=== PATIENT | female | born 1940 | race Caucasian/White ===

== ENCOUNTER → 2016-05-06 | Outpatient (CLI) | payer OTHER ==
[~2016-05-06] MED LIST: ASPCH81; ASPI81TA28 PO; ATOR-22 PO; ATOR10TA88 PO; CALC1TAB9 PO; CITA20TA9 PO; CITA40TA12 PO; CLOP1TAB54 PO; CYAN3INJ INJ; CYNI1000 INJ; FERR1TAB13 PO; FRRS300 PO; IMD/2 PO; IMDSR30 PO; INSDGI; INSDGIPEN SC; LEVO50TA PO; LEVO50TA6 PO; LOPE1TAB25 PO; LPT/20 PO; NITR0.4S UT; PEDICHW44 PO; PEDICHW50 PO; PRT40 PO; SENN-65 PO; TPRSR25 PO; TRMCR180 TD; VNTHFA/IN INH; [UNRECOGNIZED DRUG - MIXTURE] PO; [UNRECOGNIZED DRUG - OTHER] PO
--- NOTE | 2016-05-06 15:59 | MAMMOGRAPHY REPORT ---
BILATERAL DIGITAL SCREENING MAMMOGRAM WITH CAD: 05/06/2016 CLINICAL HISTORY: Routine screening. Patient has no complaints. TECHNIQUE: Bilateral CC and MLO views were obtained. Current study was also evaluated with a Comput er Aided Detection (CAD) system. COMPARISON: Comparison is made to exams dated: 01/05/2013 mammogram, 01/01/2011 mammogram, 01/05/20 12 mammogram, 12/26/2009 mammogram - [facility], 12/25/2008, and 12/23/2007. BREAST COMPOSITION: The tissue of both breasts is heterogeneously dense, which may obscure small ma sses. FINDINGS: There are diffuse moderate vascular calcifications, rodlike secretory calcifications and b enign coarse calcifications in the breasts. A 4 mm nodular asymmetry in the slightly medial posteri or right breast on the CC view is unchanged in size dating back to at least 12/21/2006, therefore li monica benign. No new suspicious mass, architectural distortion or cluster of microcalcifications is seen. IMPRESSION: ACR BI-RADS CATEGORY 1: NEGATIVE There is no mammographic evidence of malignancy. A 1 year screening mammogram is recommended. The p atient will receive written notification of the results. Approximately 10% of breast cancers are not detected with mammography. A negative mammographic repor t should not delay biopsy if a clinically suggestive mass is present. Suyapa Mcduffie M.D. ay/:05/06/2016 13:47:21 Bag Maker: Aye BENTON)(Hay), [facility] letter sent: Normal 1/2 BI-RADS Code: ACR BI-RADS Category 1: Negative
== END | disposition home or self-care (01) ==
LOC: C.MAMM 09:00
PROVIDERS: ATTEND Family Medicine
DX: Z12.31 Encounter for screening mammogram for malignant neoplasm of breast (principal)

== ENCOUNTER 2016-05-11 11:57 | Emergency (ER) | payer OTHER ==
[~2016-05-11] VITALS: Ht 162.6 cm; Wt 80.0 kg
[~2016-05-11 11:57] MED LIST changes: -ASPI81TA28 PO; -ATOR-22 PO; -ATOR10TA88 PO; -CALC1TAB9 PO; -CITA20TA9 PO; -CYNI1000 INJ; -FERR1TAB13 PO; -IMD/2 PO; -IMDSR30 PO; -INSDGIPEN SC; -LEVO50TA6 PO; -PEDICHW44 PO; -PRT40 PO; -TPRSR25 PO; -TRMCR180 TD; -[UNRECOGNIZED DRUG - OTHER] PO
[2016-05-11 12:05] VITALS: TEMP 36.5; Ht 162.6 cm; Wt 80.0 kg
[2016-05-11 12:38] LABS: BASO ABS # 0.03 K/uL (0-0.2); COMPLETE YES; HEMATOCRIT 35.1 % (37-47); IG% 0.3 %; LYMPH % 26.9 %; MEAN CELL VOLUME 91.4 fL (80-100); MEAN CORPUSCULAR HEMOGLOBIN 30.2 pg (25-34); MEAN PLATELET VOLUME 10.5 fL (7.4-10.4); MONO % 10.1 %; NEUT % 58.7 %; PLATELET COUNT 167 K/uL (130-400); RED BLOOD COUNT 3.84 M/uL (4.2-5.4); WHITE BLOOD COUNT 2.97 K/uL (4.8-10.8)
[2016-05-11] MEDS ORDERED: SODIUM CHLORIDE 0.9% 1000ML 1,000 ML IV STA (12:48)
[2016-05-11] MEDS ORDERED: SODIUM CHLORIDE 0.9% 1000ML 250 ML IV STA (12:48)
[2016-05-11 12:52] LABS: BUN/CREATININE RATIO 16.5 (10-20); CALCIUM 8.6 mg/dl (8.5-10.1); CREATININE 0.98 mg/dl (0.60-1.20); POTASSIUM 4.1 mmol/L (3.5-5.1)
[2016-05-11 13:02] LABS: ALB/GLOB RATIO 1.1 (0.9-2); CKMB/CK RATIO 0.4 (0-3.0); THYROID STIMULATING HORMONE 3.19 uIu/ml (0.300-4.500)
--- NOTE | 2016-05-11 13:17 | DIAGNOSTIC IMAGING REPORT ---
HEAD CT NONCONTRAST CT DOSE: 537.48 mGy.cm HISTORY: WEAKNESS TECHNIQUE: Multiaxial CT images of the head were performed without the use of intravenous contrast. Automated exposure control was utilized for this study. Comparison: Head CT 04/24/2015. Findings: The paranasal sinuses and mastoid air cells are clear. The calvarium and skull base are intact. There is no mass, hematoma, midline shift, acute infarct. White matter hypodensity is nonspecific but suggestive of microvascular ischemic change. The ventricles and sulci demonstrate mild age-related involutional changes. Impression: No significant change compared to the prior study. No acute intracranial abnormality. Electronically signed by: Carmine Adan M.D. 05/11/2016 1:16 PM Dictated Date/Time: 05/11/2016 1:14 PM
[2016-05-11] MEDS ORDERED: INSDGIPEN SC (13:26)
[2016-05-11] MEDS ORDERED: ASPI81TA28 PO (13:26)
[2016-05-11] MEDS ORDERED: CYNI1000 INJ (13:27)
--- NOTE | 2016-05-11 13:31 | DIAGNOSTIC IMAGING REPORT ---
CHEST ONE VIEW PORTABLE HISTORY: weakness COMPARISON: Chest 07/01/2015. FINDINGS: The lungs are clear. Cardiac silhouette is normal in size. No pleural effusions. No pneumothorax. IMPRESSION: No acute process. Electronically signed by: Carmine Adan M.D. 05/11/2016 1:29 PM Dictated Date/Time: 05/11/2016 1:28 PM
[2016-05-11 14:39] LABS: URINE APPEARANCE CLEAR (CLEAR); URINE BILIRUBIN NEG (NEG); URINE COLOR YELLOW; URINE EPITHELIAL CELL AUTO 20-30 /lpf (0-5); URINE NITRITE NEG (NEG); URINE PH 6.5 (4.5-7.5); URINE SPECIFIC GRAVITY 1.011 (1.000-1.030); UROBILINOGEN NEG (NEG); ZZUR CULT IF INDIC CLEAN CATCH NO
[2016-05-11 14:41] LABS: MANUAL MICROSCOPIC REQUIRED? NO; REVIEW REQ? NO
[2016-05-11 16:02] VITALS: BP 162/78; PULSE 66; O2SAT 99
--- NOTE | 2016-05-11 21:25 | EMERGENCY ROOM VISIT NOTE ---
History Report prepared by Gerry: Brunilda Hancock Under the Supervision of: Dr. Zuhair Ybarra M.D. First contact with patient: 12:39 Chief Complaint: STROKE SYMPTOMS Stated Complaint: POSSIBLE MINI STROKE A WEEK AGO, NOT FEELING WELL Nursing Triage Summary: "I think I had a mini stroke last week, I had them in the past. I have poor vision every day. I feel weak all over and lack of appetite." When asked what changed that she came today, pt pointed to her son. "I have just been blah this week and lightheaded. Denies being exposed to anyone diagnosed with the flu History of Present Illness The patient is a 75 year old female who presents to the Emergency Room with complaints of persistent lightheadedness starting 1 week [employer]. The patient states that over the last week she has felt generally weak with weakness in her hands which she states are hard to move. The patient states that she thinks she may have had another mini-stroke which she has had in the past. The patient states that she has heart problems and has coronary stents. The patient denies any chest pain and states she has never had any chest pain with her mini- strokes in the past. The patient states that she also has diabetes. The patient denies any vomiting, headache, recent falls, urinary symptoms, abdominal pain, or any recent changes in her medication. The patient states that she does have history of anemia and takes an iron supplement daily. 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 Review of Systems See HPI for pertinent positives & negatives. A total of 10 systems reviewed and were otherwise negative. Past Medical & Surgical Medical Problems: (1) Aortic root dilatation (2) Asthma (3) CAD (coronary artery disease) (4) Depression (5) DM type 2 (diabetes mellitus, type 2) (6) Dyslipidemia (7) Hypothyroidism (8) HOMERO (iron deficiency anemia) (9) Macular degeneration (10) MDS (myelodysplastic syndrome) (11) Mild aortic stenosis Surgical Problems: (1) History of angioplasty (2) History of arthroscopy of knee (3) History of arthroscopy of shoulder (4) History of cholecystectomy (5) History of gastric bypass (6) History of incisional hernia repair (7) History of partial hysterectomy (8) History of tonsillectomy (9) Repair arm tendon Old medical records were reviewed. Nurse's notes were reviewed and I agree with. Family History Diabetes mellitus FH: heart disease FHx: cancer FHx: gallbladder disease Hypertension Social History Smoking Status: Never Smoker Alcohol Use: none Drug Use: none Marital Status: Housing Status: lives with family Occupation Status: retired Current/Historical Medications Scheduled Aspirin (Aspirin Ec), 81 MG PO DAILY Atorvastatin (Atorvastatin Calcium), 20 MG PO DAILY Citalopram Hydrobromide (Celexa), 20 MG PO DAILY Clopidogrel Bisulfate (Plavix), 75 MG PO DAILY Cyanocobalamin (Cyanocobalamin), 1 ML INJ MONTHLY Ferrous Sulfate (Ferrous Sulfate), 1 TAB PO DAILY Insulin Glargine (Lantus Solostar), 16 UNITS SC DAILY Levothyroxine Sodium (Synthroid), 50 MCG PO DAILYBB Nitroglycerin (Nitrostat), 0.4 MG UT PRN Pediatric Multiple Vitamin W/ (Flintstones Chewable), 2 TAB PO QAM Senna/Docusate Sod (Senokot S), 2 TAB PO QAM Scheduled PRN Albuterol Hfa (Ventolin Hfa), 2 PUFFS INH Q4 PRN for SOB/Wheezing Loperamide Hcl (Loperamide Hcl), 1 TAB PO DAILY PRN for Diarrhea Allergies Coded Allergies: Adhesives (Verified Allergy, Unknown, ADHESIVE TAPE, 12/15/11) Physical Exam Vital Signs Date Time Temp Pulse Resp B/P Pulse Ox O2 Delivery O2 Flow Rate FiO2 05/11/16 16:02 66 18 162/78 99 05/11/16 14:08 78 18 157/88 97 Room Air 05/11/16 13:15 73 05/11/16 13:10 67 20 154/76 99 Room Air 05/11/16 12:05 36.5 66 16 124/72 98 Room Air Physical Exam General: Well developed well nourished non ill appearing older female in no acute distress, breathing comfortably on room air. Normal speech HEENT: Normal cephalic atraumatic. Pupils are equal round and reactive to light. Extraocular movements are intact. Oropharynx is pink with moist mucous membranes. No swelling of the mouth lips or tongue. Neck: Supple with a midline trachea. No meningeal signs or stiffness, no JVD or bruits. No Stridor. Chest: Clear to auscultation bilaterally. No wheezes or rhonchi. No increased work of breathing. Heart: regular rate and rhythm. Abdomen: Soft nontender, nondistended without rebound guarding or rigidity. Extremities: No cyanosis clubbing or edema. No calf tenderness or assymetry Spine/Back. Non tender to palpation. No CVA tenderness Skin: Good turgor without rashes. Neurologic exam: Cranial nerves two through 12 are intact. Motor and sensation are intact and symmetrical throughout. Medical Decision & Procedures ER Provider Diagnostic Interpretation: CT results as stated below per my review and radiologist interpretation: HEAD CT NONCONTRAST CT DOSE: 537.48 mGy.cm HISTORY: WEAKNESS TECHNIQUE: Multiaxial CT images of the head were performed without the use of intravenous contrast. Automated exposure control was utilized for this study. Comparison: Head CT 04/24/2015. Findings: The paranasal sinuses and mastoid air cells are clear. The calvarium and skull base are intact. There is no mass, hematoma, midline shift, acute infarct. White matter hypodensity is nonspecific but suggestive of microvascular ischemic change. The ventricles and sulci demonstrate mild age-related involutional changes. Impression: No significant change compared to the prior study. No acute intracranial abnormality. Electronically signed by: Carmine Adan M.D. 05/11/2016 1:16 PM Dictated Date/Time: 05/11/2016 1:14 PM X-ray results as stated below per interpretation by me and the radiologist: CHEST ONE VIEW PORTABLE HISTORY: weakness COMPARISON: Chest 07/01/2015. FINDINGS: The lungs are clear. Cardiac silhouette is normal in size. No pleural effusions. No pneumothorax. IMPRESSION: No acute process. Electronically signed by: Carmine Adan M.D. 05/11/2016 1:29 PM Dictated Date/Time: 05/11/2016 1:28 PM Laboratory Results 05/11/16 12:25 Red Blood Count 3.84, Mean Corpuscular Volume 91.4, Mean Corpuscular Hemoglobin 30.2, Mean Corpuscular Hemoglobin Concent 33.0, Mean Platelet Volume 10.5, Neutrophils (%) (Auto) 58.7, Lymphocytes (%) (Auto) 26.9, Monocytes (%) (Auto) 10.1, Eosinophils (%) (Auto) 3.0, Basophils (%) (Auto) 1.0, Neutrophils # (Auto ) 1.74, Lymphocytes # (Auto) 0.80, Monocytes # (Auto) 0.30, Eosinophils # (Auto ) 0.09, Basophils # (Auto) 0.03 05/11/16 12:25 Test 05/11/16 12:21 05/11/16 12:25 05/11/16 12:32 05/11/16 14:10 Bedside Glucose 207 mg/dl (70-90) White Blood Count 2.97 K/uL (4.8-10.8) Red Blood Count 3.84 M/uL (4.2-5.4) Hemoglobin 11.6 g/dL (12.0-16.0) Hematocrit 35.1 % (37-47) Mean Corpuscular Volume 91.4 fL (80-100) Mean Corpuscular Hemoglobin 30.2 pg (25-34) Mean Corpuscular Hemoglobin Concent 33.0 g/dl (32-36) Platelet Count 167 K/uL (130-400) Mean Platelet Volume 10.5 fL (7.4-10.4) Neutrophils (%) (Auto) 58.7 % Lymphocytes (%) (Auto) 26.9 % Monocytes (%) (Auto) 10.1 % Eosinophils (%) (Auto) 3.0 % Basophils (%) (Auto) 1.0 % Neutrophils # (Auto) 1.74 K/uL (1.4-6.5) Lymphocytes # (Auto) 0.80 K/uL (1.2-3.4) Monocytes # (Auto) 0.30 K/uL (0.11-0.59) Eosinophils # (Auto) 0.09 K/uL (0-0.5) Basophils # (Auto) 0.03 K/uL (0-0.2) RDW Standard Deviation 43.9 fL (36.4-46.3) RDW Coefficient of Variation 13.2 % (11.5-14.5) Immature Granulocyte % (Auto) 0.3 % Immature Granulocyte # (Auto) 0.01 K/uL (0.00-0.02) Anion Gap 6.0 mmol/L (3-11) Est Creatinine Clear Calc Drug Dose 49.2 ml/min Estimated GFR () 64.5 Estimated GFR (Non- 55.6 BUN/Creatinine Ratio 16.5 (10-20) Calcium Level 8.6 mg/dl (8.5-10.1) Total Bilirubin 0.3 mg/dl (0.2-1) Aspartate Amino Transf (AST/SGOT) 16 U/L (15-37) Alanine Aminotransferase (ALT/SGPT) 16 U/L (12-78) Alkaline Phosphatase 76 U/L (45-117) Total Creatine Kinase 314 U/L (26-192) Creatine Kinase MB 1.3 ng/ml (0.5-3.6) Creatine Kinase MB Ratio 0.4 (0-3.0) Troponin I < 0.015 ng/ml (0-0.045) Total Protein 6.6 gm/dl (6.4-8.2) Albumin 3.5 gm/dl (3.4-5.0) Globulin 3.1 gm/dl (2.5-4.0) Albumin/Globulin Ratio 1.1 (0.9-2) Thyroid Stimulating Hormone (TSH) 3.190 uIu/ml (0.300-4.500) Influenza Type A Antigen Neg for Influ A (NEG) Influenza Type B Antigen Neg for Influ B (NEG) Urine Color YELLOW Urine Appearance CLEAR (CLEAR) Urine pH 6.5 (4.5-7.5) Urine Specific [place] 1.011 (1.000-1.030) Urine Protein NEG (NEG) Urine Glucose (UA) NEG (NEG) Urine Ketones NEG (NEG) Urine Occult Blood NEG (NEG) Urine Nitrite NEG (NEG) Urine Bilirubin NEG (NEG) Urine Urobilinogen NEG (NEG) Urine Leukocyte Esterase SMALL (NEG) Urine WBC (Auto) 5-10 /hpf (0-5) Urine RBC (Auto) 0-4 /hpf (0-4) Urine Hyaline Casts (Auto) 0 /lpf (0-5) Urine Epithelial Cells (Auto) 20-30 /lpf (0-5) Urine Bacteria (Auto) NEG (NEG) Laboratory studies as stated above per my review. Medications Administered Medications (Trade) Dose Ordered Sig/Arlin Route Start Time Stop Time Status Last Admin Dose Admin Sodium Chloride 250 ml @ 999 mls/hr Q16M STAT IV 05/11/16 12:48 05/11/16 13:03 DC 05/11/16 12:55 999 MLS/HR Sodium Chloride (Nss 1000ml) 1,000 ml @ 100 mls/hr Q10H STAT IV 05/11/16 12:48 05/11/16 16:52 DC 05/11/16 13:21 100 MLS/HR ECG Indication: weakness Rate (beats per minute): 62 Rhythm: sinus with SA Findings: 1st degree AV block, other (Non speicfiic intraventricular delay) Comparison ECG Date: July 02, 2015 Change: no significant change ED Course 1241: Past medical records reviewed. The patient was evaluated in room B3B, and a complete history and physical examination were performed. 1248: Ordered Sodium Chloride 1,000 ml @ 100 mls/hr IV, Sodium Chloride 250 ml @ 999 mls/hr IV 1324: I reevaluated the patient and she was resting comfortably. 1510: Upon reevaluation, the patient is resting comfortably. I discussed the results and treatment plan with Her. She verbalized agreement of the treatment plan. The patient was discharged home. Medical Decision Differentials include, but are not limited to; CVA, acute coronary syndrome, arrhythmia, diabetic emergency, influenza, UTI, electrolyte or metabolic abnormality. This patient comes in as described above. She was placed in room B3. She is here for treatment and evaluation of generalized not feeling well for about a week. She has no focal symptoms. She has a normal neurologic exam. She is well-appearing and has stable vital signs. She's had no chest pain or shortness breath. She's had no bowel or bladder problems. She has nothing to suggest infection or sepsis. IV access established was gently hydrated . She had extensive workup done including imaging blood work and urine. She has nothing to suggest acute cardiac event. Her EKG is unchanged . Her symptoms are atypical for cardiac disease and she has no elevation of her troponin. She' s no acute electrolyte or metabolic abnormalities. She's not significantly anemic. She's had nothing to suggest a UTI. She has nothing to suggest CVA. Influenza was negative. It could be a viral illness. I talked about the patient and her son at length and she strongly desires to go home. I think this is reasonable with close follow-up with her doctor. She should rest and drink plenty of fluids. Return if: Fever, numbness or weakness that is different or focal, chest pain, shortness of breath, fever chills, any new problems concerns. She was happy with the plan and discharged to home. Impression Primary Impression: Weakness Scribe Attestation The scribe's documentation has been prepared under my direction and personally reviewed by me in its entirety. I confirm that the note above accurately reflects all work, treatment, procedures, and medical decision making performed by me. Departure Information Dispostion Home / Self-Care Referrals Luis Pichardo M.D. (PCP) Forms HOME CARE DOCUMENTATION FORM, IMPORTANT VISIT INFORMATION Patient Instructions My [facility] Additional Instructions Rest Drink plenty of fluids REturn if: worsening of symptoms, increasing pain, shortness of breath, any new problems or concerns Follow-up with your doctor tommorrow for recheck
[2016-11-22] MEDS ORDERED: PRT40 PO (13:46)
[2016-11-22] MEDS ORDERED: TPRSR25 PO (13:46)
[2016-11-22] MEDS ORDERED: IMDSR30 PO (13:46)
[2016-11-22] MEDS ORDERED: TRMCR180 TD (15:13)
== END 2016-05-11 16:14 | disposition home or self-care (01) ==
LOC: C.EDB 11:59
DX: R53.1 Weakness (principal); J45.909 Unspecified asthma, uncomplicated; I25.10 Atherosclerotic heart disease of native coronary artery without angina pectoris; E11.9 Type 2 diabetes mellitus without complications; E78.5 Hyperlipidemia, unspecified; E03.9 Hypothyroidism, unspecified; D50.9 Iron deficiency anemia, unspecified; H35.30 Unspecified macular degeneration; D46.9 Myelodysplastic syndrome, unspecified; I35.0 Nonrheumatic aortic (valve) stenosis; Z83.3 Family history of diabetes mellitus; Z80.9 Family history of malignant neoplasm, unspecified; Z83.79 Family history of other diseases of the digestive system; Z82.49 Family history of ischemic heart disease and other diseases of the circulatory system; Z79.82 Long term (current) use of aspirin; Z79.02 Long term (current) use of antithrombotics/antiplatelets; Z79.4 Long term (current) use of insulin; Z79.899 Other long term (current) drug therapy

== ENCOUNTER → 2016-06-03 | Outpatient (CLI) | payer OTHER ==
[~2016-06-03] MED LIST changes: -ASPCH81; +ASPI81TA28 PO; +ATOR-22 PO; +ATOR10TA88 PO; +CALC1TAB9 PO; +CITA20TA9 PO; -CYAN3INJ INJ; +CYNI1000 INJ; +FERR1TAB13 PO; +IMD/2 PO; +IMDSR30 PO; -INSDGI; +INSDGIPEN SC; +LEVO50TA6 PO; +PEDICHW44 PO; +PRT40 PO; +TPRSR25 PO; +TRMCR180 TD; -[UNRECOGNIZED DRUG - MIXTURE] PO; +[UNRECOGNIZED DRUG - OTHER] PO
[2016-06-03 12:39] LABS: ALKALINE PHOSPHATASE 81 U/L (45-117); ALT/SGPT 17 U/L (12-78); AST/SGOT 18 U/L (15-37); BLOOD UREA NITROGEN 21 mg/dl (7-18); CARBON DIOXIDE 28 mmol/L (21-32); CHLORIDE 109 mmol/L (98-107); CREATININE 0.95 mg/dl (0.60-1.20); GLUCOSE 81 mg/dl (70-99); HDL CHOLESTEROL 66 mg/dl; SODIUM 142 mmol/L (136-145)
[2016-06-03 12:40] LABS: ALB/GLOB RATIO 1.1 (0.9-2); CHOLESTEROL 123 mg/dl (0-200); CHOLESTEROL/HDL RATIO 1.9; LDL CHOLESTEROL CALCULATED 43 mg/dl; TRIGLYCERIDES 70 mg/dl (0-150); VERY LOW DENSITY LIPOPROT CALC 14 mg/dl
[2016-06-03 12:55] LABS: ESTIMATED AVERAGE GLUCOSE 171 mg/dl; HA1C FLAG Normal (Normal)
== END | disposition home or self-care (01) ==
LOC: C.LABPVFM 08:55
PROVIDERS: ATTEND Family Medicine
DX: E11.9 Type 2 diabetes mellitus without complications (principal)

== ENCOUNTER → 2016-10-18 | Outpatient (CLI) | payer OTHER ==
[2016-10-18 13:14] LABS: HEMATOCRIT 35.1 % (37-47); MEAN CELL VOLUME 91.9 fL (80-100); MEAN CORPUSCULAR HEMOGLOBIN 28.8 pg (25-34); MEAN CORPUSCULAR HGB CONC 31.3 g/dl (32-36); MEAN PLATELET VOLUME 10.4 fL (7.4-10.4); PLATELET COUNT 189 K/uL (130-400); RED BLOOD COUNT 3.82 M/uL (4.2-5.4); WHITE BLOOD COUNT 3.85 K/uL (4.8-10.8)
[2016-10-18 13:22] LABS: ESTIMATED AVERAGE GLUCOSE 154 mg/dl; HA1C FLAG Normal (Normal)
[2016-10-18 13:28] LABS: ALT/SGPT 17 U/L (12-78); BLOOD UREA NITROGEN 18 mg/dl (7-18); BUN/CREATININE RATIO 17.9 (10-20); CARBON DIOXIDE 30 mmol/L (21-32); CHLORIDE 103 mmol/L (98-107); CHOLESTEROL 136 mg/dl (0-200); GLUCOSE 82 mg/dl (70-99); POTASSIUM 3.8 mmol/L (3.5-5.1); SODIUM 138 mmol/L (136-145); TRIGLYCERIDES 67 mg/dl (0-150); VERY LOW DENSITY LIPOPROT CALC 13 mg/dl
[2016-10-18 13:32] LABS: ALB/GLOB RATIO 1.1 (0.9-2); ALKALINE PHOSPHATASE 88 U/L (45-117); AST/SGOT 22 U/L (15-37); CHOLESTEROL/HDL RATIO 2.2; FERRITIN 90.5 ng/ml (8.0-388.0); HDL CHOLESTEROL 62 mg/dl; LDL CHOLESTEROL CALCULATED 61 mg/dl; TOTAL IRON BINDING CAPACITY 272 mcg/dl (250-450)
== END | disposition home or self-care (01) ==
LOC: C.LABPVFM 08:03
PROVIDERS: ATTEND Family Medicine
DX: E11.9 Type 2 diabetes mellitus without complications (principal); D50.9 Iron deficiency anemia, unspecified; Z13.6 Encounter for screening for cardiovascular disorders

== ENCOUNTER 2016-11-19 09:18 | Inpatient (IN) | payer OTHER ==
[~2016-11-19] VITALS: Ht 160 cm; Wt 81.9 kg
[~2016-11-19 09:18] MED LIST changes: -ATOR-22 PO; -ATOR10TA88 PO; -CALC1TAB9 PO; -CITA20TA9 PO; -FERR1TAB13 PO; -IMD/2 PO; -IMDSR30 PO; -LEVO50TA6 PO; -PEDICHW44 PO; -PRT40 PO; -TPRSR25 PO; -TRMCR180 TD; -[UNRECOGNIZED DRUG - OTHER] PO
[2016-11-19] MEDS ORDERED: ASPIRIN 81 MG CHEW PO STA (09:58)
[2016-11-19] MEDS: NITROGLYCERIN 0.4 MG SL PER TAB CHARGE SL PRN ×2 (10:09→10:21)
--- NOTE | 2016-11-19 10:13 | DIAGNOSTIC IMAGING REPORT ---
CHEST ONE VIEW PORTABLE CLINICAL HISTORY: Chest Pain dyspnea COMPARISON STUDY: 05/11/2016 FINDINGS: The bones soft tissues and hemidiaphragms are normal. The cardiomediastinal silhouette is normal. The lungs are clear. The pulmonary vasculature is normal. IMPRESSION: Negative chest. The above report was generated using voice recognition software. It may contain grammatical, syntax or spelling errors. Electronically signed by: Gamaliel Garay M.D. 11/19/2016 10:12 AM Dictated Date/Time: 11/19/2016 10:11 AM
[2016-11-19 10:23] LABS: BASO % 0.6 %; BASO ABS # 0.02 K/uL (0-0.2); COMPLETE YES; EOS % 1.9 %; HEMATOCRIT 33.6 % (37-47); IG% 0.3 %; LYMPH ABS # 0.78 K/uL (1.2-3.4); MEAN CELL VOLUME 91.8 fL (80-100); MEAN CORPUSCULAR HEMOGLOBIN 29.2 pg (25-34); MEAN CORPUSCULAR HGB CONC 31.8 g/dl (32-36); MEAN PLATELET VOLUME 9.9 fL (7.4-10.4); MONO % 9.3 %; NEUT % 62.9 %; PLATELET COUNT 156 K/uL (130-400); RED BLOOD COUNT 3.66 M/uL (4.2-5.4); WHITE BLOOD COUNT 3.12 K/uL (4.8-10.8)
[2016-11-19] MEDS ORDERED: [UNRECOGNIZED DRUG - OTHER] PO (10:51)
[2016-11-19 10:53] LABS: BLOOD UREA NITROGEN 20 mg/dl (7-18); CALCIUM 9.1 mg/dl (8.5-10.1); CARBON DIOXIDE 29 mmol/L (21-32); CHLORIDE 109 mmol/L (98-107); CREATININE 0.87 mg/dl (0.60-1.20); GLUCOSE 155 mg/dl (70-99); SODIUM 142 mmol/L (136-145)
[2016-11-19] MEDS ORDERED: FERR1TAB13 PO (10:56)
[2016-11-19] MEDS ORDERED: CITA20TA9 PO (10:56)
[2016-11-19] MEDS ORDERED: ATOR-22 PO (10:56)
[2016-11-19] MEDS ORDERED: LEVO50TA6 PO (10:56)
[2016-11-19 10:58] LABS: CKMB/CK RATIO 0.4 (0-3.0)
[2016-11-19] MEDS ORDERED: OPTIRAY 320 IV PRN (11:15)
[2016-11-19 11:37] VITALS: BP 120/63; PULSE 61; TEMP 36.8; O2SAT 100; Ht 160 cm; Wt 81.9 kg
--- NOTE | 2016-11-19 11:54 | DIAGNOSTIC IMAGING REPORT ---
CHEST CTA for PULMONARY ARTERIES CT DOSE: 279.79 mGy.cm HISTORY: Mid chest pain. Short of breath. TECHNIQUE: Multiaxial CT images of the chest were performed following the intravenous administration of contrast to evaluate the pulmonary arteries. Maximal intensity projection images were also obtained. A dose lowering technique was utilized adhering to the principles of ALARA. COMPARISON STUDY: Chest 11/19/2016. Chest CTA 04/09/2012. FINDINGS: The ascending thoracic aorta measures up to 4.2 cm in diameter, unchanged. Study is an adequate to evaluate for a dissection due to the lack of contrast within the aorta. Focal mild stenosis within the proximal right subclavian artery due to the calcified plaque. This remains unchanged. No filling defects within the pulmonary arteries to suggest pulmonary embolus. The heart is mildly enlarged. Mitral annulus calcifications. Postoperative changes at the esophagogastric junction there is persistent moderate dilatation of the esophagus which is fluid-filled. This has slightly progressed. Visualized liver and spleen are unremarkable. No mediastinal or hilar lymphadenopathy. No pneumothorax. The central airways are patent. The lungs are essentially clear. IMPRESSION: 1. No evidence for pulmonary embolus. 2. No focal lung consolidations. 3. Postsurgical changes at the esophagogastric junction with a fluid-filled and distended esophagus. This has slightly progressed. 4. 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 Electronically signed by: Carmine Adan M.D. 11/19/2016 11:53 AM Dictated Date/Time: 11/19/2016 11:27 AM
[2016-11-19] MEDS ORDERED: NITROGLYCERIN 0.4 MG SL PER TAB CHARGE SL PRN (12:15)
[2016-11-19] MEDS ORDERED: ACETAMINOPHEN 325 MG TAB PO PRN (12:15)
[2016-11-19] MEDS ORDERED: ONDANSETRON INJ 2 MG/ML 2 ML VIAL IV PRN (12:15)
[2016-11-19] MEDS ORDERED: FENTANYL CITRATE INJ 50 MCG/1 ML 2 ML VIAL IV STA (12:18)
[2016-11-19] MEDS ORDERED: GLUCAGON FOR INJ 1 MG VIAL SQ PRN (13:00)
[2016-11-19] MEDS ORDERED: GI COCKTAIL PO ONE (13:00)
[2016-11-19] MEDS ORDERED: DEXTROSE 50% 50 ML SYR IV PRN (13:00)
[2016-11-19] MEDS ORDERED: GLUCOSE 10 TABS/TUBE PO PRN (13:00)
[2016-11-19] MEDS ORDERED: GLUCOSE 40% GEL 15 GM TUBE PO PRN (13:00)
[2016-11-19] MEDS ORDERED: CITA40TA12 PO (13:05)
[2016-11-19] MEDS ORDERED: ATOR10TA88 PO (13:05)
[2016-11-19] MEDS ORDERED: IMD/2 PO (13:05)
[2016-11-19] MEDS ORDERED: CALC1TAB9 PO (13:05)
[2016-11-19] MEDS ORDERED: PEDICHW44 PO (13:05)
[2016-11-19] MEDS ORDERED: IV FLUIDS COMPLETED PRN (14:00)
--- NOTE | 2016-11-19 14:00 | Gastrointestinal Consultation ---
Gastrointestinal Consultation Date of Consultation: Nov 19, 2016 Attending Physician: Bob Hackett Consulting Physician: Kendell Simms Reason for Consultation: Dilated fluid filled esophagus History of Present Illness Patient is a 75 year old female w PMHx of CAD s/p RCA stent placement in 1995, atherectomy and RCA stent in 2011, AZALIA to mid LAD in 2011, chronic diastolic dysfunction, mild , mild mitral stenosis, HTN, hyperlipidemia, DM II, hypothyroidism, iron deficiency anemia, mac degeneration, MDS, who was referred by her [employer] Roofer Helper (Dr. Luis Pichardo) for evaluation of chest pain, and SOB. She had been having mid pressure like chest pain for 3-4 days, associated w DAVILA , and dyspnea at rest as well. Denies radiation of the pain. Denies any associated diaphoresis, palpitation, light headedness, dizziness. States was waiting to see Dr. Pichardo today, when EKG done in office was noted to be grossly unremarkable she was referred to ED for further eval. VS stable. Her labs showed anemia w Hgb 10.6 which is close to her baseline. CMP showed elevated total CK, negative troponin, normal CK-MB. D dimer elevated. CXR negative. Chest/Thorax CTA: 1. No evidence for pulmonary embolus. 2. No focal lung consolidations. 3. Postsurgical changes at the esophagogastric junction with a fluid-filled and distended esophagus. This has slightly progressed. 4. 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 Pt has hx of gastric bypass over 11 yrs ago, denies any hx of complications from the surgery nor any hx of PUD, GI bleeding. Pt denies any s/s of dysphagia , odynophagia, n/v, reflux symptoms, abd pain, changes in her BM habits. Last meal this AM - solids. Last BM also this AM. Past Medical/Surgical History Medical Problems: (1) Closed head injury Status: Acute Past Medical History: See above Past Surgical History: See HPI; also hx of arthroscopy of knee, shoulder, cholecystectomy, incisional hernia repair, partial hysterectomy, tonsillectomy, arm tendon repair. Family History Diabetes mellitus FH: heart disease FHx: cancer FHx: gallbladder disease Hypertension Social History Smoking Status: Never Smoker Alcohol Use: none Drug Use: none Marital Status: Housing Status: lives with family Occupation Status: retired Allergies Coded Allergies: Adhesives (Verified Allergy, Unknown, ADHESIVE TAPE, 11/19/16) Current Medications Home Meds and Scripts Medications Dose Route/Sig Max Daily Dose Days Date Category Dose Instructions Imodium (Loperamide HCl) 2 Mg Cap 2 Mg PO UD PRN 11/19/16 Reported Flintstones Plus Iron (Pediatric Multiple Vitamins W/) 1 Chw Chw 1 Tab PO DAILY 11/19/16 Reported Citracal + D3 Maximum (Calcium Citrate-Vitamin D) 1 Tab Tab 2 Tab PO BID 11/19/16 Reported Celexa (Citalopram Hydrobromide) 40 Mg Tab 1 Tab PO DAILY 30 11/19/16 Reported Lipitor (Atorvastatin Calcium) 10 Mg Tab 1 Tab PO DAILY 30 11/19/16 Reported Kp Ferrous Sulfate (Ferrous Sulfate) 325 Mg Tab 1 Tab PO QAM 11/19/16 Reported Levothyroxine Sodium 50 Mcg Tab 1 Tab PO DAILYBB 90 11/19/16 Reported Cyanocobalamin 1,000 Mcg/Ml Inj 1 Ml INJ MONTHLY 05/11/16 Reported PT TAKES 1ST DAY OF THE MONTH Lantus Solostar (Insulin Glargine) 100 Unit/Ml Inj 16 Units SC QAM 05/11/16 Reported Aspirin Ec (Aspirin) 81 Mg Tab 81 Mg PO QAM 05/11/16 Reported Plavix (Clopidogrel Bisulfate) 75 Mg Tab 75 Mg PO DAILY 04/09/12 Reported Nitrostat (Nitroglycerin) 0.4 Mg Sub 0.4 Mg UT PRN 07/31/11 Reported 1 tab q 5 min prn cp.can have up to 3 doses within 15 min. Senokot S (Senna/Docusate Sodium) 1 Tab Tab 2 Tab PO BID 08/26/08 Reported Review of Systems Constitutional: No fever, No chills ENT: No trouble swallowing, No pain on swallowing Respiratory: + dyspnea on exertion, + dyspnea at rest, No cough Cardiac: + chest pain Abdomen: No pain, No nausea, No vomiting, No diarrhea, No constipation, No GI bleeding, No dysphagia, No odynophagia Physical Exam Date Time Temp Pulse Resp B/P (MAP) Pulse Ox O2 Delivery O2 Flow Rate FiO2 11/19/16 13:39 55 146/79 100 Room Air 11/19/16 12:17 60 11/19/16 11:39 58 20 143/87 100 Nasal Cannula 2.0 11/19/16 11:37 36.8 61 20 120/63 100 Nasal Cannula 2.0 11/19/16 10:32 64 20 138/63 97 Nasal Cannula 2.0 11/19/16 10:23 62 20 120/63 95 11/19/16 10:19 96 Room Air 11/19/16 10:09 60 20 156/69 99 Room Air 11/19/16 09:36 66 11/19/16 09:23 36.8 65 18 129/68 99 Room Air General Appearance: WD/WN, no apparent distress Eyes: normal inspection, PERRL, EOMI Neck: supple, no JVD, trachea midline Respiratory/Chest: normal breath sounds, no respiratory distress, no accessory muscle use, + pertinent finding (TTP mid sternum area ) Cardiovascular: regular rate, rhythm, no gallop, no murmur Abdomen: normal bowel sounds, non tender, soft Extremities: normal inspection, no pedal edema, no calf tenderness Neurologic/Psych: alert, normal mood/affect, oriented x 3 Skin: normal color, no jaundice, no rash Laboratory Results Last 24 Hours Test 11/19/16 10:08 White Blood Count 3.12 K/uL Red Blood Count 3.66 M/uL Hemoglobin 10.7 g/dL Hematocrit 33.6 % Mean Corpuscular Volume 91.8 fL Mean Corpuscular Hemoglobin 29.2 pg Mean Corpuscular Hemoglobin Concent 31.8 g/dl Platelet Count 156 K/uL Mean Platelet Volume 9.9 fL Neutrophils (%) (Auto) 62.9 % Lymphocytes (%) (Auto) 25.0 % Monocytes (%) (Auto) 9.3 % Eosinophils (%) (Auto) 1.9 % Basophils (%) (Auto) 0.6 % Neutrophils # (Auto) 1.96 K/uL Lymphocytes # (Auto) 0.78 K/uL Monocytes # (Auto) 0.29 K/uL Eosinophils # (Auto) 0.06 K/uL Basophils # (Auto) 0.02 K/uL RDW Standard Deviation 45.4 fL RDW Coefficient of Variation 13.6 % Immature Granulocyte % (Auto) 0.3 % Immature Granulocyte # (Auto) 0.01 K/uL D-Dimer 1160 ug/L FEU Sodium Level 142 mmol/L Potassium Level 4.0 mmol/L Chloride Level 109 mmol/L Carbon Dioxide Level 29 mmol/L Anion Gap 4.0 mmol/L Blood Urea Nitrogen 20 mg/dl Creatinine 0.87 mg/dl Est Creatinine Clear Calc Drug Dose 55.6 ml/min Estimated GFR () 74.5 Estimated GFR (Non- 64.3 BUN/Creatinine Ratio 23.0 Random Glucose 155 mg/dl Calcium Level 9.1 mg/dl Total Creatine Kinase 313 U/L Creatine Kinase MB 1.1 ng/ml Creatine Kinase MB Ratio 0.4 Troponin I < 0.015 ng/ml Impression Patient is a 75 year old female here w chest pain associated w DAVILA, and dyspnea at rest. EKG, troponin, CK MB normal though total CK and D dimer elevated. CXR negative, chest/thorax CT showed distended, fluid filled esophagus however she is w/o s/s of dysphagia, odynophagia, reflux, n/v, abd pain. Plan - If she has any N/V would recommend NGT placement - Start Protonix 40mg BID - Defer workup of CP, Dyspnea workup to primary team. Less likely etiology of symptom related to the fluid filled esophagus. - Would consider barium swallow vs outpt esophageal manometry eval in the future to r/o dysmotility issues. Addendum: Reviewed Chest/Thorax CTA w Dr. Simms and Dr. Murdock (Radiologist). Will plan to keep pt NPO after midnight, depending on her symptoms tomorrow will plan either barium swallow or EGD evaluation. I have seen, examined and agree with the plan as outlined by TANGELA Naidu as above. -exam reveals soft abd -No signs of dysphagia or esophageal dysfunction, her chest pain shortness of breath at rest would not be explained from esophageal disorder
[2016-11-19 14:39] VITALS: BP 162/94; PULSE 62; TEMP 36.5; O2SAT 97
[2016-11-19 16:00] VITALS: O2SAT 97
[2016-11-19] MEDS ORDERED: ALUMINUM/MAGNESIUM SUSP 18 ML, LIDOCAINE HCL 2% VISCOUS SOLN 6 ML, BARCODE IDENTIFIER 1 EA PO ONE ×2 (16:00)
[2016-11-19 16:34] LABS: PROTHROMBIN TIME (PATIENT) 10.8 SECONDS (9.0-12.0)
--- NOTE | 2016-11-19 16:42 | EMERGENCY ROOM VISIT NOTE ---
History Report prepared by Gerry: Sowmya Young Under the Supervision of: Dr. Bob Hackett D.O. First contact with patient: 09:30 Chief Complaint: SHORTNESS OF BREATH Stated Complaint: SOB, CHEST PAINS History of Present Illness The patient is a 75 year old female who presents to the Emergency Room with complaints of constant chest pains and shortness of breath for the past 4 days. She describes her pain as a "pressure" in her chest and rates her pain as a 6/ 10 in severity. Her pain is constant, but worsened with exertion. It does not improve with rest. She went to her maintenance coordinator's office this morning with her symptoms and was sent to the ED for further evaluation. She did not take nitro. She does take a daily aspirin. Pt denies headache, change in vision, fevers, nausea, vomiting, diarrhea, pain with urination, and melena. She denies any new cough. The patient has a history of PTCA and STEMI of the RCA, repeat intervention in 2011. Cardiac stent placed in December 2011, mid-left LAD. Chronic diastolic dysfunction, preserved LV, and mild . The patient states that her current symptoms do not feel similar to her previous MIs. Source of History: patient Onset: 4 days ago Position: chest Symptom Intensity: 6/10 Quality: pressure Timing: constant Modifying Factors (Worsening): exertion Associated Symptoms: No fevers, No headache, No cough, No nausea, No vomiting, No melena, No diarrhea, No urinary symptoms Review of Systems See HPI for pertinent positives & negatives. A total of 10 systems reviewed and were otherwise negative. Past Medical & Surgical Medical Problems: (1) Aortic root dilatation (2) Asthma (3) CAD (coronary artery disease) (4) Chest pain (5) Depression (6) DM type 2 (diabetes mellitus, type 2) (7) Dyslipidemia (8) Hypothyroidism (9) HOMERO (iron deficiency anemia) (10) Macular degeneration (11) MDS (myelodysplastic syndrome) (12) Mild aortic stenosis Surgical Problems: (1) History of angioplasty (2) History of arthroscopy of knee (3) History of arthroscopy of shoulder (4) History of cholecystectomy (5) History of gastric bypass (6) History of incisional hernia repair (7) History of partial hysterectomy (8) History of tonsillectomy (9) Repair arm tendon Family History Diabetes mellitus FH: heart disease FHx: cancer FHx: gallbladder disease Hypertension Social History Smoking Status: Never Smoker Alcohol Use: none Drug Use: none Marital Status: Housing Status: lives with family Occupation Status: retired Current/Historical Medications Scheduled Aspirin (Aspirin Ec), 81 MG PO QAM Atorvastatin (Lipitor), 1 TAB PO DAILY Calcium Citrate-Vitamin D (Citracal + D3 Maximum), 2 TAB PO BID Citalopram Hydrobromide (Celexa), 1 TAB PO DAILY Clopidogrel Bisulfate (Plavix), 75 MG PO DAILY Cyanocobalamin (Cyanocobalamin), 1 ML INJ MONTHLY Ferrous Sulfate (Kp Ferrous Sulfate), 1 TAB PO QAM Insulin Glargine (Lantus Solostar), 16 UNITS SC QAM Levothyroxine Sodium (Levothyroxine Sodium), 1 TAB PO DAILYBB Nitroglycerin (Nitrostat), 0.4 MG UT PRN Pediatric Multiple Vitamins W/ (Flintstones Plus Iron), 1 TAB PO DAILY Senna/Docusate Sod (Senokot S), 2 TAB PO BID Scheduled PRN Loperamide Hcl (Imodium), 2 MG PO UD PRN for Diarrhea Allergies Coded Allergies: Adhesives (Verified Allergy, Unknown, ADHESIVE TAPE, 11/19/16) Physical Exam Vital Signs Date Time Temp Pulse Resp B/P (MAP) Pulse Ox O2 Delivery O2 Flow Rate FiO2 11/19/16 11:39 58 20 143/87 100 Nasal Cannula 2.0 11/19/16 11:37 36.8 61 20 120/63 100 Nasal Cannula 2.0 11/19/16 10:32 64 20 138/63 97 Nasal Cannula 2.0 11/19/16 10:23 62 20 120/63 95 11/19/16 10:19 96 Room Air 11/19/16 10:09 60 20 156/69 99 Room Air 11/19/16 09:36 66 11/19/16 09:23 36.8 65 18 129/68 99 Room Air Physical Exam GENERAL: alert, sitting up in bed, disheveled, well appearing, well nourished, no distress, non-toxic EYE EXAM: normal conjunctiva OROPHARYNX: no exudate, no erythema, lips, buccal mucosa, and tongue normal and mucous membranes are moist NECK: supple, no nuchal rigidity, no adenopathy, non-tender LUNGS: Clear to auscultation. Normal chest wall mechanics HEART: positive systolic ejection murmur, S1 normal and S2 normal ABDOMEN: abdomen soft, non-tender, normo-active bowel sounds, no masses, no rebound or guarding. BACK: Back is symmetrical on inspection and there is no deformity, no midline tenderness, no CVA tenderness. SKIN: no rashes and no bruising UPPER EXTREMITIES: upper extremities are grossly normal. LOWER EXTREMITIES: Faint pitting edema bilaterally. NEURO EXAM: Normal sensorium, cranial nerves II-XII grossly intact, normal speech, no gross weakness of arms, no gross weakness of legs. Medical Decision & Procedures ER Provider Diagnostic Interpretation: Radiology results as stated below per my review and the radiologist's interpretation: CHEST ONE VIEW PORTABLE CLINICAL HISTORY: Chest Pain dyspnea COMPARISON STUDY: 05/11/2016 FINDINGS: The bones soft tissues and hemidiaphragms are normal. The cardiomediastinal silhouette is normal. The lungs are clear. The pulmonary vasculature is normal. IMPRESSION: Negative chest. The above report was generated using voice recognition software. It may contain grammatical, syntax or spelling errors. Electronically signed by: Gamaliel Garay M.D. 11/19/2016 10:12 AM Dictated Date/Time: 11/19/2016 10:11 AM CHEST CTA for PULMONARY ARTERIES CT DOSE: 279.79 mGy.cm HISTORY: Mid chest pain. Short of breath. TECHNIQUE: Multiaxial CT images of the chest were performed following the intravenous administration of contrast to evaluate the pulmonary arteries. Maximal intensity projection images were also obtained. A dose lowering technique was utilized adhering to the principles of ALARA. COMPARISON STUDY: Chest 11/19/2016. Chest CTA 04/09/2012. FINDINGS: The ascending thoracic aorta measures up to 4.2 cm in diameter, unchanged. Study is an adequate to evaluate for a dissection due to the lack of contrast within the aorta. Focal mild stenosis within the proximal right subclavian artery due to the calcified plaque. This remains unchanged. No filling defects within the pulmonary arteries to suggest pulmonary embolus. The heart is mildly enlarged. Mitral annulus calcifications. Postoperative changes at the esophagogastric junction there is persistent moderate dilatation of the esophagus which is fluid-filled. This has slightly progressed. Visualized liver and spleen are unremarkable. No mediastinal or hilar lymphadenopathy. No pneumothorax. The central airways are patent. The lungs are essentially clear. IMPRESSION: 1. No evidence for pulmonary embolus. 2. No focal lung consolidations. 3. Postsurgical changes at the esophagogastric junction with a fluid-filled and distended esophagus. This has slightly progressed. 4. 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 Electronically signed by: Carmine Adan M.D. 11/19/2016 11:53 AM Dictated Date/Time: 11/19/2016 11:27 AM Laboratory Results 11/19/16 10:08 Red Blood Count 3.66, Mean Corpuscular Volume 91.8, Mean Corpuscular Hemoglobin 29.2, Mean Corpuscular Hemoglobin Concent 31.8, Mean Platelet Volume 9.9, Neutrophils (%) (Auto) 62.9, Lymphocytes (%) (Auto) 25.0, Monocytes (%) (Auto) 9.3, Eosinophils (%) (Auto) 1.9, Basophils (%) (Auto) 0.6, Neutrophils # (Auto) 1.96, Lymphocytes # (Auto) 0.78, Monocytes # (Auto) 0.29, Eosinophils # (Auto) 0.06, Basophils # (Auto) 0.02 11/19/16 10:08 Test 11/19/16 10:08 White Blood Count 3.12 K/uL (4.8-10.8) Red Blood Count 3.66 M/uL (4.2-5.4) Hemoglobin 10.7 g/dL (12.0-16.0) Hematocrit 33.6 % (37-47) Mean Corpuscular Volume 91.8 fL (80-100) Mean Corpuscular Hemoglobin 29.2 pg (25-34) Mean Corpuscular Hemoglobin Concent 31.8 g/dl (32-36) Platelet Count 156 K/uL (130-400) Mean Platelet Volume 9.9 fL (7.4-10.4) Neutrophils (%) (Auto) 62.9 % Lymphocytes (%) (Auto) 25.0 % Monocytes (%) (Auto) 9.3 % Eosinophils (%) (Auto) 1.9 % Basophils (%) (Auto) 0.6 % Neutrophils # (Auto) 1.96 K/uL (1.4-6.5) Lymphocytes # (Auto) 0.78 K/uL (1.2-3.4) Monocytes # (Auto) 0.29 K/uL (0.11-0.59) Eosinophils # (Auto) 0.06 K/uL (0-0.5) Basophils # (Auto) 0.02 K/uL (0-0.2) RDW Standard Deviation 45.4 fL (36.4-46.3) RDW Coefficient of Variation 13.6 % (11.5-14.5) Immature Granulocyte % (Auto) 0.3 % Immature Granulocyte # (Auto) 0.01 K/uL (0.00-0.02) D-Dimer 1160 ug/L FEU (0-500) Anion Gap 4.0 mmol/L (3-11) Est Creatinine Clear Calc Drug Dose 55.6 ml/min Estimated GFR () 74.5 Estimated GFR (Non- 64.3 BUN/Creatinine Ratio 23.0 (10-20) Calcium Level 9.1 mg/dl (8.5-10.1) Laboratory results per my review. Medications Administered Medications (Trade) Dose Ordered Sig/Arlin Route Start Time Stop Time Status Last Admin Dose Admin Aspirin (Aspirin Chew) 324 mg NOW STAT PO 11/19/16 09:58 11/19/16 09:59 DC 11/19/16 10:08 324 MG Nitroglycerin (Nitrostat Tab) 0.4 mg Q5M PRN SL 11/19/16 10:00 12/19/16 09:59 11/19/16 10:21 0.4 MG ECG Indication: chest pain Rate (beats per minute): 61 Rhythm: normal sinus Findings: left axis deviation, other (interventricular conduction delay; improved inferior ST wave changes) ED Course ED COURSE: Vital signs were reviewed and showed hypertensive. The patients medical record was reviewed The above diagnostic studies were performed and reviewed. ED treatments and interventions as stated above. 0940: The patient was evaluated in room B8. A complete history and physical examination was performed. 0958: Aspirin 324 mg PO 1000: Nitroglycerin 0.4 mg SL - PRN 1056: The patient is doing well. I updated her on the results. 1200: I spoke with Petty Barrera PA-C. We discussed the patient's case. The patient will be evaluated by the [facility] for further management. 1218: Upon reevaluation, the patient is resting comfortably. I discussed my findings with the patient and she understands and agrees with the treatment plan. Based on the patients age, coexisting illnesses, exam and lab findings the decision to treat as an inpatient was made. The patient remained stable while under my care. The patient will be evaluated for further management. Medical Decision Differential diagnoses includes but is not limited to pneumonia, bronchitis, COPD/Asthma exacerbation, pneumothorax, pulmonary embolism, congestive heart failure, acute coronary syndrome. Patient is a 75-year-old female presents the ER referred in by cardiology for shortness of breath associated with the chest pressure for the past 4 days. It is worsened with exertion. Her pain has been present for the past 4 days but troponin was negative. EKG was fairly unchanged. She was already given aspirin. Nitroglycerin did worsen her pain. She was not significantly anemic. Troponin was negative. D-dimer was elevated and consequently CT PE was performed which was negative. She does have a slightly fluid-filled esophagus on CT. I question if this is the true cause of her symptoms. Patient was attempted at bedside and admitted to internal medicine for further workup likely by cardiology and GI. Medication Reconcilliation Current Medication List: was personally reviewed by me Blood Pressure Screening Patient's blood pressure: Elevated blood pressure Blood pressure disposition: Elevated BP felt to be situational Consults Time Called: 1156 Consulting Physician: Petty Barrera PA-C Returned Call: 1200 I spoke with Petty Barrera PA-C. We discussed the patient's case. The patient will be evaluated by the [facility] for further management. Impression Primary Impression: Precordial chest pain Additional Impressions: Dyspnea on exertion fluid-filled esophagus Scribe Attestation The scribe's documentation has been prepared under my direction and personally reviewed by me in its entirety. I confirm that the note above accurately reflects all work, treatment, procedures, and medical decision making performed by me. Departure Information Dispostion Being Evaluated By Hospitalist Referrals Liza Dobbs DO (PCP) Patient Instructions My [facility] Problem Qualifiers
[2016-11-19 16:49] LABS: CKMB/CK RATIO 0.3 (0-3.0)
[2016-11-19] MEDS: INSULIN ASPART 100 UNITS/ML 3 ML PEN SC SCH ×2 (17:36→20:47)
--- NOTE | 2016-11-19 18:13 | History and Physical ---
History & Physical Date & Time of Service: Nov 19, 2016 at 13:07 Chief Complaint: Sob, Chest Pains Primary Care Physician: Liza Dobbs DO History of Present Illness Source: patient, hospital records This is a 75 y/o female with PMH of CAD s/p RCA stent in 1995, atherectomy and stenting of RCA in July 2011, and AZALIA to mid LAD Dec 2011, chronic diastolic dysfunction, mild , mild mitral stenosis, HTN, HL, DM 2 insulin dependent, and other problems listed below who was sent to the ED from delivery driver Dr. Pichardo's office for chest pain. Patient reports chest pain x 3-4 days. Describes "hurt" in substernal area which is non-radiating. States pain progressively worsened and has been constant for most of today. Not exacerbated by exertion or eating. She reports worsening of pain when nitro was given in ER. Currently rates pain 5/10. Denies similar pain in the past. She reports associated DAVILA with ambulating a few steps which is new for past 3-4 days. No change in chronic RLE edema. Denies diaphoresis, fever, chills, dizziness, cough, dyspnea at rest, orthopnea, reflux, difficulty swallowing, appetite loss, N/V, change in bowel or bladder movements, calf pain, weight gain, rash, anxiety. No heavy lifting. She saw Dr. Pichardo today for routine follow up and was sent to ER for further evaluation. Past Medical/Surgical History Medical Problems: (1) Aortic root dilatation Status: Chronic (2) Asthma Status: Chronic (3) CAD (coronary artery disease) Permanent Comment: 1995 - PTCA and stenting of RCA 07/2011 - atherectomy and stenting RCA 12/2011- AZALIA to the mid LAD Status: Chronic (4) Depression Status: Chronic (5) DM type 2 (diabetes mellitus, type 2) Status: Chronic (6) Dyslipidemia Status: Chronic (7) Hypothyroidism Status: Chronic (8) HOMERO (iron deficiency anemia) Status: Chronic (9) Macular degeneration Status: Chronic (10) MDS (myelodysplastic syndrome) Status: Chronic (11) Mild aortic stenosis Status: Chronic Surgical Problems: (1) History of angioplasty Status: Chronic (2) History of arthroscopy of knee Status: Chronic (3) History of arthroscopy of shoulder Status: Chronic (4) History of cholecystectomy Status: Chronic (5) History of gastric bypass Status: Chronic (6) History of incisional hernia repair Status: Chronic (7) History of partial hysterectomy Status: Chronic (8) History of tonsillectomy Status: Chronic (9) Repair arm tendon Status: Chronic Family History Diabetes mellitus FH: heart disease FHx: cancer FHx: gallbladder disease Hypertension Social History Smoking Status: Never Smoker Alcohol Use: none Drug Use: none Marital Status: Housing status: lives with family Occupational Status: retired Immunizations History of Influenza Vaccine: Yes Influenza Vaccine Date: July 31, 2011 History of Tetanus Vaccine?: No Tetanus Immunization Date: Nov 05, 2010 History of Pneumococcal: Unknown Pneumococcal Date: July 31, 2011 History of Hepatitis B Vaccine: No Multi-Drug Resistant Organisms History of MDRO: No Allergies Coded Allergies: Adhesives (Verified Allergy, Unknown, ADHESIVE TAPE, 11/19/16) Home Medications Scheduled Aspirin (Aspirin Ec), 81 MG PO QAM Atorvastatin (Lipitor), 1 TAB PO DAILY Calcium Citrate-Vitamin D (Citracal + D3 Maximum), 2 TAB PO BID Citalopram Hydrobromide (Celexa), 1 TAB PO DAILY Clopidogrel Bisulfate (Plavix), 75 MG PO DAILY Cyanocobalamin (Cyanocobalamin), 1 ML INJ MONTHLY Ferrous Sulfate (Kp Ferrous Sulfate), 1 TAB PO QAM Insulin Glargine (Lantus Solostar), 16 UNITS SC QAM Levothyroxine Sodium (Levothyroxine Sodium), 1 TAB PO DAILYBB Nitroglycerin (Nitrostat), 0.4 MG UT PRN Pediatric Multiple Vitamins W/ (Flintstones Plus Iron), 1 TAB PO DAILY Senna/Docusate Sod (Senokot S), 2 TAB PO BID Scheduled PRN Loperamide Hcl (Imodium), 2 MG PO UD PRN for Diarrhea Review of Systems Ten systems reviewed and negative except as noted in HPI. Physical Exam Vital Signs Date Time Temp Pulse Resp B/P (MAP) Pulse Ox O2 Delivery O2 Flow Rate FiO2 11/19/16 11:39 58 20 143/87 100 Nasal Cannula 2.0 11/19/16 11:37 36.8 61 20 120/63 100 Nasal Cannula 2.0 11/19/16 10:32 64 20 138/63 97 Nasal Cannula 2.0 11/19/16 10:23 62 20 120/63 95 11/19/16 10:19 96 Room Air 11/19/16 10:09 60 20 156/69 99 Room Air 11/19/16 09:36 66 11/19/16 09:23 36.8 65 18 129/68 99 Room Air General Appearance: no apparent distress, + obese Head: normocephalic, atraumatic Eyes: normal inspection, sclerae normal ENT: hearing grossly normal, pharynx normal Neck: supple, no JVD, trachea midline Respiratory/Chest: chest non-tender, lungs clear, normal breath sounds, no respiratory distress, no accessory muscle use Cardiovascular: regular rate, rhythm, no murmur, + systolic murmur Abdomen/GI: normal bowel sounds, non tender, soft Extremities/Musculoskelatal: no calf tenderness, + pedal edema (mild chronic swelling of RLE. no edema LLE. ), + pertinent finding (refuses to remove socks/ shoes at time of my exam) Neurologic/Psych: alert, normal mood/affect, oriented x 3 Skin: normal color, warm/dry, no rash (no rash on chest) Diagnostics Laboratory Results Results Past 24 Hours Test 11/19/16 10:08 Range/Units White Blood Count 3.12 4.8-10.8 K/uL Red Blood Count 3.66 4.2-5.4 M/uL Hemoglobin 10.7 12.0-16.0 g/dL Hematocrit 33.6 37-47 % Mean Corpuscular Volume 91.8 80-100 fL Mean Corpuscular Hemoglobin 29.2 25-34 pg Mean Corpuscular Hemoglobin Concent 31.8 32-36 g/dl Platelet Count 156 130-400 K/uL Mean Platelet Volume 9.9 7.4-10.4 fL Neutrophils (%) (Auto) 62.9 % Lymphocytes (%) (Auto) 25.0 % Monocytes (%) (Auto) 9.3 % Eosinophils (%) (Auto) 1.9 % Basophils (%) (Auto) 0.6 % Neutrophils # (Auto) 1.96 1.4-6.5 K/uL Lymphocytes # (Auto) 0.78 1.2-3.4 K/uL Monocytes # (Auto) 0.29 0.11-0.59 K/uL Eosinophils # (Auto) 0.06 0-0.5 K/uL Basophils # (Auto) 0.02 0-0.2 K/uL RDW Standard Deviation 45.4 36.4-46.3 fL RDW Coefficient of Variation 13.6 11.5-14.5 % Immature Granulocyte % (Auto) 0.3 % Immature Granulocyte # (Auto) 0.01 0.00-0.02 K/uL D-Dimer 1160 0-500 ug/L FEU Sodium Level 142 136-145 mmol/L Potassium Level 4.0 3.5-5.1 mmol/L Chloride Level 109 98-107 mmol/L Carbon Dioxide Level 29 21-32 mmol/L Anion Gap 4.0 3-11 mmol/L Blood Urea Nitrogen 20 7-18 mg/dl Creatinine 0.87 0.60-1.20 mg/dl Est Creatinine Clear Calc Drug Dose 55.6 ml/min Estimated GFR () 74.5 Estimated GFR (Non- 64.3 BUN/Creatinine Ratio 23.0 10-20 Random Glucose 155 70-99 mg/dl Calcium Level 9.1 8.5-10.1 mg/dl Total Creatine Kinase 313 26-192 U/L Creatine Kinase MB 1.1 0.5-3.6 ng/ml Creatine Kinase MB Ratio 0.4 0-3.0 Troponin I < 0.015 0-0.045 ng/ml Diagnostic Radiology CHEST ONE VIEW PORTABLE IMPRESSION: Negative chest. CHEST CTA for PULMONARY ARTERIES IMPRESSION: 1. No evidence for pulmonary embolus. 2. No focal lung consolidations. 3. Postsurgical changes at the esophagogastric junction with a fluid-filled and distended esophagus. This has slightly progressed. 4. 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 EKG sinus rhythm, no ST or T wave abnormality Impression Assessment and Plan CHEST PAIN R/o ACS; hx CAD s/p RCA stent in 1995, atherectomy and stenting of RCA in July 2011, and AZALIA to mid LAD Dec 2011 Initial troponin negative EKG- no ST or T wave abnormality CXR unremarkable CTA- negative for PE, no consolidation, postsurgical changes at the esophagogastric junction with a fluid-filled and distended esophagus, slightly progressed, stable mild aneurysmal dilatation of the ascending thoracic aorta measuring up to 4.2 cm Trend serial cardiac enzymes Check echo Aspirin 324 mg given in ER Continue aspirin, Plavix, atorvastatin Consult cardiology- discussed with Dr. Thomas, patient will be NPO after midnight for cardiac cath FLUID FILLED DISTENDED ESOPHAGUS GI cocktail given Consult GI; appreciate input, PPI started, plan for barium swallow vs. EGD tomorrow CHRONIC DIASTOLIC DYSFUNCTION Currently euvolemic DM TYPE 2 Continue Lantus Novolog sliding scale HYPOTHYROIDISM Continue levothyroxine CODE STATUS DNR per my discussion with the patient DISPOSITION Telemetry Follows with Dr. Dobbs for primary care Patient seen in collaboration with Dr. Roblero. Please see her addendum. Attending addendum: Agree with the above H&P; please see above for more details. Patient is a pleasant 75 yo female who presented to the hospital for complaints of chest pain; she was actually seen at her Cardiologists office today for routine follow up when she mentioned her symptoms and was referred to come to the hospital for admission and further evaluation. She states the pain seems constant and is not worsened by activity. Cardiac: RR, S1 and S2 auscultated, + CELESTINE Resp: CTA B/L, no wheezes, rales, rhonchi, breath sounds symmetric GI: soft, NT, ND, +BS CHEST PAIN: -referred from Cardiology office today, will consult Cardiology -obtain serial CM, first set in negative -order TTE -CT chest negative for PE but does report fluid filled esophagus; patient denies symptoms of reflux, dysphagia, or regurgitation -continue home meds Advanced Directives Existing Living Will: No Existing Power of Director Of Creative Services: No VTE Prophylaxis VTE Risk Assessment Done? Y/N: Yes Risk Level: Moderate
--- NOTE | 2016-11-19 19:23 | CARDIOLOGY CONSULTATION ---
DATE OF CONSULTATION: 11/19/2016 CONSULTATION REQUESTED BY: ARASH Mars. REASON FOR CONSULTATION: Chest pain. HISTORY OF PRESENT ILLNESS: Mrs. Palomo is a very pleasant 75-year-old woman who was seen in cardiac followup today with Dr. Pichardo, her primary instant potato processor. At that time, she voiced concerns of chest discomfort and dyspnea for the last 4 or 5 days. She states that over the last few days she has just been noticing increasing difficulties with shortness of breath and chest discomfort. It is relatively continuous, but does worsen with exertion. She states that even with very low levels of activity she has some chest discomfort. Even at rest right now, her chest discomfort is resolved, but she does feel a little bit more dyspneic than normal. She states that she has been taking her medications now without issue and there has been no significant change in her lower extremity edema, which is chronic. PAST SURGICAL HISTORY: 1. PTCA of the right coronary artery in 1995. 2. Cardiac catheterization in 2011, receiving an arthrectomy and stenting of the right coronary artery with followup intervention to the mid LAD in December 2011 with a drug-eluting stent. 3. Bilateral shoulder surgery. 4. Hernia repair. 5. Arm tendon repair. 6. Cholecystectomy. 7. Partial hysterectomy. 8. Tonsillectomy. 9. Gastric bypass surgery. 10. Upper endoscopy. 11. Multiple colonoscopies. MEDICAL ILLNESSES: 1. Coronary artery disease status post multiple interventions to the right coronary artery along with intervention to the LAD. 2. Diabetes. 3. Obesity, status post gastric bypass surgery. 4. non absorption status post gastric bypass surgery. 5. Hypothyroidism. 6. Dyslipidemia. 7. Myelodysplastic syndrome. 8. Chronic anemia, stable. 9. Aortic stenosis. 10. Mild mitral stenosis. FAMILY HISTORY: Noncontributory. SOCIAL HISTORY: Denies any alcohol, tobacco or recreational drug use. She lives at home with 4 generations total of her family. REVIEW OF SYSTEMS: As per HPI, all other review of systems reviewed and negative at this time. ALLERGIES: ADHESIVE TAPE. MEDICATIONS AN OUTPATIENT: 1. Aspirin 81 mg daily. 2. Plavix 75 mg daily. 3. Atorvastatin 10 mg daily. 4. Iron daily. 5. Levothyroxine daily. 6. Lantus as directed. PHYSICAL EXAMINATION: VITAL SIGNS: Temperature is 36.5, pulse 62, respiratory rate 12, blood pressure 160/94. GENERAL: Awake, alert, oriented x3, in no acute distress. HEENT: Normocephalic, atraumatic. Pupils equal, round, and reactive to light and accommodation. Extraocular muscles intact. Anicteric sclerae. Moist mucous membranes. NECK: No JVD, no bruit. CARDIOVASCULAR: Regular. Positive S4. Normal S1 and S2. No S3. Slight 2/6 mid to late systolic ejection murmur best heart at the right sternal border second intercostal space with radiation to bilateral carotids. No rubs. PULMONARY: Clear to auscultation bilaterally. No rales, rhonchi, or wheezing. ABDOMEN: Bowel sounds x4, soft. No rebound, guarding, tenderness. No organomegaly. EXTREMITIES: No clubbing, cyanosis or edema. +2 pedal pulses bilaterally. SKIN: Warm and dry. TEST RESULTS: CTA of the chest was read as no evidence for pulmonary embolism. No focal lung consolidations, postsurgical changes of the esophagogastric junction with fluid filled and distended esophagus, slightly progressed, stable mild aneurysmal dilatation of the ascending thoracic aorta measuring 4.2 cm. IMPRESSION: 1. Chest discomfort and dyspnea with exertion. 2. Underlying severe coronary artery disease. 3. Mild aortic stenosis. 4. Mild mitral stenosis. 5. Diabetes. RECOMMENDATIONS: It was my pleasure to see Mrs. Palomo in consultation today. Given the patient's extensive cardiac history at this point, I believe the most prudent course of action will be to proceed directly to cardiac catheterization for direct visualization of her coronary anatomy. So the patient will be made n.p.o. after midnight. She will be continued on her aspirin, Plavix and atorvastatin. A 2D echocardiogram will also be performed to evaluate her valvular disease. YAN
[2016-11-19 20:00] VITALS: O2SAT 99
[2016-11-19] MEDS: CALCIUM 600MG + VIT D 400 IU TAB PO SCH (20:43)
[2016-11-19] MEDS: DOCUSATE SODIUM/SENNA 50/8.6MG TAB PO SCH (20:44)
[2016-11-19] MEDS: PANTOprazole SOD 40 MG TAB PO SCH (20:45)
[2016-11-19] MEDS ORDERED: ENOXAPARIN 40 MG/0.4 ML SYR SQ SCH (21:00)
[2016-11-19 22:35] LABS: CKMB/CK RATIO 0.3 (0-3.0)
[2016-11-20] VITALS (17 sets, daily range): BP systolic 105–177; BP diastolic 57–90; PULSE 54–79; TEMP 36.4–36.8; O2SAT 93–100
[2016-11-20 06:02] LABS: HEMATOCRIT 34.1 % (37-47); MEAN CELL VOLUME 89.7 fL (80-100); MEAN CORPUSCULAR HEMOGLOBIN 28.4 pg (25-34); MEAN CORPUSCULAR HGB CONC 31.7 g/dl (32-36); MEAN PLATELET VOLUME 10.1 fL (7.4-10.4); PLATELET COUNT 147 K/uL (130-400)
[2016-11-20] MEDS: LEVOTHYROXINE 50 MCG TAB PO SCH (06:30)
[2016-11-20] MEDS: INSULIN ASPART 100 UNITS/ML 3 ML PEN SC SCH ×4 (08:01→21:00)
--- NOTE | 2016-11-20 08:27 | ECHOCARDIOGRAM REPORT ---
*NOTICE TO RECEIVING [employer]Y This information is strictly Confidential and protected under [place] law. [place] law prohibits you from making any further disclosure of this information unless further disclosure is expressly permitted by the written consent of the person to whom it pertains or is authorized by law. A general authorization for the release of medical or other information is not sufficient for this purpose. Hospital accepts no responsibility if the information is made available to any other person, INCLUDING THE PATIENT. Interpretation Summary * Name: MARY PATTERSON Study Date: 11/20/2016 06:34 AM BP: 135/65 mmHg * Patient Location: C.EDB HR: 67 * : 1940 (M/d/yyyy) Gender: Female Height: 62 in * Age: 75 yrs Ethnicity: CA Weight: 185 lb * Ordering Physician: Madisyn Crowell * Referring Physician: Self, Referred * Performed By: Mainor Tabares RCS * * Reason For Study: Chest pain * BSA: 1.8 m2 * -- Conclusions -- * Normal LV chamber size with mild concentric LVH. * Normal LV systolic function, EF 55-60%. * No segmental left ventricular wall motion abnormalities are noted. * Grade II diastolic dysfunction. * Moderately calcified, trileaflet aortic valve with borderline to mild aortic stenosis, no regurgitation. * There is moderate mitral annular calcification. Calcified mitral apparatus causing mitral stenosis. There is mild mitral regurgitation. Stenosis not quantified, visually appears to be mild. * Moderate left atrial enlargement. Procedure Details * Left Ventricle The left ventricle is normal in size. There is mild concentric left ventricular hypertrophy. Ejection Fraction = 60-65%. Left ventricular systolic function is normal. No segmental left ventricular wall motion abnormalities are noted. The left ventricular wall motion is normal. * Right Ventricle The right ventricular cavity size is normal (basal dimension <4.2 cm in right ventricular apical 4-chamber view). The right ventricular systolic function is normal as assessed by tricuspid annular plane systolic excursion (TAPSE) (normal >1.5 cm). * Atria The left atrium is moderately dilated. Right atrial size is normal. No ASD detected; PFO is not assessed. * Mitral Valve There is moderate mitral annular calcification. Calcified mitral apparatus causing mitral stenosis. There is mild mitral regurgitation. * Tricuspid Valve The tricuspid valve is normal in structure and function. * Aortic Valve The aortic valve is trileaflet. Moderately calcified, trileaflet aortic valve with borderline to mild aortic stenosis, no regurgitation. * Pulmonic Valve The pulmonary valve is not well seen, but the Doppler examination is normal without significant regurgitation or stenosis. * Great Vessels The aortic root is normal size. * Pericardium/Pleural There is no pericardial effusion. * Left Ventricular Diastolic Function Diastolic dysfunction, Grade II (pseudonormalization pattern). * * MMode 2D Measurements and Calculations * IVSd 1.2 cm * * LVIDd 4.8 cm * LVIDs 2.9 cm * LVPWd 1.2 cm * * IVS/LVPW 1.0 * FS 39.0 % * EDV(Teich) 108.1 ml * ESV(Teich) 33.2 ml * EF(Teich) 69.3 % * * EDV(cubed) 111.4 ml * ESV(cubed) 25.3 ml * EF(cubed) 77.3 % * * LV mass(C)d 221.2 grams * LV mass(C)dI 119.6 grams/m\S\2 * * SV(Teich) 74.9 ml * SI(Teich) 40.5 ml/m\S\2 * SV(cubed) 86.1 ml * SI(cubed) 46.6 ml/m\S\2 * * Ao root diam 3.4 cm * Ao root area 9.0 cm\S\2 * * LVOT diam 2.1 cm * LVOT area 3.6 cm\S\2 * * LVAd ap4 27.7 cm\S\2 * LVLd ap4 7.1 cm * EDV(MOD-sp4) 87.6 ml * EDV(sp4-el) 91.4 ml * LVAs ap4 18.2 cm\S\2 * LVLs ap4 6.2 cm * ESV(MOD-sp4) 43.6 ml * ESV(sp4-el) 45.3 ml * EF(MOD-sp4) 50.2 % * EF(sp4-el) 50.5 % * * LVAd ap2 26.6 cm\S\2 * LVLd ap2 7.7 cm * EDV(MOD-sp2) 77.9 ml * EDV(sp2-el) 77.8 ml * LVAs ap2 14.1 cm\S\2 * LVLs ap2 6.3 cm * ESV(MOD-sp2) 29.4 ml * ESV(sp2-el) 27.0 ml * EF(MOD-sp2) 62.3 % * EF(sp2-el) 65.3 % * * LVLd %diff 7.4 % * EDV(MOD-bp) 85.1 ml * LVLs %diff 1.3 % * ESV(MOD-bp) 35.1 ml * EF(MOD-bp) 58.7 % * * SV(MOD-sp4) 44.0 ml * SI(MOD-sp4) 23.8 ml/m\S\2 * * SV(MOD-sp2) 48.5 ml * SI(MOD-sp2) 26.2 ml/m\S\2 * * SV(MOD-bp) 50.0 ml * SI(MOD-bp) 27.0 ml/m\S\2 * * SV(sp4-el) 46.1 ml * SI(sp4-el) 24.9 ml/m\S\2 * * SV(sp2-el) 50.8 ml * SI(sp2-el) 27.5 ml/m\S\2 * * * Doppler Measurements and Calculations * MV E max cheryle 168.9 cm/sec * MV A max cheryle 159.8 cm/sec * * MV E/A 1.1 * * MV dec time 0.49 sec * * Ao V2 max 230.4 cm/sec * Ao max PG 21.3 mmHg * Ao max PG (full) 15.1 mmHg * Ao V2 mean 161.0 cm/sec * Ao mean PG 11.7 mmHg * Ao mean PG (full) 8.8 mmHg * Ao V2 VTI 59.0 cm * ASHLEY(I,A) 1.8 cm\S\2 * ASHLEY(I,D) 1.8 cm\S\2 * ASHLEY(V,A) 1.9 cm\S\2 * ASHLEY(V,D) 1.9 cm\S\2 * * LV V1 max PG 6.2 mmHg * LV V1 mean PG 2.9 mmHg * * LV V1 max 124.3 cm/sec * LV V1 mean 78.1 cm/sec * LV V1 VTI 30.2 cm * * SV(Ao) 532.8 ml * SI(Ao) 288.1 ml/m\S\2 * SV(LVOT) 107.9 ml * SI(LVOT) 58.4 ml/m\S\2 * * TR max cheryle 286.8 cm/sec * *
[2016-11-20] MEDS: CALCIUM 600MG + VIT D 400 IU TAB PO SCH ×2 (09:00→21:21)
[2016-11-20] MEDS: ASPIRIN 81 MG ECTAB PO SCH (09:00)
[2016-11-20] MEDS: CITALOPRAM 40 MG TAB PO SCH (09:00)
[2016-11-20] MEDS: FERROUS SULFATE 325 MG TAB PO SCH (09:00)
[2016-11-20] MEDS: FLINTSTONES COMPLETE CHEWABLE TAB PO SCH (09:00)
[2016-11-20] MEDS: CLOPIDOGREL BISULFATE 75 MG TAB PO SCH (09:00)
[2016-11-20] MEDS: PANTOprazole SOD 40 MG TAB PO SCH ×2 (09:00→21:21)
[2016-11-20] MEDS: ATORVASTATIN 10 MG TAB PO SCH (09:00)
[2016-11-20] MEDS: DOCUSATE SODIUM/SENNA 50/8.6MG TAB PO SCH ×2 (09:00→21:21)
[2016-11-20] MEDS ORDERED: SODIUM CHLORIDE 0.9% 1000ML 1,000 ML IV SCH ×2 (09:01→11:43)
[2016-11-20] MEDS ORDERED: DC ALL ANTICOAGULANTS ONE (09:15)
[2016-11-20] MEDS: INSULIN GLARGINE SOLOSTAR 100 UNITS/ML 3 ML PEN SC SCH (09:40)
--- NOTE | 2016-11-20 10:01 | PROGRESS NOTE ---
DATE: 11/20/2016 The patient is a 75-year-old who has an extensive history of ischemic heart disease with multiple coronary interventions in the past. Recently, she has been experiencing activity-related dyspnea on exertion concerning for new onset angina. She was seen by her primary day treatment clinician/art therapist yesterday Dr. Pichardo who has recommended a cardiac catheterization. The patient has had multiple procedures in the past. She understands the risk, benefit and intent of the procedure including the potential for repeat catheter-based intervention if necessary. She is willing to proceed and it will be performed later today. Of note, is the patient had an echocardiogram. She does have a mixed valvular heart disease with mild aortic stenosis and mild mitral stenosis, which is believed not be the origin of her symptoms. We will proceed only with left heart catheterization and coronary angiography.
[2016-11-20] MEDS ORDERED: HEPARIN SOD (PORCINE) 1000 UNIT/ML 10 ML VIAL ONE (10:28)
[2016-11-20] MEDS ORDERED: NITROGLYCERIN/D5W 100MCG/ML 20ML SYR ONE (10:29)
[2016-11-20] MEDS ORDERED: MIDAZOLAM HCL 1 MG/ML 2ML VIAL ONE (10:29)
[2016-11-20] MEDS ORDERED: FENTANYL CITRATE INJ 50 MCG/1 ML 2 ML VIAL ONE (10:29)
[2016-11-20] MEDS ORDERED: NiCARDipine HCL INJ 2.5 MG/ML 10 ML AMP ONE (10:32)
[2016-11-20] MEDS ORDERED: SODIUM CHLORIDE 0.9% 1000ML 250 ML IV PRN (11:43)
[2016-11-20] MEDS ORDERED: ONDANSETRON INJ 2 MG/ML 2 ML VIAL IV PRN (11:45)
[2016-11-20] MEDS ORDERED: ACETAMINOPHEN 325 MG TAB PO PRN (11:45)
[2016-11-20] MEDS ORDERED: ATROPINE SULFATE 0.1 MG/ML 5ML SYR IV PRN (11:45)
--- NOTE | 2016-11-20 11:53 | Cardiac Catheterization ---
Procedure Note Procedure Date Nov 20, 2016. Pre-Procedure Diagnosis Angina AUC Score 9 Post-Procedure Diagnosis Severe CAD Procedure(s) Performed Coronary Angiography Miniature Train Driver Dr. Caraballo Brine Process Operator(s) None Estimated Blood Loss None Medication(s) Heparin, Versed, Lidocaine 1% Summary of Findings Heavily calcified coronaries. RCA with flush shot only, appears patent. Subtotal mid LAD proximal to previous stent. Subtotal diagonal artery proximal. Left Circumflex patent. Hemodynamics Rest Ao: 117/65 Final Ao: 170/78 LV: Valve not crossed Recommendations management recommendations (Will have films rviewed at [facility] [place], [place]) Specimens None Radiation Exposure (mGy) 1968 Contrast (mls) 99 Fluids (cc crystalloids) 102 Procedural Complication(s) Unable to engage RCA from right transradial approach. Tried access from right femoral without success. Disposition Recovery Room / PACU ACC Data Cardiac Status Clinical evaluation leading to the procedure CAD Presntation: Stable angina Anginal Classification: CCS II Heart Failure: No Cardiogenic Shock w/in 24Hrs: No Cardiac Arrest w/in 24Hrs: No Imaging studies past 6 months: Yes Stress studies past 6 months: No Coronary Anatomy Dominant: Right Left Main (% Stenosis): Normal LAD (% Stenosis): Proximal (subtotal) D1 (% Stenosis): Proximal (subtotal) Circumflex (% Stenosis): Normal RCA (% Stenosis): Normal Diagnostic Status: Elective Closure Device Percutaneous Entry Location: Radial (Started radial, could not access grion) Closure Device: Radial Band Recommendations: management recommendations ([facility] [place] [place] to review films)
--- NOTE | 2016-11-20 13:06 | Gastroenterology Progress Note ---
Progress Note Date of Service: Nov 20, 2016 Subjective Pt evaluation today including: conversation w/ patient, physical exam, chart review, lab review, review of inpatient medication list Pt reports still having SOB even at rest. She denies any more chest pain. She has been made NPO for cardiac cath today. She had solids for dinner and denies any issues trouble or painful swallowing, n/v, abd pain. No BMs today. Review of Systems Constitutional: No fever, No chills Respiratory: + shortness of breath, No cough Cardiac: No chest pain Abdomen: No pain, No nausea, No vomiting Medications Current Inpatient Medications Medications (Trade) Dose Ordered Sig/Arlin Route Start Time Stop Time Status Last Admin Dose Admin Nitroglycerin (Nitrostat Tab) 0.4 mg Q5M PRN SL 11/19/16 10:00 12/19/16 09:59 11/19/16 10:21 0.4 MG Ioversol (Optiray 320) 100 ml UD PRN IV 11/19/16 11:15 11/23/16 11:14 Acetaminophen (Tylenol Tab) 650 mg Q4H PRN PO 11/19/16 12:15 12/19/16 12:14 Ondansetron HCl (Zofran Inj) 4 mg Q6H PRN IV 11/19/16 12:15 12/19/16 12:14 Nitroglycerin (Nitrostat Tab) 0.4 mg UD PRN SL 11/19/16 12:15 12/19/16 12:14 Enoxaparin Sodium (Lovenox Inj) 40 mg Q24H SQ 11/19/16 21:00 12/19/16 20:59 Future Hold Insulin Aspart (novoLOG ASPART) SLIDING SCALE If C... ACHS SC 11/19/16 16:30 12/19/16 16:29 11/19/16 17:36 3 UNITS Glucose (Glucose 40% Gel) 15-30 GRAMS 15 GRAMS... UD PRN PO 11/19/16 13:00 12/19/16 12:59 Glucose (Glucose Chew Tab) 4-8 Tablets 4 Tabl... UD PRN PO 11/19/16 13:00 12/19/16 12:59 Dextrose (Dextrose 50% 50ML Syringe) 25-50ML OF 50% DW IV FOR... UD PRN IV 11/19/16 13:00 12/19/16 12:59 Glucagon (Glucagon Inj) 1 mg UD PRN SQ 11/19/16 13:00 12/19/16 12:59 Aspirin (Ecotrin Tab) 81 mg QAM PO 11/20/16 09:00 12/20/16 08:59 Atorvastatin Calcium (Lipitor Tab) 10 mg DAILY PO 11/20/16 09:00 12/20/16 08:59 Citalopram Hydrobromide (celeXA TAB) 40 mg DAILY PO 11/20/16 09:00 12/20/16 08:59 Clopidogrel Bisulfate (plAVix TAB) 75 mg DAILY PO 11/20/16 09:00 12/20/16 08:59 Insulin Glargine (Lantus Solostar Pen) 16 units QAM SC 11/20/16 09:00 12/20/16 08:59 11/20/16 09:40 8 UNITS Levothyroxine Sodium (Synthroid Tab) 50 mcg DAILYBB PO 11/20/16 06:30 12/20/16 06:59 Senna/Docusate Sodium (Senokot S Tab) 2 tab BID PO 11/19/16 21:00 12/19/16 20:59 Calcium/Vitamin D (Caltrate Plus Tab) 1 tab BID PO 11/19/16 21:00 12/19/16 20:59 11/19/16 20:43 1 TAB Ferrous Sulfate (Feosol Tab) 325 mg DAILY PO 11/20/16 09:00 12/20/16 08:59 Multivitamins (Flintstones Complete Tab) 1 tab DAILY PO 11/20/16 09:00 12/20/16 08:59 Miscellaneous (Iv Fluids Completed) 1 ea PRN PRN N/A 11/19/16 14:00 11/19/17 13:59 Pantoprazole Sodium (Protonix Tab) 40 mg BID PO 11/19/16 21:00 12/19/16 20:59 11/19/16 20:45 40 MG Sodium Chloride 1,000 ml @ 0 mls/hr Q0M IV 11/20/16 09:01 12/20/16 09:00 Sodium Chloride 1,000 ml @ 75 mls/hr [id number] IV 11/20/16 11:43 107/17 11:42 UNV Acetaminophen (Tylenol Tab) 650 mg Q4H PRN PO 11/20/16 11:45 12/20/16 11:44 UNV Sodium Chloride 250 ml @ 999 mls/hr Q16M PRN IV 11/20/16 11:43 12/20/16 11:42 UNV Atropine Sulfate (Atropine Sulfate 0.1MG/Ml Inj) 0.6 mg PRN PRN IV 11/20/16 11:45 12/20/16 11:44 UNV Ondansetron HCl (Zofran Inj) 4 mg Q6H PRN IV 11/20/16 11:45 12/20/16 11:44 UNV Objective Vital Signs Date Time Temp Pulse Resp B/P (MAP) Pulse Ox O2 Delivery O2 Flow Rate FiO2 11/20/16 11:50 36.7 65 16 150/81 (104) 100 Room Air 11/20/16 11:30 74 16 140/70 (93) 100 Room Air 11/20/16 08:00 98 Room Air 11/20/16 07:40 36.8 54 16 133/70 (91) 95 Room Air 11/20/16 05:29 36.7 57 16 135/65 96 Room Air 2.0 11/20/16 04:00 Room Air 11/20/16 04:00 36.7 57 16 135/65 (88) 96 Room Air 11/20/16 00:00 Room Air 11/20/16 00:00 36.4 58 18 135/61 (85) 98 Room Air 11/19/16 20:00 99 Room Air 11/19/16 16:00 97 Room Air 11/19/16 14:39 36.5 62 16 162/94 (116) 97 Room Air 11/19/16 14:09 60 159/88 100 11/19/16 13:39 55 146/79 100 Room Air Physical Exam General Appearance: WD/WN, no apparent distress Eyes: normal inspection, PERRL, EOMI Neck: supple, no JVD, trachea midline Respiratory/Chest: normal breath sounds, no respiratory distress, no accessory muscle use Cardiovascular: regular rate, rhythm, no gallop, no murmur Abdomen: normal bowel sounds, non tender, soft Extremities: normal inspection, no pedal edema, no calf tenderness Neurologic/Psych: alert, normal mood/affect, oriented x 3 Skin: normal color, no jaundice, no rash Laboratory Results Last 24 Hours Test 11/19/16 16:03 11/19/16 16:37 11/19/16 20:47 11/19/16 22:02 Prothrombin Time 10.8 SECONDS Prothromb Time International Ratio 1.0 Total Creatine Kinase 283 U/L 254 U/L Creatine Kinase MB 0.8 ng/ml 0.8 ng/ml Creatine Kinase MB Ratio 0.3 0.3 Troponin I < 0.015 ng/ml < 0.015 ng/ml Bedside Glucose 160 mg/dl 120 mg/dl Test 11/20/16 05:36 11/20/16 07:29 White Blood Count 2.90 K/uL Red Blood Count 3.80 M/uL Hemoglobin 10.8 g/dL Hematocrit 34.1 % Mean Corpuscular Volume 89.7 fL Mean Corpuscular Hemoglobin 28.4 pg Mean Corpuscular Hemoglobin Concent 31.7 g/dl RDW Standard Deviation 43.7 fL RDW Coefficient of Variation 13.4 % Platelet Count 147 K/uL Mean Platelet Volume 10.1 fL Bedside Glucose 102 mg/dl Assessment and Plan Impression Patient is a 75 year old female here w chest pain associated w DAVILA, and dyspnea at rest. EKG, troponin, CK MB normal though total CK and D dimer elevated. CXR negative, chest/thorax CT showed distended, fluid filled esophagus however she is w/o s/s of dysphagia, odynophagia, reflux, n/v, abd pain. She continues to have no trouble or painful swallowing solid meals, no n/v, abd pain. She is scheduled for cardiac cath today. Plans - Protonix 40mg BID - Would consider barium swallow vs esophageal manometry eval in outpt setting to r/o dysmotility issues if CP symptoms persist along w any new dysphagia/ odynophagia. No plans for further GI workup at inpt setting at this time. Will sign off, pls call if new questions/concerns arise. I have seen, examined and agree with the plan as outlined by TANGELA Naidu as above. -exam reveals soft abd
[2016-11-20] MEDS ORDERED: ISOSORBIDE MONONITRATE 30 MG TABCR PO ONE (15:00)
--- NOTE | 2016-11-20 15:45 | Progress Note ---
Medicine Progress Note Date & Time of Visit: Nov 20, 2016 at 15:17. (Madisyn Crowell PA-C) Subjective Patient was admitted yesterday for 3-4 day hx of chest pain and DAVILA. Patient seen in afternoon today after undergoing cardiac cath. She reports feeling anxious. States there was difficulty with access during her cath. She is uncomfortable being on bed rest and having to use the bed morse. She denies any further chest pain. States her breathing is "not right" even in bed today. Denies diaphoresis, dizziness, palpitations, abdominal pain, reflux, N/V, swallowing difficulty, LE edema. She was able to eat after her cath. (Madisyn Crowell PA-C) Objective Last 8 Hrs Date Time Temp Pulse Resp B/P (MAP) Pulse Ox O2 Delivery O2 Flow Rate FiO2 11/20/16 13:50 76 18 134/71 (92) 100 Room Air 11/20/16 13:20 76 16 166/75 (105) 100 Room Air 11/20/16 12:50 70 16 168/78 (108) 100 Room Air 11/20/16 12:35 72 16 132/76 (94) 99 Room Air 11/20/16 12:20 70 16 126/80 (95) 99 Room Air 11/20/16 12:05 69 16 112/68 (83) 99 Room Air 11/20/16 12:00 Room Air 11/20/16 11:50 36.7 65 16 150/81 (104) 100 Room Air 11/20/16 11:30 74 16 140/70 (93) 100 Room Air 11/20/16 08:00 98 Room Air 11/20/16 07:40 36.8 54 16 133/70 (91) 95 Room Air Physical Exam: General-alert elderly female, lying in bed, no distress Eyes-anicteric ENT- hearing intact Neck- trachea midline Lungs-CTA bilaterally, no wheezes, crackles, or rhonchi, no respiratory distress , saturating well on RA Heart-RRR, systolic murmur Abdomen-soft, nontender, normal BS Extremities-no edema, no calf tenderness, no deformity Neuro- alert, oriented x 3, anxious Laboratory Results: Last 24 Hours Test 11/19/16 16:03 11/19/16 16:37 11/19/16 20:47 9/6/17 22:02 Prothrombin Time 10.8 SECONDS Prothromb Time International Ratio 1.0 Total Creatine Kinase 283 U/L 254 U/L Creatine Kinase MB 0.8 ng/ml 0.8 ng/ml Creatine Kinase MB Ratio 0.3 0.3 Troponin I < 0.015 ng/ml < 0.015 ng/ml Bedside Glucose 160 mg/dl 120 mg/dl Test 11/20/16 05:36 11/20/16 07:29 White Blood Count 2.90 K/uL Red Blood Count 3.80 M/uL Hemoglobin 10.8 g/dL Hematocrit 34.1 % Mean Corpuscular Volume 89.7 fL Mean Corpuscular Hemoglobin 28.4 pg Mean Corpuscular Hemoglobin Concent 31.7 g/dl RDW Standard Deviation 43.7 fL RDW Coefficient of Variation 13.4 % Platelet Count 147 K/uL Mean Platelet Volume 10.1 fL Bedside Glucose 102 mg/dl (Madisyn Crowell PA-C) Assessment & Plan CHEST PAIN R/o ACS; hx CAD s/p RCA stent in 1995, atherectomy and stenting of RCA in July 2011, and AZALIA to mid LAD Dec 2011 Troponin negative x 3; EKG- sinus with 1st degree AV block, nonspecific intraventricular conduction block, no ST or T wave abnormality CXR unremarkable CTA- negative for PE, no consolidation, postsurgical changes at the esophagogastric junction with a fluid-filled and distended esophagus, slightly progressed, stable mild aneurysmal dilatation of the ascending thoracic aorta measuring up to 4.2 cm Echo- "Normal LV chamber size with mild concentric LVH. * Normal LV systolic function, EF 55-60%. * No segmental left ventricular wall motion abnormalities are noted. * Grade II diastolic dysfunction.* Moderately calcified, trileaflet aortic valve with borderline to mild aortic stenosis, no regurgitation. * There is moderate mitral annular calcification. Calcified mitral apparatus causing mitral stenosis. There is mild mitral regurgitation. Stenosis not quantified, visually appears to be mild. * Moderate left atrial enlargement." Aspirin 324 mg given in ER Continued on aspirin, Plavix, atorvastatin Per note on prior hospitalization, pt is not on beta marie due to intolerance Cardiology on board; appreciate input Underwent cardiac cath today 11/20/16- "Heavily calcified coronaries. RCA with flush shot only, appears patent. Subtotal mid LAD proximal to previous stent. Subtotal diagonal artery proximal. Left Circumflex patent. Unable to engage RCA from right transradial approach. Tried access from right femoral without success." Noted on cath report that films will be reviewed at [facility] [place] with Dr. Thomas, patient will be staying here tonight, will be given Imdur 30 mg now FLUID FILLED DISTENDED ESOPHAGUS GI cocktail given on admission No abdominal pain, N/V, reflux, or swallowing issues Consult GI; appreciate input, PPI started, recommended considering outpatient evaluation for dysmotility with barium swallow vs esophageal manometry if if CP symptoms persist or if develops dysphagia/ odynophagia; no inpatient GI intervention CHRONIC DIASTOLIC DYSFUNCTION Currently euvolemic DM TYPE 2 Continue Lantus Novolog sliding scale HYPOTHYROIDISM Continue levothyroxine CODE STATUS DNR per my discussion with the patient DISPOSITION Telemetry Follows with Dr. Dobbs for primary care Patient seen in collaboration with Dr. Billy. Please see her addendum. Current Inpatient Medications: Current Inpatient Medications Medications (Trade) Dose Ordered Sig/Arlin Route Start Time Stop Time Status Last Admin Dose Admin Ioversol (Optiray 320) 100 ml UD PRN IV 11/19/16 11:15 11/23/16 11:14 Nitroglycerin (Nitrostat Tab) 0.4 mg UD PRN SL 11/19/16 12:15 12/19/16 12:14 Enoxaparin Sodium (Lovenox Inj) 40 mg Q24H SQ 11/19/16 21:00 12/19/16 20:59 Future Hold Insulin Aspart (novoLOG ASPART) SLIDING SCALE If C... ACHS SC 11/19/16 16:30 12/19/16 16:29 11/19/16 17:36 3 UNITS Glucose (Glucose 40% Gel) 15-30 GRAMS 15 GRAMS... UD PRN PO 11/19/16 13:00 12/19/16 12:59 Glucose (Glucose Chew Tab) 4-8 Tablets 4 Tabl... UD PRN PO 11/19/16 13:00 12/19/16 12:59 Dextrose (Dextrose 50% 50ML Syringe) 25-50ML OF 50% DW IV FOR... UD PRN IV 11/19/16 13:00 12/19/16 12:59 Glucagon (Glucagon Inj) 1 mg UD PRN SQ 11/19/16 13:00 12/19/16 12:59 Aspirin (Ecotrin Tab) 81 mg QAM PO 11/20/16 09:00 12/20/16 08:59 Atorvastatin Calcium (Lipitor Tab) 10 mg DAILY PO 11/20/16 09:00 12/20/16 08:59 Citalopram Hydrobromide (celeXA TAB) 40 mg DAILY PO 11/20/16 09:00 12/20/16 08:59 Clopidogrel Bisulfate (plAVix TAB) 75 mg DAILY PO 11/20/16 09:00 12/20/16 08:59 Insulin Glargine (Lantus Solostar Pen) 16 units QAM SC 11/20/16 09:00 12/20/16 08:59 11/20/16 09:40 8 UNITS Levothyroxine Sodium (Synthroid Tab) 50 mcg DAILYBB PO 11/20/16 06:30 12/20/16 06:59 Senna/Docusate Sodium (Senokot S Tab) 2 tab BID PO 11/19/16 21:00 12/19/16 20:59 Calcium/Vitamin D (Caltrate Plus Tab) 1 tab BID PO 11/19/16 21:00 12/19/16 20:59 11/19/16 20:43 1 TAB Ferrous Sulfate (Feosol Tab) 325 mg DAILY PO 11/20/16 09:00 12/20/16 08:59 Multivitamins (Flintstones Complete Tab) 1 tab DAILY PO 11/20/16 09:00 12/20/16 08:59 Miscellaneous (Iv Fluids Completed) 1 ea PRN PRN N/A 11/19/16 14:00 11/19/17 13:59 Pantoprazole Sodium (Protonix Tab) 40 mg BID PO 11/19/16 21:00 12/19/16 20:59 11/19/16 20:45 40 MG Sodium Chloride 1,000 ml @ 0 mls/hr Q0M IV 11/20/16 09:01 12/20/16 09:00 Sodium Chloride 1,000 ml @ 75 mls/hr [id number] IV 11/20/16 11:43 12/20/16 11:42 Acetaminophen (Tylenol Tab) 650 mg Q4H PRN PO 11/20/16 11:45 12/20/16 11:44 Sodium Chloride 250 ml @ 999 mls/hr Q16M PRN IV 11/20/16 11:43 12/20/16 11:42 Atropine Sulfate (Atropine Sulfate 0.1MG/Ml Inj) 0.6 mg PRN PRN IV 11/20/16 11:45 12/20/16 11:44 Ondansetron HCl (Zofran Inj) 4 mg Q6H PRN IV 11/20/16 11:45 12/20/16 11:44 (Madisyn Crowell PA-C) I have seen and examined the patient and agree with the assessment and plan as above (Leonarda Billy, DO)
--- NOTE | 2016-11-20 16:00 | Progress Note ---
Progress Note Date of Service Nov 20, 2016. Progress Note Spoke with patient after cath reviewed findings waiting on recommendations from interventional cardiology/CT surgery at [place] in the meantime will start medical therapy HR has been in 60's so will start imdur 30mg daily today will follow
[2016-11-20] MEDS: SODIUM CHLORIDE 0.9% 1000ML 1,000 ML IV SCH (17:00)
--- NOTE | 2016-11-20 17:19 | Progress Note ---
Progress Note Date of Service Nov 20, 2016. Progress Note Called by nursing: Pt with a witnessed syncopal event while on tele reportedly sat up and became lightheaded (this was not the first time she sat up since cath, previously ambulated to bathroom without issue) monitor revealed a a 6 second pause followed with approx 12 seconds of ventricular escape BP initially 60 systolic, then approx 200 systolic upon awakening patient awoke confused but without other complaint she denies experiencing chest pain, sob, palpitations before or after event was reportedly lightheaded immediately prior to the event Temporary pacer ordered along with transfer to ICU pt seen in ICU, currently anxious but no physical complaints discussed possible need for ppm with patient, she stated that she was too nervous and prefer I talk to her son, Gordon called spoke with sons Gordon and Jose, both in agreement with permanent pacemaker placement if needed Spoke with all three sons at bedside: Gordon Garcia and Ed all in agreement with pacemaker (which would allow me to provide beta marie to treat underlying CAD) will plan for pacer placement tomorrow cont external pacer for now (again, would prefer to avoid further attempts at venous access given need for ppm and underlying vascular disease) will also suspend DNR status for now until current treatment completed, patient and family in agreement hold plavix in AM for dual chamber PPM placement
[2016-11-20] MEDS ORDERED: LORAZEPAM 2 MG/ML 1 ML VIAL IV PRN (18:00)
[2016-11-20 18:15] LABS: HEMATOCRIT 34.3 % (37-47); MEAN CELL VOLUME 89.3 fL (80-100); MEAN CORPUSCULAR HEMOGLOBIN 29.4 pg (25-34); PLATELET COUNT 155 K/uL (130-400); RED BLOOD COUNT 3.84 M/uL (4.2-5.4); WHITE BLOOD COUNT 3.81 K/uL (4.8-10.8)
[2016-11-20] MEDS ORDERED: LORAZEPAM INJ 0.25 MG in SYRINGE 0.125 ML IV PRN (18:15)
--- NOTE | 2016-11-20 18:16 | Progress Note ---
Progress Note Date of Service Nov 20, 2016. (Madisyn Crowell PA-C) Progress Note patient transferred to ICU this afternoon by cardiology for syncopal event preceded by lightheadedness witnessed by nursing in tele reportedly, monitor showed 6 sec pause then approximately 12 seconds ventricular escape, and her BP was 60 systolic then 200 systolic upon awakening reportedly she awoke confused but denied any CP, palpitations, SOB. patient is currently alert and oriented in room 107 with family at bedside. reported anxiety when I checked on her per my discussion with Dr. Thomas, external pacer placed, plan is for PPM tomorrow AM. patient is NPO. the patient was DNR, but code status is being changed to FULL CODE per Dr. Thomas's discussion with the patient. there is PRN atropine ordered. cardiology would recommend dopamine if develops recurrent pause/ bradycardia I have ordered PRN lorazepam for her anxiety case signed out to spin tank tender, serial cardiac enzymes added as per his recommendation (Madisyn Crowell PA-C)
[2016-11-20 18:25] LABS: MEAN CORPUSCULAR HGB CONC 32.9 g/dl (32-36)
[2016-11-20] MEDS ORDERED: LORAZEPAM 0.5 MG TAB PO PRN (18:30)
[2016-11-20 18:43] LABS: ALB/GLOB RATIO 0.9 (0.9-2); CALCIUM 8.9 mg/dl (8.5-10.1); CKMB/CK RATIO 0.5 (0-3.0); CREATININE 0.84 mg/dl (0.60-1.20); POTASSIUM 3.8 mmol/L (3.5-5.1)
[2016-11-20 19:01] LABS: LYME DISEASE AB IGG NEG (NEG); LYME DISEASE AB IGM NEG (NEG)
[2016-11-20] MEDS ORDERED: NURSING VERBAL MED ORDER ONE (19:30)
[2016-11-20] MEDS ORDERED: POTASSIUM CHLORIDE 20 MEQ TABCR PO ONE (20:00)
--- NOTE | 2016-11-20 21:37 | Critical Care Consultation ---
Critical Care Consultation Date of Consultation: Nov 20, 2016. Attending Physician: Leonarda Billy DO Reason for Consultation: a history of CAD with sinus pause and non sustained ventricular escape rhythm warranting monitoring in MICU History of Present Illness This is pleasant 75 yo female patient who was initially admitted to the hospital with SOB on exertion. She is known to have h/o CAD she was evaluated by both GI and cardiology. For her stable angina cardiology decided to evaluate her coronaries given symptom severity. Ultimately she underwent coronoary angiography today with findings suggestive of 2 vessel coronary artery disease "Heavily calcified coronaries. RCA with flush shot only, appears patent. Subtotal mid LAD proximal to previous stent. Subtotal diagonal artery proximal. Left Circumflex patent." Planning for medical therapy versus surgical intervention is being considered by cardiology while weighing risks and benefits. The patient was stable and is on ASA plavix atorvastatin. Her heart rate apparently has been in the lower 60s and she was not on beta blockers. Still she developed a 12 second pause today and then had a self limited ventricular escape. Pacer pads were placed and she was transferred to MICU for monitoring and management should arrythmias recur. K was 3.8 and is repleted to 4. I also sent a Mg level on her. At the bedside she denies SOB chest pain abdomina or leg pain. She was comfortably sleeping with SpO2 97% on RA and HR 84 Past Medical/Surgical History (1) Aortic root dilatation Status: Chronic (2) Asthma Status: Chronic (3) CAD (coronary artery disease) Permanent Comment: 1995 - PTCA and stenting of RCA 07/2011 - atherectomy and stenting RCA 12/2011- AZALIA to the mid LAD Status: Chronic (4) Depression Status: Chronic (5) DM type 2 (diabetes mellitus, type 2) Status: Chronic (6) Dyslipidemia Status: Chronic (7) Hypothyroidism Status: Chronic (8) HOMERO (iron deficiency anemia) Status: Chronic (9) Macular degeneration Status: Chronic (10) MDS (myelodysplastic syndrome) Status: Chronic (11) Mild aortic stenosis Status: Chronic Surgical Problems: (1) History of angioplasty Status: Chronic (2) History of arthroscopy of knee Status: Chronic (3) History of arthroscopy of shoulder Status: Chronic (4) History of cholecystectomy Status: Chronic (5) History of gastric bypass Status: Chronic (6) History of incisional hernia repair Status: Chronic (7) History of partial hysterectomy Status: Chronic (8) History of tonsillectomy Status: Chronic (9) Repair arm tendon Status: Chronic Family History Diabetes mellitus FH: heart disease FHx: cancer FHx: gallbladder disease Hypertension non contributory at this point Social History Smoking Status: Never Smoker Alcohol Use: none Drug Use: none Marital Status: Housing Status: lives with family Occupation Status: retired Allergies Coded Allergies: Adhesives (Verified Allergy, Unknown, ADHESIVE TAPE, 11/19/16) Home Medications Scheduled Aspirin (Aspirin Ec), 81 MG PO QAM Atorvastatin (Lipitor), 1 TAB PO DAILY Calcium Citrate-Vitamin D (Citracal + D3 Maximum), 2 TAB PO BID Citalopram Hydrobromide (Celexa), 1 TAB PO DAILY Clopidogrel Bisulfate (Plavix), 75 MG PO DAILY Cyanocobalamin (Cyanocobalamin), 1 ML INJ MONTHLY Ferrous Sulfate (Kp Ferrous Sulfate), 1 TAB PO QAM Insulin Glargine (Lantus Solostar), 16 UNITS SC QAM Isosorbide Mononitrate (Isosorbide Mononitrate ER), 30 MG PO QAM Levothyroxine Sodium (Levothyroxine Sodium), 1 TAB PO DAILYBB Metoprolol Succinate (Metoprolol Succinate ER), 25 MG PO QAM Nitroglycerin (Nitrostat), 0.4 MG UT PRN Pantoprazole (Pantoprazole Sodium), 40 MG PO BID Pediatric Multiple Vitamins W/ (Flintstones Plus Iron), 1 TAB PO DAILY Senna/Docusate Sod (Senokot S), 2 TAB PO BID Triamcinolone Acet (Aristocort 0.1%), 1 APPL TD BID Scheduled PRN Loperamide Hcl (Imodium), 2 MG PO UD PRN for Diarrhea Current Inpatient Medications Current Inpatient Medications Medications (Trade) Dose Ordered Sig/Arlin Route Start Time Stop Time Status Last Admin Dose Admin Ioversol (Optiray 320) 100 ml UD PRN IV 11/19/16 11:15 11/23/16 11:14 Nitroglycerin (Nitrostat Tab) 0.4 mg UD PRN SL 11/19/16 12:15 12/19/16 12:14 Enoxaparin Sodium (Lovenox Inj) 40 mg Q24H SQ 11/19/16 21:00 12/19/16 20:59 Future Hold Insulin Aspart (novoLOG ASPART) SLIDING SCALE If C... ACHS SC 11/19/16 16:30 12/19/16 16:29 11/19/16 17:36 3 UNITS Glucose (Glucose 40% Gel) 15-30 GRAMS 15 GRAMS... UD PRN PO 11/19/16 13:00 12/19/16 12:59 Glucose (Glucose Chew Tab) 4-8 Tablets 4 Tabl... UD PRN PO 11/19/16 13:00 12/19/16 12:59 Dextrose (Dextrose 50% 50ML Syringe) 25-50ML OF 50% DW IV FOR... UD PRN IV 11/19/16 13:00 12/19/16 12:59 Glucagon (Glucagon Inj) 1 mg UD PRN SQ 11/19/16 13:00 12/19/16 12:59 Aspirin (Ecotrin Tab) 81 mg QAM PO 11/20/16 09:00 12/20/16 08:59 Atorvastatin Calcium (Lipitor Tab) 10 mg DAILY PO 11/20/16 09:00 12/20/16 08:59 Citalopram Hydrobromide (celeXA TAB) 40 mg DAILY PO 11/20/16 09:00 12/20/16 08:59 Clopidogrel Bisulfate (plAVix TAB) 75 mg DAILY PO 11/20/16 09:00 12/20/16 08:59 Insulin Glargine (Lantus Solostar Pen) 16 units QAM SC 11/20/16 09:00 12/20/16 08:59 11/20/16 09:40 8 UNITS Levothyroxine Sodium (Synthroid Tab) 50 mcg DAILYBB PO 11/20/16 06:30 12/20/16 06:59 Senna/Docusate Sodium (Senokot S Tab) 2 tab BID PO 11/19/16 21:00 12/19/16 20:59 Calcium/Vitamin D (Caltrate Plus Tab) 1 tab BID PO 11/19/16 21:00 12/19/16 20:59 11/19/16 20:43 1 TAB Ferrous Sulfate (Feosol Tab) 325 mg DAILY PO 11/20/16 09:00 12/20/16 08:59 Multivitamins (Flintstones Complete Tab) 1 tab DAILY PO 11/20/16 09:00 12/20/16 08:59 Miscellaneous (Iv Fluids Completed) 1 ea PRN PRN N/A 11/19/16 14:00 11/19/17 13:59 Pantoprazole Sodium (Protonix Tab) 40 mg BID PO 11/19/16 21:00 12/19/16 20:59 11/19/16 20:45 40 MG Sodium Chloride 1,000 ml @ 0 mls/hr Q0M IV 11/20/16 09:01 12/20/16 09:00 Acetaminophen (Tylenol Tab) 650 mg Q4H PRN PO 11/20/16 11:45 12/20/16 11:44 Sodium Chloride 250 ml @ 999 mls/hr Q16M PRN IV 11/20/16 11:43 12/20/16 11:42 Atropine Sulfate (Atropine Sulfate 0.1MG/Ml Inj) 0.6 mg PRN PRN IV 11/20/16 11:45 12/20/16 11:44 Ondansetron HCl (Zofran Inj) 4 mg Q6H PRN IV 11/20/16 11:45 12/20/16 11:44 Sodium Chloride 1,000 ml @ 100 mls/hr Q10H IV 11/20/16 17:00 12/20/16 16:59 11/20/16 17:00 100 MLS/HR Lorazepam (Ativan Tab) 0.25 mg Q6 PRN PO 11/20/16 18:30 12/20/16 18:29 Review of Systems no further complaints on 10 point ROS except what is mentioned in HPI Physical Exam Date Time Temp Pulse Resp B/P (MAP) Pulse Ox O2 Delivery O2 Flow Rate FiO2 11/20/16 18:00 36.7 71 19 147/90 (109) 98 Room Air 11/20/16 16:00 Room Air 11/20/16 15:40 36.7 67 18 177/82 (113) 97 Room Air 11/20/16 15:17 36.7 67 18 177/82 (113) 97 Room Air 11/20/16 13:50 76 18 134/71 (92) 100 Room Air 11/20/16 13:20 76 16 166/75 (105) 100 Room Air 11/20/16 12:50 70 16 168/78 (108) 100 Room Air 11/20/16 12:35 72 16 132/76 (94) 99 Room Air 11/20/16 12:20 70 16 126/80 (95) 99 Room Air 11/20/16 12:05 69 16 112/68 (83) 99 Room Air 11/20/16 12:00 Room Air 11/20/16 11:50 36.7 65 16 150/81 (104) 100 Room Air 11/20/16 11:30 74 16 140/70 (93) 100 Room Air 11/20/16 08:00 98 Room Air 11/20/16 07:40 36.8 54 16 133/70 (91) 95 Room Air 11/20/16 05:29 36.7 57 16 135/65 96 Room Air 2.0 11/20/16 04:00 Room Air 11/20/16 04:00 36.7 57 16 135/65 (88) 96 Room Air 11/20/16 00:00 Room Air 11/20/16 00:00 36.4 58 18 135/61 (85) 98 Room Air General Appearance: sleeping comfortably no distress Head: normocephalic, atraumatic Eyes: normal inspection, sclerae normal NEIL ENT: pharynx normal no LN Neck: supple, no JVD, trachea midline no stridor Respiratory/Chest: bilateral CTA no tenderness or adventitious sounds Cardiovascular: regular rate, rhythm, no murmur, HR 84/min Abdomen/GI: normal bowel sounds, non tender, soft no megalies. Extremities/Musculoskelatal: + pedal edema and changes of vascualr insufficiency LE but warm to touch no clubbing Neurologic/Psych: alert, normal mood/affect, oriented x 3 Laboratory Results Last 24 Hours Test 11/19/16 22:02 11/20/16 05:36 11/20/16 07:29 11/20/16 12:29 Total Creatine Kinase 254 U/L Creatine Kinase MB 0.8 ng/ml Creatine Kinase MB Ratio 0.3 Troponin I < 0.015 ng/ml White Blood Count 2.90 K/uL Red Blood Count 3.80 M/uL Hemoglobin 10.8 g/dL Hematocrit 34.1 % Mean Corpuscular Volume 89.7 fL Mean Corpuscular Hemoglobin 28.4 pg Mean Corpuscular Hemoglobin Concent 31.7 g/dl RDW Standard Deviation 43.7 fL RDW Coefficient of Variation 13.4 % Platelet Count 147 K/uL Mean Platelet Volume 10.1 fL Bedside Glucose 102 mg/dl 87 mg/dl Test 11/20/16 16:18 11/20/16 17:37 11/20/16 18:03 11/20/16 20:49 Bedside Glucose 118 mg/dl 127 mg/dl White Blood Count 3.81 K/uL Red Blood Count 3.84 M/uL Hemoglobin 11.3 g/dL Hematocrit 34.3 % Mean Corpuscular Volume 89.3 fL Mean Corpuscular Hemoglobin 29.4 pg Mean Corpuscular Hemoglobin Concent 32.9 g/dl RDW Standard Deviation 43.8 fL RDW Coefficient of Variation 13.5 % Platelet Count 155 K/uL Mean Platelet Volume 10.0 fL Sodium Level 139 mmol/L Potassium Level 3.8 mmol/L Chloride Level 106 mmol/L Carbon Dioxide Level 25 mmol/L Anion Gap 8.0 mmol/L Blood Urea Nitrogen 17 mg/dl Creatinine 0.84 mg/dl Est Creatinine Clear Calc Drug Dose 56.6 ml/min Estimated GFR () 77.7 Estimated GFR (Non- 67.0 BUN/Creatinine Ratio 20.0 Random Glucose 112 mg/dl Calcium Level 8.9 mg/dl Total Bilirubin 0.5 mg/dl Aspartate Amino Transf (AST/SGOT) 18 U/L Alanine Aminotransferase (ALT/SGPT) 16 U/L Alkaline Phosphatase 96 U/L Total Creatine Kinase 231 U/L Creatine Kinase MB 1.1 ng/ml Creatine Kinase MB Ratio 0.5 Troponin I 0.024 ng/ml Total Protein 6.4 gm/dl Albumin 3.0 gm/dl Globulin 3.4 gm/dl Albumin/Globulin Ratio 0.9 Lyme Disease IgG Antibody NEG Lyme Disease IgM Antibody NEG Diagnostic Results ECG pause as above/ The ascending thoracic aorta measures up to 4.2 cm in diameter, unchanged. Study is an adequate to evaluate for a dissection due to the lack of contrast within the aorta. Focal mild stenosis within the proximal right subclavian artery due to the calcified plaque. This remains unchanged. No filling defects within the pulmonary arteries to suggest pulmonary embolus. The heart is mildly enlarged. Mitral annulus calcifications. Postoperative changes at the esophagogastric junction there is persistent moderate dilatation of the esophagus which is fluid-filled. This has slightly progressed. Visualized liver and spleen are unremarkable. No mediastinal or hilar lymphadenopathy. No pneumothorax. The central airways are patent. The lungs are essentially clear. Assessment & Plan 75 yo female with above medical comorbidities namely CAD admitted with stable angina s/p angiography developed bradyarrhtythmia and ventricular arrhytmia in MICU for monitoring and management. ativan for anxiety citalopram to continue ASA 81 mg daily plavix 75 mg daily will hold off beta blockers patient is NPO for a permanent defibrilator/pacemaker in am keep transcutaneous pacing pads at bedside atropine 0.5 mg IV if bradycardiac per cardiology we may start her on dopamin drip should she need intermediate term chroncotrope lipitor 10 mg daily no foci of infection at this point NPO continue pantoprazole FU and replete lytes IVF NS at 75 ml/hr lovenx 40 mg SC for DVT prophylaxis sugar controlled and FeSO4 on board She will be observed in MICU and will get a pacemaker in am. I spent a total of 40 min of CC time managing her
[2016-11-21] VITALS (25 sets, daily range): BP systolic 103–137; BP diastolic 57–80; PULSE 58–88; TEMP 36.7–36.9; O2SAT 93–98
[2016-11-21 01:10] LABS: CKMB/CK RATIO 0.5 (0-3.0)
[2016-11-21] MEDS: SODIUM CHLORIDE 0.9% 1000ML 1,000 ML IV SCH ×2 (02:55→15:41)
[2016-11-21 05:58] LABS: HEMATOCRIT 32.1 % (37-47); MEAN CELL VOLUME 89.4 fL (80-100); MEAN CORPUSCULAR HEMOGLOBIN 28.7 pg (25-34); MEAN CORPUSCULAR HGB CONC 32.1 g/dl (32-36); MEAN PLATELET VOLUME 10.2 fL (7.4-10.4); PLATELET COUNT 155 K/uL (130-400); RED BLOOD COUNT 3.59 M/uL (4.2-5.4); WHITE BLOOD COUNT 3.23 K/uL (4.8-10.8)
[2016-11-21 06:37] LABS: BUN/CREATININE RATIO 22.9 (10-20); CALCIUM 8.4 mg/dl (8.5-10.1); CREATININE 0.85 mg/dl (0.60-1.20); MAGNESIUM 1.9 mg/dl (1.8-2.4); POTASSIUM 4.1 mmol/L (3.5-5.1)
[2016-11-21 06:42] LABS: CKMB/CK RATIO 0.5 (0-3.0)
[2016-11-21] MEDS: INSULIN ASPART 100 UNITS/ML 3 ML PEN SC SCH ×4 (06:45→22:07)
[2016-11-21] MEDS: ASPIRIN 81 MG ECTAB PO SCH (07:13)
[2016-11-21] MEDS: FLINTSTONES COMPLETE CHEWABLE TAB PO SCH (09:00)
[2016-11-21] MEDS: INSULIN GLARGINE SOLOSTAR 100 UNITS/ML 3 ML PEN SC SCH (09:00)
[2016-11-21] MEDS: FERROUS SULFATE 325 MG TAB PO SCH (09:00)
[2016-11-21] MEDS: CLOPIDOGREL BISULFATE 75 MG TAB PO SCH (09:00)
[2016-11-21] MEDS: DOCUSATE SODIUM/SENNA 50/8.6MG TAB PO SCH ×2 (09:00→22:05)
--- NOTE | 2016-11-21 09:13 | CARDIOLOGY PROGRESS NOTE ---
DATE: 11/21/2016 DATE: 11/21/2016 FOLLOW-UP VISIT SUBJECTIVE: The patient is a 75-year-old female who has been followed by Dr. Pichardo for many years with ischemic heart disease. She has had multiple coronary interventions with the first being in 1995 in the right coronary artery. In 2011, she underwent rotational atherectomy and stenting of the right coronary artery and then had a follow-up mid LAD treated with a drug-eluting stent. The patient presented with progressive exertional angina. She was admitted for cardiac catheterization. She is known to be difficult access due to severe diffuse arteriosclerotic disease and calcification of the arteries. She underwent a cardiac catheterization by myself yesterday through the right radial approach. We were able to complete coronary angiography of the left coronary artery; however, at the origin of the right subclavian from the aorta there is some narrowing and heavy calcification. I was not able to completely engage the right coronary artery, but flush injections revealed this artery to be patent. The LAD has a high grade stenosis which is heavily calcified just proximal to the previous coronary stent. I reviewed these films yesterday with Dr. Devon Gandara at [facility] in [place]. He was willing to do a high risk procedure there and arrangements were being made for the patient to go electively there this coming Thursday. Late yesterday afternoon; however, the patient got up out of bed and suddenly had a prolonged asystole of approximately 8 seconds with slow to recover ventricular escape for several more seconds and then returning back to sinus rhythm. The patient was admitted to the ICU. Although this may have been vasovagal event, it is of concern and the patient does admit that she has had previous episodes like this in the recent past. The patient has remained stable in the ICU without further arrhythmias. The plan is for the patient to have an elective pacemaker implanted today. We will then adjust her medications appropriately and then reconsider sending her out for an elective intervention on the LAD to [facility] in a few weeks. I discussed this with the patient and her lintecea-up-szh, Meghan, who was in the room today. She is agreeable to this plan. I explained the risks, benefit and intent of the pacemaker and/or further treatment and she is agreeable to proceed. OBJECTIVE: GENERAL: She is alert and oriented in no acute distress. VITAL SIGNS: Blood pressure is 130/80, pulse is regular at 75. She is afebrile. HEAD, EYES, EARS, NOSE, AND THROAT: She is normocephalic. Pupils are equal and reactive to light. Extraocular muscles are intact bilaterally. NECK: The neck veins are flat. Carotids have good upstrokes bilaterally without bruits. Thyroid is nonpalpable. RESPIRATORY: Breath sounds equal bilaterally and clear to auscultation. CARDIOVASCULAR: Heart has a regular rhythm. There is a systolic murmur along the left sternal border. No S3, S4. GASTROINTESTINAL: Abdomen is soft, nontender without organomegaly. EXTREMITIES: Free of edema, digit clubbing, or cyanosis. NEUROLOGIC: Grossly intact. SKIN: Warm to touch. LYMPH NODES: Negative to palpation. LABORATORY DATA: Hemoglobin is 10.3. Potassium is 4.1, creatinine 0.85. Troponin is 0.032. IMPRESSIONS: 1. Severe heavily calcified coronary artery disease with a high grade stenosis of the LAD, most likely causing the patient's exertional angina. 2. Previous multiple coronary interventions including stents in the right coronary and LAD in 2011. 3. Sick sinus syndrome with symptomatic bradycardia. RECOMMENDATIONS: As outlined above, the patient will receive a permanent pacemaker today. We will then adjust her medications including adding a beta marie to her current medical regimen. Once the patient has recovered from her pacemaker reimplant we can reconsider the option of a high risk intervention at [facility]. Plan is for the pacemaker to be inserted today.
[2016-11-21] MEDS: LEVOTHYROXINE 50 MCG TAB PO SCH (09:17)
[2016-11-21] MEDS: CALCIUM 600MG + VIT D 400 IU TAB PO SCH ×2 (09:17→22:05)
[2016-11-21] MEDS: ATORVASTATIN 10 MG TAB PO SCH (09:18)
[2016-11-21] MEDS: ISOSORBIDE MONONITRATE 30 MG TABCR PO SCH (09:18)
[2016-11-21] MEDS: PANTOprazole SOD 40 MG TAB PO SCH ×2 (09:19→22:05)
[2016-11-21] MEDS: CITALOPRAM 40 MG TAB PO SCH (09:19)
[2016-11-21] MEDS ORDERED: IV FLUIDS COMPLETED PRN (12:00)
[2016-11-21] MEDS ORDERED: MIDAZOLAM HCL 5 MG/ML 1 ML VIAL ONE (12:24)
[2016-11-21] MEDS ORDERED: FENTANYL CITRATE INJ 50 MCG/1 ML 2 ML VIAL ONE ×2 (12:24→13:34)
[2016-11-21] MEDS ORDERED: BACITRACIN 50000 UNIT VIAL ONE (12:25)
[2016-11-21] MEDS ORDERED: LIDOCAINE HCL 1% 20 ML VIAL ONE (12:25)
[2016-11-21] MEDS ORDERED: BUPIVACAINE 0.5 % 5 MG/1 ML MPF 30ML VIAL ONE (12:25)
--- NOTE | 2016-11-21 12:35 | History & Physical Bridge Note ---
H&P Re-Evaluation Bridge Note: I have examined the patient, reviewed the History & Physical and in the interval since the performance of the History & Physical I have noted the following changes of clinical significance: pt with sinus arrest yesterday with known severe CAD. Recommend dual chamber ppm.
--- NOTE | 2016-11-21 12:35 | Procedure Note ---
Pre-Mod Sedation Assessment General Date of Moderate Sedation: Nov 21, 2016. Vital Signs: Vital Signs Past 12 Hours Date Time Temp Pulse Resp B/P (MAP) Pulse Ox O2 Delivery O2 Flow Rate FiO2 11/21/16 11:00 36.8 82 16 126/63 (84) 96 Room Air 11/21/16 10:10 80 11 110/64 (79) 96 Room Air 11/21/16 10:01 78 22 110/64 (79) 98 Room Air 11/21/16 09:39 36.7 18 123/57 97 Room Air 11/21/16 09:01 36.7 72 26 123/57 (79) 96 Room Air 11/21/16 08:05 97 Room Air 11/21/16 08:01 74 18 129/63 (85) 97 Room Air 11/21/16 06:00 75 18 137/80 (99) 95 11/21/16 04:00 36.9 71 18 127/69 (88) 97 11/21/16 04:00 93 Room Air 11/21/16 02:01 76 17 122/60 (80) 95 Room Air 11/21/16 01:01 76 14 123/67 (85) 96 Review Cardiovascular: regular rate, rhythm Abdomen: soft Lungs: lungs clear Airway Class: II Pre-Sedation Airway Assessment Oral Cavity: Dentures Short Thick Neck: No Hx of Sleep Apnea: No Smoking Status: Never Smoker Mallampati Classification: Class II ASA Classification: Class II Procedure Planning Contraindications-for Mod Sed: None Yes Notes The planned sedation has been discussed with the patient and consent obtained. I have identified the patient, determined the appropriateness of sedation and have assessed the patient immediately prior to the procedure. All medicine(s) and interventions are by my order.
[2016-11-21] MEDS ORDERED: KEFZOL SPECIAL PROCEDURE STOCK 1 GM ADDVIAL IV ONE (12:36)
--- NOTE | 2016-11-21 14:03 | [facility] Post Operative Brief Note ---
Immediate Operative Summary Operative Date Nov 21, 2016. Pre-Operative Diagnosis sss Post-Operative Diagnosis same Procedure(s) Performed dual chamber rate responsive permanent pacemaker under fluroscopic guidance Surgeon lisa liriano [employer] Supervisor Surgeon(s) none Estimated Blood Loss <10cc Findings see official report Fluids (cc crystalloids) 100cc Specimens none Drains none Anesthesia 5mg versed and 125mcg fentantyl Complication(s) None Disposition PCU
[2016-11-21] MEDS ORDERED: ACETAMINOPHEN/CODEINE 300/30MG TAB PO PRN (14:15)
--- NOTE | 2016-11-21 15:36 | OPERATIVE REPORT ---
DATE OF OPERATION: 11/21/2016 PREOPERATIVE DIAGNOSIS: Sick sinus syndrome. POSTOPERATIVE DIAGNOSIS: Same. PROCEDURE: Dual chamber rate responsive permanent pacemaker under fluoroscopic guidance. SURGEON: Dr. Summer Calles. PROTOTYPE FABRICATOR: None. ANESTHESIA: Monitored conscious sedation administered by Davian Ying under my supervision. Start time 1249, end time 1355. A total of 5 mg of Versed, 125 mcg of fentanyl. INTRAVENOUS FLUIDS: 100 mL. BLOOD LOSS: Less than 10 mL. ANTIBIOTIC: 2 grams Ancef. COMPLICATIONS: None. CONDITION: Stable. URINE OUTPUT: None. SPECIMEN: None. DRAINS: None. FINDINGS: See below. INDICATIONS: This is a 75-year-old female with a past medical history for significant coronary artery disease in which she first underwent PTCA to the RCA back in 1995, then had rotor arthrectomy to the RCA in 2011 followed by intervention to the mid LAD in December 2011, diabetes, obesity, hypothyroidism, hyperlipidemia, anemia, mild aortic stenosis, mild mitral stenosis, myelodysplastic syndrome. The patient has been having dyspnea on exertion, shortness of breath and was admitted for cardiac catheterization. Yesterday she underwent the procedure without any complications. There was no intervention. Though was maybe to consider high risk intervention to the LAD. About 7-8 hours post-catheterization procedure, she had a sinus arrest with about 8-second pause and syncope followed then by about 8 seconds of a slow ventricular escape rhythm. Due to her significant coronary artery disease and possible angina and this significant sick sinus arrest syndrome she was recommended dual chamber permanent pacemaker, so that we could also try to start beta blockers. CONSENT: Consent was obtained prior to the patient going into the electrophysiology lab. The patient was informed of the risks, benefits, alternatives to the procedure. Risks include but not limited to sudden cardiac , cardiac arrhythmias, cerebrovascular accident, myocardial infarction, injury to the blood vessels, chamber of the heart, lungs, bleeding and infection. The patient understood these risks and agreed to the procedure as planned. Informed consent was obtained. DESCRIPTION OF THE PROCEDURE: The patient was brought into the electrophysiology lab in a fasting state. She was connected to continuous manager cardiac. Time out was performed to confirm patient's identify and procedure correctly. The patient was prepped and draped over the left infraclavicular space in normal surgical standard fashion. Moderate conscious sedation was given throughout the procedure under my supervision throughout the case. Garber precautions were maintained throughout the procedure. A 10 mL of 1% lidocaine, bupivacaine mixture were given in the left deltopectoral groove. Incision was made in the left deltopectoral groove. Blunt dissection was performed down to identify the cephalic vein. The cephalic vein was isolated using 0 silk ties and nicked with an 11 blade and a guidewire was inserted without any resistance. The 8-Nepali sheath was inserted over the guidewire without any resistance and the dilator was removed. A second guidewire was inserted through the 8-Nepali sheath to allow for retained venous access. The sheath was then removed, flushed, dilator reinserted over it and then the sheath was reinserted over one of the guidewires without any resistance. The guidewire and dilator were removed. The right ventricular pacing lead was then advanced into the right ventricle and positioned into the right ventricular apex under fluoroscopic guidance. There was adequate pacing and sensing thresholds and no diaphragmatic stimulation with high output pacing. The 8-Nepali sheath was then peeled away and lead was fixated to the pectoralis muscle using 0 silk suture. A second 8-Nepali sheath was then inserted over the retained guidewire without any resistance. The guidewire and dilator were removed. Right atrial pacing lead was then advanced into the right atrium and positioned into the right atrial appendage under fluoroscopic guidance. There was adequate pacing and sensing thresholds and no diaphragmatic stimulation with high output pacing. The 8-Nepali sheath was then peeled away and lead was fixated to the pectoralis muscle using 0 silk suture. A pursestring using 2-[address] needle was placed around the venous puncture site to stop any further back bleeding. Then 5 mL of 1% lidocaine, bupivacaine mixture were given in the pectoralis fascia and then using blunt dissection within the pectoral fascia over the pectoralis muscle, a pacemaker pocket was created. The pocket was flushed with copious amounts of bacitracin saline wash and inspected for hemostasis. The pulse generator was then attached to the leads making sure that the pins were in appropriate position, passed the set screws and the set screws were all tightened. The pulse generator was then placed in the pocket, making sure that the leads were lying flat beneath the device and a stay stitch using 0 silk suture was used to secure the device to the pectoralis muscle. [place] stat was then placed in the pocket, then the incision was closed in a 3-layer fashion using a 2-0 Vicryl interrupted suture followed by a 3-0 Vicryl interrupted suture followed by a 4-0 Monocryl running stitch and Dermabond was applied. EQUIPMENT: 1. Pulse generator is a Medtronic Advisa DR BOYCE CooperDianelys [id number], serial #[id number]. 2. Right atrial lead Medtronic 5076-52 cm, serial #[id number]. 3. Right ventricular lead Medtronic 5076-58 cm, serial #[id number]. INTRAOPERATIVE TESTIN. Right atrial lead P-wave 3.4 millivolts, impedance 503 ohms, threshold 0.3 volts at 0.4 milliamps. 2. Right ventricular lead R-waves 8.6 millivolts, impedance 976 ohms, threshold 0.6 volts at 0.7 milliamps. FINAL MEASUREMENTS THROUGH THE DEVICE 1. Right atrial lead: P-wave 3.9 millivolts, impedance 380 ohms, threshold 0.75 volts at 0.4 milliseconds. 2. Right ventricular lead R-wave 16.1 millivolts, impedance 627 ohms, threshold 0.5 volts at 0.4 milliseconds. FINAL PARAMETERS: MVP-R 60/120. Right atrial amplitude 3.5 volts, pulse width 0.4 milliseconds, sensitivity 0.3 millivolts. Right ventricular amplitude 3.5 volts, pulse width 0.4 milliseconds, sensitivity 0.9 millivolts. IMPRESSION: Successful implantation of dual chamber rate responsive permanent pacemaker under fluoroscopic guidance secondary to sick sinus syndrome. PLAN: Monitor patient overnight, 12-lead ECG, chest x-ray. She cannot lift the left elbow over the left shoulder for 1 month. She cannot lift more than 10 pounds with the left arm for 2 weeks. She can shower tomorrow, let water run over the incision, do not scrub it. We will give her a dose of short acting metoprolol 25 mg tonight and then most likely change that to long-acting Toprol 25 mg daily. We will defer this to general cardiology. She should follow up in our [facility] office in 7-10 days for device and wound check. I attest to the content of the Intraoperative Record and any orders documented therein. Any exceptions are noted below. MTDD
--- NOTE | 2016-11-21 17:41 | Progress Note ---
Medicine Progress Note Date & Time of Visit: Nov 21, 2016 at 17:32. (Madisyn Crowell PA-C) Subjective Patient seen in ICU after undergoing pacemaker placement this afternoon. Eating her supper in bedside chair. Has some discomfort at pacemaker site. No further dizziness or syncope. Denies chest pain, SOB, N/V. Has voided after procedure. (Madisyn Crowell PA-C) Objective Last 8 Hrs Date Time Temp Pulse Resp B/P (MAP) Pulse Ox O2 Delivery O2 Flow Rate FiO2 11/21/16 16:05 96 Room Air 11/21/16 15:45 36.7 88 18 132/71 (91) 97 Room Air 11/21/16 15:30 81 17 113/65 (81) 98 Room Air 11/21/16 15:15 83 19 128/65 (86) 96 Room Air 11/21/16 15:06 84 13 119/60 (79) 98 Room Air 11/21/16 14:26 36.7 82 17 127/68 (87) 96 11/21/16 14:26 82 17 127/68 (87) 96 11/21/16 14:10 80 16 116/70 (85) 96 Room Air 11/21/16 13:55 80 16 110/67 (81) 96 Room Air 11/21/16 12:02 95 Room Air 11/21/16 12:00 23 107/58 (74) 11/21/16 11:00 36.8 82 16 126/63 (84) 96 Room Air 11/21/16 10:10 80 11 110/64 (79) 96 Room Air 11/21/16 10:01 78 22 110/64 (79) 98 Room Air 11/21/16 09:39 36.7 18 123/57 97 Room Air Physical Exam: General-alert elderly female, sitting in chair with supper tray, no distress Eyes-anicteric ENT- hearing intact Neck- trachea midline Lungs-CTA bilaterally, no wheezes, crackles, or rhonchi, no respiratory distress Chest- pacemaker insertion site clean/dry/intact Heart-RRR, systolic murmur Abdomen-soft, nontender, normal BS Extremities-no edema, no calf tenderness, no deformity Neuro- alert, oriented x 3, affect normal Laboratory Results: Last 24 Hours Test 11/20/16 17:37 11/20/16 18:03 11/20/16 20:40 11/21/16 00:08 Bedside Glucose 127 mg/dl 104 mg/dl White Blood Count 3.81 K/uL Red Blood Count 3.84 M/uL Hemoglobin 11.3 g/dL Hematocrit 34.3 % Mean Corpuscular Volume 89.3 fL Mean Corpuscular Hemoglobin 29.4 pg Mean Corpuscular Hemoglobin Concent 32.9 g/dl RDW Standard Deviation 43.8 fL RDW Coefficient of Variation 13.5 % Platelet Count 155 K/uL Mean Platelet Volume 10.0 fL Sodium Level 139 mmol/L Potassium Level 3.8 mmol/L Chloride Level 106 mmol/L Carbon Dioxide Level 25 mmol/L Anion Gap 8.0 mmol/L Blood Urea Nitrogen 17 mg/dl Creatinine 0.84 mg/dl Est Creatinine Clear Calc Drug Dose 56.6 ml/min Estimated GFR () 77.7 Estimated GFR (Non- 67.0 BUN/Creatinine Ratio 20.0 Random Glucose 112 mg/dl Calcium Level 8.9 mg/dl Magnesium Level 1.8 mg/dl Total Bilirubin 0.5 mg/dl Aspartate Amino Transf (AST/SGOT) 18 U/L Alanine Aminotransferase (ALT/SGPT) 16 U/L Alkaline Phosphatase 96 U/L Total Creatine Kinase 231 U/L 209 U/L Creatine Kinase MB 1.1 ng/ml 1.1 ng/ml Creatine Kinase MB Ratio 0.5 0.5 Troponin I 0.024 ng/ml 0.041 ng/ml Total Protein 6.4 gm/dl Albumin 3.0 gm/dl Globulin 3.4 gm/dl Albumin/Globulin Ratio 0.9 Lyme Disease IgG Antibody NEG Lyme Disease IgM Antibody NEG Test 11/21/16 03:50 11/21/16 05:33 11/21/16 10:50 11/21/16 16:37 Bedside Glucose 86 mg/dl 72 mg/dl 86 mg/dl White Blood Count 3.23 K/uL Red Blood Count 3.59 M/uL Hemoglobin 10.3 g/dL Hematocrit 32.1 % Mean Corpuscular Volume 89.4 fL Mean Corpuscular Hemoglobin 28.7 pg Mean Corpuscular Hemoglobin Concent 32.1 g/dl RDW Standard Deviation 43.4 fL RDW Coefficient of Variation 13.2 % Platelet Count 155 K/uL Mean Platelet Volume 10.2 fL Sodium Level 142 mmol/L Potassium Level 4.1 mmol/L Chloride Level 110 mmol/L Carbon Dioxide Level 27 mmol/L Anion Gap 5.0 mmol/L Blood Urea Nitrogen 19 mg/dl Creatinine 0.85 mg/dl Est Creatinine Clear Calc Drug Dose 56.0 ml/min Estimated GFR () 76.6 Estimated GFR (Non- 66.1 BUN/Creatinine Ratio 22.9 Random Glucose 75 mg/dl Calcium Level 8.4 mg/dl Magnesium Level 1.9 mg/dl Total Creatine Kinase 202 U/L Creatine Kinase MB 1.1 ng/ml Creatine Kinase MB Ratio 0.5 Troponin I 0.032 ng/ml Date/Time Source Procedure Growth Status 11/21/16 09:30 Nasal MRSA DNA Surveillance Screen - Final Specimen Negative for MRSA by DNA Probe Complete (Madisyn Crowell PA-C) Assessment & Plan SICK SINUS SYNDROME/ SYMPTOMATIC BRADYCARDIA S/p permanent pacemaker 11/21/16 Doing well postop- will be transferred from ICU to [facility] EXERTIONAL ANGINA R/o ACS; hx CAD s/p RCA stent in 1995, atherectomy and stenting of RCA in July 2011, and AZALIA to mid LAD Dec 2011 Troponin negative x 3; EKG- sinus with 1st degree AV block, nonspecific intraventricular conduction block, no ST or T wave abnormality Echo- "Normal LV chamber size with mild concentric LVH. * Normal LV systolic function, EF 55-60%. * No segmental left ventricular wall motion abnormalities are noted. * Grade II diastolic dysfunction.* Moderately calcified, trileaflet aortic valve with borderline to mild aortic stenosis, no regurgitation. * There is moderate mitral annular calcification. Calcified mitral apparatus causing mitral stenosis. There is mild mitral regurgitation. Stenosis not quantified, visually appears to be mild. * Moderate left atrial enlargement." Continued on aspirin, Plavix, atorvastatin, Imdur added Was not on beta marie due to intolerance Cardiology on board; appreciate input Underwent cardiac cath 11/20/16- "Heavily calcified coronaries. RCA with flush shot only, appears patent. Subtotal mid LAD proximal to previous stent. Subtotal diagonal artery proximal. Left Circumflex patent. Unable to engage RCA from right transradial approach. Tried access from right femoral without success." Noted on cath report that films will be reviewed at [facility] Plan is to consider elective procedure at [facility] in a few weeks FLUID FILLED DISTENDED ESOPHAGUS GI cocktail given on admission No abdominal pain, N/V, reflux, or swallowing issues Consult GI; appreciate input, PPI started, recommended considering outpatient evaluation for dysmotility with barium swallow vs esophageal manometry if if CP symptoms persist or if develops dysphagia/ odynophagia; no inpatient GI intervention CHRONIC DIASTOLIC DYSFUNCTION Currently euvolemic DM TYPE 2 Continue Lantus Novolog sliding scale HYPOTHYROIDISM Continue levothyroxine CODE STATUS Changed to FULL CODE per Dr. Auguste's discussion with patient and family DISPOSITION Telemetry Follows with Dr. Dobbs for primary care Patient seen in collaboration with Dr. Billy. Please see her addendum. Current Inpatient Medications: Current Inpatient Medications Medications (Trade) Dose Ordered Sig/Arlin Route Start Time Stop Time Status Last Admin Dose Admin Ioversol (Optiray 320) 100 ml UD PRN IV 11/19/16 11:15 11/23/16 11:14 Nitroglycerin (Nitrostat Tab) 0.4 mg UD PRN SL 11/19/16 12:15 12/19/16 12:14 Enoxaparin Sodium (Lovenox Inj) 40 mg Q24H SQ 11/19/16 21:00 12/19/16 20:59 Future Hold Insulin Aspart (novoLOG ASPART) SLIDING SCALE If C... ACHS SC 11/19/16 16:30 12/19/16 16:29 11/19/16 17:36 3 UNITS Glucose (Glucose 40% Gel) 15-30 GRAMS 15 GRAMS... UD PRN PO 11/19/16 13:00 12/19/16 12:59 Glucose (Glucose Chew Tab) 4-8 Tablets 4 Tabl... UD PRN PO 11/19/16 13:00 12/19/16 12:59 Dextrose (Dextrose 50% 50ML Syringe) 25-50ML OF 50% DW IV FOR... UD PRN IV 11/19/16 13:00 12/19/16 12:59 Glucagon (Glucagon Inj) 1 mg UD PRN SQ 11/19/16 13:00 12/19/16 12:59 Aspirin (Ecotrin Tab) 81 mg QAM PO 11/20/16 09:00 12/20/16 08:59 Atorvastatin Calcium (Lipitor Tab) 10 mg DAILY PO 11/20/16 09:00 12/20/16 08:59 11/21/16 09:18 10 MG Citalopram Hydrobromide (celeXA TAB) 40 mg DAILY PO 11/20/16 09:00 12/20/16 08:59 11/21/16 09:19 40 MG Clopidogrel Bisulfate (plAVix TAB) 75 mg DAILY PO 11/20/16 09:00 12/20/16 08:59 Insulin Glargine (Lantus Solostar Pen) 16 units QAM SC 11/20/16 09:00 12/20/16 08:59 11/20/16 09:40 8 UNITS Levothyroxine Sodium (Synthroid Tab) 50 mcg DAILYBB PO 11/20/16 06:30 12/20/16 06:59 11/21/16 09:17 50 MCG Senna/Docusate Sodium (Senokot S Tab) 2 tab BID PO 11/19/16 21:00 12/19/16 20:59 11/20/16 21:21 2 TAB Calcium/Vitamin D (Caltrate Plus Tab) 1 tab BID PO 11/19/16 21:00 12/19/16 20:59 11/21/16 09:17 1 TAB Ferrous Sulfate (Feosol Tab) 325 mg DAILY PO 11/20/16 09:00 12/20/16 08:59 Multivitamins (Flintstones Complete Tab) 1 tab DAILY PO 11/20/16 09:00 12/20/16 08:59 Miscellaneous (Iv Fluids Completed) 1 ea PRN PRN N/A 11/19/16 14:00 11/19/17 13:59 Pantoprazole Sodium (Protonix Tab) 40 mg BID PO 11/19/16 21:00 12/19/16 20:59 11/21/16 09:19 40 MG Acetaminophen (Tylenol Tab) 650 mg Q4H PRN PO 11/20/16 11:45 12/20/16 11:44 Sodium Chloride 250 ml @ 999 mls/hr Q16M PRN IV 11/20/16 11:43 12/20/16 11:42 Atropine Sulfate (Atropine Sulfate 0.1MG/Ml Inj) 0.6 mg PRN PRN IV 11/20/16 11:45 12/20/16 11:44 Ondansetron HCl (Zofran Inj) 4 mg Q6H PRN IV 11/20/16 11:45 12/20/16 11:44 Sodium Chloride 1,000 ml @ 100 mls/hr Q10H IV 11/20/16 17:00 12/20/16 16:59 11/21/16 15:41 100 MLS/HR Lorazepam (Ativan Tab) 0.25 mg Q6 PRN PO 11/20/16 18:30 12/20/16 18:29 Isosorbide Mononitrate (Imdur Ext Rel Tab) 30 mg QAM PO 11/21/16 09:00 12/21/16 08:59 11/21/16 09:18 30 MG Miscellaneous (Iv Fluids Completed) 1 ea PRN PRN N/A 11/21/16 12:00 11/21/17 11:59 Acetaminophen/ Codeine Phosphate (Tylenol w/ Codeine #3 Tab) 1 tab for pain scale 4-6 2 t... Q4H PRN PO 11/21/16 14:15 12/21/16 14:14 Metoprolol Tartrate (Lopressor Tab) 25 mg ONE PO 11/21/16 19:00 11/22/16 12:00 UNV (Madisyn Crowell PA-C) Pt seen and examined and agree with the assessment and plan as stated. Moving her out of ICU to telemetry. Likely DC in am. DO Wenceslao (Leonarda Billy DO)
[2016-11-21] MEDS ORDERED: NURSING VERBAL MED ORDER ONE (17:45)
[2016-11-21] MEDS ORDERED: METOPROLOL TARTRATE 25 MG TAB PO SCH (19:00)
[2016-11-22 03:55] VITALS: BP 122/64; PULSE 56; TEMP 36.8; O2SAT 97
[2016-11-22] MEDS: LEVOTHYROXINE 50 MCG TAB PO SCH (06:15)
[2016-11-22 06:20] LABS: HEMATOCRIT 30.7 % (37-47); MEAN CELL VOLUME 88.7 fL (80-100); MEAN CORPUSCULAR HEMOGLOBIN 29.2 pg (25-34); MEAN CORPUSCULAR HGB CONC 32.9 g/dl (32-36); MEAN PLATELET VOLUME 10.1 fL (7.4-10.4); PLATELET COUNT 135 K/uL (130-400); RED BLOOD COUNT 3.46 M/uL (4.2-5.4); WHITE BLOOD COUNT 3.78 K/uL (4.8-10.8)
--- NOTE | 2016-11-22 06:50 | DIAGNOSTIC IMAGING REPORT ---
CHEST 2 VIEWS ROUTINE CLINICAL HISTORY: EXACT TIME ORDERED Evaluate for pneumothorax and lead placement COMPARISON STUDY: 02/09/2016 FINDINGS: Interval placement of a permanent bipolar cardiac pacemaker. Please in good position. No evidence pneumothorax. Lungs are clear. IMPRESSION: Bipolar cardiac pacemaker placement. Leads in good position. No evidence of pneumothorax. The above report was generated using voice recognition software. It may contain grammatical, syntax or spelling errors. Electronically signed by: Gamaliel Garay M.D. 11/22/2016 6:48 AM Dictated Date/Time: 11/22/2016 6:48 AM
[2016-11-22 06:52] LABS: BUN/CREATININE RATIO 29.4 (10-20); CALCIUM 8.7 mg/dl (8.5-10.1); CREATININE 0.79 mg/dl (0.60-1.20); MAGNESIUM 1.9 mg/dl (1.8-2.4); POTASSIUM 4.1 mmol/L (3.5-5.1)
[2016-11-22 07:42] VITALS: BP 112/61; PULSE 62; TEMP 36.7; O2SAT 97
[2016-11-22] MEDS: PANTOprazole SOD 40 MG TAB PO SCH (07:51)
[2016-11-22] MEDS: CITALOPRAM 40 MG TAB PO SCH (07:52)
[2016-11-22] MEDS: CLOPIDOGREL BISULFATE 75 MG TAB PO SCH (07:52)
[2016-11-22] MEDS: FERROUS SULFATE 325 MG TAB PO SCH (07:52)
[2016-11-22] MEDS: ATORVASTATIN 10 MG TAB PO SCH (07:52)
[2016-11-22] MEDS: ISOSORBIDE MONONITRATE 30 MG TABCR PO SCH (07:52)
[2016-11-22] MEDS: ASPIRIN 81 MG ECTAB PO SCH (07:52)
[2016-11-22] MEDS: FLINTSTONES COMPLETE CHEWABLE TAB PO SCH (07:53)
[2016-11-22] MEDS: DOCUSATE SODIUM/SENNA 50/8.6MG TAB PO SCH (07:53)
[2016-11-22] MEDS: INSULIN ASPART 100 UNITS/ML 3 ML PEN SC SCH ×2 (07:58→12:41)
[2016-11-22] MEDS: INSULIN GLARGINE SOLOSTAR 100 UNITS/ML 3 ML PEN SC SCH (07:59)
[2016-11-22] MEDS: CALCIUM 600MG + VIT D 400 IU TAB PO SCH (08:05)
[2016-11-22] MEDS ORDERED: METOPROLOL TARTRATE 25 MG TAB PO SCH (09:00)
[2016-11-22] MEDS ORDERED: NURSING VERBAL MED ORDER ONE (10:00)
[2016-11-22] MEDS ORDERED: TRIAMCINOLONE ACET 0.1% CR 15 GM TUBE EXT PRN (10:15)
[2016-11-22 11:35] VITALS: BP 118/70; PULSE 65; TEMP 36.8; O2SAT 97
--- NOTE | 2016-11-22 11:59 | Cardiology Follow-Up ---
Subjective General Date of Service: Nov 22, 2016. Chief Complaint: follow-up chest pain, cardiac cath, pacemaker Pt evaluation today including: conversation w/ patient, conversation w/ family , physical exam History of Present Illness The patient is a 75 year old female seen in cardiology follow-up with initial consultation having been performed by Dr. Caraballo. Patient is accompanied by her [id number]. She is feeling well. She has mild incision-related discomfort at the left infraclavicular pacemaker site, but denies any angina, lightheadedness, or dizziness. Telemetry reveals sinus rhythm with occasional atrial and occasional AV sequential pacing. EKG reveals stable findings with poor R-wave progression in the anteroseptal leads suggestive age undetermined anteroseptal infarction pattern, with no acute ST changes. Her pacemaker check today reveals appropriate function. Postprocedure chest x- ray this morning reveals appropriate lead placement with no evidence of pneumothorax. Allergies Coded Allergies: Adhesives (Verified Allergy, Unknown, ADHESIVE TAPE, 11/19/16) Social History Smoking Status: Never Smoker Hx Tobacco Use In Past Year?: No Hx Alcohol Use - Type And Amou: No Hx Substance Use - Type And Am: No Problem List Medical Problems: (1) Closed head injury Status: Acute (2) Dyspnea on exertion Status: Acute (3) Precordial chest pain Status: Acute Physical Exam Vital Signs Last Vital Signs Documentation Date Time Temp Pulse Resp B/P (MAP) Pulse Ox O2 Delivery O2 Flow Rate FiO2 11/22/16 11:35 36.8 65 18 118/70 (86) 97 Room Air 11/20/16 05:29 Physical Exam Constitutional: Level of Distress: NAD Head: normocephalic Neck: supple Lungs: Auscultation: CTA except as noted, no rales/crackles, no rhonchi Cardiovascular: Heart Auscultation: RRR, II/ CELESTINE Abdomen: Bowel Sounds: normal Inspection & Palpation: soft, non-distended, no tenderness, guarding & rebound Extremities: no edema Neurologic: Gait & Station: pertinent finding (no focal neurologic deficits) Additional Comments: Chest: Pacemaker site at the left infraclavicular position is clean dry and intact, with mild erythema, no drainage. Assessment and Plan Assessment and Plan Impression: 1. Patient admitted with complaints of chest discomfort and exertional shortness of breath consistent with angina. Serial cardiac enzymes were negative on presentation and echocardiogram revealed no segmental left ventricular wall motion abnormalities, and mild aortic valve stenosis and ejection fraction is normal at 60-65% 2. Patient underwent cardiac catheterization this admission the right radial artery approach. -Arterial access was technically difficult due to underlying vascular disease. -Patient was found to have a and LAD stenosis that was heavily calcified, and proximal to a presumed placed LAD stent 3. 8 second sinus arrest episode noted on 11/20/16 and therefore a dual-chamber Medtronic pacemaker was placed on 11/21/16 Plan: The tentative plan is for the patient to be discharged on medical therapy with plans for elective high-risk PCI at [facility] within about a week. She then had the sinus arrest episode, and given her baseline bradycardia and passing episodes, was felt to be prudent to keep her in the hospital for dual chamber pacemaker which was completed yesterday. Post procedure chest x-ray and pacemaker check within normal limits. Patient received a single dose of metoprolol tartrate last evening, and is going to be transition to metoprolol succinate today. She is stable for discharge from a cardiac perspective, on her right arrival cardiac medications including dual anti-platelet therapy with aspirin and clopidogrel, and new metoprolol succinate 25 mg by mouth daily. Due to the calcified nature of her LAD lesion, this is considered to be a high- risk procedure, will likely require rotational atherectomy and performed would need to be completed and a tertiary site. Tentative plan is for the patient to go home and recover from a pacemaker standpoint. She is to return to our office for wound check in 7-10 days. And pending upon her progress, we'll reassess timing of proceeding to cardiac catheterization. Patient was counseled that should she have her return of her anginal chest discomfort in the interim, with more intense chest discomfort does not go away with rest, she should return to the hospital via EMS. Outpatient device check appointment cardiology appointment will be arranged. Patient stable from my perspective for discharge after receiving her metoprolol dose. Sarah Arevalo, Laboratory Results Last 24 Hours Test 11/21/16 16:37 11/21/16 20:13 11/22/16 05:18 11/22/16 06:53 Bedside Glucose 86 mg/dl 193 mg/dl 125 mg/dl White Blood Count 3.78 K/uL Red Blood Count 3.46 M/uL Hemoglobin 10.1 g/dL Hematocrit 30.7 % Mean Corpuscular Volume 88.7 fL Mean Corpuscular Hemoglobin 29.2 pg Mean Corpuscular Hemoglobin Concent 32.9 g/dl RDW Standard Deviation 43.1 fL RDW Coefficient of Variation 13.4 % Platelet Count 135 K/uL Mean Platelet Volume 10.1 fL Sodium Level 139 mmol/L Potassium Level 4.1 mmol/L Chloride Level 106 mmol/L Carbon Dioxide Level 25 mmol/L Anion Gap 8.0 mmol/L Blood Urea Nitrogen 23 mg/dl Creatinine 0.79 mg/dl Est Creatinine Clear Calc Drug Dose 60.2 ml/min Estimated GFR () 83.7 Estimated GFR (Non- 72.2 BUN/Creatinine Ratio 29.4 Random Glucose 100 mg/dl Calcium Level 8.7 mg/dl Magnesium Level 1.9 mg/dl
[2016-11-22] MEDS ORDERED: METOPROLOL SUCC 25MG EXT REL TAB PO ONE (12:15)
[2016-11-22] MEDS ORDERED: IMDSR30 PO (13:46)
[2016-11-22] MEDS ORDERED: PRT40 PO (13:46)
[2016-11-22] MEDS ORDERED: TPRSR25 PO (13:46)
--- NOTE | 2016-11-22 14:02 | Discharge Instructions ---
Discharge Instructions Date of Service Nov 22, 2016. Admission Reason for Admission: Chest Pain Discharge Discharge Diagnosis / Problem: stable angina, symptomatic bradycardia Discharge Goals Goal(s): Prevent Disease Progression Activity Recommendations Activity Limitations: per Instructions/Follow-up section . Instructions / Follow-Up Instructions / Follow-Up Please take all medications as instructed above. Please follow-up with [facility] regarding the esophageal findings on initial imaging for further workup for possible esophageal dysmotility issues. a referral may be placed by your primary care physician ( PCP). Until that time, please continue PROTONIX 40mg twice daily. Regarding post-operative instructions from the pacemaker procedure: -Please do not lift the left elbow over you left shoulder for 1 month. -Please do not lift more than 10 pounds with the left arm for 2 weeks. -Showering is fine but please just allow the water to run over the incision site and do not scrub it. Please follow-up with the [facility] Cardiology office as instructed for a wound check and pacemaker check. Someone from the office should be contacting you regarding getting this scheduled. You have a follow-up appointment with Dr. Liza Dobbs on 11/27 @ 12:45pm for follow-up from this hospitalization. Please bring all discharge documentation with you to this appointment. 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 It was a pleasure taking care of you! Call if you have any questions or problems. You can reach a [facility] hospitalist on duty at [facility] 24 hours a day by calling [phone]. Take care of yourself. Leonarda Billy, [facility] Hospitalist Current Hospital Diet Patient's current hospital diet: AHA Diet (Heart Healthy), Diabetes Type 2 Diet Discharge Diet Recommended Diet: AHA Diet (Heart Healthy), Diabetes Type 2 Diet Procedures Procedures Performed: left heart catheterization dual chamber rate responsive permanent pacemaker under fluroscopic guidance Pending Studies Studies pending at discharge: no Laboratory Results Hemoglobin A1c Test 10/18/16 08:15 Range/Units Estimated Average Glucose 154 mg/dl Hemoglobin A1c 7.0 H 4.5-5.6 % Lipid Panel Test 10/18/16 08:15 Range/Units Triglycerides Level 67 0-150 mg/dl Cholesterol Level 136 0-200 mg/dl HDL Cholesterol 62 mg/dl Cholesterol/HDL Ratio 2.2 LDL Cholesterol, Calculated 61 mg/dl Medical Emergencies . Who to Call and When: Medical Emergencies: If at any time you feel your situation is an emergency, please call 911 immediately. . Non-Emergent Contact Non-Emergency issues call your: Primary Care Provider . . "Provider Documentation" section prepared by Leonarda Billy. . VTE Core Measure Inpt VTE Proph given/why not?: Refusal of treatmnt by pt
[2016-11-22] MEDS ORDERED: TRMCR180 TD (15:13)
[2016-11-22 15:19] VITALS: BP 118/70; PULSE 65; TEMP 36.8; O2SAT 97
--- NOTE | 2016-11-22 22:30 | Discharge Summary ---
Discharge Summary Date of Service Nov 22, 2016. 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 Consultations: Cardio GI Pending Studies/Follow-Up: see instructions below. Medication Reconciliation New Medications: Triamcinolone Acet (Aristocort 0.1%) 240 Appln/80 Gm Cr 1 APPL TD BID for 14 Days, #80 GM 0 Refills Continue applying to clean dry skin twice daily until rash is resolved . Isosorbide Mononitrate (Isosorbide Mononitrate ER) 30 Mg Tabcr 30 MG PO QAM for 30 Days, #30 TAB 1 Refill Metoprolol Succinate (Metoprolol Succinate ER) 25 Mg Tabcr 25 MG PO QAM for 30 Days, #30 TAB 1 Refill Pantoprazole (Pantoprazole Sodium) 40 Mg Tab 40 MG PO BID for 30 Days, #60 TAB 1 Refill Continued Medications: Aspirin (Aspirin Ec) 81 Mg Tab 81 MG PO QAM Atorvastatin (Lipitor) 10 Mg Tab 1 TAB PO DAILY for 30 Days, #30 TAB 5 Refills Calcium Citrate-Vitamin D (Citracal + D3 Maximum) 1 Tab Tab 2 TAB PO BID Citalopram Hydrobromide (Celexa) 40 Mg Tab 1 TAB PO DAILY for 30 Days, #30 TAB 1 Refill Clopidogrel Bisulfate (Plavix) 75 Mg Tab 75 MG PO DAILY Cyanocobalamin (Cyanocobalamin) 1,000 Mcg/Ml Inj 1 ML INJ MONTHLY PT TAKES 1ST DAY OF THE MONTH Ferrous Sulfate (Kp Ferrous Sulfate) 325 Mg Tab 1 TAB PO QAM Insulin Glargine (Lantus Solostar) 100 Unit/Ml Inj 16 UNITS SC QAM Levothyroxine Sodium (Levothyroxine Sodium) 50 Mcg Tab 1 TAB PO DAILYBB for 90 Days, TAB 3 Refills Loperamide Hcl (Imodium) 2 Mg Cap 2 MG PO UD PRN for Diarrhea, CAP Nitroglycerin (Nitrostat) 0.4 Mg Sub 0.4 MG UT PRN 1 tab q 5 min prn cp.can have up to 3 doses within 15 min. 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 Pichardo's office for chest pain. Patient reports chest pain x 3-4 days. Describes "hurt" in substernal area which is non-radiating. States pain progressively worsened and has been constant for most of today. Not exacerbated by exertion or eating. She reports worsening of pain when nitro was given in ER. Currently rates pain 5/10. Denies similar pain in the past. She reports associated DAVILA with ambulating a few steps which is new for past 3-4 days. No change in chronic RLE edema. Denies diaphoresis, fever, chills, dizziness, cough, dyspnea at rest, orthopnea, reflux, difficulty swallowing, appetite loss, N/V, change in bowel or bladder movements, calf pain, weight gain, rash, anxiety. No heavy lifting. She saw Dr. Pichardo today for routine follow up and was sent to ER for further evaluation. Physical Exam (per Admitting): General Appearance: no apparent distress, + obese Head: normocephalic, atraumatic Eyes: normal inspection, sclerae normal ENT: hearing grossly normal, pharynx normal Neck: supple, no JVD, trachea midline Respiratory/Chest: chest non-tender, lungs clear, normal breath sounds, no respiratory distress, no accessory muscle use Cardiovascular: regular rate, rhythm, no murmur, + systolic murmur Abdomen/GI: normal bowel sounds, non tender, soft Extremities/Musculoskelatal: no calf tenderness, + pedal edema (mild chronic swelling of RLE. no edema LLE. ), + pertinent finding (refuses to remove socks/ shoes at time of my exam) Neurologic/Psych: alert, normal mood/affect, oriented x 3 Skin: normal color, warm/dry, no rash (no rash on chest) Hospital Course EXERTIONAL ANGINA R/o ACS; hx CAD s/p RCA stent in 1995, atherectomy and stenting of RCA in July 2011, and AZALIA to mid LAD Dec 2011 Troponin negative x 3; EKG- sinus with 1st degree AV block, nonspecific intraventricular conduction block, no ST or T wave abnormality Echo- "Normal LV chamber size with mild concentric LVH. * Normal LV systolic function, EF 55-60%. * No segmental left ventricular wall motion abnormalities are noted. * Grade II diastolic dysfunction.* Moderately calcified, trileaflet aortic valve with borderline to mild aortic stenosis, no regurgitation. * There is moderate mitral annular calcification. Calcified mitral apparatus causing mitral stenosis. There is mild mitral regurgitation. Stenosis not quantified, visually appears to be mild. * Moderate left atrial enlargement." Continued on aspirin, Plavix, atorvastatin, Imdur added Was not on beta marie due to intolerance Cardiology on board; appreciate input Underwent cardiac cath 11/20/16- "Heavily calcified coronaries. RCA with flush shot only, appears patent. Subtotal mid LAD proximal to previous stent. Subtotal diagonal artery proximal. Left Circumflex patent. Unable to engage RCA from right transradial approach. Tried access from right femoral without success." Noted on cath report that films will be reviewed at [facility] Plan is to consider elective procedure at [facility] in a few weeks SICK SINUS SYNDROME/ SYMPTOMATIC BRADYCARDIA episode of syncope while hospitalized with 12 second pause on telemetry S/p permanent pacemaker 11/21/16 Doing well postop FLUID FILLED DISTENDED ESOPHAGUS GI cocktail given on admission No abdominal pain, N/V, reflux, or swallowing issues Consult GI, PPI started, recommended considering outpatient evaluation for dysmotility with barium swallow vs esophageal manometry if if CP symptoms persist or if develops dysphagia/ odynophagia; no inpatient GI intervention CHRONIC DIASTOLIC DYSFUNCTION Currently euvolemic DM TYPE 2 Continue Lantus Novolog sliding scale HYPOTHYROIDISM Continue levothyroxine On day of discharge she was afebrile and hemodynamically stable. She was ambulating and mentating at baseline and was asymptomatic. Physical exam was unremarkable aside from her pacemaker wound which was closed with skin glue, non -draining and appeared to be healing well. She was discharged in stable condition with close follow-up with PCP. Total time spent on discharge = 60 minutes This includes examination of the patient, discharge planning, medication reconciliation, and communication with other providers. Discharge Instructions [facility] [address] [place] [address] Discharge Medical Patient Name: Maritza Palomo Unit Number: [id number] Date of : 1940 Patient Status: Discharged Inpatient Attending Doctor: Leonarda Billy DO DI: Medical v4 Discharge Instructions Date of Service Nov 22, 2016. Admission Reason for Admission: Chest Pain Discharge Discharge Diagnosis / Problem: stable angina, symptomatic bradycardia Discharge Goals Goal(s): Prevent Disease Progression Activity Recommendations Activity Limitations: per Instructions/Follow-up section . Instructions / Follow-Up Instructions / Follow-Up Please take all medications as instructed above. Please follow-up with [facility] regarding the esophageal findings on initial imaging for further workup for possible esophageal dysmotility issues. a referral may be placed by your primary care physician ( PCP). Until that time, please continue PROTONIX 40mg twice daily. Regarding post-operative instructions from the pacemaker procedure: -Please do not lift the left elbow over you left shoulder for 1 month. -Please do not lift more than 10 pounds with the left arm for 2 weeks. -Showering is fine but please just allow the water to run over the incision site and do not scrub it. Please follow-up with the [facility] Cardiology office as instructed for a wound check and pacemaker check. Someone from the office should be contacting you regarding getting this scheduled. You have a follow-up appointment with Dr. Liza Dobbs on 11/27 @ 12:45pm for follow-up from this hospitalization. Please bring all discharge documentation with you to this appointment. 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 It was a pleasure taking care of you! Call if you have any questions or problems. You can reach a [facility] hospitalist on duty at [facility] 24 hours a day by calling [phone]. Take care of yourself. Leonarda Billy DO [facility] Hospitalist Current Hospital Diet Patient's current hospital diet: AHA Diet (Heart Healthy), Diabetes Type 2 Diet Discharge Diet Recommended Diet: AHA Diet (Heart Healthy), Diabetes Type 2 Diet Procedures Procedures Performed: left heart catheterization dual chamber rate responsive permanent pacemaker under fluroscopic guidance Pending Studies Studies pending at discharge: no Laboratory Results Hemoglobin A1c Test 10/18/16 08:15 Range/Units Estimated Average Glucose 154 mg/dl Hemoglobin A1c 7.0 H 4.5-5.6 % Lipid Panel Test 10/18/16 08:15 Range/Units Triglycerides Level 67 0-150 mg/dl Cholesterol Level 136 0-200 mg/dl HDL Cholesterol 62 mg/dl Cholesterol/HDL Ratio 2.2 LDL Cholesterol, Calculated 61 mg/dl Medical Emergencies . Who to Call and When: Medical Emergencies: If at any time you feel your situation is an emergency, please call 911 immediately. . Non-Emergent Contact Non-Emergency issues call your: Primary Care Provider . . "Provider Documentation" section prepared by Leonarda Billy. . VTE Core Measure Inpt VTE Proph given/why not?: Refusal of treatmnt by pt Additional Copies To Liza Dobbs,DO
[2016-11-23] MEDS ORDERED: METOPROLOL SUCC 25MG EXT REL TAB PO SCH (09:00)
== END 2016-11-22 16:14 | disposition home or self-care (01) | DRG 244 ==
LOC: C.EDB 09:20 → C.MED 12:12 → ENRESERV 13:45 → C.2T 11-20 11:50 → ENRESERV 11-20 16:32 → C.MSICU 11-20 16:47 → OBSVTOIN 11-21 09:37 → ENRESERV 11-21 18:23 → C.2T 11-21 19:14
PROVIDERS: ADMIT Internal Medicine; ATTEND Hospitalist
PROC: B211YZZ Fluoroscopy of Multiple Coronary Arteries using Other Contrast (ICD-10-PCS; principal; 2016-11-20 08:16)
PROC: 02HK3JZ Insertion of Pacemaker Lead into Right Ventricle, Percutaneous Approach (ICD-10-PCS; 2016-11-21)
PROC: 02H63JZ Insertion of Pacemaker Lead into Right Atrium, Percutaneous Approach (ICD-10-PCS; 2016-11-21)
PROC: 0JH636Z Insertion of Pacemaker, Dual Chamber into Chest Subcutaneous Tissue and Fascia, Percutaneous Approach (ICD-10-PCS; 2016-11-21)
DX: I49.5 Sick sinus syndrome (principal); I25.118 Atherosclerotic heart disease of native coronary artery with other forms of angina pectoris; K22.8 Other specified diseases of esophagus; I10 Essential (primary) hypertension; E11.9 Type 2 diabetes mellitus without complications; F32.9 Major depressive disorder, single episode, unspecified; E78.5 Hyperlipidemia, unspecified; E03.9 Hypothyroidism, unspecified; I08.0 Rheumatic disorders of both mitral and aortic valves; R55 Syncope and collapse; J45.909 Unspecified asthma, uncomplicated; E66.9 Obesity, unspecified; Z66 Do not resuscitate; Z79.02 Long term (current) use of antithrombotics/antiplatelets; Z79.4 Long term (current) use of insulin; Z79.82 Long term (current) use of aspirin; Z79.899 Other long term (current) drug therapy; Z95.5 Presence of coronary angioplasty implant and graft; Z98.84 Bariatric surgery status; Z83.3 Family history of diabetes mellitus

== ENCOUNTER 2016-11-27 13:33 | Emergency (ER) | payer OTHER ==
[~2016-11-27] VITALS: Ht 162.6 cm; Wt 80.1 kg
[~2016-11-27 13:33] MED LIST changes: +ATOR10TA88 PO; +CALC1TAB9 PO; +FERR1TAB13 PO; -FRRS300 PO; +IMD/2 PO; +IMDSR30 PO; -LEVO50TA PO; +LEVO50TA6 PO; -LOPE1TAB25 PO; -LPT/20 PO; +PEDICHW44 PO; -PEDICHW50 PO; +PRT40 PO; +TPRSR25 PO; +TRMCR180 TD; -VNTHFA/IN INH
[2016-11-27 13:35] VITALS: TEMP 36.5; Ht 162.6 cm; Wt 80.1 kg
[2016-11-27] MEDS ORDERED: SODIUM CHLORIDE 0.9% 1000ML 1,000 ML IV STA (14:06)
--- NOTE | 2016-11-27 14:32 | DIAGNOSTIC IMAGING REPORT ---
CHEST ONE VIEW PORTABLE CLINICAL HISTORY: Evaluate Fever/Sepsis fever. Dyspnea. COMPARISON STUDY: 11/22/2016 FINDINGS: Bipolar cardiac pacemaker in good position. Heart is top limits of normal size. Lungs are clear. Diaphragms smooth. IMPRESSION: No acute process. Lungs are considered clear. The above report was generated using voice recognition software. It may contain grammatical, syntax or spelling errors. Electronically signed by: Gamaliel Garay M.D. 11/27/2016 2:31 PM Dictated Date/Time: 11/27/2016 2:30 PM
[2016-11-27 14:38] LABS: BASO % 0.9 %; BASO ABS # 0.03 K/uL (0-0.2); COMPLETE YES; EOS % 3.1 %; HEMATOCRIT 30.9 % (37-47); LYMPH % 29.1 %; LYMPH ABS # 1.02 K/uL (1.2-3.4); MEAN CELL VOLUME 90.6 fL (80-100); MEAN CORPUSCULAR HEMOGLOBIN 29.6 pg (25-34); MEAN CORPUSCULAR HGB CONC 32.7 g/dl (32-36); MEAN PLATELET VOLUME 10.2 fL (7.4-10.4); MONO % 6.9 %; PLATELET COUNT 161 K/uL (130-400); RED BLOOD COUNT 3.41 M/uL (4.2-5.4)
[2016-11-27 14:57] LABS: PARTIAL THROMBOPLASTIN RATIO 0.9; PROTHROMBIN TIME (PATIENT) 10.2 SECONDS (9.0-12.0)
[2016-11-27 15:03] LABS: ALT/SGPT 14 U/L (12-78); AST/SGOT 20 U/L (15-37); BLOOD UREA NITROGEN 19 mg/dl (7-18); BUN/CREATININE RATIO 17.3 (10-20); CALCIUM 8.3 mg/dl (8.5-10.1); CARBON DIOXIDE 28 mmol/L (21-32); CHLORIDE 112 mmol/L (98-107); GLUCOSE 188 mg/dl (70-99); POTASSIUM 3.6 mmol/L (3.5-5.1); SODIUM 144 mmol/L (136-145)
[2016-11-27 15:08] LABS: ALKALINE PHOSPHATASE 83 U/L (45-117); CKMB/CK RATIO 0.3 (0-3.0)
--- NOTE | 2016-11-27 15:21 | EMERGENCY ROOM VISIT NOTE ---
History Report prepared by Gerry: Jeanine Julien Under the Supervision of: Dr. Chandra Looney D.O. 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 The patient was seen at her PCP today and found that her blood pressure was 70/23. Her PCP spoke with her early childhood special educator and decided to send her to the ED. They spoke of transferring her to [facility] for CABG. The patient was in the hospital last week at which time she had a pacemaker placed. Her arteries were found to be blocked, but they were unable to clear them at the time. She was to be scheduled for CABG at [facility] in the future. She also reports SOB which is worse with exertion. She has a history of CHF. She has no other complaints at this time. 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 A total of 10 systems reviewed and were otherwise negative. Past Medical & Surgical Medical Problems: (1) Aortic root dilatation (2) Asthma (3) CAD (coronary artery disease) (4) Chest pain (5) Depression (6) DM type 2 (diabetes mellitus, type 2) (7) Dyslipidemia (8) Hypothyroidism (9) HOMERO (iron deficiency anemia) (10) Macular degeneration (11) MDS (myelodysplastic syndrome) (12) Mild aortic stenosis (13) Symptomatic bradycardia (14) Typical angina Surgical Problems: (1) History of angioplasty (2) History of arthroscopy of knee (3) History of arthroscopy of shoulder (4) History of cholecystectomy (5) History of gastric bypass (6) History of incisional hernia repair (7) History of partial hysterectomy (8) History of tonsillectomy (9) Repair arm tendon Family History Diabetes mellitus FH: heart disease FHx: cancer FHx: gallbladder disease Hypertension Social History Smoking Status: Never Smoker Alcohol Use: none Drug Use: none Marital Status: Housing Status: lives with family Occupation Status: retired Current/Historical Medications Scheduled Aspirin (Aspirin Ec), 81 MG PO QAM Atorvastatin (Lipitor), 1 TAB PO DAILY Calcium Citrate-Vitamin D (Citracal + D3 Maximum), 2 TAB PO BID Citalopram Hydrobromide (Celexa), 1 TAB PO DAILY Clopidogrel Bisulfate (Plavix), 75 MG PO DAILY Cyanocobalamin (Cyanocobalamin), 1 ML INJ MONTHLY Ferrous Sulfate (Kp Ferrous Sulfate), 1 TAB PO QAM Insulin Glargine (Lantus Solostar), 16 UNITS SC QAM Isosorbide Mononitrate (Isosorbide Mononitrate ER), 30 MG PO QAM Levothyroxine Sodium (Levothyroxine Sodium), 1 TAB PO DAILYBB Metoprolol Succinate (Metoprolol Succinate ER), 25 MG PO QAM Nitroglycerin (Nitrostat), 0.4 MG UT PRN Pantoprazole (Pantoprazole Sodium), 40 MG PO BID Pediatric Multiple Vitamins W/ (Flintstones Plus Iron), 1 TAB PO DAILY Senna/Docusate Sod (Senokot S), 2 TAB PO BID Triamcinolone Acet (Aristocort 0.1%), 1 APPL TD BID Scheduled PRN Loperamide Hcl (Imodium), 2 MG PO UD PRN for Diarrhea Allergies Coded Allergies: Adhesives (Verified Allergy, Unknown, ADHESIVE TAPE, 11/19/16) Physical Exam Vital Signs Date Time Temp Pulse Resp B/P (MAP) Pulse Ox O2 Delivery O2 Flow Rate FiO2 11/27/16 14:46 65 18 113/58 98 Room Air 11/27/16 13:45 68 11/27/16 13:35 36.5 83 18 116/66 98 Room Air Physical Exam CONSTITUTIONAL/VITAL SIGNS: Reviewed / noted above. GENERAL: Non-toxic in appearance. INTEGUMENTARY: Warm, dry, and [place]. HEAD: Normocephalic. EYES: without scleral icterus or trauma. ENT/OROPHARYNX: clear and moist. LYMPHADENOPATHY/NECK: Is supple without lymphadenopathy or meningismus. RESPIRATORY: Lungs clear and equal. CARDIOVASCULAR: Regular rate and rhythm. Systolic ejection murmur. GI/ABDOMEN: Soft and nontender. No organomegaly or pulsatile mass. No rebound or guarding. Normal bowel sounds. EXTREMITIES: Warm and well perfused. BACK: No CVA tenderness. NEUROLOGICAL: Intact without focal deficits. PSYCHIATRIC: normal affect. MUSCULOSKELETAL: Normally developed with good muscle tone. Medical Decision & Procedures ER Provider Diagnostic Interpretation: X ray results and stated below per my interpretation and radiology interpretation. CHEST ONE VIEW PORTABLE CLINICAL HISTORY: Evaluate Fever/Sepsis fever. Dyspnea. COMPARISON STUDY: 11/22/2016 FINDINGS: Bipolar cardiac pacemaker in good position. Heart is top limits of normal size. Lungs are clear. Diaphragms smooth. IMPRESSION: No acute process. Lungs are considered clear. The above report was generated using voice recognition software. It may contain grammatical, syntax or spelling errors. Electronically signed by: Gamaliel Garay M.D. 11/27/2016 2:31 PM Dictated Date/Time: 11/27/2016 2:30 PM Laboratory Results 11/27/16 14:28 Red Blood Count 3.41, Mean Corpuscular Volume 90.6, Mean Corpuscular Hemoglobin 29.6, Mean Corpuscular Hemoglobin Concent 32.7, Mean Platelet Volume 10.2, Neutrophils (%) (Auto) 60.0, Lymphocytes (%) (Auto) 29.1, Monocytes (%) (Auto) 6.9, Eosinophils (%) (Auto) 3.1, Basophils (%) (Auto) 0.9, Neutrophils # (Auto) 2.10, Lymphocytes # (Auto) 1.02, Monocytes # (Auto) 0.24, Eosinophils # (Auto) 0.11, Basophils # (Auto) 0.03 11/27/16 14:28 Test 11/27/16 14:28 White Blood Count 3.50 K/uL (4.8-10.8) Red Blood Count 3.41 M/uL (4.2-5.4) Hemoglobin 10.1 g/dL (12.0-16.0) Hematocrit 30.9 % (37-47) Mean Corpuscular Volume 90.6 fL (80-100) Mean Corpuscular Hemoglobin 29.6 pg (25-34) Mean Corpuscular Hemoglobin Concent 32.7 g/dl (32-36) Platelet Count 161 K/uL (130-400) Mean Platelet Volume 10.2 fL (7.4-10.4) Neutrophils (%) (Auto) 60.0 % Lymphocytes (%) (Auto) 29.1 % Monocytes (%) (Auto) 6.9 % Eosinophils (%) (Auto) 3.1 % Basophils (%) (Auto) 0.9 % Neutrophils # (Auto) 2.10 K/uL (1.4-6.5) Lymphocytes # (Auto) 1.02 K/uL (1.2-3.4) Monocytes # (Auto) 0.24 K/uL (0.11-0.59) Eosinophils # (Auto) 0.11 K/uL (0-0.5) Basophils # (Auto) 0.03 K/uL (0-0.2) RDW Standard Deviation 44.5 fL (36.4-46.3) RDW Coefficient of Variation 13.5 % (11.5-14.5) Immature Granulocyte % (Auto) 0.0 % Immature Granulocyte # (Auto) 0.00 K/uL (0.00-0.02) Prothrombin Time 10.2 SECONDS (9.0-12.0) Prothromb Time International Ratio 1.0 (0.9-1.1) Activated Partial Thromboplast Time 24.0 SECONDS (21.0-31.0) Partial Thromboplastin Ratio 0.9 Anion Gap 4.0 mmol/L (3-11) Est Creatinine Clear Calc Drug Dose 43.2 ml/min Estimated GFR () 55.7 Estimated GFR (Non- 48.1 BUN/Creatinine Ratio 17.3 (10-20) Calcium Level 8.3 mg/dl (8.5-10.1) Total Bilirubin 0.3 mg/dl (0.2-1) Direct Bilirubin < 0.1 mg/dl (0-0.2) Aspartate Amino Transf (AST/SGOT) 20 U/L (15-37) Alanine Aminotransferase (ALT/SGPT) 14 U/L (12-78) Alkaline Phosphatase 83 U/L (45-117) Total Creatine Kinase 502 U/L (26-192) Creatine Kinase MB 1.4 ng/ml (0.5-3.6) Creatine Kinase MB Ratio 0.3 (0-3.0) Troponin I < 0.015 ng/ml (0-0.045) Total Protein 6.3 gm/dl (6.4-8.2) Albumin 3.0 gm/dl (3.4-5.0) Lipase 133 U/L (73-393) Laboratory results as stated above per my review. Medications Administered Medications (Trade) Dose Ordered Sig/Arlin Route Start Time Stop Time Status Last Admin Dose Admin Sodium Chloride 1,000 ml @ 250 mls/hr Q4H STAT IV 11/27/16 14:06 11/27/16 18:05 11/27/16 14:45 250 MLS/HR ECG Indication: SOB/dyspnea Rate (beats per minute): 66 Rhythm: other (atrial paced) Findings: no ectopy, other (no acute injury) ED Course 1400: Previous medical records were reviewed. The patient was evaluated in room B12B. A complete history and physical examination was performed. 1406: NSS 1000 ml @ 250 mls/hr IV. 1417: I discussed the patient's case with Dr. Caraballo, [facility] cardiology. He will come and speak with the patient. 1520: On reevaluation, the patient is resting comfortably. I discussed the results and findings with the patient. She verbalized agreement of the treatment plan. She was discharged home. Medical Decision the differential was considered includes acute myocardial infarction, acute coronary syndrome, myocarditis, pericarditis, pericardial effusions /tamponad, esophageal perforation, thoracic aortic dissection, pulmonary embolism, pneumonia, pneumothorax, pancreatitis, shingles, acute cholecystitis, perforated abdominal viscus. This is a 76-year-old female who presents to the ED with a chief complaint of decreased blood pressure. The patient states that she was feeling at her baseline which included some exertional dyspnea. She went to her PCP for routine follow-up today and was found to have a blood pressure of 70/30. The patient was sent here for evaluation. The patient's blood pressure here has been in the 100 teens systolic during her entire stay here. She denies any symptoms. The patient does have an extensive cardiac history and had a recent pacemaker placed in the past week. She is to go to [facility] for possible bypass surgery in the near future. Her physical exam was unremarkable. Her vital signs are stable. An EKG shows an atrial paced rhythm at a rate of 66. No acute ischemic changes. CBC is unremarkable, complete metabolic panel is unremarkable, troponin is negative and chest x-ray did not show acute disease. The patient continues to be asymptomatic. She was told the results. Dr. Caraballo did see the patient in the ED. We feel that the patient is able to be discharged. She has follow-up with Dr. Pichardo tomorrow. Medication Reconcilliation Current Medication List: was personally reviewed by me Blood Pressure Screening Patient's blood pressure: Normal blood pressure Blood pressure disposition: Did not require urgent referral Consults Time Called: 1409 Consulting Physician: Dr. Caraballo [facility] cardiology Returned Call: [phone] I discussed the patient's case with him. He will come and speak with the patient. Impression Primary Impression: Hypotensive episode Scribe Attestation The scribe's documentation has been prepared under my direction and personally reviewed by me in its entirety. I confirm that the note above accurately reflects all work, treatment, procedures, and medical decision making performed by me. Departure Information Dispostion Home / Self-Care Referrals Liza Dobbs DO (PCP) Patient Instructions My [facility] Additional Instructions Follow-up tomorrow as scheduled with Dr. Pichardo. Return for any concerns.
[2016-11-27 15:53] VITALS: BP 133/64; PULSE 67; O2SAT 94
== END 2016-11-27 15:45 | disposition home or self-care (01) ==
LOC: C.EDB 13:38
DX: I95.9 Hypotension, unspecified (principal); J45.909 Unspecified asthma, uncomplicated; I25.10 Atherosclerotic heart disease of native coronary artery without angina pectoris; F32.9 Major depressive disorder, single episode, unspecified; E11.9 Type 2 diabetes mellitus without complications; E78.5 Hyperlipidemia, unspecified; E03.9 Hypothyroidism, unspecified; D50.9 Iron deficiency anemia, unspecified; Z83.3 Family history of diabetes mellitus; Z82.49 Family history of ischemic heart disease and other diseases of the circulatory system; Z79.82 Long term (current) use of aspirin; Z79.4 Long term (current) use of insulin

== ENCOUNTER → 2016-12-18 | Outpatient (CLI) | payer OTHER ==
[2016-12-18 12:45] LABS: HEMATOCRIT 33.2 % (37-47); MEAN CELL VOLUME 91.2 fL (80-100); MEAN CORPUSCULAR HEMOGLOBIN 29.9 pg (25-34); MEAN CORPUSCULAR HGB CONC 32.8 g/dl (32-36); MEAN PLATELET VOLUME 10.3 fL (7.4-10.4); PLATELET COUNT 184 K/uL (130-400); RED BLOOD COUNT 3.64 M/uL (4.2-5.4); WHITE BLOOD COUNT 5.53 K/uL (4.8-10.8)
--- NOTE | 2016-12-18 13:13 | DIAGNOSTIC IMAGING REPORT ---
VIDEO SWALLOW CLINICAL HISTORY: 76 years-old Female presenting with fluid in the esophagus, shortness of breath. TECHNIQUE: Video fluoroscopic evaluation of swallowing was performed in the AP and lateral projections in conjunction with speech pathology. The patient was administered various textures, including nectar-thick and thin liquid barium, a barium coated wafer, and barium pudding. COMPARISON: Chest x-ray from 11/27/2016. FINDINGS: There is normal hyoid excursion and epiglottic deflection. One instance of silent aspiration of thin liquids, with multiple repeated attempts demonstrating no evidence of aspiration or penetration. No aspiration or penetration of nectar thick liquids. Pudding and solids were also well tolerated. Fluoroscopy dosage (mGy): Not available. Fluoroscopy time: 1.8 minutes. Number of fluoroscopic spot images: 0. IMPRESSION: 1. One instance of silent aspiration of thin liquids. When repeated, this was normal. No other aspiration or penetration with the remaining textures. 2. Please see the speech pathologist report for detailed findings and recommendations. Electronically signed by: Bhavin Mcgovern M.D. 12/18/2016 1:12 PM Dictated Date/Time: 12/18/2016 1:10 PM
[2016-12-18 13:20] LABS: BLOOD UREA NITROGEN 16 mg/dl (7-18); BUN/CREATININE RATIO 15.5 (10-20); CALCIUM 8.7 mg/dl (8.5-10.1); CARBON DIOXIDE 27 mmol/L (21-32); CHLORIDE 105 mmol/L (98-107); GLUCOSE 166 mg/dl (70-99); POTASSIUM 3.5 mmol/L (3.5-5.1); SODIUM 141 mmol/L (136-145)
--- NOTE | 2016-12-19 13:52 | SWALLOWING EVALUATION ---
REFERRING SPEECH PATHOLOGIST: n/a HISTORY: This 76 year-old female was referred for a VFSS at [facility] in order to address c/o persistent SOB. The patient has a PMH significant for weakness, CP, angina, symptomatic bradycardia, depression, CAD, DM II, asthma, myelodysplastic syndrome. Chest x-ray completed 11/27/16 was negative for any acute processes. Pt also reports that she was told that she had fluid in her esophagus as noted after a recent test. She was unable to be more specific. Currently the patient's diet level is regular. PROCEDURE: The patient was seen in the Radiology Department of [facility] for the VFSS. Cursory examination of the oral cavity revealed upper and lower dentures of adequate fit. Movement of the articulators was WNL. The patient was seated on a stool and was viewed in both the Anterior-Posterior (A-P) and Lateral planes. Volitional phonation exercises completed in the A-P plane revealed bilateral vocal fold movement and vocal intensity within functional limits. In the lateral plane, the patient was given the following boluses: 1 tsp. thin liquid barium x 2, single swallow thin liquid barium self-presented from a cup, sequential swallows of thin liquid barium self-presented from a cup, 1 tsp. nectar-thick liquid barium, single swallow nectar-thick liquid barium self-presented from a cup, 1 tsp. barium pudding, and 1 club cracker with barium pudding. The patient was then repositioned into the A-P plane and given 1 tsp. barium pudding. RESULTS: Oral Stage: All assessed aspects of the oral stage of the swallow functioned WNL. These include: labial seal, lingual control during oral bolus hold, mastication, bolus transport, oral clearance, and pharyngeal swallowing initiation. Pharyngeal Stage: All assessed aspects of the pharyngeal swallow functioned WNL. These include: laryngeal elevation, anterior hyoid excursion, epiglottic inversion, laryngeal vestibular closure, pharyngeal stripping wave, pharyngeal contraction, PES opening, tongue base retraction and pharyngeal clearance. There was a single episode of trace silent aspiration with the initial teaspoon presentation of thin liquid barium, but this was not repeated at any time during the entirety of the study. It is not believed to be a significant finding and it does not represent the way the patient swallows when she is feeding herself (her baseline). Esophageal Stage: A pudding bolus transited the esophagus without impedance. SUMMARY/RECOMMENDATIONS: This patient presents with normal oral-pharyngeal swallow function. In addition, the patient presents with s/s esophageal dysfunction. The following is recommended: 1. Regular as tolerated 2. Consideration of continued f/u with physicians as needed. A summary of the results and recommendations was discussed with the patient immediately following the study. She is anticipating f/u with referring PAJean. Thank you for referral of this patient. Please contact me at if any additional information is needed.
== END | disposition home or self-care (01) ==
LOC: C.RAD 11:46
PROVIDERS: ATTEND Nurse Practitioner
DX: Z95.5 Presence of coronary angioplasty implant and graft (principal); Z95.0 Presence of cardiac pacemaker; I25.10 Atherosclerotic heart disease of native coronary artery without angina pectoris; K21.9 Gastro-esophageal reflux disease without esophagitis; R06.09 Other forms of dyspnea; R07.89 Other chest pain

== ENCOUNTER 2017-03-05 13:20 | Emergency (ER) | payer OTHER ==
[~2017-03-05] VITALS: Ht 167.6 cm; Wt 85.2 kg
[~2017-03-05 13:20] MED LIST changes: +ATOR10TA82 PO; -ATOR10TA88 PO
[2017-03-05 13:26] VITALS: TEMP 36.6; Ht 167.6 cm; Wt 85.2 kg
--- NOTE | 2017-03-05 13:56 | EMERGENCY ROOM VISIT NOTE ---
History Report prepared by Gerry: Delia Marmolejo Under the Supervision of: Dr. Nick Marshall D.O. First contact with patient: 13:38 Chief Complaint: CARDIAC ASSESSMENT Stated Complaint: HEART, TOOK AN EKG- REFERRED History of Present Illness The patient is a 76 year old female who presents to the Emergency Room with complaints of worsening shortness of breath beginning 4 months ago. The patient states her shortness of breath is present when she is exerting herself and laying flat. The patient had a pacemaker put in in November and states she has been getting worse since. The patient was at her heart rehab this morning who referred her to the ED. She denies any new swelling in the legs or chest pain. The patient is on high blood pressure medication and a blood thinner. Source of History: patient Onset: 4 months ago Position: other (generalized) Quality: other (shortness of breath) Timing: worsening Associated Symptoms: + SOB, No chest pain Review of Systems See HPI for pertinent positives & negatives. A total of 10 systems reviewed and were otherwise negative. Past Medical & Surgical Medical Problems: (1) Aortic root dilatation (2) Asthma (3) CAD (coronary artery disease) (4) Chest pain (5) Depression (6) DM type 2 (diabetes mellitus, type 2) (7) Dyslipidemia (8) Hypothyroidism (9) HOMERO (iron deficiency anemia) (10) Macular degeneration (11) MDS (myelodysplastic syndrome) (12) Mild aortic stenosis (13) Symptomatic bradycardia (14) Typical angina Surgical Problems: (1) History of angioplasty (2) History of arthroscopy of knee (3) History of arthroscopy of shoulder (4) History of cholecystectomy (5) History of gastric bypass (6) History of incisional hernia repair (7) History of partial hysterectomy (8) History of tonsillectomy (9) Repair arm tendon Family History Diabetes mellitus FH: heart disease FHx: cancer FHx: gallbladder disease Hypertension Social History Smoking Status: Never Smoker Alcohol Use: none Drug Use: none Marital Status: Housing Status: lives with family Occupation Status: retired Current/Historical Medications Scheduled Aspirin (Aspirin Ec), 81 MG PO QAM Atorvastatin (Lipitor), 1 TAB PO QAM Calcium Citrate-Vitamin D (Citracal + D3 Maximum), 2 TAB PO BID Cephalexin Monohydrate (Keflex), 500 MG PO QID Citalopram Hydrobromide (Celexa), 1 TAB PO QAM Clopidogrel Bisulfate (Plavix), 75 MG PO QAM Cyanocobalamin (Cyanocobalamin), 1 ML INJ MONTHLY Ferrous Sulfate (Kp Ferrous Sulfate), 1 TAB PO QAM Insulin Glargine (Lantus Solostar), 16 UNITS SC QAM Isosorbide Mononitrate (Imdur Ext Rel), 60 MG PO QAM Isosorbide Mononitrate Ext Rel (Imdur Ext Rel), 30 MG PO QAM Levothyroxine Sodium (Levothyroxine Sodium), 1 TAB PO DAILYBB Metoprolol Succinate (Metoprolol Succinate ER), 25 MG PO QAM Nitroglycerin (Nitrostat), 0.4 MG UT PRN Pantoprazole (Pantoprazole Sodium), 40 MG PO BID Pediatric Multiple Vitamins W/ (Flintstones Plus Iron), 1 TAB PO QAM Senna/Docusate Sod (Senokot S), 2 TAB PO QAM Scheduled PRN Loperamide Hcl (Imodium), 2 MG PO UD PRN for Diarrhea Allergies Coded Allergies: Adhesives (Verified Allergy, Unknown, ADHESIVE TAPE, 03/05/17) Physical Exam Vital Signs Date Time Temp Pulse Resp B/P (MAP) Pulse Ox O2 Delivery O2 Flow Rate FiO2 03/05/17 18:21 60 18 131/68 98 Room Air 03/05/17 18:20 65 20 136/64 100 03/05/17 16:34 64 18 140/70 99 Room Air 03/05/17 14:48 62 17 146/78 99 Room Air 03/05/17 14:09 100 Room Air 03/05/17 14:09 100 Room Air 03/05/17 14:08 100 Room Air 03/05/17 13:54 63 03/05/17 13:26 36.6 76 16 91/59 99 Room Air Physical Exam GENERAL: Patient is awake, alert, and in no acute distress. Patient is resting comfortably and showing no signs of anxiety EYES: The conjunctivae are clear. The pupils are round and reactive. EARS, NOSE, MOUTH AND THROAT: The nose is without any evidence of any deformity. Mucous membranes are moist tongue is midline NECK: The neck is nontender and supple. RESPIRATORY: Mild tachypnea no conversational dyspnea noted. Lung sounds diminished in right base. CARDIOVASCULAR: Regular rate and rhythm noted there no murmurs rubs or gallops normal S1 normal S2 GASTROINTESTINAL: The abdomen is soft. Bowel sounds are present in all quadrants. Abdomen is nontender MUSCULOSKELETAL/EXTREMITIES: There is no evidence of gross deformity full range of motion is noted in the hips and shoulders SKIN: Pedal edema bilaterally right greater than left. There is no obvious evidence of any rash. There are no petechiae, pallor or cyanosis noted. NEUROLOGIC: Patient is awake alert and oriented x3. Medical Decision & Procedures ER Provider Diagnostic Interpretation: Radiology results as stated below per my review and radiologist interpretation: CHEST ONE VIEW PORTABLE FINDINGS: Left subclavian pacer is noted with leads overlying the right atrium and right ventricle. Leads appear intact. Cardiac silhouette is upper limits of normal. No pneumothorax, pleural effusion, focal airspace consolidation or overt pulmonary edema. Atherosclerosis of the aorta. Bones of the chest appear grossly intact. Post surgical changes of the bilateral humeral heads suggesting prior rotator cuff repair. IMPRESSION: No acute process. The above report was generated using voice recognition software. It may contain grammatical, syntax or spelling errors. Electronically signed by: Kirt Nova M.D. Laboratory Results 03/05/17 13:45 Red Blood Count 3.88, Mean Corpuscular Volume 91.2, Mean Corpuscular Hemoglobin 30.2, Mean Corpuscular Hemoglobin Concent 33.1, Mean Platelet Volume 10.3, Neutrophils (%) (Auto) 64.2, Lymphocytes (%) (Auto) 26.8, Monocytes (%) (Auto) 6.6, Eosinophils (%) (Auto) 1.6, Basophils (%) (Auto) 0.8, Neutrophils # (Auto) 2.44, Lymphocytes # (Auto) 1.02, Monocytes # (Auto) 0.25, Eosinophils # (Auto) 0.06, Basophils # (Auto) 0.03 03/05/17 13:45 Test 03/05/17 13:45 03/05/17 14:55 White Blood Count 3.80 K/uL (4.8-10.8) Red Blood Count 3.88 M/uL (4.2-5.4) Hemoglobin 11.7 g/dL (12.0-16.0) Hematocrit 35.4 % (37-47) Mean Corpuscular Volume 91.2 fL (80-100) Mean Corpuscular Hemoglobin 30.2 pg (25-34) Mean Corpuscular Hemoglobin Concent 33.1 g/dl (32-36) Platelet Count 177 K/uL (130-400) Mean Platelet Volume 10.3 fL (7.4-10.4) Neutrophils (%) (Auto) 64.2 % Lymphocytes (%) (Auto) 26.8 % Monocytes (%) (Auto) 6.6 % Eosinophils (%) (Auto) 1.6 % Basophils (%) (Auto) 0.8 % Neutrophils # (Auto) 2.44 K/uL (1.4-6.5) Lymphocytes # (Auto) 1.02 K/uL (1.2-3.4) Monocytes # (Auto) 0.25 K/uL (0.11-0.59) Eosinophils # (Auto) 0.06 K/uL (0-0.5) Basophils # (Auto) 0.03 K/uL (0-0.2) RDW Standard Deviation 44.3 fL (36.4-46.3) RDW Coefficient of Variation 13.4 % (11.5-14.5) Immature Granulocyte % (Auto) 0.0 % Immature Granulocyte # (Auto) 0.00 K/uL (0.00-0.02) Prothrombin Time 10.2 SECONDS (9.0-12.0) Prothromb Time International Ratio 1.0 (0.9-1.1) Activated Partial Thromboplast Time 23.8 SECONDS (21.0-31.0) Partial Thromboplastin Ratio 0.9 Anion Gap 7.0 mmol/L (3-11) Est Creatinine Clear Calc Drug Dose 48.1 ml/min Estimated GFR () 58.2 Estimated GFR (Non- 50.3 BUN/Creatinine Ratio 15.9 (10-20) Calcium Level 8.9 mg/dl (8.5-10.1) Magnesium Level 2.0 mg/dl (1.8-2.4) Total Bilirubin 0.3 mg/dl (0.2-1) Aspartate Amino Transf (AST/SGOT) 17 U/L (15-37) Alanine Aminotransferase (ALT/SGPT) 20 U/L (12-78) Alkaline Phosphatase 85 U/L (45-117) Troponin I < 0.015 ng/ml (0-0.045) Pro-B-Type Natriuretic Peptide 1410 pg/ml (0-1800) Total Protein 7.1 gm/dl (6.4-8.2) Albumin 3.6 gm/dl (3.4-5.0) Globulin 3.5 gm/dl (2.5-4.0) Albumin/Globulin Ratio 1.0 (0.9-2) Urine Color YELLOW Urine Appearance CLOUDY (CLEAR) Urine pH 5.0 (4.5-7.5) Urine Specific Brooten 1.016 (1.000-1.030) Urine Protein NEG (NEG) Urine Glucose (UA) NEG (NEG) Urine Ketones NEG (NEG) Urine Occult Blood 1+ (NEG) Urine Nitrite NEG (NEG) Urine Bilirubin NEG (NEG) Urine Urobilinogen NEG (NEG) Urine Leukocyte Esterase LARGE (NEG) Urine WBC (Auto) >30 /hpf (0-5) Urine RBC (Auto) 0-4 /hpf (0-4) Urine Hyaline Casts (Auto) 1-5 /lpf (0-5) Urine Epithelial Cells (Auto) 0-5 /lpf (0-5) Urine Bacteria (Auto) 4+ (NEG) Laboratory results per my review. Medications Administered Medications (Trade) Dose Ordered Sig/Arlin Route Start Time Stop Time Status Last Admin Dose Admin Ceftriaxone Sodium (Rocephin Inj) 1 gm NOW STAT IV 03/05/17 15:26 03/05/17 15:27 DC 03/05/17 15:40 1 GM Sodium Chloride 500 ml @ 999 mls/hr Q31M STAT IV 03/05/17 16:19 03/05/17 16:49 DC 03/05/17 16:19 999 MLS/HR ECG Indication: SOB/dyspnea Rate (beats per minute): 69 Rhythm: other (atrial paced rhythm) Findings: LBBB, other (no naknek beat appreciated) Comparison ECG Date: 11/27/16 Change: no significant change ED Course 1346: The patient was evaluated in room C3. A complete history and physical examination were performed. 1526: Ordered Rocephin Inj 1 gm IV. 1619: Ordered NSS 500 ml @ 999 mls/hr IV 1611: I discussed the patient's case with Dr. Thomas-Cardiology. He asked that we interrogate the patient's pacemaker. 1620: Dr. Thomas recommends increasing the patient's Imdur from 30 mg to 60 mg if she is discharged home. 174: Barry from [employer] states the pacemaker is capturing, there are no dysrhythmias no signs of dysfunctions. 174: I updated the patient on her pacemaker results. 1809: Upon reevaluation, the patient is resting comfortably. I discussed the results and treatment plan with her. She verbalized agreement of the treatment plan. The patient was discharged home. Medical Decision Differential diagnosis: Etiologies such as infections, reactive airway disease, pneumonia, pneumothorax , COPD, CHF, cardiac ischemia, pulmonary embolism, musculoskeletal, gastrointestinal, as well as others were entertained. The patient is a 76-year-old female who presented to emergency department for an evaluation of difficulty breathing. The patient had a pacemaker placed in November of this year. She states that ever since that time she's had trouble with difficulty breathing and dyspnea on exertion. The patient was seen by her primary care physician and sent to the emergency department for further evaluation. The patient's pacemaker was interrogated. There was no dysrhythmia. The pacemaker appears to be working properly. The patient was treated with Rocephin for presumed urinary tract infection in the emergency department. I discussed her case with the on-call [facility] utility technician. At this time they' ve recommended increasing the patient's Imdur. The patient was encouraged to continue all medications as prescribed. He was also encouraged to increase the medications that were changed at this time. She was also encouraged to follow- up with primary care physician as well as her primary utility technician for further evaluation. I also recommended that she return to the emergency Department immediately if symptoms change worsen or the need arises. Medication Reconcilliation Current Medication List: was personally reviewed by me Blood Pressure Screening Patient's blood pressure: Elevated blood pressure Blood pressure disposition: Elevated BP felt to be situational Consults Time Called: 161 Consulting Physician: Dr. Thomas-Cardiology Returned Call: 1611 I discussed the patient's case with Dr. McarthurCardiology. He asked that we interrogate the patient's pacemaker. Impression Primary Impression: Shortness of breath Additional Impression: UTI (urinary tract infection) Scribe Attestation The scribe's documentation has been prepared under my direction and personally reviewed by me in its entirety. I confirm that the note above accurately reflects all work, treatment, procedures, and medical decision making performed by me. Departure Information Dispostion Home / Self-Care Prescriptions Isosorbide Mononitrate (IMDUR EXT REL) 60 Mg Tab 60 MG PO QAM, #30 TAB Prov: Nick Marshall, 03/05/17 Cephalexin Monohydrate (KEFLEX) 500 Mg Cap 500 MG PO QID, #28 CAP Prov: Nick Marshall, 03/05/17 Referrals Liza Dobbs DO (PCP) Forms IMPORTANT VISIT INFORMATION Patient Instructions ED Dyspnea Shortness of Breath, [facility], Urinary Tract Infecs Women Additional Instructions Call your primary care physician to schedule a follow-up appointment. Follow-up with your primary utility technician as soon as possible. Continue the antibiotic, Keflex, as prescribed. Stop taking the Imdur 30 milligrams and start taking the Imdur 60 milligrams every morning. You have a new prescription from today's visit. Do not take both Imdur prescriptions. Problem Qualifiers Additional Impression: UTI (urinary tract infection) Urinary tract infection type: acute cystitis Hematuria presence: without hematuria Qualified Codes: N30.00 - Acute cystitis without hematuria
[2017-03-05 14:09] VITALS: O2SAT 100
--- NOTE | 2017-03-05 14:16 | DIAGNOSTIC IMAGING REPORT ---
CHEST ONE VIEW PORTABLE HISTORY: 76 years-old Female EVALUATE RESPIRATORY DISTRESS.DYSPNEA acute respiratory distress with dyspnea COMPARISON: Chest radiograph 11/27/2016 TECHNIQUE: Portable AP view of the chest FINDINGS: Left subclavian pacer is noted with leads overlying the right atrium and right ventricle. Leads appear intact. Cardiac silhouette is upper limits of normal. No pneumothorax, pleural effusion, focal airspace consolidation or overt pulmonary edema. Atherosclerosis of the aorta. Bones of the chest appear grossly intact. Post surgical changes of the bilateral humeral heads suggesting prior rotator cuff repair. IMPRESSION: No acute process. The above report was generated using voice recognition software. It may contain grammatical, syntax or spelling errors. Electronically signed by: Kirt Nova M.D. 03/05/2017 2:14 PM Dictated Date/Time: 03/05/2017 2:13 PM
[2017-03-05 14:21] LABS: BASO % 0.8 %; BASO ABS # 0.03 K/uL (0-0.2); COMPLETE YES; EOS % 1.6 %; HEMATOCRIT 35.4 % (37-47); LYMPH % 26.8 %; LYMPH ABS # 1.02 K/uL (1.2-3.4); MEAN CELL VOLUME 91.2 fL (80-100); MEAN CORPUSCULAR HEMOGLOBIN 30.2 pg (25-34); MEAN CORPUSCULAR HGB CONC 33.1 g/dl (32-36); MEAN PLATELET VOLUME 10.3 fL (7.4-10.4); MONO % 6.6 %; NEUT % 64.2 %; PLATELET COUNT 177 K/uL (130-400); RED BLOOD COUNT 3.88 M/uL (4.2-5.4)
[2017-03-05 14:33] LABS: PARTIAL THROMBOPLASTIN RATIO 0.9; PROTHROMBIN TIME (PATIENT) 10.2 SECONDS (9.0-12.0)
[2017-03-05 14:43] LABS: ALT/SGPT 20 U/L (12-78); AST/SGOT 17 U/L (15-37); BLOOD UREA NITROGEN 17 mg/dl (7-18); BUN/CREATININE RATIO 15.9 (10-20); CALCIUM 8.9 mg/dl (8.5-10.1); CARBON DIOXIDE 28 mmol/L (21-32); CHLORIDE 103 mmol/L (98-107); CREATININE 1.06 mg/dl (0.60-1.20); GLUCOSE 206 mg/dl (70-99); POTASSIUM 3.7 mmol/L (3.5-5.1); SODIUM 138 mmol/L (136-145)
[2017-03-05 14:48] LABS: ALKALINE PHOSPHATASE 85 U/L (45-117)
[2017-03-05 15:12] LABS: URINE APPEARANCE CLOUDY (CLEAR); URINE BILIRUBIN NEG (NEG); URINE COLOR YELLOW; URINE EPITHELIAL CELL AUTO 0-5 /lpf (0-5); URINE NITRITE NEG (NEG); URINE SPECIFIC GRAVITY 1.016 (1.000-1.030); UROBILINOGEN NEG (NEG)
[2017-03-05 15:15] LABS: MANUAL MICROSCOPIC REQUIRED? NO; REVIEW REQ? NO
[2017-03-05] MEDS ORDERED: CEFTRIAXONE SOD INJ 1 GM ADDVIAL IV STA (15:26)
[2017-03-05] MEDS ORDERED: PANT40TA2 PO (15:37)
[2017-03-05] MEDS ORDERED: ISOS30TA35 PO (15:37)
[2017-03-05] MEDS ORDERED: TPRSR/25 PO (15:37)
[2017-03-05] MEDS ORDERED: SODIUM CHLORIDE 0.9% 500ML 500 ML IV STA (16:19)
[2017-03-05] MEDS ORDERED: CEPH500C2 PO (18:00)
[2017-03-05] MEDS ORDERED: ISOS60TA2 PO (18:00)
[2017-03-05 18:21] VITALS: BP 131/68; PULSE 60; O2SAT 98
== END 2017-03-05 18:37 | disposition home or self-care (01) ==
LOC: C.EDB 13:21 → C.EDC 18:37
DX: R06.02 Shortness of breath (principal); N30.00 Acute cystitis without hematuria; J45.909 Unspecified asthma, uncomplicated; I25.10 Atherosclerotic heart disease of native coronary artery without angina pectoris; F32.9 Major depressive disorder, single episode, unspecified; E11.9 Type 2 diabetes mellitus without complications; E78.5 Hyperlipidemia, unspecified; E03.9 Hypothyroidism, unspecified; D50.9 Iron deficiency anemia, unspecified; H35.30 Unspecified macular degeneration; D46.9 Myelodysplastic syndrome, unspecified; Z83.3 Family history of diabetes mellitus; Z82.49 Family history of ischemic heart disease and other diseases of the circulatory system; Z79.82 Long term (current) use of aspirin; Z79.4 Long term (current) use of insulin

== ENCOUNTER → 2017-07-30 | Outpatient (CLI) | payer OTHER ==
[~2017-07-30] MED LIST changes: +CEPH500C2 PO; -IMDSR30 PO; +ISOS30TA35 PO; +PANT40TA2 PO; -PRT40 PO; +TPRSR/25 PO; -TPRSR25 PO; -TRMCR180 TD
[2017-07-30 13:15] LABS: BLOOD UREA NITROGEN 13 mg/dl (7-18); CALCIUM 8.4 mg/dl (8.5-10.1); CARBON DIOXIDE 29 mmol/L (21-32); CREATININE 1.03 mg/dl (0.60-1.20); GLUCOSE 173 mg/dl (70-99); SODIUM 140 mmol/L (136-145)
[2017-07-30 13:27] LABS: CREATININE RANDOM URINE 45.1 mg/dl
[2017-07-30 13:33] LABS: HEMOGLOBIN A1C 7.6 % (4.5-5.6)
== END | disposition home or self-care (01) ==
LOC: C.LABPVFM 09:02
PROVIDERS: ATTEND Family Medicine
DX: E11.9 Type 2 diabetes mellitus without complications (principal); E03.8 Other specified hypothyroidism; E06.3 Autoimmune thyroiditis

== ENCOUNTER → 2017-11-05 | Outpatient (CLI) | payer OTHER ==
[~2017-11-05] MED LIST changes: -CEPH500C2 PO
[2017-11-05 13:33] LABS: HEMOGLOBIN A1C 7.2 % (4.5-5.6)
== END | disposition home or self-care (01) ==
LOC: C.LABPVFM 11:12
PROVIDERS: ATTEND Family Medicine
DX: I25.10 Atherosclerotic heart disease of native coronary artery without angina pectoris (principal); E11.9 Type 2 diabetes mellitus without complications

== ENCOUNTER 2019-02-22 19:53 | Inpatient (IN) ==
[2019-02-22] MEDS ORDERED: SODIUM CHLORIDE 0.9% 1000ML 2,000 ML IV SCH (20:15)
--- NOTE | 2019-02-22 20:28 | XRay Report ---
XR chest 1V portable CLINICAL HISTORY: fall trauma COMPARISON STUDY: 04/21/2018 FINDINGS: Mild cardiac enlargement. Lungs are clear. Diaphragms are smooth. Bipolar cardiac pacemaker appears to be intact. IMPRESSION: No acute process. The above report was generated using voice recognition software. It may contain grammatical, syntax or spelling errors. Electronically signed by: Gamaliel Garay M.D. 02/22/2019 8:27 PM
[2019-02-22 20:36] LABS: iSTAT Creatinine 1.5 mg/dl (0.6-1.3); iSTAT Hemoglobin 10.5 g/dl (12.0-16.0); iSTAT Ionized Calcium 1.07 mmol/l (1.12-1.32); iSTAT Potassium 4.4 mEq/L (3.3-5.0)
[2019-02-22 20:39] LABS: Basophils # (auto) 0.02 K/uL (0-0.2); Basophils % (auto) 0.3 %; Eosinophils # (auto) 0.04 K/uL (0-0.5); Eosinophils % (auto) 0.5 %; Hematocrit (blood only) 34.2 % (37-47); Hemoglobin 10.9 g/dL (12.0-16.0); Immature Granulocytes # (auto) 0.01 K/uL (0.00-0.02); Immature Granulocytes % (auto) 0.1 %; Mean Corpuscular Hemoglobin 30.2 pg (25-34); Mean Corpuscular Hgb Conc 31.9 g/dL (32-36); Mean Corpuscular Volume 94.7 fL (80-100); Mean Platelet Volume 10.5 fL (7.4-10.4); Monocytes # (auto) 0.48 K/uL (0.11-0.59); Monocytes % (auto) 6.4 %; Neutrophils # (auto) 6.02 K/uL (1.4-6.5); Neutrophils % (auto) 80.7 %; Platelet Count 176 K/uL (130-400); RDW Coefficient of Variation 13.4 % (11.5-14.5); RDW Standard Deviation 46.3 fL (36.4-46.3); Red Blood Count 3.61 M/uL (4.2-5.4); White Blood Count 7.47 K/uL (4.8-10.8)
--- NOTE | 2019-02-22 20:48 | CT Scan Report ---
CT head/brain wo con CT DOSE: 1051.45 mGy.cm HISTORY: Mental status change syncope TECHNIQUE: Multiaxial CT images of the head were performed without the use of intravenous contrast. A dose lowering technique was utilized adhering to the principles of ALARA. Comparison: 11/08/2018 Findings: The paranasal sinuses and mastoid air cells are clear. The calvarium and skull base are int act. The ventricles and sulci are within normal limits. There is no mass, hematoma, midline shift, or acute infarct. Chronic small vessel change and age-related atrophy. Impression: No acute intracranial abnormality. Age-related change. No acute process. The above report was generated using voice recognition software. It may contain grammatical, syntax or spelling errors. Electronically signed by: Gamaliel Garay M.D. 02/22/2019 8:47 PM
--- NOTE | 2019-02-22 20:52 | CT Scan Report ---
CT cervical spine wo con CT DOSE: HISTORY: Trauma. Pain. fall TECHNIQUE: Multiaxial CT images of the cervical spine were performed and reformatted in the sagittal and coronal plane without the use of contrast. A dose lowering technique was utilized adhering to th e principles of ALARA. COMPARISON: None. FINDINGS: No fractures. No subluxation. Prevertebral soft tissues and the C1-C2 interval are intact. No pneumothorax. IMPRESSION: 1. No acute process. 2. Considerable degenerative change. 3. Considerable atherosclerotic change of the carotid vasculature. This potentially is 80-90% at the left carotid bifurcation and internal carotid arteries and 50% on the right. The above report was generated using voice recognition software. It may contain grammatical, syntax or spelling errors. Electronically signed by: Gamaliel Garay M.D. 02/22/2019 8:51 PM
[2019-02-22 20:53] LABS: Prothrombin Time 10.5 Seconds (9.0-12.0)
[2019-02-22 21:02] LABS: Alanine Aminotransferase 16 U/L (12-78); Albumin Level 3.4 gm/dl (3.4-5.0); Aspartate Aminotransferase 17 U/L (15-37); BUN Creatinine Ratio 14.1 (10-20); Blood Urea Nitrogen 22 mg/dl (7-18); Carbon Dioxide 26 mmol/L (21-32); Chloride 107 mmol/L (98-107); Est GFR (African American) 35.7; Est GFR (Non-African American) 30.8; Glucose 245 mg/dl (70-99); Potassium 4.2 mmol/L (3.5-5.1); Sodium 140 mmol/L (136-145)
[2019-02-22 21:13] LABS: Albumin Globulin Ratio 1.1 (0.9-2); Alkaline Phosphatase 82 U/L (45-117); Bilirubin,Total 0.3 mg/dl (0.2-1); Globulin 3.1 gm/dl (2.5-4.0); Total Protein 6.5 gm/dl (6.4-8.2); Troponin I < 0.015 ng/ml (0-0.045)
[2019-02-22 21:26] LABS: T4 Free Thyroxine 1.25 ng/dl (0.8-1.6)
[2019-02-22] MEDS ORDERED: ONDANSETRON INJ 2 MG/ML 2 ML VIAL IV STA (21:36)
[2019-02-22] MEDS ORDERED: IOVERSOL 100ml IV PRN (21:46)
--- NOTE | 2019-02-22 22:05 | CT Scan Report ---
CT chest w con CT DOSE: HISTORY: Trauma fall hypotension TECHNIQUE: Multiaxial CT images of the chest were performed following the intravenous administration of contrast. A dose lowering technique was utilized adhering to the principles of ALARA. COMPARISON: 01/23/2018 FINDINGS: Interval development of a small pericardial effusion. Maximum thickness is 9 mm. The lungs are considered clear. Postoperative changes of a prior hiatal hernia repair. This is unaltered. Several old lower right rib fractures. A well-defined acute bony abnormality is not appreciated. IMPRESSION: Chronic and pre-existing change. No acute process. Small pericardial effusion The above report was generated using voice recognition software. It may contain grammatical, syntax or spelling errors. Electronically signed by: Gamaliel Garay M.D. 02/22/2019 10:03 PM
--- NOTE | 2019-02-22 22:07 | CT Scan Report ---
CT abd pelvis IV con only CT DOSE: 1225.04 mGy.cm HISTORY: Trauma fall hypotension TECHNIQUE: Multiaxial CT images of the abdomen and pelvis were performed following the use of intrave nous contrast. A dose lowering technique was utilized adhering to the principles of ALARA. COMPARISON STUDY: 01/23/2018 FINDINGS: Small pericardial effusion. Liver spleen and pancreas are unremarkable. Moderate cortical s carring kidneys. There is a nonobstructing lower pole left renal calyceal calcification. Operative findings consistent with gastric bypass as well as hiatal hernia repair. Nonobstructive bowel pattern. No evidence for free fluid within the abdomen or pelvic regions. Degenerative change of the bony structures. No well-defined acute posttraumatic abnormality. IMPRESSION: 1. No acute abnormality of the abdomen or pelvis. 2. Small pericardial effusion. The above report was generated using voice recognition software. It may contain grammatical, syntax or spelling errors. Electronically signed by: Gamaliel Garay M.D. 02/22/2019 10:05 PM
[2019-02-22 23:22] LABS: Creatine Kinase 255 U/L (26-192)
--- NOTE | 2019-02-22 23:28 | Emergency Department Note ---
Entered by Tori Diaz acting as a scribe for Bob Hackett DO History of Present Illness General Chief complaint: Chest Pain Stated complaint: FALL, CHEST PAIN Source: patient History of Present Illness Provider complaint: fall Onset (ago): hour(s) (DEVELOPMENT LEAD) Pain Consistency: + other (episode ) Relieved By: + none Exacerbated By: + none Associated symptoms: + chest pain and + other (-runny nose, -pain/burning during urination); no cough The patient is a 78 year old female who presents to the Emergency Room with complaints of a fall that occurred prior to arrival. The patient reports that she remembers the fall but then at the same time she does not remember how she got to the floor as she states she rolled out of bed onto the floor. She then says that she got up out of bed and she fell in between the bed and the dresser.. She notes that she lowered herself down gently. She notes that she did not fell on her chest, but is experiencing chest pain. She notes that it feels like an aching pain. She denies any cough, runny nose, pain or burning during urination. She mentions that she had treatment prior to arrival, but is not sure what they gave her in by EMS. No other exacerbating or remitting factors. Home Medications Home Medications Medication Instructions Recorded Confirmed Type aspirin 81 mg PO QAM 12/06/17 02/22/19 History atorvastatin 10 mg PO QAM 12/06/17 02/22/19 History citalopram 10 mg PO QAM 12/06/17 02/22/19 History insulin glargine [Lantus Solostar 14 unit SUBCUT QAM 12/06/17 02/22/19 History U-100 Insulin] levothyroxine 25 mcg PO QAM 12/06/17 02/22/19 History metoprolol succinate 25 mg PO QAM 12/06/17 02/22/19 History pantoprazole [Protonix] 40 mg PO QAM 12/06/17 02/22/19 History pediatric multivitamin 1 tab PO QAM 12/06/17 02/22/19 History [Flintstones Multivitamin] cyanocobalamin (vitamin B-12) 1 mcg IM MONTHLY 04/21/18 02/22/19 History albuterol sulfate 2 puff INHALATION Q4H PRN 11/08/18 02/22/19 History clopidogrel [Plavix] 75 mg PO QAM 11/08/18 02/22/19 History cyanocobalamin (vitamin B-12) 500 mcg PO QAM 11/08/18 02/22/19 History ferrous sulfate 325 mg PO BID 11/08/18 02/22/19 History lisinopril 2.5 mg PO QAM 11/08/18 02/22/19 History Allergies Allergy/AdvReac Type Severity Reaction Status Date / Time adhesive Allergy Unknown ADHESIVE Verified 11/08/18 09:39 TAPE Past Med/Surg History Medical History Aortic root dilatation (Chronic) Asthma (Chronic) CAD (coronary artery disease) (Chronic) "1995 - PTCA and stenting of RCA 07/2011 - atherectomy and stenting RCA 12/2011- AZALIA to the mid LAD" Depression (Chronic) DM type 2 (diabetes mellitus, type 2) (Chronic) Dyslipidemia (Chronic) Hypothyroidism (Chronic) HOMERO (iron deficiency anemia) (Chronic) Macular degeneration (Chronic) MDS (myelodysplastic syndrome) (Chronic) Mild aortic stenosis (Chronic) Surgical History History of angioplasty (Chronic) History of arthroscopy of knee (Chronic) History of arthroscopy of shoulder (Chronic) History of cholecystectomy (Chronic) History of gastric bypass (Chronic) History of incisional hernia repair (Chronic) History of partial hysterectomy (Chronic) History of tonsillectomy (Chronic) Family History Other Family history non-contributory Social History Preferred Language: Cameroonian Communication Ability: Effective Visual Impairment: No Limitations Hearing Ability: Normal current occupational status: retired Feels Safe at Home: Yes Smoking Status: Never smoker Review of Systems See HPI for pertinent positives & negatives. and A total of 10 systems reviewed and were otherwise negative Physical Exam Vital Signs Vital Signs - 24 hr 02/22/19 19:58 02/22/19 20:00 02/22/19 20:06 Temperature Temperature Source Pulse Rate 62 61 60 Pulse Rate from SpO2 Sensor 61 61 61 Respiratory Rate 19 24 26 H Respiratory Effort / Characteristics Respiratory Depth Blood Pressure 83/51 L 77/54 L Blood Pressure Mean 53 59 Pulse Oximetry 96 97 98 Oxygen Delivery Method Sepsis Recent Fever Within 48 Hours Sepsis New/Unexplained Change in Mental Status Sepsis Action Taken by Nursing 02/22/19 20:08 02/22/19 20:09 02/22/19 20:10 Temperature 36.6 C Temperature Source Oral Pulse Rate 61 62 64 Pulse Rate from SpO2 Sensor 63 62 Respiratory Rate 18 23 22 Respiratory Effort / Characteristics Non-Labored Spontaneous Respiratory Depth Normal Blood Pressure 83/51 L 78/49 L Blood Pressure Mean 61 52 Pulse Oximetry 97 98 97 Oxygen Delivery Method Room Air Sepsis Recent Fever Within 48 Hours No Sepsis New/Unexplained Change in Mental Status No Sepsis Action Taken by Nursing No Action Required 02/22/19 20:15 02/22/19 20:20 02/22/19 20:45 Temperature Temperature Source Pulse Rate 60 62 Pulse Rate from SpO2 Sensor 60 62 Respiratory Rate 19 24 Respiratory Effort / Characteristics Respiratory Depth Blood Pressure 94/52 L Blood Pressure Mean 57 Pulse Oximetry 97 99 98 Oxygen Delivery Method Room Air Sepsis Recent Fever Within 48 Hours Sepsis New/Unexplained Change in Mental Status Sepsis Action Taken by Nursing 02/22/19 20:46 02/22/19 20:50 02/22/19 21:00 Temperature Temperature Source Pulse Rate 61 60 60 Pulse Rate from SpO2 Sensor 61 60 56 L Respiratory Rate 20 18 22 Respiratory Effort / Characteristics Respiratory Depth Blood Pressure Blood Pressure Mean Pulse Oximetry 96 97 98 Oxygen Delivery Method Sepsis Recent Fever Within 48 Hours Sepsis New/Unexplained Change in Mental Status Sepsis Action Taken by Nursing 02/22/19 21:10 02/22/19 21:20 02/22/19 21:30 Temperature Temperature Source Pulse Rate 61 60 61 Pulse Rate from SpO2 Sensor 62 60 62 Respiratory Rate 18 27 H 15 Respiratory Effort / Characteristics Respiratory Depth Blood Pressure Blood Pressure Mean Pulse Oximetry 100 100 98 Oxygen Delivery Method Sepsis Recent Fever Within 48 Hours Sepsis New/Unexplained Change in Mental Status Sepsis Action Taken by Nursing 02/22/19 22:02 02/22/19 22:03 02/22/19 22:10 Temperature Temperature Source Pulse Rate 61 61 62 Pulse Rate from SpO2 Sensor 63 Respiratory Rate 16 13 14 Respiratory Effort / Characteristics Respiratory Depth Blood Pressure 104/61 Blood Pressure Mean 66 Pulse Oximetry 92 Oxygen Delivery Method Sepsis Recent Fever Within 48 Hours Sepsis New/Unexplained Change in Mental Status Sepsis Action Taken by Nursing 02/22/19 22:20 02/22/19 22:30 Temperature Temperature Source Pulse Rate 63 63 Pulse Rate from SpO2 Sensor 63 64 Respiratory Rate 19 14 Respiratory Effort / Characteristics Respiratory Depth Blood Pressure Blood Pressure Mean Pulse Oximetry 100 98 Oxygen Delivery Method Sepsis Recent Fever Within 48 Hours Sepsis New/Unexplained Change in Mental Status Sepsis Action Taken by Nursing GENERAL: alert, well appearing, well nourished, no distress, non-toxic HEAD: normal cephalic, atraumatic FACE: Bruising under left eye EYE EXAM: normal conjunctiva, PERRL and EOM's grossly intact OROPHARYNX: no exudate, no erythema, lips, buccal mucosa, and tongue normal and mucous membranes are moist EARS: TMs clear b/l NECK: supple, no nuchal rigidity, no adenopathy, non-tender CHEST: stable to compression anteriorly and posteriorly, pacer pocket in left upper chest wall LUNGS: clear to auscultation. Normal chest wall mechanics HEART: no murmurs, S1 normal and S2 normal ABDOMEN: abdomen soft, non-tender, normo-active bowel sounds, no masses, no rebound or guarding. PELVIS: stable to compression anteriorly and posteriorly BACK: Back is symmetrical on inspection and there is no deformity, no midline tenderness, no CVA tenderness. UPPER EXTREMITIES: full active and passive range of motion of all joints without tenderness to palpation LOWER EXTREMITIES: full active and passive range of motion of all joints without tenderness to palpation NEURO EXAM: Awake and alert but slightly confused to the events that how she ended up on the floor, cranial nerves II-XII grossly intact, normal speech, no gross weakness of arms, no gross weakness of legs. GCS: 15. Course Course ED COURSE: Vital signs were reviewed and showed The patients medical record was reviewed The above diagnostic studies were performed and reviewed. ED treatments and interventions as stated above. 2003: The patient was evaluated in room C3. A complete history and physical examination was performed. 2099: I reevaluated the patient and her blood pressure is at 95. She is compla ining of mild neck pain. 2136: I reevaluated the patient and she is experiencing nausea. 2221: I discussed the patient's case with Dr. Dank Figueroa Hospitalist, he will accept the patient for further evaluation. 2229: Upon reevaluation, the patient is resting comfortable. I discussed my findings with the patient and she understands and agrees with the treatment plan. Based on the patients age, coexisting illnesses, exam and lab findings the decision to treat as an inpatient was made. The patient remained stable while under my care. The patient will be evaluated for further management. Administered Medications Ioversol (Optiray 320 100ml) 94 ml IV ONCE PRN PRN Reason: Interaction Checking Stop: 02/26/19 21:45 Last Admin: 02/22/19 21:47 Dose: 94 ml Documented by: [id number] Discontinued Medications Sodium Chloride (Nss 1000ml) 2,000 mls @ 999 mls/hr IV .Q2H1M SYED Stop: 02/22/19 22:15 Last Infusion: 02/22/19 22:34 Dose: 0 mls/hr Documented by: [id number] Admin: 02/22/19 20:21 Dose: 999 mls/hr Documented by: [id number] Ondansetron HCl (Zofran) 4 mg IV NOW STA Stop: 02/22/19 21:37 Last Admin: 02/22/19 21:41 Dose: 4 mg Documented by: [id number] Critical Care Time Critical Care Time: Yes Total Critical Care Time: 31 I have personally spent 31 minutes of critical care time in the direct management of this patient. This includes bedside care, interpretation of diagnostic studies, and testing, discussion with consultants, patient, and family members, and other required patient management activities. This 31 minutes is in excess of all separately billable procedures. Medical Decision Making Differential Diagnosis Differential diagnoses include major intracranial, cervical, spinal, thoracic, abdominal, pelvic and neurologic injury. Fracture, contusion, sprain, strain, laceration, abrasions included as well. Medical Records Attestation: I reviewed the patient's medical records. Home Medications Current Medication List: was personally reviewed by me Laboratory Data Attestation: I reviewed the patient's lab results. Result diagrams: 02/22/19 22:07 02/22/19 20:07 Lab Results 02/22/19 02/22/19 02/22/19 Range/Units 20:07 20:07 20:23 WBC (4.8-10.8) K/uL RBC (4.2-5.4) M/uL Hgb (12.0-16.0) g/dL POC Hgb 10.5 L (12.0-16.0) g/dl Hct (37-47) % POC Hct 31 L (37-47) % MCV (80-100) fL MCH (25-34) pg MCHC (32-36) g/dL RDW Std Deviation (36.4-46.3) fL RDW Coeff of Gaston (11.5-14.5) % Plt Count (130-400) K/uL MPV (7.4-10.4) fL Immature Gran % (Auto) % Neut % (Auto) % Lymph % (Auto) % [place] % (Auto) % Eos % (Auto) % Baso % (Auto) % Immature Gran # (Auto) (0.00-0.02) K/uL Neut # (Auto) (1.4-6.5) K/uL Lymph # (Auto) (1.2-3.4) K/uL [place] # (Auto) (0.11-0.59) K/uL Eos # (Auto) (0-0.5) K/uL Baso # (Auto) (0-0.2) K/uL PT 10.5 (9.0-12.0) Seconds INR 1.0 (0.9-1.1) POC Sodium 137 (135-144) mEq/L Sodium 140 (136-145) mmol/L POC Potassium 4.4 (3.3-5.0) mEq/L Potassium 4.2 (3.5-5.1) mmol/L POC Chloride 105 (101-112) mEq/L Chloride 107 (98-107) mmol/L Carbon Dioxide 26 (21-32) mmol/L POC Total CO2 24 (24-31) mEq/l Anion Gap 7.0 (3-11) POC Anion Gap 13.0 L (16-25) mmol/L POC BUN 24 H (7-18) mg/dl BUN 22 H (7-18) mg/dl Creatinine 1.57 H (0.6-1.2) mg/dl POC Creatinine 1.5 H (0.6-1.3) mg/dl Est Cr Clr Drug Dosing 33.0 ml/min Est GFR ( Amer) 35.7 Est GFR (Non-Af Amer) 30.8 BUN/Creatinine Ratio 14.1 (10-20) Glucose 245 H (70-99) mg/dl POC Glucose (other) 244 H (70-99) mg/dl Calcium 9.0 (8.5-10.1) mg/dl POC Ioniz Calcium Betsy 1.07 L (1.12-1.32) mmol/l Magnesium 2.0 (1.8-2.4) mg/dl Total Bilirubin 0.3 (0.2-1) mg/dl AST 17 (15-37) U/L ALT 16 (12-78) U/L Alkaline Phosphatase 82 (45-117) U/L Troponin I < 0.015 (0-0.045) ng/ml Total Protein 6.5 (6.4-8.2) gm/dl Albumin 3.4 (3.4-5.0) gm/dl Globulin 3.1 (2.5-4.0) gm/dl Albumin/Globulin Ratio 1.1 (0.9-2) TSH 6.510 H (0.300-4.500) uIu/ml Free T4 1.25 (0.8-1.6) ng/dl 02/22/19 Range/Units 22:07 WBC 7.47 (4.8-10.8) K/uL RBC 3.61 L (4.2-5.4) M/uL Hgb 10.9 L (12.0-16.0) g/dL POC Hgb (12.0-16.0) g/dl Hct 34.2 L (37-47) % POC Hct (37-47) % MCV 94.7 (80-100) fL MCH 30.2 (25-34) pg MCHC 31.9 L (32-36) g/dL RDW Std Deviation 46.3 (36.4-46.3) fL RDW Coeff of Gaston 13.4 (11.5-14.5) % Plt Count 176 (130-400) K/uL MPV 10.5 H (7.4-10.4) fL Immature Gran % (Auto) 0.1 % Neut % (Auto) 80.7 % Lymph % (Auto) 12.0 % [place] % (Auto) 6.4 % Eos % (Auto) 0.5 % Baso % (Auto) 0.3 % Immature Gran # (Auto) 0.01 (0.00-0.02) K/uL Neut # (Auto) 6.02 (1.4-6.5) K/uL Lymph # (Auto) 0.90 L (1.2-3.4) K/uL [place] # (Auto) 0.48 (0.11-0.59) K/uL Eos # (Auto) 0.04 (0-0.5) K/uL Baso # (Auto) 0.02 (0-0.2) K/uL PT (9.0-12.0) Seconds INR (0.9-1.1) POC Sodium (135-144) mEq/L Sodium (136-145) mmol/L POC Potassium (3.3-5.0) mEq/L Potassium (3.5-5.1) mmol/L POC Chloride (101-112) mEq/L Chloride (98-107) mmol/L Carbon Dioxide (21-32) mmol/L POC Total CO2 (24-31) mEq/l Anion Gap (3-11) POC Anion Gap (16-25) mmol/L POC BUN (7-18) mg/dl BUN (7-18) mg/dl Creatinine (0.6-1.2) mg/dl POC Creatinine (0.6-1.3) mg/dl Est Cr Clr Drug Dosing ml/min Est GFR ( Amer) Est GFR (Non-Af Amer) BUN/Creatinine Ratio (10-20) Glucose (70-99) mg/dl POC Glucose (other) (70-99) mg/dl Calcium (8.5-10.1) mg/dl POC Ioniz Calcium Betsy (1.12-1.32) mmol/l Magnesium (1.8-2.4) mg/dl Total Bilirubin (0.2-1) mg/dl AST (15-37) U/L ALT (12-78) U/L Alkaline Phosphatase (45-117) U/L Troponin I (0-0.045) ng/ml Total Protein (6.4-8.2) gm/dl Albumin (3.4-5.0) gm/dl Globulin (2.5-4.0) gm/dl Albumin/Globulin Ratio (0.9-2) TSH (0.300-4.500) uIu/ml Free T4 (0.8-1.6) ng/dl Imaging Data Radiologist's Impression: Radiology results as stated below per my review and the radiologist's interpretation: CT cervical spine wo con CT DOSE: HISTORY: Trauma. Pain. fall TECHNIQUE: Multiaxial CT images of the cervical spine were performed and reformatted in the sagittal and coronal plane without the use of contrast. A dose lowering technique was utilized adhering to the principles of ALARA. COMPARISON: None. FINDINGS: No fractures. No subluxation. Prevertebral soft tissues and the C1-C2 interval are intact. No pneumothorax. IMPRESSION: 1. No acute process. 2. Considerable degenerative change. 3. Considerable atherosclerotic change of the carotid vasculature. This potentially is 80-90% at the left carotid bifurcation and internal carotid arteries and 50% on the right. The above report was generated using voice recognition software. It may contain grammatical, syntax or spelling errors. Electronically signed by: Gamaliel Garay M.D. 02/22/2019 8:51 PM XR chest 1V portable CLINICAL HISTORY: fall trauma COMPARISON STUDY: 04/21/2018 FINDINGS: Mild cardiac enlargement. Lungs are clear. Diaphragms are smooth. Bipolar cardiac pacemaker appears to be intact. IMPRESSION: No acute process. The above report was generated using voice recognition software. It may contain grammatical, syntax or spelling errors. Electronically signed by: Gamaliel Garay M.D. 02/22/2019 8:[address] head/brain wo con CT DOSE: 1051.45 mGy.cm HISTORY: Mental status change syncope TECHNIQUE: Multiaxial CT images of the head were performed without the use of intravenous contrast. A dose lowering technique was utilized adhering to the principles of ALARA. Comparison: 11/08/2018 Findings: The paranasal sinuses and mastoid air cells are clear. The calvarium and skull base are intact. The ventricles and sulci are within normal limits. There is no mass, hematoma, midline shift, or acute infarct. Chronic small vessel change and age-related atrophy. Impression: No acute intracranial abnormality. Age-related change. No acute process. The above report was generated using voice recognition software. It may contain grammatical, syntax or spelling errors. Electronically signed by: Gamaliel Garay M.D. 02/22/2019 8:[address] abd pelvis IV con only CT DOSE: 1225.04 mGy.cm HISTORY: Trauma fall hypotension TECHNIQUE: Multiaxial CT images of the abdomen and pelvis were performed following the use of intravenous contrast. A dose lowering technique was utilized adhering to the principles of ALARA. COMPARISON STUDY: 01/23/2018 FINDINGS: Small pericardial effusion. Liver spleen and pancreas are unremarkable. Moderate cortical scarring kidneys. There is a nonobstructing lower pole left renal calyceal calcification. Operative findings consistent with gastric bypass as well as hiatal hernia repair. Nonobstructive bowel pattern. No evidence for free fluid within the abdomen or pelvic regions. Degenerative change of the bony structures. No well-defined acute posttraumatic abnormality. IMPRESSION: 1. No acute abnormality of the abdomen or pelvis. 2. Small pericardial effusion. The above report was generated using voice recognition software. It may contain grammatical, syntax or spelling errors. Electronically signed by: Gamaliel Garay M.D. 02/22/2019 10:[address] chest w con CT DOSE: HISTORY: Trauma fall hypotension TECHNIQUE: Multiaxial CT images of the chest were performed following the intravenous administration of contrast. A dose lowering technique was utilized adhering to the principles of ALARA. COMPARISON: 01/23/2018 FINDINGS: Interval development of a small pericardial effusion. Maximum thickness is 9 mm. The lungs are considered clear. Postoperative changes of a prior hiatal hernia repair. This is unaltered. Several old lower right rib fractures. A well-defined acute bony abnormality is not appreciated. IMPRESSION: Chronic and pre-existing change. No acute process. Small pericardial effusion The above report was generated using voice recognition software. It may contain grammatical, syntax or spelling errors. Electronically signed by: Gamaliel Garay M.D. 02/22/2019 10:03 PM ECG Data Attestation: I personally reviewed and interpreted this ECG as follows: Indication: + chest pain Rate (beats per minute): 62 Rhythm: + other (duel paced) ECG Intervals/blocks: + Right Bundle branch block ECG [place]: + Left axis deviation ECG Findings: + Other (Non-specific ST changes in lateral and inferior leads) Comparison ECG Date: from (11/08/18) Change: the following changes noted (ST changes are new) Blood Pressure Blood Pressure Findings: Low blood pressure Blood Pressure Disposition: further management by hospitalist MISHA Narrative Patient is an 78-year-old female who presents the ER for a fall but has trouble describing how the fall occurred. Initially upon presentation she is found to be hypotensive with systolic pressures in the 70s. This was fairly persistent. Multiple blood pressures in the 70s and 80s. She does take Plavix. IV was established blood work was obtained and showed no significant leukocytosis. Mild anemia 10.9. INR was unremarkable. BMP with a creatinine 1.57. LFTs bilirubin and troponin was unremarkable. TSH was elevated at 6.5 but free T4 was normal. Urine was now obtained while in the ER. CT head, cervical spine, chest abdomen pelvis was negative. Patient was given 2 L IV fluids and blood pressures eventually came up into the low 100s. EKG was nondiagnostic but did have some subtle changes. Patient was updated at bedside. Discussed with the hospitalist for observation due to the hypotension. Impression & Plan Fall, Hypotension, Weakness, Abnormal ECG Discharge Plan Visit Data Chief Complaint: Chest Pain Stated Complaint: FALL, CHEST PAIN ED Provider: Bob Hackett Discharge Problem: Fall, Hypotension, Weakness, Abnormal ECG Patient Disposition: Being Evaluated by Hospitalist Forms Stand Alone Forms: Call Back Authorization Prescriptions Prescriptions: No Action atorvastatin 10 mg Tablet 10 mg PO QAM RF: 0 citalopram 10 mg Tablet 10 mg PO QAM RF: 0 pediatric multivitamin [Flintstones Multivitamin] Tablet,Chewable 1 tab PO QAM RF: 0 aspirin 81 mg Tablet,Delayed Release (Dr/Ec) 81 mg PO QAM RF: 0 metoprolol succinate 25 mg Tablet Extended Release 24 Hr 25 mg PO QAM RF: 0 Lantus Solostar U-100 Insulin 100 unit/mL (3 mL) Insulin Pen 14 unit SUBCUT QAM RF: 0 Protonix [address] For Susp In Packet 40 mg PO QAM RF: 0 levothyroxine 25 mcg Capsule 25 mcg PO QAM RF: 0 cyanocobalamin (vitamin B-12) 1,000 mcg/mL solution 1 mcg IM MONTHLY RF: 0 clopidogrel [Plavix] 75 mg Tablet 75 mg PO QAM RF: 0 cyanocobalamin (vitamin B-12) 500 mcg Tablet 500 mcg PO QAM RF: 0 ferrous sulfate 325 mg (65 mg iron) Tablet 325 mg PO BID RF: 0 albuterol sulfate 90 mcg/actuation Hfa Aerosol Inhaler 2 puff INHALATION Q4H PRN (Reason: Shortness Of Breath Or Wheezing) RF: 0 lisinopril 2.5 mg tablet 2.5 mg PO QAM RF: 0 Referrals Referrals: Liza Dobbs DO [Primary Care Provider] - Discharge Problem: Fall Qualifiers: Encounter type: initial encounter Qualified Code(s): W19.XXXA - Unspecified fall, initial encounter Hypotension Qualifiers: Hypotension type: unspecified hypotension type Qualified Code(s): I95.9 - Hypotension, unspecified The scribe's documentation has been prepared under my direction and personally reviewed by me in its entirety. I confirm that the note above accurately reflects all work, treatment, procedures, and medical decision making performed by me.
[2019-02-22 23:58] LABS: Lipase 71 U/L (73-393)
[2019-02-23] MEDS: LACTATED RINGER'S 1,000 ML IV SCH ×3 (01:04→06:24)
[2019-02-23] MEDS ORDERED: TRAMADOL HCL 50 MG TABLET PO PRN (02:02)
[2019-02-23] MEDS ORDERED: GLUCOSE 40% GEL 15 GM TUBE PO PRN (02:02)
[2019-02-23] MEDS ORDERED: DEXTROSE 50% 50 ML SYRINGE IV PRN (02:02)
[2019-02-23] MEDS ORDERED: NITROGLYCERIN SL 0.4 MG/TAB TAB SL PRN (02:02)
[2019-02-23] MEDS ORDERED: GLUCOSE 10 TABS/TUBE PO PRN (02:02)
[2019-02-23] MEDS ORDERED: GLUCAGON FOR INJ 1 MG VIAL SQ PRN (02:02)
[2019-02-23] MEDS ORDERED: ACETAMINOPHEN 325 MG TAB PO PRN (02:02)
[2019-02-23] MEDS ORDERED: INSULIN GLARGINE SOLOSTAR 100 UNITS/ML 3 ML PEN SC STA (02:02)
[2019-02-23] MEDS ORDERED: CARBOHYDRATES FOR HYPOGLYCEMIA PO PRN (02:02)
[2019-02-23] MEDS ORDERED: PROMETHAZINE HCL 12.5 MG in SODIUM CHLORIDE 0.9% 50 ML IV PRN (02:02)
[2019-02-23] MEDS: INSULIN ASPART 100 UNITS/ML 3 ML PEN SC SCH ×5 (03:04→21:01)
[2019-02-23 05:32] LABS: Hematocrit (blood only) 32.3 % (37-47); Hemoglobin 10.6 g/dL (12.0-16.0); Immature Granulocytes # (auto) 0.01 K/uL (0.00-0.02); Immature Granulocytes % (auto) 0.1 %; Lymphocytes # (auto) 0.33 K/uL (1.2-3.4); Lymphocytes % (auto) 4.6 %; Mean Corpuscular Hemoglobin 30.5 pg (25-34); Mean Corpuscular Hgb Conc 32.8 g/dL (32-36); Mean Corpuscular Volume 92.8 fL (80-100); Mean Platelet Volume 10.8 fL (7.4-10.4); Monocytes # (auto) 0.58 K/uL (0.11-0.59); Monocytes % (auto) 8.1 %; Neutrophils # (auto) 6.26 K/uL (1.4-6.5); Neutrophils % (auto) 87.2 %; Platelet Count 147 K/uL (130-400); RDW Coefficient of Variation 13.8 % (11.5-14.5); RDW Standard Deviation 46.8 fL (36.4-46.3); Red Blood Count 3.48 M/uL (4.2-5.4); White Blood Count 7.18 K/uL (4.8-10.8)
--- NOTE | 2019-02-23 05:40 | History & Physical Report ---
Date of Service February 23, 2019 Assessment & Plan (1) Hypotension: ARF Fall likely secondary to orthostasis secondary to low BP chronic diastolic heart failure (EF 55 to 59%, TTE 2019), patient clinically dry SSS sp PPM, paced rhythm CAD status post stent valvular heart disease (mild aortic stenosis, moderate mitral stenosis) DM 2 insulin requiring, reasonable control as of recent outpatient hemoglobin A1c of 7.17 February 2019 chronic anemia, hemoglobin at baseline myelodysplastic syndrome as per records. No recent follow-up with outpatient Hematology. Medical telemetry given hypotension Baseline UA, monitor creatinine sponsor IV fluids Basal insulin, ISS BG goal [id number], carb count coverage PT OT eval DVT prophylaxis. Heparin subcu DNR Patient son requesting updates for providers. Mr. Kevan Palomo, contact #[phone]. History of Present Illness Chief Complaint: Fall as per patient Primary Care Provider: Liza Dobbs, History obtained from patient and records. Medical history significant for chronic diastolic heart failure (EF 55 to 59%, TTE 2019), SSS sp PPM, CAD status post stent, valvular heart disease (mild aortic stenosis, moderate mitral stenosis), hypertension, hyperlipidemia, DM 2 insulin requiring, hypothyroidism, chronic anemia (baseline hemoglobin of 11), myelodysplastic syndrome as per records. Recent confinement November 2016 for sick sinus syndrome status post PPM. Patient brought to the ER after falling from the bed after trying to get up. Denies chest pain, S OB, syncope, headache. Bruising on the left eye secondary to scratching as per patient. Appetite usual as per patient. Minimal abdominal discomfort. No diarrhea, dysuria symptoms. SBP upon arrival at the ER 70 to 80s. IVF boluses given at the ER. Patient currently having emesis episode at the ER. 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, lives with son Allergies Allergy/AdvReac Type Severity Reaction Status Date / Time adhesive Allergy Unknown ADHESIVE Verified 11/08/18 09:39 TAPE Home Medications Home Medications Medication Instructions Recorded Confirmed Type aspirin 81 mg PO QAM 12/06/17 02/22/19 History atorvastatin 10 mg PO QAM 12/06/17 02/22/19 History citalopram 10 mg PO QAM 12/06/17 02/22/19 History insulin glargine [Lantus Solostar 14 unit SUBCUT QAM 12/06/17 02/22/19 History U-100 Insulin] levothyroxine 25 mcg PO QAM 12/06/17 02/22/19 History metoprolol succinate 25 mg PO QAM 12/06/17 02/22/19 History pantoprazole [Protonix] 40 mg PO QAM 12/06/17 02/22/19 History pediatric multivitamin 1 tab PO QAM 12/06/17 02/22/19 History [Flintstones Multivitamin] cyanocobalamin (vitamin B-12) 1 mcg IM MONTHLY 04/21/18 02/22/19 History albuterol sulfate 2 puff INHALATION Q4H PRN 11/08/18 02/22/19 History clopidogrel [Plavix] 75 mg PO QAM 11/08/18 02/22/19 History cyanocobalamin (vitamin B-12) 500 mcg PO QAM 11/08/18 02/22/19 History ferrous sulfate 325 mg PO BID 11/08/18 02/22/19 History lisinopril 2.5 mg PO QAM 11/08/18 02/22/19 History Past Med/Surg History Medical History Aortic root dilatation (Chronic) Asthma (Chronic) CAD (coronary artery disease) (Chronic) "1995 - PTCA and stenting of RCA 07/2011 - atherectomy and stenting RCA 12/2011- AZALIA to the mid LAD" Depression (Chronic) DM type 2 (diabetes mellitus, type 2) (Chronic) Dyslipidemia (Chronic) Hypothyroidism (Chronic) HOMERO (iron deficiency anemia) (Chronic) Macular degeneration (Chronic) MDS (myelodysplastic syndrome) (Chronic) Mild aortic stenosis (Chronic) Surgical History History of angioplasty (Chronic) History of arthroscopy of knee (Chronic) History of arthroscopy of shoulder (Chronic) History of cholecystectomy (Chronic) History of gastric bypass (Chronic) History of incisional hernia repair (Chronic) History of partial hysterectomy (Chronic) History of tonsillectomy (Chronic) Family History Other Family history non-contributory Social History Preferred Language: Frisian Communication Ability: Effective Visual Impairment: No Limitations Hearing Ability: Normal Food Cart Attendant Required: No Beliefs That Will Affect Care: None marital status: / Current Living Situation: Family Current Living Situation Comment: Pt lives with her son, [id number], daughter, son-in-law, & 2 children current occupational status: retired Other Information That Helps Us Care for You: No Feels Safe at Home: No Is there a partner from a previous relationship who is making you feel unsafe now?: No Any Concerns about Your Family Situation: No Would You Like to Speak to Someone About Your Situation: No Safety Concerns: Feels Safe At This Time Smoking Status: Never smoker Hx Alcohol Use: Yes (once in a while) Alcohol type: beer Hx Substance Use: No Review of Systems Review of Systems: As per HPI, all 10 systems reviewed, all other ROS negative Physical Exam Physical Exam: GENERAL: Slightly uncomfortable, no respiratory distress, currently dry heaving, obese SKIN: Pallor, warm HEENT: Pale palpebral conjunctivae, ecchymosis left upper lid, no ptosis, dry buccal mucosa NECK : Supple, short neck, no tenderness CHEST : Decreased breath sounds, no tenderness HEART : RRR, diastolic murmur ABDOMEN: Some distention, nontender EXTREMITIES : Minimal LE swelling, no LE tenderness, no other conspicuous deformities noted NEUROLOGIC : Coherent, no facial asymmetry, slightly hard of hearing, no other gross focality Results & Data Vital Signs (Past 12 Hours) Vital Signs Temp Pulse Pulse Pulse Resp BP BP 02/23/19 05:29 62 02/23/19 02:59 36.6 C 65 19 111/72 02/23/19 02:37 36.7 C 62 18 109/70 02/23/19 01:31 61 18 138/57 L 02/23/19 01:00 60 16 118/60 02/23/19 00:00 60 18 112/55 L 02/22/19 23:58 60 18 98/45 L 02/22/19 22:30 63 14 02/22/19 22:20 63 19 02/22/19 22:10 62 14 02/22/19 22:03 61 13 104/61 02/22/19 22:02 61 16 02/22/19 21:30 61 15 02/22/19 21:20 60 27 H 02/22/19 21:10 61 18 02/22/19 21:00 60 22 02/22/19 20:50 60 18 02/22/19 20:46 61 20 02/22/19 20:45 62 24 94/52 L 02/22/19 20:20 60 19 02/22/19 20:15 02/22/19 20:10 64 22 02/22/19 20:09 62 23 78/49 L 02/22/19 20:08 36.6 C 61 18 83/51 L 02/22/19 20:06 60 26 H 77/54 L 02/22/19 20:00 61 24 02/22/19 19:58 62 19 83/51 L Pulse Ox 02/23/19 05:29 02/23/19 02:59 96 02/23/19 02:37 95 02/23/19 01:31 02/23/19 01:00 96 02/23/19 00:00 95 02/22/19 23:58 95 02/22/19 22:30 98 02/22/19 22:20 100 02/22/19 22:10 92 02/22/19 22:03 02/22/19 22:02 02/22/19 21:30 98 02/22/19 21:20 100 02/22/19 21:10 100 02/22/19 21:00 98 02/22/19 20:50 97 02/22/19 20:46 96 02/22/19 20:45 98 02/22/19 20:20 99 02/22/19 20:15 97 02/22/19 20:10 97 02/22/19 20:09 98 02/22/19 20:08 97 02/22/19 20:06 98 02/22/19 20:00 97 02/22/19 19:58 96 Laboratory Results Laboratory Results WBC 7.18 K/uL (4.8-10.8) 02/23/19 05:23 RBC 3.48 M/uL (4.2-5.4) L 02/23/19 05:23 Hgb 10.6 g/dL (12.0-16.0) L 02/23/19 05:23 POC Hgb 10.5 g/dl (12.0-16.0) L 02/22/19 20:23 Hct 32.3 % (37-47) L 02/23/19 05:23 POC Hct 31 % (37-47) L 02/22/19 20:23 MCV 92.8 fL (80-100) 02/23/19 05:23 MCH 30.5 pg (25-34) 02/23/19 05:23 MCHC 32.8 g/dL (32-36) 02/23/19 05:23 RDW Std Deviation 46.8 fL (36.4-46.3) H 02/23/19 05:23 RDW Coeff of Gaston 13.8 % (11.5-14.5) 02/23/19 05:23 Plt Count 147 K/uL (130-400) 02/23/19 05:23 MPV 10.8 fL (7.4-10.4) H 02/23/19 05:23 Immature Gran % (Auto) 0.1 % 02/23/19 05:23 Neut % (Auto) 87.2 % 02/23/19 05:23 Lymph % (Auto) 4.6 % 02/23/19 05:23 Rogers % (Auto) 8.1 % 02/23/19 05:23 Eos % (Auto) 0.0 % 02/23/19 05:23 Baso % (Auto) 0.0 % 02/23/19 05:23 Immature Gran # (Auto) 0.01 K/uL (0.00-0.02) 02/23/19 05:23 Neut # (Auto) 6.26 K/uL (1.4-6.5) 02/23/19 05:23 Lymph # (Auto) 0.33 K/uL (1.2-3.4) L 02/23/19 05:23 Rogers # (Auto) 0.58 K/uL (0.11-0.59) 02/23/19 05:23 Eos # (Auto) 0.00 K/uL (0-0.5) 02/23/19 05:23 Baso # (Auto) 0.00 K/uL (0-0.2) 02/23/19 05:23 PT 10.5 Seconds (9.0-12.0) 02/22/19 20:07 INR 1.0 (0.9-1.1) 02/22/19 20:07 POC Sodium 137 mEq/L (135-144) 02/22/19 20:23 Sodium 140 mmol/L (136-145) 02/22/19 20:07 POC Potassium 4.4 mEq/L (3.3-5.0) 02/22/19 20:23 Potassium 4.2 mmol/L (3.5-5.1) 02/22/19 20:07 POC Chloride 105 mEq/L (101-112) 02/22/19 20:23 Chloride 107 mmol/L (98-107) 02/22/19 20:07 Carbon Dioxide 26 mmol/L (21-32) 02/22/19 20:07 POC Total CO2 24 mEq/l (24-31) 02/22/19 20:23 Anion Gap 7.0 (3-11) 02/22/19 20:07 POC Anion Gap 13.0 mmol/L (16-25) L 02/22/19 20:23 POC BUN 24 mg/dl (7-18) H 02/22/19 20:23 BUN 22 mg/dl (7-18) H 02/22/19 20:07 Creatinine 1.57 mg/dl (0.6-1.2) H 02/22/19 20:07 POC Creatinine 1.5 mg/dl (0.6-1.3) H 02/22/19 20:23 Est Cr Clr Drug Dosing 33.0 ml/min 02/22/19 20:07 Est GFR ( Amer) 35.7 02/22/19 20:07 Est GFR (Non-Af Amer) 30.8 02/22/19 20:07 BUN/Creatinine Ratio 14.1 (10-20) 02/22/19 20:07 Glucose 245 mg/dl (70-99) H 02/22/19 20:07 POC Glucose 274 (70-99) H 02/23/19 02:13 POC Glucose (other) 244 mg/dl (70-99) H 02/22/19 20:23 Lactate 3.0 mmol/L (0.4-2.0) H* 02/22/19 23:30 Calcium 9.0 mg/dl (8.5-10.1) 02/22/19 20:07 POC Ioniz Calcium Betsy 1.07 mmol/l (1.12-1.32) L 02/22/19 20:23 Magnesium 2.0 mg/dl (1.8-2.4) 02/22/19 20:07 Total Bilirubin 0.3 mg/dl (0.2-1) 02/22/19 20:07 AST 17 U/L (15-37) 02/22/19 20:07 ALT 16 U/L (12-78) 02/22/19 20:07 Alkaline Phosphatase 82 U/L (45-117) 02/22/19 20: Total Creatine Kinase 255 U/L (26-192) H 02/22/19 20:07 Troponin I < 0.015 ng/ml (0-0.045) 02/22/19 20:07 Total Protein 6.5 gm/dl (6.4-8.2) 02/22/19 20:07 Albumin 3.4 gm/dl (3.4-5.0) 02/22/19 20:07 Globulin 3.1 gm/dl (2.5-4.0) 02/22/19 20:07 Albumin/Globulin Ratio 1.1 (0.9-2) 02/22/19 20: Lipase 71 U/L (73-393) L 02/22/19 20:07 TSH 6.510 uIu/ml (0.300-4.500) H 02/22/19 20:07 Free T4 1.25 ng/dl (0.8-1.6) 02/22/19 20:[address] head: No acute intracranial abnormality. Age-related change. No acute process. CT cervical spine 1. No acute process. 2. Considerable degenerative change. 3. Considerable atherosclerotic change of the carotid vasculature. This potentially is 80-90% at the left carotid bifurcation and internal carotid arteries and 50% on the right. CT chest: Chronic and pre-existing change. No acute process. Small pericardial effusion CT abdomen pelvis: 1. No acute abnormality of the abdomen or pelvis. 2. Small pericardial effusion. EKG as per my interpretation rate 60, paced rhythm (1) Hypotension Hypotension type: unspecified hypotension type Qualified Code(s): I95.9 - Hypotension, unspecified
[2019-02-23] MEDS: HEPARIN SOD 5,000 UNIT/0.5 ML VIAL SQ SCH ×3 (05:44→20:26)
[2019-02-23] MEDS: LEVOTHYROXINE SODIUM 25 MCG TABLET PO SCH (05:44)
[2019-02-23 05:50] LABS: BUN Creatinine Ratio 17.4 (10-20); Calcium 8.4 mg/dl (8.5-10.1); Creatinine Clr Calc Pharmacy 34.9 ml/min; Est GFR (African American) 39.7; Est GFR (Non-African American) 34.2; Potassium 4.6 mmol/L (3.5-5.1)
[2019-02-23] MEDS ORDERED: SODIUM CHLORIDE 0.9% 1000ML 1,000 ML IV ONE (07:25)
[2019-02-23] MEDS: ASPIRIN 81 MG ECTAB PO SCH (07:55)
[2019-02-23] MEDS: FLINTSTONES COMPLETE CHEWABLE TAB PO SCH (07:55)
[2019-02-23] MEDS: PANTOprazole 40 MG TAB PO SCH (07:55)
[2019-02-23] MEDS: CLOPIDOGREL BISULFATE 75 MG TAB PO SCH (07:55)
[2019-02-23] MEDS: CITALOPRAM 20 MG TAB PO SCH (07:55)
[2019-02-23] MEDS: FERROUS SULFATE 325 MG TAB PO SCH ×2 (07:55→20:25)
[2019-02-23] MEDS: INSULIN GLARGINE SOLOSTAR 100 UNITS/ML 3 ML PEN SQ SCH (08:46)
--- NOTE | 2019-02-23 15:56 | Hospitalist Progress Note ---
Date of Service February 23, 2019 Assessment & Plan (1) Hypotension: FALL Fall likely secondary to orthostasis secondary to low BP Given gentle IV fluid BP has been stable since Fall precaution/check orthostatic vital PT OT eval ordered: Appreciate input from OT, patient appears to be at her baseline functional status, recommends return home with assistance Acute renal failure on CKD stage III Creatinine on admission elevated 1.5-possible secondary to dehydration/poor p.o. intake Given gentle IV fluids, creatinine improved to 1.4(baseline creatinine 1.1-1.2) Continue to monitor BMP Lisinopril kept on hold Avoid NSAIDs, contrast studies Mild elevation of CK: Possible secondary to recent fall Ordered IV hydration, repeat CK level in a.m. Statin kept on hold CHF with diastolic dysfunction chronic diastolic heart failure (EF 55 to 59%, TTE 2018)-no evidence of volume overload valvular heart disease (mild aortic stenosis, moderate mitral stenosis) History of sick sinus syndrome SSS sp permanent pacemaker placement Monitor shows paced rhythm Coronary artery disease CAD status post stent No acute issues, no chest pain shortness of breath or angina symptoms Continue outpatient meds DM 2 insulin-dependent reasonable control as of recent outpatient hemoglobin A1c of 7.17 February 2019 Anemia of chronic disease hemoglobin at baseline myelodysplastic syndrome as per records. No recent follow-up with outpatient Hematology. DVT prophylaxis. Heparin subcu DNR>DNI Patient son requesting updates for providers. Mr. Kevan Palomo, contact #[phone]. Disposition: Possible discharge home with home health, home PT Patient lives with her son, has been independent in her ADLs Active with [employer] All services will be notified prior to patient's discharge home Subjective Offers no new complaint, no cough no shortness of breath no fever or chills Denies of any dizzy spell or lightheadedness Blood pressure been stable: Last recorded BP: 127/74 Physical Exam Constitutional: WD/WN, vitals as above no acute distress Eyes: + anicteric sclerae ENMT: external ear and nose normal, oropharynx normal Neck: trachea midline, no thyromegaly Respiratory: normal respiratory effort, lungs clear to auscultation Cardiovascular: RRR, no murmur, no edema Gastrointestinal (Abdomen): Inspection/Auscultation: abdomen normal to inspection and normal bowel sounds; abdomen not distended Percussion/Palpation: abdomen soft; abdomen nontender and no guarding Musculoskeletal: no cyanosis or clubbing, extremities motor strength 5/5 Skin: no rashes, warm and dry Neurologic: PERRL, EOMI, accommodation nl, no face palsy, no dysarthria Psychiatric: A+Ox3, euthymic affect Results & Data Vital Signs (Past 12 Hours) Vital Signs Temp Pulse Pulse Resp BP Pulse Ox Pulse Ox 02/23/19 15:44 37.9 C H 87 19 127/74 91 02/23/19 15:38 62 02/23/19 11:33 37.4 C 66 16 136/76 96 02/23/19 11:30 96 02/23/19 07:20 37.2 C 58 L 16 147/74 H 95 02/23/19 05:29 62 (1) Hypotension Hypotension type: unspecified hypotension type Qualified Code(s): I95.9 - Hypotension, unspecified
[2019-02-23] MEDS ORDERED: LACTATED RINGER'S 1,000 ML IV SCH (16:15)
[2019-02-24] MEDS: LEVOTHYROXINE SODIUM 25 MCG TABLET PO SCH (05:34)
[2019-02-24] MEDS: HEPARIN SOD 5,000 UNIT/0.5 ML VIAL SQ SCH ×3 (05:34→20:56)
[2019-02-24] MEDS: CITALOPRAM 20 MG TAB PO SCH (07:37)
[2019-02-24] MEDS: CLOPIDOGREL BISULFATE 75 MG TAB PO SCH (07:37)
[2019-02-24] MEDS: PANTOprazole 40 MG TAB PO SCH (07:37)
[2019-02-24] MEDS: ASPIRIN 81 MG ECTAB PO SCH (07:37)
[2019-02-24] MEDS: FERROUS SULFATE 325 MG TAB PO SCH ×2 (07:37→20:56)
[2019-02-24] MEDS: FLINTSTONES COMPLETE CHEWABLE TAB PO SCH (07:37)
[2019-02-24] MEDS: INSULIN GLARGINE SOLOSTAR 100 UNITS/ML 3 ML PEN SQ SCH (08:12)
[2019-02-24] MEDS: INSULIN ASPART 100 UNITS/ML 3 ML PEN SC SCH ×4 (08:12→20:19)
[2019-02-24 08:16] LABS: BUN Creatinine Ratio 20.1 (10-20); Calcium 9.4 mg/dl (8.5-10.1); Creatinine Clr Calc Pharmacy 41.8 ml/min; Est GFR (Non-African American) 41.4; Potassium 4.2 mmol/L (3.5-5.1)
[2019-02-24] MEDS ORDERED: LACTATED RINGER'S 1,000 ML IV SCH (11:30)
[2019-02-24] MEDS ORDERED: ALBUTEROL HFA 8 GM INHALER INH PRN (12:13)
--- NOTE | 2019-02-24 13:39 | Hospitalist Progress Note ---
Date of Service February 24, 2019 Assessment & Plan (1) Hypotension: FALL Fall likely secondary to orthostasis secondary to low BP Given gentle IV fluid BP has been stable PT OT eval ordered: Appreciate input from OT, patient appears to be at her baseline functional status, recommends return home with assistance Acute renal failure on CKD stage III Creatinine on admission elevated 1.5-possible secondary to dehydration/poor p.o. intake Given gentle IV fluids, creatinine improved to 1.4-> 1.3 (baseline creatinine 1.1-1.2) repeat BMP in AM Lisinopril kept on hold Avoid NSAIDs, contrast studies Mild elevation of CK: Possible secondary to recent fall Ordered IV hydration, repeat CK level in a.m. Statin kept on hold CHF with diastolic dysfunction chronic diastolic heart failure (EF 55 to 59%, TTE 2018) -no evidence of volume overload given Iv fluid for dehydration valvular heart disease (mild aortic stenosis, moderate mitral stenosis) History of sick sinus syndrome SSS sp permanent pacemaker placement Coronary artery disease CAD status post stent No acute issues, no chest pain shortness of breath or angina symptoms Continue outpatient meds DM 2 insulin-dependent reasonable control as of recent outpatient hemoglobin A1c of 7.17 February 2019 Anemia of chronic disease hemoglobin at baseline myelodysplastic syndrome as per records. No recent follow-up with outpatient Hematology. DVT prophylaxis. Heparin subcu DNR/DNI Mr. Kevan Palomo, contact #[phone]. Disposition: Possible discharge home tomorrow with home health, home PT Patient lives with her son, has been independent in her ADLs Active with [employer] All services will be notified prior to patient's discharge home Subjective feels fine today awake and alert offers no complain no dizzy spell or lightheadedness Physical Exam Constitutional: WD/WN, vitals as above no acute distress Eyes: + anicteric sclerae ENMT: external ear and nose normal, oropharynx normal Neck: trachea midline, no thyromegaly Respiratory: normal respiratory effort, lungs clear to auscultation Cardiovascular: RRR, no murmur, no edema Gastrointestinal (Abdomen): Inspection/Auscultation: abdomen normal to inspection and normal bowel sounds; abdomen not distended Percussion/Palpation: abdomen soft; abdomen nontender and no guarding Musculoskeletal: no cyanosis or clubbing, extremities motor strength 5/5 Skin: no rashes, warm and dry Neurologic: PERRL, EOMI, accommodation nl, no face palsy, no dysarthria Psychiatric: A+Ox3, euthymic affect Results & Data Vital Signs (Past 12 Hours) Vital Signs Temp Pulse Resp BP Pulse Ox 02/24/19 07:54 37.4 C 74 20 126/77 96 02/24/19 04:06 37.0 C 72 18 147/72 H 96 (1) Hypotension Hypotension type: unspecified hypotension type Qualified Code(s): I95.9 - Hypotension, unspecified
[2019-02-25 02:08] LABS: Appearance Urine Cloudy (Clear); Bilirubin Urine Negative (Negative); Blood Urine Negative (Negative); Color Urine Yellow; Glucose Urine UA Negative (Negative); Ketones Urine Negative (Negative); Leukocyte Esterase Urine 2+ (Negative); Nitrite Urine Negative (Negative); Protein Urine Negative (Negative); Specific Gravity Urine 1.021 (1.000-1.030); Urobilinogen Urine Negative (Negative); WBC Urine Automated >30 /hpf (0-5)
[2019-02-25 02:26] LABS: Bacteria Urine Automated 3+ (Negative)
[2019-02-25 02:27] LABS: Renal Epithelial Cells Urine 0-5 /lpf (0-5)
[2019-02-25 02:29] LABS: RBC Urine Automated 0-4 /hpf (0-4)
[2019-02-25] MEDS: HEPARIN SOD 5,000 UNIT/0.5 ML VIAL SQ SCH (05:49)
[2019-02-25] MEDS: LEVOTHYROXINE SODIUM 25 MCG TABLET PO SCH (06:02)
[2019-02-25] MEDS: ASPIRIN 81 MG ECTAB PO SCH (07:31)
[2019-02-25] MEDS: FERROUS SULFATE 325 MG TAB PO SCH (07:31)
[2019-02-25] MEDS: FLINTSTONES COMPLETE CHEWABLE TAB PO SCH (07:31)
[2019-02-25] MEDS: PANTOprazole 40 MG TAB PO SCH (07:31)
[2019-02-25] MEDS: CLOPIDOGREL BISULFATE 75 MG TAB PO SCH (07:31)
[2019-02-25] MEDS: CITALOPRAM 20 MG TAB PO SCH (07:31)
[2019-02-25] MEDS: INSULIN ASPART 100 UNITS/ML 3 ML PEN SC SCH ×2 (08:14→12:03)
[2019-02-25 08:26] LABS: BUN Creatinine Ratio 19.6 (10-20); Calcium 8.7 mg/dl (8.5-10.1); Creatinine Clr Calc Pharmacy 61.2 ml/min; Est GFR (African American) 76.1; Est GFR (Non-African American) 65.6; Potassium 3.7 mmol/L (3.5-5.1)
[2019-02-25] MEDS ORDERED: METOPROLOL SUCC 25MG EXT REL TAB PO SCH (09:00)
[2019-02-25] MEDS ORDERED: INSULIN GLARGINE SOLOSTAR 100 UNITS/ML 3 ML PEN SQ SCH (09:00)
[2019-02-25] MEDS ORDERED: ATORVASTATIN 10 MG TAB PO SCH (09:00)
[2019-02-25] MEDS ORDERED: CYANOCOBALAMIN 500 MCG TABLET (VITAMIN B-12) PO SCH (09:00)
--- NOTE | 2019-02-25 14:20 | Discharge Summary ---
Date of Service February 25, 2019 Admission HPI Per Admitting Provider History obtained from patient and records. Medical history significant for chronic diastolic heart failure (EF 55 to 59%, TTE 2018), SSS sp PPM, CAD status post stent, valvular heart disease (mild aortic stenosis, moderate mitral stenosis), hypertension, hyperlipidemia, DM 2 insulin requiring, hypothyroidism, chronic anemia (baseline hemoglobin of 11), myelodysplastic syndrome as per records. Recent confinement November 2016 for sick sinus syndrome status post PPM. Patient brought to the ER after falling from the bed after trying to get up. Denies chest pain, S OB, syncope, headache. Bruising on the left eye secondary to scratching as per patient. Appetite usual as per patient. Minimal abdominal discomfort. No diarrhea, dysuria symptoms. SBP upon arrival at the ER 70 to 80s. IVF boluses given at the ER. Patient currently having emesis episode at the ER. 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, lives with son Principal Diagnosis FALL /DEHYDRATION /HYPOTENSION /ACUTE RENAL FAILURE -RESOLVED Discharge Exam Constitutional WD/WN, vitals as above no acute distress Eyes + anicteric sclerae ENMT external ear and nose normal, oropharynx normal Neck trachea midline, no thyromegaly Respiratory normal respiratory effort, lungs clear to auscultation Cardiovascular RRR, no murmur, no edema Gastrointestinal (Abdomen) Inspection/Auscultation: abdomen normal to inspection and normal bowel sounds; abdomen not distended Percussion/Palpation: abdomen soft; abdomen nontender and no guarding Musculoskeletal no cyanosis or clubbing, extremities motor strength 5/5 Skin no rashes, warm and dry Neurologic PERRL, EOMI, accommodation nl, no face palsy, no dysarthria Psychiatric A+Ox3, euthymic affect Discharge Data Allergies Allergy/AdvReac Type Severity Reaction Status Date / Time adhesive Allergy Unknown ADHESIVE Verified 11/08/18 09:39 TAPE Consultations 02/22/19 22:21 ED Decision to Admit Stat 02/23/19 02:02 Consult Case Management - Discharge Planning Routine Ordered Studies 02/22/19 20:11 CT cervical spine wo con Stat 02/22/19 20:12 CT head/brain wo con Stat 02/22/19 21:15 CT abd pelvis IV con only Stat CT chest w con Stat Hospital Course (1) Hypotension: FALL BP has been stable Fall likely secondary to orthostasis secondary to low BP Given gentle IV fluid no complain of dizzy spell or lightheaded with ambulation PT OT eval ordered: Appreciate input from OT, patient appears to be at her baseline functional status, recommends return home with assistance Acute renal failure on CKD stage III resolved Cr 0.68 today Creatinine on admission elevated 1.5-possible secondary to dehydration/poor p.o. intake Given gentle IV fluids, creatinine improved to 1.4-> 1.3-> 0.6 (baseline creatinine 1.1-1.2) Lisinopril resumed Avoid NSAIDs, contrast studies Mild elevation of CK: Possible secondary to recent fall Ordered IV hydration, repeat CK level in a.m. Statin kept on hold CHF with diastolic dysfunction chronic diastolic heart failure (EF 55 to 59%, TTE 2019) -no evidence of volume overload ACEI resumed on discharge valvular heart disease (mild aortic stenosis, moderate mitral stenosis) History of sick sinus syndrome SSS sp permanent pacemaker placement Coronary artery disease CAD status post stent No acute issues, no chest pain shortness of breath or angina symptoms Continue outpatient meds DM 2 insulin-dependent reasonable control as of recent outpatient hemoglobin A1c of 7.17 February 2019 Anemia of chronic disease hemoglobin at baseline myelodysplastic syndrome as per records. No recent follow-up with outpatient Hematology. DVT prophylaxis. Heparin subcu DNR/DNI Mr. Kevan Palomo, contact #[phone]. Disposition: stable discharge home today with home health via [facility] Patient lives with her son, has been independent in her ADLs Active with [employer] All services notified prior to patient's discharge home Total Time Total Time Spent Total Time Spent (In Minutes): 35 mins Total Time Includes: Discharge Planning and Medication Reconciliation Discharge Plan Discharge Items Patient Disposition: Home - Home Health Services Reason For Visit: HYPOTENSION Discharge Diagnosis: Fall/hypotension/dehydration Activity: As commented below Activity Comment: As tolerated Non-emergency contact: Primary Care Provider Call non-emergency contact if: you have any medication questions Follow-up/Referrals: Liza Dobbs DO [Primary Care Provider] - 02/28/19 12:45 pm Diet: Carb Consistent or DM2 and Heart Healthy Ambulatory Orders: Basic Metabolic Panel (Routine) Timeframe: 20190228 Location: Determined by Patient Ordered By: Isatu De Creatine Kinase (Routine) Timeframe: 20190228 Location: Determined by Patient Ordered By: Isatu Hidalgo Attending Provider Instructions: Hospital follow-up with Dr. Dobbs on February 28 at 12:45 PM LAB WORK: BASIC METABOLIC PANEL /CK LEVEL ON 02/28/19 DO NOT TAKE ATORVASTATIN TILL CK LEVEL IS NORMAL DO NOT TAKE MOTRIN , ALEVE, ADVIL, IBUPROPHEN , NAPROXEN , HIGH DOSE ASPIRIN - CAN CAUSE WORSENING OF RENAL FUNCTION Pending Studies at Discharge: Yes Studies:: LAB WORK: BASIC METABOLIC PANEL/CK LEVEL ON 02/28/19 Stand-Alone Forms: Call Back Authorization, [facility], Smoking Cessation Medications and DC Order Prescriptions: Continued citalopram 10 mg Tablet 10 mg PO QAM RF: 0 pediatric multivitamin [Flintstones Multivitamin] Tablet,Chewable 1 tab PO QAM RF: 0 aspirin 81 mg Tablet,Delayed Release (Dr/Ec) 81 mg PO QAM RF: 0 metoprolol succinate 25 mg Tablet Extended Release 24 Hr 25 mg PO QAM RF: 0 Lantus Solostar U-100 Insulin 100 unit/mL (3 mL) Insulin Pen 14 unit SUBCUT QAM RF: 0 Protonix [address] For Susp In Packet 40 mg PO QAM RF: 0 levothyroxine 25 mcg Capsule 25 mcg PO QAM RF: 0 cyanocobalamin (vitamin B-12) 1,000 mcg/mL solution 1 mcg IM MONTHLY RF: 0 clopidogrel [Plavix] 75 mg Tablet 75 mg PO QAM RF: 0 cyanocobalamin (vitamin B-12) 500 mcg Tablet 500 mcg PO QAM RF: 0 ferrous sulfate 325 mg (65 mg iron) Tablet 325 mg PO BID RF: 0 albuterol sulfate 90 mcg/actuation Hfa Aerosol Inhaler 2 puff INHALATION Q4H PRN (Reason: Shortness Of Breath Or Wheezing) RF: 0 lisinopril 2.5 mg tablet 2.5 mg PO QAM RF: 0 Discontinued atorvastatin 10 mg Tablet 10 mg PO QAM RF: 0 Discharge Orders: Discharge Order (Routine); Ordered 02/25/19 Ordered By: Isatu De Admission Data Admit Date/Time: 02/23/19 00:39 Attending Provider: Isatu De Admit Provider: Alexey De La Rosa Primary Care Provider: Liza Dobbs Other Providers: Rita Pruitt at [place] ; Laure,[facility] ; Alexey De La Rosa Other Interventions: Discharge Summary Assessment (RN) Last Done: 02/25/19 10:35 DC Date/Time DO NOT enter until pt leaves facility: 02/25/19 14:05
== END 2019-02-25 14:05 | disposition home health service (06) | DRG 312 ==
LOC: ED 19:53 → 2N 02-23 00:39

== ENCOUNTER 2019-03-13 10:00 | Inpatient (IN) ==
--- NOTE | 2019-03-13 10:27 | XRay Report ---
XR chest 1V portable HISTORY: 78 years-old Female Dyspnea acute shortness of breath COMPARISON: Chest CT an chest radiograph 02/22/2019 TECHNIQUE: Portable AP view of the chest FINDINGS: Marked cardiomegaly. Calcified plaque of the thoracic aortic arch. Left subclavian pacer. Dense danilo l annular calcifications. Descending thoracic aortic tortuosity. Mild chronic interstitial coarsening of the lung bases. Mild blunting of the costophrenic angles. No pneumothorax, large pleural effusion or overt pulmonary edema. Mild bibasilar opacities are noted from comparison. Degenerative changes o f the shoulders and spine. Postoperative changes of the shoulders. IMPRESSION: 1. Cardiomegaly without overt pulmonary edema. 2. Trace pleural effusions with left greater than right bibasilar opacities, new from comparison sugg estive of atelectasis. Pneumonitis considered less likely. ACT 112: Negative or not required by law. The above report was generated using voice recognition software. It may contain grammatical, syntax o r spelling errors. Electronically signed by: Kirt Nova M.D. 03/13/2019 10:26 AM
[2019-03-13 10:37] LABS: Basophils # (auto) 0.03 K/uL (0-0.2); Basophils % (auto) 0.7 %; Eosinophils # (auto) 0.02 K/uL (0-0.5); Eosinophils % (auto) 0.4 %; Hematocrit (blood only) 33.8 % (37-47); Hemoglobin 10.7 g/dL (12.0-16.0); Immature Granulocytes # (auto) 0.01 K/uL (0.00-0.02); Immature Granulocytes % (auto) 0.2 %; Lymphocytes # (auto) 0.56 K/uL (1.2-3.4); Lymphocytes % (auto) 12.4 %; Mean Corpuscular Hemoglobin 30.1 pg (25-34); Mean Corpuscular Hgb Conc 31.7 g/dL (32-36); Mean Corpuscular Volume 94.9 fL (80-100); Mean Platelet Volume 10.2 fL (7.4-10.4); Monocytes # (auto) 0.42 K/uL (0.11-0.59); Monocytes % (auto) 9.3 %; Neutrophils # (auto) 3.46 K/uL (1.4-6.5); Platelet Count 266 K/uL (130-400); RDW Coefficient of Variation 13.7 % (11.5-14.5); RDW Standard Deviation 47.9 fL (36.4-46.3); Red Blood Count 3.56 M/uL (4.2-5.4)
[2019-03-13 10:49] LABS: INR 1.1 (0.9-1.1); Partial Thromboplastin Ratio 0.9; Partial Thromboplastin Time 24.5 Seconds (21.0-31.0); Prothrombin Time 10.8 Seconds (9.0-12.0)
[2019-03-13 10:53] LABS: Alanine Aminotransferase 11 U/L (12-78); Albumin Level 2.6 gm/dl (3.4-5.0); Aspartate Aminotransferase 12 U/L (15-37); Blood Urea Nitrogen 17 mg/dl (7-18); Calcium 8.5 mg/dl (8.5-10.1); Carbon Dioxide 28 mmol/L (21-32); Chloride 105 mmol/L (98-107); Est GFR (African American) 61.6; Est GFR (Non-African American) 53.2; Glucose 161 mg/dl (70-99); Magnesium 1.9 mg/dl (1.8-2.4); Potassium 3.9 mmol/L (3.5-5.1); Sodium 140 mmol/L (136-145)
[2019-03-13 10:58] LABS: Albumin Globulin Ratio 0.6 (0.9-2); Alkaline Phosphatase 79 U/L (45-117); Bilirubin,Total 0.8 mg/dl (0.2-1); Globulin 4.1 gm/dl (2.5-4.0); Total Protein 6.7 gm/dl (6.4-8.2); Troponin I < 0.015 ng/ml (0-0.045)
--- NOTE | 2019-03-13 12:54 | Emergency Department Note ---
Entered by Raquel Barreto acting as a scribe for Nick Marshall DO History of Present Illness General Chief complaint: Chest Pain Stated complaint: CHEST PAIN,SOB Time Seen by Provider: 03/13/19 10:06 Source: patient History of Present Illness Onset (ago): hour(s) 5 Location: chest Pain Consistency: + other (episode) Maximum Pain Intensity: 5 Quality: + other (flutter) Exacerbated By: not by other (lying flat) Associated symptoms: + denies other symptoms (coughing, fever, pain in legs, black or bloody stools) and + other (shortness of breath) The patient is a 78 year old female that is presenting to the Emergency Room with complaints of an episode of chest pain that started around 0500 this morning. The patient reports that she has some associated shortness of breath. She notes that she felt a flutter in her chest. She denies that her symptoms worsen with lying flat. She denies any coughing or a fever. She denies any pain in her legs or any recent black or bloody stools. She denies any history of an irregular heartbeat. The patient reports that she has a history of shortness of breath secondary to cardiac issues. She notes that she was in the ED 1 month ago for similar symptoms. She reports that she has a pacemaker. She states that she is unsure if she has had any valve replacements. She notes that she has had stents placed in the past following a cardiac catheterization in 2017. She states that she takes a blood thinner but is not sure which medication it is. The patient reports that she has a history of multiple strokes. She reports being compliant with her medications. She notes that she is followed by Dr. Pichardo, Cardiology, and Dr. Dobbs, PCP. Home Medications Home Medications Medication Instructions Recorded Confirmed Type Lantus Solostar U-100 Insulin 16 unit SUBCUT QAM 12/06/17 03/13/19 History aspirin 81 mg PO QAM 12/06/17 03/13/19 History metoprolol succinate 25 mg PO QAM 12/06/17 03/13/19 History pediatric multivitamin 1 tab PO QAM 12/06/17 03/13/19 History [Flintstones Multivitamin] albuterol sulfate 2 puff INHALATION Q4H PRN 11/08/18 03/13/19 History clopidogrel [Plavix] 75 mg PO QAM 11/08/18 03/13/19 History cyanocobalamin (vitamin B-12) 500 mcg PO QAM 11/08/18 03/13/19 History ferrous sulfate 325 mg PO BID 11/08/18 03/13/19 History citalopram 40 mg PO DAILY 03/13/19 03/13/19 History levothyroxine 50 mcg PO DAILY 03/13/19 03/13/19 History pantoprazole [Protonix] 40 mg PO DAILY 03/13/19 03/13/19 History Allergies Allergy/AdvReac Type Severity Reaction Status Date / Time adhesive Allergy Unknown ADHESIVE Verified 03/13/19 10:38 TAPE Past Med/Surg History Medical History Aortic root dilatation (Chronic) 4.4 cm on echo 01/2019 Asthma (Chronic) Bifascicular block CAD (coronary artery disease) (Chronic) "1995 - PTCA and stenting of RCA 07/2011 - atherectomy and stenting RCA 12/2011- AZALIA to the mid LAD 2016-Cobra stent to mid LAD 2017-AZALIA to ostial diagonal Depression (Chronic) DM type 2 (diabetes mellitus, type 2) (Chronic) Dyslipidemia (Chronic) Hypothyroidism (Chronic) HOMERO (iron deficiency anemia) (Chronic) Macular degeneration (Chronic) MDS (myelodysplastic syndrome) (Chronic) Mild aortic stenosis (Chronic) Pacemaker Sinus node dysfunction Surgical History History of angioplasty (Chronic) History of arthroscopy of knee (Chronic) History of arthroscopy of shoulder (Chronic) History of cholecystectomy (Chronic) History of gastric bypass (Chronic) History of incisional hernia repair (Chronic) History of partial hysterectomy (Chronic) History of tonsillectomy (Chronic) Family History Father Colorectal cancer Sister Lung cancer Diabetes Brother Diabetes Mother Diabetes Social History Preferred Language: Hungarian Communication Ability: Effective Visual Impairment: No Limitations Hearing Ability: Normal Rayon Tester Required: No Beliefs That Will Affect Care: None marital status: / Current Living Situation: Family Current Living Situation Comment: Pt lives with her son, [id number], daughter, son-in-law, & 2 children current occupational status: retired Other Information That Helps Us Care for You: No Feels Safe at Home: Yes Safety Concerns: Feels Safe At This Time Smoking Status: Never smoker Hx Alcohol Use: No Hx Substance Use: No Review of Systems See HPI for pertinent positives & negatives. and A total of 10 systems reviewed and were otherwise negative Physical Exam Vital Signs Vital Signs - 24 hr 03/13/19 10:03 03/13/19 10:12 03/13/19 10:14 Temperature 36.8 C Temperature Source Oral Pulse Rate 92 H 94 H Pulse Rate from SpO2 Sensor Respiratory Rate 20 28 H Respiratory Effort / Characteristics Non-Labored Spontaneous Respiratory Depth Normal Blood Pressure 118/81 126/80 Blood Pressure Mean 93 89 Blood Pressure Position Sitting Pulse Oximetry 97 98 96 Oxygen Delivery Method Room Air Room Air Room Air Sepsis Recent Fever Within 48 Hours No Sepsis Action Taken by Nursing No Action Required 03/13/19 10:31 03/13/19 11:00 03/13/19 11:01 Temperature Temperature Source Pulse Rate 92 H 87 89 Pulse Rate from SpO2 Sensor 94 H 86 88 Respiratory Rate 24 23 22 Respiratory Effort / Characteristics Respiratory Depth Blood Pressure 128/82 132/78 Blood Pressure Mean 89 92 Blood Pressure Position Pulse Oximetry 97 93 96 Oxygen Delivery Method Room Air Sepsis Recent Fever Within 48 Hours Sepsis Action Taken by Nursing 03/13/19 11:30 03/13/19 11:31 03/13/19 12:00 Temperature Temperature Source Pulse Rate 89 97 H 92 H Pulse Rate from SpO2 Sensor 95 H 95 H 91 H Respiratory Rate 21 18 20 Respiratory Effort / Characteristics Respiratory Depth Blood Pressure 121/83 135/84 Blood Pressure Mean 92 91 Blood Pressure Position Pulse Oximetry 96 95 93 Oxygen Delivery Method Room Air Sepsis Recent Fever Within 48 Hours Sepsis Action Taken by Nursing 03/13/19 12:30 03/13/19 13:00 Temperature Temperature Source Pulse Rate 91 H 93 H Pulse Rate from SpO2 Sensor 96 H 96 H Respiratory Rate 20 22 Respiratory Effort / Characteristics Respiratory Depth Blood Pressure 149/95 H 127/82 Blood Pressure Mean 110 96 Blood Pressure Position Pulse Oximetry 93 98 Oxygen Delivery Method Room Air Room Air Sepsis Recent Fever Within 48 Hours Sepsis Action Taken by Nursing GENERAL: Patient is awake, alert, and somewhat anxious appearing. EYES: The conjunctivae are clear. The pupils are round and reactive. EARS, NOSE, MOUTH AND THROAT: The nose is without any evidence of any deformity. Mucous membranes are moist.Tongue is midline NECK: The neck is nontender and supple. RESPIRATORY: Normal respiratory effort is noted. There is no evidence of wheezing rhonchi or rales to auscultation. CARDIOVASCULAR: Irregular rhythm noted to auscultation. No definite murmurs noted. GASTROINTESTINAL: The abdomen is soft. Bowel sounds are present in all quadrants. Abdomen is nontender. MUSCULOSKELETAL/EXTREMITIES: There is no evidence of gross deformity. Full range of motion is noted in the hips and shoulders. SKIN: There is no obvious evidence of any rash. There are no petechiae, pallor or cyanosis noted. NEUROLOGIC: Patient is awake alert and oriented x3. Course Course 1010:The patient was evaluated in room A10. A complete history and physical examination was performed. 1246: I updated the patient on her current lab and imaging results. She continues to experience pain in her chest. She verbalized agreement of the tr eatment plan. The patient will be evaluated for further management and care. 1247: I discussed the patients case with TANGELA Tariq, who will evaluate the patient for further management and care with Dr. Givens as the attending physician. Administered Medications Heparin Sodium/Dextrose (Heparin Sodium/Dextrose) 25,000 units in 500 mls @ 25 mls/hr IV .Q20H [facility]; Protocol Stop: 04/12/19 15:31 Last Admin: 03/13/19 16:18 Dose: 1,250 units/hr, 25 mls/hr Documented by: [id number] Cosigned by: [id number] Insulin Aspart (Novolog Flexpen) 0 units SC ACHS SYED Stop: 04/12/19 16:29 Last Admin: 03/13/19 16:18 Dose: Not Given Documented by: [id number] Cosigned by: [id number] Nitroglycerin (Nitro-Bid 2%) 0.5 inch EXT Q6 SYED Stop: 04/12/19 16:14 Last Admin: 03/13/19 16:17 Dose: 0.5 inch Documented by: [id number] Discontinued Medications Heparin Sodium/Dextrose () 1 ea IV Q15M [facility]; Protocol Stop: 04/12/19 15:31 Last Admin: 03/13/19 16:24 Dose: Not Given Documented by: [id number] Admin: 03/13/19 16:23 Dose: Not Given Documented by: [id number] Admin: 03/13/19 16:23 Dose: Not Given Documented by: [id number] Admin: 03/13/19 16:23 Dose: Not Given Documented by: [id number] Medical Decision Making Differential Diagnosis Differential diagnoses includes but is not limited to acute coronary syndrome, myocardial infarction, pericarditis, pulmonary embolus, aortic dissection, pneumonia, pneumothorax, musculoskeletal, shingles, esophageal. Medical Records Attestation: I reviewed the patient's medical records. Home Medications Current Medication List: was personally reviewed by wi Laboratory Data Attestation: I reviewed the patient's lab results. Result diagrams: 03/13/19 10:18 03/13/19 10:18 Lab Results 03/13/19 03/13/19 03/13/19 Range/Units 10:18 10:18 10:18 WBC 4.50 L (4.8-10.8) K/uL RBC 3.56 L (4.2-5.4) M/uL Hgb 10.7 L (12.0-16.0) g/dL Hct 33.8 L (37-47) % MCV 94.9 (80-100) fL MCH 30.1 (25-34) pg MCHC 31.7 L (32-36) g/dL RDW Std Deviation 47.9 H (36.4-46.3) fL RDW Coeff of Gaston 13.7 (11.5-14.5) % Plt Count 266 (130-400) K/uL MPV 10.2 (7.4-10.4) fL Immature Gran % (Auto) 0.2 % Neut % (Auto) 77.0 % Lymph % (Auto) 12.4 % Faulkner % (Auto) 9.3 % Eos % (Auto) 0.4 % Baso % (Auto) 0.7 % Immature Gran # (Auto) 0.01 (0.00-0.02) K/uL Neut # (Auto) 3.46 (1.4-6.5) K/uL Lymph # (Auto) 0.56 L (1.2-3.4) K/uL Faulkner # (Auto) 0.42 (0.11-0.59) K/uL Eos # (Auto) 0.02 (0-0.5) K/uL Baso # (Auto) 0.03 (0-0.2) K/uL PT 10.8 (9.0-12.0) Seconds INR 1.1 (0.9-1.1) APTT 24.5 (21.0-31.0) Seconds PTT Ratio 0.9 Sodium 140 (136-145) mmol/L Potassium 3.9 (3.5-5.1) mmol/L Chloride 105 (98-107) mmol/L Carbon Dioxide 28 (21-32) mmol/L Anion Gap 7.0 (3-11) BUN 17 (7-18) mg/dl Creatinine 1.00 (0.6-1.2) mg/dl Est Cr Clr Drug Dosing Not Reportable Est GFR ( Amer) 61.6 Est GFR (Non-Af Amer) 53.2 BUN/Creatinine Ratio 17.0 (10-20) Glucose 161 H (70-99) mg/dl Calcium 8.5 (8.5-10.1) mg/dl Magnesium 1.9 (1.8-2.4) mg/dl Total Bilirubin 0.8 (0.2-1) mg/dl AST 12 L (15-37) U/L ALT 11 L (12-78) U/L Alkaline Phosphatase 79 (45-117) U/L Troponin I < 0.015 (0-0.045) ng/ml Total Protein 6.7 (6.4-8.2) gm/dl Albumin 2.6 L (3.4-5.0) gm/dl Globulin 4.1 H (2.5-4.0) gm/dl Albumin/Globulin Ratio 0.6 L (0.9-2) Imaging Data Radiologist's Impression: Radiology results as stated below per my review and the radiologist's interpretation: XR chest 1V portable HISTORY: 78 years-old Female Dyspnea acute shortness of breath COMPARISON: Chest CT an chest radiograph 02/22/2019 TECHNIQUE: Portable AP view of the chest FINDINGS: Marked cardiomegaly. Calcified plaque of the thoracic aortic arch. Left subclavian pacer. Dense mitral annular calcifications. Descending thoracic aortic tortuosity. Mild chronic interstitial coarsening of the lung bases. Mild blunting of the costophrenic angles. No pneumothorax, large pleural effusion or overt pulmonary edema. Mild bibasilar opacities are noted from comparison. Degenerative changes of the shoulders and spine. Postoperative changes of the shoulders. IMPRESSION: 1. Cardiomegaly without overt pulmonary edema. 2. Trace pleural effusions with left greater than right bibasilar opacities, new from comparison suggestive of atelectasis. Pneumonitis considered less likely. ACT 112: Negative or not required by law. The above report was generated using voice recognition software. It may contain grammatical, syntax or spelling errors. Electronically signed by: Kirt Nova M.D. 03/13/2019 10:26 AM ECG Data Attestation: I personally reviewed and interpreted this ECG as follows: Indication: + chest pain Rate (beats per minute): 94 Rhythm: + atrial fibrillation ECG Intervals/blocks: + Right Bundle branch block ECG Findings: no PVCs Comparison ECG Date: from (02/22/19) Change: the following changes noted (Atrial fibrillation has replaced paced rhythm, no change in QRS morphology) Blood Pressure Blood Pressure Findings: Elevated blood pressure Blood Pressure Disposition: Referred to patients primary care provider MDM Narrative The patient is an 78-year-old female who presented to the emergency department with multiple complaints. The patient has been describing exertional dyspnea but also palpitations. The patient states that she has a history of atrial fibrillation as well as coronary artery disease. She also describes some exertional chest discomfort. I discussed the patient's laboratory and radiographic studies with her. I also discussed the limitations of the emerg ency department work-up for chest pain with her. Ultimately given her risk factors and past medical history I do feel it is prudent for the patient to be managed as an inpatient. For this reason I discussed her case with the on-call [facility] hospitalist. They have agreed to evaluate the patient in the emergency department for further management and disposition. Additional history was obtained from the patient's son. Impression & Plan Chest pain, DAVILA (dyspnea on exertion), Atrial fibrillation Discharge Plan Visit Data *Final* Discharge Date/Time: 03/13/19 14:27 Chief Complaint: Chest Pain Stated Complaint: CHEST PAIN,SOB ED Provider: Nick Marshall Discharge Problem: Chest pain, DAVILA (dyspnea on exertion), Atrial fibrillation Patient Disposition: Admitted As Inpatient Discharge Instructions Interventions: ED Discharge Assessment Last Done: 03/13/19 14:27 The scribe's documentation has been prepared under my direction and personally reviewed by me in its entirety. I confirm that the note above accurately reflects all work, treatment, procedures, and medical decision making performed by me.
[2019-03-13] MEDS ORDERED: CARBOHYDRATES FOR HYPOGLYCEMIA PO PRN (15:32)
[2019-03-13] MEDS ORDERED: GLUCAGON FOR INJ 1 MG VIAL SQ PRN (15:32)
[2019-03-13] MEDS ORDERED: GLUCOSE 40% GEL 15 GM TUBE PO PRN (15:32)
[2019-03-13] MEDS ORDERED: GLUCOSE 10 TABS/TUBE PO PRN (15:32)
[2019-03-13] MEDS ORDERED: ACETAMINOPHEN 325 MG TAB PO PRN (15:32)
[2019-03-13] MEDS ORDERED: NITROGLYCERIN SL 0.4 MG/TAB TAB SL PRN (15:32)
[2019-03-13] MEDS ORDERED: DEXTROSE 50% 50 ML SYRINGE IV PRN (15:32)
--- NOTE | 2019-03-13 15:53 | History & Physical Report ---
Date of Service March 13, 2019 Assessment & Plan (1) New onset atrial fibrillation: -Admit to telemetry -Patient presenting from home with reports of increasing exertional chest pain and shortness of breath -In the ED, EKG demonstrates rate controlled atrial fibrillation, new onset for the patient -Patient currently on metoprolol succinate 25 mg daily, no need to increase at this time given patient's heart rate is currently controlled -[id number] score 6; will start patient on IV heparin however she may not be a candidate for long-term anticoagulation given advanced age and fall risk -Pacer interrogation -Recent resting echo 02/01/2019-EF 55 to 59%, mild aortic valve stenosis, m oderate mitral stenosis, mild tricuspid regurgitation -Cardiology consult, input appreciated (2) Chest pain: (3) CAD (coronary artery disease): -Patient presenting with increasing exertional chest pain or shortness of breath, found to be in new onset rate controlled atrial fibrillation -History of coronary disease, status post multiple coronary interventions in the past with most recent being 12/2017 -Initial troponin negative, EKG does not show any acute ST changes -Continue cycle cardiac enzymes -Defer echocardiogram to cardiology -Patient reporting persistent chest pain to attending physician, will start topical nitroglycerin 0.5in -Continue aspirin, Plavix, statin, beta-marie (4) Leg edema: -Lower extremity edema, R>L (chronic per patient), noted on exam -Check BNP with next labs -BL LE venous Doppler -Recent echo report as above (5) Pacemaker: -No acute issues -Obtaining interrogation due to new onset atrial fibrillation (6) DM type 2 (diabetes mellitus, type 2): -Hgb A1c 7.5 02/2019 -Continue home dose of Lantus, add on NovoLog per protocol while hospitalized (7) MDS (myelodysplastic syndrome): -Baseline hemoglobin ~ 10-11 -Noted to be 10.7 today (8) Hypothyroidism: -Continue with thyroxine (9) Depression: -Continue citalopram (10) DVT prophylaxis: -On IV heparin drip History of Present Illness Chief Complaint: Chest pain and shortness of breath Primary Care Provider: Liza Dobbs, 78-year-old female who presents the ED for evaluation of chest pain shortness of breath. Over the past 2 weeks, patient has been having increasing episodes of exertional chest pain and shortness of breath. Patient lives in an apartment attached to her son's house and when she went to walk over this morning, she reports severe left-sided chest pain and shortness of breath. She describes the pain as a sharp sensation. No associated diaphoresis, nausea, syncopal event. She reports some mild lightheadedness and dizziness. Patient was going to take sublingual nitroglycerin however reports she cannot find it. She is unsure of when the pain resolved however she reports she is currently chest pain-free. She reports her symptoms as similar to when she is required cardiac stenting in the past. Patient reports she weighs herself routinely and weight has been st able. She has chronic right lower extremity edema which is unchanged from baseline. No abdominal pain, vomiting, diarrhea. Denies any recent illnesses, fevers, chills. No urinary symptoms. In the ED, patient is found to be in new onset atrial fibrillation, rate controlled. Initial troponin is negative and EKG does not show any acute ST changes. Vital signs are stable. Labs unremarkable. Allergies Allergy/AdvReac Type Severity Reaction Status Date / Time adhesive Allergy Unknown ADHESIVE Verified 03/13/19 10:38 TAPE Home Medications Home Medications Medication Instructions Recorded Confirmed Type Lantus Solostar U-100 Insulin 16 unit SUBCUT QAM 12/06/17 03/13/19 History aspirin 81 mg PO QAM 12/06/17 03/13/19 History metoprolol succinate 25 mg PO QAM 12/06/17 03/13/19 History pediatric multivitamin 1 tab PO QAM 12/06/17 03/13/19 History [Flintstones Multivitamin] albuterol sulfate 2 puff INHALATION Q4H PRN 11/08/18 03/13/19 History clopidogrel [Plavix] 75 mg PO QAM 11/08/18 03/13/19 History cyanocobalamin (vitamin B-12) 500 mcg PO QAM 11/08/18 03/13/19 History ferrous sulfate 325 mg PO BID 11/08/18 03/13/19 History citalopram 40 mg PO DAILY 03/13/19 03/13/19 History levothyroxine 50 mcg PO DAILY 03/13/19 03/13/19 History pantoprazole [Protonix] 40 mg PO DAILY 03/13/19 03/13/19 History Past Med/Surg History Medical History Aortic root dilatation (Chronic) 4.4 cm on echo 01/2019 Asthma (Chronic) Bifascicular block CAD (coronary artery disease) (Chronic) "1995 - PTCA and stenting of RCA 07/2011 - atherectomy and stenting RCA 12/2011- AZALIA to the mid LAD 2016-Cobra stent to mid LAD 2017-AZALIA to ostial diagonal Depression (Chronic) DM type 2 (diabetes mellitus, type 2) (Chronic) Dyslipidemia (Chronic) Hypothyroidism (Chronic) HOMERO (iron deficiency anemia) (Chronic) Macular degeneration (Chronic) MDS (myelodysplastic syndrome) (Chronic) Mild aortic stenosis (Chronic) Pacemaker Sinus node dysfunction Surgical History History of angioplasty (Chronic) History of arthroscopy of knee (Chronic) History of arthroscopy of shoulder (Chronic) History of cholecystectomy (Chronic) History of gastric bypass (Chronic) History of incisional hernia repair (Chronic) History of partial hysterectomy (Chronic) History of tonsillectomy (Chronic) Family History Father Colorectal cancer Sister Lung cancer Diabetes Brother Diabetes Mother Diabetes Social History Preferred Language: Macedonian Communication Ability: Effective Visual Impairment: No Limitations Hearing Ability: Normal 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 Beliefs That Will Affect Care: None marital status: / Current Living Situation: Family Current Living Situation Comment: Pt lives with her son, [id number], daughter, son-in-law, & 2 children current occupational status: retired Other Information That Helps Us Care for You: No Feels Safe at Home: Yes Safety Concerns: Feels Safe At This Time Smoking Status: Never smoker Hx Alcohol Use: No Hx Substance Use: No Review of Systems Review of Systems: ROS per HPI, all other systems reviewed and negative Physical Exam Constitutional: WD/WN, vitals as above Eyes: PERRL, conjunctivae normal, anicteric sclerae ENMT: external ear and nose normal, oropharynx normal Respiratory: normal respiratory effort, lungs clear to auscultation Cardiovascular: Rate/Rhythm: regular rate and + irregularly irregular Vessels: normal peripheral pulses Extremities: + edema (+1-2 edema BLE, R>L) Gastrointestinal (Abdomen): normal bowel sounds, soft, nontender, no hepatosplenomegaly Musculoskeletal: no cyanosis or clubbing, extremities motor strength 5/5 Skin: no rashes, warm and dry Neurologic: PERRL, EOMI, accommodation nl, no face palsy, no dysarthria Psychiatric: A+Ox3, euthymic affect Cognition: + remote memory not intact Insight: + limited insight Results & Data Vital Signs (Past 12 Hours) Vital Signs Temp Pulse Pulse Resp BP BP Pulse Ox 03/13/19 14:46 37.0 C 80 18 146/79 H 96 03/13/19 14:00 85 19 146/89 H 97 03/13/19 13:30 94 H 17 147/90 H 97 03/13/19 13:00 93 H 22 127/82 98 03/13/19 12:30 91 H 20 149/95 H 93 03/13/19 12:00 92 H 20 135/84 93 03/13/19 11:31 97 H 18 95 03/13/19 11:30 89 21 121/83 96 03/13/19 11:01 89 22 96 03/13/19 11:00 87 23 132/78 93 03/13/19 10:31 92 H 24 128/82 97 03/13/19 10:14 96 03/13/19 10:12 94 H 28 H 126/80 98 03/13/19 10:03 36.8 C 92 H 20 118/81 97 Laboratory Results Short CBC 03/13/19 Range/Units 10:18 WBC 4.50 L (4.8-10.8) K/uL Hgb 10.7 L (12.0-16.0) g/dL Hct 33.8 L (37-47) % Plt Count 266 (130-400) K/uL BMP 03/13/19 10:18 Sodium 140 Potassium 3.9 Chloride 105 Carbon Dioxide 28 BUN 17 Creatinine 1.00 Glucose 161 H Calcium 8.5 Cardiac Enzymes 03/13/19 Range/Units 10:18 Troponin I < 0.015 (0-0.045) ng/ml Liver Function 03/13/19 Range/Units 10:18 Total Bilirubin 0.8 (0.2-1) mg/dl AST 12 L (15-37) U/L ALT 11 L (12-78) U/L Alkaline Phosphatase 79 (45-117) U/L Albumin 2.6 L (3.4-5.0) gm/dl Diagnostic Findings CXR IMPRESSION: 1. Cardiomegaly without overt pulmonary edema. 2. Trace pleural effusions with left greater than right bibasilar opacities, new from comparison suggestive of atelectasis. Pneumonitis considered less likely. Code Status & VTE Plan Code Status Patient is a DNR as per my discussion with her. VTE Prophylaxis Plan VTE Prophylaxis will be ordered: Yes Supervising Physician Co-Signing Physician Notes HISTORY: Record reviewed. Patient interviewed and examined in ED. Care coordinated with TANGELA Tariq. Please refer to her documentation for complete history. Briefly, 78 YO female with history of ischemic heart disease, pacemaker, diabetes mellitus type 2, myelodysplastic syndrome, and other problems. Presented to ED with exertional chest pressure and dyspnea x 2 weeks. EXAM: General- no distress Lungs- clear to auscultation; no respiratory distress Cardiovascular- RRR; II/ systolic murmur LSB; no gallop appreciated; + JVD; 2+ pretibial edema RLE, 1 pretibial edema LLE Abdomen- + bowel sounds, soft, nontender Extremities- no cyanosis; no calf tenderness Neuro- alert, oriented Skin- warm & dry DATA: Hgb 10.7, WBC 4500, plts 266,000. Random glucose 161. Troponin < 0.015. Other lab studies as noted. Chest x-ray reviewed and demonstrated cardiomegaly, vascular congestion. Small pleural effusions and bibasilar opacities consistent with atelectasis noted by Radiology. EKG performed at 1010 reviewed and demonstrated AF at 90 / minute, intermittent ventricular paced beats, RBBB, left anterior fascicular block. ASSESSMENT AND PLAN: Exertional chest pain + SOB. Known ischemic heart disease, s/p PCI. Atrial fibrillation, apparently new onset. Continue dual antiplatelet therapy with aspirin and clopidogrel pending Cardio logy input. IV heparin for new onset AF. Continue beta marie and statin. Add topical nitrates. Further evaluation and management per Cardiology. Chest x-ray suggests mild CHF. Recent echo showed LVEF 55-59%. Management per Cardiology. Bilateral lower extremity edema, R > L. Patient states that RLE edema is chronic, but will check venous duplex to rule out DVT. Please refer to SHANAE Mills's documentation for discussion of other issues.
[2019-03-13 16:09] LABS: Appearance Urine Cloudy (Clear); Blood Urine Negative (Negative); Color Urine Dark Yellow; Epithelial Cell Urine Auto >30 /lpf (0-5); Glucose Urine UA Negative (Negative); Ketones Urine 1+ (Negative); Leukocyte Esterase Urine 2+ (Negative); Nitrite Urine Negative (Negative); Protein Urine 1+ (Negative); Specific Gravity Urine 1.025 (1.000-1.030); Urobilinogen Urine Negative (Negative)
[2019-03-13] MEDS: NITROGLYCERIN 2% OINTMENT 30GM TUBE EXT SCH ×2 (16:17→23:44)
[2019-03-13] MEDS: HEPARIN SODIUM/DEXTROSE 25,000 UNITS/500 ML BAG IV SCH (16:18)
[2019-03-13] MEDS: INSULIN ASPART 100 UNITS/ML 3 ML PEN SC SCH ×2 (16:18→20:43)
[2019-03-13 16:21] LABS: Bilirubin Urine Negative (Negative); Ictotest Urine Negative (Negative)
[2019-03-13] MEDS: Heparin IV Standard *NO* Bolus IV SCH ×2 (16:23→16:24)
[2019-03-13 16:39] LABS: Bacteria Urine Automated 1+ (Negative)
[2019-03-13 16:40] LABS: Mucus Urine Present (None Prsent)
[2019-03-13 16:54] LABS: NT Pro B Type Natriuretic Pept 3606 pg/ml (0-1800); Troponin I < 0.015 ng/ml (0-0.045)
[2019-03-13] MEDS ORDERED: FUROSEMIDE 40 MG in SYRINGE 0 ML IV ONE (19:14)
[2019-03-13] MEDS: FERROUS SULFATE 325 MG TAB PO SCH (19:44)
[2019-03-13 22:51] LABS: Partial Thromboplastin Ratio 1.5; Partial Thromboplastin Time 39.9 Seconds (21.0-31.0)
[2019-03-14] MEDS ORDERED: HEPARIN IV BOLUS 6,000 UNITS in SYRINGE 0 ML IV ONE (00:15)
[2019-03-14] MEDS: LEVOTHYROXINE SODIUM 50 MCG TABLET PO SCH (06:03)
[2019-03-14] MEDS: NITROGLYCERIN 2% OINTMENT 30GM TUBE EXT SCH (06:05)
[2019-03-14 06:41] LABS: Hematocrit (blood only) 32.6 % (37-47); Hemoglobin 10.5 g/dL (12.0-16.0); Mean Corpuscular Hemoglobin 29.8 pg (25-34); Mean Corpuscular Hgb Conc 32.2 g/dL (32-36); Mean Corpuscular Volume 92.6 fL (80-100); Platelet Count 269 K/uL (130-400); RDW Coefficient of Variation 13.7 % (11.5-14.5); RDW Standard Deviation 46.3 fL (36.4-46.3); Red Blood Count 3.52 M/uL (4.2-5.4); White Blood Count 4.36 K/uL (4.8-10.8)
[2019-03-14 07:00] LABS: Partial Thromboplastin Ratio > 5.1
[2019-03-14 07:04] LABS: Partial Thromboplastin Time > 139.0 Seconds (21.0-31.0)
[2019-03-14 07:07] LABS: BUN Creatinine Ratio 13.9 (10-20); Calcium 8.6 mg/dl (8.5-10.1); Creatinine Clr Calc Pharmacy 52.8 ml/min; Est GFR (African American) 66.4; Est GFR (Non-African American) 57.3; Potassium 3.5 mmol/L (3.5-5.1)
[2019-03-14 07:52] LABS: Partial Thromboplastin Ratio 4.8
[2019-03-14 07:55] LABS: Partial Thromboplastin Time 129.2 Seconds (21.0-31.0)
[2019-03-14] MEDS: PANTOprazole 40 MG TAB PO SCH ×2 (08:20→12:31)
[2019-03-14] MEDS: CLOPIDOGREL BISULFATE 75 MG TAB PO SCH (08:20)
[2019-03-14] MEDS: METOPROLOL SUCC 25MG EXT REL TAB PO SCH (08:20)
[2019-03-14] MEDS: CITALOPRAM 40 MG TAB PO SCH (08:21)
[2019-03-14] MEDS: FERROUS SULFATE 325 MG TAB PO SCH ×2 (08:21→21:10)
[2019-03-14] MEDS: ASPIRIN 81 MG ECTAB PO SCH (08:21)
[2019-03-14] MEDS: FLINTSTONES COMPLETE CHEWABLE TAB PO SCH (08:21)
[2019-03-14] MEDS: CYANOCOBALAMIN 500 MCG TABLET (VITAMIN B-12) PO SCH (08:21)
[2019-03-14] MEDS: INSULIN GLARGINE SOLOSTAR 100 UNITS/ML 3 ML PEN SQ SCH (08:22)
[2019-03-14] MEDS: INSULIN ASPART 100 UNITS/ML 3 ML PEN SC SCH ×4 (08:22→21:08)
--- NOTE | 2019-03-14 09:02 | Cardiology Consultation ---
Date of Consultation March 14, 2019 Assessment & Plan (1) New onset atrial fibrillation: (2) Pericardial effusion: The patient has a longstanding history of chronic ischemic heart disease with multiple past percutaneous coronary interventions. She also has a history of bradycardia prompting permanent pacemaker implantation in 2017. Yesterday she presented with several days of shortness of breath culminating in chest discomfort. Interrogation of her device performed with the assistance of the [employer] payroll representative this morning reveals that she has been in atrial fibrillation for just over 2 weeks with onset having been on 02/25/2019. An echocardiogram performed today reveals normal LV wall motion and normal LVEF with findings of moderate mitral stenosis and mild aortic valve stenosis unchanged compared to last month. She however does have a moderate circumferential pericardial effusion that was not present at the time from recent outpatient echocardiogram performed in January,. She had been seen in the emergency room on 02/22/[address] performed at that time included incidental findings of a small circumferential pericardial effusion, this appears to perhaps increased in size since that CT. Her EKG is without ischemic changes. She is absolutely chest pain-free at present. Troponin has been negative on a serial basis x3, her inflammatory markers however are elevated with a C-reactive protein of 5.95, and an erythrocyte sedimentation rate of 69 mm/h. Atrial fibrillation: Continue prior to hospital treatment with metoprolol succinate 25 mg daily. In terms of stroke prophylaxis, we will cautiously continue heparin. I believe she needs ongoing dual antiplatelet therapy with aspirin and clopidogrel. As noted, [id number] is 6 predicting high risk of cardioembolic stroke. I think we need to be cautious regarding her anticoagulation due to her baseline relative mild anemia, and the risk of hemorrhagic conversion for pericardial effusion, but at this time, will start low-dose Coumadin, 2 mg today. Regarding her pericardial effusion, will start colchicine, omeprazole for GI prophylaxis, and low-dose prednisone. She is not a candidate for high-dose aspirin or other nonsteroidal anti-inflammatory medication. Patient should remain in the hospital for further evaluation. History of Present Illness Attending Physician: Isatu De MD History of Present Illness Maritza Palomo is an 78 year old female seen in cardiology consultation per the request of TANGELA Tariq of the [facility] service for the evaluation of chest discomfort. The patient's primary tafe teacher is Dr. Pichardo of our practice. She has a complex history of ischemic heart disease with multiple percutaneous coronary interventions with most recent drug-eluting stent having been performed in December 2017 at [facility]. She is therefore on chronic dual antiplatelet therapy. She describes progressive worsening shortness of breath while walking in her home for the last week. She also had chest discomfort for 2 days prior to presented to the hospital. Yesterday she ultimately presented to the hospital emergency department with midline chest discomfort that she felt was characteristic of her previous angina. She believes that it resolved on its own without being helped by any significant intervention that have been performed here. She notes recent cold symptoms several days ago but no fevers or chills, no GI upset. Evaluation performed yesterday included an EKG at 10:10 AM on 03/13/2019 that re vealed atrial fibrillation at 94 bpm with right bundle branch block, left anterior fascicular block (bifascicular block) see pattern. Compared to a prior EKG having been performed on 02/22/2019, atrial fibrillation had replaced her atrial paced rhythm and the rate had increased by 32 bpm. The patient has been admitted for observation. Ongoing atrial fibrillation is noted on telemetry in the range of 90 to 100 bpm. Heparin was initiated. Troponin was negative x3 thus far. Cardiac History: 1. Atherosclerotic coronary artery disease status post prior coronary interv entions including PTCA and stenting of the right coronary artery in 1995, repeat coronary interventions in July of 2011 receiving atherectomy and stenting of the right coronary artery, and separate procedure with a drug- eluting stent to the mid left anterior descending, December 2011. 2. Stable class I-II angina pectoris. 3. Preserved LV systolic function with chronic diastolic dysfunction. 4. Mild aortic stenosis with mild aortic root dilatation/ mild mitral stenosis 5. Hypertension. 6. Hyperlipidemia. 7. Myelodysplastic syndrome with chronic iron deficiency anemia 8. Cardiac catheterization at [facility] November 20, 2016 high-grade mid left anterior descending stenosis, technically difficult procedure. S/P PCI with Cobra stent to the mid L[place] stenosis with occlusion of small diseased diagonal branch[place] [facility] [place] 9. Postprocedural sinus arrest with extended pause and subsequent dual-chamber pacemaker insertion November 21, [address] BOYCE [id number] 10.Status post coronary angiography and subsequent coronary intervention on 12/31/2017, receiving a drug-eluting stent to 80% narrowing of an ostial diagonal lesion, for persistent cardiac symptoms, abnormal stress testing. Allergies Allergy/AdvReac Type Severity Reaction Status Date / Time adhesive Allergy Unknown ADHESIVE Verified 03/13/19 10:38 TAPE Home Medications Home Medications Medication Instructions Recorded Confirmed Type Lantus Solostar U-100 Insulin 16 unit SUBCUT QAM 12/06/17 03/13/19 History aspirin 81 mg PO QAM 12/06/17 03/13/19 History metoprolol succinate 25 mg PO QAM 12/06/17 03/13/19 History pediatric multivitamin 1 tab PO QAM 12/06/17 03/13/19 History [Flintstones Multivitamin] albuterol sulfate 2 puff INHALATION Q4H PRN 11/08/18 03/13/19 History clopidogrel [Plavix] 75 mg PO QAM 11/08/18 03/13/19 History cyanocobalamin (vitamin B-12) 500 mcg PO QAM 11/08/18 03/13/19 History ferrous sulfate 325 mg PO BID 11/08/18 03/13/19 History citalopram 40 mg PO DAILY 03/13/19 03/13/19 History levothyroxine 50 mcg PO DAILY 03/13/19 03/13/19 History pantoprazole [Protonix] 40 mg PO DAILY 03/13/19 03/13/19 History Patient History Medical History Aortic root dilatation (Chronic) 4.4 cm on echo 01/2019 Asthma (Chronic) Bifascicular block CAD (coronary artery disease) (Chronic) "1995 - PTCA and stenting of RCA 07/2011 - atherectomy and stenting RCA 12/2011- AZALIA to the mid LAD 2016-Cobra stent to mid LAD 2017-AZALIA to ostial diagonal Depression (Chronic) DM type 2 (diabetes mellitus, type 2) (Chronic) Dyslipidemia (Chronic) Hypothyroidism (Chronic) HOMERO (iron deficiency anemia) (Chronic) Macular degeneration (Chronic) MDS (myelodysplastic syndrome) (Chronic) Mild aortic stenosis (Chronic) Pacemaker Sinus node dysfunction Surgical History History of angioplasty (Chronic) History of arthroscopy of knee (Chronic) History of arthroscopy of shoulder (Chronic) History of cholecystectomy (Chronic) History of gastric bypass (Chronic) History of incisional hernia repair (Chronic) History of partial hysterectomy (Chronic) History of tonsillectomy (Chronic) Family History Father Colorectal cancer Sister Lung cancer Diabetes Brother Diabetes Mother Diabetes Social History Preferred Language: Maltese Communication Ability: Effective Visual Impairment: No Limitations Hearing Ability: Normal Pie Filler Required: No Beliefs That Will Affect Care: None marital status: / Current Living Situation: Family Current Living Situation Comment: Pt lives with her son, [id number], daughter, son-in-law, & 2 children current occupational status: retired Other Information That Helps Us Care for You: No Feels Safe at Home: Yes Safety Concerns: Feels Safe At This Time Smoking Status: Never smoker Hx Alcohol Use: No Hx Substance Use: No Review of Systems Review of Systems: All systems reviewed & are unremarkable except as noted in HPI & below Physical Exam Physical Exam: Temp Pulse Resp BP Pulse Ox 36.9 C 72 18 122/63 98 03/14/19 07:46 03/14/19 07:46 03/14/19 07:46 03/14/19 07:46 03/14/19 07:46 Constitutional: WD/WN, vitals as above Respiratory: normal respiratory effort, lungs clear to auscultation Cardiovascular: Rate/Rhythm: + irregularly irregular Heart Sounds: + murmur (1/6 systolic murmur) Vessels: no JVD Extremities: no edema Gastrointestinal (Abdomen): normal bowel sounds, soft, nontender, no hepatosplenomegaly Neurologic: PERRL, EOMI, accommodation nl, no face palsy, no dysarthria Results & Data Vital Signs (Past 12 Hours) Vital Signs Temp Pulse Pulse Resp BP BP Pulse Ox 03/14/19 07:46 36.9 C 72 18 122/63 98 03/14/19 06:05 91 H 123/76 03/14/19 04:10 37.0 C 89 18 101/63 95 03/13/19 23:35 36.8 C 91 H 20 118/71 91 03/13/19 22:21 85 Laboratory Results Cardiac Enzymes 03/13/19 03/13/19 Range/Units 15:47 22:18 Troponin I < 0.015 < 0.015 (0-0.045) ng/ml Coagulation 03/13/19 03/14/19 03/14/19 Range/Units 22:18 06:22 07:19 APTT 39.9 H > 139.0 H* 129.2 H* (21.0-31.0) Seconds Lipids 03/14/19 Range/Units 06:22 Triglycerides 73 (0-150) mg/dl Cholesterol 134 (0-200) mg/dl HDL Cholesterol 51 mg/dl Cholesterol/HDL Ratio 3 CBC 03/14/19 Range/Units 06:22 WBC 4.36 L (4.8-10.8) K/uL RBC 3.52 L (4.2-5.4) M/uL Hgb 10.5 L (12.0-16.0) g/dL Hct 32.6 L (37-47) % Plt Count 269 (130-400) K/uL Comprehensive Metabolic Panel 03/14/19 Range/Units 06:22 Sodium 138 (136-145) mmol/L Potassium 3.5 (3.5-5.1) mmol/L Chloride 105 (98-107) mmol/L Carbon Dioxide 25 (21-32) mmol/L BUN 13 (7-18) mg/dl Creatinine 0.94 (0.6-1.2) mg/dl Glucose 146 H (70-99) mg/dl Calcium 8.6 (8.5-10.1) mg/dl Intake and Output 03/13/19 03/14/19 03/14/19 22:59 06:59 14:59 Intake Total 70.833 / 285.000 214.167 / 285.000 230.95 / 230.95 Output Total 75 / 175 100 / 175 Balance -4.167 / 110.000 114.167 / 110.000 230.95 / 230.95 Intake: IV 70.833 / 185.000 114.167 / 185.000 230.95 / 230.95 HEPARIN SODIUM/DEXTROSE 25,000 70.833 / 185.000 114.167 / 185.000 230.95 / 230.95 units In 500 ml @ 1,550 UNITS/ HR 31 mls/hr IV .[id number] [facility] Rx# :[id number] Oral 100 / 100 Output: Urine 75 / 175 100 / 175 Other: # Unmeasured Voids 1 Weight 84.7 kg
--- NOTE | 2019-03-14 09:24 | Ultrasound Report ---
ULTRASOUND BILATERAL LOWER EXTREMITY VENOUS CLINICAL HISTORY: Lower extremity edema. COMPARISON STUDY: Left lower extremity venous ultrasound dated 02/28/2010. TECHNIQUE: Real-time, grayscale, and color Doppler sonography of the deep veins of the right and left lower extremity was performed from the inguinal crease to the calf. Compression and augmentation wer e utilized. FINDINGS: There is no sonographic evidence of deep venous thrombosis identified in the right or left lower extremity. The common femoral, superficial femoral, and popliteal veins are patent and normally compressible bilaterally. The greater saphenous vein and the profunda femoris vein at the junction w ith the common femoral vein are clear in both legs. The visualized calf veins are patent bilaterally. IMPRESSION: There is no sonographic evidence of deep venous thrombosis identified in the right or lef t lower extremity. ACT 112: Negative or not required by law. Electronically signed by: Luis Fernando Murdock M.D. 03/14/2019 9:23 AM
[2019-03-14] MEDS: COLCHICINE 0.6 MG TAB PO SCH ×2 (10:27→21:09)
[2019-03-14] MEDS ORDERED: methylPREDNISolone 40 MG in SYRINGE 0 ML IV ONE (12:00)
[2019-03-14] MEDS: HEPARIN SODIUM/DEXTROSE 25,000 UNITS/500 ML BAG IV SCH (15:06)
[2019-03-14 15:30] LABS: Partial Thromboplastin Ratio 1.7
[2019-03-14 15:34] LABS: Partial Thromboplastin Time 46.8 Seconds (21.0-31.0)
[2019-03-14] MEDS ORDERED: WARFARIN SOD 2 MG TAB PO SCH (16:00)
--- NOTE | 2019-03-14 18:20 | Hospitalist Progress Note ---
Date of Service March 14, 2019 Assessment & Plan (1) New onset atrial fibrillation: - -Patient presenting from home with reports of increasing exertional chest pain and shortness of breath -In the ED, EKG demonstrates rate controlled atrial fibrillation, new onset for the patient - on metoprolol succinate 25 mg daily, HR remains controlled -[id number] score 6;low dose coumadin 2 mg daily ordered , on IV heparin bridge monitor closely for increased risk of Hemorrhagic conversion of pericardial effusion -Pacer interrogation: reveals that she has been in atrial fibrillation for just over 2 weeks with onset having been on 02/25/2019. -Recent resting echo 02/01/2019-EF 55 to 59%, mild aortic valve stenosis, moderate mitral stenosis, mild tricuspid regurgitation -Cardiology consult, input appreciated PERICARDIAL EFFUSION : An echocardiogram: normal LV wall motion and normal LVEF with findings of moderate mitral stenosis and mild aortic valve stenosis unchanged compared to last month. per cardiology started colchicine, omeprazole for GI prophylaxis, and low-dose prednisone. She is not a candidate for high-dose aspirin or other nonsteroidal anti- inflammatory medication. (2) Chest pain: (3) CAD (coronary artery disease): no complain of SOB or angina symptom -Patient presented with increasing exertional chest pain or shortness of breath, found to be in new onset rate controlled atrial fibrillation -History of coronary disease, status post multiple coronary interventions in the past with most recent being 12/2017 -serial troponin negative appreciate cardiology eval; cont cardiac meds (4) Leg edema: -Lower extremity edema, R>L (chronic per patient), noted on exam - -BL LE venous Doppler-negative for DVT -Recent echo report as above (5) DM type 2 (diabetes mellitus, type 2): -Hgb A1c 7.5 02/2019 -Continue home dose of Lantus, add on NovoLog per protocol while hospitalized (6) MDS (myelodysplastic syndrome): (7) Hypothyroidism: -Continue with thyroxine (8) Depression: -Continue citalopram (9) DVT prophylaxis: - IV heparin Subjective no complaint of shortness of breath, no chest pain or discomfort, no dyspnea on exertion no palpitation or dizzy spell Physical Exam Constitutional: WD/WN, vitals as above Eyes: PERRL, conjunctivae normal, anicteric sclerae ENMT: external ear and nose normal, oropharynx normal Respiratory: normal respiratory effort, lungs clear to auscultation Cardiovascular: Rate/Rhythm: regular rate and + irregularly irregular Vessels: normal peripheral pulses Extremities: + edema (+1-2 edema BLE, R>L) Gastrointestinal (Abdomen): normal bowel sounds, soft, nontender, no hepatosplenomegaly Musculoskeletal: no cyanosis or clubbing, extremities motor strength 5/5 Skin: no rashes, warm and dry Neurologic: PERRL, EOMI, accommodation nl, no face palsy, no dysarthria Psychiatric: A+Ox3, euthymic affect Cognition: + remote memory not intact Insight: + limited insight Results & Data Vital Signs (Past 12 Hours) Vital Signs Temp Pulse Resp BP Pulse Ox 03/14/19 16:00 36.7 C 84 20 109/62 95 03/14/19 11:31 36.8 C 86 18 99/63 L 98 03/14/19 07:46 36.9 C 72 18 122/63 98 (1) CAD (coronary artery disease) Coronary Disease-Associated Artery/Lesion type: [place] artery [place] vs. transplanted heart: [place] heart Associated angina: without angina Qualified Code(s): I25.10 - Atherosclerotic heart disease of [place] coronary artery without angina pectoris
[2019-03-15] MEDS: LEVOTHYROXINE SODIUM 50 MCG TABLET PO SCH (06:22)
[2019-03-15 07:06] LABS: INR 1.1 (0.9-1.1); Prothrombin Time 11.1 Seconds (9.0-12.0)
[2019-03-15] MEDS: HEPARIN SODIUM/DEXTROSE 25,000 UNITS/500 ML BAG IV SCH (07:47)
[2019-03-15 08:16] LABS: Partial Thromboplastin Ratio 2.5
[2019-03-15 08:18] LABS: Partial Thromboplastin Time 66.6 Seconds (21.0-31.0)
[2019-03-15] MEDS: PANTOprazole 40 MG TAB PO SCH ×2 (08:23→08:25)
[2019-03-15] MEDS: CYANOCOBALAMIN 500 MCG TABLET (VITAMIN B-12) PO SCH (08:24)
[2019-03-15] MEDS: CLOPIDOGREL BISULFATE 75 MG TAB PO SCH (08:24)
[2019-03-15] MEDS: METOPROLOL SUCC 25MG EXT REL TAB PO SCH ×2 (08:24→20:22)
[2019-03-15] MEDS: FLINTSTONES COMPLETE CHEWABLE TAB PO SCH (08:24)
[2019-03-15] MEDS: CITALOPRAM 40 MG TAB PO SCH (08:24)
[2019-03-15] MEDS: ASPIRIN 81 MG ECTAB PO SCH (08:24)
[2019-03-15] MEDS: COLCHICINE 0.6 MG TAB PO SCH ×2 (08:24→20:23)
[2019-03-15] MEDS: FERROUS SULFATE 325 MG TAB PO SCH ×2 (08:26→20:23)
[2019-03-15] MEDS: INSULIN GLARGINE SOLOSTAR 100 UNITS/ML 3 ML PEN SQ SCH (08:29)
[2019-03-15] MEDS: INSULIN ASPART 100 UNITS/ML 3 ML PEN SC SCH ×4 (08:29→20:22)
[2019-03-15] MEDS: predniSONE 20 MG TAB PO SCH (10:15)
--- NOTE | 2019-03-15 10:39 | Cardiology Progress Note ---
Date of Service March 15, 2019 Assessment & Plan (1) New onset atrial fibrillation: Patient presented with chest discomfort, generalized fatigue, and exertional shortness of breath. She was found to have new onset of atrial fibrillation (new diagnosis) with having been in atrial fibrillation since 02/25/2019 per pacemaker interrogation performed this hospital stay. Rate control: Increase prior to hospital dose of metoprolol succinate 25 mg daily to metoprolol succinate 25 twice daily. Stroke prophylaxis: Continue heparin bridge with caution given baseline mild anemia and findings of pericardial effusion. Continue low-dose Coumadin initiation, received 2 mg on 03/14/2019, will in crease to 2.5 mg today 03/15/2019, goal INR 2-3. Coumadin is the anticoagulant of choice for her given her coexistent history of mitral stenosis. (2) Pericardial effusion: Although patient presented with chest discomfort, she does not have EKG changes to suggest pericarditis, or ESR and CRP tests are mildly elevated. She is not a candidate for nonsteroidal anti-inflammatory therapy, or high-dose aspirin. Colchicine has been started at 0.6 mg p.o. twice daily, with plan to reduce this to 0.6 mg once per day at discharge to complete a 3-month course. Received a dose of IV Solu-Medrol, 40 mg yesterday 03/14/2019. Recommend a long slow tapering dose of oral prednisone to start with 20 mg x 7 days, and reduce to 2.5 mg over an interval of 6 weeks. Protonix started as inpatient for GI prophylaxis, consider Protonix, omeprazole, or famotidine to be continued at discharge for GI prophylaxis while on prednisone plus Coumadin together. (3) CAD (coronary artery disease): Patient with history of multiple percutaneous coronary interventions as outlined in my initial consult note dated 03/14/2019. Her most recent PCI was performed for an 80% ostial diagonal 1 stenosis which was previously jailed when her LAD was stented. This diagonal stenosis was treated with a 2.25 x 16 mm drug-eluting stent on 12/31/2017. She is therefore completed over a year of dual antiplatelet therapy. Given her complex coronary anatomy with multiple stents, would recommend ongoing chronic clopidogrel therapy. We will discontinue aspirin, and proceed with clopidogrel plus Coumadin given her high risk of bleeding and high risk of thrombotic complication from a coronary standpoint and atrial fibrillation standpoint. ([id number] score of 6). (4) Mild aortic stenosis: Stable on echo this admission (5) Mitral stenosis: Moderate MS, stable compared to 01/2019 echo. (6) Pacemaker: History of pause post cardiac catheterization in 2017 in setting of chronic bifascicular block prompting insertion of dual-chamber permanent pacemaker 2017. Appropriate function noted on interrogation this admission. DVT prophylaxis: Patient is on full dose anticoagulation with heparin bridge to Coumadin. At this time the patient is on aspirin, clopidogrel, heparin infusion, Coumadin, prednisone. She is felt to be at high risk for both bleeding and thrombotic complications. A repeat CBC has been requested for 03/16/2019. She has a baseline mild anemia with hemoglobin in the range of 10 g/dL. Coumadin is the agent of choice for her in terms of stroke prophylaxis due to her mitral stenosis. At this time, we will discontinue her aspirin, and continue with heparin bridge to Coumadin. Subjective Chief complaint: Follow-up chest discomfort, easy fatigability Subjective: Patient notes ongoing fatigue. No chest discomfort overnight last night or thus far this morning. Telemetry reveals ongoing atrial fibrillation with rates in the range of 85 to 100 bpm. Review of Systems Review of Systems: All systems reviewed & are unremarkable except as noted in HPI & below Cardiovascular: no chest pain, no palpitations and no edema Additional Com ments: Notes generalized tiredness Physical Exam Physical Exam: Temp Pulse Resp BP Pulse Ox 36.8 C 90 22 132/63 96 03/15/19 08:00 03/15/19 08:00 03/15/19 08:00 03/15/19 08:00 03/15/19 08:00 Constitutional: Chronically ill in appearance, without acute distress Respiratory: normal respiratory effort, lungs clear to auscultation Cardiovascular: Rate/Rhythm: regular rhythm Heart Sounds: + murmur (I/ systolic and diastolic murmurs) Vessels: no JVD Gastrointestinal (Abdomen): normal bowel sounds, soft, nontender, no hepatosplenomegaly Neurologic: PERRL, EOMI, accommodation nl, no face palsy, no dysarthria Results & Data Vital Signs (Past 12 Hours) Vital Signs Temp Pulse Resp BP BP Pulse Ox 03/15/19 08:00 36.8 C 90 22 132/63 96 03/15/19 04:11 36.4 C L 92 H 20 125/76 94 12/30/19 23:48 36.4 C L 85 20 130/85 95 Laboratory Results Coagulation 03/14/19 03/15/19 03/15/19 Range/Units 14:50 06:25 06:25 PT 11.1 (9.0-12.0) Seconds APTT 46.8 H* 66.6 H* (21.0-31.0) Seconds Intake and Output 03/14/19 03/15/19 03/15/19 22:59 06:59 14:59 Intake Total 150 / 640.00 450.45 / 450.45 Output Total 150 / 900 600 / 900 Balance 0 / -260.00 -600 / -260.00 450.45 / 450.45 Intake: IV 450.45 / 450.45 HEPARIN SODIUM/DEXTROSE 25,000 450.45 / 450.45 units In 500 ml @ 1,350 UNITS/ HR 27 mls/hr IV .[id number] [facility] Rx #:[id number] Oral 150 / 325 Output: Urine 150 / 900 600 / 900 Other: Weight 86 kg Diagnostic Findings EKG performed today 03/15/2019 at 6:41 AM: Atrial fibrillation 86 bpm, with bifascicular block pattern, resultant nonspecific repolarization abnormalities. Medications Administered Current Inpatient Medications Acetaminophen (Tylenol) 650 mg PO Q4H PRN PRN Reason: Pain or Fever Stop: 04/12/19 15:31 Aspirin (Ecotrin Ectab) 81 mg PO [facility] Stop: 04/13/19 08:59 Last Admin: 03/15/19 08:24 Dose: 81 mg Documented by: Citalopram Hydrobromide (Celexa) 40 mg PO DAILY [facility] Stop: 04/13/19 08:59 Last Admin: 03/15/19 08:24 Dose: 40 mg Documented by: Clopidogrel Bisulfate (Plavix) 75 mg PO QAM [facility] Stop: 04/13/19 08:59 Last Admin: 03/15/19 08:24 Dose: 75 mg Documented by: Colchicine (Colcrys) 0.6 mg PO BID [facility] Stop: 04/13/19 09:14 Last Admin: 03/15/19 08:24 Dose: 0.6 mg Documented by: Cyanocobalamin (Vitamin B-12) [facility] Stop: 04/13/19 08:59 Last Admin: 03/15/19 08:24 Dose: 500 mcg Documented by: Dextrose (Dextrose 50%) 25 - 50 ml IV UD PRN; Protocol PRN Reason: Hypoglycemia Protocol Stop: 04/12/19 15:31 Ferrous Sulfate (Feosol) 325 mg PO BID [facility] Stop: 04/12/19 20:59 Last Admin: 03/15/19 08:26 Dose: 325 mg Documented by: Glucagon (Glucagen) 1 mg SQ UD PRN; Protocol PRN Reason: Hypoglycemia Protocol Stop: 04/12/19 15:31 Glucose (Dex4 Glucose) 4 - 8 tabs PO UD PRN; Protocol PRN Reason: Hypoglycemia Protocol Stop: 04/12/19 15:31 Glucose (Glucose 40%) 15 - 30 gm PO UD PRN; Protocol PRN Reason: Hypoglycemia Protocol Stop: 04/12/19 15:31 Heparin Sodium/Dextrose (Heparin Sodium/Dextrose) 25,000 units in 500 mls @ 27 mls/hr IV .[id number] [facility]; Protocol Stop: 04/12/19 15:31 Last Admin: 03/15/19 07:47 Dose: 1,350 units/hr, 27 mls/hr Documented by: Insulin Aspart (Novolog Flexpen) 0 units SC ACHS [facility] Stop: 04/12/19 16:29 Last Admin: 03/15/19 08:29 Dose: 5 units Documented by: Insulin Glargine (Lantus Solostar Pen) 16 units SQ QAM [facility] Stop: 04/13/19 08:59 Last Admin: 03/15/19 08:29 Dose: 16 units Documented by: Levothyroxine Sodium (Synthroid) 50 mcg PO DAILYBB [facility] Stop: 04/13/19 06:29 Last Admin: 03/15/19 06:22 Dose: 50 mcg Documented by: Metoprolol Succinate (Toprol Xl) 25 mg PO QAM [facility] Stop: 04/13/19 08:59 Last Admin: 03/15/19 08:24 Dose: 25 mg Documented by: Miscellaneous (Carbohydrates For Hypoglycemia) 15 - 30 gm PO UD PRN PRN Reason: Hypoglycemia Protocol Stop: 04/12/19 15:31 Multivitamins/Folic Acid/Vitamin C (Flintstones Complete Chew Tab) [facility] Stop: 04/13/19 08:59 Last Admin: 03/15/19 08:24 Dose: 1 tab Documented by: Nitroglycerin (Nitrostat) 0.4 mg SL UD PRN PRN Reason: Chest Pain Stop: 04/12/19 15:31 Pantoprazole Sodium (Protonix) 40 mg PO DAILY [facility] Stop: 04/13/19 08:59 Last Admin: 03/15/19 08:23 Dose: 40 mg Documented by: Pantoprazole Sodium (Protonix) 40 mg PO QAM [facility] Stop: 04/13/19 12:14 Last Admin: 03/15/19 08:25 Dose: Not Given Documented by: Prednisone (Prednisone) 20 mg PO DAILY [facility] Stop: 04/14/19 08:59 Warfarin Sodium (Coumadin) 2 mg PO DAILY@1600 [facility] Stop: 04/13/19 15:59 Last Admin: 03/14/19 16:40 Dose: 2 mg Documented by: (1) CAD (coronary artery disease) Coronary Disease-Associated Artery/Lesion type: [place] artery [place] vs. transplanted heart: [place] heart Associated angina: without angina Qualified Code(s): I25.10 - Atherosclerotic heart disease of [place] coronary artery without angina pectoris
[2019-03-15] MEDS ORDERED: predniSONE 20 MG TAB PO SCH (11:00)
--- NOTE | 2019-03-15 16:57 | Hospitalist Progress Note ---
Date of Service March 15, 2019 Assessment & Plan (1) New onset atrial fibrillation: - -Patient presenting from home with reports of increasing exertional chest pain and shortness of breath -In the ED, EKG demonstrates rate controlled atrial fibrillation, new onset for the patient - on metoprolol succinate 25 mg daily, HR remains controlled -[id number] score 6;low pt started on low dose Coumadin on IV heparin bridge goal INR 2-3 monitor closely for increased risk of Hemorrhagic conversion of pericardial effusion -Pacer interrogation: reveals that she has been in atrial fibrillation for just over 2 weeks with onset having been on 02/25/2019. -Recent resting echo 02/01/2019-EF 55 to 59%, mild aortic valve stenosis, moderate mitral stenosis, mild tricuspid regurgitation -Cardiology consult, input appreciated PERICARDIAL EFFUSION : An echocardiogram: normal LV wall motion and normal LVEF with findings of moderate mitral stenosis and mild aortic valve stenosis unchanged compared to last month. per cardiology started colchicine, omeprazole for GI prophylaxis, and low-dose prednisone will need 6 weeks of prolong taper She is not a candidate for high-dose aspirin or other nonsteroidal anti- inflammatory medication due to baseline CKD stage 3 (2) Chest pain: (3) CAD (coronary artery disease): no complain of SOB or angina symptom -Patient presented with increasing exertional chest pain or shortness of breath, found to be in new onset rate controlled atrial fibrillation -History of coronary disease, status post multiple coronary interventions in the past with most recent being 12/2017 -serial troponin negative appreciate cardiology eval; cont cardiac meds (4) Leg edema: -Lower extremity edema, R>L (chronic per patient), noted on exam - -BL LE venous Doppler-negative for DVT -Recent echo report as above (5) DM type 2 (diabetes mellitus, type 2): -Hgb A1c 7.5 02/2019 -Continue home dose of Lantus, add on NovoLog per protocol while hospitalized (6) MDS (myelodysplastic syndrome): -Baseline hemoglobin ~ 10-11 -Noted to be 10.7 today (7) Hypothyroidism: -Continue with thyroxine (8) Depression: -Continue citalopram (9) DVT prophylaxis: - IV heparin /coumadin CODE STATUS : DNR/DNI DISPOSITION: lives at home with son active with [employer] @home and [employer] PT/OT eval requested Subjective feels fine , no recurrence of chest pain or SOB no complain of palpitation or dizzy spell Review of Systems Review of Systems: ROS per HPI, all other systems reviewed and negative Physical Exam Constitutional: WD/WN, vitals as above Eyes: PERRL, conjunctivae normal, anicteric sclerae ENMT: external ear and nose normal, oropharynx normal Respiratory: normal respiratory effort, lungs clear to auscultation Cardiovascular: Rate/Rhythm: regular rate and + irregularly irregular Vessels: normal peripheral pulses Extremities: + edema (+1-2 edema BLE, R>L) Gastrointestinal (Abdomen): normal bowel sounds, soft, nontender, no hepatosplenomegaly Musculoskeletal: no cyanosis or clubbing, extremities motor strength 5/5 Skin: no rashes, warm and dry Neurologic: PERRL, EOMI, accommodation nl, no face palsy, no dysarthria Psychiatric: A+Ox3, euthymic affect Cognition: + remote memory not intact Insight: + limited insight Results & Data Vital Signs (Past 12 Hours) Vital Signs Temp Pulse Resp BP Pulse Ox 03/15/19 15:44 37.2 C 87 18 106/69 92 03/15/19 11:44 36.9 C 84 16 122/68 95 03/15/19 08:00 36.8 C 90 22 132/63 96 (1) CAD (coronary artery disease) Associated angina: without angina Coronary Disease-Associated Artery/Lesion type: [place] artery [place] vs. transplanted heart: [place] heart Qualified Code(s): I25.10 - Atherosclerotic heart disease of [place] coronary artery without angina pectoris
[2019-03-15] MEDS: WARFARIN SOD 2.5 MG TAB PO SCH (17:37)
[2019-03-16] MEDS: HEPARIN SODIUM/DEXTROSE 25,000 UNITS/500 ML BAG IV SCH ×2 (03:09→20:40)
[2019-03-16] MEDS: LEVOTHYROXINE SODIUM 50 MCG TABLET PO SCH (06:10)
[2019-03-16 07:20] LABS: Hematocrit (blood only) 31.3 % (37-47); Hemoglobin 10.1 g/dL (12.0-16.0); Mean Corpuscular Hgb Conc 32.3 g/dL (32-36); Mean Corpuscular Volume 92.9 fL (80-100); Platelet Count 290 K/uL (130-400); RDW Coefficient of Variation 13.9 % (11.5-14.5); RDW Standard Deviation 46.7 fL (36.4-46.3); Red Blood Count 3.37 M/uL (4.2-5.4); White Blood Count 5.39 K/uL (4.8-10.8)
[2019-03-16 07:29] LABS: INR 1.1 (0.9-1.1); Prothrombin Time 11.4 Seconds (9.0-12.0)
[2019-03-16] MEDS: INSULIN ASPART 100 UNITS/ML 3 ML PEN SC SCH ×4 (08:27→20:40)
[2019-03-16 08:29] LABS: Partial Thromboplastin Ratio 2.4
[2019-03-16] MEDS: COLCHICINE 0.6 MG TAB PO SCH ×2 (08:29→20:40)
[2019-03-16] MEDS: PANTOprazole 40 MG TAB PO SCH (08:29)
[2019-03-16] MEDS: CYANOCOBALAMIN 500 MCG TABLET (VITAMIN B-12) PO SCH (08:33)
[2019-03-16] MEDS: METOPROLOL SUCC 25MG EXT REL TAB PO SCH ×3 (08:33→20:41)
[2019-03-16] MEDS: FLINTSTONES COMPLETE CHEWABLE TAB PO SCH (08:33)
[2019-03-16] MEDS: CLOPIDOGREL BISULFATE 75 MG TAB PO SCH (08:34)
[2019-03-16] MEDS: CITALOPRAM 40 MG TAB PO SCH (08:34)
[2019-03-16] MEDS: FERROUS SULFATE 325 MG TAB PO SCH ×2 (08:34→20:40)
[2019-03-16] MEDS: predniSONE 20 MG TAB PO SCH (08:34)
[2019-03-16 08:43] LABS: Partial Thromboplastin Time 64.8 Seconds (21.0-31.0)
--- NOTE | 2019-03-16 08:56 | Hospitalist Progress Note ---
Date of Service March 16, 2019 Assessment & Plan (1) New onset atrial fibrillation: -Patient presenting from home with reports of increasing exertional chest pain and shortness of breath -In the ED, EKG demonstrates rate controlled atrial fibrillation, new onset for the patient - on metoprolol succinate 25 mg daily, increased to BID, HR remains controlled -[id number] score 6;low dose coumadin 2 mg daily ordered (pt did not take the dose yesterday 03/15) - on IV heparin bridge - monitor closely for increased risk of Hemorrhagic conversion of pericardial effusion -Pacer interrogation: reveals that she has been in atrial fibrillation for just over 2 weeks with onset having been on 02/25/2019. -Recent resting echo 02/01/2019-EF 55 to 59%, mild aortic valve stenosis, moderate mitral stenosis, mild tricuspid regurgitation -Cardiology consult, input appreciated PERICARDIAL EFFUSION : An echocardiogram: normal LV wall motion and normal LVEF with findings of moderate mitral stenosis and mild aortic valve stenosis unchanged compared to last month. per cardiology started colchicine, omeprazole for GI prophylaxis, and low-dose prednisone. Plan for prednisone taper over 6 weeks. She is not a candidate for high-dose aspirin or other nonsteroidal anti- inflammatory medication. (2) Chest pain: (3) CAD (coronary artery disease): no complain of SOB or angina symptom -Patient presented with increasing exertional chest pain or shortness of breath, found to be in new onset rate controlled atrial fibrillation -History of coronary disease, status post multiple coronary interventions in the past with most recent being 12/2017 -serial troponin negative appreciate cardiology eval; cont cardiac meds (4) Leg edema: -Lower extremity edema, R>L (chronic per patient), noted on exam -BL LE venous Doppler-negative for DVT -Recent echo report as above (5) DM type 2 (diabetes mellitus, type 2): -Hgb A1c 7.5 02/2019 -Continue home dose of Lantus, add on NovoLog per protocol while hospitalized (6) MDS (myelodysplastic syndrome): -Baseline hemoglobin ~ 10-11 -Noted to be 10.1 today - will cont. to monitor (7) Hypothyroidism: -Continue with levothyroxine - TSH 6.5 on 02/22 (8) Depression: -Continue citalopram (9) DVT prophylaxis: IV heparin - will start coumadin (pt didn't start yesterday) Subjective No acute events overnight. Patient is lying in bed, in no acute distress. Denies any chest pain, shortness of breath, palpitations, abdominal pain, nausea or vomiting. She is inquiring about going home. Pt did not take coumdin yesterday, notified this AM by nurse who found medication on patient's table. Due to low blood pressure this morning, metoprolol was delayed until noon. Coumadin brochure was provided by pt's nurse, with education given by me and the nurse at the bedside. Review of Systems Review of Systems: All systems reviewed & are unremarkable except as noted in HPI & below Constitutional: no fever and no chills Respiratory: no cough, no dyspnea and no pain on inspiration Cardiovascular: no chest pain and no palpitations Physical Exam Physical Exam: Constitutional: Elderly female lying in bed, in no acute distress Eyes: PERRL, EOMI,conjunctivae normal, anicteric sclerae ENMT: external ear and nose normal, oropharynx normal Respiratory: normal respiratory effort, lungs clear to auscultation, no wheezing, rhonchi or crackles Cardiovascular: Rate/Rhythm: regular rate and + irregularly irregular Vessels: normal peripheral pulses Extremities: + edema (+1-2 edema BLE, R>L) Gastrointestinal (Abdomen): normal bowel sounds, soft, nontender, nondistended, no guarding Musculoskeletal: no cyanosis or clubbing, extremities motor strength 5/5, moves all 4 extremities spontaneously Skin: no rashes, warm and dry Neurologic: PERRL, EOMI, accommodation nl, no face palsy, no dysarthria, moves all 4 extremities spontaneously Psychiatric: A+Ox3, euthymic affect Cognition: + remote memory not intact Insight: + limited insight Results & Data Vital Signs (Past 12 Hours) Vital Signs Temp Pulse Pulse Resp BP BP Pulse Ox 03/16/19 08:36 79 100/42 L 03/16/19 07:44 36.9 C 96 H 18 92/60 L 94 03/16/19 04:00 36.4 C L 89 18 121/78 95 03/15/19 23:00 36.6 C 92 H 19 107/65 95 Laboratory Results 03/16/19 03/16/19 03/16/19 Range/Units 07:58 07:22 06:47 WBC 5.39 (4.8-10.8) K/uL RBC 3.37 L (4.2-5.4) M/uL Hgb 10.1 L (12.0-16.0) g/dL Hct 31.3 L (37-47) % MCV 92.9 (80-100) fL MCH 30.0 (25-34) pg MCHC 32.3 (32-36) g/dL RDW Std Deviation 46.7 H (36.4-46.3) fL RDW Coeff of [place]aston 13.9 (11.5-14.5) % Plt Count 290 (130-400) K/uL MPV 10.0 (7.4-10.4) fL PT (9.0-12.0) Seconds INR (0.9-1.1) APTT 64.8 H* (21.0-31.0) Seconds PTT Ratio 2.4 POC Glucose 119 H (70-99) 03/16/19 03/15/19 03/15/19 Range/Units 06:47 20:40 20:14 WBC (4.8-10.8) K/uL RBC (4.2-5.4) M/uL Hgb (12.0-16.0) g/dL Hct (37-47) % MCV (80-100) fL MCH (25-34) pg MCHC (32-36) g/dL RDW Std Deviation (36.4-46.3) fL RDW Coeff of [place] (11.5-14.5) % Plt Count (130-400) K/uL MPV (7.4-10.4) fL PT 11.4 (9.0-12.0) Seconds INR 1.1 (0.9-1.1) APTT (21.0-31.0) Seconds PTT Ratio POC Glucose 124 H 61 L* (70-99) 03/15/19 03/15/19 03/15/19 Range/Units 20:13 16:42 11:24 WBC (4.8-10.8) K/uL RBC (4.2-5.4) M/uL Hgb (12.0-16.0) g/dL Hct (37-47) % MCV (80-100) fL MCH (25-34) pg MCHC (32-36) g/dL RDW Std Deviation (36.4-46.3) fL RDW Coeff of [place] (11.5-14.5) % Plt Count (130-400) K/uL MPV (7.4-10.4) fL PT (9.0-12.0) Seconds INR (0.9-1.1) APTT (21.0-31.0) Seconds PTT Ratio POC Glucose 58 L* 187 H 129 H (70-99) Medications Administered Current Inpatient Medications Acetaminophen (Tylenol) 650 mg PO Q4H PRN PRN Reason: Pain or Fever Stop: 04/12/19 15:31 Citalopram Hydrobromide (Celexa) 40 mg PO DAILY [facility] Stop: 04/13/19 08:59 Last Admin: 03/16/19 08:34 Dose: 40 mg Documented by: Clopidogrel Bisulfate (Plavix) 75 mg PO QAM [facility] Stop: 04/13/19 08:59 Last Admin: 03/16/19 08:34 Dose: 75 mg Documented by: Colchicine (Colcrys) 0.6 mg PO BID [facility] Stop: 04/13/19 09:14 Last Admin: 03/16/19 08:29 Dose: 0.6 mg Documented by: Cyanocobalamin (Vitamin B-12) 500 mcg PO QAM [facility] Stop: 04/13/19 08:59 Last Admin: 03/16/19 08:33 Dose: 500 mcg Documented by: Dextrose (Dextrose 50%) 25 - 50 ml IV UD PRN; Protocol PRN Reason: Hypoglycemia Protocol Stop: 04/12/19 15:31 Ferrous Sulfate (Feosol) 325 mg PO BID [facility] Stop: 04/12/19 20:59 Last Admin: 03/16/19 08:34 Dose: 325 mg Documented by: Glucagon (Glucagen) 1 mg SQ UD PRN; Protocol PRN Reason: Hypoglycemia Protocol Stop: 04/12/19 15:31 Glucose (Dex4 Glucose) 4 - 8 tabs PO UD PRN; Protocol PRN Reason: Hypoglycemia Protocol Stop: 04/12/19 15:31 Glucose (Glucose 40%) 15 - 30 gm PO UD PRN; Protocol PRN Reason: Hypoglycemia Protocol Stop: 04/12/19 15:31 Heparin Sodium/Dextrose (Heparin Sodium/Dextrose) 25,000 units in 500 mls @ 27 mls/hr IV .[id number] [facility]; Protocol Stop: 04/12/19 15:31 Last Titration: 03/16/19 07:13 Dose: 1,350 units/hr, 27 mls/hr Documented by: Insulin Aspart (Novolog Flexpen) 0 units SC ACHS [facility] Stop: 04/12/19 16:29 Last Admin: 03/16/19 08:27 Dose: 2 units Documented by: Insulin Glargine (Lantus Solostar Pen) 16 units SQ QAM [facility] Stop: 04/13/19 08:59 Last Admin: 03/15/19 08:29 Dose: 16 units Documented by: Levothyroxine Sodium (Synthroid) 50 mcg PO DAILYBB [facility] Stop: 04/13/19 06:29 Last Admin: 03/16/19 06:10 Dose: 50 mcg Documented by: Metoprolol Succinate (Toprol Xl) 25 mg PO BID [facility] Stop: 04/14/19 20:59 Last Admin: 03/16/19 08:33 Dose: Not Given Documented by: Miscellaneous (Carbohydrates For Hypoglycemia) 15 - 30 gm PO UD PRN PRN Reason: Hypoglycemia Protocol Stop: 04/12/19 15:31 Last Admin: 03/15/19 20:18 Dose: 15 gm Documented by: Multivitamins/Folic Acid/Vitamin C (Flintstones Complete Chew Tab) 1 tab PO QAM [facility] Stop: 04/13/19 08:59 Last Admin: 03/16/19 08:33 Dose: 1 tab Documented by: Nitroglycerin (Nitrostat) 0.4 mg SL UD PRN PRN Reason: Chest Pain Stop: 04/12/19 15:31 Pantoprazole Sodium (Protonix) 40 mg PO DAILY [facility] Stop: 04/13/19 08:59 Last Admin: 03/16/19 08:29 Dose: 40 mg Documented by: Prednisone (Prednisone) 20 mg PO DAILY [facility] Stop: 04/14/19 08:59 Last Admin: 03/16/19 08:34 Dose: 20 mg Documented by: Warfarin Sodium (Coumadin) 2.5 mg PO DAILY@1600 [facility] Stop: 04/14/19 15:59 Last Admin: 03/15/19 17:37 Dose: 2.5 mg - pt did not take Documented by: (1) CAD (coronary artery disease) Associated angina: without angina Coronary Disease-Associated Artery/Lesion type: [place] artery [place] vs. transplanted heart: [place] heart Qualified Code(s): I25.10 - Atherosclerotic heart disease of [place] coronary artery without angina pectoris
[2019-03-16] MEDS: INSULIN GLARGINE SOLOSTAR 100 UNITS/ML 3 ML PEN SQ SCH (09:08)
--- NOTE | 2019-03-16 09:52 | Cardiology Progress Note ---
Date of Service March 16, 2019 Assessment & Plan (1) Mitral stenosis: (2) Pericardial effusion: (3) Chest pain: (4) Pacemaker: (5) New onset atrial fibrillation: The patient is currently stable with rate controlled atrial fibrillation. She remains on heparin, unfortunately she did not take her Coumadin yesterday. This will most likely delay hospital discharge. Toprol was held this morning due to low blood pressure but hopefully later today it can be given. Subjective The patient has no new cardiac complaints today. Review of Systems Review of Systems: All systems reviewed & are unremarkable except as noted in HPI & below Nothing additional to add. Physical Exam Physical Exam: General: no acute distress and stated age Head: normocephalic, no masses, lesions, tenderness or abnormalities Eyes: conjunctiva are pink and non-injected, sclera clear Neck: supple, no adenopathy, no bruits, normal jugular venous pulse, no hepatojugular reflux Chest: normal shape and normal respiratory effort Lungs: clear to auscultation and percussion Cardiac Exam: - irregular rate & rhythm, no murmurs gallops or rubs - normal S1, normal S2 Pulses: 2(+) throughout Abdomen: abdomen soft, non-tender, no abnormal masses and no hepatosplenomegaly Musculoskeletal: no gait disturbance, no joint inflammation, no deforming arthritis Extremities: no edema and no cyanosis Neuro: grossly normal exam Results & Data Vital Signs (Past 12 Hours) Vital Signs Temp Pulse Pulse Pulse Resp BP BP 03/16/19 08:36 79 100/42 L 03/16/19 08:00 90 03/16/19 07:44 36.9 C 96 H 18 92/60 L 03/16/19 04:00 36.4 C L 89 18 121/78 03/15/19 23:00 36.6 C 92 H 19 107/65 Pulse Ox 03/16/19 08:36 03/16/19 08:00 03/16/19 07:44 94 03/16/19 04:00 95 03/15/19 23:00 95 Laboratory Results Laboratory Results - last 24 hr 03/15/19 03/15/19 03/15/19 11:24 16:42 20:13 WBC RBC Hgb Hct MCV MCH MCHC RDW Std Deviation RDW Coeff of Gaston Plt Count MPV PT INR APTT PTT Ratio POC Glucose 129 H 187 H 58 L* 03/15/19 03/15/19 03/16/19 20:14 20:40 06:47 WBC RBC Hgb Hct MCV MCH MCHC RDW Std Deviation RDW Coeff of [place]aston Plt Count MPV PT 11.4 INR 1.1 APTT PTT Ratio POC Glucose 61 L* 124 H 03/16/19 03/16/19 03/16/19 06:47 07:22 07:58 WBC 5.39 RBC 3.37 L Hgb 10.1 L Hct 31.3 L MCV 92.9 MCH 30.0 MCHC 32.3 RDW Std Deviation 46.7 H RDW Coeff of [place] 13.9 Plt Count 290 MPV 10.0 PT INR APTT 64.8 H* PTT Ratio 2.4 POC Glucose 119 H Medications Administered Current Inpatient Medications Acetaminophen (Tylenol) 650 mg PO Q4H PRN PRN Reason: Pain or Fever Stop: 04/12/19 15:31 Citalopram Hydrobromide (Celexa) 40 mg PO DAILY [facility] Stop: 04/13/19 08:59 Last Admin: 03/16/19 08:34 Dose: 40 mg Documented by: Clopidogrel Bisulfate (Plavix) 75 mg PO QAM [facility] Stop: 04/13/19 08:59 Last Admin: 03/16/19 08:34 Dose: 75 mg Documented by: Colchicine (Colcrys) 0.6 mg PO BID [facility] Stop: 04/13/19 09:14 Last Admin: 03/16/19 08:29 Dose: 0.6 mg Documented by: Cyanocobalamin (Vitamin B-12) 500 mcg PO QAM [facility] Stop: 04/13/19 08:59 Last Admin: 03/16/19 08:33 Dose: 500 mcg Documented by: Dextrose (Dextrose 50%) 25 - 50 ml IV UD PRN; Protocol PRN Reason: Hypoglycemia Protocol Stop: 04/12/19 15:31 Ferrous Sulfate (Feosol) 325 mg PO BID [facility] Stop: 04/12/19 20:59 Last Admin: 03/16/19 08:34 Dose: 325 mg Documented by: Glucagon (Glucagen) 1 mg SQ UD PRN; Protocol PRN Reason: Hypoglycemia Protocol Stop: 04/12/19 15:31 Glucose (Dex4 Glucose) 4 - 8 tabs PO UD PRN; Protocol PRN Reason: Hypoglycemia Protocol Stop: 04/12/19 15:31 Glucose (Glucose 40%) 15 - 30 gm PO UD PRN; Protocol PRN Reason: Hypoglycemia Protocol Stop: 04/12/19 15:31 Heparin Sodium/Dextrose (Heparin Sodium/Dextrose) 25,000 units in 500 mls @ 27 mls/hr IV .[id number] [facility]; Protocol Stop: 04/12/19 15:31 Last Titration: 03/16/19 09:05 Dose: 1,350 units/hr, 27 mls/hr Documented by: Insulin Aspart (Novolog Flexpen) 0 units SC ACHS [facility] Stop: 04/12/19 16:29 Last Admin: 03/16/19 08:27 Dose: 2 units Documented by: Insulin Glargine (Lantus Solostar Pen) 14 units SQ QAM [facility] Stop: 04/15/19 08:59 Last Admin: 03/16/19 09:08 Dose: 14 units Documented by: Levothyroxine Sodium (Synthroid) 50 mcg PO DAILYBB [facility] Stop: 04/13/19 06:29 Last Admin: 03/16/19 06:10 Dose: 50 mcg Documented by: Metoprolol Succinate (Toprol Xl) 25 mg PO BID [facility] Stop: 04/14/19 20:59 Last Admin: 03/16/19 08:33 Dose: Not Given Documented by: Miscellaneous (Carbohydrates For Hypoglycemia) 15 - 30 gm PO UD PRN PRN Reason: Hypoglycemia Protocol Stop: 04/12/19 15:31 Last Admin: 03/15/19 20:18 Dose: 15 gm Documented by: Multivitamins/Folic Acid/Vitamin C (Flintstones Complete Chew Tab) 1 tab PO QAM [facility] Stop: 04/13/19 08:59 Last Admin: 03/16/19 08:33 Dose: 1 tab Documented by: Nitroglycerin (Nitrostat) 0.4 mg SL UD PRN PRN Reason: Chest Pain Stop: 04/12/19 15:31 Pantoprazole Sodium (Protonix) 40 mg PO DAILY [facility] Stop: 04/13/19 08:59 Last Admin: 03/16/19 08:29 Dose: 40 mg Documented by: Prednisone (Prednisone) 20 mg PO DAILY [facility] Stop: 04/14/19 08:59 Last Admin: 03/16/19 08:34 Dose: 20 mg Documented by: Warfarin Sodium (Coumadin) 2.5 mg PO DAILY@1600 [facility] Stop: 04/14/19 15:59 Last Admin: 03/15/19 17:37 Dose: 2.5 mg Documented by:
[2019-03-16] MEDS: WARFARIN SOD 2.5 MG TAB PO SCH (15:52)
[2019-03-17] MEDS: LEVOTHYROXINE SODIUM 50 MCG TABLET PO SCH (05:55)
[2019-03-17] MEDS: FLINTSTONES COMPLETE CHEWABLE TAB PO SCH (07:51)
[2019-03-17] MEDS: PANTOprazole 40 MG TAB PO SCH (07:51)
[2019-03-17] MEDS: CITALOPRAM 40 MG TAB PO SCH (07:51)
[2019-03-17] MEDS: CYANOCOBALAMIN 500 MCG TABLET (VITAMIN B-12) PO SCH (07:51)
[2019-03-17] MEDS: predniSONE 20 MG TAB PO SCH (07:51)
[2019-03-17] MEDS: METOPROLOL SUCC 25MG EXT REL TAB PO SCH ×2 (07:51→20:24)
[2019-03-17] MEDS: FERROUS SULFATE 325 MG TAB PO SCH ×2 (07:51→20:24)
[2019-03-17] MEDS: COLCHICINE 0.6 MG TAB PO SCH ×2 (07:51→20:24)
[2019-03-17] MEDS: INSULIN GLARGINE SOLOSTAR 100 UNITS/ML 3 ML PEN SQ SCH (07:52)
[2019-03-17] MEDS: INSULIN ASPART 100 UNITS/ML 3 ML PEN SC SCH ×4 (07:53→20:24)
[2019-03-17 08:10] LABS: INR 1.1 (0.9-1.1); Partial Thromboplastin Ratio 2.6; Prothrombin Time 11.4 Seconds (9.0-12.0)
[2019-03-17 08:15] LABS: Partial Thromboplastin Time 70.3 Seconds (21.0-31.0)
[2019-03-17 08:17] LABS: BUN Creatinine Ratio 16.5 (10-20); Calcium 8.8 mg/dl (8.5-10.1); Creatinine Clr Calc Pharmacy 55.7 ml/min; Est GFR (African American) 71.9; Est GFR (Non-African American) 62.1; Magnesium 1.8 mg/dl (1.8-2.4); Potassium 3.2 mmol/L (3.5-5.1)
[2019-03-17] MEDS: CLOPIDOGREL BISULFATE 75 MG TAB PO SCH (08:26)
--- NOTE | 2019-03-17 09:10 | Hospitalist Progress Note ---
Date of Service March 17, 2019 Assessment & Plan (1) New onset atrial fibrillation: -Patient presenting from home with reports of increasing exertional chest pain and shortness of breath -In the ED, EKG demonstrates rate controlled atrial fibrillation, new onset for the patient - on metoprolol succinate 25 mg daily, HR remains controlled -[id number] score 6;low pt started on low dose Coumadin (patient will need to be set up with anticoagulation clinic) - on IV heparin bridge goal INR 2-3 monitor closely for increased risk of Hemorrhagic conversion of pericardial effusion -Pacer interrogation: reveals that she has been in atrial fibrillation for just over 2 weeks with onset having been on 02/25/2019. -Recent resting echo 02/01/2019-EF 55 to 59%, mild aortic valve stenosis, moderate mitral stenosis, mild tricuspid regurgitation -Keep K~4, Mag~2, replete and monitor hypokalemia and hypomagnesemia -Cardiology consult, input appreciated -Continue Coumadin and clopidogrel, aspirin was discontinued - Telemetry reviewed - pt cont. to be in Afib w/ HR 60-70s PERICARDIAL EFFUSION : An echocardiogram: normal LV wall motion and normal LVEF with findings of moderate mitral stenosis and mild aortic valve stenosis unchanged compared to last month. - Echo repeated today (03/17/2019) -to visualize pericardial effusion - per cardiology started colchicine, prednisone, omeprazole for GI prophylaxis , (will need 6 weeks of prolonged prednisone taper) She is not a candidate for high-dose aspirin or other nonsteroidal anti- inflammatory medication due to baseline CKD stage 3 (2) Chest pain: (3) CAD (coronary artery disease): no complain of SOB or angina symptom -Patient presented with increasing exertional chest pain or shortness of breath, found to be in new onset rate controlled atrial fibrillation -History of coronary disease, status post multiple coronary interventions in the past with most recent being 12/2017 -serial troponin negative appreciate cardiology eval; cont cardiac meds (4) Leg edema: -Lower extremity edema, R>L (chronic per patient), noted on exam -BL LE venous Doppler-negative for DVT -Recent echo report as above (5) DM type 2 (diabetes mellitus, type 2): -Hgb A1c 7.5 02/2019 -Continue home dose of Lantus, add on NovoLog per protocol while hospitalized (6) MDS (myelodysplastic syndrome): -Baseline hemoglobin ~ 10-11 -Noted to be 10.1 0n 03/16/2019 - will cont. to monitor (7) Hypothyroidism: -Continue with levothyroxine - TSH 6.5 on 02/22 (8) Depression: -Continue citalopram (9) DVT prophylaxis: IV heparin /coumadin CODE STATUS : DNR/DNI DISPOSITION: lives at home with son active with [facility] and [facility] [facility] PT/OT eval requested Subjective Patient is sitting at the edge of the bed, in no acute distress. Says she feels tired because she had many visitors today. Denies any chest pain, palpitations, shortness of breath, abdominal pain, nausea or vomiting. Started coumadin yesterday (first dose 03/16/2019). Brochure and education on coumadin provided. Currently on IV heparin. Review of Systems Review of Systems: All systems reviewed & are unremarkable except as noted in HPI & below Constitutional: no fever and no chills Respiratory: no cough, no dyspnea and no pain on inspiration Cardiovascular: no chest pain and no palpitations Gastrointestinal: no abdominal pain, no nausea and no vomiting Physical Exam Physical Exam: Constitutional: Elderly female sitting up on bed, in no acute distress, on IV heparin Eyes: PERRL, EOMI,conjunctivae normal, anicteric sclerae ENMT: external ear and nose normal, oropharynx normal Respiratory: normal respiratory effort, lungs clear to auscultation, no wheezing, rhonchi or crackles Cardiovascular: Rate/Rhythm: regular rate and + irregularly irregular Vessels: normal peripheral pulses Extremities: + edema (+1-2 edema BLE, R>L) Gastrointestinal (Abdomen): normal bowel sounds, soft, nontender, nondistended, no guarding Musculoskeletal: no cyanosis or clubbing, extremities motor strength 5/5, moves all 4 extremities spontaneously Skin: no rashes, warm and dry Neurologic: PERRL, EOMI, accommodation nl, no face palsy, no dysarthria, moves all 4 extremities spontaneously Psychiatric: A+Ox3, euthymic affect Cognition: + remote memory not intact Insight: + limited insight Results & Data Vital Signs (Past 12 Hours) Vital Signs Temp Pulse Pulse Pulse Resp BP Pulse Ox 03/17/19 08:07 36.8 C 84 20 131/68 96 03/17/19 05:37 36.9 C 81 18 117/74 94 03/17/19 00:47 85 03/16/19 23:25 36.4 C L 89 20 129/84 95 Laboratory Results 03/17/19 03/17/19 03/17/19 Range/Units 07:34 07:05 07:05 PT 11.4 (9.0-12.0) Seconds INR 1.1 (0.9-1.1) APTT 70.3 H* (21.0-31.0) Seconds PTT Ratio 2.6 Sodium 142 (136-145) mmol/L Potassium 3.2 L (3.5-5.1) mmol/L Chloride 106 (98-107) mmol/L Carbon Dioxide 29 (21-32) mmol/L Anion Gap 7.0 (3-11) BUN 15 (7-18) mg/dl Creatinine 0.88 (0.6-1.2) mg/dl Est Cr Clr Drug Dosing 55.7 ml/min Est GFR ( Amer) 71.9 Est GFR (Non-Af Amer) 62.1 BUN/Creatinine Ratio 16.5 (10-20) Glucose 117 H (70-99) mg/dl POC Glucose 126 H (70-99) Calcium 8.8 (8.5-10.1) mg/dl Magnesium 1.8 (1.8-2.4) mg/dl 03/16/19 03/16/19 03/16/19 Range/Units 20:23 16:37 11:34 PT (9.0-12.0) Seconds INR (0.9-1.1) APTT (21.0-31.0) Seconds PTT Ratio Sodium (136-145) mmol/L Potassium (3.5-5.1) mmol/L Chloride (98-107) mmol/L Carbon Dioxide (21-32) mmol/L Anion Gap (3-11) BUN (7-18) mg/dl Creatinine (0.6-1.2) mg/dl Est Cr Clr Drug Dosing ml/min Est GFR ( Amer) Est GFR (Non-Af Amer) BUN/Creatinine Ratio (10-20) Glucose (70-99) mg/dl POC Glucose 174 H 277 H 208 H (70-99) Calcium (8.5-10.1) mg/dl Magnesium (1.8-2.4) mg/dl Medications Administered Current Inpatient Medications Acetaminophen (Tylenol) 650 mg PO Q4H PRN PRN Reason: Pain or Fever Stop: 04/12/19 15:31 Last Admin: 03/17/19 08:27 Dose: 650 mg Documented by: Citalopram Hydrobromide (Celexa) 40 mg PO DAILY [facility] Stop: 04/13/19 08:59 Last Admin: 03/17/19 07:51 Dose: 40 mg Documented by: [facility] ([facility]) [facility] Stop: 04/13/19 08:59 Last Admin: 03/17/19 08:26 Dose: 75 mg Documented by: Colchicine (Colcrys) 0.6 mg PO BID [facility] Stop: 04/13/19 09:14 Last Admin: 03/17/19 07:51 Dose: 0.6 mg Documented by: Cyanocobalamin (Vitamin B-12) 500 mcg PO [facility] Stop: 04/13/19 08:59 Last Admin: 03/17/19 07:51 Dose: 500 mcg Documented by: Dextrose (Dextrose 50%) 25 - 50 ml IV UD PRN; Protocol PRN Reason: Hypoglycemia Protocol Stop: 04/12/19 15:31 Ferrous Sulfate (Feosol) 325 mg PO BID [facility] Stop: 04/12/19 20:59 Last Admin: 03/17/19 07:51 Dose: 325 mg Documented by: Glucagon (Glucagen) 1 mg SQ UD PRN; Protocol PRN Reason: Hypoglycemia Protocol Stop: 04/12/19 15:31 Glucose (Dex4 Glucose) 4 - 8 tabs PO UD PRN; Protocol PRN Reason: Hypoglycemia Protocol Stop: 04/12/19 15:31 Glucose (Glucose 40%) 15 - 30 gm PO UD PRN; Protocol PRN Reason: Hypoglycemia Protocol Stop: 04/12/19 15:31 Heparin Sodium/Dextrose (Heparin Sodium/Dextrose) 25,000 units in 500 mls @ 26 mls/hr IV .[id number] [facility]; Protocol Stop: 04/12/19 15:31 Last Titration: 03/17/19 08:16 Dose: 1,300 units/hr, 26 mls/hr Documented by: Magnesium Sulfate/Dextrose (Magnesium Sulfate / D5w) 1 gm in 100 mls @ 100 mls/hr IV ONE ONE Stop: 03/17/19 10:10 Insulin Aspart (Novolog Flexpen) 0 units SC ACHS [facility] Stop: 04/12/19 16:29 Last Admin: 03/17/19 07:53 Dose: 3 units Documented by: Insulin Glargine (Lantus Solostar Pen) 14 units SQ QAM [facility] Stop: 04/15/19 08:59 Last Admin: 03/17/19 07:52 Dose: 14 units Documented by: Levothyroxine Sodium (Synthroid) 50 mcg PO DAILYBB [facility] Stop: 04/13/19 06:29 Last Admin: 03/17/19 05:55 Dose: 50 mcg Documented by: Metoprolol Succinate (Toprol Xl) 25 mg PO BID [facility] Stop: 04/14/19 20:59 Last Admin: 03/17/19 07:51 Dose: 25 mg Documented by: Miscellaneous (Carbohydrates For Hypoglycemia) 15 - 30 gm PO UD PRN PRN Reason: Hypoglycemia Protocol Stop: 04/12/19 15:31 Last Admin: 03/15/19 20:18 Dose: 15 gm Documented by: Multivitamins/Folic Acid/Vitamin C (Flintstones Complete Chew Tab) 1 tab PO QAM [facility] Stop: 04/13/19 08:59 Last Admin: 03/17/19 07:51 Dose: 1 tab Documented by: Nitroglycerin (Nitrostat) 0.4 mg SL UD PRN PRN Reason: Chest Pain Stop: 04/12/19 15:31 Pantoprazole Sodium (Protonix) 40 mg PO DAILY [facility] Stop: 04/13/19 08:59 Last Admin: 03/17/19 07:51 Dose: 40 mg Documented by: Potassium Chloride (Klor-Con M20) 40 meq PO NOW STA Stop: 03/17/19 09:12 Prednisone (Prednisone) 20 mg PO DAILY [facility] Stop: 04/14/19 08:59 Last Admin: 03/17/19 07:51 Dose: 20 mg Documented by: Warfarin Sodium (Coumadin) 2.5 mg PO DAILY@1600 [facility] Stop: 04/14/19 15:59 Last Admin: 03/16/19 15:52 Dose: 2.5 mg Documented by: (1) CAD (coronary artery disease) Coronary Disease-Associated Artery/Lesion type: [place] artery [place] vs. transplanted heart: [place] heart Associated angina: without angina Qualified Code(s): I25.10 - Atherosclerotic heart disease of [place] coronary artery without angina pectoris
[2019-03-17] MEDS ORDERED: POTASSIUM CHLORIDE 20 MEQ TABCR PO STA (09:11)
[2019-03-17] MEDS ORDERED: MAGNESIUM SULFATE / D5W 1 GM/100 ML BAG IV ONE (09:15)
--- NOTE | 2019-03-17 10:00 | Cardiology Progress Note ---
Date of Service March 17, 2019 Assessment & Plan (1) New onset atrial fibrillation: (2) Mitral stenosis: (3) Pericardial effusion: (4) CAD (coronary artery disease): PTT this morning was 70.3 seconds, INR 1.1. Continue heparin bridge to Coumadin, with planned dose of 2.5 mg daily. Patient agreeable to Coumadin treatment. As previously noted, due to her history of moderate mitral stenosis, I do believe that Coumadin is the anticoagulant of choice for her rather than a direct oral anticoagulant. She had previously been on chronic dual antiplatelet therapy with aspirin and clopidogrel due to her multiple PCI's, the most recent of which took place over a year ago in December 2017. We will plan to move forward with dual therapy clopidogrel plus Coumadin. Aspirin has been discontinued. Regarding pericardial effusion, continue prednisone, plus PPI for GI prophylaxis. The limited echo has been requested and will be reviewed to see if her pericardial effusion has improved at all. Subjective Patient feeling well. Denies chest discomfort or shortness of breath. Telemetry reveals stable atrial fibrillation in the range of 69 to 75 bpm. Review of Systems Review of Systems: All systems reviewed & are unremarkable except as noted in HPI & below Cardiovascular: no chest pain, no dyspnea and no dyspnea at rest Physical Exam Physical Exam: Temp Pulse Resp BP Pulse Ox 36.8 C 84 20 131/68 96 03/17/19 08:07 03/17/19 08:07 03/17/19 08:07 03/17/19 08:07 03/17/19 08:07 Constitutional: WD/WN, vitals as above Respiratory: normal respiratory effort, lungs clear to auscultation Cardiovascular: Rate/Rhythm: + irregularly irregular; not tachycardic Heart Sounds: + murmur (I/ systolic and diastolic murmur) Gastrointestinal (Abdomen): normal bowel sounds, soft, nontender, no hepatosplenomegaly Neurologic: PERRL, EOMI, accommodation nl, no face palsy, no dysarthria Results & Data Vital Signs (Past 12 Hours) Vital Signs Temp Pulse Pulse Pulse Resp BP Pulse Ox 03/17/19 08:07 36.8 C 84 20 131/68 96 03/17/19 05:37 36.9 C 81 18 117/74 94 03/17/19 00:47 85 03/16/19 23:25 36.4 C L 89 20 129/84 95 (1) CAD (coronary artery disease) Coronary Disease-Associated Artery/Lesion type: [place] artery [place] vs. transplanted heart: [place] heart Associated angina: without angina Qualified Code(s): I25.10 - Atherosclerotic heart disease of [place] coronary artery without angina pectoris
[2019-03-17] MEDS ORDERED: ALBUMIN 25% 50 ML IV ONE (11:15)
[2019-03-17 15:13] LABS: Partial Thromboplastin Ratio 2.7
[2019-03-17] MEDS: WARFARIN SOD 2.5 MG TAB PO SCH (16:02)
[2019-03-17] MEDS: HEPARIN SODIUM/DEXTROSE 25,000 UNITS/500 ML BAG IV SCH (16:03)
[2019-03-17 23:46] LABS: Partial Thromboplastin Ratio 2.4
[2019-03-17 23:50] LABS: Partial Thromboplastin Time 63.8 Seconds (21.0-31.0)
[2019-03-18] MEDS: LEVOTHYROXINE SODIUM 50 MCG TABLET PO SCH (06:14)
[2019-03-18 06:30] LABS: Hematocrit (blood only) 31.8 % (37-47); Hemoglobin 10.3 g/dL (12.0-16.0); Mean Corpuscular Hemoglobin 29.7 pg (25-34); Mean Corpuscular Hgb Conc 32.4 g/dL (32-36); Mean Corpuscular Volume 91.6 fL (80-100); Mean Platelet Volume 10.2 fL (7.4-10.4); Platelet Count 292 K/uL (130-400); RDW Standard Deviation 46.4 fL (36.4-46.3); Red Blood Count 3.47 M/uL (4.2-5.4); White Blood Count 5.76 K/uL (4.8-10.8)
[2019-03-18 06:47] LABS: INR 1.1 (0.9-1.1); Partial Thromboplastin Ratio 2.2; Prothrombin Time 11.6 Seconds (9.0-12.0)
[2019-03-18 06:50] LABS: BUN Creatinine Ratio 18.7 (10-20); Calcium 8.7 mg/dl (8.5-10.1); Creatinine Clr Calc Pharmacy 62.3 ml/min; Est GFR (African American) 81.9; Est GFR (Non-African American) 70.7; Potassium 3.4 mmol/L (3.5-5.1)
[2019-03-18 06:58] LABS: Partial Thromboplastin Time 60.4 Seconds (21.0-31.0)
[2019-03-18] MEDS: CLOPIDOGREL BISULFATE 75 MG TAB PO SCH (07:28)
[2019-03-18] MEDS: METOPROLOL SUCC 25MG EXT REL TAB PO SCH ×2 (07:28→21:24)
[2019-03-18] MEDS: CITALOPRAM 40 MG TAB PO SCH (07:28)
[2019-03-18] MEDS: FERROUS SULFATE 325 MG TAB PO SCH ×2 (07:29→21:24)
[2019-03-18] MEDS: predniSONE 20 MG TAB PO SCH (07:29)
[2019-03-18] MEDS: CYANOCOBALAMIN 500 MCG TABLET (VITAMIN B-12) PO SCH (07:30)
[2019-03-18] MEDS: COLCHICINE 0.6 MG TAB PO SCH ×2 (07:30→21:24)
[2019-03-18] MEDS: PANTOprazole 40 MG TAB PO SCH (07:30)
[2019-03-18] MEDS: FLINTSTONES COMPLETE CHEWABLE TAB PO SCH (07:30)
[2019-03-18] MEDS: INSULIN GLARGINE SOLOSTAR 100 UNITS/ML 3 ML PEN SQ SCH (07:33)
[2019-03-18] MEDS: INSULIN ASPART 100 UNITS/ML 3 ML PEN SC SCH ×4 (07:45→21:25)
[2019-03-18] MEDS ORDERED: POTASSIUM CHLORIDE 20 MEQ TABCR PO STA (07:59)
--- NOTE | 2019-03-18 07:59 | Hospitalist Progress Note ---
Date of Service March 18, 2019 Assessment & Plan (1) New onset atrial fibrillation: -Patient presenting from home with reports of increasing exertional chest pain and shortness of breath -In the ED, EKG demonstrates rate controlled atrial fibrillation, new onset for the patient - on metoprolol succinate 25 mg daily, HR remains controlled -[id number] score 6;low pt started on low dose Coumadin (patient will need to be set up with anticoagulation clinic) - on IV heparin bridge goal INR 2-3 , current INR 1.1 monitor closely for increased risk of Hemorrhagic conversion of pericardial effusion -Pacer interrogation: reveals that she has been in atrial fibrillation for just over 2 weeks with onset having been on 02/25/2019. -Recent resting echo 02/01/2019-EF 55 to 59%, mild aortic valve stenosis, moderate mitral stenosis, mild tricuspid regurgitation -Keep K~4, Mag~2, replete and monitor hypokalemia and hypomagnesemia -Cardiology consult, input appreciated -Continue Coumadin and clopidogrel, aspirin was discontinued - Telemetry reviewed - pt cont. to be in Afib w/ HR 60-70s PERICARDIAL EFFUSION : An echocardiogram: normal LV wall motion and normal LVEF with findings of moderate mitral stenosis and mild aortic valve stenosis unchanged compared to last month. - Echo repeated (03/17/2019) -to visualize pericardial effusion - per cardiology started colchicine, prednisone, omeprazole for GI prophylaxis , (will need 6 weeks of prolonged prednisone taper) She is not a candidate for high-dose aspirin or other nonsteroidal anti- inflammatory medication due to baseline CKD stage 3 -Also received IV albumin per cardiology (2) Chest pain: (3) CAD (coronary artery disease): no complain of SOB or angina symptom -Patient presented with increasing exertional chest pain or shortness of breath, found to be in new onset rate controlled atrial fibrillation -History of coronary disease, status post multiple coronary interventions in the past with most recent being 12/2017 -serial troponin negative appreciate cardiology eval; cont cardiac meds (4) Leg edema: -Lower extremity edema, R>L (chronic per patient), noted on exam -BL LE venous Doppler-negative for DVT -Recent echo report as above (5) DM type 2 (diabetes mellitus, type 2): -Hgb A1c 7.5 02/2019 -Continue home dose of Lantus, add on NovoLog per protocol while hospitalized (6) MDS (myelodysplastic syndrome): -Baseline hemoglobin ~ 10-11 -Noted to be 10.1 0n 03/16/2019 - will cont. to monitor (7) Hypothyroidism: -Continue with levothyroxine - TSH 6.5 on 02/22 (8) Depression: -Continue citalopram (9) DVT prophylaxis: IV heparin /coumadin CODE STATUS : DNR/DNI DISPOSITION: lives at home with son active with [facility] and [facility] PT/OT eval requested Subjective No acute events overnight. Patient is sitting on the bed, with family and friends at the bedside. Denies any chest pain, shortness of breath at rest however says that she gets somewhat short of breath with exertion, says she did about 75 steps today. No abdominal pain, nausea or vomiting. Continue IV heparin INR 1.1 Replete K Review of Systems Review of Systems: All systems reviewed & are unremarkable except as noted in HPI & below Constitutional: no fever and no chills Respiratory: no cough, no dyspnea and no pain on inspiration Cardiovascular: no chest pain, no palpitations and no edema Gastrointestinal: no abdominal pain, no nausea and no vomiting Physical Exam Physical Exam: Constitutional: Elderly female sitting up on bed, in no acute distress, on IV heparin Eyes: PERRL, EOMI,conjunctivae normal, anicteric sclerae ENMT: external ear and nose normal, oropharynx normal Respiratory: normal respiratory effort, lungs clear to auscultation, no wheezing, rhonchi or crackles Cardiovascular: Rate/Rhythm: regular rate and + irregularly irregular Vessels: normal peripheral pulses Extremities: + edema (+1-2 edema BLE, R>L) Gastrointestinal (Abdomen): normal bowel sounds, soft, nontender, nondistended, no guarding Musculoskeletal: no cyanosis or clubbing, extremities motor strength 5/5, moves all 4 extremities spontaneously Skin: no rashes, warm and dry Neurologic: PERRL, EOMI, accommodation nl, no face palsy, no dysarthria, moves all 4 extremities spontaneously Psychiatric: A+Ox3, euthymic affect Cognition: + remote memory not intact Insight: + limited insight Results & Data Vital Signs (Past 12 Hours) Vital Signs Temp Pulse Pulse Resp BP Pulse Ox 03/18/19 07:30 36.7 C 82 20 112/68 96 03/18/19 03:44 36.9 C 68 18 93/61 L 96 03/18/19 00:00 80 03/17/19 23:55 36.5 C 80 18 115/72 96 Laboratory Results 03/18/19 03/18/19 03/18/19 Range/Units 07:03 06:02 06:02 WBC (4.8-10.8) K/uL RBC (4.2-5.4) M/uL Hgb (12.0-16.0) g/dL Hct (37-47) % MCV (80-100) fL MCH (25-34) pg MCHC (32-36) g/dL RDW Std Deviation (36.4-46.3) fL RDW Coeff of [place] (11.5-14.5) % Plt Count (130-400) K/uL MPV (7.4-10.4) fL PT 11.6 (9.0-12.0) Seconds INR 1.1 (0.9-1.1) APTT 60.4 H* (21.0-31.0) Seconds PTT Ratio 2.2 Sodium 139 (136-145) mmol/L Potassium 3.4 L (3.5-5.1) mmol/L Chloride 107 (98-107) mmol/L Carbon Dioxide 30 (21-32) mmol/L Anion Gap 2.0 L (3-11) BUN 15 (7-18) mg/dl Creatinine 0.79 (0.6-1.2) mg/dl Est Cr Clr Drug Dosing 62.3 ml/min Est GFR ( Amer) 81.9 Est GFR (Non-Af Amer) 70.7 BUN/Creatinine Ratio 18.7 (10-20) Glucose 100 H (70-99) mg/dl POC Glucose 130 H (70-99) Calcium 8.7 (8.5-10.1) mg/dl Magnesium (1.8-2.4) mg/dl TSH (0.300-4.500) uIu/ml 03/18/19 03/17/19 03/17/19 Range/Units 06:02 22:45 20:19 WBC 5.76 (4.8-10.8) K/uL RBC 3.47 L (4.2-5.4) M/uL Hgb 10.3 L (12.0-16.0) g/dL Hct 31.8 L (37-47) % MCV 91.6 (80-100) fL MCH 29.7 (25-34) pg MCHC 32.4 (32-36) g/dL RDW Std Deviation 46.4 H (36.4-46.3) fL RDW Coeff of [place] 14.0 (11.5-14.5) % Plt Count 292 (130-400) K/uL MPV 10.2 (7.4-10.4) fL PT (9.0-12.0) Seconds INR (0.9-1.1) APTT 63.8 H* (21.0-31.0) Seconds PTT Ratio 2.4 Sodium (136-145) mmol/L Potassium (3.5-5.1) mmol/L Chloride (98-107) mmol/L Carbon Dioxide (21-32) mmol/L Anion Gap (3-11) BUN (7-18) mg/dl Creatinine (0.6-1.2) mg/dl Est Cr Clr Drug Dosing ml/min Est GFR ( Amer) Est GFR (Non-Af Amer) BUN/Creatinine Ratio (10-20) Glucose (70-99) mg/dl POC Glucose 231 H (70-99) Calcium (8.5-10.1) mg/dl Magnesium (1.8-2.4) mg/dl TSH (0.300-4.500) uIu/ml 03/17/19 03/17/19 03/17/19 Range/Units 16:12 14:32 11:53 WBC (4.8-10.8) K/uL RBC (4.2-5.4) M/uL Hgb (12.0-16.0) g/dL Hct (37-47) % MCV (80-100) fL MCH (25-34) pg MCHC (32-36) g/dL RDW Std Deviation (36.4-46.3) fL RDW Coeff of [place] (11.5-14.5) % Plt Count (130-400) K/uL MPV (7.4-10.4) fL PT (9.0-12.0) Seconds INR (0.9-1.1) APTT 72.0 H* (21.0-31.0) Seconds PTT Ratio 2.7 Sodium (136-145) mmol/L Potassium (3.5-5.1) mmol/L Chloride (98-107) mmol/L Carbon Dioxide (21-32) mmol/L Anion Gap (3-11) BUN (7-18) mg/dl Creatinine (0.6-1.2) mg/dl Est Cr Clr Drug Dosing ml/min Est GFR ( Amer) Est GFR (Non-Af Amer) BUN/Creatinine Ratio (10-20) Glucose (70-99) mg/dl POC Glucose 296 H 294 H (70-99) Calcium (8.5-10.1) mg/dl Magnesium (1.8-2.4) mg/dl TSH (0.300-4.500) uIu/ml 03/17/19 03/17/19 03/17/19 Range/Units 07:41 07:05 07:05 WBC (4.8-10.8) K/uL RBC (4.2-5.4) M/uL Hgb (12.0-16.0) g/dL Hct (37-47) % MCV (80-100) fL MCH (25-34) pg MCHC (32-36) g/dL RDW Std Deviation (36.4-46.3) fL RDW Coeff of [place] (11.5-14.5) % Plt Count (130-400) K/uL MPV (7.4-10.4) fL PT 11.4 (9.0-12.0) Seconds INR 1.1 (0.9-1.1) APTT 70.3 H* (21.0-31.0) Seconds PTT Ratio 2.6 Sodium 142 (136-145) mmol/L Potassium 3.2 L (3.5-5.1) mmol/L Chloride 106 (98-107) mmol/L Carbon Dioxide 29 (21-32) mmol/L Anion Gap 7.0 (3-11) BUN 15 (7-18) mg/dl Creatinine 0.88 (0.6-1.2) mg/dl Est Cr Clr Drug Dosing 55.7 ml/min Est GFR ( Amer) 71.9 Est GFR (Non-Af Amer) 62.1 BUN/Creatinine Ratio 16.5 (10-20) Glucose 117 H (70-99) mg/dl POC Glucose (70-99) Calcium 8.8 (8.5-10.1) mg/dl Magnesium 1.8 (1.8-2.4) mg/dl TSH 1.630 (0.300-4.500) uIu/ml Medications Administered Current Inpatient Medications Acetaminophen (Tylenol) 650 mg PO Q4H PRN PRN Reason: Pain or Fever Stop: 04/12/19 15:31 Last Admin: 03/17/19 08:27 Dose: 650 mg Documented by: Citalopram Hydrobromide (Celexa) 40 mg PO DAILY [facility] Stop: 04/13/19 08:59 Last Admin: 03/18/19 07:28 Dose: 40 mg Documented by: Clopidogrel Bisulfate (Plavix) 75 mg PO QAM [facility] Stop: 04/13/19 08:59 Last Admin: 03/18/19 07:28 Dose: 75 mg Documented by: Colchicine (Colcrys) 0.6 mg PO BID [facility] Stop: 04/13/19 09:14 Last Admin: 03/18/19 07:30 Dose: 0.6 mg Documented by: Cyanocobalamin (Vitamin B-12) 500 mcg PO QAM [facility] Stop: 04/13/19 08:59 Last Admin: 03/18/19 07:30 Dose: 500 mcg Documented by: Dextrose (Dextrose 50%) 25 - 50 ml IV UD PRN; Protocol PRN Reason: Hypoglycemia Protocol Stop: 04/12/19 15:31 Ferrous Sulfate (Feosol) 325 mg PO BID [facility] Stop: 04/12/19 20:59 Last Admin: 03/18/19 07:29 Dose: 325 mg Documented by: Glucagon (Glucagen) 1 mg SQ UD PRN; Protocol PRN Reason: Hypoglycemia Protocol Stop: 04/12/19 15:31 Glucose (Dex4 Glucose) 4 - 8 tabs PO UD PRN; Protocol PRN Reason: Hypoglycemia Protocol Stop: 04/12/19 15:31 Glucose (Glucose 40%) 15 - 30 gm PO UD PRN; Protocol PRN Reason: Hypoglycemia Protocol Stop: 04/12/19 15:31 Heparin Sodium/Dextrose (Heparin Sodium/Dextrose) 25,000 units in 500 mls @ 25 mls/hr IV .Q20H [facility]; Protocol Stop: 04/12/19 15:31 Last Titration: 03/18/19 07:17 Dose: 1,250 units/hr, 25 mls/hr Documented by: Insulin Aspart (Novolog Flexpen) 0 units SC ACHS [facility] Stop: 04/12/19 16:29 Last Admin: 03/18/19 07:45 Dose: 5 units Documented by: Insulin Glargine (Lantus Solostar Pen) 14 units SQ QAM [facility] Stop: 04/15/19 08:59 Last Admin: 03/18/19 07:33 Dose: 14 units Documented by: Levothyroxine Sodium (Synthroid) 50 mcg PO DAILYBB [facility] Stop: 04/13/19 06:29 Last Admin: 03/18/19 06:14 Dose: 50 mcg Documented by: Metoprolol Succinate (Toprol Xl) 25 mg PO BID [facility] Stop: 04/14/19 20:59 Last Admin: 03/18/19 07:28 Dose: 25 mg Documented by: Miscellaneous (Carbohydrates For Hypoglycemia) 15 - 30 gm PO UD PRN PRN Reason: Hypoglycemia Protocol Stop: 04/12/19 15:31 Last Admin: 03/15/19 20:18 Dose: 15 gm Documented by: Multivitamins/Folic Acid/Vitamin C (Flintstones Complete Chew Tab) 1 tab PO QAM [facility] Stop: 04/13/19 08:59 Last Admin: 03/18/19 07:30 Dose: 1 tab Documented by: Nitroglycerin (Nitrostat) 0.4 mg SL UD PRN PRN Reason: Chest Pain Stop: 04/12/19 15:31 Pantoprazole Sodium (Protonix) 40 mg PO DAILY [facility] Stop: 04/13/19 08:59 Last Admin: 03/18/19 07:30 Dose: 40 mg Documented by: Potassium Chloride (Klor-Con M20) 40 meq PO NOW STA Stop: 03/18/19 08:00 Prednisone (Prednisone) 20 mg PO DAILY [facility] Stop: 04/14/19 08:59 Last Admin: 03/18/19 07:29 Dose: 20 mg Documented by: Warfarin Sodium (Coumadin) 2.5 mg PO DAILY@1600 [facility] Stop: 04/14/19 15:59 Last Admin: 03/17/19 16:02 Dose: 2.5 mg Documented by: (1) CAD (coronary artery disease) Associated angina: without angina Coronary Disease-Associated Artery/Lesion type: [place] artery [place] vs. transplanted heart: [place] heart Qualified Code(s): I25.10 - Atherosclerotic heart disease of [place] coronary artery without angina pectoris
--- NOTE | 2019-03-18 10:47 | Cardiology Progress Note ---
Date of Service March 18, 2019 Assessment & Plan (1) New onset atrial fibrillation: (2) Mitral stenosis: (3) Pericardial effusion: (4) CAD (coronary artery disease): INR remains below goal at 1.1. Will increase Coumadin with cautious to 5 mg by mouth daily. Continue Protonix for GI prophylaxis. Regarding coronary heart disease, aspirin has been discontinued, continue clopidogrel plus heparin bridge to Coumadin. Echocardiogram performed yesterday revealed an ongoing moderate pericardial effusion unchanged compared to previously this hospital stay. No tamponade physiology. Patient is on colchicine, prednisone 20 mg with plan to taper over a 6-week interval from 20 mg down to 2.5 mg daily. A dose of IV albumin was administered yesterday due to pericardial effusion in the setting of low serum albumin. This of course is not evidence-based, but anecdotally can help improve the pericardial effusion, and will administer another dose of IV albumin today. Subjective Chief complaint: Follow-up chest pain, shortness of breath Subjective: Patient feeling well. Denies any subjective palpitations. Denies chest discomfort. Telemetry reveals ongoing atrial fibrillation in the range of 60-80 bpm. Review of Systems Review of Systems: All systems reviewed & are unremarkable except as noted in HPI & below Physical Exam Physical Exam: Temp Pulse Resp BP Pulse Ox 36.7 C 83 20 112/68 96 03/18/19 07:30 03/18/19 08:00 03/18/19 07:30 03/18/19 07:30 03/18/19 07:30 Constitutional: WD/WN, vitals as above Respiratory: normal respiratory effort, lungs clear to auscultation Cardiovascular: Rate/Rhythm: + irregularly irregular Heart Sounds: + murmur (2/6 Systolic and diastolic murmur ) Vessels: no JVD Skin: no rashes, warm and dry Neurologic: PERRL, EOMI, accommodation nl, no face palsy, no dysarthria Results & Data Vital Signs (Past 12 Hours) Vital Signs Temp Pulse Pulse Resp BP Pulse Ox 03/18/19 08:00 83 03/18/19 07:30 36.7 C 82 20 112/68 96 03/18/19 03:44 36.9 C 68 18 93/61 L 96 03/18/19 00:00 80 03/17/19 23:55 36.5 C 80 18 115/72 96 Laboratory Results Hemoglobin 10.3 INR 1.1 Medications Administered Current Inpatient Medications Acetaminophen (Tylenol) 650 mg PO Q4H PRN PRN Reason: Pain or Fever Stop: 04/12/19 15:31 Last Admin: 03/17/19 08:27 Dose: 650 mg Documented by: Citalopram Hydrobromide (Celexa) 40 mg PO DAILY [facility] Stop: 04/13/19 08:59 Last Admin: 03/18/19 07:28 Dose: 40 mg Documented by: Clopidogrel [facility]ate ([facility]avix) [facility] [place] Stop: 04/13/19 08:59 Last Admin: 03/18/19 07:28 Dose: 75 mg Documented by: Colchicine (Colcrys) 0.6 mg PO BID [facility] Stop: 04/13/19 09:14 Last Admin: 03/18/19 07:30 Dose: 0.6 mg Documented by: Cyanocobalamin (Vitamin B-12) 500 mcg PO [facility] Stop: 04/13/19 08:59 Last Admin: 03/18/19 07:30 Dose: 500 mcg Documented by: Dextrose (Dextrose 50%) 25 - 50 ml IV UD PRN; Protocol PRN Reason: Hypoglycemia Protocol Stop: 04/12/19 15:31 Ferrous Sulfate (Feosol) 325 mg PO BID [facility] Stop: 04/12/19 20:59 Last Admin: 03/18/19 07:29 Dose: 325 mg Documented by: Glucagon (Glucagen) 1 mg SQ UD PRN; Protocol PRN Reason: Hypoglycemia Protocol Stop: 04/12/19 15:31 Glucose (Dex4 Glucose) 4 - 8 tabs PO UD PRN; Protocol PRN Reason: Hypoglycemia Protocol Stop: 04/12/19 15:31 Glucose (Glucose 40%) 15 - 30 gm PO UD PRN; Protocol PRN Reason: Hypoglycemia Protocol Stop: 04/12/19 15:31 Heparin Sodium/Dextrose (Heparin Sodium/Dextrose) 25,000 units in 500 mls @ 25 mls/hr IV .Q20H [facility]; Protocol Stop: 04/12/19 15:31 Last Titration: 03/18/19 07:17 Dose: 1,250 units/hr, 25 mls/hr Documented by: Albumin Human (Albumin 25%) 50 mls @ 50 mls/hr IV ONE ONE Stop: 03/18/19 11:46 Insulin Aspart (Novolog Flexpen) 0 units SC ACHS [facility] Stop: 04/12/19 16:29 Last Admin: 03/18/19 07:45 Dose: 5 units Documented by: Insulin Glargine (Lantus Solostar Pen) 14 units SQ QAM [facility] Stop: 04/15/19 08:59 Last Admin: 03/18/19 07:33 Dose: 14 units Documented by: Levothyroxine Sodium (Synthroid) 50 mcg PO DAILYBB [facility] Stop: 04/13/19 06:29 Last Admin: 03/18/19 06:14 Dose: 50 mcg Documented by: Metoprolol Succinate (Toprol Xl) 25 mg PO BID [facility] Stop: 04/14/19 20:59 Last Admin: 03/18/19 07:28 Dose: 25 mg Documented by: Miscellaneous (Carbohydrates For Hypoglycemia) 15 - 30 gm PO UD PRN PRN Reason: Hypoglycemia Protocol Stop: 04/12/19 15:31 Last Admin: 03/15/19 20:18 Dose: 15 gm Documented by: Multivitamins/Folic Acid/Vitamin C (Flintstones Complete Chew Tab) 1 tab PO QAM [facility] Stop: 04/13/19 08:59 Last Admin: 03/18/19 07:30 Dose: 1 tab Documented by: Nitroglycerin (Nitrostat) 0.4 mg SL UD PRN PRN Reason: Chest Pain Stop: 04/12/19 15:31 Pantoprazole Sodium (Protonix) 40 mg PO DAILY [facility] Stop: 04/13/19 08:59 Last Admin: 03/18/19 07:30 Dose: 40 mg Documented by: Prednisone (Prednisone) 20 mg PO DAILY [facility] Stop: 04/14/19 08:59 Last Admin: 03/18/19 07:29 Dose: 20 mg Documented by: Warfarin Sodium (Coumadin) 5 mg PO DAILY@1600 [facility] Stop: 04/17/19 15:59 (1) CAD (coronary artery disease) Coronary Disease-Associated Artery/Lesion type: [place] artery [place] vs. transplanted heart: [place] heart Associated angina: without angina Qualified Code(s): I25.10 - Atherosclerotic heart disease of [place] coronary artery without angina pectoris
[2019-03-18] MEDS ORDERED: ALBUMIN 25% 50 ML IV ONE (11:05)
[2019-03-18] MEDS: HEPARIN SODIUM/DEXTROSE 25,000 UNITS/500 ML BAG IV SCH (12:18)
[2019-03-18] MEDS: WARFARIN SOD 5 MG TAB PO SCH (16:10)
[2019-03-19] MEDS: LEVOTHYROXINE SODIUM 50 MCG TABLET PO SCH (05:56)
[2019-03-19 06:07] LABS: Hematocrit (blood only) 31.8 % (37-47); Hemoglobin 9.9 g/dL (12.0-16.0); Mean Corpuscular Hemoglobin 29.3 pg (25-34); Mean Corpuscular Hgb Conc 31.1 g/dL (32-36); Mean Corpuscular Volume 94.1 fL (80-100); Mean Platelet Volume 10.2 fL (7.4-10.4); Platelet Count 287 K/uL (130-400); RDW Standard Deviation 47.8 fL (36.4-46.3); Red Blood Count 3.38 M/uL (4.2-5.4); White Blood Count 5.71 K/uL (4.8-10.8)
[2019-03-19 06:26] LABS: INR 1.2 (0.9-1.1); Prothrombin Time 11.9 Seconds (9.0-12.0)
[2019-03-19 06:31] LABS: Partial Thromboplastin Time 54.7 Seconds (21.0-31.0)
[2019-03-19 06:36] LABS: BUN Creatinine Ratio 17.1 (10-20); Calcium 8.7 mg/dl (8.5-10.1); Creatinine Clr Calc Pharmacy 58.7 ml/min; Est GFR (African American) 76.1; Est GFR (Non-African American) 65.6
[2019-03-19 07:40] LABS: Magnesium 1.9 mg/dl (1.8-2.4)
[2019-03-19] MEDS: HEPARIN SODIUM/DEXTROSE 25,000 UNITS/500 ML BAG IV SCH (08:01)
[2019-03-19] MEDS: INSULIN ASPART 100 UNITS/ML 3 ML PEN SC SCH ×4 (08:02→20:33)
[2019-03-19] MEDS: INSULIN GLARGINE SOLOSTAR 100 UNITS/ML 3 ML PEN SQ SCH (08:03)
[2019-03-19] MEDS: FERROUS SULFATE 325 MG TAB PO SCH ×2 (08:06→20:32)
[2019-03-19] MEDS: FLINTSTONES COMPLETE CHEWABLE TAB PO SCH (08:07)
[2019-03-19] MEDS: CITALOPRAM 40 MG TAB PO SCH (08:07)
[2019-03-19] MEDS: predniSONE 20 MG TAB PO SCH (08:07)
[2019-03-19] MEDS: CYANOCOBALAMIN 500 MCG TABLET (VITAMIN B-12) PO SCH (08:07)
[2019-03-19] MEDS: PANTOprazole 40 MG TAB PO SCH (08:07)
[2019-03-19] MEDS: CLOPIDOGREL BISULFATE 75 MG TAB PO SCH (08:07)
[2019-03-19] MEDS: METOPROLOL SUCC 25MG EXT REL TAB PO SCH ×2 (08:10→20:32)
[2019-03-19] MEDS: COLCHICINE 0.6 MG TAB PO SCH ×2 (08:18→20:32)
--- NOTE | 2019-03-19 09:20 | Hospitalist Progress Note ---
Date of Service March 19, 2019 Assessment & Plan (1) New onset atrial fibrillation: -Patient presenting from home with reports of increasing exertional chest pain and shortness of breath -In the ED, EKG demonstrates rate controlled atrial fibrillation, new onset for the patient - on metoprolol succinate 25 mg daily, HR remains controlled -[id number] score 6;low pt started on low dose Coumadin (patient will need to be set up with anticoagulation clinic) - on IV heparin bridge goal INR 2-3 , current INR 1.2 monitor closely for increased risk of Hemorrhagic conversion of pericardial effusion -Pacer interrogation: reveals that she has been in atrial fibrillation for just over 2 weeks with onset having been on 02/25/2019. -Recent resting echo 02/01/2019-EF 55 to 59%, mild aortic valve stenosis, modera te mitral stenosis, mild tricuspid regurgitation -Keep K~4, Mag~2, replete and monitor hypokalemia and hypomagnesemia -Cardiology consult, input appreciated -Continue Coumadin and clopidogrel, aspirin was discontinued - Telemetry reviewed - pt cont. to be in Afib w/ HR 60-70s PERICARDIAL EFFUSION : An echocardiogram: normal LV wall motion and normal LVEF with findings of moderate mitral stenosis and mild aortic valve stenosis unchanged compared to last month. - Echo repeated (03/17/2019) -to visualize pericardial effusion - per cardiology started colchicine, prednisone, omeprazole for GI prophylaxis , (will need 6 weeks of prolonged prednisone taper) She is not a candidate for high-dose aspirin or other nonsteroidal anti- inflammatory medication due to baseline CKD stage 3 -Also received IV albumin per cardiology (2) Chest pain: (3) CAD (coronary artery disease): no complain of SOB or angina symptom -Patient presented with increasing exertional chest pain or shortness of breath, found to be in new onset rate controlled atrial fibrillation -History of coronary disease, status post multiple coronary interventions in the past with most recent being 12/2017 -serial troponin negative appreciate cardiology eval; cont cardiac meds (4) Leg edema: -Lower extremity edema, R>L (chronic per patient), noted on exam -BL LE venous Doppler-negative for DVT -Recent echo report as above (5) DM type 2 (diabetes mellitus, type 2): -Hgb A1c 7.5 02/2019 -Continue home dose of Lantus, add on NovoLog per protocol while hospitalized (6) MDS (myelodysplastic syndrome): -Baseline hemoglobin ~ 10-11 -Noted to be 9.9 on 03/19/2019 - will cont. to monitor (7) Hypothyroidism: -Continue with levothyroxine - TSH 6.5 on 02/22 (8) Depression: -Continue citalopram (9) DVT prophylaxis: IV heparin /coumadin CODE STATUS : DNR/DNI DISPOSITION: lives at home with son active with [employer] and [employer] PT/OT eval requested Subjective No acute events overnight, she feels well, denies any chest pain, shortness of breath, palpitations. Also denies any abdominal pain, nausea or vomiting. Family at the bedside. Discussed Coumadin again and her other medications that she will be discharged on (prednisone taper and colchicine). Telemetry: rate controlled atrial fibrillation mostly in 60-70s. Review of Systems Review of Systems: All systems reviewed & are unremarkable except as noted in HPI & below Constitutional: no fever and no chills Respiratory: no cough, no dyspnea and no pain on inspiration Cardiovascular: no chest pain, no palpitations and no edema Gastrointestinal: no abdominal pain, no nausea and no vomiting Physical Exam Physical Exam: Constitutional: Elderly female laying in bed, in no acute distress, on IV heparin Eyes: PERRL, EOMI,conjunctivae normal, anicteric sclerae ENMT: external ear and nose normal, oropharynx normal Respiratory: normal respiratory effort, lungs clear to auscultation, no wheezing, rhonchi or crackles Cardiovascular: Rate/Rhythm: regular rate and + irregularly irregular Vessels: normal peripheral pulses Extremities: + edema (+1-2 edema BLE, R>L) Gastrointestinal (Abdomen): normal bowel sounds, soft, nontender, nondistended, no guarding Musculoskeletal: no cyanosis or clubbing, extremities motor strength 5/5, moves all 4 extremities spontaneously Skin: no rashes, warm and dry Neurologic: PERRL, EOMI, accommodation nl, no face palsy, no dysarthria, moves all 4 extremities spontaneously Psychiatric: A+Ox3, euthymic affect Cognition: + remote memory not intact Insight: + limited insight Results & Data Vital Signs (Past 12 Hours) Vital Signs Temp Pulse Pulse Resp BP Pulse Ox 03/19/19 08:10 36.7 C 68 20 115/67 92 03/19/19 04:19 36.8 C 80 18 108/66 94 03/19/19 00:25 36.8 C 91 H 18 109/68 96 Laboratory Results 03/19/19 03/19/19 03/19/19 Range/Units 08:01 06:50 05:34 WBC (4.8-10.8) K/uL RBC (4.2-5.4) M/uL Hgb (12.0-16.0) g/dL Hct (37-47) % MCV (80-100) fL MCH (25-34) pg MCHC (32-36) g/dL RDW Std Deviation (36.4-46.3) fL RDW Coeff of [place]aston (11.5-14.5) % Plt Count (130-400) K/uL MPV (7.4-10.4) fL PT (9.0-12.0) Seconds INR (0.9-1.1) APTT (21.0-31.0) Seconds PTT Ratio Sodium 140 (136-145) mmol/L Potassium 4.0 D (3.5-5.1) mmol/L Chloride 108 H (98-107) mmol/L Carbon Dioxide 26 (21-32) mmol/L Anion Gap 6.0 (3-11) BUN 14 (7-18) mg/dl Creatinine 0.84 (0.6-1.2) mg/dl Est Cr Clr Drug Dosing 58.7 ml/min Est GFR ( Amer) 76.1 Est GFR (Non-Af Amer) 65.6 BUN/Creatinine Ratio 17.1 (10-20) Glucose 111 H (70-99) mg/dl POC Glucose 152 H (70-99) Calcium 8.7 (8.5-10.1) mg/dl Magnesium 1.9 (1.8-2.4) mg/dl 03/19/19 03/19/19 03/18/19 Range/Units 05:34 05:34 20:24 WBC 5.71 (4.8-10.8) K/uL RBC 3.38 L (4.2-5.4) M/uL Hgb 9.9 L (12.0-16.0) g/dL Hct 31.8 L (37-47) % MCV 94.1 (80-100) fL MCH 29.3 (25-34) pg MCHC 31.1 L (32-36) g/dL RDW Std Deviation 47.8 H (36.4-46.3) fL RDW Coeff of [place] 14.0 (11.5-14.5) % Plt Count 287 (130-400) K/uL MPV 10.2 (7.4-10.4) fL PT 11.9 (9.0-12.0) Seconds INR 1.2 H (0.9-1.1) APTT 54.7 H* (21.0-31.0) Seconds PTT Ratio 2.0 Sodium (136-145) mmol/L Potassium (3.5-5.1) mmol/L Chloride (98-107) mmol/L Carbon Dioxide (21-32) mmol/L Anion Gap (3-11) BUN (7-18) mg/dl Creatinine (0.6-1.2) mg/dl Est Cr Clr Drug Dosing ml/min Est GFR ( Amer) Est GFR (Non-Af Amer) BUN/Creatinine Ratio (10-20) Glucose (70-99) mg/dl POC Glucose 205 H (70-99) Calcium (8.5-10.1) mg/dl Magnesium (1.8-2.4) mg/dl 03/18/19 03/18/19 Range/Units 16:18 11:40 WBC (4.8-10.8) K/uL RBC (4.2-5.4) M/uL Hgb (12.0-16.0) g/dL Hct (37-47) % MCV (80-100) fL MCH (25-34) pg MCHC (32-36) g/dL RDW Std Deviation (36.4-46.3) fL RDW Coeff of Gaston (11.5-14.5) % Plt Count (130-400) K/uL MPV (7.4-10.4) fL PT (9.0-12.0) Seconds INR (0.9-1.1) APTT (21.0-31.0) Seconds PTT Ratio Sodium (136-145) mmol/L Potassium (3.5-5.1) mmol/L Chloride (98-107) mmol/L Carbon Dioxide (21-32) mmol/L Anion Gap (3-11) BUN (7-18) mg/dl Creatinine (0.6-1.2) mg/dl Est Cr Clr Drug Dosing ml/min Est GFR ( Amer) Est GFR (Non-Af Amer) BUN/Creatinine Ratio (10-20) Glucose (70-99) mg/dl POC Glucose 242 H 159 H (70-99) Calcium (8.5-10.1) mg/dl Magnesium (1.8-2.4) mg/dl Medications Administered Current Inpatient Medications Acetaminophen (Tylenol) 650 mg PO Q4H PRN PRN Reason: Pain or Fever Stop: 04/12/19 15:31 Last Admin: 03/17/19 08:27 Dose: 650 mg Documented by: Citalopram Hydrobromide (Celexa) 40 mg PO DAILY [facility] Stop: 04/13/19 08:59 Last Admin: 03/19/19 08:07 Dose: 40 mg Documented by: Clopidogrel Bisulfate (Plavix) 75 mg PO QAM [facility] Stop: 04/13/19 08:59 Last Admin: 03/19/19 08:07 Dose: 75 mg Documented by: Colchicine (Colcrys) 0.6 mg PO BID [facility] Stop: 04/13/19 09:14 Last Admin: 03/19/19 08:18 Dose: 0.6 mg Documented by: Cyanocobalamin (Vitamin B-12) 500 mcg PO QAM [facility] Stop: 04/13/19 08:59 Last Admin: 03/19/19 08:07 Dose: 500 mcg Documented by: Dextrose (Dextrose 50%) 25 - 50 ml IV UD PRN; Protocol PRN Reason: Hypoglycemia Protocol Stop: 04/12/19 15:31 Ferrous Sulfate (Feosol) 325 mg PO BID [facility] Stop: 04/12/19 20:59 Last Admin: 03/19/19 08:06 Dose: 325 mg Documented by: Glucagon (Glucagen) 1 mg SQ UD PRN; Protocol PRN Reason: Hypoglycemia Protocol Stop: 04/12/19 15:31 Glucose (Dex4 Glucose) 4 - 8 tabs PO UD PRN; Protocol PRN Reason: Hypoglycemia Protocol Stop: 04/12/19 15:31 Glucose (Glucose 40%) 15 - 30 gm PO UD PRN; Protocol PRN Reason: Hypoglycemia Protocol Stop: 04/12/19 15:31 Heparin Sodium/Dextrose (Heparin Sodium/Dextrose) 25,000 units in 500 mls @ 25 mls/hr IV .Q20H [facility]; Protocol Stop: 04/12/19 15:31 Last Admin: 03/19/19 08:01 Dose: 1,250 units/hr, 25 mls/hr Documented by: Insulin Aspart (Novolog Flexpen) 0 units SC ACHS [facility] Stop: 04/12/19 16:29 Last Admin: 03/19/19 08:02 Dose: 3 units Documented by: Insulin Glargine (Lantus Solostar Pen) 14 units SQ QAM [facility] Stop: 04/15/19 08:59 Last Admin: 03/19/19 08:03 Dose: 14 units Documented by: Levothyroxine Sodium (Synthroid) 50 mcg PO DAILYBB [facility] Stop: 04/13/19 06:29 Last Admin: 03/19/19 05:56 Dose: 50 mcg Documented by: Metoprolol Succinate (Toprol Xl) 25 mg PO BID [facility] Stop: 04/14/19 20:59 Last Admin: 03/19/19 08:10 Dose: 25 mg Documented by: Miscellaneous (Carbohydrates For Hypoglycemia) 15 - 30 gm PO UD PRN PRN Reason: Hypoglycemia Protocol Stop: 04/12/19 15:31 Last Admin: 03/15/19 20:18 Dose: 15 gm Documented by: Multivitamins/Folic Acid/Vitamin C (Flintstones Complete Chew Tab) 1 tab PO QAM [facility] Stop: 04/13/19 08:59 Last Admin: 03/19/19 08:07 Dose: 1 tab Documented by: Nitroglycerin (Nitrostat) 0.4 mg SL UD PRN PRN Reason: Chest Pain Stop: 04/12/19 15:31 Pantoprazole Sodium (Protonix) 40 mg PO DAILY [facility] Stop: 04/13/19 08:59 Last Admin: 03/19/19 08:07 Dose: 40 mg Documented by: Prednisone (Prednisone) 20 mg PO DAILY [facility] Stop: 04/14/19 08:59 Last Admin: 03/19/19 08:07 Dose: 20 mg Documented by: Warfarin Sodium (Coumadin) 5 mg PO DAILY@1600 [facility] Stop: 04/17/19 15:59 Last Admin: 01/03/20 16:10 Dose: 5 mg Documented by: (1) CAD (coronary artery disease) Coronary Disease-Associated Artery/Lesion type: [place] artery [place] vs. transplanted heart: [place] heart Associated angina: without angina Qualified Code(s): I25.10 - Atherosclerotic heart disease of [place] coronary artery without angina pectoris
--- NOTE | 2019-03-19 16:20 | Cardiology Progress Note ---
Date of Service March 19, 2019 Assessment & Plan (1) New onset atrial fibrillation: (2) Pericardial effusion: (3) Mitral stenosis: (4) CAD (coronary artery disease): Continue heparin bridge to Coumadin, INR 1.2 today. Coumadin dose had been increased to 5 mg daily as of yesterday. Continue colchicine and prednisone for pericardial effusion. Initial dose of prednisone had been on 03/15, will plan to taper down to 15 mg after 7 days of treatment, with a long slow tapering dose from 20 mg down to 2.5 mg over 6 weeks. With plans to discontinue after that. In terms of her coronary heart disease and history of multiple complex PCI procedures, continue clopidogrel, aspirin has been discontinued, with plans for chronic Coumadin plus clopidogrel. Continue Protonix for GI prophylaxis. Subjective Patient seen in follow-up. Feels well. She is sitting in bed, and her [id number] is visiting her. She did go for a walk today. Denies any chest discomfort or shortness of breath. Telemetry reveals rate controlled atrial fibrillation. Review of Systems Review of Systems: All systems reviewed & are unremarkable except as noted in HPI & below Physical Exam Physical Exam: Temp Pulse Resp BP Pulse Ox 37.0 C 74 18 113/73 95 03/19/19 15:04 03/19/19 15:04 03/19/19 15:04 03/19/19 15:04 03/19/19 15:04 Constitutional: WD/WN, vitals as above Respiratory: normal respiratory effort, lungs clear to auscultation Cardiovascular: Rate/Rhythm: + irregularly irregular Heart Sounds: + murmur (1/6 systolic and diastolic murmur) Vessels: no JVD Extremities: no edema Gastrointestinal (Abdomen): normal bowel sounds, soft, nontender, no hepatosplenomegaly Neurologic: PERRL, EOMI, accommodation nl, no face palsy, no dysarthria Results & Data Vital Signs (Past 12 Hours) Vital Signs Temp Pulse Pulse Resp BP Pulse Ox 03/19/19 15:04 37.0 C 74 18 113/73 95 03/19/19 12:00 37.0 C 91 H 20 97/67 L 93 03/19/19 08:10 36.7 C 68 20 115/67 92 03/19/19 04:19 36.8 C 80 18 108/66 94 (1) CAD (coronary artery disease) Associated angina: without angina Coronary Disease-Associated Artery/Lesion type: [place] artery [place] vs. transplanted heart: [place] heart Qualified Code(s): I25.10 - Atherosclerotic heart disease of [place] coronary artery without angina pectoris
[2019-03-19] MEDS: WARFARIN SOD 5 MG TAB PO SCH (17:00)
[2019-03-20] MEDS: HEPARIN SODIUM/DEXTROSE 25,000 UNITS/500 ML BAG IV SCH ×2 (02:30→23:47)
[2019-03-20] MEDS: LEVOTHYROXINE SODIUM 50 MCG TABLET PO SCH (05:43)
[2019-03-20 06:40] LABS: Hematocrit (blood only) 31.3 % (37-47); Hemoglobin 10.1 g/dL (12.0-16.0); Mean Corpuscular Hemoglobin 29.8 pg (25-34); Mean Corpuscular Hgb Conc 32.3 g/dL (32-36); Mean Corpuscular Volume 92.3 fL (80-100); Mean Platelet Volume 10.1 fL (7.4-10.4); Platelet Count 306 K/uL (130-400); RDW Coefficient of Variation 14.2 % (11.5-14.5); RDW Standard Deviation 47.1 fL (36.4-46.3); Red Blood Count 3.39 M/uL (4.2-5.4); White Blood Count 5.71 K/uL (4.8-10.8)
[2019-03-20 07:00] LABS: INR 1.4 (0.9-1.1); Partial Thromboplastin Ratio 2.8; Prothrombin Time 13.8 Seconds (9.0-12.0)
[2019-03-20 07:03] LABS: Partial Thromboplastin Time 75.5 Seconds (21.0-31.0)
[2019-03-20 07:15] LABS: BUN Creatinine Ratio 16.4 (10-20); Calcium 8.5 mg/dl (8.5-10.1); Creatinine Clr Calc Pharmacy 59.4 ml/min; Est GFR (African American) 77.2; Est GFR (Non-African American) 66.6; Magnesium 1.8 mg/dl (1.8-2.4); Potassium 3.7 mmol/L (3.5-5.1)
[2019-03-20] MEDS: CYANOCOBALAMIN 500 MCG TABLET (VITAMIN B-12) PO SCH (08:18)
[2019-03-20] MEDS: FLINTSTONES COMPLETE CHEWABLE TAB PO SCH (08:18)
[2019-03-20] MEDS: COLCHICINE 0.6 MG TAB PO SCH ×2 (08:18→20:56)
[2019-03-20] MEDS: FERROUS SULFATE 325 MG TAB PO SCH ×2 (08:18→20:56)
[2019-03-20] MEDS: predniSONE 20 MG TAB PO SCH (08:19)
[2019-03-20] MEDS: CITALOPRAM 40 MG TAB PO SCH (08:19)
[2019-03-20] MEDS: INSULIN GLARGINE SOLOSTAR 100 UNITS/ML 3 ML PEN SQ SCH (08:19)
[2019-03-20] MEDS: PANTOprazole 40 MG TAB PO SCH (08:19)
[2019-03-20] MEDS: CLOPIDOGREL BISULFATE 75 MG TAB PO SCH (08:19)
[2019-03-20] MEDS: INSULIN ASPART 100 UNITS/ML 3 ML PEN SC SCH ×4 (08:20→20:56)
[2019-03-20] MEDS: METOPROLOL SUCC 25MG EXT REL TAB PO SCH ×2 (08:26→20:56)
[2019-03-20] MEDS ORDERED: POTASSIUM CHLORIDE 20 MEQ TABCR PO STA (11:45)
--- NOTE | 2019-03-20 11:45 | Hospitalist Progress Note ---
Date of Service March 20, 2019 Assessment & Plan (1) New onset atrial fibrillation: -Patient presenting from home with reports of increasing exertional chest pain and shortness of breath -In the ED, EKG demonstrates rate controlled atrial fibrillation, new onset for the patient - on metoprolol succinate 25 mg daily, HR remains controlled -[id number] score 6;low pt started on low dose Coumadin (patient will need to be set up with anticoagulation clinic) - on IV heparin bridge goal INR 2-3 , current INR 1.4 -Coumadin dose increased monitor closely for increased risk of Hemorrhagic conversion of pericardial effusion -Pacer interrogation: reveals that she has been in atrial fibrillation for just over 2 weeks with onset having been on 02/25/2019. -Recent resting echo 02/01/2019-EF 55 to 59%, mild aortic valve stenosis, moderate mitral stenosis, mild tricuspid regurgitation -Keep K~4, Mag~2, replete and monitor hypokalemia and hypomagnesemia -Cardiology consult, input appreciated -Continue Coumadin and clopidogrel, aspirin was discontinued - Telemetry reviewed - pt cont. to be in Afib w/ HR 60-70s PERICARDIAL EFFUSION : An echocardiogram: normal LV wall motion and normal LVEF with findings of moderate mitral stenosis and mild aortic valve stenosis unchanged compared to last month. - Echo repeated (03/17/2019) -to visualize pericardial effusion - per cardiology started colchicine, prednisone, omeprazole for GI prophylaxis , (will need 6 weeks of prolonged prednisone taper) -We will decrease prednisone to 15 mg on March 22, after receiving 20 mg for 7 days She is not a candidate for high-dose aspirin or other nonsteroidal anti- inflammatory medication due to baseline CKD stage 3 -Also received IV albumin per cardiology (2) Chest pain: (3) CAD (coronary artery disease): no complain of SOB or angina symptom -Patient presented with increasing exertional chest pain or shortness of breath, found to be in new onset rate controlled atrial fibrillation -History of coronary disease, status post multiple coronary interventions in the past with most recent being 12/2017 -serial troponin negative appreciate cardiology eval; cont cardiac meds (4) Leg edema: -Lower extremity edema, R>L (chronic per patient), noted on exam -BL LE venous Doppler-negative for DVT -Recent echo report as above (5) DM type 2 (diabetes mellitus, type 2): -Hgb A1c 7.5 02/2019 -Currently more hyperglycemic, due to prednisone, will taper down in the next 1 to 2 days, will plan for several week long taper -Continue home dose of Lantus, add on NovoLog per protocol while hospitalized (6) MDS (myelodysplastic syndrome): -Baseline hemoglobin ~ 10-11 - current Hgb 10.1 (03/20/2019) - will cont. to monitor (7) Hypothyroidism: -Continue with levothyroxine - TSH 6.5 on 02/22 (8) Depression: -Continue citalopram (9) DVT prophylaxis: IV heparin /coumadin CODE STATUS : DNR/DNI DISPOSITION: lives at home with son active with [employer] [facility] [employer] PT/OT monico requested Subjective No acute events overnight, she feels well, denies any chest pain, shortness of breath, palpitations. Also denies any abdominal pain, nausea or vomiting. Says she has been walking hallways, without any issues. [id number] who is a nurse, at the bedside. Discussed Coumadin, prednisone, colchicine with the patient and her [id number]. Blood sugars elevated due to prednisone. Says that her son is at [facility], history of brain cancer, would like to visit with him. [id number] reassured the patient, that her son was doing well. Review of Systems Review of Systems: All systems reviewed & are unremarkable except as noted in HPI & below Constitutional: no fever and no chills Respiratory: no cough, no dyspnea and no pain on inspiration Cardiovascular: no chest pain, no palpitations and no edema Gastrointestinal: no abdominal pain, no nausea and no vomiting Physical Exam Physical Exam: Constitutional: Elderly female laying in bed, in no acute distress, on IV heparin Eyes: PERRL, EOMI,conjunctivae normal, anicteric sclerae ENMT: external ear and nose normal, oropharynx normal Respiratory: normal respiratory effort, lungs clear to auscultation, no wheezing, rhonchi or crackles Cardiovascular: + irregularly irregular, soft murmur Vessels: normal peripheral pulses Extremities: + edema (+1-2 BLE, R>L) Gastrointestinal (Abdomen): normal bowel sounds, soft, nontender, nondistended, no guarding Musculoskeletal: no cyanosis or clubbing, extremities motor strength 5/5, moves all 4 extremities spontaneously Skin: no rashes, warm and dry Neurologic: PERRL, EOMI, accommodation nl, no face palsy, no dysarthria, moves all 4 extremities spontaneously Psychiatric: A+Ox3, euthymic affect Cognition: + remote memory not intact Insight: + limited insight Results & Data Vital Signs (Past 12 Hours) Vital Signs Temp Pulse Pulse Pulse Resp BP Pulse Ox 03/20/19 11:00 37.4 C 74 24 125/76 92 03/20/19 07:30 37.2 C 89 20 90/61 L 97 03/20/19 03:29 36.5 C 79 18 128/83 95 03/20/19 00:15 76 Laboratory Results 03/20/19 03/20/19 03/20/19 Range/Units 07:37 06:18 06:18 WBC (4.8-10.8) K/uL RBC (4.2-5.4) M/uL Hgb (12.0-16.0) g/dL Hct (37-47) % MCV (80-100) fL MCH (25-34) pg MCHC (32-36) g/dL RDW Std Deviation (36.4-46.3) fL RDW Coeff of [place] (11.5-14.5) % Plt Count (130-400) K/uL MPV (7.4-10.4) fL PT 13.8 H (9.0-12.0) Seconds INR 1.4 H (0.9-1.1) APTT 75.5 H* (21.0-31.0) Seconds PTT Ratio 2.8 Sodium 141 (136-145) mmol/L Potassium 3.7 (3.5-5.1) mmol/L Chloride 108 H (98-107) mmol/L Carbon Dioxide 27 (21-32) mmol/L Anion Gap 6.0 (3-11) BUN 14 (7-18) mg/dl Creatinine 0.83 (0.6-1.2) mg/dl Est Cr Clr Drug Dosing 59.4 ml/min Est GFR ( Amer) 77.2 Est GFR (Non-Af Amer) 66.6 BUN/Creatinine Ratio 16.4 (10-20) Glucose 102 H (70-99) mg/dl POC Glucose 124 H (70-99) Calcium 8.5 (8.5-10.1) mg/dl Magnesium 1.8 (1.8-2.4) mg/dl 03/20/19 03/19/19 03/19/19 Range/Units 06:18 19:58 16:14 WBC 5.71 (4.8-10.8) K/uL RBC 3.39 L (4.2-5.4) M/uL Hgb 10.1 L (12.0-16.0) g/dL Hct 31.3 L (37-47) % MCV 92.3 (80-100) fL MCH 29.8 (25-34) pg MCHC 32.3 (32-36) g/dL RDW Std Deviation 47.1 H (36.4-46.3) fL RDW Coeff of [place] 14.2 (11.5-14.5) % Plt Count 306 (130-400) K/uL MPV 10.1 (7.4-10.4) fL PT (9.0-12.0) Seconds INR (0.9-1.1) APTT (21.0-31.0) Seconds PTT Ratio Sodium (136-145) mmol/L Potassium (3.5-5.1) mmol/L Chloride (98-107) mmol/L Carbon Dioxide (21-32) mmol/L Anion Gap (3-11) BUN (7-18) mg/dl Creatinine (0.6-1.2) mg/dl Est Cr Clr Drug Dosing ml/min Est GFR ( Amer) Est GFR (Non-Af Amer) BUN/Creatinine Ratio (10-20) Glucose (70-99) mg/dl POC Glucose 245 H 350 H* (70-99) Calcium (8.5-10.1) mg/dl Magnesium (1.8-2.4) mg/dl 03/19/19 03/19/19 Range/Units 16:12 11:45 WBC (4.8-10.8) K/uL RBC (4.2-5.4) M/uL Hgb (12.0-16.0) g/dL Hct (37-47) % MCV (80-100) fL MCH (25-34) pg MCHC (32-36) g/dL RDW Std Deviation (36.4-46.3) fL RDW Coeff of [place] (11.5-14.5) % Plt Count (130-400) K/uL MPV (7.4-10.4) fL PT (9.0-12.0) Seconds INR (0.9-1.1) APTT (21.0-31.0) Seconds PTT Ratio Sodium (136-145) mmol/L Potassium (3.5-5.1) mmol/L Chloride (98-107) mmol/L Carbon Dioxide (21-32) mmol/L Anion Gap (3-11) BUN (7-18) mg/dl Creatinine (0.6-1.2) mg/dl Est Cr Clr Drug Dosing ml/min Est GFR ( Amer) Est GFR (Non-Af Amer) BUN/Creatinine Ratio (10-20) Glucose (70-99) mg/dl POC Glucose 350 H* 178 H (70-99) Calcium (8.5-10.1) mg/dl Magnesium (1.8-2.4) mg/dl Medications Administered Current Inpatient Medications Acetaminophen (Tylenol) 650 mg PO Q4H PRN PRN Reason: Pain or Fever Stop: 04/12/19 15:31 Last Admin: 03/17/19 08:27 Dose: 650 mg Documented by: Citalopram Hydrobromide (Celexa) 40 mg PO DAILY [facility] Stop: 04/13/19 08:59 Last Admin: 03/20/19 08:19 Dose: 40 mg Documented by: Clopidogrel Bisulfate (Plavix) 75 mg PO QAM [facility] Stop: 04/13/19 08:59 Last Admin: 03/20/19 08:19 Dose: 75 mg Documented by: Colchicine (Colcrys) 0.6 mg PO BID [facility] Stop: 04/13/19 09:14 Last Admin: 03/20/19 08:18 Dose: 0.6 mg Documented by: Cyanocobalamin (Vitamin B-12) 500 mcg PO QAM [facility] Stop: 04/13/19 08:59 Last Admin: 03/20/19 08:18 Dose: 500 mcg Documented by: Dextrose (Dextrose 50%) 25 - 50 ml IV UD PRN; Protocol PRN Reason: Hypoglycemia Protocol Stop: 04/12/19 15:31 Ferrous Sulfate (Feosol) 325 mg PO BID [facility] Stop: 04/12/19 20:59 Last Admin: 03/20/19 08:18 Dose: 325 mg Documented by: Glucagon (Glucagen) 1 mg SQ UD PRN; Protocol PRN Reason: Hypoglycemia Protocol Stop: 04/12/19 15:31 Glucose (Dex4 Glucose) 4 - 8 tabs PO UD PRN; Protocol PRN Reason: Hypoglycemia Protocol Stop: 04/12/19 15:31 Glucose (Glucose 40%) 15 - 30 gm PO UD PRN; Protocol PRN Reason: Hypoglycemia Protocol Stop: 04/12/19 15:31 Heparin Sodium/Dextrose (Heparin Sodium/Dextrose) 25,000 units in 500 mls @ 22 mls/hr IV .[id number] [facility]; Protocol Stop: 04/12/19 15:31 Last Titration: 03/20/19 07:38 Dose: 1,100 units/hr, 22 mls/hr Documented by: Insulin Aspart (Novolog Flexpen) 0 units SC ACHS [facility] Stop: 04/12/19 16:29 Last Admin: 03/20/19 08:20 Dose: 4 units Documented by: Insulin Glargine (Lantus Solostar Pen) 14 units SQ QAM [facility] Stop: 04/15/19 08:59 Last Admin: 03/20/19 08:19 Dose: 14 units Documented by: Levothyroxine Sodium (Synthroid) 50 mcg PO DAILYBB [facility] Stop: 04/13/19 06:29 Last Admin: 03/20/19 05:43 Dose: 50 mcg Documented by: Metoprolol Succinate (Toprol Xl) 25 mg PO BID [facility] Stop: 04/14/19 20:59 Last Admin: 03/20/19 08:26 Dose: Not Given Documented by: Miscellaneous (Carbohydrates For Hypoglycemia) 15 - 30 gm PO UD PRN PRN Reason: Hypoglycemia Protocol Stop: 04/12/19 15:31 Last Admin: 03/15/19 20:18 Dose: 15 gm Documented by: Multivitamins/Folic Acid/Vitamin C (Flintstones Complete Chew Tab) 1 tab PO QAM [facility] Stop: 04/13/19 08:59 Last Admin: 03/20/19 08:18 Dose: 1 tab Documented by: Nitroglycerin (Nitrostat) 0.4 mg SL UD PRN PRN Reason: Chest Pain Stop: 04/12/19 15:31 Pantoprazole Sodium (Protonix) 40 mg PO DAILY [facility] Stop: 04/13/19 08:59 Last Admin: 03/20/19 08:19 Dose: 40 mg Documented by: Potassium Chloride (Klor-Con M20) 20 meq PO NOW STA Stop: 03/20/19 11:46 Prednisone (Prednisone) 20 mg PO DAILY SYED Stop: 04/14/19 08:59 Last Admin: 03/20/19 08:19 Dose: 20 mg Documented by: Warfarin Sodium (Coumadin) 5 mg PO DAILY@1600 [facility] Stop: 04/17/19 15:59 Last Admin: 03/19/19 17:00 Dose: 5 mg Documented by: (1) CAD (coronary artery disease) Associated angina: without angina Coronary Disease-Associated Artery/Lesion type: [place] artery [place] vs. transplanted heart: [place] heart Qualified Code(s): I25.10 - Atherosclerotic heart disease of [place] coronary artery without angina pectoris
[2019-03-20] MEDS ORDERED: MAGNESIUM SULFATE / D5W 1 GM/100 ML BAG IV ONE (12:00)
[2019-03-20 14:21] LABS: Partial Thromboplastin Ratio 2.2
[2019-03-20 14:22] LABS: Partial Thromboplastin Time 60.6 Seconds (21.0-31.0)
--- NOTE | 2019-03-20 14:54 | Cardiology Progress Note ---
Date of Service March 20, 2019 Assessment & Plan (1) New onset atrial fibrillation: (2) Mitral stenosis: (3) Pericardial effusion: (4) CAD (coronary artery disease): INR 1.4 today. Increase Coumadin dose to 7.5 mg. Continue heparin drip. Update limited echocardiogram to reassess pericardial effusion tomorrow Plan for discharge when INR > 2. Subjective Patient feels well. No complaints at present. Enjoyed visit with her family. Telemetry reveals stable rate controlled atrial fibrillation in the 60s 70 be per minute range and occasional demand ventricular pacing. Physical Exam Physical Exam: Temp Pulse Resp BP Pulse Ox 37.4 C 74 24 125/76 92 03/20/19 11:00 03/20/19 11:00 03/20/19 11:00 03/20/19 11:00 03/20/19 11:00 Constitutional: WD/WN, vitals as above Respiratory: normal respiratory effort, lungs clear to auscultation Cardiovascular: Rate/Rhythm: regular rhythm Heart Sounds: + murmur (1/6 systolic murmur) Vessels: no JVD Extremities: no edema Gastrointestinal (Abdomen): normal bowel sounds, soft, nontender, no hepatosplenomegaly Results & Data Vital Signs (Past 12 Hours) Vital Signs Temp Pulse Pulse Resp BP Pulse Ox 03/20/19 11:00 37.4 C 74 24 125/76 92 03/20/19 07:30 37.2 C 89 20 90/61 L 97 03/20/19 03:29 36.5 C 79 18 128/83 95 (1) CAD (coronary artery disease) Coronary Disease-Associated Artery/Lesion type: [place] artery [place] vs. transplanted heart: [place] heart Associated angina: without angina Qualified Code(s): I25.10 - Atherosclerotic heart disease of [place] coronary artery wit hout angina pectoris
[2019-03-20] MEDS: WARFARIN SOD 7.5 MG TAB PO SCH (17:00)
[2019-03-21] MEDS: LEVOTHYROXINE SODIUM 50 MCG TABLET PO SCH (05:29)
[2019-03-21 06:44] LABS: Hematocrit (blood only) 31.6 % (37-47); Mean Corpuscular Hemoglobin 29.9 pg (25-34); Mean Corpuscular Hgb Conc 31.6 g/dL (32-36); Mean Corpuscular Volume 94.3 fL (80-100); Mean Platelet Volume 9.9 fL (7.4-10.4); Platelet Count 320 K/uL (130-400); RDW Coefficient of Variation 14.1 % (11.5-14.5); Red Blood Count 3.35 M/uL (4.2-5.4); White Blood Count 6.24 K/uL (4.8-10.8)
[2019-03-21 07:06] LABS: INR 1.8 (0.9-1.1); Partial Thromboplastin Ratio 2.4; Prothrombin Time 17.7 Seconds (9.0-12.0)
[2019-03-21 07:09] LABS: Partial Thromboplastin Time 65.8 Seconds (21.0-31.0)
[2019-03-21 07:23] LABS: BUN Creatinine Ratio 15.3 (10-20); Calcium 8.9 mg/dl (8.5-10.1); Est GFR (African American) 71.9; Est GFR (Non-African American) 62.1; Magnesium 1.9 mg/dl (1.8-2.4)
[2019-03-21] MEDS: INSULIN ASPART 100 UNITS/ML 3 ML PEN SC SCH ×4 (07:58→20:16)
[2019-03-21] MEDS: FLINTSTONES COMPLETE CHEWABLE TAB PO SCH (08:00)
[2019-03-21] MEDS: CLOPIDOGREL BISULFATE 75 MG TAB PO SCH (08:00)
[2019-03-21] MEDS: PANTOprazole 40 MG TAB PO SCH (08:00)
[2019-03-21] MEDS: predniSONE 20 MG TAB PO SCH (08:00)
[2019-03-21] MEDS: FERROUS SULFATE 325 MG TAB PO SCH ×2 (08:00→20:20)
[2019-03-21] MEDS: CITALOPRAM 40 MG TAB PO SCH (08:00)
[2019-03-21] MEDS: COLCHICINE 0.6 MG TAB PO SCH ×2 (08:00→20:20)
[2019-03-21] MEDS: METOPROLOL SUCC 25MG EXT REL TAB PO SCH ×2 (08:01→20:21)
[2019-03-21] MEDS: CYANOCOBALAMIN 500 MCG TABLET (VITAMIN B-12) PO SCH (08:01)
[2019-03-21] MEDS: INSULIN GLARGINE SOLOSTAR 100 UNITS/ML 3 ML PEN SQ SCH (08:01)
--- NOTE | 2019-03-21 08:16 | Hospitalist Progress Note ---
Date of Service March 21, 2019 Assessment & Plan (1) New onset atrial fibrillation: -Patient presenting from home with reports of increasing exertional chest pain and shortness of breath -In the ED, EKG demonstrates rate controlled atrial fibrillation, new onset for the patient - on metoprolol succinate 25 mg daily, HR remains controlled -[id number] score 6;low pt started on low dose Coumadin (patient will need to be set up with anticoagulation clinic) - on IV heparin bridge goal INR 2-3 , current INR 1.8 -Coumadin dose increased monitor closely for increased risk of Hemorrhagic conversion of pericardial effusion -Pacer interrogation: reveals that she has been in atrial fibrillation for just over 2 weeks with onset having been on 02/25/2019. -Recent resting echo 02/01/2019-EF 55 to 59%, mild aortic valve stenosis, moderate mitral stenosis, mild tricuspid regurgitation -Keep K~4, Mag~2, replete and monitor hypokalemia and hypomagnesemia -Cardiology consult, input appreciated -Continue Coumadin and clopidogrel, aspirin was discontinued - Telemetry reviewed - pt cont. to be in Afib w/ HR 60-70s PERICARDIAL EFFUSION : An echocardiogram: normal LV wall motion and normal LVEF with findings of moderate mitral stenosis and mild aortic valve stenosis unchanged compared to last month. - Echo repeated (03/17/2019) -to visualize pericardial effusion - per cardiology started colchicine, prednisone, omeprazole for GI prophylaxis , (will need 6 weeks of prolonged prednisone taper) -We will decrease prednisone to 15 mg on March 22, after receiving 20 mg for 7 days She is not a candidate for high-dose aspirin or other nonsteroidal anti- inflammatory medication due to baseline CKD stage 3 -Also received IV albumin per cardiology (2) Chest pain: (3) CAD (coronary artery disease): no complain of SOB or angina symptom -Patient presented with increasing exertional chest pain or shortness of breath, found to be in new onset rate controlled atrial fibrillation -History of coronary disease, status post multiple coronary interventions in the past with most recent being 12/2017 -serial troponin negative appreciate cardiology eval; cont cardiac meds (4) Leg edema: -Lower extremity edema, R>L (chronic per patient), noted on exam -BL LE venous Doppler-negative for DVT -Recent echo report as above (5) DM type 2 (diabetes mellitus, type 2): -Hgb A1c 7.5 02/2019 -Currently more hyperglycemic, due to prednisone, will taper down, tomorrow, (decr. dose to 15 mg) -Continue home dose of Lantus, add on NovoLog per protocol while hospitalized (6) MDS (myelodysplastic syndrome): -Baseline hemoglobin ~ 10-11 - current Hgb 10.1 (03/20/2019) - will cont. to monitor (7) Hypothyroidism: -Continue with levothyroxine - TSH 6.5 on 02/22 (8) Depression: -Continue citalopram (9) DVT prophylaxis: IV heparin /coumadin CODE STATUS : DNR/DNI DISPOSITION: lives at home with son active with [employer] and [employer] PT/OT monico requested Subjective Patient is currently lying in bed, in no acute distress, says that she had visitors again, and now feels tired. She denies any chest pain, palpitations, shortness of breath, able to ambulate. Also denies any fevers, chills, abdominal pain, nausea or vomiting. INR 1.8 Discussed likely discharge tomorrow. Review of Systems Review of Systems: All systems reviewed & are unremarkable except as noted in HPI & below Constitutional: no fever and no chills Respiratory: no cough, no dyspnea and no pain on inspiration Cardiovascular: no chest pain, no palpitations and no edema Gastrointestinal: no abdominal pain, no nausea and no vomiting Physical Exam Physical Exam: Constitutional: Elderly female laying in bed, in no acute distress Eyes: PERRL, EOMI,conjunctivae normal, anicteric sclerae ENMT: external ear and nose normal, oropharynx normal Respiratory: normal respiratory effort, lungs clear to auscultation, no wheezing, rhonchi or crackles Cardiovascular: + irregularly irregular, soft murmur Vessels: normal peripheral pulses Extremities: + edema (+1-2 BLE, R>L) Gastrointestinal (Abdomen): normal bowel sounds, soft, nontender, nondistended, no guarding Musculoskeletal: no cyanosis or clubbing, extremities motor strength 5/5, moves all 4 extremities spontaneously Skin: no rashes, warm and dry Neurologic: PERRL, EOMI, accommodation nl, no face palsy, no dysarthria, moves all 4 extremities spontaneously Psychiatric: A+Ox3, euthymic affect Cognition: + remote memory not intact Insight: + limited insight Results & Data Vital Signs (Past 12 Hours) Vital Signs Temp Pulse Pulse Resp BP Pulse Ox 03/21/19 07:49 36.8 C 82 20 116/76 92 03/21/19 02:59 36.7 C 88 18 122/64 96 03/20/19 23:38 36.6 C 81 18 136/82 96 03/20/19 22:59 84 Laboratory Results 03/21/19 03/21/19 03/21/19 Range/Units 07:20 06:16 06:16 WBC (4.8-10.8) K/uL RBC (4.2-5.4) M/uL Hgb (12.0-16.0) g/dL Hct (37-47) % MCV (80-100) fL MCH (25-34) pg MCHC (32-36) g/dL RDW Std Deviation (36.4-46.3) fL RDW Coeff of [place] (11.5-14.5) % Plt Count (130-400) K/uL MPV (7.4-10.4) fL PT 17.7 H (9.0-12.0) Seconds INR 1.8 H (0.9-1.1) APTT 65.8 H* (21.0-31.0) Seconds PTT Ratio 2.4 Sodium 140 (136-145) mmol/L Potassium 4.0 (3.5-5.1) mmol/L Chloride 106 (98-107) mmol/L Carbon Dioxide 28 (21-32) mmol/L Anion Gap 6.0 (3-11) BUN 13 (7-18) mg/dl Creatinine 0.88 (0.6-1.2) mg/dl Est Cr Clr Drug Dosing 56.0 ml/min Est GFR ( Amer) 71.9 Est GFR (Non-Af Amer) 62.1 BUN/Creatinine Ratio 15.3 (10-20) Glucose 102 H (70-99) mg/dl POC Glucose 111 H (70-99) Calcium 8.9 (8.5-10.1) mg/dl Magnesium 1.9 (1.8-2.4) mg/dl 03/21/19 03/20/19 03/20/19 Range/Units 06:16 20:07 16:16 WBC 6.24 (4.8-10.8) K/uL RBC 3.35 L (4.2-5.4) M/uL Hgb 10.0 L (12.0-16.0) g/dL Hct 31.6 L (37-47) % MCV 94.3 (80-100) fL MCH 29.9 (25-34) pg MCHC 31.6 L (32-36) g/dL RDW Std Deviation 48.0 H (36.4-46.3) fL RDW Coeff of [place] 14.1 (11.5-14.5) % Plt Count 320 (130-400) K/uL MPV 9.9 (7.4-10.4) fL PT (9.0-12.0) Seconds INR (0.9-1.1) APTT (21.0-31.0) Seconds PTT Ratio Sodium (136-145) mmol/L Potassium (3.5-5.1) mmol/L Chloride (98-107) mmol/L Carbon Dioxide (21-32) mmol/L Anion Gap (3-11) BUN (7-18) mg/dl Creatinine (0.6-1.2) mg/dl Est Cr Clr Drug Dosing ml/min Est GFR ( Amer) Est GFR (Non-Af Amer) BUN/Creatinine Ratio (10-20) Glucose (70-99) mg/dl POC Glucose 230 H 226 H (70-99) Calcium (8.5-10.1) mg/dl Magnesium (1.8-2.4) mg/dl 03/20/19 03/20/19 Range/Units 13:51 11:12 WBC (4.8-10.8) K/uL RBC (4.2-5.4) M/uL Hgb (12.0-16.0) g/dL Hct (37-47) % MCV (80-100) fL MCH (25-34) pg MCHC (32-36) g/dL RDW Std Deviation (36.4-46.3) fL RDW Coeff of [place] (11.5-14.5) % Plt Count (130-400) K/uL MPV (7.4-10.4) fL PT (9.0-12.0) Seconds INR (0.9-1.1) APTT 60.6 H* (21.0-31.0) Seconds PTT Ratio 2.2 Sodium (136-145) mmol/L Potassium (3.5-5.1) mmol/L Chloride (98-107) mmol/L Carbon Dioxide (21-32) mmol/L Anion Gap (3-11) BUN (7-18) mg/dl Creatinine (0.6-1.2) mg/dl Est Cr Clr Drug Dosing ml/min Est GFR ( Amer) Est GFR (Non-Af Amer) BUN/Creatinine Ratio (10-20) Glucose (70-99) mg/dl POC Glucose 167 H (70-99) Calcium (8.5-10.1) mg/dl Magnesium (1.8-2.4) mg/dl (1) CAD (coronary artery disease) Associated angina: without angina Coronary Disease-Associated Artery/Lesion type: [place] artery [place] vs. transplanted heart: [place] heart Qualified Code(s): I25.10 - Atherosclerotic heart disease of [place] coronary artery without angina pectoris
[2019-03-21] MEDS: WARFARIN SOD 7.5 MG TAB PO SCH (16:00)
[2019-03-21] MEDS ORDERED: methylPREDNISolone 60 MG in SYRINGE 0 ML IV ONE (16:15)
--- NOTE | 2019-03-21 16:15 | Cardiology Progress Note ---
Date of Service March 21, 2019 Assessment & Plan (1) New onset atrial fibrillation: The patient is currently stable with rate controlled atrial fibrillation. INR is 1.8, due to my concerns of bleeding risks and conversion to hemorrhagic pericardial effusion, will discontinue heparin infusion at this time, and continue Coumadin for stroke prophylaxis. (2) Mitral stenosis: Moderate MS, stable compared to 01/2019 echo. (3) Pericardial effusion: The patient's clinical symptoms on presentation included chest pain, but they did not seem consistent with pericarditis. She did have mildly elevated infl ammatory markers including C-reactive protein and erythrocyte sedimentation rate, no EKG changes to suggest pericarditis, but has had an ongoing moderate sized circumferential pericardial effusion without tamponade. An echocardiogram was performed again today 03/21/2019, with ongoing moderate pericardial effusion without change compared to the 2 prior echocardiograms this admission. Pharmacologic therapy: Continue colchicine, tapering prednisone, she has been transitioned to 15 mg daily, will administer another dose of IV Solu-Medrol at present. The patient does not have a personal history of malignancy, and there are no changes on her recent CT of the chest and abdomen from last month to suggest malignancy. At this time, we will continue with observation and anti- inflammatory treatment. I anticipate hospital discharge, perhaps tomorrow, and echocardiographic surveillance will be necessary as an outpatient in a 2-week interval. (4) CAD (coronary artery disease): Continue clopidogrel plus Coumadin. Aspirin discontinued. Subjective Patient is enjoying a visit from 2 family members. She denies any chest discomfort or shortness of breath. She states that she has been walking without concerning symptoms. She denies subjective palpitations, or chest discomfort. Blood pressure is stable. Review of Systems Review of Systems: All systems reviewed & are unremarkable except as noted in HPI & below Physical Exam Physical Exam: Temp Pulse Resp BP Pulse Ox 36.7 C 59 L 18 100/66 94 03/21/19 15:35 03/21/19 15:35 03/21/19 15:35 03/21/19 15:35 03/21/19 15:35 Constitutional: WD/WN, vitals as above Respiratory: normal respiratory effort, lungs clear to auscultation Cardiovascular: Rate/Rhythm: + irregularly irregular Heart Sounds: + murmur (I/ SM, and DM) Vessels: no JVD Extremities: no edema Gastrointestinal (Abdomen): normal bowel sounds, soft, nontender, no hepatosplenomegaly Neurologic: PERRL, EOMI, accommodation nl, no face palsy, no dysarthria Results & Data Vital Signs (Past 12 Hours) Vital Signs Temp Pulse Resp BP Pulse Ox 03/21/19 15:35 36.7 C 59 L 18 100/66 94 03/21/19 12:32 112/72 03/21/19 11:12 36.8 C 71 18 89/60 L 98 03/21/19 07:49 36.8 C 82 20 116/76 92 (1) CAD (coronary artery disease) Coronary Disease-Associated Artery/Lesion type: [place] artery [place] vs. transplanted heart: [place] heart Associated angina: without angina Qualified Code(s): I25.10 - Atherosclerotic heart disease of [place] coronary artery without angina pectoris
[2019-03-22] MEDS: LEVOTHYROXINE SODIUM 50 MCG TABLET PO SCH (05:22)
[2019-03-22 06:58] LABS: Hemoglobin 10.8 g/dL (12.0-16.0); Mean Corpuscular Hemoglobin 29.8 pg (25-34); Mean Corpuscular Hgb Conc 31.8 g/dL (32-36); Mean Corpuscular Volume 93.7 fL (80-100); Mean Platelet Volume 9.9 fL (7.4-10.4); Platelet Count 328 K/uL (130-400); RDW Standard Deviation 47.8 fL (36.4-46.3); Red Blood Count 3.63 M/uL (4.2-5.4); White Blood Count 7.47 K/uL (4.8-10.8)
[2019-03-22 07:06] LABS: INR 2.2 (0.9-1.1); Prothrombin Time 21.6 Seconds (9.0-12.0)
[2019-03-22 07:22] VITALS: TEMP 98.4
[2019-03-22 07:31] LABS: Albumin Globulin Ratio 0.6 (0.9-2); Albumin Level 2.5 gm/dl (3.4-5.0); BUN Creatinine Ratio 18.5 (10-20); Bilirubin,Total 0.5 mg/dl (0.2-1); Calcium 8.9 mg/dl (8.5-10.1); Est GFR (African American) 66.4; Est GFR (Non-African American) 57.3; Globulin 3.9 gm/dl (2.5-4.0); Potassium 4.2 mmol/L (3.5-5.1); Total Protein 6.4 gm/dl (6.4-8.2)
[2019-03-22 07:34] LABS: Partial Thromboplastin Ratio 1.1; Partial Thromboplastin Time 29.9 Seconds (21.0-31.0)
[2019-03-22] MEDS: METOPROLOL SUCC 25MG EXT REL TAB PO SCH (08:00)
[2019-03-22] MEDS: COLCHICINE 0.6 MG TAB PO SCH (08:01)
[2019-03-22] MEDS: CYANOCOBALAMIN 500 MCG TABLET (VITAMIN B-12) PO SCH (08:01)
[2019-03-22] MEDS: CITALOPRAM 40 MG TAB PO SCH (08:01)
[2019-03-22] MEDS: CLOPIDOGREL BISULFATE 75 MG TAB PO SCH (08:01)
[2019-03-22] MEDS: FLINTSTONES COMPLETE CHEWABLE TAB PO SCH (08:01)
[2019-03-22] MEDS: INSULIN ASPART 100 UNITS/ML 3 ML PEN SC SCH ×2 (08:01→11:58)
[2019-03-22] MEDS: FERROUS SULFATE 325 MG TAB PO SCH (08:01)
[2019-03-22] MEDS: PANTOprazole 40 MG TAB PO SCH (08:01)
[2019-03-22] MEDS: INSULIN GLARGINE SOLOSTAR 100 UNITS/ML 3 ML PEN SQ SCH (08:02)
[2019-03-22] MEDS ORDERED: predniSONE 5 MG TAB PO SCH (09:00)
[2019-03-22 11:32] VITALS: BP 95/61; PULSE 84; O2SAT 96
--- NOTE | 2019-03-22 14:54 | Discharge Summary ---
Date of Service March 22, 2019 Admission HPI Per Admitting Provider 78-year-old female who presents the ED for evaluation of chest pain shortness of breath. Over the past 2 weeks, patient has been having increasing episodes of exertional chest pain and shortness of breath. Patient lives in an apartment attached to her son's house and when she went to walk over this morning, she reports severe left-sided chest pain and shortness of breath. She describes the pain as a sharp sensation. No associated diaphoresis, nausea, syncopal event. She reports some mild lightheadedness and dizziness. Patient was going to take sublingual nitroglycerin however reports she cannot find it. She is unsure of when the pain resolved however she reports she is currently chest pain-free. She reports her symptoms as similar to when she is required cardiac stenting in the past. Patient reports she weighs herself routinely and weight has been stable. She has chronic right lower extremity edema which is unchanged from baseline. No abdominal pain, vomiting, diarrhea. Denies any recent illnesses, fevers, chills. No urinary symptoms. In the ED, patient is found to be in new onset atrial fibrillation, rate controlled. Initial troponin is negative and EKG does not show any acute ST changes. Vital signs are stable. Labs unremarkable. Discharge Data Allergies Allergy/AdvReac Type Severity Reaction Status Date / Time adhesive Allergy Unknown ADHESIVE Verified 03/13/19 10:38 TAPE Consultations 03/13/19 12:48 ED Decision to Admit Stat 03/13/19 15:32 Consult Cardiology Routine Consult Case Management - Discharge Planning Routine Ordered Studies 03/14/19 07:00 US venous doppler LE Routine Discharge Plan Discharge Items Patient Disposition: Home - Home Health Services Reason For Visit: CHEST PAIN,SOB Discharge Diagnosis: Pericardial effusion, atrial fibrillation Activity: Resume your previous activity Activity Comment: as tolerated, pace yourself, ask for help as needed Non-emergency contact: Primary Care Provider and General Road Supervisor Call non-emergency contact if: you have any medication questions and your symptoms worsen Follow-up/Referrals: Liza Dobbs, [Primary Care Provider] - 03/29/19 10:45 am Diet: Carb Consistent or DM2, Heart Healthy and Low Sodium (2gm) Addtl Attending Provider Instructions: Follow-up with your primary care provider, on March 29, at 10:45 AM. Coagulation clinic, (the clinic that will monitor your INR level), is going to call you tomorrow, March 23, 2019. They will further advise you on your Coumadin dose and further lab work. You will need to follow-up with cardiology, and have echocardiogram done in 2 weeks. You will be contacted about your appointment. Your new medications are Coumadin, colchicine, prednisone. Coumadin is your anticoagulation ("blood thinner"), and it will be managed by anticoagulation clinic. 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 Take prednisone 15 mg daily for 7 days, then 10 mg daily for 7 days, then 7.5 mg for 7 days, then 5 mg for 7 days, and finally 2.5 mg for 7 days. Pending Studies at Discharge: No Stand-Alone Forms: Call Back Authorization, My [facility], Smoking Cessation Medications and DC Order Prescriptions: New warfarin [Coumadin] 7.5 mg Tablet 7.5 mg PO DAILY@1600 14 Days Qty: 14 RF: 0 prednisone 5 mg Tablet 15 mg PO DAILY 7 Days Qty: 21 RF: 0 prednisone 10 mg tablet 10 mg PO DAILY 7 Days Qty: 7 RF: 0 prednisone 5 mg tablet 5 mg PO DAILY 7 Days Qty: 7 RF: 0 prednisone 2.5 mg tablet 2.5 mg PO DAILY 7 Days Qty: 7 RF: 0 colchicine [Colcrys] 0.6 mg Tablet 0.6 mg PO BID 30 Days Qty: 60 RF: 0 prednisone 5 mg tablet 5 mg PO DAILY Qty: 7 RF: 0 prednisone 2.5 mg tablet 2.5 mg PO DAILY 7 Days Qty: 7 RF: 0 Continued citalopram 40 mg Tablet 40 mg PO DAILY RF: 0 levothyroxine 50 mcg Tablet 50 mcg PO DAILY RF: 0 pantoprazole [Protonix] 40 mg Tablet,Delayed Release (Dr/Ec) 40 mg PO DAILY RF: 0 pediatric multivitamin [Flintstones Multivitamin] Tablet,Chewable 1 tab PO QAM RF: 0 metoprolol succinate 25 mg Tablet Extended Release 24 Hr 25 mg PO QAM RF: 0 Lantus Solostar U-100 Insulin 100 unit/mL (3 mL) Insulin Pen 16 unit SUBCUT QAM RF: 0 clopidogrel [Plavix] 75 mg Tablet 75 mg PO QAM RF: 0 cyanocobalamin (vitamin B-12) 500 mcg Tablet 500 mcg PO QAM RF: 0 ferrous sulfate 325 mg (65 mg iron) Tablet 325 mg PO BID RF: 0 albuterol sulfate 90 mcg/actuation Hfa Aerosol Inhaler 2 puff INHALATION Q4H PRN (Reason: Shortness Of Breath Or Wheezing) RF: 0 Discontinued aspirin 81 mg Tablet,Delayed Release (Dr/Ec) 81 mg PO QAM RF: 0 Discharge Orders: Discharge Order (Routine); Ordered 03/22/19 Ordered By: Donte Fletcher Admission Data Admit Date/Time: 03/13/19 13:42 Attending Provider: Donte Fletcher Admit Provider: Ravinder Givens Primary Care Provider: Liza Dobbs Other Providers: Ravinder Givens ; Felix Caraballo Ayesha H.
[2019-03-22] MEDS: WARFARIN SOD 7.5 MG TAB PO SCH (15:22)
== END 2019-03-22 16:05 | disposition home health service (06) | DRG 310 ==
LOC: ED 10:00 → SUATTDRO 13:21 → 2S 13:21 → SUATTDRO 13:42 → 2S 14:27

== ENCOUNTER 2019-10-10 15:10 | Inpatient (IN) ==
[2019-10-10] MEDS ORDERED: SODIUM CHLORIDE 0.9% 1000ML 1,000 ML IV ONE (15:54)
--- NOTE | 2019-10-10 16:00 | Emergency Department Note ---
History of Present Illness General Chief complaint: Headache Stated complaint: DIZZY,LIGHTHEAD,HARD TO BREATHE Time Seen by Provider: 10/10/19 15:40 Source: patient Mode of arrival: ambulatory Limitations: no limitations History of Present Illness Provider complaint: Headache, malaise Onset (ago): hour(s) 7 Location: head Radiation: non-radiation Severity: similar to prior episodes Pain Consistency: + constant Maximum Pain Intensity: 9 Current Pain Intensity: 9 Quality: + constant Relieved By: + none Exacerbated By: + none Associated symptoms: + malaise; no chest pain, no fever/chills, no nausea/vomiting, no shortness of breath and no syncope Treatments prior to arrival: none This is an 78-year-old female who presents from home complaining of frontal headache that began at 8:30 AM this morning. Patient states she felt normal when she woke up much earlier than that, and headache began dull and slowly in the frontal region around 830. Headache has been constant since then and slowly worsening. Patient denies any accompanying dizzy/vertigo symptoms, denies change in vision, nausea or vomiting, fevers or chills, or other URI symptoms. Patient denies any recent illness or any known coronavirus exposure. Patient denies any recent medication changes. Patient states she has felt very fatigued all day and has no energy. Patient denies any nausea vomiting. No recent ch cheikh in bowel or bladder function. Patient denies chest pain or shortness of breath. Patient states she does intermittently get headaches, no prior diagnosis of migraines, tension headaches, or cluster headaches. Patient denies any accompanying numbness or tingling, no accompanying neck or back pain. Patient states she did not try anything for pain prior to arrival as she was at her son and [id number]'s house and not hers. Son at bedside states that with a prior headache she was kept in the hospital overnight for IV fluids and it was thought to be that she was dehydrated. Patient does take blood thinners, Coumadin per the son. He states her blood thinners were also recently changed. Pt seen during a time of high acuity and national emergency pandemic while wearing PPE. Home Medications Home Medications Medication Instructions Recorded Confirmed Type Lantus Solostar U-100 Insulin 16 unit SUBCUT QAM 12/06/17 10/10/19 History metoprolol succinate 25 mg PO QAM 12/06/17 10/10/19 History pediatric multivitamin 1 tab PO QAM 12/06/17 10/10/19 History [Flintstones Multivitamin] albuterol sulfate 2 puff INHALATION Q4H PRN 11/08/18 10/10/19 History clopidogrel [Plavix] 75 mg PO QAM 11/08/18 10/10/19 History cyanocobalamin (vitamin B-12) 500 mcg PO QAM 11/08/18 10/10/19 History ferrous sulfate 325 mg PO BID 11/08/18 10/10/19 History citalopram 40 mg PO DAILY 03/13/19 10/10/19 History levothyroxine 50 mcg PO DAILY 03/13/19 10/10/19 History pantoprazole [Protonix] 40 mg PO DAILY 03/13/19 10/10/19 History prednisone 5 mg PO DAILY #7 tab 03/22/19 10/10/19 Rx Coumadin 7.5 mg PO DAILY 10/10/19 10/10/19 History digoxin 125 mcg PO USEASDIRECTD 10/10/19 10/10/19 History furosemide 20 mg PO DAILY 10/10/19 10/10/19 History Allergies Allergy/AdvReac Type Severity Reaction Status Date / Time adhesive Allergy Unknown ADHESIVE Verified 10/10/19 16:16 TAPE Past Med/Surg History Medical History Aortic root dilatation (Chronic) 4.4 cm on echo 01/2019 Asthma (Chronic) Bifascicular block CAD (coronary artery disease) (Chronic) "1995 - PTCA and stenting of RCA 07/2011 - atherectomy and stenting RCA 12/2011- AZALIA to the mid LAD 2016-Cobra stent to mid LAD 2017-AZALIA to ostial diagonal Depression (Chronic) DM type 2 (diabetes mellitus, type 2) (Chronic) Dyslipidemia (Chronic) Hypothyroidism (Chronic) HOMERO (iron deficiency anemia) (Chronic) Macular degeneration (Chronic) MDS (myelodysplastic syndrome) (Chronic) Mild aortic stenosis (Chronic) Pacemaker Sinus node dysfunction Surgical History History of angioplasty (Chronic) History of arthroscopy of knee (Chronic) History of arthroscopy of shoulder (Chronic) History of cholecystectomy (Chronic) History of gastric bypass (Chronic) History of incisional hernia repair (Chronic) History of partial hysterectomy (Chronic) History of tonsillectomy (Chronic) Family History Father Colorectal cancer Sister Lung cancer Diabetes Brother Diabetes Mother Diabetes Social History Smoking Status: Never smoker Hx Alcohol Use: No Hx Substance Use: No Preferred Language: Macedonian Communication Ability: Effective Visual Impairment: No Limitations Hearing Ability: Normal Conductor Pullman Required: No Beliefs That Will Affect Care: None marital status: / Current Living Situation: Family Current Living Situation Comment: Pt lives with her son, [id number], daughter, son-in-law, & 2 children current occupational status: retired How many Children do You have: 3 Other Information That Helps Us Care for You: No Feels Safe at Home: Yes Review of Systems See HPI for pertinent positives & negatives. and A total of 10 systems reviewed and were otherwise negative Physical Exam Vital Signs Vital Signs - 24 hr 10/10/19 15:27 10/10/19 15:57 10/10/19 16:00 Temperature 36.9 C Temperature Source Oral Pulse Rate 74 66 Pulse Rate [Apical] 63 Pulse Rate from SpO2 Sensor 67 Pulse Rhythm Regular Pulse Rhythm [Apical] Regular Pulse Strength Normal Respiratory Rate 16 18 30 H Respiratory Effort / Characteristics Non-Labored Spontaneous Non-Labored Spontaneous Respiratory Depth Normal Normal Respiratory Pattern Regular Regular Blood Pressure 73/46 L 104/60 Blood Pressure [Right Arm] 110/61 Blood Pressure Mean 55 74 Blood Pressure Mean [Right Arm] 77 Blood Pressure Position Sitting Pulse Oximetry 98 98 98 Oxygen Delivery Method Room Air Room Air Sepsis Recent Fever Within 48 Hours No Sepsis New/Unexplained Change in Mental Status No Sepsis Action Taken by Nursing No Action Required 10/10/19 16:30 10/10/19 17:03 10/10/19 17:23 Temperature Temperature Source Pulse Rate 67 72 66 Pulse Rate [Apical] Pulse Rate from SpO2 Sensor 67 72 66 Pulse Rhythm Pulse Rhythm [Apical] Pulse Strength Respiratory Rate 20 19 20 Respiratory Effort / Characteristics Respiratory Depth Respiratory Pattern Blood Pressure 118/66 158/86 H 158/86 H Blood Pressure [Right Arm] Blood Pressure Mean 89 100 100 Blood Pressure Mean [Right Arm] Blood Pressure Position Pulse Oximetry 99 98 99 Oxygen Delivery Method Sepsis Recent Fever Within 48 Hours Sepsis New/Unexplained Change in Mental Status Sepsis Action Taken by Nursing 10/10/19 17:30 10/10/19 18:00 10/10/19 18:30 Temperature Temperature Source Pulse Rate 61 63 60 Pulse Rate [Apical] Pulse Rate from SpO2 Sensor 63 62 60 Pulse Rhythm Pulse Rhythm [Apical] Pulse Strength Respiratory Rate 18 22 20 Respiratory Effort / Characteristics Respiratory Depth Respiratory Pattern Blood Pressure 132/76 141/74 H 142/66 H Blood Pressure [Right Arm] Blood Pressure Mean 104 104 102 Blood Pressure Mean [Right Arm] Blood Pressure Position Pulse Oximetry 100 99 Oxygen Delivery Method Sepsis Recent Fever Within 48 Hours Sepsis New/Unexplained Change in Mental Status Sepsis Action Taken by Nursing 10/10/19 19:00 Temperature Temperature Source Pulse Rate 60 Pulse Rate [Apical] Pulse Rate from SpO2 Sensor 60 Pulse Rhythm Pulse Rhythm [Apical] Pulse Strength Respiratory Rate 19 Respiratory Effort / Characteristics Respiratory Depth Respiratory Pattern Blood Pressure 129/97 Blood Pressure [Right Arm] Blood Pressure Mean 110 Blood Pressure Mean [Right Arm] Blood Pressure Position Pulse Oximetry 99 Oxygen Delivery Method Sepsis Recent Fever Within 48 Hours Sepsis New/Unexplained Change in Mental Status Sepsis Action Taken by Nursing GENERAL: alert, well appearing, well nourished, no distress, non-toxic EYE EXAM: normal conjunctiva, PERRL and EOM's grossly intact OROPHARYNX: no exudate, no erythema, lips, buccal mucosa, and tongue normal and mucous membranes are moist NECK: supple, no nuchal rigidity, no adenopathy, non-tender LUNGS: Clear to auscultation. Normal chest wall mechanics, no w/r/r HEART: no murmurs, S1 normal and S2 normal ABDOMEN: abdomen soft, non-tender, normo-active bowel sounds, no masses, no rebound or guarding. BACK: Back is symmetrical on inspection and there is no deformity, no midline tenderness, no CVA tenderness. SKIN: no rashes and no bruising UPPER EXTREMITIES: upper extremities are grossly normal. FROM, nml pulses b/l. LOWER EXTREMITIES: No pitting edema. FROM, nml pulses b/l. NEURO EXAM: Normal sensorium, cranial nerves II-XII grossly intact, normal speech, no gross weakness of arms, no gross weakness of legs. Gross sensation intact. Course Course 172: Pt updated on results. States headache is improved. Pt states she hasn't taken coumadin since last week. She has been taking her plavix. 1901: Reviewed labs from [facility] records is obtained through case management. On August 14 patient had an INR of 2.35, and then trended down on subsequent checks throughout August, on September 26 her INR was 1.13. It appeared from additional reports and progress notes that she had not been taking her medications as prescribed. 2044: Rechecked pt, no further headache. Discussed concerning labs. 2108: Discussed with Dr. Gil. Administered Medications Citalopram Hydrobromide (Celexa) 40 mg PO DAILY [facility] Stop: 11/10/19 08:59 Last Admin: 10/11/19 08:28 Dose: 40 mg Documented by: [id number] Clopidogrel Bisulfate (Plavix) 75 mg PO QAM [facility] Stop: 11/10/19 08:59 Last Admin: 10/11/19 08:27 Dose: 75 mg Documented by: [id number] Cyanocobalamin (Vitamin B-12) 500 mcg PO QAM [facility] Stop: 11/10/19 08:59 Last Admin: 10/11/19 08:28 Dose: 500 mcg Documented by: [id number] Digoxin (Lanoxin) 0.125 mg PO [id number] [facility] Stop: 11/10/19 15:59 Last Admin: 10/11/19 17:19 Dose: 0.125 mg Documented by: [id number] Ferrous Sulfate (Feosol) 325 mg PO BIDM [facility] Stop: 11/10/19 07:59 Last Admin: 10/11/19 17:19 Dose: 325 mg Documented by: [id number] Admin: 10/11/19 08:27 Dose: 325 mg Documented by: [id number] Furosemide (Lasix) 20 mg PO DAILY [facility] Stop: 11/10/19 08:59 Last Admin: 10/11/19 08:27 Dose: 20 mg Documented by: [id number] Sodium Chloride (Nss 1000ml) 1,000 mls @ 75 mls/hr IV .[id number] [facility] Stop: 11/10/19 01:07 Last Admin: 10/11/19 14:27 Dose: 75 mls/hr Documented by: [id number] Infusion: 10/11/19 14:27 Dose: 75 mls/hr Documented by: [id number] Admin: 10/11/19 02:08 Dose: 75 mls/hr Documented by: [id number] Ceftriaxone Sodium 2,000 mg/ (Dextrose) 70 mls @ 100 mls/hr IV Q24H SYED; Protoc ol Stop: 10/16/19 20:59 Last Infusion: 10/11/19 21:53 Dose: 0 mls/hr Documented by: [id number] Admin: 10/11/19 20:47 Dose: 100 mls/hr Documented by: [id number] Insulin Aspart (Novolog Flexpen) 0 units SC ACHS [facility] Stop: 11/10/19 07:29 Last Admin: 10/11/19 20:20 Dose: Not Given Documented by: [id number] Cosigned by: [id number] Admin: 10/11/19 17:19 Dose: 5 units Documented by: [id number] Cosigned by: [id number] Admin: 10/11/19 12:47 Dose: 4 units Documented by: [id number] Cosigned by: [id number] Admin: 10/11/19 08:26 Dose: 6 units Documented by: [id number] Cosigned by: [id number] Insulin [place] (Lantus Solostar Pen) [facility] [place]: 11/10/19 08:59 Last Admin: 10/11/19 08:29 Dose: 16 units Documented by: [id number] Cosigned by: [id number] Levothyroxine Sodium (Synthroid) 50 mcg PO DAILYBB [facility] Stop: 11/10/19 06:29 Last Admin: 10/11/19 05:53 Dose: 50 mcg Documented by: [id number] Metoprolol Succinate ([facility]rol Xl) [facility] [place]: 11/10/19 08:59 Last Admin: 10/11/19 08:28 Dose: 25 mg Documented by: [id number] Miscellaneous (Carbohydrates For Hypoglycemia) 15 - 30 gm PO UD PRN PRN Reason: Hypoglycemia Treatment Stop: 11/10/19 01:44 Last Admin: 10/11/19 20:15 Dose: 15 gm Documented by: [id number] Multivitamins/Folic Acid/Vitamin C (Flintstones Complete Chew Tab) 1 tab PO QAM [facility] Stop: 11/10/19 08:59 Last Admin: 10/11/19 08:27 Dose: 1 tab Documented by: [id number] Pantoprazole Sodium (Protonix) 40 mg PO DAILY [facility] Stop: 11/10/19 08:59 Last Admin: 10/11/19 08:28 Dose: 40 mg Documented by: [id number] Discontinued Medications Sodium Chloride (Nss 1000ml) 1,000 mls @ 999 mls/hr IV .Q1H1M ONE Stop: 10/10/19 16:54 Last Infusion: 10/10/19 17:10 Dose: 0 mls/hr Documented by: [id number] Admin: 10/10/19 16:08 Dose: 999 mls/hr Documented by: [id number] Magnesium Sulfate/Dextrose (Magnesium Sulfate / D5w) 1 gm in 100 mls @ 100 mls/hr IV NOW STA Stop: 10/10/19 18:50 Last Infusion: 10/10/19 19:53 Dose: 0 mls/hr Documented by: [id number] Admin: 10/10/19 18:46 Dose: 100 mls/hr Documented by: [id number] Phytonadione 5 mg/ Sodium (Chloride) 50.5 mls @ 101 mls/hr IV ONE ONE Stop: 10/10/19 19:11 Last Admin: 10/10/19 22:14 Dose: Not Given Documented by: [id number] Phytonadione 2.5 mg/ Sodium (Chloride) 50.25 mls @ 100.5 mls/hr IV ONE ONE Stop: 10/10/19 20:02 Last Infusion: 10/10/19 21:15 Dose: 0 mls/hr Documented by: [id number] Admin: 10/10/19 20:22 Dose: 100 mls/hr Documented by: [id number] Ceftriaxone Sodium (Rocephin) 1,000 mg in 50 mls @ 100 mls/hr IV NOW STA Stop: 10/10/19 21:28 Last Infusion: 10/10/19 22:49 Dose: 0 mls/hr Documented by: [id number] Admin: 10/10/19 22:14 Dose: 100 mls/hr Documented by: [id number] Ioversol (Optiray 320 125ml) 120 ml IV ONCE PRN PRN Reason: Interaction Checking Stop: 10/14/19 16:49 Last Admin: 10/10/19 16:50 Dose: 120 ml Documented by: [id number] Potassium Chloride (Klor-Con M20) 40 meq PO NOW STA Stop: 10/10/19 17:52 Last Admin: 10/10/19 18:46 Dose: 40 meq Documented by: [id number] Potassium Chloride (Elisa Wray Elix) 40 meq PO NOW STA Stop: 10/11/19 00:07 Last Admin: 10/11/19 04:15 Dose: 40 meq Documented by: [id number] Critical Care Time Critical Care Time: Yes Total Critical Care Time: 52 Critical care of 52 min performed to assess and manage high likelihood of life-threatening coagulopathy, involving labs and imaging performed with assessment to evaluate headache, weakness, and elevated INR diagnosis with frequent reassessment. This time includes bedside time, treatment discussions with patient/family/consultants, documentation time and excludes procedure time. Medical Decision Making Differential Diagnosis Differential Diagnosis includes but is not limited to headache, tension he adache, cluster headache, migraine, subarachnoid hemorrhage, meningitis, mass, central venous thrombus, concussion, trauma and epidural/subdural hemorrhage. Medical Records Attestation: I reviewed the patient's medical records. Home Medications Current Medication List: was personally reviewed by me Laboratory Data Attestation: I reviewed the patient's lab results. Result diagrams: 10/11/19 05:23 10/11/19 05:23 Lab Results 10/10/19 10/10/19 10/10/19 Range/Units 15:57 15:57 15:57 WBC 5.11 (4.8-10.8) K/uL RBC 4.63 (4.2-5.4) M/uL Hgb 13.8 (12.0-16.0) g/dL Hct 40.7 (37-47) % MCV 87.9 (80-100) fL MCH 29.8 (25-34) pg MCHC 33.9 (32-36) g/dL RDW Std Deviation 41.5 (36.4-46.3) fL RDW Coeff of Gaston 13.0 (11.5-14.5) % Plt Count 175 (130-400) K/uL MPV 10.9 H (7.4-10.4) fL Immature Gran % (Auto) 0.2 % Neut % (Auto) 79.4 % Lymph % (Auto) 15.3 % [place] % (Auto) 4.7 % Eos % (Auto) 0.2 % Baso % (Auto) 0.2 % Neut # (Auto) 4.06 (1.4-6.5) K/uL Lymph # (Auto) 0.78 L (1.2-3.4) K/uL [place] # (Auto) 0.24 (0.11-0.59) K/uL Eos # (Auto) 0.01 (0-0.5) K/uL Baso # (Auto) 0.01 (0-0.2) K/uL Immature Gran # (Auto) 0.01 (0.00-0.02) K/uL PT Cancelled INR Cancelled APTT (21.0-31.0) Seconds PTT Ratio Sodium 138 (136-145) mmol/L Potassium 2.9 L (3.5-5.1) mmol/L Chloride 102 (98-107) mmol/L Carbon Dioxide 27 (21-32) mmol/L Anion Gap 9.0 (3-11) BUN 23 H (7-18) mg/dl Creatinine 1.34 H (0.6-1.2) mg/dl Est Cr Clr Drug Dosing 34.4 ml/min Est GFR ( Amer) 43.3 Est GFR (Non-Af Amer) 37.3 BUN/Creatinine Ratio 17.2 (10-20) Glucose 193 H (70-99) mg/dl Calcium 8.7 (8.5-10.1) mg/dl Magnesium 1.7 L (1.8-2.4) mg/dl Total Bilirubin 0.4 (0.2-1) mg/dl AST 21 (15-37) U/L ALT 14 (12-78) U/L Alkaline Phosphatase 89 (45-117) U/L Troponin I 0.028 (0-0.045) ng/ml Total Protein 7.0 (6.4-8.2) gm/dl Albumin 3.4 (3.4-5.0) gm/dl Globulin 3.6 (2.5-4.0) gm/dl Albumin/Globulin Ratio 0.9 (0.9-2) Lipase 59 L (73-393) U/L TSH 2.760 (0.300-4.500) uIu/ml Urine Color Urine Appearance (Clear) Urine pH (4.5-7.5) Ur Specific [place] (1.000-1.030) Urine Protein (Negative) Urine Glucose (UA) (Negative) Urine Ketones (Negative) Urine Blood (Negative) Urine Nitrite (Negative) Urine Bilirubin (Negative) Urine Urobilinogen (Negative) Ur Leukocyte Esterase (Negative) Urine WBC (Auto) (0-5) /hpf Urine RBC (Auto) (0-4) /hpf U Hyaline Cast (Auto) (0-5) /lpf U Epithel Cells (Auto) (0-5) /lpf Urine Bacteria (Auto) (Negative) Urine Crystals (None Prsent) Urine Yeast 10/10/19 10/10/19 10/10/19 Range/Units 17:29 17:29 19:00 WBC (4.8-10.8) K/uL RBC (4.2-5.4) M/uL Hgb (12.0-16.0) g/dL Hct (37-47) % MCV (80-100) fL MCH (25-34) pg MCHC (32-36) g/dL RDW Std Deviation (36.4-46.3) fL RDW Coeff of Gaston (11.5-14.5) % Plt Count (130-400) K/uL MPV (7.4-10.4) fL Immature Gran % (Auto) % Neut % (Auto) % Lymph % (Auto) % [place] % (Auto) % Eos % (Auto) % Baso % (Auto) % Neut # (Auto) (1.4-6.5) K/uL Lymph # (Auto) (1.2-3.4) K/uL [place] # (Auto) (0.11-0.59) K/uL Eos # (Auto) (0-0.5) K/uL Baso # (Auto) (0-0.2) K/uL Immature Gran # (Auto) (0.00-0.02) K/uL PT > 90.0 H INR > 9.7 H* APTT 62.9 H* (21.0-31.0) Seconds PTT Ratio 2.3 Sodium (136-145) mmol/L Potassium (3.5-5.1) mmol/L Chloride (98-107) mmol/L Carbon Dioxide (21-32) mmol/L Anion Gap (3-11) BUN (7-18) mg/dl Creatinine (0.6-1.2) mg/dl Est Cr Clr Drug Dosing ml/min Est GFR ( Amer) Est GFR (Non-Af Amer) BUN/Creatinine Ratio (10-20) Glucose (70-99) mg/dl Calcium (8.5-10.1) mg/dl Magnesium (1.8-2.4) mg/dl Total Bilirubin (0.2-1) mg/dl AST (15-37) U/L ALT (12-78) U/L Alkaline Phosphatase (45-117) U/L Troponin I (0-0.045) ng/ml Total Protein (6.4-8.2) gm/dl Albumin (3.4-5.0) gm/dl Globulin (2.5-4.0) gm/dl Albumin/Globulin Ratio (0.9-2) Lipase (73-393) U/L TSH (0.300-4.500) uIu/ml Urine Color Dark Yellow Urine Appearance Cloudy A (Clear) Urine pH 5.0 (4.5-7.5) Ur Specific [place] > 1.045 H (1.000-1.030) Urine Protein Trace H (Negative) Urine Glucose (UA) Negative (Negative) Urine Ketones 1+ H (Negative) Urine Blood 2+ H (Negative) Urine Nitrite Negative (Negative) Urine Bilirubin Negative (Negative) Urine Urobilinogen Negative (Negative) Ur Leukocyte Esterase 2+ H (Negative) Urine WBC (Auto) >30 H (0-5) /hpf Urine RBC (Auto) 0-4 (0-4) /hpf U Hyaline Cast (Auto) 1-5 (0-5) /lpf U Epithel Cells (Auto) >30 H (0-5) /lpf Urine Bacteria (Auto) 1+ H (Negative) Urine Crystals Calcium Oxalate A (None Prsent) Urine Yeast Not Reportable Imaging Data Radiologist's Impression: XR chest 1V portable CLINICAL HISTORY: fatigue dyspnea COMPARISON STUDY: 03/13/2019 FINDINGS: Bipolar cardiac pacer in good position. No significant cardiac enlargement. The lungs are clear. The diaphragms are smooth. IMPRESSION: No acute process. ACT 112: Negative or not required by law. The above report was generated using voice recognition software. It may contain grammatical, syntax or spelling errors. Electronically signed by: Gamaliel Garay M.D. 10/10/2019 4:[address] head/brain wo con CLINICAL HISTORY: headache, fatigue COMPARISON STUDY: 12/25/2018 TECHNIQUE: Axial CT of the brain is performed from the vertex to the skull base. IV contrast was not administered for this examination. A dose lowering technique was utilized adhering to the principles of ALARA. CT DOSE: FINDINGS: No intra or extra-axial mass lesions are visualized. There is no CT evidence of acute cortical infarction. There is no evidence of midline shift. There is no acute hemorrhage. No calvarial fractures are visualized. There are moderate white matter hypodensities likely on a small vessel basis. There is no evidence of pathologic ventricular dilatation. There is no evidence of acute sinusitis IMPRESSION: No acute intracranial findings ACT 112: Negative or not required by law. Electronically signed by: Juan Pablo Man M.D. 10/10/2019 5:[address] angio head w con CLINICAL HISTORY: headache FATIGUE TECHNIQUE: CT angiography of the head was performed in a dynamic helical fashion during intravenous administration of 120 cc of Optiray 320. MIP imaging was performed. A dose lowering technique was utilized adhering to the principles of ALARA. CT DOSE: 1202.60 mGy.cm COMPARISON STUDY: No previous studies for comparison. FINDINGS: There are no lesion suspicious for aneurysm. There are no major intr acranial branch occlusions. The dural venous sinuses appear patent. There is mild carotid and vertebral atherosclerotic calcification. There is no evidence of significant intracranial stenosis IMPRESSION: Unremarkable CT angiography of the brain for age ACT 112: Negative or not required by law. Electronically signed by: Juan Pablo Man M.D. 10/10/2019 5:[address] angio neck with con CLINICAL HISTORY: headache TECHNIQUE COMPARISON STUDY: No previous studies for comparison. TECHNIQUE: CT angiography was performed from the aortic arch to the skull base. MIP imaging was performed. The patient was scanned in a dynamic helical fashion during intravenous administration of 120 cc of Optiray 320. A dose lowering technique was utilized adhering to the principles of ALARA. CT DOSE: Technique: CT angiogram of the carotid and vertebral arteries was obtained using intravenous contrast and 3-D reconstruction. NASCET criteria was utilized. Findings: There is a dilated thoracic esophagus which contains a fluid debris level. There is a multinodular thyroid gland with dominant 12 mm left lobe thyroid nodule. Current recommendations indicate no necessity of follow-up in a patient of this age. There is no evidence of right carotid aneurysm. There is no evidence of dissection. There are moderate atheromatous changes the level of the right carotid bulb. There is no evidence of hemodynamically significant internal carotid artery stenosis. There is no evidence of left carotid aneurysm or dissection. There are moderate atheromatous changes present within the left carotid bulb. This results in approximately 65% diameter stenosis of the distal left common carotid. There is no evidence of hemodynamically significant vertebral stenosis. There is no evidence of vertebral dissection. IMPRESSION: 1. No evidence of hemodynamically significant internal carotid carotid or verteb ral artery stenosis. No evidence of dissection. 2. Moderate atheromatous changes at the level of the left carotid bulb with approximately 65% stenosis of the distal left common carotid ACT 112: Negative or not required by law. Electronically signed by: Juan Pablo Man M.D. 10/10/2019 5:09 PM ECG Data Attestation: I personally reviewed and interpreted this ECG as follows: Rate (beats per minute): 70 Rhythm: + atrial fibrillation ECG Intervals/blocks: + Right Bundle branch block and + Normal QT-c ECG [place]: + Left axis deviation ECG ST segments: + Nonspecific ST abnormalities Comparison ECG Date: from (03/16/2019) Change: no significant change (intermittent pacing noted) Blood Pressure Blood Pressure Findings: Normal blood pressure MDM Narrative This is an elderly female who presents to the emergency room complaining of headache and weakness. No sudden severe onset or thunderclap quality. Patient with no prior diagnosis of migraines or tension headaches. Patient states she has had prior headaches required IV fluids that she gets dehydrated. Patient is anticoagulated due to history of atrial fibrillation. Due to age and anticoagulation as well as intermittent and now recurrent headache, patient sent for neuroimaging. CT imaging of the patient's head/brain were unremarkable. No acute intracranial hemorrhage. Patient was cautiously rehydrated, labs drawn and sent as a precaution. Patient initially told me that she takes Coumadin, and then on a later recheck said that she had stopped taking her Coumadin was taking Plavix. Due to this discrepancy, I began looking into prior notes that were obtained from case management regarding recent PT/INR and outpatient records. It did appear that at some point in August patient had stopped taking her Coumadin for no apparent reason, but did states she was still taking her Plavix. Note show a downward trend of her INR. There is then a note that states she wanted to restart the Coumadin. Patient's PT/INR was checked here and found to be greater than the top measurable number per lab value. This was repeated in case of lab error and was found to be elevated again. Patient denied noticing blood from any source on repeat questioning. Patient then told me she had been taking her Plavix and a not taken her Coumadin for at least a week. Patient's family at bedside cannot provide any additional help or details. Patient is still managing all of her own medications despite living with them. Patient given IV vitamin K after discussion with Dr. Madrigal. Patient also after eventually providing a urine specimen was found to have a likely urinary tract infection. Hematuria was noted, although is unclear if this is related to infection or the markedly elevated INR. Due to concern for increased risk of bleeding, noted hematuria, patient's confusion regarding her labs, I discussed the case with the hospitalist for additional observation and rechecks. Patient was given 1 g of Rocephin IV for her UTI. I do not suspect pyelonephritis. No evidence of bacteremia/sepsis. I do not suspect obstructive uropathy. An order was placed for continuous cardiac monitoring. The monitor shows a rate of 70_ with _a.fib rhythm. Impression & Plan Headache, Generalized weakness, Dehydration, Acute UTI (urinary tract inf ection), Supratherapeutic INR, Hematuria Discharge Plan Visit Data *Final* Discharge Date/Time: 10/11/19 00:01 Chief Complaint: Headache Stated Complaint: DIZZY,LIGHTHEAD,HARD TO BREATHE ED Provider: Kym Kohli Discharge Problem: Headache, Generalized weakness, Dehydration, Acute UTI (urinary tract infection), Supratherapeutic INR, Hematuria Patient Disposition: Admitted As Inpatient Discharge Instructions Interventions: ED Discharge Assessment Last Done: 10/11/19 00:01 Discharge Problem: Headache Qualifiers: Headache type: unspecified Headache chronicity pattern: acute headache Intractability: not intractable Qualified Code(s): R51 - Headache Hematuria Qualifiers: Hematuria type: asymptomatic microscopic Qualified Code(s): R31.21 - Asymptomatic microscopic hematuria
--- NOTE | 2019-10-10 16:07 | XRay Report ---
XR chest 1V portable CLINICAL HISTORY: fatigue dyspnea COMPARISON STUDY: 03/13/2019 FINDINGS: Bipolar cardiac pacer in good position. No significant cardiac enlargement. The lungs are c lear. The diaphragms are smooth. IMPRESSION: No acute process. ACT 112: Negative or not required by law. The above report was generated using voice recognition software. It may contain grammatical, syntax or spelling errors. Electronically signed by: Gamaliel Garay M.D. 10/10/2019 4:06 PM
[2019-10-10 16:14] LABS: Basophils # (auto) 0.01 K/uL (0-0.2); Basophils % (auto) 0.2 %; Eosinophils # (auto) 0.01 K/uL (0-0.5); Eosinophils % (auto) 0.2 %; Hematocrit (blood only) 40.7 % (37-47); Hemoglobin 13.8 g/dL (12.0-16.0); Immature Granulocytes # (auto) 0.01 K/uL (0.00-0.02); Immature Granulocytes % (auto) 0.2 %; Lymphocytes # (auto) 0.78 K/uL (1.2-3.4); Lymphocytes % (auto) 15.3 %; Mean Corpuscular Hemoglobin 29.8 pg (25-34); Mean Corpuscular Hgb Conc 33.9 g/dL (32-36); Mean Corpuscular Volume 87.9 fL (80-100); Mean Platelet Volume 10.9 fL (7.4-10.4); Monocytes # (auto) 0.24 K/uL (0.11-0.59); Monocytes % (auto) 4.7 %; Neutrophils # (auto) 4.06 K/uL (1.4-6.5); Neutrophils % (auto) 79.4 %; Platelet Count 175 K/uL (130-400); RDW Standard Deviation 41.5 fL (36.4-46.3); Red Blood Count 4.63 M/uL (4.2-5.4); White Blood Count 5.11 K/uL (4.8-10.8)
[2019-10-10 16:34] LABS: Albumin Level 3.4 gm/dl (3.4-5.0); BUN Creatinine Ratio 17.2 (10-20); Calcium 8.7 mg/dl (8.5-10.1); Creatinine Clr Calc Pharmacy 34.4 ml/min; Est GFR (African American) 43.3; Est GFR (Non-African American) 37.3; Magnesium 1.7 mg/dl (1.8-2.4); Potassium 2.9 mmol/L (3.5-5.1)
[2019-10-10 16:45] LABS: Albumin Globulin Ratio 0.9 (0.9-2); Bilirubin,Total 0.4 mg/dl (0.2-1); Globulin 3.6 gm/dl (2.5-4.0); Thyroid Stimulating Hormone 2.76 uIu/ml (0.300-4.500); Troponin I 0.028 ng/ml (0-0.045)
[2019-10-10] MEDS ORDERED: OPTIRAY 320 125ml IV PRN (16:50)
--- NOTE | 2019-10-10 17:01 | CT Scan Report ---
CT head/brain wo con CLINICAL HISTORY: headache, fatigue COMPARISON STUDY: 12/25/2018 TECHNIQUE: Axial CT of the brain is performed from the vertex to the skull base. IV contrast was not administered for this examination. A dose lowering technique was utilized adhering to the principles of ALARA. CT DOSE: FINDINGS: No intra or extra-axial mass lesions are visualized. There is no CT evidence of acute cortical infarc tion. There is no evidence of midline shift. There is no acute hemorrhage. No calvarial fractures ar e visualized. There are moderate white matter hypodensities likely on a small vessel basis. There is no evidence of pathologic ventricular dilatation. There is no evidence of acute sinusitis IMPRESSION: No acute intracranial findings ACT 112: Negative or not required by law. Electronically signed by: Juan Pablo Man M.D. 10/10/2019 5:00 PM
--- NOTE | 2019-10-10 17:02 | CT Scan Report ---
CT angio head w con CLINICAL HISTORY: headache FATIGUE TECHNIQUE: CT angiography of the head was performed in a dynamic helical fashion during intravenous a dministration of 120 cc of Optiray 320. MIP imaging was performed. A dose lowering technique was util ized adhering to the principles of ALARA. CT DOSE: 1202.60 mGy.cm COMPARISON STUDY: No previous studies for comparison. FINDINGS: There are no lesion suspicious for aneurysm. There are no major intracranial branch occlusi ons. The dural venous sinuses appear patent. There is mild carotid and vertebral atherosclerotic calc ification. There is no evidence of significant intracranial stenosis IMPRESSION: Unremarkable CT angiography of the brain for age ACT 112: Negative or not required by law. Electronically signed by: Juan Pablo Man M.D. 10/10/2019 5:01 PM
--- NOTE | 2019-10-10 17:11 | CT Scan Report ---
CT angio neck with con CLINICAL HISTORY: headache TECHNIQUE COMPARISON STUDY: No previous studies for comparison. TECHNIQUE: CT angiography was performed from the aortic arch to the skull base. MIP imaging was perfo rmed. The patient was scanned in a dynamic helical fashion during intravenous administration of 120 c c of Optiray 320. A dose lowering technique was utilized adhering to the principles of ALARA. CT DOSE: Technique: CT angiogram of the carotid and vertebral arteries was obtained using intravenous contrast and 3-D reconstruction. NASCET criteria was utilized. Findings: There is a dilated thoracic esophagus which contains a fluid debris level. There is a multinodular th yroid gland with dominant 12 mm left lobe thyroid nodule. Current recommendations indicate no necessi ty of follow-up in a patient of this age. There is no evidence of right carotid aneurysm. There is no evidence of dissection. There are moderat e atheromatous changes the level of the right carotid bulb. There is no evidence of hemodynamically s ignificant internal carotid artery stenosis. There is no evidence of left carotid aneurysm or dissection. There are moderate atheromatous changes present within the left carotid bulb. This results in approximately 65% diameter stenosis of the dist al left common carotid. There is no evidence of hemodynamically significant vertebral stenosis. There is no evidence of verte bral dissection. IMPRESSION: 1. No evidence of hemodynamically significant internal carotid carotid or vertebral artery stenosis. No evidence of dissection. 2. Moderate atheromatous changes at the level of the left carotid bulb with approximately 65% stenosi s of the distal left common carotid ACT 112: Negative or not required by law. Electronically signed by: Juan Pablo Man M.D. 10/10/2019 5:09 PM
[2019-10-10] MEDS ORDERED: POTASSIUM CHLORIDE 20 MEQ TABCR PO STA (17:51)
[2019-10-10] MEDS ORDERED: MAGNESIUM SULFATE / D5W 1 GM/100 ML BAG IV STA (17:51)
[2019-10-10 18:27] LABS: Prothrombin Time > 90.0 Seconds (9.0-12.0)
[2019-10-10 18:28] LABS: INR > 9.7 (0.9-1.1)
[2019-10-10] MEDS ORDERED: PHYTONADIONE 5 MG in SODIUM CHLORIDE 0.9% 50 ML IV ONE (18:42)
[2019-10-10 19:18] LABS: Appearance Urine Cloudy (Clear); Bacteria Urine Automated 1+ (Negative); Bilirubin Urine Negative (Negative); Blood Urine 2+ (Negative); Color Urine Dark Yellow; Epithelial Cell Urine Auto >30 /lpf (0-5); Glucose Urine UA Negative (Negative); Ketones Urine 1+ (Negative); Leukocyte Esterase Urine 2+ (Negative); Nitrite Urine Negative (Negative); Protein Urine Trace (Negative); Specific Gravity Urine > 1.045 (1.000-1.030); Urobilinogen Urine Negative (Negative); WBC Urine Automated >30 /hpf (0-5)
[2019-10-10] MEDS ORDERED: PHYTONADIONE 2.5 MG in SODIUM CHLORIDE 0.9% 50 ML IV ONE (19:33)
[2019-10-10 19:34] LABS: RBC Urine Automated 0-4 /hpf (0-4)
[2019-10-10 19:59] LABS: Partial Thromboplastin Ratio 2.3
[2019-10-10 20:01] LABS: Partial Thromboplastin Time 62.9 Seconds (21.0-31.0)
[2019-10-10] MEDS ORDERED: cefTRIAXone SODIUM 1,000 MG/50 ML BAG IV STA (20:59)
[2019-10-11] MEDS ORDERED: POTASSIUM CHLORIDE 20 MEQ/15 ML UDC PO STA (00:06)
[2019-10-11] MEDS ORDERED: POLYETHYLENE (MIRALAX) 17 GM PACK PO PRN (01:08)
[2019-10-11] MEDS ORDERED: ACETAMINOPHEN 325 MG TAB PO PRN (01:08)
[2019-10-11] MEDS ORDERED: ONDANSETRON INJ 2 MG/ML 2 ML VIAL IV PRN (01:08)
[2019-10-11] MEDS ORDERED: NITROGLYCERIN SL 0.4 MG/TAB TAB SL PRN (01:08)
[2019-10-11] MEDS ORDERED: ALBUTEROL HFA 8 GM INHALER INH PRN (01:08)
[2019-10-11] MEDS ORDERED: GLUCAGON FOR INJ 1 MG VIAL IM PRN (01:45)
[2019-10-11] MEDS ORDERED: GLUCOSE 40% GEL 15 GM TUBE PO PRN (01:45)
[2019-10-11] MEDS ORDERED: DEXTROSE 50% 50 ML SYRINGE IV PRN (01:45)
[2019-10-11] MEDS ORDERED: GLUCOSE 10 TABS/TUBE PO PRN (01:45)
[2019-10-11] MEDS: SODIUM CHLORIDE 0.9% 1000ML 1,000 ML IV SCH ×2 (02:08→14:27)
--- NOTE | 2019-10-11 02:20 | History and Physical Report ---
DATE OF ADMISSION: 10/10/2019 CHIEF COMPLAINT: Headache. HISTORY OF PRESENT ILLNESS: This is an 78-year-old female with past medical history significant for type 2 diabetes, hypothyroidism, hyperlipidemia, mild persistent asthma, CAD, sinus node dysfunction status post pacemaker, atrial fibrillation, nonrheumatic aortic valve stenosis, diastolic CHF, GERD, glaucoma, macular degeneration, myelodysplastic syndrome, iron deficiency anemia, CAD status post stent, depression, who presents with headache. The patient lives with family and walks with a walker. The patient had some headache today that was not getting better. Thought maybe she has some dehydration. Came to the ER. In the ER, the labs showed her INR was greater than 9.7. Potassium of 2.9, magnesium 1.7, and urine was positive for UTI. Her imaging studies were unremarkable. The patient is on Coumadin for atrial fibrillation. She knows that she takes this medication, but there is some question of what medications she is taking. The patient says she takes medications with a medication box. She recognized that she takes Coumadin and also as per [facility] note she is following with the Coumadin clinic. Last Coumadin check as per [facility] on 09/27/2019 was 1.1 and on 08/15/2019 was 2.3. Denies any fever or chills. No blurred visions, no earache, no runny nose, no sore throat, no cough, no shortness of breath, no chest pain, no nausea, no vomiting, no abdominal pain, no diarrhea or constipation, no blood in the stools or black stools. No rash. Currently resting comfortably and hemodynamically stable. ALLERGIES: ADHESIVES. PAST MEDICAL HISTORY: As mentioned above. PAST SURGICAL HISTORY: Balloon angioplasty, cardiac catheterization, status post stent placement, colonoscopy, EGDs, gastric bypass for obesity, knee arthroscopy, partial hysterectomy, tonsillectomy, cholecystectomy, incisional hernia repair, bilateral shoulder arthroscopy. MEDICATIONS: As per [facility], the patient is on albuterol 2 puffs every 4 hours p.r.n., Lasix 20 mg p.o. daily, digoxin 125 mcg 5 times a week, Lantus 60 units in the morning, colchicine 0.6 mg p.o. b.i.d., Coumadin 7.5 mg as directed, Toprol-XL 37.5 mg p.o. daily, vitamin B12 1000 mcg monthly, nitroglycerin 0.4 mg sublingual p.r.n., Celexa 40 mg p.o. daily, levothyroxine 50 mcg p.o. daily, Protonix 40 mg p.o. daily, Dulcolax 10 mg p.o. daily, cyanocobalamin 500 mcg p.o. daily, ferrous sulfate 325 mg p.o. b.i.d., Flintstones plus iron 1 chew b.i.d. FAMILY HISTORY: Significant for son has allergies; father has colon cancer; mother has heart disorder, diabetes;sister has lung cancer; brother has diabetes. SOCIAL HISTORY: , lives with family. No smoking, alcohol rarely. No drug use. REVIEW OF SYSTEMS: As per HPI. Rest of review of systems negative. PHYSICAL EXAMINATION: GENERAL: The patient is alert and awake, not in acute distress. VITAL SIGNS: Temperature 36.9, pulse 61, respiratory rate 14, blood pressure 117/52, oxygen 98% on room air. HEENT: No pallor, no icterus. NECK: No JVD, no neck masses. CARDIOVASCULAR: S1, S2 heard. Regular rate and rhythm. No murmur, no gallop. RESPIRATORY SYSTEM: Normal AP diameter. No accessory muscle use. No wheezing, no crackles. ABDOMEN: Soft, bowel sounds present, nontender. No distention. CENTRAL NERVOUS SYSTEM: Cranial nerves II-XII grossly intact. Nonfocal. EXTREMITIES: No edema, no erythema. LABORATORY DATA: WBC 5.1, hemoglobin 13.8, hematocrit 40.7, platelets 175. PT greater than 90, INR greater than 9.7, APTT 62.9. Sodium 138, potassium 2.9, chloride 102, bicarbonate 27, BUN 23, creatinine 1.34, serum glucose 195, calcium 8.7, magnesium 1.7, total bilirubin 0.4, AST 21, ALT 14, alkaline phosphatase 89. Troponin 1 of 0.028, lipase 59. TSH 2.7. Urinalysis positive for ketones and positive for leukocyte esterase. IMAGING DATA: Chest x-ray, no acute process. CT of the head, no acute intracranial findings. Unremarkable CT angiogram of the brain. CTA of the neck, no evidence of hemodynamically significant internal carotid or vertebral artery stenosis. No evidence of dissection. Moderate atheromatous changes in the level of the left carotid bulb with approximately 65% stenosis of the distal left common carotid. EKG: AFib with occasional ventricular paced complexes, rate of 70, right bundle branch block. ASSESSMENT AND PLAN: This is an 78-year-old female who presents with headache and found to have urinary tract infection and also electrolyte abnormalities and elevated INR. 1. Headache, could be mostly from dehydration, also could be from the urinary tract infection. Receiving Rocephin. We will follow the cultures. Gentle fluids. 2. Hypokalemia and hypomagnesemia. We will replace. Follow the repeat labs. 3. Acute kidney injury. Baseline creatinine of 0.9, presently with creatinine of 1.34. Getting labs. We will follow the repeat labs in the a.m. 4. Elevated INR, on Coumadin for atrial fibrillation. INR greater than 9.7. Received IV vitamin K in the ER. We will follow the repeat levels in the a.m. Needs to notify Coumadin clinic on discharge for close monitoring of the PT/INR. 5. History of atrial fibrillation. History of sinus node dysfunction status post pacemaker, rate controlled currently with Toprol-XL and digoxin. Holding the Coumadin. 6. Diabetes. Continue Lantus plus insulin sliding scale. We will monitor blood sugars. 7. History of pericarditis, was treated with colchicine. The patient says she is still taking colchicine. Has followup appointment with cardiology. 8. Myelodysplastic syndrome and iron deficiency anemia, on iron supplements. 9. Diastolic congestive heart failure, on Lasix 20 mg daily and Lanoxin, Toprol-XL. Monitor for volume overload. 10. Depression, Celexa. 11. Gastroesophageal reflux disease, Protonix. 12. Hypothyroidism, Synthroid. 13. Deep venous thrombosis prophylaxis. INR is supratherapeutic. DISPOSITION: Closely monitor in the med tele. Level 1 full code. PT and OT prior to discharge. Social service to help with discharge planning. YAN
[2019-10-11 05:42] LABS: Basophils # (auto) 0.01 K/uL (0-0.2); Basophils % (auto) 0.3 %; Eosinophils # (auto) 0.05 K/uL (0-0.5); Eosinophils % (auto) 1.3 %; Hematocrit (blood only) 37.2 % (37-47); Hemoglobin 12.3 g/dL (12.0-16.0); Lymphocytes # (auto) 1.03 K/uL (1.2-3.4); Lymphocytes % (auto) 26.4 %; Mean Corpuscular Hemoglobin 29.3 pg (25-34); Mean Corpuscular Hgb Conc 33.1 g/dL (32-36); Mean Corpuscular Volume 88.6 fL (80-100); Mean Platelet Volume 10.5 fL (7.4-10.4); Monocytes # (auto) 0.38 K/uL (0.11-0.59); Monocytes % (auto) 9.7 %; Neutrophils # (auto) 2.43 K/uL (1.4-6.5); Neutrophils % (auto) 62.3 %; Platelet Count 157 K/uL (130-400); RDW Standard Deviation 41.9 fL (36.4-46.3)
[2019-10-11] MEDS: LEVOTHYROXINE SODIUM 50 MCG TABLET PO SCH (05:53)
[2019-10-11 06:08] LABS: INR 3.3 (0.9-1.1); Prothrombin Time 32.6 Seconds (9.0-12.0)
[2019-10-11 06:16] LABS: Estimated Average Glucose 177 mg/dl; Hemoglobin A1C 7.8 % (4.5-5.6)
[2019-10-11 06:23] LABS: BUN Creatinine Ratio 18.6 (10-20); Calcium 8.5 mg/dl (8.5-10.1); Creatinine Clr Calc Pharmacy 43.9 ml/min; Est GFR (African American) 58.1; Est GFR (Non-African American) 50.1; Magnesium 2.1 mg/dl (1.8-2.4); Potassium 3.7 mmol/L (3.5-5.1)
[2019-10-11] MEDS: INSULIN ASPART 100 UNITS/ML 3 ML PEN SC SCH ×4 (08:26→20:20)
[2019-10-11] MEDS: FERROUS SULFATE 325 MG TAB PO SCH ×2 (08:27→17:19)
[2019-10-11] MEDS: CLOPIDOGREL BISULFATE 75 MG TAB PO SCH (08:27)
[2019-10-11] MEDS: FUROSEMIDE 20 MG TAB PO SCH (08:27)
[2019-10-11] MEDS: FLINTSTONES COMPLETE CHEWABLE TAB PO SCH (08:27)
[2019-10-11] MEDS: METOPROLOL SUCC 25MG EXT REL TAB PO SCH (08:28)
[2019-10-11] MEDS: CYANOCOBALAMIN 500 MCG TABLET (VITAMIN B-12) PO SCH (08:28)
[2019-10-11] MEDS: PANTOprazole 40 MG TAB PO SCH (08:28)
[2019-10-11] MEDS: CITALOPRAM 40 MG TAB PO SCH (08:28)
[2019-10-11] MEDS: INSULIN GLARGINE SOLOSTAR 100 UNITS/ML 3 ML PEN SQ SCH (08:29)
--- NOTE | 2019-10-11 14:21 | Communication Note ---
Date of Service: October 11, 2019 The patient was seen and examined in medical telemetry unit Her admitting complaint was mainly headache but noted to have UTI, dehydration with acute kidney injury and elevated INR She has been feeling a lot better following administration of IV fluid and IV antibiotic Remains hemodynamically stable and afebrile Chest-clear to auscultate bilaterally Heart-S1-S2, irregular Abdomen-benign Extremities-negative for any edema [employer]-alert, awake and oriented x3 Her labs and imaging studies reviewed Possible UTI-await culture report and continue current antibiotic KATHY secondary to dehydration-improved Received vitamin K for supratherapeutic INR and that has been improving Other medical conditions-remains stable Dr Hay Santana r
--- NOTE | 2019-10-11 17:12 | Hospitalist Progress Note ---
Date of Service October 11, 2019 Assessment & Plan (1) Headache: Admitted with headache and noted to have possible UTI and KATHY with high INR CT of the head and CTA of the head and neck were unremarkable Headache is resolved (2) KATHY (acute kidney injury): Creatinine was noted to be 1.34 on admission likely secondary to dehydration Received intravenous fluid Kidney function normalized as of this morning Advised more fluid intake orally (3) UTI (urinary tract infection): Suspected UTI as per UA examination Has been getting intravenous ceftriaxone for that Await urine culture (4) DM type 2 (diabetes mellitus, type 2): Hold oral diabetic agents SSI (5) Atrial fibrillation: Heart rate is controlled with paced rhythm Has been on Coumadin-noted to have supratherapeutic INR Received vitamin K Coumadin is on hold for now Monitor INR (6) Hypothyroidism: Continue supplement Admission and Anticipated Discharge Date Admission Date: October 10, 2019 Subjective The patient was seen and examined in medical telemetry She has been feeling a lot better since admission and denies any headache She denies any fever and/or chills, no dysuria and no nausea and or vomiting Review of Systems Review of Systems: All systems reviewed and are unremarkable except as noted below Neurologic: no headache(s) Physical Exam Physical Exam: Lying in bed comfortably Constitutional: well developed and well nourished; no acute distress and not ill appearing Eyes: PERRL, conjunctivae normal, anicteric sclerae ENMT: external ear and nose normal, oropharynx normal Neck: trachea midline, no thyromegaly Respiratory: normal respiratory effort; no respiratory distress Auscultation: lungs clear to auscultation bilaterally Cardiovascular: Rate/Rhythm: regular rate and regular rhythm Heart Sounds: no murmur Gastrointestinal (Abdomen): Inspection/Auscultation: abdomen normal to inspection and normal bowel sounds; abdomen not distended Percussion/Palpation: abdomen soft; abdomen nontender Musculoskeletal: No acute arthritis involving any joints Neurologic: moves all extremities; no focal motor deficits Alert, awake and oriented x3. Psychiatric: A+Ox3, euthymic affect Results & Data Results & Data ([facility]) Vital Signs (Past 12 Hours) Vital Signs Temp Pulse Pulse Resp BP Pulse Ox 10/11/19 16:08 67 10/11/19 15:12 37 C 62 18 128/76 98 10/11/19 11:17 36.4 C L 66 18 130/75 99 07/28/20 07:11 36.9 C 66 18 133/80 97 Laboratory Results Short CBC 10/11/19 Range/Units 05:23 WBC 3.90 L (4.8-10.8) K/uL Hgb 12.3 (12.0-16.0) g/dL Hct 37.2 (37-47) % Plt Count 157 (130-400) K/uL BMP 10/11/19 05:23 Sodium 143 Potassium 3.7 D Chloride 108 H Carbon Dioxide 29 BUN 20 H Creatinine 1.05 Glucose 130 H Calcium 8.5 Urine 10/10/19 Range/Units 19:00 Urine Color Dark Yellow Urine Appearance Cloudy A (Clear) Urine pH 5.0 (4.5-7.5) Ur Specific [place] > 1.045 H (1.000-1.030) Urine Protein Trace H (Negative) Urine Glucose (UA) Negative (Negative) Medications Administered Current Inpatient Medications Acetaminophen (Tylenol) 650 mg PO Q4H PRN PRN Reason: Pain or Fever Stop: 11/10/19 01:07 Albuterol (Ventolin Hfa) 2 puffs INH Q4H PRN PRN Reason: Shortness Of Breath Or Wheezing Stop: 11/10/19 01:07 Citalopram Hydrobromide (Celexa) 40 mg PO DAILY [facility] Stop: 11/10/19 08:59 Last Admin: 10/11/19 08:28 Dose: 40 mg Documented by: Cl[facility]idogrel [facility] ([facility]ix) [facility] [place] Stop: 11/10/19 08:59 Last Admin: 10/11/19 08:27 Dose: 75 mg Documented by: Cyanocobalamin (Vitamin B-12) 500 mcg PO QAM [facility] Stop: 11/10/19 08:59 Last Admin: 10/11/19 08:28 Dose: 500 mcg Documented by: Dextrose (Dextrose 50%) 25 - 50 ml IV UD PRN; Protocol PRN Reason: Hypoglycemia Protocol Stop: 11/10/19 01:44 Digoxin (Lanoxin) 0.125 mg PO [id number] [facility] Stop: 11/10/19 15:59 Ferrous Sulfate (Feosol) 325 mg PO BIDM [facility] Stop: 11/10/19 07:59 Last Admin: 10/11/19 08:27 Dose: 325 mg Documented by: Furosemide (Lasix) 20 mg PO DAILY [facility] Stop: 11/10/19 08:59 Last Admin: 10/11/19 08:27 Dose: 20 mg Documented by: Glucagon (Glucagen) 1 mg IM UD PRN; Protocol PRN Reason: Hypoglycemia Protocol Stop: 11/10/19 01:44 Glucose (Glucose 40%) 15 - 30 gm PO UD PRN; Protocol PRN Reason: Hypoglycemia Protocol Stop: 11/10/19 01:44 Glucose (Dex4 Glucose) 4 - 8 tabs PO UD PRN; Protocol PRN Reason: Hypoglycemia Protocol Stop: 11/10/19 01:44 Sodium Chloride (Nss 1000ml) 1,000 mls @ 75 mls/hr IV .[id number] [facility] Stop: 11/10/19 01:07 Last Admin: 10/11/19 14:27 Dose: 75 mls/hr Documented by: Ceftriaxone Sodium 2,000 mg/ (Dextrose) 70 mls @ 100 mls/hr IV Q24H [facility]; Protocol Stop: 10/16/19 20:59 Insulin Aspart (Novolog Flexpen) 0 units SC ACHS [facility] Stop: 11/10/19 07:29 Last Admin: 10/11/19 12:47 Dose: 4 units Documented by: Insulin Glargine (Lantus Solostar Pen) 16 [facility] [place] Stop: 11/10/19 08:59 Last Admin: 10/11/19 08:29 Dose: 16 units Documented by: Levothyroxine Sodium (Synthroid) 50 mcg PO DAILYBB [facility] Stop: 11/10/19 06:29 Last Admin: 10/11/19 05:53 Dose: 50 mcg Documented by: Metoprolol Succinate (Toprol Xl) 25 mg PO QAM [facility] Stop: 11/10/19 08:59 Last Admin: 10/11/19 08:28 Dose: 25 mg Documented by: Miscellaneous (Carbohydrates For Hypoglycemia) 15 - 30 gm PO UD PRN PRN Reason: Hypoglycemia Treatment Stop: 11/10/19 01:44 Multivitamins/Folic Acid/Vitamin C (Flintstones Complete Chew Tab) 1 tab [facility] [place] Stop: 11/10/19 08:59 Last Admin: 10/11/19 08:27 Dose: 1 tab Documented by: Nitroglycerin (Nitrostat) 0.4 mg SL UD PRN PRN Reason: Chest Pain Stop: 11/10/19 01:07 Ondansetron HCl (Zofran) 4 mg IV Q6H PRN PRN Reason: Nausea Stop: 11/10/19 01:07 Pantoprazole Sodium (Protonix) 40 mg PO DAILY [facility] Stop: 11/10/19 08:59 Last Admin: 10/11/19 08:28 Dose: 40 mg Documented by: Polyethylene Glycol (Miralax Powder Packet) 17 gm PO DAILY PRN PRN Reason: Constipation Stop: 11/10/19 01:07
[2019-10-11] MEDS: DIGOXIN 0.125 MG TAB PO SCH (17:19)
[2019-10-11] MEDS: CARBOHYDRATES FOR HYPOGLYCEMIA PO PRN (20:15)
[2019-10-11] MEDS: cefTRIAXone SODIUM 2,000 MG in DEXTROSE 5% 50 ML IV SCH (20:47)
[2019-10-12] MEDS: SODIUM CHLORIDE 0.9% 1000ML 1,000 ML IV SCH ×2 (04:24→17:27)
[2019-10-12] MEDS: LEVOTHYROXINE SODIUM 50 MCG TABLET PO SCH (06:38)
[2019-10-12 08:34] LABS: Basophils # (auto) 0.02 K/uL (0-0.2); Basophils % (auto) 0.5 %; Eosinophils # (auto) 0.06 K/uL (0-0.5); Eosinophils % (auto) 1.6 %; Hematocrit (blood only) 37.2 % (37-47); Hemoglobin 12.3 g/dL (12.0-16.0); Immature Granulocytes # (auto) 0.01 K/uL (0.00-0.02); Immature Granulocytes % (auto) 0.3 %; Lymphocytes # (auto) 0.94 K/uL (1.2-3.4); Lymphocytes % (auto) 24.4 %; Mean Corpuscular Hemoglobin 29.4 pg (25-34); Mean Corpuscular Hgb Conc 33.1 g/dL (32-36); Mean Corpuscular Volume 88.8 fL (80-100); Mean Platelet Volume 10.2 fL (7.4-10.4); Monocytes # (auto) 0.25 K/uL (0.11-0.59); Monocytes % (auto) 6.5 %; Neutrophils # (auto) 2.57 K/uL (1.4-6.5); Neutrophils % (auto) 66.7 %; Platelet Count 167 K/uL (130-400); RDW Coefficient of Variation 12.9 % (11.5-14.5); RDW Standard Deviation 42.2 fL (36.4-46.3); Red Blood Count 4.19 M/uL (4.2-5.4); White Blood Count 3.85 K/uL (4.8-10.8)
[2019-10-12 08:41] LABS: INR 2.4 (0.9-1.1); Prothrombin Time 23.7 Seconds (9.0-12.0)
[2019-10-12] MEDS: FLINTSTONES COMPLETE CHEWABLE TAB PO SCH (09:10)
[2019-10-12] MEDS: CITALOPRAM 40 MG TAB PO SCH (09:10)
[2019-10-12] MEDS: CYANOCOBALAMIN 500 MCG TABLET (VITAMIN B-12) PO SCH (09:10)
[2019-10-12] MEDS: PANTOprazole 40 MG TAB PO SCH (09:10)
[2019-10-12] MEDS: FUROSEMIDE 20 MG TAB PO SCH (09:11)
[2019-10-12] MEDS: FERROUS SULFATE 325 MG TAB PO SCH ×2 (09:11→17:24)
[2019-10-12] MEDS: METOPROLOL SUCC 25MG EXT REL TAB PO SCH (09:11)
[2019-10-12] MEDS: CLOPIDOGREL BISULFATE 75 MG TAB PO SCH (09:11)
[2019-10-12 09:12] LABS: BUN Creatinine Ratio 12.9 (10-20); Calcium 8.3 mg/dl (8.5-10.1); Creatinine Clr Calc Pharmacy 51.5 ml/min; Est GFR (African American) 71.9; Est GFR (Non-African American) 62.1; Potassium 3.7 mmol/L (3.5-5.1)
[2019-10-12] MEDS: INSULIN GLARGINE SOLOSTAR 100 UNITS/ML 3 ML PEN SQ SCH (09:12)
[2019-10-12] MEDS: INSULIN ASPART 100 UNITS/ML 3 ML PEN SC SCH ×4 (09:14→20:30)
--- NOTE | 2019-10-12 13:01 | Cardiology Consultation ---
Date of Consultation October 12, 2019 Assessment & Plan (1) Acute UTI (urinary tract infection): (2) Dehydration: (3) Generalized weakness: (4) Supratherapeutic INR: (5) Atrial fibrillation: (6) Pacemaker: (7) CAD (coronary artery disease): (8) Nausea & vomiting: As outlined above the patient is being transferred to a higher level of care. A KUB was obtained which was unremarkable. Cardiac ramírez I believe at present she is stable and will be evaluated further after she arrives on the PCU. History of Present Illness Attending Physician: José Miguel Coleman MD History of Present Illness This is an elderly 78-year-old female with the cardiac history as outlined below. She has had multiple admissions to [facility] in the past. She presented due to headache pain. She was found to have a markedly elevated INR. Fortunately, imaging showed no acute bleeding into her brain. She was admitted to the telemetry floor where she was being treated for a UTI. She has been taken off of warfarin and her INR is now 2.4 coming down from 9.7. The patient did not present with any particular cardiac complaints. When I was evaluating her for this consult however, she had just eaten lunch and taken her pills. She soon after developed upper chest and throat discomfort stating that she felt like a pill or something was stuck in her throat. She had no trouble breathing and her oxygen saturations were fine. She was diaphoretic. She was hemodynamically stable and 1 sublingual nitro was given without relief of her discomfort. She did vomit stomach contents along with her pills. She continued to feel poorly and arrangements were made for transfer to a higher level care. Past cardiac history: 1. Atherosclerotic coronary artery disease status post prior coronary interventions including PTCA and stenting of the right coronary artery in 1995, repeat coronary interventions in July of 2011 receiving atherectomy and stenting of the right coronary artery, and separate procedure with a drug- eluting stent to the mid left anterior descending, December 2011. 2. Stable class I-II angina pectoris. 3. Preserved LV systolic function with chronic diastolic dysfunction. 4. Mild aortic stenosis with mild aortic root dilatation/ mild mitral stenosis 5. Hypertension. 6. Hyperlipidemia. 7. Myelodysplastic syndrome with chronic iron deficiency anemia 8. Cardiac catheterization at [facility] November 20, 2016 high-grade mid left anterior descending stenosis, technically difficult procedure. S/P PCI with Cobra stent to the mid LAD stenosis with occlusion of small diseased diagonal branch) on 12/04/[address] [facility]. 9. Postprocedural sinus arrest with extended pause and subsequent dual-chamber pacemaker insertion November 21, [address] BOYCE [id number] 10.Status post coronary angiography and subsequent coronary intervention on 12/31/2017, receiving a drug-eluting stent to 80% narrowing of an ostial diagonal lesion, for persistent cardiac symptoms, abnormal stress testing. 11. Persistent atrial fibrillation 12. Transient pericardial effusion February 2019 Allergies Allergy/AdvReac Type Severity Reaction Status Date / Time adhesive Allergy Unknown ADHESIVE Verified 10/10/19 16:16 TAPE Home Medications Home Medications Medication Instructions Recorded Confirmed Type Lantus Solostar U-100 Insulin 16 unit SUBCUT QAM 12/06/17 10/10/19 History metoprolol succinate 25 mg PO QAM 12/06/17 10/10/19 History pediatric multivitamin 1 tab PO QAM 12/06/17 10/10/19 History [Flintstones Multivitamin] albuterol sulfate 2 puff INHALATION Q4H PRN 11/08/18 10/10/19 History clopidogrel [Plavix] 75 mg PO QAM 11/08/18 10/10/19 History cyanocobalamin (vitamin B-12) 500 mcg PO QAM 11/08/18 10/10/19 History ferrous sulfate 325 mg PO BID 11/08/18 10/10/19 History citalopram 40 mg PO DAILY 03/13/19 10/10/19 History levothyroxine 50 mcg PO DAILY 03/13/19 10/10/19 History pantoprazole [Protonix] 40 mg PO DAILY 03/13/19 10/10/19 History prednisone 5 mg PO DAILY #7 tab 03/22/19 10/10/19 Rx Coumadin 7.5 mg PO DAILY 10/10/19 10/10/19 History digoxin 125 mcg PO USEASDIRECTD 10/10/19 10/10/19 History furosemide 20 mg PO DAILY 10/10/19 10/10/19 History Patient History Medical History Aortic root dilatation (Chronic) 4.4 cm on echo 01/2019 Asthma (Chronic) Bifascicular block CAD (coronary artery disease) (Chronic) "1995 - PTCA and stenting of RCA 07/2011 - atherectomy and stenting RCA 12/2011- AZALIA to the mid LAD 2016-Cobra stent to mid LAD 2018-AZALIA to ostial diagonal Depression (Chronic) DM type 2 (diabetes mellitus, type 2) (Chronic) Dyslipidemia (Chronic) Hypothyroidism (Chronic) HOMERO (iron deficiency anemia) (Chronic) Macular degeneration (Chronic) MDS (myelodysplastic syndrome) (Chronic) Mild aortic stenosis (Chronic) Pacemaker Sinus node dysfunction Surgical History History of angioplasty (Chronic) History of arthroscopy of knee (Chronic) History of arthroscopy of shoulder (Chronic) History of cholecystectomy (Chronic) History of gastric bypass (Chronic) History of incisional hernia repair (Chronic) History of partial hysterectomy (Chronic) History of tonsillectomy (Chronic) Family History Father Colorectal cancer Sister Lung cancer Diabetes Brother Diabetes Mother Diabetes Social History Smoking Status: Never smoker Hx Alcohol Use: No Hx Substance Use: No Preferred Language: Yakut Communication Ability: Effective Visual Impairment: No Limitations Hearing Ability: Normal Detective Sergeant Required: No Beliefs That Will Affect Care: None marital status: / Current Living Situation: Family Current Living Situation Comment: Pt lives with her son, [id number], daughter, son-in-law, & 2 children current occupational status: retired How many Children do You have: 3 Other Information That Helps Us Care for You: No Feels Safe at Home: Yes Review of Systems Review of Systems: All systems reviewed & are unremarkable except as noted in HPI & below Nothing additional to add Physical Exam Physical Exam: General: no acute distress and stated age Head: normocephalic, no masses, lesions, tenderness or abnormalities Eyes: conjunctiva are pink and non-injected, sclera clear Neck: supple, no adenopathy, no bruits, normal jugular venous pulse, no hepatojugular reflux Chest: normal shape and normal respiratory effort Lungs: clear to auscultation and percussion Cardiac Exam: - regular rate & rhythm, no murmurs gallops or rubs - normal S1, normal S2 Pulses: 2(+) throughout Abdomen: abdomen soft, non-tender, no abnormal masses and no hepatosplenomegaly Musculoskeletal: no gait disturbance, no joint inflammation, no deforming arthritis Extremities: no edema and no cyanosis Neuro: grossly normal exam Results & Data ([facility]) Vital Signs (Past 12 Hours) Vital Signs Temp Pulse Resp BP Pulse Ox 10/12/19 11:42 36.5 C 51 L 18 158/59 H 94 10/12/19 10:42 185/92 H 10/12/19 07:34 36.8 C 63 16 170/83 H 97 10/12/19 03:43 36.6 C 63 20 134/80 98 Laboratory Results Laboratory Results - last 24 hr 10/11/19 10/11/19 10/11/19 16:37 20:10 20:12 WBC RBC Hgb Hct MCV MCH MCHC RDW Std Deviation RDW Coeff of Gaston Plt Count MPV Immature Gran % (Auto) Neut % (Auto) Lymph % (Auto) Wilkinson % (Auto) Eos % (Auto) Baso % (Auto) Neut # (Auto) Lymph # (Auto) Wilkinson # (Auto) Eos # (Auto) Baso # (Auto) Immature Gran # (Auto) PT INR Sodium Potassium Chloride Carbon Dioxide Anion Gap BUN Creatinine Est Cr Clr Drug Dosing Est GFR ( Amer) Est GFR (Non-Af Amer) BUN/Creatinine Ratio Glucose POC Glucose 115 H 66 L* 63 L* Calcium Troponin I 10/11/19 10/12/19 10/12/19 20:36 07:42 08:16 WBC 3.85 L RBC 4.19 L Hgb 12.3 Hct 37.2 MCV 88.8 MCH 29.4 MCHC 33.1 RDW Std Deviation 42.2 RDW Coeff of Gaston 12.9 Plt Count 167 MPV 10.2 Immature Gran % (Auto) 0.3 Neut % (Auto) 66.7 Lymph % (Auto) 24.4 Wilkinson % (Auto) 6.5 Eos % (Auto) 1.6 Baso % (Auto) 0.5 Neut # (Auto) 2.57 Lymph # (Auto) 0.94 L Wilkinson # (Auto) 0.25 Eos # (Auto) 0.06 Baso # (Auto) 0.02 Immature Gran # (Auto) 0.01 PT INR Sodium Potassium Chloride Carbon Dioxide Anion Gap BUN Creatinine Est Cr Clr Drug Dosing Est GFR ( Amer) Est GFR (Non-Af Amer) BUN/Creatinine Ratio Glucose POC Glucose 130 H 94 Calcium Troponin I 10/12/19 10/12/19 10/12/19 08:16 08:16 10:40 WBC RBC Hgb Hct MCV MCH MCHC RDW Std Deviation RDW Coeff of Gaston Plt Count MPV Immature Gran % (Auto) Neut % (Auto) Lymph % (Auto) Wilkinson % (Auto) Eos % (Auto) Baso % (Auto) Neut # (Auto) Lymph # (Auto) Wilkinson # (Auto) Eos # (Auto) Baso # (Auto) Immature Gran # (Auto) PT 23.7 H INR 2.4 H Sodium 142 Potassium 3.7 Chloride 110 H Carbon Dioxide 27 Anion Gap 6.0 BUN 11 Creatinine 0.88 Est Cr Clr Drug Dosing 51.5 Est GFR ( Amer) 71.9 Est GFR (Non-Af Amer) 62.1 BUN/Creatinine Ratio 12.9 Glucose 91 POC Glucose 104 H Calcium 8.3 L Troponin I 10/12/19 10/12/19 11:29 11:45 WBC RBC Hgb Hct MCV MCH MCHC RDW Std Deviation RDW Coeff of Gaston Plt Count MPV Immature Gran % (Auto) Neut % (Auto) Lymph % (Auto) Wilkinson % (Auto) Eos % (Auto) Baso % (Auto) Neut # (Auto) Lymph # (Auto) Wilkinson # (Auto) Eos # (Auto) Baso # (Auto) Immature Gran # (Auto) PT INR Sodium Potassium Chloride Carbon Dioxide Anion Gap BUN Creatinine Est Cr Clr Drug Dosing Est GFR ( Amer) Est GFR (Non-Af Amer) BUN/Creatinine Ratio Glucose POC Glucose 103 H Calcium Troponin I 0.031 Medications Administered Current Inpatient Medications Acetaminophen (Tylenol) 650 mg PO Q4H PRN PRN Reason: Pain or Fever Stop: 11/10/19 01:07 Albuterol (Ventolin Hfa) 2 puffs INH Q4H PRN PRN Reason: Shortness Of Breath Or Wheezing Stop: 11/10/19 01:07 Citalopram Hydrobromide (Celexa) 40 mg PO DAILY SYED Stop: 11/10/19 08:59 Last Admin: 10/12/19 09:10 Dose: 40 mg Documented by: Clopidogrel Bisulfate (Plavix) 75 mg PO QAM [facility] Stop: 11/10/19 08:59 Last Admin: 10/12/19 09:11 Dose: 75 mg Documented by: Cyanocobalamin (Vitamin B-12) 500 mcg PO QAM [facility] Stop: 11/10/19 08:59 Last Admin: 10/12/19 09:10 Dose: 500 mcg Documented by: Dextrose (Dextrose 50%) 25 - 50 ml IV UD PRN; Protocol PRN Reason: Hypoglycemia Protocol Stop: 11/10/19 01:44 Digoxin (Lanoxin) 0.125 mg PO [id number]@1600 [facility] Stop: 11/10/19 15:59 Last Admin: 10/11/19 17:19 Dose: 0.125 mg Documented by: Ferrous Sulfate (Feosol) 325 mg PO BIDM [facility] Stop: 11/10/19 07:59 Last Admin: 10/12/19 09:11 Dose: 325 mg Documented by: Furosemide (Lasix) 20 mg PO DAILY [facility] Stop: 11/10/19 08:59 Last Admin: 10/12/19 09:11 Dose: 20 mg Documented by: Glucagon (Glucagen) 1 mg IM UD PRN; Protocol PRN Reason: Hypoglycemia Protocol Stop: 11/10/19 01:44 Glucose (Glucose 40%) 15 - 30 gm PO UD PRN; Protocol PRN Reason: Hypoglycemia Protocol Stop: 11/10/19 01:44 Glucose (Dex4 Glucose) 4 - 8 tabs PO UD PRN; Protocol PRN Reason: Hypoglycemia Protocol Stop: 11/10/19 01:44 Sodium Chloride (Nss 1000ml) 1,000 mls @ 75 mls/hr IV .[id number] [facility] Stop: 11/10/19 01:07 Last Admin: 10/12/19 04:24 Dose: 75 mls/hr Documented by: Ceftriaxone Sodium 2,000 mg/ (Dextrose) 70 mls @ 100 mls/hr IV Q24H [facility]; Protocol Stop: 10/16/19 20:59 Last Infusion: 10/11/19 21:53 Dose: Infused Documented by: Insulin Aspart (Novolog Flexpen) 0 units SC ACHS [facility] Stop: 11/10/19 07:29 Last Admin: 10/12/19 12:31 Dose: Not Given Documented by: Insulin Glargine (Lantus Solostar Pen) 16 units SQ QAM [facility] Stop: 11/10/19 08:59 Last Admin: 10/12/19 09:12 Dose: 16 units Documented by: Levothyroxine Sodium (Synthroid) 50 mcg PO DAILYBB [facility] Stop: 11/10/19 06:29 Last Admin: 10/12/19 06:38 Dose: 50 mcg Documented by: Metoprolol Succinate (Toprol Xl) 25 mg PO QAM [facility] Stop: 11/10/19 08:59 Last Admin: 10/12/19 09:11 Dose: 25 mg Documented by: Miscellaneous (Carbohydrates For Hypoglycemia) 15 - 30 gm PO UD PRN PRN Reason: Hypoglycemia Treatment Stop: 11/10/19 01:44 Last Admin: 10/11/19 20:15 Dose: 15 gm Documented by: Multivitamins/Folic Acid/Vitamin C (Flintstones Complete Chew Tab) [facility] Stop: 11/10/19 08:59 Last Admin: 10/12/19 09:10 Dose: 1 tab Documented by: Nitroglycerin (Nitrostat) 0.4 mg SL UD PRN PRN Reason: Chest Pain Stop: 11/10/19 01:07 Last Admin: 10/12/19 13:12 Dose: 0.4 mg Documented by: Ondansetron HCl (Zofran) 4 mg IV Q6H PRN PRN Reason: Nausea Stop: 11/10/19 01:07 Pantoprazole Sodium (Protonix) 40 mg PO DAILY [facility] Stop: 11/10/19 08:59 Last Admin: 10/12/19 09:10 Dose: 40 mg Documented by: Polyethylene Glycol (Miralax Powder Packet) 17 gm PO DAILY [facility] Stop: 11/11/19 13:59 (1) CAD (coronary artery disease) Associated angina: without angina Coronary Disease-Associated Artery/Lesion type: [place] artery [place] vs. transplanted heart: [place] heart Qualified Code(s): I25.10 - Atherosclerotic heart disease of [place] coronary artery without angina pectoris
--- NOTE | 2019-10-12 13:31 | XRay Report ---
XR chest 1V portable, XR KUB/Abdomen 1 view HISTORY: 78 years-old Female ? Aspiration acute shortness of breath with abdominal pain COMPARISON: Chest radiograph 10/10/2019, CT abdomen and pelvis 02/22/2019 TECHNIQUE: Portable AP view of the chest FINDINGS: CHEST: Cardiac silhouette is mildly enlarged. Calcified plaque of the thoracic aortic arch. Left subclavian pacer. There is a line along the left superior and lateral left hemithorax, from the rib ca ge by approximately 7 mm. This is new from comparison. No pleural effusion or overt pulmonary edema. Mild left basilar opacities suggest atelectasis. Degenerative changes of the shoulders and spine. Pos toperative changes of the bilateral humeral heads. KUB: Vascular calcifications. Surgical rodrigo of the abdominal left upper quadrant. Moderate fecal retent ion. Renal shadows are obscured by bowel gas. No definite urolith. No pneumatosis or pneumoperitoneum . Degenerative changes of the spine, pelvis and hips. IMPRESSION: 1. Probable skinfold of the lateral left hemithorax. A small pneumothorax is considered less likely. Confirmation with follow-up inspiration and expiration views of the chest recommended. 2. Moderate fecal retention with nonobstructive bowel gas pattern. ACT 112: Negative or not required by law. The above report was generated using voice recognition software. It may contain grammatical, syntax o r spelling errors. Electronically signed by: Kirt Nova M.D. 10/12/2019 1:30 PM
--- NOTE | 2019-10-12 15:39 | CT Scan Report ---
CT OF THE CHEST WITHOUT IV CONTRAST CLINICAL HISTORY: Shortness of breath. Equivocal left pneumothorax on chest radiograph. Evaluate for pneumothorax. COMPARISON STUDY: Chest CT February 22, 2019. Chest radiograph performed earlier today. CT DOSE: 260.19 mGy.cm TECHNIQUE: Axial images of the chest were obtained without IV contrast. Images were reviewed in the axial, sagittal, and coronal planes. IV contrast was not administered for this examination. Automat ed exposure control was utilized for the study. A dose lowering technique was utilized adhering to t he principles of ALARA. FINDINGS: There is no pneumothorax. The possible pneumothorax on chest radiograph performed earlier today was due to a skinfold. There is a trace left pleural effusion. Mild left lower lobe groundglass opacity favors atelectasis. There is no consolidation. The central airways are patent. No enlarged a xillary, mediastinal or hilar lymph nodes are present. The heart is moderately enlarged. A dual-lead left subclavian pacemaker is in place. There is no pericardial effusion. Extensive coronary calcifica tion is noted. There is no pneumomediastinum. The esophagus is markedly dilated and filled with debri s/ingested contents. This represents a significant change since CT of February 22, 2019. Patient is s tatus post gastric bypass. Apparent caliber change at the level of the GE junction is noted on axial image [id number] at the level of the diaphragmatic hiatus. No underlying mass is identified although sen sitivity is diminished given CT technique. No suspicious lesions within the bony thorax are noted. Ex tensive vascular calcification within the upper abdomen is incidentally noted. A 2.1 cm wedge-shaped hypodensity within the anterior upper aspect of the spleen is noted. This was not evident on CT of 2018. IMPRESSION: 1. No pneumothorax. The possible left pneumothorax and chest radiograph was artifactual. 2. Markedly dilated esophagus filled with debris/ingested contents which may increase risk for aspira tion. This is a change since CT of February 22, 2019. Apparent caliber change at the GE junction at t he level of the diaphragmatic hiatus. Underlying stricture cannot be excluded. Although no mass ident ified, a mass cannot be excluded by CT. GI consultation is recommended. Previous gastric bypass. 3. 2.1 cm wedge-shaped hypodensity within the spleen which suggests an age indeterminate small infarc t. 4. Trace left pleural effusion. Mild left lung opacity which favors atelectasis. 5. Moderate cardiomegaly. Extensive coronary artery calcification. ACT 112: Negative or not required by law. Electronically signed by: Osorio Cristobal M.D. 10/12/2019 3:37 PM
[2019-10-12] MEDS: POLYETHYLENE (MIRALAX) 17 GM PACK PO SCH (15:54)
[2019-10-12] MEDS: DIGOXIN 0.125 MG TAB PO SCH (16:56)
--- NOTE | 2019-10-12 18:50 | Hospitalist Progress Note ---
Date of Service October 12, 2019 Assessment & Plan (1) Headache: CT Head: No acute intracranial findings Head CTA:Unremarkable CT angiography of the brain for age Neck CTA:No evidence of hemodynamically significant internal carotid carotid or vertebral artery stenosis. No evidence of dissection. Moderate atheromatous changes at the level of the left carotid bulb with approximately 65% stenosis of the distal left common carotid Headache resolved Intermittent Confusion ? Baseline DD: delirium, UTI CT head as above Reorient frequently Monitor Check Digoxin level Normal TSH Esophageal Dilatation ? Aspiration issues --CT ABD:No pneumothorax. The possible left pneumothorax and chest radiograph was artifactual. Markedly dilated esophagus filled with debris/ingested contents which may increase risk for aspiration. This is a change since CT of February 22, 2019. Apparent caliber change at the GE junction at the level of the diaphragmatic hiatus. Underlying stricture cannot be excluded. Although no mass identified, a mass cannot be excluded by CT. GI consultation is recommended. Previous gastric bypass. 2.1 cm wedge-shaped hypodensity within the spleen which suggests an age indeterminate small infarct. Trace left pleural effusion. Mild left lung opacity which favors atelectasis. Moderate cardiomegaly. Extensive coronary artery calcification. --NPO after midnight --GI consulted for Input --Speech eval (2) KATHY (acute kidney injury): KATHY resolved Cr back to baseline Received IV fluids Monitor (3) UTI (urinary tract infection): Suspected UTI as per UA examination Urine Cx: --mixed probable skin kandy, contaminated sample On Rocephin (4) DM type 2 (diabetes mellitus, type 2): Hold oral diabetic agents SSI while hospitalized Monitor BGs (5) Atrial fibrillation: Heart rate is controlled with paced rhythm Coumadin held due to supratherapeutic INR Received vitamin K Monitor INR:2.4 Resume Coumadin as able (6) Hypothyroidism: Continue Levothyroxine DVT Px: INR therapeutic Resume coumadin as able Code Status Full Code Admission and Anticipated Discharge Date Admission Date: October 10, 2019 Subjective Patient is seen and examined at bedside Possible aspiration this morning Complains of nausea, vomiting right-sided chest discomfort Denies any abdominal pain Intermittently seemed to be confused Offers no other complaints Review of Systems Review of Systems: All systems reviewed & are unremarkable except as noted in HPI & below Physical Exam Physical Exam: Physical Exam: Vitals signs as noted above General Appearance:Moderately built and nourished, no apparent distress Head: normocephalic, Atraumatic Eyes: normal inspection, EOMI Neck: supple, Trachea midline Respiratory/Chest: Normal breath sounds, CTA, No accessory muscle use Cardiovascular: Irregularly Irregular, + murmur Chest: Pacer on left side, Tender to palpate Abdomen/GI:Soft, Non tender, Bowel sounds present Extremities/Musculoskelatal:normal inspection, no edema Neurologic/Psych:Alert, awake, grossly no focal neurological deficits Skin: normal color, warm Results & Data Results & Data ([facility]) Vital Signs (Past 12 Hours) Vital Signs Temp Pulse Pulse Resp BP Pulse Ox 10/12/19 16:56 74 10/12/19 16:00 71 10/12/19 14:55 36.5 C 85 22 102/68 97 10/12/19 10:42 185/92 H 10/12/19 07:34 36.8 C 63 16 170/83 H 97 Laboratory Results Short CBC 10/12/19 Range/Units 08:16 WBC 3.85 L (4.8-10.8) K/uL Hgb 12.3 (12.0-16.0) g/dL Hct 37.2 (37-47) % Plt Count 167 (130-400) K/uL BMP 10/12/19 08:16 Sodium 142 Potassium 3.7 Chloride 110 H Carbon Dioxide 27 BUN 11 Creatinine 0.88 Glucose 91 Calcium 8.3 L Cardiac Enzymes 10/12/19 Range/Units 11:29 Troponin I 0.031 (0-0.045) ng/ml (1) Headache Headache chronicity pattern: acute headache Headache type: unspecified Intractability: not intractable Qualified Code(s): R51 - Headache
[2019-10-12] MEDS: cefTRIAXone SODIUM 2,000 MG in DEXTROSE 5% 50 ML IV SCH (21:07)
[2019-10-13 03:56] LABS: Hemoglobin 11.6 g/dL (12.0-16.0); Mean Corpuscular Hemoglobin 29.4 pg (25-34); Mean Corpuscular Hgb Conc 33.1 g/dL (32-36); Mean Corpuscular Volume 88.6 fL (80-100); Mean Platelet Volume 10.8 fL (7.4-10.4); Platelet Count 176 K/uL (130-400); RDW Coefficient of Variation 12.8 % (11.5-14.5); RDW Standard Deviation 41.5 fL (36.4-46.3); Red Blood Count 3.95 M/uL (4.2-5.4); White Blood Count 4.43 K/uL (4.8-10.8)
[2019-10-13 04:04] LABS: INR 3.2 (0.9-1.1); Prothrombin Time 31.3 Seconds (9.0-12.0)
[2019-10-13 04:14] LABS: BUN Creatinine Ratio 13.4 (10-20); Calcium 8.2 mg/dl (8.5-10.1); Creatinine Clr Calc Pharmacy 55.9 ml/min; Est GFR (African American) 79.5; Est GFR (Non-African American) 68.6; Potassium 3.4 mmol/L (3.5-5.1)
[2019-10-13 04:27] LABS: Troponin I 0.669 ng/ml (0-0.045)
[2019-10-13] MEDS: LEVOTHYROXINE SODIUM 50 MCG TABLET PO SCH (05:47)
[2019-10-13] MEDS: SODIUM CHLORIDE 0.9% 1000ML 1,000 ML IV SCH (05:48)
[2019-10-13] MEDS: INSULIN ASPART 100 UNITS/ML 3 ML PEN SC SCH ×3 (07:46→18:41)
--- NOTE | 2019-10-13 07:52 | Electrocardiogram Report ---
Test Reason : Blood Pressure : / mmHG Vent. Rate : 070 BPM Atrial Rate : 062 BPM P-R Int : 000 ms QRS Dur : 144 ms QT Int : 472 ms P-R-T Axes : 000 -85 240 degrees QTc Int : 509 ms Atrial fibrillation with occasional ventricular-paced complexes Left axis deviation Right bundle branch block Abnormal ECG When compared with ECG of 16-MAR-2019 07:14, Electronic ventricular pacemaker has replaced Atrial fibrillation Confirmed by Stephen Almanza ([id number]) on 10/13/2019 7:52:24 AM Referred By: Confirmed By:Stephen Almanza
[2019-10-13] MEDS: FERROUS SULFATE 325 MG TAB PO SCH ×2 (08:07→15:38)
--- NOTE | 2019-10-13 08:30 | Gastrointestinal Consultation ---
Date of Consultation October 13, 2019 Assessment & Plan (1) Esophageal dilatation: CT with dilated esophagus, possible GE junction stricture. She most recently ate solid foods yesterday in the evening. Plan: NPO except chips and sips of liquids today. Hold anticoagulation Plan for EGD tomorrow. Present on Admission?: Yes Supervising Physician Co-Signing Physician Notes I have personally seen and examined the patient with TANGELA Mora. Her note reflects my exam and findings. I agree with her impression and plan. NPO and we will arrange EGD in am. Kevan Ellis M.D. History of Present Illness Reason for Consultation: Dilated esophagus Requesting Physician: Dr. Coleman Attending Physician: José Miguel Coleman MD History of Present Illness Ms. Maritza Palomo is a n 78 yr old female with a hx of DM-2, obesity S/P gastric bypass in 2005, CAD, CHF, A-fib cardiac pacer in place, Aortic valve stenosis, asthma, glaucoma, macular degeneration, myelodysplastic syndrome, depression, hypothyroidism, iron deficiency anemia and GERD. She presented to the ED yesterday for headache. She was also found to be in acute renal injury with hypokalemia and hypomagnesium, and with a supratherapeutic INR 9->3.2 today. GI is consulted because CT of the chest suggests a dilated debris filled esophagus and question of GE junction stricture. When asked, she reports feeling gaggy and food getting stuck at the bottom of her throat/top of the chest occurring while eating, about once a week, sometimes causing her to cough food up. She has minimal nausea and after coughing the food out feels fine immediately. No recent reflux symptoms (on Protonix 40mg daily). No hematemesis. No red or black BMs. She has been on po iron supplements for years but stopped them a few months ago. She does have chronic constipation but not recently worsened. She doesn't have a routine stool regime, instead takes, "whatever someone has around the house," using a laxative about once every 6-9 months. Recently, she has been passing a small hard BM daily though also sometimes has "runny," BMs. No unexplained weight loss. Most recent EGD and colonoscopy in 2012 were completed for iron deficiency anemia and diarrhea with findings of EGD: - Normal upper third of esophagus, middle third of esophagus and lower third of esophagus. - Z-line regular, 40 cm from the incisors. - Normal stomach. This was biopsied. - Gastric bypass with a normal-sized pouch and intact staple line. - Normal examined jejunum. Biopsied. Colonoscopy: - Stool in the entire examined colon. - There was significant looping of the colon. - Diverticulosis in the sigmoid colon. - Biopsies were taken with a cold forceps from the entire colon for evaluation of microscopic colitis. - The exam was otherwise normal to the cecum Path: A. Colon, random, biopsy: Mild active colitis; see microscopic description. B. Jejunum, biopsy: Small intestinal mucosa with focal mild increase in intraepithelial lymphocytes, nonspecific. C. Stomach, biopsy: Gastric oxyntic type of mucosa with no significant histopathologic changes. Immunohistochemical stain for H. Pylori organism is negative with appropriate control. Allergies Allergy/AdvReac Type Severity Reaction Status Date / Time adhesive Allergy Unknown ADHESIVE Verified 10/10/19 16:16 TAPE Home Medications Home Medications Medication Instructions Recorded Confirmed Type Lantus Solostar U-100 Insulin 16 unit SUBCUT QA 12/06/17 10/10/19 History metoprolol succinate 25 mg PO QAM 12/06/17 10/10/19 History pediatric multivitamin 1 tab PO QAM 12/06/17 10/10/19 History [Flintstones Multivitamin] albuterol sulfate 2 puff INHALATION Q4H PRN 11/08/18 10/10/19 History clopidogrel [Plavix] 75 mg PO QAM 11/08/18 10/10/19 History cyanocobalamin (vitamin B-12) 500 mcg PO QAM 11/08/18 10/10/19 History ferrous sulfate 325 mg PO BID 11/08/18 10/10/19 History citalopram 40 mg PO DAILY 03/13/19 10/10/19 History levothyroxine 50 mcg PO DAILY 03/13/19 10/10/19 History pantoprazole [Protonix] 40 mg PO DAILY 03/13/19 10/10/19 History prednisone 5 mg PO DAILY #7 tab 03/22/19 10/10/19 Rx Coumadin 7.5 mg PO DAILY 10/10/19 10/10/19 History digoxin 125 mcg PO USEASDIRECTD 10/10/19 10/10/19 History furosemide 20 mg PO DAILY 10/10/19 10/10/19 History Patient History Medical History Aortic root dilatation (Chronic) 4.4 cm on echo 01/2019 Asthma (Chronic) Bifascicular block CAD (coronary artery disease) (Chronic) "1995 - PTCA and stenting of RCA 07/2011 - atherectomy and stenting RCA 12/2011- AZALIA to the mid LAD 2016-Cobra stent to mid LAD 2017-AZALIA to ostial diagonal Depression (Chronic) DM type 2 (diabetes mellitus, type 2) (Chronic) Dyslipidemia (Chronic) Hypothyroidism (Chronic) HOMERO (iron deficiency anemia) (Chronic) Macular degeneration (Chronic) MDS (myelodysplastic syndrome) (Chronic) Mild aortic stenosis (Chronic) Pacemaker Sinus node dysfunction Surgical History History of angioplasty (Chronic) History of arthroscopy of knee (Chronic) History of arthroscopy of shoulder (Chronic) History of cholecystectomy (Chronic) History of gastric bypass (Chronic) History of incisional hernia repair (Chronic) History of partial hysterectomy (Chronic) History of tonsillectomy (Chronic) Family History Father Colorectal cancer Sister Lung cancer Diabetes Brother Diabetes Mother Diabetes Social History Smoking Status: Never smoker Hx Alcohol Use: No Hx Substance Use: No Preferred Language: Cameroonian Communication Ability: Effective Visual Impairment: No Limitations 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 Beliefs That Will Affect Care: None marital status: / Current Living Situation: Family Current Living Situation Comment: Pt lives with her son, [id number], daughter, son-in-law, & 2 children current occupational status: retired How many Children do You have: 3 Other Information That Helps Us Care for You: No Feels Safe at Home: Yes Review of Systems Review of Systems: ROS: Gen: Headaches - resolved today; Denies weakness, fevers, weight loss Eyes: No eye redness, or pain, no recent vision changes Resp: No SOB, no cough Cardio: No palpitations/irregular beats, no chest pain GI: No abdominal pain, no nausea/vomiting : Denies pain on urination Skin: No jaundice, itching or new rashes Physical Exam Constitutional: WD/WN, vitals as above Eyes: reactive pupils ENMT: external ear and nose normal, oropharynx normal Nose: + dry nasal mucous membranes Throat: uvula midline full dentures Neck: trachea midline, no thyromegaly Respiratory: normal respiratory effort, lungs clear to auscultation Cardiovascular: Rate/Rhythm: regular rate and regular rhythm 2-3/6 systolic murmur consistent with Gastrointestinal (Abdomen): normal bowel sounds, soft, nontender, no hepatosplenomegaly Musculoskeletal: no cyanosis or clubbing, extremities motor strength 5/5 right leg from knee to foot mildly edematous compared to left - pt tells me this is chronic from an injury Skin: no rashes, warm and dry Neurologic: PERRL, EOMI, accommodation nl, no face palsy, no dysarthria Psychiatric: A+Ox3, euthymic affect pleasant, conversational, able to provide a thorough hx but somewhat vague regarding exact frequency of symptoms Lymphatic: no cervical or axillary lymphadenopathy Results & Data ([facility]) Vital Signs (Past 12 Hours) Vital Signs Temp Pulse Resp BP BP Pulse Ox 10/13/19 07:30 36.8 C 68 18 120/73 98 10/13/19 03:09 36.8 C 58 L 18 120/71 98 10/12/19 23:31 37 C 65 18 114/[address] chest 10/12/19: 1. No pneumothorax. The possible left pneumothorax and chest radiograph was artifactual. 2. Markedly dilated esophagus filled with debris/ingested contents which may increase risk for aspiration. This is a change since CT of February 22, 2019. Apparent caliber change at the GE junction at the level of the diaphragmatic hiatus. Underlying stricture cannot be excluded. Although no mass identified, a mass cannot be excluded by CT. GI consultation is recommended. Previous gastric bypass. 3. 2.1 cm wedge-shaped hypodensity within the spleen which suggests an age indeterminate small infarct. 4. Trace left pleural effusion. Mild left lung opacity which favors atelectasis. 5. Moderate cardiomegaly. Extensive coronary artery calcification.
--- NOTE | 2019-10-13 09:04 | Electrocardiogram Report ---
Test Reason : Blood Pressure : / mmHG Vent. Rate : 062 BPM Atrial Rate : 040 BPM P-R Int : 000 ms QRS Dur : 172 ms QT Int : 552 ms P-R-T Axes : 000 -87 166 degrees QTc Int : 560 ms Ventricular-paced rhythm Abnormal ECG When compared with ECG of 12-OCT-2019 10:45, Vent. rate has decreased BY 4 BPM Confirmed by Cruz Nieves ([id number]) on 10/13/2019 9:04:19 AM Referred By: REFERRED SELF Confirmed By:Cruz Nieves
[2019-10-13] MEDS ORDERED: POTASSIUM CHLORIDE 20 MEQ/15 ML UDC PO ONE (09:19)
--- NOTE | 2019-10-13 09:22 | Electrocardiogram Report ---
Test Reason : Blood Pressure : / mmHG Vent. Rate : 066 BPM Atrial Rate : 062 BPM P-R Int : 000 ms QRS Dur : 132 ms QT Int : 436 ms P-R-T Axes : 000 -69 239 degrees QTc Int : 457 ms Atrial fibrillation with frequent ventricular-paced complexes Right bundle branch block Left anterior fascicular block Abnormal ECG When compared with ECG of 10-OCT-2019 15:39, Vent. rate has decreased BY 4 BPM Confirmed by Cruz Nieves ([id number]) on 10/13/2019 9:22:27 AM Referred By: REFERRED SELF Confirmed By:Cruz Nieves
[2019-10-13] MEDS ORDERED: NSS + 20MEQ KCL 20 MEQ/1,000 ML BAG IV SCH (10:00)
[2019-10-13] MEDS: POLYETHYLENE (MIRALAX) 17 GM PACK PO SCH (10:14)
[2019-10-13] MEDS: CYANOCOBALAMIN 500 MCG TABLET (VITAMIN B-12) PO SCH (10:14)
[2019-10-13] MEDS: FLINTSTONES COMPLETE CHEWABLE TAB PO SCH (10:14)
[2019-10-13] MEDS: CITALOPRAM 40 MG TAB PO SCH (10:14)
[2019-10-13] MEDS: PANTOprazole 40 MG TAB PO SCH (10:15)
[2019-10-13] MEDS: POTASSIUM CHLORIDE / WTR 10 MEQ/100 ML PLCT IV SCH ×2 (10:24→11:14)
[2019-10-13] MEDS: FUROSEMIDE 20 MG TAB PO SCH (10:26)
[2019-10-13] MEDS: METOPROLOL SUCC 25MG EXT REL TAB PO SCH (11:02)
[2019-10-13] MEDS: CLOPIDOGREL BISULFATE 75 MG TAB PO SCH (11:02)
--- NOTE | 2019-10-13 14:19 | Cardiology Progress Note ---
Date of Service October 13, 2019 Assessment & Plan (1) Acute UTI (urinary tract infection): (2) Dehydration: (3) Generalized weakness: (4) Supratherapeutic INR: (5) Atrial fibrillation: (6) Pacemaker: (7) CAD (coronary artery disease): (8) Nausea & vomiting: It appears the patient may have an esophageal stricture. She has had previous gastric bypass surgery and this may have been a problem in the past but not recent. GI consult is appreciated. She is stable from a cardiac standpoi nt. Her INR today is 3.2, if necessary she can be given a small dose of vitamin K to reverse the INR for procedures. Subjective Patient is much improved today. She is resting comfortably. Review of Systems Review of Systems: All systems reviewed & are unremarkable except as noted in HPI & below Nothing additional to add. Physical Exam Physical Exam: General: no acute distress and stated age Head: normocephalic, no masses, lesions, tenderness or abnormalities Eyes: conjunctiva are pink and non-injected, sclera clear Neck: supple, no adenopathy, no bruits, normal jugular venous pulse, no hepatojugular reflux Chest: normal shape and normal respiratory effort Lungs: clear to auscultation and percussion Cardiac Exam: - regular rate & rhythm, no murmurs gallops or rubs - normal S1, normal S2 Pulses: 2(+) throughout Abdomen: abdomen soft, non-tender, no abnormal masses and no hepatosplenomegaly Musculoskeletal: no gait disturbance, no joint inflammation, no deforming arthritis Extremities: no edema and no cyanosis Neuro: grossly normal exam Results & Data Vital Signs (Past 12 Hours) Vital Signs Temp Pulse Resp BP Pulse Ox 10/13/19 11:26 36.7 C 74 18 127/80 98 10/13/19 07:30 36.8 C 68 18 120/73 98 10/13/19 03:09 36.8 C 58 L 18 120/71 98 Laboratory Results Laboratory Results - last 24 hr 10/12/19 10/12/19 10/13/19 19:04 20:24 03:32 WBC 4.43 L RBC 3.95 L Hgb 11.6 L Hct 35.0 L MCV 88.6 MCH 29.4 MCHC 33.1 RDW Std Deviation 41.5 RDW Coeff of [place]aston 12.8 Plt Count 176 MPV 10.8 H PT INR Sodium Potassium Chloride Carbon Dioxide Anion Gap BUN Creatinine Est Cr Clr Drug Dosing Est GFR ( Amer) Est GFR (Non-Af Amer) BUN/Creatinine Ratio Glucose POC Glucose 188 H Calcium Troponin I 1.040 H* Digoxin 10/13/19 10/13/19 10/13/19 03:32 03:32 03:32 WBC RBC Hgb Hct MCV MCH MCHC RDW Std Deviation RDW Coeff of [place] Plt Count MPV PT 31.3 H INR 3.2 H Sodium 144 Potassium 3.4 L Chloride 113 H Carbon Dioxide 26 Anion Gap 5.0 BUN 11 Creatinine 0.81 Est Cr Clr Drug Dosing 55.9 Est GFR ( Amer) 79.5 Est GFR (Non-Af Amer) 68.6 BUN/Creatinine Ratio 13.4 Glucose 82 POC Glucose Calcium 8.2 L Troponin I 0.669 H* Digoxin 0.5 L 10/13/19 10/13/19 10/13/19 05:10 07:28 11:28 WBC RBC Hgb Hct MCV MCH MCHC RDW Std Deviation RDW Coeff of [place] Plt Count MPV PT INR Sodium Potassium Chloride Carbon Dioxide Anion Gap BUN Creatinine Est Cr Clr Drug Dosing Est GFR ( Amer) Est GFR (Non-Af Amer) BUN/Creatinine Ratio Glucose POC Glucose 83 90 71 Calcium Troponin I Digoxin Medications Administered Current Inpatient Medications Acetaminophen (Tylenol) 650 mg PO Q4H PRN PRN Reason: Pain or Fever Stop: 11/10/19 01:07 Albuterol (Ventolin Hfa) 2 puffs INH Q4H PRN PRN Reason: Shortness Of Breath Or Wheezing Stop: 11/10/19 01:07 Citalopram Hydrobromide (Celexa) 40 mg PO DAILY [facility] Stop: 11/10/19 08:59 Last Admin: 10/13/19 10:14 Dose: Not Given Documented by: Clopidogrel Bisulfate (Plavix) 75 mg PO QAM [facility] Stop: 11/10/19 08:59 Last Admin: 10/13/19 11:02 Dose: Not Given Documented by: Cyanocobalamin (Vitamin B-12) 500 mcg PO QAM [facility] Stop: 11/10/19 08:59 Last Admin: 10/13/19 10:14 Dose: Not Given Documented by: Dextrose (Dextrose 50%) 25 - 50 ml IV UD PRN; Protocol PRN Reason: Hypoglycemia Protocol Stop: 11/10/19 01:44 Digoxin (Lanoxin) 0.125 mg PO [id number] [facility] Stop: 11/10/19 15:59 Last Admin: 10/12/19 16:56 Dose: 0.125 mg Documented by: Ferrous Sulfate (Feosol) 325 mg PO BIDM [facility] Stop: 11/10/19 07:59 Last Admin: 10/13/19 08:07 Dose: Not Given Documented by: Furosemide (Lasix) 20 mg PO DAILY [facility] Stop: 11/10/19 08:59 Last Admin: 10/13/19 10:26 Dose: Not Given Documented by: Glucagon (Glucagen) 1 mg IM UD PRN; Protocol PRN Reason: Hypoglycemia Protocol Stop: 11/10/19 01:44 Glucose (Glucose 40%) 15 - 30 gm PO UD PRN; Protocol PRN Reason: Hypoglycemia Protocol Stop: 11/10/19 01:44 Glucose (Dex4 Glucose) 4 - 8 tabs PO UD PRN; Protocol PRN Reason: Hypoglycemia Protocol Stop: 11/10/19 01:44 Ceftriaxone Sodium 2,000 mg/ (Dextrose) 70 mls @ 100 mls/hr IV Q24H [facility]; Protocol Stop: 10/16/19 20:59 Last Infusion: 10/12/19 21:55 Dose: Infused Documented by: Potassium Chloride/Sodium Chloride (Normal Saline W/20 Meq Kcl) 20 meq in 1,000 mls @ 75 mls/hr IV .[id number] [facility] Stop: 10/13/19 23:19 Last Admin: 10/13/19 10:24 Dose: 75 mls/hr Documented by: Insulin Aspart (Novolog Flexpen) 0 units SC Q6 [facility] Stop: 11/12/19 17:59 Insulin Glargine (Lantus Solostar Pen) 16 units SQ QAM [facility] Stop: 11/10/19 08:59 Last Admin: 10/12/19 09:12 Dose: 16 units Documented by: Levothyroxine Sodium (Synthroid) 50 mcg PO DAILYBB [facility] Stop: 11/10/19 06:29 Last Admin: 10/13/19 05:47 Dose: Not Given Documented by: Metoprolol Succinate (Toprol Xl) 25 mg PO QAM [facility] Stop: 11/10/19 08:59 Last Admin: 10/13/19 11:02 Dose: Not Given Documented by: Miscellaneous (Carbohydrates For Hypoglycemia) 15 - 30 gm PO UD PRN PRN Reason: Hypoglycemia Treatment Stop: 11/10/19 01:44 Last Admin: 10/11/19 20:15 Dose: 15 gm Documented by: Multivitamins/Folic Acid/Vitamin C (Flintstones Complete Chew Tab) 1 tab PO QAM [facility] Stop: 11/10/19 08:59 Last Admin: 10/13/19 10:14 Dose: Not Given Documented by: Nitroglycerin (Nitrostat) 0.4 mg SL UD PRN PRN Reason: Chest Pain Stop: 11/10/19 01:07 Last Admin: 10/12/19 13:12 Dose: 0.4 mg Documented by: Ondansetron HCl (Zofran) 4 mg IV Q6H PRN PRN Reason: Nausea Stop: 11/10/19 01:07 Pantoprazole Sodium (Protonix) 40 mg PO DAILY [facility] Stop: 11/10/19 08:59 Last Admin: 10/13/19 10:15 Dose: Not Given Documented by: Polyethylene Glycol (Miralax Powder Packet) 17 gm PO DAILY [facility] Stop: 11/11/19 13:59 Last Admin: 10/13/19 10:14 Dose: Not Given Documented by: (1) CAD (coronary artery disease) Coronary Disease-Associated Artery/Lesion type: [place] artery [place] vs. transplanted heart: [place] heart Associated angina: without angina Qualified Code(s): I25.10 - Atherosclerotic heart disease of [place] coronary artery without angina pectoris
[2019-10-13] MEDS: CARBOHYDRATES FOR HYPOGLYCEMIA PO PRN (15:55)
--- NOTE | 2019-10-13 17:20 | Hospitalist Progress Note ---
Date of Service October 13, 2019 Assessment & Plan (1) Headache: CT Head: No acute intracranial findings Head CTA:Unremarkable CT angiography of the brain for age Neck CTA:No evidence of hemodynamically significant internal carotid carotid or vertebral artery stenosis. No evidence of dissection. Moderate atheromatous changes at the level of the left carotid bulb with approximately 65% stenosis of the distal left common carotid Headache resolved Esophageal Dilatation ? Aspiration issues --CT ABD:No pneumothorax. The possible left pneumothorax and chest radiograph was artifactual. Markedly dilated esophagus filled with debris/ingested contents which may increase risk for aspiration. This is a change since CT of February 22, 2019. Apparent caliber change at the GE junction at the level of the diaphragmatic hiatus. Underlying stricture cannot be excluded. Although no mass identified, a mass cannot be excluded by CT. GI consultation is recommended. Previous gastric bypass. 2.1 cm wedge-shaped hypodensity within the spleen which suggests an age indeterminate small infarct. Trace left pleural effusion. Mild left lung opacity which favors atelectasis. Moderate cardiomegaly. Extensive coronary artery calcification. --NPO after midnight --Appreciate GI consulted Input --Speech eval --Planned for EGD tomorrow Chest Pain DD: Esophageal Stricture Chest pain resolved Minimal Troponin elevation ECHO: Moderate apical wall hypokinesis, EF 55 to 60%, severe tricuspid regurgit ation, moderate pulmonary hypertension. Continue Plavix, Metoprolol Cardiology on board Intermittent Confusion ? Baseline DD: delirium, UTI CT head as above Reorient frequently Monitor Digoxin level:0.5 Normal TSH Confusion resolved (2) KATHY (acute kidney injury): KATHY resolved Cr back to baseline Received IV fluids Monitor (3) UTI (urinary tract infection): Suspected UTI as per UA examination Urine Cx: --mixed probable skin kandy, contaminated sample On Rocephin--to complete 3 day course (4) DM type 2 (diabetes mellitus, type 2): Hold oral diabetic agents Hypoglycemia intermittently due to poor oral intake Hold lantus Liberalized ISS Monitor BGs Continue Hypoglycemia protocol (5) Atrial fibrillation: Heart rate is controlled with paced rhythm Coumadin held due to supratherapeutic INR Received vitamin K Monitor INR:3.2 Resume Coumadin as able (6) Hypothyroidism: Continue Levothyroxine DVT Px: INR therapeutic Resume coumadin as able Code Status Full Code Admission and Anticipated Discharge Date Admission Date: October 10, 2019 Subjective Patient is seen and examined at bedside Feels a lot better today Plan for EGD tomorrow for possible esophageal dilatation Chest pain, shortness of breath, nausea, vomiting resolved Denies abdominal pain Offers no other complaints Hypoglycemia noted Review of Systems Review of Systems: All systems reviewed & are unremarkable except as noted in HPI & below Physical Exam Physical Exam: Physical Exam: Vitals signs as noted above General Appearance:Moderately built and nourished, no apparent distress Head: normocephalic, Atraumatic Eyes: normal inspection, EOMI Neck: supple, Trachea midline Respiratory/Chest: Normal breath sounds, CTA Cardiovascular: Irregularly Irregular, + murmur Chest: Pacer on left side, Tender to palpate Abdomen/GI:Soft, Non tender, Bowel sounds present Extremities/Musculoskelatal:normal inspection, Chronic RLE edema from prior trauma Neurologic/Psych:Alert, awake, grossly no focal neurological deficits Skin: normal color, warm Results & Data Results & Data ([facility]) Vital Signs (Past 12 Hours) Vital Signs Temp Pulse Pulse Resp BP Pulse Ox 10/13/19 16:00 36.9 C 74 18 147/76 H 97 10/13/19 11:26 36.7 C 74 18 127/80 98 10/13/19 07:30 36.8 C 68 18 120/73 98 Laboratory Results Short CBC 10/13/19 Range/Units 03:32 WBC 4.43 L (4.8-10.8) K/uL Hgb 11.6 L (12.0-16.0) g/dL Hct 35.0 L (37-47) % Plt Count 176 (130-400) K/uL BMP 10/13/19 03:32 Sodium 144 Potassium 3.4 L Chloride 113 H Carbon Dioxide 26 BUN 11 Creatinine 0.81 Glucose 82 Calcium 8.2 L Cardiac Enzymes 10/12/19 10/13/19 Range/Units 19:04 03:32 Troponin I 1.040 H* 0.669 H* (0-0.045) ng/ml (1) Headache Headache chronicity pattern: acute headache Headache type: unspecified Intractability: not intractable Qualified Code(s): R51 - Headache
[2019-10-13] MEDS: D5W AND 1/2NSS + 20MEQ KCL 20 MEQ/1,000 ML BAG IV SCH (18:38)
[2019-10-13] MEDS: cefTRIAXone SODIUM 2,000 MG in DEXTROSE 5% 50 ML IV SCH (21:19)
[2019-10-14] MEDS: INSULIN ASPART 100 UNITS/ML 3 ML PEN SC SCH ×5 (00:45→23:43)
[2019-10-14] MEDS: LEVOTHYROXINE SODIUM 50 MCG TABLET PO SCH (06:09)
[2019-10-14 07:20] LABS: INR 2.8 (0.9-1.1); Prothrombin Time 28.4 Seconds (9.0-12.0)
[2019-10-14 07:31] LABS: BUN Creatinine Ratio 11.4 (10-20); Calcium 8.8 mg/dl (8.5-10.1); Creatinine Clr Calc Pharmacy 47.4 ml/min; Est GFR (African American) 66.4; Est GFR (Non-African American) 57.3; Magnesium 1.8 mg/dl (1.8-2.4); Potassium 4.3 mmol/L (3.5-5.1)
[2019-10-14] MEDS: METOPROLOL SUCC 25MG EXT REL TAB PO SCH (07:50)
[2019-10-14] MEDS: CLOPIDOGREL BISULFATE 75 MG TAB PO SCH (07:51)
--- NOTE | 2019-10-14 09:17 | Anesthesiology Consultation ---
Date of Service October 14, 2019 hx CVAs no deficits per patient Assessment & Plan (1) Encounter for pre-operative examination: History Surgery Operation Date: 10/14/19 13:05 Proposed Procedures p Esophagogastroduodenoscopy Dr Caleb Ellis Height/Weight Height: 5 ft 3 in Weight: 78.5 kg Allergies Allergy/AdvReac Type Severity Reaction Status Date / Time adhesive Allergy Unknown ADHESIVE Verified 10/10/19 16:16 TAPE Medications Home Medications Medication Instructions Recorded Confirmed Last Taken Lantus Solostar U-100 Insulin 16 unit SUBCUT QAM 12/06/17 10/10/19 03/13/19 metoprolol succinate 25 mg PO QAM 12/06/17 10/10/19 03/13/19 pediatric multivitamin 1 tab PO QAM 12/06/17 10/10/19 03/13/19 [Flintstones Multivitamin] albuterol sulfate 2 puff INHALATION Q4H PRN 11/08/18 10/10/19 11/08/18 08:30 clopidogrel [Plavix] 75 mg PO QAM 11/08/18 10/10/19 03/13/19 cyanocobalamin (vitamin B-12) 500 mcg PO QAM 11/08/18 10/10/19 03/13/19 ferrous sulfate 325 mg PO BID 11/08/18 10/10/19 03/13/19 citalopram 40 mg PO DAILY 03/13/19 10/10/19 Unknown levothyroxine 50 mcg PO DAILY 03/13/19 10/10/19 Unknown pantoprazole [Protonix] 40 mg PO DAILY 03/13/19 10/10/19 Unknown prednisone 5 mg PO DAILY #7 tab 03/22/19 10/10/19 Unknown Coumadin 7.5 mg PO DAILY 10/10/19 10/10/19 Unknown digoxin 125 mcg PO USEASDIRECTD 10/10/19 10/10/19 Unknown furosemide 20 mg PO DAILY 10/10/19 10/10/19 Unknown Active Medications Generic Name Dose Route Start Last Admin Trade Name Freq PRN Reason Stop Dose Admin Citalopram Hydrobromide 40 mg 10/11/19 09:00 10/13/19 10:14 Celexa PO 11/10/19 08:59 Not Given DAILY SYED Clopidogrel Bisulfate 75 mg 10/11/19 09:00 10/14/19 07:51 Plavix PO 11/10/19 08:59 75 mg QAM SYED Administration Cyanocobalamin 500 mcg 10/11/19 09:00 10/13/19 10:14 Vitamin B-12 PO 11/10/19 08:59 Not Given QAM SYED Digoxin 0.125 mg 10/11/19 16:00 10/12/19 16:56 Lanoxin PO 11/10/19 15:59 0.125 mg [id number] SYED Administration Ferrous Sulfate 325 mg 10/11/19 08:00 10/13/19 15:38 Feosol PO 11/10/19 07:59 Not Given BIDM SYED Furosemide 20 mg 10/11/19 09:00 10/13/19 10:26 Lasix PO 11/10/19 08:59 Not Given DAILY SYED Ceftriaxone Sodium 2,000 mg/ 70 mls @ 100 mls/hr 10/11/19 21:00 10/13/19 22:11 Dextrose IV 10/16/19 20:59 Infused Q24H SYED Infusion Protocol Potassium Chloride/Dextrose/Sod Cl 20 meq in 1,000 mls @ 50 mls/hr 10/13/19 17:45 10/13/19 18:38 D5w And 1/2nss + 20meq Kcl IV 10/15/19 09:44 50 mls/hr .Q20H SYED Administration Insulin Aspart 0 units 10/13/19 18:00 10/14/19 06:15 Novolog Flexpen SC 11/12/19 17:59 Not Given Q6 SYED Insulin Glargine 16 units 10/11/19 09:00 10/12/19 09:12 Lantus Solostar Pen SQ 11/10/19 08:59 16 units QAM SYED Administration Levothyroxine Sodium 50 mcg 10/11/19 06:30 10/14/19 06:09 Synthroid PO 11/10/19 06:29 50 mcg DAILYBB SYED Administration Metoprolol Succinate 25 mg 10/11/19 09:00 10/14/19 07:50 Toprol Xl PO 11/10/19 08:59 25 mg QAM YSED Administration Miscellaneous 15 - 30 gm 10/11/19 01:45 10/13/19 15:55 Carbohydrates For Hypoglycemia PO 11/10/19 01:44 15 gm UD PRN Administration Hypoglycemia Treatment Multivitamins/Folic Acid/Vitamin C 1 tab 10/11/19 09:00 10/13/19 10:14 Flintstones Complete Chew Tab PO 11/10/19 08:59 Not Given QAM SYED Nitroglycerin 0.4 mg 10/11/19 01:08 10/12/19 13:12 Nitrostat SL 11/10/19 01:07 0.4 mg UD PRN Administration Chest Pain Pantoprazole Sodium 40 mg 10/11/19 09:00 10/13/19 10:15 Protonix PO 11/10/19 08:59 Not Given DAILY SYED Polyethylene Glycol 17 gm 10/12/19 14:00 10/13/19 10:14 Miralax Powder Packet PO 11/11/19 13:59 Not Given DAILY SYED Past Family History Family History Father Colorectal cancer Sister Lung cancer Diabetes Brother Diabetes Mother Diabetes Social History Smoking Status: Never smoker Hx Alcohol Use: No Alcohol type: beer alcohol intake frequency: holidays/special occasions only Hx Substance Use: No Physical Exam Vital Signs Last Vital Signs Temp 36.6 C 10/14/19 11:32 Pulse 69 10/14/19 11:32 Resp 18 10/14/19 11:32 BP 126/81 10/14/19 11:32 Pulse Ox 99 10/14/19 11:32 Testing Laboratory Results 10/13/19 03:32 10/14/19 06:32 PT 28.4 Seconds (9.0-12.0) H 10/14/19 06:32 INR 2.8 (0.9-1.1) H 10/14/19 06:32 APTT 62.9 Seconds (21.0-31.0) H* 10/10/19 17:29 Hemoglobin A1c 7.8 % (4.5-5.6) H 10/11/19 05:23 Urine Color Dark Yellow 10/10/19 19:00 Urine Appearance Cloudy (Clear) A 10/10/19 19:00 Urine pH 5.0 (4.5-7.5) 10/10/19 19:00 Ur Specific [place] > 1.045 (1.000-1.030) H 10/10/19 19:00 Urine Protein Trace (Negative) H 10/10/19 19:00 Urine Glucose (UA) Negative (Negative) 10/10/19 19:00 Urine Ketones 1+ (Negative) H 10/10/19 19:00 Urine Nitrite Negative (Negative) 10/10/19 19:00 Ur Leukocyte Esterase 2+ (Negative) H 10/10/19 19:00 Urine WBC (Auto) >30 /hpf (0-5) H 10/10/19 19:00 Urine RBC (Auto) 0-4 /hpf (0-4) 10/10/19 19:00 U Hyaline Cast (Auto) 1-5 /lpf (0-5) 10/10/19 19:00 U Epithel Cells (Auto) >30 /lpf (0-5) H 10/10/19 19:00 Urine Bacteria (Auto) 1+ (Negative) H 10/10/19 19:00 10/10/19 19:00 Urine Culture - Final Urine,Clean Catch More than three types of organisms present, all high counts mixed probable skin kandy - No further identifications or sensitivities to follow. 10/14/19 10/14/19 10/14/19 11:47 06:07 04:07 POC Glucose 136 H 108 H 105 H 10/14/19 00:37 POC Glucose 97 Electrocardiogram Date: 10/13/19 Ventricular-paced rhythm Abnormal ECG When compared with ECG of 12-OCT-2019 10:45, Vent. rate has decreased BY 4 BPM Confirmed by Cruz Nieves ([id number]) on 10/13/2019 9:04:19 AM Chest X-Ray Date: 10/12/19 IMPRESSION: 1. Probable skinfold of the lateral left hemithorax. A small pneumothorax is considered less likely. Confirmation with follow-up inspiration and expiration views of the chest recommended. 2. Moderate fecal retention with nonobstructive bowel gas pattern. Echocardiogram Date: 10/13/19 EF: 55-60% mild concentric LVH RA and LA severely dilated mild Severe TR moderate pulmonary hypertension.
[2019-10-14] MEDS ORDERED: LIDOCAINE HCL 2% 2 ML VIAL/AMP(20MG/ML) INFIL ONE (11:49)
[2019-10-14] MEDS ORDERED: PROPOFOL IV EMULSION 10 MG/ML 20 ML VIAL IV ONE (11:49)
--- NOTE | 2019-10-14 12:00 | History & Physical Report ---
Date of Service October 14, 2019 Assessment & Plan (1) Abnormal finding on GI tract imaging: stable for EGD History of Present Illness Chief Complaint: abnormal imaging of esophagus Primary Care Provider: Liza Dobbs DO pt with abnormal imaging of esophagus for EGD Allergies Allergy/AdvReac Type Severity Reaction Status Date / Time adhesive Allergy Unknown ADHESIVE Verified 10/10/19 16:16 TAPE Home Medications Home Medications Medication Instructions Recorded Confirmed Type Lantus Solostar U-100 Insulin 16 unit SUBCUT QAM 12/06/17 10/10/19 History metoprolol succinate 25 mg PO QAM 12/06/17 10/10/19 History pediatric multivitamin 1 tab PO QAM 12/06/17 10/10/19 History [Flintstones Multivitamin] albuterol sulfate 2 puff INHALATION Q4H PRN 11/08/18 10/10/19 History clopidogrel [Plavix] 75 mg PO QAM 11/08/18 10/10/19 History cyanocobalamin (vitamin B-12) 500 mcg PO QAM 11/08/18 10/10/19 History ferrous sulfate 325 mg PO BID 11/08/18 10/10/19 History citalopram 40 mg PO DAILY 03/13/19 10/10/19 History levothyroxine 50 mcg PO DAILY 03/13/19 10/10/19 History pantoprazole [Protonix] 40 mg PO DAILY 03/13/19 10/10/19 History prednisone 5 mg PO DAILY #7 tab 03/22/19 10/10/19 Rx Coumadin 7.5 mg PO DAILY 10/10/19 10/10/19 History digoxin 125 mcg PO USEASDIRECTD 10/10/19 10/10/19 History furosemide 20 mg PO DAILY 10/10/19 10/10/19 History Past Med/Surg History Family History Father Colorectal cancer Sister Lung cancer Diabetes Brother Diabetes Mother Diabetes Social History Smoking Status: Never smoker Hx Alcohol Use: No Hx Substance Use: No Preferred Language: Mongolian Communication Ability: Effective Visual Impairment: No Limitations Hearing Ability: Normal Compensation Analyst Required: No Beliefs That Will Affect Care: None marital status: / Current Living Situation: Family Current Living Situation Comment: Pt lives with her son, [id number], daughter, son-in-law, & 2 children current occupational status: retired How many Children do You have: 3 Other Information That Helps Us Care for You: No Feels Safe at Home: Yes Physical Exam Constitutional: WD/WN, vitals as above Respiratory: normal respiratory effort, lungs clear to auscultation Cardiovascular: RRR, no murmur, no edema Gastrointestinal (Abdomen): normal bowel sounds, soft, nontender, no hepatosplenomegaly Results & Data Vital Signs (Past 12 Hours) Vital Signs Temp Pulse Resp BP Pulse Ox 10/14/19 11:32 36.6 C 69 18 126/81 99 10/14/19 07:30 36.8 C 70 18 125/77 99 10/14/19 03:38 36.6 C 97 H 18 109/73 97 Code Status & VTE Plan VTE Prophylaxis Plan VTE Prophylaxis will be ordered: Yes
--- NOTE | 2019-10-14 12:33 | GI REPORT ---
Patient Name: Maritza Palomo Procedure Date: 10/14/2019 12:16 PM Date of : 1940 Admit Type: Inpatient Age: 78 Gender: Female Attending MD: Kevan Ellis MD Procedure: Upper GI endoscopy Providers: Kevan Ellis MD Referring MD: José Miguel Coleman Md Indications: Abnormal CT of the GI tract Medicines: See the Anesthesia note for documentation of the administered medications Complications: No immediate complications. Estimated Blood Loss: Estimated blood loss: none. Procedure: Pre-Anesthesia Assessment: - Prior to the procedure, a History and Physical was performed, and patient medications, allergies and sensitivities were reviewed. The patient's tolerance of previous anesthesia was reviewed. - The risks and benefits of the procedure and the sedation options and risks were discussed with the patient. All questions were answered and informed consent was obtained. - Patient identification and proposed procedure were verified prior to the procedure by the physician and the nurse. The procedure was verified in the pre-procedure area. - Pre-procedure physical examination revealed no contraindications to sedation. - After reviewing the risks and benefits, the patient was deemed in satisfactory condition to undergo the procedure. After obtaining informed consent, the endoscope was passed under direct vision. Throughout the procedure, the patient's blood pressure, pulse, and oxygen saturations were monitored continuously. The Endoscope was introduced through the mouth, and advanced to the afferent and efferent jejunal loops. The upper GI endoscopy was accomplished without difficulty. The patient tolerated the procedure well. Findings: The esophagus was normal. Evidence of a gastric bypass was found. A gastric pouch with a normal size was found. The staple line appeared intact. The gastrojejunal anastomosis was characterized by healthy appearing mucosa. The jejunojejunal anastomosis was characterized by healthy appearing mucosa. The examined jejunum was normal. Impression: - Normal esophagus. - No stricture seen. - Gastric bypass with a normal-sized pouch and intact staple line. Gastrojejunal anastomosis characterized by healthy appearing mucosa. - Normal examined jejunum. - No specimens collected. Recommendation: - [facility]. Kevan Ellis M.D. Kevan Ellis MD 10/14/2019 12:33:22 PM This report has been signed electronically. Note Initiated On: 10/14/2019 12:16 PM Number of Addenda: 0 I attest to the content of the Intraoperative Record and orders documented therein, exceptions below {[id number]}
--- NOTE | 2019-10-14 13:15 | Anesthesiology Progress Note ---
Date of Service October 14, 2019 Anesthesia Post Procedure Vital Signs Vital Signs: Temp Pulse Pulse Resp BP BP Pulse Ox 10/14/19 13:01 65 18 134/83 95 10/14/19 12:46 64 18 124/64 100 10/14/19 12:31 66 19 120/60 99 10/14/19 12:09 36.6 C 72 18 150/89 H 98 10/14/19 11:32 36.6 C 69 18 126/81 99 10/14/19 07:30 36.8 C 70 18 125/77 99 10/14/19 03:38 36.6 C 97 H 18 109/73 97 10/13/19 23:31 36.6 C 70 18 127/72 97 10/13/19 19:34 37 C 70 18 118/74 98 10/13/19 16:00 36.9 C 74 18 147/76 H 97 Pain Intensity Head: Pain Intensity: 2 Transfer of Care Handoff Completed per policy Notes Mental Status: alert / awake / arousable and participated in evaluation Patient Amnestic to Procedure: Yes Nausea / Vomiting: adequately controlled Pain: adequately controlled Airway Patency, RR, SpO2: stable & adequate BP & HR: stable & adequate Hydration State: stable & adequate Anesthetic Complications: no major complications apparent and Pt Satisfied with anesthetic care
[2019-10-14] MEDS: FUROSEMIDE 20 MG TAB PO SCH (14:38)
[2019-10-14] MEDS: CITALOPRAM 40 MG TAB PO SCH (14:38)
[2019-10-14] MEDS: FLINTSTONES COMPLETE CHEWABLE TAB PO SCH (14:40)
[2019-10-14] MEDS: FERROUS SULFATE 325 MG TAB PO SCH ×2 (14:40→17:01)
[2019-10-14] MEDS: D5W AND 1/2NSS + 20MEQ KCL 20 MEQ/1,000 ML BAG IV SCH (14:41)
[2019-10-14] MEDS: PANTOprazole 40 MG TAB PO SCH (14:41)
[2019-10-14] MEDS: CYANOCOBALAMIN 500 MCG TABLET (VITAMIN B-12) PO SCH (14:41)
[2019-10-14] MEDS: POLYETHYLENE (MIRALAX) 17 GM PACK PO SCH (14:43)
[2019-10-14] MEDS: DIGOXIN 0.125 MG TAB PO SCH (17:01)
--- NOTE | 2019-10-14 18:42 | Hospitalist Progress Note ---
Date of Service October 14, 2019 Assessment & Plan (1) Headache: CT Head: No acute intracranial findings Head CTA:Unremarkable CT angiography of the brain for age Neck CTA:No evidence of hemodynamically significant internal carotid carotid or vertebral artery stenosis. No evidence of dissection. Moderate atheromatous changes at the level of the left carotid bulb with approximately 65% stenosis of the distal left common carotid Headache resolved Esophageal Dilatation ? Aspiration issues --CT ABD:No pneumothorax. The possible left pneumothorax and chest radiograph was artifactual. Markedly dilated esophagus filled with debris/ingested contents which may increase risk for aspiration. This is a change since CT of February 22, 2019. Apparent caliber change at the GE junction at the level of the diaphragmatic hiatus. Underlying stricture cannot be excluded. Although no mass identified, a mass cannot be excluded by CT. GI consultation is recommended. Previous gastric bypass. 2.1 cm wedge-shaped hypodensity within the spleen which suggests an age indeterminate small infarct. Trace left pleural effusion. Mild left lung opacity which favors atelectasis. Moderate cardiomegaly. Extensive coronary artery calcification. --S/P EGD: Normal esophagus. No stricture seen. Gastric bypass with a normal- sized pouch and intact staple line. Gastrojejunal anastomosis characterized by healthy appearing mucosa. Normal examined jejunum. No specimens collected. --Appreciate GI consulted Input --Speech eval --Advance diet as tolerated Chest Pain Resolved Minimal Troponin elevation ECHO: Moderate apical wall hypokinesis, EF 55 to 60%, severe tricuspid regurgitation, moderate pulmonary hypertension. Continue Plavix, Metoprolol ECHO changes likely due to Pacer as per Cards Appreciate Cardiology Input Intermittent Confusion ? Baseline DD: delirium, UTI CT head as above Reorient frequently Monitor Digoxin level:0.5 Normal TSH Mental status back to baseline (2) KATHY (acute kidney injury): KATHY resolved Cr back to baseline Received IV fluids Monitor (3) UTI (urinary tract infection): Suspected UTI as per UA examination Urine Cx: --mixed probable skin kandy, contaminated sample On Rocephin--to complete 3 day course (4) DM type 2 (diabetes mellitus, type 2): Hold oral diabetic agents Hypoglycemia intermittently due to poor oral intake Hold lantus Liberalized ISS Monitor BGs Continue Hypoglycemia protocol PRN (5) Atrial fibrillation: Heart rate is controlled with paced rhythm Coumadin held due to supratherapeutic INR Received vitamin K Monitor INR:2.8 Resume Coumadin as able (6) Hypothyroidism: Continue Levothyroxine DVT Px: INR therapeutic Resume coumadin as able Code Status Full Code Disposition Plan to discharge home when medically stable Admission and Anticipated Discharge Date Admission Date: October 10, 2019 Subjective Patient is seen and examined at bedside Doing well today Had EGD today Tolerated diet No new complaints Denies Chest pain, shortness of breath, dizziness, abd pain Review of Systems Review of Systems: All systems reviewed & are unremarkable except as noted in HPI & below Physical Exam Physical Exam: Physical Exam: Vitals signs as noted above General Appearance:Moderately built and nourished, no apparent distress Head: normocephalic, Atraumatic Eyes: normal inspection, EOMI Neck: supple, Trachea midline Respiratory/Chest: Normal breath sounds, CTA Cardiovascular: Irregularly Irregular, + murmur Abdomen/GI:Soft, Non tender, Bowel sounds present Extremities/Musculoskelatal:normal inspection, Chronic RLE edema from prior trauma Neurologic/Psych:Alert, awake, oriented, grossly no focal neurological deficits Skin: normal color, warm Results & Data Results & Data ([facility]) Vital Signs (Past 12 Hours) Vital Signs Temp Pulse Pulse Pulse Resp BP BP 10/14/19 17:01 72 10/14/19 15:52 36.7 C 67 18 113/72 10/14/19 13:01 65 18 134/83 10/14/19 12:46 64 18 124/64 10/14/19 12:31 66 19 120/60 10/14/19 12:09 36.6 C 72 18 150/89 H 10/14/19 11:32 36.6 C 69 18 126/81 10/14/19 07:30 36.8 C 70 18 125/77 Pulse Ox 10/14/19 17:01 10/14/19 15:52 98 10/14/19 13:01 95 10/14/19 12:46 100 10/14/19 12:31 99 10/14/19 12:09 98 10/14/19 11:32 99 10/14/19 07:30 99 Laboratory Results BMP 10/14/19 06:32 Sodium 143 Potassium 4.3 D Chloride 112 H Carbon Dioxide 27 BUN 11 Creatinine 0.94 Glucose 111 H Calcium 8.8 (1) Headache Headache chronicity pattern: acute headache Headache type: unspecified Intractability: not intractable Qualified Code(s): R51 - Headache
[2019-10-14] MEDS ORDERED: Nursing to Pharmacy Communication SCH (20:30)
[2019-10-14] MEDS: cefTRIAXone SODIUM 2,000 MG in DEXTROSE 5% 50 ML IV SCH (23:30)
[2019-10-15 06:34] LABS: INR 2.9 (0.9-1.1); Prothrombin Time 28.7 Seconds (9.0-12.0)
[2019-10-15] MEDS: LEVOTHYROXINE SODIUM 50 MCG TABLET PO SCH (06:42)
[2019-10-15 06:54] LABS: BUN Creatinine Ratio 12.8 (10-20); Calcium 8.3 mg/dl (8.5-10.1); Creatinine Clr Calc Pharmacy 51.9 ml/min; Est GFR (African American) 73.9; Est GFR (Non-African American) 63.8; Potassium 4.4 mmol/L (3.5-5.1)
[2019-10-15] MEDS: METOPROLOL SUCC 25MG EXT REL TAB PO SCH (09:22)
[2019-10-15] MEDS: POLYETHYLENE (MIRALAX) 17 GM PACK PO SCH (09:22)
[2019-10-15] MEDS: FLINTSTONES COMPLETE CHEWABLE TAB PO SCH (09:22)
[2019-10-15] MEDS: CLOPIDOGREL BISULFATE 75 MG TAB PO SCH (09:22)
[2019-10-15] MEDS: FERROUS SULFATE 325 MG TAB PO SCH (09:22)
[2019-10-15] MEDS: PANTOprazole 40 MG TAB PO SCH (09:22)
[2019-10-15] MEDS: INSULIN ASPART 100 UNITS/ML 3 ML PEN SC SCH ×2 (09:22→12:28)
[2019-10-15] MEDS: FUROSEMIDE 20 MG TAB PO SCH (09:22)
[2019-10-15] MEDS: CYANOCOBALAMIN 500 MCG TABLET (VITAMIN B-12) PO SCH (09:22)
[2019-10-15] MEDS: CITALOPRAM 40 MG TAB PO SCH (09:22)
[2019-10-15 12:07] VITALS: BP 94/65; PULSE 77; TEMP 98.1; O2SAT 97
--- NOTE | 2019-10-15 12:57 | Hospitalist Progress Note ---
Date of Service October 15, 2019 Assessment & Plan (1) Headache: CT Head: No acute intracranial findings Head CTA:Unremarkable CT angiography of the brain for age Neck CTA:No evidence of hemodynamically significant internal carotid carotid or vertebral artery stenosis. No evidence of dissection. Moderate atheromatous changes at the level of the left carotid bulb with approximately 65% stenosis of the distal left common carotid Headache resolved Esophageal Dilatation ? Aspiration issues --CT ABD:No pneumothorax. The possible left pneumothorax and chest radiograph was artifactual. Markedly dilated esophagus filled with debris/ingested contents which may increase risk for aspiration. This is a change since CT of February 22, 2019. Apparent caliber change at the GE junction at the level of the diaphragmatic hiatus. Underlying stricture cannot be excluded. Although no mass identified, a mass cannot be excluded by CT. GI consultation is recommended. Previous gastric bypass. 2.1 cm wedge-shaped hypodensity within the spleen which suggests an age indeterminate small infarct. Trace left pleural effusion. Mild left lung opacity which favors atelectasis. Moderate cardiomegaly. Extensive coronary artery calcification. --S/P EGD: Normal esophagus. No stricture seen. Gastric bypass with a normal- sized pouch and intact staple line. Gastrojejunal anastomosis characterized by healthy appearing mucosa. Normal examined jejunum. No specimens collected. --Appreciate GI consulted Input --Speech eval --Tolerated regular diet --No recurrence of issues Chest Pain Resolved Minimal Troponin elevation ECHO: Moderate apical wall hypokinesis, EF 55 to 60%, severe tricuspid regurg itation, moderate pulmonary hypertension. Continue Plavix, Metoprolol ECHO changes likely due to Pacer as per Cards Appreciate Cardiology Input Intermittent Confusion ? Baseline DD: delirium, UTI CT head as above Reorient frequently Monitor Digoxin level:0.5 Normal TSH Mental status back to baseline Resolved (2) KATHY (acute kidney injury): KATHY resolved Cr back to baseline Received IV fluids Monitor (3) UTI (urinary tract infection): Suspected UTI as per UA examination Urine Cx: --mixed probable skin kandy, contaminated sample On Rocephin--completed antibiotic course (4) DM type 2 (diabetes mellitus, type 2): Hold oral diabetic agents Hypoglycemia intermittently due to poor oral intake Hold lantus Liberalized ISS Monitor BGs Continue Hypoglycemia protocol PRN (5) Atrial fibrillation: Heart rate is controlled with paced rhythm Coumadin held due to supratherapeutic INR Received vitamin K Monitor INR:2.9 Hold Coumadin for now Advised to follow up with Coumadin clinic as outpatient (6) Hypothyroidism: Continue Levothyroxine DVT Px: INR therapeutic Resume coumadin as able Code Status Full Code Disposition Plan to discharge home when medically stable Admission and Anticipated Discharge Date Admission Date: October 10, 2019 Subjective Patient is seen and examined at bedside No new complaints Denies Chest pain, shortness of breath, dizziness, abd pain Family at bedside Eager to get discharged Review of Systems Review of Systems: All systems reviewed & are unremarkable except as noted in HPI & below Physical Exam Physical Exam: Physical Exam: Vitals signs as noted above General Appearance:Moderately built and nourished, no apparent distress Head: normocephalic, Atraumatic Eyes: normal inspection, EOMI Neck: supple, Trachea midline Respiratory/Chest: Normal breath sounds, CTA Cardiovascular: Irregularly Irregular, + murmur Abdomen/GI:Soft, Non tender, Bowel sounds present Extremities/Musculoskelatal:normal inspection, Chronic RLE edema from prior trauma Neurologic/Psych:Alert, awake, oriented, grossly no focal neurological deficits Skin: normal color, warm Results & Data Results & Data ([facility]) Vital Signs (Past 12 Hours) Vital Signs Temp Pulse Resp BP BP Pulse Ox 10/15/19 12:06 36.7 C 77 19 94/65 L 97 10/15/19 07:04 36.5 C 70 18 124/75 99 10/15/19 04:28 36.5 C 62 18 131/73 99 Laboratory Results [facility] 10/15/19 06:08 Sodium 141 Potassium 4.4 Chloride 112 H Carbon Dioxide 25 BUN 11 Creatinine 0.86 Glucose 144 H Calcium 8.3 L (1) Headache Headache chronicity pattern: acute headache Headache type: unspecified Intractability: not intractable Qualified Code(s): R51 - Headache
--- NOTE | 2019-10-15 13:08 | Discharge Summary ---
Date of Service October 15, 2019 Admission HPI Per Admitting Provider CHIEF COMPLAINT: Headache. HISTORY OF PRESENT ILLNESS: This is an 78-year-old female with past medical history significant for type 2 diabetes, hypothyroidism, hyperlipidemia, mild persistent asthma, CAD, sinus node dysfunction status post pacemaker, atrial fibrillation, nonrheumatic aortic valve stenosis, diastolic CHF, GERD, glaucoma, macular degeneration, myelodysplastic syndrome, iron deficiency anemia, CAD status post stent, depression, who presents with headache. The patient lives with family and walks with a walker. The patient had some headache today that was not getting better. Thought maybe she has some dehydration. Came to the ER. In the ER, the labs showed her INR was greater than 9.7. Potassium of 2.9, magnesium 1.7, and urine was positive for UTI. Her imaging studies were unremarkable. The patient is on Coumadin for atrial fibrillation. She knows that she takes this medication, but there is some question of what medications she is taking. The patient says she takes medications with a medication box. She recognized that she takes Coumadin and also as per [facility] note she is following with the Coumadin clinic. Last Coumadin check as per [facility] on 09/27/2019 was 1.1 and on 08/15/2019 was 2.3. Denies any fever or chills. No blurred visions, no earache, no runny nose, no sore throat, no cough, no shortness of breath, no chest pain, no nausea, no vomiting, no abdominal pain, no diarrhea or constipation, no blood in the stools or black stools. No rash. Currently resting comfortably and hemodynamically stable. Admission Exam Per Admitting Provider PHYSICAL EXAMINATION: GENERAL: The patient is alert and awake, not in acute distress. VITAL SIGNS: Temperature 36.9, pulse 61, respiratory rate 14, blood pressure 117/52, oxygen 98% on room air. HEENT: No pallor, no icterus. NECK: No JVD, no neck masses. CARDIOVASCULAR: S1, S2 heard. Regular rate and rhythm. No murmur, no gallop. RESPIRATORY SYSTEM: Normal AP diameter. No accessory muscle use. No wheezing, no crackles. ABDOMEN: Soft, bowel sounds present, nontender. No distention. CENTRAL NERVOUS SYSTEM: Cranial nerves II-XII grossly intact. Nonfocal. EXTREMITIES: No edema, no erythema. Principal Diagnosis Acute kidney injury Urinary tract infection Esophageal dilatation Headache Discharge Data Allergies Allergy/AdvReac Type Severity Reaction Status Date / Time adhesive Allergy Unknown ADHESIVE Verified 10/10/19 16:16 TAPE Consultations 10/10/19 21:10 ED Decision to Admit Stat 10/11/19 01:08 Consult Case Management - Discharge Planning Routine 10/12/19 11:13 Consult Cardiology Routine 10/13/19 07:00 Consult Gastroenterology Routine Procedures Performed Operation Date: 10/14/19 13:05 Actual Procedures p Esophagogastroduodenoscopy - Kevan Ellis --CT ABD:No pneumothorax. The possible left pneumothorax and chest radiograph was artifactual. Markedly dilated esophagus filled with debris/ingested contents which may increase risk for aspiration. This is a change since CT of February 22, 2019. Apparent caliber change at the GE junction at the level of the diaphragmatic hiatus. Underlying stricture cannot be excluded. Although no mass identified, a mass cannot be excluded by CT. GI consultation is recommended. Previous gastric bypass. 2.1 cm wedge-shaped hypodensity within the spleen which suggests an age indeterminate small infarct. Trace left pleural effusion. Mild left lung opacity which favors atelectasis. Moderate cardiomegaly. Extensive coronary artery calcification. --S/P EGD: Normal esophagus. No stricture seen. Gastric bypass with a normal- sized pouch and intact staple line. Gastrojejunal anastomosis characterized by healthy appearing mucosa. Normal examined jejunum. No specimens collected. CT Head: No acute intracranial findings Head CTA:Unremarkable CT angiography of the brain for age Neck CTA:No evidence of hemodynamically significant internal carotid carotid or vertebral artery stenosis. No evidence of dissection. Moderate atheromatous changes at the level of the left carotid bulb with approximately 65% stenosis of the distal left common carotid Ordered Studies 10/10/19 15:54 CT head/brain wo con Stat 10/10/19 16:05 CT angio head w con Stat CT angio neck with con Stat 10/12/19 13:41 CT chest wo con Urgent Hospital Course (1) Headache: CT Head: No acute intracranial findings Head CTA:Unremarkable CT angiography of the brain for age Neck CTA:No evidence of hemodynamically significant internal carotid carotid or vertebral artery stenosis. No evidence of dissection. Moderate atheromatous changes at the level of the left carotid bulb with approximately 65% stenosis of the distal left common carotid Headache resolved Esophageal Dilatation ? Aspiration issues --CT ABD:No pneumothorax. The possible left pneumothorax and chest radiograph was artifactual. Markedly dilated esophagus filled with debris/ingested contents which may increase risk for aspiration. This is a change since CT of February 22, 2019. Apparent caliber change at the GE junction at the level of the diaphragmatic hiatus. Underlying stricture cannot be excluded. Although no mass identified, a mass cannot be excluded by CT. GI consultation is recommended. Previous gastric bypass. 2.1 cm wedge-shaped hypodensity within the spleen which suggests an age indeterminate small infarct. Trace left pleural effusion. Mild left lung opacity which favors atelectasis. Moderate cardiomegaly. Extensive coronary artery calcification. --S/P EGD: Normal esophagus. No stricture seen. Gastric bypass with a normal- sized pouch and intact staple line. Gastrojejunal anastomosis characterized by healthy appearing mucosa. Normal examined jejunum. No specimens collected. --Appreciate GI consulted Input --Speech eval --Tolerated regular diet --No recurrence of issues Chest Pain Resolved Minimal Troponin elevation ECHO: Moderate apical wall hypokinesis, EF 55 to 60%, severe tricuspid regurgitation, moderate pulmonary hypertension. Continue Plavix, Metoprolol ECHO changes likely due to Pacer as per Cards Appreciate Cardiology Input Intermittent Confusion ? Baseline DD: delirium, UTI CT head as above Reorient frequently Monitor Digoxin level:0.5 Normal TSH Mental status back to baseline Resolved (2) KATHY (acute kidney injury): KATHY resolved Cr back to baseline Received IV fluids Monitor (3) UTI (urinary tract infection): Suspected UTI as per UA examination Urine Cx: --mixed probable skin kandy, contaminated sample On Rocephin--completed antibiotic course (4) DM type 2 (diabetes mellitus, type 2): Hold oral diabetic agents Hypoglycemia intermittently due to poor oral intake Hold lantus Liberalized ISS Monitor BGs Continue Hypoglycemia protocol PRN (5) Atrial fibrillation: Heart rate is controlled with paced rhythm Coumadin held due to supratherapeutic INR Received vitamin K Monitor INR:2.9 Hold Coumadin for now Advised to follow up with Coumadin clinic as outpatient (6) Hypothyroidism: Continue Levothyroxine DVT Px: INR therapeutic Resume coumadin as able Code Status Full Code Disposition Plan to discharge home when medically stable Total Time Total Time Spent Total Time Spent (In Minutes): 45 minutes Total Time Includes: Examination of the Patient, Discharge Planning, Medication Reconciliation, Communication With Other Providers and Other Discharge Plan Discharge Items Patient Disposition: Home - Self-Care Reason For Visit: HEADACHE Discharge Diagnosis: Acute kidney injury Urinary tract infection Esophageal dilatation Headache Activity: Resume your previous activity Exercise/Sports: Gradually increase as tolerated Non-emergency contact: Primary Care Provider Call non-emergency contact if: you have any medication questions, your symptoms worsen, your pain is not controlled, your pain is worsening, your pain is unusual for you, your pain is concerning for you and you have a fever Follow-up/Referrals: Liza Dobbs DO [Primary Care Provider] - 10/21/19 12:00 pm (10/21/2019 12:00 PM Provider Liza Dobbs DO [facility] ) Diet: Carb Consistent or DM2 Ambulatory Orders: Prothrombin Time INR (Routine) Timeframe: [id number] Location: Determined by Patient Ordered By: José Miguel Hidalgo Attending Provider Instructions: Follow-up with your primary care physician Dr. Dobbs on October 21, 2019 at 12 PM as scheduled Follow-up with Coumadin clinic as advised for management of PT/INR and Coumadin dosing Your PT/INR today (Oct 14) is 2.9 DO NOT TAKE COUMADIN TODAY (10/15/19) AND TOMORROW (10/16/19) Get blood test PT/INR checked on 10/17/19 and follow-up with Coumadin clinic for further management of Coumadin dosing. Seek immediate medical attention if your symptoms reoccur or worsen Pending Studies at Discharge: No Stand-Alone Forms: My [employer], Smoking Cessation Medications and DC Order Prescriptions: Continued citalopram 40 mg Tablet 40 mg PO DAILY RF: 0 levothyroxine 50 mcg Tablet 50 mcg PO DAILY RF: 0 pantoprazole [Protonix] 40 mg Tablet,Delayed Release (Dr/Ec) 40 mg PO DAILY RF: 0 prednisone 5 mg tablet 5 mg PO DAILY Qty: 7 RF: 0 pediatric multivitamin [Flintstones Multivitamin] Tablet,Chewable 1 tab PO QAM RF: 0 metoprolol succinate 25 mg Tablet Extended Release 24 Hr 25 mg PO QAM RF: 0 Lantus Solostar U-100 Insulin 100 unit/mL (3 mL) Insulin Pen 16 unit SUBCUT QAM RF: 0 clopidogrel [Plavix] 75 mg Tablet 75 mg PO QAM RF: 0 cyanocobalamin (vitamin B-12) 500 mcg Tablet 500 mcg PO QAM RF: 0 ferrous sulfate 325 mg (65 mg iron) Tablet 325 mg PO BID RF: 0 albuterol sulfate 90 mcg/actuation Hfa Aerosol Inhaler 2 puff INHALATION Q4H PRN (Reason: Shortness Of Breath Or Wheezing) RF: 0 digoxin 125 mcg (0.125 mg) tablet 125 mcg PO USEASDIRECTD RF: 0 furosemide 20 mg tablet 20 mg PO DAILY RF: 0 Coumadin 7.5 mg 7.5 mg PO DAILY RF: 0 Discharge Orders: Discharge Order (Routine); Ordered 10/15/19 Ordered By: José Miguel Putnam/Other Patient Handouts: Managing Type 2 Diabetes Admission Data Admit Date/Time: 10/10/19 22:10 Attending Provider: José Miguel Coleman Admit Provider: Herminio Gil Primary Care Provider: Liza Dobbs Other Providers: Herminio Gil ; Felix Caraballo ; Kevan Ellis Other Interventions: Discharge Summary Assessment (RN) Last Done: 10/15/19 13:37 DC Date/Time DO NOT enter until pt leaves facility: 10/15/19 14:16
== END 2019-10-15 14:16 | disposition home or self-care (01) | DRG 683 ==
LOC: ED 15:10 → SUATTDRO 22:10 → 2W 22:10 → 2S 10-12 13:16

== ENCOUNTER 2020-02-18 16:27 | Inpatient (IN) ==
[2020-02-18] MEDS ORDERED: MoRPHine SULFATE 2 MG/ML CARP ONE (17:11)
[2020-02-18] MEDS ORDERED: ONDANSETRON INJ 2 MG/ML 2 ML VIAL ONE (17:11)
[2020-02-18 17:43] LABS: INR 1.1 (0.9-1.1); Partial Thromboplastin Ratio 0.9; Prothrombin Time 11.5 Seconds (9.0-12.0)
--- NOTE | 2020-02-18 17:43 | Emergency Department Note ---
History of Present Illness General Chief complaint: Hip Pain Time Seen by Provider: 02/18/20 17:16 Source: patient Mode of arrival: EMS Limitations: no limitations History of Present Illness Provider complaint: Left hip injury/fall This is a 79-year-old female who presents to the ED with a chief complaint of left hip pain. The patient states that she was walking through her house when she suddenly fell. She is not sure why she fell. Her leg may have just given out. She states that she landed on her left hip and was on the floor for a short period of time until her family helped her. This occurred about 2 hours prior to arrival. The patient was transported here by EMS. They did provide IM morphine in route with some relief of her pain. She has increased pain in the left hip with any movement. She denies striking her head. She is chronically on Eliquis. The patient has no other complaints of injury at this time. Denies loss of consciousness or passing out or presyncope. Home Medications Medication Instructions Recorded Confirmed Type Lantus Solostar U-100 Insulin 16 unit SUBCUT QAM 12/06/17 10/10/19 History metoprolol succinate 25 mg PO QAM 12/06/17 10/10/19 History pediatric multivitamin 1 tab PO QAM 12/06/17 10/10/19 History [Flintstones Multivitamin] albuterol sulfate 2 puff INHALATION Q4H PRN 11/08/18 10/10/19 History clopidogrel [Plavix] 75 mg PO QAM 11/08/18 10/10/19 History cyanocobalamin (vitamin B-12) 500 mcg PO QAM 11/08/18 10/10/19 History ferrous sulfate 325 mg PO BID 11/08/18 10/10/19 History citalopram 40 mg PO DAILY 03/13/19 10/10/19 History levothyroxine 50 mcg PO DAILY 03/13/19 10/10/19 History pantoprazole [Protonix] 40 mg PO DAILY 03/13/19 10/10/19 History prednisone 5 mg PO DAILY #7 tab 03/22/19 10/10/19 Rx Coumadin 7.5 mg PO DAILY 10/10/19 10/10/19 History digoxin 125 mcg PO USEASDIRECTD 10/10/19 10/10/19 History furosemide 20 mg PO DAILY 10/10/19 10/10/19 History Allergies Allergy/AdvReac Type Severity Reaction Status Date / Time adhesive Allergy Unknown ADHESIVE Verified 10/10/19 16:16 TAPE Past Med/Surg History Medical History (Updated 02/18/20 @ 18:27 by Chandra Looney DO) Aortic root dilatation 4.4 cm on echo 01/2019 Asthma Atrial fibrillation Bifascicular block CAD (coronary artery disease) "1995 - PTCA and stenting of RCA 07/2011 - atherectomy and stenting RCA 12/2011- AZALIA to the mid LAD 2016-Cobra stent to mid LAD 2017-AZALIA to ostial diagonal Depression DM type 2 (diabetes mellitus, type 2) Dyslipidemia Hypothyroidism HOMERO (iron deficiency anemia) Macular degeneration MDS (myelodysplastic syndrome) Mild aortic stenosis Pacemaker Sinus node dysfunction Surgical History History of angioplasty History of arthroscopy of knee History of arthroscopy of shoulder History of cholecystectomy History of gastric bypass History of incisional hernia repair History of partial hysterectomy History of tonsillectomy Family History Father Colorectal cancer Sister Lung cancer Diabetes Brother Diabetes Mother Diabetes Social History Smoking Status: Never smoker Hx Alcohol Use: No Hx Substance Use: No Preferred Language: Danish Communication Ability: Effective Visual Impairment: No Limitations Hearing Ability: Normal Fruit Thinner Required: No Beliefs That Will Affect Care: None marital status: / Current Living Situation: Family Current Living Situation Comment: Pt lives with her son, [id number], daughter, son-in-law, & 2 children current occupational status: retired How many Children do You have: 3 Feels Safe at Home: Yes Assistive Devices: Cane Review of Systems A total of 10 systems reviewed and were otherwise negative Physical Exam CONSTITUTIONAL/VITAL SIGNS: Reviewed / noted above. GENERAL: Non-toxic in appearance. INTEGUMENTARY: Warm, dry, and [place]. HEAD: Normocephalic. EYES: without scleral icterus or trauma. ENT/OROPHARYNX: clear and moist. LYMPHADENOPATHY/NECK: Is supple without lymphadenopathy or meningismus. RESPIRATORY: Lungs clear and equal. CARDIOVASCULAR: Regular rate and rhythm. GI/ABDOMEN: Soft and nontender. No organomegaly or pulsatile mass. No rebound or guarding. Normal bowel sounds. EXTREMITIES: Warm and well perfused. The patient has some shortening to the left leg. She has it in a flexed position on a pillow. She has tenderness to palpation of the left hip and any movement causes increased pain. BACK: No CVA tenderness. NEUROLOGICAL: Intact without focal deficits. PSYCHIATRIC: normal affect. MUSCULOSKELETAL: Normally developed with good muscle tone. TRIAGE NURSING DOCUMENTATION REVIEWED. Medical Decision Making Differential Diagnosis Differential includes close head injury, intracranial bleed, facial trauma, cervical spine trauma, chest and thoracic trauma, abdominal and intra-abdominal trauma, spine neurologic trauma, extremity trauma. Medical Records Attestation: I reviewed the patient's medical records. Home Medications Current Medication List: was personally reviewed by me Laboratory Data Attestation: I reviewed the patient's lab results. Lab Results 02/18/20 02/18/20 02/18/20 Range/Units 16:35 16:35 16:35 PT 11.5 (9.0-12.0) Seconds INR 1.1 (0.9-1.1) APTT 25.0 (21.0-31.0) Seconds PTT Ratio 0.9 Urine Color Urine Appearance (Clear) Urine pH (4.5-7.5) Ur Specific [place] (1.000-1.030) Urine Protein (Negative) Urine Glucose (UA) (Negative) Urine Ketones (Negative) Urine Blood (Negative) Urine Nitrite (Negative) Urine Bilirubin (Negative) Urine Urobilinogen (Negative) Ur Leukocyte Esterase (Negative) Urine WBC (Auto) (0-5) /hpf Urine RBC (Auto) (0-4) /hpf U Hyaline Cast (Auto) (0-5) /lpf U Epithel Cells (Auto) (0-5) /lpf Urine Bacteria (Auto) (Negative) SARS-CoV-2, RNA, NAAT NEGATIVE (NEGATIVE) Blood Type A Negative Antibody Screen POSITIVE A 02/18/20 Range/Units 16:50 PT (9.0-12.0) Seconds INR (0.9-1.1) APTT (21.0-31.0) Seconds PTT Ratio Urine Color Yellow Urine Appearance Clear (Clear) Urine pH 7.0 (4.5-7.5) Ur Specific [place] 1.016 (1.000-1.030) Urine Protein Negative (Negative) Urine Glucose (UA) Negative (Negative) Urine Ketones Negative (Negative) Urine Blood Trace H (Negative) Urine Nitrite Negative (Negative) Urine Bilirubin Negative (Negative) Urine Urobilinogen Negative (Negative) Ur Leukocyte Esterase Trace H (Negative) Urine WBC (Auto) 1-5 (0-5) /hpf Urine RBC (Auto) 5-10 H (0-4) /hpf U Hyaline Cast (Auto) 1-5 (0-5) /lpf U Epithel Cells (Auto) 10-20 H (0-5) /lpf Urine Bacteria (Auto) Negative (Negative) SARS-CoV-2, RNA, NAAT (NEGATIVE) Blood Type Antibody Screen Imaging Data Attestation: I personally reviewed and interpreted this imaging study as follows: My Impression: X-ray of the pelvis and left hip left intertrochanteric hip fracture with avulsion of the lesser trochanter. Chest x-ray: No acute disease. ECG Data Attestation: I personally reviewed and interpreted this ECG as follows: Indication: + other (Hip fracture) Rate (beats per minute): 70 Rhythm: + atrial flutter ECG ST segments: + T-wave inversions (Inferior lateral) ECG Findings: + PVCs Comparison ECG Date: from (10/10/2019) Change: no significant change MDM Narrative Patient presents with a left hip fracture after a fall. She is chronically on Eliquis with a history of A. fib. She denies striking her head or loss of consciousness. She denies any other areas of pain other than her left hip. The patient's x-ray reveals a left hip fracture. Her CBC and chemistry panel was unremarkable. Chest x-ray did not show acute process. EKG shows atrial flutter with a controlled ventricular response. Covid test is negative. Coagulation studies were within normal limits. The patient will be seen by the hospitalist for further inpatient evaluation and care. The patient does not recall any orthopedist that she has seen in the past. She states that has been a long time. She will need referred to the unassigned orthopedist, Dr. Plummer for further orthopedic follow-up. The patient was given some IV morphine as well as IV Zofran for her symptoms. Impression & Plan Closed fracture of left hip, Fall Discharge Plan Visit Data Chief Complaint: Hip Pain ED Provider: Chandra Looney Discharge Problem: Closed fracture of left hip, Fall Patient Disposition: Being Evaluated by Hospitalist Forms Stand Alone Forms: My [facility] [place] [employer] Prescriptions Prescriptions: No Action citalopram 40 mg Tablet 40 mg PO DAILY RF: 0 levothyroxine 50 mcg Tablet 50 mcg PO DAILY RF: 0 pantoprazole [Protonix] 40 mg Tablet,Delayed Release (Dr/Ec) 40 mg PO DAILY RF: 0 prednisone 5 mg tablet 5 mg PO DAILY Qty: 7 RF: 0 pediatric multivitamin [Flintstones Multivitamin] Tablet,Chewable 1 tab PO QAM RF: 0 metoprolol succinate 25 mg Tablet Extended Release 24 Hr 25 mg PO QAM RF: 0 Lantus Solostar U-100 Insulin 100 unit/mL (3 mL) Insulin Pen 16 unit SUBCUT QAM RF: 0 clopidogrel [Plavix] 75 mg Tablet 75 mg PO QAM RF: 0 cyanocobalamin (vitamin B-12) 500 mcg Tablet 500 mcg PO QAM RF: 0 ferrous sulfate 325 mg (65 mg iron) Tablet 325 mg PO BID RF: 0 albuterol sulfate 90 mcg/actuation Hfa Aerosol Inhaler 2 puff INHALATION Q4H PRN (Reason: Shortness Of Breath Or Wheezing) RF: 0 digoxin 125 mcg (0.125 mg) tablet 125 mcg PO USEASDIRECTD RF: 0 furosemide 20 mg tablet 20 mg PO DAILY RF: 0 Coumadin 7.5 mg 7.5 mg PO DAILY RF: 0 Referrals Referrals: Liza Dobbs DO [Primary Care Provider] - Discharge Problem: Closed fracture of left hip Qualifiers: Encounter type: initial encounter Qualified Code(s): S72.002A - Fracture of unspecified part of neck of left femur, initial encounter for closed fracture Fall Qualifiers: Encounter type: initial encounter Qualified Code(s): W19.XXXA - Unspecified fall, initial encounter
[2020-02-18 17:44] LABS: Appearance Urine Clear (Clear); Bacteria Urine Automated Negative (Negative); Bilirubin Urine Negative (Negative); Blood Urine Trace (Negative); Color Urine Yellow; Glucose Urine UA Negative (Negative); Ketones Urine Negative (Negative); Leukocyte Esterase Urine Trace (Negative); Nitrite Urine Negative (Negative); Protein Urine Negative (Negative); Specific Gravity Urine 1.016 (1.000-1.030); Urobilinogen Urine Negative (Negative)
--- NOTE | 2020-02-18 18:55 | XRay Report ---
XR chest 1V portable CLINICAL HISTORY: Preoperative chest. Left hip fracture COMPARISON STUDY: 10/12/2019 FINDINGS: The heart is the upper limits of normal in size. There is a left subclavian dual-chamber ce ntral venous pacemaker. There is calcification within the mitral valve annulus. There is no failure. There is no focal pulmonary consolidation. There are no pleural effusions.[There is made of prominent vascular calcifications including carotid bifurcation calcifications and upper abdominal enteric vas cular calcifications. IMPRESSION: No active disease in the chest. ACT 112: Negative or not required by law. Electronically signed by: Juan Pablo Man M.D. 02/18/2020 6:28 PM
--- NOTE | 2020-02-18 18:55 | XRay Report ---
XR hip LT 2V w pelvis CLINICAL HISTORY: Left hip pain COMPARISON: None. DISCUSSION: There is an acute intertrochanteric left hip fracture. There is no SI joint diastases. Th ere is no symphysis diastases. IMPRESSION: Intertrochanteric left hip fracture. ACT 112: Negative or not required by law. Electronically signed by: Juan Pablo Man M.D. 02/18/2020 6:27 PM
[2020-02-18 20:03] LABS: Basophils # (auto) 0.01 K/uL (0-0.2); Basophils % (auto) 0.1 %; Eosinophils # (auto) 0.04 K/uL (0-0.5); Eosinophils % (auto) 0.6 %; Hemoglobin 11.5 g/dL (12.0-16.0); Immature Granulocytes # (auto) 0.02 K/uL (0.00-0.02); Immature Granulocytes % (auto) 0.3 %; Lymphocytes # (auto) 0.86 K/uL (1.2-3.4); Lymphocytes % (auto) 12.6 %; Mean Corpuscular Hemoglobin 29.9 pg (25-34); Mean Corpuscular Hgb Conc 32.9 g/dL (32-36); Mean Corpuscular Volume 91.1 fL (80-100); Mean Platelet Volume 10.8 fL (7.4-10.4); Monocytes # (auto) 0.42 K/uL (0.11-0.59); Monocytes % (auto) 6.2 %; Neutrophils # (auto) 5.46 K/uL (1.4-6.5); Neutrophils % (auto) 80.2 %; Platelet Count 192 K/uL (130-400); RDW Coefficient of Variation 13.3 % (11.5-14.5); RDW Standard Deviation 43.9 fL (36.4-46.3); Red Blood Count 3.84 M/uL (4.2-5.4); White Blood Count 6.81 K/uL (4.8-10.8)
[2020-02-18] MEDS ORDERED: SODIUM CHLORIDE 0.9% 500 ML IV ONE ×2 (20:08→20:18)
[2020-02-18] MEDS ORDERED: PROMETHAZINE HCL 6.25 MG in SODIUM CHLORIDE 0.9% 50 ML IV STA (20:08)
[2020-02-18] MEDS ORDERED: KETOROLAC TROMETHAMINE 15 MG/ML VIAL IV ONE (20:08)
[2020-02-18] MEDS ORDERED: PROCHLORPERAZINE 5 MG/ML 2 ML VIAL ONE (20:11)
[2020-02-18] MEDS ORDERED: KETOROLAC TROMETHAMINE 60 MG/2 ML VIAL ONE (20:12)
--- NOTE | 2020-02-18 20:25 | History & Physical Report ---
Date of Service February 18, 2020 Assessment & Plan (1) Hypotension: Hypotension Leading to possible syncopal event leading to left hip fracture secondary to fall Rule out progression of valvular heart disease ( hx mild to moderate aortic stenosis, moderate mitral stenosis as per records), pacemaker dysfunction (SSS sp PPM, paced rhythm) chronic diastolic heart failure (EF 55 to 59%, TTE 2018), patient euvolemic to dry hx CAD status post stent on Plavix (last AZALIA placed December 2017) DM 2 insulin requiring, well-controlled as of recent outpatient hemoglobin A1c of 6.23 November 2019 chronic anemia, hemoglobin at baseline myelodysplastic syndrome as per records PCU IVF Appropriate to hold home beta-marie, diuretic for now given hypotension Update TTE RE syncope, hypotension, history of valvular disease Pacemaker interrogation Orthopedics consult RE left hip fracture (Dr. Plummer recommends possible surgery pending patient evaluation and discussion with patient/family.) Cardiology consult for preop eval given patient's complicated cardiac history Hold Plavix and Eliquis given potential surgery. (Eliquis ideally held 48 hours prior to contemplated surgery date.) Resume Plavix for secondary CAD prevention once Orthopedics OK. Basal insulin, ISS BG goal [id number], carb count coverage PT OT eval DVT prophylaxis. SCDs while Eliquis on hold. Full code Patient son requesting updates for providers. Mr. Kevan Palomo, contact #[phone]. Text document was generated using [employer] voice recognition software. It may contain grammatical or spelling errors. Kindly contact undersigned for clarification of any documentation item in question. History of Present Illness Primary Care Provider: Liza Dobbs, History obtained from patient and records. Medical history significant for chronic diastolic heart failure (EF 55 to 60%, TTE 2019), SSS sp PPM, CAD status post stent, valvular heart disease (mild to moderate aortic stenosis, moderate mitral stenosis), hypertension, hyperlipidemia, DM 2 insulin requiring, hypothyroidism, chronic anemia (baseline hemoglobin of 11), myelodysplastic syndrome as per records. Last confinement October 2019 for headache symptoms. Patient was walking towards her kitchen carrying a bottle of water when she fell down landing on her left side. Not sure if she passed out. Denies chest pain, S OB, headache, head trauma symptoms. Achy left hip pain worse with motion. Unable to get up. Patient brought to the ER for evaluation. 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, lives with son Allergies Allergy/AdvReac Type Severity Reaction Status Date / Time adhesive Allergy Unknown ADHESIVE Verified 02/18/20 18:51 TAPE Home Medications Medication Instructions Recorded Confirmed Type Flintstones Multivitamin 1 tab PO QAM 12/06/17 02/18/20 History Lantus Solostar U-100 Insulin 16 unit SUBCUT QAM 12/06/17 02/18/20 History metoprolol succinate 37.5 mg PO QAM 12/06/17 02/18/20 History albuterol sulfate 2 puff INHALATION Q4H PRN 11/08/18 02/18/20 History clopidogrel [Plavix] 75 mg PO QAM 11/08/18 02/18/20 History ferrous sulfate 325 mg PO BID 11/08/18 02/18/20 History citalopram 40 mg PO QAM 03/13/19 02/18/20 History levothyroxine 50 mcg PO QAM 03/13/19 02/18/20 History pantoprazole [Protonix] 40 mg PO QAM 03/13/19 02/18/20 History digoxin 125 mcg PO 5XWK 10/10/19 02/18/20 History furosemide 20 mg PO QAM 10/10/19 02/18/20 History apixaban [Eliquis] 5 mg PO BID 02/18/20 02/18/20 History cyanocobalamin (vitamin B-12) 1,000 mcg IM MONTHLY 02/18/20 02/18/20 History nitroglycerin 0.4 mg SUBLINGUAL DIRECTED PRN 02/18/20 02/18/20 History Past Med/Surg History Medical History (Updated 02/18/20 @ 22:07 by Alexey De La Rosa MD) Aortic root dilatation 4.4 cm on echo 01/2019 Asthma Atrial fibrillation Bifascicular block CAD (coronary artery disease) "1995 - PTCA and stenting of RCA 07/2011 - atherectomy and stenting RCA 12/2011- AZALIA to the mid LAD 2016-Cobra stent to mid LAD 2017-AZALIA to ostial diagonal Depression DM type 2 (diabetes mellitus, type 2) Dyslipidemia Hypothyroidism HOMERO (iron deficiency anemia) Macular degeneration MDS (myelodysplastic syndrome) Mild aortic stenosis Pacemaker Sinus node dysfunction Surgical History History of angioplasty History of arthroscopy of knee History of arthroscopy of shoulder History of cholecystectomy History of gastric bypass History of incisional hernia repair History of partial hysterectomy History of tonsillectomy Family History Father Colorectal cancer Sister Lung cancer Diabetes Brother Diabetes Mother Diabetes Social History Smoking Status: Never smoker Second Hand Exposure: No; Do You Dip or Chew Tobacco: No; Tobacco Cessation Education Requested by Patient: No Hx Alcohol Use: No Hx Substance Use: No Preferred Language: Serbian Communication Ability: Effective Visual Impairment: No Limitations Hearing Ability: Normal Double End Tenon Operator Required: No Beliefs That Will Affect Care: None marital status: / Current Living Situation: Family Current Living Situation Comment: Pt lives with her son, [id number], daughter, son-in-law, & 2 children current occupational status: retired How many Children do You have: 3 Other Information That Helps Us Care for You: No Feels Safe at Home: Yes Safety Concerns: Feels Safe At This Time Assistive Devices: Cane Review of Systems Review of Systems: As per HPI, all 10 systems reviewed, all other ROS negative Physical Exam Physical Exam: Physical Exam: GENERAL: Slightly uncomfortable, pleasant, obese, mild hearing impairment, no respiratory distress SKIN: Pallor, warm HEENT: Pale palpebral conjunctivae, dry buccal mucosa NECK : Supple, short neck, no tenderness CHEST : Decreased breath sounds, no tenderness HEART : RRR, systolic murmur ABDOMEN: Some distention, nontender EXTREMITIES : Minimal LE swelling, rotated left hip with tenderness NEUROLOGIC : Coherent, no facial asymmetry, slightly hard of hearing, no other gross focality Results & Data Results & Data ([facility]) Vital Signs (Past 12 Hours) Vital Signs Pulse Resp BP Pulse Ox 02/18/20 20:00 72 18 97/60 L 93 02/18/20 19:30 71 13 93/51 L 98 02/18/20 19:00 72 12 90/49 L 96 Laboratory Results Laboratory Results WBC 6.81 K/uL (4.8-10.8) 02/18/20 16:35 RBC 3.84 M/uL (4.2-5.4) L 02/18/20 16:35 Hgb 11.5 g/dL (12.0-16.0) L 02/18/20 16:35 Hct 35.0 % (37-47) L 02/18/20 16:35 MCV 91.1 fL (80-100) 02/18/20 16:35 MCH 29.9 pg (25-34) 02/18/20 16:35 MCHC 32.9 g/dL (32-36) 02/18/20 16:35 RDW Std Deviation 43.9 fL (36.4-46.3) 02/18/20 16:35 RDW Coeff of Gaston 13.3 % (11.5-14.5) 02/18/20 16:35 Plt Count 192 K/uL (130-400) 02/18/20 16:35 MPV 10.8 fL (7.4-10.4) H 02/18/20 16:35 Immature Gran % (Auto) 0.3 % 02/18/20 16:35 Neut % (Auto) 80.2 % 02/18/20 16:35 Lymph % (Auto) 12.6 % 02/18/20 16:35 [place] % (Auto) 6.2 % 02/18/20 16:35 Eos % (Auto) 0.6 % 02/18/20 16:35 Baso % (Auto) 0.1 % 02/18/20 16:35 Neut # (Auto) 5.46 K/uL (1.4-6.5) 02/18/20 16:35 Lymph # (Auto) 0.86 K/uL (1.2-3.4) L 02/18/20 16:35 [place] # (Auto) 0.42 K/uL (0.11-0.59) 02/18/20 16:35 Eos # (Auto) 0.04 K/uL (0-0.5) 02/18/20 16:35 Baso # (Auto) 0.01 K/uL (0-0.2) 02/18/20 16:35 Immature Gran # (Auto) 0.02 K/uL (0.00-0.02) 02/18/20 16:35 PT 11.5 Seconds (9.0-12.0) 02/18/20 16:35 INR 1.1 (0.9-1.1) 02/18/20 16:35 APTT 25.0 Seconds (21.0-31.0) 02/18/20 16:35 PTT Ratio 0.9 02/18/20 16:35 Urine Color Yellow 02/18/20 16:50 Urine Appearance Clear (Clear) 02/18/20 16:50 Urine pH 7.0 (4.5-7.5) 02/18/20 16:50 Ur Specific [place] 1.016 (1.000-1.030) 02/18/20 16:50 Urine Protein Negative (Negative) 02/18/20 16:50 Urine Glucose (UA) Negative (Negative) 02/18/20 16:50 Urine Ketones Negative (Negative) 02/18/20 16:50 Urine Blood Trace (Negative) H 02/18/20 16:50 Urine Nitrite Negative (Negative) 02/18/20 16:50 Urine Bilirubin Negative (Negative) 02/18/20 16:50 Urine Urobilinogen Negative (Negative) 02/18/20 16:50 Ur Leukocyte Esterase Trace (Negative) H 02/18/20 16:50 Urine WBC (Auto) 1-5 /hpf (0-5) 02/18/20 16:50 Urine RBC (Auto) 5-10 /hpf (0-4) H 02/18/20 16:50 U Hyaline Cast (Auto) 1-5 /lpf (0-5) 02/18/20 16:50 U Epithel Cells (Auto) 10-20 /lpf (0-5) H 02/18/20 16:50 Urine Bacteria (Auto) Negative (Negative) 02/18/20 16:50 SARS-CoV-2, RNA, NAAT NEGATIVE (NEGATIVE) 02/18/20 16:35 SARS-CoV-2 Ag (Rapid) Negative (Negative) 02/18/20 16:35 Blood Type A Negative 02/18/20 16:35 Antibody Screen POSITIVE A 02/18/20 16:35 Antibody Identification Anti-D 02/18/20 16:35 Diagnostic Findings Hip/pelvis x-ray : Intertrochanteric left hip fracture. Chest x-ray : No active disease EKG as per my interpretation : Rate 70, atrial flutter, LAD, LAFB, right bundle branch block, T wave abnormalities anterolateral leads
[2020-02-18 20:36] LABS: Alanine Aminotransferase 13 U/L (12-78); Albumin Level 3.1 gm/dl (3.4-5.0); Alkaline Phosphatase 86 U/L (45-117); Aspartate Aminotransferase 18 U/L (15-37); BUN Creatinine Ratio 13.9 (10-20); Bilirubin,Total 0.4 mg/dl (0.2-1); Blood Urea Nitrogen 16 mg/dl (7-18); Calcium 8.5 mg/dl (8.5-10.1); Carbon Dioxide 30 mmol/L (21-32); Chloride 106 mmol/L (98-107); Est GFR (African American) 50.1; Est GFR (Non-African American) 43.2; Globulin 3.1 gm/dl (2.5-4.0); Glucose 155 mg/dl (70-99); Potassium 3.6 mmol/L (3.5-5.1); Sodium 141 mmol/L (136-145); Total Protein 6.2 gm/dl (6.4-8.2)
[2020-02-18] MEDS ORDERED: PROMETHAZINE 6.25 MG/50.25 ML BAG IV STA (20:44)
[2020-02-18 20:51] LABS: Albumin Level 3.1 gm/dl (3.4-5.0); Magnesium 1.7 mg/dl (1.8-2.4); Troponin I 0.016 ng/ml (0-0.045)
[2020-02-18] MEDS ORDERED: GLUCOSE 10 TABS/TUBE PO PRN (21:49)
[2020-02-18] MEDS ORDERED: ACETAMINOPHEN 325 MG TAB PO PRN (21:49)
[2020-02-18] MEDS ORDERED: bisacodyL 10 MG SUPP PR PRN (21:49)
[2020-02-18] MEDS ORDERED: GLUCOSE 40% GEL 15 GM TUBE PO PRN (21:49)
[2020-02-18] MEDS ORDERED: MAGNESIUM HYDROXIDE SUSP 30 ML UDC PO PRN (21:49)
[2020-02-18] MEDS ORDERED: DEXTROSE 50% 50 ML SYRINGE IV PRN (21:49)
[2020-02-18] MEDS ORDERED: CARBOHYDRATES FOR HYPOGLYCEMIA PO PRN (21:49)
[2020-02-18] MEDS ORDERED: traMADol HCL 50 MG TABLET PO PRN (21:49)
[2020-02-18] MEDS ORDERED: NALOXONE HCL 0.4 MG/1 ML VIAL/CARP IV PRN (21:49)
[2020-02-18] MEDS ORDERED: NITROGLYCERIN SL 0.4 MG/TAB TAB SL PRN (21:49)
[2020-02-18] MEDS ORDERED: GLUCAGON FOR INJ 1 MG VIAL SQ PRN (21:49)
[2020-02-18] MEDS ORDERED: POTASSIUM CHLORIDE CRTAB 20 MEQ TABCR PO STA (21:59)
[2020-02-18] MEDS ORDERED: INFLUENZA VACCINE HIGH DOSE 65+ 0.7 ML SYR IM ONE (22:10)
[2020-02-18] MEDS ORDERED: INFLUENZA ADMINISTRATION CHARGE ONE (22:10)
[2020-02-18] MEDS ORDERED: MAGNESIUM SULFATE / D5W 1 GM/100 ML BAG IV SCH (22:15)
[2020-02-18] MEDS ORDERED: PATIENT'S HEIGHT AND/OR WEIGHT NEEDED SCH (22:15)
[2020-02-18] MEDS: FERROUS SULFATE 325 MG TAB PO SCH (22:54)
[2020-02-18] MEDS: INSULIN ASPART 100 UNITS/ML 3 ML PEN SC SCH (23:04)
[2020-02-18] MEDS: INSULIN GLARGINE SOLOSTAR 100 UNITS/ML 3 ML PEN SC SCH (23:05)
[2020-02-18] MEDS ORDERED: LACTATED RINGER'S 1,000 ML IV ONE (23:23)
[2020-02-18 23:40] LABS: Thyroid Stimulating Hormone 6.1 uIu/ml (0.300-4.500)
[2020-02-19] MEDS: LEVOTHYROXINE SODIUM 50 MCG TABLET PO SCH (06:29)
[2020-02-19 07:07] LABS: Basophils # (auto) 0.01 K/uL (0-0.2); Basophils % (auto) 0.2 %; Eosinophils # (auto) 0.02 K/uL (0-0.5); Eosinophils % (auto) 0.4 %; Hematocrit (blood only) 29.4 % (37-47); Hemoglobin 9.4 g/dL (12.0-16.0); Immature Granulocytes # (auto) 0.01 K/uL (0.00-0.02); Immature Granulocytes % (auto) 0.2 %; Lymphocytes # (auto) 0.82 K/uL (1.2-3.4); Lymphocytes % (auto) 17.1 %; Mean Corpuscular Volume 93.9 fL (80-100); Mean Platelet Volume 10.8 fL (7.4-10.4); Monocytes # (auto) 0.41 K/uL (0.11-0.59); Monocytes % (auto) 8.5 %; Neutrophils # (auto) 3.53 K/uL (1.4-6.5); Neutrophils % (auto) 73.6 %; Platelet Count 184 K/uL (130-400); RDW Coefficient of Variation 13.8 % (11.5-14.5); RDW Standard Deviation 47.3 fL (36.4-46.3); Red Blood Count 3.13 M/uL (4.2-5.4)
[2020-02-19 07:46] LABS: BUN Creatinine Ratio 15.5 (10-20); Calcium 8.1 mg/dl (8.5-10.1); Creatinine Clr Calc Pharmacy 31.1 ml/min; Est GFR (African American) 39.4; Magnesium 2.1 mg/dl (1.8-2.4)
[2020-02-19] MEDS: INSULIN ASPART 100 UNITS/ML 3 ML PEN SC SCH ×4 (08:09→20:53)
[2020-02-19] MEDS: CITALOPRAM 40 MG TAB PO SCH (08:48)
[2020-02-19] MEDS: FERROUS SULFATE 325 MG TAB PO SCH ×2 (08:48→20:53)
[2020-02-19] MEDS: PANTOprazole 40 MG TAB PO SCH (08:48)
[2020-02-19] MEDS: MULTIVITAMIN CHEWABLE TAB PO SCH (08:48)
[2020-02-19 09:19] LABS: Potassium 4.6 mmol/L (3.5-5.1)
--- NOTE | 2020-02-19 10:36 | Orthopedic Consultation ---
Date of Consultation February 19, 2020 Assessment & Plan (1) Closed fracture of left hip: Patient will require a left trochanteric femoral nail. Patient was currently on Plavix and Eliquis at home and has been held. Mildly increased creatinine and we will need to wait approximately 48 hours to do the surgery secondary to these medications. Cardiology consult placed. Plan for OR on 02/20/2020 if cleared by cardiology and medicine service. History of Present Illness Reason for Consultation: Left intertrochanteric hip fracture Attending Physician: Leslye Conley MD History of Present Illness Patient is a pleasant 79-year-old white female who states that she was moving some bottled water from one room to another prior to her admission. She states that she had taken 1 load of bottles into the other room without incident. She returned to the room and picked up several more bottles and that she was walking into the other room, she fell down. He does not know how she fell down and it happened so fast that she is unsure of what really happened. She denies loss of consciousness at this time. He states she had immediate pain in her left hip and groin and was unable to ambulate. She denies hitting her head. She was brought to the emergency room where she was seen by the staff. X-rays were taken and was found that she had an intertrochanteric hip fracture of the left hip. Currently she is pleasant and cooperative and comfortable. No new complaints since being admitted. Allergies Allergy/AdvReac Type Severity Reaction Status Date / Time adhesive Allergy Unknown ADHESIVE Verified 02/18/20 18:51 TAPE Home Medications Medication Instructions Recorded Confirmed Type Flintstones Multivitamin 1 tab PO QAM 12/06/17 02/18/20 History Lantus Solostar U-100 Insulin 16 unit SUBCUT QAM 12/06/17 02/18/20 History metoprolol succinate 37.5 mg PO QAM 12/06/17 02/18/20 History albuterol sulfate 2 puff INHALATION Q4H PRN 11/08/18 02/18/20 History clopidogrel [Plavix] 75 mg PO QAM 11/08/18 02/18/20 History ferrous sulfate 325 mg PO BID 11/08/18 02/18/20 History citalopram 40 mg PO QAM 03/13/19 02/18/20 History levothyroxine 50 mcg PO QAM 03/13/19 02/18/20 History pantoprazole [Protonix] 40 mg PO QAM 03/13/19 02/18/20 History digoxin 125 mcg PO 5XWK 10/10/19 02/18/20 History furosemide 20 mg PO QAM 10/10/19 02/18/20 History apixaban [Eliquis] 5 mg PO BID 02/18/20 02/18/20 History cyanocobalamin (vitamin B-12) 1,000 mcg IM MONTHLY 02/18/20 02/18/20 History nitroglycerin 0.4 mg SUBLINGUAL DIRECTED PRN 02/18/20 02/18/20 History Patient History Medical History Aortic root dilatation 4.4 cm on echo 01/2019 Asthma Atrial fibrillation Bifascicular block CAD (coronary artery disease) "1995 - PTCA and stenting of RCA 07/2011 - atherectomy and stenting RCA 12/2011- AZALIA to the mid LAD 2016-Cobra stent to mid LAD 2017-AZALIA to ostial diagonal Depression DM type 2 (diabetes mellitus, type 2) Dyslipidemia Hypothyroidism HOMERO (iron deficiency anemia) Macular degeneration MDS (myelodysplastic syndrome) Mild aortic stenosis Pacemaker Sinus node dysfunction Surgical History History of angioplasty History of arthroscopy of knee History of arthroscopy of shoulder History of cholecystectomy History of gastric bypass History of incisional hernia repair History of partial hysterectomy History of tonsillectomy Family History Father Colorectal cancer Sister Lung cancer Diabetes Brother Diabetes Mother Diabetes Social History Smoking Status: Never smoker Second Hand Exposure: No; Do You Dip or Chew Tobacco: No; Tobacco Cessation Education Requested by Patient: No Hx Alcohol Use: No Hx Substance Use: No Preferred Language: Ecuadorean Communication Ability: Effective Visual Impairment: No Limitations Hearing Ability: Normal Installation Superintendent Required: No Beliefs That Will Affect Care: None marital status: / Current Living Situation: Family Current Living Situation Comment: Pt lives with her son, [id number], daughter, son-in-law, & 2 children current occupational status: retired How many Children do You have: 3 Other Information That Helps Us Care for You: No Feels Safe at Home: Yes Safety Concerns: Feels Safe At This Time Assistive Devices: Cane Review of Systems Review of Systems: All systems reviewed & are unremarkable except as noted in HPI & below Physical Exam Physical Exam: Patient is currently lying in bed. She is awake and alert and oriented x3. No acute distress. Pleasant and cooperative. Daniella focusing on her left lower extremity, it is shortened and externally rotated compared to the right. She is nontender at the left ankle and has good range of motion. Left knee is nontender and limited range of motion due to hip fracture currently. No attempts were made to move the left hip secondary to fracture. She has no overt areas of ecchymosis or abrasions over the left lateral hip. Left lateral hip is tender on palpation. Right lower extremity appears unaffected and is non tender at the right hip knee and ankle with range of motion intact. Upper extremities are unaffected at this time and are nontender at the shoulders elbows and wrists with range of motion within normal limits. She denies any cervical neck pain, thoracic or lumbar pain. There is no gross motor or sensory loss seen at this time. Distal pulses are equal bilaterally of the upper lower extremities. Results & Data ([facility]) Vital Signs (Past 12 Hours) Vital Signs Temp Pulse Pulse Pulse Resp BP Pulse Ox 02/19/20 10:27 105/64 02/19/20 08:52 36.5 C 61 81/47 L 98 02/19/20 07:00 63 02/19/20 04:11 36.8 C 60 18 88/51 L 96 02/19/20 01:56 76 90/58 L 02/18/20 23:20 36.5 C 71 18 85/50 L 93 02/18/20 22:31 68 87/46 L Laboratory Results Laboratory Results WBC 4.80 K/uL (4.8-10.8) 02/19/20 06:30 RBC 3.13 M/uL (4.2-5.4) L 02/19/20 06:30 Hgb 9.4 g/dL (12.0-16.0) L 02/19/20 06:30 Hct 29.4 % (37-47) L 02/19/20 06:30 MCV 93.9 fL (80-100) 02/19/20 06:30 MCH 30.0 pg (25-34) 02/19/20 06:30 MCHC 32.0 g/dL (32-36) 02/19/20 06:30 RDW Std Deviation 47.3 fL (36.4-46.3) H 02/19/20 06:30 RDW Coeff of Gaston 13.8 % (11.5-14.5) 02/19/20 06:30 Plt Count 184 K/uL (130-400) 02/19/20 06:30 MPV 10.8 fL (7.4-10.4) H 02/19/20 06:30 Immature Gran % (Auto) 0.2 % 02/19/20 06:30 Neut % (Auto) 73.6 % 02/19/20 06:30 Lymph % (Auto) 17.1 % 02/19/20 06:30 [place] % (Auto) 8.5 % 02/19/20 06:30 Eos % (Auto) 0.4 % 02/19/20 06:30 Baso % (Auto) 0.2 % 02/19/20 06:30 Neut # (Auto) 3.53 K/uL (1.4-6.5) 02/19/20 06:30 Lymph # (Auto) 0.82 K/uL (1.2-3.4) L 02/19/20 06:30 [place] # (Auto) 0.41 K/uL (0.11-0.59) 02/19/20 06:30 Eos # (Auto) 0.02 K/uL (0-0.5) 02/19/20 06:30 Baso # (Auto) 0.01 K/uL (0-0.2) 02/19/20 06:30 Immature Gran # (Auto) 0.01 K/uL (0.00-0.02) 02/19/20 06:30 PT 11.5 Seconds (9.0-12.0) 02/18/20 16:35 INR 1.1 (0.9-1.1) 02/18/20 16:35 APTT 25.0 Seconds (21.0-31.0) 02/18/20 16:35 PTT Ratio 0.9 02/18/20 16:35 Sodium 141 mmol/L (136-145) 02/19/20 06:30 Potassium 4.6 mmol/L (3.5-5.1) D 02/19/20 06:30 Chloride 107 mmol/L (98-107) 02/19/20 06:30 Carbon Dioxide 32 mmol/L (21-32) 02/19/20 06:30 Anion Gap 2.0 (3-11) L 02/19/20 06:30 BUN 22 mg/dl (7-18) H 02/19/20 06:30 Creatinine 1.44 mg/dl (0.6-1.2) H 02/19/20 06:30 Est Cr Clr Drug Dosing 31.1 ml/min 02/19/20 06:30 Est GFR ( Amer) 39.4 02/19/20 06:30 Est GFR (Non-Af Amer) 34.0 02/19/20 06:30 BUN/Creatinine Ratio 15.5 (10-20) 02/19/20 06:30 Glucose 125 mg/dl (70-99) H 02/19/20 06:30 POC Glucose 131 mg/dl (70-99) H 02/19/20 07:22 Lactate 0.9 mmol/L (0.4-2.0) 02/18/20 20:20 Calcium 8.1 mg/dl (8.5-10.1) L 02/19/20 06:30 Magnesium 2.1 mg/dl (1.8-2.4) 02/19/20 06:30 Total Bilirubin 0.4 mg/dl (0.2-1) 02/18/20 16:35 AST 18 U/L (15-37) 02/18/20 16:35 ALT 13 U/L (12-78) 02/18/20 16:35 Alkaline Phosphatase 86 U/L (45-117) 02/18/20 16:35 Troponin I 0.016 ng/ml (0-0.045) 02/18/20 20:20 Total Protein 6.2 gm/dl (6.4-8.2) L 02/18/20 16:35 Albumin 3.1 gm/dl (3.4-5.0) L 02/18/20 20:20 Globulin 3.1 gm/dl (2.5-4.0) 02/18/20 16:35 Albumin/Globulin Ratio 1.0 (0.9-2) 02/18/20 16:35 TSH 6.100 uIu/ml (0.300-4.500) H 02/18/20 20:20 Urine Color Yellow 02/18/20 16:50 Urine Appearance Clear (Clear) 02/18/20 16:50 Urine pH 7.0 (4.5-7.5) 02/18/20 16:50 Ur Specific [place] 1.016 (1.000-1.030) 02/18/20 16:50 Urine Protein Negative (Negative) 02/18/20 16:50 Urine Glucose (UA) Negative (Negative) 02/18/20 16:50 Urine Ketones Negative (Negative) 02/18/20 16:50 Urine Blood Trace (Negative) H 02/18/20 16:50 Urine Nitrite Negative (Negative) 02/18/20 16:50 Urine Bilirubin Negative (Negative) 02/18/20 16:50 Urine Urobilinogen Negative (Negative) 02/18/20 16:50 Ur Leukocyte Esterase Trace (Negative) H 02/18/20 16:50 Urine WBC (Auto) 1-5 /hpf (0-5) 02/18/20 16:50 Urine RBC (Auto) 5-10 /hpf (0-4) H 02/18/20 16:50 U Hyaline Cast (Auto) 1-5 /lpf (0-5) 02/18/20 16:50 U Epithel Cells (Auto) 10-20 /lpf (0-5) H 02/18/20 16:50 Urine Bacteria (Auto) Negative (Negative) 02/18/20 16:50 Digoxin 0.3 ng/ml (0.8-2.0) L 02/18/20 20:20 SARS-CoV-2, RNA, NAAT NEGATIVE (NEGATIVE) 02/18/20 16:35 SARS-CoV-2 Ag (Rapid) Negative (Negative) 02/18/20 16:35 Blood Type A Negative 02/18/20 16:35 Antibody Screen POSITIVE A 02/18/20 16:35 Antibody Identification Anti-D 02/18/20 16:35 (1) Closed fracture of left hip Encounter type: initial encounter Qualified Code(s): S72.002A - Fracture of unspecified part of neck of left femur, initial encounter for closed fracture
--- NOTE | 2020-02-19 10:43 | Electrocardiogram Report ---
Test Reason : Blood Pressure : / mmHG Vent. Rate : 071 BPM Atrial Rate : 283 BPM P-R Int : 000 ms QRS Dur : 132 ms QT Int : 484 ms P-R-T Axes : 049 -71 251 degrees QTc Int : 525 ms Poor data quality, interpretation may be adversely affected Probable Atrial flutter with variable A-V block Left axis deviation Right bundle branch block T wave abnormality, consider inferolateral ischemia Abnormal ECG When compared with ECG of 13-OCT-2019 07:03, Atrial flutter has replaced Electronic ventricular pacemaker Confirmed by Nick Prieto ([id number]) on 02/19/2020 10:43:34 AM Referred By: REFERRED SELF Confirmed By:Nick Prieto
--- NOTE | 2020-02-19 10:47 | Cardiology Consultation ---
Date of Consultation February 19, 2020 Assessment & Plan (1) Closed fracture of left hip: (2) Fall: (3) Hypotension: (4) Mitral stenosis: (5) Pacemaker: (6) CAD (coronary artery disease): (7) Mild aortic stenosis: (8) Atrial fibrillation: (9) SSS (sick sinus syndrome): 79-year-old female status post mechanical fall with resultant closed left hip fracture. History of complex cardiac disease with multiple coronary artery interventions, persistent atrial fibrillation on chronic Eliquis anticoagulation, sick sinus syndrome status post permanent pacemaker placement, mitral stenosis, aortic stenosis, pulmonary hypertension and mild ischemic cardiomyopathy. Now relatively hypotensive with 2 g drop of her hemoglobin status post admission, was on Plavix and full dose Eliquis as an outpatient, both held at the time of admission. I am concerned that she is hemorrhaging into her hip space and believe the most prudent course of action to optimize her at this time would be to give her 1 unit of packed red blood cells. Her blood pressure will then continue to be followed very closely. She is not any antihypertensives at this time. Given her history of complex coronary artery disease I will start aspirin 81 mg daily at this time given the fact that her Plavix has been held In terms of her preop risk assessment she was counseled that I place her as a high risk for any adverse perioperative cardiovascular event with the risk being approximately greater than 5%. She was further counseled that no further cardiac testing or intervention would further lower that risk. She states that she understands, she is accepting of this risk and would wish to proceed with the surgery. Given this, I see no contraindication from a cardiac standpoint to proceed with surgery. History of Present Illness Reason for Consultation: Preop risk assessment Requesting Physician: Dr. Shaffer Attending Physician: Leslye Conley MD History of Present Illness It was my pleasure to see Mrs. Palomo in cardiac consultation today February 19, 2020. She is a very pleasant 79-year-old woman who routinely follows with Dr. Pichardo and Gamaliel Matthews of our cardiology practice for history of complex cardiovascular disease. She [facility]2020 after reports of a mechanical fall. Patient states that she was carrying water bottles when she seemed to trip and she then fell onto her left side. She is unsure if she lost consciousness but does state that the fall was mechanical in nature. She describes significant left hip pain after the fall along with distal sternal discomfort as well. She states that the chest discomfort was a result of landing on the water bottles when she fell. Prior to this event she states that she has been in her normal state of health. She notes that she is quite significantly short of breath at baseline without any recent worsening. She denies any chest pain, palpitations, lightheadedness, dizziness or syncope. She has been taking her medications as directed without issue. Past medical history as per most recent outpatient cardiology note: 1. Atherosclerotic coronary artery disease status post prior coronary interventions including PTCA and stenting of the right coronary artery in 1995, repeat coronary interventions in July of 2011 receiving atherectomy and stenting of the right coronary artery, and separate procedure with a drug- eluting stent to the mid left anterior descending, December 2011. 2. Stable class I-II angina pectoris. 3. Preserved LV systolic function with chronic diastolic dysfunction. 4. Mild aortic stenosis with mild aortic root dilatation/ mild mitral stenosis 5. Hypertension. 6. Hyperlipidemia. 7. Myelodysplastic syndrome with chronic iron deficiency anemia 8. Cardiac catheterization at [facility] November 20, 2016 high-grade mid left anterior descending stenosis, technically difficult procedure. S/P PCI with Cobra stent to the mid LAD stenosis with occlusion of small diseased diagonal branch[place] [facility] [place] 9. Postprocedural sinus arrest with extended pause and subsequent dual-chamber pacemaker insertion November 21, [address] BOYCE [id number] 10.Status post coronary angiography and subsequent coronary intervention on 12/31/2017, receiving a drug-eluting stent to 80% narrowing of an ostial diagonal lesion, for persistent cardiac symptoms, abnormal stress testing. 11. Persistent atrial fibrillation 12. Transient pericardial effusion February 2019 Allergies Allergy/AdvReac Type Severity Reaction Status Date / Time adhesive Allergy Unknown ADHESIVE Verified 02/18/20 18:51 TAPE Home Medications Medication Instructions Recorded Confirmed Type Flintstones Multivitamin 1 tab PO QAM 12/06/17 02/18/20 History Lantus Solostar U-100 Insulin 16 unit SUBCUT QAM 12/06/17 02/18/20 History metoprolol succinate 37.5 mg PO QAM 12/06/17 02/18/20 History albuterol sulfate 2 puff INHALATION Q4H PRN 11/08/18 02/18/20 History clopidogrel [Plavix] 75 mg PO QAM 11/08/18 02/18/20 History ferrous sulfate 325 mg PO BID 11/08/18 02/18/20 History citalopram 40 mg PO QAM 03/13/19 02/18/20 History levothyroxine 50 mcg PO QAM 03/13/19 02/18/20 History pantoprazole [Protonix] 40 mg PO QAM 03/13/19 02/18/20 History digoxin 125 mcg PO 5XWK 10/10/19 02/18/20 History furosemide 20 mg PO QAM 10/10/19 02/18/20 History apixaban [Eliquis] 5 mg PO BID 02/18/20 02/18/20 History cyanocobalamin (vitamin B-12) 1,000 mcg IM MONTHLY 02/18/20 02/18/20 History nitroglycerin 0.4 mg SUBLINGUAL DIRECTED PRN 02/18/20 02/18/20 History Patient History Medical History (Updated 02/19/20 @ 12:37 by Monty Thomas DO) Aortic root dilatation 4.4 cm on echo 01/2019 Asthma Atrial fibrillation Bifascicular block CAD (coronary artery disease) "1995 - PTCA and stenting of RCA 07/2011 - atherectomy and stenting RCA 12/2011- AZALIA to the mid LAD 2016-Cobra stent to mid LAD 2017-AZALIA to ostial diagonal Depression DM type 2 (diabetes mellitus, type 2) Dyslipidemia Hypothyroidism HOMERO (iron deficiency anemia) Macular degeneration MDS (myelodysplastic syndrome) Mild aortic stenosis Pacemaker Sinus node dysfunction Surgical History History of angioplasty History of arthroscopy of knee History of arthroscopy of shoulder History of cholecystectomy History of gastric bypass History of incisional hernia repair History of partial hysterectomy History of tonsillectomy Family History Father Colorectal cancer Sister Lung cancer Diabetes Brother Diabetes Mother Diabetes Social History Smoking Status: Never smoker Second Hand Exposure: No; Do You Dip or Chew Tobacco: No; Tobacco Cessation Education Requested by Patient: No Hx Alcohol Use: No Hx Substance Use: No Preferred Language: [place] Communication Ability: Effective Visual Impairment: No Limitations Hearing Ability: Normal 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 No acute distress. HEENT: Normocephalic, atraumatic. Pupils equal, round and reactive to light and accommodation. Extraocular muscles are intact. Anicteric sclera. Moist mucous membranes. Neck: No JVD. No bruit. Cardiovascular: Regular. Positive S-4. Normal S-1 and S-2. No S-3. 3/6 mid to late systolic ejection murmur, greatest at the right sternal border, second intercostal space with radiation to the bilateral carotids. No rubs. Pulmonary: Clear to auscultation bilaterally. No rales, rhonchi, or wheezing. Abdomen: Bowel sounds x 4, soft. No rebound, guarding or tenderness. No organomegaly. Extremities: No clubbing, cyanosis or edema. +2 pedal pulses bilaterally. Skin: Warm and dry. Results & Data ([facility]) Vital Signs (Past 12 Hours) Vital Signs Temp Pulse Pulse Pulse Resp BP Pulse Ox 02/19/20 10:44 37.0 C 68 15 91/57 L 98 02/19/20 10:27 105/64 02/19/20 08:52 36.5 C 61 81/47 L 98 02/19/20 07:00 63 02/19/20 04:11 36.8 C 60 18 88/51 L 96 02/19/20 01:56 76 90/58 L 02/18/20 23:20 36.5 C 71 18 85/50 L 93 (1) Closed fracture of left hip Encounter type: initial encounter Qualified Code(s): S72.002A - Fracture of unspecified part of neck of left femur, initial encounter for closed fracture (2) Fall Encounter type: initial encounter Qualified Code(s): W19.XXXA - Unspecified fall, initial encounter (3) CAD (coronary artery disease) Coronary Disease-Associated Artery/Lesion type: [place] artery [place] vs. transplanted heart: [place] heart Associated angina: without angina Qualified Code(s): I25.10 - Atherosclerotic heart disease of [place] coronary artery without angina pectoris
--- NOTE | 2020-02-19 10:48 | XRay Report ---
XR femur LT 2V routine CLINICAL HISTORY: fall, left hip fracture COMPARISON: Left hip radiographs February 18, 2020. FINDINGS: Note is again made of a acute displaced intertrochanteric fracture of the left femur. Less er trochanter is displaced, as before. Alignment is similar to exam of February 18, 2020. Left knee ar throplasty is noted. There is no periprosthetic fracture. There is no left knee joint effusion. Vascu lar calcification is incidentally noted. IMPRESSION: Acute moderately displaced intertrochanteric fracture of the left femur. ACT 112: Negative or not required by law. Electronically signed by: Osorio Cristobal M.D. 02/19/2020 10:47 AM
[2020-02-19] MEDS ORDERED: SODIUM CHLORIDE 0.9% 250 ML IV PRN (12:21)
[2020-02-19] MEDS ORDERED: ONDANSETRON INJ 2 MG/ML 2 ML VIAL ONE (16:15)
--- NOTE | 2020-02-19 16:29 | Hospitalist Progress Note ---
Date of Service February 19, 2020 Assessment & Plan (1) Closed fracture of left hip: Present on admission with left hip pain s/p mechanical fall Xray of the hip showed Intertrochanteric left hip fracture. Femur xray showed acute moderately displaced intertrochanteric fracture of the left femur. received toradol and morphine on admission Ortho on board plan to perform left trochanteric femoral nail Cardiology on board for surgical clearance As per cardiology, her preop risk assessment place her at high risk for any adverse perioperative cardiovascular event with the risk being approximately greater than 5%. ECHO showed left ventricular wall motion abnormality. Grade 3 diastolic dys function. EF 65 to 70% No further cardiac testing or intervention would further lower that risk as per cardiology Pt understands the risks of the surgery such as bleeding, infection, blot clot, heart attack and event . She would wish to proceed with the surgery. No contraindication from a cardiac standpoint to proceed with surgery. Will hold Eliquis for 48hr and plavix on hold Will make NPO after midnight Hypotension Might be related to hypovolemia vs opioid Received IVF and currently receiving 1 unit PRBC Most recent BP 128/73 Continue to hold lasix Will consider to resume metoprolol Anemia Hgb 11.5 on admission, then dropped to 9.5 No hematoma noted in the tight area Will transfuse 1 unit PRBC Continue monitor CBC Mitral stenosis Aortic Stenosis Will monitor closely while getting IVF and blood product Stable SSS (sick sinus syndrom S/P Pacemaker stable CAD (coronary artery disease) Plavix on hold due to anticipate surgery Will consider to add aspirin if hgb stable Will resume metoprolol Atrial fibrillation HR increased to 130 during blood transfusion EKG showed Atrial flutter Will resume digoxin 125mcg for 5x weeks Will resume metoprolol in am DVT px Eliquis on hold CODE status Full code Disposition Patient son requesting updates for providers. Mr. Kevan Palomo, contact #[phone]. Admission and Anticipated Discharge Date Admission Date: February 18, 2020 Subjective Pt was seen and examined for follow up of hip fracture. Lying in bed with no distress Pt said that she does not have any pain when she stays still, but whenever she moves she does have tenderness in her left hip Nurse just called and said that pt developed nausea and HR increased in the 130 midway in the blood transfusion Denies any chest pain, palpitation, dizziness and SOB Review of Systems Review of Systems: All systems reviewed & are unremarkable except as noted in Subjective Physical Exam Physical Exam: General- No acute distress Head- atraumatic Eyes- PERRL, EOMI, ENT- oropharynx clear Neck- supple, no JVD Lungs- clear to auscultation Heart- regular rhythm; +systolic murmur Abdomen- normal bowel sounds, soft, nontender Extremities- no calf tenderness, Left hip pain with movement Neuro- alert, oriented x 3; PERRL, EOMI; no facial palsy; no dysarthria Skin- warm & dry Results & Data Results & Data ([facility]) Vital Signs (Past 12 Hours) Vital Signs Temp Pulse Pulse Resp BP BP Pulse Ox 02/19/20 16:12 37.1 C 138 H 18 164/77 H 100 02/19/20 15:40 37.5 C 112/71 02/19/20 15:00 69 02/19/20 14:56 37.3 C 70 14 104/65 99 02/19/20 14:45 37.5 C 70 18 112/71 98 02/19/20 14:26 37.1 C 69 14 117/72 98 02/19/20 14:11 37.0 C 70 14 111/62 97 02/19/20 13:52 37.1 C 73 100/63 98 02/19/20 12:13 36.5 C 61 85/57 L 95 02/19/20 10:44 37.0 C 68 15 91/57 L 98 02/19/20 10:27 105/64 02/19/20 08:52 36.5 C 61 81/47 L 98 02/19/20 07:00 63 (1) Closed fracture of left hip Encounter type: initial encounter Qualified Code(s): S72.002A - Fracture of unspecified part of neck of left femur, initial encounter for closed fracture
[2020-02-19] MEDS ORDERED: METOPROLOL SUCC 25MG EXT REL TAB PO SCH (16:30)
[2020-02-19] MEDS: METOPROLOL SUCC 25MG EXT REL TAB PO SCH (17:30)
[2020-02-19] MEDS ORDERED: ACETAMINOPHEN 1,000 MG/100 ML VIAL IV ONE (18:00)
[2020-02-19] MEDS: INSULIN GLARGINE SOLOSTAR 100 UNITS/ML 3 ML PEN SC SCH (20:53)
[2020-02-19] MEDS: PROMETHAZINE HCL 6.25 MG in SODIUM CHLORIDE 0.9% 50 ML IV PRN (20:53)
[2020-02-20] MEDS: LEVOTHYROXINE SODIUM 50 MCG TABLET PO SCH (05:35)
[2020-02-20] MEDS: INSULIN ASPART 100 UNITS/ML 3 ML PEN SC SCH ×3 (05:40→21:25)
[2020-02-20] MEDS ORDERED: BUPIVACAINE 0.5 % 5 MG/1 ML PF 10ML VIAL ONE (06:44)
[2020-02-20 07:38] LABS: Hematocrit (blood only) 30.9 % (37-47); Mean Corpuscular Hemoglobin 29.7 pg (25-34); Mean Corpuscular Hgb Conc 32.4 g/dL (32-36); Mean Corpuscular Volume 91.7 fL (80-100); Mean Platelet Volume 10.7 fL (7.4-10.4); Platelet Count 145 K/uL (130-400); RDW Coefficient of Variation 14.3 % (11.5-14.5); RDW Standard Deviation 48.1 fL (36.4-46.3); Red Blood Count 3.37 M/uL (4.2-5.4); White Blood Count 4.64 K/uL (4.8-10.8)
[2020-02-20 07:55] LABS: BUN Creatinine Ratio 19.8 (10-20); Calcium 8.5 mg/dl (8.5-10.1); Creatinine Clr Calc Pharmacy 38.9 ml/min; Est GFR (African American) 50.6; Est GFR (Non-African American) 43.7; Potassium 4.4 mmol/L (3.5-5.1)
[2020-02-20] MEDS: MULTIVITAMIN CHEWABLE TAB PO SCH (08:44)
[2020-02-20] MEDS: PANTOprazole 40 MG TAB PO SCH (08:44)
[2020-02-20] MEDS: DIGOXIN 0.125 MG TAB PO SCH (08:44)
[2020-02-20] MEDS: CITALOPRAM 40 MG TAB PO SCH (08:44)
[2020-02-20] MEDS: FERROUS SULFATE 325 MG TAB PO SCH ×2 (08:44→21:19)
[2020-02-20] MEDS ORDERED: METOPROLOL SUCC 25MG EXT REL TAB PO ONE (09:00)
--- NOTE | 2020-02-20 09:10 | Electrocardiogram Report ---
Test Reason : Blood Pressure : / mmHG Vent. Rate : 079 BPM Atrial Rate : 286 BPM P-R Int : 000 ms QRS Dur : 122 ms QT Int : 384 ms P-R-T Axes : 087 -81 264 degrees QTc Int : 440 ms Probable Atrial flutter with variable A-V block Left axis deviation Right bundle branch block T wave abnormality, consider inferior ischemia Abnormal ECG When compared with ECG of 18-FEB-2020 16:39, Nonspecific T wave abnormality has replaced inverted T waves in Lateral leads QT has shortened Confirmed by Nick Prieto ([id number]) on 02/20/2020 9:09:50 AM Referred By: REFERRED SELF Confirmed By:Nick Prieto
--- NOTE | 2020-02-20 12:01 | Cardiology Progress Note ---
Date of Service February 20, 2020 Assessment & Plan (1) Closed fracture of left hip: (2) Fall: (3) Hypotension: (4) Mitral stenosis: (5) Pacemaker: (6) CAD (coronary artery disease): (7) Mild aortic stenosis: (8) Atrial fibrillation: (9) SSS (sick sinus syndrome): 79-year-old female status post mechanical fall with resultant closed left hip fracture. History of complex cardiac disease with multiple coronary artery interventions, persistent atrial fibrillation on chronic Eliquis anticoagulation, sick sinus syndrome status post permanent pacemaker placement, mitral stenosis, aortic stenosis, pulmonary hypertension and mild ischemic cardiomyopathy. Has responded well to transfusion. No longer hypotensive nor prerenal azotemia. Does not examine his volume overloaded at this time either. Given her history of complex coronary artery disease I will start aspirin 81 mg daily at this time given the fact that her Plavix has been held In terms of her preop risk assessment she was counseled that I place her as a high risk for any adverse perioperative cardiovascular event with the risk being approximately greater than 5%. She was further counseled that no further cardiac testing or intervention would further lower that risk. She states that she understands, she is accepting of this risk and would wish to proceed with the surgery. Given this, I see no contraindication from a cardiac standpoint to proceed with surgery. Admission and Anticipated Discharge Date Admission Date: February 18, 2020 Subjective Patient seen and examined, chart reviewed. States that she is feeling relatively well today just tired and rundown, anxious for surgery. Denies any cardiac complaints of chest pain, shortness of breath, palpitations, lightheadedness, dizziness or syncope. Telemetry reviewed: Atrial flutter with variable block, rate controlled, occasional ventricular pacing Review of Systems Review of Systems: All systems reviewed & are unremarkable except as noted in HPI & below Physical Exam Physical Exam: General: Awake, alert and oriented x 3. No acute distress. HEENT: Normocephalic, atraumatic. Pupils equal, round and reactive to light and accommodation. Extraocular muscles are intact. Anicteric sclera. Moist mucous membranes. Neck: No JVD. No bruit. Cardiovascular: Regular. Positive S-4. Normal S-1 and S-2. No S-3. 3/6 mid to late systolic ejection murmur, greatest at the right sternal border, second intercostal space with radiation to the bilateral carotids. No rubs. Pulmonary: Clear to auscultation bilaterally. No rales, rhonchi, or wheezing. Abdomen: Bowel sounds x 4, soft. No rebound, guarding or tenderness. No organomegaly. Extremities: No clubbing, cyanosis or edema. +2 pedal pulses bilaterally. Skin: Warm and dry. Results & Data ([facility]) Vital Signs (Past 12 Hours) Vital Signs Temp Pulse Pulse Resp BP Pulse Ox 02/20/20 07:06 36.7 C 69 19 114/65 99 02/20/20 07:00 71 02/20/20 03:19 36.8 C 70 18 127/70 96 (1) Closed fracture of left hip Encounter type: initial encounter Qualified Code(s): S72.002A - Fracture of unspecified part of neck of left femur, initial encounter for closed fracture (2) Fall Encounter type: initial encounter Qualified Code(s): W19.XXXA - Unspecified fall, initial encounter (3) CAD (coronary artery disease) Coronary Disease-Associated Artery/Lesion type: [place] artery [place] vs. transplanted heart: [place] heart Associated angina: without angina Qualified Code(s): I25.10 - Atherosclerotic heart disease of [place] coronary artery without angina pectoris
[2020-02-20] MEDS ORDERED: fentaNYL citrate 100 MCG/2 ML VIAL ONE (13:17)
[2020-02-20] MEDS ORDERED: PHENYLEPHRINE 100MCG/ML 5ML SYR ONE ×2 (13:17→16:19)
[2020-02-20] MEDS ORDERED: LIDOCAINE HCL 2% 2 ML VIAL/AMP(20MG/ML) INFIL ONE (13:17)
[2020-02-20] MEDS ORDERED: PROPOFOL IV EMULSION 10 MG/ML 20 ML VIAL IV ONE (13:17)
[2020-02-20] MEDS ORDERED: ePHEDrine sulfate 50 MG/ML SYR ONE (13:17)
--- NOTE | 2020-02-20 14:15 | Anesthesiology Consultation ---
Date of Service February 20, 2020 Assessment & Plan Chart Review Chart Review: Acceptable Risk for Surgery and Patient NOT seen in Pre Admission Testing Consults Requested none ASA ASA4 Proposed Anesthesia Anesthesia Type: General Anesthesia Line Insertion: Arterial line History Surgery Operation Date: 02/20/20 13:00 Proposed Procedures p Trochanteric Nail Left - Romaine R DO Lisa Height/Weight Height: 5 ft 3 in Weight: 84.6 kg Allergies Allergy/AdvReac Type Severity Reaction Status Date / Time adhesive Allergy Unknown ADHESIVE Verified 02/18/20 18:51 TAPE Medications Home Medications Medication Instructions Recorded Confirmed Last Taken Flintstones Multivitamin 1 tab PO QAM 12/06/17 02/18/20 02/18/20 Lantus Solostar U-100 Insulin 16 unit SUBCUT QAM 12/06/17 02/18/20 02/18/20 metoprolol succinate 37.5 mg PO QAM 12/06/17 02/18/20 02/18/20 albuterol sulfate 2 puff INHALATION Q4H PRN 11/08/18 02/18/20 11/08/18 08:30 clopidogrel [Plavix] 75 mg PO QAM 11/08/18 02/18/20 02/18/20 ferrous sulfate 325 mg PO BID 11/08/18 02/18/20 03/13/19 citalopram 40 mg PO QAM 03/13/19 02/18/20 02/18/20 levothyroxine 50 mcg PO QAM 03/13/19 02/18/20 02/18/20 pantoprazole [Protonix] 40 mg PO QAM 03/13/19 02/18/20 02/18/20 digoxin 125 mcg PO 5XWK 10/10/19 02/18/20 02/17/20 furosemide 20 mg PO QAM 10/10/19 02/18/20 02/18/20 apixaban [Eliquis] 5 mg PO BID 02/18/20 02/18/20 Unknown cyanocobalamin (vitamin B-12) 1,000 mcg IM MONTHLY 02/18/20 02/18/20 02/14/20 nitroglycerin 0.4 mg SUBLINGUAL DIRECTED PRN 02/18/20 02/18/20 Unknown Active Medications Generic Name Dose Route Start Last Admin Trade Name Freq PRN Reason Stop Dose Admin Citalopram Hydrobromide 40 mg 02/19/20 09:00 02/20/20 08:44 Citalopram 40 Mg Tab PO 03/20/20 08:59 Not Given QAM [facility] Digoxin 0.125 mg 02/20/20 09:00 02/20/20 08:44 Digoxin 0.125 Mg Tab PO 03/21/20 08:59 Not Given [id number] SYED Ferrous Sulfate 325 mg 02/18/20 21:49 02/20/20 08:44 Ferrous Sulfate 325 Mg Tab PO 03/19/20 21:48 Not Given BID SYED Promethazine HCl 6.25 mg/ 50.25 mls @ 201 mls/hr 02/18/20 21:49 02/19/20 21:09 Sodium Chloride IV 03/19/20 21:48 Infused Q6H PRN Infusion Nausea And Vomiting Insulin Aspart 0 units 02/18/20 21:49 02/20/20 12:47 Insulin Aspart 100 Units/Ml 3 Ml Pen SC 03/19/20 21:48 Not Given ACHS [facility] Insulin Glargine 5 units 02/18/20 21:49 02/19/20 20:53 Insulin Glargine Solostar 100 Units/Ml 3 Ml Pen SC 03/19/20 21:48 5 units HS SYED Administration Levothyroxine Sodium 50 mcg 02/19/20 06:30 02/20/20 05:35 Levothyroxine Sodium 50 Mcg Tablet PO 03/20/20 06:29 50 mcg DAILYBB SYED Administration Metoprolol Succinate 37.5 mg 02/19/20 16:30 02/19/20 17:30 Metoprolol Succ 25mg Ext Rel Tab PO 03/20/20 16:29 Not Given QAM [facility] Multivitamins/Folic Acid/Vitamin C 1 tab 02/19/20 09:00 02/20/20 08:44 Multivitamin Chewable Tab PO 03/20/20 08:59 Not Given QAM [facility] Pantoprazole Sodium 40 mg 02/19/20 09:00 02/20/20 08:44 Pantoprazole 40 Mg Tab PO 03/20/20 08:59 Not Given QAM [facility] Tramadol HCl 25 - 50 mg 02/18/20 21:49 02/19/20 20:53 Tramadol Hcl 50 Mg Tablet PO 01/04/21 21:48 25 mg Q4H PRN Administration Pain Past Medical History Medical History Aortic root dilatation 4.4 cm on echo 01/2019 Asthma Atrial fibrillation Bifascicular block CAD (coronary artery disease) "1995 - PTCA and stenting of RCA 07/2011 - atherectomy and stenting RCA 12/2011- AZALIA to the mid LAD 2016-Cobra stent to mid LAD 2017-AZALIA to ostial diagonal Depression DM type 2 (diabetes mellitus, type 2) Dyslipidemia Hypothyroidism HOMERO (iron deficiency anemia) Macular degeneration MDS (myelodysplastic syndrome) Mild aortic stenosis Pacemaker Sinus node dysfunction Exercise / Class Metabolic Activity IV < 2 Limit ADL/Bedbound Past Family History Family History Father Colorectal cancer Sister Lung cancer Diabetes Brother Diabetes Mother Diabetes Past Surgical History Surgical History History of angioplasty History of arthroscopy of knee History of arthroscopy of shoulder History of cholecystectomy History of gastric bypass History of incisional hernia repair History of partial hysterectomy History of tonsillectomy Past Anesthesia History No Hx of Anesthesia Complications and No Family Hx of Anesthesia Complications History of PONV No Hx of PONV and No Hx of Motion Sickness Social History Smoking Status: Never smoker Do You Dip or Chew Tobacco: No Hx Alcohol Use: No Alcohol type: beer alcohol intake frequency: holidays/special occasions only Hx Substance Use: No Physical Exam Vital Signs Last Vital Signs Temp 36.8 C 02/20/20 14:06 Pulse 71 02/20/20 14:06 Resp 20 02/20/20 14:06 BP 144/72 H 02/20/20 14:06 Pulse Ox 99 02/20/20 14:06 Testing Laboratory Results 02/20/20 07:08 02/20/20 07:08 PT 11.5 Seconds (9.0-12.0) 02/18/20 16:35 INR 1.1 (0.9-1.1) 02/18/20 16:35 APTT 25.0 Seconds (21.0-31.0) 02/18/20 16:35 Urine Color Yellow 02/18/20 16:50 Urine Appearance Clear (Clear) 02/18/20 16:50 Urine pH 7.0 (4.5-7.5) 02/18/20 16:50 Ur Specific [place] 1.016 (1.000-1.030) 02/18/20 16:50 Urine Protein Negative (Negative) 02/18/20 16:50 Urine Glucose (UA) Negative (Negative) 02/18/20 16:50 Urine Ketones Negative (Negative) 02/18/20 16:50 Urine Nitrite Negative (Negative) 02/18/20 16:50 Ur Leukocyte Esterase Trace (Negative) H 02/18/20 16:50 Urine WBC (Auto) 1-5 /hpf (0-5) 02/18/20 16:50 Urine RBC (Auto) 5-10 /hpf (0-4) H 02/18/20 16:50 U Hyaline Cast (Auto) 1-5 /lpf (0-5) 02/18/20 16:50 U Epithel Cells (Auto) 10-20 /lpf (0-5) H 02/18/20 16:50 Urine Bacteria (Auto) Negative (Negative) 02/18/20 16:50 Blood Type A Negative 02/18/20 16:35 Antibody Screen POSITIVE A 02/18/20 16:35 02/18/20 16:50 Urine Culture - Final Urine,Indwelling Cath No growth - less than 1,000 colonies/mL. 02/20/20 02/20/20 11:59 05:29 POC Glucose 91 119 H Electrocardiogram Date: 02/19/20 Findings: + RBBB probable A Flutter at 77 w/ variable AV block;LAD;RBBB;T wave abnormality Chest X-Ray Date: 02/18/20 Findings: + NAD, + atherosclerosis of thoracic aorta (w/ calcifications) and + other (left subclavian dual - chamber pacemaker) Echocardiogram Date: 02/19/20 LV Function: normal RWMA: + none Other Findings: + atrial enlargement (severe LAE), + LVH and + diastolic dysfunction (grade 3) Valvular Disease: + (mild), + MS (moderate) and + pertinent finding (pulmonart HTN-39 Torr)
[2020-02-20] MEDS ORDERED: ceFAZolin 2,000 MG/15 ML IV PUSH IV ONE (14:52)
--- NOTE | 2020-02-20 14:53 | History & Physical Bridge Note ---
Date of Service February 20, 2020 History & Physical Bridge Note I have examined the patient, reviewed the History & Physical and in the interval since the performance of the History & Physical I have noted the following changes of clinical significance: no changes noted
--- NOTE | 2020-02-20 14:54 | Orthopedic Progress Note ---
Date of Service February 20, 2020 Assessment & Plan (1) Closed fracture of left hip: The patient is a 79yo female with displaced left intertrochanteric hip fracture with subtrochanteric tension sustained after a fall from standing height. The patient was medically stabilized on 02/20/2020. I indicated the patient for left hip cephalomedullary nail. The patient and family was informed of the risks and benefits of surgery, which include but not limited to infection, bleeding, blood clots, damage to nerves, vessels, bone and soft tissue, dislocation, leg length discrepancy, malunion, nonunion, failure of the implants, need for additional surgery and . The patient and family dixie ectively chose to proceed with surgical intervention and informed consent was obtained. Admission and Anticipated Discharge Date Admission Date: February 18, 2020 Subjective Patient seen in preoperative holding, comfortable, pain well controlled, medically optimized for surgery. Review of Systems Review of Systems: All systems reviewed & are unremarkable except as noted in HPI & below Constitutional: as per Subjective / HPI Physical Exam Physical Exam: LLE NVSI +EHL/FHL/TA/GS SILT grossly, +2 DP pulse, compartments soft NT, \skin overlying left hip intact, left lower extremity shortened and externally rotated Constitutional: WD/WN, vitals as above Results & Data ([facility]) Vital Signs (Past 12 Hours) Vital Signs Temp Pulse Pulse Pulse Resp BP Pulse Ox 02/20/20 14:06 36.8 C 71 20 144/72 H 99 02/20/20 12:01 37.0 C 71 19 117/73 97 02/20/20 07:06 36.7 C 69 19 114/65 99 02/20/20 07:00 71 02/20/20 03:19 36.8 C 70 18 127/70 96 (1) Closed fracture of left hip Encounter type: initial encounter Qualified Code(s): S72.002A - Fracture of unspecified part of neck of left femur, initial encounter for closed fracture
[2020-02-20] MEDS ORDERED: BUPIVACAINE/EPINEPHRINE 0.5% MPF 1:200,000 30 ML VIAL ONE (15:03)
[2020-02-20] MEDS ORDERED: GLYCOPYRROLATE 0.2 MG/ML VIAL ONE (15:27)
[2020-02-20] MEDS ORDERED: ROCURONIUM BROMIDE 10 MG/ML 5 ML VIAL IV ONE (15:27)
[2020-02-20] MEDS ORDERED: NEOSTIGMINE METHYLSULFATE 5 MG/5 ML SYR ONE (15:27)
[2020-02-20] MEDS ORDERED: ETOMIDATE 2 MG/ML 20 ML VIAL IV ONE (15:27)
[2020-02-20] MEDS ORDERED: ONDANSETRON INJ 2 MG/ML 2 ML VIAL ONE (16:04)
[2020-02-20] MEDS ORDERED: ALBUMIN HUMAN 5% 12.5 GM/250 ML VIAL IV ONE (16:47)
[2020-02-20] MEDS ORDERED: PHENYLEPHRINE HCL 10 MG/ML VIAL ONE (16:54)
--- NOTE | 2020-02-20 17:20 | Post Operative Brief Note ---
Immediate Post Op Note v1 Date of Surgery February 20, 2020 Pre & Post Diagnosis Operation Date: 02/20/20 13:00 Pre-Op Diagnosis: Left Hip Fracture Post-Op Diagnosis: Left Hip Fracture I identified the patient and participated in the time-out.: Yes Procedure Operation Date: 02/20/20 13:00 Actual Procedures p Trochanteric Nail Left(Left) - Romaine Gonzalez DO Surgeon Romaine Gonzalez DO Railroad Signal Operator none Estimated Blood Loss 70 Findings Consistent with Post-Op Diagnosis Fluids 700 cc LR 250 cc Albumin Specimens none Anesthesia Type General Complications none Disposition Disposition: Recovery Room Overlapping Procedure I was present for: the critical portions of procedure. I was immediately available: during the entire case. Back up surgeon: was not required during procedure.
--- NOTE | 2020-02-20 17:22 | Fluoroscopy Report ---
FL femur LT 2V CLINICAL HISTORY: LEFT TROCHNAIL COMPARISON STUDY: None. FLUOROSCOPY TIME: 3 minutes and 49 seconds. FINDINGS: Status post internal fixation of a left femoral fracture with an intramedullary misael and int erlocking femoral neck pin. The hardware appears intact. Alignment is near-anatomic. IMPRESSION: Fluoroscopy provided for internal fixation of a left femoral fracture. ACT 112: Negative or not required by law. Electronically signed by: Carmine Adan M.D. 02/20/2020 5:21 PM
--- NOTE | 2020-02-20 17:22 | Operative Report ---
Post Operative Report Pre & Post Diagnosis Operation Date: 02/20/20 13:00 Pre-Op Diagnosis: Left Hip Fracture Post-Op Diagnosis: Left Hip Fracture I identified the patient and participated in the time-out.: Yes Procedure Operation Date: 02/20/20 13:00 Actual Procedures p Trochanteric Nail Left(Left) - Romaine Gonzalez DO Surgeon Romaine Gonzalez DO Mortgage Specialist none Estimated Blood Loss 70 Findings Consistent with Post-Op Diagnosis Fluids 700 cc LR 250 cc Albumin Specimens none Anesthesia Type General Complications none Disposition Disposition: Recovery Room Indications The patient is a 79yo female with displaced left intertrochanteric hip fracture with subtrochanteric tension sustained after a fall from standing height. The patient was medically stabilized on 02/20/2020. I indicated the patient for left hip cephalomedullary nail. The patient and family was informed of the risks and benefits of surgery, which include but not limited to infection, bleeding, blood clots, damage to nerves, vessels, bone and soft tissue, dislocation, leg length discrepancy, malunion, nonunion, failure of the implants, need for additional surgery and . The patient and family collectively chose to proceed with surgical intervention and informed consent was obtained. Description of Procedure Following induction of adequate general anesthesia, the patient was placed on the fracture table. The right leg was placed in the well leg arellano and the left leg in the traction leg arellano. All bony prominences were protected. Ut ilizing c-arm fluoroscopy closed reduction of the fracture was performed utilizing tension and internal/external rotation. Once satisfied with fracture reduction the left hip and thigh was prepped and draped in the usual sterile manner. A time out was performed, the patient identified, site annabella confirmed and appropriate antibiotics given. The incision was made from the tip of the greater trochanter proximally. Subcutaneous tissue was sharply dissected to the tip of the greater trochanter, electrocautery used for hemostasis. Under fluoroscopic guidance the drill tipped guidewire was inserted at the tip of the greater trochanter and advanced into the intramedullary canal. Utilizing the intramedullary drill the guidewire was overdrilled with tissue protector attached. All instruments were removed. Next a long ball-tipped guidewire was passed through the proximal opening intramedullary beyond the fracture site to the proximal pole of the patella. Guidewire position was confirmed utilizing C- arm fluoroscopy. Guidewire was measured at this time to determine length of the nail at 380 mm. An x-ray approximately was performed to verify ruler was found to bone. Next utilizing flexible reamers sequential reaming was performed in .5mm increments, a final 12.5 mm reamer was passed the length of the canal. Care was taken to protect soft tissue proximally. A 11 by 380 mm long Synthes TFN was inserted and impacted into position and confirmed by c-arm fluoroscopy. Next the aiming arm was attached to the insertion handle. A incision was made and carried down through subcutaneous tissues to bone. The blade guide sleeve was inserted and secured down to bone. The guide wire was passed across the fracture site to the tip of the femoral head, position was confirmed in the AP and lateral planes utilizing c-arm fluoroscopy. The guide pin was measured and the 11.0mm drill bit passed over the guide pin to open lateral cortex followed by a 6.0mm/10.0mm cannulated reamer to a depth of 95 mm. Next the helical blade was inserted and locked proximally. Next position the C arm in anticipation for perfect [place] technique, care was taken to insure sterilility was maintained. Distally a stab incision was made in the skin and carried down to bone. Utilizing the radiolucent drill with a 4.0mm drill bit, both cortices were drilled through the proximal static hole. The nail was locked distally using a single 4.9mm x 46 mm locking bolt. Next utilizing perfect [place] technique a distal stab incision was made overlying the dynamic hole. Blunt dissection was carried down to bone. Utilizing the radiolucent drill with a 4.0 mm drill bit both cortices were drilled through the distal aspect of the dynamic hole. A single 4.9 mm x 48 mm locking bolt was placed through the dynamic hole. The aiming guide was removed at this time and final radiographs were obtained utilizing c-arm fluoroscopy to confirm overall position and fracture reduction. Incisions were irrigated with copious amounts of sterile saline solution. Subcutaneous tissue were injected utilizing .5% marcaine with epi. Deep closure was performed using #1 Vicryl followed by 2-0 Vicryl for subcutaneous tissues and rodrigo in the skin. Sterile dressings were applied which included Xeroform, 4 x 4's, ABDs and Tegaderm. The patient tolerated the procedure well and was transported to the PACU in stable condition. I attest to the content of the Intraoperative Record and any orders documented therein. Any exceptions are noted below.
[2020-02-20] MEDS ORDERED: ACETAMINOPHEN 1000 MG/100 ML IV IV ONE (17:33)
[2020-02-20] MEDS ORDERED: HYDROmorphone INJ 1 MG/ML SYRINGE ONE (17:33)
[2020-02-20] MEDS ORDERED: LABETALOL HCL IV 5 MG/ML 20ML IV PRN (17:35)
[2020-02-20] MEDS ORDERED: FLUMAZENIL 0.1 MG/1 ML 10 ML VIAL IV PRN (17:35)
[2020-02-20] MEDS ORDERED: ACETAMINOPHEN 1,000 MG/100 ML VIAL IV STA (17:35)
[2020-02-20] MEDS ORDERED: ePHEDrine sulfate 50 MG/ML AMP IV PRN (17:35)
[2020-02-20] MEDS ORDERED: ONDANSETRON INJ 2 MG/ML 2 ML VIAL IV PRN (17:35)
[2020-02-20] MEDS ORDERED: HYDROmorphone INJ 1 MG/ML SYRINGE IV PRN (17:35)
[2020-02-20] MEDS ORDERED: ATROPINE SULFATE 0.1 MG/ML 10ML SYR IV PRN (17:35)
[2020-02-20] MEDS ORDERED: PROMETHAZINE HCL 12.5 MG in SODIUM CHLORIDE 0.9% 50 ML IV PRN (17:35)
[2020-02-20] MEDS ORDERED: NALOXONE HCL 0.4 MG/1 ML VIAL/CARP IV PRN (17:35)
[2020-02-20 18:03] LABS: Hemoglobin 7.8 g/dL (12.0-16.0)
[2020-02-20] MEDS ORDERED: SODIUM CHLORIDE 0.9% 250 ML IV PRN ×2 (18:24→18:33)
[2020-02-20] MEDS ORDERED: CALCIUM CHLORIDE 10% 10 ML SYR IV ONE (19:10)
[2020-02-20] MEDS ORDERED: CALCIUM CHLORIDE 10% 1,000 MG in SODIUM CHLORIDE 0.9% 50 ML IV STA (19:16)
[2020-02-20] MEDS: PROMETHAZINE HCL 6.25 MG in SODIUM CHLORIDE 0.9% 50 ML IV PRN (19:27)
--- NOTE | 2020-02-20 19:44 | Anesthesiology Progress Note ---
Date of Service February 20, 2020 Anesthesia Post Procedure Vital Signs Vital Signs: Temp Pulse Pulse Pulse Pulse Resp BP 02/20/20 19:35 82 16 126/48 L 02/20/20 19:25 82 18 128/45 L 02/20/20 19:20 36.6 C 83 16 126/45 L 02/20/20 19:10 80 16 116/42 L 02/20/20 19:00 83 16 90/36 L 02/20/20 18:50 82 16 92/38 L 02/20/20 18:40 81 16 94/45 L 02/20/20 18:30 81 18 89/36 L 02/20/20 18:20 82 18 77/30 L 02/20/20 18:10 92 H 18 134/56 L 02/20/20 18:00 83 20 78/28 L 02/20/20 17:55 85 20 02/20/20 17:50 88 24 02/20/20 17:45 94 H 22 109/38 L 02/20/20 17:40 86 20 65/27 L 02/20/20 17:35 85 18 129/50 L 02/20/20 17:29 36.7 C 100 H 18 02/20/20 14:06 36.8 C 71 20 02/20/20 12:01 37.0 C 71 19 02/20/20 07:06 36.7 C 69 19 02/20/20 07:00 71 02/20/20 03:19 36.8 C 70 18 02/19/20 22:50 36.7 C 68 19 BP Pulse Ox 02/20/20 19:35 100 02/20/20 19:25 100 02/20/20 19:20 100 02/20/20 19:10 100 02/20/20 19:00 76/43 L 100 02/20/20 18:50 100 02/20/20 18:40 100 02/20/20 18:30 99 02/20/20 18:20 71/40 L 99 02/20/20 18:10 112/66 97 02/20/20 18:00 74/42 L 99 02/20/20 17:55 85/44 L 98 02/20/20 17:50 92/56 L 98 02/20/20 17:45 108/67 100 02/20/20 17:40 66/40 L 99 02/20/20 17:35 116/65 99 02/20/20 17:29 101/79 100 02/20/20 14:06 144/72 H 99 02/20/20 12:01 117/73 97 02/20/20 07:06 114/65 99 02/20/20 07:00 02/20/20 03:19 127/70 96 02/19/20 22:50 100/63 97 Pain Intensity Left Hip: Pain Intensity: 5 Transfer of Care Handoff Completed per policy Notes Mental Status: alert / awake / arousable and participated in evaluation Patient Amnestic to Procedure: Yes Nausea / Vomiting: improving with treatment Pain: adequately controlled and improving with treatment Airway Patency, RR, SpO2: see Notes below BP & HR: see Notes below Hydration State: see Notes below Anesthetic Complications: no major complications apparent Notes: Pt w/ multiple comorbidities,was on eliquis for AFib/AFlutter,prented for left hip troch nail. Pt Hgb was < 8; pt loss > 1 unit blood intraop. Pt was hypotensive and two units PRBC's were transfused w/ resumption of normotension and improvement of vital signs. I have discussed transfer of pt. to ICU w/ Dr Jaimes. He concurs.
--- NOTE | 2020-02-20 19:59 | Orthopedic Progress Note ---
Date of Service February 20, 2020 Assessment & Plan (1) Closed fracture of left hip: s/p L cephalomedullary nail -ancef x 24 -DVT ppx: SCDs, TEDs, 81mg ASA, restart eliquis when medically stable. -Toe touch WB LLE -PT/OT -PO XR demonstrates a well aligned well fixed CMN, reduction of IT fracture. -am labs -Monitor hematoma, ice, elevation LLE, compression, trend labs. Admission and Anticipated Discharge Date Admission Date: February 18, 2020 Subjective Post Operative Progress Note Patient seen in PACU with anesthesia, intermittent hypotension and nausea. C oncerns over surgical site bleeding, I was asked to re-evaluate the patient. Review of Systems Review of Systems: All systems reviewed & are unremarkable except as noted in HPI & below Constitutional: as per Subjective / HPI Physical Exam Physical Exam: LLE NVSI +EHL/FHL/TA/GS SILT grossly, +2 DP pulse, compartments soft and compressive, dressing cdi. On re-exam patient's thigh unchanged size, bounding dorsalis pedis pulse, good color and warm to touch. Small superficial hematoma developing at the proximal surgical incision. Constitutional: WD/WN, vitals as above Results & Data ([facility]) Vital Signs (Past 12 Hours) Vital Signs Temp Pulse Pulse Pulse Resp BP BP 02/20/20 19:35 82 16 126/48 L 02/20/20 19:25 82 18 128/45 L 02/20/20 19:20 36.6 C 83 16 126/45 L 02/20/20 19:10 80 16 116/42 L 02/20/20 19:00 83 16 90/36 L 76/43 L 02/20/20 18:50 82 16 92/38 L 02/20/20 18:40 81 16 94/45 L 02/20/20 18:30 81 18 89/36 L 02/20/20 18:20 82 18 77/30 L 71/40 L 02/20/20 18:10 92 H 18 134/56 L 112/66 02/20/20 18:00 83 20 78/28 L 74/42 L 02/20/20 17:55 85 20 85/44 L 02/20/20 17:50 88 24 92/56 L 02/20/20 17:45 94 H 22 109/38 L 108/67 02/20/20 17:40 86 20 65/27 L 66/40 L 02/20/20 17:35 85 18 129/50 L 116/65 02/20/20 17:29 36.7 C 100 H 18 101/79 02/20/20 14:06 36.8 C 71 20 144/72 H 02/20/20 12:01 37.0 C 71 19 117/73 Pulse Ox 02/20/20 19:35 100 02/20/20 19:25 100 02/20/20 19:20 100 02/20/20 19:10 100 02/20/20 19:00 100 02/20/20 18:50 100 02/20/20 18:40 100 02/20/20 18:30 99 02/20/20 18:20 99 02/20/20 18:10 97 02/20/20 18:00 99 02/20/20 17:55 98 02/20/20 17:50 98 02/20/20 17:45 100 02/20/20 17:40 99 02/20/20 17:35 99 02/20/20 17:29 100 02/20/20 14:06 99 02/20/20 12:01 97 (1) Closed fracture of left hip Encounter type: initial encounter Qualified Code(s): S72.002A - Fracture of unspecified part of neck of left femur, initial encounter for closed fracture
[2020-02-20] MEDS: SODIUM CHLORIDE 0.9% 1000ML 1,000 ML IV SCH (20:00)
[2020-02-20] MEDS ORDERED: traMADol HCL 50 MG TABLET PO PRN (20:01)
--- NOTE | 2020-02-20 20:16 | Hospitalist Progress Note ---
Date of Service February 20, 2020 Assessment & Plan (1) Closed fracture of left hip: Present on admission with left hip pain s/p mechanical fall Xray of the hip showed Intertrochanteric left hip fracture. Femur xray showed acute moderately displaced intertrochanteric fracture of the left femur. received toradol and morphine on admission Ortho on board plan to perform left trochanteric femoral nail Cardiology on board for surgical clearance As per cardiology, her preop risk assessment place her at high risk for any adverse perioperative cardiovascular event with the risk being approximately greater than 5%. ECHO showed left ventricular wall motion abnormality. Grade 3 diastolic dys function. EF 65 to 70% No further cardiac testing or intervention would further lower that risk as per cardiology Pt understands the risks of the surgery such as bleeding, infection, blot clot, heart attack and event . She would wish to proceed with the surgery. No contraindication from a cardiac standpoint to proceed with surgery. Will hold Eliquis for 48hr and plavix on hold Will make NPO after midnight 02/19 Checked on patient later after coming from OR in the ICU S/P day#0 Trochanteric Nail Left(Left) performed by Dr. Gonzalez Will monitor for hematoma will resume 81mg ASA, maybe restart eliquis when medically stable no sooner than 02/21/20 as per ortho Continue monitor H/H PT/OT eval Toe touch WB LLE Incentive spirometry Pain control fall precaution Hypotension Might be related to hypovolemia vs opioid Received IVF and currently receiving 1 unit PRBC Most recent BP 128/73 Continue to hold lasix Will consider to resume metoprolol Acute blood loss anemia Hgb 11.5 on admission, then dropped to 9.5 received 1 unit PRBC on 02/18 Hgb dropped to 7.8 post op, then received an additional 2 units PRBC Most recent Hgb 9.4 Will monitor H/H and transfused if hgb drops below 9 Mitral stenosis Aortic Stenosis Will monitor closely while getting IVF and blood product Stable SSS (sick sinus syndrom S/P Pacemaker stable CAD (coronary artery disease) Plavix on hold due to anticipate surgery Will consider to add aspirin if hgb stable Will resume metoprolol Atrial fibrillation Atrial Flutter HR increased to 130 during blood transfusion EKG showed Atrial flutter Digoxin and metoprolol resumed Will resume eliquis once bleeding stable as per Ortho DVT px Eliquis on hold/SCDs CODE status Full code Disposition Patient son requesting updates for providers. Mr. Kevan Palomo, contact #[phone]. Admission and Anticipated Discharge Date Admission Date: February 18, 2020 Subjective Pt was seen and examined early this morning before going to OR Pt said that she feels better this morning, but continue to have tenderness when moving her left LE Spoke to daughter in law today and informed her that the surgeon will call later before taking the patient to OR to explain the procedure Denies any chest pain, palpitation, dizziness and SOB Physical Exam Physical Exam: General- No acute distress Head- atraumatic Eyes- PERRL, EOMI, ENT- oropharynx clear Neck- supple, no JVD Lungs- clear to auscultation Heart- regular rhythm; +systolic murmur Abdomen- normal bowel sounds, soft, nontender Extremities- no calf tenderness, Left hip pain with movement Neuro- alert, oriented x 3; PERRL, EOMI; no facial palsy; no dysarthria Skin- warm & dry Results & Data Results & Data ([facility]) Vital Signs (Past 12 Hours) Vital Signs Temp Pulse Pulse Pulse Resp BP BP 02/20/20 19:35 82 16 126/48 L 02/20/20 19:25 82 18 128/45 L 02/20/20 19:20 36.6 C 83 16 126/45 L 02/20/20 19:10 80 16 116/42 L 02/20/20 19:00 83 16 90/36 L 76/43 L 02/20/20 18:50 82 16 92/38 L 02/20/20 18:40 81 16 94/45 L 02/20/20 18:30 81 18 89/36 L 02/20/20 18:20 82 18 77/30 L 71/40 L 02/20/20 18:10 92 H 18 134/56 L 112/66 02/20/20 18:00 83 20 78/28 L 74/42 L 02/20/20 17:55 85 20 85/44 L 02/20/20 17:50 88 24 92/56 L 02/20/20 17:45 94 H 22 109/38 L 108/67 02/20/20 17:40 86 20 65/27 L 66/40 L 02/20/20 17:35 85 18 129/50 L 116/65 02/20/20 17:29 36.7 C 100 H 18 101/79 02/20/20 14:06 36.8 C 71 20 144/72 H 02/20/20 12:01 37.0 C 71 19 117/73 Pulse Ox 02/20/20 19:35 100 02/20/20 19:25 100 02/20/20 19:20 100 02/20/20 19:10 100 02/20/20 19:00 100 02/20/20 18:50 100 02/20/20 18:40 100 02/20/20 18:30 99 02/20/20 18:20 99 02/20/20 18:10 97 02/20/20 18:00 99 02/20/20 17:55 98 02/20/20 17:50 98 02/20/20 17:45 100 02/20/20 17:40 99 02/20/20 17:35 99 02/20/20 17:29 100 02/20/20 14:06 99 02/20/20 12:01 97 (1) Closed fracture of left hip Encounter type: initial encounter Qualified Code(s): S72.002A - Fracture of unspecified part of neck of left femur, initial encounter for closed fracture
--- NOTE | 2020-02-20 20:19 | Critical Care Consultation ---
Date of Consultation February 20, 2020 Assessment & Plan (1) Acute blood loss anemia: Reason Critically Ill: 79-year-old female presents status post left cephalic medullary nail for left closed hip fracture repair with postop hematoma and hypotension requiring blood transfusion. Neuro - [facility] ICU: Negative Pain : Morphine, Ultram Cardiac - Complex cardiac history with multiple stents, diastolic heart failure, atrial fibrillation, SSS s/p pacer -Hold Eliquis and Plavix for now as patient is in the ICU for acute bleed postop -If patient remains hemodynamically stable may continue MTP, Lasix, in the a.m. -Continue digoxin -Hypotension appears to be resolved at this point following 2 units RBC transfusion, was likely related to acute blood loss anemia -Patient does not appear to be actively bleeding and is currently hemodynamically stable -We will continue to monitor in ICU on telemetry and with A-line overnight and suspect patient may downgrade in a.m. if no continued bleeding or acute events overnight Respiratory - Currently maintaining oxygen saturation on nasal cannula, will likely be able to wean to room air as patient arrives with oxygen saturation of 100% -We will continue to monitor with pulse ox GI - Full liquid diet for now Continue PPI RENAL/LYTES - Creatinine within normal limits, trend routine BMPs Monitor electrolytes and replete as indicated - Foleystrict I's and O ENDO - DM type IIsliding scale/basal bolus - ICU hyperglycemic protocol Hypothyroidcontinue Synthroid HEME - Acute blood loss anemiaappears to be stable with repeat hemoglobin 9.7 following 2 units RBCs transfusion and patient currently asymptomatic -Coags pending -Continue ferrous sulfate home med -Trend CBCs and transfuse if indicated ID - No indication for infectious process at this time, continue empiric Ancef postoperatively 24H LINES/IV ACCESS - Peripheral IVs, A-line DVT PROPHYLAXIS - SCDs, holding anticoagulation for now as patient experienced acute postoperative hematoma Orthopatient status post left cephalomedullary nail following closed left hip fracture from fall -Follow-up Ortho recommendations -Swelling at surgical site appears stable, continue to monitor closely Thank you for allowing us to participate in the care of this patient. Please refer to my attending physician's documentation for any further recommendations. (2) SSS (sick sinus syndrome): (3) Hypotension: (4) Closed fracture of left hip: (5) Atrial fibrillation: (6) Hematuria: (7) Mitral stenosis: (8) DVT prophylaxis: (9) Chest pain: (10) Pacemaker: (11) CAD (coronary artery disease): (12) DM type 2 (diabetes mellitus, type 2): (13) Dyslipidemia: (14) MDS (myelodysplastic syndrome): (15) HOMERO (iron deficiency anemia): (16) Aortic root dilatation: (17) Mild aortic stenosis: (18) Fall: (19) Hypovolemic shock: Supervising Physician Co-Signing Physician Notes I have personally evaluated and examined this patient. I agree with assessment and plan of Jason HONEYCUTT. I have seen the patient, she appears to be hemodynamically stable she is receiving blood at this time, anticipate routine postop care pending volume expansion with blood administration. History of Present Illness Attending Physician: Leslye Conley MD History of Present Illness 79-year-old female with who presented on 02/17 with left hip pain following a fall, was found to have left intertrochanteric hip fracture for which she now presents to the ICU postoperatively for trochanteric nail left. Patient has a complex cardiac history with CAD s/p multiple stents, A. fib (on Eliquis), SSS (s/p pacemaker), and diastolic heart failure. Prior to surgery, she was hypote nsive and hemoglobin had dropped from baseline. She was thought to have developed a hematoma at fracture site, and improved after transfusion of RBC. She was evaluated by cardiology and was considered high risk for surgery from a cardiac standpoint for patient consented to proceed with surgical intervention despite risks. Postoperatively patient became hypotensive and there was a significant drop in hemoglobin. She also exhibited swelling in the left lower extremity which was consistent with hematoma. She was transfused with 2 units RBCs and blood pressures improved. She has since been transferred to the ICU for monitoring following development of postoperative hematoma requiring blood transfusions. On arrival to the ICU patient is drowsy and complains of headache and mild nausea for which she has received Phenergan. She currently denies pain at the surgical site. She denies dizziness, syncope, chest pain, shortness of breath, wheezing, palpitations, abdominal pain or cramping. There is obvious swelling to the upper left lower extremity near the area of the surgical site, the tissue remains soft and nontender. Left lower extremity has good color and blood return and palpable pulse. I do not feel that there is concern for compartmental syndrome right now. Patient's vitals appear to be stabilized and she is normotensive, heart rate of 80, with oxygen saturation 100% on nasal cannula. She is not in acute distress. Repeat labs are pending. Given patient's significant past medical history and acuity of recent events, will monitor in ICU overnight to observe for continued bleeding and hemodynamic instability. Allergies Allergy/AdvReac Type Severity Reaction Status Date / Time adhesive Allergy Unknown ADHESIVE Verified 02/18/20 18:51 TAPE Home Medications Medication Instructions Recorded Confirmed Type [place] Multivitamin 1 tab PO QAM 12/06/17 02/18/20 History Lantus Solostar U-100 Insulin 16 unit SUBCUT QAM 12/06/17 02/18/20 History metoprolol succinate 37.5 mg PO QAM 12/06/17 02/18/20 History albuterol sulfate 2 puff INHALATION Q4H PRN 11/08/18 02/18/20 History clopidogrel [Plavix] 75 mg PO QAM 11/08/18 02/18/20 History ferrous sulfate 325 mg PO BID 11/08/18 02/18/20 History citalopram 40 mg PO QAM 03/13/19 02/18/20 History levothyroxine 50 mcg PO QAM 03/13/19 02/18/20 History pantoprazole [Protonix] 40 mg PO QAM 03/13/19 02/18/20 History digoxin 125 mcg PO 5XWK 10/10/19 02/18/20 History furosemide 20 mg PO QAM 10/10/19 02/18/20 History apixaban [Eliquis] 5 mg PO BID 02/18/20 02/18/20 History cyanocobalamin (vitamin B-12) 1,000 mcg IM MONTHLY 02/18/20 02/18/20 History nitroglycerin 0.4 mg SUBLINGUAL DIRECTED PRN 02/18/20 02/18/20 History Patient History Medical History (Updated 02/20/20 @ 21:53 by TANGELA Hodges) Aortic root dilatation 4.4 cm on echo 01/2019 Asthma Atrial fibrillation Bifascicular block CAD (coronary artery disease) "1995 - PTCA and stenting of RCA 07/2011 - atherectomy and stenting RCA 12/2011- AZALIA to the mid LAD 2016-Cobra stent to mid LAD 2018-AZALIA to ostial diagonal Depression DM type 2 (diabetes mellitus, type 2) Dyslipidemia Hypothyroidism HOMERO (iron deficiency anemia) Macular degeneration MDS (myelodysplastic syndrome) Mild aortic stenosis Pacemaker Sinus node dysfunction Surgical History History of angioplasty History of arthroscopy of knee History of arthroscopy of shoulder History of cholecystectomy History of gastric bypass History of incisional hernia repair History of partial hysterectomy History of tonsillectomy Family History Father Colorectal cancer Sister Lung cancer Diabetes Brother Diabetes Mother Diabetes Social History Smoking Status: Never smoker Second Hand Exposure: No; Do You Dip or Chew Tobacco: No; Tobacco Cessation Education Requested by Patient: No Hx Alcohol Use: No Hx Substance Use: No Preferred Language: Gu[place]ian Communication Ability: Effective Visual Impairment: No Limitations Hearing Ability: Normal Shell Molder Required: No Beliefs That Will Affect Care: None marital status: / Current Living Situation: Family Current Living Situation Comment: Pt lives with her son, [id number], daughter, son-in-law, & 2 children current occupational status: retired How many Children do You have: 3 Other Information That Helps Us Care for You: No Feels Safe at Home: Yes Safety Concerns: Feels Safe At This Time Assistive Devices: Cane Review of Systems Review of Systems: All systems reviewed & are unremarkable except as noted in HPI & below Physical Exam Constitutional: comfortable and + lethargic; no acute distress Eyes: PERRL, conjunctivae normal, anicteric sclerae ENMT: external ear and nose normal, oropharynx normal Neck: trachea midline, no thyromegaly Respiratory: normal respiratory effort, lungs clear to auscultation Cardiovascular: RRR, no murmur, no edema Vessels: no JVD Extremities: normal capillary refill; no edema Gastrointestinal (Abdomen): normal bowel sounds, soft, nontender, no hepatosplenomegaly Musculoskeletal: Circumferential swelling of the patient's left thigh and around surgical site at the left hip. Tissue remains soft and nontender. Skin: no rashes, warm and dry Neurologic: PERRL, EOMI, accommodation nl, no face palsy, no dysarthria Psychiatric: Orientation: oriented x 3 Results & Data Results & Data ([facility] [place]) Vital Signs (Past 12 Hours) Vital Signs Temp Pulse Pulse Pulse Resp BP BP 02/20/20 19:35 82 16 126/48 L 02/20/20 19:25 82 18 128/45 L 02/20/20 19:20 36.6 C 83 16 126/45 L 02/20/20 19:10 80 16 116/42 L 02/20/20 19:00 83 16 90/36 L 76/43 L 02/20/20 18:50 82 16 92/38 L 02/20/20 18:40 81 16 94/45 L 02/20/20 18:30 81 18 89/36 L 02/20/20 18:20 82 18 77/30 L 71/40 L 02/20/20 18:10 92 H 18 134/56 L 112/66 02/20/20 18:00 83 20 78/28 L 74/42 L 02/20/20 17:55 85 20 85/44 L 02/20/20 17:50 88 24 92/56 L 02/20/20 17:45 94 H 22 109/38 L 108/67 02/20/20 17:40 86 20 65/27 L 66/40 L 02/20/20 17:35 85 18 129/50 L 116/65 02/20/20 17:29 36.7 C 100 H 18 101/79 02/20/20 14:06 36.8 C 71 20 144/72 H 02/20/20 12:01 37.0 C 71 19 117/73 Pulse Ox 02/20/20 19:35 100 02/20/20 19:25 100 02/20/20 19:20 100 02/20/20 19:10 100 02/20/20 19:00 100 02/20/20 18:50 100 02/20/20 18:40 100 02/20/20 18:30 99 02/20/20 18:20 99 02/20/20 18:10 97 02/20/20 18:00 99 02/20/20 17:55 98 02/20/20 17:50 98 02/20/20 17:45 100 02/20/20 17:40 99 02/20/20 17:35 99 02/20/20 17:29 100 02/20/20 14:06 99 12/07/20 12:01 97 Coding Level of Care Code 67935 Office/OBS Consult Lvl 5 Diagnoses Acute blood loss anemia D62 SSS (sick sinus syndrome) I49.5 Hypotension I95.9 Closed fracture of left hip S72.002A Encounter type: initial encounter Atrial fibrillation I48.91 Hematuria R31.21 Hematuria type: asymptomatic microscopic Mitral stenosis I05.0 DVT prophylaxis Z29.9 Chest pain R07.9 Pacemaker Z95.0 CAD (coronary artery disease) I25.10 Associated angina: without angina Coronary Disease-Associated Artery/Lesion type: [place] artery [place] vs. transplanted heart: [place] heart DM type 2 (diabetes mellitus, type 2) E11.9 Dyslipidemia E78.5 MDS (myelodysplastic syndrome) D46.9 HOMERO (iron deficiency anemia) D50.9 Aortic root dilatation I77.810 Mild aortic stenosis I35.0 Fall W19.XXXA Encounter type: initial encounter Hypovolemic shock R57.1 (1) Hematuria Hematuria type: asymptomatic microscopic Qualified Code(s): R31.21 - Asymptomatic microscopic hematuria (2) CAD (coronary artery disease) Associated angina: without angina Coronary Disease-Associated Artery/Lesion type: [place] artery [place] vs. transplanted heart: [place] heart Qualified Code(s): I25.10 - Atherosclerotic heart disease of [place] coronary artery without angina pectoris (3) Fall Encounter type: initial encounter Qualified Code(s): W19.XXXA - Unspecified fall, initial encounter (4) Closed fracture of left hip Encounter type: initial encounter Qualified Code(s): S72.002A - Fracture of unspecified part of neck of left femur, initial encounter for closed fracture
--- NOTE | 2020-02-20 20:42 | XRay Report ---
XR femur LT 2V routine CLINICAL HISTORY: Post op Left hip long CMN nail COMPARISON STUDY: Left femur 02/19/2020. FINDINGS: Status post internal fixation of a proximal left femoral fracture with intramedullary misael a nd interlocking femoral neck pin. The hardware is intact. There is improved anatomic alignment. No di slocation. Skin rodrigo are in place. Evidence for left total knee arthroplasty. IMPRESSION: Status post internal fixation of a proximal left femoral fracture. There is improved babar tomic alignment. ACT 112: Negative or not required by law. Electronically signed by: Carmine Adan M.D. 02/20/2020 8:41 PM
[2020-02-20] MEDS ORDERED: APIXABAN 5 MG TABLET PO SCH (21:00)
[2020-02-20 21:01] LABS: Hemoglobin 9.7 g/dL (12.0-16.0); Mean Corpuscular Hgb Conc 33.4 g/dL (32-36); Mean Corpuscular Volume 89.8 fL (80-100); Mean Platelet Volume 10.4 fL (7.4-10.4); Platelet Count 132 K/uL (130-400); RDW Coefficient of Variation 14.1 % (11.5-14.5); RDW Standard Deviation 46.8 fL (36.4-46.3); Red Blood Count 3.23 M/uL (4.2-5.4); White Blood Count 8.84 K/uL (4.8-10.8)
[2020-02-20] MEDS: ceFAZolin 2000MG 2,000 MG/15 ML SYR IV SCH (21:20)
[2020-02-20] MEDS: INSULIN GLARGINE SOLOSTAR 100 UNITS/ML 3 ML PEN SC SCH (21:27)
[2020-02-20 21:31] LABS: BUN Creatinine Ratio 23.1 (10-20); Calcium 9.1 mg/dl (8.5-10.1); Creatinine Clr Calc Pharmacy 41.7 ml/min; Est GFR (African American) 55.1; Est GFR (Non-African American) 47.6; Potassium 4.4 mmol/L (3.5-5.1)
[2020-02-20 22:15] LABS: Fibrinogen 310 mg/dl (184-400); INR 1.1 (0.9-1.1)
[2020-02-20] MEDS: ONDANSETRON INJ 2 MG/ML 2 ML VIAL IV PRN (22:52)
[2020-02-21] MEDS: MoRPHine SULFATE 2 MG/ML CARP IV PRN (02:25)
[2020-02-21 04:03] LABS: Hematocrit (blood only) 26.9 % (37-47); Hemoglobin 9.1 g/dL (12.0-16.0); Mean Corpuscular Hemoglobin 29.6 pg (25-34); Mean Corpuscular Hgb Conc 33.8 g/dL (32-36); Mean Corpuscular Volume 87.6 fL (80-100); Platelet Count 143 K/uL (130-400); RDW Coefficient of Variation 14.3 % (11.5-14.5); RDW Standard Deviation 45.7 fL (36.4-46.3); Red Blood Count 3.07 M/uL (4.2-5.4)
[2020-02-21 04:36] LABS: BUN Creatinine Ratio 25.6 (10-20); Calcium 8.1 mg/dl (8.5-10.1); Creatinine Clr Calc Pharmacy 38.7 ml/min; Est GFR (African American) 50.6; Est GFR (Non-African American) 43.7; Magnesium 1.8 mg/dl (1.8-2.4); Potassium 4.7 mmol/L (3.5-5.1)
[2020-02-21 05:33] LABS: Immature Granulocytes # (auto) 0.03 K/uL (0.00-0.02); Immature Granulocytes % (auto) 0.4 %; Lymphocytes # (auto) 0.34 K/uL (1.2-3.4); Lymphocytes % (auto) 4.1 %; Monocytes # (auto) 0.53 K/uL (0.11-0.59); Monocytes % (auto) 6.4 %; Neutrophils % (auto) 89.1 %
[2020-02-21] MEDS: MAGNESIUM SULFATE / D5W 1 GM/100 ML BAG IV SCH ×2 (05:56→08:13)
[2020-02-21] MEDS: ceFAZolin 2000MG 2,000 MG/15 ML SYR IV SCH ×2 (05:56→15:18)
[2020-02-21] MEDS: LEVOTHYROXINE SODIUM 50 MCG TABLET PO SCH (05:56)
--- NOTE | 2020-02-21 07:16 | Orthopedic Progress Note ---
Date of Service February 21, 2020 Assessment & Plan (1) Closed fracture of left hip: s/p L hip cephalomedullary nail POD#1 -ancef x 24 -DVT ppx: SCDs, TEDs, 81mg ASA, restart Eliquis when medically stable. -Toe touch WB LLE -PT/OT -PO XR demonstrates a well aligned well fixed CMN, reduction of IT fracture. -am labs as above, hgb 9.1 -Monitor hematoma, ice, elevation LLE, compression, trend labs. Admission and Anticipated Discharge Date Admission Date: February 18, 2020 Subjective Post Operative Progress Note Patient seen sitting up in bed, comfortable, denies complaints, pain well controlled, no acute issues. Denies F/C/N/V/SOB/CP. Review of Systems Review of Systems: All systems reviewed & are unremarkable except as noted in HPI & below Constitutional: as per Subjective / HPI Physical Exam Physical Exam: LLE NVSI +EHL/FHL/TA/GS SILT grossly, +2 DP pulse, compartments soft NT, dressing cdi. small hematoma proximal incision, unchanged overnight. Constitutional: WD/WN, vitals as above Results & Data ([facility]) Vital Signs (Past 12 Hours) Vital Signs Temp Pulse Pulse Resp BP BP Pulse Ox 02/21/20 06:30 96 H 22 98 02/21/20 06:00 97 H 22 100 02/21/20 05:50 97 H 19 104/65 100 02/21/20 05:00 91 H 23 100 02/21/20 04:50 91 H 22 109/61 98 02/21/20 04:30 96 H 19 99 02/21/20 03:49 94 H 24 100/70 99 02/21/20 03:26 85 22 108/55 L 98 02/21/20 03:00 36.5 C 86 22 98 02/21/20 01:49 99 H 21 106/57 L 98 02/21/20 01:00 84 20 96 02/21/20 00:51 94 H 19 103/50 L 99 02/21/20 00:00 87 25 H 98 02/20/20 23:57 84 02/20/20 23:49 139 H 23 114/83 95 02/20/20 23:20 83 19 98 02/20/20 23:00 83 18 99 12/07/20 22:51 82 19 100 02/20/20 22:50 82 19 105/47 L 99 02/20/20 22:27 86 21 117/85 97 02/20/20 22:00 83 20 99 02/20/20 21:49 83 19 117/85 98 02/20/20 21:30 82 17 97 02/20/20 21:00 80 24 97 02/20/20 20:50 81 19 108/39 L 95 02/20/20 20:00 81 19 100 02/20/20 19:50 36.7 C 93 H 99/56 L 100 02/20/20 19:48 100 02/20/20 19:35 82 16 126/48 L 100 02/20/20 19:25 82 18 128/45 L 100 02/20/20 19:20 36.6 C 83 16 126/45 L 100 Laboratory Results 02/21/20 02/21/20 02/20/20 Range/Units 03:47 03:47 22:30 WBC 8.30 (4.8-10.8) K/uL RBC 3.07 L (4.2-5.4) M/uL Hgb 9.1 L (12.0-16.0) g/dL Hct 26.9 L (37-47) % MCV 87.6 (80-100) fL MCH 29.6 (25-34) pg MCHC 33.8 (32-36) g/dL RDW Std Deviation 45.7 (36.4-46.3) fL RDW Coeff of [place]aston 14.3 (11.5-14.5) % Plt Count 143 (130-400) K/uL MPV 11.0 H (7.4-10.4) fL Immature Gran % (Auto) 0.4 % Neut % (Auto) 89.1 % Lymph % (Auto) 4.1 % Carroll % (Auto) 6.4 % Eos % (Auto) 0.0 % Baso % (Auto) 0.0 % Neut # (Auto) 7.40 H (1.4-6.5) K/uL Lymph # (Auto) 0.34 L (1.2-3.4) K/uL Carroll # (Auto) 0.53 (0.11-0.59) K/uL Eos # (Auto) 0.00 (0-0.5) K/uL Baso # (Auto) 0.00 (0-0.2) K/uL Immature Gran # (Auto) 0.03 H (0.00-0.02) K/uL PT (9.0-12.0) Seconds INR (0.9-1.1) Fibrinogen (184-400) mg/dl Sodium 139 (136-145) mmol/L Potassium 4.7 (3.5-5.1) mmol/L Chloride 108 H (98-107) mmol/L Carbon Dioxide 23 (21-32) mmol/L Anion Gap 8.0 (3-11) BUN 30 H (7-18) mg/dl Creatinine 1.17 (0.6-1.2) mg/dl Est Cr Clr Drug Dosing 38.7 ml/min Est GFR ( Amer) 50.6 Est GFR (Non-Af Amer) 43.7 BUN/Creatinine Ratio 25.6 H (10-20) Glucose 191 H (70-99) mg/dl POC Glucose (70-99) mg/dl Calcium 8.1 L (8.5-10.1) mg/dl Magnesium 1.8 (1.8-2.4) mg/dl Nasal Screen MRSA (PCR) Negative (Negative) Blood Type Antibody Screen Antibody Identification Antibody ID Comment Crossmatch 02/20/20 02/20/20 02/20/20 Range/Units 21:23 20:42 20:42 WBC (4.8-10.8) K/uL RBC (4.2-5.4) M/uL Hgb (12.0-16.0) g/dL Hct (37-47) % MCV (80-100) fL MCH (25-34) pg MCHC (32-36) g/dL RDW Std Deviation (36.4-46.3) fL RDW Coeff of [place] (11.5-14.5) % Plt Count (130-400) K/uL MPV (7.4-10.4) fL Immature Gran % (Auto) % Neut % (Auto) % Lymph % (Auto) % [place] % (Auto) % Eos % (Auto) % Baso % (Auto) % Neut # (Auto) (1.4-6.5) K/uL Lymph # (Auto) (1.2-3.4) K/uL [place] # (Auto) (0.11-0.59) K/uL Eos # (Auto) (0-0.5) K/uL Baso # (Auto) (0-0.2) K/uL Immature Gran # (Auto) (0.00-0.02) K/uL PT 12.0 (9.0-12.0) Seconds INR 1.1 (0.9-1.1) Fibrinogen 310 (184-400) mg/dl Sodium 140 (136-145) mmol/L Potassium 4.4 (3.5-5.1) mmol/L Chloride 109 H (98-107) mmol/L Carbon Dioxide 23 (21-32) mmol/L Anion Gap 8.0 (3-11) BUN 25 H (7-18) mg/dl Creatinine 1.09 (0.6-1.2) mg/dl Est Cr Clr Drug Dosing 41.7 ml/min Est GFR ( Amer) 55.1 Est GFR (Non-Af Amer) 47.6 BUN/Creatinine Ratio 23.1 H (10-20) Glucose 147 H (70-99) mg/dl POC Glucose 145 H (70-99) mg/dl Calcium 9.1 (8.5-10.1) mg/dl Magnesium (1.8-2.4) mg/dl Nasal Screen MRSA (PCR) (Negative) Blood Type Antibody Screen Antibody Identification Antibody ID Comment Crossmatch 02/20/20 02/20/20 02/20/20 Range/Units 20:42 19:35 17:53 WBC 8.84 (4.8-10.8) K/uL RBC 3.23 L (4.2-5.4) M/uL Hgb 9.7 L 9.4 L 7.8 L (12.0-16.0) g/dL Hct 29.0 L 24.0 L (37-47) % MCV 89.8 (80-100) fL MCH 30.0 (25-34) pg MCHC 33.4 (32-36) g/dL RDW Std Deviation 46.8 H (36.4-46.3) fL RDW Coeff of [place] 14.1 (11.5-14.5) % Plt Count 132 (130-400) K/uL MPV 10.4 (7.4-10.4) fL Immature Gran % (Auto) % Neut % (Auto) % Lymph % (Auto) % Carroll % (Auto) % Eos % (Auto) % Baso % (Auto) % Neut # (Auto) (1.4-6.5) K/uL Lymph # (Auto) (1.2-3.4) K/uL [place] # (Auto) (0.11-0.59) K/uL Eos # (Auto) (0-0.5) K/uL Baso # (Auto) (0-0.2) K/uL Immature Gran # (Auto) (0.00-0.02) K/uL PT (9.0-12.0) Seconds INR (0.9-1.1) Fibrinogen (184-400) mg/dl Sodium (136-145) mmol/L Potassium (3.5-5.1) mmol/L Chloride (98-107) mmol/L Carbon Dioxide (21-32) mmol/L Anion Gap (3-11) BUN (7-18) mg/dl Creatinine (0.6-1.2) mg/dl Est Cr Clr Drug Dosing ml/min Est GFR ( Amer) Est GFR (Non-Af Amer) BUN/Creatinine Ratio (10-20) Glucose (70-99) mg/dl POC Glucose (70-99) mg/dl Calcium (8.5-10.1) mg/dl Magnesium (1.8-2.4) mg/dl Nasal Screen MRSA (PCR) (Negative) Blood Type Antibody Screen Antibody Identification Antibody ID Comment Crossmatch 02/20/20 02/20/20 02/20/20 Range/Units 11:59 07:08 07:08 WBC 4.64 L (4.8-10.8) K/uL RBC 3.37 L (4.2-5.4) M/uL Hgb 10.0 L (12.0-16.0) g/dL Hct 30.9 L (37-47) % MCV 91.7 (80-100) fL MCH 29.7 (25-34) pg MCHC 32.4 (32-36) g/dL RDW Std Deviation 48.1 H (36.4-46.3) fL RDW Coeff of [place] 14.3 (11.5-14.5) % Plt Count 145 (130-400) K/uL MPV 10.7 H (7.4-10.4) fL Immature Gran % (Auto) % Neut % (Auto) % Lymph % (Auto) % [place] % (Auto) % Eos % (Auto) % Baso % (Auto) % Neut # (Auto) (1.4-6.5) K/uL Lymph # (Auto) (1.2-3.4) K/uL [place] # (Auto) (0.11-0.59) K/uL Eos # (Auto) (0-0.5) K/uL Baso # (Auto) (0-0.2) K/uL Immature Gran # (Auto) (0.00-0.02) K/uL PT (9.0-12.0) Seconds INR (0.9-1.1) Fibrinogen (184-400) mg/dl Sodium 140 (136-145) mmol/L Potassium 4.4 (3.5-5.1) mmol/L Chloride 108 H (98-107) mmol/L Carbon Dioxide 27 (21-32) mmol/L Anion Gap 6.0 (3-11) BUN 23 H (7-18) mg/dl Creatinine 1.17 (0.6-1.2) mg/dl Est Cr Clr Drug Dosing 38.9 ml/min Est GFR ( Amer) 50.6 Est GFR (Non-Af Amer) 43.7 BUN/Creatinine Ratio 19.8 (10-20) Glucose 93 (70-99) mg/dl POC Glucose 91 (70-99) mg/dl Calcium 8.5 (8.5-10.1) mg/dl Magnesium (1.8-2.4) mg/dl Nasal Screen MRSA (PCR) (Negative) Blood Type Antibody Screen Antibody Identification Antibody ID Comment Crossmatch 02/18/20 Range/Units 16:35 WBC (4.8-10.8) K/uL RBC (4.2-5.4) M/uL Hgb (12.0-16.0) g/dL Hct (37-47) % MCV (80-100) fL MCH (25-34) pg MCHC (32-36) g/dL RDW Std Deviation (36.4-46.3) fL RDW Coeff of [place] (11.5-14.5) % Plt Count (130-400) K/uL MPV (7.4-10.4) fL Immature Gran % (Auto) % Neut % (Auto) % Lymph % (Auto) % [place] % (Auto) % Eos % (Auto) % Baso % (Auto) % Neut # (Auto) (1.4-6.5) K/uL Lymph # (Auto) (1.2-3.4) K/uL [place] # (Auto) (0.11-0.59) K/uL Eos # (Auto) (0-0.5) K/uL Baso # (Auto) (0-0.2) K/uL Immature Gran # (Auto) (0.00-0.02) K/uL PT (9.0-12.0) Seconds INR (0.9-1.1) Fibrinogen (184-400) mg/dl Sodium (136-145) mmol/L Potassium (3.5-5.1) mmol/L Chloride (98-107) mmol/L Carbon Dioxide (21-32) mmol/L Anion Gap (3-11) BUN (7-18) mg/dl Creatinine (0.6-1.2) mg/dl Est Cr Clr Drug Dosing ml/min Est GFR ( Amer) Est GFR (Non-Af Amer) BUN/Creatinine Ratio (10-20) Glucose (70-99) mg/dl POC Glucose (70-99) mg/dl Calcium (8.5-10.1) mg/dl Magnesium (1.8-2.4) mg/dl Nasal Screen MRSA (PCR) (Negative) Blood Type A Negative Antibody Screen POSITIVE A Antibody Identification Anti-D Antibody ID Comment Crossmatch See Detail (1) Closed fracture of left hip Encounter type: initial encounter Qualified Code(s): S72.002A - Fracture of unspecified part of neck of left femur, initial encounter for closed fracture
[2020-02-21] MEDS: ONDANSETRON INJ 2 MG/ML 2 ML VIAL IV PRN (07:21)
[2020-02-21] MEDS: INSULIN ASPART 100 UNITS/ML 3 ML PEN SC SCH ×4 (08:14→21:20)
[2020-02-21] MEDS: FERROUS SULFATE 325 MG TAB PO SCH ×2 (08:15→21:18)
[2020-02-21] MEDS: MULTIVITAMIN CHEWABLE TAB PO SCH (08:15)
[2020-02-21] MEDS: DIGOXIN 0.125 MG TAB PO SCH (08:15)
[2020-02-21] MEDS: PANTOprazole 40 MG TAB PO SCH (08:15)
[2020-02-21] MEDS: CITALOPRAM 40 MG TAB PO SCH (08:16)
[2020-02-21] MEDS: SODIUM CHLORIDE 0.9% 1000ML 1,000 ML IV SCH (08:16)
--- NOTE | 2020-02-21 09:41 | Critical Care Progress Note ---
Date of Service February 21, 2020 Assessment & Plan (1) Acute blood loss anemia: Reason Critically Ill: 79-year-old female presents status post left cephalic medullary nail for left closed hip fracture repair with postop hematoma and hypotension requiring blood transfusion. Neuro - [facility] ICU: Negative Pain : Morphine, Ultram -Pain well controlled Cardiac - Complex cardiac history with multiple stents, diastolic heart failure, atrial fibrillation, SSS s/p pacer -Hold Eliquis and Plavix for now as patient is in the ICU for acute bleed postop -Restart per primary service -Continue digoxin -Hypotension: Resolved -Resume beta-blockade Respiratory - Tolerating room air GI - Continue full liquid diet for now RENAL/LYTES - Discontinue maintenance fluid at this time - Discontinue Chaudhry ENDO - DM type I[place] scale/give 75% of home Lantus dose today Hypothyroidcontinue Synthroid HEME - Acute blood loss anemiapostoperative -Coags pending -Continue ferrous sulfate home med ID - No indication for infectious process at this time, continue empiric Ancef postoperatively 24H LINES/IV ACCESS - Peripheral IVs,: Discontinuing A-line DVT PROPHYLAXIS - SCDs Discussed with Ortho stable for downgrade out of ICU. (2) SSS (sick sinus syndrome): (3) Hypotension: (4) Closed fracture of left hip: (5) Atrial fibrillation: (6) Hematuria: (7) Mitral stenosis: (8) DVT prophylaxis: (9) Chest pain: (10) Pacemaker: (11) CAD (coronary artery disease): (12) DM type 2 (diabetes mellitus, type 2): (13) Dyslipidemia: (14) MDS (myelodysplastic syndrome): (15) HOMERO (iron deficiency anemia): (16) Aortic root dilatation: (17) Mild aortic stenosis: (18) Fall: (19) Hypovolemic shock: Admission and Anticipated Discharge Date Admission Date: February 18, 2020 Subjective Patient complaining of nausea, no abdominal pain, belching, no fevers chills chest pain shortness of breath Review of Systems Review of Systems: As per HPI Physical Exam Physical Exam: General: Alert. nontoxic. Skin: Warm, dry, Head: Atraumatic Ears, nose, mouth and throat: airway patent Cardiovascular: Normal peripheral perfusion Respiratory: no respiratory distress Gastrointestinal: Non distended Musculoskeletal: No deformity, left hip has dressing no shadowing Results & Data Results & Data ([facility]) Vital Signs (Past 12 Hours) Vital Signs Temp Pulse Resp BP Pulse Ox 02/21/20 09:30 95 H 02/21/20 08:50 91 H 20 121/50 L 100 02/21/20 08:15 89 02/21/20 08:00 91 H 121/50 L 02/21/20 07:50 96 H 18 86/59 L 99 02/21/20 06:50 89 20 111/53 L 96 02/21/20 06:30 96 H 22 98 02/21/20 06:00 97 H 22 100 02/21/20 05:50 97 H 19 104/65 100 02/21/20 05:00 91 H 23 100 02/21/20 04:50 91 H 22 109/61 98 02/21/20 04:30 96 H 19 99 02/21/20 03:49 94 H 24 100/70 99 02/21/20 03:26 85 22 108/55 L 98 02/21/20 03:00 36.5 C 86 22 98 02/21/20 01:49 99 H 21 106/57 L 98 02/21/20 01:00 84 20 96 02/21/20 00:51 94 H 19 103/50 L 99 02/21/20 00:00 87 25 H 98 02/20/20 23:57 84 02/20/20 23:49 139 H 23 114/83 95 02/20/20 23:20 83 19 98 02/20/20 23:00 83 18 99 02/20/20 22:51 82 19 100 02/20/20 22:50 82 19 105/47 L 99 02/20/20 22:27 86 21 117/85 97 02/20/20 22:00 83 20 99 02/20/20 21:49 83 19 117/85 98 Laboratory Results 02/21/20 02/21/20 02/21/20 Range/Units 07:26 03:47 03:47 WBC 8.30 (4.8-10.8) K/uL RBC 3.07 L (4.2-5.4) M/uL Hgb 9.1 L (12.0-16.0) g/dL Hct 26.9 L (37-47) % MCV 87.6 (80-100) fL MCH 29.6 (25-34) pg MCHC 33.8 (32-36) g/dL RDW Std Deviation 45.7 (36.4-46.3) fL RDW Coeff of [place]aston 14.3 (11.5-14.5) % Plt Count 143 (130-400) K/uL MPV 11.0 H (7.4-10.4) fL Immature Gran % (Auto) 0.4 % Neut % (Auto) 89.1 % Lymph % (Auto) 4.1 % Cameron % (Auto) 6.4 % Eos % (Auto) 0.0 % Baso % (Auto) 0.0 % Neut # (Auto) 7.40 H (1.4-6.5) K/uL Lymph # (Auto) 0.34 L (1.2-3.4) K/uL Cameron # (Auto) 0.53 (0.11-0.59) K/uL Eos # (Auto) 0.00 (0-0.5) K/uL Baso # (Auto) 0.00 (0-0.2) K/uL Immature Gran # (Auto) 0.03 H (0.00-0.02) K/uL PT (9.0-12.0) Seconds INR (0.9-1.1) Fibrinogen (184-400) mg/dl Sodium 139 (136-145) mmol/L Potassium 4.7 (3.5-5.1) mmol/L Chloride 108 H (98-107) mmol/L Carbon Dioxide 23 (21-32) mmol/L Anion Gap 8.0 (3-11) BUN 30 H (7-18) mg/dl Creatinine 1.17 (0.6-1.2) mg/dl Est Cr Clr Drug Dosing 38.7 ml/min Est GFR ( Amer) 50.6 Est GFR (Non-Af Amer) 43.7 BUN/Creatinine Ratio 25.6 H (10-20) Glucose 191 H (70-99) mg/dl POC Glucose 214 H (70-99) mg/dl Calcium 8.1 L (8.5-10.1) mg/dl Magnesium 1.8 (1.8-2.4) mg/dl Nasal Screen MRSA (PCR) (Negative) Blood Type Antibody Screen Antibody Identification Antibody ID Comment Crossmatch 1202/20/20 02/20/20 Range/Units 22:30 21:23 20:42 WBC (4.8-10.8) K/uL RBC (4.2-5.4) M/uL Hgb (12.0-16.0) g/dL Hct (37-47) % MCV (80-100) fL MCH (25-34) pg MCHC (32-36) g/dL RDW Std Deviation (36.4-46.3) fL RDW Coeff of [place] (11.5-14.5) % Plt Count (130-400) K/uL MPV (7.4-10.4) fL Immature Gran % (Auto) % Neut % (Auto) % Lymph % (Auto) % Cameron % (Auto) % Eos % (Auto) % Baso % (Auto) % Neut # (Auto) (1.4-6.5) K/uL Lymph # (Auto) (1.2-3.4) K/uL Cameron # (Auto) (0.11-0.59) K/uL Eos # (Auto) (0-0.5) K/uL Baso # (Auto) (0-0.2) K/uL Immature Gran # (Auto) (0.00-0.02) K/uL PT (9.0-12.0) Seconds INR (0.9-1.1) Fibrinogen (184-400) mg/dl Sodium 140 (136-145) mmol/L Potassium 4.4 (3.5-5.1) mmol/L Chloride 109 H (98-107) mmol/L Carbon Dioxide 23 (21-32) mmol/L Anion Gap 8.0 (3-11) BUN 25 H (7-18) mg/dl Creatinine 1.09 (0.6-1.2) mg/dl Est Cr Clr Drug Dosing 41.7 ml/min Est GFR ( Amer) 55.1 Est GFR (Non-Af Amer) 47.6 BUN/Creatinine Ratio 23.1 H (10-20) Glucose 147 H (70-99) mg/dl POC Glucose 145 H (70-99) mg/dl Calcium 9.1 (8.5-10.1) mg/dl Magnesium (1.8-2.4) mg/dl Nasal Screen MRSA (PCR) Negative (Negative) Blood Type Antibody Screen Antibody Identification Antibody ID Comment Crossmatch 02/20/20 02/20/20 02/20/20 Range/Units 20:42 20:42 19:35 WBC 8.84 (4.8-10.8) K/uL RBC 3.23 L (4.2-5.4) M/uL Hgb 9.7 L 9.4 L (12.0-16.0) g/dL Hct 29.0 L (37-47) % MCV 89.8 (80-100) fL MCH 30.0 (25-34) pg MCHC 33.4 (32-36) g/dL RDW Std Deviation 46.8 H (36.4-46.3) fL RDW Coeff of [place] 14.1 (11.5-14.5) % Plt Count 132 (130-400) K/uL MPV 10.4 (7.4-10.4) fL Immature Gran % (Auto) % Neut % (Auto) % Lymph % (Auto) % Cameron % (Auto) % Eos % (Auto) % Baso % (Auto) % Neut # (Auto) (1.4-6.5) K/uL Lymph # (Auto) (1.2-3.4) K/uL Cameron # (Auto) (0.11-0.59) K/uL Eos # (Auto) (0-0.5) K/uL Baso # (Auto) (0-0.2) K/uL Immature Gran # (Auto) (0.00-0.02) K/uL PT 12.0 (9.0-12.0) Seconds INR 1.1 (0.9-1.1) Fibrinogen 310 (184-400) mg/dl Sodium (136-145) mmol/L Potassium (3.5-5.1) mmol/L Chloride (98-107) mmol/L Carbon Dioxide (21-32) mmol/L Anion Gap (3-11) BUN (7-18) mg/dl Creatinine (0.6-1.2) mg/dl Est Cr Clr Drug Dosing ml/min Est GFR ( Amer) Est GFR (Non-Af Amer) BUN/Creatinine Ratio (10-20) Glucose (70-99) mg/dl POC Glucose (70-99) mg/dl Calcium (8.5-10.1) mg/dl Magnesium (1.8-2.4) mg/dl Nasal Screen MRSA (PCR) (Negative) Blood Type Antibody Screen Antibody Identification Antibody ID Comment Crossmatch 02/20/20 02/20/20 02/18/20 Range/Units 17:53 11:59 16:35 WBC (4.8-10.8) K/uL RBC (4.2-5.4) M/uL Hgb 7.8 L (12.0-16.0) g/dL Hct 24.0 L (37-47) % MCV (80-100) fL MCH (25-34) pg MCHC (32-36) g/dL RDW Std Deviation (36.4-46.3) fL RDW Coeff of [place] (11.5-14.5) % Plt Count (130-400) K/uL MPV (7.4-10.4) fL Immature Gran % (Auto) % Neut % (Auto) % Lymph % (Auto) % Cameron % (Auto) % Eos % (Auto) % Baso % (Auto) % Neut # (Auto) (1.4-6.5) K/uL Lymph # (Auto) (1.2-3.4) K/uL Cameron # (Auto) (0.11-0.59) K/uL Eos # (Auto) (0-0.5) K/uL Baso # (Auto) (0-0.2) K/uL Immature Gran # (Auto) (0.00-0.02) K/uL PT (9.0-12.0) Seconds INR (0.9-1.1) Fibrinogen (184-400) mg/dl Sodium (136-145) mmol/L Potassium (3.5-5.1) mmol/L Chloride (98-107) mmol/L Carbon Dioxide (21-32) mmol/L Anion Gap (3-11) BUN (7-18) mg/dl Creatinine (0.6-1.2) mg/dl Est Cr Clr Drug Dosing ml/min Est GFR ( Amer) Est GFR (Non-Af Amer) BUN/Creatinine Ratio (10-20) Glucose (70-99) mg/dl POC Glucose 91 (70-99) mg/dl Calcium (8.5-10.1) mg/dl Magnesium (1.8-2.4) mg/dl Nasal Screen MRSA (PCR) (Negative) Blood Type A Negative Antibody Screen POSITIVE A Antibody Identification Anti-D Antibody ID Comment Crossmatch See Detail Coding Level of Care Code 96494 Subseq Hosp Care Lvl 3 Diagnoses Acute blood loss anemia D62 SSS (sick sinus syndrome) I49.5 Hypotension I95.9 Closed fracture of left hip S72.002A Encounter type: initial encounter Atrial fibrillation I48.91 Hematuria R31.21 Hematuria type: asymptomatic microscopic Mitral stenosis I05.0 DVT prophylaxis Z29.9 Chest pain R07.9 Pacemaker Z95.0 CAD (coronary artery disease) I25.10 Coronary Disease-Associated Artery/Lesion type: [place] artery [place] vs. transplanted heart: [place] heart Associated angina: without angina DM type 2 (diabetes mellitus, type 2) E11.9 Dyslipidemia E78.5 MDS (myelodysplastic syndrome) D46.9 HOMERO (iron deficiency anemia) D50.9 Aortic root dilatation I77.810 Mild aortic stenosis I35.0 Fall W19.XXXA Encounter type: initial encounter Hypovolemic shock R57.1 (1) Closed fracture of left hip Encounter type: initial encounter Qualified Code(s): S72.002A - Fracture of unspecified part of neck of left femur, initial encounter for closed fracture (2) Hematuria Hematuria type: asymptomatic microscopic Qualified Code(s): R31.21 - Asymptomatic microscopic hematuria (3) CAD (coronary artery disease) Coronary Disease-Associated Artery/Lesion type: [place] artery [place] vs. transplanted heart: [place] heart Associated angina: without angina Qualified Code(s): I25.10 - Atherosclerotic heart disease of [place] coronary artery without angina pectoris (4) Fall Encounter type: initial encounter Qualified Code(s): W19.XXXA - Unspecified fall, initial encounter
[2020-02-21] MEDS ORDERED: SIMETHICONE 80 MG CHEW PO PRN (09:49)
[2020-02-21] MEDS ORDERED: METOPROLOL SUCC 25MG EXT REL TAB PO ONE (10:00)
--- NOTE | 2020-02-21 13:28 | Cardiology Progress Note ---
Date of Service February 21, 2020 Assessment & Plan (1) Closed fracture of left hip: (2) Fall: (3) Hypotension: (4) Mitral stenosis: (5) Pacemaker: (6) CAD (coronary artery disease): (7) Mild aortic stenosis: (8) Atrial fibrillation: (9) SSS (sick sinus syndrome): 79-year-old female status post mechanical fall with resultant closed left hip fracture. History of complex cardiac disease with multiple coronary artery interventions, persistent atrial fibrillation on chronic Eliquis anticoagulation, sick sinus syndrome status post permanent pacemaker placement, mitral stenosis, aortic stenosis, pulmonary hypertension and mild ischemic cardiomyopathy. Has responded well to transfusion. No longer hypotensive nor prerenal azotemia. Does not examine his volume overloaded at this time either. Given her history of complex coronary artery disease I will start aspirin 81 mg daily at this time given the fact that her Plavix has been held Recommend maintaining hemoglobin greater than 9 given her complex coronary artery disease and lack of symptoms. Should symptoms develop then greater than 10 would be indicated. Restart Plavix and Eliquis once risk of bleeding is acceptable from a surgical standpoint. Admission and Anticipated Discharge Date Admission Date: February 18, 2020 Subjective Patient seen and examined, chart reviewed along with postoperative events. Currently she states that she is feeling tired and rundown. Continues to deny any cardiac complaints of chest pain, shortness of breath, palpitations, lightheadedness, dizziness or syncope. Telemetry reviewed: Atrial fibrillation rate controlled. Review of Systems Review of Systems: All systems reviewed & are unremarkable except as noted in HPI & below Physical Exam Physical Exam: General: Awake, alert and oriented x 3. No acute distress. HEENT: Normocephalic, atraumatic. Pupils equal, round and reactive to light and accommodation. Extraocular muscles are intact. Anicteric sclera. Moist mucous membranes. Neck: No JVD. No bruit. Cardiovascular: Regular. Positive S-4. Normal S-1 and S-2. No S-3. 3/6 mid to late systolic ejection murmur, greatest at the right sternal border, second intercostal space with radiation to the bilateral carotids. No rubs. Pulmonary: Clear to auscultation bilaterally. No rales, rhonchi, or wheezing. Abdomen: Bowel sounds x 4, soft. No rebound, guarding or tenderness. No organomegaly. Extremities: No clubbing, cyanosis or edema. +2 pedal pulses bilaterally. Skin: Warm and dry. Results & Data ([facility]) Vital Signs (Past 12 Hours) Vital Signs Temp Pulse Pulse Resp BP BP Pulse Ox 02/21/20 12:33 36.5 C 81 17 103/68 98 02/21/20 10:50 85 20 98/52 L 100 02/21/20 10:28 88 16 95/57 L 99 02/21/20 10:24 96 H 18 67/44 L 02/21/20 09:50 88 21 106/54 L 100 02/21/20 09:30 95 H 02/21/20 08:50 91 H 20 121/50 L 100 02/21/20 08:15 89 02/21/20 08:00 36.8 C 91 H 121/50 L 02/21/20 07:50 96 H 18 86/59 L 99 02/21/20 06:50 89 20 111/53 L 96 02/21/20 06:30 96 H 22 98 02/21/20 06:00 97 H 22 100 02/21/20 05:50 97 H 19 104/65 100 02/21/20 05:00 91 H 23 100 02/21/20 04:50 91 H 22 109/61 98 02/21/20 04:30 96 H 19 99 02/21/20 03:49 94 H 24 100/70 99 02/21/20 03:26 85 22 108/55 L 98 02/21/20 03:00 36.5 C 86 22 98 02/21/20 01:49 99 H 21 106/57 L 98 (1) Closed fracture of left hip Encounter type: initial encounter Qualified Code(s): S72.002A - Fracture of unspecified part of neck of left femur, initial encounter for closed fracture (2) Fall Encounter type: initial encounter Qualified Code(s): W19.XXXA - Unspecified fall, initial encounter (3) CAD (coronary artery disease) Coronary Disease-Associated Artery/Lesion type: [place] artery [place] vs. transplanted heart: [place] heart Associated angina: without angina Qualified Code(s): I25.10 - Atherosclerotic heart disease of [place] coronary artery without angina pectoris
[2020-02-21 18:12] LABS: Hemoglobin 8.5 g/dL (12.0-16.0)
--- NOTE | 2020-02-21 19:43 | Hospitalist Progress Note ---
Date of Service February 21, 2020 Assessment & Plan (1) Closed fracture of left hip: Present on admission with left hip pain s/p mechanical fall Xray of the hip showed Intertrochanteric left hip fracture. Femur xray showed acute moderately displaced intertrochanteric fracture of the left femur. received toradol and morphine on admission Ortho on board plan to perform left trochanteric femoral nail Cardiology on board for surgical clearance As per cardiology, her preop risk assessment place her at high risk for any adverse perioperative cardiovascular event with the risk being approximately greater than 5%. ECHO showed left ventricular wall motion abnormality. Grade 3 diastolic dys function. EF 65 to 70% No further cardiac testing or intervention would further lower that risk as per cardiology Pt understands the risks of the surgery such as bleeding, infection, blot clot, heart attack and event . She would wish to proceed with the surgery. No contraindication from a cardiac standpoint to proceed with surgery. Will hold Eliquis for 48hr and plavix on hold Will make NPO after midnight 02/20 S/P day#1 Trochanteric Nail Left(Left) performed by Dr. Gonzalez Repeat hgb 8.5 today Continue monitor for hematoma Continue to hold eliquis due to low hgb from post op Continue monitor H/H PT/OT eval Toe touch WB LLE Incentive spirometry Pain control fall precaution Hypotension Might be related to hypovolemia vs opioid BP stable Continue to hold lasix Continue metoprolol Continue monitor BP Acute blood loss anemia Hgb 11.5 on admission, then dropped to 9.5 and received 1 unit PRBC on 02/18 preop Hgb dropped to 7.8 post op, then received an additional 2 units PRBC on 02/19 Most recent Hgb 8.5 today, will transfuse 1 unit prbc today Will monitor H/H and transfused if hgb drops below 9 Continue to hold eliquis and plavix for now Mitral stenosis Aortic Stenosis Will monitor closely while getting IVF and blood product Stable SSS (sick sinus syndrom S/P Pacemaker stable CAD (coronary artery disease) Plavix on hold due to anticipate surgery Plavix and eliquis on hold due to low hemoglobin form postop Continue metoprlol Atrial fibrillation Atrial Flutter EKG showed Atrial flutter Rate continue with metoprolol and Digoxin Will resume eliquis once bleeding stable as per Ortho DVT px Eliquis on hold/SCDs CODE status Full code Disposition Patient son requesting updates for providers. Mr. Kevan Palomo, contact #[phone]. Admission and Anticipated Discharge Date Admission Date: February 18, 2020 Subjective Pt was seen and examined for follow up for postop hip fracture Pt said that she feels ok She said that her pain improved Denies any chest pain, palpitation, dizziness and SOB Physical Exam Physical Exam: General- No acute distress Head- atraumatic Eyes- PERRL, EOMI, ENT- oropharynx clear Neck- supple, no JVD Lungs- clear to auscultation Heart- regular rhythm; +systolic murmur Abdomen- normal bowel sounds, soft, nontender Extremities- no calf tenderness, Left hip pain with movement Neuro- alert, oriented x 3; PERRL, EOMI; no facial palsy; no dysarthria Skin- warm & dry Results & Data Results & Data ([facility]) Vital Signs (Past 12 Hours) Vital Signs Temp Pulse Pulse Pulse Resp BP BP 02/21/20 15:28 36.5 C 82 20 120/71 02/21/20 12:33 36.5 C 81 17 02/21/20 10:50 85 20 98/52 L 02/21/20 10:28 88 16 95/57 L 02/21/20 10:24 96 H 18 67/44 L 02/21/20 09:50 88 21 106/54 L 02/21/20 09:30 95 H 02/21/20 08:50 91 H 20 121/50 L 02/21/20 08:15 89 02/21/20 08:00 36.8 C 91 H 121/50 L 02/21/20 07:50 96 H 18 86/59 L BP Pulse Ox 02/21/20 15:28 98 02/21/20 12:33 103/68 98 02/21/20 10:50 100 02/21/20 10:28 99 02/21/20 10:24 02/21/20 09:50 100 02/21/20 09:30 02/21/20 08:50 100 02/21/20 08:15 02/21/20 08:00 02/21/20 07:50 99 (1) Closed fracture of left hip Encounter type: initial encounter Qualified Code(s): S72.002A - Fracture of unspecified part of neck of left femur, initial encounter for closed fracture
[2020-02-21] MEDS ORDERED: SODIUM CHLORIDE 0.9% 250 ML IV PRN (19:44)
[2020-02-21] MEDS: INSULIN GLARGINE SOLOSTAR 100 UNITS/ML 3 ML PEN SC SCH (21:19)
[2020-02-22] MEDS: MoRPHine SULFATE 2 MG/ML CARP IV PRN (02:26)
[2020-02-22] MEDS: LEVOTHYROXINE SODIUM 50 MCG TABLET PO SCH (06:12)
[2020-02-22 06:54] LABS: Hematocrit (blood only) 25.2 % (37-47); Hemoglobin 8.7 g/dL (12.0-16.0); Mean Corpuscular Hemoglobin 30.1 pg (25-34); Mean Corpuscular Hgb Conc 34.5 g/dL (32-36); Mean Corpuscular Volume 87.2 fL (80-100); Mean Platelet Volume 10.9 fL (7.4-10.4); Platelet Count 151 K/uL (130-400); RDW Standard Deviation 44.3 fL (36.4-46.3); Red Blood Count 2.89 M/uL (4.2-5.4); White Blood Count 6.02 K/uL (4.8-10.8)
[2020-02-22 07:24] LABS: BUN Creatinine Ratio 25.8 (10-20); Calcium 8.1 mg/dl (8.5-10.1); Creatinine Clr Calc Pharmacy 28.7 ml/min; Est GFR (African American) 35.2; Est GFR (Non-African American) 30.4; Potassium 3.3 mmol/L (3.5-5.1)
[2020-02-22] MEDS ORDERED: POTASSIUM CHLORIDE CRTAB 20 MEQ TABCR PO STA (07:43)
[2020-02-22] MEDS ORDERED: ACETAMINOPHEN 325 MG TAB PO PRN (07:45)
[2020-02-22] MEDS: FERROUS SULFATE 325 MG TAB PO SCH ×2 (08:12→20:35)
[2020-02-22] MEDS: DIGOXIN 0.125 MG TAB PO SCH (08:12)
[2020-02-22] MEDS: MULTIVITAMIN CHEWABLE TAB PO SCH (08:15)
[2020-02-22] MEDS: METOPROLOL SUCC 25MG EXT REL TAB PO SCH (08:15)
[2020-02-22] MEDS: PANTOprazole 40 MG TAB PO SCH (08:15)
[2020-02-22] MEDS: CITALOPRAM 40 MG TAB PO SCH (08:15)
[2020-02-22] MEDS: INSULIN ASPART 100 UNITS/ML 3 ML PEN SC SCH ×5 (08:50→20:37)
--- NOTE | 2020-02-22 10:40 | Orthopedic Progress Note ---
Date of Service February 22, 2020 Assessment & Plan (1) Closed fracture of left hip: s/p L hip cephalomedullary nail POD#2 -ancef x 24 -DVT ppx: SCDs, TEDs, 81mg ASA, restart Eliquis when medically stable. -Toe touch WB LLE -PT/OT -PO XR demonstrates a well aligned well fixed CMN, reduction of IT fracture. -am labs as above, hgb 8.7 -Superficial hematoma improving, continue to monitor, ice, trend labs Admission and Anticipated Discharge Date Admission Date: February 18, 2020 Subjective Post Operative Progress Note Patient seen sitting up in bed, comfortable, denies complaints, pain well controlled, no acute issues. Denies F/C/N/V/SOB/CP. Review of Systems Review of Systems: All systems reviewed & are unremarkable except as noted in HPI & below Constitutional: as per Subjective / HPI Physical Exam Physical Exam: LLE NVSI +EHL/FHL/TA/GS SILT grossly, +2 DP pulse, compartments soft NT, dressing cdi. Constitutional: WD/WN, vitals as above Results & Data ([facility]) Vital Signs (Past 12 Hours) Vital Signs Temp Pulse Pulse Resp BP BP Pulse Ox 02/22/20 08:12 84 02/22/20 07:22 36.5 C 86 16 100/61 99 02/22/20 01:42 37 C 74 18 108/64 99 02/22/20 00:35 37.4 C 74 18 104/58 L 98 02/22/20 00:07 37.2 C 77 18 106/64 97 02/21/20 23:35 36.8 C 74 18 108/63 100 02/21/20 23:05 36.9 C 76 18 106/66 100 02/21/20 22:50 37 C 78 18 103/56 L 97 Laboratory Results 02/22/20 02/22/20 02/22/20 Range/Units 08:16 06:35 06:35 WBC 6.02 (4.8-10.8) K/uL RBC 2.89 L (4.2-5.4) M/uL Hgb 8.7 L (12.0-16.0) g/dL Hct 25.2 L (37-47) % MCV 87.2 (80-100) fL MCH 30.1 (25-34) pg MCHC 34.5 (32-36) g/dL RDW Std Deviation 44.3 (36.4-46.3) fL RDW Coeff of [place] 14.0 (11.5-14.5) % Plt Count 151 (130-400) K/uL MPV 10.9 H (7.4-10.4) fL Sodium 135 L (136-145) mmol/L Potassium 3.3 L D (3.5-5.1) mmol/L Chloride 103 (98-107) mmol/L Carbon Dioxide 24 (21-32) mmol/L Anion Gap 8.0 (3-11) BUN 41 H (7-18) mg/dl Creatinine 1.58 H D (0.6-1.2) mg/dl Est Cr Clr Drug Dosing 28.7 ml/min Est GFR ( Amer) 35.2 Est GFR (Non-Af Amer) 30.4 BUN/Creatinine Ratio 25.8 H (10-20) Glucose 106 H (70-99) mg/dl POC Glucose 132 H (70-99) mg/dl Calcium 8.1 L (8.5-10.1) mg/dl Blood Type Antibody Screen Antibody Identification Antibody ID Comment Crossmatch 02/21/20 02/21/20 02/21/20 Range/Units 21:12 20:29 17:56 WBC (4.8-10.8) K/uL RBC (4.2-5.4) M/uL Hgb 8.5 L (12.0-16.0) g/dL Hct 25.0 L (37-47) % MCV (80-100) fL MCH (25-34) pg MCHC (32-36) g/dL RDW Std Deviation (36.4-46.3) fL RDW Coeff of [place] (11.5-14.5) % Plt Count (130-400) K/uL MPV (7.4-10.4) fL Sodium (136-145) mmol/L Potassium (3.5-5.1) mmol/L Chloride (98-107) mmol/L Carbon Dioxide (21-32) mmol/L Anion Gap (3-11) BUN (7-18) mg/dl Creatinine (0.6-1.2) mg/dl Est Cr Clr Drug Dosing ml/min Est GFR ( Amer) Est GFR (Non-Af Amer) BUN/Creatinine Ratio (10-20) Glucose (70-99) mg/dl POC Glucose 226 H (70-99) mg/dl Calcium (8.5-10.1) mg/dl Blood Type A Negative Antibody Screen POSITIVE A Antibody Identification Anti-D Antibody ID Comment Crossmatch See Detail 02/21/20 02/21/20 02/18/20 Range/Units 17:15 11:28 16:35 WBC (4.8-10.8) K/uL RBC (4.2-5.4) M/uL Hgb (12.0-16.0) g/dL Hct (37-47) % MCV (80-100) fL MCH (25-34) pg MCHC (32-36) g/dL RDW Std Deviation (36.4-46.3) fL RDW Coeff of [place]aston (11.5-14.5) % Plt Count (130-400) K/uL MPV (7.4-10.4) fL Sodium (136-145) mmol/L Potassium (3.5-5.1) mmol/L Chloride (98-107) mmol/L Carbon Dioxide (21-32) mmol/L Anion Gap (3-11) BUN (7-18) mg/dl Creatinine (0.6-1.2) mg/dl Est Cr Clr Drug Dosing ml/min Est GFR ( Amer) Est GFR (Non-Af Amer) BUN/Creatinine Ratio (10-20) Glucose (70-99) mg/dl POC Glucose 256 H 271 H (70-99) mg/dl Calcium (8.5-10.1) mg/dl Blood Type Antibody Screen Antibody Identification Antibody ID Comment Crossmatch See Detail (1) Closed fracture of left hip Encounter type: initial encounter Qualified Code(s): S72.002A - Fracture of unspecified part of neck of left femur, initial encounter for closed fracture
--- NOTE | 2020-02-22 11:18 | Hospitalist Progress Note ---
Date of Service February 22, 2020 Assessment & Plan (1) Closed fracture of left hip: -ED notes 02/18/2020: "This is a 79-year-old female who presents to the ED with a chief complaint of left hip pain. The patient states that she was walking through her house when she suddenly fell. She is not sure why she fell. Her leg may have just given out. She states that she landed on her left hip and was on the floor for a short period of time until her family helped her." -admission X ray of present on admission with left hip pain s/p mechanical, femur xray showed acute moderately displaced intertrochanteric fracture of the left femur. -s/p Trochanteric Nail Left(Left) by Dr. Romaine Gonzalez on 02/20/2020 -Activities: Toe touch Weight Bearing of Left Lower Extremity as per orthopedics, PT/OT assessments, case management (2) Acute blood loss anemia: -hospital course was complicated by needing pre-operative cardiology clearance as well as holding home dose Plavix and Eliquis while management anemia from the fracture prior and post surgery -Hgb 11.5 on admission. patient has had 1 unit PRBC on 02/19/2020, 2 units of PRBC on 02/20/2020, and 1 unit of PRBC on 02/21/2020 -02/22/2020: Patient's Hgb 8.7. Patient seen and examined by hospitalist when she was about toe be evaluated by therapy. Her glucose was checked and normal. Patient denies acute pain. Breathing comfortably on room air. No shortness of breath. Patient denies other symptoms on review of systems. Hospitalist discussed with patient of plans for repeat CBC at 1 PM. Tentative plans would be resumed Eliquis in evening of 02/22/2020 as renally dosed 2.5 mg BID and then also clopidogrel starting on 02/23/2020 while continuing to monitor the Hgb closely. replace the home dose pantoprazole with famotidine 20 mg daily to avoid any potential interactions between pantoprazole and clopidogrel (3) CAD (coronary artery disease): CAD (coronary artery disease) Mitral stenosis, Mild aortic stenosis SSS (sick sinus syndrome), Atrial fibrillation, Presence of Pacemaker -History of complex cardiac disease with multiple coronary artery interventions, persistent atrial fibrillation on chronic Eliquis anticoagulation, sick sinus syndrome status post permanent pacemaker placement, mitral stenosis, aortic stenosis, pulmonary hypertension and mild ischemic cardiomyopathy. -Echocardiogram on this admission showed left ventricular wall motion abnormality. Grade 3 diastolic dysfunction. EF 65 to 70% -continue home dose metoprolol succinate 37.5 mg daily and digoxin 125 mcg daily for 5 times a week -holding scheduled home furosemide 20 mg daily for now -management of antiplatelets and anticoagulation as above Hypothyroidism -continue home dose levothyroxine 50 mcg daily Type 2 diabetes mellitus with long[place] foreman current use of insulin -continue sliding scale insulin as needed -continue Lantus 10 units qhs (the home dose Lantus is 16 units qhs), titrate as needed based on blood sugars continue home dose citalopram 40 mg daily CODE status Full code Patient son's Mr. Kevan Palomo, contact #[phone]. Admission and Anticipated Discharge Date Admission Date: February 18, 2020 Subjective 02/22/2020: Patient's Hgb 8.7. Patient seen and examined by hospitalist when she was about toe be evaluated by therapy. Her glucose was checked and normal. Patient denies acute pain. Breathing comfortably on room air. No shortness of breath. Patient denies other symptoms on review of systems. Hospitalist discussed with patient of plans for repeat CBC at 1 PM. Tentative plans would be resumed Eliquis in evening of 02/22/2020 as renally dosed 2.5 mg BID and then also clopidogrel starting on 02/23/2020 while continuing to monitor the Hgb closely. replace the home dose pantoprazole with famotidine 20 mg daily to avoid any potential interactions between pantoprazole and clopidogrel Review of Systems Review of Systems: All systems reviewed & are unremarkable except as noted in Subjective Physical Exam Constitutional: cooperative and comfortable Eyes: PERRL, conjunctivae normal, anicteric sclerae EOM intact bilaterally ENMT: external ear and nose normal, oropharynx normal Neck: normal visual inspection Respiratory: normal respiratory effort Cardiovascular: Rate/Rhythm: regular rate Gastrointestinal (Abdomen): normal bowel sounds, soft, nontender, no hepatosplenomegaly Skin: small dressing on left hip Neurologic: PERRL, EOMI, accommodation nl, no face palsy, no dysarthria moves all extremities Psychiatric: Orientation: alert and cooperative Results & Data Results & Data ([facility]) Vital Signs (Past 12 Hours) Vital Signs Temp Pulse Pulse Resp BP BP Pulse Ox 02/22/20 08:12 84 02/22/20 07:22 36.5 C 86 16 100/61 99 02/22/20 01:42 37 C 74 18 108/64 99 02/22/20 00:35 37.4 C 74 18 104/58 L 98 02/22/20 00:07 37.2 C 77 18 106/64 97 02/21/20 23:35 36.8 C 74 18 108/63 100 (1) Closed fracture of left hip Encounter type: initial encounter Qualified Code(s): S72.002A - Fracture of unspecified part of neck of left femur, initial encounter for closed fracture (2) CAD (coronary artery disease) Coronary Disease-Associated Artery/Lesion type: [place] artery [place] vs. transplanted heart: [place] heart Associated angina: without angina Qualified Code(s): I25.10 - Atherosclerotic heart disease of [place] coronary artery without angina pectoris
[2020-02-22 13:02] LABS: Basophils # (auto) 0.01 K/uL (0-0.2); Basophils % (auto) 0.2 %; Eosinophils # (auto) 0.02 K/uL (0-0.5); Eosinophils % (auto) 0.3 %; Hematocrit (blood only) 25.8 % (37-47); Hemoglobin 8.9 g/dL (12.0-16.0); Immature Granulocytes # (auto) 0.01 K/uL (0.00-0.02); Immature Granulocytes % (auto) 0.2 %; Lymphocytes # (auto) 0.57 K/uL (1.2-3.4); Lymphocytes % (auto) 8.8 %; Mean Corpuscular Hemoglobin 29.9 pg (25-34); Mean Corpuscular Hgb Conc 34.5 g/dL (32-36); Mean Corpuscular Volume 86.6 fL (80-100); Mean Platelet Volume 10.6 fL (7.4-10.4); Monocytes # (auto) 0.56 K/uL (0.11-0.59); Monocytes % (auto) 8.6 %; Neutrophils # (auto) 5.33 K/uL (1.4-6.5); Neutrophils % (auto) 81.9 %; Platelet Count 155 K/uL (130-400); RDW Coefficient of Variation 14.1 % (11.5-14.5); RDW Standard Deviation 43.7 fL (36.4-46.3); Red Blood Count 2.98 M/uL (4.2-5.4)
[2020-02-22] MEDS: traMADol HCL 50 MG TABLET PO PRN (15:54)
[2020-02-22] MEDS: APIXABAN 2.5 MG TAB PO SCH (20:35)
[2020-02-22] MEDS: INSULIN GLARGINE SOLOSTAR 100 UNITS/ML 3 ML PEN SC SCH (20:38)
[2020-02-23] MEDS: traMADol HCL 50 MG TABLET PO PRN ×2 (01:01→23:51)
[2020-02-23] MEDS ORDERED: LORazepam 0.25 MG/0.5 ML VIAL IV STA (01:03)
[2020-02-23] MEDS: LEVOTHYROXINE SODIUM 50 MCG TABLET PO SCH (05:54)
[2020-02-23 07:48] LABS: Alanine Aminotransferase < 6 U/L (12-78); Albumin Globulin Ratio 0.8 (0.9-2); Albumin Level 2.2 gm/dl (3.4-5.0); Alkaline Phosphatase 62 U/L (45-117); Aspartate Aminotransferase 31 U/L (15-37); BUN Creatinine Ratio 29.6 (10-20); Bilirubin,Total 0.9 mg/dl (0.2-1); Blood Urea Nitrogen 33 mg/dl (7-18); Calcium 8.7 mg/dl (8.5-10.1); Carbon Dioxide 25 mmol/L (21-32); Chloride 108 mmol/L (98-107); Creatinine Clr Calc Pharmacy 40.4 ml/min; Est GFR (African American) 53.4; Globulin 2.7 gm/dl (2.5-4.0); Glucose 137 mg/dl (70-99); Potassium 4.4 mmol/L (3.5-5.1); Sodium 139 mmol/L (136-145); Total Protein 4.9 gm/dl (6.4-8.2)
[2020-02-23] MEDS ORDERED: CLOPIDOGREL BISULFATE 75 MG TAB PO SCH (09:00)
[2020-02-23] MEDS ORDERED: HYDROmorphone INJ 0.5 MG/0.5 ML SYR IV STA (09:17)
[2020-02-23] MEDS ORDERED: oxyCODONE HCL IR 5 MG TAB (IMMEDIATE RELEASE) PO PRN (09:20)
[2020-02-23] MEDS ORDERED: HYDROmorphone INJ 0.5 MG/0.5 ML SYR IV PRN (09:20)
--- NOTE | 2020-02-23 09:27 | Hospitalist Progress Note ---
Date of Service February 23, 2020 Assessment & Plan (1) Closed fracture of left hip: -ED notes 02/18/2020: "This is a 79-year-old female who presents to the ED with a chief complaint of left hip pain. The patient states that she was walking through her house when she suddenly fell. She is not sure why she fell. Her leg may have just given out. She states that she landed on her left hip and was on the floor for a short period of time until her family helped her." -admission X ray of present on admission with left hip pain s/p mechanical, femur xray showed acute moderately displaced intertrochanteric fracture of the left femur. -s/p Trochanteric Nail Left(Left) by Dr. Romaine Gonzalez on 02/20/2020 -Activities: Toe touch Weight Bearing of Left Lower Extremity as per orthopedics, PT/OT assessments, case management (2) Acute blood loss anemia: -hospital course was complicated by needing pre-operative cardiology clearance as well as holding home dose Plavix and Eliquis while management anemia from the fracture prior and post surgery -Hgb 11.5 on admission. patient has had 1 unit PRBC on 02/19/2020, 2 units of PRBC on 02/20/2020, and 1 unit of PRBC on 02/21/2020 -02/22/2020: Patient's Hgb 8.7. Patient seen and examined by hospitalist when she was about toe be evaluated by therapy. Her glucose was checked and normal. Patient denies acute pain. Breathing comfortably on room air. No shortness of breath. Patient denies other symptoms on review of systems. Hospitalist discussed with patient of plans for repeat CBC at 1 PM. Tentative plans would be resumed Eliquis in evening of 02/22/2020 as renally dosed 2.5 mg BID and then also clopidogrel starting on 02/23/2020 while continuing to monitor the Hgb closely. replace the home dose pantoprazole with famotidine 20 mg daily to avoid any potential interactions between pantoprazole and clopidogrel -02/23/2020: Patient examined this AM after eating breakfast and she reports left hip pain. The surgical rodrigo and dressing of left hip are in place and the left hip is tender to palpation. Her pain medications are lucia adjusted. Patient wishes for solid foods rather than previous full liquid diet and her diet is to be advanced. Patient denies pain in other areas of the body. She c ontinues to be breathing on room air and no shortness of breath. Patient denies other symptoms on review of systems. Her CBC lab is pending to be drawn (3) CAD (coronary artery disease): CAD (coronary artery disease) Mitral stenosis, Mild aortic stenosis SSS (sick sinus syndrome), Atrial fibrillation, Presence of Pacemaker -History of complex cardiac disease with multiple coronary artery interventions, persistent atrial fibrillation on chronic Eliquis anticoagulation, sick sinus syndrome status post permanent pacemaker placement, mitral stenosis, aortic stenosis, pulmonary hypertension and mild ischemic cardiomyopathy. -Echocardiogram on this admission showed left ventricular wall motion abnormality. Grade 3 diastolic dysfunction. EF 65 to 70% -continue home dose metoprolol succinate 37.5 mg daily and digoxin 125 mcg daily for 5 times a week -as of 02/23/2020 her creatinine is improved and her home dose furosemide 20 mg daily can be resumed -management of antiplatelets and anticoagulation as above Hypothyroidism -continue home dose levothyroxine 50 mcg daily Type 2 diabetes mellitus with lobsterman current use of insulin -continue sliding scale insulin as needed -continue Lantus as 12 units qhs (the home dose Lantus is 16 units qhs), titrate as needed based on blood sugars continue home dose citalopram 40 mg daily CODE status Full code Patient son's Mr. Kevan Palomo, contact #[phone]. Admission and Anticipated Discharge Date Admission Date: February 18, 2020 Subjective Patient examined this AM after eating breakfast and she reports left hip pain. The surgical rodrigo and dressing of left hip are in place and the left hip is tender to palpation. Her pain medications are lucia adjusted. Patient wishes for solid foods rather than previous full liquid diet and her diet is to be advanced. Patient denies pain in other areas of the body. She continues to be breathing on room air and no shortness of breath. Patient denies other symptoms on review of systems. Review of Systems Review of Systems: All systems reviewed & are unremarkable except as noted in Subjective Physical Exam Constitutional: cooperative and comfortable Eyes: PERRL, conjunctivae normal, anicteric sclerae EOM intact bilaterally ENMT: external ear and nose normal, oropharynx normal Neck: normal visual inspection Respiratory: normal respiratory effort Cardiovascular: Rate/Rhythm: regular rate Gastrointestinal (Abdomen): normal bowel sounds, soft, nontender, no hepatosplenomegaly Musculoskeletal: Hip: + hip abnormal to inpsection (surgical rodrigo and dressing of left hip, left hip tenderness to palpation) Neurologic: PERRL, EOMI, accommodation nl, no face palsy, no dysarthria moves all extremities Psychiatric: Orientation: alert and cooperative Results & Data Results & Data ([facility]) Vital Signs (Past 12 Hours) Vital Signs Temp Pulse Resp BP Pulse Ox 02/23/20 07:22 36.7 C 81 16 106/63 98 02/22/20 23:14 37.4 C 86 20 100/62 99 (1) Closed fracture of left hip Encounter type: initial encounter Qualified Code(s): S72.002A - Fracture of unspecified part of neck of left femur, initial encounter for closed fracture (2) CAD (coronary artery disease) Coronary Disease-Associated Artery/Lesion type: [place] artery [place] vs. transplanted heart: [place] heart Associated angina: without angina Qualified Code(s): I25.10 - Atherosclerotic heart disease of [place] coronary artery without angina pectoris
--- NOTE | 2020-02-23 09:30 | Orthopedic Progress Note ---
Date of Service February 23, 2020 Assessment & Plan (1) Closed fracture of left hip: s/p L hip cephalomedullary nail POD#3 -ancef x 24 -DVT ppx: SCDs, TEDs, 81mg ASA, restart Eliquis when medically stable. -Toe touch WB LLE -PT/OT -PO XR demonstrates a well aligned well fixed CMN, reduction of IT fracture. -am labs as above, hgb 8.9 -Superficial hematoma improving, continue to monitor, ice, trend labs Orthopedics will sign off at this time, call with questions, DC instructions placed in reporting process consultant section. Admission and Anticipated Discharge Date Admission Date: February 18, 2020 Subjective Post Operative Progress Note Patient seen sitting up in bed, comfortable, denies complaints, pain well controlled, no acute issues. Denies F/C/N/V/SOB/CP. Review of Systems Review of Systems: All systems reviewed & are unremarkable except as noted in HPI & below Constitutional: as per Subjective / HPI Physical Exam Physical Exam: LLE NVSI +EHL/FHL/TA/GS SILT grossly, +2 DP pulse, compartments soft NT, dressing cdi. Constitutional: WD/WN, vitals as above Results & Data ([facility]) Vital Signs (Past 12 Hours) Vital Signs Temp Pulse Resp BP Pulse Ox 02/23/20 07:22 36.7 C 81 16 106/63 98 02/22/20 23:14 37.4 C 86 20 100/62 99 Laboratory Results 02/23/20 02/23/20 02/22/20 Range/Units 08:09 06:49 20:25 WBC (4.8-10.8) K/uL RBC (4.2-5.4) M/uL Hgb (12.0-16.0) g/dL Hct (37-47) % MCV (80-100) fL MCH (25-34) pg MCHC (32-36) g/dL RDW Std Deviation (36.4-46.3) fL RDW Coeff of [place] (11.5-14.5) % Plt Count (130-400) K/uL MPV (7.4-10.4) fL Immature Gran % (Auto) % Neut % (Auto) % Lymph % (Auto) % [place] % (Auto) % Eos % (Auto) % Baso % (Auto) % Neut # (Auto) (1.4-6.5) K/uL Lymph # (Auto) (1.2-3.4) K/uL [place] # (Auto) (0.11-0.59) K/uL Eos # (Auto) (0-0.5) K/uL Baso # (Auto) (0-0.2) K/uL Immature Gran # (Auto) (0.00-0.02) K/uL Sodium 139 (136-145) mmol/L Potassium 4.4 D (3.5-5.1) mmol/L Chloride 108 H (98-107) mmol/L Carbon Dioxide 25 (21-32) mmol/L Anion Gap 5.0 (3-11) BUN 33 H (7-18) mg/dl Creatinine 1.12 D (0.6-1.2) mg/dl Est Cr Clr Drug Dosing 40.4 ml/min Est GFR ( Amer) 53.4 Est GFR (Non-Af Amer) 46.0 BUN/Creatinine Ratio 29.6 H (10-20) Glucose 137 H (70-99) mg/dl POC Glucose 158 H 187 H (70-99) mg/dl Calcium 8.7 (8.5-10.1) mg/dl Total Bilirubin 0.9 (0.2-1) mg/dl AST 31 (15-37) U/L ALT < 6 L (12-78) U/L Alkaline Phosphatase 62 (45-117) U/L Total Protein 4.9 L (6.4-8.2) gm/dl Albumin 2.2 L (3.4-5.0) gm/dl Globulin 2.7 (2.5-4.0) gm/dl Albumin/Globulin Ratio 0.8 L (0.9-2) 02/22/20 02/22/20 02/22/20 Range/Units 17:33 12:48 11:45 WBC 6.50 (4.8-10.8) K/uL RBC 2.98 L (4.2-5.4) M/uL Hgb 8.9 L (12.0-16.0) g/dL Hct 25.8 L (37-47) % MCV 86.6 (80-100) fL MCH 29.9 (25-34) pg MCHC 34.5 (32-36) g/dL RDW Std Deviation 43.7 (36.4-46.3) fL RDW Coeff of [place] 14.1 (11.5-14.5) % Plt Count 155 (130-400) K/uL MPV 10.6 H (7.4-10.4) fL Immature Gran % (Auto) 0.2 % Neut % (Auto) 81.9 % Lymph % (Auto) 8.8 % [place] % (Auto) 8.6 % Eos % (Auto) 0.3 % Baso % (Auto) 0.2 % Neut # (Auto) 5.33 (1.4-6.5) K/uL Lymph # (Auto) 0.57 L (1.2-3.4) K/uL [place] # (Auto) 0.56 (0.11-0.59) K/uL Eos # (Auto) 0.02 (0-0.5) K/uL Baso # (Auto) 0.01 (0-0.2) K/uL Immature Gran # (Auto) 0.01 (0.00-0.02) K/uL Sodium (136-145) mmol/L Potassium (3.5-5.1) mmol/L Chloride (98-107) mmol/L Carbon Dioxide (21-32) mmol/L Anion Gap (3-11) BUN (7-18) mg/dl Creatinine (0.6-1.2) mg/dl Est Cr Clr Drug Dosing ml/min Est GFR ( Amer) Est GFR (Non-Af Amer) BUN/Creatinine Ratio (10-20) Glucose (70-99) mg/dl POC Glucose 186 H 145 H (70-99) mg/dl Calcium (8.5-10.1) mg/dl Total Bilirubin (0.2-1) mg/dl AST (15-37) U/L ALT (12-78) U/L Alkaline Phosphatase (45-117) U/L Total Protein (6.4-8.2) gm/dl Albumin (3.4-5.0) gm/dl Globulin (2.5-4.0) gm/dl Albumin/Globulin Ratio (0.9-2) 02/22/20 Range/Units 11:11 WBC (4.8-10.8) K/uL RBC (4.2-5.4) M/uL Hgb (12.0-16.0) g/dL Hct (37-47) % MCV (80-100) fL MCH (25-34) pg MCHC (32-36) g/dL RDW Std Deviation (36.4-46.3) fL RDW Coeff of [place] (11.5-14.5) % Plt Count (130-400) K/uL MPV (7.4-10.4) fL Immature Gran % (Auto) % Neut % (Auto) % Lymph % (Auto) % [place] % (Auto) % Eos % (Auto) % Baso % (Auto) % Neut # (Auto) (1.4-6.5) K/uL Lymph # (Auto) (1.2-3.4) K/uL [place] # (Auto) (0.11-0.59) K/uL Eos # (Auto) (0-0.5) K/uL Baso # (Auto) (0-0.2) K/uL Immature Gran # (Auto) (0.00-0.02) K/uL Sodium (136-145) mmol/L Potassium (3.5-5.1) mmol/L Chloride (98-107) mmol/L Carbon Dioxide (21-32) mmol/L Anion Gap (3-11) BUN (7-18) mg/dl Creatinine (0.6-1.2) mg/dl Est Cr Clr Drug Dosing ml/min Est GFR ( Amer) Est GFR (Non-Af Amer) BUN/Creatinine Ratio (10-20) Glucose (70-99) mg/dl POC Glucose 146 H (70-99) mg/dl Calcium (8.5-10.1) mg/dl Total Bilirubin (0.2-1) mg/dl AST (15-37) U/L ALT (12-78) U/L Alkaline Phosphatase (45-117) U/L Total Protein (6.4-8.2) gm/dl Albumin (3.4-5.0) gm/dl Globulin (2.5-4.0) gm/dl Albumin/Globulin Ratio (0.9-2) (1) Closed fracture of left hip Encounter type: initial encounter Qualified Code(s): S72.002A - Fracture of unspecified part of neck of left femur, initial encounter for closed fracture
[2020-02-23 09:37] LABS: Basophils # (auto) 0.01 K/uL (0-0.2); Basophils % (auto) 0.2 %; Eosinophils # (auto) 0.04 K/uL (0-0.5); Eosinophils % (auto) 0.8 %; Hematocrit (blood only) 22.9 % (37-47); Hemoglobin 7.7 g/dL (12.0-16.0); Immature Granulocytes # (auto) 0.01 K/uL (0.00-0.02); Immature Granulocytes % (auto) 0.2 %; Lymphocytes # (auto) 0.67 K/uL (1.2-3.4); Mean Corpuscular Hemoglobin 29.8 pg (25-34); Mean Corpuscular Hgb Conc 33.6 g/dL (32-36); Mean Corpuscular Volume 88.8 fL (80-100); Monocytes # (auto) 0.44 K/uL (0.11-0.59); Monocytes % (auto) 9.2 %; Neutrophils % (auto) 75.6 %; Platelet Count 159 K/uL (130-400); RDW Coefficient of Variation 14.5 % (11.5-14.5); RDW Standard Deviation 46.4 fL (36.4-46.3); Red Blood Count 2.58 M/uL (4.2-5.4); White Blood Count 4.77 K/uL (4.8-10.8)
[2020-02-23] MEDS: INSULIN ASPART 100 UNITS/ML 3 ML PEN SC SCH ×4 (09:48→21:40)
[2020-02-23] MEDS: MULTIVITAMIN CHEWABLE TAB PO SCH (09:50)
[2020-02-23] MEDS: DIGOXIN 0.125 MG TAB PO SCH (09:50)
[2020-02-23] MEDS: CITALOPRAM 40 MG TAB PO SCH (09:50)
[2020-02-23] MEDS: FERROUS SULFATE 325 MG TAB PO SCH ×2 (09:51→21:39)
[2020-02-23] MEDS: METOPROLOL SUCC 25MG EXT REL TAB PO SCH (09:51)
[2020-02-23] MEDS: APIXABAN 2.5 MG TAB PO SCH (09:51)
[2020-02-23] MEDS: FAMOTIDINE 20 MG TAB PO SCH (09:51)
[2020-02-23] MEDS: FUROSEMIDE 20 MG TAB PO SCH (10:03)
--- NOTE | 2020-02-23 12:58 | Communication Note ---
Date of Service: February 23, 2020 The Hgb 7.7 on 02/23/2020. holding further clopidogrel and Apixaban for now. will repeat Hgb and type and screen on 02/24/2020
[2020-02-23] MEDS ORDERED: INSULIN GLARGINE SOLOSTAR 100 UNITS/ML 3 ML PEN SC SCH (21:00)
[2020-02-24] MEDS: LEVOTHYROXINE SODIUM 50 MCG TABLET PO SCH (06:08)
[2020-02-24 07:01] LABS: Basophils # (auto) 0.01 K/uL (0-0.2); Basophils % (auto) 0.2 %; Eosinophils # (auto) 0.07 K/uL (0-0.5); Eosinophils % (auto) 1.5 %; Hematocrit (blood only) 23.7 % (37-47); Immature Granulocytes # (auto) 0.03 K/uL (0.00-0.02); Immature Granulocytes % (auto) 0.7 %; Lymphocytes # (auto) 0.73 K/uL (1.2-3.4); Mean Corpuscular Hemoglobin 30.3 pg (25-34); Mean Corpuscular Hgb Conc 33.8 g/dL (32-36); Mean Corpuscular Volume 89.8 fL (80-100); Mean Platelet Volume 9.9 fL (7.4-10.4); Monocytes # (auto) 0.44 K/uL (0.11-0.59); Monocytes % (auto) 9.6 %; Neutrophils # (auto) 3.28 K/uL (1.4-6.5); Platelet Count 177 K/uL (130-400); RDW Coefficient of Variation 14.5 % (11.5-14.5); Red Blood Count 2.64 M/uL (4.2-5.4); White Blood Count 4.56 K/uL (4.8-10.8)
--- NOTE | 2020-02-24 08:20 | Hospitalist Progress Note ---
Date of Service February 24, 2020 Assessment & Plan (1) Closed fracture of left hip: -ED notes 02/18/2020: "This is a 79-year-old female who presents to the ED with a chief complaint of left hip pain. The patient states that she was walking through her house when she suddenly fell. She is not sure why she fell. Her leg may have just given out. She states that she landed on her left hip and was on the floor for a short period of time until her family helped her." -admission X ray of present on admission with left hip pain s/p mechanical, femur xray showed acute moderately displaced intertrochanteric fracture of the left femur. -s/p Trochanteric Nail Left(Left) by Dr. Romaine Gonzalez on 02/20/2020 -Activities: Toe touch Weight Bearing of Left Lower Extremity as per orthopedics, PT/OT assessments, case management (2) Acute blood loss anemia: -hospital course was complicated by needing pre-operative cardiology clearance as well as holding home dose Plavix and Eliquis while management anemia from the fracture prior and post surgery -Hgb 11.5 on admission. patient has had 1 unit PRBC on 02/19/2020, 2 units of PRBC on 02/20/2020, and 1 unit of PRBC on 02/21/2020 -02/22/2020: Patient's Hgb 8.7. Patient seen and examined by hospitalist when she was about toe be evaluated by therapy. Her glucose was checked and normal. Patient denies acute pain. Breathing comfortably on room air. No shortness of breath. Patient denies other symptoms on review of systems. Hospitalist discussed with patient of plans for repeat CBC at 1 PM. Tentative plans would be resumed Eliquis in evening of 02/22/2020 as renally dosed 2.5 mg BID and then also clopidogrel starting on 02/23/2020 while continuing to monitor the Hgb closely. replaced the home dose pantoprazole with famotidine 20 mg daily to avoid any potential interactions between pantoprazole and clopidogrel -02/23/2020: Patient examined this AM after eating breakfast and she reports left hip pain. The surgical rodrigo and dressing of left hip are in place and the left hip is tender to palpation. Her pain medications are lucia adjusted. Patient wishes for solid foods rather than previous full liquid diet and her diet is to be advanced. Patient denies pain in other areas of the body. She continues to be breathing on room air and no shortness of breath. Patient denies other symptoms on review of systems. Her CBC lab 7.7 and she received the AM dose of clopidogrel and Apixaban. The night time Apixaban was held in case any further decreases in the Hgb -02/24/2020: the Hgb stable as 8. It would appear that the AM dose of clopidogrel can be given and also continue Apixaban as 2.5 mg BID. Patient seen and examined at bedside with nursing staff. Patient reports she is more comfortable this AM compared to yesterday AM. Breathing comfortably on room air. no shortness of breath. Patient denies other symptoms on review of systems. discussed with disability case manager on when there is insurance authorization for patient to go to a physical rehabilitation center (3) CAD (coronary artery disease): CAD (coronary artery disease) Mitral stenosis, Mild aortic stenosis SSS (sick sinus syndrome), Atrial fibrillation, Presence of Pacemaker -History of complex cardiac disease with multiple coronary artery interventions, persistent atrial fibrillation on chronic Eliquis anticoagulation, sick sinus syndrome status post permanent pacemaker placement, mitral stenosis, aortic stenosis, pulmonary hypertension and mild ischemic cardiomyopathy. -Echocardiogram on this admission showed left ventricular wall motion abnormality. Grade 3 diastolic dysfunction. 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 Kevan Palomo, contact #[phone]. Admission and Anticipated Discharge Date Admission Date: February 18, 2020 Subjective -02/24/2020: the Hgb stable as 8. It would appear that the AM dose of clopidogrel can be given and also continue Apixaban as 2.5 mg BID. Patient seen and examined at bedside with nursing staff. Patient reports she is more comfortable this AM compared to yesterday AM. Breathing comfortably on room air. no shortness of breath. Patient denies other symptoms on review of systems. discussed with disability case manager on when there is insurance authorization for patient to go to a physical rehabilitation center Review of Systems Review of Systems: All systems reviewed & are unremarkable except as noted in Subjective Physical Exam Constitutional: comfortable Eyes: PERRL, conjunctivae normal, anicteric sclerae EOM intact bilaterally ENMT: external ear and nose normal, oropharynx normal Neck: normal visual inspection Respiratory: normal respiratory effort, lungs clear to auscultation Cardiovascular: Rate/Rhythm: regular rate Gastrointestinal (Abdomen): normal bowel sounds, soft, nontender, no hepatosplenomegaly Musculoskeletal: Head/Neck/Chest: normocephalic and head atraumatic Neurologic: PERRL, EOMI, accommodation nl, no face palsy, no dysarthria Psychiatric: Orientation: alert and cooperative Results & Data Results & Data ([facility]) Vital Signs (Past 12 Hours) Vital Signs Temp Pulse Resp BP Pulse Ox 02/24/20 07:30 36.6 C 81 16 101/61 95 02/24/20 00:20 36.5 C 77 22 116/73 98 (1) Closed fracture of left hip Encounter type: initial encounter Qualified Code(s): S72.002A - Fracture of unspecified part of neck of left femur, initial encounter for closed fracture (2) CAD (coronary artery disease) Coronary Disease-Associated Artery/Lesion type: [place] artery [place] vs. transplanted heart: eagle heart Associated angina: without angina Qualified Code(s): I25.10 - Atherosclerotic heart disease of eagle coronary artery without angina pectoris
[2020-02-24] MEDS ORDERED: CLOPIDOGREL BISULFATE 75 MG TAB PO SCH (09:00)
[2020-02-24] MEDS ORDERED: APIXABAN 2.5 MG TAB PO SCH (09:00)
[2020-02-24] MEDS: INSULIN ASPART 100 UNITS/ML 3 ML PEN SC SCH ×2 (09:52→13:33)
[2020-02-24] MEDS: DIGOXIN 0.125 MG TAB PO SCH (09:53)
[2020-02-24] MEDS: METOPROLOL SUCC 25MG EXT REL TAB PO SCH (09:53)
[2020-02-24] MEDS: FERROUS SULFATE 325 MG TAB PO SCH (09:54)
[2020-02-24] MEDS: CITALOPRAM 40 MG TAB PO SCH (09:54)
[2020-02-24] MEDS: MULTIVITAMIN CHEWABLE TAB PO SCH (09:55)
[2020-02-24] MEDS: FUROSEMIDE 20 MG TAB PO SCH (09:55)
[2020-02-24] MEDS: FAMOTIDINE 20 MG TAB PO SCH (09:56)
--- NOTE | 2020-02-24 10:11 | Discharge Summary ---
Date of Service February 24, 2020 Admission HPI Per Admitting Provider History obtained from patient and records. Medical history significant for chronic diastolic heart failure (EF 55 to 60%, TTE 2019), SSS sp PPM, CAD status post stent, valvular heart disease (mild to moderate aortic stenosis, moderate mitral stenosis), hypertension, hyperlipidemia, DM 2 insulin requiring, hypothyroidism, chronic anemia (baseline hemoglobin of 11), myelodysplastic syndrome as per records. Last confinement October 2019 for headache symptoms. Patient was walking towards her kitchen carrying a bottle of water when she fell down landing on her left side. Not sure if she passed out. Denies chest pain, S OB, headache, head trauma symptoms. Achy left hip pain worse with motion. Unable to get up. Patient brought to the ER for evaluation. 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, lives with son Principal Diagnosis Closed fracture of left hip Acute blood loss anemia Type 2 diabetes mellitus with custodial current use of insulin Other history and diagnosis of Hypothyroidism CAD (coronary artery disease), Mitral stenosis, Mild aortic stenosis, SSS (sick sinus syndrome), Atrial fibrillation, Presence of Pacemaker Discharge Exam Constitutional cooperative and comfortable Eyes PERRL, conjunctivae normal, anicteric sclerae EOM intact bilaterally ENMT external ear and nose normal, oropharynx normal Neck normal visual inspection Respiratory normal respiratory effort, lungs clear to auscultation normal respiratory effort Cardiovascular Rate/Rhythm: regular rate Gastrointestinal (Abdomen) normal bowel sounds, soft, nontender, no hepatosplenomegaly Musculoskeletal Head/Neck/Chest: normocephalic and head atraumatic Hip: + hip abnormal to inpsection (surgical rodrigo and dressing of left hip, left hip tenderness to palpation) Neurologic PERRL, EOMI, accommodation nl, no face palsy, no dysarthria moves all extremities Psychiatric Orientation: alert and cooperative Discharge Data Allergies Allergy/AdvReac Type Severity Reaction Status Date / Time adhesive Allergy Unknown ADHESIVE Verified 02/18/20 18:51 TAPE Consultations 02/18/20 21:49 Consult Cardiology Routine Consult Case Management - Discharge Planning Routine Consult Case Management - Discharge Planning Routine Consult Orthopedic Surgery Routine 02/20/20 21:49 Consult Marketing Business Analyst Routine Procedures Performed Operation Date: 02/20/20 13:00 Actual Procedures p Trochanteric Nail Left(Left) - Romaine Gonzalez, Ordered Studies 02/20/20 13:00 FL femur LT 2V Routine FL fluoroscopy <1hr Routine Hospital Course (1) Closed fracture of left hip: -ED notes 02/18/2020: "This is a 79-year-old female who presents to the ED with a chief complaint of left hip pain. The patient states that she was walking through her house when she suddenly fell. She is not sure why she fell. Her leg may have just given out. She states that she landed on her left hip and was on the floor for a short period of time until her family helped her." -admission X ray of present on admission with left hip pain s/p mechanical, femur xray showed acute moderately displaced intertrochanteric fracture of the left femur. -s/p Trochanteric Nail Left(Left) by Dr. Romaine Gonzalez on 02/20/2020 -Activities: Toe touch Weight Bearing of Left Lower Extremity as per orthopedics, PT/OT assessments, case management (2) Acute blood loss anemia: -hospital course was complicated by needing pre-operative cardiology clearance as well as holding home dose Plavix and Eliquis while management anemia from the fracture prior and post surgery -Hgb 11.5 on admission. patient has had 1 unit PRBC on 02/19/2020, 2 units of PRBC on 02/20/2020, and 1 unit of PRBC on 02/21/2020 -02/22/2020: Patient's Hgb 8.7. Patient seen and examined by hospitalist when she was about toe be evaluated by therapy. Her glucose was checked and normal. Patient denies acute pain. Breathing comfortably on room air. No shortness of breath. Patient denies other symptoms on review of systems. Hospitalist discussed with patient of plans for repeat CBC at 1 PM. Tentative plans would be resumed Eliquis in evening of 02/22/2020 as renally dosed 2.5 mg BID and then also clopidogrel starting on 02/23/2020 while continuing to monitor the Hgb closely. replaced the home dose pantoprazole with famotidine 20 mg daily to avoid any potential interactions between pantoprazole and clopidogrel -02/23/2020: Patient examined this AM after eating breakfast and she reports left hip pain. The surgical rodrigo and dressing of left hip are in place and the left hip is tender to palpation. Her pain medications are lucia adjusted. Patient wishes for solid foods rather than previous full liquid diet and her diet is to be advanced. Patient denies pain in other areas of the body. She continues to be breathing on room air and no shortness of breath. Patient denies other symptoms on review of systems. Her CBC lab 7.7 and she received the AM dose of clopidogrel and Apixaban. The night time Apixaban was held in case any further decreases in the Hgb -02/24/2020: the Hgb stable as 8. It would appear that the AM dose of clopidogrel can be given and also continue Apixaban as 2.5 mg BID. Patient seen and examined at bedside with nursing staff. Patient reports she is more comfortable this AM compared to yesterday AM. Breathing comfortably on room air. no shortness of breath. Patient denies other symptoms on review of systems. discussed with casework supervisor on when there is insurance authorization for patient to go to a physical rehabilitation center discharge to physical therapy facility of [facility] changes to home medications sent electronically to [facility] [address], [place] [address] which is the preferred pharmacy of [facility] ( Eliquis 2.5 mg BID, of clopidogrel 75 mg daily, replaced home dose pantoprazole with famotidine 20 mg daily to avoid potential drug reactions of PPI to clopidogrel, Lantus as 12 units qhs, acetaminophen 325 mg q6 hours prn for pain or fever) accompanying prescription of oxycodone 5 mg every 8 hours if moderate to severe pain (12 tablets total) discharge hemoglobin of 8 on 02/24/2020 Patient will need follow up with primary care doctor and repeat CBC orthopedic followup with [facility] ([facility]); call [facility] at [phone] to schedule a follow up appointment 10-14 days from the date of surgery which was performed as s/p Trochanteric Nail Left(Left) by Dr. Romaine Gonzalez on 02/20/2020 upcoming scheduled appointments with [facility]: 03/20/2020 11:00 AM Provider DO Mina Cosme [facility] 03/28/2020 8:30 AM Provider Gamaliel Matthews PA-C Department Cardiology, [facility] (3) CAD (coronary artery disease): CAD (coronary artery disease) Mitral stenosis, Mild aortic stenosis SSS (sick sinus syndrome), Atrial fibrillation, Presence of Pacemaker -History of complex cardiac disease with multiple coronary artery interventions, persistent atrial fibrillation on chronic Eliquis anticoagulation, sick sinus syndrome status post permanent pacemaker placement, mitral stenosis, aortic stenosis, pulmonary hypertension and mild ischemic cardiomyopathy. -Echocardiogram on this admission showed left ventricular wall motion abnormality. Grade 3 diastolic dysfunction. 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 Kevan Palomo, contact #[phone]. 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 Other history and diagnosis of Hypothyroidism CAD (coronary artery disease), Mitral stenosis, Mild aortic stenosis, SSS (sick sinus syndrome), Atrial fibrillation, Presence of Pacemaker Activity: Per Instructions section Weightbearing: Left toe touch and Right weightbearing Non-emergency contact: Primary Care Provider and Infusion Therapy Nurse Call non-emergency contact if: you have any medication questions Follow-up/Referrals: Liza Dobbs, [Primary Care Provider] - Diet: Carb Consistent or DM2 Diet Comment: minced, moist diet Addtl Attending Provider Instructions: discharge to physical therapy facility of [facility] changes to home medications sent electronically to [facility] [address], [place] [address] which is the preferred pharmacy of [facility] ( Eliquis 2.5 mg BID, of clopidogrel 75 mg daily, replaced home dose pantoprazole with famotidine 20 mg daily to avoid potential drug reactions of PPI to clopidogrel, Lantus as 12 units qhs, acetaminophen 325 mg q6 hours prn for pain or fever) accompanying prescription of oxycodone 5 mg every 8 hours if moderate to severe pain (12 tablets total) discharge hemoglobin of 8 on 02/24/2020 Patient will need follow up with primary care doctor and repeat CBC orthopedic followup with [facility] ([facility]); call [facility] at [phone] to schedule a follow up appointment 10-14 days from the date of surgery which was performed as s/p Trochanteric Nail Left(Left) by Dr. Romaine Gonzalez on 02/20/2020 upcoming scheduled appointments with [facility] of: 03/20/2020 11:00 AM Provider Liza Dobbs DO Department [facility] 03/28/2020 8:30 AM Provider Gamaliel Matthews PA-C Department Cardiology, [facility] Add Clerical Clerk Provider Instructions: U DISCHARGE INSTRUCTIONS: HIP FRACTURE SELF CARE INSTRUCTIONS: A. You are to ambulate with a walker or crutches for approximately 6 weeks. B. You are TOE TOUCH WEIGHT BEARING on your operative lower extremity for at least 6 weeks. C. Wear low heeled shoes with non-slip soles D. Be sure that your floors are free of things that could trip you throw rugs, electrical cords, and small objects. Avoid wet and waxed floors, especially with crutches/walker/cane. E. Try to walk several times a day with rest periods between. F. You may shower 48 hours after surgery and get the incision area wet, but DO NOT soak or submerge incision area in water. (No baths, swimming pools, hot tubs) G. You may have a large, band-aid like dressing over your incision (Aquacel). This will remain on your incision for 7 days, and then can be removed. You CAN shower with this on. If incision is leaking through the dressing, please call the office . H. Do NOT apply soap or any ointment/lotions directly over incision. I. You may use ice as needed to operative site. SPECIAL CARE INSTRUCTIONS: VERY IMPORTANT TO READ AND REVIEW A. You may be at risk for phlebitis or blood clots. a. Wear surgical stockings (BHASKAR hose) for 2 weeks after surgery to improve circulation and reduce swelling. b. Take your home medication Eliquis twice daily or as directed. This is your blood thinner. c. If you are on Coumadin- you will have daily/weekly blood work to monitor your levels. This will be done by either your family physician/weight tester (if you are on Coumadin chronically) versus your orthopedic surgeon. Expect a phone call the day of or the day after your blood work is drawn to adjust your dose accordingly. B. There are a few signs you need to watch for after you are home. Call [facility] at [phone] if you experience any of the following: a. If you have a temperature of 101 degrees or higher. b. Sudden increase in pain in your hip not relieved by rest or pain medication. c. Any fluid or drainage from the incision; redness of the incision. d. Shortness of breath or chest pain. B. Please call [facility] at [phone] if you have any questions or concerns about your operation or recovery. C. Call your physician if: a. Temperature is greater than 101 degrees (F). b. Pain is not relieved by prescribed pain medications. c. Increase drainage or redness from incision. d. Unanswered questions or concerns. D. Pain Medication: a. You will be prescribed pain medication upon discharge that should last till your first post-operative appointment. b. If you experience nausea and/or skin rash, discontinue this medication and contact our office for an alternative medication. c. Caution- narcotic pain medication can cause constipation. FOLLOW UP VISIT: Please call [facility] at [phone] to schedule a follow up appointment 10-14 days from the date of your surgery date. Pending Studies at Discharge: No Stand-Alone Forms: My [facility] Skilled Items Patient informed of condition?: Yes DNR: No Discharge Level of Care: Acute rehab Communicable Disease: No Discharge Prognosis: Stable Lines: None Urinary Catheter: No Medications and DC Order Prescriptions: New clopidogrel 75 mg Tablet 75 mg PO QAM 30 Days Qty: 30 RF: 0 famotidine 20 mg Tablet 20 mg PO QAM 30 Days Qty: 30 RF: 0 Lantus Solostar U-100 Insulin 100 unit/mL (3 mL) Insulin Pen 12 unit SC HS 30 Days Qty: 4 RF: 0 Eliquis 2.5 mg Tablet 2.5 mg PO BID 30 Days Qty: 60 RF: 0 oxycodone 5 mg Tablet 5 mg PO Q8H PRN (Reason: moderate to severe pain) 4 Days Qty: 12 RF: 0 Continued citalopram 40 mg Tablet 40 mg PO QAM RF: 0 levothyroxine 50 mcg Tablet 50 mcg PO QAM RF: 0 Flintstones Multivitamin Tablet,Chewable 1 tab PO QAM RF: 0 metoprolol succinate 25 mg Tablet Extended Release 24 Hr 37.5 mg PO QAM RF: 0 ferrous sulfate 325 mg (65 mg iron) Tablet 325 mg PO BID RF: 0 digoxin 125 mcg (0.125 mg) tablet 125 mcg PO 5XWK RF: 0 furosemide 20 mg tablet 20 mg PO QAM RF: 0 cyanocobalamin (vitamin B-12) 1,000 mcg/mL solution 1,000 mcg IM MONTHLY RF: 0 nitroglycerin 0.4 mg tablet, sublingual 0.4 mg sublingual DIRECTED PRN (Reason: Chest Pain) RF: 0 Discontinued pantoprazole [Protonix] 40 mg Tablet,Delayed Release (Dr/Ec) 40 mg PO QAM RF: 0 Lantus Solostar U-100 Insulin 100 unit/mL (3 mL) Insulin Pen 16 unit SUBCUT QAM RF: 0 clopidogrel [Plavix] 75 mg Tablet 75 mg PO QAM RF: 0 albuterol sulfate 90 mcg/actuation Hfa Aerosol Inhaler 2 puff INHALATION Q4H PRN (Reason: Shortness Of Breath Or Wheezing) RF: 0 Eliquis 5 mg tablet 5 mg PO BID RF: 0 Discharge Orders: Discharge Order (Routine); Ordered 02/24/20 Ordered By: Pepe Fitzpatrick Admission Data Admit Date/Time: 02/18/20 20:29 Attending Provider: Pepe Fitzpatrick Admit Provider: Alexey De La Rosa Primary Care Provider: Liza Dobbs Other Providers: Alexey De La Rosa ; Monty Thomas,Ramon J ; Luis Pichardo ; Mich Gomez ; Felix Caraballo. ; Gamaliel Matthews ; Uzma Carrasco ; Summer Calles ; Valentino Keyes ; Maikel Plummer ; Zuhair Jaimes ; Rita Pruitt [facility]
--- NOTE | 2020-02-29 10:12 | Coding Query ---
CODING QUERY To promote full compliance with coding requirements relating to patient care, provider participation is requested in all cases of rn trauma uncertainty. Please assist us with the question(s) below: Coding Question(s): The Critical Care Consultation on 02/20/20 and Critical Care Progress Note on 02/21/20 document Hypovolemic Shock. There is no documentation of Hypovolemia Shock on the Discharge Summary. Please specify below, in your clinical opinion, regarding Hypovolemic Shock. ( ) Hypovolemic Shock Unspecified, Not likely a postoperative complication ( ) Hypovolemic Shock, Other, Not likely a postoperative complication: Please Specify ( ) Hypovolemic Shock is likley Postoperative Hypovolemic Shock postoperative complication ( ) Hypovolemic Shock is Ruled-Out Physician's Response(s): documented as Hypovolemic Shock as above Thank you Jyoti Paris Principal Diagnosis: "that condition established after study, to be chiefly responsible for occasioning the admission of the patient to the hospital for care." Co-Existing Principal Diagnosis: "when two or more diagnoses equally meet the criteria for principal diagnosis as determined by the circumstances of admission, diagnostic work up, and/or therapy provided, and the Alphabetic Index, Tabular List, or another coding guideline does not provide sequencing direction, any one of the diagnoses may be sequenced first." "When the physician has documented what appears to be a current diagnosis in the body of the record, but has not included the diagnosis in the final diagnostic statement, the physician should be asked whether the diagnosis should be added." ([facility] 2 QTR90. p3-4) YAN
--- NOTE | 2020-02-29 10:15 | Coding Query ---
CODING QUERY To promote full compliance with coding requirements relating to patient care, provider participation is requested in all cases of asbestos removal supervisor uncertainty. Please assist us with the question(s) below: Coding Question(s): There is documentation of postop hematoma beginning on the 02/20/20 Critical Care Consultation. Please specify below, in your clinical opinion, regarding the postop hematoma. ( ) Postop Hematoma is likely a postoperative complication ( ) Postop Hematoma is Not a postoperative complication ( X ) Postop Hematoma is Other: Please Specify: Not unexpected post operative finding given patient's risk of bleeding due to being on blood thinners, poor kidney function, trauma and surgery. Physician's Response(s): Thank you Jyoti Paris Principal Diagnosis: "that condition established after study, to be chiefly responsible for occasioning the admission of the patient to the hospital for care." Co-Existing Principal Diagnosis: "when two or more diagnoses equally meet the criteria for principal diagnosis as determined by the circumstances of admission, diagnostic work up, and/or therapy provided, and the Alphabetic Index, Tabular List, or another coding guideline does not provide sequencing direction, any one of the diagnoses may be sequenced first." "When the physician has documented what appears to be a current diagnosis in the body of the record, but has not included the diagnosis in the final diagnostic statement, the physician should be asked whether the diagnosis should be added." ([facility]oding [facility] 2 QTR90. p3-4) YAN
== END 2020-02-24 15:02 ==
LOC: ED 16:27 → SUATTDRO 20:29 → 2S 20:29 → 1E 02-20 17:12 → 3N 02-21 09:47

== ENCOUNTER 2020-06-21 16:14 | Inpatient (IN) ==
[2020-06-21] MEDS ORDERED: SODIUM CHLORIDE 0.9% 1000ML 1,000 ML IV STA (16:19)
[2020-06-21] MEDS ORDERED: ONDANSETRON INJ 2 MG/ML 2 ML VIAL IV STA (16:53)
[2020-06-21] MEDS ORDERED: fentaNYL citrate 100 MCG/2 ML VIAL IV PRN ×2 (16:53→19:47)
[2020-06-21] MEDS ORDERED: SODIUM CHLORIDE 0.9% 1000ML 500 ML IV ONE ×2 (16:53→18:14)
[2020-06-21 17:18] LABS: Hematocrit (blood only) 32.8 % (37-47); Hemoglobin 10.9 g/dL (12.0-16.0); Lymphocytes # (auto) 0.06 K/uL (1.2-3.4); Lymphocytes % (auto) 1.3 %; Mean Corpuscular Hemoglobin 30.4 pg (25-34); Mean Corpuscular Hgb Conc 33.2 g/dL (32-36); Mean Corpuscular Volume 91.4 fL (80-100); Mean Platelet Volume 10.2 fL (7.4-10.4); Monocytes # (auto) 0.02 K/uL (0.11-0.59); Monocytes % (auto) 0.4 %; Neutrophils # (auto) 4.46 K/uL (1.4-6.5); Neutrophils % (auto) 98.3 %; Platelet Count 154 K/uL (130-400); RDW Coefficient of Variation 14.2 % (11.5-14.5); Red Blood Count 3.59 M/uL (4.2-5.4); White Blood Count 4.54 K/uL (4.8-10.8)
[2020-06-21 17:28] LABS: INR 2.1 (0.9-1.1); Prothrombin Time 20.3 Seconds (9.0-12.0)
[2020-06-21 17:28] LABS: Appearance Urine Clear (Clear); Bacteria Urine Automated 1+ (Negative); Bilirubin Urine Negative (Negative); Blood Urine 3+ (Negative); Cast Urine Automated 0 /lpf (0-5); Color Urine Yellow; Epithelial Cell Urine Auto 0-5 /lpf (0-5); Glucose Urine UA Negative (Negative); Ketones Urine Negative (Negative); Leukocyte Esterase Urine Trace (Negative); Nitrite Urine Positive (Negative); Protein Urine Negative (Negative); RBC Urine Automated 0-4 /hpf (0-4); Specific Gravity Urine 1.015 (1.000-1.030); Urobilinogen Urine Negative (Negative)
[2020-06-21 17:30] LABS: iSTAT Creatinine 1.5 mg/dl (0.6-1.3); iSTAT Hemoglobin 10.9 g/dl (12.0-16.0); iSTAT Ionized Calcium 1.09 mmol/l (1.12-1.32); iSTAT Potassium 4.1 mmol/L (3.3-5.0)
[2020-06-21 17:37] LABS: Calcium Oxalate Crystals Urine Present (None Prsent)
[2020-06-21 17:44] LABS: Albumin Level 2.8 gm/dl (3.4-5.0); BUN Creatinine Ratio 13.3 (10-20); Calcium 7.9 mg/dl (8.5-10.1); Creatinine Clr Calc Pharmacy 31.2 ml/min; Est GFR (Non-African American) 31.1; Potassium 4.1 mmol/L (3.5-5.1)
[2020-06-21 17:46] LABS: Albumin Globulin Ratio 0.9 (0.9-2); Bilirubin,Total 0.7 mg/dl (0.2-1); Globulin 3.2 gm/dl (2.5-4.0)
--- NOTE | 2020-06-21 17:53 | CT Scan Report ---
CT SCAN OF THE ABDOMEN AND PELVIS WITHOUT CONTRAST CLINICAL HISTORY: diffuse abd pain COMPARISON STUDY: February 2019 TECHNIQUE: CT scan of the abdomen and pelvis was performed from the lung bases to the proximal femurs . Images are reviewed in the axial, sagittal, and coronal planes. IV contrast was not administered fo r this examination. A dose lowering technique was utilized adhering to the principles of ALARA. CT DOSE: 718.58 mGy.cm FINDINGS: Lower chest: There is small hiatal hernia. There is a small amount of fluid within the distal esophag us. There are basilar atelectatic changes. There are right-sided pleural calcifications. There is tra ce left pleural fluid. The heart is enlarged. Pacemaker is visualized. Liver: There is no ductal dilatation. There is presumed focal fat adjacent the falciform ligament. Gallbladder: Not visualized presumed surgically absent. Spleen: Normal in size and attenuation. A splenule is visualized in the splenic hilar region. Pancreas: Pancreas is atrophic. There is no ductal dilatation. There is infiltration of fat at the le cheryle the pancreatic tail, medial to the spleen, posterior to the colon, and anterior to the left kidne y. This edema is likely secondary to left renal obstruction. Adrenal glands: There is bilateral adrenal gland thickening, likely secondary to adenomatous hyperpla adamaris Kidneys: There is a 7 mm left ureterovesical junction calculus with secondary left-sided hydrouretero nephrosis. There is a punctate cortical lower pole right renal calculus. No right-sided ureteral calc silvino are visualized. Bowel: There are no transition zones indicate bowel obstruction. There are multiple fluid-filled smal l bowel and colonic loops. There is no acute diverticulitis. There is no evidence of acute appendicit is. There are postsurgical changes of a gastric bypass. Peritoneum: There is no intraperitoneal free air or abdominal ascites. There are postsurgical changes of a prior ventral hernia repair Vasculature: There are extensive atherosclerotic calcifications throughout the abdomen. Adenopathy: None. Pelvic viscera: The uterus is surgically absent Skeletal structures: There are postsurgical changes of a left hip pinning. IMPRESSION: 1. 7 mm obstructing left ureterovesical junction calculus with secondary left hydroureteronephrosis 2. No evidence of bowel obstruction. No evidence of free air 3. No evidence of acute diverticulitis. No evidence of acute appendicitis. ACT 112: Negative or not required by law. Electronically signed by: Juan Pablo Man M.D. 06/21/2020 5:51 PM
[2020-06-21] MEDS ORDERED: HYDROmorphone INJ 0.5 MG/0.5 ML SYR IV PRN (17:57)
[2020-06-21] MEDS ORDERED: DAPTOMYCIN IV ONE (18:02)
[2020-06-21] MEDS ORDERED: PIPERACILL/TAZOBAC CONSULT ACTIVE PRN ×2 (18:02→21:06)
[2020-06-21] MEDS ORDERED: PIPERACILLIN/TAZOBACTAM 4.5 GM/120 ML BAG IV ONE (18:02)
[2020-06-21] MEDS ORDERED: SODIUM CHLORIDE 0.9% 1000ML 1,000 ML IV ONE ×2 (18:04→18:29)
[2020-06-21] MEDS ORDERED: dexAMETHasone**PF** 10 MG/ML VIAL IM ONE (18:25)
[2020-06-21] MEDS ORDERED: FAMOTIDINE 40 MG TABLET PO ONE (18:25)
[2020-06-21] MEDS ORDERED: diphenhydrAMINE Capsule 25 MG CAP PO ONE (18:31)
--- NOTE | 2020-06-21 18:45 | XRay Report ---
XR chest 1V portable CLINICAL HISTORY: Preoperative chest COMPARISON STUDY: 02/18/2020 FINDINGS: The heart remains borderline enlarged. There is aortic tortuosity/ectasia. There is a left subclavian dual-chamber central venous pacemaker. There is no failure. There is no focal pulmonary co nsolidation. There are no pleural effusions. Postsurgical changes involve the left shoulder.[ IMPRESSION: No active disease in the chest. ACT 112: Negative or not required by law. Electronically signed by: Juan Pablo Man M.D. 06/21/2020 6:44 PM
[2020-06-21] MEDS ORDERED: PROPOFOL IV EMULSION 10 MG/ML 20 ML VIAL IV ONE (18:47)
[2020-06-21] MEDS ORDERED: ONDANSETRON INJ 2 MG/ML 2 ML VIAL ONE (18:47)
--- NOTE | 2020-06-21 19:10 | Urology Consultation ---
Date of Consultation June 21, 2020 Assessment & Plan (1) Calculus of distal left ureter: (2) Sepsis: Plan is to place an urgent ureteral stent patient is consented awaiting Covid results to take the patient back for procedure History of Present Illness Reason for Consultation: Urosepsis and left ureteral stone History of Present Illness The patient is an 79-year-old female who 4 months ago fractured her left hip and has been rehabbing at [facility]. 2 days ago she began to develop Abdominal pain and today she began to develop fever.She was brought to the emergency room where she had a CAT scan that shows a 6 to 7 mm distal left ureteral stone.Patient has an elevated lactate and she is having a current temp of 37 6 and her blood pressure is 81/43. She does have nitrite positive urine and leukocyte Estrace positive as well. She does have a history of having urinary tract infections as she is a diabetic. Patient also has coronary artery disease and A. fib and takes Coumadin. Patient currently is confused she is in the room with her son who is given his history.Discussed the procedure of placing a stent urgently and explained the risks and the benefits including relief of obstruction which would hopefully help control urosepsis.When asked where the patient's pain currently is previously she told the hospitalist that it was in her left side currently she says is in her right lower quadrant.Of note the patient's lactate is 4.3 and white blood cell count is only 4.54 and creatinine is 1.55 Allergies Allergy/AdvReac Type Severity Reaction Status Date / Time adhesive Allergy Unknown ADHESIVE Verified 06/21/20 18:48 TAPE Home Medications Medication Instructions Recorded Confirmed Type metoprolol succinate 37.5 mg PO QAM 12/06/17 06/21/20 History ferrous sulfate 325 mg PO BID 11/08/18 06/21/20 History citalopram 40 mg PO QAM 03/13/19 06/21/20 History levothyroxine 50 mcg PO QAM 03/13/19 06/21/20 History digoxin 125 mcg PO 5XWK 10/10/19 06/21/20 History furosemide 20 mg PO QAM 10/10/19 06/21/20 History cyanocobalamin (vitamin B-12) 1,000 mcg IM MONTHLY 02/18/20 06/21/20 History nitroglycerin 0.4 mg SUBLINGUAL DIRECTED PRN 02/18/20 06/21/20 History acetaminophen 325 mg PO Q4 PRN MDD 3g 06/21/20 06/21/20 History clopidogrel 75 mg PO DAILY 06/21/20 06/21/20 History famotidine 20 mg PO DAILY 06/21/20 06/21/20 History insulin glargine [Lantus Solostar 12 unit SUBCUT QAM 06/21/20 06/21/20 History U-100 Insulin] multivitamin [Daily-Nori] 1 tab PO QAM 06/21/20 06/21/20 History oxycodone 5 mg PO Q8H PRN 06/21/20 06/21/20 History warfarin 4 mg PO ONCE 06/21/20 06/21/20 History Patient History Medical History (Updated 06/21/20 @ 19:16 by Stephen Ingram MD) Aortic root dilatation 4.4 cm on echo 01/2019 Asthma Atrial fibrillation Bifascicular block CAD (coronary artery disease) "1995 - PTCA and stenting of RCA 07/2011 - atherectomy and stenting RCA 12/2011- AZALIA to the mid LAD 2016-Cobra stent to mid LAD 2017-AZALIA to ostial diagonal Closed fracture of left hip Depression DM type 2 (diabetes mellitus, type 2) Dyslipidemia Fall Hematuria Hypothyroidism HOMERO (iron deficiency anemia) Macular degeneration MDS (myelodysplastic syndrome) Mild aortic stenosis Pacemaker Sinus node dysfunction Surgical History History of angioplasty History of arthroscopy of knee History of arthroscopy of shoulder History of cholecystectomy History of gastric bypass History of incisional hernia repair History of partial hysterectomy History of tonsillectomy Family History Father Colorectal cancer Sister Lung cancer Diabetes Brother Diabetes Mother Diabetes Social History Smoking Status: Never smoker Second Hand Exposure: No; Hx Alcohol Use: No Hx Substance Use: No Preferred Language: Vietnamese Communication Ability: Effective Visual Impairment: No Limitations Hearing Ability: Normal Proposal Review Analyst Required: No Beliefs That Will Affect Care: None marital status: / Current Living Situation: Family Current Living Situation Comment: Pt lives with her son, [id number], daughter, son-in-law, & 2 children current occupational status: retired How many Children do You have: 3 Feels Safe at Home: Yes Assistive Devices: Denture - Upper and Denture - Lower Review of Systems Review of Systems: Please review the admitting hospitalist history and physical for review of systems as well as the HPI Physical Exam Constitutional: + ill appearing Eyes: PERRL, conjunctivae normal, anicteric sclerae ENMT: Ears: + hearing impairment Neck: trachea midline, no thyromegaly Respiratory: normal respiratory effort Cardiovascular: Extremities: no edema Gastrointestinal (Abdomen): Percussion/Palpation: abdomen soft Some discomfort in the left lower quadrant but no guarding and no significant flank pain to percussion Musculoskeletal: Head/Neck/Chest: head atraumatic Skin: no rashes, warm and dry Neurologic: CN's II-XI intact bilaterally and + confused Psychiatric: Orientation: alert Thought Process: + tangential thought process Lymphatic: no cervical or axillary lymphadenopathy Results & Data ([facility]) Vital Signs (Past 12 Hours) Vital Signs Temp Pulse Resp BP Pulse Ox 06/21/20 19:00 72 18 81/43 L 97 06/21/20 18:59 71 24 86/45 L 96 06/21/20 18:50 69 25 H 77/39 L 96 06/21/20 18:47 15 78/40 L 96 06/21/20 18:40 70 29 H 77/47 L 96 06/21/20 18:34 67 17 82/51 L 95 06/21/20 18:30 67 17 74/44 L 95 06/21/20 18:27 69 25 H 84/40 L 06/21/20 18:26 73 25 H 78/40 L 06/21/20 18:21 67 23 75/40 L 97 06/21/20 18:02 70 16 79/36 L 96 06/21/20 18:00 67 22 75/43 L 96 06/21/20 17:30 74 20 84/45 L 92 06/21/20 17:27 71 23 78/42 L 94 06/21/20 16:46 101 H 30 H 115/54 L 97 06/21/20 16:32 94 06/21/20 16:30 96 H 25 H 108/36 L 95 06/21/20 16:24 37.6 C H 80 20 103/51 L 98 06/21/20 16:23 79 16 103/51 L 99 PG Care Time/CCT Total # of Minutes Spent Total Time Spent: 30 Total Time Spent with Patient: Total time spent is greater than 50% in coordination of care (as documented) at patient's floor/unit and/or counseling patient: Coding Level of Care Code 97822 Office/Outpt Visit, New Diagnoses Calculus of distal left ureter N20.1 Sepsis A41.9
[2020-06-21 19:12] LABS: Influenza A virus by PCR Negative (Neg); Influenza B virus by PCR Negative (Neg); RSV by PCR Negative (Neg); SARS CoV2 RNA(COVID-19) InHosp NEGATIVE (Negative)
[2020-06-21] MEDS ORDERED: STAT IV Infusion **Titration per Protocol STA (19:28)
[2020-06-21] MEDS ORDERED: MIDAZOLAM HCL 1 MG/ML 2ML VIAL ONE (19:28)
[2020-06-21] MEDS: SODIUM CHLORIDE 0.9% 1000ML 1,000 ML IV SCH (19:30)
[2020-06-21] MEDS: NOREPINEPHRINE/D5W 8 MG/508 ML BAG IV SCH (19:30)
--- NOTE | 2020-06-21 19:38 | Anesthesiology Consultation ---
Date of Service June 21, 2020 Assessment & Plan ASA [id number] Proposed Anesthesia Anesthesia Type: MAC Risk / Benefits Reviewed With: PT / POA / Parent / Guardian, Accepts Plan and Informed Consent Obtained Additional Comments: pt most recent echo reviewed. Pt is severely ill with urosepsis and hypotensive. Will proceed to OR because best course of action in removal of stone. History Surgery Operation Date: 06/21/20 19:00 Proposed Procedures p Ureteral Stent Insertion/Removal(Left) - Stephen Ingram MD Height/Weight Height: 5 ft 7 in Weight: 81 kg Allergies Allergy/AdvReac Type Severity Reaction Status Date / Time adhesive Allergy Unknown ADHESIVE Verified 06/21/20 18:48 TAPE Medications Home Medications Medication Instructions Recorded Confirmed Last Taken metoprolol succinate 37.5 mg PO QAM 12/06/17 06/21/20 06/21/20 08:30 ferrous sulfate 325 mg PO BID 11/08/18 06/21/20 06/21/20 08:30 citalopram 40 mg PO QAM 03/13/19 06/21/20 06/21/20 08:30 levothyroxine 50 mcg PO QAM 03/13/19 06/21/20 06/21/20 08:30 digoxin 125 mcg PO 5XWK 10/10/19 06/21/20 06/21/20 08:00 furosemide 20 mg PO QAM 10/10/19 06/21/20 06/21/20 08:30 cyanocobalamin (vitamin B-12) 1,000 mcg IM MONTHLY 02/18/20 06/21/20 06/14/20 nitroglycerin 0.4 mg SUBLINGUAL DIRECTED PRN 02/18/20 06/21/20 Unknown acetaminophen 325 mg PO Q4 PRN MDD 3g 06/21/20 06/21/20 Unknown clopidogrel 75 mg PO DAILY 06/21/20 06/21/20 06/21/20 08:30 famotidine 20 mg PO DAILY 06/21/20 06/21/20 06/21/20 08:30 insulin glargine [Lantus Solostar 12 unit SUBCUT QAM 06/21/20 06/21/20 06/21/20 08:30 U-100 Insulin] multivitamin [Daily-Nori] 1 tab PO QAM 06/21/20 06/21/20 06/21/20 08:30 oxycodone 5 mg PO Q8H PRN 06/21/20 06/21/20 Unknown warfarin 2 mg PO WE 06/21/20 06/21/20 Unknown warfarin 4 mg PO [id number] 06/21/20 06/21/20 06/21/20 08:30 Active Medications Generic Name Dose Route Start Last Admin Trade Name Freq PRN Reason Stop Dose Admin Sodium Chloride 1,000 mls @ 125 mls/hr 06/21/20 16:19 06/21/20 17:01 Nss 1000ml IV 06/22/20 00:18 125 mls/hr .Q8H STA Administration Past Medical History Medical History Aortic root dilatation 4.4 cm on echo 01/2019 Asthma Atrial fibrillation Bifascicular block CAD (coronary artery disease) "1995 - PTCA and stenting of RCA 07/2011 - atherectomy and stenting RCA 12/2011- AZALIA to the mid LAD 2016-Cobra stent to mid LAD 2017-AZALIA to ostial diagonal Closed fracture of left hip Depression DM type 2 (diabetes mellitus, type 2) Dyslipidemia Fall Hematuria Hypothyroidism HOMERO (iron deficiency anemia) Macular degeneration MDS (myelodysplastic syndrome) Mild aortic stenosis Pacemaker Sinus node dysfunction Exercise / Class Metabolic Activity II 4-5 Yardwork/Stairs/Walk up hill Past Family History Family History Father Colorectal cancer Sister Lung cancer Diabetes Brother Diabetes Mother Diabetes Past Surgical History Surgical History History of angioplasty History of arthroscopy of knee History of arthroscopy of shoulder History of cholecystectomy History of gastric bypass History of incisional hernia repair History of partial hysterectomy History of tonsillectomy Past Anesthesia History No Hx of Anesthesia Complications and No Family Hx of Anesthesia Complications History of PONV No Hx of PONV and No Hx of Motion Sickness Social History Smoking Status: Never smoker Hx Alcohol Use: No Alcohol type: beer alcohol intake frequency: holidays/special occasions only Hx Substance Use: No Review of Systems denies fever/cough/ colds/ chest pain/ SOB/ DEEPAK denies DEEPAK Physical Exam Vital Signs Last Vital Signs Temp 37.6 C H 06/21/20 16:24 Pulse 72 06/21/20 19:00 Resp 18 06/21/20 19:00 BP 81/43 L 06/21/20 19:00 Pulse Ox 97 06/21/20 19:00 ENMT Mouth: no TMJ abnormality and no dentition abnormality Thyromental Distance: > or= 3.5 Finger Breadths Mallampati Class: II Neck neck extension not limited Respiratory normal respiratory effort; no respiratory distress Auscultation: lungs clear to auscultation bilaterally Cardiovascular Rate/Rhythm: regular rate and regular rhythm Neurologic moves all extremities Psychiatric Orientation: alert and oriented x 3 Testing Laboratory Results 06/21/20 17:08 06/21/20 17:08 PT 20.3 Seconds (9.0-12.0) H 06/21/20 17:08 INR 2.1 (0.9-1.1) H 06/21/20 17:08 Urine Color Yellow 06/21/20 17:15 Urine Appearance Clear (Clear) 06/21/20 17:15 Urine pH 5.0 (4.5-7.5) 06/21/20 17:15 Ur Specific [place] 1.015 (1.000-1.030) 06/21/20 17:15 Urine Protein Negative (Negative) 06/21/20 17:15 Urine Glucose (UA) Negative (Negative) 06/21/20 17:15 Urine Ketones Negative (Negative) 06/21/20 17:15 Urine Nitrite Positive (Negative) A 06/21/20 17:15 Ur Leukocyte Esterase Trace (Negative) H 06/21/20 17:15 Urine WBC (Auto) 1-5 /hpf (0-5) 06/21/20 17:15 Urine RBC (Auto) 0-4 /hpf (0-4) 06/21/20 17:15 U Hyaline Cast (Auto) 0 /lpf (0-5) 06/21/20 17:15 U Epithel Cells (Auto) 0-5 /lpf (0-5) 06/21/20 17:15 Urine Bacteria (Auto) 1+ (Negative) H 06/21/20 17:15 Blood Type A Negative 06/21/20 17:08 Antibody Screen POSITIVE A 06/21/20 17:08 06/21/20 17:15 POC Glucose (other) 121 H
--- NOTE | 2020-06-21 19:43 | History & Physical Report ---
Date of Service June 21, 2020 Assessment & Plan (1) Septic shock: (2) Encephalopathy due to infection: (3) Calculus of distal left ureter: This is a 79-year-old female who has significant past medical history of persistent atrial fibrillation anticoagulated on warfarin, T2DM, CAD, SSS s/p pacer, HTN, HLD, hypothyroidism, asthma, aortic valve stenosis, chronic HFpEF, mitral valve stenosis, CKD 3, GERD, MDS, iron deficiency anemia who presents to ED secondary to fever and abdominal pain x2 days. Patient met septic shock criteria after evaluation in ED secondary to persistent hypotension despite fluid resuscitation, fever (101.6 at facility), lactic acidosis and elevated procalcitonin Source: Urosepsis secondary to 7 mm obstructive left UVJ stone with hydronephrosis She received broad-spectrum IV antibiotics with Zosyn and daptomycin Blood and urine cultures were obtained Case was discussed with small parts shaper operator TANGELA Rutherford and order placed to start Levophed Pt seen and evaluated at bedside by Urologist, Dr. Ingram and she is going for emergent stent placement Post operatively will admit to ICU for further close monitoring please refer to small parts shaper operator consultation for post op monitoring/assessment and plan (4) Acute worsening of stage 3 chronic kidney disease: baseline cr 0.9 bun/cr 21 and 1.55 Likely secondary to obstructive stone as well as persistent hypotension (5) CAD (coronary artery disease): Complex cardiac history with multiple coronary artery interventions, persistent atrial fibrillation on warfarin, SSS s/p PPM, mitral stenosis, aortic stenosis, pulmonary hypertension, chronic HFpEF and mild ischemic cardiomyopathy on Plavix, warfarin, metoprolol as outpatient Resume medications postoperatively when reevaluated and able to tolerate p.o. No chest pain or shortness of breath (6) Chronic heart failure with preserved ejection fraction (HFpEF): (7) Mild aortic stenosis: (8) Mitral stenosis: last echo 02/2020 EF 65 to 70%, grade 3 diastolic dysfunction with restrictive physiology, reduced RV systolic function, mild aortic stenosis, moderate mitral stenosis, severe left atrial enlargement, pulmonary hypertension, moderate TR Daily weights, strict I's and O's On the Toprol and Lasix as outpatient Monitor volume status closely secondary to vigorous resuscitation in setting of septic shock Resume Lasix post operatively when able (9) Atrial fibrillation: Rate controlled on metoprolol and digoxin, anticoagulated on warfarin INR 2.1 Resume warfarin postoperatively as soon as able (10) MDS (myelodysplastic syndrome): hx of HOMERO as well H&H stable at 10.9 and 32.8 On iron and vitamin B12 as outpatient (11) DM type 2 (diabetes mellitus, type 2): Last A1c 5.8 03/29/2020 Obtain A1c in a.m. Hold Lantus, hyperglycemic protocol per ICU Recommend loose control given age (12) Hypothyroidism: on levothyroxine as outpt resume post operatively when able (13) DVT prophylaxis: Warfarin, INR 2.1 Dispo: Emergent stent placement in OR then admit to ICU / to critical condition PCP: Dilia FULL CODE per son at bedside; however per epic records DNR ( will need to be readdressed post operatively) Pt is a [facility] [address] pt Pt was seen and examined in collaboration with Dr. Coleman, please see addendum History of Present Illness Chief Complaint: Fever and abdominal pain x 2 days. Primary Care Provider: Lzia Dobbs, DO This is a 79-year-old female who has significant past medical history of persistent atrial fibrillation anticoagulated on warfarin, T2DM, CAD, SSS s/p pacer, HTN, HLD, hypothyroidism, asthma, aortic valve stenosis, chronic HFpEF, mitral valve stenosis, CKD 3, GERD, MDS, iron deficiency anemia who presents to ED secondary to fever and abdominal pain x2 days. Patient resides at [facility] and reports abdominal pain for the past 2 days. Per nursing staff she also had fever and was pale. She was referred to ED due to concern for sepsis. Patient history difficult to obtain due to difficulty hearing and confusion. Son is at bedside. She had fever of 101.6 at nursing facility. In ED patient initially did not meet SIRS or sepsis criteria however as ER visit progressed she developed hypotension resistant to IV fluid resuscitation. She also had lactic acidosis, elevated procalcitonin and reported fever at facility. Urinalysis concerning for infection. CT abdomen pelvis reveals 7 mm obstructing left UVJ calculus with secondary left hydroureteronephrosis. Source likely urosepsis. She received 2 L of IV fluid in ED, IV daptomycin and Zosyn. Blood and urine cultures obtained. Despite fluid resuscitation blood pressure persisted systolically in the 80s. She was seen and evaluated by urology in emergency department at bedside who was taken for emergent stent placement. Allergies Allergy/AdvReac Type Severity Reaction Status Date / Time adhesive Allergy Unknown ADHESIVE Verified 06/21/20 18:48 TAPE Home Medications Medication Instructions Recorded Confirmed Type metoprolol succinate 37.5 mg PO QAM 12/06/17 06/21/20 History ferrous sulfate 325 mg PO BID 11/08/18 06/21/20 History citalopram 40 mg PO QAM 03/13/19 06/21/20 History levothyroxine 50 mcg PO QAM 03/13/19 06/21/20 History digoxin 125 mcg PO 5XWK 10/10/19 06/21/20 History furosemide 20 mg PO QAM 10/10/19 06/21/20 History cyanocobalamin (vitamin B-12) 1,000 mcg IM MONTHLY 02/18/20 06/21/20 History nitroglycerin 0.4 mg SUBLINGUAL DIRECTED PRN 02/18/20 06/21/20 History acetaminophen 325 mg PO Q4 PRN MDD 3g 06/21/20 06/21/20 History clopidogrel 75 mg PO DAILY 06/21/20 06/21/20 History famotidine 20 mg PO DAILY 06/21/20 06/21/20 History insulin glargine [Lantus Solostar 12 unit SUBCUT QAM 06/21/20 06/21/20 History U-100 Insulin] multivitamin [Daily-Nori] 1 tab PO QAM 06/21/20 06/21/20 History oxycodone 5 mg PO Q8H PRN 06/21/20 06/21/20 History warfarin 4 mg PO SUMOWEFRSA 06/21/20 06/21/20 History warfarin 6 mg PO TUTH 06/21/20 06/21/20 History Past Med/Surg History Medical History (Updated 06/21/20 @ 20:28 by Ravinder Espino MD) Aortic root dilatation 4.4 cm on echo 01/2019 Asthma Atrial fibrillation Bifascicular block CAD (coronary artery disease) "1995 - PTCA and stenting of RCA 07/2011 - atherectomy and stenting RCA 12/2011- AZALIA to the mid LAD 2016-Cobra stent to mid LAD 2017-AZALIA to ostial diagonal Closed fracture of left hip Depression DM type 2 (diabetes mellitus, type 2) Dyslipidemia Fall Hematuria Hypothyroidism HOMERO (iron deficiency anemia) Macular degeneration MDS (myelodysplastic syndrome) Mild aortic stenosis Pacemaker Sinus node dysfunction Surgical History History of angioplasty History of arthroscopy of knee History of arthroscopy of shoulder History of cholecystectomy History of gastric bypass History of incisional hernia repair History of partial hysterectomy History of tonsillectomy Family History Father Colorectal cancer Sister Lung cancer Diabetes Brother Diabetes Mother Diabetes Social History (Updated 06/21/20 @ 19:42 by Anna Torres PA-C) Smoking Status: Never smoker Second Hand Exposure: No; Hx Alcohol Use: No Hx Substance Use: No Preferred Language: Belarusian Communication Ability: Effective Visual Impairment: No Limitations Hearing Ability: Normal Utility Worker Driver Required: No Beliefs That Will Affect Care: None marital status: / Current Living Situation: Correction Current Living Situation Comment: [place] current occupational status: retired How many Children do You have: 3 Feels Safe at Home: Yes Assistive Devices: Denture - Upper and Denture - Lower Review of Systems Review of Systems: Unobtainable due to cognitive status Physical Exam Physical Exam: Constitutional: Elderly, pale, female, appears critically ill, very hard of hearing, answers questions but not always appropriate, Head: Normocephalic, Atraumatic Eyes: PERRL, conjunctivae normal, anicteric sclerae ENMT: external ear and nose normal, oropharynx normal dry mucous membranes Neck: trachea midline, no thyromegaly normal visual inspection Respiratory: normal respiratory effort, lungs clear to auscultation, no wheeze, rales, rhonchi. Normal insp/exp effort, no accessory muscle use Cardiovascular: IRR/IRR, + murmur, no edema Vessels: no JVD or carotid bruit Chest: normal inspection of chest Abdomen: normal bowel sounds, soft, nontender, no hepatosplenomegaly + L CVA tenderness Musculoskeletal: no cyanosis or clubbing, Skin: no rashes, warm and dry normal turgor Neurologic: PERRL, accommodation nl, no face palsy, no dysarthria CN's II-XI intact bilaterally and moves all extremities Psychiatric: A+O to self only, euthymic affect : deferred Results & Data Results & Data ([facility]) Vital Signs (Past 12 Hours) Vital Signs Temp Pulse Resp BP Pulse Ox 06/21/20 19:00 72 18 81/43 L 97 06/21/20 18:59 71 24 86/45 L 96 06/21/20 18:50 69 25 H 77/39 L 96 06/21/20 18:47 15 78/40 L 96 06/21/20 18:40 70 29 H 77/47 L 96 06/21/20 18:34 67 17 82/51 L 95 06/21/20 18:30 67 17 74/44 L 95 06/21/20 18:27 69 25 H 84/40 L 06/21/20 18:26 73 25 H 78/40 L 06/21/20 18:21 67 23 75/40 L 97 06/21/20 18:02 70 16 79/36 L 96 06/21/20 18:00 67 22 75/43 L 96 06/21/20 17:30 74 20 84/45 L 92 06/21/20 17:27 71 23 78/42 L 94 06/21/20 16:46 101 H 30 H 115/54 L 97 06/21/20 16:32 94 06/21/20 16:30 96 H 25 H 108/36 L 95 06/21/20 16:24 37.6 C H 80 20 103/51 L 98 06/21/20 16:23 79 16 103/51 L 99 Diagnostic Findings Abdomen/Pelvis CT 06/21/20 16:53 CT SCAN OF THE ABDOMEN AND PELVIS WITHOUT CONTRAST CLINICAL HISTORY: diffuse abd pain COMPARISON STUDY: February 2019 TECHNIQUE: CT scan of the abdomen and pelvis was performed from the lung bases to the proximal femurs. Images are reviewed in the axial, sagittal, and coronal planes. IV contrast was not administered for this examination. A dose lowering technique was utilized adhering to the principles of ALARA. CT DOSE: 718.58 mGy.cm FINDINGS: Lower chest: There is small hiatal hernia. There is a small amount of fluid within the distal esophagus. There are basilar atelectatic changes. There are right-sided pleural calcifications. There is trace left pleural fluid. The heart is enlarged. Pacemaker is visualized. Liver: There is no ductal dilatation. There is presumed focal fat adjacent the falciform ligament. Gallbladder: Not visualized presumed surgically absent. Spleen: Normal in size and attenuation. A splenule is visualized in the splenic hilar region. Pancreas: Pancreas is atrophic. There is no ductal dilatation. There is infiltration of fat at the level the pancreatic tail, medial to the spleen, posterior to the colon, and anterior to the left kidney. This edema is likely secondary to left renal obstruction. Adrenal glands: There is bilateral adrenal gland thickening, likely secondary to adenomatous hyperplasia Kidneys: There is a 7 mm left ureterovesical junction calculus with secondary left-sided hydroureteronephrosis. There is a punctate cortical lower pole right renal calculus. No right-sided ureteral calculi are visualized. Bowel: There are no transition zones indicate bowel obstruction. There are multiple fluid-filled small bowel and colonic loops. There is no acute diverticulitis. There is no evidence of acute appendicitis. There are postsurgical changes of a gastric bypass. Peritoneum: There is no intraperitoneal free air or abdominal ascites. There are postsurgical changes of a prior ventral hernia repair Vasculature: There are extensive atherosclerotic calcifications throughout the abdomen. Adenopathy: None. Pelvic viscera: The uterus is surgically absent Skeletal structures: There are postsurgical changes of a left hip pinning. IMPRESSION: 1. 7 mm obstructing left ureterovesical junction calculus with secondary left hydroureteronephrosis 2. No evidence of bowel obstruction. No evidence of free air 3. No evidence of acute diverticulitis. No evidence of acute appendicitis. ACT 112: Negative or not required by law. Electronically signed by: Juan Pablo Man M.D. 06/21/2020 5:51 PM Chest X-Ray 06/21/20 18:31 XR chest 1V portable CLINICAL HISTORY: Preoperative chest COMPARISON STUDY: 02/18/2020 FINDINGS: The heart remains borderline enlarged. There is aortic tortuosity/ectasia. There is a left subclavian dual-chamber central venous pacemaker. There is no failure. There is no focal pulmonary consolidation. There are no pleural effusions. Postsurgical changes involve the left shoulder.[ IMPRESSION: No active disease in the chest. ACT 112: Negative or not required by law. Electronically signed by: Juan Pablo Man M.D. 06/21/2020 6:44 PM Medications Administered Sodium Chloride (Nss 1000ml) 1,000 mls @ 125 mls/hr IV .Q8H STA Stop: 06/22/20 00:18 Last Admin: 06/21/20 17:01 Dose: 125 mls/hr Documented by: [id number] Discontinued Medications Dexamethasone Sodium Phosphate (DexamethasonePf 10 Mg/Ml Vial) 10 mg IM NOW ONE Stop: 06/21/20 18:26 Last Admin: 06/21/20 19:08 Dose: Not Given Documented by: [id number] Famotidine (Famotidine 40 Mg Tablet) 40 mg PO NOW ONE Stop: 06/21/20 18:26 Last Admin: 06/21/20 19:09 Dose: Not Given Documented by: [id number] Fentanyl Citrate (Fentanyl Citrate 100 Mcg/2 Ml Vial) 25 mcg IV Q15M PRN PRN Reason: Pain Stop: 07/05/20 16:52 Last Admin: 06/21/20 17:01 Dose: 25 mcg Documented by: [id number] Sodium Chloride (Nss 1000ml) 500 mls @ 999 mls/hr IV .Q31M ONE Stop: 06/21/20 17:23 Last Infusion: 06/21/20 18:31 Dose: 0 mls/hr Documented by: [id number] Admin: 06/21/20 17:01 Dose: 999 mls/hr Documented by: [id number] Piperacillin Sod/Tazobactam Sod (Zosyn) 4.5 gm in 120 mls @ 240 mls/hr IV NOW ONE Stop: 06/21/20 18:31 Last Admin: 06/21/20 18:30 Dose: 240 mls/hr Documented by: [id number] Daptomycin 480 mg/ Syringe 9.6 mls @ 4.8 mls/min IV ONE ONE; Protocol Stop: 06/21/20 18:03 Last Admin: 06/21/20 18:29 Dose: 4.8 mls/min Documented by: [id number] Sodium Chloride (Nss 1000ml) 1,000 mls @ 999 mls/hr IV .Q1H1M ONE Stop: 06/21/20 19:04 Last Admin: 06/21/20 18:30 Dose: 999 mls/hr Documented by: [id number] Sodium Chloride (Nss 1000ml) 500 mls @ 999 mls/hr IV .Q31M ONE Stop: 06/21/20 18:44 Last Admin: 06/21/20 18:30 Dose: 999 mls/hr Documented by: [id number] Ondansetron HCl (Ondansetron Inj 2 Mg/Ml 2 Ml Vial) 4 mg IV NOW STA Stop: 06/21/20 16:54 Last Admin: 06/21/20 17:00 Dose: 4 mg Documented by: [id number] COVID-19 Results Results COVID-19 Adm Lab Results: RBC 3.59 M/uL (4.2-5.4) L 06/21/20 WBC 4.54 K/uL (4.8-10.8) L 06/21/20 Hgb 10.9 g/dL (12.0-16.0) L 06/21/20 Hct 32.8 % (37-47) L 06/21/20 Plt Count 154 K/uL (130-400) 06/21/20 Neutrophils (%) (Auto) 98.3 % 06/21/20 Lymphocytes (%) (Auto) 1.3 % 06/21/20 Monocytes # (Auto) 0.02 K/uL (0.11-0.59) L 06/21/20 Eosinophils # (Auto) 0.00 K/uL (0-0.5) 06/21/20 Immature Granulocyte % (Auto) 0.0 % 06/21/20 Neutrophils # (Auto) 4.46 K/uL (1.4-6.5) 06/21/20 Lymphocytes # (Auto) 0.06 K/uL (1.2-3.4) L 06/21/20 Monocytes # (Auto) 0.02 K/uL (0.11-0.59) L 06/21/20 Eosinophils # (Auto) 0.00 K/uL (0-0.5) 06/21/20 Basophils # (Auto) 0.00 K/uL (0-0.2) 06/21/20 Immature Granulocyte # (Auto) 0.00 K/uL (0.00-0.02) 06/21/20 Na 140 mmol/L (136-145) 06/21/20 K 4.1 mmol/L (3.5-5.1) 06/21/20 Cl 107 mmol/L (98-107) 06/21/20 CO2 26 mmol/L (21-32) 06/21/20 Anion Gap 7.0 (3-11) 06/21/20 BUN 21 mg/dl (7-18) H 06/21/20 Creatinine 1.55 mg/dl (0.6-1.2) H 06/21/20 BUN/Creatinine Ratio 13.3 (10-20) 06/21/20 Glucose Level 120 mg/dl (70-99) H 06/21/20 Ca 7.9 mg/dl (8.5-10.1) L 06/21/20 Total Bilirubin 0.7 mg/dl (0.2-1) 06/21/20 AST/SGOT 27 U/L (15-37) 06/21/20 ALT/SGPT 16 U/L (12-78) 06/21/20 Alkaline Phosphatase 104 U/L (45-117) 06/21/20 Total Protein 6.0 gm/dl (6.4-8.2) L 06/21/20 Albumin 2.8 gm/dl (3.4-5.0) L 06/21/20 Globulin 3.2 gm/dl (2.5-4.0) 06/21/20 Albumin/Globulin Ratio 0.9 (0.9-2) 06/21/20 Procalcitonin 28.69 ng/ml (0-0.5) H 06/21/20 INR 2.1 (0.9-1.1) H 06/21/20 COVID-19 PCR NEGATIVE (Negative) 06/21/20 Influenza Virus Type A (PCR) Negative (Neg) 06/21/20 Influenza Virus Type B (PCR) Negative (Neg) 06/21/20 Chest X-Ray 06/21/20 Code Status & VTE Plan Code Status Full Code per son at bedside VTE Prophylaxis Plan VTE Prophylaxis will be ordered: No Supervising Physician Co-Signing Physician Notes Patient is an 79-year-old female with history of diabetes mellitus, coronary artery disease, hypothyroidism, CHF and other medical problems presents with history of fever, abdominal pain since 2 days duration. She denies any dysuria, hematuria. Please review HPI for complete details of presentation. CT abdomen showed left ureterovesical junction obstruction leading to left hydroureteronephrosis due to calculus. She was found to be hypotensive while in ED which did not respond to IV fluids. Also noted KATHY on CKD stage III. Her INR is therapeutic at 2.1. Urinalysis suggestive of possible UTI. On exam patient is ill-appearing, normocephalic atraumatic, pale, lungs are clear to auscultation, normal breath sounds, irregularly irregular rhythm,+ murmur, trace pedal edema, abd soft, left flank tenderness, normal bowel sounds, alert, awake, oriented, hearing impairment, grossly no focal neurologic deficits. Patient is admitted for management of septic shock secondary to complicated urinary UTI, obstructive uropathy. Patient was urgently taken to the OR for stent placement. Will start on broad-spectrum antibiotics. Aggressive IV fluids. Check lactate, procalcitonin levels. Will consult small parts shaper operator. Blood, urine cultures obtained. Avoid nephrotoxic agents as able. Monitor renal function. Bladder scan as needed. Will monitor INR and continue Coumadin. I personally reviewed the record. Patient is interviewed and examined at bedside. Patient's care is coordinated with Anna Torres PA-C. Please refer to the documentation above for details of patient's presentation and for discussion of other issues. (1) CAD (coronary artery disease) Associated angina: without angina Coronary Disease-Associated Artery/Lesion type: [place] artery [place] vs. transplanted heart: [place] heart Qualified Code(s): I25.10 - Atherosclerotic heart disease of [place] coronary artery without angina pectoris
[2020-06-21] MEDS ORDERED: ATROPINE SULFATE 0.1 MG/ML 10ML SYR IV PRN (19:47)
[2020-06-21] MEDS ORDERED: ePHEDrine sulfate 50 MG/ML AMP IV PRN (19:47)
[2020-06-21] MEDS ORDERED: ONDANSETRON INJ 2 MG/ML 2 ML VIAL IV PRN ×2 (19:47→21:06)
[2020-06-21] MEDS ORDERED: DIATRIZOATE MEGLUMINE 30% 100ML VIAL INSTIL ONE (20:24)
--- NOTE | 2020-06-21 20:27 | Post Operative Brief Note ---
PG Immediate Post Op with CF Date of Surgery June 21, 2020 Pre & Post Diagnosis Operation Date: 06/21/20 19:00 Pre-Op Diagnosis: Calculus of distal left ureter; Sepsis Post-Op Diagnosis: Calculus of distal left ureter; Sepsis I identified the patient and participated in the time-out.: Yes Procedure Operation Date: 06/21/20 19:00 Actual Procedures p Cystoscopy, Ureteroscopy, Ureteral Stent Insertion(Left) - Stephen Ingram MD Surgeon Stephen Ingram MD Veterinarian no Estimated Blood Loss 0 Findings Consistent with Post-Op Diagnosis Specimens Specimen Description: No specimen per surgeon. Drains Chaudhry Catheter
--- NOTE | 2020-06-21 20:38 | Emergency Department Note ---
Impression & Plan Hydronephrosis with renal and ureteral calculous obstruction, Sepsis, Acute UTI (urinary tract infection), Fever ED Provider Note INFORMANT: Patient, ED PROVIDER(S): Ravinder Espino MD CHIEF COMPLAINT: Abdominal pain PLAN: Disposition: Admitted Condition: Guarded Outpatient prescription management: none Referral: None MEDICAL DECISION MAKING: Patient presented to the emergency room complaining of abdominal pain. Initially her blood pressure was normal. She was very uncomfortable. She was given to IV fentanyl. She was started on IV fluids blood work, cultures, and urinalysis were obtained. Urinalysis raise some concerns for infection. The patient had an unremarkable CBC and chemistry panel. Her lactate was moderately elevated. She was found to have an obstructing left-sided ureteral stone. Additional pain medication was ordered however she only received the IV fentanyl in the ER. She was feeling better on reassessment. Her initial EKG was difficult to assess as she was very uncomfortable and moving. There was a lot of artifact. Cardiac monitoring appeared to have bigeminy. After she was more calm her cardiac monitoring revealed a sinus rhythm. Her blood pressure was noted to decrease slightly and she became mildly hypotensive. The patient was mentating well and was much more comfortable. She had more fluid ordered in addition to broad-spectrum antibiotics of Zosyn and daptomycin. The patient was ordered a 30 mL/kg bolus total. Consultation was made with urology, Dr. Ingram. He felt emergent stenting would be necessary and contacted the operating room. He asked for the hospitalist to be involved and I had already consulted them. I discussed the case with Dr. Coleman and Anna Torres PA-C. She was evaluated in the ER by the hospitalist service. The hospital service did contact critical care. They recommended initiation of Levophed and if possible central line placement. However, at that point the operating room and urology was ready for the patient and she was taken directly there for further treatment and management. The hospital service initiated Levophed peripherally. Triage Nursing notes reviewed and agree them. Additional history obtained from family Vital Signs: reviewed and remarkable for hypotension Differential diagnosis: Obstruction, ischemia, kidney stone, UTI, sepsis, pneumonia, metabolic, electrolyte abnormalities, cardiac sources, intracerebral event, toxicologic, neurologic, as well as other pathologies. Diagnostics interpreted by me: ECG: Twelve-lead ECG reveals an undetermined rhythm due to poor baseline data and artifact at 99 bpm. There appears to be a right bundle branch block. No clear ST elevation present. Cardiac Monitoring: Cardiac monitoring ordered by me: The patient was placed on continuous cardiac monitoring and observed. It revealed bigeminy initially at 102 beats per minute. On reassessment after the patient was comfortable and pain controlled she appeared to have a sinus rhythm with bundle branch block at 72 bpm. Imaging studies: CT scan revealed an obstructing left-sided stone with hydronephrosis. I refer you to the EMR for further details. Consultation(s): [facility] urology HPI: The patient is a 79 year old female who presents to the Emergency Room with complaints of abdominal pain. This started a few days ago by the patient's account however the states that she was doing well yesterday. Pain is described as sharp and generalized. The patient was referred from her care fac [facility] with concerns about possible UTI. She was noted to have a fever and nausea. The patient was also noting having some bloody stool. She was given no medication. Current pain is rated as 10/10. Pt denies LOC, headache, diaphoresis, visual changes, neck pain, chest pain, breathing difficulties, nausea, vomiting, back pain, urinary symptoms, numbness, weakness, lymphadenopathy, rash, or other complaints. ROS: See above HPI for pertinent positives & negatives. A total of 10 systems reviewed and were otherwise negative. PAST MEDICAL HISTORY:See Below , diabetes, MDS PAST SURGICAL HISTORY:See Below, gastric bypass FAMILY HISTORY:See Below SOCIAL HISTORY:See Below, HOME MEDICATIONS:See Below ALLERGIES:See Below VITALS:See Below PHYSICAL EXAMINATION: GENERAL: Awake, alert, very uncomfortable-appearing, in moderate distress HENT: Normocephalic, atraumatic. Oropharynx unremarkable. EYES: Pale conjunctiva. Sclera non-icteric. NECK: Inspection normal. Non-tender. Supple. No nuchal rigidity. FROM. No masses. RESPIRATORY: Clear to auscultation. No wheezes. No rales. Normal respiratory effort. CARDIAC: Borderline tachycardic rate. Normal rhythm. Systolic ejection murmurs. No rubs. Extremities warm and well perfused. Pulses equal. No JVD. GI: Soft, non-distended. Left-sided tenderness to palpation. No rebound or guarding. No masses. RECTAL: Brown stool. Hemoccult negative. MUSCULOSKELETAL: Atraumatic. Chest examination reveals no tenderness. The back is symmetrical on inspection without obvious abnormality. There is no CVA tenderness to palpation. No joint edema. LOWER EXTREMITIES: Calves are equal size bilaterally and non-tender. 1+ edema. No discoloration. NEURO: Mildly confused sensorium. No sensory or motor deficits noted. SKIN: No rash or jaundice noted. ED COURSE: Critical Care: I have personally spent greater than 40 minutes of critical care time in the direct management of this patient. This includes bedside care, interpretation of diagnostic studies, and testing, discussion with consultants, patient, and family members, and other required patient management activities. These minutes are in excess of all separately billable procedures. Ravinder Espino MD Past Med/Surg History Medical History (Updated 06/21/20 @ 20:28 by Ravinder Espino MD) Aortic root dilatation 4.4 cm on echo 01/2019 Asthma Atrial fibrillation Bifascicular block CAD (coronary artery disease) "1995 - PTCA and stenting of RCA 07/2011 - atherectomy and stenting RCA 12/2011- AZALIA to the mid LAD 2016-Cobra stent to mid LAD 2018-AZALIA to ostial diagonal Closed fracture of left hip Depression DM type 2 (diabetes mellitus, type 2) Dyslipidemia Fall Hematuria Hypothyroidism HOMERO (iron deficiency anemia) Macular degeneration MDS (myelodysplastic syndrome) Mild aortic stenosis Pacemaker Sinus node dysfunction Surgical History History of angioplasty History of arthroscopy of knee History of arthroscopy of shoulder History of cholecystectomy History of gastric bypass History of incisional hernia repair History of partial hysterectomy History of tonsillectomy Family History Father Colorectal cancer Sister Lung cancer Diabetes Brother Diabetes Mother Diabetes Social History (Updated 06/21/20 @ 19:42 by Anna Torres PA-C) Smoking Status: Never smoker Second Hand Exposure: No; Hx Alcohol Use: No Hx Substance Use: No Preferred Language: Greenlandic Communication Ability: Effective Visual Impairment: No Limitations Hearing Ability: Normal Operator Receptionist Required: No Beliefs That Will Affect Care: None marital status: / Current Living Situation: [facility] Current Living Situation Comment: [facility] current occupational status: retired How many Children do You have: 3 Feels Safe at Home: Yes Assistive Devices: Denture - Upper and Denture - Lower Allergies Allergies Allergy/AdvReac Type Severity Reaction Status Date / Time adhesive Allergy Unknown ADHESIVE Verified 06/21/20 18:48 TAPE Home Meds Home Medications Medication Instructions Recorded Confirmed metoprolol succinate 37.5 mg PO QAM 12/06/17 06/21/20 ferrous sulfate 325 mg PO BID 11/08/18 06/21/20 citalopram 40 mg PO QAM 03/13/19 06/21/20 levothyroxine 50 mcg PO QAM 03/13/19 06/21/20 digoxin 125 mcg PO [id number] 10/10/19 06/21/20 furosemide 20 mg PO QAM 10/10/19 06/21/20 cyanocobalamin (vitamin B-12) 1,000 mcg IM MONTHLY 02/18/20 06/21/20 nitroglycerin 0.4 mg SUBLINGUAL DIRECTED PRN 02/18/20 06/21/20 acetaminophen 325 mg PO Q4 PRN MDD 3g 06/21/20 06/21/20 clopidogrel 75 mg PO DAILY 06/21/20 06/21/20 famotidine 20 mg PO DAILY 06/21/20 06/21/20 insulin glargine [Lantus Solostar 12 unit SUBCUT QAM 06/21/20 06/21/20 U-100 Insulin] multivitamin [Daily-Nori] 1 tab PO QAM 06/21/20 06/21/20 oxycodone 5 mg PO Q8H PRN 06/21/20 06/21/20 warfarin 4 mg PO SUMOWEFRSA 06/21/20 06/21/20 warfarin 6 mg PO TUTH 06/21/20 06/21/20 Results & Data (ED) Vital Signs Vital Signs - 24 hr 06/21/20 16:23 06/21/20 16:24 06/21/20 16:30 Temperature 37.6 C H Temperature Source Oral Pulse Rate 79 80 96 H Pulse Rate from SpO2 Sensor 82 82 Respiratory Rate 16 20 25 H Blood Pressure 103/51 L 103/51 L 108/36 L Blood Pressure Mean 68 68 60 Pulse Oximetry 99 98 95 Oxygen Delivery Method Room Air Sepsis Recent Fever Within 48 Hours No Sepsis New/Unexplained Change in Mental Status N/A Sepsis Action Taken by Nursing No Action Required 06/21/20 16:32 06/21/20 16:46 06/21/20 17:27 Temperature Temperature Source Pulse Rate 101 H 71 Pulse Rate from SpO2 Sensor 46 L 70 Respiratory Rate 30 H 23 Blood Pressure 115/54 L 78/42 L Blood Pressure Mean 74 54 Pulse Oximetry 94 97 94 Oxygen Delivery Method Room Air Sepsis Recent Fever Within 48 Hours Sepsis New/Unexplained Change in Mental Status Sepsis Action Taken by Nursing 06/21/20 17:30 06/21/20 18:00 06/21/20 18:02 Temperature Temperature Source Pulse Rate 74 67 70 Pulse Rate from SpO2 Sensor 75 65 70 Respiratory Rate 20 22 16 Blood Pressure 84/45 L 75/43 L 79/36 L Blood Pressure Mean 58 53 50 Pulse Oximetry 92 96 96 Oxygen Delivery Method Sepsis Recent Fever Within 48 Hours Sepsis New/Unexplained Change in Mental Status Sepsis Action Taken by Nursing 06/21/20 18:21 06/21/20 18:26 06/21/20 18:27 Temperature Temperature Source Pulse Rate 67 73 69 Pulse Rate from SpO2 Sensor 71 Respiratory Rate 23 25 H 25 H Blood Pressure 75/40 L 78/40 L 84/40 L Blood Pressure Mean 51 52 54 Pulse Oximetry 97 Oxygen Delivery Method Sepsis Recent Fever Within 48 Hours Sepsis New/Unexplained Change in Mental Status Sepsis Action Taken by Nursing 06/21/20 18:30 06/21/20 18:34 06/21/20 18:40 Temperature Temperature Source Pulse Rate 67 67 70 Pulse Rate from SpO2 Sensor 69 60 69 Respiratory Rate 17 17 29 H Blood Pressure 74/44 L 82/51 L 77/47 L Blood Pressure Mean 54 61 57 Pulse Oximetry 95 95 96 Oxygen Delivery Method Sepsis Recent Fever Within 48 Hours Sepsis New/Unexplained Change in Mental Status Sepsis Action Taken by Nursing 06/21/20 18:47 06/21/20 18:50 06/21/20 18:59 Temperature Temperature Source Pulse Rate 69 71 Pulse Rate from SpO2 Sensor 63 68 68 Respiratory Rate 15 25 H 24 Blood Pressure 78/40 L 77/39 L 86/45 L Blood Pressure Mean 52 51 58 Pulse Oximetry 96 96 96 Oxygen Delivery Method Sepsis Recent Fever Within 48 Hours Sepsis New/Unexplained Change in Mental Status Sepsis Action Taken by Nursing 06/21/20 19:00 Temperature Temperature Source Pulse Rate 72 Pulse Rate from SpO2 Sensor 69 Respiratory Rate 18 Blood Pressure 81/43 L Blood Pressure Mean 55 Pulse Oximetry 97 Oxygen Delivery Method Sepsis Recent Fever Within 48 Hours Sepsis New/Unexplained Change in Mental Status Sepsis Action Taken by Nursing Laboratory Data Result diagrams: 06/21/20 17:08 06/21/20 17:08 Lab Results 06/21/20 06/21/20 06/21/20 Range/Units 17:08 17:08 17:08 WBC 4.54 L (4.8-10.8) K/uL RBC 3.59 L (4.2-5.4) M/uL Hgb 10.9 L (12.0-16.0) g/dL POC Hgb (12.0-16.0) g/dl Hct 32.8 L (37-47) % POC Hct (37-47) % MCV 91.4 (80-100) fL MCH 30.4 (25-34) pg MCHC 33.2 (32-36) g/dL RDW Std Deviation 47.0 H (36.4-46.3) fL RDW Coeff of Gaston 14.2 (11.5-14.5) % Plt Count 154 (130-400) K/uL MPV 10.2 (7.4-10.4) fL Immature Gran % (Auto) 0.0 % Neut % (Auto) 98.3 % Lymph % (Auto) 1.3 % [place] % (Auto) 0.4 % Eos % (Auto) 0.0 % Baso % (Auto) 0.0 % Neut # (Auto) 4.46 (1.4-6.5) K/uL Lymph # (Auto) 0.06 L (1.2-3.4) K/uL [place] # (Auto) 0.02 L (0.11-0.59) K/uL Eos # (Auto) 0.00 (0-0.5) K/uL Baso # (Auto) 0.00 (0-0.2) K/uL Immature Gran # (Auto) 0.00 (0.00-0.02) K/uL PT (9.0-12.0) Seconds INR (0.9-1.1) POC Sodium (135-144) mmol/L Sodium 140 (136-145) mmol/L POC Potassium (3.3-5.0) mmol/L Potassium 4.1 (3.5-5.1) mmol/L POC Chloride (101-112) mmol/L Chloride 107 (98-107) mmol/L Carbon Dioxide 26 (21-32) mmol/L POC Total CO2 (24-31) mmol/L Anion Gap 7.0 (3-11) POC Anion Gap (16-25) mmol/L POC BUN (7-18) mg/dl BUN 21 H (7-18) mg/dl Creatinine 1.55 H (0.6-1.2) mg/dl POC Creatinine (0.6-1.3) mg/dl Est Cr Clr Drug Dosing 31.2 ml/min Est GFR ( Amer) 36.0 Est GFR (Non-Af Amer) 31.1 BUN/Creatinine Ratio 13.3 (10-20) Glucose 120 H (70-99) mg/dl POC Glucose (other) (70-99) mg/dl Lactate 4.3 H* (0.4-2.0) mmol/L Calcium 7.9 L (8.5-10.1) mg/dl POC Ioniz Calcium Betsy (1.12-1.32) mmol/l Total Bilirubin 0.7 (0.2-1) mg/dl AST 27 (15-37) U/L ALT 16 (12-78) U/L Alkaline Phosphatase 104 (45-117) U/L Total Protein 6.0 L (6.4-8.2) gm/dl Albumin 2.8 L (3.4-5.0) gm/dl Globulin 3.2 (2.5-4.0) gm/dl Albumin/Globulin Ratio 0.9 (0.9-2) Lipase 39 L (73-393) U/L Procalcitonin (0-0.5) ng/ml Urine Color Urine Appearance (Clear) Urine pH (4.5-7.5) Ur Specific [place] (1.000-1.030) Urine Protein (Negative) Urine Glucose (UA) (Negative) Urine Ketones (Negative) Urine Blood (Negative) Urine Nitrite (Negative) Urine Bilirubin (Negative) Urine Urobilinogen (Negative) Ur Leukocyte Esterase (Negative) Urine WBC (Auto) (0-5) /hpf Urine RBC (Auto) (0-4) /hpf U Hyaline Cast (Auto) (0-5) /lpf U Epithel Cells (Auto) (0-5) /lpf Urine Bacteria (Auto) (Negative) Urine Crystals Calcium Oxalate Crystal (None Prsent) COVID-19 Eval Order SARS-CoV-2 (PCR) (Negative) Influenza Type A (PCR) (Neg) Influenza Type B (PCR) (Neg) RSV (RT-PCR) (Neg) Blood Type Antibody Screen Antibody Identification 06/21/20 06/21/20 06/21/20 Range/Units 17:08 17:08 17:08 WBC (4.8-10.8) K/uL RBC (4.2-5.4) M/uL Hgb (12.0-16.0) g/dL POC Hgb (12.0-16.0) g/dl Hct (37-47) % POC Hct (37-47) % MCV (80-100) fL MCH (25-34) pg MCHC (32-36) g/dL RDW Std Deviation (36.4-46.3) fL RDW Coeff of [place]aston (11.5-14.5) % Plt Count (130-400) K/uL MPV (7.4-10.4) fL Immature Gran % (Auto) % Neut % (Auto) % Lymph % (Auto) % [place] % (Auto) % Eos % (Auto) % Baso % (Auto) % Neut # (Auto) (1.4-6.5) K/uL Lymph # (Auto) (1.2-3.4) K/uL [place] # (Auto) (0.11-0.59) K/uL Eos # (Auto) (0-0.5) K/uL Baso # (Auto) (0-0.2) K/uL Immature Gran # (Auto) (0.00-0.02) K/uL PT 20.3 H (9.0-12.0) Seconds INR 2.1 H (0.9-1.1) POC Sodium (135-144) mmol/L Sodium (136-145) mmol/L POC Potassium (3.3-5.0) mmol/L Potassium (3.5-5.1) mmol/L POC Chloride (101-112) mmol/L Chloride (98-107) mmol/L Carbon Dioxide (21-32) mmol/L POC Total CO2 (24-31) mmol/L Anion Gap (3-11) POC Anion Gap (16-25) mmol/L POC BUN (7-18) mg/dl BUN (7-18) mg/dl Creatinine (0.6-1.2) mg/dl POC Creatinine (0.6-1.3) mg/dl Est Cr Clr Drug Dosing ml/min Est GFR ( Amer) Est GFR (Non-Af Amer) BUN/Creatinine Ratio (10-20) Glucose (70-99) mg/dl POC Glucose (other) (70-99) mg/dl Lactate (0.4-2.0) mmol/L Calcium (8.5-10.1) mg/dl POC Ioniz Calcium [place] (1.12-1.32) mmol/l Total Bilirubin (0.2-1) mg/dl AST (15-37) U/L ALT (12-78) U/L Alkaline Phosphatase (45-117) U/L Total Protein (6.4-8.2) gm/dl Albumin (3.4-5.0) gm/dl Globulin (2.5-4.0) gm/dl Albumin/Globulin Ratio (0.9-2) Lipase (73-393) U/L Procalcitonin 28.69 H (0-0.5) ng/ml Urine Color Urine Appearance (Clear) Urine pH (4.5-7.5) Ur Specific [place] (1.000-1.030) Urine Protein (Negative) Urine Glucose (UA) (Negative) Urine Ketones (Negative) Urine Blood (Negative) Urine Nitrite (Negative) Urine Bilirubin (Negative) Urine Urobilinogen (Negative) Ur Leukocyte Esterase (Negative) Urine WBC (Auto) (0-5) /hpf Urine RBC (Auto) (0-4) /hpf U Hyaline Cast (Auto) (0-5) /lpf U Epithel Cells (Auto) (0-5) /lpf Urine Bacteria (Auto) (Negative) Urine Crystals Calcium Oxalate Crystal (None Prsent) COVID-19 Eval Order SARS-CoV-2 (PCR) (Negative) Influenza Type A (PCR) (Neg) Influenza Type B (PCR) (Neg) RSV (RT-PCR) (Neg) Blood Type A Negative Antibody Screen POSITIVE A Antibody Identification Anti-D 06/21/20 06/21/20 06/21/20 Range/Units 17:15 17:15 17:25 WBC (4.8-10.8) K/uL RBC (4.2-5.4) M/uL Hgb (12.0-16.0) g/dL POC Hgb 10.9 L (12.0-16.0) g/dl Hct (37-47) % POC Hct 32 L (37-47) % MCV (80-100) fL MCH (25-34) pg MCHC (32-36) g/dL RDW Std Deviation (36.4-46.3) fL RDW Coeff of Gaston (11.5-14.5) % Plt Count (130-400) K/uL MPV (7.4-10.4) fL Immature Gran % (Auto) % Neut % (Auto) % Lymph % (Auto) % [place] % (Auto) % Eos % (Auto) % Baso % (Auto) % Neut # (Auto) (1.4-6.5) K/uL Lymph # (Auto) (1.2-3.4) K/uL [place] # (Auto) (0.11-0.59) K/uL Eos # (Auto) (0-0.5) K/uL Baso # (Auto) (0-0.2) K/uL Immature Gran # (Auto) (0.00-0.02) K/uL PT (9.0-12.0) Seconds INR (0.9-1.1) POC Sodium 138 (135-144) mmol/L Sodium (136-145) mmol/L POC Potassium 4.1 (3.3-5.0) mmol/L Potassium (3.5-5.1) mmol/L POC Chloride 103 (101-112) mmol/L Chloride (98-107) mmol/L Carbon Dioxide (21-32) mmol/L POC Total CO2 23 L (24-31) mmol/L Anion Gap (3-11) POC Anion Gap 17.0 (16-25) mmol/L POC BUN 19 H (7-18) mg/dl BUN (7-18) mg/dl Creatinine (0.6-1.2) mg/dl POC Creatinine 1.5 H (0.6-1.3) mg/dl Est Cr Clr Drug Dosing ml/min Est GFR ( Amer) Est GFR (Non-Af Amer) BUN/Creatinine Ratio (10-20) Glucose (70-99) mg/dl POC Glucose (other) 121 H (70-99) mg/dl Lactate (0.4-2.0) mmol/L Calcium (8.5-10.1) mg/dl POC Ioniz Calcium Betsy 1.09 L (1.12-1.32) mmol/l Total Bilirubin (0.2-1) mg/dl AST (15-37) U/L ALT (12-78) U/L Alkaline Phosphatase (45-117) U/L Total Protein (6.4-8.2) gm/dl Albumin (3.4-5.0) gm/dl Globulin (2.5-4.0) gm/dl Albumin/Globulin Ratio (0.9-2) Lipase (73-393) U/L Procalcitonin (0-0.5) ng/ml Urine Color Yellow Urine Appearance Clear (Clear) Urine pH 5.0 (4.5-7.5) Ur Specific [place] 1.015 (1.000-1.030) Urine Protein Negative (Negative) Urine Glucose (UA) Negative (Negative) Urine Ketones Negative (Negative) Urine Blood 3+ H (Negative) Urine Nitrite Positive A (Negative) Urine Bilirubin Negative (Negative) Urine Urobilinogen Negative (Negative) Ur Leukocyte Esterase Trace H (Negative) Urine WBC (Auto) 1-5 (0-5) /hpf Urine RBC (Auto) 0-4 (0-4) /hpf U Hyaline Cast (Auto) 0 (0-5) /lpf U Epithel Cells (Auto) 0-5 (0-5) /lpf Urine Bacteria (Auto) 1+ H (Negative) Urine Crystals Not Reportable Calcium Oxalate Crystal Present A (None Prsent) COVID-19 Eval Order CovFluRsv at [facility] SARS-CoV-2 (PCR) (Negative) Influenza Type A (PCR) (Neg) Influenza Type B (PCR) (Neg) RSV (RT-PCR) (Neg) Blood Type Antibody Screen Antibody Identification 06/21/20 06/21/20 Range/Units 17:25 19:31 WBC (4.8-10.8) K/uL RBC (4.2-5.4) M/uL Hgb (12.0-16.0) g/dL POC Hgb (12.0-16.0) g/dl Hct (37-47) % POC Hct (37-47) % MCV (80-100) fL MCH (25-34) pg MCHC (32-36) g/dL RDW Std Deviation (36.4-46.3) fL RDW Coeff of [place]aston (11.5-14.5) % Plt Count (130-400) K/uL MPV (7.4-10.4) fL Immature Gran % (Auto) % Neut % (Auto) % Lymph % (Auto) % [place] % (Auto) % Eos % (Auto) % Baso % (Auto) % Neut # (Auto) (1.4-6.5) K/uL Lymph # (Auto) (1.2-3.4) K/uL [place] # (Auto) (0.11-0.59) K/uL Eos # (Auto) (0-0.5) K/uL Baso # (Auto) (0-0.2) K/uL Immature Gran # (Auto) (0.00-0.02) K/uL PT (9.0-12.0) Seconds INR (0.9-1.1) POC Sodium (135-144) mmol/L Sodium (136-145) mmol/L POC Potassium (3.3-5.0) mmol/L Potassium (3.5-5.1) mmol/L POC Chloride (101-112) mmol/L Chloride (98-107) mmol/L Carbon Dioxide (21-32) mmol/L POC Total CO2 (24-31) mmol/L Anion Gap (3-11) POC Anion Gap (16-25) mmol/L POC BUN (7-18) mg/dl BUN (7-18) mg/dl Creatinine (0.6-1.2) mg/dl POC Creatinine (0.6-1.3) mg/dl Est Cr Clr Drug Dosing ml/min Est GFR ( Amer) Est GFR (Non-Af Amer) BUN/Creatinine Ratio (10-20) Glucose (70-99) mg/dl POC Glucose (other) (70-99) mg/dl Lactate 2.8 H* (0.4-2.0) mmol/L Calcium (8.5-10.1) mg/dl POC Ioniz Calcium Betsy (1.12-1.32) mmol/l Total Bilirubin (0.2-1) mg/dl AST (15-37) U/L ALT (12-78) U/L Alkaline Phosphatase (45-117) U/L Total Protein (6.4-8.2) gm/dl Albumin (3.4-5.0) gm/dl Globulin (2.5-4.0) gm/dl Albumin/Globulin Ratio (0.9-2) Lipase (73-393) U/L Procalcitonin (0-0.5) ng/ml Urine Color Urine Appearance (Clear) Urine pH (4.5-7.5) Ur Specific [place] (1.000-1.030) Urine Protein (Negative) Urine Glucose (UA) (Negative) Urine Ketones (Negative) Urine Blood (Negative) Urine Nitrite (Negative) Urine Bilirubin (Negative) Urine Urobilinogen (Negative) Ur Leukocyte Esterase (Negative) Urine WBC (Auto) (0-5) /hpf Urine RBC (Auto) (0-4) /hpf U Hyaline Cast (Auto) (0-5) /lpf U Epithel Cells (Auto) (0-5) /lpf Urine Bacteria (Auto) (Negative) Urine Crystals Calcium Oxalate Crystal (None Prsent) COVID-19 Eval Order SARS-CoV-2 (PCR) NEGATIVE (Negative) Influenza Type A (PCR) Negative (Neg) Influenza Type B (PCR) Negative (Neg) RSV (RT-PCR) Negative (Neg) Blood Type Antibody Screen Antibody Identification Administered Medications Sodium Chloride (Nss 1000ml) 1,000 mls @ 125 mls/hr IV .Q8H STA Stop: 06/22/20 00:18 Last Admin: 06/21/20 17:01 Dose: 125 mls/hr Documented by: [id number] Discontinued Medications Dexamethasone Sodium Phosphate (DexamethasonePf 10 Mg/Ml Vial) 10 mg IM NOW ONE Stop: 06/21/20 18:26 Last Admin: 06/21/20 19:08 Dose: Not Given Documented by: [id number] Diatrizoate Meglumine (Diatrizoate Meglumine 30% 100ml Vial) 3 ml INSTIL ONCE ONE Stop: 06/21/20 20:25 Last Admin: 06/21/20 20:22 Dose: 3 ml Documented by: [id number] Famotidine (Famotidine 40 Mg Tablet) 40 mg PO NOW ONE Stop: 06/21/20 18:26 Last Admin: 06/21/20 19:09 Dose: Not Given Documented by: [id number] Fentanyl Citrate (Fentanyl Citrate 100 Mcg/2 Ml Vial) 25 mcg IV Q15M PRN PRN Reason: Pain Stop: 07/05/20 16:52 Last Admin: 06/21/20 17:01 Dose: 25 mcg Documented by: [id number] Sodium Chloride (Nss 1000ml) 500 mls @ 999 mls/hr IV .Q31M ONE Stop: 06/21/20 17:23 Last Infusion: 06/21/20 18:31 Dose: 0 mls/hr Documented by: [id number] Admin: 06/21/20 17:01 Dose: 999 mls/hr Documented by: [id number] Piperacillin Sod/Tazobactam Sod (Zosyn) 4.5 gm in 120 mls @ 240 mls/hr IV NOW ONE Stop: 06/21/20 18:31 Last Admin: 06/21/20 18:30 Dose: 240 mls/hr Documented by: [id number] Daptomycin 480 mg/ Syringe 9.6 mls @ 4.8 mls/min IV ONE ONE; Protocol Stop: 06/21/20 18:03 Last Admin: 06/21/20 18:29 Dose: 4.8 mls/min Documented by: [id number] Sodium Chloride (Nss 1000ml) 1,000 mls @ 999 mls/hr IV .Q1H1M ONE Stop: 06/21/20 19:04 Last Admin: 06/21/20 18:30 Dose: 999 mls/hr Documented by: [id number] Sodium Chloride (Nss 1000ml) 500 mls @ 999 mls/hr IV .Q31M ONE Stop: 06/21/20 18:44 Last Admin: 06/21/20 18:30 Dose: 999 mls/hr Documented by: [id number] Ondansetron HCl (Ondansetron Inj 2 Mg/Ml 2 Ml Vial) 4 mg IV NOW STA Stop: 06/21/20 16:54 Last Admin: 06/21/20 17:00 Dose: 4 mg Documented by: [id number] Imaging Data Radiologist's Impression: Abdomen/Pelvis CT 06/21/20 16:53 CT SCAN OF THE ABDOMEN AND PELVIS WITHOUT CONTRAST CLINICAL HISTORY: diffuse abd pain COMPARISON STUDY: February 2019 TECHNIQUE: CT scan of the abdomen and pelvis was performed from the lung bases to the proximal femurs. Images are reviewed in the axial, sagittal, and coronal planes. IV contrast was not administered for this examination. A dose lowering technique was utilized adhering to the principles of ALARA. CT DOSE: 718.58 mGy.cm FINDINGS: Lower chest: There is small hiatal hernia. There is a small amount of fluid within the distal esophagus. There are basilar atelectatic changes. There are right-sided pleural calcifications. There is trace left pleural fluid. The heart is enlarged. Pacemaker is visualized. Liver: There is no ductal dilatation. There is presumed focal fat adjacent the falciform ligament. Gallbladder: Not visualized presumed surgically absent. Spleen: Normal in size and attenuation. A splenule is visualized in the splenic hilar region. Pancreas: Pancreas is atrophic. There is no ductal dilatation. There is infiltration of fat at the level the pancreatic tail, medial to the spleen, posterior to the colon, and anterior to the left kidney. This edema is likely secondary to left renal obstruction. Adrenal glands: There is bilateral adrenal gland thickening, likely secondary to adenomatous hyperplasia Kidneys: There is a 7 mm left ureterovesical junction calculus with secondary left-sided hydroureteronephrosis. There is a punctate cortical lower pole right renal calculus. No right-sided ureteral calculi are visualized. Bowel: There are no transition zones indicate bowel obstruction. There are multiple fluid-filled small bowel and colonic loops. There is no acute diverticulitis. There is no evidence of acute appendicitis. There are postsurgical changes of a gastric bypass. Peritoneum: There is no intraperitoneal free air or abdominal ascites. There are postsurgical changes of a prior ventral hernia repair Vasculature: There are extensive atherosclerotic calcifications throughout the abdomen. Adenopathy: None. Pelvic viscera: The uterus is surgically absent Skeletal structures: There are postsurgical changes of a left hip pinning. IMPRESSION: 1. 7 mm obstructing left ureterovesical junction calculus with secondary left hydroureteronephrosis 2. No evidence of bowel obstruction. No evidence of free air 3. No evidence of acute diverticulitis. No evidence of acute appendicitis. ACT 112: Negative or not required by law. Electronically signed by: Juan Pablo Man M.D. 06/21/2020 5:51 PM Chest X-Ray 06/21/20 18:31 XR chest 1V portable CLINICAL HISTORY: Preoperative chest COMPARISON STUDY: 02/18/2020 FINDINGS: The heart remains borderline enlarged. There is aortic tortuosity /ectasia. There is a left subclavian dual-chamber central venous pacemaker. There is no failure. There is no focal pulmonary consolidation. There are no pleural effusions. Postsurgical changes involve the left shoulder.[ IMPRESSION: No active disease in the chest. ACT 112: Negative or not required by law. Electronically signed by: Juan Pablo Man M.D. 06/21/2020 6:44 PM Discharge Plan Visit Data Chief Complaint: Abdominal Pain Stated Complaint: AB PAIN, VOMITING ED Provider: Ravinder Espino Discharge Problem: Hydronephrosis with renal and ureteral calculous obstruction, Sepsis, Acute UTI (urinary tract infection), Fever Patient Disposition: Still a Patient Discharge Instructions Interventions: ED Discharge Assessment Last Done: 06/21/20 19:43
[2020-06-21] MEDS ORDERED: PHENYLEPHRINE HCL 10 MG/ML VIAL ONE (20:48)
--- NOTE | 2020-06-21 20:50 | Anesthesiology Progress Note ---
Date of Service June 21, 2020 Anesthesia Post Procedure Vital Signs Vital Signs: Temp Pulse Pulse Resp BP BP Pulse Ox 06/21/20 20:49 71 21 78/50 L 92 06/21/20 20:40 78 18 92/52 L 95 06/21/20 20:36 37.7 C H 76 20 96/46 L 97 06/21/20 19:00 72 18 81/43 L 97 06/21/20 18:59 71 24 86/45 L 96 06/21/20 18:50 69 25 H 77/39 L 96 06/21/20 18:47 15 78/40 L 96 06/21/20 18:40 70 29 H 77/47 L 96 06/21/20 18:34 67 17 82/51 L 95 06/21/20 18:30 67 17 74/44 L 95 06/21/20 18:27 69 25 H 84/40 L 06/21/20 18:26 73 25 H 78/40 L 06/21/20 18:21 67 23 75/40 L 97 06/21/20 18:02 70 16 79/36 L 96 06/21/20 18:00 67 22 75/43 L 96 06/21/20 17:30 74 20 84/45 L 92 06/21/20 17:27 71 23 78/42 L 94 06/21/20 16:46 101 H 30 H 115/54 L 97 06/21/20 16:32 94 06/21/20 16:30 96 H 25 H 108/36 L 95 06/21/20 16:24 37.6 C H 80 20 103/51 L 98 06/21/20 16:23 79 16 103/51 L 99 Pain Intensity Abdomen: Pain Intensity: 7 Transfer of Care Handoff Completed per policy Notes Mental Status: alert / awake / arousable and participated in evaluation Patient Amnestic to Procedure: Yes Nausea / Vomiting: adequately controlled Pain: adequately controlled Airway Patency, RR, SpO2: stable & adequate BP & HR: stable & adequate Hydration State: stable & adequate Anesthetic Complications: no major complications apparent and Pt Satisfied with anesthetic care
--- NOTE | 2020-06-21 20:53 | Fluoroscopy Report ---
FL retrograde includes kub CLINICAL HISTORY: Retrograde study with stent placement. COMPARISON STUDY: CT scan dated 06/21/2020 FLUOROSCOPY TIME: 18 seconds. NUMBER OF FLUOROSCOPIC IMAGES: 5 FINDINGS: 5 intraprocedural fluoroscopic spot images demonstrate retrograde catheterization of the le ft ureter with placement of a left-sided nephroureteral stent. The proximal pigtail is visualized. Th ere are no images of the distal pigtail. IMPRESSION: Retrograde study with placement of a left-sided nephroureteral stent ACT 112: Negative or not required by law. Electronically signed by: Juan Pablo Man M.D. 06/21/2020 8:52 PM
[2020-06-21] MEDS ORDERED: POLYETHYLENE (MIRALAX) 17 GM PACK PO PRN (21:06)
[2020-06-21] MEDS ORDERED: PHARMACY GLYCEMIC MGMT CONSULT STA (21:06)
[2020-06-21] MEDS ORDERED: ALUMINUM/MAGNESIUM SUSP 30 ML UDC PO PRN (21:06)
[2020-06-21] MEDS ORDERED: MAGNESIUM HYDROXIDE SUSP 30 ML UDC PO PRN (21:06)
[2020-06-21] MEDS ORDERED: ACETAMINOPHEN 325 MG TAB PO PRN ×2 (21:06→23:42)
[2020-06-21] MEDS ORDERED: GLUCOSE 40% GEL 15 GM TUBE PO PRN (21:06)
[2020-06-21] MEDS ORDERED: GLUCAGON FOR INJ 1 MG VIAL SQ PRN (21:06)
[2020-06-21] MEDS ORDERED: GLUCOSE 10 TABS/TUBE PO PRN (21:06)
[2020-06-21] MEDS ORDERED: ICU PROTOCOL FOR HYPERGLYCEMIA PRN (21:06)
[2020-06-21] MEDS ORDERED: DEXTROSE 50% 50 ML SYRINGE IV PRN (21:06)
[2020-06-21] MEDS ORDERED: CARBOHYDRATES FOR HYPOGLYCEMIA PO PRN (21:06)
[2020-06-21] MEDS ORDERED: fentaNYL citrate 100 MCG/2 ML VIAL ONE (21:34)
[2020-06-21] MEDS ORDERED: DAPTOmycin 425 MG in SYRINGE 0 ML IV SCH (22:00)
--- NOTE | 2020-06-21 22:09 | Procedure Note ---
Procedure Note Date of Service June 21, 2020 Note FEMORAL CENTRAL LINE PROCEDURE NOTE: Procedure: Femoral Central Line Placement Attending: Dr. Sang Beltrán Provider: TANGELA Rutherford Indication: Central Drug Administration Anesthesia: Lidocaine 1% Line placed emergently in the setting of septic shock requiring vasopressor support A time-out was completed verifying correct patient, procedure, site, positioning, and implants(s) or special equipment if applicable. Patients right groin was cleansed and draped in the typical sterile fashion using Chloraprep. The Femoral Vein and Femoral Artery were identified using ultrasound. The superficial tissue was anesthetized using 5 mL of 1% lidocaine without epinephrine under direct visualization with the ultrasound. After adequate anesthetization was achieved, the Femoral Vein was cannulated under direct ultrasound guidance using an introducer needle on a syringe. Good venous blood return was maintained prior to removal of syringe from introducer needle. Using Seldinger Technique, a guide wire was advanced through the introducer needle without resistance. The introducer needle was removed and ultrasound images were obtained of the guide wire within the Femoral Vein and saved to the patients medical record. A small incision was made in penetrating fashion at the guide wire insertion site utilizing an 11 blade scalpel. The dilator was advanced to the vessel without resistance. The dilator was exchanged for the triple lumen catheter which was advanced into the vessel without resistance. The guide wire was removed intact from the catheter without issue. Claves were placed on each catheter tip with confirmation of good blood flow from each lumen. Each port was easily flushed with sterile saline. The catheter was placed at the hub and sutured in place. BioPatch was applied to the catheter and a sterile Tegaderm dressing was applied over the catheter with careful attention to sterility. Patient tolerated procedure well. No immediate complications were met. Images obtained are saved for permanent record Procedural Ultrasound Guidance: Procedure Date: 06/21/2020 Indication: Central line insertion Attending: Dr. Sang Beltrán Provider: TANGELA Rutherford Artery AND Vein visualized: Yes Compressible Vein: Yes Guidewire or Short Catheter seen in vein prior to dilation: Yes Line confirmed in Vein with ultrasound: Yes Images obtained are saved for permanent record. Coding CPT Codes Tubes, Drains, and Vasc Access - Tubes, Drains, and Vasc Access: [id number] Place catheter in vein superior or inferior vena cava ([id number]) Tubes, Drains, and Vasc Access - Tubes, Drains, and Vasc Access: [id number] Ultrasound Guidance For Vascular ([id number]) [facility] [place] Procedure Codes (Charges) Tubes, Drains, and Vasc Access Procedure 1: Tubes, Drains, and Vasc Access: [id number] Place catheter in vein superior or inferior vena cava Procedure 2: Tubes, Drains, and Vasc Access: [id number] Ultrasound Guidance For Vascular
--- NOTE | 2020-06-21 22:09 | Critical Care Consultation ---
Date of Consultation June 21, 2020 Assessment & Plan (1) Septic shock: Reason Critically Ill: 79-year-old female presents to the ICU with septic shock requiring vasopressors following a left obstructing ureteral stone with left hydroureteronephrosis, now status post left ureteral stent insertion. 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 S/p cystoscope ureteral stent insertion -patient remained hypotensive following 2 and half liter bolus, started on vasopressors in ED. -Continue norepinephrine drip for maps greater than 65, wean as tolerated - CVC inserted right femoral vein -Lactate downtrending -Random cortisol and troponin pending -Echo 03/04 EF 65 to 70%, grade 3's diastolic dysfunction, mild valvular aortic stenosis -Hold antihypertensives while on vasopressors -We will hold Lasix for now -Continuous monitoring on telemetry CADhistory of PCI 2011 -Echo as above -Continue home Plavix SSS/A. fib/pacemakercurrently A. fib with controlled rate on monitor -Continue digoxin -Hold Coumadin following procedure -Hold MTP in the setting of hypotension -Monitor on telemetry Respiratory - Chest x-ray without evidence of infiltration lungs clear to auscultation -Monitor continuous pulse ox -Can hold Lasix for now given hypotension. May give as needed if patient shows signs of developing congestion GI - N.p.o. except for meds for now GERDcontinue famotidine RENAL/LYTES - KATHY on CKD stage IIIcreatinine 1.55 on admission, baseline of 1.12 on prior admission -Postobstructive given hydronephrosis versus ATN in the setting of shock -Maintain maps greater than 65, continue IV fluid resuscitation -Avoid nephrotoxins and renally adjust medication -Trend creatinine with routine BMPs, monitor - Left ureteral obstructing calculi7 mm calculi demonstrated on CT abdomen pelvis with evidence of left hydroureteronephrosis -s/p cystoscope ureteral stent insertion per urology, will follow recommend ations -Richa, monitor strict I's and O's ENDO - DM type II (uncontrolled)currently euglycemic, continue sliding scale -ICU hyperglycemic protocol -Follow-up A1c in a.m. Hypothyroidfollow-up TSH in a.m. -Continue Synthroid HEME - H&H stable, monitor routine CBCs ID - Sepsismost likely urinary source given obstructing ureteral stone -Procalcitonin lactate elevated. T-max 38.1 -UA with +1 bacteria's, history of multiple UTIs. Prior E. coli infection with resistance to ceftriaxone and ampicillin -Chest x-ray without evidence of pulmonary infiltration -Urine culture and blood cultures pending -Continue broad-spectrum antibiotics daptomycin and Zosyn for now LINES/IV ACCESS - Right central venous catheter, peripheral IV x2 DVT PROPHYLAXIS - SCDs, hold anticoagulation for now following procedure I have personally spent 55 minutes of critical care time in the direct management of this patient. This is a life/limb threatening event. This includes time spent evaluating patient, direct bedside care, chart review, placing orders, interpretation of diagnostic studies, discussion with consultants, patient, and family members, as well as other required patient management a ctivities. This time is exclusive of all separately billable procedures, and teaching time and separate from and in addition to any other critical care service time. Thank you for allowing us to participate in the care of this patient. Please refer to my attending physician's documentation for any further recommendations. (2) Sepsis: (3) Calculus of distal left ureter: (4) DVT prophylaxis: (5) Acute kidney injury superimposed on CKD: (6) Hydronephrosis with renal and ureteral calculous obstruction: (7) Fever: (8) Chronic heart failure with preserved ejection fraction (HFpEF): (9) SSS (sick sinus syndrome): (10) Atrial fibrillation: (11) Mitral stenosis: (12) Pacemaker: (13) CAD (coronary artery disease): (14) Hypothyroidism: (15) DM type 2 (diabetes mellitus, type 2): (16) Dyslipidemia: (17) Mild aortic stenosis: Supervising Physician Co-Signing Physician Notes seen and examined. discussed with CC SONAL and agree with AP as noted. See my PN for additional details. History of Present Illness Attending Physician: José Miguel Coleman MD History of Present Illness Patient is a 79-year-old female with extensive past medical history including A. fib (on warfarin), DM type II, CAD, SSS s/p pacer, HTN, HLD, hypothyroid, chronic diastolic heart failure, mitral and aortic valve stenosis, CKD stage III, GERD, MDS, iron deficiency anemia. Patient presented to the emergency department from [facility] earlier this afternoon with complaints of abdominal pain ongoing 2 days. She was noted by nursing staff to be febrile of 101.6 and pale. In the ED she was noted to have elevated lactate and pro calcitonin with a UA concerning for infection. CT the abdomen and pelvis revealed a 7 mm obstructing left UVJ calculus with secondary left hydroureteronephrosis. Patient was noted to be hypotensive and received 2 9 L IV fluid bolus was given broad-spectrum antibiotics Dapto and Zosyn. Blood and urine cultures were obtained. Eventually the patient required vasopressor support with Levophed. Patient was evaluated by urology emergently and was taken to the OR where she received a left ureteral stent via cystoscope. Patient now presents to the ICU postop. She still requiring vasopressor support with Levophed and a right femoral CVC was emergently inserted. Patient is slightly drowsy and was noted to be confused in the ED. She did receive Versed in the OR but is currently alert and oriented on exam. She currently reports mild abdominal pain and abdomen is tender to palpation but soft and nondistended. She currently denies headache or dizziness, recent cough or respiratory infection, shortness of breath or wheezing, chest pain or palpitations, nausea or vomiting, or diarrhea, or swelling in hands or feet. We will continue to manage care in ICU for now while patient is requiring vasopressor support. Allergies Allergy/AdvReac Type Severity Reaction Status Date / Time adhesive Allergy Unknown ADHESIVE Verified 06/21/20 18:48 TAPE Home Medications Medication Instructions Recorded Confirmed Type metoprolol succinate 37.5 mg PO QAM 12/06/17 06/21/20 History ferrous sulfate 325 mg PO BID 11/08/18 06/21/20 History citalopram 40 mg PO QAM 03/13/19 06/21/20 History levothyroxine 50 mcg PO QAM 03/13/19 06/21/20 History digoxin 125 mcg PO 5XWK 10/10/19 06/21/20 History furosemide 20 mg PO QAM 10/10/19 06/21/20 History cyanocobalamin (vitamin B-12) 1,000 mcg IM MONTHLY 02/18/20 06/21/20 History nitroglycerin 0.4 mg SUBLINGUAL DIRECTED PRN 02/18/20 06/21/20 History acetaminophen 325 mg PO Q4 PRN MDD 3g 06/21/20 06/21/20 History clopidogrel 75 mg PO DAILY 06/21/20 06/21/20 History famotidine 20 mg PO DAILY 06/21/20 06/21/20 History insulin glargine [Lantus Solostar 12 unit SUBCUT QAM 06/21/20 06/21/20 History U-100 Insulin] multivitamin [Daily-Nori] 1 tab PO QAM 06/21/20 06/21/20 History oxycodone 5 mg PO Q8H PRN 06/21/20 06/21/20 History warfarin 4 mg PO SUMOWEFRSA 06/21/20 06/21/20 History warfarin 6 mg PO TUTH 06/21/20 06/21/20 History Patient History Medical History (Updated 06/21/20 @ 23:06 by TANGELA Hodges) Aortic root dilatation 4.4 cm on echo 01/2019 Asthma Atrial fibrillation Bifascicular block CAD (coronary artery disease) "1995 - PTCA and stenting of RCA 07/2011 - atherectomy and stenting RCA 12/2011- AZALIA to the mid LAD 2016-Cobra stent to mid LAD 2017-AZALIA to ostial diagonal Closed fracture of left hip Depression DM type 2 (diabetes mellitus, type 2) Dyslipidemia Fall Hematuria Hypothyroidism HOMERO (iron deficiency anemia) Macular degeneration MDS (myelodysplastic syndrome) Mild aortic stenosis Pacemaker Sinus node dysfunction Surgical History History of angioplasty History of arthroscopy of knee History of arthroscopy of shoulder History of cholecystectomy History of gastric bypass History of incisional hernia repair History of partial hysterectomy History of tonsillectomy Family History Father Colorectal cancer Sister Lung cancer Diabetes Brother Diabetes Mother Diabetes Social History (Updated 06/21/20 @ 19:42 by Anna Torres PA-C) Smoking Status: Never smoker Second Hand Exposure: No; Hx Alcohol Use: No Hx Substance Use: No Preferred Language: Irish Communication Ability: Effective Visual Impairment: No Limitations Hearing Ability: Normal Keno Attendant Required: No Beliefs That Will Affect Care: None marital status: / Current Living Situation: Correction Current Living Situation Comment: [facility] current occupational status: retired How many Children do You have: 3 Other Information That Helps Us Care for You: No Feels Safe at Home: Yes Safety Concerns: Feels Safe At This Time Assistive Devices: Cane Review of Systems Review of Systems: All systems reviewed & are unremarkable except as noted in HPI & below Physical Exam Constitutional: cooperative and comfortable Eyes: PERRL, conjunctivae normal, anicteric sclerae ENMT: external ear and nose normal, oropharynx normal Neck: trachea midline, no thyromegaly Respiratory: normal respiratory effort, lungs clear to auscultation Cardiovascular: Rate/Rhythm: + irregularly irregular Heart Sounds: no murmur Vessels: + JVD Extremities: normal capillary refill; no edema Gastrointestinal (Abdomen): Inspection/Auscultation: abdomen normal to inspection and normal bowel sounds; abdomen not distended and no abdominal edema Percussion/Palpation: + abdomen tender and abdomen soft; no guarding Skin: no rashes, warm and dry Neurologic: PERRL, EOMI, accommodation nl, no face palsy, no dysarthria Psychiatric: A+Ox3, euthymic affect Genitourinary: Indwelling Chaudhry catheter Results & Data Results & Data ([facility]) Vital Signs (Past 12 Hours) Vital Signs Temp Pulse Pulse Resp BP BP Pulse Ox 06/21/20 20:57 80 27 H 98/52 L 100 06/21/20 20:55 38.1 C H 81 32 H 97/58 L 95 06/21/20 20:50 74 22 83/52 L 99 06/21/20 20:45 71 21 78/50 L 92 06/21/20 20:40 78 18 92/52 L 95 06/21/20 20:36 37.7 C H 76 20 96/46 L 97 06/21/20 19:00 72 18 81/43 L 97 06/21/20 18:59 71 24 86/45 L 96 06/21/20 18:50 69 25 H 77/39 L 96 06/21/20 18:47 15 78/40 L 96 06/21/20 18:40 70 29 H 77/47 L 96 06/21/20 18:34 67 17 82/51 L 95 06/21/20 18:30 67 17 74/44 L 95 06/21/20 18:27 69 25 H 84/40 L 06/21/20 18:26 73 25 H 78/40 L 06/21/20 18:21 67 23 75/40 L 97 06/21/20 18:02 70 16 79/36 L 96 06/21/20 18:00 67 22 75/43 L 96 06/21/20 17:30 74 20 84/45 L 92 06/21/20 17:27 71 23 78/42 L 94 06/21/20 16:46 101 H 30 H 115/54 L 97 06/21/20 16:32 94 06/21/20 16:30 96 H 25 H 108/36 L 95 06/21/20 16:24 37.6 C H 80 20 103/51 L 98 06/21/20 16:23 79 16 103/51 L 99 Coding Level of Care Code Critical Care 1st 30-74 mins Diagnoses Septic shock A41.9; R65.21 Sepsis A41.9 Calculus of distal left ureter N20.1 DVT prophylaxis Z29.9 Acute kidney injury superimposed on CKD N17.9; N18.9 Hydronephrosis with renal and ureteral calculous obstruction N13.2 Fever R50.9 Chronic heart failure with preserved ejection fraction (HFpEF) I50.32 SSS (sick sinus syndrome) I49.5 Atrial fibrillation I48.91 Mitral stenosis I05.0 Pacemaker Z95.0 CAD (coronary artery disease) I25.10 Associated angina: without angina Coronary Disease-Associated Artery/Lesion type: eagle artery Pala vs. transplanted heart: eagle heart Hypothyroidism E03.9 DM type 2 (diabetes mellitus, type 2) E11.9 Dyslipidemia E78.5 Mild aortic stenosis I35.0 (1) CAD (coronary artery disease) Associated angina: without angina Coronary Disease-Associated Artery/Lesion type: eagle artery Pala vs. transplanted heart: eagle heart Qualified Code(s): I25.10 - Atherosclerotic heart disease of eagle coronary artery without angina pectoris
[2020-06-21] MEDS ORDERED: fentaNYL citrate 100 MCG/2 ML VIAL IV STA (22:18)
[2020-06-21] MEDS: INSULIN ASPART 100 UNITS/ML 3 ML PEN SC SCH (23:05)
[2020-06-21] MEDS: PIPERACILLIN/TAZOBACTAM 3.375 GM in DEXTROSE 5% 100 ML IV SCH (23:53)
[2020-06-22] MEDS: SODIUM CHLORIDE 0.9% 1000ML 1,000 ML IV SCH ×2 (04:24→08:28)
[2020-06-22 05:11] LABS: INR 2.7 (0.9-1.1); Prothrombin Time 25.6 Seconds (9.0-12.0)
[2020-06-22 05:20] LABS: Albumin Level 2.3 gm/dl (3.4-5.0); BUN Creatinine Ratio 16.4 (10-20); Calcium 7.1 mg/dl (8.5-10.1); Creatinine Clr Calc Pharmacy 33.6 ml/min; Est GFR (Non-African American) 33.7; Magnesium 1.6 mg/dl (1.8-2.4); Potassium 3.9 mmol/L (3.5-5.1)
[2020-06-22] MEDS: INSULIN ASPART 100 UNITS/ML 3 ML PEN SC SCH ×4 (05:23→20:28)
[2020-06-22] MEDS: LEVOTHYROXINE SODIUM 50 MCG TABLET PO SCH (05:25)
[2020-06-22 05:41] LABS: Estimated Average Glucose 143 mg/dl; Hemoglobin A1C 6.6 % (4.5-5.6)
[2020-06-22 05:48] LABS: Bilirubin,Total 0.5 mg/dl (0.2-1); Globulin 2.4 gm/dl (2.5-4.0); Phosphorus 4.1 mg/dl (2.5-4.9); Thyroid Stimulating Hormone 0.603 uIu/ml (0.300-4.500); Total Protein 4.7 gm/dl (6.4-8.2); Troponin I 0.118 ng/ml (0-0.045)
[2020-06-22] MEDS ORDERED: POTASSIUM CHLORIDE CRTAB 20 MEQ TABCR PO STA (05:59)
[2020-06-22 06:05] LABS: Hematocrit (blood only) 31.5 % (37-47); Hemoglobin 10.4 g/dL (12.0-16.0); Mean Corpuscular Hemoglobin 30.1 pg (25-34); Mean Platelet Volume 10.6 fL (7.4-10.4); Platelet Count 162 K/uL (130-400); RDW Coefficient of Variation 14.5 % (11.5-14.5); RDW Standard Deviation 47.8 fL (36.4-46.3); Red Blood Count 3.46 M/uL (4.2-5.4); White Blood Count 22.91 K/uL (4.8-10.8)
[2020-06-22 06:06] LABS: Basophils # (auto) 0.01 K/uL (0-0.2); Echinocytes 1+; Immature Granulocytes # (auto) 0.58 K/uL (0.00-0.02); Immature Granulocytes % (auto) 2.5 %; Lymphocytes # (auto) 0.54 K/uL (1.2-3.4); Lymphocytes % (auto) 2.4 %; Monocytes # (auto) 0.93 K/uL (0.11-0.59); Monocytes % (auto) 4.1 %; Neutrophils # (auto) 20.85 K/uL (1.4-6.5)
[2020-06-22] MEDS: MAGNESIUM SULFATE / D5W 1 GM/100 ML BAG IV SCH ×4 (06:10→11:51)
--- NOTE | 2020-06-22 06:47 | XRay Report ---
XR chest 1V portable HISTORY: 79 years-old Female CVC IJ attempt ureteral calculus. Preoperative exam with attempted cent ral venous catheter placement COMPARISON: CT abdomen and pelvis of same day at 6:22 PM TECHNIQUE: Portable AP view of the chest FINDINGS: Cardiac silhouette is enlarged. Mitral annular calcifications. Left subclavian pacer. Calcified plaqu e of the thoracic aorta. No central venous catheter identified. No pneumothorax, pleural effusion, ai rspace consolidation or overt pulmonary edema. Degenerative changes of the shoulders and spine. Surgi martha anchor of the right humeral head. IMPRESSION: No acute process. ACT 112: Negative or not required by law. The above report was generated using voice recognition software. It may contain grammatical, syntax o r spelling errors. Electronically signed by: Kirt Nova M.D. 06/22/2020 6:45 AM
--- NOTE | 2020-06-22 07:44 | Critical Care Progress Note ---
Date of Service June 22, 2020 Assessment & Plan (1) Hydronephrosis with renal and ureteral calculous obstruction: Reason Critically Ill: 79-year-old female who presents to the ICU with septic shock requiring vasopressors following a left obstructing ureteral stone with left hydroureteronephrosis, now status post left ureteral stent insertion. 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 S/p cystoscope ureteral stent insertion - Plan to attempt weaning Levophed today as she has been requiring very small amounts - Lactate downtrending - Random cortisol at 52.55 - Echo 03/04 EF 65 to 70%, grade 3's diastolic dysfunction, mild valvular aortic stenosis - Hold antihypertensives while on vasopressors - Hold Lasix for now - Continue monitoring on telemetry CADhistory of PCI 2011 - Echo as above - Continue home Plavix SSS/A. fib/pacemakercurrently A. fib with controlled rate on monitor - Continue digoxin - Digoxin level WNL this AM - Hold Coumadin following procedure - Hold MTP in the setting of hypotension requiring pressors--plan to restart antihypertensives as BP allows - Monitor on telemetry Respiratory - Chest X-ray without evidence of infiltration lungs clear to auscultation - Monitor continuous pulse ox - Hold Lasix for now given hypotension. May give as needed if patient shows signs of developing congestion GI - Will start sips and chips and advance diet slowly as tolerated GERDcontinue famotidine RENAL/LYTES - KATHY on CKD stage IIIcreatinine 1.55 on admission, baseline of 1.12 on prior admission - Postobstructive given hydronephrosis versus ATN in the setting of shock - Maintain maps greater than 65 - Continue IV fluid resuscitation - Avoid nephrotoxins and renally adjust medication - Creatinine trending down to 1.45 today - Continue to trend creatinine with routine BMPs, monitor Hypomagnesemia - Magnesium sulfate 1g x4 given today Hypocalcemia - Patient on lower end even with albumin correction - Calcium chloride 500mg IV x1 given today - Left ureteral obstructing calculi7 mm calculi demonstrated on CT abdomen pelvis with evidence of left hydroureteronephrosis -s/p cystoscope ureteral stent insertion per urology, will follow recommendations - Per Uro plan to f/u with her in about two weeks for scheduling of follow-up surgery for stone removal -Richa monitor strict I's and O's ENDO - DM type II (uncontrolled)currently euglycemic, continue sliding scale - ICU hyperglycemic protocol - A1C at 6.6 showing good control Hypothyroid - TSH WNL - Continue Synthroid HEME - H&H stable, monitor routine CBCs ID - Sepsismost likely urinary source given obstructing ureteral stone - Lactate trending down - UA with +1 bacteria's, history of multiple UTIs. Prior E. coli infection with resistance to ceftriaxone and ampicillin - Chest x-ray without evidence of pulmonary infiltration - Urine culture pending - Blood culture growing Gram negative bacilli - Discontinue daptomycin in the settng of gram neg bacteremia - Continue Zosyn LINES/IV ACCESS - Right femoral central venous catheter, peripheral IV x2 DVT PROPHYLAXIS - SCDs, hold anticoagulation for now following procedure Thank you for allowing us to participate in the care of this patient. Please refer to Dr. Beltrán's documentation for further details/recommendations. (2) Acute kidney injury superimposed on CKD: (3) DVT prophylaxis: (4) Septic shock: (5) Pacemaker: (6) Atrial fibrillation: (7) SSS (sick sinus syndrome): (8) Calculus of distal left ureter: Admission and Anticipated Discharge Date Admission Date: June 21, 2020 Supervising Physician Co-Signing Physician Notes Patient seen and examined. EMR reviewed. Discussed with urology at bedside and on multidisciplinary rounds. Agree with assessment and plan as noted by family practice resident. Urosepsis secondary to obstructing stone which appears to be improving. Con tinue antibiotics pending speciation of gram-negative misael in blood. Okay to discontinue daptomycin. Random cortisol was adequate. Will replace calcium. As pressors are weaned off, will advance diet as tolerated and increase activity to out of bed as tolerated. Once the patient's pressor requirements have resolved, can consider transition out of the ICU potentially later today. Subjective Patient reports feeling much better this AM. She denies CP, palp, SOB, abd pain, nausea/vomiting. Review of Systems Review of Systems: All systems reviewed & are unremarkable except as noted in Subjective Physical Exam Constitutional: WD/WN, vitals as above cooperative and comfortable; no acute distress Eyes: PERRL, conjunctivae normal, anicteric sclerae ENMT: external ear and nose normal, oropharynx normal Neck: normal visual inspection Respiratory: normal respiratory effort, lungs clear to auscultation Auscultation: no crackles, no rales, no rhonchi and no wheezes Cardiovascular: RRR, no murmur, no edema Heart Sounds: normal S1 and normal S2; no gallop, no murmur and no cardiac rub Gastrointestinal (Abdomen): normal bowel sounds, soft, nontender, no hepatosplenomegaly Musculoskeletal: no cyanosis or clubbing, extremities motor strength 5/5 Skin: no rashes, warm and dry Neurologic: CN's II-XI intact bilaterally; no focal motor deficits Psychiatric: Orientation: alert, oriented to person and oriented to place; + not oriented to time Affect: euthymic affect Results & Data Results & Data ([facility]) Vital Signs (Past 12 Hours) Vital Signs Temp Pulse Pulse Resp BP BP Pulse Ox 06/22/20 06:30 62 18 100 06/22/20 06:21 64 17 103/57 L 99 06/22/20 06:15 64 23 97 06/22/20 06:06 67 15 93/51 L 96 06/22/20 06:00 75 21 96 06/22/20 05:51 69 20 105/64 100 06/22/20 05:45 74 16 99 06/22/20 05:36 71 24 113/59 L 99 06/22/20 05:30 74 22 98 06/22/20 05:21 70 16 102/56 L 98 06/22/20 05:15 73 23 97 06/22/20 05:06 71 17 102/55 L 97 06/22/20 05:00 75 20 97 06/22/20 04:51 79 17 135/71 98 06/22/20 04:45 80 18 98 06/22/20 04:36 77 19 125/79 98 06/22/20 04:30 79 19 98 06/22/20 04:21 68 18 111/57 L 97 06/22/20 04:15 71 23 96 06/22/20 04:06 76 21 130/78 98 06/22/20 04:00 36.7 C 77 18 98 06/22/20 03:51 75 17 128/73 98 06/22/20 03:45 76 19 98 06/22/20 03:36 77 17 130/79 98 06/22/20 03:30 80 19 98 06/22/20 03:21 72 17 145/67 H 98 06/22/20 03:15 85 20 100 06/22/20 03:06 73 19 126/64 96 06/22/20 03:00 75 20 97 06/22/20 02:51 75 19 128/61 97 06/22/20 02:45 79 17 96 06/22/20 02:36 74 20 122/74 96 06/22/20 02:30 68 18 96 06/22/20 02:21 79 18 126/62 96 06/22/20 02:15 83 19 97 06/22/20 02:06 74 24 137/63 96 06/22/20 02:00 75 19 96 06/22/20 01:51 74 20 121/67 97 06/22/20 01:45 74 23 95 06/22/20 01:36 78 23 115/59 L 96 06/22/20 01:30 81 21 98 06/22/20 01:21 76 20 115/60 95 06/22/20 01:15 75 17 97 06/22/20 01:06 77 20 110/63 95 06/22/20 01:00 78 16 98 06/22/20 00:51 83 21 108/57 L 97 06/22/20 00:45 80 25 H 96 06/22/20 00:36 78 24 107/58 L 97 06/22/20 00:30 74 20 95 06/22/20 00:21 76 15 103/60 98 06/22/20 00:15 76 18 97 06/22/20 00:06 76 17 108/54 L 97 06/22/20 00:00 36.5 C 75 20 96 06/21/20 23:51 75 18 108/59 L 97 06/21/20 23:45 75 22 96 06/21/20 23:36 82 22 97/54 L 95 06/21/20 23:30 83 17 96 06/21/20 23:21 82 20 105/52 L 94 06/21/20 23:15 79 22 97 06/21/20 23:06 82 21 101/52 L 94 06/21/20 23:00 83 17 97 06/21/20 22:51 80 21 98/51 L 96 06/21/20 22:45 89 18 96 06/21/20 22:36 86 22 102/53 L 97 06/21/20 22:30 88 20 97 06/21/20 22:21 81 24 98/55 L 98 06/21/20 22:15 79 17 97 06/21/20 22:06 81 28 H 93/47 L 100 06/21/20 22:01 78 19 96/56 L 94 06/21/20 22:00 85 20 95 06/21/20 21:55 79 19 93/50 L 96 06/21/20 21:50 84 19 89/52 L 84 L 06/21/20 21:46 87 18 89/51 L 93 06/21/20 21:45 83 18 95 06/21/20 21:40 85 26 H 91/51 L 93 06/21/20 21:38 87 22 96/54 L 97 06/21/20 21:35 82 21 106/60 98 06/21/20 21:33 81 19 93/61 L 100 06/21/20 21:30 83 20 100/55 L 100 06/21/20 21:28 76 26 H 88/51 L 100 06/21/20 21:25 75 24 104/53 L 100 06/21/20 21:23 82 35 H 97/57 L 100 06/21/20 21:20 84 19 98/52 L 100 06/21/20 21:18 75 17 99/56 L 100 06/21/20 21:15 84 20 100/51 L 100 06/21/20 21:13 82 23 95/48 L 94 06/21/20 21:10 80 23 83/50 L 98 06/21/20 21:08 84 33 H 90/50 L 100 06/21/20 21:06 06/21/20 21:05 80 28 H 78/47 L 100 06/21/20 21:04 82 24 66/42 L 95 06/21/20 21:03 74 27 H 64/41 L 97 06/21/20 21:00 37.7 C H 75 82 17 99/70 L 93/47 L 97 06/21/20 20:58 83 23 98/52 L 85 L 06/21/20 20:57 80 27 H 98/52 L 100 06/21/20 20:55 38.1 C H 82 81 30 H 97/58 L 97/58 L 91 06/21/20 20:53 80 24 91/59 L 100 06/21/20 20:51 79 32 H 88/56 L 100 06/21/20 20:50 74 22 83/52 L 99 06/21/20 20:48 77 24 83/52 L 94 06/21/20 20:46 73 21 78/50 L 86 L 06/21/20 20:45 71 21 78/50 L 92 06/21/20 20:44 73 22 139/87 96 06/21/20 20:40 75 78 24 92/52 L 92/52 L 93 06/21/20 20:38 74 19 96/57 L 91 06/21/20 20:36 37.7 C H 74 76 18 96/46 L 96/46 L 94 06/21/20 20:35 76 20 Pulse Ox 06/22/20 06:30 06/22/20 06:21 06/22/20 06:15 06/22/20 06:06 06/22/20 06:00 06/22/20 05:51 06/22/20 05:45 06/22/20 05:36 06/22/20 05:30 06/22/20 05:21 06/22/20 05:15 06/22/20 05:06 06/22/20 05:00 06/22/20 04:51 06/22/20 04:45 06/22/20 04:36 06/22/20 04:30 06/22/20 04:21 06/22/20 04:15 06/22/20 04:06 06/22/20 04:00 06/22/20 03:51 06/22/20 03:45 06/22/20 03:36 06/22/20 03:30 06/22/20 03:21 06/22/20 03:15 06/22/20 03:06 06/22/20 03:00 06/22/20 02:51 06/22/20 02:45 06/22/20 02:36 06/22/20 02:30 06/22/20 02:21 06/22/20 02:15 06/22/20 02:06 06/22/20 02:00 06/22/20 01:51 06/22/20 01:45 06/22/20 01:36 06/22/20 01:30 06/22/20 01:21 06/22/20 01:15 06/22/20 01:06 06/22/20 01:00 06/22/20 00:51 06/22/20 00:45 06/22/20 00:36 06/22/20 00:30 06/22/20 00:21 06/22/20 00:15 06/22/20 00:06 06/22/20 00:00 06/21/20 23:51 06/21/20 23:45 06/21/20 23:36 06/21/20 23:30 06/21/20 23:21 06/21/20 23:15 06/21/20 23:06 06/21/20 23:00 06/21/20 22:51 06/21/20 22:45 06/21/20 22:36 06/21/20 22:30 06/21/20 22:21 06/21/20 22:15 06/21/20 22:06 06/21/20 22:01 06/21/20 22:00 06/21/20 21:55 06/21/20 21:50 06/21/20 21:46 06/21/20 21:45 06/21/20 21:40 06/21/20 21:38 06/21/20 21:35 06/21/20 21:33 06/21/20 21:30 06/21/20 21:28 06/21/20 21:25 06/21/20 21:23 06/21/20 21:20 06/21/20 21:18 06/21/20 21:15 06/21/20 21:13 06/21/20 21:10 06/21/20 21:08 06/21/20 21:06 98 06/21/20 21:05 06/21/20 21:04 06/21/20 21:03 06/21/20 21:00 06/21/20 20:58 06/21/20 20:57 06/21/20 20:55 06/21/20 20:53 06/21/20 20:51 06/21/20 20:50 06/21/20 20:48 06/21/20 20:46 06/21/20 20:45 06/21/20 20:44 06/21/20 20:40 06/21/20 20:38 06/21/20 20:36 06/21/20 20:35 Resident Activity Tracking Resident Involvement: Resident Care Provided Care Provided: Adult Hospital Medicine
--- NOTE | 2020-06-22 08:00 | Operative Report (OR) ---
DATE OF OPERATION: 06/21/2020 REASON FOR THE CONSULTATION: Left distal obstructing ureteral stone and urosepsis. HISTORY OF PRESENTATION: The patient is an 79-year-old female who presented with 2 days of abdominal pain. She lives at [facility] and came to the hospital where she had a CAT scan that showed an obstructing distal left ureteral stone. She had an elevated lactate. She is complaining of abdominal pain and was somewhat confused. I was called in by the Emergency Room and read the x-rays and agreed with the distal obstructing stone. Got a consent from the patient with her son in the room and took the patient for emergent stent placement as she was becoming hypotensive. DESCRIPTION OF THE PROCEDURE: The patient was taken to the cystoscopy suite. She had been given preoperative antibiotics. She had Venodyne stockings placed. She was given sedation. She was placed in the dorsal lithotomy position and prepped and draped in the usual sterile fashion. A 21-Chilean cystoscope was passed per urethra. An attempt was made to pass a dual-flex guidewire into the left ureteral orifice which was erythematous, but was unable to do so and unable to do so through a 5-Chilean open-ended catheter. I placed a semirigid ureteroscope into the bladder and was able to pass the guidewire after passing the scope into the distal ureter up beyond the stone using fluoroscopy. Then I was able to replace the cystoscope over the guidewire with the guidewire in place in the proximal ureter, renal pelvis and then I passed a 5-Chilean open-ended catheter up into the renal pelvis, removed the guidewire, placed some contrast into the renal pelvis. We then removed the 5-Chilean open-ended catheter and placed a 4.8-Chilean 24 cm stent into the left renal pelvis under fluoroscopy. There was clearly a hydronephrotic drip coming through the catheter at that point. It was somewhat bloody as the patient has been on Coumadin. At this point, the patient had a 16-Chilean catheter placed. The rest of the bladder was examined. There was no evidence of any tumor. There was not significant erythema in the bladder. There was a lot of debris that came out when the wire was passed. The right ureteral orifice was not easily seen, but there was no evidence of any erythema. The patient continued to be hypotensive, so she was transferred to the Recovery Room with the Chaudhry catheter placed, in guarded condition. I attest to the content of the Intraoperative Record and any orders documented therein. Any exception s are noted below.
[2020-06-22] MEDS ORDERED: PHARMACY GLYCEMIC MGMT CONSULT PRN (08:14)
--- NOTE | 2020-06-22 08:23 | XRay Report ---
XR chest 1V portable HISTORY: Shortness of breath. COMPARISON: Chest 06/21/2020. FINDINGS: No focal lung consolidations to suggest pneumonia. No evidence for pulmonary edema. Is left -sided dual-chamber pacemaker. The heart remains mildly enlarged. No pneumothorax. No pleural effusio ns. IMPRESSION: No significant change compared to the prior study. No acute process. ACT 112: Negative or not required by law. Electronically signed by: Carmine Adan M.D. 06/22/2020 8:21 AM
[2020-06-22] MEDS: CITALOPRAM 40 MG TAB PO SCH (08:27)
[2020-06-22] MEDS: PIPERACILLIN/TAZOBACTAM 3.375 GM in DEXTROSE 5% 100 ML IV SCH ×3 (08:27→23:44)
[2020-06-22] MEDS: FERROUS SULFATE 325 MG TAB PO SCH ×2 (08:27→16:07)
[2020-06-22] MEDS: FAMOTIDINE 20 MG TAB PO SCH (08:28)
--- NOTE | 2020-06-22 08:47 | Anesthesiology Progress Note ---
Date of Service June 22, 2020 Anesthesia Post Procedure Vital Signs Vital Signs: Temp Pulse Pulse Resp BP BP Pulse Ox 06/22/20 06:30 62 18 100 06/22/20 06:21 64 17 103/57 L 99 06/22/20 06:15 64 23 97 06/22/20 06:06 67 15 93/51 L 96 06/22/20 06:00 75 21 96 06/22/20 05:51 69 20 105/64 100 06/22/20 05:45 74 16 99 06/22/20 05:36 71 24 113/59 L 99 06/22/20 05:30 74 22 98 06/22/20 05:21 70 16 102/56 L 98 06/22/20 05:15 73 23 97 06/22/20 05:06 71 17 102/55 L 97 06/22/20 05:00 75 20 97 06/22/20 04:51 79 17 135/71 98 06/22/20 04:45 80 18 98 06/22/20 04:36 77 19 125/79 98 06/22/20 04:30 79 19 98 06/22/20 04:21 68 18 111/57 L 97 06/22/20 04:15 71 23 96 06/22/20 04:06 76 21 130/78 98 06/22/20 04:00 36.7 C 77 18 98 06/22/20 03:51 75 17 128/73 98 06/22/20 03:45 76 19 98 06/22/20 03:36 77 17 130/79 98 06/22/20 03:30 80 19 98 06/22/20 03:21 72 17 145/67 H 98 06/22/20 03:15 85 20 100 06/22/20 03:06 73 19 126/64 96 06/22/20 03:00 75 20 97 06/22/20 02:51 75 19 128/61 97 06/22/20 02:45 79 17 96 06/22/20 02:36 74 20 122/74 96 06/22/20 02:30 68 18 96 06/22/20 02:21 79 18 126/62 96 06/22/20 02:15 83 19 97 06/22/20 02:06 74 24 137/63 96 06/22/20 02:00 75 19 96 06/22/20 01:51 74 20 121/67 97 06/22/20 01:45 74 23 95 06/22/20 01:36 78 23 115/59 L 96 06/22/20 01:30 81 21 98 06/22/20 01:21 76 20 115/60 95 06/22/20 01:15 75 17 97 06/22/20 01:06 77 20 110/63 95 06/22/20 01:00 78 16 98 06/22/20 00:51 83 21 108/57 L 97 06/22/20 00:45 80 25 H 96 06/22/20 00:36 78 24 107/58 L 97 06/22/20 00:30 74 20 95 06/22/20 00:21 76 15 103/60 98 06/22/20 00:15 76 18 97 06/22/20 00:06 76 17 108/54 L 97 06/22/20 00:00 36.5 C 75 20 96 06/21/20 23:51 75 18 108/59 L 97 06/21/20 23:45 75 22 96 06/21/20 23:36 82 22 97/54 L 95 06/21/20 23:30 83 17 96 06/21/20 23:21 82 20 105/52 L 94 06/21/20 23:15 79 22 97 06/21/20 23:06 82 21 101/52 L 94 06/21/20 23:00 83 17 97 06/21/20 22:51 80 21 98/51 L 96 06/21/20 22:45 89 18 96 06/21/20 22:36 86 22 102/53 L 97 06/21/20 22:30 88 20 97 06/21/20 22:21 81 24 98/55 L 98 06/21/20 22:15 79 17 97 06/21/20 22:06 81 28 H 93/47 L 100 06/21/20 22:01 78 19 96/56 L 94 06/21/20 22:00 85 20 95 06/21/20 21:55 79 19 93/50 L 96 06/21/20 21:50 84 19 89/52 L 84 L 06/21/20 21:46 87 18 89/51 L 93 06/21/20 21:45 83 18 95 06/21/20 21:40 85 26 H 91/51 L 93 06/21/20 21:38 87 22 96/54 L 97 06/21/20 21:35 82 21 106/60 98 06/21/20 21:33 81 19 93/61 L 100 06/21/20 21:30 83 20 100/55 L 100 06/21/20 21:28 76 26 H 88/51 L 100 06/21/20 21:25 75 24 104/53 L 100 06/21/20 21:23 82 35 H 97/57 L 100 06/21/20 21:20 84 19 98/52 L 100 06/21/20 21:18 75 17 99/56 L 100 06/21/20 21:15 84 20 100/51 L 100 06/21/20 21:13 82 23 95/48 L 94 06/21/20 21:10 80 23 83/50 L 98 06/21/20 21:08 84 33 H 90/50 L 100 06/21/20 21:06 06/21/20 21:05 80 28 H 78/47 L 100 06/21/20 21:04 82 24 66/42 L 95 06/21/20 21:03 74 27 H 64/41 L 97 06/21/20 21:00 37.7 C H 75 82 17 99/70 L 93/47 L 97 06/21/20 20:58 83 23 98/52 L 85 L 06/21/20 20:57 80 27 H 98/52 L 100 06/21/20 20:55 38.1 C H 82 81 30 H 97/58 L 97/58 L 91 06/21/20 20:53 80 24 91/59 L 100 06/21/20 20:51 79 32 H 88/56 L 100 06/21/20 20:50 74 22 83/52 L 99 06/21/20 20:48 77 24 83/52 L 94 06/21/20 20:46 73 21 78/50 L 86 L 06/21/20 20:45 71 21 78/50 L 92 06/21/20 20:44 73 22 139/87 96 06/21/20 20:40 75 78 24 92/52 L 92/52 L 93 06/21/20 20:38 74 19 96/57 L 91 06/21/20 20:36 37.7 C H 74 76 18 96/46 L 96/46 L 94 06/21/20 20:35 76 20 06/21/20 19:31 64 21 06/21/20 19:30 68 25 H 74/42 L 96 06/21/20 19:24 67 25 H 70/41 L 97 06/21/20 19:20 66 33 H 78/40 L 97 06/21/20 19:15 67 35 H 96 06/21/20 19:10 71 19 84/47 L 96 06/21/20 19:00 72 18 81/43 L 97 06/21/20 18:59 71 24 86/45 L 96 06/21/20 18:50 69 25 H 77/39 L 96 06/21/20 18:47 15 78/40 L 96 06/21/20 18:40 70 29 H 77/47 L 96 06/21/20 18:34 67 17 82/51 L 95 06/21/20 18:30 67 17 74/44 L 95 06/21/20 18:27 69 25 H 84/40 L 06/21/20 18:26 73 25 H 78/40 L 06/21/20 18:21 67 23 75/40 L 97 06/21/20 18:02 70 16 79/36 L 96 06/21/20 18:00 67 22 75/43 L 96 06/21/20 17:30 74 20 84/45 L 92 06/21/20 17:27 71 23 78/42 L 94 06/21/20 16:46 101 H 30 H 115/54 L 97 06/21/20 16:32 94 06/21/20 16:30 96 H 25 H 108/36 L 95 06/21/20 16:24 37.6 C H 80 20 103/51 L 98 06/21/20 16:23 79 16 103/51 L 99 Pulse Ox 06/22/20 06:30 06/22/20 06:21 06/22/20 06:15 06/22/20 06:06 06/22/20 06:00 06/22/20 05:51 06/22/20 05:45 06/22/20 05:36 06/22/20 05:30 06/22/20 05:21 06/22/20 05:15 06/22/20 05:06 06/22/20 05:00 06/22/20 04:51 06/22/20 04:45 06/22/20 04:36 06/22/20 04:30 06/22/20 04:21 06/22/20 04:15 06/22/20 04:06 06/22/20 04:00 06/22/20 03:51 06/22/20 03:45 06/22/20 03:36 06/22/20 03:30 06/22/20 03:21 06/22/20 03:15 06/22/20 03:06 06/22/20 03:00 06/22/20 02:51 06/22/20 02:45 06/22/20 02:36 06/22/20 02:30 06/22/20 02:21 06/22/20 02:15 06/22/20 02:06 06/22/20 02:00 06/22/20 01:51 06/22/20 01:45 06/22/20 01:36 06/22/20 01:30 06/22/20 01:21 06/22/20 01:15 06/22/20 01:06 06/22/20 01:00 06/22/20 00:51 06/22/20 00:45 06/22/20 00:36 06/22/20 00:30 06/22/20 00:21 06/22/20 00:15 06/22/20 00:06 06/22/20 00:00 06/21/20 23:51 06/21/20 23:45 06/21/20 23:36 06/21/20 23:30 06/21/20 23:21 06/21/20 23:15 06/21/20 23:06 06/21/20 23:00 06/21/20 22:51 06/21/20 22:45 06/21/20 22:36 06/21/20 22:30 06/21/20 22:21 06/21/20 22:15 06/21/20 22:06 06/21/20 22:01 06/21/20 22:00 06/21/20 21:55 06/21/20 21:50 06/21/20 21:46 06/21/20 21:45 06/21/20 21:40 06/21/20 21:38 06/21/20 21:35 06/21/20 21:33 06/21/20 21:30 06/21/20 21:28 06/21/20 21:25 06/21/20 21:23 06/21/20 21:20 06/21/20 21:18 06/21/20 21:15 06/21/20 21:13 06/21/20 21:10 06/21/20 21:08 06/21/20 21:06 98 06/21/20 21:05 06/21/20 21:04 06/21/20 21:03 06/21/20 21:00 06/21/20 20:58 06/21/20 20:57 06/21/20 20:55 06/21/20 20:53 06/21/20 20:51 06/21/20 20:50 06/21/20 20:48 06/21/20 20:46 06/21/20 20:45 06/21/20 20:44 06/21/20 20:40 06/21/20 20:38 06/21/20 20:36 06/21/20 20:35 06/21/20 19:31 06/21/20 19:30 06/21/20 19:24 06/21/20 19:20 06/21/20 19:15 06/21/20 19:10 06/21/20 19:00 06/21/20 18:59 06/21/20 18:50 06/21/20 18:47 06/21/20 18:40 06/21/20 18:34 06/21/20 18:30 06/21/20 18:27 06/21/20 18:26 06/21/20 18:21 06/21/20 18:02 06/21/20 18:00 06/21/20 17:30 06/21/20 17:27 06/21/20 16:46 06/21/20 16:32 06/21/20 16:30 06/21/20 16:24 06/21/20 16:23 Pain Intensity Abdomen: Pain Intensity: 7 Notes Mental Status: alert / awake / arousable and participated in evaluation Patient Amnestic to Procedure: Yes Nausea / Vomiting: adequately controlled Pain: adequately controlled Airway Patency, RR, SpO2: stable & adequate BP & HR: stable & adequate (patient continues to be on levophed drip) Hydration State: stable & adequate Anesthetic Complications: no major complications apparent
[2020-06-22] MEDS ORDERED: CALCIUM CHLORIDE 10% 500 MG in SODIUM CHLORIDE 0.9% 50 ML IV STA (08:58)
[2020-06-22] MEDS ORDERED: INSULIN GLARGINE SOLOSTAR 100 UNITS/ML 3 ML PEN SC SCH (09:00)
--- NOTE | 2020-06-22 11:00 | Urology Progress Note ---
Date of Service June 22, 2020 Assessment & Plan (1) Sepsis: (2) Calculus of distal left ureter: (3) S/P ureteral stent placement: 79 yo F POD #1 s/p emergent cystoscopy and left stent placement with Dr. Ingram. - Pt subjectively improved today - Remains on pressors - Creatinine remains elevated but improved to 1.45, WBC elevated 22.91 - Tolerating ureteral stent with minimal bother - Chaudhry catheter intact and patent, draining blood tinged urine -low urine output overnight - UC&S pending; BCx prelim gram negative bacilli - continue IV abx, follow cultures - Continue supportive care and management per primary team - Expected clinical course reviewed, all questions answered - Will arrange appropriate outpatient follow-up with our service for definitive stone management Thank you for allowing us to participate in the acute care of Ms. Palomo. Please reconsult us with additional questions, concerns or changes in patient status. Admission and Anticipated Discharge Date Admission Date: June 21, 2020 Subjective 79 yo F POD #1 s/p emergent cystoscopy and left stent placement with Dr. Ingram. Patient seen and examined at bedside She remains in ICU on pressors - BP 90-110s/50s this AM. She is awake and resting in bed Reports she is feeling better this morning Denies flank or abdominal pain Low urine output noted per chart review Chaudhry catheter intact and patent, draining clear light red urine, some sediment noted No nausea or vomiting No fever or chills Chart review: Afebrile, Tmax 38.1 on 06/21 @2054 Creatinine 1.45 WBC 22.91 UC&S pending BCx prelim gram negative bacilli Remains on pressors On IV Zosyn, Daptomycin discontinued No additional concerns today. Review of Systems Constitutional: as per Subjective / HPI Gastrointestinal: as per Subjective / HPI Genitourinary: as per Subjective / HPI Physical Exam Constitutional: comfortable; no acute distress Respiratory: normal respiratory effort and able to speak in complete sentences; no respiratory distress and no labored breathing Cardiovascular: Extremities: no pedal edema Gastrointestinal (Abdomen): Inspection/Auscultation: abdomen normal to inspection; abdomen not distended Percussion/Palpation: abdomen soft; abdomen nontender and no guarding Musculoskeletal: Head/Neck/Chest: normocephalic and head atraumatic Skin: no rashes, warm and dry Neurologic: moves all extremities and awake Psychiatric: Orientation: alert, oriented to person and cooperative Genitourinary: no CVA tenderness Chaudhry catheter intact and patent, draining clear light red urine, some sediment noted Results & Data ([facility]) Vital Signs (Past 12 Hours) Vital Signs Temp Pulse Resp BP Pulse Ox 06/22/20 06:30 62 18 100 06/22/20 06:21 64 17 103/57 L 99 06/22/20 06:15 64 23 97 06/22/20 06:06 67 15 93/51 L 96 06/22/20 06:00 75 21 96 06/22/20 05:51 69 20 105/64 100 06/22/20 05:45 74 16 99 06/22/20 05:36 71 24 113/59 L 99 06/22/20 05:30 74 22 98 06/22/20 05:21 70 16 102/56 L 98 06/22/20 05:15 73 23 97 06/22/20 05:06 71 17 102/55 L 97 06/22/20 05:00 75 20 97 06/22/20 04:51 79 17 135/71 98 06/22/20 04:45 80 18 98 06/22/20 04:36 77 19 125/79 98 06/22/20 04:30 79 19 98 06/22/20 04:21 68 18 111/57 L 97 06/22/20 04:15 71 23 96 06/22/20 04:06 76 21 130/78 98 06/22/20 04:00 36.7 C 77 18 98 06/22/20 03:51 75 17 128/73 98 06/22/20 03:45 76 19 98 06/22/20 03:36 77 17 130/79 98 06/22/20 03:30 80 19 98 06/22/20 03:21 72 17 145/67 H 98 06/22/20 03:15 85 20 100 06/22/20 03:06 73 19 126/64 96 06/22/20 03:00 75 20 97 06/22/20 02:51 75 19 128/61 97 06/22/20 02:45 79 17 96 06/22/20 02:36 74 20 122/74 96 06/22/20 02:30 68 18 96 06/22/20 02:21 79 18 126/62 96 06/22/20 02:15 83 19 97 06/22/20 02:06 74 24 137/63 96 06/22/20 02:00 75 19 96 06/22/20 01:51 74 20 121/67 97 06/22/20 01:45 74 23 95 06/22/20 01:36 78 23 115/59 L 96 06/22/20 01:30 81 21 98 06/22/20 01:21 76 20 115/60 95 06/22/20 01:15 75 17 97 06/22/20 01:06 77 20 110/63 95 06/22/20 01:00 78 16 98 06/22/20 00:51 83 21 108/57 L 97 06/22/20 00:45 80 25 H 96 06/22/20 00:36 78 24 107/58 L 97 06/22/20 00:30 74 20 95 06/22/20 00:21 76 15 103/60 98 06/22/20 00:15 76 18 97 06/22/20 00:06 76 17 108/54 L 97 06/22/20 00:00 36.5 C 75 20 96 06/21/20 23:51 75 18 108/59 L 97 06/21/20 23:45 75 22 96 06/21/20 23:36 82 22 97/54 L 95 06/21/20 23:30 83 17 96 06/21/20 23:21 82 20 105/52 L 94 06/21/20 23:15 79 22 97 06/21/20 23:06 82 21 101/52 L 94 06/21/20 23:00 83 17 97 PG Care Time/CCT Total # of Minutes Spent Total Time Spent with Patient: Total time spent is greater than 50% in coordination of care (as documented) at patient's floor/unit and/or counseling patient: Coding Level of Care Code 40537 Subseq Hosp Care Lvl 2 Diagnoses Sepsis A41.9 Calculus of distal left ureter N20.1 S/P ureteral stent placement Z96.0
--- NOTE | 2020-06-22 11:05 | Billing Data ---
Date of Service June 22, 2020 Coding Level of Care Code 56711 Subseq Hosp Care Lvl 3
--- NOTE | 2020-06-22 14:16 | Electrocardiogram Report ---
Test Reason : Blood Pressure : / mmHG Vent. Rate : 118 BPM Atrial Rate : 034 BPM P-R Int : 000 ms QRS Dur : 114 ms QT Int : 416 ms P-R-T Axes : 000 -79 244 degrees QTc Int : 583 ms Poor data quality, interpretation may be adversely affected Probably atrial fibrillation with ocassional paced complexes Abnormal ECG When compared with ECG of 21-JUN-2020 16:40, (unconfirmed) Comparison is difficult due to very poor tracing currently Confirmed by Stephen Almanza ([id number]) on 06/22/2020 2:16:18 PM Referred By: REFERRED SELF Confirmed By:Stephen Almanza
--- NOTE | 2020-06-22 14:31 | Pharmacy Report ---
Pharmacy Glycemic Short Note 2 - Date of Service June 22, 2020 - Glycemic Short BSG Results (Last 24 hours): 06/21/20 06/21/20 06/21/20 17:08 17:15 22:02 Glucose 120 H POC Glucose 126 H POC Glucose (other) 121 H 06/22/20 06/22/20 06/22/20 04:37 05:21 11:35 Glucose 137 H POC Glucose 132 H 120 H POC Glucose (other) OUTPATIENT ANTIDIABETIC REGIMEN: * Lantus 12 units SQ qam * A1c: 6.6% ASSESSMENT: * POD #1 s/p emergent cystoscopy and left stent placement. She is growing gram negative bacilli in blood cxs and urine cx, receiving IV zosyn. She was on minimal norepinephrine. * BSGs have thus been very well controlled thus far with no insulin required. Patient was NPO now ordered a clear liquid diet for lunch, but there are no carbs documented. * I will maintain current novolog scale and add a conservative lantus scale this evening. PLAN FOR INPATIENT GLYCEMIC CONTROL: * Hold outpatient oral diabetes medications * Basal insulin * Lantus 0 or 7 units SQ HS based on BSG-see MAR for details * Bolus insulin * NovoLog per scale ACHS or Q6hrs while NPO * Goal Range: Low 110 mg/dL - High 150 mg/dL * Correction Factor: 30 mg/dL/unit * Nutritional / Prandial insulin per carb ratio of 1 unit per 10 grams CHO consumed
[2020-06-22] MEDS: DIGOXIN 0.125 MG TAB PO SCH (16:07)
--- NOTE | 2020-06-22 16:35 | Hospitalist Progress Note ---
Date of Service June 22, 2020 Assessment & Plan (1) Septic shock: (2) Encephalopathy due to infection: (3) Calculus of distal left ureter: Patient is an 79 yr old female with H/O Persistent atrial fibrillation anticoagulated on warfarin, T2DM, CAD, SSS s/p pacer, HTN, HLD, hypothyroidism, asthma, aortic valve stenosis, chronic HFpEF, mitral valve stenosis, CKD 3, GERD, MDS, iron deficiency anemia who presents to ED secondary to fever and abdominal pain x2 days. Septic shock Obstructive uropathy Acute metabolic encephalopathy Left hydroureteronephrosis Gram-negative bacteremia s/p cystoscopy and left stent placement with Dr. Ingram POD#1 Off pressors Blood, urine culture growing gram-negative bacilli Continue IV Zosyn Day #2 Appreciate dish room worker, urology input Home diuretics on hold Will repeat blood cultures tomorrow Continue IV fluids (4) Acute worsening of stage 3 chronic kidney disease: Likely post renal and ATN Creatinine 1.5>1.4 Monitor renal function Avoid nephrotoxic agents as able (5) CAD (coronary artery disease): CAD Persistent atrial fibrillation on warfarin SSS s/p PPM Mitral stenosis, aortic stenosis pulmonary hypertension chronic HFpEF and mild ischemic cardiomyopathy Resume Plavix INR therapeutic range: 2.7 Hold Coumadin today Monitor INR Continue metoprolol with holding parameters (6) Chronic heart failure with preserved ejection fraction (HFpEF): (7) Mild aortic stenosis: (8) Mitral stenosis: Last echo 02/2020 EF 65 to 70%, grade 3 diastolic dysfunction with restrictive physiology, reduced RV systolic function, mild aortic stenosis, moderate mitral stenosis, severe left atrial enlargement, pulmonary hypertension, moderate TR Daily weights, strict I's and O's Monitor volume status Continue metoprolol Resume Lasix as able (9) Atrial fibrillation: Rate controlled Continue metoprolol, digoxin INR 2.7 Resume warfarin as able (10) MDS (myelodysplastic syndrome): hx of HOMERO On iron and vitamin B12 as outpatient Monitor CBC (11) DM type 2 (diabetes mellitus, type 2): HbA1c 6.6 Continue insulin therapy Monitor BGs (12) Hypothyroidism: Continue levothyroxine (13) DVT prophylaxis: INR 2.7 Resume Coumadin as able CODE STATUS Full code Disposition PT OT prior to discharge Admission and Anticipated Discharge Date Admission Date: June 21, 2020 Subjective Patient is seen and examined at bedside States feeling much better today Off pressors Denies any flank pain Blood pressure stable Denies chest pain, dyspnea, dizziness, nausea, abdominal pain Review of Systems Review of Systems: All systems reviewed & are unremarkable except as noted in HPI & below Physical Exam Physical Exam: Physical Exam: Vitals signs as noted above General Appearance:Moderately built and nourished, no apparent distress, Elderly Head: normocephalic, Atraumatic Eyes: normal inspection, EOMI Neck: supple, Trachea midline Respiratory/Chest: Normal breath sounds, CTA Cardiovascular: Irregularly irregular, no murmur Abdomen/GI:Soft, Non tender, Bowel sounds present Extremities/Musculoskeletal:normal inspection, Trace edema Neurologic/Psych:AAOX3, grossly no focal neurological deficits, +Hearing impairment Skin: normal color, warm Results & Data Results & Data ([facility]) Vital Signs (Past 12 Hours) Vital Signs Temp Pulse Resp BP Pulse Ox 06/22/20 16:07 60 06/22/20 14:07 60 18 109/56 L 100 06/22/20 14:00 60 17 100 06/22/20 13:52 60 20 115/62 100 06/22/20 13:37 64 18 125/66 100 06/22/20 13:22 60 11 L 90/50 L 98 06/22/20 13:07 60 20 88/46 L 99 06/22/20 13:00 61 16 98 06/22/20 12:52 60 19 90/46 L 97 06/22/20 12:37 60 26 H 97/51 L 96 06/22/20 12:22 61 22 107/55 L 99 06/22/20 12:07 60 18 106/61 100 06/22/20 12:00 62 18 100 06/22/20 11:52 63 16 87/48 L 99 06/22/20 11:37 64 18 104/51 L 98 06/22/20 11:30 36.6 C 06/22/20 11:22 60 17 96/49 L 98 06/22/20 11:07 60 19 100/53 L 95 06/22/20 11:00 62 19 99 06/22/20 10:52 61 21 97/52 L 97 06/22/20 10:37 60 18 104/53 L 97 06/22/20 10:22 62 25 H 97/49 L 100 06/22/20 10:08 62 18 82/49 L 93 06/22/20 10:00 67 18 100 06/22/20 09:52 62 114/52 L 99 06/22/20 09:37 71 96/56 L 99 06/22/20 09:22 84 91/52 L 96 06/22/20 09:07 66 108/54 L 98 06/22/20 09:00 69 100 06/22/20 08:52 67 29 H 97/53 L 100 06/22/20 08:37 69 108/57 L 100 06/22/20 08:22 68 111/59 L 98 06/22/20 08:07 70 116/59 L 99 06/22/20 08:00 36.6 C 69 20 97 06/22/20 07:52 72 21 112/66 98 06/22/20 07:37 64 16 68/53 L 99 06/22/20 07:21 60 16 99/51 L 98 06/22/20 07:06 60 13 93/42 L 98 06/22/20 07:00 62 12 98 06/22/20 06:51 61 22 83/45 L 97 06/22/20 06:36 61 19 84/49 L 99 06/22/20 06:30 62 18 100 06/22/20 06:21 64 17 103/57 L 99 06/22/20 06:15 64 23 97 06/22/20 06:06 67 15 93/51 L 96 06/22/20 06:00 75 21 96 06/22/20 05:51 69 20 105/64 100 06/22/20 05:45 74 16 99 06/22/20 05:36 71 24 113/59 L 99 06/22/20 05:30 74 22 98 06/22/20 05:21 70 16 102/56 L 98 06/22/20 05:15 73 23 97 06/22/20 05:06 71 17 102/55 L 97 06/22/20 05:00 75 20 97 06/22/20 04:51 79 17 135/71 98 06/22/20 04:45 80 18 98 06/22/20 04:36 77 19 125/79 98 Laboratory Results Short CBC 06/21/20 06/22/20 Range/Units 17:08 04:37 WBC 4.54 L 22.91 H D (4.8-10.8) K/uL Hgb 10.9 L 10.4 L (12.0-16.0) g/dL Hct 32.8 L 31.5 L (37-47) % Plt Count 154 162 (130-400) K/uL BMP 06/21/20 06/22/20 17:08 04:37 Sodium 140 142 Potassium 4.1 3.9 Chloride 107 111 H Carbon Dioxide 26 24 BUN 21 H 24 H Creatinine 1.55 H 1.45 H Glucose 120 H 137 H Calcium 7.9 L 7.1 L Cardiac Enzymes 06/21/20 06/22/20 Range/Units 23:41 04:37 Troponin I 0.117 H* 0.118 H* (0-0.045) ng/ml Liver Function 06/21/20 06/22/20 Range/Units 17:08 04:37 Total Bilirubin 0.7 0.5 (0.2-1) mg/dl AST 27 40 H (15-37) U/L ALT 16 22 (12-78) U/L Alkaline Phosphatase 104 79 (45-117) U/L Albumin 2.8 L 2.3 L (3.4-5.0) gm/dl Urine 06/21/20 Range/Units 17:15 Urine Color Yellow Urine Appearance Clear (Clear) Urine pH 5.0 (4.5-7.5) Ur Specific [place] 1.015 (1.000-1.030) Urine Protein Negative (Negative) Urine Glucose (UA) Negative (Negative) (1) CAD (coronary artery disease) Coronary Disease-Associated Artery/Lesion type: [place] artery [place] vs. transplanted heart: [place] heart Associated angina: without angina Qualified Code(s): I25.10 - Atherosclerotic heart disease of [place] coronary artery without angina pectoris
[2020-06-22] MEDS ORDERED: DAPTOmycin 425 MG in SYRINGE 0 ML IV SCH (18:00)
[2020-06-22] MEDS ORDERED: NITROGLYCERIN SL 0.4 MG/TAB TAB SL PRN (20:25)
[2020-06-22] MEDS: INSULIN GLARGINE SOLOSTAR 100 UNITS/ML 3 ML PEN SC SCH (20:29)
[2020-06-22] MEDS: NOREPINEPHRINE/D5W 8 MG/508 ML BAG IV SCH (22:17)
[2020-06-23 05:24] LABS: Basophils # (auto) 0.02 K/uL (0-0.2); Basophils % (auto) 0.2 %; Eosinophils # (auto) 0.13 K/uL (0-0.5); Eosinophils % (auto) 1.2 %; Hematocrit (blood only) 28.1 % (37-47); Hemoglobin 9.4 g/dL (12.0-16.0); Immature Granulocytes # (auto) 0.05 K/uL (0.00-0.02); Immature Granulocytes % (auto) 0.4 %; Lymphocytes # (auto) 0.75 K/uL (1.2-3.4); Lymphocytes % (auto) 6.7 %; Mean Corpuscular Hemoglobin 29.8 pg (25-34); Mean Corpuscular Hgb Conc 33.5 g/dL (32-36); Mean Corpuscular Volume 89.2 fL (80-100); Mean Platelet Volume 10.9 fL (7.4-10.4); Monocytes # (auto) 0.46 K/uL (0.11-0.59); Monocytes % (auto) 4.1 %; Neutrophils # (auto) 9.76 K/uL (1.4-6.5); Neutrophils % (auto) 87.4 %; Platelet Count 124 K/uL (130-400); RDW Coefficient of Variation 14.6 % (11.5-14.5); RDW Standard Deviation 48.2 fL (36.4-46.3); Red Blood Count 3.15 M/uL (4.2-5.4); White Blood Count 11.17 K/uL (4.8-10.8)
[2020-06-23 05:33] LABS: INR 3.3 (0.9-1.1); Prothrombin Time 30.2 Seconds (9.0-12.0)
[2020-06-23 05:41] LABS: BUN Creatinine Ratio 16.1 (10-20); Calcium 7.6 mg/dl (8.5-10.1); Creatinine Clr Calc Pharmacy 29.5 ml/min; Est GFR (African American) 33.4; Est GFR (Non-African American) 28.8; Magnesium 2.5 mg/dl (1.8-2.4); Potassium 3.7 mmol/L (3.5-5.1)
[2020-06-23] MEDS: LEVOTHYROXINE SODIUM 50 MCG TABLET PO SCH (06:05)
[2020-06-23] MEDS: INSULIN ASPART 100 UNITS/ML 3 ML PEN SC SCH ×4 (07:30→20:18)
[2020-06-23] MEDS: FERROUS SULFATE 325 MG TAB PO SCH ×2 (08:49→18:18)
[2020-06-23] MEDS: METOPROLOL SUCC 25MG EXT REL TAB PO SCH (08:50)
[2020-06-23] MEDS: CITALOPRAM 40 MG TAB PO SCH (08:50)
[2020-06-23] MEDS: CLOPIDOGREL BISULFATE 75 MG TAB PO SCH (08:50)
[2020-06-23] MEDS: FAMOTIDINE 20 MG TAB PO SCH (08:51)
[2020-06-23] MEDS: PIPERACILLIN/TAZOBACTAM 3.375 GM in DEXTROSE 5% 100 ML IV SCH ×3 (08:51→23:06)
[2020-06-23] MEDS: SODIUM CHLORIDE 0.9% 1000ML 1,000 ML IV SCH (10:05)
--- NOTE | 2020-06-23 17:26 | Hospitalist Progress Note ---
Date of Service June 23, 2020 Assessment & Plan (1) Septic shock: (2) Encephalopathy due to infection: (3) Calculus of distal left ureter: Patient is an 79 yr old female with H/O Persistent atrial fibrillation anticoagulated on warfarin, T2DM, CAD, SSS s/p pacer, HTN, HLD, hypothyroidism, asthma, aortic valve stenosis, chronic HFpEF, mitral valve stenosis, CKD 3, GERD, MDS, iron deficiency anemia who presents to ED secondary to fever and abdominal pain x2 days. Septic shock Obstructive uropathy Acute metabolic encephalopathy Left hydroureteronephrosis Gram-negative bacteremia s/p cystoscopy and left stent placement with Dr. Ingram POD#1 Off pressors Blood culture growing gram-negative bacilli Repeat blood cultures pending Urine culture E. coli Continue IV Zosyn Day #3 Appreciate compensation manager, urology input Home diuretics on hold On gentle IV fluids Diarrhea Check stool for C. difficile if recurrent (4) Acute worsening of stage 3 chronic kidney disease: Likely post renal and ATN Creatinine 1.5>1.65 Monitor renal function Avoid nephrotoxic agents as able (5) CAD (coronary artery disease): CAD Persistent atrial fibrillation on warfarin SSS s/p PPM Mitral stenosis, aortic stenosis pulmonary hypertension chronic HFpEF and mild ischemic cardiomyopathy Continue Plavix INR Supratherapeutic range: 3.3 Hold Coumadin Monitor INR Continue metoprolol with holding parameters (6) Chronic heart failure with preserved ejection fraction (HFpEF): (7) Mild aortic stenosis: (8) Mitral stenosis: Last echo 02/2020 EF 65 to 70%, grade 3 diastolic dysfunction with restrictive physiology, reduced RV systolic function, mild aortic stenosis, moderate mitral stenosis, severe left atrial enlargement, pulmonary hypertension, moderate TR Daily weights, strict I's and O's Monitor volume status Continue metoprolol Resume Lasix as able (9) Atrial fibrillation: Rate controlled Continue metoprolol, digoxin INR 3.3 Resume warfarin when appropriate (10) MDS (myelodysplastic syndrome): hx of HOMERO On iron and vitamin B12 as outpatient Monitor CBC (11) DM type 2 (diabetes mellitus, type 2): HbA1c 6.6 Continue insulin therapy Monitor BGs (12) Hypothyroidism: Continue levothyroxine (13) DVT prophylaxis: INR supratherapeutic Coumadin on hold CODE STATUS Full code Disposition PT OT prior to discharge Admission and Anticipated Discharge Date Admission Date: June 21, 2020 Subjective Patient is seen and examined at bedside States having 2 loose bowel movements today Otherwise feels well Denies chest pain, dyspnea, dizziness, nausea, abdominal/flank pain or dysuria Review of Systems Review of Systems: All systems reviewed & are unremarkable except as noted in HPI & below Physical Exam Physical Exam: Physical Exam: Vitals signs as noted above General Appearance:Moderately built and nourished, no apparent distress, Elderly Head: normocephalic, Atraumatic Eyes: normal inspection, EOMI Neck: supple, Trachea midline Respiratory/Chest: Normal breath sounds, CTA Cardiovascular: Irregularly irregular, no murmur Abdomen/GI:Soft, Non tender, Bowel sounds present Extremities/Musculoskeletal:normal inspection, Trace edema Neurologic/Psych:AAOX3, grossly no focal neurological deficits, +Hearing impairment Skin: normal color, warm Results & Data Results & Data ([facility]) Vital Signs (Past 12 Hours) Vital Signs Temp Pulse Pulse Resp BP BP Pulse Ox 06/23/20 14:55 36.7 C 70 18 129/79 98 06/23/20 14:50 76 06/23/20 14:00 60 18 100 06/23/20 13:00 62 20 98 06/23/20 12:00 36.7 C 60 16 97 06/23/20 11:33 62 18 124/68 98 06/23/20 11:00 60 20 97 06/23/20 10:00 60 23 99 06/23/20 09:17 60 16 127/60 97 06/23/20 09:00 63 25 H 127/60 99 06/23/20 08:00 36.4 C 63 20 100 06/23/20 07:00 63 20 97 06/23/20 06:00 63 24 93 Laboratory Results Short CBC 06/23/20 Range/Units 04:53 WBC 11.17 H (4.8-10.8) K/uL Hgb 9.4 L (12.0-16.0) g/dL Hct 28.1 L (37-47) % Plt Count 124 L (130-400) K/uL BMP 06/23/20 04:53 Sodium 141 Potassium 3.7 Chloride 112 H Carbon Dioxide 24 BUN 27 H Creatinine 1.65 H Glucose 72 Calcium 7.6 L (1) CAD (coronary artery disease) Coronary Disease-Associated Artery/Lesion type: [place] artery [place] vs. transplanted heart: [place] heart Associated angina: without angina Qualified Code(s): I25.10 - Atherosclerotic heart disease of [place] coronary artery without angina pectoris
[2020-06-23] MEDS: LACTOBACILLUS ACIDOPHILUS 1 GM PACK PO SCH (18:00)
[2020-06-23] MEDS: INSULIN GLARGINE SOLOSTAR 100 UNITS/ML 3 ML PEN SC SCH (20:19)
[2020-06-24] MEDS: LEVOTHYROXINE SODIUM 50 MCG TABLET PO SCH (05:25)
[2020-06-24 07:23] LABS: Basophils # (auto) 0.03 K/uL (0-0.2); Basophils % (auto) 0.5 %; Eosinophils # (auto) 0.09 K/uL (0-0.5); Eosinophils % (auto) 1.4 %; Hematocrit (blood only) 29.8 % (37-47); Immature Granulocytes # (auto) 0.01 K/uL (0.00-0.02); Immature Granulocytes % (auto) 0.2 %; Lymphocytes # (auto) 0.63 K/uL (1.2-3.4); Lymphocytes % (auto) 9.7 %; Mean Corpuscular Hgb Conc 33.6 g/dL (32-36); Mean Corpuscular Volume 89.5 fL (80-100); Mean Platelet Volume 11.1 fL (7.4-10.4); Monocytes # (auto) 0.37 K/uL (0.11-0.59); Monocytes % (auto) 5.7 %; Neutrophils # (auto) 5.34 K/uL (1.4-6.5); Neutrophils % (auto) 82.5 %; Platelet Count 132 K/uL (130-400); RDW Coefficient of Variation 14.1 % (11.5-14.5); RDW Standard Deviation 46.8 fL (36.4-46.3); Red Blood Count 3.33 M/uL (4.2-5.4); White Blood Count 6.47 K/uL (4.8-10.8)
[2020-06-24 07:31] LABS: INR 2.8 (0.9-1.1); Prothrombin Time 26.6 Seconds (9.0-12.0)
[2020-06-24 07:52] LABS: BUN Creatinine Ratio 13.8 (10-20); Calcium 7.7 mg/dl (8.5-10.1); Creatinine Clr Calc Pharmacy 30.5 ml/min; Est GFR (African American) 34.1; Est GFR (Non-African American) 29.5; Magnesium 2.4 mg/dl (1.8-2.4)
[2020-06-24] MEDS: CLOPIDOGREL BISULFATE 75 MG TAB PO SCH (08:13)
[2020-06-24] MEDS: CITALOPRAM 40 MG TAB PO SCH (08:13)
[2020-06-24] MEDS: METOPROLOL SUCC 25MG EXT REL TAB PO SCH (08:13)
[2020-06-24] MEDS: FERROUS SULFATE 325 MG TAB PO SCH ×2 (08:13→17:17)
[2020-06-24] MEDS: PIPERACILLIN/TAZOBACTAM 3.375 GM in DEXTROSE 5% 100 ML IV SCH ×2 (08:14→17:16)
[2020-06-24] MEDS: INSULIN ASPART 100 UNITS/ML 3 ML PEN SC SCH ×4 (08:16→21:52)
[2020-06-24] MEDS: FAMOTIDINE 20 MG TAB PO SCH (10:00)
[2020-06-24] MEDS: LACTOBACILLUS ACIDOPHILUS 1 GM PACK PO SCH ×3 (10:00→17:17)
--- NOTE | 2020-06-24 18:31 | Hospitalist Progress Note ---
Date of Service June 24, 2020 Assessment & Plan (1) Septic shock: (2) Encephalopathy due to infection: (3) Calculus of distal left ureter: Patient is an 79 yr old female with H/O Persistent atrial fibrillation anticoagulated on warfarin, T2DM, CAD, SSS s/p pacer, HTN, HLD, hypothyroidism, asthma, aortic valve stenosis, chronic HFpEF, mitral valve stenosis, CKD 3, GERD, MDS, iron deficiency anemia who presents to ED secondary to fever and abdominal pain x2 days. Septic shock Obstructive uropathy Acute metabolic encephalopathy Left hydroureteronephrosis Gram-negative bacteremia s/p cystoscopy and left stent placement with Dr. Ingram POD#2 Off pressors Blood culture: E.Coli Repeat blood cultures: No growth to date Urine culture E. coli Continue IV Zosyn Day #4 Appreciate pig machine operator helper, urology input Resume diuretics as able Received IV fluids Procalcitonin:51>24 Diarrhea Check stool for C. difficile if recurrent (4) Acute worsening of stage 3 chronic kidney disease: Likely post renal and ATN Creatinine 1.5>1.65>1.62 Monitor renal function Avoid nephrotoxic agents as able Renal function plateaued (5) CAD (coronary artery disease): CAD Persistent atrial fibrillation on warfarin SSS s/p PPM Mitral stenosis, aortic stenosis pulmonary hypertension chronic HFpEF and mild ischemic cardiomyopathy Continue Plavix INR Supratherapeutic range: 3.3>2.8 Hold Coumadin Monitor INR Continue metoprolol with holding parameters (6) Chronic heart failure with preserved ejection fraction (HFpEF): (7) Mild aortic stenosis: (8) Mitral stenosis: Last echo 02/2020 EF 65 to 70%, grade 3 diastolic dysfunction with restrictive physiology, reduced RV systolic function, mild aortic stenosis, moderate mitral stenosis, severe left atrial enlargement, pulmonary hypertension, moderate TR Daily weights, strict I's and O's Monitor volume status Continue metoprolol Resume Lasix as able (9) Atrial fibrillation: Rate controlled Continue metoprolol, digoxin INR 2.8 Resume warfarin when appropriate (10) MDS (myelodysplastic syndrome): hx of HOMERO On iron and vitamin B12 as outpatient Monitor CBC (11) DM type 2 (diabetes mellitus, type 2): HbA1c 6.6 Continue insulin therapy Monitor BGs (12) Hypothyroidism: Continue levothyroxine (13) DVT prophylaxis: INR supratherapeutic Coumadin on hold CODE STATUS Full code Disposition PT OT prior to discharge Admission and Anticipated Discharge Date Admission Date: June 21, 2020 Subjective Patient is seen and examined at bedside States feeling tired Denies chest pain, dyspnea, dizziness, nausea, abdominal/flank pain or dysuria Offers no other complaints Review of Systems Review of Systems: All systems reviewed & are unremarkable except as noted in HPI & below Physical Exam Physical Exam: Physical Exam: Vitals signs as noted above General Appearance:Moderately built and nourished, no apparent distress, Elderly Head: normocephalic, Atraumatic Eyes: normal inspection, EOMI Neck: supple, Trachea midline Respiratory/Chest: Normal breath sounds, CTA Cardiovascular: Irregularly irregular, no murmur Abdomen/GI:Soft, Non tender, Bowel sounds present Extremities/Musculoskeletal:normal inspection, Trace edema Neurologic/Psych:AAOX3, grossly no focal neurological deficits, +Hearing impairment Skin: normal color, warm Results & Data Results & Data ([place]) Vital Signs (Past 12 Hours) Vital Signs Temp Pulse Pulse Resp BP Pulse Ox 06/24/20 15:00 36.8 C 62 18 112/70 95 06/24/20 10:54 36.7 C 61 18 120/71 97 06/24/20 08:00 60 06/24/20 07:00 36.7 C 63 18 130/74 94 Laboratory Results Short CBC 06/24/20 Range/Units 07:04 WBC 6.47 (4.8-10.8) K/uL Hgb 10.0 L (12.0-16.0) g/dL Hct 29.8 L (37-47) % Plt Count 132 (130-400) K/uL BMP 06/24/20 07:04 Sodium 141 Potassium 4.0 Chloride 114 H Carbon Dioxide 22 BUN 22 H Creatinine 1.62 H Glucose 76 Calcium 7.7 L (1) CAD (coronary artery disease) Coronary Disease-Associated Artery/Lesion type: [place] artery [place] vs. transplanted heart: [place] heart Associated angina: without angina Qualified Code(s): I25.10 - Atherosclerotic heart disease of [place] coronary artery without angina pectoris
[2020-06-24] MEDS: INSULIN GLARGINE SOLOSTAR 100 UNITS/ML 3 ML PEN SC SCH (21:48)
[2020-06-25] MEDS: PIPERACILLIN/TAZOBACTAM 3.375 GM in DEXTROSE 5% 100 ML IV SCH ×2 (01:10→08:28)
[2020-06-25] MEDS: LEVOTHYROXINE SODIUM 50 MCG TABLET PO SCH (06:18)
[2020-06-25 07:47] LABS: Hematocrit (blood only) 31.4 % (37-47); Hemoglobin 10.6 g/dL (12.0-16.0); Mean Corpuscular Hemoglobin 30.2 pg (25-34); Mean Corpuscular Hgb Conc 33.8 g/dL (32-36); Mean Corpuscular Volume 89.5 fL (80-100); Platelet Count 156 K/uL (130-400); RDW Coefficient of Variation 14.3 % (11.5-14.5); RDW Standard Deviation 46.5 fL (36.4-46.3); Red Blood Count 3.51 M/uL (4.2-5.4); White Blood Count 4.33 K/uL (4.8-10.8)
[2020-06-25 08:06] LABS: INR 2.4 (0.9-1.1); Prothrombin Time 22.3 Seconds (9.0-12.0)
[2020-06-25] MEDS: METOPROLOL SUCC 25MG EXT REL TAB PO SCH (08:24)
[2020-06-25] MEDS: FERROUS SULFATE 325 MG TAB PO SCH ×2 (08:24→17:14)
[2020-06-25] MEDS: LACTOBACILLUS ACIDOPHILUS 1 GM PACK PO SCH ×3 (08:24→17:14)
[2020-06-25 08:25] LABS: BUN Creatinine Ratio 12.4 (10-20); Calcium 8.3 mg/dl (8.5-10.1); Creatinine Clr Calc Pharmacy 31.9 ml/min; Est GFR (Non-African American) 31.1; Potassium 3.7 mmol/L (3.5-5.1)
[2020-06-25] MEDS: CLOPIDOGREL BISULFATE 75 MG TAB PO SCH (08:25)
[2020-06-25] MEDS: CITALOPRAM 40 MG TAB PO SCH (08:25)
[2020-06-25] MEDS: FAMOTIDINE 20 MG TAB PO SCH (08:25)
[2020-06-25] MEDS: INSULIN ASPART 100 UNITS/ML 3 ML PEN SC SCH ×4 (08:25→21:25)
--- NOTE | 2020-06-25 08:58 | Pharmacy Report ---
Pharmacy Glycemic Short Note 2 - Date of Service June 25, 2020 - Glycemic Short BSG Results (Last 24 hours): 06/24/20 06/24/20 06/24/20 11:21 16:25 20:29 Glucose POC Glucose 116 H 139 H 156 H 06/25/20 06/25/20 07:15 07:32 Glucose 87 POC Glucose 93 OUTPATIENT ANTIDIABETIC REGIMEN: * Lantus 12 units SQ qam * A1c: 6.6% (06/22/20) ASSESSMENT: 06/25: * BSGs have been well controlled over past 48 hours, ranging 81-156 mg/dL * Patient received 7 units of bolus insulin yesterday (no basal) * Fasting BSG of 93 mg/dL this morning * Lunch BSG of 171 mg/dL - will tighten carb coverage back to 10 06/22: * POD #1 s/p emergent cystoscopy and left stent placement. She is growing gram negative bacilli in blood cxs and urine cx, receiving IV zosyn. She was on minimal norepinephrine. * BSGs have thus been very well controlled thus far with no insulin required. Patient was NPO now ordered a clear liquid diet for lunch, but there are no carbs documented. * I will maintain current novolog scale and add a conservative lantus scale this evening. PLAN FOR INPATIENT GLYCEMIC CONTROL: * Basal insulin * Lantus SC HS 0-5 units (see EHR for details) * Bolus insulin * NovoLog per scale ACHS or Q6hrs while NPO * Goal Range: Low 110 mg/dL - High 150 mg/dL * Correction Factor: 30 mg/dL/unit * Nutritional / Prandial insulin per carb ratio of 1 unit per 10 grams CHO consumed PLAN FOR DISCHARGE: * HbA1c of 6.6% suggests excellent outpatient glycemic control * If appetite is returned to baseline at discharge and patient not experiencing hypoglycemia as an outpatient it is reasonable to continue current outpatient Lantus 12 units SC daily * Otherwise, a reduction may be warranted (will continue to follow inpatient insulin needs)
[2020-06-25] MEDS ORDERED: CEFEPIME 2,000 MG in SYRINGE 0 ML IV SCH (16:00)
[2020-06-25] MEDS: DIGOXIN 0.125 MG TAB PO SCH (17:14)
--- NOTE | 2020-06-25 18:21 | Hospitalist Progress Note ---
Date of Service June 25, 2020 Assessment & Plan (1) Septic shock: (2) Encephalopathy due to infection: (3) Calculus of distal left ureter: Patient is an 79 yr old female with H/O Persistent atrial fibrillation anticoagulated on warfarin, T2DM, CAD, SSS s/p pacer, HTN, HLD, hypothyroidism, asthma, aortic valve stenosis, chronic HFpEF, mitral valve stenosis, CKD 3, GERD, MDS, iron deficiency anemia who presents to ED secondary to fever and abdominal pain x2 days. Septic shock Obstructive uropathy Acute metabolic encephalopathy Left hydroureteronephrosis Gram-negative bacteremia s/p cystoscopy and left stent placement with Dr. Ingram POD#3 Off pressors Blood culture: E.Coli Repeat blood cultures: No growth to date Urine culture E. coli Continue IV Zosyn Day #4>> incision to cefepime Day #1 Appreciate casino cage supervisor, urology input Resume diuretics as able Received IV fluids Procalcitonin trending down To complete 14 days of antibiotic therapy Diarrhea Stool for C. difficile negative (4) Acute worsening of stage 3 chronic kidney disease: Likely post renal and ATN Creatinine 1.5>1.65>1.62>1.55 Monitor renal function Avoid nephrotoxic agents as able Renal function plateaued (5) CAD (coronary artery disease): CAD Persistent atrial fibrillation on warfarin SSS s/p PPM Mitral stenosis, aortic stenosis pulmonary hypertension chronic HFpEF and mild ischemic cardiomyopathy Continue Plavix INR Supratherapeutic range: 3.3>2.8>2.4 Hold Coumadin Monitor INR Continue metoprolol with holding parameters (6) Chronic heart failure with preserved ejection fraction (HFpEF): (7) Mild aortic stenosis: (8) Mitral stenosis: Last echo 02/2020 EF 65 to 70%, grade 3 diastolic dysfunction with restrictive physiology, reduced RV systolic function, mild aortic stenosis, moderate mitral stenosis, severe left atrial enlargement, pulmonary hypertension, moderate TR Daily weights, strict I's and O's Monitor volume status Continue metoprolol Resume Lasix tomorrow (9) Atrial fibrillation: Rate controlled Continue metoprolol, digoxin INR 2.8 Resume warfarin when appropriate (10) MDS (myelodysplastic syndrome): hx of HOMERO On iron and vitamin B12 as outpatient Monitor CBC (11) DM type 2 (diabetes mellitus, type 2): HbA1c 6.6 Continue insulin therapy Monitor BGs (12) Hypothyroidism: Continue levothyroxine (13) DVT prophylaxis: INR supratherapeutic Coumadin on hold CODE STATUS Full code Disposition PT OT prior to discharge Admission and Anticipated Discharge Date Admission Date: June 21, 2020 Subjective Patient is seen and examined at bedside States having generalized weakness and some abdominal discomfort rated Offers no other complaints No distress on exam Denies chest pain, dyspnea, dizziness, nausea, dysuria Review of Systems Review of Systems: All systems reviewed & are unremarkable except as noted in HPI & below Physical Exam Physical Exam: Physical Exam: Vitals signs as noted above General Appearance:Moderately built and nourished, no apparent distress, Elderly Head: normocephalic, Atraumatic Eyes: normal inspection, EOMI Neck: supple, Trachea midline Respiratory/Chest: Normal breath sounds, CTA Cardiovascular: Irregularly irregular, no murmur Abdomen/GI:Soft, Non tender, Bowel sounds present Extremities/Musculoskeletal:normal inspection, Trace edema Neurologic/Psych:AAOX3, grossly no focal neurological deficits, +Hearing impairment Skin: normal color, warm Results & Data Results & Data ([facility]) Vital Signs (Past 12 Hours) Vital Signs Temp Pulse Pulse Resp BP Pulse Ox Pulse Ox 06/25/20 17:14 75 06/25/20 16:00 81 06/25/20 15:50 36.9 C 71 16 145/72 H 98 06/25/20 13:43 97 06/25/20 13:05 60 135/72 06/25/20 11:40 36.4 C L 62 16 85/52 L 95 06/25/20 07:24 36.4 C L 60 16 159/76 H 97 06/25/20 07:23 60 Laboratory Results Short CBC 06/25/20 Range/Units 07:15 WBC 4.33 L (4.8-10.8) K/uL Hgb 10.6 L (12.0-16.0) g/dL Hct 31.4 L (37-47) % Plt Count 156 (130-400) K/uL BMP 06/25/20 07:15 Sodium 142 Potassium 3.7 Chloride 113 H Carbon Dioxide 22 BUN 19 H Creatinine 1.55 H Glucose 87 Calcium 8.3 L (1) CAD (coronary artery disease) Coronary Disease-Associated Artery/Lesion type: [place] artery [place] vs. tr ansplanted heart: [place] heart Associated angina: without angina Qualified Code(s): I25.10 - Atherosclerotic heart disease of [place] coronary artery without angina pectoris
[2020-06-25] MEDS: INSULIN GLARGINE SOLOSTAR 100 UNITS/ML 3 ML PEN SC SCH (21:24)
[2020-06-26] MEDS: LEVOTHYROXINE SODIUM 50 MCG TABLET PO SCH (06:22)
[2020-06-26 06:45] LABS: Hematocrit (blood only) 31.7 % (37-47); Hemoglobin 10.8 g/dL (12.0-16.0); Mean Corpuscular Hemoglobin 30.1 pg (25-34); Mean Corpuscular Hgb Conc 34.1 g/dL (32-36); Mean Corpuscular Volume 88.3 fL (80-100); Mean Platelet Volume 10.6 fL (7.4-10.4); Platelet Count 173 K/uL (130-400); RDW Coefficient of Variation 13.9 % (11.5-14.5); RDW Standard Deviation 45.1 fL (36.4-46.3); Red Blood Count 3.59 M/uL (4.2-5.4); White Blood Count 4.01 K/uL (4.8-10.8)
[2020-06-26 06:58] LABS: INR 1.9 (0.9-1.1); Prothrombin Time 18.6 Seconds (9.0-12.0)
[2020-06-26 07:25] LABS: BUN Creatinine Ratio 12.1 (10-20); Calcium 7.8 mg/dl (8.5-10.1); Creatinine Clr Calc Pharmacy 37.1 ml/min; Est GFR (Non-African American) 37.1; Potassium 3.8 mmol/L (3.5-5.1)
[2020-06-26] MEDS: INSULIN ASPART 100 UNITS/ML 3 ML PEN SC SCH ×2 (08:07→12:36)
[2020-06-26] MEDS: FERROUS SULFATE 325 MG TAB PO SCH (08:10)
[2020-06-26] MEDS: CLOPIDOGREL BISULFATE 75 MG TAB PO SCH (08:10)
[2020-06-26] MEDS: FAMOTIDINE 20 MG TAB PO SCH (08:10)
[2020-06-26] MEDS: CITALOPRAM 40 MG TAB PO SCH (08:10)
[2020-06-26] MEDS: LACTOBACILLUS ACIDOPHILUS 1 GM PACK PO SCH ×2 (08:10→12:37)
[2020-06-26] MEDS: METOPROLOL SUCC 25MG EXT REL TAB PO SCH (08:11)
[2020-06-26] MEDS ORDERED: FUROSEMIDE 20 MG TAB PO SCH (09:00)
--- NOTE | 2020-06-26 13:46 | Hospitalist Progress Note ---
Date of Service June 26, 2020 Assessment & Plan (1) Septic shock: (2) Encephalopathy due to infection: (3) Calculus of distal left ureter: Patient is an 79 yr old female with H/O Persistent atrial fibrillation anticoagulated on warfarin, T2DM, CAD, SSS s/p pacer, HTN, HLD, hypothyroidism, asthma, aortic valve stenosis, chronic HFpEF, mitral valve stenosis, CKD 3, GERD, MDS, iron deficiency anemia who presents to ED secondary to fever and abdominal pain x2 days. Septic shock Obstructive uropathy Acute metabolic encephalopathy Left hydroureteronephrosis Gram-negative bacteremia s/p cystoscopy and left stent placement with Dr. Ingram POD#4 Off pressors Blood culture: E.Coli Repeat blood cultures: No growth to date Urine culture E. coli Continue IV Zosyn Day #4>> incision to cefepime started on 06/25/20 Appreciate respiratory therapy manager, urology input Received IV fluids Procalcitonin trended down To complete 14 days of antibiotic therapy Continue current treatment Diarrhea Stool for C. difficile negative (4) Acute worsening of stage 3 chronic kidney disease: Likely post renal and ATN Creatinine 1.5>1.65>1.62>1.55>1.34 Monitor renal function Avoid nephrotoxic agents as able Renal function plateaued (5) CAD (coronary artery disease): CAD Persistent atrial fibrillation on warfarin SSS s/p PPM Mitral stenosis, aortic stenosis pulmonary hypertension chronic HFpEF and mild ischemic cardiomyopathy Continue Plavix INR Supratherapeutic range: 3.3>2.8>2.4>1.9 Monitor INR Continue metoprolol with holding parameters Resume coumadin today (6) Chronic heart failure with preserved ejection fraction (HFpEF): (7) Mild aortic stenosis: (8) Mitral stenosis: Last echo 02/2020 EF 65 to 70%, grade 3 diastolic dysfunction with restrictive physiology, reduced RV systolic function, mild aortic stenosis, moderate mitral stenosis, severe left atrial enlargement, pulmonary hypertension, moderate TR Daily weights, strict I's and O's Monitor volume status Continue metoprolol Resume Lasix tomorrow (9) Atrial fibrillation: Rate controlled Continue metoprolol, digoxin INR 1.9 Resume warfarin today (10) MDS (myelodysplastic syndrome): hx of HOMERO On iron and vitamin B12 as outpatient Monitor CBC (11) DM type 2 (diabetes mellitus, type 2): HbA1c 6.6 Continue insulin therapy Monitor BGs (12) Hypothyroidism: Continue levothyroxine (13) DVT prophylaxis: INR supratherapeutic Coumadin CODE STATUS Full code Disposition Rehab Admission and Anticipated Discharge Date Admission Date: June 21, 2020 Subjective Patient is seen and examined at bedside Abdominal discomfort resolved States feeling depressed on and off since many months--but prefers not to be started on any medications Offers no other complaints Denies chest pain, dyspnea, dizziness, nausea, abd pain, dysuria Review of Systems Review of Systems: All systems reviewed & are unremarkable except as noted in HPI & below Physical Exam Physical Exam: Physical Exam: Vitals signs as noted above General Appearance:Moderately built and nourished, no apparent distress, Elderly Head: normocephalic, Atraumatic Eyes: normal inspection, EOMI Neck: supple, Trachea midline Respiratory/Chest: Normal breath sounds, CTA Cardiovascular: Irregularly irregular, no murmur Abdomen/GI:Soft, Non tender, Bowel sounds present Extremities/Musculoskeletal:normal inspection, Trace edema Neurologic/Psych:AAOX3, grossly no focal neurological deficits, +Hearing impair ment Skin: normal color, warm Results & Data Results & Data ([facility]) Vital Signs (Past 12 Hours) Vital Signs Temp Pulse Pulse Resp BP Pulse Ox 06/26/20 11:22 36.6 C 76 18 104/56 L 98 06/26/20 07:55 36.7 C 66 17 154/76 H 98 06/26/20 07:27 61 06/26/20 02:56 36.7 C 61 17 159/79 H 98 Laboratory Results Short CBC 06/26/20 Range/Units 06:12 WBC 4.01 L (4.8-10.8) K/uL Hgb 10.8 L (12.0-16.0) g/dL Hct 31.7 L (37-47) % Plt Count 173 (130-400) K/uL BMP 06/26/20 06:12 Sodium 143 Potassium 3.8 Chloride 114 H Carbon Dioxide 23 BUN 16 Creatinine 1.34 H Glucose 79 Calcium 7.8 L (1) CAD (coronary artery disease) Coronary Disease-Associated Artery/Lesion type: [place] artery [place] vs. transplanted heart: [place] heart Associated angina: without angina Qualified Code(s): I25.10 - Atherosclerotic heart disease of [place] coronary artery without angina pectoris
[2020-06-26] MEDS ORDERED: CEFEPIME 2,000 MG in SYRINGE 0 ML IV SCH (14:00)
[2020-06-26] MEDS ORDERED: WARFARIN SOD 4 MG TAB PO SCH (16:00)
[2020-06-26] MEDS: DIGOXIN 0.125 MG TAB PO SCH (16:09)
--- NOTE | 2020-06-26 20:58 | Discharge Summary ---
Date of Service June 26, 2020 Admission HPI Per Admitting Provider Chief Complaint: Fever and abdominal pain x 2 days. Primary Care Provider: Liza Dobbs DO This is a 79-year-old female who has significant past medical history of persistent atrial fibrillation anticoagulated on warfarin, T2DM, CAD, SSS s/p pacer, HTN, HLD, hypothyroidism, asthma, aortic valve stenosis, chronic HFpEF, mitral valve stenosis, CKD 3, GERD, MDS, iron deficiency anemia who presents to ED secondary to fever and abdominal pain x2 days. Patient resides at [facility] and reports abdominal pain for the past 2 days. Per nursing staff she also had fever and was pale. She was referred to ED due to concern for sepsis. Patient history difficult to obtain due to difficulty hearing and confusion. Son is at bedside. She had fever of 101.6 at nursing facility. In ED patient initially did not meet SIRS or sepsis criteria however as ER visit progressed she developed hypotension resistant to IV fluid resuscitation. She also had lactic acidosis, elevated procalcitonin and reported fever at facility. Urinalysis concerning for infection. CT abdomen pelvis reveals 7 mm obstructing left UVJ calculus with secondary left hydroureteronephrosis. Source likely urosepsis. She received 2 L of IV fluid in ED, IV daptomycin and Zosyn. Blood and urine cultures obtained. Despite fluid resuscitation blood pressure persisted systolically in the 80s. She was seen and evaluated by urology in emergency department at bedside who was taken for emergent stent placement. Admission Exam Per Admitting Provider Physical Exam Physical Exam: Constitutional: Elderly, pale, female, appears critically ill, very hard of hearing, answers questions but not always appropriate, Head: Normocephalic, Atraumatic Eyes: PERRL, conjunctivae normal, anicteric sclerae ENMT: external ear and nose normal, oropharynx normal dry mucous membranes Neck: trachea midline, no thyromegaly normal visual inspection Respiratory: normal respiratory effort, lungs clear to auscultation, no wheeze, rales, rhonchi. Normal insp/exp effort, no accessory muscle use Cardiovascular: IRR/IRR, + murmur, no edema Vessels: no JVD or carotid bruit Chest: normal inspection of chest Abdomen: normal bowel sounds, soft, nontender, no hepatosplenomegaly + L CVA tenderness Musculoskeletal: no cyanosis or clubbing, Skin: no rashes, warm and dry normal turgor Neurologic: PERRL, accommodation nl, no face palsy, no dysarthria CN's II-XI intact bilaterally and moves all extremities Psychiatric: A+O to self only, euthymic affect : deferred Principal Diagnosis Septic shock Complicated urinary tract infection E. coli bacteremia Left hydroureteronephrosis Acute metabolic encephalopathy Acute kidney injury Discharge Data Allergies Allergy/AdvReac Type Severity Reaction Status Date / Time adhesive Allergy Unknown ADHESIVE Verified 06/21/20 18:48 TAPE Consultations 06/21/20 18:24 Consult Urology Routine 06/21/20 18:45 ED Decision to Admit Stat 06/21/20 19:08 Consult Caterer'S Aide Routine Procedures Performed Operation Date: 06/21/20 19:00 Actual Procedures p Cystoscopy, Ureteroscopy, Ureteral Stent Insertion(Left) - Stephen Ingram MD CT ABD: 1. 7 mm obstructing left ureterovesical junction calculus with secondary left hydroureteronephrosis 2. No evidence of bowel obstruction. No evidence of free air 3. No evidence of acute diverticulitis. No evidence of acute appendicitis. Ordered Studies 06/21/20 16:53 CT abd pelvis wo con Stat 06/21/20 18:31 FL retrograde includes kub Routine 06/21/20 20:22 US point of care ultrasound Stat Hospital Course (1) Septic shock: (2) Encephalopathy due to infection: (3) Calculus of distal left ureter: Patient is an 79 yr old female with H/O Persistent atrial fibrillation anticoagulated on warfarin, T2DM, CAD, SSS s/p pacer, HTN, HLD, hypothyroidism, asthma, aortic valve stenosis, chronic HFpEF, mitral valve stenosis, CKD 3, GERD, MDS, iron deficiency anemia who presents to ED secondary to fever and abdominal pain x2 days. Septic shock Obstructive uropathy Acute metabolic encephalopathy Left hydroureteronephrosis Gram-negative bacteremia s/p cystoscopy and left stent placement with Dr. Ingram POD#4 Off pressors Blood culture: E.Coli Repeat blood cultures: No growth to date Urine culture E. coli Continue IV Zosyn Day #4>> incision to cefepime started on 06/25/20 Appreciate electrical appliance repairer, urology input Received IV fluids Procalcitonin trended down To complete 14 days of antibiotic therapy Continue current treatment Diarrhea Stool for C. difficile negative (4) Acute worsening of stage 3 chronic kidney disease: Likely post renal and ATN Creatinine 1.5>1.65>1.62>1.55>1.34 Monitor renal function Avoid nephrotoxic agents as able Renal function plateaued (5) CAD (coronary artery disease): CAD Persistent atrial fibrillation on warfarin SSS s/p PPM Mitral stenosis, aortic stenosis pulmonary hypertension chronic HFpEF and mild ischemic cardiomyopathy Continue Plavix INR Supratherapeutic range: 3.3>2.8>2.4>1.9 Monitor INR Continue metoprolol with holding parameters Resume coumadin today (6) Chronic heart failure with preserved ejection fraction (HFpEF): (7) Mild aortic stenosis: (8) Mitral stenosis: Last echo 02/2020 EF 65 to 70%, grade 3 diastolic dysfunction with restrictive physiology, reduced RV systolic function, mild aortic stenosis, moderate mitral stenosis, severe left atrial enlargement, pulmonary hypertension, moderate TR Daily weights, strict I's and O's Monitor volume status Continue metoprolol Resume Lasix tomorrow (9) Atrial fibrillation: Rate controlled Continue metoprolol, digoxin INR 1.9 Resume warfarin today (10) MDS (myelodysplastic syndrome): hx of HOMERO On iron and vitamin B12 as outpatient Monitor CBC (11) DM type 2 (diabetes mellitus, type 2): HbA1c 6.6 Continue insulin therapy Monitor BGs (12) Hypothyroidism: Continue levothyroxine (13) DVT prophylaxis: INR supratherapeutic Coumadin CODE STATUS Full code Disposition Rehab Total Time Total Time Spent Total Time Spent (In Minutes): 44 minutes Total Time Includes: Examination of the Patient, Discharge Planning, Medication Reconciliation, Communication With Other Providers and Other Discharge Plan Discharge Items Patient Disposition: Transfer [facility] Fac Reason For Visit: SEPSIS, OBSTRUCTING L UVJ STONE Discharge Diagnosis: Septic shock Complicated urinary tract infection E. coli bacteremia Left hydroureteronephrosis Acute metabolic encephalopathy Acute kidney injury Activity: Per Instructions section Exercise/Sports: Gradually increase as tolerated Non-emergency contact: Primary Care Provider and Urologist Call non-emergency contact if: you have any medication questions, your symptoms worsen, your pain is not controlled, your pain is concerning for you and you have a fever Follow-up/Referrals: Liza Dobbs DO [Primary Care Provider] - (Date & Time 06/29/2020 11:20 AM Provider Liza Dobbs DO Department Family [facility] ) Diet: Carb Consistent or DM2 Diet Texture: Easy to Chew Addtl Attending Provider Instructions: Follow-up with your primary care physician on 06/29/2020 11:20 AM as scheduled Follow up with your Urologist Dr. Stephen Ingram in 2 weeks as recommended. Complete the IV antibiotic course: IV Cefepime 2 grams daily for 9 more days (last day 07/05/20) Check PT/INR on 06/27/20 and discuss with your physician regarding adjustment of your coumadin dosing Your PT/INR is 1.9 today (06/26/20). Take coumadin 4mg today Seek immediate medical attention if your symptoms reoccur or worsen Pending Studies at Discharge: No Stand-Alone Forms: My [facility] Skilled Items Patient informed of condition?: Yes DNR: No Discharge Level of Care: Skilled Communicable Disease: No Discharge Prognosis: Improving Lines: Peripheral IV Urinary Catheter: No Medications and DC Order Prescriptions: New Floranex 100 million cell Granules In Packet 1 packet PO TIDM 10 Days Qty: 30 RF: 0 Continued citalopram 40 mg Tablet 40 mg PO QAM RF: 0 levothyroxine 50 mcg Tablet 50 mcg PO QAM RF: 0 metoprolol succinate 25 mg Tablet Extended Release 24 Hr 37.5 mg PO QAM RF: 0 ferrous sulfate 325 mg (65 mg iron) Tablet 325 mg PO BID RF: 0 digoxin 125 mcg (0.125 mg) tablet 125 mcg PO 5XWK RF: 0 furosemide 20 mg tablet 20 mg PO QAM RF: 0 cyanocobalamin (vitamin B-12) 1,000 mcg/mL solution 1,000 mcg IM MONTHLY RF: 0 nitroglycerin 0.4 mg tablet, sublingual 0.4 mg sublingual DIRECTED PRN (Reason: Chest Pain) RF: 0 clopidogrel 75 mg tablet 75 mg PO DAILY RF: 0 famotidine 20 mg tablet 20 mg PO DAILY RF: 0 multivitamin [Daily-Nori] Tablet 1 tab PO QAM RF: 0 warfarin 4 mg tablet 4 mg PO SUMOWEFR RF: 0 Lantus Solostar U-100 Insulin 100 unit/mL (3 mL) insulin pen 12 unit SUBCUT QAM RF: 0 acetaminophen 325 mg Tablet 325 mg PO Q4 MDD 3g PRN (Reason: mild pain or temp=>100) RF: 0 oxycodone 5 mg Tablet 5 mg PO Q8H PRN (Reason: mod-severe pain) RF: 0 warfarin 4 mg Tablet 6 mg PO TUTH RF: 0 Discharge Orders: Discharge Order (Routine); Ordered 06/26/20 Ordered By: José Miguel Putnam/Other Patient Handouts: Managing Type 2 Diabetes, Managing Diabetes: The A1C Test Admission Data Admit Date/Time: 06/21/20 18:24 Attending Provider: José Miguel Coleman Admit Provider: José Miguel Coleman Primary Care Provider: Liza Dobbs Other Providers: Stephen Ingram ; José Miguel Coleman ; Clifton Beltrán ; Rita Pruitt [place] Other Interventions: Discharge Summary Assessment (RN) Last Done: 06/26/20 16:00
== END 2020-06-26 17:23 | DRG 853 ==
LOC: ED 16:14 → OR 19:43 → 1E 20:47 → 2W 06-23 13:41

== ENCOUNTER 2020-09-13 18:32 | Inpatient (IN) ==
[2020-09-13] MEDS ORDERED: SODIUM CHLORIDE 0.9% 1000ML 1,000 ML IV SCH (19:00)
--- NOTE | 2020-09-13 19:09 | Emergency Department Note ---
History of Present Illness General Chief complaint: Hypotension Stated complaint: FLUID IN LEGS, HYPOTENSIOMN Time Seen by Provider: 09/13/20 18:55 Source: patient Mode of arrival: EMS Limitations: no limitations History of Present Illness Provider complaint: Low blood pressure 79-year-old female presents to the ED with a chief complaint of lower extremity edema and low blood pressure. The patient was checked at the nursing facility where she resides and her blood pressure was low earlier today. She has been g etting Lasix for her lower extremity edema. The patient was reassessed this afternoon and the son states that she was told that she had to come to the hospital be admitted to see what can be done about her low blood pressure and her lower extremity edema. The patient states that she feels short of breath today. She seems anxious on exam. She does have a history of anxiety. The patient has no additional complaints at this time. Denies any chest pains, fevers or recent illness. She is on Coumadin for atrial fibrillation. She has a pacemaker. Son states that the lower extremity edema has increased over the past week and a half Home Medications Medication Instructions Recorded Confirmed Type metoprolol succinate 37.5 mg PO QAM 12/06/17 09/13/20 History ferrous sulfate 325 mg PO BID 11/08/18 09/13/20 History citalopram 40 mg PO QAM 03/13/19 09/13/20 History levothyroxine 50 mcg PO QAM 03/13/19 09/13/20 History digoxin 125 mcg PO 5XWK 10/10/19 09/13/20 History furosemide 20 mg PO QAM 10/10/19 09/13/20 History cyanocobalamin (vitamin B-12) 1,000 mcg IM MONTHLY 02/18/20 09/13/20 History Lantus Solostar U-100 Insulin 8 unit SUBCUT QAM 06/21/20 09/13/20 History clopidogrel 75 mg PO QAM 06/21/20 09/13/20 History famotidine 20 mg PO QAM 06/21/20 09/13/20 History warfarin 4 mg PO 6XWK 06/21/20 09/13/20 History Lactobacillus acidoph-L.bulgar 1 tab PO TIDM 07/27/20 09/13/20 History [Floranex] methenamine hippurate 1 g PO HS 07/27/20 09/13/20 History multivitamin [Daily-Nori] 1 tab PO DAILY 09/13/20 09/13/20 History warfarin 2 mg PO .DAILY ON Fridays09/13/20 09/13/20 History Allergies Allergy/AdvReac Type Severity Reaction Status Date / Time adhesive Allergy Unknown ADHESIVE Verified 09/13/20 21:30 TAPE Past Med/Surg History Medical History Anemia Aortic root dilatation 4.4 cm on echo 01/2019 Aortic root normal size on 02/2020 ECHO Asthma Atrial fibrillation Bifascicular block CAD (coronary artery disease) "1995 - PTCA and stenting of RCA 07/2011 - atherectomy and stenting RCA 12/2011- AZALIA to the mid LAD 2016-Cobra stent to mid LAD 2017-AZALIA to ostial diagonal Calculus of distal left ureter Closed fracture of left hip February 2020trochanteric nail placed by Ortho Congestive heart failure Depression DM type 2 (diabetes mellitus, type 2) Dyslipidemia GERD (gastroesophageal reflux disease) Hypertension Hypothyroidism HOMERO (iron deficiency anemia) Macular degeneration MDS (myelodysplastic syndrome) Mild aortic stenosis Per 02/19/20 ECHO- ASHLEY 1.84 cm; AV max velocity 2.491 m/s; AV mean PG 13.6 mmHg Mitral stenosis Moderate per 02/2020 ECHO Pacemaker Sinus node dysfunction VRE (vancomycin resistant enterococcus) culture positive Surgical History History of angioplasty History of arthroscopy of knee History of arthroscopy of shoulder History of cholecystectomy History of gastric bypass History of incisional hernia repair History of partial hysterectomy History of tonsillectomy Family History Father Colorectal cancer Sister Lung cancer Diabetes Brother Diabetes Mother Diabetes Social History Smoking Status: Never smoker Second Hand Exposure: No; Hx Alcohol Use: No (unknown resident of [facility]) Hx Substance Use: No (unknown resident of [facility]) Preferred Language: Portuguese Communication Ability: Effective Visual Impairment: No Limitations Hearing Ability: Normal [employer]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 Beliefs That Will Affect Care: None marital status: / Current Living Situation: Personal Care Facility Current Living Situation Comment: [facility] resident current occupational status: retired How many Children do You have: 3 Feels Safe at Home: Yes Assistive Devices: Walker Review of Systems A total of 10 systems reviewed and were otherwise negative Physical Exam Vital Signs Vital Signs - 24 hr 09/13/20 18:40 09/13/20 18:46 09/13/20 18:53 Temperature 36.6 C Temperature Source Temporal Artery Scan Pulse Rate 78 61 Pulse Rate from SpO2 Sensor 60 Respiratory Rate 18 32 H Respiratory Effort / Characteristics Non-Labored Spontaneous Respiratory Depth Normal Blood Pressure 72/43 L 92/42 L Blood Pressure Mean 52 58 Pulse Oximetry 100 100 100 Oxygen Delivery Method Room Air Room Air Room Air Sepsis Recent Fever Within 48 Hours No Sepsis New/Unexplained Change in Mental Status No Sepsis Action Taken by Nursing No Action Required 09/13/20 19:02 09/13/20 19:14 09/13/20 19:22 Temperature Temperature Source Pulse Rate 60 63 60 Pulse Rate from SpO2 Sensor 60 60 Respiratory Rate 26 H 26 H 25 H Respiratory Effort / Characteristics Respiratory Depth Blood Pressure 113/55 L Blood Pressure Mean 74 Pulse Oximetry 100 100 100 Oxygen Delivery Method Room Air Room Air Room Air Sepsis Recent Fever Within 48 Hours Sepsis New/Unexplained Change in Mental Status Sepsis Action Taken by Nursing 09/13/20 19:30 09/13/20 20:00 09/13/20 20:30 Temperature Temperature Source Pulse Rate 61 60 60 Pulse Rate from SpO2 Sensor 61 Respiratory Rate 28 H 21 26 H Respiratory Effort / Characteristics Respiratory Depth Blood Pressure 106/56 L Blood Pressure Mean 72 Pulse Oximetry 100 Oxygen Delivery Method Room Air Sepsis Recent Fever Within 48 Hours Sepsis New/Unexplained Change in Mental Status Sepsis Action Taken by Nursing 09/13/20 21:00 Temperature Temperature Source Pulse Rate 60 Pulse Rate from SpO2 Sensor Respiratory Rate 14 Respiratory Effort / Characteristics Respiratory Depth Blood Pressure Blood Pressure Mean Pulse Oximetry Oxygen Delivery Method Sepsis Recent Fever Within 48 Hours Sepsis New/Unexplained Change in Mental Status Sepsis Action Taken by Nursing CONSTITUTIONAL/VITAL SIGNS: Reviewed / noted above. GENERAL: Non-toxic in appearance. INTEGUMENTARY: Warm, dry, and [place]. HEAD: Normocephalic. EYES: without scleral icterus or trauma. ENT/OROPHARYNX: clear and moist. LYMPHADENOPATHY/NECK: Is supple without lymphadenopathy or meningismus. RESPIRATORY: Lungs clear and equal. CARDIOVASCULAR: Regular rate and rhythm. GI/ABDOMEN: Soft and nontender. No organomegaly or pulsatile mass. No rebound or guarding. Normal bowel sounds. EXTREMITIES: Warm and well perfused. Lower extremity edema. BACK: No CVA tenderness. NEUROLOGICAL: Intact without focal deficits. PSYCHIATRIC: Anxious affect MUSCULOSKELETAL: Normally developed with good muscle tone. TRIAGE NURSING DOCUMENTATION REVIEWED. Course Administered Medications Discontinued Medications Sodium Chloride (Nss 1000ml) 1,000 mls @ 999 mls/hr IV .Q1H1M SYED Stop: 09/13/20 20:00 Last Infusion: 09/13/20 20:19 Dose: 0 mls/hr Documented by: [id number] Admin: 09/13/20 19:17 Dose: 999 mls/hr Documented by: [id number] Lorazepam (Lorazepam 1 Mg Tab) 1 mg SL NOW STA Stop: 09/13/20 19:13 Last Admin: 09/13/20 19:20 Dose: 1 mg Documented by: [id number] Medical Decision Making Differential Diagnosis Differential includes acute coronary syndrome, myocardial infarction, CVA, TIA, anemia, infection, pneumonia, UTI, pyelonephritis, poor nutrition, dehydration, electrolyte disturbance,hypoglycemia. Medical Records Attestation: I reviewed the patient's medical records. Home Medications Current Medication List: was personally reviewed by me Laboratory Data Attestation: I reviewed the patient's lab results. Result diagrams: 09/13/20 19:12 09/13/20 20:27 Lab Results 09/13/20 09/13/20 09/13/20 Range/Units 19:12 19:12 19:12 WBC 3.47 L (4.8-10.8) K/uL RBC 3.26 L (4.2-5.4) M/uL Hgb 9.9 L (12.0-16.0) g/dL Hct 30.6 L (37-47) % MCV 93.9 (80-100) fL MCH 30.4 (25-34) pg MCHC 32.4 (32-36) g/dL RDW Std Deviation 56.2 H (36.4-46.3) fL RDW Coeff of Gaston 16.2 H (11.5-14.5) % Plt Count 242 (130-400) K/uL MPV 9.8 (7.4-10.4) fL Immature Gran % (Auto) 0.0 % Neut % (Auto) 50.1 % Lymph % (Auto) 35.7 % Baxter % (Auto) 10.4 % Eos % (Auto) 2.6 % Baso % (Auto) 1.2 % Neut # (Auto) 1.74 (1.4-6.5) K/uL Lymph # (Auto) 1.24 (1.2-3.4) K/uL Baxter # (Auto) 0.36 (0.11-0.59) K/uL Eos # (Auto) 0.09 (0-0.5) K/uL Baso # (Auto) 0.04 (0-0.2) K/uL Immature Gran # (Auto) 0.00 (0.00-0.02) K/uL PT (9.0-12.0) Seconds INR (0.9-1.1) Sodium 139 (136-145) mmol/L Potassium (3.5-5.1) mmol/L Chloride 108 H (98-107) mmol/L Carbon Dioxide 26 (21-32) mmol/L Anion Gap 6.0 (3-11) BUN 19 H (7-18) mg/dl Creatinine 1.10 (0.6-1.2) mg/dl Est Cr Clr Drug Dosing 40.3 ml/min Est GFR ( Amer) 54.5 ml/min Est GFR (Non-Af Amer) 47.0 ml/min BUN/Creatinine Ratio 16.9 (10-20) Glucose 190 H (70-99) mg/dl Lactate (0.4-2.0) mmol/L Calcium 7.2 L (8.5-10.1) mg/dl Magnesium (1.8-2.4) mg/dl Total Bilirubin 0.3 (0.2-1) mg/dl AST (15-37) U/L ALT 22 (12-78) U/L Alkaline Phosphatase 86 (45-117) U/L Total Creatine Kinase (26-192) U/L Troponin I < 0.015 (0-0.045) ng/ml Total Protein 4.9 L (6.4-8.2) gm/dl Albumin 1.8 L (3.4-5.0) gm/dl Globulin 3.1 (2.5-4.0) gm/dl Albumin/Globulin Ratio 0.6 L (0.9-2) TSH 7.260 H (0.300-4.500) uIu/ml Free T4 0.97 (0.8-1.6) ng/dl Digoxin 0.7 L (0.8-2.0) ng/ml COVID-19 Eval Order SARS-CoV-2 (PCR) (Negative) 09/13/20 09/13/20 09/13/20 Range/Units 19:41 19:41 20:20 WBC (4.8-10.8) K/uL RBC (4.2-5.4) M/uL Hgb (12.0-16.0) g/dL Hct (37-47) % MCV (80-100) fL MCH (25-34) pg MCHC (32-36) g/dL RDW Std Deviation (36.4-46.3) fL RDW Coeff of Gaston (11.5-14.5) % Plt Count (130-400) K/uL MPV (7.4-10.4) fL Immature Gran % (Auto) % Neut % (Auto) % Lymph % (Auto) % Baxter % (Auto) % Eos % (Auto) % Baso % (Auto) % Neut # (Auto) (1.4-6.5) K/uL Lymph # (Auto) (1.2-3.4) K/uL Baxter # (Auto) (0.11-0.59) K/uL Eos # (Auto) (0-0.5) K/uL Baso # (Auto) (0-0.2) K/uL Immature Gran # (Auto) (0.00-0.02) K/uL PT 23.6 H (9.0-12.0) Seconds INR 2.5 H (0.9-1.1) Sodium (136-145) mmol/L Potassium (3.5-5.1) mmol/L Chloride (98-107) mmol/L Carbon Dioxide (21-32) mmol/L Anion Gap (3-11) BUN (7-18) mg/dl Creatinine (0.6-1.2) mg/dl Est Cr Clr Drug Dosing ml/min Est GFR ( Amer) ml/min Est GFR (Non-Af Amer) ml/min BUN/Creatinine Ratio (10-20) Glucose (70-99) mg/dl Lactate 2.1 H* (0.4-2.0) mmol/L Calcium (8.5-10.1) mg/dl Magnesium (1.8-2.4) mg/dl Total Bilirubin (0.2-1) mg/dl AST (15-37) U/L ALT (12-78) U/L Alkaline Phosphatase (45-117) U/L Total Creatine Kinase (26-192) U/L Troponin I (0-0.045) ng/ml Total Protein (6.4-8.2) gm/dl Albumin (3.4-5.0) gm/dl Globulin (2.5-4.0) gm/dl Albumin/Globulin Ratio (0.9-2) TSH (0.300-4.500) uIu/ml Free T4 (0.8-1.6) ng/dl Digoxin (0.8-2.0) ng/ml COVID-19 Eval Order Covid19 at [facility] SARS-CoV-2 (PCR) (Negative) 09/13/20 09/13/20 Range/Units 20:20 20:27 WBC (4.8-10.8) K/uL RBC (4.2-5.4) M/uL Hgb (12.0-16.0) g/dL Hct (37-47) % MCV (80-100) fL MCH (25-34) pg MCHC (32-36) g/dL RDW Std Deviation (36.4-46.3) fL RDW Coeff of Gaston (11.5-14.5) % Plt Count (130-400) K/uL MPV (7.4-10.4) fL Immature Gran % (Auto) % Neut % (Auto) % Lymph % (Auto) % Baxter % (Auto) % Eos % (Auto) % Baso % (Auto) % Neut # (Auto) (1.4-6.5) K/uL Lymph # (Auto) (1.2-3.4) K/uL Baxter # (Auto) (0.11-0.59) K/uL Eos # (Auto) (0-0.5) K/uL Baso # (Auto) (0-0.2) K/uL Immature Gran # (Auto) (0.00-0.02) K/uL PT (9.0-12.0) Seconds INR (0.9-1.1) Sodium (136-145) mmol/L Potassium 3.8 (3.5-5.1) mmol/L Chloride (98-107) mmol/L Carbon Dioxide (21-32) mmol/L Anion Gap (3-11) BUN (7-18) mg/dl Creatinine (0.6-1.2) mg/dl Est Cr Clr Drug Dosing ml/min Est GFR ( Amer) ml/min Est GFR (Non-Af Amer) ml/min BUN/Creatinine Ratio (10-20) Glucose (70-99) mg/dl Lactate (0.4-2.0) mmol/L Calcium (8.5-10.1) mg/dl Magnesium 1.9 (1.8-2.4) mg/dl Total Bilirubin (0.2-1) mg/dl AST 19 (15-37) U/L ALT (12-78) U/L Alkaline Phosphatase (45-117) U/L Total Creatine Kinase 153 (26-192) U/L Troponin I (0-0.045) ng/ml Total Protein (6.4-8.2) gm/dl Albumin (3.4-5.0) gm/dl Globulin (2.5-4.0) gm/dl Albumin/Globulin Ratio (0.9-2) TSH (0.300-4.500) uIu/ml Free T4 (0.8-1.6) ng/dl Digoxin (0.8-2.0) ng/ml COVID-19 Eval Order SARS-CoV-2 (PCR) NEGATIVE (Negative) Imaging Data Radiologist's Impression: Chest X-Ray 09/13/20 18:58 XR chest 1V portable CLINICAL HISTORY: weakness COMPARISON STUDY: Chest radiograph August 24, 2020. FINDINGS: Left subclavian pacemaker is in place. There is no pneumothorax. There has been interval development of small bilateral pleural effusions with interstitial thickening. There is mild left basilar opacity. Cardiomegaly is noted. There is no pneumothorax. Skin folds project over the left chest. IMPRESSION: Interval development of mild pulmonary edema and small bilateral pleural effusions with mild left basilar opacity. ACT 112: Negative or not required by law. Electronically signed by: Osorio Cristobal M.D. 09/13/2020 8:11 PM ECG Data Attestation: I personally reviewed and interpreted this ECG as follows: Indication: + weakness Rate (beats per minute): 62 Rhythm: + other (Paced ventricular rhythm) MDM Narrative Patient presents with low blood pressure. She has been getting diuretics recently for lower extremity edema. Her initial blood pressure here was 72/43. The patient also reports shortness of breath. She seems anxious on exam. On saturations 100% on room air and she has clear lung sounds on my exam. The patient's EKG shows a paced ventricular rhythm at a rate of 62. Hemoglobin is 9.9. This is about baseline. INR is 2.5. Lactic acid is 2.1. Troponin was negative. Chest x-ray reveals mild pulmonary edema. Covid test was negative. The patient was initially hypotensive with a blood pressure 72/43. She was given a liter of normal saline IV. Blood pressure did improve with this. She was given some Ativan sublingual as well. Because of the patient's overall symptoms and worsening pedal edema in addition to the pulmonary edema, further inpatient evaluation and is necessary. She will be seen by the hospitalist. Impression & Plan Acute hypotension, Edema of both lower legs, Acute dyspnea, Anxiety Discharge Plan Visit Data Chief Complaint: Hypotension Stated Complaint: FLUID IN LEGS, HYPOTENSIOMN ED Provider: Chandra Looney Discharge Problem: Acute hypotension, Edema of both lower legs, Acute dyspnea, Anxiety Forms Stand Alone Forms: My [facility] Prescriptions Prescriptions: No Action citalopram 40 mg Tablet 40 mg PO QAM RF: 0 levothyroxine 50 mcg Tablet 50 mcg PO QAM RF: 0 metoprolol succinate 25 mg Tablet Extended Release 24 Hr 37.5 mg PO QAM RF: 0 ferrous sulfate 325 mg (65 mg iron) Tablet 325 mg PO BID RF: 0 digoxin 125 mcg (0.125 mg) tablet 125 mcg PO 5XWK RF: 0 furosemide 20 mg tablet 20 mg PO QAM RF: 0 cyanocobalamin (vitamin B-12) 1,000 mcg/mL solution 1,000 mcg IM MONTHLY RF: 0 clopidogrel 75 mg tablet 75 mg PO QAM RF: 0 famotidine 20 mg tablet 20 mg PO QAM RF: 0 warfarin 4 mg tablet 4 mg PO 6XWK RF: 0 Lanmukul Soltamikaar U-100 Insulin 100 unit/mL (3 mL) insulin pen 8 unit SUBCUT QAM RF: 0 methenamine hippurate 1 gram Tablet 1 g PO HS RF: 0 Lactobacillus acidoph-L.bulgar [Floranex] 1 million cell Tablet 1 tab PO TIDM RF: 0 multivitamin [Daily-Nori] Tablet 1 tab PO DAILY RF: 0 warfarin 2 mg tablet 2 mg PO .DAILY ON FRIDAYS RF: 0
[2020-09-13] MEDS ORDERED: LORazepam 1 MG TAB SL STA (19:12)
[2020-09-13 19:26] LABS: Basophils # (auto) 0.04 K/uL (0-0.2); Basophils % (auto) 1.2 %; Eosinophils # (auto) 0.09 K/uL (0-0.5); Eosinophils % (auto) 2.6 %; Hematocrit (blood only) 30.6 % (37-47); Hemoglobin 9.9 g/dL (12.0-16.0); Lymphocytes # (auto) 1.24 K/uL (1.2-3.4); Lymphocytes % (auto) 35.7 %; Mean Corpuscular Hemoglobin 30.4 pg (25-34); Mean Corpuscular Hgb Conc 32.4 g/dL (32-36); Mean Corpuscular Volume 93.9 fL (80-100); Mean Platelet Volume 9.8 fL (7.4-10.4); Monocytes # (auto) 0.36 K/uL (0.11-0.59); Monocytes % (auto) 10.4 %; Neutrophils # (auto) 1.74 K/uL (1.4-6.5); Neutrophils % (auto) 50.1 %; Platelet Count 242 K/uL (130-400); RDW Coefficient of Variation 16.2 % (11.5-14.5); RDW Standard Deviation 56.2 fL (36.4-46.3); Red Blood Count 3.26 M/uL (4.2-5.4); White Blood Count 3.47 K/uL (4.8-10.8)
[2020-09-13 20:05] LABS: Alanine Aminotransferase 22 U/L (12-78); Albumin Level 1.8 gm/dl (3.4-5.0); BUN Creatinine Ratio 16.9 (10-20); Blood Urea Nitrogen 19 mg/dl (7-18); Calcium 7.2 mg/dl (8.5-10.1); Carbon Dioxide 26 mmol/L (21-32); Chloride 108 mmol/L (98-107); Creatinine Clr Calc Pharmacy 40.3 ml/min; Est GFR (African American) 54.5 ml/min; Glucose 190 mg/dl (70-99); Sodium 139 mmol/L (136-145)
[2020-09-13 20:11] LABS: Albumin Globulin Ratio 0.6 (0.9-2); Alkaline Phosphatase 86 U/L (45-117); Bilirubin,Total 0.3 mg/dl (0.2-1); Globulin 3.1 gm/dl (2.5-4.0); Total Protein 4.9 gm/dl (6.4-8.2); Troponin I < 0.015 ng/ml (0-0.045)
--- NOTE | 2020-09-13 20:12 | XRay Report ---
XR chest 1V portable CLINICAL HISTORY: weakness COMPARISON STUDY: Chest radiograph August 24, 2020. FINDINGS: Left subclavian pacemaker is in place. There is no pneumothorax. There has been interval de velopment of small bilateral pleural effusions with interstitial thickening. There is mild left basil ar opacity. Cardiomegaly is noted. There is no pneumothorax. Skin folds project over the left chest. IMPRESSION: Interval development of mild pulmonary edema and small bilateral pleural effusions with mild left bas ilar opacity. ACT 112: Negative or not required by law. Electronically signed by: Osorio Cristobal M.D. 09/13/2020 8:11 PM
[2020-09-13 20:21] LABS: INR 2.5 (0.9-1.1); Prothrombin Time 23.6 Seconds (9.0-12.0)
[2020-09-13 20:26] LABS: T4 Free Thyroxine 0.97 ng/dl (0.8-1.6)
[2020-09-13 21:07] LABS: Potassium 3.8 mmol/L (3.5-5.1)
[2020-09-13 21:14] LABS: Magnesium 1.9 mg/dl (1.8-2.4)
[2020-09-13] MEDS ORDERED: FUROSEMIDE 40 MG/4 ML VIAL IV STA (22:31)
[2020-09-13] MEDS ORDERED: ALBUMIN 25% 12.5 GM/50 ML VIAL IV STA (22:32)
--- NOTE | 2020-09-13 23:08 | History & Physical Report ---
Date of Service September 13, 2020 Assessment & Plan (1) Decompensated heart failure: hx chronic diastolic heart failure Rule out progression of valvular heart disease ( hx mild to moderate aortic stenosis, moderate mitral stenosis ) Underlying pulmonary hypertension, hx DEEPAK off CPAP since 2009 after weight loss post gastric bypass ro pacemaker dysfunction (SSS sp PPM, paced rhythm) Hypotension secondary to CHF hx CAD status post stent DM 2 insulin requiring, well-controlled as of recent outpatient hemoglobin A1c of 6.6, June 2020 chronic anemia, hemoglobin at baseline myelodysplastic syndrome as per records Recurrent UTIs on chronic methenamine suppression Rx PCU Lasix albumin Strict I/Os, daily weights, CHF education, fluid restriction Update TTE Pacemaker interrogation Decrease maintenance beta-marie dose given hypotension Cardiology consult Re: Decompensated heart failure Outpatient follow-up with sleep medicine for possible new sleep study to determine need for CPAP use Basal insulin, ISS BG goal [id number], carb count coverage DVT prophylaxis. Coumadin INR goal between 2 and 3 . Full code Patient son requesting updates for providers. Mr. Kevan Palomo, contact #[phone]. Text document was generated using [place] voice recognition software. It may contain grammatical or spelling errors. Kindly contact undersigned for clarification of any documentation item in question. History of Present Illness Chief Complaint: Leg swelling, shortness of breath, low blood pressure Primary Care Provider: Liza Dobbs, History obtained from patient, family, and records. Medical history significant for chronic diastolic heart failure (EF 70%, TTE 2019), SSS sp PPM on Coumadin, CAD status post stent, valvular heart disease (mild aortic stenosis, moderate mitral stenosis TTE, 2019), hypertension, hyperlipidemia, pulmonary hypertension, DEEPAK (off CPAP since 2009 after weight loss post gastric bypass as per records), DM 2 insulin requiring, hypothyroidism, chronic anemia (baseline hemoglobin 9- 10), myelodysplastic syndrome as per records, recurrent UTIs on chronic antibiotic suppression. Last confinement June 2020 for septic shock secondary to complicated UTI. Patient discharged to [facility] for rehab. Patient subsequently discharged to [facility] 2 months ago. 2 weeks ago, patient noted increased bilateral leg swelling with blood tinged seepage. Fluid retention and shortness of breath worse with exertion later followed. No chest pain, no cough as per patient. Patient compliant with home diuretics. Unable to administer BP medications and Lasix at care home in the last week due to low blood pressure as per records. Patient directed to the ER for evaluation. Initial SBP at the ER was 70s. NSS bolus given at the ER. SBP currently 100s. 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 Allergies Allergy/AdvReac Type Severity Reaction Status Date / Time adhesive Allergy Unknown ADHESIVE Verified 09/13/20 21:30 TAPE Home Medications Medication Instructions Recorded Confirmed Type metoprolol succinate 37.5 mg PO QAM 12/06/17 09/13/20 History ferrous sulfate 325 mg PO BID 11/08/18 09/13/20 History citalopram 40 mg PO QAM 03/13/19 09/13/20 History levothyroxine 50 mcg PO QAM 03/13/19 09/13/20 History digoxin 125 mcg PO 5XWK 10/10/19 09/13/20 History furosemide 20 mg PO QAM 10/10/19 09/13/20 History cyanocobalamin (vitamin B-12) 1,000 mcg IM MONTHLY 02/18/20 09/13/20 History Lantus Solostar U-100 Insulin 8 unit SUBCUT QAM 06/21/20 09/13/20 History clopidogrel 75 mg PO QAM 06/21/20 09/13/20 History famotidine 20 mg PO QAM 06/21/20 09/13/20 History warfarin 4 mg PO 6XWK 06/21/20 09/13/20 History Lactobacillus acidoph-L.bulgar 1 tab PO TIDM 07/27/20 09/13/20 History [Floranex] methenamine hippurate 1 g PO HS 07/27/20 09/13/20 History multivitamin [Daily-Nori] 1 tab PO DAILY 09/13/20 09/13/20 History warfarin 2 mg PO .DAILY ON Fridays09/13/20 09/13/20 History Past Med/Surg History Medical History Anemia Aortic root dilatation 4.4 cm on echo 01/2019 Aortic root normal size on 02/2020 ECHO Asthma Atrial fibrillation Bifascicular block CAD (coronary artery disease) "1995 - PTCA and stenting of RCA 07/2011 - atherectomy and stenting RCA 12/2011- AZALIA to the mid LAD 2016-Cobra stent to mid LAD 2017-AZALIA to ostial diagonal Calculus of distal left ureter Closed fracture of left hip February 2020trochanteric nail placed by Ortho Congestive heart failure Depression DM type 2 (diabetes mellitus, type 2) Dyslipidemia GERD (gastroesophageal reflux disease) Hypertension Hypothyroidism HOMERO (iron deficiency anemia) Macular degeneration MDS (myelodysplastic syndrome) Mild aortic stenosis Per 02/19/20 ECHO- ASHLEY 1.84 cm; AV max velocity 2.491 m/s; AV mean PG 13.6 mmHg Mitral stenosis Moderate per 02/2020 ECHO Pacemaker Sinus node dysfunction VRE (vancomycin resistant enterococcus) culture positive Surgical History History of angioplasty History of arthroscopy of knee History of arthroscopy of shoulder History of cholecystectomy History of gastric bypass History of incisional hernia repair History of partial hysterectomy History of tonsillectomy Family History Father Colorectal cancer Sister Lung cancer Diabetes Brother Diabetes Mother Diabetes Social History Smoking Status: Never smoker Second Hand Exposure: No; Do You Dip or Chew Tobacco: No; Hx Alcohol Use: No Hx Substance Use: No Preferred Language: Telugu Communication Ability: Effective Visual Impairment: No Limitations Hearing Ability: Normal Apiculturist Required: No Beliefs That Will Affect Care: None marital status: / Current Living Situation: [facility] Current Living Situation Comment: [place] resident current occupational status: retired How many Children do You have: 3 Other Information That Helps Us Care for You: No Feels Safe at Home: Yes Safety Concerns: Feels Safe At This Time Assistive Devices: None Review of Systems Review of Systems: As per HPI, all 10 systems reviewed, all other ROS negative Physical Exam Physical Exam: GENERAL: uncomfortable, slightly anxious, no respiratory distress SKIN: Pallor, warm HEENT: Pale palpebral conjunctivae, no ptosis, moist buccal mucosa, nasal cannula in place NECK : Supple, no tenderness CHEST : Decreased breath sounds, no tenderness HEART : RRR, systolic murmur over second right intercostal space, diastolic murmur over left sternal border ABDOMEN: Some distention, nontender EXTREMITIES : Bilateral LE swelling with erythematous spots, dressing over left lower leg, minimal tenderness NEUROLOGIC : Coherent, no facial asymmetry, mild hearing impairment, no other gross focality Results & Data Results & Data ([facility]) Vital Signs (Past 12 Hours) Vital Signs Temp Pulse Resp BP Pulse Ox 09/13/20 23:00 66 20 09/13/20 22:47 62 21 131/42 L 09/13/20 22:43 68 21 120/79 09/13/20 22:42 70 21 09/13/20 21:00 60 14 09/13/20 20:30 60 26 H 09/13/20 20:00 60 21 09/13/20 19:30 61 28 H 106/56 L 100 09/13/20 19:22 60 25 H 113/55 L 100 09/13/20 19:14 63 26 H 100 09/13/20 19:02 60 26 H 100 09/13/20 18:53 100 09/13/20 18:46 61 32 H 92/42 L 100 09/13/20 18:40 36.6 C 78 18 72/43 L 100 Laboratory Results Laboratory Results WBC 3.47 K/uL (4.8-10.8) L 09/13/20 19:12 RBC 3.26 M/uL (4.2-5.4) L 09/13/20 19:12 Hgb 9.9 g/dL (12.0-16.0) L 09/13/20 19:12 Hct 30.6 % (37-47) L 09/13/20 19:12 MCV 93.9 fL (80-100) 09/13/20 19:12 MCH 30.4 pg (25-34) 09/13/20 19:12 MCHC 32.4 g/dL (32-36) 09/13/20 19:12 RDW Std Deviation 56.2 fL (36.4-46.3) H 09/13/20 19:12 RDW Coeff of [place] 16.2 % (11.5-14.5) H 09/13/20 19:12 Plt Count 242 K/uL (130-400) 09/13/20 19:12 MPV 9.8 fL (7.4-10.4) 09/13/20 19:12 Immature Gran % (Auto) 0.0 % 09/13/20 19:12 Neut % (Auto) 50.1 % 09/13/20 19:12 Lymph % (Auto) 35.7 % 09/13/20 19:12 [place] % (Auto) 10.4 % 09/13/20 19:12 Eos % (Auto) 2.6 % 09/13/20 19:12 Baso % (Auto) 1.2 % 09/13/20 19:12 Neut # (Auto) 1.74 K/uL (1.4-6.5) 09/13/20 19:12 Lymph # (Auto) 1.24 K/uL (1.2-3.4) 09/13/20 19:12 [place] # (Auto) 0.36 K/uL (0.11-0.59) 09/13/20 19:12 Eos # (Auto) 0.09 K/uL (0-0.5) 09/13/20 19:12 Baso # (Auto) 0.04 K/uL (0-0.2) 09/13/20 19:12 Immature Gran # (Auto) 0.00 K/uL (0.00-0.02) 09/13/20 19:12 PT 23.6 Seconds (9.0-12.0) H 09/13/20 19:41 INR 2.5 (0.9-1.1) H 09/13/20 19:41 Sodium 139 mmol/L (136-145) 09/13/20 19:12 Potassium 3.8 mmol/L (3.5-5.1) 09/13/20 20:27 Chloride 108 mmol/L (98-107) H 09/13/20 19:12 Carbon Dioxide 26 mmol/L (21-32) 09/13/20 19:12 Anion Gap 6.0 (3-11) 09/13/20 19:12 BUN 19 mg/dl (7-18) H 09/13/20 19:12 Creatinine 1.10 mg/dl (0.6-1.2) 09/13/20 19:12 Est Cr Clr Drug Dosing 40.3 ml/min 09/13/20 19:12 Est GFR ( Amer) 54.5 ml/min 09/13/20 19:12 Est GFR (Non-Af Amer) 47.0 ml/min 09/13/20 19:12 BUN/Creatinine Ratio 16.9 (10-20) 09/13/20 19:12 Glucose 190 mg/dl (70-99) H 09/13/20 19:12 Lactate 2.1 mmol/L (0.4-2.0) H* 09/13/20 19:41 Calcium 7.2 mg/dl (8.5-10.1) L 09/13/20 19:12 Magnesium 1.9 mg/dl (1.8-2.4) 09/13/20 20:27 Total Bilirubin 0.3 mg/dl (0.2-1) 09/13/20 19:12 AST 19 U/L (15-37) 09/13/20 20:27 ALT 22 U/L (12-78) 09/13/20 19:12 Alkaline Phosphatase 86 U/L (45-117) 09/13/20 19:12 Total Creatine Kinase 153 U/L (26-192) 09/13/20 20:27 Troponin I < 0.015 ng/ml (0-0.045) 09/13/20 19:12 Total Protein 4.9 gm/dl (6.4-8.2) L 09/13/20 19:12 Albumin 1.8 gm/dl (3.4-5.0) L 09/13/20 19:12 Globulin 3.1 gm/dl (2.5-4.0) 09/13/20 19:12 Albumin/Globulin Ratio 0.6 (0.9-2) L 09/13/20 19:12 TSH 7.260 uIu/ml (0.300-4.500) H 09/13/20 19:12 Free T4 0.97 ng/dl (0.8-1.6) 09/13/20 19:12 Digoxin 0.7 ng/ml (0.8-2.0) L 09/13/20 19:12 COVID-19 Eval Order Covid19 at [facility] 09/13/20 20:20 SARS-CoV-2 (PCR) NEGATIVE (Negative) 09/13/20 20:20 Impressions Chest X-Ray 09/13/20 18:58 XR chest 1V portable CLINICAL HISTORY: weakness COMPARISON STUDY: Chest radiograph August 24, 2020. FINDINGS: Left subclavian pacemaker is in place. There is no pneumothorax. There has been interval development of small bilateral pleural effusions with interstitial thickening. There is mild left basilar opacity. Cardiomegaly is noted. There is no pneumothorax. Skin folds project over the left chest. IMPRESSION: Interval development of mild pulmonary edema and small bilateral pleural effusions with mild left basilar opacity. ACT 112: Negative or not required by law. Electronically signed by: Osorio Cristobal M.D. 09/13/2020 8:11 PM Diagnostic Findings EKG as per my interpretation: Rate 60, paced rhythm
[2020-09-14 00:31] LABS: Appearance Urine Clear (Clear); Bilirubin Urine Negative (Negative); Blood Urine Negative (Negative); Color Urine Yellow; Glucose Urine UA Negative (Negative); Ketones Urine Negative (Negative); Leukocyte Esterase Urine Negative (Negative); Nitrite Urine Negative (Negative); Protein Urine Negative (Negative); Specific Gravity Urine 1.006 (1.000-1.030); Urobilinogen Urine Negative (Negative)
[2020-09-14] MEDS ORDERED: traMADol HCL 50 MG TABLET PO PRN (00:59)
[2020-09-14] MEDS ORDERED: GLUCOSE 40% GEL 15 GM TUBE PO PRN (00:59)
[2020-09-14] MEDS ORDERED: CARBOHYDRATES FOR HYPOGLYCEMIA PO PRN (00:59)
[2020-09-14] MEDS ORDERED: NITROGLYCERIN SL 0.4 MG/TAB TAB SL PRN (00:59)
[2020-09-14] MEDS ORDERED: DEXTROSE 50% 50 ML SYRINGE IV PRN (00:59)
[2020-09-14] MEDS ORDERED: POTASSIUM CHLORIDE CRTAB 20 MEQ TABCR PO STA (00:59)
[2020-09-14] MEDS ORDERED: GLUCOSE 10 TABS/TUBE PO PRN (00:59)
[2020-09-14] MEDS ORDERED: GLUCAGON FOR INJ 1 MG VIAL SQ PRN (00:59)
[2020-09-14] MEDS ORDERED: ACETAMINOPHEN 325 MG TAB PO PRN (00:59)
[2020-09-14] MEDS: INSULIN ASPART 100 UNITS/ML 3 ML PEN SC SCH ×5 (01:41→21:09)
[2020-09-14] MEDS: LEVOTHYROXINE SODIUM 50 MCG TABLET PO SCH (05:53)
[2020-09-14 06:33] LABS: Basophils # (auto) 0.02 K/uL (0-0.2); Basophils % (auto) 0.6 %; Eosinophils # (auto) 0.08 K/uL (0-0.5); Eosinophils % (auto) 2.6 %; Hematocrit (blood only) 30.5 % (37-47); Hemoglobin 9.7 g/dL (12.0-16.0); Immature Granulocytes # (auto) 0.01 K/uL (0.00-0.02); Immature Granulocytes % (auto) 0.3 %; Lymphocytes # (auto) 1.07 K/uL (1.2-3.4); Lymphocytes % (auto) 34.3 %; Mean Corpuscular Hemoglobin 29.9 pg (25-34); Mean Corpuscular Hgb Conc 31.8 g/dL (32-36); Mean Corpuscular Volume 94.1 fL (80-100); Mean Platelet Volume 9.7 fL (7.4-10.4); Monocytes # (auto) 0.35 K/uL (0.11-0.59); Monocytes % (auto) 11.2 %; Neutrophils # (auto) 1.59 K/uL (1.4-6.5); Platelet Count 245 K/uL (130-400); RDW Standard Deviation 55.4 fL (36.4-46.3); Red Blood Count 3.24 M/uL (4.2-5.4); White Blood Count 3.12 K/uL (4.8-10.8)
[2020-09-14 06:44] LABS: INR 2.8 (0.9-1.1); Prothrombin Time 26.3 Seconds (9.0-12.0)
[2020-09-14 07:09] LABS: Calcium 7.7 mg/dl (8.5-10.1); Creatinine Clr Calc Pharmacy 56.5 ml/min; Est GFR (African American) 73.4 ml/min; Est GFR (Non-African American) 63.4 ml/min; Potassium 4.2 mmol/L (3.5-5.1)
[2020-09-14] MEDS: ALBUMIN 25% 12.5 GM/50 ML VIAL IV SCH ×2 (08:37→20:06)
[2020-09-14] MEDS: CLOPIDOGREL BISULFATE 75 MG TAB PO SCH (08:41)
[2020-09-14] MEDS: FAMOTIDINE 20 MG TAB PO SCH (08:41)
[2020-09-14] MEDS: CITALOPRAM 40 MG TAB PO SCH (08:41)
[2020-09-14] MEDS: FERROUS SULFATE 325 MG TAB PO SCH ×2 (08:42→17:10)
[2020-09-14] MEDS: ADVANCED PROBIOTIC 1250 MG CAPSULE PO SCH (08:42)
[2020-09-14] MEDS: POTASSIUM CHLORIDE CRTAB 20 MEQ TABCR PO SCH ×2 (08:43→17:10)
[2020-09-14] MEDS: MULTIVITAMIN TAB PO SCH (08:43)
[2020-09-14] MEDS: INSULIN GLARGINE SOLOSTAR 100 UNITS/ML 3 ML PEN SQ SCH (08:43)
[2020-09-14] MEDS: FUROSEMIDE 40 MG/4 ML VIAL IV SCH ×2 (08:45→20:07)
[2020-09-14] MEDS ORDERED: METOPROLOL SUCC 25MG EXT REL TAB PO SCH (09:00)
--- NOTE | 2020-09-14 11:17 | Cardiology Consultation ---
Date of Consultation September 14, 2020 Assessment & Plan (1) Chronic heart failure with preserved ejection fraction (HFpEF): Patient is a very complex 79-year-old female admitted with signs and symptoms of acute on chronic diastolic heart failure by chest x-ray and lower extremity edema. Symptoms of increased dyspnea recently. No signs of acute cardiac decompensation by cardiac enzymes and echocardiogram. Suspect multifactorial etiology include including marked hypoalbuminemia contributing. Valvular disease appears stable Pacemaker functioning appropriately with predominantly ventricular paced rhythm Plan: Agree with IV diuretics as ordered following renal function closely Metoprolol reduced and will reduce further no signs of tachyarrhythmias or angina. Allow slightly higher heart rate and blood pressure possibly less ventricular pacing Nutrition issues will need to be addressed, chronic infection exclude (2) Edema of both lower legs: (3) Atrial fibrillation: (4) Valvular heart disease: (5) Pacemaker: (6) Hypoalbuminemia: History of Present Illness Reason for Consultation: Dyspnea, diastolic heart failure Attending Physician: José Miguel Coleman MD History of Present Illness Patient is an 79-year-old female well-known to me with ongoing issues and information as per outpatient records which include 1. Atherosclerotic coronary artery disease status post prior coronary interventions including PTCA and stenting of the right coronary artery in 1995, repeat coronary interventions in July of 2011 receiving atherectomy and stenting of the right coronary artery, and separate procedure with a drug- eluting stent to the mid left anterior descending, December 2011. Cardiac catheterization at [facility] November 20, 2016 high- grade mid left anterior descending stenosis, technically difficult procedure. S/P PCI with Cobra stent to the mid LAD stenosis with occlusion of small diseased diagonal branch) on 12/04/16 at [facility] [place] Status post coronary angiography and subsequent coronary intervention on 12/31/2017, receiving a drug-eluting stent to 80% narrowing of an ostial diagonal lesion, for persistent cardiac symptoms 2. Stable class I-II angina pectoris. 3. Preserved LV systolic function with chronic diastolic dysfunction. 4. Valvular heart disease with mild aortic stenosis with mild aortic root dilatation/ mild to moderate mitral stenosis 5. Hypertension. 6. Hyperlipidemia. 7. Myelodysplastic syndrome with chronic iron deficiency anemia 9. Postprocedural sinus arrest with extended pause and subsequent dual-chamber pacemaker insertion November 21, [address] BOYCE [id number] 10. Persistent atrial fibrillation 11. Marked hypoalbuminemia 12. Status post gastric bypass surgery 2009 Patient presents today on referral with symptoms of recent increase in dyspnea and ongoing issues with chronic lower extremity edema, recently observed low blood pressure at [facility]. She denies any chest pains, tachypalpitations, syncope, near syncope. Notes chronic fatigue issues but does ambulate with a walker Appetite is only fair. Weight has been trending downward. No overt fevers but occasional chills. No bleeding difficulties. No difficulty taking medications Lower extremity edema been a progressive process EKG today atrial fibrillation with ventricular paced rhythm Cardiac enzymes negative for injury Laboratory studies notable for an albumin level of 1.8 Chest x-ray with mild increase in vascular markings and bilateral small pleural effusion Echocardiogram not significantly changed from prior studies with normal hyperdynamic LV function with paced rhythm Mild aortic stenosis and mild to moderate mitral stenosis Elevated pulmonary pressures PA pressure 40 to 50 mm annabella Allergies Allergy/AdvReac Type Severity Reaction Status Date / Time adhesive Allergy Unknown ADHESIVE Verified 09/13/20 21:30 TAPE Home Medications Medication Instructions Recorded Confirmed Type metoprolol succinate 37.5 mg PO QAM 12/06/17 09/13/20 History ferrous sulfate 325 mg PO BID 11/08/18 09/13/20 History citalopram 40 mg PO QAM 03/13/19 09/13/20 History levothyroxine 50 mcg PO QAM 03/13/19 09/13/20 History digoxin 125 mcg PO 5XWK 10/10/19 09/13/20 History furosemide 20 mg PO QAM 10/10/19 09/13/20 History cyanocobalamin (vitamin B-12) 1,000 mcg IM MONTHLY 02/18/20 09/13/20 History Lantus Solostar U-100 Insulin 8 unit SUBCUT QAM 06/21/20 09/13/20 History clopidogrel 75 mg PO QAM 06/21/20 09/13/20 History famotidine 20 mg PO QAM 06/21/20 09/13/20 History warfarin 4 mg PO 6XWK 06/21/20 09/13/20 History Lactobacillus acidoph-L.bulgar 1 tab PO TIDM 07/27/20 09/13/20 History [Floranex] methenamine hippurate 1 g PO HS 07/27/20 09/13/20 History multivitamin [Daily-Nori] 1 tab PO DAILY 09/13/20 09/13/20 History warfarin 2 mg PO .DAILY ON Fridays09/13/20 09/13/20 History Patient History Medical History Anemia Aortic root dilatation 4.4 cm on echo 01/2019 Aortic root normal size on 02/2020 ECHO Asthma Atrial fibrillation Bifascicular block CAD (coronary artery disease) "1995 - PTCA and stenting of RCA 07/2011 - atherectomy and stenting RCA 12/2011- AZALIA to the mid LAD 2016-Cobra stent to mid LAD 2017-AZALIA to ostial diagonal Calculus of distal left ureter Closed fracture of left hip February 2020trochanteric nail placed by Ortho Congestive heart failure Depression DM type 2 (diabetes mellitus, type 2) Dyslipidemia GERD (gastroesophageal reflux disease) Hypertension Hypothyroidism HOMERO (iron deficiency anemia) Macular degeneration MDS (myelodysplastic syndrome) Mild aortic stenosis Per 02/19/20 ECHO- ASHLEY 1.84 cm; AV max velocity 2.491 m/s; AV mean PG 13.6 mmHg Mitral stenosis Moderate per 02/2020 ECHO Pacemaker Sinus node dysfunction VRE (vancomycin resistant enterococcus) culture positive Surgical History History of angioplasty History of arthroscopy of knee History of arthroscopy of shoulder History of cholecystectomy History of gastric bypass History of incisional hernia repair History of partial hysterectomy History of tonsillectomy Family History Father Colorectal cancer Sister Lung cancer Diabetes Brother Diabetes Mother Diabetes Social History Smoking Status: Never smoker Second Hand Exposure: No; Do You Dip or Chew Tobacco: No; Hx Alcohol Use: No Hx Substance Use: No Preferred Language: Comoran Communication Ability: Effective Visual Impairment: No Limitations Hearing Ability: Normal Senior Scheduler Required: No Beliefs That Will Affect Care: None marital status: / Current Living Situation: [facility] Current Living Situation Comment: [facility] [place] current occupational status: retired How many Children do You have: 3 Other Information That Helps Us Care for You: No Feels Safe at Home: Yes Safety Concerns: Feels Safe At This Time Assistive Devices: None Review of Systems Review of Systems: All systems reviewed & are unremarkable except as noted in Subjective Results & Data ([place]) Vital Signs (Past 12 Hours) Vital Signs Temp Pulse Pulse Resp BP BP Pulse Ox 09/14/20 07:20 36.5 C 60 18 147/73 H 98 09/14/20 03:35 36.5 C 60 18 130/64 99 09/14/20 01:21 60 09/14/20 01:00 36.5 C 16 153/76 H 99 09/14/20 00:59 36.5 C 63 18 153/76 H 98 09/14/20 00:09 63 18 129/61 94 Pulse Ox 09/14/20 07:20 09/14/20 03:35 09/14/20 01:21 09/14/20 01:00 09/14/20 00:59 100 09/14/20 00:09 Laboratory Results Laboratory Results - last 24 hr 09/13/20 09/13/20 09/13/20 19:12 19:12 19:12 WBC 3.47 L RBC 3.26 L Hgb 9.9 L Hct 30.6 L MCV 93.9 MCH 30.4 MCHC 32.4 RDW Std Deviation 56.2 H RDW Coeff of [place] 16.2 H Plt Count 242 MPV 9.8 Immature Gran % (Auto) 0.0 Neut % (Auto) 50.1 Lymph % (Auto) 35.7 [place] % (Auto) 10.4 Eos % (Auto) 2.6 Baso % (Auto) 1.2 Neut # (Auto) 1.74 Lymph # (Auto) 1.24 [place] # (Auto) 0.36 Eos # (Auto) 0.09 Baso # (Auto) 0.04 Immature Gran # (Auto) 0.00 PT INR Sodium 139 Potassium Chloride 108 H Carbon Dioxide 26 Anion Gap 6.0 BUN 19 H Creatinine 1.10 Est Cr Clr Drug Dosing 40.3 Est GFR ( Amer) 54.5 Est GFR (Non-Af Amer) 47.0 BUN/Creatinine Ratio 16.9 Glucose 190 H POC Glucose Lactate Calcium 7.2 L Magnesium Total Bilirubin 0.3 AST ALT 22 Alkaline Phosphatase 86 Total Creatine Kinase Troponin I < 0.015 Total Protein 4.9 L Albumin 1.8 L Globulin 3.1 Albumin/Globulin Ratio 0.6 L TSH 7.260 H Free T4 0.97 Urine Color Urine Appearance Urine pH Ur Specific [place] Urine Protein Urine Glucose (UA) Urine Ketones Urine Blood Urine Nitrite Urine Bilirubin Urine Urobilinogen Ur Leukocyte Esterase Nasal Screen MRSA (PCR) Digoxin 0.7 L COVID-19 Eval Order SARS-CoV-2 (PCR) 09/13/20 09/13/20 09/13/20 19:41 19:41 20:20 WBC RBC Hgb Hct MCV MCH MCHC RDW Std Deviation RDW Coeff of [place] Plt Count MPV Immature Gran % (Auto) Neut % (Auto) Lymph % (Auto) [place] % (Auto) Eos % (Auto) Baso % (Auto) Neut # (Auto) Lymph # (Auto) [place] # (Auto) Eos # (Auto) Baso # (Auto) Immature Gran # (Auto) PT 23.6 H INR 2.5 H Sodium Potassium Chloride Carbon Dioxide Anion Gap BUN Creatinine Est Cr Clr Drug Dosing Est GFR ( Amer) Est GFR (Non-Af Amer) BUN/Creatinine Ratio Glucose POC Glucose Lactate 2.1 H* Calcium Magnesium Total Bilirubin AST ALT Alkaline Phosphatase Total Creatine Kinase Troponin I Total Protein Albumin Globulin Albumin/Globulin Ratio TSH Free T4 Urine Color Urine Appearance Urine pH Ur Specific [place] Urine Protein Urine Glucose (UA) Urine Ketones Urine Blood Urine Nitrite Urine Bilirubin Urine Urobilinogen Ur Leukocyte Esterase Nasal Screen MRSA (PCR) Digoxin COVID-19 Eval Order Covid19 at [facility] SARS-CoV-2 (PCR) 09/13/20 09/13/20 09/13/20 20:20 20:27 23:56 WBC RBC Hgb Hct MCV MCH MCHC RDW Std Deviation RDW Coeff of [place] Plt Count MPV Immature Gran % (Auto) Neut % (Auto) Lymph % (Auto) [place] % (Auto) Eos % (Auto) Baso % (Auto) Neut # (Auto) Lymph # (Auto) [place] # (Auto) Eos # (Auto) Baso # (Auto) Immature Gran # (Auto) PT INR Sodium Potassium 3.8 Chloride Carbon Dioxide Anion Gap BUN Creatinine Est Cr Clr Drug Dosing Est GFR ( Amer) Est GFR (Non-Af Amer) BUN/Creatinine Ratio Glucose POC Glucose Lactate 1.6 Calcium Magnesium 1.9 Total Bilirubin AST 19 ALT Alkaline Phosphatase Total Creatine Kinase 153 Troponin I Total Protein Albumin Globulin Albumin/Globulin Ratio TSH Free T4 Urine Color Urine Appearance Urine pH Ur Specific [place] Urine Protein Urine Glucose (UA) Urine Ketones Urine Blood Urine Nitrite Urine Bilirubin Urine Urobilinogen Ur Leukocyte Esterase Nasal Screen MRSA (PCR) Digoxin COVID-19 Eval Order SARS-CoV-2 (PCR) NEGATIVE 09/14/20 09/14/20 09/14/20 00:00 00:45 01:37 WBC RBC Hgb Hct MCV MCH MCHC RDW Std Deviation RDW Coeff of [place] Plt Count MPV Immature Gran % (Auto) Neut % (Auto) Lymph % (Auto) [place] % (Auto) Eos % (Auto) Baso % (Auto) Neut # (Auto) Lymph # (Auto) [place] # (Auto) Eos # (Auto) Baso # (Auto) Immature Gran # (Auto) PT INR Sodium Potassium Chloride Carbon Dioxide Anion Gap BUN Creatinine Est Cr Clr Drug Dosing Est GFR ( Amer) Est GFR (Non-Af Amer) BUN/Creatinine Ratio Glucose POC Glucose 110 H Lactate Calcium Magnesium Total Bilirubin AST ALT Alkaline Phosphatase Total Creatine Kinase Troponin I Total Protein Albumin Globulin Albumin/Globulin Ratio TSH Free T4 Urine Color Yellow Urine Appearance Clear Urine pH 7.0 Ur Specific [place] 1.006 Urine Protein Negative Urine Glucose (UA) Negative Urine Ketones Negative Urine Blood Negative Urine Nitrite Negative Urine Bilirubin Negative Urine Urobilinogen Negative Ur Leukocyte Esterase Negative Nasal Screen MRSA (PCR) Negative Digoxin COVID-19 Eval Order SARS-CoV-2 (PCR) 09/14/20 09/14/20 09/14/20 06:11 06:15 06:15 WBC 3.12 L RBC 3.24 L Hgb 9.7 L Hct 30.5 L MCV 94.1 MCH 29.9 MCHC 31.8 L RDW Std Deviation 55.4 H RDW Coeff of [place] 16.0 H Plt Count 245 MPV 9.7 Immature Gran % (Auto) 0.3 Neut % (Auto) 51.0 Lymph % (Auto) 34.3 [place] % (Auto) 11.2 Eos % (Auto) 2.6 Baso % (Auto) 0.6 Neut # (Auto) 1.59 Lymph # (Auto) 1.07 L [place] # (Auto) 0.35 Eos # (Auto) 0.08 Baso # (Auto) 0.02 Immature Gran # (Auto) 0.01 PT 26.3 H INR 2.8 H Sodium Potassium Chloride Carbon Dioxide Anion Gap BUN Creatinine Est Cr Clr Drug Dosing Est GFR ( Amer) Est GFR (Non-Af Amer) BUN/Creatinine Ratio Glucose POC Glucose 83 Lactate Calcium Magnesium Total Bilirubin AST ALT Alkaline Phosphatase Total Creatine Kinase Troponin I Total Protein Albumin Globulin Albumin/Globulin Ratio TSH Free T4 Urine Color Urine Appearance Urine pH Ur Specific [place] Urine Protein Urine Glucose (UA) Urine Ketones Urine Blood Urine Nitrite Urine Bilirubin Urine Urobilinogen Ur Leukocyte Esterase Nasal Screen MRSA (PCR) Digoxin COVID-19 Eval Order SARS-CoV-2 (PCR) 09/14/20 09/14/20 09/14/20 06:15 07:18 11:02 WBC RBC Hgb Hct MCV MCH MCHC RDW Std Deviation RDW Coeff of [place] Plt Count MPV Immature Gran % (Auto) Neut % (Auto) Lymph % (Auto) [place] % (Auto) Eos % (Auto) Baso % (Auto) Neut # (Auto) Lymph # (Auto) [place] # (Auto) Eos # (Auto) Baso # (Auto) Immature Gran # (Auto) PT INR Sodium 141 Potassium 4.2 Chloride 111 H Carbon Dioxide 27 Anion Gap 4.0 BUN 17 Creatinine 0.86 Est Cr Clr Drug Dosing 56.5 Est GFR ( Amer) 73.4 Est GFR (Non-Af Amer) 63.4 BUN/Creatinine Ratio 20.0 Glucose 75 POC Glucose 76 98 Lactate Calcium 7.7 L Magnesium Total Bilirubin AST ALT Alkaline Phosphatase Total Creatine Kinase Troponin I Total Protein Albumin Globulin Albumin/Globulin Ratio TSH Free T4 Urine Color Urine Appearance Urine pH Ur Specific [place] Urine Protein Urine Glucose (UA) Urine Ketones Urine Blood Urine Nitrite Urine Bilirubin Urine Urobilinogen Ur Leukocyte Esterase Nasal Screen MRSA (PCR) Digoxin COVID-19 Eval Order SARS-CoV-2 (PCR) Diagnostic Findings Pacemaker interrogation 08/16/2020 Normal device function with 96% RV pacing chronic persistent atrial fibrillation Estimated battery life 5 years
--- NOTE | 2020-09-14 12:32 | Electrocardiogram Report ---
Test Reason : Blood Pressure : / mmHG Vent. Rate : 062 BPM Atrial Rate : 081 BPM P-R Int : 000 ms QRS Dur : 158 ms QT Int : 464 ms P-R-T Axes : 000 -86 082 degrees QTc Int : 470 ms Ventricular-paced rhythm underlying atrial fibrillation Abnormal ECG When compared with ECG of 24-AUG-2020 08:56, Vent. rate has decreased BY 2 BPM Confirmed by Stephen Almanza ([id number]) on 09/14/2020 12:31:57 PM Referred By: REFERRED SELF Confirmed By:Stephen Almanza
[2020-09-14] MEDS ORDERED: WARFARIN SOD 2 MG TAB PO SCH (16:00)
[2020-09-14] MEDS ORDERED: DIGOXIN 0.125 MG TAB PO SCH (16:00)
[2020-09-14] MEDS: PROMETHAZINE HCL 12.5 MG in SODIUM CHLORIDE 0.9% 50 ML IV PRN (18:36)
--- NOTE | 2020-09-14 19:09 | Hospitalist Progress Note ---
Date of Service September 14, 2020 Assessment & Plan (1) Decompensated heart failure: Volume overload History of chronic diastolic heart failure H/O Valvular heart disease (mild to moderate aortic stenosis, moderate mitral stenosis ) Pulmonary hypertension CXR:Interval development of mild pulmonary edema and small bilateral pleural effusions with mild left basilar opacity. ECHO: No significant change when compared to prior echo Hypoalbuminemia likely contributing to volume overload as well Pacemaker functioning appropriately as per cardiology Appreciate cardiology input Continue IV Lasix Metoprolol dose decreased as per cardiology recommendations Monitor I's and O's, daily weight Sick sinus syndrome H/O A.fib S/P pacemaker Pacemaker interrogated Continue digoxin, metoprolol Continue Coumadin Monitor INR:2.8 CAD S/P Stent Continue Plavix DM II HbA1C:6.6, June 2020 Continue insulin therapy Monitor BGs Chronic anemia myelodysplastic syndrome Hb at baseline Monitor Recurrent UTIs Chronic methenamine suppression Rx CKD III Monitor renal function Avoid nephrotoxic agents as able Hypothyroidism Continue levothyroxine DVT Px: On Coumadin Code Status Full code Admission and Anticipated Discharge Date Admission Date: September 13, 2020 Subjective Patient is seen and examined at bedside States having significant lower extremity edema Dyspnea improved since admission Denies chest pain, dizziness, nausea, abdominal pain Offers no other complaints Review of Systems Review of Systems: All systems reviewed & are unremarkable except as noted in HPI & below Physical Exam Physical Exam: Physical Exam: Vitals signs as noted above General Appearance:Moderately built and nourished, no apparent distress, Elderly Head: normocephalic, Atraumatic Eyes: normal inspection, EOMI Neck: supple, Trachea midline Respiratory/Chest: Normal breath sounds, CTA Cardiovascular: S1, S2, + no murmur Abdomen/GI:Soft, Non tender, Bowel sounds present Extremities/Musculoskeletal:normal inspection, B/L LE edema Neurologic/Psych:AAOX3, grossly no focal neurological deficits, +Hearing impairment Skin: normal color, warm Results & Data Results & Data ([facility]) Vital Signs (Past 12 Hours) Vital Signs Temp Pulse Pulse Resp BP Pulse Ox 09/14/20 17:09 67 09/14/20 15:03 37.1 C 61 18 129/62 99 09/14/20 11:27 36.4 C L 61 18 143/66 H 100 09/14/20 07:20 36.5 C 60 18 147/73 H 98 Laboratory Results Short CBC 09/13/20 09/14/20 Range/Units 19:12 06:15 WBC 3.47 L 3.12 L (4.8-10.8) K/uL Hgb 9.9 L 9.7 L (12.0-16.0) g/dL Hct 30.6 L 30.5 L (37-47) % Plt Count 242 245 (130-400) K/uL BMP 09/13/20 09/13/20 09/14/20 19:12 20:27 06:15 Sodium 139 141 Potassium 3.8 4.2 Chloride 108 H 111 H Carbon Dioxide 26 27 BUN 19 H 17 Creatinine 1.10 0.86 Glucose 190 H 75 Calcium 7.2 L 7.7 L Cardiac Enzymes 09/13/20 09/13/20 Range/Units 19:12 20:27 Total Creatine Kinase 153 (26-192) U/L Troponin I < 0.015 (0-0.045) ng/ml Liver Function 09/13/20 09/13/20 Range/Units 19:12 20:27 Total Bilirubin 0.3 (0.2-1) mg/dl AST 19 (15-37) U/L ALT 22 (12-78) U/L Alkaline Phosphatase 86 (45-117) U/L Albumin 1.8 L (3.4-5.0) gm/dl Urine 09/14/20 Range/Units 00:00 Urine Color Yellow Urine Appearance Clear (Clear) Urine pH 7.0 (4.5-7.5) Ur Specific [place] 1.006 (1.000-1.030) Urine Protein Negative (Negative) Urine Glucose (UA) Negative (Negative)
[2020-09-14] MEDS: METHENAMINE HIPPURATE 1 GM TAB PO SCH (20:07)
[2020-09-14] MEDS ORDERED: OLANZapine 10 MG/2.1 ML SDV IM STA (23:12)
[2020-09-14] MEDS ORDERED: OLANZAPINE 2.5 MG TAB PO STA (23:27)
[2020-09-15] MEDS: LEVOTHYROXINE SODIUM 50 MCG TABLET PO SCH (05:49)
[2020-09-15 06:58] LABS: Hematocrit (blood only) 28.5 % (37-47); Hemoglobin 9.3 g/dL (12.0-16.0); Mean Corpuscular Hemoglobin 30.4 pg (25-34); Mean Corpuscular Hgb Conc 32.6 g/dL (32-36); Mean Corpuscular Volume 93.1 fL (80-100); Mean Platelet Volume 9.5 fL (7.4-10.4); Platelet Count 248 K/uL (130-400); RDW Coefficient of Variation 16.3 % (11.5-14.5); RDW Standard Deviation 55.5 fL (36.4-46.3); Red Blood Count 3.06 M/uL (4.2-5.4); White Blood Count 3.74 K/uL (4.8-10.8)
[2020-09-15 07:08] LABS: INR 2.1 (0.9-1.1); Prothrombin Time 20.5 Seconds (9.0-12.0)
[2020-09-15 07:32] LABS: BUN Creatinine Ratio 17.6 (10-20); Calcium 7.7 mg/dl (8.5-10.1); Creatinine Clr Calc Pharmacy 50.6 ml/min; Est GFR (African American) 65.1 ml/min; Est GFR (Non-African American) 56.2 ml/min; Magnesium 1.9 mg/dl (1.8-2.4); Potassium 4.5 mmol/L (3.5-5.1)
[2020-09-15] MEDS: INSULIN ASPART 100 UNITS/ML 3 ML PEN SC SCH ×4 (08:11→21:08)
[2020-09-15] MEDS: ALBUMIN 25% 12.5 GM/50 ML VIAL IV SCH ×2 (08:15→20:22)
[2020-09-15] MEDS: FUROSEMIDE 40 MG/4 ML VIAL IV SCH ×2 (08:15→20:22)
[2020-09-15] MEDS: POTASSIUM CHLORIDE 10 MEQ TABCR PO SCH ×2 (08:15→17:01)
[2020-09-15] MEDS: FERROUS SULFATE 325 MG TAB PO SCH ×2 (08:17→17:01)
[2020-09-15] MEDS: FAMOTIDINE 20 MG TAB PO SCH (08:17)
[2020-09-15] MEDS: INSULIN GLARGINE SOLOSTAR 100 UNITS/ML 3 ML PEN SQ SCH (08:17)
[2020-09-15] MEDS: CITALOPRAM 40 MG TAB PO SCH (08:17)
[2020-09-15] MEDS: CLOPIDOGREL BISULFATE 75 MG TAB PO SCH (08:17)
[2020-09-15] MEDS: METOPROLOL SUCC 25MG EXT REL TAB PO SCH (08:18)
[2020-09-15] MEDS: ADVANCED PROBIOTIC 1250 MG CAPSULE PO SCH (08:18)
[2020-09-15] MEDS: MULTIVITAMIN TAB PO SCH (08:19)
--- NOTE | 2020-09-15 13:54 | Cardiology Progress Note ---
Date of Service September 15, 2020 Assessment & Plan (1) Chronic heart failure with preserved ejection fraction (HFpEF): Patient is a very complex 79-year-old female admitted with signs and symptoms of acute on chronic diastolic heart failure by chest x-ray and lower extremity edema. Symptoms of increased dyspnea recently. No signs of acute cardiac decompensation by cardiac enzymes and echocardiogram. Suspect multifactorial etiology include including marked hypoalbuminemia contributing. Valvular disease appears stable Pacemaker functioning appropriately with predominantly ventricular paced rhythm Plan: Agree with IV diuretics as ordered following renal function closely Diuresing well with approximately 3 L negative, will continue with diuresis. Metoprolol reduced and will reduce further no signs of tachyarrhythmias or angina. Allow slightly higher heart rate and blood pressure possibly less ventricular pacing Remains paced at 60 bpm despite only metoprolol succinate 12.5 mg daily. Will now hold digoxin. Nutrition issues will need to be addressed, chronic infection exclude (2) Edema of both lower legs: (3) Atrial fibrillation: (4) Valvular heart disease: (5) Pacemaker: (6) Hypoalbuminemia: Admission and Anticipated Discharge Date Admission Date: September 13, 2020 Subjective Patient seen and examined, chart reviewed and case discussed with nursing. No events overnight. Patient currently very somnolent but denies complaints when awoken. Denies chest pain, shortness of breath, palpitations, lightheadedness, dizziness or syncope. Telemetry reviewed: Ventricularly paced rhythm with underlying atrial fibrillation. Review of Systems Review of Systems: All systems reviewed & are unremarkable except as noted in HPI & below Physical Exam Physical Exam: General: Awake, alert and oriented x 3. No acute distress. Malnourished in appearance. Somnolent. HEENT: Normocephalic, atraumatic. Pupils equal, round and reactive to light and accommodation. Extraocular muscles are intact. Anicteric sclera. Moist mucous membranes. Neck: No JVD. No bruit. Cardiovascular: irregularly irregular, unable to appreciate murmur, rub or gallop. Pulmonary: Clear to auscultation bilaterally. No rales, rhonchi, or wheezing. Abdomen: Bowel sounds x 4, soft. No rebound, guarding or tenderness. No organomegaly. Extremities: No clubbing, cyanosis or edema. +2 pedal pulses bilaterally. Skin: Warm and dry. Results & Data ([facility]) Vital Signs (Past 12 Hours) Vital Signs Temp Pulse Resp BP Pulse Ox 09/15/20 11:53 36.8 C 60 17 127/56 L 98 09/15/20 07:16 37.0 C 60 18 141/57 H 100 09/15/20 03:26 36.3 C L 62 20 120/56 L 98
[2020-09-15] MEDS ORDERED: WARFARIN SOD 3 MG TAB PO SCH (16:00)
--- NOTE | 2020-09-15 16:47 | Hospitalist Progress Note ---
Date of Service September 15, 2020 Assessment & Plan (1) Decompensated heart failure: Volume overload History of chronic diastolic heart failure H/O Valvular heart disease (mild to moderate aortic stenosis, moderate mitral stenosis ) Pulmonary hypertension CXR:Interval development of mild pulmonary edema and small bilateral pleural effusions with mild left basilar opacity. ECHO: No significant change when compared to prior echo Hypoalbuminemia likely contributing to volume overload as well Pacemaker functioning appropriately as per cardiology Appreciate cardiology input Continue IV Lasix Metoprolol dose decreased as per cardiology recommendations Monitor I's and O's, daily weight Continue dialysis Also received albumin Sick sinus syndrome H/O A.fib S/P pacemaker Pacemaker interrogated Metoprolol dose decreased to 12.5 mg daily Hold digoxin for now Continue Coumadin--give 3 mg today Monitor INR:2.1 CAD S/P Stent Continue Plavix DM II HbA1C:6.6, June 2020 Continue insulin therapy Monitor BGs Chronic anemia myelodysplastic syndrome Hb at baseline Monitor Recurrent UTIs Chronic methenamine suppression Rx CKD III Monitor renal function Avoid nephrotoxic agents as able Hypothyroidism Continue levothyroxine DVT Px: On Coumadin Code Status Full code Admission and Anticipated Discharge Date Admission Date: September 13, 2020 Subjective Patient is seen and examined at bedside States feeling tired today Leg swelling slowly improving No other complaints Denies chest pain, dyspnea, dizziness, nausea, abdominal pain Review of Systems Review of Systems: All systems reviewed & are unremarkable except as noted in HPI & below Physical Exam Physical Exam: Physical Exam: Vitals signs as noted above General Appearance:Moderately built and nourished, no apparent distress, Elderly Head: normocephalic, Atraumatic Eyes: normal inspection, EOMI Neck: supple, Trachea midline Respiratory/Chest: Normal breath sounds, CTA Cardiovascular: S1, S2, + no murmur Abdomen/GI:Soft, Non tender, Bowel sounds present Extremities/Musculoskeletal:normal inspection, B/L LE edema Neurologic/Psych:AAOX3, grossly no focal neurological deficits, +Hearing impairment Skin: normal color, warm Results & Data Results & Data ([facility]) Vital Signs (Past 12 Hours) Vital Signs Temp Pulse Resp BP Pulse Ox 09/15/20 15:17 36.9 C 65 18 101/57 L 96 09/15/20 11:53 36.8 C 60 17 127/56 L 98 09/15/20 07:16 37.0 C 60 18 141/57 H 100 Laboratory Results Short CBC 09/15/20 Range/Units 06:08 WBC 3.74 L (4.8-10.8) K/uL Hgb 9.3 L (12.0-16.0) g/dL Hct 28.5 L (37-47) % Plt Count 248 (130-400) K/uL BMP 09/15/20 06:08 Sodium 141 Potassium 4.5 Chloride 109 H Carbon Dioxide 28 BUN 17 Creatinine 0.95 Glucose 82 Calcium 7.7 L
[2020-09-15] MEDS: PROMETHAZINE HCL 12.5 MG in SODIUM CHLORIDE 0.9% 50 ML IV PRN (17:11)
[2020-09-15] MEDS ORDERED: ONDANSETRON INJ 2 MG/ML 2 ML VIAL IV ONE (17:59)
[2020-09-15] MEDS: METHENAMINE HIPPURATE 1 GM TAB PO SCH (20:20)
[2020-09-16] MEDS: LEVOTHYROXINE SODIUM 50 MCG TABLET PO SCH (05:48)
[2020-09-16 06:47] LABS: BUN Creatinine Ratio 15.1 (10-20); Calcium 8.1 mg/dl (8.5-10.1); Creatinine Clr Calc Pharmacy 51.7 ml/min; Est GFR (African American) 66.8 ml/min; Est GFR (Non-African American) 57.6 ml/min; Potassium 4.5 mmol/L (3.5-5.1)
[2020-09-16] MEDS: INSULIN ASPART 100 UNITS/ML 3 ML PEN SC SCH ×4 (07:36→20:47)
[2020-09-16 07:49] LABS: Hematocrit (blood only) 27.3 % (37-47); Hemoglobin 8.9 g/dL (12.0-16.0); Mean Corpuscular Hemoglobin 30.6 pg (25-34); Mean Corpuscular Hgb Conc 32.6 g/dL (32-36); Mean Corpuscular Volume 93.8 fL (80-100); Mean Platelet Volume 9.1 fL (7.4-10.4); Platelet Count 227 K/uL (130-400); RDW Coefficient of Variation 16.3 % (11.5-14.5); RDW Standard Deviation 56.3 fL (36.4-46.3); Red Blood Count 2.91 M/uL (4.2-5.4); White Blood Count 3.12 K/uL (4.8-10.8)
[2020-09-16] MEDS: CITALOPRAM 40 MG TAB PO SCH (07:49)
[2020-09-16] MEDS: FERROUS SULFATE 325 MG TAB PO SCH ×2 (07:50→16:47)
[2020-09-16] MEDS: FAMOTIDINE 20 MG TAB PO SCH (07:50)
[2020-09-16] MEDS: CLOPIDOGREL BISULFATE 75 MG TAB PO SCH (07:50)
[2020-09-16] MEDS: ADVANCED PROBIOTIC 1250 MG CAPSULE PO SCH (07:51)
[2020-09-16] MEDS: INSULIN GLARGINE SOLOSTAR 100 UNITS/ML 3 ML PEN SQ SCH (07:51)
[2020-09-16] MEDS: MULTIVITAMIN TAB PO SCH (07:52)
[2020-09-16] MEDS: METOPROLOL SUCC 25MG EXT REL TAB PO SCH (07:52)
[2020-09-16] MEDS: POTASSIUM CHLORIDE 10 MEQ TABCR PO SCH ×2 (07:53→16:48)
[2020-09-16 07:58] LABS: INR 1.8 (0.9-1.1); Prothrombin Time 17.1 Seconds (9.0-12.0)
[2020-09-16] MEDS ORDERED: FUROSEMIDE 20 MG in SYRINGE 0 ML IV ONE ×2 (12:00→13:15)
--- NOTE | 2020-09-16 12:48 | Cardiology Progress Note ---
Date of Service September 16, 2020 Assessment & Plan (1) Chronic heart failure with preserved ejection fraction (HFpEF): Patient is a very complex 79-year-old female admitted with signs and symptoms of acute on chronic diastolic heart failure by chest x-ray and lower extremity edema. Symptoms of increased dyspnea recently. No signs of acute cardiac decompensation by cardiac enzymes and echocardiogram. Suspect multifactorial etiology include including marked hypoalbuminemia contributing. Valvular disease appears stable Pacemaker functioning appropriately with predominantly ventricular paced rhythm Plan: Improved clinically. Would give 1 more dose of IV Lasix at this time and then ambulate to evaluate for dyspnea with exertion. Should her breathing be back to baseline okay to DC to home from a cardiac standpoint. Would increase outpatient Lasix dose to 40 mg p.o. every morning with an afternoon dose as needed. Metoprolol reduced and will reduce further no signs of tachyarrhythmias or angina. Allow slightly higher heart rate and blood pressure possibly less ventricular pacing Remains paced at 60 bpm despite only metoprolol succinate 12.5 mg daily. Will now hold digoxin. Nutrition issues will need to be addressed, chronic infection exclude (2) Edema of both lower legs: (3) Atrial fibrillation: (4) Valvular heart disease: (5) Pacemaker: (6) Hypoalbuminemia: Admission and Anticipated Discharge Date Admission Date: September 13, 2020 Subjective Patient seen and examined, chart reviewed. Patient much more alert compared to yesterday. Currently stating that she feels well at rest but has not ambulated yet today. She believes her breathing is close to baseline. Denies chest pain, palpitations, lightheadedness or dizziness. Telemetry reviewed: Ventricularly paced rhythm with underlying atrial fibrillation. Review of Systems Review of Systems: All systems reviewed & are unremarkable except as noted in HPI & below Physical Exam Physical Exam: General: Awake, alert and oriented x 3. No acute distress. Malnourished in appearance. Somnolent. HEENT: Normocephalic, atraumatic. Pupils equal, round and reactive to light and accommodation. Extraocular muscles are intact. Anicteric sclera. Moist mucous membranes. Neck: No JVD. No bruit. Cardiovascular: irregularly irregular, unable to appreciate murmur, rub or gallop. Pulmonary: Clear to auscultation bilaterally. No rales, rhonchi, or wheezing. Abdomen: Bowel sounds x 4, soft. No rebound, guarding or tenderness. No organomegaly. Extremities: No clubbing, cyanosis or edema. +2 pedal pulses bilaterally. Skin: Warm and dry. Results & Data ([facility]) Vital Signs (Past 12 Hours) Vital Signs Temp Pulse Resp BP Pulse Ox 09/16/20 11:56 36.6 C 62 19 149/73 H 98 09/16/20 07:05 36.7 C 60 17 123/52 L 98 09/16/20 03:30 36.6 C 60 16 97/53 L 98
--- NOTE | 2020-09-16 15:53 | Hospitalist Progress Note ---
Date of Service September 16, 2020 Assessment & Plan (1) Decompensated heart failure: Volume overload History of chronic diastolic heart failure H/O Valvular heart disease (mild to moderate aortic stenosis, moderate mitral stenosis ) Pulmonary hypertension CXR:Interval development of mild pulmonary edema and small bilateral pleural effusions with mild left basilar opacity. ECHO: No significant change when compared to prior echo Hypoalbuminemia likely contributing to volume overload as well Pacemaker functioning appropriately as per cardiology Appreciate cardiology input Received IV Lasix Metoprolol dose decreased as per cardiology recommendations Monitor I's and O's, daily weight Change to p.o. Lasix tomorrow Volume status improved Sick sinus syndrome H/O A.fib S/P pacemaker Pacemaker interrogated Metoprolol dose decreased to 12.5 mg daily Hold digoxin for now Continue Coumadin--Increase to 5 mg today Monitor INR:2.1>1.8 CAD S/P Stent Continue Plavix DM II HbA1C:6.6, June 2020 Continue insulin therapy Monitor BGs Chronic anemia myelodysplastic syndrome Hb at baseline Monitor Recurrent UTIs Chronic methenamine suppression Rx CKD III Monitor renal function Avoid nephrotoxic agents as able Hypothyroidism Continue levothyroxine DVT Px: On Coumadin Code Status Full code Admission and Anticipated Discharge Date Admission Date: September 13, 2020 Subjective Patient is seen and examined at bedside States feeling well today Offers no complaints Diuresing well Leg edema continues to improve Denies chest pain, dyspnea, dizziness, nausea, abdominal pain Review of Systems Review of Systems: All systems reviewed & are unremarkable except as noted in HPI & below Physical Exam Physical Exam: Physical Exam: Vitals signs as noted above General Appearance:Moderately built and nourished, no apparent distress, Elderly Head: normocephalic, Atraumatic Eyes: normal inspection, EOMI Neck: supple, Trachea midline Respiratory/Chest: Normal breath sounds, CTA Cardiovascular: S1, S2, + no murmur Abdomen/GI:Soft, Non tender, Bowel sounds present Extremities/Musculoskeletal:normal inspection, B/L LE edema improved Neurologic/Psych:AAOX3, grossly no focal neurological deficits, +Hearing impairment Skin: normal color, warm Results & Data Results & Data ([facility]) Vital Signs (Past 12 Hours) Vital Signs Temp Pulse Resp BP Pulse Ox 09/16/20 11:56 36.6 C 62 19 149/73 H 98 09/16/20 07:05 36.7 C 60 17 123/52 L 98 Laboratory Results Short CBC 09/16/20 Range/Units 07:37 WBC 3.12 L (4.8-10.8) K/uL Hgb 8.9 L (12.0-16.0) g/dL Hct 27.3 L (37-47) % Plt Count 227 (130-400) K/uL BMP 09/16/20 05:30 Sodium 142 Potassium 4.5 Chloride 109 H Carbon Dioxide 31 BUN 14 Creatinine 0.93 Glucose 66 L Calcium 8.1 L
[2020-09-16] MEDS ORDERED: WARFARIN SOD 5 MG TAB PO SCH (16:00)
[2020-09-16] MEDS: METHENAMINE HIPPURATE 1 GM TAB PO SCH (20:28)
[2020-09-17] MEDS: LEVOTHYROXINE SODIUM 50 MCG TABLET PO SCH (05:50)
[2020-09-17 06:26] LABS: Hematocrit (blood only) 29.3 % (37-47); Hemoglobin 9.4 g/dL (12.0-16.0)
[2020-09-17 06:39] LABS: INR 1.7 (0.9-1.1); Prothrombin Time 16.2 Seconds (9.0-12.0)
[2020-09-17 07:03] LABS: BUN Creatinine Ratio 15.6 (10-20); Calcium 7.8 mg/dl (8.5-10.1); Creatinine Clr Calc Pharmacy 51.6 ml/min; Est GFR (African American) 67.7 ml/min; Est GFR (Non-African American) 58.4 ml/min; Potassium 4.1 mmol/L (3.5-5.1)
[2020-09-17] MEDS: INSULIN ASPART 100 UNITS/ML 3 ML PEN SC SCH ×4 (07:48→20:39)
[2020-09-17] MEDS: ADVANCED PROBIOTIC 1250 MG CAPSULE PO SCH (07:49)
[2020-09-17] MEDS: CITALOPRAM 40 MG TAB PO SCH (07:49)
[2020-09-17] MEDS: FAMOTIDINE 20 MG TAB PO SCH (07:49)
[2020-09-17] MEDS: POTASSIUM CHLORIDE 10 MEQ TABCR PO SCH ×2 (07:49→16:39)
[2020-09-17] MEDS: FUROSEMIDE 40 MG TAB PO SCH (07:49)
[2020-09-17] MEDS: MULTIVITAMIN TAB PO SCH (07:50)
[2020-09-17] MEDS: METOPROLOL SUCC 25MG EXT REL TAB PO SCH (07:50)
[2020-09-17] MEDS: FERROUS SULFATE 325 MG TAB PO SCH ×2 (07:50→16:39)
[2020-09-17] MEDS: INSULIN GLARGINE SOLOSTAR 100 UNITS/ML 3 ML PEN SQ SCH (07:50)
[2020-09-17] MEDS: CLOPIDOGREL BISULFATE 75 MG TAB PO SCH (07:50)
[2020-09-17] MEDS ORDERED: SODIUM CHLORIDE 0.9% 500 ML IV ONE (11:35)
--- NOTE | 2020-09-17 12:48 | Cardiology Progress Note ---
Date of Service September 17, 2020 Assessment & Plan (1) Chronic heart failure with preserved ejection fraction (HFpEF): Patient is a very complex 79-year-old female admitted with signs and symptoms of acute on chronic diastolic heart failure by chest x-ray and lower extremity edema. Symptoms of increased dyspnea recently. No signs of acute cardiac decompensation by cardiac enzymes and echocardiogram. Suspect multifactorial etiology include including marked hypoalbuminemia contributing. Valvular disease appears stable Pacemaker functioning appropriately with predominantly ventricular paced rhythm Plan: Improved clinically. Hypotensive today requiring IV fluids. No further cardiac testing intervention necessary at this time. Metoprolol reduced and will reduce further no signs of tachyarrhythmias or angina. Allow slightly higher heart rate and blood pressure possibly less ventricular pacing Remains paced at 60 bpm despite only metoprolol succinate 12.5 mg daily. Will now hold digoxin. Nutrition issues will need to be addressed, chronic infection exclude (2) Edema of both lower legs: (3) Atrial fibrillation: (4) Valvular heart disease: (5) Pacemaker: (6) Hypoalbuminemia: Admission and Anticipated Discharge Date Admission Date: September 13, 2020 Subjective Patient seen and examined, chart reviewed. Out of bed in chair currently states that she feels fine and is anxious for discharge. Denies chest pain, shortness of breath, palpitations, lightheadedness, dizziness or syncope. Telemetry reviewed: Ventricularly paced with underlying atrial fibrillation. Review of Systems Review of Systems: All systems reviewed & are unremarkable except as noted in HPI & below Physical Exam Physical Exam: General: Awake, alert and oriented x 3. No acute distress. Malnourished in appearance. Somnolent. HEENT: Normocephalic, atraumatic. Pupils equal, round and reactive to light and accommodation. Extraocular muscles are intact. Anicteric sclera. Moist mucous membranes. Neck: No JVD. No bruit. Cardiovascular: irregularly irregular, unable to appreciate murmur, rub or gallop. Pulmonary: Clear to auscultation bilaterally. No rales, rhonchi, or wheezing. Abdomen: Bowel sounds x 4, soft. No rebound, guarding or tenderness. No organomegaly. Extremities: No clubbing, cyanosis or edema. +2 pedal pulses bilaterally. Skin: Warm and dry. Results & Data ([facility]) Vital Signs (Past 12 Hours) Vital Signs Temp Pulse Pulse Resp BP Pulse Ox Pulse Ox 09/17/20 11:15 37.0 C 61 18 94/48 L 97 09/17/20 08:00 60 95 09/17/20 07:33 36.8 C 65 18 118/57 L 96 09/17/20 03:43 36.8 C 60 20 132/60 95
[2020-09-17] MEDS: WARFARIN SOD 6 MG TAB PO SCH (16:39)
--- NOTE | 2020-09-17 17:51 | Hospitalist Progress Note ---
Date of Service September 17, 2020 Assessment & Plan (1) Decompensated heart failure: Volume overload History of chronic diastolic heart failure H/O Valvular heart disease (mild to moderate aortic stenosis, moderate mitral stenosis ) Pulmonary hypertension CXR:Interval development of mild pulmonary edema and small bilateral pleural effusions with mild left basilar opacity. ECHO: No significant change when compared to prior echo Hypoalbuminemia likely contributing to volume overload as well Pacemaker functioning appropriately as per cardiology Appreciate cardiology input Received IV Lasix Metoprolol dose decreased as per cardiology recommendations Monitor I's and O's, daily weight Volume status improved Restart PO Lasix as able Hypotensive today requiring gentle IV fluids Sick sinus syndrome H/O A.fib S/P pacemaker Pacemaker interrogated Metoprolol dose decreased to 12.5 mg daily Hold digoxin for now Continue Coumadin--Increase to 6 mg today Monitor INR:2.1>1.8>1.7 CAD S/P Stent Continue Plavix DM II HbA1C:6.6, June 2020 Continue insulin therapy Monitor BGs Chronic anemia myelodysplastic syndrome Hb at baseline Monitor Recurrent UTIs Chronic methenamine suppression Rx CKD III Monitor renal function Avoid nephrotoxic agents as able Hypothyroidism Continue levothyroxine DVT Px: On Coumadin Code Status Full code Admission and Anticipated Discharge Date Admission Date: September 13, 2020 Subjective Patient is seen and examined at bedside States not feeling self today Feels tired Hypotensive this morning Leg edema improved Denies chest pain, dyspnea, dizziness, nausea, abdominal pain Review of Systems Review of Systems: As per HPI, all 10 systems reviewed, all other ROS negative Physical Exam Physical Exam: Physical Exam: Vitals signs as noted above General Appearance:Moderately built and nourished, no apparent distress, Elderly Head: normocephalic, Atraumatic Eyes: normal inspection, EOMI Neck: supple, Trachea midline Respiratory/Chest: Normal breath sounds, CTA Cardiovascular: S1, S2, + no murmur Abdomen/GI:Soft, Non tender, Bowel sounds present Extremities/Musculoskeletal:normal inspection, B/L LE edema improved Neurologic/Psych:AAOX3, grossly no focal neurological deficits, +Hearing impairment Skin: normal color, warm Results & Data Results & Data ([facility]) Vital Signs (Past 12 Hours) Vital Signs Temp Pulse Pulse Resp BP Pulse Ox Pulse Ox 09/17/20 16:00 66 96 09/17/20 11:15 37.0 C 61 18 94/48 L 97 09/17/20 08:00 60 95 09/17/20 07:33 36.8 C 65 18 118/57 L 96
[2020-09-17] MEDS: METHENAMINE HIPPURATE 1 GM TAB PO SCH (19:56)
[2020-09-18] MEDS: LEVOTHYROXINE SODIUM 50 MCG TABLET PO SCH (05:31)
[2020-09-18 06:29] LABS: INR 1.9 (0.9-1.1); Prothrombin Time 17.9 Seconds (9.0-12.0)
[2020-09-18 06:57] LABS: BUN Creatinine Ratio 18.1 (10-20); Calcium 7.6 mg/dl (8.5-10.1); Creatinine Clr Calc Pharmacy 55.3 ml/min; Est GFR (African American) 72.4 ml/min; Est GFR (Non-African American) 62.5 ml/min; Potassium 3.7 mmol/L (3.5-5.1)
[2020-09-18] MEDS: INSULIN ASPART 100 UNITS/ML 3 ML PEN SC SCH ×4 (07:54→20:28)
[2020-09-18] MEDS: ADVANCED PROBIOTIC 1250 MG CAPSULE PO SCH (07:55)
[2020-09-18] MEDS: FAMOTIDINE 20 MG TAB PO SCH (07:55)
[2020-09-18] MEDS: CITALOPRAM 40 MG TAB PO SCH (07:55)
[2020-09-18] MEDS: FERROUS SULFATE 325 MG TAB PO SCH ×2 (07:55→17:00)
[2020-09-18] MEDS: CLOPIDOGREL BISULFATE 75 MG TAB PO SCH (07:56)
[2020-09-18] MEDS: POTASSIUM CHLORIDE 10 MEQ TABCR PO SCH ×2 (07:56→17:00)
[2020-09-18] MEDS: MULTIVITAMIN TAB PO SCH (07:56)
[2020-09-18] MEDS: INSULIN GLARGINE SOLOSTAR 100 UNITS/ML 3 ML PEN SQ SCH (08:01)
[2020-09-18] MEDS: FUROSEMIDE 40 MG TAB PO SCH (08:33)
--- NOTE | 2020-09-18 13:08 | Cardiology Progress Note ---
Date of Service September 18, 2020 Assessment & Plan (1) Chronic heart failure with preserved ejection fraction (HFpEF): Patient is a very complex 79-year-old female admitted with signs and symptoms of acute on chronic diastolic heart failure by chest x-ray and lower extremity edema. Symptoms of increased dyspnea recently. No signs of acute cardiac decompensation by cardiac enzymes and echocardiogram. Suspect multifactorial etiology include including marked hypoalbuminemia contributing. Valvular disease appears stable Pacemaker functioning appropriately with predominantly ventricular paced rhythm Plan: Improved clinically. Patient no longer examines as volume overloaded. Blood pressure improved with IV hydration. Remains paced at 60 bpm despite only metoprolol succinate 12.5 mg daily. Will now hold digoxin. Nutrition issues will need to be addressed, chronic infection exclude Okay to discharge from a cardiac standpoint. Would DC home with Lasix 20 mg p.o. every morning with an afternoon as needed dose of 20 mg. Will need outpatient blood work to follow renal function and electrolytes. My office will call to schedule CHF clinic follow-up in the next few days. (2) Edema of both lower legs: (3) Atrial fibrillation: (4) Valvular heart disease: (5) Pacemaker: (6) Hypoalbuminemia: Admission and Anticipated Discharge Date Admission Date: September 13, 2020 Subjective Patient seen and examined, chart reviewed. Case discussed with nursing. Patient states that she feels very tired and fatigued today. Once again is anxious for discharge. Denies any cardiac complaints of chest pain, shortness of breath, palpitations or lightheadedness. Telemetry reviewed: Ventricularly paced rhythm with underlying atrial fibrillation. Review of Systems Review of Systems: All systems reviewed & are unremarkable except as noted in HPI & below Physical Exam Physical Exam: General: Awake, alert and oriented x 3. No acute distress. Malnourished in appearance. Somnolent. HEENT: Normocephalic, atraumatic. Pupils equal, round and reactive to light and accommodation. Extraocular muscles are intact. Anicteric sclera. Moist mucous membranes. Neck: No JVD. No bruit. Cardiovascular: irregularly irregular, unable to appreciate murmur, rub or gallop. Pulmonary: Clear to auscultation bilaterally. No rales, rhonchi, or wheezing. Abdomen: Bowel sounds x 4, soft. No rebound, guarding or tenderness. No organomegaly. Extremities: No clubbing, cyanosis or edema. +2 pedal pulses bilaterally. Skin: Warm and dry. Results & Data ([facility]) Vital Signs (Past 12 Hours) Vital Signs Temp Pulse Pulse Resp BP BP Pulse Ox 09/18/20 11:22 110/50 L 09/18/20 11:02 37.1 C 71 19 95/52 L 95 09/18/20 07:20 60 09/18/20 07:00 36.7 C 61 17 114/57 L 97 09/18/20 03:39 36.4 C L 61 16 98/49 L 95
--- NOTE | 2020-09-18 14:03 | Hospitalist Progress Note ---
Date of Service September 18, 2020 Assessment & Plan (1) Decompensated heart failure: Volume overload History of chronic diastolic heart failure H/O Valvular heart disease (mild to moderate aortic stenosis, moderate mitral stenosis ) Pulmonary hypertension CXR:Interval development of mild pulmonary edema and small bilateral pleural effusions with mild left basilar opacity. ECHO: No significant change when compared to prior echo Hypoalbuminemia likely contributing to volume overload as well Pacemaker functioning appropriately as per cardiology Appreciate cardiology input Received IV Lasix Metoprolol dose decreased as per cardiology recommendations Monitor I's and O's, daily weight Volume status improved Continue lasix 20mg daily and 20mg lasix in Afternoon PRN Needs follow-up with cardiology upon discharge Plan to discharge to SNF when arranged Sick sinus syndrome H/O A.fib S/P pacemaker Pacemaker interrogated Metoprolol dose decreased to 12.5 mg daily Hold digoxin for now Continue Coumadin Monitor INR:2.1>1.8>1.7>1.9 Adjust Coumadin dose as needed CAD S/P Stent Continue Plavix DM II HbA1C:6.6, June 2020 Continue insulin therapy Monitor BGs Hold Lantus due to relatively low BGs (Consider adjusting upon discharge as well) Chronic anemia myelodysplastic syndrome Hb at baseline Monitor Recurrent UTIs Chronic methenamine suppression Rx CKD III Monitor renal function Avoid nephrotoxic agents as able Hypothyroidism Continue levothyroxine DVT Px: On Coumadin Code Status Full code Admission and Anticipated Discharge Date Admission Date: September 13, 2020 Subjective Patient is seen and examined at bedside Feels nauseous and tired this morning Otherwise feels well Denies chest pain, dyspnea, dizziness, nausea, abdominal pain Waiting for SNF placement Review of Systems Review of Systems: All systems reviewed & are unremarkable except as noted in HPI & below Physical Exam Physical Exam: Physical Exam: Vitals signs as noted above General Appearance:Moderately built and nourished, no apparent distress, Elderly Head: normocephalic, Atraumatic Eyes: normal inspection, EOMI Neck: supple, Trachea midline Respiratory/Chest: Normal breath sounds, CTA Cardiovascular: S1, S2, + no murmur Abdomen/GI:Soft, Non tender, Bowel sounds present Extremities/Musculoskeletal:normal inspection, B/L LE edema improved Neurologic/Psych:AAOX3, grossly no focal neurological deficits, +Hearing impairment Skin: normal color, warm Results & Data Results & Data ([place]) Vital Signs (Past 12 Hours) Vital Signs Temp Pulse Pulse Resp BP BP Pulse Ox 09/18/20 11:22 110/50 L 09/18/20 11:02 37.1 C 71 19 95/52 L 95 09/18/20 07:20 60 09/18/20 07:00 36.7 C 61 17 114/57 L 97 09/18/20 03:39 36.4 C L 61 16 98/49 L 95 Laboratory Results [facility] 09/18/20 05:35 Sodium 143 Potassium 3.7 Chloride 109 H Carbon Dioxide 32 BUN 16 Creatinine 0.87 Glucose 68 L Calcium 7.6 L
[2020-09-18] MEDS: WARFARIN SOD 6 MG TAB PO SCH (16:59)
[2020-09-18] MEDS ORDERED: FUROSEMIDE 20 MG TAB PO PRN (17:00)
[2020-09-18] MEDS: METHENAMINE HIPPURATE 1 GM TAB PO SCH (19:43)
[2020-09-19] MEDS: LEVOTHYROXINE SODIUM 50 MCG TABLET PO SCH (05:36)
[2020-09-19 06:36] LABS: Hematocrit (blood only) 29.5 % (37-47); Hemoglobin 9.5 g/dL (12.0-16.0)
[2020-09-19 06:56] LABS: Prothrombin Time 19.6 Seconds (9.0-12.0)
[2020-09-19 07:10] LABS: BUN Creatinine Ratio 16.8 (10-20); Calcium 7.9 mg/dl (8.5-10.1); Creatinine Clr Calc Pharmacy 58.4 ml/min; Est GFR (African American) 76.6 ml/min; Est GFR (Non-African American) 66.1 ml/min
[2020-09-19] MEDS: MULTIVITAMIN TAB PO SCH (08:16)
[2020-09-19] MEDS: POTASSIUM CHLORIDE 10 MEQ TABCR PO SCH ×2 (08:16→17:26)
[2020-09-19] MEDS: CLOPIDOGREL BISULFATE 75 MG TAB PO SCH (08:17)
[2020-09-19] MEDS: CITALOPRAM 40 MG TAB PO SCH (08:17)
[2020-09-19] MEDS: ADVANCED PROBIOTIC 1250 MG CAPSULE PO SCH (08:17)
[2020-09-19] MEDS: FAMOTIDINE 20 MG TAB PO SCH (08:17)
[2020-09-19] MEDS: FERROUS SULFATE 325 MG TAB PO SCH ×2 (08:17→17:26)
[2020-09-19] MEDS: FUROSEMIDE 20 MG TAB PO SCH (08:17)
[2020-09-19] MEDS: INSULIN ASPART 100 UNITS/ML 3 ML PEN SC SCH ×4 (08:18→21:02)
[2020-09-19] MEDS: METOPROLOL SUCC 25MG EXT REL TAB PO SCH (09:13)
--- NOTE | 2020-09-19 11:16 | Cardiology Progress Note ---
Date of Service September 19, 2020 Assessment & Plan (1) Chronic heart failure with preserved ejection fraction (HFpEF): Patient is a very complex 79-year-old female admitted with signs and symptoms of acute on chronic diastolic heart failure by chest x-ray and lower extremity edema. Symptoms of increased dyspnea recently. No signs of acute cardiac decompensation by cardiac enzymes and echocardiogram. Suspect multifactorial etiology include including marked hypoalbuminemia contributing. Valvular disease appears stable Pacemaker functioning appropriately with predominantly ventricular paced rhythm Plan: Improved clinically. Patient no longer examines as volume overloaded. Blood pressure improved with IV hydration. Remains paced at 60 bpm despite only metoprolol succinate 12.5 mg daily. Will now hold digoxin. Nutrition issues will need to be addressed, chronic infection exclude Okay to discharge from a cardiac standpoint. Would DC home with Lasix 20 mg p.o. every morning with an afternoon as needed dose of 20 mg. Will need outpatient blood work to follow renal function and electrolytes. My office will call to schedule CHF clinic follow-up in the next few days. (2) Edema of both lower legs: (3) Atrial fibrillation: (4) Valvular heart disease: (5) Pacemaker: (6) Hypoalbuminemia: Admission and Anticipated Discharge Date Admission Date: September 13, 2020 Subjective Patient seen and examined, chart reviewed. Continues to state that she feels well and is anxious for discharge. Denies cardiac complaints of chest pain, shortness of breath, palpitations, lightheadedness, dizziness or syncope Review of Systems Review of Systems: All systems reviewed & are unremarkable except as noted in HPI & below Physical Exam Physical Exam: General: Awake, alert and oriented x 3. No acute distress. Malnourished in appearance. Somnolent. HEENT: Normocephalic, atraumatic. Pupils equal, round and reactive to light and accommodation. Extraocular muscles are intact. Anicteric sclera. Moist mucous membranes. Neck: No JVD. No bruit. Cardiovascular: irregularly irregular, unable to appreciate murmur, rub or gallop. Pulmonary: Clear to auscultation bilaterally. No rales, rhonchi, or wheezing. Abdomen: Bowel sounds x 4, soft. No rebound, guarding or tenderness. No organomegaly. Extremities: No clubbing, cyanosis or edema. +2 pedal pulses bilaterally. Skin: Warm and dry. Results & Data ([facility]) Vital Signs (Past 12 Hours) Vital Signs Temp Pulse Pulse Resp BP BP Pulse Ox 09/19/20 09:13 66 91/54 L 09/19/20 08:10 60 09/19/20 07:46 36.8 C 67 17 139/64 96 09/19/20 03:45 36.8 C 68 17 131/58 L 99
[2020-09-19] MEDS ORDERED: SODIUM CHLORIDE 0.9% 250 ML IV SCH (11:30)
--- NOTE | 2020-09-19 11:30 | Hospitalist Progress Note ---
Date of Service September 19, 2020 Assessment & Plan (1) Decompensated heart failure: Volume overload History of chronic diastolic heart failure H/O Valvular heart disease (mild to moderate aortic stenosis, moderate mitral stenosis ) Pulmonary hypertension CXR:Interval development of mild pulmonary edema and small bilateral pleural effusions with mild left basilar opacity. ECHO: No significant change when compared to prior echo Hypoalbuminemia likely contributing to volume overload as well Pacemaker functioning appropriately as per cardiology Appreciate cardiology input Received IV Lasix Metoprolol dose decreased as per cardiology recommendations Monitor I's and O's, daily weight Volume status improved Continue lasix 20mg daily and 20mg lasix in Afternoon PRN Needs follow-up with cardiology upon discharge Plan to discharge to SNF when arranged Sick sinus syndrome H/O A.fib S/P pacemaker Pacemaker interrogated Metoprolol dose decreased to 12.5 mg daily Hold digoxin for now Continue Coumadin Monitor INR:2.1>1.8>1.7>1.9 Adjust Coumadin dose as needed CAD S/P Stent Continue Plavix DM II HbA1C:6.6%, June 2020 Continue insulin therapy Monitor BGs Hold Lantus due to relatively low BGs (Consider adjusting upon discharge as well) Chronic anemia myelodysplastic syndrome Hb at baseline Monitor Recurrent UTIs Chronic methenamine suppression Rx CKD III Monitor renal function Avoid nephrotoxic agents as able Hypothyroidism Continue levothyroxine DVT Px: On Coumadin Code Status Full code Admission and Anticipated Discharge Date Admission Date: September 13, 2020 Subjective Patient seen in follow-up of CHF Worked with PT, became orthostatic, BP systolic in 70s Gave small amount of fluid, 250 cc Denies any chest pain or shortness of breath, reports feeling tired No fevers chills, abdominal pain, nausea or vomiting Review of Systems Review of Systems: All systems reviewed & are unremarkable except as noted in HPI & below Constitutional: no fever and no chills Respiratory: no cough and no dyspnea Cardiovascular: no chest pain Gastrointestinal: no abdominal pain, no nausea and no vomiting Physical Exam Physical Exam: General Appearance:Moderately built and nourished, no apparent distress, Elderly F Head: normocephalic, Atraumatic Eyes: normal inspection, EOMI Neck: supple, Trachea midline Respiratory/Chest: Normal breath sounds, CTA Cardiovascular: S1, S2, + no murmur Abdomen/GI:Soft, Non tender, Bowel sounds present Extremities/Musculoskeletal:normal inspection, B/L LE edema improved Neurologic/Psych:AAOX3, grossly no focal neurological deficits, +Hearing impairment Skin: normal color, warm Results & Data Results & Data ([facility]) Vital Signs (Past 12 Hours) Vital Signs Temp Pulse Pulse Resp BP BP Pulse Ox 09/19/20 11:11 95 H 71/44 L 09/19/20 11:09 75 125/79 09/19/20 09:13 66 91/54 L 09/19/20 08:10 60 09/19/20 07:46 36.8 C 67 17 139/64 96 09/19/20 03:45 36.8 C 68 17 131/58 L 99 Laboratory Results 09/19/20 09/19/20 09/19/20 Range/Units 11:01 07:08 06:05 Hgb 9.5 L (12.0-16.0) g/dL Hct 29.5 L (37-47) % PT (9.0-12.0) Seconds INR (0.9-1.1) Sodium (136-145) mmol/L Potassium (3.5-5.1) mmol/L Chloride (98-107) mmol/L Carbon Dioxide (21-32) mmol/L Anion Gap (3-11) BUN (7-18) mg/dl Creatinine (0.6-1.2) mg/dl Est Cr Clr Drug Dosing ml/min Est GFR ( Amer) ml/min Est GFR (Non-Af Amer) ml/min BUN/Creatinine Ratio (10-20) Glucose (70-99) mg/dl POC Glucose 124 H 99 (70-99) mg/dl Calcium (8.5-10.1) mg/dl 09/19/20 09/19/20 09/18/20 Range/Units 06:05 06:05 20:23 Hgb (12.0-16.0) g/dL Hct (37-47) % PT 19.6 H (9.0-12.0) Seconds INR 2.0 H (0.9-1.1) Sodium 144 (136-145) mmol/L Potassium 4.0 (3.5-5.1) mmol/L Chloride 110 H (98-107) mmol/L Carbon Dioxide 31 (21-32) mmol/L Anion Gap 3.0 (3-11) BUN 14 (7-18) mg/dl Creatinine 0.83 (0.6-1.2) mg/dl Est Cr Clr Drug Dosing 58.4 ml/min Est GFR ( Amer) 76.6 ml/min Est GFR (Non-Af Amer) 66.1 ml/min BUN/Creatinine Ratio 16.8 (10-20) Glucose 82 (70-99) mg/dl POC Glucose 146 H (70-99) mg/dl Calcium 7.9 L (8.5-10.1) mg/dl 09/18/20 Range/Units 16:34 Hgb (12.0-16.0) g/dL Hct (37-47) % PT (9.0-12.0) Seconds INR (0.9-1.1) Sodium (136-145) mmol/L Potassium (3.5-5.1) mmol/L Chloride (98-107) mmol/L Carbon Dioxide (21-32) mmol/L Anion Gap (3-11) BUN (7-18) mg/dl Creatinine (0.6-1.2) mg/dl Est Cr Clr Drug Dosing ml/min Est GFR ( Amer) ml/min Est GFR (Non-Af Amer) ml/min BUN/Creatinine Ratio (10-20) Glucose (70-99) mg/dl POC Glucose 100 H (70-99) mg/dl Calcium (8.5-10.1) mg/dl Medications Administered Current Inpatient Medications Acetaminophen (Acetaminophen 325 Mg Tab) 650 mg PO Q4H PRN PRN Reason: Pain or Fever Stop: 10/14/20 00:58 Last Admin: 09/15/20 21:49 Dose: 650 mg Documented by: Citalopram Hydrobromide (Citalopram 40 Mg Tab) 40 mg PO [facility] Stop: 10/14/20 08:59 Last Admin: 09/19/20 08:17 Dose: 40 mg Documented by: Clopidogrel Bisulfate (Clopidogrel Bisulfate 75 Mg Tab) 75 mg PO [facility] Stop: 10/14/20 08:59 Last Admin: 09/19/20 08:17 Dose: 75 mg Documented by: Dextrose (Dextrose 50% 50 Ml Syringe) 25 - 50 ml IV UD PRN; Protocol PRN Reason: Hypoglycemia Protocol Stop: 10/14/20 00:58 Digoxin (Digoxin 0.125 Mg Tab) 0.125 mg PO MoTuWeThFr@1600 [facility] Stop: 10/14/20 15:59 Last Admin: 09/14/20 17:09 Dose: 0.125 mg Documented by: Famotidine (Famotidine 20 Mg Tab) 20 mg PO QAM [facility] Stop: 10/14/20 08:59 Last Admin: 09/19/20 08:17 Dose: 20 mg Documented by: Ferrous Sulfate (Ferrous Sulfate 325 Mg Tab) 325 mg PO BID17 [facility] Stop: 10/14/20 08:59 Last Admin: 09/19/20 08:17 Dose: 325 mg Documented by: Furosemide (Furosemide 20 Mg Tab) [facility] Stop: 10/19/20 08:59 Last Admin: 09/19/20 08:17 Dose: 20 mg Documented by: Furosemide (Furosemide 20 Mg Tab) 20 mg PO 1700 PRN PRN Reason: Edema Stop: 10/18/20 16:59 Glucagon (Glucagon For Inj 1 Mg Vial) 1 mg SQ UD PRN; Protocol PRN Reason: Hypoglycemia Protocol Stop: 10/14/20 00:58 Glucose (Glucose 10 Tabs/Tube) 4 - 8 tabs PO UD PRN; Protocol PRN Reason: Hypoglycemia Protocol Stop: 10/14/20 00:58 Glucose (Glucose 40% Gel 15 Gm Tube) 15 - 30 gm PO UD PRN; Protocol PRN Reason: Hypoglycemia Protocol Stop: 10/14/20 00:58 Promethazine HCl 12.5 mg/ (Sodium Chloride) 50.5 mls @ 202 mls/hr IV Q6H PRN PRN Reason: Nausea And Vomiting Stop: 10/14/20 00:58 Last Infusion: 09/15/20 17:33 Dose: Infused Documented by: Sodium Chloride (Nss) 250 mls @ 80 mls/hr IV .Q3H8M [facility] Stop: 10/19/20 11:29 Insulin Aspart (Insulin Aspart 100 Units/Ml 3 Ml Pen) [facility] Stop: 10/14/20 00:58 Last Admin: 09/19/20 08:18 Dose: 1 units Documented by: Insulin Glargine (Insulin Glargine Solostar 100 Units/Ml 3 Ml Pen) 5 units SQ [facility] Stop: 10/17/20 08:59 Last Admin: 09/18/20 08:01 Dose: Not Given Documented by: Lactobacillus Acidoph/Casei/Rhamnos (Advanced Probiotic 1250 Mg Capsule) 2 cap PO DAILY [facility] Stop: 10/14/20 08:59 Last Admin: 09/19/20 08:17 Dose: 2 cap Documented by: Levothyroxine Sodium (Levothyroxine Sodium 50 Mcg Tablet) 50 mcg PO DAILYBB [facility] Stop: 10/14/20 06:29 Last Admin: 09/19/20 05:36 Dose: 50 mcg Documented by: Methenamine Hippurate (Methenamine Hippurate 1 Gm Tab) 1 gm PO HS [facility] Stop: 10/14/20 20:59 Last Admin: 09/18/20 19:43 Dose: 1 gm Documented by: Metoprolol Succinate (Metoprolol Succ 25mg Ext Rel Tab) 12.5 mg PO QAM [facility] Stop: 10/15/20 08:59 Last Admin: 09/19/20 09:13 Dose: Not Given Documented by: Miscellaneous (Carbohydrates For Hypoglycemia ) 15 - 30 gm PO UD PRN PRN Reason: Hypoglycemia Protocol Stop: 10/14/20 00:58 Last Admin: 09/16/20 11:35 Dose: 15 gm Documented by: Multivitamins (Multivitamin Tab) 1 tab PO DAILY [facility] Stop: 10/14/20 08:59 Last Admin: 09/19/20 08:16 Dose: 1 tab Documented by: Nitroglycerin (Nitroglycerin Sl 0.4 Mg/Tab Tab) 0.4 mg SL UD PRN PRN Reason: Chest Pain Stop: 10/14/20 00:58 Potassium Chloride (Potassium Chloride 10 Meq Tabcr) 10 meq PO BID17 [facility] Stop: 10/15/20 08:59 Last Admin: 09/19/20 08:16 Dose: 10 meq Documented by: Tramadol HCl (Tramadol Hcl 50 Mg Tablet) 25 mg PO Q4H PRN PRN Reason: Pain Stop: 10/14/20 00:58 Warfarin Sodium (Warfarin Sod 6 Mg Tab) 6 mg PO DAILY@1600 [facility] Stop: 10/17/20 15:59 Last Admin: 09/18/20 16:59 Dose: 6 mg Documented by:
[2020-09-19] MEDS: WARFARIN SOD 6 MG TAB PO SCH (17:26)
[2020-09-19] MEDS: METHENAMINE HIPPURATE 1 GM TAB PO SCH (21:02)
[2020-09-20] MEDS: LEVOTHYROXINE SODIUM 50 MCG TABLET PO SCH (06:15)
[2020-09-20 06:22] LABS: INR 2.5 (0.9-1.1); Prothrombin Time 23.5 Seconds (9.0-12.0)
[2020-09-20 06:52] LABS: BUN Creatinine Ratio 16.9 (10-20); Calcium 7.8 mg/dl (8.5-10.1); Creatinine Clr Calc Pharmacy 53.8 ml/min; Est GFR (African American) 70.4 ml/min; Est GFR (Non-African American) 60.8 ml/min; Magnesium 1.9 mg/dl (1.8-2.4); Phosphorus 3.2 mg/dl (2.5-4.9); Potassium 4.3 mmol/L (3.5-5.1)
--- NOTE | 2020-09-20 08:24 | Hospitalist Progress Note ---
Date of Service September 20, 2020 Assessment & Plan (1) Decompensated heart failure: Volume overload History of chronic diastolic heart failure H/O Valvular heart disease (mild to moderate aortic stenosis, moderate mitral stenosis ) Pulmonary hypertension CXR:Interval development of mild pulmonary edema and small bilateral pleural effusions with mild left basilar opacity. ECHO: No significant change when compared to prior echo Hypoalbuminemia likely contributing to volume overload as well Pacemaker functioning appropriately as per cardiology Appreciate cardiology input Received IV Lasix Metoprolol dose decreased as per cardiology recommendations Monitor I's and O's, daily weight Volume status improved Continue lasix 20mg daily and 20mg lasix in Afternoon PRN Needs follow-up with cardiology upon discharge Plan to discharge to SNF when arranged Sick sinus syndrome H/O A.fib S/P pacemaker Pacemaker interrogated Metoprolol dose decreased to 12.5 mg daily Hold digoxin for now Continue Coumadin Monitor INR:2.1>1.8>1.7>1.9 Now therapeutic at 2.5 Adjust Coumadin dose as needed Perhaps recommend taking Lasix in the morning, and metoprolol several hours later/early afternoon CAD S/P Stent Continue Plavix DM II HbA1C:6.6%, June 2020 Continue insulin therapy Monitor BGs Hold Lantus due to relatively low BGs (Consider adjusting upon discharge as well) We will discontinue Lantus at this point, follow-up further as outpatient Chronic anemia myelodysplastic syndrome Hb at baseline Monitor Recurrent UTIs Chronic methenamine suppression Rx CKD III Monitor renal function Avoid nephrotoxic agents as able Hypothyroidism Continue levothyroxine DVT Px: On Coumadin Code Status Full code Admission and Anticipated Discharge Date Admission Date: September 13, 2020 Subjective Patient seen in follow-up of CHF exacerbation Yesterday patient was orthostatic after working with PT Today notified by nursing staff that patient felt short of breath however remained 98% on room air Patient tells me that she only feels short of breath with exertion and currently denies any shortness of breath Obtain chest x-ray and procalcitonin both unremarkable She tells me that she feels well and is ready to be discharged Denies any chest pain or palpitations No fevers chills, abdominal pain, nausea or vomiting Review of Systems Review of Systems: All systems reviewed & are unremarkable except as noted in HPI & below Constitutional: no fever and no chills Respiratory: no cough Cardiovascular: no chest pain and no palpitations Gastrointestinal: no abdominal pain, no nausea and no vomiting Physical Exam Physical Exam: General Appearance:Moderately built and nourished, no apparent distress, Elderly F Head: normocephalic, Atraumatic Eyes: normal inspection, EOMI Neck: supple, Trachea midline Respiratory/Chest: CTAB, no wheezing, crackles noted Cardiovascular: S1, S2, + no murmur Abdomen/GI:Soft, Non tender, Bowel sounds present Extremities/Musculoskeletal:normal inspection, B/L LE edema improved Neurologic/Psych:AAOX3, grossly no focal neurological deficits, +Hearing impairment Skin: normal color, warm Results & Data Results & Data ([facility]) Vital Signs (Past 12 Hours) Vital Signs Temp Pulse Pulse Resp BP Pulse Ox 09/20/20 07:19 37.0 C 70 18 117/50 L 96 09/20/20 03:32 36.3 C L 65 18 133/63 97 09/19/20 23:47 36.9 C 61 16 126/58 L 98 Laboratory Results 09/20/20 09/20/20 09/20/20 Range/Units 07:17 05:47 05:47 PT 23.5 H (9.0-12.0) Seconds INR 2.5 H (0.9-1.1) Sodium 143 (136-145) mmol/L Potassium 4.3 (3.5-5.1) mmol/L Chloride 111 H (98-107) mmol/L Carbon Dioxide 30 (21-32) mmol/L Anion Gap 2.0 L (3-11) BUN 15 (7-18) mg/dl Creatinine 0.89 (0.6-1.2) mg/dl Est Cr Clr Drug Dosing 53.8 ml/min Est GFR ( Amer) 70.4 ml/min Est GFR (Non-Af Amer) 60.8 ml/min BUN/Creatinine Ratio 16.9 (10-20) Glucose 81 (70-99) mg/dl POC Glucose 85 (70-99) mg/dl Calcium 7.8 L (8.5-10.1) mg/dl Phosphorus 3.2 (2.5-4.9) mg/dl Magnesium 1.9 (1.8-2.4) mg/dl 09/19/20 09/19/20 09/19/20 Range/Units 19:58 15:58 11:01 PT (9.0-12.0) Seconds INR (0.9-1.1) Sodium (136-145) mmol/L Potassium (3.5-5.1) mmol/L Chloride (98-107) mmol/L Carbon Dioxide (21-32) mmol/L Anion Gap (3-11) BUN (7-18) mg/dl Creatinine (0.6-1.2) mg/dl Est Cr Clr Drug Dosing ml/min Est GFR ( Amer) ml/min Est GFR (Non-Af Amer) ml/min BUN/Creatinine Ratio (10-20) Glucose (70-99) mg/dl POC Glucose 138 H 121 H 124 H (70-99) mg/dl Calcium (8.5-10.1) mg/dl Phosphorus (2.5-4.9) mg/dl Magnesium (1.8-2.4) mg/dl Medications Administered Current Inpatient Medications Acetaminophen (Acetaminophen 325 Mg Tab) 650 mg PO Q4H PRN PRN Reason: Pain or Fever Stop: 10/14/20 00:58 Last Admin: 09/15/20 21:49 Dose: 650 mg Documented by: Citalopram Hydrobromide (Citalopram 40 Mg Tab) 40 mg PO [facility] Stop: 10/14/20 08:59 Last Admin: 09/19/20 08:17 Dose: 40 mg Documented by: Clopidogrel Bisulfate (Clopidogrel Bisulfate 75 Mg Tab) [facility] [place] Stop: 10/14/20 08:59 Last Admin: 09/19/20 08:17 Dose: 75 mg Documented by: Dextrose (Dextrose 50% 50 Ml Syringe) 25 - 50 ml IV UD PRN; Protocol PRN Reason: Hypoglycemia Protocol Stop: 10/14/20 00:58 Digoxin (Digoxin 0.125 Mg Tab) 0.125 mg PO MoTuWeThFr@1600 [facility] Stop: 10/14/20 15:59 Last Admin: 09/14/20 17:09 Dose: 0.125 mg Documented by: Famotidine (Famotidine 20 Mg Tab) 20 [facility] [place] Stop: 10/14/20 08:59 Last Admin: 09/19/20 08:17 Dose: 20 mg Documented by: Ferrous Sulfate (Ferrous Sulfate 325 Mg Tab) 325 mg PO BID17 [facility] Stop: 10/14/20 08:59 Last Admin: 09/19/20 17:26 Dose: 325 mg Documented by: Furosemide (Furosemide 20 Mg Tab) 20 mg PO QAM [facility] Stop: 10/19/20 08:59 Last Admin: 09/19/20 08:17 Dose: 20 mg Documented by: Furosemide (Furosemide 20 Mg Tab) 20 mg PO 1700 PRN PRN Reason: Edema Stop: 10/18/20 16:59 Glucagon (Glucagon For Inj 1 Mg Vial) 1 mg SQ UD PRN; Protocol PRN Reason: Hypoglycemia Protocol Stop: 10/14/20 00:58 Glucose (Glucose 10 Tabs/Tube) 4 - 8 tabs PO UD PRN; Protocol PRN Reason: Hypoglycemia Protocol Stop: 10/14/20 00:58 Glucose (Glucose 40% Gel 15 Gm Tube) 15 - 30 gm PO UD PRN; Protocol PRN Reason: Hypoglycemia Protocol Stop: 10/14/20 00:58 Promethazine HCl 12.5 mg/ (Sodium Chloride) 50.5 mls @ 202 mls/hr IV Q6H PRN PRN Reason: Nausea And Vomiting Stop: 10/14/20 00:58 Last Infusion: 09/15/20 17:33 Dose: Infused Documented by: Insulin Aspart (Insulin Aspart 100 Units/Ml 3 Ml Pen) 0 units SC [facility] Stop: 10/14/20 00:58 Last Admin: 09/19/20 21:02 Dose: Not Given Documented by: Insulin Glargine (Insulin Glargine Solostar 100 Units/Ml 3 Ml Pen) 5 [facility] SQ [facility] [place] Stop: 10/17/20 08:59 Last Admin: 09/18/20 08:01 Dose: Not Given Documented by: Lactobacillus Acidoph/Casei/Rhamnos (Advanced Probiotic 1250 Mg Capsule) 2 cap PO DAILY [facility] Stop: 10/14/20 08:59 Last Admin: 09/19/20 08:17 Dose: 2 cap Documented by: Levothyroxine Sodium (Levothyroxine Sodium 50 Mcg Tablet) 50 mcg PO DAILYBB [facility] Stop: 10/14/20 06:29 Last Admin: 09/20/20 06:15 Dose: 50 mcg Documented by: Methenamine Hippurate (Methenamine Hippurate 1 Gm Tab) 1 gm PO HS [facility] Stop: 10/14/20 20:59 Last Admin: 09/19/20 21:02 Dose: 1 gm Documented by: Metoprolol Succinate (Metoprolol Succ 25mg Ext Rel Tab) 12.5 mg PO QAM [facility] Stop: 10/15/20 08:59 Last Admin: 09/19/20 09:13 Dose: Not Given Documented by: Miscellaneous (Carbohydrates For Hypoglycemia ) 15 - 30 gm PO UD PRN PRN Reason: Hypoglycemia Protocol Stop: 10/14/20 00:58 Last Admin: 09/16/20 11:35 Dose: 15 gm Documented by: Multivitamins (Multivitamin Tab) 1 tab PO DAILY [facility] Stop: 10/14/20 08:59 Last Admin: 09/19/20 08:16 Dose: 1 tab Documented by: Nitroglycerin (Nitroglycerin Sl 0.4 Mg/Tab Tab) 0.4 mg SL UD PRN PRN Reason: Chest Pain Stop: 10/14/20 00:58 Potassium Chloride (Potassium Chloride 10 Meq Tabcr) 10 meq PO BID17 [facility] Stop: 10/15/20 08:59 Last Admin: 09/19/20 17:26 Dose: 10 meq Documented by: Tramadol HCl (Tramadol Hcl 50 Mg Tablet) 25 mg PO Q4H PRN PRN Reason: Pain Stop: 10/14/20 00:58 Warfarin Sodium (Warfarin Sod 5 Mg Tab) 5 mg PO DAILY@1600 [facility] Stop: 10/20/20 15:59
[2020-09-20] MEDS: METOPROLOL SUCC 25MG EXT REL TAB PO SCH (08:55)
[2020-09-20] MEDS: FUROSEMIDE 20 MG TAB PO SCH (08:55)
[2020-09-20] MEDS: CLOPIDOGREL BISULFATE 75 MG TAB PO SCH (08:55)
[2020-09-20] MEDS: FAMOTIDINE 20 MG TAB PO SCH (08:55)
[2020-09-20] MEDS: ADVANCED PROBIOTIC 1250 MG CAPSULE PO SCH (08:56)
[2020-09-20] MEDS: CITALOPRAM 40 MG TAB PO SCH (08:56)
[2020-09-20] MEDS: MULTIVITAMIN TAB PO SCH (08:56)
[2020-09-20] MEDS: FERROUS SULFATE 325 MG TAB PO SCH (08:56)
[2020-09-20] MEDS: POTASSIUM CHLORIDE 10 MEQ TABCR PO SCH (08:57)
[2020-09-20] MEDS: INSULIN ASPART 100 UNITS/ML 3 ML PEN SC SCH ×2 (09:03→12:10)
--- NOTE | 2020-09-20 10:20 | XRay Report ---
XR chest 1V portable HISTORY: shortness of breath COMPARISON: Chest 09/13/2020. FINDINGS: No pneumothorax. The cardiac silhouette remains mildly enlarged. There is mild interstitial thickening is likely chronic. No evidence for pulmonary edema. The right lung is clear. Interval imp rovement in the trace left pleural effusion and left base airspace opacities. There is left-sided david l-chamber pacemaker. Postoperative changes again noted within the shoulders. IMPRESSION: Interval resolution of the mild interstitial pulmonary edema. The left basilar densities and trace le ft pleural effusion have also improved. ACT 112: Negative or not required by law. Electronically signed by: Carmine Adan M.D. 09/20/2020 10:19 AM
[2020-09-20] MEDS ORDERED: SODIUM CHLORIDE 0.9% 1000ML 250 ML IV ONE (10:34)
--- NOTE | 2020-09-20 11:25 | Discharge Summary ---
Date of Service September 20, 2020 Admission HPI Per Admitting Provider History obtained from patient, family, and records. Medical history significant for chronic diastolic heart failure (EF 70%, TTE 2019), SSS sp PPM on Coumadin, CAD status post stent, valvular heart disease (mild aortic stenosis, moderate mitral stenosis TTE, 2019), hypertension, hyperlipidemia, pulmonary hypertension, DEEPAK (off CPAP since 2009 after weight loss post gastric bypass as per records), DM 2 insulin requiring, hypothyroidism, chronic anemia (baseline hemoglobin 9- 10), myelodysplastic syndrome as per records, recurrent UTIs on chronic antibiotic suppression. Last confinement June 2020 for septic shock secondary to complicated UTI. Patient discharged to [facility] for rehab. Patient subsequently discharged to [facility] 2 months ago. 2 weeks ago, patient noted increased bilateral leg swelling with blood tinged seepage. Fluid retention and shortness of breath worse with exertion later followed. No chest pain, no cough as per patient. Patient compliant with home diuretics. Unable to administer BP medications and Lasix at halfway in the last week due to low blood pressure as per records. Patient directed to the ER for evaluation. Initial SBP at the ER was 70s. NSS bolus given at the ER. SBP currently 100s. 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, halfway resident Admission Exam Per Admitting Provider GENERAL: uncomfortable, slightly anxious, no respiratory distress SKIN: Pallor, warm HEENT: Pale palpebral conjunctivae, no ptosis, moist buccal mucosa, nasal cannula in place NECK : Supple, no tenderness CHEST : Decreased breath sounds, no tenderness HEART : RRR, systolic murmur over second right intercostal space, diastolic murmur over left sternal border ABDOMEN: Some distention, nontender EXTREMITIES : Bilateral LE swelling with erythematous spots, dressing over left lower leg, minimal tenderness NEUROLOGIC : Coherent, no facial asymmetry, mild hearing impairment, no other gross focality Principal Diagnosis CHF exacerbation, fluid overload Discharge Exam General Appearance:Moderately built and nourished, no apparent distress, Elderly F Head: normocephalic, Atraumatic Eyes: normal inspection, EOMI Neck: supple, Trachea midline Respiratory/Chest: CTAB, no wheezing, crackles noted Cardiovascular: S1, S2, + no murmur Abdomen/GI:Soft, Non tender, Bowel sounds present Extremities/Musculoskeletal:normal inspection, B/L LE edema improved Neurologic/Psych:AAOX3, grossly no focal neurological deficits, +Hearing impairment Skin: normal color, warm Discharge Data Allergies Allergy/AdvReac Type Severity Reaction Status Date / Time adhesive Allergy Unknown ADHESIVE Verified 09/13/20 21:30 TAPE Consultations 09/13/20 22:38 ED Decision to Admit Stat 09/14/20 00:59 Consult Cardiology Routine Hospital Course (1) Decompensated heart failure: Volume overload History of chronic diastolic heart failure H/O Valvular heart disease (mild to moderate aortic stenosis, moderate mitral stenosis ) Pulmonary hypertension CXR:Interval development of mild pulmonary edema and small bilateral pleural effusions with mild left basilar opacity. ECHO: No significant change when compared to prior echo Hypoalbuminemia likely contributing to volume overload as well - recommend improved nutrition, higher protein diet, boost drinks Pacemaker functioning appropriately as per cardiology Appreciate cardiology input Received IV Lasix Metoprolol dose decreased as per cardiology recommendations Monitor I's and O's, daily weight Volume status improved Continue lasix 20mg daily and 20mg lasix in Afternoon PRN Needs follow-up with cardiology upon discharge Plan to discharge to SNF when arranged Sick sinus syndrome H/O A.fib S/P pacemaker Pacemaker interrogated Metoprolol dose decreased to 12.5 mg daily Hold digoxin for now Continue Coumadin Monitor INR:2.1>1.8>1.7>1.9 Now therapeutic at 2.5 Adjust Coumadin dose as needed Perhaps recommend taking Lasix in the morning, and metoprolol several hours later/early afternoon CAD S/P Stent Continue Plavix DM II HbA1C:6.6%, June 2020 Continue insulin therapy Monitor BGs Hold Lantus due to relatively low BGs (Consider adjusting upon discharge as well) We will discontinue Lantus at this point, follow-up further as outpatient Chronic anemia myelodysplastic syndrome Hb at baseline Monitor Recurrent UTIs Chronic methenamine suppression Rx CKD III Monitor renal function Avoid nephrotoxic agents as able Hypothyroidism Continue levothyroxine DVT Px: On Coumadin Code Status Full code Total Time Total Time Spent Total Time Spent (In Minutes): 40 Total Time Includes: Examination of the Patient, Discharge Planning, Medication Reconciliation and Communication With Other Providers Discharge Plan Discharge Items Patient Disposition: Transfer Custodial Fac Reason For Visit: CHF Discharge Diagnosis: CHF exacerbation, fluid overload Activity: Per Instructions section Non-emergency contact: Primary Care Provider and Grain Merchandising Manager Call non-emergency contact if: you have any medication questions and your symptoms worsen Follow-up/Referrals: Liza Dobbs, [Primary Care Provider] - Diet: Carb Consistent or DM2 and Heart Healthy Fluids: 2000ml (8 cups) Addtl Attending Provider Instructions: Follow-up with your family physician within 1 week after leaving nursing facility. You will also need to follow-up with cardiology (heart doctor), you will be contacted about the appointment. Your metoprolol was decreased to 12.5 mg daily. You should stop taking your digoxin. Continue Lasix 20 mg daily and you can also take Lasix as needed if you notice increased weight or edema. You should take it when your weight is 2 to 3 pounds higher overnight or 5 pounds in 2 to 3 days. You can always discuss this with your physician. Consider taking Lasix in the morning and metoprolol several hours later/early afternoon. Your nutrition should also be addressed. Recommend Diet higher in protein, consider drinking boost or some other protein drinks every day. Your blood sugars were on the lower side while in the hospital, and therefore your Lantus was discontinued. Follow-up with your healthcare providers to see if you need insulin. Addtl Judicial Law Clerk Provider Instructions: Call your Primary Care doctor if any of the following symptoms or problems start or get worse: * Shortness of breath or difficulty breathing * Wake up at night short of breath * Chest pain * Cough * Swelling of your hands, feet, or legs * More fatigued or tired with your normal activity * Palpitations - sudden fast heart beats WEIGHT * Weigh yourself every morning after using the bathroom. * Use the same scale. * Wear the same amount of clothing. * Write your weight down on a chart. * Call your Primary Care doctor if you gain more than 2-3 pounds in 1-2 days. MEDICATIONS * Use this discharge instruction sheet for medication instructions. * Take your medications at the time your doctor ordered. * Do not skip a dose of your medicines. * If you miss a dose of medicine, take it as soon as possible, but DO NOT DOUBLE A DOSE. * Read your medicine information when you get home. * Know all of the side effects of your medicine. If in doubt, ask your pharmacist * Call your Primary Care doctor's office if you have any side effects. * Be sure all of your doctors know what medicine and herbs you take (including cold, flu, and herbal medicine). Take the following with you to your follow-up doctor appointments: * Weight Chart * Medication List * List of questions Do not drink excessive alcohol, beer or wine. Pending Studies at Discharge: No Stand-Alone Forms: My [facility] Skilled Items Patient informed of condition?: Yes DNR: No Discharge Level of Care: Skilled Communicable Disease: No Discharge Prognosis: Stable Lines: None Urinary Catheter: No Medications and DC Order Prescriptions: New metoprolol succinate 25 mg Tablet Extended Release 24 Hr 12.5 mg PO QAM Qty: 30 RF: 0 furosemide 20 mg Tablet 20 mg PO 1700 PRN (Reason: edema) Qty: 10 RF: 0 potassium chloride [Klor-Con M10] 10 mEq Tablet,Er Particles/Crystals 10 meq PO BID17 Qty: 14 RF: 0 Continued citalopram 40 mg Tablet 40 mg PO QAM RF: 0 levothyroxine 50 mcg Tablet 50 mcg PO QAM RF: 0 ferrous sulfate 325 mg (65 mg iron) Tablet 325 mg PO BID RF: 0 furosemide 20 mg tablet 20 mg PO QAM RF: 0 cyanocobalamin (vitamin B-12) 1,000 mcg/mL solution 1,000 mcg IM MONTHLY RF: 0 clopidogrel 75 mg tablet 75 mg PO QAM RF: 0 famotidine 20 mg tablet 20 mg PO QAM RF: 0 warfarin 4 mg tablet 4 mg PO 6XWK RF: 0 methenamine hippurate 1 gram Tablet 1 g PO HS RF: 0 Lactobacillus acidoph-L.bulgar [Floranex] 1 million cell Tablet 1 tab PO TIDM RF: 0 multivitamin [Daily-Nori] Tablet 1 tab PO DAILY RF: 0 warfarin 2 mg tablet 2 mg PO .DAILY ON FRIDAYS RF: 0 Discontinued metoprolol succinate 25 mg Tablet Extended Release 24 Hr 37.5 mg PO QAM RF: 0 digoxin 125 mcg (0.125 mg) tablet 125 mcg PO 5XWK RF: 0 Lantus Solostar U-100 Insulin 100 unit/mL (3 mL) insulin pen 8 unit SUBCUT QAM RF: 0 Discharge Orders: Discharge Order (Routine); Ordered 09/20/20 Ordered By: oDnte Fletcher Admission Data Admit Date/Time: 09/13/20 23:11 Attending Provider: Donte Fletcher Admit Provider: Alexey De La Rosa Primary Care Provider: Liza Dobbs Other Providers: Alexey De La Rosa ; Monty Thomas ; Ramon Arevalo ; Luis Pichardo ; Mich Gomez ; Felix Caraballo ; Gamaliel Matthews ; Uzma Carrasco ; Summer Calles ; Daniella Sloan ; Valentino Keyes ; Rita Pruitt at [place] ; José Miguel Coleman.
[2020-09-20] MEDS: ALBUMIN 25% 12.5 GM/50 ML VIAL IV SCH ×2 (12:08→12:48)
[2020-09-20] MEDS ORDERED: WARFARIN SOD 5 MG TAB PO SCH (16:00)
--- NOTE | 2020-10-05 07:35 | Coding Query ---
CODING QUERY To promote full compliance with coding requirements relating to patient care, provider participation is requested in all cases of hazardous waste technician uncertainty. Please assist us with the question(s) below: Coding Question(s): The following query was placed to Dr. Pierce Nick and he has asked for it to be placed to Dr. 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 The ENT Consultation on 09/18 documents, "Hx of tracheostomy: I was asked emergently to go to #11 operating room due to difficult intubation by anesthesia. I visualized the bronchoscopy with anesthesia and noted a 1 cm granuloma at the previous tracheostomy site without obvious subglottic stenosis. The endotracheal tube appears to be hung up from the granuloma" and, "I was called emergently to the #11 operating room when anesthesia had difficulty intubating the patient. He did have previous history of tracheostomy at [place]. I reviewed the fiberoptic bronchoscopy with Dr. Mcbride. The endotracheal tube appears to be hanging up on a moderate sized granuloma at the previous tracheostomy site in the subglottic region. I did not see subglottic stenosis". Due to conflicting documentation regarding the Subglottic Stenosis, please clarify below, in your clinical opinion. 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 However I did not get a good look which would required direct laryngoscopy and rigid bronchoscopy. So I would say subglottic stenosis/scar tissue prevented the endotracheal tube from passing. 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 Physician's Response(s): Thank you Jyoti Paris Principal Diagnosis: "that condition established after study, to be chiefly responsible for occasioning the admission of the patient to the hospital for care." Co-Existing Principal Diagnosis: "when two or more diagnoses equally meet the criteria for principal diagnosis as determined by the circumstances of admission, diagnostic work up, and/or therapy provided, and the Alphabetic Index, Tabular List, or another coding guideline does not provide sequencing direction, any one of the diagnoses may be sequenced first." "When the physician has documented what appears to be a current diagnosis in the body of the record, but has not included the diagnosis in the final diagnostic statement, the physician should be asked whether the diagnosis should be added." (Source Coding [facility] 2 QTR90. p3-4) YAN
== END 2020-09-20 14:15 | DRG 291 ==
LOC: ED 18:32 → SUATTDRO 23:11 → 2E 23:11

== ENCOUNTER 2020-10-24 14:12 | Inpatient (IN) ==
--- NOTE | 2020-10-24 14:41 | Emergency Department Note ---
Impression & Plan Acute flank pain, Abnormal EKG, Pleural effusion, Acute UTI (urinary tract infection) ED Provider Note DiffuseNAME: MARY PATTERSON AGE: 79 SEX: F : 1940 ARRIVES VIA: Ambulance INFORMANT: Patient, ED PROVIDER(S): Nick Marshall DO CHIEF COMPLAINT: Flank pain HPI: The patient is an 79-year-old female who presented to the emergency department by ambulance for an evaluation of flank pain. The patient does have a history of kidney stones in the past. She localizes the pain to the right flank and right kidney area. The patient states that the pain was moderate to severe and acute in onset. She called 911. She received 100 mcg of fentanyl prior to arrival after a call to medic command. The patient states her pain is significantly improved but she still has pain in the right flank as well as the right upper quadrant. She has a history of kidney stones in the past. She states that that did not feel the same. She denies having any chest pain. She does have pain over the lower abdomen as well. She denies having any difficulty breathing. She has had no fever. She denies having any dysuria or frequency. She denies having any hematuria. The patient did have some nausea after receiving the fentanyl. The patient did not see her family doctor for the symptoms. ROS: See above HPI for pertinent positives & negatives. A total of 10 systems reviewed and were otherwise negative. PAST MEDICAL HISTORY: See Below PAST SURGICAL HISTORY: See Below FAMILY HISTORY: See Below SOCIAL HISTORY: See Below HOME MEDICATIONS: See Below ALLERGIES: See Below VITALS: See Below PHYSICAL EXAMINATION: GENERAL: The patient is awake and alert. She does appear somewhat anxious appearing. EYES: The conjunctivae are clear. The pupils are round and reactive. EARS, NOSE, MOUTH AND THROAT: The nose is without any evidence of any deformity. NECK: The neck is nontender and supple. RESPIRATORY: Normal respiratory effort is noted there is no evidence of wheezing rhonchi or rales CARDIOVASCULAR: Regular rate and rhythm noted there no murmurs rubs or gallops normal S1 normal S2. GASTROINTESTINAL: The abdomen is soft and mildly distended. There is tenderness in the right upper quadrant but no guarding rigidity. There is a postoperative site in the midline in the supraumbilical region. Surgical mesh is noted to palpation. BACK: No midline tenderness was appreciated. Right CVA tenderness was noted to percussion. MUSCULOSKELETAL/EXTREMITIES: There is no evidence of gross deformity full range of motion is noted in the hips and shoulders. SKIN: Skin was warm and dry. Pedal edema was noted bilaterally. NEUROLOGIC: Patient is awake alert and oriented x3. MEDICAL DECISION MAKING: The patient is an 79-year-old female who presented to the emergency department for flank pain. The patient had mostly right posterior chest pain. The jade ent's pain was not reproducible. She has a history of kidney stones. The onset of pain was acute so she was felt to be suffering from renal colic. Given her age and comorbidities further laboratory and radiographic studies were obtained. She was found to have significant changes in her EKG compared to previous including T wave versions. The EKG was repeated by the admitting team. I discussed the patient's laboratory and radiographic studies with her. She was treated pain medication. I also discussed her case with the on-call [facility] group. They have agreed to evaluate the patient in the emergency department. She had a CT of the chest ordered because of the abnormal EKG. Triage Nursing notes reviewed. Prior medical records reviewed Vital Signs: reviewed and remarkable for no significant abnormalities Differential diagnosis: Renal colic, UTI, appendicitis, diverticulitis, mesenteric ischemia, aortic pathology, infections, inflammatory bowel disease, PUD, biliary pathology, as well as other pathologies. ER treatment provided: See below Diagnostics interpreted by me: ECG: EKG was obtained in the emergency department. My interpretation is atrial fibrillation at 76 bpm. Right bundle branch block pattern was noted. T wave inversions were noted. This was compared to a tracing from September 132020. A. fib has replaced paced rhythm. Cardiac Monitoring: An order was placed for continuous cardiac monitoring. The monitor shows a rate of 85 bpm with atrial fibrillation rhythm. Laboratory studies: As stated above and show below. Imaging studies: See below Consultation(s): I discussed this case with Anna who is on-call for the [facility] hospitalist group. She will evaluate the patient in the emergency department. Past Med/Surg History Medical History Anemia Aortic root dilatation 4.4 cm on echo 01/2019 Aortic root normal size on 02/2020 ECHO Asthma Atrial fibrillation Bifascicular block CAD (coronary artery disease) "1995 - PTCA and stenting of RCA 07/2011 - atherectomy and stenting RCA 12/2011- AZALIA to the mid LAD 2016-Cobra stent to mid LAD 2017-AZALIA to ostial diagonal Calculus of distal left ureter Closed fracture of left hip February 2020trochanteric nail placed by Ortho Congestive heart failure Depression DM type 2 (diabetes mellitus, type 2) Dyslipidemia GERD (gastroesophageal reflux disease) Hypertension Hypothyroidism HOMERO (iron deficiency anemia) Macular degeneration MDS (myelodysplastic syndrome) Mild aortic stenosis Per 02/19/20 ECHO- ASHLEY 1.84 cm; AV max velocity 2.491 m/s; AV mean PG 13.6 mmHg Mitral stenosis Moderate per 02/2020 ECHO Pacemaker Sinus node dysfunction VRE (vancomycin resistant enterococcus) culture positive Surgical History History of angioplasty History of arthroscopy of knee History of arthroscopy of shoulder History of cholecystectomy History of gastric bypass History of incisional hernia repair History of partial hysterectomy History of tonsillectomy Family History Father Colorectal cancer Sister Lung cancer Diabetes Brother Diabetes Mother Diabetes Social History Smoking Status: Never smoker Second Hand Exposure: No; Hx Alcohol Use: No Hx Substance Use: No Preferred Language: Slovak Communication Ability: Effective Visual Impairment: No Limitations Hearing 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: Normal 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 Beliefs That Will Affect Care: None marital status: / Current Living Situation: Custodial Current Living Situation Comment: [place] resident current occupational status: retired How many Children do You have: 3 Feels Safe at Home: Yes Assistive Devices: Walker Allergies Allergies Allergy/AdvReac Type Severity Reaction Status Date / Time adhesive Allergy Unknown ADHESIVE Verified 10/24/20 15:42 TAPE Home Meds Home Medications Medication Instructions Recorded Confirmed ferrous sulfate 325 mg (65 mg 325 mg PO BID 11/08/18 10/24/20 iron) tablet citalopram 40 mg tablet 40 mg PO QAM 03/13/19 10/24/20 levothyroxine 50 mcg tablet 50 mcg PO QAM 03/13/19 10/24/20 furosemide 20 mg tablet 20 mg PO QAM 10/10/19 10/24/20 cyanocobalamin (vitamin B-12) 1,000 mcg IM MONTHLY 02/18/20 10/24/20 1,000 mcg/mL injection solution clopidogrel 75 mg tablet 75 mg PO QAM 06/21/20 10/24/20 famotidine 20 mg tablet 20 mg PO QAM 06/21/20 10/24/20 warfarin 4 mg tablet 4 mg PO [id number] 06/21/20 10/24/20 Lactobacillus acidoph-L.bulgaricus 1 tab PO TIDM 07/27/20 10/24/20 1 million cell tablet (Floranex) methenamine hippurate 1 gram tablet 1 g PO HS 07/27/20 10/24/20 multivitamin (Daily-Nori) 1 tab PO DAILY 09/13/20 10/24/20 warfarin 2 mg tablet 2 mg PO .DAILY ON Fridays09/13/20 10/24/20 insulin glargine 100 unit/mL (3 8 unit SUBCUT DAILY 10/24/20 10/24/20 mL) subcutaneous pen (Lantus Solostar U-100 Insulin) metoprolol succinate 25 mg 12.5 mg PO DAILY 10/24/20 10/24/20 tablet,extended release 24 hr nut.tx.glucose intolerance,soy 1 ea PO BID 10/24/20 10/24/20 potassium chloride 10 mEq 10 meq PO BID 10/24/20 10/24/20 tablet,extended release(part/cryst) (Klor-Con M) Previous Rx's Medication Instructions Recorded furosemide 20 mg tablet 20 mg PO 1700 PRN #10 tab 09/20/20 Results & Data (ED) Vital Signs Vital Signs - 24 hr 10/24/20 14:22 10/24/20 14:28 10/24/20 16:23 Temperature 36.7 C Temperature Source Oral Pulse Rate 82 Pulse Rate [Finger] 79 Respiratory Rate 18 18 Respiratory Effort / Characteristics Non-Labored Respiratory Depth Normal Blood Pressure 131/78 Blood Pressure [Right Arm] 106/57 L Blood Pressure Mean 95 Blood Pressure Mean [Right Arm] 73 Pulse Oximetry 91 92 99 Oxygen Delivery Method Room Air Room Air Nasal Cannula Oxygen Flow Rate 2 Sepsis Recent Fever Within 48 Hours No Sepsis New/Unexplained Change in Mental Status N/A Sepsis Action Taken by Nursing No Action Required 10/24/20 17:37 08/11/21 18:32 Temperature Temperature Source Pulse Rate Pulse Rate [Finger] 84 85 Respiratory Rate 16 16 Respiratory Effort / Characteristics Respiratory Depth Blood Pressure Blood Pressure [Right Arm] 132/66 140/60 Blood Pressure Mean Blood Pressure Mean [Right Arm] 88 86 Pulse Oximetry 94 94 Oxygen Delivery Method Room Air Room Air Oxygen Flow Rate Sepsis Recent Fever Within 48 Hours Sepsis New/Unexplained Change in Mental Status Sepsis Action Taken by Custodial Medications Current Medication List: was personally reviewed by me Laboratory Data Attestation: I reviewed the patient's lab results. Result diagrams: 10/24/20 15:11 10/24/20 16:20 Lab Results 10/24/20 10/24/20 10/24/20 Range/Units 15:11 15: 15:11 WBC 7.34 (4.8-10.8) K/uL RBC 3.73 L (4.2-5.4) M/uL Hgb 11.5 L (12.0-16.0) g/dL Hct 35.7 L (37-47) % MCV 95.7 (80-100) fL MCH 30.8 (25-34) pg MCHC 32.2 (32-36) g/dL RDW Std Deviation 48.8 H (36.4-46.3) fL RDW Coeff of Gaston 14.1 (11.5-14.5) % Plt Count 301 (130-400) K/uL MPV 10.0 (7.4-10.4) fL Immature Gran % (Auto) 0.1 % Neut % (Auto) 87.3 % Lymph % (Auto) 6.4 % [place] % (Auto) 5.7 % Eos % (Auto) 0.4 % Baso % (Auto) 0.1 % Neut # (Auto) 6.40 (1.4-6.5) K/uL Lymph # (Auto) 0.47 L (1.2-3.4) K/uL [place] # (Auto) 0.42 (0.11-0.59) K/uL Eos # (Auto) 0.03 (0-0.5) K/uL Baso # (Auto) 0.01 (0-0.2) K/uL Immature Gran # (Auto) 0.01 (0.00-0.02) K/uL PT 11.8 (9.0-12.0) Seconds INR 1.2 H (0.9-1.1) APTT 25.2 (21.0-31.0) Seconds PTT Ratio 1.0 Sodium 139 (136-145) mmol/L Potassium (3.5-5.1) mmol/L Chloride 108 H (98-107) mmol/L Carbon Dioxide 26 (21-32) mmol/L Anion Gap 5.0 (3-11) BUN 21 H (7-18) mg/dl Creatinine 0.98 (0.6-1.2) mg/dl Est Cr Clr Drug Dosing 45.4 ml/min Est GFR ( Amer) 62.7 ml/min Est GFR (Non-Af Amer) 54.1 ml/min BUN/Creatinine Ratio 21.3 H (10-20) Glucose 162 H (70-99) mg/dl Calcium 8.4 L (8.5-10.1) mg/dl Total Bilirubin 0.4 (0.2-1) mg/dl AST (15-37) U/L ALT 18 (12-78) U/L Alkaline Phosphatase 95 (45-117) U/L Troponin I < 0.015 (0-0.045) ng/ml NT-Pro-B Natriuret Pep (0-1800) pg/ml Total Protein 6.8 (6.4-8.2) gm/dl Albumin 2.9 L (3.4-5.0) gm/dl Globulin 3.9 (2.5-4.0) gm/dl Albumin/Globulin Ratio 0.7 L (0.9-2) Lipase 57 L (73-393) U/L TSH (0.300-4.500) uIu/ml Urine Color Urine Appearance (Clear) Urine pH (4.5-7.5) Ur Specific [place] (1.000-1.030) Urine Protein (Negative) Urine Glucose (UA) (Negative) Urine Ketones (Negative) Urine Blood (Negative) Urine Nitrite (Negative) Urine Bilirubin (Negative) Urine Urobilinogen (Negative) Ur Leukocyte Esterase (Negative) Urine WBC (Auto) (0-5) /hpf Urine RBC (Auto) (0-4) /hpf U Hyaline Cast (Auto) (0-5) /lpf U Epithel Cells (Auto) (0-5) /lpf Urine Bacteria (Auto) (Negative) COVID-19 Eval Order SARS-CoV-2 (PCR) (Negative) 10/24/20 10/24/20 10/24/20 Range/Units 16:10 16:10 16:20 WBC (4.8-10.8) K/uL RBC (4.2-5.4) M/uL Hgb (12.0-16.0) g/dL Hct (37-47) % MCV (80-100) fL MCH (25-34) pg MCHC (32-36) g/dL RDW Std Deviation (36.4-46.3) fL RDW Coeff of Gaston (11.5-14.5) % Plt Count (130-400) K/uL MPV (7.4-10.4) fL Immature Gran % (Auto) % Neut % (Auto) % Lymph % (Auto) % [place] % (Auto) % Eos % (Auto) % Baso % (Auto) % Neut # (Auto) (1.4-6.5) K/uL Lymph # (Auto) (1.2-3.4) K/uL [place] # (Auto) (0.11-0.59) K/uL Eos # (Auto) (0-0.5) K/uL Baso # (Auto) (0-0.2) K/uL Immature Gran # (Auto) (0.00-0.02) K/uL PT (9.0-12.0) Seconds INR (0.9-1.1) APTT (21.0-31.0) Seconds PTT Ratio Sodium (136-145) mmol/L Potassium 4.3 (3.5-5.1) mmol/L Chloride (98-107) mmol/L Carbon Dioxide (21-32) mmol/L Anion Gap (3-11) BUN (7-18) mg/dl Creatinine (0.6-1.2) mg/dl Est Cr Clr Drug Dosing ml/min Est GFR ( Amer) ml/min Est GFR (Non-Af Amer) ml/min BUN/Creatinine Ratio (10-20) Glucose (70-99) mg/dl Calcium (8.5-10.1) mg/dl Total Bilirubin (0.2-1) mg/dl AST 16 (15-37) U/L ALT (12-78) U/L Alkaline Phosphatase (45-117) U/L Troponin I (0-0.045) ng/ml NT-Pro-B Natriuret Pep 8985 H (0-1800) pg/ml Total Protein (6.4-8.2) gm/dl Albumin (3.4-5.0) gm/dl Globulin (2.5-4.0) gm/dl Albumin/Globulin Ratio (0.9-2) Lipase (73-393) U/L TSH 3.250 (0.300-4.500) uIu/ml Urine Color Urine Appearance (Clear) Urine pH (4.5-7.5) Ur Specific [place] (1.000-1.030) Urine Protein (Negative) Urine Glucose (UA) (Negative) Urine Ketones (Negative) Urine Blood (Negative) Urine Nitrite (Negative) Urine Bilirubin (Negative) Urine Urobilinogen (Negative) Ur Leukocyte Esterase (Negative) Urine WBC (Auto) (0-5) /hpf Urine RBC (Auto) (0-4) /hpf U Hyaline Cast (Auto) (0-5) /lpf U Epithel Cells (Auto) (0-5) /lpf Urine Bacteria (Auto) (Negative) COVID-19 Eval Order Covid19 at [facility] SARS-CoV-2 (PCR) NEGATIVE (Negative) 10/24/20 Range/Units 19:20 WBC (4.8-10.8) K/uL RBC (4.2-5.4) M/uL Hgb (12.0-16.0) g/dL Hct (37-47) % MCV (80-100) fL MCH (25-34) pg MCHC (32-36) g/dL RDW Std Deviation (36.4-46.3) fL RDW Coeff of Gaston (11.5-14.5) % Plt Count (130-400) K/uL MPV (7.4-10.4) fL Immature Gran % (Auto) % Neut % (Auto) % Lymph % (Auto) % [place] % (Auto) % Eos % (Auto) % Baso % (Auto) % Neut # (Auto) (1.4-6.5) K/uL Lymph # (Auto) (1.2-3.4) K/uL [place] # (Auto) (0.11-0.59) K/uL Eos # (Auto) (0-0.5) K/uL Baso # (Auto) (0-0.2) K/uL Immature Gran # (Auto) (0.00-0.02) K/uL PT (9.0-12.0) Seconds INR (0.9-1.1) APTT (21.0-31.0) Seconds PTT Ratio Sodium (136-145) mmol/L Potassium (3.5-5.1) mmol/L Chloride (98-107) mmol/L Carbon Dioxide (21-32) mmol/L Anion Gap (3-11) BUN (7-18) mg/dl Creatinine (0.6-1.2) mg/dl Est Cr Clr Drug Dosing ml/min Est GFR ( Amer) ml/min Est GFR (Non-Af Amer) ml/min BUN/Creatinine Ratio (10-20) Glucose (70-99) mg/dl Calcium (8.5-10.1) mg/dl Total Bilirubin (0.2-1) mg/dl AST (15-37) U/L ALT (12-78) U/L Alkaline Phosphatase (45-117) U/L Troponin I (0-0.045) ng/ml NT-Pro-B Natriuret Pep (0-1800) pg/ml Total Protein (6.4-8.2) gm/dl Albumin (3.4-5.0) gm/dl Globulin (2.5-4.0) gm/dl Albumin/Globulin Ratio (0.9-2) Lipase (73-393) U/L TSH (0.300-4.500) uIu/ml Urine Color Yellow Urine Appearance Clear (Clear) Urine pH 5.0 (4.5-7.5) Ur Specific [place] 1.032 H (1.000-1.030) Urine Protein Negative (Negative) Urine Glucose (UA) Negative (Negative) Urine Ketones Negative (Negative) Urine Blood Trace H (Negative) Urine Nitrite Positive A (Negative) Urine Bilirubin Negative (Negative) Urine Urobilinogen Negative (Negative) Ur Leukocyte Esterase 2+ H (Negative) Urine WBC (Auto) >30 H (0-5) /hpf Urine RBC (Auto) 0-4 (0-4) /hpf U Hyaline Cast (Auto) 1-5 (0-5) /lpf U Epithel Cells (Auto) 5-10 H (0-5) /lpf Urine Bacteria (Auto) 4+ H (Negative) COVID-19 Eval Order SARS-CoV-2 (PCR) (Negative) Administered Medications Heparin Sodium/Dextrose (Heparin Sodium/Dextrose) 25,000 units in 500 mls @ 24 mls/hr IV .[id number] [facility]; Protocol Stop: 11/23/20 17:59 Last Admin: 10/24/20 19:19 Dose: 1,200 units/hr, 24 mls/hr Documented by: [id number] Cosigned by: [id number] Discontinued Medications Furosemide (Furosemide 40 Mg/4 Ml Vial) 20 mg IV NOW STA Stop: 10/24/20 18:03 Last Admin: 10/24/20 19:13 Dose: 20 mg Documented by: [id number] Heparin Sodium/Dextrose (Heparin Iv Adult Wt-Based Standard *No* Bolus Protocol) 1 ea IV ONE STA; Protocol Stop: 10/24/20 18:24 Last Admin: 10/24/20 19:15 Dose: 1 ea Documented by: [id number] Heparin Sodium/Dextrose (Heparin 52443 Unit/500 Ml D5w) Confirm Administered Dose 25,000 units IV .STK-MED ONE Stop: 10/24/20 19:09 Last Admin: 10/24/20 19:26 Dose: Not Given Documented by: [id number] Ioversol (Optiray 320 125ml) 118 ml IV ONCE ONE Stop: 10/24/20 18:23 Last Admin: 10/24/20 18:23 Dose: 118 ml Documented by: [id number] Warfarin Sodium (Warfarin Sod 5 Mg Tab) 5 mg PO NOW STA Stop: 10/24/20 18:24 Last Admin: 10/24/20 19:13 Dose: 5 mg Documented by: [id number] Imaging Data Radiologist's Impression: Abdomen/Pelvis CT 10/24/20 14:[address] WITHOUT CONTRAST CT DOSE: 894.94 mGycm HISTORY: Acute right-sided flank pain right flank pain TECHNIQUE: Multiaxial CT images of the abdomen and pelvis were performed without contrast. A dose lowering technique was utilized adhering to the principles of ALARA. COMPARISON STUDY: CT abdomen and pelvis 06/21/2020 FINDINGS: Moderate layering pleural effusions with dependent bibasilar consolidation. Cardiomegaly with coronary artery and mitral annular calcifications. Partially imaged pacer leads. No pneumatosis or pneumoperitoneum. Calcified granuloma of the spleen. Extensive dense vascular calcifications throughout the abdomen and pelvis. Severely atrophic pancreas. Cholecystectomy. Unchanged mild extrahepatic biliary ductal prominence. Unremarkable adrenal glands. The liver is within normal limits. Bilateral renal vascular calcifications. Punctate calcification of the inferior pole right kidney appears to be associated with a probable 8 mm cyst. No definite renal or ureteral calculi identified. No hydronephrosis. Study is degraded by respiratory motion artifact and streak artifact from left hip total joint arthroplasty. Unremarkable urinary bladder. Uterus appears surgically absent. No adnexal mass lesions. No abdominal aortic aneurysm or adenopathy. Moderate sized hilar hernia. Postoperative changes of the stomach. No bowel obstruction or bowel wall thickening. Partial distention of the rectum. The visualized appendix is noninflamed. Mild colonic diverticulosis. There are numerous stool-filled loops of small bowel within the lower abdomen and pelvis. Diastases recti. Mild generalized body wall edema. Demineralized appearance the bones with degenerative changes of the spine, pelvis and hips. Intratrochanteric nail with medullary misael of the left femur fixating a chronic intertrochanteric fracture. IMPRESSION: 1. No renal or ureteral calculi or obstructive uropathy. 2. Moderate layering pleural effusions with dependent bibasilar compressive atelectasis. 3. No bowel obstruction or bowel wall thickening. 4. Additional findings as above. ACT 112: Negative or not required by law. The above report was generated using voice recognition software. It may contain grammatical, syntax or spelling errors. Electronically signed by: Luis Nova M.D. 10/24/2020 3:44 PM Chest X-Ray 10/24/20 14:22 XR chest 1V portable HISTORY: Right-sided chest pain. COMPARISON: Chest 09/20/2020. FINDINGS: No pneumothorax. Small bilateral pleural effusions. The cardiac silhouette remains mildly enlarged. There are mitral annulus calcifications and left-sided dual-chamber pacemaker. Diffuse interstitial/vascular thickening and perihilar hazy densities have progressed. This consistent with mild pulmonary edema. IMPRESSION: Interval development of mild interstitial pulmonary edema and small bilateral pleural effusions. ACT 112: Negative or not required by law. Electronically signed by: Carmine Adan M.D. 10/24/2020 3:43 PM Chest CTA 10/24/20 17:08 CT ANGIOGRAM OF THE CHEST CLINICAL HISTORY: Dyspnea. COMPARISON STUDY: Chest x-ray dated 112. Chest CT dated 10/12/2019 TECHNIQUE: Following the IV administration of 118 cc of Optiray 320, CT angiogram of the chest was performed from the upper abdomen to the thoracic inlet utilizing the pulmonary embolus protocol. Images are reviewed in the axial, sagittal, and coronal planes. 3-D MIPS images are created and assessed. IV contrast was administered without complication. A dose lowering technique was utilized adhering to the principles of ALARA. The examination is degraded by motion artifact, and by streak artifact from the arms which could not be elevated above the chest. CT DOSE: 477.89 mGycm FINDINGS: Thyroid: Imaged portions of the thyroid gland are normal in size and attenuation. An 11 mm low-attenuation nodule is incidentally noted in the left lobe and unchanged from previous. Thoracic aorta: There is atherosclerotic calcification of the thoracic aorta. There is mild aneurysmal dilatation of the ascending thoracic aorta which measures up to 4.1 cm. The remainder of the thoracic aorta is normal in caliber, and the arch demonstrates standard 3-vessel anatomy. No dissection is seen. Pulmonary vasculature: The pulmonary trunk is normal in caliber. There are no filling defects identified in main, lobar, or segmental pulmonary branches to suggest pulmonary embolus. Evaluation of the peripheral branches is degraded by motion artifact. Heart: The heart is normal in size and without pericardial effusion. A 2-lead cardiac pacemaker is seen in the left chest wall. The coronary arteries and mitral annulus are densely calcified. Lungs and pleural spaces: Evaluation of the lung parenchyma is modestly degraded by motion artifact. There are small to moderate pleural effusions with dependent consolidation. The trachea and central airways are clear. Mild intralobular septal thickening suggests congestive change. Mediastinum: There is no mediastinal lymphadenopathy. Esophagus: Esophagus is patulous and distended, and filled with fluid to the level of the thoracic inlet. Dominga: Clear. Axillae: There is no axillary lymphadenopathy. Upper abdomen: Wall thickening is suggested at the gastroesophageal junction, and postoperative change is noted in the stomach. 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 Partially visualized upper abdominal viscera is otherwise grossly unremarkable. Skeletal structures: The skeletal structures are osteopenic. Degenerative change and mild hyperkyphosis is noted in the thoracic spine. Arthritic change is seen in the shoulders, with evidence of previous surgery seen bilaterally. No lytic or blastic bony lesions are seen. IMPRESSION: 1. Streak and motion compromised examination. 2. There is no evidence of pulmonary embolus in the main, lobar, or segmental pulmonary arteries. 3. Cardiomegaly and cardiac pacemaker. Mild intralobular septal thickening could be seen with acute versus chronic congestive failure and clinical correlation will be required. 4. There are small to moderate pleural effusions with dependent consolidation. This likely represents atelectasis. Correlate clinically for evidence of superimposed pneumonia. 5. There is mild aneurysmal dilatation of the ascending thoracic aorta which measures up to 4.1 cm in diameter. 6. The esophagus is distended and patulous, and filled with fluid to the level of the thoracic inlet. Note that this may place the patient at risk for aspiration. 7. Circumferential wall thickening is noted at the gastroesophageal junction. Correlate clinically for evidence of esophagitis. This could be further assessed with endoscopy if clinically warranted to assess for obstructing lesion. 8. Additional findings as above. ACT 112: Negative or not required by law. Electronically signed by: Luis Fernando Murdock M.D. 10/24/2020 7:37 PM Discharge Plan Visit Data Chief Complaint: Abdominal Pain Stated Complaint: SIDE PAIN ED Provider: Nick Marshall Discharge Problem: Acute flank pain, Abnormal EKG, Pleural effusion, Acute UTI (urinary tract infection) Patient Disposition: Being Evaluated by Hospitalist Condition: Good Forms Stand Alone Forms: [facility] [email or web address] Prescriptions Prescriptions: No Action citalopram 40 mg Tablet 40 mg PO QAM RF: 0 levothyroxine 50 mcg Tablet 50 mcg PO QAM RF: 0 ferrous sulfate 325 mg (65 mg iron) Tablet 325 mg PO BID RF: 0 furosemide 20 mg tablet 20 mg PO QAM RF: 0 cyanocobalamin (vitamin B-12) 1,000 mcg/mL solution 1,000 mcg IM MONTHLY RF: 0 clopidogrel 75 mg tablet 75 mg PO QAM RF: 0 famotidine 20 mg tablet 20 mg PO QAM RF: 0 warfarin 4 mg tablet 4 mg PO [id number] RF: 0 methenamine hippurate 1 gram Tablet 1 g PO HS RF: 0 Lactobacillus acidoph-L.bulgar [Floranex] 1 million cell Tablet 1 tab PO TIDM RF: 0 multivitamin [Daily-Nori] Tablet 1 tab PO DAILY RF: 0 warfarin 2 mg tablet 2 mg PO .DAILY ON FRIDAYS RF: 0 furosemide 20 mg Tablet 20 mg PO 1700 PRN (Reason: edema) Qty: 10 RF: 0 Boost Diabetic Liquid 1 ea PO BID RF: 0 Lantus Solostar U-100 Insulin 100 unit/mL (3 mL) insulin pen 8 unit SUBCUT DAILY RF: 0 metoprolol succinate 25 mg tablet extended release 24 hr 12.5 mg PO DAILY RF: 0 potassium chloride [Klor-Con M10] 10 mEq tablet,ER particles/crystals 10 meq PO BID RF: 0 Referrals Referrals: Liza Dobbs, [Primary Care Provider] -
[2020-10-24 15:25] LABS: Basophils # (auto) 0.01 K/uL (0-0.2); Basophils % (auto) 0.1 %; Eosinophils # (auto) 0.03 K/uL (0-0.5); Eosinophils % (auto) 0.4 %; Hematocrit (blood only) 35.7 % (37-47); Hemoglobin 11.5 g/dL (12.0-16.0); Immature Granulocytes # (auto) 0.01 K/uL (0.00-0.02); Immature Granulocytes % (auto) 0.1 %; Lymphocytes # (auto) 0.47 K/uL (1.2-3.4); Lymphocytes % (auto) 6.4 %; Mean Corpuscular Hemoglobin 30.8 pg (25-34); Mean Corpuscular Hgb Conc 32.2 g/dL (32-36); Mean Corpuscular Volume 95.7 fL (80-100); Monocytes # (auto) 0.42 K/uL (0.11-0.59); Monocytes % (auto) 5.7 %; Neutrophils % (auto) 87.3 %; Platelet Count 301 K/uL (130-400); RDW Coefficient of Variation 14.1 % (11.5-14.5); RDW Standard Deviation 48.8 fL (36.4-46.3); Red Blood Count 3.73 M/uL (4.2-5.4); White Blood Count 7.34 K/uL (4.8-10.8)
[2020-10-24 15:39] LABS: INR 1.2 (0.9-1.1); Partial Thromboplastin Time 25.2 Seconds (21.0-31.0); Prothrombin Time 11.8 Seconds (9.0-12.0)
--- NOTE | 2020-10-24 15:44 | XRay Report ---
XR chest 1V portable HISTORY: Right-sided chest pain. COMPARISON: Chest 09/20/2020. FINDINGS: No pneumothorax. Small bilateral pleural effusions. The cardiac silhouette remains mildly e nlarged. There are mitral annulus calcifications and left-sided dual-chamber pacemaker. Diffuse inter stitial/vascular thickening and perihilar hazy densities have progressed. This consistent with mild p ulmonary edema. IMPRESSION: Interval development of mild interstitial pulmonary edema and small bilateral pleural effusions. ACT 112: Negative or not required by law. Electronically signed by: Carmine Adan M.D. 10/24/2020 3:43 PM
[2020-10-24 15:46] LABS: Troponin I < 0.015 ng/ml (0-0.045)
--- NOTE | 2020-10-24 15:46 | CT Scan Report ---
ABDOMEN AND PELVIS CT WITHOUT CONTRAST CT DOSE: 894.94 mGycm HISTORY: Acute right-sided flank pain right flank pain TECHNIQUE: Multiaxial CT images of the abdomen and pelvis were performed without contrast. A dose lo wering technique was utilized adhering to the principles of ALARA. COMPARISON STUDY: CT abdomen and pelvis 06/21/2020 FINDINGS: Moderate layering pleural effusions with dependent bibasilar consolidation. Cardiomegaly with coronar y artery and mitral annular calcifications. Partially imaged pacer leads. No pneumatosis or pneumoper itoneum. Calcified granuloma of the spleen. Extensive dense vascular calcifications throughout the abdomen and pelvis. Severely atrophic pancreas. Cholecystectomy. Unchanged mild extrahepatic biliary ductal prom inence. Unremarkable adrenal glands. The liver is within normal limits. Bilateral renal vascular calcifications. Punctate calcification of the inferior pole right kidney chester ears to be associated with a probable 8 mm cyst. No definite renal or ureteral calculi identified. No hydronephrosis. Study is degraded by respiratory motion artifact and streak artifact from left hip t otal joint arthroplasty. Unremarkable urinary bladder. Uterus appears surgically absent. No adnexal m ass lesions. No abdominal aortic aneurysm or adenopathy. Moderate sized hilar hernia. Postoperative changes of the stomach. No bowel obstruction or bowel wall thickening. Partial distention of the rectum. The visualized appendix is noninflamed. Mild colonic d iverticulosis. There are numerous stool-filled loops of small bowel within the lower abdomen and pelv is. Diastases recti. Mild generalized body wall edema. Demineralized appearance the bones with degene rative changes of the spine, pelvis and hips. Intratrochanteric nail with medullary misael of the left f emur fixating a chronic intertrochanteric fracture. IMPRESSION: 1. No renal or ureteral calculi or obstructive uropathy. 2. Moderate layering pleural effusions with dependent bibasilar compressive atelectasis. 3. No bowel obstruction or bowel wall thickening. 4. Additional findings as above. ACT 112: Negative or not required by law. The above report was generated using voice recognition software. It may contain grammatical, syntax o r spelling errors. Electronically signed by: Luis Nova M.D. 10/24/2020 3:44 PM
[2020-10-24 15:48] LABS: Alanine Aminotransferase 18 U/L (12-78); Albumin Globulin Ratio 0.7 (0.9-2); Albumin Level 2.9 gm/dl (3.4-5.0); Alkaline Phosphatase 95 U/L (45-117); BUN Creatinine Ratio 21.3 (10-20); Bilirubin,Total 0.4 mg/dl (0.2-1); Blood Urea Nitrogen 21 mg/dl (7-18); Calcium 8.4 mg/dl (8.5-10.1); Carbon Dioxide 26 mmol/L (21-32); Chloride 108 mmol/L (98-107); Creatinine Clr Calc Pharmacy 45.4 ml/min; Est GFR (African American) 62.7 ml/min; Est GFR (Non-African American) 54.1 ml/min; Globulin 3.9 gm/dl (2.5-4.0); Glucose 162 mg/dl (70-99); Lipase 57 U/L (73-393); Sodium 139 mmol/L (136-145); Total Protein 6.8 gm/dl (6.4-8.2)
[2020-10-24 16:53] LABS: Potassium 4.3 mmol/L (3.5-5.1)
[2020-10-24 17:41] LABS: Thyroid Stimulating Hormone 3.25 uIu/ml (0.300-4.500)
--- NOTE | 2020-10-24 17:58 | History & Physical Report ---
Date of Service October 24, 2020 Assessment & Plan (1) Chest pain: (2) Acute on chronic heart failure with preserved ejection fraction (HFpEF): (3) Valvular heart disease: (4) SSS (sick sinus syndrome): (5) Atrial fibrillation: (6) CAD (coronary artery disease): (7) DM type 2 (diabetes mellitus, type 2): Plan: This is a 79-year-old female who has significant past medical history of CAD, chronic HFpEF, persistent A. fib anticoagulated on warfarin, T2DM, HTN, HLD, SSS status post PPM, hypothyroidism, valvular heart disease with mild aortic stenosis and moderate mitral stenosis, MDS who presents to ED from [facility] secondary to acute onset right-sided flank pain prior to arrival. Chest Pain/R Flank Pain Known CAD Pt overall is a poor historian therefore difficult to delineate history In setting of acute chest pain she does have anterolateral T wave inversions with a negative troponin will monitor overnight to rule out ACS Placed on IV heparin secondary to subtherapeutic INR in setting of permanent atrial fibrillation Obtain CTA chest rule out PE cycle trops, repeat ecg recent echo 09/2020 EF 65 to 70%, mild aortic valve stenosis, moderate mitral valve stenosis, LA severely dilated, RVSP 40 to 50 mmHg Chest x-ray concerning for removal loaded failure, elevated proBNP 8900 -give one dose IV Lasix 20 mg this evening -monitor response On plavix, metoprolol Acute on chronic heart failure with preserved ejection fraction valvular heart disease Overall patient appears euvolemic; however evidence of pulmonary edema on chest x-ray and elevated proBNP Give Lasix 20 mg IV x1 this evening, monitor response strict I and O, place larkin cath heart healthy, low na diet low threshold to involve cardiology - during last hospitalization dig d/c and and metoprolol reduced to 12.5mg Atrial Fib -permanent INR subtherapeutic, placed on IV heparin Give 5 mg warfarin orally x1 now and tomorrow 10/25(home regimen 2 mg on Thursday, 4 mg all other days) Reassess need tomorrow for further dosing of warfarin Monitor INR Rate controlled metoprolol SSS s/p PPM interrogate pacer T2DM last a1c 6.6 06/22/20 a1c in a.m lantus/novolog per protocol CKD-3a bun/cr stable 21/0.98 monitor closely Hypoalbuminemia consult dietitian, possibly contributing to volume overload Anemia monitor cbc, h/h stable likely chronic, on b12 and iron supplementation Dispo: PCU PCP: Dilia FULL CODE Pt was seen and examined in collaboration with Dr. Brown, please see addendum History of Present Illness Chief Complaint: Right-sided flank pain and right-sided chest pain x1 day. Primary Care Provider: Liza Dobbs, DO This is a 79-year-old female who has significant past medical history of CAD, chronic HFpEF, persistent A. fib anticoagulated on warfarin, T2DM, HTN, HLD, SSS status post PPM, hypothyroidism, valvular heart disease with mild aortic stenosis and moderate mitral stenosis, MDS who presents to ED from [facility] secondary to acute onset right-sided flank pain. Patient is a very poor historian also received IV narcotic which could be contributing to. History mostly obtained from ED provider. Initially upon arrival patient complained of pain to the right flank. A call was placed to medical command for further advice and 100 mcg of fentanyl was administered. Upon my evaluation she cannot recall details regarding her right flank pain, but she does recall that she had it. Of significance she does have prior history of kidney stone and urosepsis in June 2020. Currently she is complaining of right-sided chest pain that is nonradiating, described as dull, rated as a 3 out of 10, associated shortness of breath, denies pain with inspiration, lightheadedness, dizziness, diaphoresis, nausea or vomiting. She further denies any recent illness, fever, chills, sweats, cough, hemoptysis, abdominal pain, change in bowel or urinary habits. Prior to today she was at her baseline and ambulating with a walker. Of significance she did have recent hospitalization secondary to acute decompensation of CHF in setting of viral heart disease and hypoalbuminemia. During hospitalization she was treated with IV diuresis and her metoprolol was decreased to 12.5 mg daily. She states her appetite is otherwise been well. T hey have been weighing her daily and she states her weight is down to 165 pounds. "At one point was 300 pounds." In ED patient made hemodynamically stable and oxygen saturations were in the low 90s. Lab work notable for H&H 11.5 and 35.7, BUN 21, creatinine 0.98, troponin WNL, proBNP 8985, albumin 2.9. Chest x-ray consistent with mild pulmonary edema. CT abdomen pelvis negative for acute pathology but did reveal layering moderate pleural effusions. Her EKG did reveal atrial fibrillation with anterior lateral T wave inversions. Allergies Allergy/AdvReac Type Severity Reaction Status Date / Time adhesive Allergy Unknown ADHESIVE Verified 10/24/20 15:42 TAPE Home Medications Medication Instructions Recorded Confirmed Type ferrous sulfate 325 mg (65 mg 325 mg PO BID 11/08/18 10/24/20 History iron) tablet citalopram 40 mg tablet 40 mg PO QAM 03/13/19 10/24/20 History levothyroxine 50 mcg tablet 50 mcg PO QAM 03/13/19 10/24/20 History furosemide 20 mg tablet 20 mg PO QAM 10/10/19 10/24/20 History cyanocobalamin (vitamin B-12) 1,000 mcg IM MONTHLY 02/18/20 10/24/20 History 1,000 mcg/mL injection solution clopidogrel 75 mg tablet 75 mg PO QAM 06/21/20 10/24/20 History famotidine 20 mg tablet 20 mg PO QAM 06/21/20 10/24/20 History warfarin 4 mg tablet 4 mg PO 6XWK 06/21/20 10/24/20 History Lactobacillus acidoph-L.bulgaricus 1 tab PO TIDM 07/27/20 10/24/20 History 1 million cell tablet (Floranex) methenamine hippurate 1 gram tablet 1 g PO HS 07/27/20 10/24/20 History multivitamin (Daily-Nori) 1 tab PO DAILY 09/13/20 10/24/20 History warfarin 2 mg tablet 2 mg PO .DAILY ON Fridays09/13/20 10/24/20 History furosemide 20 mg tablet 20 mg PO 1700 PRN #10 tab 09/20/20 10/24/20 Rx insulin glargine 100 unit/mL (3 8 unit SUBCUT DAILY 10/24/20 10/24/20 History mL) subcutaneous pen (Lantus Solostar U-100 Insulin) metoprolol succinate 25 mg 12.5 mg PO DAILY 10/24/20 10/24/20 History tablet,extended release 24 hr nut.tx.glucose intolerance,soy 1 ea PO BID 10/24/20 10/24/20 History potassium chloride 10 mEq 10 meq PO BID 10/24/20 10/24/20 History tablet,extended release(part/cryst) (Kerrie Guido) Past Med/Surg History Medical History Anemia Aortic root dilatation 4.4 cm on echo 01/2019 Aortic root normal size on 02/2020 ECHO Asthma Atrial fibrillation Bifascicular block CAD (coronary artery disease) "1995 - PTCA and stenting of RCA 07/2011 - atherectomy and stenting RCA 12/2011- AZALIA to the mid LAD 2016-Cobra stent to mid LAD 2017-AZALIA to ostial diagonal Calculus of distal left ureter Closed fracture of left hip February 2020trochanteric nail placed by Ortho Congestive heart failure Depression DM type 2 (diabetes mellitus, type 2) Dyslipidemia GERD (gastroesophageal reflux disease) Hypertension Hypothyroidism HOMERO (iron deficiency anemia) Macular degeneration MDS (myelodysplastic syndrome) Mild aortic stenosis Per 02/19/20 ECHO- ASHLEY 1.84 cm; AV max velocity 2.491 m/s; AV mean PG 13.6 mmHg Mitral stenosis Moderate per 02/2020 ECHO Pacemaker Sinus node dysfunction VRE (vancomycin resistant enterococcus) culture positive Surgical History History of angioplasty History of arthroscopy of knee History of arthroscopy of shoulder History of cholecystectomy History of gastric bypass History of incisional hernia repair History of partial hysterectomy History of tonsillectomy Family History Father Colorectal cancer Sister Lung cancer Diabetes Brother Diabetes Mother Diabetes Social History Smoking Status: Never smoker Second Hand Exposure: No; Hx Alcohol Use: No Hx Substance Use: No Preferred Language: Swiss Communication Ability: Effective Visual Impairment: No Limitations Hearing Ability: Normal Acid Loader Required: No Beliefs That Will Affect Care: None marital status: / Current Living Situation: Longterm Current Living Situation Comment: [place] resident current occupational status: retired How many Children do You have: 3 Feels Safe at Home: Yes Assistive Devices: Walker Review of Systems Review of Systems: All systems reviewed & are unremarkable except as noted in HPI & below and Unobtainable due to cognitive status Physical Exam Physical Exam: Constitutional: Alert, female, alert and answers questions, alert to self only, WD/WN, vitals as above, NAD, sitting up in bed, Head: Normocephalic, Atraumatic Eyes: PERRL, pinpoint pupils, conjunctivae normal, anicteric sclerae ENMT: external ear and nose normal, oropharynx normal dry mucous membranes Neck: trachea midline, no thyromegaly normal visual inspection Respiratory: normal respiratory effort, lungs clear to auscultation, no wheeze, rales, rhonchi. Normal insp/exp effort, no accessory muscle use Cardiovascular: Irregular rate, irregular rhythm, no murmur, no edema, vessels: no JVD or carotid bruit Chest: normal inspection of chest Abdomen: normal bowel sounds, soft, nontender, no hepatosplenomegaly Musculoskeletal: no cyanosis or clubbing, extremities motor strength 5/5 Skin: no rashes, warm and dry normal turgor Neurologic: PERRL, EOMI, accommodation nl, no face palsy, no dysarthria CN's II-XI intact bilaterally and moves all extremities Psychiatric: A+Ox 1, euthymic affect Lymphatic: no cervical or axillary lymphadenopathy : deferred Results & Data Results & Data ([facility]) Vital Signs (Past 12 Hours) Vital Signs Temp Pulse Pulse Resp BP BP Pulse Ox 10/24/20 17:37 84 16 132/66 94 10/24/20 16:23 79 18 106/57 L 99 10/24/20 14:28 92 10/24/20 14:22 36.7 C 82 18 131/78 91 Diagnostic Findings Abdomen/Pelvis CT 10/24/20 14:[address] WITHOUT CONTRAST CT DOSE: 894.94 mGycm HISTORY: Acute right-sided flank pain right flank pain TECHNIQUE: Multiaxial CT images of the abdomen and pelvis were performed without contrast. A dose lowering technique was utilized adhering to the principles of ALARA. COMPARISON STUDY: CT abdomen and pelvis 06/21/2020 FINDINGS: Moderate layering pleural effusions with dependent bibasilar consolidation. Cardiomegaly with coronary artery and mitral annular calcifications. Partially imaged pacer leads. No pneumatosis or pneumoperitoneum. Calcified granuloma of the spleen. Extensive dense vascular calcifications throughout the abdomen and pelvis. Severely atrophic pancreas. Cholecystectomy. Unchanged mild extrahepatic biliary ductal prominence. Unremarkable adrenal glands. The liver is within normal limits. Bilateral renal vascular calcifications. Punctate calcification of the inferior pole right kidney appears to be associated with a probable 8 mm cyst. No definite renal or ureteral calculi identified. No hydronephrosis. Study is degraded by respiratory motion artifact and streak artifact from left hip total joint arthroplasty. Unremarkable urinary bladder. Uterus appears surgically absent. No adnexal mass lesions. No abdominal aortic aneurysm or adenopathy. Moderate sized hilar hernia. Postoperative changes of the stomach. No bowel obstruction or bowel wall thickening. Partial distention of the rectum. The visualized appendix is noninflamed. Mild colonic diverticulosis. There are numerous stool-filled loops of small bowel within the lower abdomen and pelvis. Diastases recti. Mild generalized body wall edema. Demineralized appearance the bones with degenerative changes of the spine, pelvis and hips. Intratrochanteric nail with medullary misael of the left femur fixating a chronic intertrochanteric fracture. IMPRESSION: 1. No renal or ureteral calculi or obstructive uropathy. 2. Moderate layering pleural effusions with dependent bibasilar compressive atelectasis. 3. No bowel obstruction or bowel wall thickening. 4. Additional findings as above. ACT 112: Negative or not required by law. The above report was generated using voice recognition software. It may contain grammatical, syntax or spelling errors. Electronically signed by: Luis Nova M.D. 10/24/2020 3:44 PM Chest X-Ray 10/24/20 14:22 XR chest 1V portable HISTORY: Right-sided chest pain. COMPARISON: Chest 09/20/2020. FINDINGS: No pneumothorax. Small bilateral pleural effusions. The cardiac silhouette remains mildly enlarged. There are mitral annulus calcifications and left-sided dual-chamber pacemaker. Diffuse interstitial/vascular thickening and perihilar hazy densities have progressed. This consistent with mild pulmonary edema. IMPRESSION: Interval development of mild interstitial pulmonary edema and small bilateral pleural effusions. ACT 112: Negative or not required by law. Electronically signed by: Carmine Adan M.D. 10/24/2020 3:43 PM ECG Rate (beats per minute): 76 Rhythm: atrial fibrillation Findings: + RBBB, + ST depression and + T-wave inversion COVID-19 Results Results COVID-19 Adm Lab Results: RBC 3.73 M/uL (4.2-5.4) L 10/24/20 WBC 7.34 K/uL (4.8-10.8) 10/24/20 Hgb 11.5 g/dL (12.0-16.0) L 10/24/20 Hct 35.7 % (37-47) L 10/24/20 Plt Count 301 K/uL (130-400) 10/24/20 Neutrophils (%) (Auto) 87.3 % 10/24/20 Lymphocytes (%) (Auto) 6.4 % 10/24/20 Monocytes # (Auto) 0.42 K/uL (0.11-0.59) 10/24/20 Eosinophils # (Auto) 0.03 K/uL (0-0.5) 10/24/20 Immature Granulocyte % (Auto) 0.1 % 10/24/20 Neutrophils # (Auto) 6.40 K/uL (1.4-6.5) 10/24/20 Lymphocytes # (Auto) 0.47 K/uL (1.2-3.4) L 10/24/20 Monocytes # (Auto) 0.42 K/uL (0.11-0.59) 10/24/20 Eosinophils # (Auto) 0.03 K/uL (0-0.5) 10/24/20 Basophils # (Auto) 0.01 K/uL (0-0.2) 10/24/20 Immature Granulocyte # (Auto) 0.01 K/uL (0.00-0.02) 10/24/20 Na 139 mmol/L (136-145) 10/24/20 K 4.3 mmol/L (3.5-5.1) 10/24/20 Cl 108 mmol/L (98-107) H 10/24/20 CO2 26 mmol/L (21-32) 10/24/20 Anion Gap 5.0 (3-11) 10/24/20 BUN 21 mg/dl (7-18) H 10/24/20 Creatinine 0.98 mg/dl (0.6-1.2) 10/24/20 BUN/Creatinine Ratio 21.3 (10-20) H 10/24/20 Glucose Level 162 mg/dl (70-99) H 10/24/20 Ca 8.4 mg/dl (8.5-10.1) L 10/24/20 Total Bilirubin 0.4 mg/dl (0.2-1) 10/24/20 AST/SGOT 16 U/L (15-37) 10/24/20 ALT/SGPT 18 U/L (12-78) 10/24/20 Alkaline Phosphatase 95 U/L (45-117) 10/24/20 Total Protein 6.8 gm/dl (6.4-8.2) 10/24/20 Albumin 2.9 gm/dl (3.4-5.0) L 10/24/20 Globulin 3.9 gm/dl (2.5-4.0) 10/24/20 Albumin/Globulin Ratio 0.7 (0.9-2) L 10/24/20 Troponin I < 0.015 ng/ml (0-0.045) 10/24/20 BJ-Wzu-F-Type Natriuretic Pep 8985 pg/ml (0-1800) H 10/24/20 PTT 25.2 Seconds (21.0-31.0) 10/24/20 INR 1.2 (0.9-1.1) H 10/24/20 COVID-19 PCR NEGATIVE (Negative) 10/24/20 Chest X-Ray 10/24/20 Code Status & VTE Plan Code Status full code VTE Prophylaxis Plan VTE Prophylaxis will be ordered: Yes Supervising Physician Co-Signing Physician Notes I saw this patient with the physician assistant office manager, I participated in the history, physical, review of systems, and physical exam. I reviewed the medications with the patient and the physician assistant office manager and helped reconcile the medications. I helped take a detailed family and social history as well. I formulated the assessment and plan personally with the physician assistant office manager and went over it with the patient. Physical Exam Gen-AAO x 2, NAD, Afebrile, Confused, poor historian Head-NCAT, EOMI, PERRLA, Anicteric Sclera, No Posterior Pharyngeal Erythema Neck-Supple, No JVD, No Thyromegaly, No Masses, No LAD, No Bruits Lungs-Clear to Auscultation Bilaterally, No Rales, No Rhonchi, No Wheezing, No Crepitus Chest-Irreg/Irreg, No S4, +S1, +S2, No S3, No Murmurs, No Rubs, No Gallops Abdomen-Soft, Bowel Sounds Present, Non Tender, Non Distended, No Hepatomegaly, No Splenomegaly, No Palpable Masses, No Rebound, No Rigidity, No Guarding Musculoskeletal-Full Range of Motion Bilaterally, No CVAT Extremities-No Cyanosis, No Clubbing, No Edema Nuero-Cranial Nerves II-XII grossly intact, Motor WNL, DTRs WNL, Strength WNL, Non Focal Psych-Pleasant (1) CAD (coronary artery disease) Associated angina: without angina Coronary Disease-Associated Artery/Lesion type: [place] artery [place] vs. transplanted heart: [place] heart Qualified Code(s): I25.10 - Atherosclerotic heart disease of [place] coronary artery without angina pectoris
[2020-10-24] MEDS ORDERED: FUROSEMIDE 40 MG/4 ML VIAL IV STA (18:02)
[2020-10-24] MEDS ORDERED: OPTIRAY 320 125ml IV ONE (18:22)
[2020-10-24] MEDS ORDERED: WARFARIN SOD 5 MG TAB PO STA (18:23)
[2020-10-24] MEDS ORDERED: Heparin IV Adult Wt-Based Standard *NO* Bolus Protocol IV STA (18:23)
[2020-10-24] MEDS ORDERED: HEPARIN 25000 UNIT/500 ML D5W IV ONE (19:08)
[2020-10-24] MEDS: HEPARIN SODIUM/DEXTROSE 25,000 UNITS/500 ML BAG IV SCH (19:19)
[2020-10-24 19:36] LABS: Appearance Urine Clear (Clear); Bacteria Urine Automated 4+ (Negative); Bilirubin Urine Negative (Negative); Blood Urine Trace (Negative); Color Urine Yellow; Glucose Urine UA Negative (Negative); Ketones Urine Negative (Negative); Leukocyte Esterase Urine 2+ (Negative); Nitrite Urine Positive (Negative); Protein Urine Negative (Negative); RBC Urine Automated 0-4 /hpf (0-4); Specific Gravity Urine 1.032 (1.000-1.030); Urobilinogen Urine Negative (Negative); WBC Urine Automated >30 /hpf (0-5)
--- NOTE | 2020-10-24 19:38 | CT Scan Report ---
CT ANGIOGRAM OF THE CHEST CLINICAL HISTORY: Dyspnea. COMPARISON STUDY: Chest x-ray dated 1121. Chest CT dated 10/12/2019 TECHNIQUE: Following the IV administration of 118 cc of Optiray 320, CT angiogram of the chest was pe rformed from the upper abdomen to the thoracic inlet utilizing the pulmonary embolus protocol. Images are reviewed in the axial, sagittal, and coronal planes. 3-D MIPS images are created and assessed. I V contrast was administered without complication. A dose lowering technique was utilized adhering to the principles of ALARA. The examination is degraded by motion artifact, and by streak artifact from the arms which could not be elevated above the chest. CT DOSE: 477.89 mGycm FINDINGS: Thyroid: Imaged portions of the thyroid gland are normal in size and attenuation. An 11 mm low-attenu ation nodule is incidentally noted in the left lobe and unchanged from previous. Thoracic aorta: There is atherosclerotic calcification of the thoracic aorta. There is mild aneurysma l dilatation of the ascending thoracic aorta which measures up to 4.1 cm. The remainder of the thorac ic aorta is normal in caliber, and the arch demonstrates standard 3-vessel anatomy. No dissection is seen. Pulmonary vasculature: The pulmonary trunk is normal in caliber. There are no filling defects identif ied in main, lobar, or segmental pulmonary branches to suggest pulmonary embolus. Evaluation of the p eripheral branches is degraded by motion artifact. Heart: The heart is normal in size and without pericardial effusion. A 2-lead cardiac pacemaker is se en in the left chest wall. The coronary arteries and mitral annulus are densely calcified. Lungs and pleural spaces: Evaluation of the lung parenchyma is modestly degraded by motion artifact. There are small to moderate pleural effusions with dependent consolidation. The trachea and central a irways are clear. Mild intralobular septal thickening suggests congestive change. Mediastinum: There is no mediastinal lymphadenopathy. Esophagus: Esophagus is patulous and distended, and filled with fluid to the level of the thoracic in let. Dominga: Clear. Axillae: There is no axillary lymphadenopathy. Upper abdomen: Wall thickening is suggested at the gastroesophageal junction, and postoperative jalloh e is noted in the stomach. 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 Partially visualized upper abdominal viscera is otherwise grossly unremarkable. Skeletal structures: The skeletal structures are osteopenic. Degenerative change and mild hyperkyphos is is noted in the thoracic spine. Arthritic change is seen in the shoulders, with evidence of previo us surgery seen bilaterally. No lytic or blastic bony lesions are seen. IMPRESSION: 1. Streak and motion compromised examination. 2. There is no evidence of pulmonary embolus in the main, lobar, or segmental pulmonary arteries. 3. Cardiomegaly and cardiac pacemaker. Mild intralobular septal thickening could be seen with acute v ersus chronic congestive failure and clinical correlation will be required. 4. There are small to moderate pleural effusions with dependent consolidation. This likely represents atelectasis. Correlate clinically for evidence of superimposed pneumonia. 5. There is mild aneurysmal dilatation of the ascending thoracic aorta which measures up to 4.1 cm in diameter. 6. The esophagus is distended and patulous, and filled with fluid to the level of the thoracic inlet. Note that this may place the patient at risk for aspiration. 7. Circumferential wall thickening is noted at the gastroesophageal junction. Correlate clinically fo r evidence of esophagitis. This could be further assessed with endoscopy if clinically warranted to a ssess for obstructing lesion. 8. Additional findings as above. ACT 112: Negative or not required by law. Electronically signed by: Luis Fernando Murdock M.D. 10/24/2020 7:37 PM
[2020-10-24] MEDS ORDERED: cefTRIAXone SODIUM 1,000 MG/50 ML BAG IV STA (19:56)
[2020-10-24] MEDS ORDERED: GLUCOSE 40% GEL 15 GM TUBE PO PRN (20:30)
[2020-10-24] MEDS ORDERED: POLYETHYLENE (MIRALAX) 17 GM PACK PO PRN (20:30)
[2020-10-24] MEDS ORDERED: ALUMINUM/MAGNESIUM SUSP 30 ML UDC PO PRN (20:30)
[2020-10-24] MEDS ORDERED: GLUCAGON FOR INJ 1 MG VIAL SQ PRN (20:30)
[2020-10-24] MEDS ORDERED: ONDANSETRON INJ 2 MG/ML 2 ML VIAL IV PRN (20:30)
[2020-10-24] MEDS ORDERED: GLUCOSE 10 TABS/TUBE PO PRN (20:30)
[2020-10-24] MEDS ORDERED: CARBOHYDRATES FOR HYPOGLYCEMIA PO PRN (20:30)
[2020-10-24] MEDS ORDERED: MAGNESIUM HYDROXIDE SUSP 30 ML UDC PO PRN (20:30)
[2020-10-24] MEDS ORDERED: DEXTROSE 50% 50 ML SYRINGE IV PRN (20:30)
[2020-10-24] MEDS: METHENAMINE HIPPURATE 1 GM TAB PO SCH (21:37)
[2020-10-24] MEDS: INSULIN ASPART 100 UNITS/ML 3 ML PEN SC SCH (21:38)
[2020-10-24] MEDS: FERROUS SULFATE 325 MG TAB PO SCH (21:38)
[2020-10-24] MEDS: POTASSIUM CHLORIDE 10 MEQ TABCR PO SCH (21:40)
[2020-10-25 01:38] LABS: Partial Thromboplastin Ratio 2.6
[2020-10-25 01:40] LABS: Partial Thromboplastin Time 69.6 Seconds (21.0-31.0)
[2020-10-25 03:38] LABS: Basophils # (auto) 0.02 K/uL (0-0.2); Basophils % (auto) 0.3 %; Eosinophils # (auto) 0.02 K/uL (0-0.5); Eosinophils % (auto) 0.3 %; Hematocrit (blood only) 30.3 % (37-47); Hemoglobin 9.8 g/dL (12.0-16.0); Immature Granulocytes # (auto) 0.01 K/uL (0.00-0.02); Immature Granulocytes % (auto) 0.2 %; Lymphocytes # (auto) 0.89 K/uL (1.2-3.4); Lymphocytes % (auto) 14.5 %; Mean Corpuscular Hemoglobin 30.4 pg (25-34); Mean Corpuscular Hgb Conc 32.3 g/dL (32-36); Mean Corpuscular Volume 94.1 fL (80-100); Mean Platelet Volume 9.7 fL (7.4-10.4); Monocytes # (auto) 0.55 K/uL (0.11-0.59); Neutrophils # (auto) 4.64 K/uL (1.4-6.5); Neutrophils % (auto) 75.7 %; Platelet Count 249 K/uL (130-400); RDW Standard Deviation 48.2 fL (36.4-46.3); Red Blood Count 3.22 M/uL (4.2-5.4); White Blood Count 6.13 K/uL (4.8-10.8)
[2020-10-25 03:45] LABS: INR 1.3 (0.9-1.1); Prothrombin Time 12.6 Seconds (9.0-12.0)
[2020-10-25 04:02] LABS: Alanine Aminotransferase 11 U/L (12-78); Albumin Level 2.3 gm/dl (3.4-5.0); Aspartate Aminotransferase 13 U/L (15-37); BUN Creatinine Ratio 22.9 (10-20); Blood Urea Nitrogen 21 mg/dl (7-18); Calcium 7.9 mg/dl (8.5-10.1); Carbon Dioxide 30 mmol/L (21-32); Chloride 105 mmol/L (98-107); Creatinine Clr Calc Pharmacy 48.8 ml/min; Est GFR (African American) 66.8 ml/min; Est GFR (Non-African American) 57.6 ml/min; Glucose 117 mg/dl (70-99); Magnesium 1.9 mg/dl (1.8-2.4); Potassium 4.2 mmol/L (3.5-5.1)
[2020-10-25 04:29] LABS: Albumin Globulin Ratio 0.7 (0.9-2); Alkaline Phosphatase 75 U/L (45-117); Bilirubin,Total 0.4 mg/dl (0.2-1); Globulin 3.2 gm/dl (2.5-4.0); Sodium 138 mmol/L (136-145); Total Protein 5.5 gm/dl (6.4-8.2); Troponin I < 0.015 ng/ml (0-0.045)
[2020-10-25] MEDS: LEVOTHYROXINE SODIUM 50 MCG TABLET PO SCH ×2 (06:21→21:30)
[2020-10-25 07:31] LABS: Estimated Average Glucose 114 mg/dl; Hemoglobin A1C 5.6 % (4.5-5.6)
[2020-10-25] MEDS: CITALOPRAM 40 MG TAB PO SCH (08:04)
[2020-10-25] MEDS: MULTIVITAMIN TAB PO SCH (08:04)
[2020-10-25] MEDS: CLOPIDOGREL BISULFATE 75 MG TAB PO SCH (08:04)
[2020-10-25] MEDS: FERROUS SULFATE 325 MG TAB PO SCH ×3 (08:04→20:34)
[2020-10-25] MEDS: ADVANCED PROBIOTIC 1250 MG CAPSULE PO SCH (08:04)
[2020-10-25] MEDS: METOPROLOL SUCC 25MG EXT REL TAB PO SCH (08:04)
[2020-10-25] MEDS: POTASSIUM CHLORIDE 10 MEQ TABCR PO SCH ×3 (08:04→20:34)
[2020-10-25] MEDS: FAMOTIDINE 20 MG TAB PO SCH (08:04)
[2020-10-25] MEDS: INSULIN GLARGINE SOLOSTAR 100 UNITS/ML 3 ML PEN SC SCH (08:05)
[2020-10-25] MEDS: INSULIN ASPART 100 UNITS/ML 3 ML PEN SC SCH ×4 (08:06→20:29)
[2020-10-25] MEDS: ACETAMINOPHEN 325 MG TAB PO PRN ×2 (08:07→16:41)
[2020-10-25 08:19] LABS: Partial Thromboplastin Ratio 3.2
--- NOTE | 2020-10-25 08:24 | Electrocardiogram Report ---
Test Reason : Blood Pressure : / mmHG Vent. Rate : 076 BPM Atrial Rate : 090 BPM P-R Int : 000 ms QRS Dur : 112 ms QT Int : 394 ms P-R-T Axes : 000 -61 -85 degrees QTc Int : 443 ms Atrial fibrillation with premature ventricular or aberrantly conducted complexes Left axis deviation Incomplete right bundle branch block Abnormal ECG When compared with ECG of 13-SEP-2020 18:53, Atrial fibrillation has replaced Electronic ventricular pacemaker Confirmed by Jesús Waters ([id number]) on 10/25/2020 8:24:24 AM Referred By: Confirmed By:Marcus Waters
--- NOTE | 2020-10-25 08:27 | Hospitalist Progress Note ---
Date of Service October 25, 2020 Assessment & Plan (1) Abnormality of esophagus: (2) Subtherapeutic international normalized ratio (INR): (3) Acute UTI (urinary tract infection): Plan: 79 yo F w/ PMH of CAD, chronic HFpEF, persistent A. fib anticoagulated on warfarin, renal stone and urosepsis in June 2020, T2DM, HTN, HLD, SSS status post PPM, hypothyroidism, valvular heart disease with mild aortic stenosis and moderate mitral stenosis, MDS presented to ED 10/[address] [facility] w/ acute onset right sided flank pain. She received fentanyl in ED. Later on she complained of Rt sided non radiating chest pain, dull, 05/23, a/w SOB. Being managed for the following: #. Chest pain/Rt Flank pain #. Subtherapeutic INR #. Permanent Afib h/o CAD EKG: anterolateral T wave inversions with a negative troponinx3 Takes coumadin at home (home regimen 2 mg on Thursday, 4 mg all other days), on iv heparin currently owing to subtherapeutic INR at presentation Admitting CTA chest negative for PE. Admitting CTAP negative for renal calculi/obstructive uropathy. echo 09/2020 EF 65 to 70%, mild aortic valve stenosis, moderate mitral valve stenosis, LA severely dilated, RVSP 40 to 50 mmHg Troponin x3 - Cardiology on board: Likely noncardiac chest pain, no further intervention at this time. Okay to DC telemetry or to home from cardiac standpoint. No medication changes at this time. Palliative care consulted to discuss goals of care. Continue with heparin, to be held by GI prior to scope tomorrow. Will DC telemetry tomorrow after the scope. #. Mild CHF exacerbation #. CAD Recent hospitalization in September 2020 for acute decompensation of CHF in the setting of viral heart disease and hypoalbuminemia Admitting CXR: Mild interstitial pulmonary edema and small bilateral pleural effusion. proBNP elevated at 8985. Recent echosee above Clinically patient appears stable and euvolemic. Patient on room air, continue to monitor. Continue with gentle hydration, patient n.p.o., will resume Lasix once she is started on diet after her scope tomorrow. C/W home medications #. Esophagitis versus esophageal obstruction #. Thoracic ascending aorta aneurysm Admitting CTAP: Cardiomegaly and cardiac pacemaker. Small to moderate pleural effusion with dependent consolidation. Mild aneurysmal dilation of the thoracis ascending aorta approximately 4.1 cm. Esophagus is distended and patulous, and pelvic tilt to the level of thoracic inlet, increasing the risk of aspiration for patient. Circumferential wall thickening at GE junction which can likely be obstructive lesion for the above findings. GI on board: EGD tomorrow, strict n.p.o., aspiration precaution. May consider Botox injection during EGD if endoscopy suggested sedation. Hold heparin 4 hours prior to schedule EGD tomorrow or as per GI. #. UTI No fever or high WBC so far Urine analysis concerning, pro-Coy 0.55, patient is started on Rocephin empirically Preliminary urinary culture shows gram-negative bacilli. Awaiting blood culture Follow-up with final culture. Continue with Rocephin. #. DM 2 last a1c 6.6 06/22/20 A1c 5.6 this admission [October 2020] lantus/novolog per protocol #. Hypoalbuminemia consult dietitian, possibly contributing to volume overload #. Anemia monitor cbc, h/h stable likely chronic, on b12 and iron supplementation Disposition: We will get PT/OT involved. [facility] . Admission and Anticipated Discharge Date Admission Date: October 24, 2020 Subjective Patient was lying semiupright in bed, on room air, NAD, no issues overnight. Denies fever/chills/dizziness/chest pain/palpitations/cough/skin rash/acute changes in bowel or bladder habit. She endorses improvement in her right-sided flank pain and right-sided chest pain. She states that she was feeling hungry. She is to remain n.p.o. for EGD tomorrow. She states that she has chronic headache and has not changed in character or severity.. Physical Exam Physical Exam: GENERAL: Alert and oriented x3. NAD, on RA. HEENT: No pallor, no icterus. Pupils equal, round and reactive to light. Oral mucosa moist. NECK: No JVD, no neck masses. HEART: S1 and S2 heard. Regular rate and rhythm. Murmur over aortic and pulmonic area, no gallop. RESPIRATORY SYSTEM: Normal AP diameter. No accessory muscle use. No wheezing, no crackles. ABDOMEN: Soft, bowel sounds present, nontender, no distention. CENTRAL NERVOUS SYSTEM: Alert and oriented x3. No facial droop. Speech is clear. Obeys simple commands. Moves extremities. EXTREMITIES: No edema, no erythema seen. Results & Data Results & Data ([facility]) Vital Signs (Past 12 Hours) Vital Signs Temp Pulse Pulse Resp BP BP Pulse Ox 10/25/20 04:06 36.9 C 76 24 111/56 L 96 10/25/20 00:00 69 10/24/20 23:43 10/24/20 23:38 36.8 C 70 22 111/50 L 95 10/24/20 23:14 37.1 C 74 18 113/51 L 96 10/24/20 20:31 37 C 82 22 161/79 H 95 Pulse Ox 10/25/20 04:06 10/25/20 00:00 10/24/20 23:43 96 10/24/20 23:38 10/24/20 23:14 10/24/20 20:31
--- NOTE | 2020-10-25 08:27 | Electrocardiogram Report ---
Test Reason : Blood Pressure : / mmHG Vent. Rate : 084 BPM Atrial Rate : 065 BPM P-R Int : 000 ms QRS Dur : 108 ms QT Int : 416 ms P-R-T Axes : 000 -60 268 degrees QTc Int : 491 ms Undetermined rhythm Left axis deviation Right bundle branch block T wave abnormality, consider inferolateral ischemia vscerebrovascular event Abnormal ECG When compared with ECG of 24-OCT-2020 14:39, (unconfirmed) Current undetermined rhythm precludes rhythm comparison, needs review Criteria for Anterior infarct are no longer Present Confirmed by Jesús Waters ([id number]) on 10/25/2020 8:26:51 AM Referred By: REFERRED SELF Confirmed By:Marcus Waters
[2020-10-25 08:34] LABS: Partial Thromboplastin Time 84.9 Seconds (21.0-31.0)
--- NOTE | 2020-10-25 08:39 | Cardiology Consultation ---
Date of Consultation October 25, 2020 Assessment & Plan (1) Chest pain: (2) Valvular heart disease: (3) Abnormal EKG: (4) Acute UTI (urinary tract infection): (5) Acute on chronic heart failure with preserved ejection fraction (HFpEF): (6) S/P ureteral stent placement: (7) Pacemaker: (8) CAD (coronary artery disease): (9) Atrial fibrillation: Chest pain reproducible to palpation, this represents noncardiac chest pain. EKG performed upon presentation with patient in upper [place] rhythm, not paced as compared to previous EKG. This is her baseline EKG when she was in A. fib, no further cardiac testing intervention necessary at this time. Given the patient's frequent rehospitalizations and full CODE STATUS I will ask our palliative care colleagues to evaluate her for her goals of care. Okay to DC telemetry or to home from a cardiac standpoint. No medication changes at this time. History of Present Illness Reason for Consultation: Chest pain Requesting Physician: Dr. Cole Attending Physician: Shelby Cole MD History of Present Illness Mrs. Palomo is a very pleasant yet medically complex 79-year-old woman who presented to [facility] on 10/24/2020 with complaints of chest wall pain. She states that she was sitting last evening when her chest suddenly felt very tender. It was tender to palpation and there is also a pleuritic component to her discomfort. She presented to the emergency department for further evaluation and EKG was performed. EKG showed atrial fibrillation with diffuse T wave abnormalities and she was admitted to telemetry. Currently she states that she is feeling better. Notes that her chest wall is yeast distiller to touch. Past medical history as per most recent outpatient cardiology note. 1. Atherosclerotic coronary artery disease status post prior coronary interventions including PTCA and stenting of the right coronary artery in 1995, repeat coronary interventions in July of 2011 receiving atherectomy and stenting of the right coronary artery, and separate procedure with a drug- eluting stent to the mid left anterior descending, December 2011. Cardiac catheterization at [facility] November 20, 2016 high- grade mid left anterior descending stenosis, technically difficult procedure. S/P PCI with Cobra stent to the mid LAD stenosis with occlusion of small diseased diagonal branch) [place] 12[place] [facility] Status post coronary angiography and subsequent coronary intervention on 12/31/2017, receiving a drug-eluting stent to 80% narrowing of an ostial diagonal lesion, for persistent cardiac symptoms 2. Stable class I-II angina pectoris. 3. Preserved LV systolic function with chronic diastolic dysfunction. 4. Valvular heart disease with mild aortic stenosis with mild aortic root dilatation/ mild to moderate mitral stenosis 5. Hypertension. 6. Hyperlipidemia. 7. Myelodysplastic syndrome with chronic iron deficiency anemia 9. Postprocedural sinus arrest with extended pause and subsequent dual-chamber pacemaker insertion November 21, [address] BOYCE [id number] 10. Persistent atrial fibrillation 11. Marked hypoalbuminemia 12. Status post gastric bypass surgery 2009 13. Urosepsis and ureteral stone June 2020 Allergies Allergy/AdvReac Type Severity Reaction Status Date / Time adhesive Allergy Unknown ADHESIVE Verified 10/24/20 15:42 TAPE Home Medications Medication Instructions Recorded Confirmed Type ferrous sulfate 325 mg (65 mg 325 mg PO BID 11/08/18 10/24/20 History iron) tablet citalopram 40 mg tablet 40 mg PO QAM 03/13/19 10/24/20 History levothyroxine 50 mcg tablet 50 mcg PO QAM 03/13/19 10/24/20 History furosemide 20 mg tablet 20 mg PO QAM 10/10/19 10/24/20 History cyanocobalamin (vitamin B-12) 1,000 mcg IM MONTHLY 02/18/20 10/24/20 History 1,000 mcg/mL injection solution clopidogrel 75 mg tablet 75 mg PO QAM 06/21/20 10/24/20 History famotidine 20 mg tablet 20 mg PO QAM 06/21/20 10/24/20 History warfarin 4 mg tablet 4 mg PO [id number] 06/21/20 10/24/20 History Lactobacillus acidoph-L.bulgaricus 1 tab PO TIDM 07/27/20 10/24/20 History 1 million cell tablet (Floranex) methenamine hippurate 1 gram tablet 1 g PO HS 07/27/20 10/24/20 History multivitamin (Daily-Nori) 1 tab PO DAILY 09/13/20 10/24/20 History warfarin 2 mg tablet 2 mg PO .DAILY ON Fridays09/13/20 10/24/20 History furosemide 20 mg tablet 20 mg PO 1700 PRN #10 tab 09/20/20 10/24/20 Rx insulin glargine 100 unit/mL (3 8 unit SUBCUT DAILY 10/24/20 10/24/20 History mL) subcutaneous pen (Lantus Solostar U-100 Insulin) metoprolol succinate 25 mg 12.5 mg PO DAILY 10/24/20 10/24/20 History tablet,extended release 24 hr nut.tx.glucose intolerance,soy 1 ea PO BID 10/24/20 10/24/20 History potassium chloride 10 mEq 10 meq PO BID 10/24/20 10/24/20 History tablet,extended release(part/cryst) (Klor-Con M) Patient History Medical History Anemia Aortic root dilatation 4.4 cm on echo 01/2019 Aortic root normal size on 02/2020 ECHO Asthma Atrial fibrillation Bifascicular block CAD (coronary artery disease) "1995 - PTCA and stenting of RCA 07/2011 - atherectomy and stenting RCA 12/2011- AZALIA to the mid LAD 2016-Cobra stent to mid LAD 2017-AZALIA to ostial diagonal Calculus of distal left ureter Closed fracture of left hip February 2020trochanteric nail placed by Ortho Congestive heart failure Depression DM type 2 (diabetes mellitus, type 2) Dyslipidemia GERD (gastroesophageal reflux disease) Hypertension Hypothyroidism HOMERO (iron deficiency anemia) Macular degeneration MDS (myelodysplastic syndrome) Mild aortic stenosis Per 02/19/20 ECHO- ASHLEY 1.84 cm; AV max velocity 2.491 m/s; AV mean PG 13.6 mmHg Mitral stenosis Moderate per 02/2020 ECHO Pacemaker Sinus node dysfunction VRE (vancomycin resistant enterococcus) culture positive Surgical History History of angioplasty History of arthroscopy of knee History of arthroscopy of shoulder History of cholecystectomy History of gastric bypass History of incisional hernia repair History of partial hysterectomy History of tonsillectomy Family History Father Colorectal cancer Sister Lung cancer Diabetes Brother Diabetes Mother Diabetes Social History Smoking Status: Never smoker Second Hand Exposure: No; Hx Alcohol Use: Yes Alcohol type: wine Hx Substance Use: No Preferred Language: Sami Communication Ability: Effective Visual Impairment: No Limitations Hearing Ability: Normal Assistant Auditor Required: No Beliefs That Will Affect Care: None marital status: / Current Living Situation: Family Current Living Situation Comment: son and grandaughter current occupational status: retired How many Children do You have: 3 Other Information That Helps Us Care for You: No Feels Safe at Home: Yes Safety Concerns: Feels Safe At This Time Assistive Devices: None Review of Systems Review of Systems: All systems reviewed & are unremarkable except as noted in HPI & below Physical Exam Physical Exam: General: Awake, alert and oriented x 3. No acute distress. HEENT: Normocephalic, atraumatic. Pupils equal, round and reactive to light and accommodation. Extraocular muscles are intact. Anicteric sclera. Moist mucous membranes. Neck: No JVD. No bruit. Cardiovascular: Regular. Positive S-4. Normal S-1 and S-2. No S-3. 3/6 mid to late systolic ejection murmur, greatest at the right sternal border, second intercostal space with radiation to the bilateral carotids. No rubs. Pulmonary: Clear to auscultation bilaterally. No rales, rhonchi, or wheezing. Abdomen: Bowel sounds x 4, soft. No rebound, guarding or tenderness. No organomegaly. Extremities: No clubbing, cyanosis or edema. +2 pedal pulses bilaterally. Skin: Warm and dry. Results & Data ([facility]) Vital Signs (Past 12 Hours) Vital Signs Temp Pulse Pulse Resp BP BP Pulse Ox 10/25/20 04:06 36.9 C 76 24 111/56 L 96 10/25/20 00:00 69 10/24/20 23:43 10/24/20 23:38 36.8 C 70 22 111/50 L 95 10/24/20 23:14 37.1 C 74 18 113/51 L 96 Pulse Ox 10/25/20 04:06 10/25/20 00:00 10/24/20 23:43 96 10/24/20 23:38 10/24/20 23:14 (1) CAD (coronary artery disease) Coronary Disease-Associated Artery/Lesion type: upper [place] artery [place] vs. transplanted heart: upper [place] heart Associated angina: without angina Qualified Code(s): I25.10 - Atherosclerotic heart disease of upper [place] coronary artery without angina pectoris
--- NOTE | 2020-10-25 09:48 | Gastrointestinal Consultation ---
Date of Consultation October 25, 2020 Assessment & Plan (1) Abnormality of esophagus: 79 year old female admitted through the ED w/ chest pain w/anterolateral T wave inversions with a negative troponin. GI asked to evalas CT showed distended esophagus filled with fluid to the level of the thoracic inlet w/ Circumferential wall thickening is noted at the gastroesophageal junction She tells me she ate breakfast around 0800 NPO Aspiration precautions Appreciate cardiology input Will discuss imaging and plan for EGD with attending, will need to be in the OR Supervising Physician Co-Signing Physician Notes Attg add: I interviewed and examined pt, reviewed chart and labs. Pt with markedly distended esophagus on CT found during w/u for CP. Plan EGD tomorrow. Strict NPO today, aspiration precautions. May consider botox injxn during EGD if endoscopy suggests achalasia. History of Present Illness Reason for Consultation: fluid filles esophagus Requesting Physician: Douglas Attending Physician: Shelby Cole MD History of Present Illness 79 year old female with history of T2DM, dyslipidemia, CAD, hypothyroidism, sinus node dysfunction, old [place], afib, others below admitted w/ acute chest pain she does have anterolateral T wave inversions with a negative troponin. Cardiology consultation pending. GI asked to evaluate for fluid filled eosphagis. She is a poor historian. She notes she is feeling well at present. Denies nausea, vomiting or acute dysphagia to me. She notes thats sometimes she has difficutly swallowing but is unable to articulate what happens when she tries to swallow. No fever, chills. Denying CP or SOB. CT 2020: The esophagus is distended and patulous, and filled with fluid to the level of the thoracic inlet. Note that this may place the patient at risk for aspiration. Circumferential wall thickening is noted at the gastroesophageal junction. Correlate clinically for evidence of esophagitis. This could be further assessed with endoscopy if clinically warranted to assess for obstructing lesion. EGD 2019 Normal esophagus. - No stricture seen. - Gastric bypass with a normal-sized pouch and intact staple line. Gastrojejunal anastomosis characterized by healthy appearing mucosa. - Normal examined jejunum. Allergies Allergy/AdvReac Type Severity Reaction Status Date / Time adhesive Allergy Unknown ADHESIVE Verified 10/24/20 15:42 TAPE Home Medications Medication Instructions Recorded Confirmed Type ferrous sulfate 325 mg (65 mg 325 mg PO BID 11/08/18 10/24/20 History iron) tablet citalopram 40 mg tablet 40 mg PO QAM 03/13/19 10/24/20 History levothyroxine 50 mcg tablet 50 mcg PO QAM 03/13/19 10/24/20 History furosemide 20 mg tablet 20 mg PO QAM 10/10/19 10/24/20 History cyanocobalamin (vitamin B-12) 1,000 mcg IM MONTHLY 02/18/20 10/24/20 History 1,000 mcg/mL injection solution clopidogrel 75 mg tablet 75 mg PO QAM 06/21/20 10/24/20 History famotidine 20 mg tablet 20 mg PO QAM 06/21/20 10/24/20 History warfarin 4 mg tablet 4 mg PO [id number] 06/21/20 10/24/20 History Lactobacillus acidoph-L.bulgaricus 1 tab PO TIDM 07/27/20 10/24/20 History 1 million cell tablet (Floranex) methenamine hippurate 1 gram tablet 1 g PO HS 07/27/20 10/24/20 History multivitamin (Daily-Nori) 1 tab PO DAILY 09/13/20 10/24/20 History warfarin 2 mg tablet 2 mg PO .DAILY ON Fridays09/13/20 10/24/20 History furosemide 20 mg tablet 20 mg PO 1700 PRN #10 tab 09/20/20 10/24/20 Rx insulin glargine 100 unit/mL (3 8 unit SUBCUT DAILY 10/24/20 10/24/20 History mL) subcutaneous pen (Lantus Solostar U-100 Insulin) metoprolol succinate 25 mg 12.5 mg PO DAILY 10/24/20 10/24/20 History tablet,extended release 24 hr nut.tx.glucose intolerance,soy 1 ea PO BID 10/24/20 10/24/20 History potassium chloride 10 mEq 10 meq PO BID 10/24/20 10/24/20 History tablet,extended release(part/cryst) (Klor-Con M) Patient History Medical History Anemia Aortic root dilatation 4.4 cm on echo 01/2019 Aortic root normal size on 02/2020 ECHO Asthma Atrial fibrillation Bifascicular block CAD (coronary artery disease) "1995 - PTCA and stenting of RCA 07/2011 - atherectomy and stenting RCA 12/2011- AZALIA to the mid LAD 2016-Cobra stent to mid LAD 2017-AZALIA to ostial diagonal Calculus of distal left ureter Closed fracture of left hip February 2020trochanteric nail placed by Ortho Congestive heart failure Depression DM type 2 (diabetes mellitus, type 2) Dyslipidemia GERD (gastroesophageal reflux disease) Hypertension Hypothyroidism HOMERO (iron deficiency anemia) Macular degeneration MDS (myelodysplastic syndrome) Mild aortic stenosis Per 02/19/20 ECHO- ASHLEY 1.84 cm; AV max velocity 2.491 m/s; AV mean PG 13.6 mmHg Mitral stenosis Moderate per 02/2020 ECHO Pacemaker Sinus node dysfunction VRE (vancomycin resistant enterococcus) culture positive Surgical History History of angioplasty History of arthroscopy of knee History of arthroscopy of shoulder History of cholecystectomy History of gastric bypass History of incisional hernia repair History of partial hysterectomy History of tonsillectomy Family History Father Colorectal cancer Sister Lung cancer Diabetes Brother Diabetes Mother Diabetes Social History Smoking Status: Never smoker Second Hand Exposure: No; Hx Alcohol Use: Yes Alcohol type: wine Hx Substance Use: No Preferred Language: Greenlandic Communication Ability: Effective Visual Impairment: No Limitations Hearing Ability: Normal Laundry Aide Required: No Beliefs That Will Affect Care: None marital status: / Current Living Situation: Family Current Living Situation Comment: son and grandaughter current occupational status: retired How many Children do You have: 3 Other Information That Helps Us Care for You: No Feels Safe at Home: Yes Safety Concerns: Feels Safe At This Time Assistive Devices: None Physical Exam Constitutional: WD/WN, vitals as above Respiratory: normal respiratory effort, lungs clear to auscultation Gastrointestinal (Abdomen): normal bowel sounds, soft, nontender, no hepatosplenomegaly Results & Data ([facility]) Vital Signs (Past 12 Hours) Vital Signs Temp Pulse Pulse Resp BP BP Pulse Ox 10/25/20 04:06 36.9 C 76 24 111/56 L 96 10/25/20 00:00 69 10/24/20 23:43 10/24/20 23:38 36.8 C 70 22 111/50 L 95 10/24/20 23:14 37.1 C 74 18 113/51 L 96 Pulse Ox 10/25/20 04:06 10/25/20 00:00 10/24/20 23:43 96 10/24/20 23:38 10/24/20 23:14 Laboratory Results 10/25/20 10/25/20 10/25/20 Range/Units 07:48 07:21 03:11 WBC (4.8-10.8) K/uL RBC (4.2-5.4) M/uL Hgb (12.0-16.0) g/dL Hct (37-47) % MCV (80-100) fL MCH (25-34) pg MCHC (32-36) g/dL RDW Std Deviation (36.4-46.3) fL RDW Coeff of Gaston (11.5-14.5) % Plt Count (130-400) K/uL MPV (7.4-10.4) fL Immature Gran % (Auto) % Neut % (Auto) % Lymph % (Auto) % [place] % (Auto) % Eos % (Auto) % Baso % (Auto) % Neut # (Auto) (1.4-6.5) K/uL Lymph # (Auto) (1.2-3.4) K/uL [place] # (Auto) (0.11-0.59) K/uL Eos # (Auto) (0-0.5) K/uL Baso # (Auto) (0-0.2) K/uL Immature Gran # (Auto) (0.00-0.02) K/uL PT (9.0-12.0) Seconds INR (0.9-1.1) APTT 84.9 H* (21.0-31.0) Seconds PTT Ratio 3.2 Sodium (136-145) mmol/L Potassium (3.5-5.1) mmol/L Chloride (98-107) mmol/L Carbon Dioxide (21-32) mmol/L Anion Gap (3-11) BUN (7-18) mg/dl Creatinine (0.6-1.2) mg/dl Est Cr Clr Drug Dosing ml/min Est GFR ( Amer) ml/min Est GFR (Non-Af Amer) ml/min BUN/Creatinine Ratio (10-20) Glucose (70-99) mg/dl POC Glucose 104 H (70-99) mg/dl Estimat Average Glucose 114 mg/dl Hemoglobin A1c 5.6 (4.5-5.6) % Calcium (8.5-10.1) mg/dl Magnesium (1.8-2.4) mg/dl Total Bilirubin (0.2-1) mg/dl AST (15-37) U/L ALT (12-78) U/L Alkaline Phosphatase (45-117) U/L Troponin I (0-0.045) ng/ml NT-Pro-B Natriuret Pep (0-1800) pg/ml Total Protein (6.4-8.2) gm/dl Albumin (3.4-5.0) gm/dl Globulin (2.5-4.0) gm/dl Albumin/Globulin Ratio (0.9-2) Lipase (73-393) U/L Procalcitonin (0-0.5) ng/ml TSH (0.300-4.500) uIu/ml Urine Color Urine Appearance (Clear) Urine pH (4.5-7.5) Ur Specific [place] (1.000-1.030) Urine Protein (Negative) Urine Glucose (UA) (Negative) Urine Ketones (Negative) Urine Blood (Negative) Urine Nitrite (Negative) Urine Bilirubin (Negative) Urine Urobilinogen (Negative) Ur Leukocyte Esterase (Negative) Urine WBC (Auto) (0-5) /hpf Urine RBC (Auto) (0-4) /hpf U Hyaline Cast (Auto) (0-5) /lpf U Epithel Cells (Auto) (0-5) /lpf Urine Bacteria (Auto) (Negative) Nasal Screen MRSA (PCR) (Negative) COVID-19 Eval Order SARS-CoV-2 (PCR) (Negative) 10/25/20 10/25/20 10/25/20 Range/Units 03:11 03:11 03:11 WBC 6.13 (4.8-10.8) K/uL RBC 3.22 L (4.2-5.4) M/uL Hgb 9.8 L (12.0-16.0) g/dL Hct 30.3 L (37-47) % MCV 94.1 (80-100) fL MCH 30.4 (25-34) pg MCHC 32.3 (32-36) g/dL RDW Std Deviation 48.2 H (36.4-46.3) fL RDW Coeff of Gaston 14.0 (11.5-14.5) % Plt Count 249 (130-400) K/uL MPV 9.7 (7.4-10.4) fL Immature Gran % (Auto) 0.2 % Neut % (Auto) 75.7 % Lymph % (Auto) 14.5 % [place] % (Auto) 9.0 % Eos % (Auto) 0.3 % Baso % (Auto) 0.3 % Neut # (Auto) 4.64 (1.4-6.5) K/uL Lymph # (Auto) 0.89 L (1.2-3.4) K/uL [place] # (Auto) 0.55 (0.11-0.59) K/uL Eos # (Auto) 0.02 (0-0.5) K/uL Baso # (Auto) 0.02 (0-0.2) K/uL Immature Gran # (Auto) 0.01 (0.00-0.02) K/uL PT 12.6 H (9.0-12.0) Seconds INR 1.3 H (0.9-1.1) APTT (21.0-31.0) Seconds PTT Ratio Sodium 138 (136-145) mmol/L Potassium 4.2 (3.5-5.1) mmol/L Chloride 105 (98-107) mmol/L Carbon Dioxide 30 (21-32) mmol/L Anion Gap 3.0 (3-11) BUN 21 H (7-18) mg/dl Creatinine 0.93 (0.6-1.2) mg/dl Est Cr Clr Drug Dosing 48.8 ml/min Est GFR ( Amer) 66.8 ml/min Est GFR (Non-Af Amer) 57.6 ml/min BUN/Creatinine Ratio 22.9 H (10-20) Glucose 117 H (70-99) mg/dl POC Glucose (70-99) mg/dl Estimat Average Glucose mg/dl Hemoglobin A1c (4.5-5.6) % Calcium 7.9 L (8.5-10.1) mg/dl Magnesium 1.9 (1.8-2.4) mg/dl Total Bilirubin 0.4 (0.2-1) mg/dl AST 13 L (15-37) U/L ALT 11 L (12-78) U/L Alkaline Phosphatase 75 (45-117) U/L Troponin I < 0.015 (0-0.045) ng/ml NT-Pro-B Natriuret Pep (0-1800) pg/ml Total Protein 5.5 L (6.4-8.2) gm/dl Albumin 2.3 L (3.4-5.0) gm/dl Globulin 3.2 (2.5-4.0) gm/dl Albumin/Globulin Ratio 0.7 L (0.9-2) Lipase (73-393) U/L Procalcitonin (0-0.5) ng/ml TSH (0.300-4.500) uIu/ml Urine Color Urine Appearance (Clear) Urine pH (4.5-7.5) Ur Specific [place] (1.000-1.030) Urine Protein (Negative) Urine Glucose (UA) (Negative) Urine Ketones (Negative) Urine Blood (Negative) Urine Nitrite (Negative) Urine Bilirubin (Negative) Urine Urobilinogen (Negative) Ur Leukocyte Esterase (Negative) Urine WBC (Auto) (0-5) /hpf Urine RBC (Auto) (0-4) /hpf U Hyaline Cast (Auto) (0-5) /lpf U Epithel Cells (Auto) (0-5) /lpf Urine Bacteria (Auto) (Negative) Nasal Screen MRSA (PCR) (Negative) COVID-19 Eval Order SARS-CoV-2 (PCR) (Negative) 10/25/20 10/24/20 10/24/20 Range/Units 01:08 21:25 21:25 WBC (4.8-10.8) K/uL RBC (4.2-5.4) M/uL Hgb (12.0-16.0) g/dL Hct (37-47) % MCV (80-100) fL MCH (25-34) pg MCHC (32-36) g/dL RDW Std Deviation (36.4-46.3) fL RDW Coeff of Gaston (11.5-14.5) % Plt Count (130-400) K/uL MPV (7.4-10.4) fL Immature Gran % (Auto) % Neut % (Auto) % Lymph % (Auto) % [place] % (Auto) % Eos % (Auto) % Baso % (Auto) % Neut # (Auto) (1.4-6.5) K/uL Lymph # (Auto) (1.2-3.4) K/uL [place] # (Auto) (0.11-0.59) K/uL Eos # (Auto) (0-0.5) K/uL Baso # (Auto) (0-0.2) K/uL Immature Gran # (Auto) (0.00-0.02) K/uL PT (9.0-12.0) Seconds INR (0.9-1.1) APTT 69.6 H* (21.0-31.0) Seconds PTT Ratio 2.6 Sodium (136-145) mmol/L Potassium (3.5-5.1) mmol/L Chloride (98-107) mmol/L Carbon Dioxide (21-32) mmol/L Anion Gap (3-11) BUN (7-18) mg/dl Creatinine (0.6-1.2) mg/dl Est Cr Clr Drug Dosing ml/min Est GFR ( Amer) ml/min Est GFR (Non-Af Amer) ml/min BUN/Creatinine Ratio (10-20) Glucose (70-99) mg/dl POC Glucose (70-99) mg/dl Estimat Average Glucose mg/dl Hemoglobin A1c (4.5-5.6) % Calcium (8.5-10.1) mg/dl Magnesium (1.8-2.4) mg/dl Total Bilirubin (0.2-1) mg/dl AST (15-37) U/L ALT (12-78) U/L Alkaline Phosphatase (45-117) U/L Troponin I < 0.015 (0-0.045) ng/ml NT-Pro-B Natriuret Pep (0-1800) pg/ml Total Protein (6.4-8.2) gm/dl Albumin (3.4-5.0) gm/dl Globulin (2.5-4.0) gm/dl Albumin/Globulin Ratio (0.9-2) Lipase (73-393) U/L Procalcitonin 0.55 H (0-0.5) ng/ml TSH (0.300-4.500) uIu/ml Urine Color Urine Appearance (Clear) Urine pH (4.5-7.5) Ur Specific [place] (1.000-1.030) Urine Protein (Negative) Urine Glucose (UA) (Negative) Urine Ketones (Negative) Urine Blood (Negative) Urine Nitrite (Negative) Urine Bilirubin (Negative) Urine Urobilinogen (Negative) Ur Leukocyte Esterase (Negative) Urine WBC (Auto) (0-5) /hpf Urine RBC (Auto) (0-4) /hpf U Hyaline Cast (Auto) (0-5) /lpf U Epithel Cells (Auto) (0-5) /lpf Urine Bacteria (Auto) (Negative) Nasal Screen MRSA (PCR) (Negative) COVID-19 Eval Order SARS-CoV-2 (PCR) (Negative) 10/24/20 10/24/20 10/24/20 Range/Units 20:55 20:40 19:20 WBC (4.8-10.8) K/uL RBC (4.2-5.4) M/uL Hgb (12.0-16.0) g/dL Hct (37-47) % MCV (80-100) fL MCH (25-34) pg MCHC (32-36) g/dL RDW Std Deviation (36.4-46.3) fL RDW Coeff of Gaston (11.5-14.5) % Plt Count (130-400) K/uL MPV (7.4-10.4) fL Immature Gran % (Auto) % Neut % (Auto) % Lymph % (Auto) % [place] % (Auto) % Eos % (Auto) % Baso % (Auto) % Neut # (Auto) (1.4-6.5) K/uL Lymph # (Auto) (1.2-3.4) K/uL [place] # (Auto) (0.11-0.59) K/uL Eos # (Auto) (0-0.5) K/uL Baso # (Auto) (0-0.2) K/uL Immature Gran # (Auto) (0.00-0.02) K/uL PT (9.0-12.0) Seconds INR (0.9-1.1) APTT (21.0-31.0) Seconds PTT Ratio Sodium (136-145) mmol/L Potassium (3.5-5.1) mmol/L Chloride (98-107) mmol/L Carbon Dioxide (21-32) mmol/L Anion Gap (3-11) BUN (7-18) mg/dl Creatinine (0.6-1.2) mg/dl Est Cr Clr Drug Dosing ml/min Est GFR ( Amer) ml/min Est GFR (Non-Af Amer) ml/min BUN/Creatinine Ratio (10-20) Glucose (70-99) mg/dl POC Glucose 183 H (70-99) mg/dl Estimat Average Glucose mg/dl Hemoglobin A1c (4.5-5.6) % Calcium (8.5-10.1) mg/dl Magnesium (1.8-2.4) mg/dl Total Bilirubin (0.2-1) mg/dl AST (15-37) U/L ALT (12-78) U/L Alkaline Phosphatase (45-117) U/L Troponin I (0-0.045) ng/ml NT-Pro-B Natriuret Pep (0-1800) pg/ml Total Protein (6.4-8.2) gm/dl Albumin (3.4-5.0) gm/dl Globulin (2.5-4.0) gm/dl Albumin/Globulin Ratio (0.9-2) Lipase (73-393) U/L Procalcitonin (0-0.5) ng/ml TSH (0.300-4.500) uIu/ml Urine Color Yellow Urine Appearance Clear (Clear) Urine pH 5.0 (4.5-7.5) Ur Specific [place] 1.032 H (1.000-1.030) Urine Protein Negative (Negative) Urine Glucose (UA) Negative (Negative) Urine Ketones Negative (Negative) Urine Blood Trace H (Negative) Urine Nitrite Positive A (Negative) Urine Bilirubin Negative (Negative) Urine Urobilinogen Negative (Negative) Ur Leukocyte Esterase 2+ H (Negative) Urine WBC (Auto) >30 H (0-5) /hpf Urine RBC (Auto) 0-4 (0-4) /hpf U Hyaline Cast (Auto) 1-5 (0-5) /lpf U Epithel Cells (Auto) 5-10 H (0-5) /lpf Urine Bacteria (Auto) 4+ H (Negative) Nasal Screen MRSA (PCR) Negative (Negative) COVID-19 Eval Order SARS-CoV-2 (PCR) (Negative) 10/24/20 10/24/20 10/24/20 Range/Units 16:20 16:10 16:10 WBC (4.8-10.8) K/uL RBC (4.2-5.4) M/uL Hgb (12.0-16.0) g/dL Hct (37-47) % MCV (80-100) fL MCH (25-34) pg MCHC (32-36) g/dL RDW Std Deviation (36.4-46.3) fL RDW Coeff of Gaston (11.5-14.5) % Plt Count (130-400) K/uL MPV (7.4-10.4) fL Immature Gran % (Auto) % Neut % (Auto) % Lymph % (Auto) % [place] % (Auto) % Eos % (Auto) % Baso % (Auto) % Neut # (Auto) (1.4-6.5) K/uL Lymph # (Auto) (1.2-3.4) K/uL [place] # (Auto) (0.11-0.59) K/uL Eos # (Auto) (0-0.5) K/uL Baso # (Auto) (0-0.2) K/uL Immature Gran # (Auto) (0.00-0.02) K/uL PT (9.0-12.0) Seconds INR (0.9-1.1) APTT (21.0-31.0) Seconds PTT Ratio Sodium (136-145) mmol/L Potassium 4.3 (3.5-5.1) mmol/L Chloride (98-107) mmol/L Carbon Dioxide (21-32) mmol/L Anion Gap (3-11) BUN (7-18) mg/dl Creatinine (0.6-1.2) mg/dl Est Cr Clr Drug Dosing ml/min Est GFR ( Amer) ml/min Est GFR (Non-Af Amer) ml/min BUN/Creatinine Ratio (10-20) Glucose (70-99) mg/dl POC Glucose (70-99) mg/dl Estimat Average Glucose mg/dl Hemoglobin A1c (4.5-5.6) % Calcium (8.5-10.1) mg/dl Magnesium (1.8-2.4) mg/dl Total Bilirubin (0.2-1) mg/dl AST 16 (15-37) U/L ALT (12-78) U/L Alkaline Phosphatase (45-117) U/L Troponin I (0-0.045) ng/ml NT-Pro-B Natriuret Pep 8985 H (0-1800) pg/ml Total Protein (6.4-8.2) gm/dl Albumin (3.4-5.0) gm/dl Globulin (2.5-4.0) gm/dl Albumin/Globulin Ratio (0.9-2) Lipase (73-393) U/L Procalcitonin (0-0.5) ng/ml TSH 3.250 (0.300-4.500) uIu/ml Urine Color Urine Appearance (Clear) Urine pH (4.5-7.5) Ur Specific [place] (1.000-1.030) Urine Protein (Negative) Urine Glucose (UA) (Negative) Urine Ketones (Negative) Urine Blood (Negative) Urine Nitrite (Negative) Urine Bilirubin (Negative) Urine Urobilinogen (Negative) Ur Leukocyte Esterase (Negative) Urine WBC (Auto) (0-5) /hpf Urine RBC (Auto) (0-4) /hpf U Hyaline Cast (Auto) (0-5) /lpf U Epithel Cells (Auto) (0-5) /lpf Urine Bacteria (Auto) (Negative) Nasal Screen MRSA (PCR) (Negative) COVID-19 Eval Order Covid19 at [facility] SARS-CoV-2 (PCR) NEGATIVE (Negative) 10/24/20 10/24/20 10/24/20 Range/Units 15:11 15:11 15:11 WBC 7.34 (4.8-10.8) K/uL RBC 3.73 L (4.2-5.4) M/uL Hgb 11.5 L (12.0-16.0) g/dL Hct 35.7 L (37-47) % MCV 95.7 (80-100) fL MCH 30.8 (25-34) pg MCHC 32.2 (32-36) g/dL RDW Std Deviation 48.8 H (36.4-46.3) fL RDW Coeff of Gaston 14.1 (11.5-14.5) % Plt Count 301 (130-400) K/uL MPV 10.0 (7.4-10.4) fL Immature Gran % (Auto) 0.1 % Neut % (Auto) 87.3 % Lymph % (Auto) 6.4 % [place] % (Auto) 5.7 % Eos % (Auto) 0.4 % Baso % (Auto) 0.1 % Neut # (Auto) 6.40 (1.4-6.5) K/uL Lymph # (Auto) 0.47 L (1.2-3.4) K/uL [place] # (Auto) 0.42 (0.11-0.59) K/uL Eos # (Auto) 0.03 (0-0.5) K/uL Baso # (Auto) 0.01 (0-0.2) K/uL Immature Gran # (Auto) 0.01 (0.00-0.02) K/uL PT 11.8 (9.0-12.0) Seconds INR 1.2 H (0.9-1.1) APTT 25.2 (21.0-31.0) Seconds PTT Ratio 1.0 Sodium 139 (136-145) mmol/L Potassium (3.5-5.1) mmol/L Chloride 108 H (98-107) mmol/L Carbon Dioxide 26 (21-32) mmol/L Anion Gap 5.0 (3-11) BUN 21 H (7-18) mg/dl Creatinine 0.98 (0.6-1.2) mg/dl Est Cr Clr Drug Dosing 45.4 ml/min Est GFR ( Amer) 62.7 ml/min Est GFR (Non-Af Amer) 54.1 ml/min BUN/Creatinine Ratio 21.3 H (10-20) Glucose 162 H (70-99) mg/dl POC Glucose (70-99) mg/dl Estimat Average Glucose mg/dl Hemoglobin A1c (4.5-5.6) % Calcium 8.4 L (8.5-10.1) mg/dl Magnesium (1.8-2.4) mg/dl Total Bilirubin 0.4 (0.2-1) mg/dl AST (15-37) U/L ALT 18 (12-78) U/L Alkaline Phosphatase 95 (45-117) U/L Troponin I < 0.015 (0-0.045) ng/ml NT-Pro-B Natriuret Pep (0-1800) pg/ml Total Protein 6.8 (6.4-8.2) gm/dl Albumin 2.9 L (3.4-5.0) gm/dl Globulin 3.9 (2.5-4.0) gm/dl Albumin/Globulin Ratio 0.7 L (0.9-2) Lipase 57 L (73-393) U/L Procalcitonin (0-0.5) ng/ml TSH (0.300-4.500) uIu/ml Urine Color Urine Appearance (Clear) Urine pH (4.5-7.5) Ur Specific [place] (1.000-1.030) Urine Protein (Negative) Urine Glucose (UA) (Negative) Urine Ketones (Negative) Urine Blood (Negative) Urine Nitrite (Negative) Urine Bilirubin (Negative) Urine Urobilinogen (Negative) Ur Leukocyte Esterase (Negative) Urine WBC (Auto) (0-5) /hpf Urine RBC (Auto) (0-4) /hpf U Hyaline Cast (Auto) (0-5) /lpf U Epithel Cells (Auto) (0-5) /lpf Urine Bacteria (Auto) (Negative) Nasal Screen MRSA (PCR) (Negative) COVID-19 Eval Order SARS-CoV-2 (PCR) (Negative)
--- NOTE | 2020-10-25 13:22 | Electrocardiogram Report ---
Test Reason : Blood Pressure : / mmHG Vent. Rate : 075 BPM Atrial Rate : 072 BPM P-R Int : 000 ms QRS Dur : 118 ms QT Int : 412 ms P-R-T Axes : 000 -63 248 degrees QTc Int : 460 ms Atrial fibrillation with demand ventricular pacing and PVCs Left axis deviation Low voltage QRS Incomplete right bundle branch block Abnormal ECG When compared with ECG of 24-OCT-2020 17:00, (unconfirmed) Nonspecific T wave abnormality has replaced inverted T waves in Lateral leads Confirmed by Jesús Waters ([id number]) on 10/25/2020 1:21:35 PM Referred By: REFERRED SELF Confirmed By:Marcus Waters
[2020-10-25] MEDS ORDERED: Nursing to Pharmacy Communication SCH (15:30)
[2020-10-25] MEDS ORDERED: WARFARIN SOD 5 MG TAB PO ONE (16:00)
[2020-10-25] MEDS: cefTRIAXone SODIUM 2,000 MG in DEXTROSE 5% 50 ML IV SCH (16:42)
--- NOTE | 2020-10-25 18:33 | CT Scan Report ---
CT head/brain wo con CLINICAL HISTORY: 79 years-old Female with headache, on heparin drip. Acute headache TECHNIQUE: Multiple axial CT images of the head were obtained without contrast. A dose lowering tech nique was utilized adhering to the principles of ALARA. CT DOSE: 614.27 mGy.cm COMPARISON: Head CT 08/24/2020 FINDINGS: No acute intracranial hemorrhage, midline shift, intracranial mass, hydrocephalus, territorial ischem ia or abnormal extra-axial collection. Age-related involutional changes. White matter hypodensities s uggestive of chronic microvascular ischemic disease. Cerebral vascular infarct cerebral calcification s. The calvarium is intact. Prior bilateral lens repair. The paranasal sinuses, mastoid air cells, and m iddle ear cavities are clear. IMPRESSION: No acute intracranial abnormality. ACT 112: Negative or not required by law. The above report was generated using voice recognition software. It may contain grammatical, syntax o r spelling errors. Electronically signed by: Luis Nova M.D. 10/25/2020 6:31 PM
[2020-10-25 18:37] LABS: Partial Thromboplastin Ratio 2.4
[2020-10-25 18:47] LABS: Partial Thromboplastin Time 63.3 Seconds (21.0-31.0)
[2020-10-25] MEDS: METHENAMINE HIPPURATE 1 GM TAB PO SCH ×2 (20:31→20:34)
[2020-10-25] MEDS: HEPARIN SODIUM/DEXTROSE 25,000 UNITS/500 ML BAG IV SCH (21:28)
--- NOTE | 2020-10-25 23:00 | Anesthesiology Consultation ---
Date of Service October 25, 2020 Assessment & Plan (1) Encounter for pre-operative examination: Chart Review Chart Review: Acceptable Risk for Surgery and Patient NOT seen in Pre Admission Testing covid neg 10/24/20 Consults Requested none Cardiology consult 10/25/20: Assessment & Plan (1) Chest pain: (2) Valvular heart disease: (3) Abnormal EKG: (4) Acute UTI (urinary tract infection): (5) Acute on chronic heart failure with preserved ejection fraction (HFpEF): (6) S/P ureteral stent placement: (7) Pacemaker: (8) CAD (coronary artery disease): (9) Atrial fibrillation: Chest pain reproducible to palpation, this represents noncardiac chest pain. EKG performed upon presentation with patient in [place] rhythm, not paced as compared to previous EKG. This is her baseline EKG when she was in A. fib, no further cardiac testing intervention necessary at this time. Given the patient's frequent rehospitalizations and full CODE STATUS I will ask our palliative care colleagues to evaluate her for her goals of care. Okay to DC telemetry or to home from a cardiac standpoint. No medication changes at this time. History Surgery Operation Date: 10/26/20 07:00 Proposed Procedures p Esophagogastroduodenoscopy - Anushka Noguera MD Height/Weight Height: 5 ft 6 in Weight: 74 kg Allergies Allergy/AdvReac Type Severity Reaction Status Date / Time adhesive Allergy Unknown ADHESIVE Verified 10/24/20 15:42 TAPE Medications Home Medications Medication Instructions Recorded Confirmed Last Taken ferrous sulfate 325 mg (65 mg 325 mg PO BID 11/08/18 10/24/20 10/24/20 08:30 iron) tablet citalopram 40 mg tablet 40 mg PO QAM 03/13/19 10/24/20 10/24/20 08:30 levothyroxine 50 mcg tablet 50 mcg PO QAM 03/13/19 10/24/20 10/24/20 08:30 furosemide 20 mg tablet 20 mg PO QAM 10/10/19 10/24/20 10/24/20 08:30 cyanocobalamin (vitamin B-12) 1,000 mcg IM MONTHLY 02/18/20 10/24/20 10/14/20 08:30 1,000 mcg/mL injection solution clopidogrel 75 mg tablet 75 mg PO QAM 06/21/20 10/24/20 10/24/20 08:30 famotidine 20 mg tablet 20 mg PO QAM 06/21/20 10/24/20 10/24/20 08:30 warfarin 4 mg tablet 4 mg PO [id number] 06/21/20 10/24/20 10/23/20 17:00 Lactobacillus acidoph-L.bulgaricus 1 tab PO TIDM 07/27/20 10/24/20 10/24/20 12:00 1 million cell tablet (Floranex) methenamine hippurate 1 gram tablet 1 g PO HS 07/27/20 10/24/20 10/23/20 21:00 multivitamin (Daily-Nori) 1 tab PO DAILY 09/13/20 10/24/20 10/24/20 08:30 warfarin 2 mg tablet 2 mg PO .DAILY ON Fridays09/13/20 10/24/20 10/19/20 21:00 furosemide 20 mg tablet 20 mg PO 1700 PRN #10 tab 09/20/20 10/24/20 Unknown insulin glargine 100 unit/mL (3 8 unit SUBCUT DAILY 10/24/20 10/24/20 10/24/20 08:30 mL) subcutaneous pen (Lantus Solostar U-100 Insulin) metoprolol succinate 25 mg 12.5 mg PO DAILY 10/24/20 10/24/20 10/23/20 14:00 tablet,extended release 24 hr nut.tx.glucose intolerance,soy 1 ea PO BID 10/24/20 10/24/20 10/24/20 08:30 potassium chloride 10 mEq 10 meq PO BID 10/24/20 10/24/20 10/24/20 08:30 tablet,extended release(part/cryst) (Klor-Con M) Active Medications Generic Name Dose Route Start Last Admin Trade Name Freq PRN Reason Stop Dose Admin Acetaminophen 650 mg 10/24/20 20:30 10/25/20 16:41 Acetaminophen 325 Mg Tab PO 11/23/20 20:29 650 mg Q4H PRN Administration Pain or Fever Citalopram Hydrobromide 40 mg 10/25/20 09:00 10/25/20 08:04 Citalopram 40 Mg Tab PO 11/24/20 08:59 40 mg QAM SYED Administration Clopidogrel Bisulfate 75 mg 10/25/20 09:00 10/25/20 08:04 Clopidogrel Bisulfate 75 Mg Tab PO 11/24/20 08:59 75 mg QAM SYED Administration Famotidine 20 mg 10/25/20 09:00 10/25/20 08:04 Famotidine 20 Mg Tab PO 11/24/20 08:59 20 mg QAM SYED Administration Ferrous Sulfate 325 mg 10/24/20 21:00 10/25/20 20:34 Ferrous Sulfate 325 Mg Tab PO 11/23/20 20:59 Not Given BID SYED Heparin Sodium/Dextrose 25,000 units in 500 mls @ 20 mls/hr 10/24/20 18:00 10/25/20 21:28 Heparin Sodium/Dextrose IV 11/23/20 17:59 1,000 units/hr .Q24H SYED 20 mls/hr Administration Protocol 1,000 UNITS/HR Ceftriaxone Sodium 2,000 mg/ 70 mls @ 100 mls/hr 10/25/20 18:00 10/25/20 17:22 Dextrose IV 10/30/20 17:59 Infused Q24H SYED Infusion Protocol Insulin Aspart 0 units 10/24/20 21:00 10/25/20 20:29 Insulin Aspart 100 Units/Ml 3 Ml Pen SC 11/23/20 20:59 Not Given ACHS SYED Insulin Glargine 0 units 10/25/20 09:00 10/25/20 08:05 Insulin Glargine Solostar 100 Units/Ml 3 Ml Pen SC 11/24/20 08:59 Not Given DAILY SYED Lactobacillus Acidoph/Casei/Rhamnos 2 cap 10/25/20 09:00 10/25/20 08:04 Advanced Probiotic 1250 Mg Capsule PO 11/24/20 08:59 2 cap DAILY SYED Administration Levothyroxine Sodium 50 mcg 10/25/20 06:30 10/25/20 21:30 Levothyroxine Sodium 50 Mcg Tablet PO 11/24/20 06:29 Not Given DAILYBB SYED Methenamine Hippurate 1 gm 10/24/20 21:00 10/25/20 20:34 Methenamine Hippurate 1 Gm Tab PO 11/23/20 20:59 Not Given HS SYED Metoprolol Succinate 12.5 mg 10/25/20 09:00 10/25/20 08:04 Metoprolol Succ 25mg Ext Rel Tab PO 11/24/20 08:59 12.5 mg DAILY SYED Administration Multivitamins 1 tab 10/25/20 09:00 10/25/20 08:04 Multivitamin Tab PO 11/24/20 08:59 1 tab DAILY SYED Administration Potassium Chloride 10 meq 10/24/20 21:00 10/25/20 20:34 Potassium Chloride 10 Meq Tabcr PO 11/23/20 20:59 Not Given BID SYED Past Medical History Medical History Anemia Aortic root dilatation 4.4 cm on echo 01/2019 Aortic root normal size on 02/2020 ECHO Asthma Atrial fibrillation Bifascicular block CAD (coronary artery disease) "1995 - PTCA and stenting of RCA 07/2011 - atherectomy and stenting RCA 12/2011- AZALIA to the mid LAD 2016-Cobra stent to mid LAD 2017-AZALIA to ostial diagonal Calculus of distal left ureter Closed fracture of left hip February 2020trochanteric nail placed by Ortho Congestive heart failure Depression DM type 2 (diabetes mellitus, type 2) Dyslipidemia GERD (gastroesophageal reflux disease) Hypertension Hypothyroidism HOMERO (iron deficiency anemia) Macular degeneration MDS (myelodysplastic syndrome) Mild aortic stenosis Per 02/19/20 ECHO- ASHLEY 1.84 cm; AV max velocity 2.491 m/s; AV mean PG 13.6 mmHg Mitral stenosis Moderate per 02/2020 ECHO Pacemaker Sinus node dysfunction VRE (vancomycin resistant enterococcus) culture positive Past Family History Family History Father Colorectal cancer Sister Lung cancer Diabetes Brother Diabetes Mother Diabetes Past Surgical History Surgical History History of angioplasty History of arthroscopy of knee History of arthroscopy of shoulder History of cholecystectomy History of gastric bypass History of incisional hernia repair History of partial hysterectomy History of tonsillectomy laser litho 08/03: LMA #4. Tolerated GA without apparent anesthesia complica tions. Social History Smoking Status: Never smoker Hx Alcohol Use: Yes Alcohol type: wine alcohol intake frequency: holidays/special occasions only Hx Substance Use: No substance use type: does not use Physical Exam Vital Signs Last Vital Signs Temp 36.9 C 10/25/20 19:17 Pulse 66 10/25/20 19:17 Resp 20 10/25/20 19:17 BP 120/64 10/25/20 19:17 Pulse Ox 97 10/25/20 19:17 Testing Laboratory Results 10/25/20 03:11 10/25/20 03:11 PT 12.6 Seconds (9.0-12.0) H 10/25/20 03:11 INR 1.3 (0.9-1.1) H 10/25/20 03:11 APTT 63.3 Seconds (21.0-31.0) H* 10/25/20 17:39 Hemoglobin A1c 5.6 % (4.5-5.6) 10/25/20 03:11 Urine Color Yellow 10/24/20 19:20 Urine Appearance Clear (Clear) 10/24/20 19:20 Urine pH 5.0 (4.5-7.5) 10/24/20 19:20 Ur Specific [place] 1.032 (1.000-1.030) H 10/24/20 19:20 Urine Protein Negative (Negative) 10/24/20 19:20 Urine Glucose (UA) Negative (Negative) 10/24/20 19:20 Urine Ketones Negative (Negative) 10/24/20 19:20 Urine Nitrite Positive (Negative) A 10/24/20 19:20 Ur Leukocyte Esterase 2+ (Negative) H 10/24/20 19:20 Urine WBC (Auto) >30 /hpf (0-5) H 10/24/20 19:20 Urine RBC (Auto) 0-4 /hpf (0-4) 10/24/20 19:20 U Hyaline Cast (Auto) 1-5 /lpf (0-5) 10/24/20 19:20 U Epithel Cells (Auto) 5-10 /lpf (0-5) H 10/24/20 19:20 Urine Bacteria (Auto) 4+ (Negative) H 10/24/20 19:20 10/24/20 19:20 Urine Culture - Preliminary Urine,Straight Cath Gram negative bacilli 10/25/20 10/25/20 10/25/20 20:27 16:07 11:24 POC Glucose 110 H 116 H 138 H Electrocardiogram Date: 10/24/20 DICTATED BY: Jesús Waters MD Test Reason : Blood Pressure : / mmHG Vent. Rate : 075 BPM Atrial Rate : 072 BPM P-R Int : 000 ms QRS Dur : 118 ms QT Int : 412 ms P-R-T Axes : 000 -63 248 degrees QTc Int : 460 ms Atrial fibrillation with demand ventricular pacing and PVCs Left axis deviation Low voltage QRS Incomplete right bundle branch block Abnormal ECG When compared with ECG of 24-OCT-2020 17:00, (unconfirmed) Nonspecific T wave abnormality has replaced inverted T waves in Lateral leads Confirmed by Jesús Waters ([id number]) on 10/25/2020 1:21:35 PM Echocardiogram Date: 09/14/20 LV normal in size. Moderate LVH Apical wall motion abnormality may reflect pacemaker activation. No RWMA EF 65-70% Mild to moderate MR LA severely dialted mod to severe tricuspid regurg. Mild . Other Testing CT chest 10/24/20: IMPRESSION: 1. Streak and motion compromised examination. 2. There is no evidence of pulmonary embolus in the main, lobar, or segmental pulmonary arteries. 3. Cardiomegaly and cardiac pacemaker. Mild intralobular septal thickening could be seen with acute versus chronic congestive failure and clinical correlation will be required. 4. There are small to moderate pleural effusions with dependent consolidation. This likely represents atelectasis. Correlate clinically for evidence of superimposed pneumonia. 5. There is mild aneurysmal dilatation of the ascending thoracic aorta which measures up to 4.1 cm in diameter. 6. The esophagus is distended and patulous, and filled with fluid to the level of the thoracic inlet. Note that this may place the patient at risk for aspiration. 7. Circumferential wall thickening is noted at the gastroesophageal junction. Correlate clinically for evidence of esophagitis. This could be further assessed with endoscopy if clinically warranted to assess for obstructing lesion. 8. Additional findings as above
[2020-10-26 06:06] LABS: Hematocrit (blood only) 31.6 % (37-47); Hemoglobin 10.3 g/dL (12.0-16.0); Mean Corpuscular Hemoglobin 30.4 pg (25-34); Mean Corpuscular Hgb Conc 32.6 g/dL (32-36); Mean Corpuscular Volume 93.2 fL (80-100); Platelet Count 245 K/uL (130-400); RDW Coefficient of Variation 13.6 % (11.5-14.5); RDW Standard Deviation 46.7 fL (36.4-46.3); Red Blood Count 3.39 M/uL (4.2-5.4); White Blood Count 4.49 K/uL (4.8-10.8)
[2020-10-26] MEDS: INSULIN ASPART 100 UNITS/ML 3 ML PEN SC SCH ×4 (07:50→21:33)
[2020-10-26] MEDS: INSULIN GLARGINE SOLOSTAR 100 UNITS/ML 3 ML PEN SC SCH (07:51)
--- NOTE | 2020-10-26 08:36 | Communication Note ---
Date of Service: October 26, 2020 Remains NPO for EGD in OR. AC on hold. Attg add: I interviewed and examined pt, reviewed chart and labs.
--- NOTE | 2020-10-26 11:53 | Palliative Care Consultation ---
Date of Consultation October 26, 2020 Assessment & Plan (1) Chest pain: Unclear etiology with EKG changes, normal troponin and esophageal abnormality. EGD later today. (2) Acute flank pain: History of renal calculi. No calculi or obstruction noted on CT. (3) Palliative care encounter: I talked with Mrs. Palomo. She is not capable of decision making at this time. I did ask her if she had ever thought about what she would want for her care and she told me that she was "going to a home". I asked if she had chosen someone to make decisions for her care if she were unable to do so. She told me that she hadn't. The chart indicates that she has an advance directive and that her son, Jose Palomo, is her POA. There does not appear to be a copy of the document in the chart. At this time, her workup is still in progress. I will contact her son, Jose, after results of EGD to discuss his thoughts on goals of care. Palliative care will follow. (4) Abnormality of esophagus: (5) Chronic heart failure with preserved ejection fraction (HFpEF): (6) Atrial fibrillation: History of Present Illness Reason for Consultation: goals of care Requesting Physician: Dr. Thomas Attending Physician: Shelby Cole MD History of Present Illness 79 yo lady admitted with right flank pain who also complained of right chest pain. CT of chest, abdomen, and pelvis were generally unremarkable other than circumferential thickening of the distal esophagus with fluid noted in the distal esophagus. She did not have elevated troponin but had some lateral T wave inversion on EKG. She does have a history of afib and heart failure. Afib is rate controlled and she is on anticoagulation. She is currently NPO and scheduled for EGD today. Mrs. Palomo has variable mental status and is confused this morning. She tells me that she has to go to the hospital tomorrow for surgery. She apparently lives at [facility] and tells me that she had been living on her own but didn't want to be a bother to her sons so she is "going to live in a home". She complains of a frontal headache this morning but denies abdominal, flank or chest pain. She denies dyspnea or nausea. We have been consulted to assist with goals of care. Allergies Allergy/AdvReac Type Severity Reaction Status Date / Time adhesive Allergy Unknown ADHESIVE Verified 10/24/20 15:42 TAPE Home Medications Medication Instructions Recorded Confirmed Type ferrous sulfate 325 mg (65 mg 325 mg PO BID 11/08/18 10/24/20 History iron) tablet citalopram 40 mg tablet 40 mg PO QAM 03/13/19 10/24/20 History levothyroxine 50 mcg tablet 50 mcg PO QAM 03/13/19 10/24/20 History furosemide 20 mg tablet 20 mg PO QAM 10/10/19 10/24/20 History cyanocobalamin (vitamin B-12) 1,000 mcg IM MONTHLY 02/18/20 10/24/20 History 1,000 mcg/mL injection solution clopidogrel 75 mg tablet 75 mg PO QAM 06/21/20 10/24/20 History famotidine 20 mg tablet 20 mg PO QAM 06/21/20 10/24/20 History warfarin 4 mg tablet 4 mg PO [id number] 06/21/20 10/24/20 History Lactobacillus acidoph-L.bulgaricus 1 tab PO TIDM 07/27/20 10/24/20 History 1 million cell tablet (Floranex) methenamine hippurate 1 gram tablet 1 g PO HS 07/27/20 10/24/20 History multivitamin (Daily-Nori) 1 tab PO DAILY 09/13/20 10/24/20 History warfarin 2 mg tablet 2 mg PO .DAILY ON Fridays09/13/20 10/24/20 History furosemide 20 mg tablet 20 mg PO 1700 PRN #10 tab 09/20/20 10/24/20 Rx insulin glargine 100 unit/mL (3 8 unit SUBCUT DAILY 10/24/20 10/24/20 History mL) subcutaneous pen (Lantus Solostar U-100 Insulin) metoprolol succinate 25 mg 12.5 mg PO DAILY 10/24/20 10/24/20 History tablet,extended release 24 hr nut.tx.glucose intolerance,soy 1 ea PO BID 10/24/20 10/24/20 History potassium chloride 10 mEq 10 meq PO BID 10/24/20 10/24/20 History tablet,extended release(part/cryst) (Klor-Con M) Patient History Medical History Anemia Aortic root dilatation 4.4 cm on echo 01/2019 Aortic root normal size on 02/2020 ECHO Asthma Atrial fibrillation Bifascicular block CAD (coronary artery disease) "1995 - PTCA and stenting of RCA 07/2011 - atherectomy and stenting RCA 12/2011- AZALIA to the mid LAD 2016-Cobra stent to mid LAD 2017-AZALIA to ostial diagonal Calculus of distal left ureter Closed fracture of left hip February 2020trochanteric nail placed by Ortho Congestive heart failure Depression DM type 2 (diabetes mellitus, type 2) Dyslipidemia GERD (gastroesophageal reflux disease) Hypertension Hypothyroidism HOMERO (iron deficiency anemia) Macular degeneration MDS (myelodysplastic syndrome) Mild aortic stenosis Per 02/19/20 ECHO- ASHLEY 1.84 cm; AV max velocity 2.491 m/s; AV mean PG 13.6 mmHg Mitral stenosis Moderate per 02/2020 ECHO Pacemaker Sinus node dysfunction VRE (vancomycin resistant enterococcus) culture positive Surgical History History of angioplasty History of arthroscopy of knee History of arthroscopy of shoulder History of cholecystectomy History of gastric bypass History of incisional hernia repair History of partial hysterectomy History of tonsillectomy Family History Father Colorectal cancer Sister Lung cancer Diabetes Brother Diabetes Mother Diabetes Social History Smoking Status: Never smoker Second Hand Exposure: No; Hx Alcohol Use: Yes Alcohol type: wine Hx Substance Use: No Preferred Language: Bahamian Communication Ability: Effective Visual Impairment: No Limitations Hearing Ability: Normal Personnel Research Psychologist Required: No Beliefs That Will Affect Care: None marital status: / Current Living Situation: Family Current Living Situation Comment: son and grandaughter current occupational status: retired How many Children do You have: 3 Other Information That Helps Us Care for You: No Feels Safe at Home: Yes Safety Concerns: Feels Safe At This Time Assistive Devices: Denture - Upper, Denture - Lower, Glasses, Hearing Aid - Bilateral and Walker Review of Systems Review of Systems: [place] Symptom Assessment Scale Pain 1/3 Dyspnea 0/3 Nausea 0/3 Anxiety 1/3 Drowsiness 0/3 Palliative Performance Score 50% Physical Exam Constitutional: no acute distress Respiratory: normal respiratory effort; no labored breathing Cardiovascular: Rate/Rhythm: + irregularly irregular Gastrointestinal (Abdomen): obese, nontender Neurologic: awake and + confused Results & Data ([facility]) Vital Signs (Past 12 Hours) Vital Signs Temp Pulse Pulse Resp BP Pulse Ox 10/26/20 08:01 99.1 F 63 74 24 117/64 95 10/26/20 03:38 98.2 F 70 24 133/61 97 PG Care Time/CCT Total # of Minutes Spent Total Time Spent with Patient: Total time spent is greater than 50% in coordination of care (as documented) at patient's floor/unit and/or counseling patient: Coding Level of Care Code 54715 Initial Inpt Care Lvl 1 Diagnoses Chest pain R07.9 Acute flank pain R10.9 Palliative care encounter Z51.5 Abnormality of esophagus K22.9 Chronic heart failure with preserved ejection fraction (HFpEF) I50.32 Atrial fibrillation I48.91
[2020-10-26] MEDS ORDERED: ACETAMINOPHEN 1000 MG/100 ML IV IV ONE (12:00)
[2020-10-26] MEDS: POTASSIUM CHLORIDE 10 MEQ TABCR PO SCH ×2 (13:51→19:38)
[2020-10-26] MEDS: ADVANCED PROBIOTIC 1250 MG CAPSULE PO SCH (13:51)
[2020-10-26] MEDS: FERROUS SULFATE 325 MG TAB PO SCH ×2 (13:52→19:37)
--- NOTE | 2020-10-26 14:01 | Cardiology Progress Note ---
Date of Service October 26, 2020 Assessment & Plan (1) Chest pain: (2) Valvular heart disease: (3) Abnormal EKG: (4) Acute UTI (urinary tract infection): (5) Acute on chronic heart failure with preserved ejection fraction (HFpEF): (6) S/P ureteral stent placement: (7) Pacemaker: (8) CAD (coronary artery disease): (9) Atrial fibrillation: Plan: Chest pain reproducible to palpation, this represents noncardiac chest pain. EKG performed upon presentation with patient in [place] rhythm, not paced as compared to previous EKG. This is her baseline EKG when she was in A. fib, no further cardiac testing intervention necessary at this time. Given the patient's frequent rehospitalizations and full CODE STATUS I will ask our palliative care colleagues to evaluate her for her goals of care. Okay to DC telemetry or to home from a cardiac standpoint. No medication changes at this time. Admission and Anticipated Discharge Date Admission Date: October 25, 2020 Subjective Patient seen and examined, much more confused today does not offer complaints. No events reported overnight nursing Review of Systems Review of Systems: Unobtainable due to cognitive status Physical Exam Physical Exam: General: Awake, alert and oriented x 3. No acute distress. HEENT: Normocephalic, atraumatic. Pupils equal, round and reactive to light and accommodation. Extraocular muscles are intact. Anicteric sclera. Moist mucous membranes. Neck: No JVD. No bruit. Cardiovascular: Regular. Positive S-4. Normal S-1 and S-2. No S-3. 3/6 mid to late systolic ejection murmur, greatest at the right sternal border, second intercostal space with radiation to the bilateral carotids. No rubs. Pulmonary: Clear to auscultation bilaterally. No rales, rhonchi, or wheezing. Abdomen: Bowel sounds x 4, soft. No rebound, guarding or tenderness. No organomegaly. Extremities: No clubbing, cyanosis or edema. +2 pedal pulses bilaterally. Skin: Warm and dry. Results & Data ([facility]) Vital Signs (Past 12 Hours) Vital Signs Temp Pulse Pulse Resp BP Pulse Ox 10/26/20 12:00 37.2 C 64 20 123/55 L 95 10/26/20 08:01 37.3 C 63 74 24 117/64 95 10/26/20 03:38 36.8 C 70 24 133/61 97 (1) CAD (coronary artery disease) Coronary Disease-Associated Artery/Lesion type: [place] artery [place] vs. transplanted heart: [place] heart Associated angina: without angina Qualified Code(s): I25.10 - Atherosclerotic heart disease of [place] coronary artery without angina pectoris
[2020-10-26] MEDS ORDERED: BOTULINUM TOXIN TYPE A 100 UNIT VIAL XX ONE (14:08)
[2020-10-26] MEDS ORDERED: DEXAMETHASONE SOD INJ 4 MG/ML VIAL ONE (14:57)
[2020-10-26] MEDS ORDERED: LIDOCAINE 2% 2 ML VIAL/AMP(20MG/ML) INFIL ONE (14:57)
[2020-10-26] MEDS ORDERED: fentaNYL citrate 100 MCG/2 ML VIAL ONE (14:57)
[2020-10-26] MEDS ORDERED: ATROPINE SULFATE 0.1 MG/ML 10ML SYR IV PRN (14:57)
[2020-10-26] MEDS ORDERED: SUCCINYLCHOLINE 100MG/5ML SYR IV ONE (14:57)
[2020-10-26] MEDS ORDERED: ROCURONIUM BROMIDE 10 MG/ML 5 ML VIAL IV ONE (14:57)
[2020-10-26] MEDS ORDERED: ONDANSETRON INJ 2 MG/ML 2 ML VIAL IV PRN (14:57)
[2020-10-26] MEDS ORDERED: ONDANSETRON INJ 2 MG/ML 2 ML VIAL ONE (14:58)
--- NOTE | 2020-10-26 15:45 | History & Physical Bridge Note ---
Date of Service October 26, 2020 History & Physical Bridge Note I have examined the patient, reviewed the History & Physical and in the interval since the performance of the History & Physical I have noted the following changes of clinical significance: no changes noted. Long d/w pt pt and sone regarding risks of EGD and possible botox injxn, including risks of bleeding, ulceration, neuromusc blockade. She agrees with foregoing manometric dx of achalasia and trialof botox if EGD findings compatible with this.
--- NOTE | 2020-10-26 16:41 | GI REPORT ---
Patient Name: Maritza Palomo Procedure Date: 10/26/2020 2:45 PM Date of : 1940 Admit Type: Inpatient Age: 79 Gender: Female Attending MD: Anushka Noguera MD Procedure: Upper GI endoscopy Providers: Anushka Noguera MD Referring MD: Shelby Cole Md Indications: Dysphagia, Abnormal CT of the GI tract Medicines: See the Anesthesia note for documentation of the administered medications Complications: No immediate complications. Estimated Blood Loss: Estimated blood loss: none. Procedure: Pre-Anesthesia Assessment: - ASA Grade Assessment: III - A patient with severe systemic disease. After obtaining informed consent, the endoscope was passed under direct vision. Throughout the procedure, the patient's blood pressure, pulse, and oxygen saturations were monitored continuously. The Endoscope was introduced through the mouth, and advanced to the proximal jejunum. The upper GI endoscopy was accomplished without difficulty. The patient tolerated the procedure well. Findings: As seen on the CT, the upper esophagus markedlly dilated, and peristalsis appeared diminished. There was a moderate amount of fluid in the esophagus. GE junction was at 40 cm. There was a single erosion at the GE junction < 5 mm. The LES was patulous and wide open. There was no obstruction throughout the esophagus. There were post operative changes consistent with gastric bypass. The gastroenteric anastamosis was unremarkable. There was ulceration and suture material at the anastamosis. There was pseudomelanosis in the small intestine. The small intestine was entirely normal. 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 Recommendation: - Discharge patient to floor. Resume full liquids. Axel Rosario MD 10/26/2020 4:41:30 PM This report has been signed electronically. Note Initiated On: 10/26/2020 2:45 PM Number of Addenda: 0 I attest to the content of the Intraoperative Record and orders documented therein, exceptions below {[id number]}
--- NOTE | 2020-10-26 16:44 | Anesthesiology Progress Note ---
Date of Service October 26, 2020 Anesthesia Post Procedure Vital Signs Vital Signs: Temp Pulse Pulse Resp BP BP Pulse Ox 10/26/20 14:18 37.1 C 76 20 102/63 97 10/26/20 12:00 37.2 C 64 20 123/55 L 95 10/26/20 08:01 37.3 C 63 74 24 117/64 95 10/26/20 03:38 36.8 C 70 24 133/61 97 10/25/20 23:43 63 18 135/59 L 91 10/25/20 19:17 36.9 C 66 20 120/64 97 10/25/20 19:16 68 19 120/64 93 Transfer of Care Handoff Completed per policy Notes Mental Status: alert / awake / arousable Patient Amnestic to Procedure: Yes Nausea / Vomiting: adequately controlled Pain: adequately controlled Airway Patency, RR, SpO2: stable & adequate BP & HR: stable & adequate Hydration State: stable & adequate Anesthetic Complications: no major complications apparent and Pt Satisfied with anesthetic care Notes: The patient is awake and comfortable. She is back in her ICU room.
--- NOTE | 2020-10-26 16:45 | Hospitalist Progress Note ---
Date of Service October 26, 2020 Assessment & Plan (1) Abnormality of esophagus: (2) Subtherapeutic international normalized ratio (INR): (3) Acute UTI (urinary tract infection): Plan: 79 yo F w/ PMH of CAD, chronic HFpEF, persistent A. fib anticoagulated on warfarin, renal stone and urosepsis in June 2020, T2DM, HTN, HLD, SSS status post PPM, hypothyroidism, valvular heart disease with mild aortic stenosis and moderate mitral stenosis, MDS presented to ED 10/24 from [facility] w/ acute onset right sided flank pain. She received fentanyl in ED. Later on she complained of Rt sided non radiating chest pain, dull, 05/23, a/w SOB. Being managed for the following: #. Chest pain/Rt Flank pain #. Subtherapeutic INR #. Permanent Afib h/o CAD EKG: anterolateral T wave inversions with a negative troponinx3 Takes coumadin at home (home regimen 2 mg on Thursday, 4 mg all other days), concern for noncompliance, was on IV heparin drip owing to subtherapeutic INR prior to EGD. Admitting CTA chest negative for PE. Admitting CTAP negative for renal calculi/obstructive uropathy. echo 09/2020 EF 65 to 70%, mild aortic valve stenosis, moderate mitral valve stenosis, LA severely dilated, RVSP 40 to 50 mmHg Troponin x3 - Cardiology on board: Likely noncardiac chest pain, no further intervention at this time. Okay to DC telemetry or to home from cardiac standpoint. No medication changes at this time. Palliative care consulted to discuss goals of care. Transfer to floor with no telemetry. We will resume her home warfarin. #. Esophagitis versus esophageal obstruction #. Thoracic ascending aorta aneurysm Admitting CTAP: Cardiomegaly and cardiac pacemaker. Small to moderate pleural effusion with dependent consolidation. Mild aneurysmal dilation of the thoracis ascending aorta approximately 4.1 cm. Esophagus is distended and patulous, and pelvic tilt to the level of thoracic inlet, increasing the risk of aspiration for patient. Circumferential wall thickening at GE junction which can likely be obstructive lesion for the above findings. 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 Patient started on full liquids per GI. Advance diet as tolerated. #. Mild CHF exacerbation #. CAD Recent hospitalization in September 2020 for acute decompensation of CHF in the setting of viral heart disease and hypoalbuminemia Admitting CXR: Mild interstitial pulmonary edema and small bilateral pleural effusion. proBNP elevated at 8985. Recent echosee above Clinically patient appears stable and euvolemic. Patient on room air, continue to monitor. Will resume Lasix once she is tolerating her diet, maybe tomorrow C/W home medications #. UTI No fever or high WBC so far Urine analysis concerning, pro-Coy 0.55, patient is started on Rocephin empirically Preliminary urinary culture shows gram-negative bacilli. Awaiting blood culture Follow-up with final culture. Continue with Rocephin, will stop after tomorrows dose. #. DM 2 last a1c 6.6 06/22/20 A1c 5.6 this admission [October 2020] lantus/novolog per protocol #. Hypoalbuminemia consult dietitian, possibly contributing to volume overload #. Anemia monitor cbc, h/h stable likely chronic, on b12 and iron supplementation Disposition: We will get PT/OT involved. Palliative care on board. [facility] when medically stable. . Admission and Anticipated Discharge Date Admission Date: October 25, 2020 Subjective Patient was lying semiupright in bed, on room air, NAD, no issues overnight. Denies fever/chills/dizziness/chest pain/palpitations/cough/skin rash/acute changes in bowel or bladder habit. Denies any flank pain or chest pain. She states that she wants to eat. She is n.p.o. for EGD today. She states that she has chronic headache. Physical Exam Physical Exam: GENERAL: Alert and oriented x3. NAD, on RA. HEENT: No pallor, no icterus. Pupils equal, round and reactive to light. Oral mucosa moist. NECK: No JVD, no neck masses. HEART: S1 and S2 heard. Regular rate and rhythm. Murmur over aortic and pulmonic area, no gallop. RESPIRATORY SYSTEM: Normal AP diameter. No accessory muscle use. No wheezing, no crackles. ABDOMEN: Soft, bowel sounds present, nontender, no distention. CENTRAL NERVOUS SYSTEM: Alert and oriented x3. No facial droop. Speech is clear. Obeys simple commands. Moves extremities. EXTREMITIES: No edema, no erythema seen. Results & Data Results & Data ([facility]) Vital Signs (Past 12 Hours) Vital Signs Temp Pulse Pulse Resp BP Pulse Ox 10/26/20 14:18 37.1 C 76 20 102/63 97 10/26/20 12:00 37.2 C 64 20 123/55 L 95 10/26/20 08:01 37.3 C 63 74 24 117/64 95
[2020-10-26] MEDS: CLOPIDOGREL BISULFATE 75 MG TAB PO SCH (17:25)
[2020-10-26] MEDS: CITALOPRAM 40 MG TAB PO SCH (17:25)
[2020-10-26] MEDS: METOPROLOL SUCC 25MG EXT REL TAB PO SCH (17:25)
[2020-10-26] MEDS: FAMOTIDINE 20 MG TAB PO SCH (17:25)
[2020-10-26] MEDS: MULTIVITAMIN TAB PO SCH (17:26)
[2020-10-26] MEDS: cefTRIAXone SODIUM 2,000 MG in DEXTROSE 5% 50 ML IV SCH (17:28)
[2020-10-26] MEDS ORDERED: WARFARIN SOD 2 MG TAB PO SCH (17:30)
[2020-10-26] MEDS: METHENAMINE HIPPURATE 1 GM TAB PO SCH (19:37)
[2020-10-27 00:17] LABS: Partial Thromboplastin Ratio 1.1; Partial Thromboplastin Time 28.1 Seconds (21.0-31.0)
[2020-10-27] MEDS: LEVOTHYROXINE SODIUM 50 MCG TABLET PO SCH (06:05)
[2020-10-27 06:06] LABS: Hematocrit (blood only) 34.1 % (37-47); Hemoglobin 11.1 g/dL (12.0-16.0); Mean Corpuscular Hgb Conc 32.6 g/dL (32-36); Mean Corpuscular Volume 92.2 fL (80-100); Mean Platelet Volume 10.3 fL (7.4-10.4); Platelet Count 247 K/uL (130-400); RDW Coefficient of Variation 13.4 % (11.5-14.5); RDW Standard Deviation 44.9 fL (36.4-46.3); White Blood Count 4.21 K/uL (4.8-10.8)
[2020-10-27 06:16] LABS: INR 1.1 (0.9-1.1); Prothrombin Time 10.7 Seconds (9.0-12.0)
[2020-10-27 06:46] LABS: BUN Creatinine Ratio 22.4 (10-20); Calcium 8.7 mg/dl (8.5-10.1); Creatinine Clr Calc Pharmacy 64.9 ml/min; Est GFR (African American) 94.2 ml/min; Est GFR (Non-African American) 81.3 ml/min; Magnesium 2.1 mg/dl (1.8-2.4); Potassium 4.6 mmol/L (3.5-5.1)
[2020-10-27] MEDS: METOPROLOL SUCC 25MG EXT REL TAB PO SCH (08:26)
[2020-10-27] MEDS: CITALOPRAM 40 MG TAB PO SCH (08:27)
[2020-10-27] MEDS: FAMOTIDINE 20 MG TAB PO SCH (08:27)
[2020-10-27] MEDS: ADVANCED PROBIOTIC 1250 MG CAPSULE PO SCH (08:27)
[2020-10-27] MEDS: CLOPIDOGREL BISULFATE 75 MG TAB PO SCH (08:27)
[2020-10-27] MEDS: MULTIVITAMIN TAB PO SCH (08:27)
[2020-10-27] MEDS: POTASSIUM CHLORIDE 10 MEQ TABCR PO SCH ×2 (08:27→20:25)
[2020-10-27] MEDS: FERROUS SULFATE 325 MG TAB PO SCH ×2 (08:28→20:26)
[2020-10-27] MEDS: INSULIN ASPART 100 UNITS/ML 3 ML PEN SC SCH ×4 (08:31→20:24)
[2020-10-27] MEDS: INSULIN GLARGINE SOLOSTAR 100 UNITS/ML 3 ML PEN SC SCH (08:31)
[2020-10-27] MEDS: WARFARIN SOD 4 MG TAB PO SCH (17:13)
--- NOTE | 2020-10-27 17:39 | Hospitalist Progress Note ---
Date of Service October 27, 2020 Assessment & Plan (1) Abnormality of esophagus: (2) Subtherapeutic international normalized ratio (INR): (3) Acute UTI (urinary tract infection): Plan: 79 yo F w/ PMH of CAD, chronic HFpEF, persistent A. fib anticoagulated on warfarin, renal stone and urosepsis in June 2020, T2DM, HTN, HLD, SSS status post PPM, hypothyroidism, valvular heart disease with mild aortic stenosis and moderate mitral stenosis, MDS presented to ED 10/24 from [facility] w/ acute onset right sided flank pain. She received fentanyl in ED. Later on she complained of Rt sided non radiating chest pain, dull, 05/23, a/w SOB. Being managed for the following: #. Chest pain/Rt Flank pain #. Subtherapeutic INR #. Permanent Afib h/o CAD EKG: anterolateral T wave inversions with a negative troponinx3 Takes coumadin at home (home regimen 2 mg on Thursday, 4 mg all other days), concern for noncompliance, was on IV heparin drip owing to subtherapeutic INR prior to EGD. Admitting CTA chest negative for PE. Admitting CTAP negative for renal calculi/obstructive uropathy. echo 09/2020 EF 65 to 70%, mild aortic valve stenosis, moderate mitral valve stenosis, LA severely dilated, RVSP 40 to 50 mmHg Troponin x3 - Cardiology on board: Likely noncardiac chest pain, no further intervention at this time. Okay to DC telemetry or to home from cardiac standpoint. No medication changes at this time. Palliative care consulted to discuss goals of care. Continue home warfarin, monitor PT/INR daily. #. Esophagitis versus esophageal obstruction #. Thoracic ascending aorta aneurysm Admitting CTAP: Cardiomegaly and cardiac pacemaker. Small to moderate pleural effusion with dependent consolidation. Mild aneurysmal dilation of the thoracis ascending aorta approximately 4.1 cm. Esophagus is distended and patulous, and pelvic tilt to the level of thoracic inlet, increasing the risk of aspiration for patient. Circumferential wall thickening at GE junction which can likely be obstructive lesion for the above findings. 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 Patient started on full liquids per GI. Advance diet as tolerated. #. Mild CHF exacerbation #. CAD Recent hospitalization in September 2020 for acute decompensation of CHF in the setting of viral heart disease and hypoalbuminemia Admitting CXR: Mild interstitial pulmonary edema and small bilateral pleural effusion. proBNP elevated at 8985. Recent echosee above Clinically patient appears stable and euvolemic. Patient on room air, continue to monitor. Resume home Lasix C/W home medications #. UTI No fever or high WBC so far Urine analysis concerning, pro-Coy 0.55, patient is started on Rocephin empirically Preliminary urinary culture shows gram-negative bacilli. Awaiting blood culture Follow-up with final culture. Continue with Rocephin, will stop after today's dose. #. DM 2 last a1c 6.6 06/22/20 A1c 5.6 this admission [October 2020] lantus/novolog per protocol #. Hypoalbuminemia consult dietitian, possibly contributing to volume overload #. Anemia monitor cbc, h/h stable likely chronic, on b12 and iron supplementation Disposition: We will get PT/OT involved. [facility] when [facility]. . Admission and Anticipated Discharge Date Admission Date: October 25, 2020 Subjective Patient was lying semiupright in bed, on room air, NAD, no issues overnight. Denies fever/chills/dizziness/chest pain/palpitations/cough/skin rash/acute changes in bowel or bladder habit. Denies any flank pain or chest pain. She is tolerating diet. Physical Exam Physical Exam: GENERAL: Alert and oriented x1 9to place). NAD, on RA. HEENT: No pallor, no icterus. Pupils equal, round and reactive to light. Oral mucosa moist. NECK: No JVD, no neck masses. HEART: S1 and S2 heard. Regular rate and rhythm. Murmur over aortic and pulmonic area, no gallop. RESPIRATORY SYSTEM: Normal AP diameter. No accessory muscle use. No wheezing, no crackles. ABDOMEN: Soft, bowel sounds present, nontender, no distention. CENTRAL NERVOUS SYSTEM: Alert and oriented x3. No facial droop. Speech is clear. Obeys simple commands. Moves extremities. EXTREMITIES: 1+ edema, no erythema seen. Results & Data Results & Data ([place]) Vital Signs (Past 12 Hours) Vital Signs Temp Pulse Resp BP BP Pulse Ox 10/27/20 16:37 36.5 C 65 16 125/69 99 10/27/20 06:29 36.6 C 79 16 131/70 95
[2020-10-27] MEDS: cefTRIAXone SODIUM 2,000 MG in DEXTROSE 5% 50 ML IV SCH (18:09)
[2020-10-27] MEDS: ACETAMINOPHEN 325 MG TAB PO PRN (20:25)
[2020-10-27] MEDS: METHENAMINE HIPPURATE 1 GM TAB PO SCH (20:25)
[2020-10-28] MEDS: LEVOTHYROXINE SODIUM 50 MCG TABLET PO SCH (06:00)
[2020-10-28 07:44] LABS: INR 1.2 (0.9-1.1); Prothrombin Time 12.3 Seconds (9.0-12.0)
[2020-10-28] MEDS: MULTIVITAMIN TAB PO SCH (08:34)
[2020-10-28] MEDS: FERROUS SULFATE 325 MG TAB PO SCH ×2 (08:34→19:31)
[2020-10-28] MEDS: CLOPIDOGREL BISULFATE 75 MG TAB PO SCH (08:34)
[2020-10-28] MEDS: ADVANCED PROBIOTIC 1250 MG CAPSULE PO SCH (08:34)
[2020-10-28] MEDS: FUROSEMIDE 20 MG TAB PO SCH (08:34)
[2020-10-28] MEDS: METOPROLOL SUCC 25MG EXT REL TAB PO SCH (08:34)
[2020-10-28] MEDS: CITALOPRAM 40 MG TAB PO SCH (08:34)
[2020-10-28] MEDS: POTASSIUM CHLORIDE 10 MEQ TABCR PO SCH ×2 (08:39→19:31)
[2020-10-28] MEDS: FAMOTIDINE 20 MG TAB PO SCH (08:39)
[2020-10-28] MEDS: INSULIN ASPART 100 UNITS/ML 3 ML PEN SC SCH ×4 (08:40→21:06)
[2020-10-28] MEDS: INSULIN GLARGINE SOLOSTAR 100 UNITS/ML 3 ML PEN SC SCH (08:40)
--- NOTE | 2020-10-28 09:29 | Electrocardiogram Report ---
Test Reason : Blood Pressure : / mmHG Vent. Rate : 083 BPM Atrial Rate : 326 BPM P-R Int : 000 ms QRS Dur : 120 ms QT Int : 390 ms P-R-T Axes : 000 -62 -82 degrees QTc Int : 458 ms Atrial fibrillation Left axis deviation Right bundle branch block Anteroseptal infarct , age undetermined T wave abnormality, consider lateral ischemia Abnormal ECG When compared with ECG of 27-OCT-2020 18:36, (unconfirmed) Atrial fibrillation has replaced Electronic ventricular pacemaker Confirmed by Nick Prieto ([id number]) on 10/28/2020 9:29:23 AM Referred By: REFERRED SELF Confirmed By:Nick Prieto
--- NOTE | 2020-10-28 09:29 | Electrocardiogram Report ---
Test Reason : Blood Pressure : / mmHG Vent. Rate : 086 BPM Atrial Rate : 441 BPM P-R Int : 000 ms QRS Dur : 114 ms QT Int : 382 ms P-R-T Axes : 000 -64 266 degrees QTc Int : 457 ms Atrial fibrillation with frequent ventricular-paced complexes and with premature ventricular or aberr antly conducted complexes Left axis deviation Incomplete right bundle branch block Anteroseptal infarct , age undetermined Abnormal ECG When compared with ECG of 25-OCT-2020 06:17, No significant change Confirmed by Nick Prieto ([id number]) on 10/28/2020 9:29:10 AM Referred By: REFERRED SELF Confirmed By:Nick Prieto
[2020-10-28] MEDS: WARFARIN SOD 4 MG TAB PO SCH (17:29)
[2020-10-28] MEDS: cefTRIAXone SODIUM 2,000 MG in DEXTROSE 5% 50 ML IV SCH (18:22)
[2020-10-28] MEDS: ACETAMINOPHEN 325 MG TAB PO PRN (18:22)
--- NOTE | 2020-10-28 18:38 | Hospitalist Progress Note ---
Date of Service October 28, 2020 Assessment & Plan (1) Abnormality of esophagus: (2) Subtherapeutic international normalized ratio (INR): (3) Acute UTI (urinary tract infection): Plan: 79 yo F w/ PMH of CAD, chronic HFpEF, persistent A. fib anticoagulated on warfarin, renal stone and urosepsis in June 2020, T2DM, HTN, HLD, SSS status post PPM, hypothyroidism, valvular heart disease with mild aortic stenosis and moderate mitral stenosis, MDS presented to ED 10/24 from [facility] w/ acute onset right sided flank pain. She received fentanyl in ED. Later on she complained of Rt sided non radiating chest pain, dull, 05/23, a/w SOB. Being managed for the following: #. Chest pain/Rt Flank pain #. Subtherapeutic INR #. Permanent Afib h/o CAD EKG: anterolateral T wave inversions with a negative troponinx3 Takes coumadin at home (home regimen 2 mg on Thursday, 4 mg all other days), concern for noncompliance, was on IV heparin drip owing to subtherapeutic INR prior to EGD. Admitting CTA chest negative for PE. Admitting CTAP negative for renal calculi/obstructive uropathy. echo 09/2020 EF 65 to 70%, mild aortic valve stenosis, moderate mitral valve stenosis, LA severely dilated, RVSP 40 to 50 mmHg Troponin x3 - Cardiology on board: Likely noncardiac chest pain, no further intervention at this time. Okay to DC telemetry or to home from cardiac standpoint. No medication changes at this time. Palliative care consulted to discuss goals of care. No chest or flank pain currently. Patient feels better. Continue home warfarin, monitor PT/INR daily. #. Esophagitis versus esophageal obstruction #. Thoracic ascending aorta aneurysm Admitting CTAP: Cardiomegaly and cardiac pacemaker. Small to moderate pleural effusion with dependent consolidation. Mild aneurysmal dilation of the thoracis ascending aorta approximately 4.1 cm. Esophagus is distended and patulous, and pelvic tilt to the level of thoracic inlet, increasing the risk of aspiration for patient. Circumferential wall thickening at GE junction which can likely be obstructive lesion for the above findings. 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 Awaiting further recommendation from GI. Advance diet as tolerated. #. Mild CHF exacerbation #. CAD Recent hospitalization in September 2020 for acute decompensation of CHF in the setting of viral heart disease and hypoalbuminemia Admitting CXR: Mild interstitial pulmonary edema and small bilateral pleural effusion. proBNP elevated at 8985. Recent echosee above Clinically patient appears stable and euvolemic. Patient on room air, continue to monitor. C/W home Lasix C/W home medications #. UTI No urinary symptoms currently. Status post 3 days of Rocephin. #. DM 2 last a1c 6.6 06/22/20 A1c 5.6 this admission [October 2020] lantus/novolog per protocol #. Hypoalbuminemia consult dietitian, possibly contributing to volume overload #. Anemia monitor cbc, h/h stable likely chronic, on b12 and iron supplementation Disposition: We will get PT/OT involved. Palliative care on board. [facility] PT recommending discharge to SNF when medically stable. . Admission and Anticipated Discharge Date Admission Date: October 25, 2020 Subjective Patient was lying semiupright in bed, on room air, NAD, no issues overnight. Denies fever/chills/dizziness/chest pain/palpitations/cough/skin rash/acute changes in bowel or bladder habit. Denies any flank pain or chest pain. She is tolerating diet. Physical Exam Physical Exam: GENERAL: Alert and oriented x2 [baseline functional device]. NAD, on RA. HEENT: No pallor, no icterus. Pupils equal, round and reactive to light. Oral mucosa moist. NECK: No JVD, no neck masses. HEART: S1 and S2 heard. Regular rate and rhythm. Murmur over aortic and pulmonic area, no gallop. RESPIRATORY SYSTEM: Normal AP diameter. No accessory muscle use. No wheezing, no crackles. ABDOMEN: Soft, bowel sounds present, nontender, no distention. CENTRAL NERVOUS SYSTEM: Alert and oriented x3. No facial droop. Speech is clear. Obeys simple commands. Moves extremities. EXTREMITIES: 1+ edema, no erythema seen. Results & Data Results & Data ([facility]) Vital Signs (Past 12 Hours) Vital Signs Temp Pulse Resp BP Pulse Ox 10/28/20 15:42 36.4 C L 71 18 156/72 H 95 10/28/20 07:32 36.4 C L 70 18 122/70 98
[2020-10-28] MEDS: METHENAMINE HIPPURATE 1 GM TAB PO SCH (19:31)
[2020-10-29] MEDS: LEVOTHYROXINE SODIUM 50 MCG TABLET PO SCH (05:04)
[2020-10-29 06:28] LABS: INR 1.4 (0.9-1.1); Prothrombin Time 13.4 Seconds (9.0-12.0)
[2020-10-29] MEDS: METOPROLOL SUCC 25MG EXT REL TAB PO SCH (08:35)
[2020-10-29] MEDS: MULTIVITAMIN TAB PO SCH (08:36)
[2020-10-29] MEDS: ADVANCED PROBIOTIC 1250 MG CAPSULE PO SCH (08:36)
[2020-10-29] MEDS: FUROSEMIDE 20 MG TAB PO SCH (08:36)
[2020-10-29] MEDS: CITALOPRAM 40 MG TAB PO SCH (08:36)
[2020-10-29] MEDS: CLOPIDOGREL BISULFATE 75 MG TAB PO SCH (08:36)
[2020-10-29] MEDS: FERROUS SULFATE 325 MG TAB PO SCH (08:37)
[2020-10-29] MEDS: INSULIN GLARGINE SOLOSTAR 100 UNITS/ML 3 ML PEN SC SCH (08:37)
[2020-10-29] MEDS: INSULIN ASPART 100 UNITS/ML 3 ML PEN SC SCH ×2 (08:39→12:46)
[2020-10-29] MEDS: FAMOTIDINE 20 MG TAB PO SCH (08:41)
[2020-10-29] MEDS: POTASSIUM CHLORIDE 10 MEQ TABCR PO SCH (11:00)
--- NOTE | 2020-10-29 11:13 | Discharge Summary ---
Date of Service October 29, 2020 Admission HPI Per Admitting Provider This is a 79-year-old female who has significant past medical history of CAD, chronic HFpEF, persistent A. fib anticoagulated on warfarin, T2DM, HTN, HLD, SSS status post PPM, hypothyroidism, valvular heart disease with mild aortic stenosis and moderate mitral stenosis, MDS who presents to ED from [facility] secondary to acute onset right-sided flank pain. Patient is a very poor historian also received IV narcotic which could be contributing to. History mostly obtained from ED provider. Initially upon arrival patient complained of pain to the right flank. A call was placed to medical command for further advice and 100 mcg of fentanyl was administered. Upon my evaluation she cannot recall details regarding her right flank pain, but she does recall that she had it. Of significance she does have prior history of kidney stone and urosepsis in June 2020. Currently she is complaining of right-sided chest pain that is nonradiating, described as dull, rated as a 3 out of 10, associated s hortness of breath, denies pain with inspiration, lightheadedness, dizziness, diaphoresis, nausea or vomiting. She further denies any recent illness, fever, chills, sweats, cough, hemoptysis, abdominal pain, change in bowel or urinary habits. Prior to today she was at her baseline and ambulating with a walker. Of significance she did have recent hospitalization secondary to acute decompensation of CHF in setting of viral heart disease and hypoalbuminemia. During hospitalization she was treated with IV diuresis and her metoprolol was decreased to 12.5 mg daily. She states her appetite is otherwise been well. They have been weighing her daily and she states her weight is down to 165 pounds. "At one point was 300 pounds." In ED patient made hemodynamically stable and oxygen saturations were in the low 90s. Lab work notable for H&H 11.5 and 35.7, BUN 21, creatinine 0.98, troponin WNL, proBNP 8985, albumin 2.9. Chest x-ray consistent with mild pulmonary edema. CT abdomen pelvis negative for acute pathology but did reveal layering moderate pleural effusions. Her EKG did reveal atrial fibrillation with anterior lateral T wave inversions. Admission Exam Per Admitting Provider Constitutional: Alert, female, alert and answers questions, alert to self only, WD/WN, vitals as above, NAD, sitting up in bed, Head: Normocephalic, Atraumatic Eyes: PERRL, pinpoint pupils, conjunctivae normal, anicteric sclerae ENMT: external ear and nose normal, oropharynx normal dry mucous membranes Neck: trachea midline, no thyromegaly normal visual inspection Respiratory: normal respiratory effort, lungs clear to auscultation, no wheeze, rales, rhonchi. Normal insp/exp effort, no accessory muscle use Cardiovascular: Irregular rate, irregular rhythm, no murmur, no edema, vessels: no JVD or carotid bruit Chest: normal inspection of chest Abdomen: normal bowel sounds, soft, nontender, no hepatosplenomegaly Musculoskeletal: no cyanosis or clubbing, extremities motor strength 5/5 Skin: no rashes, warm and dry normal turgor Neurologic: PERRL, EOMI, accommodation nl, no face palsy, no dysarthria CN's II-XI intact bilaterally and moves all extremities Psychiatric: A+Ox 1, euthymic affect Lymphatic: no cervical or axillary lymphadenopathy : deferred Principal Diagnosis Abnormality of esophagus: Subtherapeutic international normalized ratio (INR): Acute UTI (urinary tract infection): Chest pain/Rt Flank pain Subtherapeutic INR Permanent Afib CAD Esophagitis versus esophageal obstruction Thoracic ascending aorta aneurysm Mild CHF exacerbation UTI DM 2 Hypoalbuminemia Anemia Discharge Exam ROS-No Headache, No Visual Changes, No Nausea, No Vomiting, No Fever, No Chills, No Neck Pain or Stiffness, No Chest Pain, No Palpitations, No SOB, No DAVILA, No Cough, No Sputum, No Wheezing, No Abdominal Pain, No Diarrhea, No Hematemesis, No Hemoptysis, No Unexpected Weight Loss, No Flank pain, No Melena, No Hematochezia, No Frequency, No Urgency, No Burning, No Hematuria, No Rashes, No Diaphoresis. Appetite is Normal Physical Exam Gen-AAO x 3, NAD, Afebrile Head-NCAT, EOMI, PERRLA, Anicteric Sclera, No Posterior Pharyngeal Erythema Neck-Supple, No JVD, No Thyromegaly, No Masses, No LAD, No Bruits Lungs-Clear to Auscultation Bilaterally, No Rales, No Rhonchi, No Wheezing, No Crepitus Chest-No S4, +S1, +S2, No S3, No Murmurs, No Rubs, No Gallops, No Ectopy Abdomen-Soft, Bowel Sounds Present, Non Tender, Non Distended, No Hepatomegaly, No Splenomegaly, No Palpable Masses, No Rebound, No Rigidity, No Guarding Musculoskeletal-Full Range of Motion Bilaterally, No CVAT Extremities-No Cyanosis, No Clubbing, No Edema Nuero-Cranial Nerves II-XII grossly intact, Motor WNL, DTRs WNL, Strength WNL, Non Focal Psych-Normal Mood Discharge Data Allergies Allergy/AdvReac Type Severity Reaction Status Date / Time adhesive Allergy Unknown ADHESIVE Verified 10/24/20 15:42 TAPE Consultations 10/24/20 16:31 ED Decision to Admit Stat 10/25/20 08:25 Consult Cardiology Routine 10/25/20 08:26 Consult Gastroenterology Routine 10/25/20 08:41 Consult Palliative Care Routine Procedures Performed Operation Date: 10/26/20 07:00 Actual Procedures p Esophagogastroduodenoscopy(Not Applicable) - Anushka Noguera MD Ordered Studies 10/24/20 14:21 CT abd pelvis wo con Stat 10/24/20 17:08 CT angio chest PE protocol Stat 10/25/20 17:41 CT head/brain wo con Urgent Current Diagnoses Type 2 diabetes mellitus without complications (10/25/20) Atherosclerotic heart disease of [place] coronary artery without angina pectoris (10/25/20) Endocarditis, valve unspecified (10/25/20) Unspecified atrial fibrillation (10/25/20) Sick sinus syndrome (10/25/20) Chronic diastolic (congestive) heart failure (10/25/20) Acute on chronic diastolic (congestive) heart failure (10/25/20) Disease of esophagus, unspecified (10/25/20) Urinary tract infection, site not specified (10/25/20) Chest pain, unspecified (10/25/20) Unspecified abdominal pain (10/25/20) Abnormal coagulation profile (10/25/20) Abnormal electrocardiogram [ECG] [EKG] (10/25/20) Encounter for other preprocedural examination (10/25/20) Encounter for palliative care (10/25/20) Presence of cardiac pacemaker (10/25/20) Presence of urogenital implants (10/25/20) Allergies adhesive Allergy (Unknown, Verified 10/24/20 15:42) ADHESIVE TAPE Height/Weight/Isolation Height 5 ft 6 in Weight 74 kg Isolation Type Contact Precautions Hospital Course (1) Abnormality of esophagus: (2) Subtherapeutic international normalized ratio (INR): (3) Acute UTI (urinary tract infection): 79 yo F w/ PMH of CAD, chronic HFpEF, persistent A. fib anticoagulated on warfarin, renal stone and urosepsis in June 2020, T2DM, HTN, HLD, SSS status post PPM, hypothyroidism, valvular heart disease with mild aortic stenosis and moderate mitral stenosis, MDS presented to ED 10/24 from [facility] w/ acute onset right sided flank pain. She received fentanyl in ED. Later on she complained of Rt sided non radiating chest pain, dull, 05/23, a/w SOB. Being managed for the following: #. Chest pain/Rt Flank pain #. Subtherapeutic INR #. Permanent Afib h/o CAD EKG: anterolateral T wave inversions with a negative troponinx3 Takes coumadin at home (home regimen 2 mg on Thursday, 4 mg all other days), concern for noncompliance, was on IV heparin drip owing to subtherapeutic INR prior to EGD. Admitting CTA chest negative for PE. Admitting CTAP negative for renal calculi/obstructive uropathy. echo 09/2020 EF 65 to 70%, mild aortic valve stenosis, moderate mitral valve stenosis, LA severely dilated, RVSP 40 to 50 mmHg Troponin x3 - Cardiology on board: Likely noncardiac chest pain, no further intervention at this time. Okay to DC telemetry or to home from cardiac standpoint. No medication changes at this time. Palliative care consulted to discuss goals of care. No chest or flank pain currently. Patient feels better. Continue home warfarin, monitor PT/INR daily. #. Esophagitis versus esophageal obstruction #. Thoracic ascending aorta aneurysm Admitting CTAP: Cardiomegaly and cardiac pacemaker. Small to moderate pleural effusion with dependent consolidation. Mild aneurysmal dilation of the thoracis ascending aorta approximately 4.1 cm. Esophagus is distended and patulous, and pelvic tilt to the level of thoracic inlet, increasing the risk of aspiration for patient. Circumferential wall thickening at GE junction which can likely be obstructive lesion for the above findings. 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 Awaiting further recommendation from GI. Advance diet as tolerated. #. Mild CHF exacerbation #. CAD Recent hospitalization in September 2020 for acute decompensation of CHF in the setting of viral heart disease and hypoalbuminemia Admitting CXR: Mild interstitial pulmonary edema and small bilateral pleural effusion. proBNP elevated at 8985. Recent echosee above Clinically patient appears stable and euvolemic. Patient on room air, continue to monitor. C/W home Lasix C/W home medications #. UTI No urinary symptoms currently. Status post 3 days of Rocephin. #. DM 2 last a1c 6.6 06/22/20 A1c 5.6 this admission [October 2020] lantus/novolog per protocol #. Hypoalbuminemia consult dietitian, possibly contributing to volume overload #. Anemia monitor cbc, h/h stable likely chronic, on b12 and iron supplementation Disposition: PT/OT involved. Palliative care [facility] . Total Time Total Time Spent Total Time Spent (In Minutes): 45 mins Total Time Includes: Examination of the Patient, Discharge Planning, Medication Reconciliation and Communication With Other Providers Discharge Plan Discharge Items Patient Disposition: Personal Group Home Reason For Visit: R SIDED CHEST PAIN, FLANK PAIN Discharge Diagnosis: Abnormality of esophagus: Subtherapeutic international normalized ratio (INR): Acute UTI (urinary tract infection): Chest pain/Rt Flank pain Subtherapeutic INR Permanent Afib CAD Esophagitis versus esophageal obstruction Thoracic ascending aorta aneurysm Mild CHF exacerbation UTI DM 2 Hypoalbuminemia Anemia Condition on Discharge: Good Activity: Per Instructions section Activity Comment: Send PT and OT recommendations along to patient long-term for patient Lifting: Gradually increase as tolerated Bathing: No limitations Exercise/Sports: Gradually increase as tolerated Driving/Machine Use: No limitations Non-emergency contact: Primary Care Provider Call non-emergency contact if: you have any medication questions Follow-up/Referrals: Liza Dobbs, DO [Primary Care Provider] - Diet: Carb Consistent or DM2 and Heart Healthy Addtl Attending Provider Instructions: None Pending Studies at Discharge: No Stand-Alone Forms: [employer], Smoking Cessation Skilled Items Patient informed of condition?: Yes DNR: No Discharge Level of Care: Other Communicable Disease: No Discharge Prognosis: Stable Lines: None Urinary Catheter: No Medications and DC Order Prescriptions: New citalopram 40 mg Tablet 40 mg PO QAM Qty: 30 RF: 0 clopidogrel 75 mg Tablet 75 mg PO QAM Qty: 30 RF: 0 warfarin [Jantoven] 4 mg Tablet 4 mg PO [id number]@1600 Qty: 30 RF: 0 methenamine hippurate 1 gram Tablet 1 g PO HS Qty: 30 RF: 0 famotidine 20 mg Tablet 20 mg PO QAM Qty: 30 RF: 0 levothyroxine [Synthroid] 50 mcg Tablet 50 mcg PO DAILYBB Qty: 30 RF: 0 warfarin 2 mg Tablet 2 mg PO Fr@1600 Qty: 30 RF: 0 furosemide 20 mg Tablet 20 mg PO QAM Qty: 30 RF: 0 metoprolol succinate 25 mg Tablet Extended Release 24 Hr 12.5 mg PO DAILY Qty: 30 RF: 0 ferrous sulfate 325 mg (65 mg iron) Tablet,Delayed Release (Dr/Ec) 325 mg PO BID Qty: 60 RF: 0 potassium chloride [Klor-Con M10] 10 mEq Tablet,Er Particles/Crystals 10 meq PO BID Qty: 60 RF: 0 Lantus Solostar U-100 Insulin 100 unit/mL (3 mL) Insulin Pen 8 unit SC DAILY Qty: 10 RF: 0 multivitamin with folic acid [Daily-Nori (with folic acid)] 400 mcg Tablet 1 tab PO DAILY Qty: 30 RF: 0 Advanced Probiotic 625 mg (10 billion cell) Capsule 2 cap PO DAILY Qty: 60 RF: 0 B12 Active 1,000 mcg tablet,chewable 1,000 mcg PO DAILY Qty: 30 RF: 0 cefdinir 300 mg capsule 300 mg PO BID 5 Days Qty: 10 RF: 0 Discontinued citalopram 40 mg Tablet 40 mg PO QAM RF: 0 levothyroxine 50 mcg Tablet 50 mcg PO QAM RF: 0 ferrous sulfate 325 mg (65 mg iron) Tablet 325 mg PO BID RF: 0 furosemide 20 mg tablet 20 mg PO QAM RF: 0 cyanocobalamin (vitamin B-12) 1,000 mcg/mL solution 1,000 mcg IM MONTHLY RF: 0 clopidogrel 75 mg tablet 75 mg PO QAM RF: 0 famotidine 20 mg tablet 20 mg PO QAM RF: 0 warfarin 4 mg tablet 4 mg PO [id number] RF: 0 methenamine hippurate 1 gram Tablet 1 g PO HS RF: 0 Lactobacillus acidoph-L.bulgar [Floranex] 1 million cell Tablet 1 tab PO TIDM RF: 0 multivitamin [Daily-Nori] Tablet 1 tab PO DAILY RF: 0 warfarin 2 mg tablet 2 mg PO .DAILY ON FRIDAYS RF: 0 furosemide 20 mg Tablet 20 mg PO 1700 PRN (Reason: edema) Qty: 10 RF: 0 Boost Diabetic Liquid 1 ea PO BID RF: 0 Lantus Solostar U-100 Insulin 100 unit/mL (3 mL) insulin pen 8 unit SUBCUT DAILY RF: 0 metoprolol succinate 25 mg tablet extended release 24 hr 12.5 mg PO DAILY RF: 0 potassium chloride [Klor-Con M10] 10 mEq tablet,ER particles/crystals 10 meq PO BID RF: 0 Discharge Orders: Discharge Order (Routine); Ordered 10/29/20 Ordered By: Pepe Brown Admission Data Admit Date/Time: 10/25/20 15:56 Attending Provider: Pepe Brown Admit Provider: Shelby Cole Primary Care Provider: Liza Dobbs Other Providers: Pepe Brown ; Monty Thomas ; Anushka Noguera ; Kym Owens
== END 2020-10-29 13:34 | disposition home or self-care (01) | DRG 391 ==
LOC: 1E 14:12 → ED 14:12 → SUATTDRO 17:36 → 1E 19:51 → SUATTDRO 10-25 15:56 → 3E 10-26 17:39

== ENCOUNTER 2021-11-21 15:47 | Inpatient (IN) ==
--- NOTE | 2021-11-21 16:56 | ED Triage Note ---
Date of Service November 21, 2021 History of Present Illness This patient was briefly evaluated while in triage. An abbreviated physical exam was performed. This patient is a 80-year-old Female who presents to the ED for evaluation of not feeling well. She has been confused and has had a headache. Her son thinks symptoms started last night. Physical Exam VITALS: Vitals are noted on the nurse's note and reviewed by myself. Vital signs stable. GENERAL: This is an 80-year-old female, in no acute distress, well-developed well-nourished. SKIN: The skin was without rashes. HEAD: Normocephalic atraumatic. EYES: Pupils equal round and reactive to light and accommodation. Extraocular movements intact. HEART: Regular rate and rhythm without murmurs gallops or rubs. LUNGS: Clear to auscultation bilaterally without wheezes, rales or rhonchi. NEURO: Patient was oriented to person and place. Initial orders for labs and / or imaging were placed and patient was placed in the waiting area until a bed is available. Please see further documentation for the full ED course.
--- NOTE | 2021-11-21 17:35 | CT Scan Report ---
CT SCAN OF THE BRAIN WITHOUT IV CONTRAST CLINICAL HISTORY: Headache. COMPARISON STUDY: CT of the brain dated 10/25/2020 TECHNIQUE: Unenhanced axial CT scan of the brain is performed from the vertex to the skull base. A do se lowering technique was utilized adhering to the principles of ALARA. CT DOSE: 853.38 mGy.cm FINDINGS: Brain parenchyma: There is age-related involutional change noting moderate subcortical and periventri cular microangiopathic disease. There is no hemorrhage, mass effect, or evidence of acute territorial ischemia by CT criteria. There is a tiny chronic lacunar infarct in the right cerebellar hemisphere. Adames-white matter differentiation is preserved. No extra-axial fluid collection is seen. Ventricles, sulci, cisterns: Prominent secondary to involutional change. Intracranial vasculature: There is atherosclerotic calcification of the cavernous carotid and vertebr al artery. Calvarium: Unremarkable. Sinuses and mastoids: The visualized paranasal sinuses are clear. The mastoid air cells are well pneu matized. Orbits: The bony orbits are grossly intact. There are bilateral ocular lens implants. IMPRESSION: There is no hemorrhage, mass effect, or evidence of acute territorial ischemia by CT kaley serrano. ACT 112: Negative or not required by law. Electronically signed by: Luis Fernando Murdock M.D. 11/21/2021 5:34 PM
[2021-11-21 18:13] LABS: Basophils # (auto) 0.07 K/uL (0-0.2); Basophils % (auto) 1.6 %; Eosinophils # (auto) 0.08 K/uL (0-0.50); Eosinophils % (auto) 1.8 %; Hematocrit (blood only) 36.1 % (34.1-44.9); Hemoglobin 11.4 g/dl (12.0-16.0); Immature Granulocytes # (auto) 0.01 K/uL (0.00-0.02); Immature Granulocytes % (auto) 0.2 %; Lymphocytes # (auto) 0.86 K/uL (1.2-3.4); Lymphocytes % (auto) 19.7 %; Mean Corpuscular Hemoglobin 30.2 pg (25.0-34.0); Mean Corpuscular Hgb Conc 31.6 g/dL (32.0-36.0); Mean Corpuscular Volume 95.8 fL (80.0-100.0); Mean Platelet Volume 10.2 fL (9.4-12.3); Monocytes # (auto) 0.46 K/uL (0.24-0.82); Monocytes % (auto) 10.5 %; Neutrophils # (auto) 2.89 K/uL (1.4-6.5); Neutrophils % (auto) 66.2 %; Platelet Count 229 K/uL (130-400); RDW Coefficient of Variation 13.5 % (11.5-14.5); RDW Standard Deviation 47.5 fL (36.4-46.3); Red Blood Count 3.77 M/uL (3.93-5.22); White Blood Count 4.37 K/ul (4.8-10.8)
[2021-11-21 18:22] LABS: Appearance Urine Turbid (Clear); Bacteria Urine Automated 4+ (Negative); Bilirubin Urine Negative (Negative); Blood Urine 2+ (Negative); Color Urine Yellow; Epithelial Cell Urine Auto >30 /lpf (0-5); Glucose Urine UA Negative (Negative); Ketones Urine Negative (Negative); Leukocyte Esterase Urine 3+ (Negative); Nitrite Urine Negative (Negative); Protein Urine Trace (Negative); Specific Gravity Urine 1.012 (1.000-1.030); Urobilinogen Urine Negative (Negative); WBC Urine Automated >30 /hpf (0-5); pH Urine 5.5 (4.5-7.5)
[2021-11-21 18:40] LABS: Alanine Aminotransferase 9 U/L (7-52); Albumin Globulin Ratio 1.2 (0.9-2); Albumin Level 3.5 gm/dl (3.4-5.0); Alkaline Phosphatase 85 U/L (34-104); Anion Gap 6 (3-11); Aspartate Aminotransferase 21 U/L (13-39); BUN Creatinine Ratio 19.6 (10-20); Bilirubin,Total 0.6 mg/dl (0.2-1.0); Blood Urea Nitrogen 20 mg/dl (6-23); Calcium 8.7 mg/dl (8.5-10.1); Carbon Dioxide 27 mmol/L (21-32); Chloride 108 mmol/L (98-107); Est GFR (African American) 59.3 ml/min; Est GFR (Non-African American) 51.2 ml/min; Globulin 2.9 gm/dl (2.5-4.0); Glucose 122 mg/dl (70-99(Fasting)); Magnesium 2.2 mg/dl (1.7-2.4); Potassium 4.9 mmol/L (3.5-5.1); Sodium 141 mmol/L (136-145); Total Protein 6.4 gm/dl (6.0-8.3)
[2021-11-21] MEDS ORDERED: cefTRIAXone SODIUM 1,000 MG/50 ML BAG IV STA (19:15)
[2021-11-21] MEDS ORDERED: SODIUM CHLORIDE 0.9% 1000ML 1,000 ML IV ONE (19:15)
--- NOTE | 2021-11-21 19:17 | Emergency Department Note ---
History of Present Illness General Chief complaint: Illness Stated complaint: EXHAUSTION, HEADACHE Time Seen by Provider: 11/21/21 19:11 History of Present Illness 80-year-old female presents emergency department from a local [facility] with a complaint of confusion and hallucinations vomiting. Patient's family at bedside and states that she was acting strange today last evening she was acting appropriate. The staff states that she was confused hallucinating. Patient does relate hallucinations she does state that she felt confused she had a mild headache. Patient's been prone to urinary tract infections in the past. Patient denies chest pain shortness of breath abdominal pain. There are no other mitigating or alleviating factors Home Medications Medication Instructions Recorded Confirmed Type citalopram 40 mg tablet 40 mg PO QAM #30 tabs 10/29/20 11/21/21 Rx clopidogrel 75 mg tablet 75 mg PO QAM #30 tabs 10/29/20 11/21/21 Rx famotidine 20 mg tablet 20 mg PO QAM #30 tabs 10/29/20 11/21/21 Rx ferrous sulfate 325 mg (65 mg 325 mg PO BID #60 tabs 10/29/20 11/21/21 Rx iron) tablet,delayed release furosemide 20 mg tablet 20 mg PO QAM #30 tabs 10/29/20 11/21/21 Rx insulin glargine 100 unit/mL (3 8 unit (0.08 mL) SC DAILY #10 mL 10/29/20 11/21/21 Rx mL) subcutaneous pen (Lantus Solostar U-100 Insulin) levothyroxine 50 mcg tablet 50 mcg PO DAILYBB #30 tabs 10/29/20 11/21/21 Rx (Synthroid) methenamine hippurate 1 gram tablet 1 g PO HS #30 tabs 10/29/20 11/21/21 Rx metoprolol succinate 25 mg 12.5 mg PO DAILY #30 tabs 10/29/20 11/21/21 Rx tablet,extended release 24 hr warfarin 6 mg tablet 6 mg PO [id number] 06/14/21 11/21/21 History Culturelle 2 cap PO DAILY 11/21/21 11/21/21 History multivitamin (Daily-Nori tablet) 1 tab PO DAILY 11/21/21 11/21/21 History spironolactone 25 mg tablet 12.5 mg PO QAM 11/21/21 11/21/21 History warfarin 3 mg tablet 3 mg PO .WEEKLY ON Fridays11/21/21 11/21/21 History Allergies Allergy/AdvReac Type Severity Reaction Status Date / Time adhesive Allergy Unknown ADHESIVE Verified 11/21/21 20:22 TAPE Past Med/Surg History Medical History Anemia Aortic root dilatation 4.4 cm on echo 01/2019 Aortic root normal size on 02/2020 ECHO Asthma Atrial fibrillation Bifascicular block CAD (coronary artery disease) "1995 - PTCA and stenting of RCA 07/2011 - atherectomy and stenting RCA 12/2011- AZALIA to the mid LAD 2016-Cobra stent to mid LAD 2017-AZALIA to ostial diagonal Calculus of distal left ureter Closed fracture of left hip February 2020trochanteric nail placed by Ortho Congestive heart failure Depression DM type 2 (diabetes mellitus, type 2) Dyslipidemia GERD (gastroesophageal reflux disease) Hypertension Hypothyroidism HOMERO (iron deficiency anemia) Macular degeneration MDS (myelodysplastic syndrome) Mild aortic stenosis Per 02/19/20 ECHO- ASHLEY 1.84 cm; AV max velocity 2.491 m/s; AV mean PG 13.6 mmHg Mitral stenosis Moderate per 02/2020 ECHO Pacemaker Sinus node dysfunction VRE (vancomycin resistant enterococcus) culture positive Surgical History History of angioplasty History of arthroscopy of knee History of arthroscopy of shoulder History of cholecystectomy History of gastric bypass History of incisional hernia repair History of partial hysterectomy History of tonsillectomy Family History Father Colorectal cancer Sister Lung cancer Diabetes Brother Diabetes Mother Diabetes Social History Smoking Status: Never smoker Second Hand Exposure: No; Hx Alcohol Use: Yes Alcohol type: wine Hx Substance Use: No Preferred Language: Wallisian Communication Ability: Effective Visual Impairment: No Limitations Hearing Ability: Normal 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: No Beliefs That Will Affect Care: None marital status: / Current Living Situation: Family Current Living Situation Comment: son and grandaughter current occupational status: retired How many Children do You have: 3 Feels Safe at Home: Yes Assistive Devices: Denture - Upper, Denture - Lower and Walker Review of Systems A total of 10 systems reviewed and were otherwise negative Constitutional: + chills Eyes: no blind spots Ear, Nose, Mouth, Throat: no ear pain Respiratory: no cough Cardiovascular: no chest pain Genitourinary (Female): no urinary urgency Psychiatric: + hallucinations and + visual hallucinations Physical Exam Vital Signs Vital Signs - 24 hr 11/21/21 16:51 Temperature 36.4 C L Temperature Source Temporal Artery Scan Pulse Rate 64 Respiratory Rate 18 Respiratory Effort / Characteristics Non-Labored Respiratory Depth Normal Respiratory Pattern Regular Blood Pressure 97/60 L Blood Pressure Mean 72 Pulse Oximetry 97 Oxygen Delivery Method Room Air Sepsis Recent Fever Within 48 Hours No Sepsis New/Unexplained Change in Mental Status No Sepsis Action Taken by Nursing No Action Required GENERAL: Patient is awake alert in no acute distress patient is resting comfortably EYES: The conjunctivae are clear. The pupils are round and reactive. EARS, NOSE, MOUTH AND THROAT: The nose is without any evidence of any deformity. Mucous membranes are moist. Tongue is midline. NECK: The neck is nontender and supple. RESPIRATORY: Normal respiratory effort is noted there is no evidence of wheezing rhonchi or rales CARDIOVASCULAR: Regular rate and rhythm noted there no murmurs rubs or gallops normal S1 normal S2. GASTROINTESTINAL: The abdomen is soft. Abdomen is nontender. PELVIS: The Pelvis is stable. No tenderness to palpation is noted. BACK: No midline tenderness or or step-off noted range of motion in flexion extension as well as rotation no signs of muscle spasm noted MUSCULOSKELETAL/EXTREMITIES: There is no evidence of gross deformity full range of motion is noted in the hips and shoulders. SKIN: There is no obvious evidence of any rash. There are no petechiae, pallor or cyanosis noted. NEUROLOGIC: Patient is awake alert and oriented x3 strength is symmetric; Course Reevaluation(s) Reevaluation #1: Patient is resting in no distress. Patient was started on IV fluids, IV Rocephin. The case was discussed with the son at bedside. The case was discussed with the [facility] hospitalist for admission. 7:38 PM the patient is not in septic shock. Time: 19:39 Administered Medications Discontinued Medications Sodium Chloride (Nss 1000ml) 1,000 mls @ 999 mls/hr IV .Q1H1M ONE Stop: 11/21/21 20:15 Last Infusion: 11/21/21 22:23 Dose: 0 mls/hr Documented By: Admin: 11/21/21 19:53 Dose: 999 mls/hr Documented By: BONIFACIO Ceftriaxone Sodium (Rocephin) 1,000 mg in 50 mls @ 100 mls/hr IV NOW STA Stop: 11/21/21 19:44 Last Infusion: 11/21/21 22:23 Dose: 0 mls/hr Documented By: Admin: 11/21/21 19:53 Dose: 100 mls/hr Documented By: BONIFACIO Medical Decision Making Medical Records Attestation: I reviewed the patient's medical records. Home Medications Current Medication List: was personally reviewed by me Laboratory Data Attestation: I reviewed the patient's lab results. Result diagrams: 11/21/21 17:52 11/21/21 17:52 Lab Results 11/21/21 11/21/21 11/21/21 Range/Units 17:52 17:52 17:52 WBC 4.37 L (4.8-10.8) K/ul RBC 3.77 L (3.93-5.22) M/uL Hgb 11.4 L (12.0-16.0) g/dl Hct 36.1 (34.1-44.9) % MCV 95.8 (80.0-100.0) fL MCH 30.2 (25.0-34.0) pg MCHC 31.6 L (32.0-36.0) g/dL RDW Std Deviation 47.5 H (36.4-46.3) fL RDW Coeff of [place] 13.5 (11.5-14.5) % Plt Count 229 (130-400) K/uL MPV 10.2 (9.4-12.3) fL Immature Gran % (Auto) 0.2 % Neut % (Auto) 66.2 % Lymph % (Auto) 19.7 % [place] % (Auto) 10.5 % Eos % (Auto) 1.8 % Baso % (Auto) 1.6 % Neut # (Auto) 2.89 (1.4-6.5) K/uL Lymph # (Auto) 0.86 L (1.2-3.4) K/uL [place] # (Auto) 0.46 (0.24-0.82) K/uL Eos # (Auto) 0.08 (0-0.50) K/uL Baso # (Auto) 0.07 (0-0.2) K/uL Immature Gran # (Auto) 0.01 (0.00-0.02) K/uL Sodium 141 (136-145) mmol/L Potassium 4.9 (3.5-5.1) mmol/L Chloride 108 H (98-107) mmol/L Carbon Dioxide 27 (21-32) mmol/L Anion Gap 6 (3-11) BUN 20 (6-23) mg/dl Creatinine 1.02 (0.6-1.2) mg/dl Est Cr Clr Drug Dosing Not Reportable Est GFR ( Amer) 59.3 ml/min Est GFR (Non-Af Amer) 51.2 ml/min BUN/Creatinine Ratio 19.6 (10-20) Glucose 122 H (70-99(Fasting)) mg/dl Calcium 8.7 (8.5-10.1) mg/dl Magnesium 2.2 (1.7-2.4) mg/dl Total Bilirubin 0.6 (0.2-1.0) mg/dl AST 21 (13-39) U/L ALT 9 (7-52) U/L Alkaline Phosphatase 85 (34-104) U/L Total Protein 6.4 (6.0-8.3) gm/dl Albumin 3.5 (3.4-5.0) gm/dl Globulin 2.9 (2.5-4.0) gm/dl Albumin/Globulin Ratio 1.2 (0.9-2) Urine Color Yellow Urine Appearance Turbid A (Clear) Urine pH 5.5 (4.5-7.5) Ur Specific [place] 1.012 (1.000-1.030) Urine Protein Trace H (Negative) Urine Glucose (UA) Negative (Negative) Urine Ketones Negative (Negative) Urine Blood 2+ H (Negative) Urine Nitrite Negative (Negative) Urine Bilirubin Negative (Negative) Urine Urobilinogen Negative (Negative) Ur Leukocyte Esterase 3+ H (Negative) Urine WBC (Auto) >30 H (0-5) /hpf Urine RBC (Auto) 5-10 H (0-4) /hpf U Hyaline Cast (Auto) 1-5 (0-5) /lpf U Epithel Cells (Auto) >30 H (0-5) /lpf Urine Bacteria (Auto) 4+ H (Negative) Imaging Data Radiologist's Impression: Head CT 11/21/21 16:57 CT SCAN OF THE BRAIN WITHOUT IV CONTRAST CLINICAL HISTORY: Headache. COMPARISON STUDY: CT of the brain dated 10/25/2020 TECHNIQUE: Unenhanced axial CT scan of the brain is performed from the vertex to the skull base. A dose lowering technique was utilized adhering to the principles of ALARA. CT DOSE: 853.38 mGy.cm FINDINGS: Brain parenchyma: There is age-related involutional change noting moderate subcortical and periventricular microangiopathic disease. There is no hemorrhage, mass effect, or evidence of acute territorial ischemia by CT criteria. There is a tiny chronic lacunar infarct in the right cerebellar hemisphere. Adames-white matter differentiation is preserved. No extra-axial fluid collection is seen. Ventricles, sulci, cisterns: Prominent secondary to involutional change. Intracranial vasculature: There is atherosclerotic calcification of the cavernous carotid and vertebral artery. Calvarium: Unremarkable. Sinuses and mastoids: The visualized paranasal sinuses are clear. The mastoid air cells are well pneumatized. Orbits: The bony orbits are grossly intact. There are bilateral ocular lens implants. IMPRESSION: There is no hemorrhage, mass effect, or evidence of acute territorial ischemia by CT criteria. ACT 112: Negative or not required by law. Electronically signed by: Luis Fernando Murdock M.D. 11/21/2021 5:34 PM [facility] Narrative Goal decision making differential diagnosis includes urinary tract infection and metabolic derangement dehydration confusion. Patient will be evaluated for sepsis, urinary tract infection. Patient had provider in triage orders placed as a negative CT has lab work and a urinalysis suggestive of urinary tract infection. Patient was started on IV Rocephin. Patient is prone to significant confusion with hallucinations which ultimately is due to a urinary tract infection. [facility]. Patient CT was negative her white blood cell count is normal. Patient has a urinary tract infection. I do not suspect the patient to be in septic shock at this time. Impression & Plan Acute UTI (urinary tract infection), Acute confusion Discharge Plan Visit Data Chief Complaint: Illness Stated Complaint: EXHAUSTION, HEADACHE ED Provider: Monty Gutiérrez Discharge Problem: Acute UTI (urinary tract infection), Acute confusion Patient Disposition: Being Evaluated by Hospitalist Discharge Instructions Interventions: ED Discharge Assessment Last Done: 11/21/21 23:19
--- NOTE | 2021-11-21 19:47 | History & Physical Report ---
Date of Service November 21, 2021 Assessment & Plan (1) Acute UTI (urinary tract infection): (2) Encephalopathy, metabolic: (3) DM type 2 (diabetes mellitus, type 2): (4) Chronic heart failure with preserved ejection fraction (HFpEF): (5) Afib: (6) MDS (myelodysplastic syndrome): Plan This is a 79-year-old female who has significant past medical history of CAD, chronic HFpEF, persistent A. fib anticoagulated on warfarin, T2DM, HTN, HLD, SSS status post PPM, hypothyroidism, valvular heart disease with mild aortic stenosis and moderate mitral stenosis, MDS, hx of gastric bypass surg, who presents to ED from [facility] secondary toill feeling, NELSON and confusion x 1 day. UTI Metabolic encephalopathy pt does not meet criteria for sirs/sepsis urine culture pending, previously culture grew pansensitive e.coli continue with empiric Rocephin, Day 1 PT/OT CAD Chronic heart failure with preserved ejection fraction valvular heart disease strict I and O, daily weight heart healthy, low na diet last echo 09/2020 EF 65-70%, no WMA, mild aortic valve stenosis, biatrial enlargement, severe mitral calcification and mild to mod mitral stenosis, mod to severe tricuspid insuff continue plavix, metoprolol, aldactone euvolemic Atrial Fib -permanent SSS S/p PPM continue metoprolol and warfarin follow INR T2DM last a1c 5.6 10/25/20 a1c in a.m lantus/novolog per protocol CKD-3a bun/cr stable 20/1.02 monitor closely Anemia hx of MDS monitor cbc, h/h stable no s/sx of bleeding Dispo: Med/Surg [facility] Pt was seen and examined in collaboration with Dr. Cole, please see addendum History of Present Illness Chief Complaint: Ill feeling, NELSON, confusion x 1 day. Primary Care Provider: [facility] This is a 79-year-old female who has significant past medical history of CAD, chronic HFpEF, persistent A. fib anticoagulated on warfarin, T2DM, HTN, HLD, SSS status post PPM, hypothyroidism, valvular heart disease with mild aortic stenosis and moderate mitral stenosis, MDS who presents to ED from [facility] secondary toill feeling, NELSON and confusion x 1 day. She was at her baseline last night. Son is at bedside. He received a call from nurse today that she vomited, was more confused and hallucinating. Last night son said he complained of NELSON and feeling cold. Pt states, "I just don't feel good." She complains of a NELSON and feeling, "blah." NELSON started yesterday. It is located on the top of head/toward front. NELSON has been constant since yesterday. She feels overall she hasn't felt well for about a week. She denies sore throat, URI sx, cough, f/c/s, dizziness, lightheaded, chest pain, sob, palpitations, nausea, diarrhea, increased urg/freq since yesterday. She does have difficulty with bowel movements and it alternates between constipation/diarrhea, but this is normal for her. She complains of general abdominal pain and dysuria that started yesterday. History provided by patient and son. Patient's history slightly unreliable given underlying confusion. In ED patient remained hemodynamically stable. There was no clear signs of sepsis. Lab work notable for mild leukopenia at 4.37k, BUN/creatinine 21.02, glucose 122 and abnormal urinalysis concerning for infection. Head CT was without acute abnormality. She was treated with empiric IV Rocephin and started on gentle hydration. Allergies Allergy/AdvReac Type Severity Reaction Status Date / Time adhesive Allergy Unknown ADHESIVE Verified 06/30/21 23:19 TAPE Home Medications Medication Instructions Recorded Confirmed Type citalopram 40 mg tablet 40 mg PO QAM #30 tabs 10/29/20 11/21/21 Rx clopidogrel 75 mg tablet 75 mg PO QAM #30 tabs 10/29/20 11/21/21 Rx famotidine 20 mg tablet 20 mg PO QAM #30 tabs 10/29/20 11/21/21 Rx ferrous sulfate 325 mg (65 mg 325 mg PO BID #60 tabs 10/29/20 11/21/21 Rx iron) tablet,delayed release furosemide 20 mg tablet 20 mg PO QAM #30 tabs 10/29/20 11/21/21 Rx insulin glargine 100 unit/mL (3 8 unit (0.08 mL) SC DAILY #10 mL 10/29/2011/21 Rx mL) subcutaneous pen (Lantus Solostar U-100 Insulin) levothyroxine 50 mcg tablet 50 mcg PO DAILYBB #30 tabs 10/29/20 11/21/21 Rx (Synthroid) methenamine hippurate 1 gram tablet 1 g PO HS #30 tabs 10/29/20 11/21/21 Rx metoprolol succinate 25 mg 12.5 mg PO DAILY #30 tabs 10/29/20 11/21/21 Rx tablet,extended release 24 hr multivitamin with folic acid 400 1 tab PO DAILY #30 tabs 10/29/20 06/14/21 Rx mcg tablet (Daily-Nori (with folic acid)) warfarin 6 mg tablet 6 mg PO QPM 06/14/21 11/21/21 History spironolactone 12.5 mg PO QAM 11/21/21 11/21/21 History spironolactone 25 mg tablet 12.5 mg PO QAM 11/21/21 11/21/21 History Past Med/Surg History Medical History Anemia Aortic root dilatation 4.4 cm on echo 01/2019 Aortic root normal size on 02/2020 ECHO Asthma Atrial fibrillation Bifascicular block CAD (coronary artery disease) "1995 - PTCA and stenting of RCA 07/2011 - atherectomy and stenting RCA 12/2011- AZALIA to the mid LAD 2016-Cobra stent to mid LAD 2017-AZALIA to ostial diagonal Calculus of distal left ureter Closed fracture of left hip February 2020trochanteric nail placed by Ortho Congestive heart failure Depression DM type 2 (diabetes mellitus, type 2) Dyslipidemia GERD (gastroesophageal reflux disease) Hypertension Hypothyroidism HOMERO (iron deficiency anemia) Macular degeneration MDS (myelodysplastic syndrome) Mild aortic stenosis Per 02/19/20 ECHO- ASHLEY 1.84 cm; AV max velocity 2.491 m/s; AV mean PG 13.6 mmHg Mitral stenosis Moderate per 02/2020 ECHO Pacemaker Sinus node dysfunction VRE (vancomycin resistant enterococcus) culture positive Surgical History History of angioplasty History of arthroscopy of knee History of arthroscopy of shoulder History of cholecystectomy History of gastric bypass History of incisional hernia repair History of partial hysterectomy History of tonsillectomy Family History Father Colorectal cancer Sister Lung cancer Diabetes Brother Diabetes Mother Diabetes Social History Smoking Status: Never smoker Second Hand Exposure: No; Hx Alcohol Use: Yes Alcohol type: wine Hx Substance Use: No Preferred Language: Icelandic Communication Ability: Effective Visual Impairment: No Limitations Hearing Ability: Normal Lithograph Printer Required: No Beliefs That Will Affect Care: None marital status: / Current Living Situation: Family Current Living Situation Comment: son and grandaughter current occupational status: retired How many Children do You have: 3 Feels Safe at Home: Yes Assistive Devices: Denture - Upper, Denture - Lower and Walker Review of Systems Review of Systems: All systems reviewed & are unremarkable except as noted in HPI & below ROS slightly unreliable given cognition. Physical Exam Physical Exam: please refer to Dr. Cole addendum for physical exam findings. Results & Data Results & Data ([facility]) Vital Signs (Past 12 Hours) Vital Signs Temp Pulse Resp BP Pulse Ox O2 Del Method 11/21/21 16:51 36.4 C L 64 18 97/60 L 97 Room Air Diagnostic Findings Head CT 11/21/21 16:57 CT SCAN OF THE BRAIN WITHOUT IV CONTRAST CLINICAL HISTORY: Headache. COMPARISON STUDY: CT of the brain dated 10/25/2020 TECHNIQUE: Unenhanced axial CT scan of the brain is performed from the vertex to the skull base. A dose lowering technique was utilized adhering to the prin ciples of SILAS. CT DOSE: 853.38 mGy.cm FINDINGS: Brain parenchyma: There is age-related involutional change noting moderate subcortical and periventricular microangiopathic disease. There is no hemorrhage, mass effect, or evidence of acute territorial ischemia by CT criteria. There is a tiny chronic lacunar infarct in the right cerebellar hemisphere. Adames-white matter differentiation is preserved. No extra-axial fluid collection is seen. Ventricles, sulci, cisterns: Prominent secondary to involutional change. Intracranial vasculature: There is atherosclerotic calcification of the c avernous carotid and vertebral artery. Calvarium: Unremarkable. Sinuses and mastoids: The visualized paranasal sinuses are clear. The mastoid air cells are well pneumatized. Orbits: The bony orbits are grossly intact. There are bilateral ocular lens implants. IMPRESSION: There is no hemorrhage, mass effect, or evidence of acute territorial ischemia by CT criteria. ACT 112: Negative or not required by law. Electronically signed by: Luis Fernando Murdock M.D. 11/21/2021 5:34 PM Medications Administered Medication List Sodium Chloride (Nss 1000ml) 1,000 mls @ 999 mls/hr IV .Q1H1M ONE Stop: 11/21/21 20:15 Last Admin: 11/21/21 19:53 Dose: 999 mls/hr Documented By: BONIFACIO Discontinued Medications Ceftriaxone Sodium (Rocephin) 1,000 mg in 50 mls @ 100 mls/hr IV NOW STA Stop: 11/21/21 19:44 Last Admin: 11/21/21 19:53 Dose: 100 mls/hr Documented By: BONIFACIO COVID-19 Results Results COVID-19 Adm Lab Results: RBC 3.77 M/uL (3.93-5.22) L 11/21/21 WBC 4.37 K/ul (4.8-10.8) L 11/21/21 Hgb 11.4 g/dl (12.0-16.0) L 11/21/21 Hct 36.1 % (34.1-44.9) 11/21/21 Plt Count 229 K/uL (130-400) 11/21/21 Neutrophils (%) (Auto) 66.2 % 11/21/21 Lymphocytes (%) (Auto) 19.7 % 11/21/21 Monocytes # (Auto) 0.46 K/uL (0.24-0.82) 11/21/21 Eosinophils # (Auto) 0.08 K/uL (0-0.50) 11/21/21 Immature Granulocyte % (Auto) 0.2 % 11/21/21 Neutrophils # (Auto) 2.89 K/uL (1.4-6.5) 11/21/21 Lymphocytes # (Auto) 0.86 K/uL (1.2-3.4) L 11/21/21 Monocytes # (Auto) 0.46 K/uL (0.24-0.82) 11/21/21 Eosinophils # (Auto) 0.08 K/uL (0-0.50) 11/21/21 Basophils # (Auto) 0.07 K/uL (0-0.2) 11/21/21 Immature Granulocyte # (Auto) 0.01 K/uL (0.00-0.02) 2 Na 141 mmol/L (136-145) 11/21/21 K 4.9 mmol/L (3.5-5.1) 11/21/21 Cl 108 mmol/L (98-107) H 11/21/21 CO2 27 mmol/L (21-32) 11/21/21 Anion Gap 6 (3-11) 11/21/21 BUN 20 mg/dl (6-23) 11/21/21 Creatinine 1.02 mg/dl (0.6-1.2) 11/21/21 BUN/Creatinine Ratio 19.6 (10-20) 11/21/21 Glucose Level 122 mg/dl (70-99(Fasting)) H 11/21/21 Ca 8.7 mg/dl (8.5-10.1) 11/21/21 Total Bilirubin 0.6 mg/dl (0.2-1.0) 11/21/21 AST/SGOT 21 U/L (13-39) 11/21/21 ALT/SGPT 9 U/L (7-52) 11/21/21 Alkaline Phosphatase 85 U/L (34-104) 11/21/21 Total Protein 6.4 gm/dl (6.0-8.3) 11/21/21 Albumin 3.5 gm/dl (3.4-5.0) 11/21/21 Globulin 2.9 gm/dl (2.5-4.0) 11/21/21 Albumin/Globulin Ratio 1.2 (0.9-2) 11/21/21 Code Status & VTE Plan Code Status FULL CODE Supervising Physician Co-Signing Physician Notes 79 yo F w/ PMH of CAD, chronic HFpEF, persistent A. fib anticoagulated on warfarin, renal stone and urosepsis in June 2020, T2DM, HTN, HLD, SSS status post PPM, hypothyroidism, valvular heart disease with mild aortic stenosis and moderate mitral stenosis, MDS presented to ED 11/21 from [facility] d/t acute onset confusion that onset today AM and found to have UTI in the ED. Pt's son Don at bedside. Patient received Rocephin in the ED, will continue with the same for now. No sepsis at presentation. Labs reviewed, fairly closer to her baseline. UA suggestive of UTI, follow-up with urine culture. Admitting imagings reviewed. Meds confirmed w/ Don. Pt already improving on her confusion/metabolic encephalopathy. continue to monitor. Upon examination: GENERAL: Alert and oriented x2. NAD, on RA. HEENT: No pallor, no icterus. Pupils equal, round and reactive to light. Oral mucosa moist. NECK: No JVD, no neck masses. HEART: S1 and S2 heard. Regular rate and rhythm. systolic murmur at aortic > pulmonic area, no gallop. RESPIRATORY SYSTEM: Normal AP diameter. No accessory muscle use. No wheezing, no crackles. ABDOMEN: Soft, bowel sounds present, mild epigastric tenderness, no distention. CENTRAL NERVOUS SYSTEM: No facial droop. Speech is clear. Obeys simple commands. Moves extremities. EXTREMITIES: trace ble edema, no erythema seen. I have seen and examined the patient and have discussed the case with the provider above. I agree with the assessment and plan as stated.
[2021-11-21] MEDS ORDERED: GLUCOSE 10 TAB/TUBE PO PRN (20:09)
[2021-11-21] MEDS ORDERED: GLUCAGON FOR INJ 1 MG VIAL SQ PRN (20:09)
[2021-11-21] MEDS ORDERED: CARBOHYDRATES FOR HYPOGLYCEMIA PO PRN (20:09)
[2021-11-21] MEDS ORDERED: GLUCOSE 40% GEL 15 GM TUBE PO PRN (20:09)
[2021-11-21] MEDS ORDERED: DEXTROSE 50% 50 ML SYRINGE IV PRN (20:09)
[2021-11-21] MEDS ORDERED: WARFARIN SOD 6 MG TAB PO SCH (21:00)
[2021-11-21 23:13] LABS: INR 1.6 (0.9-1.1); Prothrombin Time 16.3 Seconds (9.0-12.0)
[2021-11-21] MEDS ORDERED: POLYETHYLENE (MIRALAX) 17 GM PACK PO PRN (23:40)
[2021-11-21] MEDS ORDERED: ALUMINUM/MAGNESIUM SUSP 30 ML UDC PO PRN (23:40)
[2021-11-21] MEDS ORDERED: ONDANSETRON INJ 2 MG/ML 2 ML VIAL IV PRN (23:40)
[2021-11-21] MEDS ORDERED: MAGNESIUM HYDROXIDE SUSP 30 ML UDC PO PRN (23:40)
[2021-11-22] MEDS: LANTUS PER UNIT CHARGE SQ SCH ×2 (00:17→11:22)
[2021-11-22] MEDS: INSULIN ASPART PER UNIT SC SCH ×5 (00:18→21:40)
[2021-11-22] MEDS: ACETAMINOPHEN 325 MG TAB PO PRN (00:19)
[2021-11-22] MEDS: ENOXAPARIN INJ 40 MG/0.4 ML SYR SQ SCH ×2 (00:58→23:25)
[2021-11-22] MEDS: METHENAMINE HIPPURATE 1 GM TAB PO SCH ×2 (01:34→20:34)
[2021-11-22] MEDS: LEVOTHYROXINE SODIUM 50 MCG TABLET PO SCH (05:44)
[2021-11-22 06:45] LABS: Basophils # (auto) 0.05 K/uL (0-0.2); Basophils % (auto) 1.4 %; Eosinophils # (auto) 0.06 K/uL (0-0.50); Eosinophils % (auto) 1.6 %; Hematocrit (blood only) 31.6 % (34.1-44.9); Hemoglobin 10.2 g/dl (12.0-16.0); Immature Granulocytes # (auto) 0.01 K/uL (0.00-0.02); Immature Granulocytes % (auto) 0.3 %; Lymphocytes # (auto) 0.83 K/uL (1.2-3.4); Lymphocytes % (auto) 22.6 %; Mean Corpuscular Hemoglobin 30.5 pg (25.0-34.0); Mean Corpuscular Hgb Conc 32.3 g/dL (32.0-36.0); Mean Corpuscular Volume 94.6 fL (80.0-100.0); Mean Platelet Volume 9.9 fL (9.4-12.3); Monocytes # (auto) 0.34 K/uL (0.24-0.82); Monocytes % (auto) 9.2 %; Neutrophils # (auto) 2.39 K/uL (1.4-6.5); Neutrophils % (auto) 64.9 %; Platelet Count 201 K/uL (130-400); RDW Coefficient of Variation 13.4 % (11.5-14.5); RDW Standard Deviation 46.2 fL (36.4-46.3); Red Blood Count 3.34 M/uL (3.93-5.22); White Blood Count 3.68 K/ul (4.8-10.8)
[2021-11-22 06:55] LABS: INR 1.6 (0.9-1.1); Prothrombin Time 16.5 Seconds (9.0-12.0)
[2021-11-22 07:18] LABS: Albumin Globulin Ratio 1.3 (0.9-2); Albumin Level 3.2 gm/dl (3.4-5.0); BUN Creatinine Ratio 22.3 (10-20); Bilirubin,Total 0.5 mg/dl (0.2-1.0); Calcium 8.4 mg/dl (8.5-10.1); Creatinine Clr Calc Pharmacy 45.2 ml/min; Est GFR (African American) 65.5 ml/min; Est GFR (Non-African American) 56.5 ml/min; Globulin 2.4 gm/dl (2.5-4.0); Total Protein 5.6 gm/dl (6.0-8.3)
[2021-11-22 08:04] LABS: Estimated Average Glucose 134 mg/dl; Hemoglobin A1C 6.3 % (4.5-5.6)
[2021-11-22] MEDS: CITALOPRAM 40 MG TAB PO SCH (09:57)
[2021-11-22] MEDS: SPIRONOLACTONE 12.5 MG TAB PO SCH (09:58)
[2021-11-22] MEDS: CLOPIDOGREL BISULFATE 75 MG TAB PO SCH (09:58)
[2021-11-22] MEDS: FAMOTIDINE 20 MG TAB PO SCH (09:58)
[2021-11-22] MEDS: METOPROLOL SUCC 25MG EXT REL TAB PO SCH (09:58)
[2021-11-22] MEDS: FUROSEMIDE 20 MG TAB PO SCH (09:58)
--- NOTE | 2021-11-22 18:04 | Hospitalist Progress Note ---
Date of Service November 22, 2021 Assessment & Plan (1) Acute UTI (urinary tract infection): (2) Encephalopathy, metabolic: (3) DM type 2 (diabetes mellitus, type 2): (4) Chronic heart failure with preserved ejection fraction (HFpEF): (5) Afib: (6) MDS (myelodysplastic syndrome): Plan This is a 79-year-old female who has significant past medical history of CAD, chronic HFpEF, persistent A. fib anticoagulated on warfarin, T2DM, HTN, HLD, SSS status post PPM, hypothyroidism, valvular heart disease with mild aortic stenosis and moderate mitral stenosis, MDS, hx of gastric bypass surg, who presents to ED from [facility] secondary toill feeling, NELSON and confusion x 1 day. UTI pt does not meet criteria for sirs/sepsis previously culture grew pansensitive e.coli Urine cx this admission grew gram negative bacilli Continue IV Rocephin day 2 Follow up urine sensitivity Metabolic encephalopathy Mostly related to UTI CT head showed no acute intracranial abnormality Mental status improved Continue PT/OT eval fall precaution CAD Chronic heart failure with preserved ejection fraction valvular heart disease last echo 09/2020 EF 65-70%, no WMA, mild aortic valve stenosis, biatrial enlargement, severe mitral calcification and mild to mod mitral stenosis, mod to severe tricuspid insuff continue plavix, metoprolol, aldactone Stable Atrial Fib -permanent SSS S/p PPM continue metoprolol and warfarin INR 1.6 today Continue monitor PT/INR T2DM Most recent Hba1c 6.3 ( 11/22/21) Hypoglycemic episode this morning with BS dropped 65 Will hold Lantus Continue monitor BS CKD-3a Creatinine Stable Stable Anemia hx of MDS Hgb 10.2 today Continue monotor CBC Dispo: Med/Surg PCP: Dilia/Mitchell kelsey DNR/DNI Admission and Anticipated Discharge Date Admission Date: November 21, 2021 Subjective Pt was seen and examined for follow up of confusion and feeling ill Lying in bed with no acute distress Pt said that she feels a lot better She said that she was able to tolerate her diet Denies any chest pain, palpitation, dizziness and SOB Review of Systems Review of Systems: All systems reviewed & are unremarkable except as noted in Subjective Physical Exam Physical Exam: General- No acute distress Head- atraumatic Eyes- PERRL, EOMI, ENT- oropharynx clear Neck- supple, no JVD Lungs- clear to auscultation Heart- regular rhythm; + murmur Abdomen- normal bowel sounds, soft, nontender Extremities- no calf tenderness Neuro- alert, oriented x 3; PERRL, EOMI; no facial palsy; no dysarthria Skin- warm & dry Results & Data Results & Data ([facility]) Vital Signs (Past 12 Hours) Vital Signs Temp Pulse Resp BP Pulse Ox O2 Del Method 11/22/21 15:23 36.8 C 63 16 134/75 100 Room Air 11/22/21 07:33 36.4 C L 73 12 117/66 100 Room Air
[2021-11-22] MEDS ORDERED: cefTRIAXone SODIUM 2,000 MG in DEXTROSE 5% 50 ML IV SCH (20:00)
[2021-11-22] MEDS ORDERED: WARFARIN SOD 3 MG TAB PO SCH (21:00)
[2021-11-23] MEDS: LEVOTHYROXINE SODIUM 50 MCG TABLET PO SCH (05:05)
[2021-11-23] MEDS: FUROSEMIDE 20 MG TAB PO SCH (07:56)
[2021-11-23] MEDS: METOPROLOL SUCC 25MG EXT REL TAB PO SCH (07:56)
[2021-11-23] MEDS: SPIRONOLACTONE 12.5 MG TAB PO SCH (07:56)
[2021-11-23] MEDS: CLOPIDOGREL BISULFATE 75 MG TAB PO SCH (07:57)
[2021-11-23] MEDS: CITALOPRAM 40 MG TAB PO SCH (07:57)
[2021-11-23] MEDS: FAMOTIDINE 20 MG TAB PO SCH (08:00)
[2021-11-23 08:09] LABS: Hematocrit (blood only) 33.1 % (34.1-44.9); Hemoglobin 10.9 g/dl (12.0-16.0); Mean Corpuscular Hemoglobin 30.2 pg (25.0-34.0); Mean Corpuscular Hgb Conc 32.9 g/dL (32.0-36.0); Mean Corpuscular Volume 91.7 fL (80.0-100.0); Mean Platelet Volume 10.6 fL (9.4-12.3); Platelet Count 208 K/uL (130-400); RDW Coefficient of Variation 13.2 % (11.5-14.5); RDW Standard Deviation 44.5 fL (36.4-46.3); Red Blood Count 3.61 M/uL (3.93-5.22); White Blood Count 3.66 K/ul (4.8-10.8)
[2021-11-23] MEDS: INSULIN ASPART PER UNIT SC SCH ×2 (08:09→12:54)
[2021-11-23 08:18] LABS: INR 1.5 (0.9-1.1); Prothrombin Time 15.8 Seconds (9.0-12.0)
[2021-11-23 08:33] LABS: BUN Creatinine Ratio 16.8 (10-20); Calcium 8.8 mg/dl (8.5-10.1); Creatinine Clr Calc Pharmacy 39.7 ml/min; Est GFR (Non-African American) 48.3 ml/min
[2021-11-23] MEDS: ACETAMINOPHEN 325 MG TAB PO PRN (09:20)
[2021-11-23] MEDS ORDERED: cephALEXin 500 MG CAP PO STA (15:05)
--- NOTE | 2021-12-06 10:01 | Discharge Summary ---
Date of Service November 23, 2021 Admission HPI Per Admitting Provider This is a 79-year-old female who has significant past medical history of CAD, chronic HFpEF, persistent A. fib anticoagulated on warfarin, T2DM, HTN, HLD, SSS status post PPM, hypothyroidism, valvular heart disease with mild aortic stenosis and moderate mitral stenosis, MDS who presents to ED from [facility] secondary toill feeling, NELSON and confusion x 1 day. She was at her baseline last night. Son is at bedside. He received a call from nurse today that she vomited, was more confused and hallucinating. Last night son said he complained of NELSON and feeling cold. Pt states, "I just don't feel good." She complains of a NELSON and feeling, "blah." NELSON started yesterday. It is located on the top of head/toward front. NELSON has been constant since yesterday. She feels overall she hasn't felt well for about a week. She denies sore throat, URI sx, cough, f/c/s, dizziness, lightheaded, chest pain, sob, palpitations, nausea, diarrhea, increased urg/freq since yesterday. She does have difficulty with narda l movements and it alternates between constipation/diarrhea, but this is normal for her. She complains of general abdominal pain and dysuria that started yesterday. History provided by patient and son. Patient's history slightly unreliable given underlying confusion. In ED patient remained hemodynamically stable. There was no clear signs of sepsis. Lab work notable for mild leukopenia at 4.37k, BUN/creatinine 21.02, glucose 122 and abnormal urinalysis concerning for infection. Head CT was without acute abnormality. She was treated with empiric IV Rocephin and started on gentle hydration. Admission Exam Per Admitting Provider GENERAL: Alert and oriented x2. NAD, on RA. HEENT: No pallor, no icterus. Pupils equal, round and reactive to light. Oral mucosa moist. NECK: No JVD, no neck masses. HEART: S1 and S2 heard. Regular rate and rhythm. systolic murmur at aortic > pulmonic area, no gallop. RESPIRATORY SYSTEM: Normal AP diameter. No accessory muscle use. No wheezing, no crackles. ABDOMEN: Soft, bowel sounds present, mild epigastric tenderness, no distention. CENTRAL NERVOUS SYSTEM: No facial droop. Speech is clear. Obeys simple commands. Moves extremities. EXTREMITIES: trace ble edema, no erythema seen. Principal Diagnosis (1) Acute UTI (urinary tract infection): (2) Encephalopathy, metabolic: (3) DM type 2 (diabetes mellitus, type 2): (4) Chronic heart failure with preserved ejection fraction (HFpEF): (5) Afib: (6) MDS (myelodysplastic syndrome): Discharge Exam General- No acute distress Head- atraumatic Eyes- PERRL, EOMI, ENT- oropharynx clear Neck- supple, no JVD Lungs- clear to auscultation Heart- regular rhythm; + murmur Abdomen- normal bowel sounds, soft, nontender Extremities- no calf tenderness Neuro- alert, oriented x 3; PERRL, EOMI; no facial palsy; no dysarthria Skin- warm & dry Discharge Data Allergies Allergy/AdvReac Type Severity Reaction Status Date / Time adhesive Allergy Unknown ADHESIVE Verified 11/21/21 20:22 TAPE Consultations 11/21/21 19:35 ED Decision to Admit Stat Ordered Studies 11/21/21 16:57 CT head/brain wo con Stat Laboratory Results WBC 3.66 K/ul (4.8-10.8) L 11/23/21 07:25 RBC 3.61 M/uL (3.93-5.22) L 11/23/21 07:25 Hgb 10.9 g/dl (12.0-16.0) L 11/23/21 07:25 Hct 33.1 % (34.1-44.9) L 11/23/21 07:25 MCV 91.7 fL (80.0-100.0) 11/23/21 07:25 MCH 30.2 pg (25.0-34.0) 11/23/21 07:25 MCHC 32.9 g/dL (32.0-36.0) 11/23/21 07:25 RDW Std Deviation 44.5 fL (36.4-46.3) 11/23/21 07:25 RDW Coeff of [place] 13.2 % (11.5-14.5) 11/23/21 07:25 Plt Count 208 K/uL (130-400) 11/23/21 07:25 MPV 10.6 fL (9.4-12.3) 11/23/21 07:25 Immature Gran % (Auto) 0.3 % 11/22/21 06:27 Neut % (Auto) 64.9 % 11/22/21 06:27 Lymph % (Auto) 22.6 % 11/22/21 06:27 [place] % (Auto) 9.2 % 11/22/21 06:27 Eos % (Auto) 1.6 % 11/22/21 06:27 Baso % (Auto) 1.4 % 11/22/21 06:27 Neut # (Auto) 2.39 K/uL (1.4-6.5) 11/22/21 06:27 Lymph # (Auto) 0.83 K/uL (1.2-3.4) L 11/22/21 06:27 [place] # (Auto) 0.34 K/uL (0.24-0.82) 11/22/21 06:27 Eos # (Auto) 0.06 K/uL (0-0.50) 11/22/21 06:27 Baso # (Auto) 0.05 K/uL (0-0.2) 11/22/21 06:27 Immature Gran # (Auto) 0.01 K/uL (0.00-0.02) 11/22/21 06:27 PT 15.8 Seconds (9.0-12.0) H 11/23/21 07:25 INR 1.5 (0.9-1.1) H 11/23/21 07:25 Sodium 139 mmol/L (136-145) 11/23/21 07:25 Potassium 4.0 mmol/L (3.5-5.1) 11/23/21 07:25 Chloride 106 mmol/L (98-107) 11/23/21 07:25 Carbon Dioxide 28 mmol/L (21-32) 11/23/21 07:25 Anion Gap 5 (3-11) 11/23/21 07:25 BUN 18 mg/dl (6-23) 11/23/21 07:25 Creatinine 1.07 mg/dl (0.6-1.2) 11/23/21 07:25 Est Cr Clr Drug Dosing 39.7 ml/min 11/23/21 07:25 Est GFR ( Amer) 56.0 ml/min 11/23/21 07:25 Est GFR (Non-Af Amer) 48.3 ml/min 11/23/21 07:25 BUN/Creatinine Ratio 16.8 (10-20) 11/23/21 07:25 Glucose 85 mg/dl (70-99(Fasting)) 11/23/21 07:25 POC Glucose 159 mg/dl (70-99) H 11/23/21 12:04 Estimat Average Glucose 134 mg/dl 11/22/21 06:27 Hemoglobin A1c 6.3 % (4.5-5.6) H 11/22/21 06:27 Calcium 8.8 mg/dl (8.5-10.1) 11/23/21 07:25 Magnesium 2.0 mg/dl (1.7-2.4) 11/22/21 06:27 Total Bilirubin 0.5 mg/dl (0.2-1.0) 11/22/21 06:27 AST 12 U/L (13-39) L 11/22/21 06:27 ALT 7 U/L (7-52) 11/22/21 06:27 Alkaline Phosphatase 76 U/L (34-104) 11/22/21 06:27 Total Protein 5.6 gm/dl (6.0-8.3) L 11/22/21 06:27 Albumin 3.2 gm/dl (3.4-5.0) L 11/22/21 06:27 Globulin 2.4 gm/dl (2.5-4.0) L 11/22/21 06:27 Albumin/Globulin Ratio 1.3 (0.9-2) 11/22/21 06:27 Urine Color Yellow 11/21/21 17:52 Urine Appearance Turbid (Clear) A 11/21/21 17:52 Urine pH 5.5 (4.5-7.5) 11/21/21 17:52 Ur Specific [place] 1.012 (1.000-1.030) 11/21/21 17:52 Urine Protein Trace (Negative) H 11/21/21 17:52 Urine Glucose (UA) Negative (Negative) 11/21/21 17:52 Urine Ketones Negative (Negative) 11/21/21 17:52 Urine Blood 2+ (Negative) H 11/21/21 17:52 Urine Nitrite Negative (Negative) 11/21/21 17:52 Urine Bilirubin Negative (Negative) 11/21/21 17:52 Urine Urobilinogen Negative (Negative) 11/21/21 17:52 Ur Leukocyte Esterase 3+ (Negative) H 11/21/21 17:52 Urine WBC (Auto) >30 /hpf (0-5) H 11/21/21 17:52 Urine RBC (Auto) 5-10 /hpf (0-4) H 11/21/21 17:52 U Hyaline Cast (Auto) 1-5 /lpf (0-5) 11/21/21 17:52 U Epithel Cells (Auto) >30 /lpf (0-5) H 11/21/21 17:52 Urine Bacteria (Auto) 4+ (Negative) H 11/21/21 17:52 Nasal Screen MRSA (PCR) Negative (Negative) 11/22/21 01:00 SARS-CoV-2, RNA, NAAT NEGATIVE (NEGATIVE) 11/21/21 19:[address] 11/21/21 16:57 CT SCAN OF THE BRAIN WITHOUT IV CONTRAST CLINICAL HISTORY: Headache. COMPARISON STUDY: CT of the brain dated 10/25/2020 TECHNIQUE: Unenhanced axial CT scan of the brain is performed from the vertex to the skull base. A dose lowering technique was utilized adhering to the principles of ALARA. CT DOSE: 853.38 mGy.cm FINDINGS: Brain parenchyma: There is age-related involutional change noting moderate subcortical and periventricular microangiopathic disease. There is no hemorrhage, mass effect, or evidence of acute territorial ischemia by CT criteria. There is a tiny chronic lacunar infarct in the right cerebellar hemisphere. Adames-white matter differentiation is preserved. No extra-axial fluid collection is seen. Ventricles, sulci, cisterns: Prominent secondary to involutional change. Intracranial vasculature: There is atherosclerotic calcification of the cavernous carotid and vertebral artery. Calvarium: Unremarkable. Sinuses and mastoids: The visualized paranasal sinuses are clear. The mastoid air cells are well pneumatized. Orbits: The bony orbits are grossly intact. There are bilateral ocular lens implants. IMPRESSION: There is no hemorrhage, mass effect, or evidence of acute territorial ischemia by CT criteria. ACT 112: Negative or not required by law. Electronically signed by: Luis Fernando Murdock M.D. 11/21/2021 5:34 PM Hospital Course (1) Acute UTI (urinary tract infection): (2) Encephalopathy, metabolic: (3) DM type 2 (diabetes mellitus, type 2): (4) Chronic heart failure with preserved ejection fraction (HFpEF): (5) Afib: (6) MDS (myelodysplastic syndrome): Plan This is a 79-year-old female who has significant past medical history of CAD, chronic HFpEF, persistent A. fib anticoagulated on warfarin, T2DM, HTN, HLD, SSS status post PPM, hypothyroidism, valvular heart disease with mild aortic eamon nosis and moderate mitral stenosis, MDS, hx of gastric bypass surg, who presents to ED from [facility] secondary toill feeling, NELSON and confusion x 1 day. UTI pt does not meet criteria for sirs/sepsis previously culture grew pansensitive e.coli Urine cx this admission grew gram negative bacilli Continue IV Rocephin day 2 Follow up urine sensitivity Will change IV rocephin to Keflex Metabolic encephalopathy Mostly related to UTI CT head showed no acute intracranial abnormality Mental status improved Continue PT/OT eval fall precaution CAD Chronic heart failure with preserved ejection fraction valvular heart disease last echo 09/2020 EF 65-70%, no WMA, mild aortic valve stenosis, biatrial en largement, severe mitral calcification and mild to mod mitral stenosis, mod to severe tricuspid insuff continue plavix, metoprolol, aldactone Stable Atrial Fib -permanent SSS S/p PPM continue metoprolol and warfarin INR 1.6 today Continue monitor PT/INR Follow up with the coumadin clinic T2DM Most recent Hba1c 6.3 ( 11/22/21) Hypoglycemic episode this morning with BS dropped 65 Will hold Lantus Will decrease lantus to 5 units on discharge Continue monitor BS CKD-3a Creatinine Stable Stable Anemia hx of MDS Hgb 10.2 today Continue monotor CBC Dispo: Med/Surg PCP: Dilia/Mitchell kelsey DNR/DNI Total Time Total Time Spent Total Time Spent (In Minutes): 35 minutes Discharge Plan Discharge Items Patient Disposition: Personal Residential Reason For Visit: UTI Discharge Diagnosis: (1) Acute UTI (urinary tract infection): (2) Encephalopathy, metabolic: (3) DM type 2 (diabetes mellitus, type 2): (4) Chronic heart failure with preserved ejection fraction (HFpEF): (5) Afib: (6) MDS (myelodysplastic syndrome): Activity: Resume your previous activity Non-emergency contact: Primary Care Provider Call non-emergency contact if: you have any medication questions and your temperature is above 101 Follow-up/Referrals: COBY JO CHELSEA [Primary Care Provider] - Diet: Carb Consistent or DM2 Addtl Attending Provider Instructions: Follow up with your primary care provider within 1 week Follow up with your Coumadin clinic to monitor your PT/INR (Check INR on Thursday) Continue physical and occupation therapy Continue monitor your blood sugar and bring your blood sugar log at your next appointment with your provider Complete the course of the antibiotic with Keflex Fall precaution Lantus decrease to 5 units once a day Coumadin 3 mg changed to 4 mg ( to take on Thursday only ) Seek medical attention if your symptoms reoccur. Pending Studies at Discharge: No Stand-Alone Forms: My [employer], Smoking Cessation Skilled Items Patient informed of condition?: Yes DNR: Yes Discharge Level of Care: Other Communicable Disease: No Discharge Prognosis: Stable Lines: None Urinary Catheter: No Medications and DC Order Prescriptions: New warfarin 4 mg tablet 4 mg PO UD Qty: 30 0RF Rx Instructions: Take on Thursday only Continued citalopram 40 mg Tablet 40 mg PO QAM Qty: 30 0RF clopidogrel 75 mg Tablet 75 mg PO QAM Qty: 30 0RF methenamine hippurate 1 gram Tablet 1 g PO HS Qty: 30 0RF famotidine 20 mg Tablet 20 mg PO QAM Qty: 30 0RF levothyroxine [Synthroid] 50 mcg Tablet 50 mcg PO DAILYBB Qty: 30 0RF furosemide 20 mg Tablet 20 mg PO QAM Qty: 30 0RF metoprolol succinate 25 mg Tablet Extended Release 24 Hr 12.5 mg PO DAILY Qty: 30 0RF ferrous sulfate 325 mg (65 mg iron) Tablet,Delayed Release (Dr/Ec) 325 mg PO BID Qty: 60 0RF warfarin 6 mg tablet 6 mg PO [id number] Rx Instructions: take in evening every day except fridays TAKE 3 MG ON FRIDAYS spironolactone 25 mg Tablet 12.5 mg PO QAM Rx Instructions: 1/2 tablet dose multivitamin [Daily-Nori] Tablet 1 tab PO DAILY Culturelle 2 cap PO DAILY Changed insulin glargine [Lantus Solostar U-100 Insulin] 100 unit/mL (3 mL) Insulin Pen 5 unit SC DAILY Qty: 10 0RF Discontinued warfarin 3 mg tablet 3 mg PO .WEEKLY ON FRIDAYS Discharge Orders: Discharge Order (Routine); Ordered 11/23/21 Ordered By: Leslye Conley Admission Data Admit Date/Time: 11/21/21 19:50 Attending Provider: Leslye Conley Admit Provider: Shelby Cole Primary Care Provider: COBY JO CHELSEA Other Providers: Shelby Cole Other Interventions: Discharge Summary Assessment (RN) Last Done: 11/23/21 15:18
== END 2021-11-23 15:39 | disposition home or self-care (01) | DRG 689 ==
LOC: ED 15:47 → SUATTDRO 19:50 → 3E 19:50

== ENCOUNTER 2022-08-20 18:04 | Inpatient (IN) ==
[2022-08-20 18:54] LABS: Basophils # (auto) 0.03 K/uL (0-0.2); Basophils % (auto) 0.3 %; Hematocrit (blood only) 29.1 % (37.0-47.0); Immature Granulocytes # (auto) 0.06 K/uL (0.01-0.20); Immature Granulocytes % (auto) 0.6 %; Lymphocytes # (auto) 0.47 K/uL (1.2-3.4); Lymphocytes % (auto) 4.9 %; Mean Corpuscular Hemoglobin 31.6 pg (25.0-34.0); Mean Corpuscular Hgb Conc 34.4 g/dL (32.0-36.0); Mean Corpuscular Volume 92.1 fL (80.0-100.0); Mean Platelet Volume 11.5 fL (9.4-12.4); Monocytes # (auto) 0.47 K/uL (0.11-0.59); Monocytes % (auto) 4.9 %; Neutrophils # (auto) 8.58 K/uL (1.40-6.50); Neutrophils % (auto) 89.3 %; Platelet Count 166 K/uL (130-400); RDW Coefficient of Variation 12.9 % (11.5-14.5); RDW Standard Deviation 43.1 fL (36.4-46.3); Red Blood Count 3.16 M/uL (4.20-5.40); White Blood Count 9.61 K/ul (4.8-10.8)
[2022-08-20] MEDS ORDERED: SODIUM CHLORIDE 0.9% 500 ML IV ONE (18:58)
[2022-08-20] MEDS ORDERED: MoRPHine SULFATE 2 MG/ML CARP IV STA (19:00)
--- NOTE | 2022-08-20 19:00 | Emergency Department Note ---
Impression & Plan Closed pelvic fracture, Anemia, Closed sacral fracture, Elevated INR ED Provider Note NAME: MARY PATTERSON AGE: 81 SEX: F : 1940 ARRIVES VIA: Walk-In INFORMANT: Patient ED PROVIDER(S): Bob Hackett DO CHIEF COMPLAINT: syncope HPI: Patient is an 81-year-old female with a past medical history of decompensated heart failure, anxiety, GERD, A-fib, CAD and asthma that presents to the ER for sacral/coccyx pain. Patient notes that she passed out today and yesterday. She notes she is getting lightheaded. She denies any headache or neck pain. No chest pain or belly pain. She notes pain is right behind her anus/rectum. She denies any other extremity pain. No dysuria, urgency, or frequency. She stopped taking her Coumadin last night per request of her prov iders. She also takes Plavix. PAST MEDICAL HISTORY:See Below PAST SURGICAL HISTORY:See Below FAMILY HISTORY:See Below SOCIAL HISTORY:See Below HOME MEDICATIONS:See Below ALLERGIES:See Below VITALS:See Below PHYSICAL EXAMINATION: GENERAL: alert, well appearing, well nourished, no distress, non-toxic HEAD: normal cephalic, atraumatic EYE EXAM: normal conjunctiva, PERRL and EOM's grossly intact OROPHARYNX: no exudate, no erythema, lips, buccal mucosa, and tongue normal and mucous membranes are moist NECK: supple, no nuchal rigidity, no adenopathy, non-tender CHEST: stable to compression anteriorly and posteriorly LUNGS: clear to auscultation. Normal chest wall mechanics HEART: no murmurs, S1 normal and S2 normal ABDOMEN: abdomen soft, non-tender, normo-active bowel sounds, no masses, no rebound or guarding. PELVIS: stable to compression anteriorly and posteriorly with tenderness of the coccyx BACK: Back is symmetrical on inspection and there is no deformity, no midline tenderness, no CVA tenderness. UPPER EXTREMITIES: full active and passive range of motion of all joints without tenderness to palpation LOWER EXTREMITIES: full active and passive range of motion of all joints without tenderness to palpation NEURO EXAM: Normal sensorium, cranial nerves II-XII grossly intact, normal speech, no gross weakness of arms, no gross weakness of legs. GCS: 15. MEDICAL DECISION MAKING: Patient is a 1-year-old female who presents ER for above-stated complaint. IV was established blood work was obtained. External records reviewed. Labs show no significant leukocytosis. Mild anemia 10. INR supratherapeutic at greater than 9.5. 10 units of vitamin K given with a history of A-fib and a pelvic fracture although no intra-abdominal bleeding. BUN mildly elevated at 33. Creatinine 1.6. Glucose slightly up at 213. Troponin mildly elevated at 30. UA was clean. COVID was negative. X-rays of the pelvis show a left pelvic inferior and superior ring fracture. CT of the head and cervical spine was negative. After the elevated INR returned I did CT the chest and the pelvis which showed a sacral fracture as well. She was given IV morphine. She was given IV fluids. She was comfortable. Updated family at bedside. Discussed with Dr. Espinosa and he agrees with admission and eval in the morning. Discussed with Dr. Mahajan approved for further evaluation management and treatment. Triage Nursing notes reviewed. Limited review of prior medical records performed Vital Signs: reviewed and remarkable for hypotension Differential diagnosis: Differential diagnosis includes etiologies such as vasovagal event, infection, hypoglycemia, electrolyte abnormalities, cardiac sources, intracerebral event, toxicologic, neurologic, as well as others were entertained. ER treatment provided: See below Diagnostics interpreted by me include EKG and cardiac monitoring as listed below: -Cardiac Monitoring: An order was placed for continuous cardiac monitoring. The monitor shows a rate of 90 with AFIB rhythm. -ECG: A-fib rate of 102 Left axis Right bundle branch block T wave inversion in V1 through V6 QTc 448 T wave inversions are new in the lateral leads comparison to old -Laboratory studies:Interpreted by me as stated above in MDM and shown below. Imaging studies: Xrays: As interpreted by me: X-ray of the pelvis shows left pelvic ring fracture CTs show: CT head, cervical spine, chest abdomen pelvis as described above Consultation(s): As described in MDM Procedures:none Critical Care: None Past Med/Surg History Medical History Anemia Aortic root dilatation 4.4 cm on echo 01/2019 Aortic root normal size on 02/2020 ECHO Asthma Atrial fibrillation Bifascicular block CAD (coronary artery disease) "1995 - PTCA and stenting of RCA 07/2011 - atherectomy and stenting RCA 12/2011- AZALIA to the mid LAD 2016-Cobra stent to mid LAD 2017-AZALIA to ostial diagonal Calculus of distal left ureter Closed fracture of left hip February 2020trochanteric nail placed by Ortho Congestive heart failure Depression DM type 2 (diabetes mellitus, type 2) Dyslipidemia GERD (gastroesophageal reflux disease) Hypertension Hypothyroidism HOMERO (iron deficiency anemia) Macular degeneration MDS (myelodysplastic syndrome) Mild aortic stenosis Per 02/19/20 ECHO- ASHLEY 1.84 cm; AV max velocity 2.491 m/s; AV mean PG 13.6 mmHg Mitral stenosis Moderate per 02/2020 ECHO Pacemaker Sinus node dysfunction VRE (vancomycin resistant enterococcus) culture positive Surgical History History of angioplasty History of arthroscopy of knee History of arthroscopy of shoulder History of cholecystectomy History of gastric bypass History of incisional hernia repair History of partial hysterectomy History of tonsillectomy Family History Father Colorectal cancer Sister Lung cancer Diabetes Brother Diabetes Mother Diabetes Social History Smoking Status: Never smoker Second Hand Exposure: No; Do You Dip or Chew Tobacco: No; Hx Alcohol Use: No Hx Substance Use: No Preferred Language: Serbian Communication Ability: Effective Visual Impairment: No Limitations Hearing Ability: Normal Flue Lining Dipper Required: No Beliefs That Will Affect Care: None marital status: / Current Living Situation: Personal Care Facility Current Living Situation Comment: son and grandaughter current occupational status: retired How many Children do You have: 3 Feels Safe at Home: Yes Assistive Devices: Cane, Walker and Wheelchair Allergies Allergies Allergy/AdvReac Type Severity Reaction Status Date / Time adhesive Allergy Unknown ADHESIVE Verified 02/20/22 09:19 TAPE Home Meds Home Medications Medication Instructions Recorded Confirmed warfarin 6 mg tablet 6 mg PO [id number] 06/14/21 08/20/22 Culturelle 2 cap PO DAILY 11/21/21 08/20/22 multivitamin (Daily-Nori tablet) 1 tab PO DAILY 11/21/21 08/20/22 spironolactone 25 mg tablet 12.5 mg PO QAM 11/21/21 08/20/22 magnesium oxide 400 mg PO HS 08/20/22 08/20/22 riboflavin (vitamin B2) 400 mg 400 mg PO HS 08/20/22 08/20/22 tablet warfarin 3 mg tablet 3 mg PO WK 08/20/22 08/20/22 Previous Rx's Medication Instructions Recorded citalopram 40 mg tablet 40 mg PO QAM #30 tabs 10/29/20 clopidogrel 75 mg tablet 75 mg PO QAM #30 tabs 10/29/20 famotidine 20 mg tablet 20 mg PO QAM #30 tabs 10/29/20 ferrous sulfate 325 mg (65 mg 325 mg PO BID #60 tabs 10/29/20 iron) tablet,delayed release furosemide 20 mg tablet 20 mg PO QAM #30 tabs 10/29/20 levothyroxine 50 mcg tablet 50 mcg PO DAILYBB #30 tabs 10/29/20 (Synthroid) methenamine hippurate 1 gram tablet 1 g PO HS #30 tabs 10/29/20 metoprolol succinate 25 mg 12.5 mg PO DAILY #30 tabs 10/29/20 tablet,extended release 24 hr insulin glargine 100 unit/mL (3 5 unit (0.05 mL) SC DAILY #10 mL 11/23/21 mL) subcutaneous pen (Lantus Solostar U-100 Insulin) Results & Data (ED) Vital Signs Vital Signs - 24 hr 08/20/22 18:07 08/20/22 19:30 08/20/22 19:30 Temperature 36.8 C Temperature Source Temporal Artery Scan Pulse Rate 95 H 87 Pulse Rate [Apical] 87 Pulse Rate from SpO2 Sensor Respiratory Rate 18 20 20 Respiratory Effort / Characteristics Non-Labored Spontaneous Respiratory Depth Normal Respiratory Pattern Regular Blood Pressure 96/54 L Blood Pressure [Left Arm] 147/89 H Blood Pressure Mean 68 Blood Pressure Mean [Left Arm] 108 Blood Pressure Position Sitting Blood Pressure Position [Left Arm] Lying Pulse Oximetry 93 96 96 Oxygen Delivery Method Room Air Room Air Room Air Sepsis Recent Fever Within 48 Hours No Sepsis New/Unexplained Change in Mental Status N/A Sepsis Action Taken by Nursing No Action Required 08/20/22 19:37 08/20/22 20:35 Temperature Temperature Source Pulse Rate 100 H 88 Pulse Rate [Apical] Pulse Rate from SpO2 Sensor 88 Respiratory Rate 22 Respiratory Effort / Characteristics Respiratory Depth Respiratory Pattern Blood Pressure 129/94 Blood Pressure [Left Arm] Blood Pressure Mean 105 Blood Pressure Mean [Left Arm] Blood Pressure Position Blood Pressure Position [Left Arm] Pulse Oximetry 95 Oxygen Delivery Method Room Air Sepsis Recent Fever Within 48 Hours Sepsis New/Unexplained Change in Mental Status Sepsis Action Taken by Nursing Laboratory Data 08/20/22 18:23 08/20/22 18:23 Lab Results 08/20/22 08/20/22 08/20/22 Range/Units 18:23 18:23 18: WBC 9.61 (4.8-10.8) K/ul RBC 3.16 L (4.20-5.40) M/uL Hgb 10.0 L (12.0-16.0) g/dl Hct 29.1 L (37.0-47.0) % MCV 92.1 (80.0-100.0) fL MCH 31.6 (25.0-34.0) pg MCHC 34.4 (32.0-36.0) g/dL RDW Std Deviation 43.1 (36.4-46.3) fL RDW Coeff of Gaston 12.9 (11.5-14.5) % Plt Count 166 (130-400) K/uL MPV 11.5 (9.4-12.4) fL Immature Gran % (Auto) 0.6 % Neut % (Auto) 89.3 % Lymph % (Auto) 4.9 % [place] % (Auto) 4.9 % Eos % (Auto) 0.0 % Baso % (Auto) 0.3 % Neut # (Auto) 8.58 H (1.40-6.50) K/uL Lymph # (Auto) 0.47 L (1.2-3.4) K/uL [place] # (Auto) 0.47 (0.11-0.59) K/uL Eos # (Auto) 0.00 (0-0.50) K/uL Baso # (Auto) 0.03 (0-0.2) K/uL Immature Gran # (Auto) 0.06 (0.01-0.20) K/uL PT > 90.0 H (9.0-12.0) Seconds INR > 9.5 H* (0.9-1.1) APTT 49.8 H* (21.0-31.0) Seconds PTT Ratio 1.8 Sodium 137 (136-145) mmol/L Potassium 3.8 (3.5-5.1) mmol/L Chloride 101 (98-107) mmol/L Carbon Dioxide 21 (21-32) mmol/L Anion Gap 15 H (3-11) BUN 33 H (6-23) mg/dl Creatinine 1.60 H (0.6-1.2) mg/dl Est Cr Clr Drug Dosing Not Reportable Est GFR ( Amer) 34.2 ml/min Est GFR (Non-Af Amer) 29.5 ml/min BUN/Creatinine Ratio 20.6 H (10-20) Glucose 213 H (70-99(Fasting)) mg/dl Calcium 9.4 (8.6-10.3) mg/dl Total Bilirubin 0.8 (0.2-1.0) mg/dl AST 35 (13-39) U/L ALT 22 (7-52) U/L Alkaline Phosphatase 82 (34-104) U/L Troponin I High Sens 30.6 H (0-14) pg/ml Total Protein 6.8 (6.0-8.3) gm/dl Albumin 3.8 (3.4-5.0) gm/dl Globulin 3.0 (2.5-4.0) gm/dl Albumin/Globulin Ratio 1.3 (0.9-2) Urine Color Urine Appearance (Clear) Urine pH (4.5-7.5) Ur Specific [place] (1.000-1.030) Urine Protein (Negative) Urine Glucose (UA) (Negative) Urine Ketones (Negative) Urine Blood (Negative) Urine Nitrite (Negative) Urine Bilirubin (Negative) Urine Urobilinogen (Negative) Ur Leukocyte Esterase (Negative) Urine WBC (Auto) (0-5) /hpf Urine RBC (Auto) (0-4) /hpf U Hyaline Cast (Auto) (0-5) /lpf U Epithel Cells (Auto) (0-5) /lpf Urine Bacteria (Auto) (Negative) 08/20/22 Range/Units 21:40 WBC (4.8-10.8) K/ul RBC (4.20-5.40) M/uL Hgb (12.0-16.0) g/dl Hct (37.0-47.0) % MCV (80.0-100.0) fL MCH (25.0-34.0) pg MCHC (32.0-36.0) g/dL RDW Std Deviation (36.4-46.3) fL RDW Coeff of Gaston (11.5-14.5) % Plt Count (130-400) K/uL MPV (9.4-12.4) fL Immature Gran % (Auto) % Neut % (Auto) % Lymph % (Auto) % [place] % (Auto) % Eos % (Auto) % Baso % (Auto) % Neut # (Auto) (1.40-6.50) K/uL Lymph # (Auto) (1.2-3.4) K/uL [place] # (Auto) (0.11-0.59) K/uL Eos # (Auto) (0-0.50) K/uL Baso # (Auto) (0-0.2) K/uL Immature Gran # (Auto) (0.01-0.20) K/uL PT (9.0-12.0) Seconds INR (0.9-1.1) APTT (21.0-31.0) Seconds PTT Ratio Sodium (136-145) mmol/L Potassium (3.5-5.1) mmol/L Chloride (98-107) mmol/L Carbon Dioxide (21-32) mmol/L Anion Gap (3-11) BUN (6-23) mg/dl Creatinine (0.6-1.2) mg/dl Est Cr Clr Drug Dosing Est GFR ( Amer) ml/min Est GFR (Non-Af Amer) ml/min BUN/Creatinine Ratio (10-20) Glucose (70-99(Fasting)) mg/dl Calcium (8.6-10.3) mg/dl Total Bilirubin (0.2-1.0) mg/dl AST (13-39) U/L ALT (7-52) U/L Alkaline Phosphatase (34-104) U/L Troponin I High Sens (0-14) pg/ml Total Protein (6.0-8.3) gm/dl Albumin (3.4-5.0) gm/dl Globulin (2.5-4.0) gm/dl Albumin/Globulin Ratio (0.9-2) Urine Color Yellow Urine Appearance Clear (Clear) Urine pH 5.0 (4.5-7.5) Ur Specific [place]ke 1.035 H (1.000-1.030) Urine Protein Negative (Negative) Urine Glucose (UA) Negative (Negative) Urine Ketones Trace H (Negative) Urine Blood 2+ H (Negative) Urine Nitrite Negative (Negative) Urine Bilirubin Negative (Negative) Urine Urobilinogen Negative (Negative) Ur Leukocyte Esterase Negative (Negative) Urine WBC (Auto) 1-5 (0-5) /hpf Urine RBC (Auto) 0-4 (0-4) /hpf U Hyaline Cast (Auto) 1-5 (0-5) /lpf U Epithel Cells (Auto) >30 H (0-5) /lpf Urine Bacteria (Auto) 4+ H (Negative) Administered Medications Discontinued Medications Sodium Chloride (Nss) 500 mls @ 999 mls/hr IV .Q31M ONE Stop: 08/20/22 19:28 Last Infusion: 08/20/22 20:05 Dose: 0 mls/hr Documented By: Admin: 08/20/22 19:29 Dose: 999 mls/hr Documented By: QGV Phytonadione 10 mg/ Dextrose 51 mls @ 102 mls/hr IV ONE ONE Stop: 08/20/22 20:37 Last Infusion: 08/20/22 21:42 Dose: 0 mls/hr Documented By: Admin: 08/20/22 20:54 Dose: 102 mls/hr Documented By: QGV Ioversol (Optiray 320 100ml) 90 ml IV ONCE ONE Stop: 08/20/22 20:32 Last Admin: 08/20/22 20:31 Dose: 90 ml Documented By: FLORENTIN Morphine Sulfate (Morphine Sulfate 2 Mg/Ml Carp) 2 mg IV NOW STA Stop: 08/20/22 19:01 Last Admin: 08/20/22 19:29 Dose: 2 mg Documented By: QGV Imaging Data Radiologist's Impression: Cervical Spine CT 08/20/22 18:58 Exam(s): CT C SPINE EXAM: CT Cervical Spine Without Intravenous Contrast CLINICAL HISTORY: Reason for exam: fall. TECHNIQUE: Axial computed tomography images of the cervical spine without intravenous contrast. CTDI is 24.53 mGy and DLP is 457.11 mGy-cm. Automated exposure control was utilized for the study. A dose lowering technique was utilized adhering to the principles of ALARA. COMPARISON: CT C-spine on 02/22/2019 FINDINGS: Bones: Ossification in the nuchal ligament is likely related to remote trauma. No acute fracture or bony lesion. Disc spaces: Degenerative changes of the spine. Minimal anterolisthesis of C3 on C4 and C7 on T1. Minimal retrolisthesis of C5 and C6. Soft tissues: Normal. Other: Atherosclerotic changes of the vasculature. Hypodense nodule in the left thyroid lobe which could be further evaluated with ultrasound if clinically indicated. IMPRESSION: No acute traumatic abnormality. Electronically signed by: Tha Russell M.D. 08/20/22 19:[address] 08/20/22 18:58 Exam(s): CT HEAD Without Contrast EXAM: CT Head Without Intravenous Contrast CLINICAL HISTORY: Reason for exam: fall. TECHNIQUE: Axial computed tomography images of the head/brain without intravenous contrast. CTDI is 35.65 mGy and DLP is 624.41 mGy-cm. Automated exposure control was utilized for the study. A dose lowering technique was utilized adhering to the principles of ALARA. COMPARISON: CT head on 11/21/2021 FINDINGS: Brain: No acute infarct or hemorrhage identified. No extra-axial fluid collection. No mass effect or midline shift. Scattered areas of hypoattenuation in the supratentorial white matter likely represent chronic small vessel ischemic changes. Ventricles and sulci: Prominence of the ventricles and sulci is likely secondary to cerebral volume loss. Bones: Hyperostosis frontalis interna. No bony lesion or acute fracture. Subcutaneous tissues: Normal. Sinuses: Normal. No air-fluid levels or mucosal thickening. Mastoid air cells: Normal. Orbits: Bilateral lens implants. Other: Atherosclerotic calcifications in the intracranial vasculature. IMPRESSION: 1. No acute intracranial abnormality. 2. Chronic small vessel ischemic changes and cerebral volume loss. Electronically signed by: Tha Russell M.D. 08/20/22 19:39 PM Pelvis X-Ray 08/20/22 19:00 SINGLE VIEW PELVIS CLINICAL HISTORY: Fall. Hip pain. FINDINGS: 2 AP supine pelvic radiographs are compared to study dated 02/18/2020. Correlation is made with pelvic CT scans dated 06/30/2021 and 08/20/2022. The skeletal structures are osteopenic. There is chronic posttraumatic deformity of the left proximal femur with intertrochanteric and intramedullary nails in place. There are acute left superior and inferior pubic ring fractures. No additional acute fracture is seen involving the hips or bony pelvis. Mild to moderate arthritic change and joint space narrowing seen in the hips. There is degenerative sclerosis of the sacroiliac joints. The overlying soft tissues are within normal limits. Heterotopic ossification is again seen medial to the right proximal femur. Tiny phleboliths are noted in the pelvis. Lumbosacral spondylosis is partially imaged. IMPRESSION: 1. Acute left pubic ring fractures. 2. No additional acute fracture is seen involving the hips or pelvis by x-ray. 3. A left sacral alar fracture seen on today's CT scan is not visualized by x- ray. Electronically signed by: Luis Fernando Murdock M.D. 08/20/2022 10:46 PM Abdomen/Pelvis CT 08/20/22 20:08 Exam(s): CT ABDOMEN + PELVIS With Contrast IV Amt: 90ml OPTIRAY 320 EXAM: CT Abdomen and Pelvis With Intravenous Contrast CLINICAL HISTORY: Reason for exam: fall pelvic fx don inr. TECHNIQUE: Axial computed tomography images of the abdomen and pelvis with intravenous contrast. CTDI is 23.73 mGy and DLP is 1780.52 mGy-cm. Automated exposure control was utilized for the study. A dose lowering technique was utilized adhering to the principles of ALARA. CONTRAST: Patient received 90ml OPTIRAY 320 of IV contrast COMPARISON: CT abdomen/pelvis on 06/30/2021 FINDINGS: Lung bases: Unremarkable. No mass. No consolidation. ABDOMEN: Liver: Unremarkable. No mass. Gallbladder and bile ducts: Prior cholecystectomy. Possible postcholecystectomy ductal ectasia, slightly increased compared to prior exam. Further evaluation could be performed with ERCP or MRCP if clinically indicated. Pancreas: Unremarkable. No mass. No ductal dilation. Spleen: Unremarkable. No splenomegaly. Adrenals: Unremarkable. No mass. Kidneys and ureters: Unremarkable. No solid mass. No hydronephrosis. Stomach and bowel: Postsurgical changes of the stomach. Evaluation of the stomach is limited by under distention. Diverticulosis without evidence of diverticulitis. No small bowel ejection. PELVIS: Appendix: Normal appendix. Bladder: Mild prominence of the bladder wall is nonspecific. Please correlate with urinalysis if concerned for cystitis. Reproductive: Prior hysterectomy. Subperitoneal space: Small to moderate presacral blood. Small amount of extraperitoneal blood in the pelvis. ABDOMEN and PELVIS: Intraperitoneal space: Unremarkable. No free air. No significant fluid collection. Bones/joints: Mildly displaced fractures of the left superior and inferior pubic rami. Mildly displaced fracture of the left sacral ala. Nondisplaced fracture of the S2 vertebral body. Degenerative changes of the spine. Intramedullary misael and screw fixation of the left femur. Old proximal left femur fracture deformity. Dystrophic calcifications along the proximal femurs or in the distal right iliopsoas muscle. No dislocation. Soft tissues: Unremarkable. Vasculature: Extensive vascular calcifications. No aortic aneurysm or dissection. Lymph nodes: Unremarkable. No enlarged lymph nodes. IMPRESSION: 1. Small to moderate presacral blood. Small amount of extraperitoneal blood in the pelvis. 2. Mildly displaced fractures of the left superior and inferior pubic rami. 3. Mildly displaced fracture of the left sacral ala. Nondisplaced fracture of the S2 vertebral body. 4. Mild prominence of the bladder wall is nonspecific. Please correlate with urinalysis if concerned for cystitis. Electronically signed by: Tha Russell M.D. 08/20/22 21:[address] 08/20/22 20:08 Exam(s): CT CHEST With Contrast IV Amt: 90ml OPTIRAY 320 EXAM: CT Chest With Intravenous Contrast CLINICAL HISTORY: Reason for exam: fall pelvic fx. TECHNIQUE: Axial computed tomography images of the chest with intravenous contrast. CTDI is 18.58 mGy and DLP is 646.53 mGy-cm. Automated exposure control was utilized for the study. A dose lowering technique was utilized adhering to the principles of ALARA. CONTRAST: Patient received 90ml OPTIRAY 320 of IV contrast COMPARISON: CT chest on 10/24/2020 FINDINGS: Lungs: Unremarkable. No mass. No consolidation. Pleural space: Unremarkable. No pneumothorax. No significant effusion. Heart: Prominent coronary artery, aortic valve, and mitral annular calcifications. Mild cardiomegaly. Left-sided pacemaker. No significant pericardial effusion. Mediastinum: Esophagus is distended with fluid and ingested material. Wall thickening of the esophagus may represent esophagitis. Bones/joints: Degenerative changes of the spine. Ankylosing spondylosis changes. No acute fracture. No dislocation. Soft tissues: Calcifications along the posterior paraspinal muscles. Vasculature: Atherosclerotic changes of the vasculature. Ectasia of the ascending thoracic aorta, measuring approximately 4.3 cm in diameter. No aortic dissection. Lymph nodes: Unremarkable. No enlarged lymph nodes. IMPRESSION: 1. Esophagus is distended with fluid and ingested material. Wall thickening of the esophagus may represent esophagitis. 2. Slightly increased ectasia of the ascending thoracic aorta measuring 4.3 cm. 3. No acute traumatic abnormality. Electronically signed by: Tha Russell M.D. 08/20/22 21:11 PM Discharge Plan Visit Data Chief Complaint: Back Injury/Pain Stated Complaint: fell yesterday, back hurts ED Provider: Bob Hackett Discharge Problem: Closed pelvic fracture, Anemia, Closed sacral fracture, Elevated INR Forms Stand Alone Forms: My [facility]co Torando Labs Prescriptions Prescriptions: No Action citalopram 40 mg Tablet 40 mg PO QAM Qty: 30 0RF clopidogrel 75 mg Tablet 75 mg PO QAM Qty: 30 0RF methenamine hippurate 1 gram Tablet 1 g PO HS Qty: 30 0RF famotidine 20 mg Tablet 20 mg PO QAM Qty: 30 0RF levothyroxine [Synthroid] 50 mcg Tablet 50 mcg PO DAILYBB Qty: 30 0RF furosemide 20 mg Tablet 20 mg PO QAM Qty: 30 0RF metoprolol succinate 25 mg Tablet Extended Release 24 Hr 12.5 mg PO DAILY Qty: 30 0RF ferrous sulfate 325 mg (65 mg iron) Tablet,Delayed Release (Dr/Ec) 325 mg PO BID Qty: 60 0RF warfarin 6 mg tablet 6 mg PO [id number] Rx Instructions: take in evening every day except fridays MEDICATION ON HOLD UNTIL Thursday08/22/22 FOR A TEST spironolactone 25 mg Tablet 12.5 mg PO QAM Rx Instructions: 1/2 tablet dose multivitamin [Daily-Nori] Tablet 1 tab PO DAILY Culturelle 2 cap PO DAILY insulin glargine [Lantus Solostar U-100 Insulin] 100 unit/mL (3 mL) Insulin Pen 5 unit SC DAILY Qty: 10 0RF warfarin 3 mg Tablet 3 mg PO WK Rx Instructions: take in evening of FRIDAYS THIS MEDICATION IS ON HOLD UNTIL 08/22/22 FOR A TEST riboflavin (vitamin B2) 400 mg Tablet 400 mg PO HS magnesium oxide 400 mg magnesium Tablet 400 mg PO HS Referrals Referrals: Aixa Sales [Primary Care Provider] -
[2022-08-20 19:09] LABS: Alanine Aminotransferase 22 U/L (7-52); Albumin Globulin Ratio 1.3 (0.9-2); Albumin Level 3.8 gm/dl (3.4-5.0); Alkaline Phosphatase 82 U/L (34-104); Anion Gap 15 (3-11); Aspartate Aminotransferase 35 U/L (13-39); BUN Creatinine Ratio 20.6 (10-20); Bilirubin,Total 0.8 mg/dl (0.2-1.0); Blood Urea Nitrogen 33 mg/dl (6-23); Calcium 9.4 mg/dl (8.6-10.3); Carbon Dioxide 21 mmol/L (21-32); Chloride 101 mmol/L (98-107); Est GFR (African American) 34.2 ml/min; Est GFR (Non-African American) 29.5 ml/min; Glucose 213 mg/dl (70-99(Fasting)); Potassium 3.8 mmol/L (3.5-5.1); Sodium 137 mmol/L (136-145); Total Protein 6.8 gm/dl (6.0-8.3)
[2022-08-20 19:15] LABS: Troponin I High Sensitivity 30.6 pg/ml (0-14)
[2022-08-20 19:34] LABS: Partial Thromboplastin Ratio 1.8; Prothrombin Time > 90.0 Seconds (9.0-12.0)
--- NOTE | 2022-08-20 19:40 | CT Scan Report ---
Exam(s): CT HEAD Without Contrast EXAM: CT Head Without Intravenous Contrast CLINICAL HISTORY: Reason for exam: fall. TECHNIQUE: Axial computed tomography images of the head/brain without intravenous contrast. CTDI is 35.65 mGy and DLP is 624.41 mGy-cm. Automated exposure control was utilized for the study. A dose lowering technique was utilized adhering to the principles of ALARA. COMPARISON: CT head on 11/21/2021 FINDINGS: Brain: No acute infarct or hemorrhage identified. No extra-axial fluid collection. No mass effect or midline shift. Scattered areas of hypoattenuation in the supratentorial white matter likely represent chronic small vessel ischemic changes. Ventricles and sulci: Prominence of the ventricles and sulci is likely secondary to cerebral volume loss. Bones: Hyperostosis frontalis interna. No bony lesion or acute fracture. Subcutaneous tissues: Normal. Sinuses: Normal. No air-fluid levels or mucosal thickening. Mastoid air cells: Normal. Orbits: Bilateral lens implants. Other: Atherosclerotic calcifications in the intracranial vasculature. IMPRESSION: 1. No acute intracranial abnormality. 2. Chronic small vessel ischemic changes and cerebral volume loss. Electronically signed by: Tha Russell M.D. 08/20/22 19:39 PM
--- NOTE | 2022-08-20 19:50 | CT Scan Report ---
Exam(s): CT C SPINE EXAM: CT Cervical Spine Without Intravenous Contrast CLINICAL HISTORY: Reason for exam: fall. TECHNIQUE: Axial computed tomography images of the cervical spine without intravenous contrast. CTDI is 24.53 mGy and DLP is 457.11 mGy-cm. Automated exposure control was utilized for the study. A dose lowering technique was utilized adhering to the principles of ALARA. COMPARISON: CT C-spine on 02/22/2019 FINDINGS: Bones: Ossification in the nuchal ligament is likely related to remote trauma. No acute fracture or bony lesion. Disc spaces: Degenerative changes of the spine. Minimal anterolisthesis of C3 on C4 and C7 on T1. Minimal retrolisthesis of C5 and C6. Soft tissues: Normal. Other: Atherosclerotic changes of the vasculature. Hypodense nodule in the left thyroid lobe which could be further evaluated with ultrasound if clinically indicated. IMPRESSION: No acute traumatic abnormality. Electronically signed by: Tha Russell M.D. 08/20/22 19:49 PM
[2022-08-20 20:06] LABS: INR > 9.5 (0.9-1.1); Partial Thromboplastin Time 49.8 Seconds (21.0-31.0)
[2022-08-20] MEDS ORDERED: PHYTONADIONE 10 MG in DEXTROSE 5% 50 ML IV ONE (20:08)
[2022-08-20] MEDS ORDERED: OPTIRAY 320 100ml IV ONE (20:31)
--- NOTE | 2022-08-20 21:12 | CT Scan Report ---
Exam(s): CT CHEST With Contrast IV Amt: 90ml OPTIRAY 320 EXAM: CT Chest With Intravenous Contrast CLINICAL HISTORY: Reason for exam: fall pelvic fx. TECHNIQUE: Axial computed tomography images of the chest with intravenous contrast. CTDI is 18.58 mGy and DLP is 646.53 mGy-cm. Automated exposure control was utilized for the study. A dose lowering technique was utilized adhering to the principles of ALARA. CONTRAST: Patient received 90ml OPTIRAY 320 of IV contrast COMPARISON: CT chest on 10/24/2020 FINDINGS: Lungs: Unremarkable. No mass. No consolidation. Pleural space: Unremarkable. No pneumothorax. No significant effusion. Heart: Prominent coronary artery, aortic valve, and mitral annular calcifications. Mild cardiomegaly. Left-sided pacemaker. No significant pericardial effusion. Mediastinum: Esophagus is distended with fluid and ingested material. Wall thickening of the esophagus may represent esophagitis. Bones/joints: Degenerative changes of the spine. Ankylosing spondylosis changes. No acute fracture. No dislocation. Soft tissues: Calcifications along the posterior paraspinal muscles. Vasculature: Atherosclerotic changes of the vasculature. Ectasia of the ascending thoracic aorta, measuring approximately 4.3 cm in diameter. No aortic dissection. Lymph nodes: Unremarkable. No enlarged lymph nodes. IMPRESSION: 1. Esophagus is distended with fluid and ingested material. Wall thickening of the esophagus may represent esophagitis. 2. Slightly increased ectasia of the ascending thoracic aorta measuring 4.3 cm. 3. No acute traumatic abnormality. Electronically signed by: Tha Russell M.D. 08/20/22 21:11 PM
--- NOTE | 2022-08-20 21:18 | CT Scan Report ---
Exam(s): CT ABDOMEN + PELVIS With Contrast IV Amt: 90ml OPTIRAY 320 EXAM: CT Abdomen and Pelvis With Intravenous Contrast CLINICAL HISTORY: Reason for exam: fall pelvic fx don inr. TECHNIQUE: Axial computed tomography images of the abdomen and pelvis with intravenous contrast. CTDI is 23.73 mGy and DLP is 1780.52 mGy-cm. Automated exposure control was utilized for the study. A dose lowering technique was utilized adhering to the principles of ALARA. CONTRAST: Patient received 90ml OPTIRAY 320 of IV contrast COMPARISON: CT abdomen/pelvis on 06/30/2021 FINDINGS: Lung bases: Unremarkable. No mass. No consolidation. ABDOMEN: Liver: Unremarkable. No mass. Gallbladder and bile ducts: Prior cholecystectomy. Possible postcholecystectomy ductal ectasia, slightly increased compared to prior exam. Further evaluation could be performed with ERCP or MRCP if clinically indicated. Pancreas: Unremarkable. No mass. No ductal dilation. Spleen: Unremarkable. No splenomegaly. Adrenals: Unremarkable. No mass. Kidneys and ureters: Unremarkable. No solid mass. No hydronephrosis. Stomach and bowel: Postsurgical changes of the stomach. Evaluation of the stomach is limited by under distention. Diverticulosis without evidence of diverticulitis. No small bowel ejection. PELVIS: Appendix: Normal appendix. Bladder: Mild prominence of the bladder wall is nonspecific. Please correlate with urinalysis if concerned for cystitis. Reproductive: Prior hysterectomy. Subperitoneal space: Small to moderate presacral blood. Small amount of extraperitoneal blood in the pelvis. ABDOMEN and PELVIS: Intraperitoneal space: Unremarkable. No free air. No significant fluid collection. Bones/joints: Mildly displaced fractures of the left superior and inferior pubic rami. Mildly displaced fracture of the left sacral ala. Nondisplaced fracture of the S2 vertebral body. Degenerative changes of the spine. Intramedullary misael and screw fixation of the left femur. Old proximal left femur fracture deformity. Dystrophic calcifications along the proximal femurs or in the distal right iliopsoas muscle. No dislocation. Soft tissues: Unremarkable. Vasculature: Extensive vascular calcifications. No aortic aneurysm or dissection. Lymph nodes: Unremarkable. No enlarged lymph nodes. IMPRESSION: 1. Small to moderate presacral blood. Small amount of extraperitoneal blood in the pelvis. 2. Mildly displaced fractures of the left superior and inferior pubic rami. 3. Mildly displaced fracture of the left sacral ala. Nondisplaced fracture of the S2 vertebral body. 4. Mild prominence of the bladder wall is nonspecific. Please correlate with urinalysis if concerned for cystitis. Electronically signed by: Tha Russell M.D. 08/20/22 21:17 PM
[2022-08-20 22:05] LABS: Appearance Urine Clear (Clear); Bacteria Urine Automated 4+ (Negative); Bilirubin Urine Negative (Negative); Blood Urine 2+ (Negative); Color Urine Yellow; Epithelial Cell Urine Auto >30 /lpf (0-5); Glucose Urine UA Negative (Negative); Ketones Urine Trace (Negative); Leukocyte Esterase Urine Negative (Negative); Nitrite Urine Negative (Negative); Protein Urine Negative (Negative); RBC Urine Automated 0-4 /hpf (0-4); Specific Gravity Urine 1.035 (1.000-1.030); Urobilinogen Urine Negative (Negative)
--- NOTE | 2022-08-20 22:48 | XRay Report ---
SINGLE VIEW PELVIS CLINICAL HISTORY: Fall. Hip pain. FINDINGS: 2 AP supine pelvic radiographs are compared to study dated 02/18/2020. Correlation is made w ith pelvic CT scans dated 06/30/2021 and 08/20/2022. The skeletal structures are osteopenic. There is ch ronic posttraumatic deformity of the left proximal femur with intertrochanteric and intramedullary na ils in place. There are acute left superior and inferior pubic ring fractures. No additional acute fr acture is seen involving the hips or bony pelvis. Mild to moderate arthritic change and joint space n arrowing seen in the hips. There is degenerative sclerosis of the sacroiliac joints. The overlying so ft tissues are within normal limits. Heterotopic ossification is again seen medial to the right proxi mal femur. Tiny phleboliths are noted in the pelvis. Lumbosacral spondylosis is partially imaged. IMPRESSION: 1. Acute left pubic ring fractures. 2. No additional acute fracture is seen involving the hips or pelvis by x-ray. 3. A left sacral alar fracture seen on today's CT scan is not visualized by x-ray. Electronically signed by: Luis Fernando Murdock M.D. 08/20/2022 10:46 PM
--- NOTE | 2022-08-20 23:23 | XRay Report ---
SINGLE VIEW CHEST CLINICAL HISTORY: Atypical chest pain. FINDINGS: An AP, portable, semierect chest radiograph is compared to study dated 06/30/2021. A 2-lead cardiac pacemaker is unchanged in position. The heart is enlarged noting atherosclerotic calcificatio n of the thoracic aorta. The pulmonary vasculature is noncongested. Chronic interstitial thickening s imilar to previous. There is mild bibasilar scarring/atelectasis. The lungs and pleural spaces are ot herwise clear. No pneumothorax is seen. The skeletal structures are osteopenic. The bony thorax is gr ossly intact. Have an postsurgical change is noted in the shoulders. IMPRESSION: 1. Cardiomegaly and cardiac pacemaker without radiographic evidence of congestive failure. 2. There is no airspace consolidation or large pleural effusion identified. ACT 112: Negative or not required by law. Electronically signed by: Luis Fernando Murdock M.D. 08/20/2022 11:22 PM
[2022-08-21] MEDS ORDERED: SODIUM CHLORIDE 0.9% 1000ML 1,000 ML IV SCH (00:51)
[2022-08-21] MEDS ORDERED: GLUCOSE 40% GEL 15 GM TUBE PO PRN (00:51)
[2022-08-21] MEDS ORDERED: DEXTROSE 50% 50 ML SYRINGE IV PRN (00:51)
[2022-08-21] MEDS ORDERED: ACETAMINOPHEN 325 MG TAB PO PRN ×2 (00:51→12:56)
[2022-08-21] MEDS ORDERED: CARBOHYDRATES FOR HYPOGLYCEMIA PO PRN (00:51)
[2022-08-21] MEDS ORDERED: GLUCAGON FOR INJ 1 MG VIAL SQ PRN (00:51)
[2022-08-21] MEDS ORDERED: GLUCOSE 10 TAB/TUBE PO PRN (00:51)
[2022-08-21] MEDS: cefTRIAXone SODIUM 2,000 MG in DEXTROSE 5% 50 ML IV SCH (01:36)
[2022-08-21] MEDS: LEVOTHYROXINE SODIUM 50 MCG TABLET PO SCH (06:14)
[2022-08-21] MEDS: oxyCODONE HCL IR 5 MG TAB (IMMEDIATE RELEASE) PO PRN ×2 (06:19→16:02)
[2022-08-21 06:39] LABS: Troponin I High Sensitivity 34.8 pg/ml (0-14)
[2022-08-21 06:41] LABS: Hematocrit (blood only) 23.6 % (37.0-47.0); Hemoglobin 7.9 g/dl (12.0-16.0); Mean Corpuscular Hemoglobin 31.1 pg (25.0-34.0); Mean Corpuscular Hgb Conc 33.5 g/dL (32.0-36.0); Mean Corpuscular Volume 92.9 fL (80.0-100.0); Mean Platelet Volume 11.2 fL (9.4-12.4); Platelet Count 134 K/uL (130-400); RDW Standard Deviation 43.3 fL (36.4-46.3); Red Blood Count 2.54 M/uL (4.20-5.40); White Blood Count 6.76 K/ul (4.8-10.8)
[2022-08-21 06:43] LABS: Basophils # (auto) 0.03 K/uL (0-0.2); Basophils % (auto) 0.4 %; Eosinophils # (auto) 0.01 K/uL (0-0.50); Eosinophils % (auto) 0.1 %; Immature Granulocytes # (auto) 0.02 K/uL (0.01-0.20); Immature Granulocytes % (auto) 0.3 %; Lymphocytes # (auto) 0.49 K/uL (1.2-3.4); Lymphocytes % (auto) 7.2 %; Monocytes # (auto) 0.37 K/uL (0.11-0.59); Monocytes % (auto) 5.5 %; Neutrophils # (auto) 5.84 K/uL (1.40-6.50); Neutrophils % (auto) 86.5 %; Ovalocytes 1+; Polychromasia 1+
[2022-08-21 06:56] LABS: INR 1.5 (0.9-1.1); Prothrombin Time 15.8 Seconds (9.0-12.0)
[2022-08-21 07:25] LABS: Calcium 8.4 mg/dl (8.6-10.3); Magnesium 1.9 mg/dl (1.7-2.4); Potassium 3.5 mmol/L (3.5-5.1)
--- NOTE | 2022-08-21 07:29 | History and Physical Report ---
DATE OF ADMISSION: 08/20/2022. CHIEF COMPLAINT: Status post fall. HISTORY OF PRESENT ILLNESS: This is an 81-year-old female with past medical history significant for history of CAD s/p stent, chronic heart failure with preserved ejection fraction, history of persistent atrial fibrillation, on Coumadin, type 2 diabetes, hypertension, hyperlipidemia, sinus node dysfunction, status post permanent pacemaker, hypothyroidism, valvular heart disease, mild aortic stenosis and moderate mitral stenosis, history of MDS, history of iron deficiency anemia , chronic kidney disease stage III, hypothyroidism, currently lives at [facility], mostly wheelchair bound, comes with a fall. The son is in the room. The patient is alert and awake. She has pain with movement. Seems she fell yesterday and also today as per son, yesterday in the grass, seems today in the room. Son thinks she might have passed out, but he definitely does not know for sure. The patient thinks she did not pass out. She denies any dizziness or chest pain. She has some cough and she has some chronic shortness of breath. Denies any headache. Has chronic vision issues, very hard of hearing. Denies any runny nose, no sore throat, no difficulty swallowing. Denies any belly pain. Says bowels and bladder are moving okay. She was somewhat nauseous in the ER, but is okay now as per the son. As per the [facility], she just came to the room, which was mopped and patient doesn't walk but today , but she stood up with a cane and then she fell down, and brought in here and the current nursing staff does not know about fall yesterday. Otherwise, she was doing okay except she slept more than usual today. The patient is afebrile. ALLERGIES: ADHESIVE TAPE. PAST MEDICAL HISTORY: As mentioned above. PAST SURGICAL HISTORY: Status post cardiac stent placement, colonoscopy, balloon angioplasty, EGDs, gastric bypass for obesity, knee arthroscopy, Pap screen, partial hysterectomy in 1963, ureteral stent placement, cholecystectomy, cataract surgery, left hip fracture repair, repair of incisional hernia, bilateral shoulder arthroscopy. MEDICATIONS: The patient is on citalopram 40 mg p.o. daily, Plavix 75 mg p.o. daily, Culturelle 2 caps daily, famotidine 20 mg p.o. daily, ferrous sulfate 325 mg p.o. b.i.d., furosemide 20 mg p.o. a.m., Lantus 5 units daily, levothyroxine 50 mcg p.o. daily, magnesium oxide 400 mg p.o. at bedtime, methenamine hippurate 1 gram p.o. at bedtime, metoprolol succinate 12.5 mg p.o. daily, multivitamins 1 tablet p.o. daily, vitamin B12 400 ____ p.o. at bedtime, spironolactone 12.5 mg p.o. a.m., warfarin 6 mg p.o. 6 times a week, warfarin 3 mg p.o. one time a week. FAMILY HISTORY: Significant for son has allergies; father had colon cancer; sister had lung cancer, diabetes; brother has diabetes; mother has diabetes, heart disorder. SOCIAL HISTORY: Currently living up in [facility]. No smoking, no alcohol currently, no drug use. REVIEW OF SYSTEMS: As per HPI. Rest of the review of systems is negative. PHYSICAL EXAMINATION: GENERAL: The patient is old, not in acute distress, somewhat hard of hearing. VITAL SIGNS: Temperature 36.8, pulse 82, respiratory rate 22, blood pressure 128/63, oxygen 96% on room air. HEENT: Pupils equal, round and reactive to light. Oral mucosa dry. NECK: No JVD, no neck masses. CARDIOVASCULAR: S1 and S2 heard. Systolic murmur heard in mitral area. Regular rate and rhythm. RESPIRATORY SYSTEM: Normal AP diameter. No accessory muscle use. No wheezing, no crackles. ABDOMEN: Soft, bowel sounds present, nontender, no distention. CENTRAL NERVOUS SYSTEM: Alert and oriented. Speech is clear. Obeys simple commands. Insight is okay. EXTREMITIES: Bilateral lower extremity edema present, right greater than left. No erythema seen. LABORATORY DATA: WBC 9.6, hemoglobin 10, hematocrit 29.1, platelets 166. PT greater than 90, INR greater than 9.5, APTT 49.8. Sodium 137, potassium 3.8, chloride 101, bicarbonate 21, BUN 33, creatinine 1.6, serum glucose 213, calcium 9.4, total bilirubin 0.8, AST 35, ALT 22, alkaline phosphatase 82. Troponin I high sensitivity 30. Urinalysis +4 bacteria. IMAGING DATA: Chest CT with contrast IV, esophagus distended with fluid and ingested material. Wall thickening in the esophagus, may represent esophagitis, slightly increased ectasia of the ascending thoracic aorta measuring 4.3 cm. No acute traumatic abnormality. CT of abdomen and pelvis is showing small to moderate presacral blood, small amount of extraperitoneal blood in the pelvis, mildly displaced fracture of the left superior and inferior pubic rami, mildly displaced fracture of the left sacral ala, nondisplaced fracture of the S2 vertebral body, mild prominence of the bladder wall, is nonspecific, please correlate with urinalysis with concern for cystitis. Pelvic x-ray, acute left pubic ring fractures, no additional fractures seen. Head CT, no acute findings. Cervical spine CT, no acute traumatic abnormality. Chest x-ray, no acute findings seen. EKG: Atrial fibrillation with rapid ventricular response at rate of 102. Right bundle-branch block, left axis deviation, some T-wave inversion in inferior and lateral leads. ASSESSMENT AND PLAN: This is an 81-year-old female who is wheelchair bound at [facility] who tried to stand up and fell and found to have pelvic fractures and also urinary tract infection. 1. Fall. Pelvic fracture: Pain control. The patient is mostly wheelchair bound. Generally does not walk, does not stand without help, but she tried to get up from the chair and fell down. Pelvic fracture in the imaging studies. Will consult orthopedics, pain control, monitor in the hospital. 2. Urinary tract infection, possibly contributing to her fall. Getting antibiotics, Rocephin. Will follow the cultures. 3. Questionable syncope: The patient and nursing staff deny, but son thinks may be she might have passed out, so will monitor in tele floor. Serial enzymes, echocardiogram, and also get a pacemaker interrogation. If any concern, will consult cardiology. 4. Elevated INR, INR greater than 9.5, received IV vitamin K in the ER, holding Coumadin. Will follow the repeat INR levels. 5. Anemia: Small to moderate presacral blood, small amount of extraperitoneal blood in the pelvis as per imaging studies. Hemoglobin is 10, it was between 10 and 12 on prior labs. Will check the stool for Hemoccult. Will follow the labs.Received iv vitamin k for elevated inr. 6. History of atrial fibrillation: Rate controlled with metoprolol succinate. Holding Coumadin as above. 7. History of chronic diastolic congestive heart failure: Continue metoprolol succinate and Lasix and spironolactone. On gentle fluids. Monitor for volume overload. 8. History of iron deficiency anemia:Hx of MDS. Continue iron supplements. 9. History of coronary artery disease, status post stent: Continue Plavix, beta marie. 10. Hypothyroidism: On Synthroid. 11. Diabetes: Continue home Lantus. Placed on insulin sliding scale. Will follow blood sugars. 12. Depression: Continue citalopram. 13. Gastroesophageal reflux disease: Continue famotidine. 14. Sick sinus syndrome: Status post permanent pacemaker. 15. Acute kidney injury on chronic kidney disease stage III: Presents with creatinine of 1.6, seems to have baseline creatinine of 1, getting fluids. Will follow the repeat labs. If worsening, will hold the diuretics. 16.Oesophagitis.on ct scan. Aspiration? iv Protonix. npo for now. GI and speech consult.. 17. Ascending thoracic aorta aneurysm. Needs followup. 18. Mild elevation of troponin. Mostly demand ischemia. Will follow serial CE. 19. Deep venous thrombosis prophylaxis: INR supratherapeutic. DISPOSITION: Closely monitor in the [facility]. Expect to discharge back to [facility] when stable. CODE STATUS: DNR/DNI as per discussion with the patient and her son. Job ID: [id number] [facility]
[2022-08-21 07:31] LABS: BUN Creatinine Ratio 25.8 (10-20); Est GFR (African American) 48.4 ml/min; Est GFR (Non-African American) 41.8 ml/min
[2022-08-21] MEDS ORDERED: PNEUMOCOCCAL Polysaccharide Vaccine 25mcg/0.5mL vial/Syr IM ONE (08:00)
[2022-08-21 08:22] LABS: Estimated Average Glucose 160 mg/dl; Hemoglobin A1C 7.2 % (4.5-5.6)
[2022-08-21] MEDS ORDERED: FAMOTIDINE 20 MG TAB PO SCH (09:00)
[2022-08-21] MEDS: INSULIN ASPART PER UNIT CHARGE SC SCH ×4 (09:02→21:29)
[2022-08-21] MEDS: CITALOPRAM 40 MG TAB PO SCH (09:03)
[2022-08-21] MEDS: FUROSEMIDE 20 MG TAB PO SCH (09:03)
[2022-08-21] MEDS: ADVANCED PROBIOTIC 1250 MG CAPSULE PO SCH (09:03)
[2022-08-21] MEDS: MULTIVITAMIN TAB PO SCH (09:03)
[2022-08-21] MEDS: LANTUS PER UNIT CHARGE SC SCH (09:03)
[2022-08-21] MEDS: SPIRONOLACTONE 12.5 MG TAB PO SCH (09:03)
[2022-08-21] MEDS: METOPROLOL SUCC 25MG EXT REL TAB PO SCH (09:04)
[2022-08-21] MEDS: FERROUS SULFATE 325 MG TAB PO SCH ×2 (09:04→21:25)
[2022-08-21] MEDS: PANTOprazole 40 MG in SYRINGE 0 ML IV SCH ×2 (09:05→21:25)
[2022-08-21] MEDS: CLOPIDOGREL BISULFATE 75 MG TAB PO SCH (09:07)
--- NOTE | 2022-08-21 09:56 | Gastrointestinal Consultation ---
Date of Consultation August 21, 2022 Assessment & Plan (1) Closed pelvic fracture: (2) Abnormality of esophagus: Pt is a 81 yo female resident of [facility] who presented after a fall, ? syncope found to have UTI, supratherapuetic INR and pelvis fractures. CT chest on admission showed distended esophagus that's fluid filled, and esophageal thickening suspected from esophagitis. These seems chronic as it was also noted in 2018 CTA chest and her most recent EGD in 2020. 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 - PPI IV BID - NPO until swallowing function assessed by Speech Therapy. Would likely need to repeat video swallow study as well. If inconclusive may consider OP esophageal manometry study if pt willing - Reflux and aspiration precautions - Defer repeat EGD at this time given her recent fall and frailty Supervising Physician Co-Signing Physician Notes PE - the patient is eating pudding and swallowing while i'm in the room, no regurgitation. She is only oriened to the year, stated to me she is at her friend's house and lives with her extended family and did not know her name. However, she [facility]. She states to me i don't have any issues with swallowing, was able to swallow while i was in the room, no oral secretions noted around her mouth, no odynophagia. Agree with further pe as documented, an endoscopy in this frail pleasant lady that appears to have mild dementia would likey not offer much change in therapy that is already being recommended. History of Present Illness Reason for Consultation: Esophagitis Requesting Physician: Dr. Robby Beatty Attending Physician: Dr. Velma Abbott History of Present Illness Pt is a 81 yo female w PMHx of CAD s/p stent, CHF, Afib on Coumadin, DM II, HTN, HLD, sinus node dysfunction s/p pacemaker, mild /MS, CKD III, Fe deficiency anemia, hypothyroidism, gastric bypass for obesity in 2005 who presented after a fall. She is [facility] resident, mostly wheelchair bound. Unclear about events leading to fall. Son thought she may have had a syncopal episode but pt denies it. Upon evaluation, she was note to have UTI, and supratherapuetic INR. She also was found to have multiple fractures on her pelvis, sacral areas. GI consulted as CT chest showed her esophagus was distended with fluid and ingested material, wall thickening of esophagus may represent esophagitis. On chart review. Pt had similar presentation of esophagus distension, fluid filled on CTA chest in 2017. Her last EGD in 2020 showed ulcer in gastroenteric anastomosis, with distended esophagus and reduced peristalsis suspected to be related to vagal nerve injury. Her last video swallow study was in 2016 which showed one episode of aspiration with thin liquids, otherwise normal. Pt reports that she is eating "whatever they serve" at [facility], and doesn't need food chopped or grounded. She denies painful swallowing. She may have trouble swallowing food at times but usually if chews well and she doesn't feel food is stuck. Denies abd pain, n/v, heartburn, reflux symptoms. Allergies Allergy/AdvReac Type Severity Reaction Status Date / Time adhesive Allergy Unknown ADHESIVE Verified 02/20/22 09:19 TAPE Home Medications Medication Instructions Recorded Confirmed Type citalopram 40 mg tablet 40 mg PO QAM #30 tabs 10/29/20 08/20/22 Rx clopidogrel 75 mg tablet 75 mg PO QAM #30 tabs 10/29/20 08/20/22 Rx famotidine 20 mg tablet 20 mg PO QAM #30 tabs 10/29/20 08/20/22 Rx ferrous sulfate 325 mg (65 mg 325 mg PO BID #60 tabs 10/29/20 08/20/22 Rx iron) tablet,delayed release furosemide 20 mg tablet 20 mg PO QAM #30 tabs 10/29/20 08/20/22 Rx levothyroxine 50 mcg tablet 50 mcg PO DAILYBB #30 tabs 10/29/20 08/20/22 Rx (Synthroid) methenamine hippurate 1 gram tablet 1 g PO HS #30 tabs 10/29/20 08/20/22 Rx metoprolol succinate 25 mg 12.5 mg PO DAILY #30 tabs 10/29/20 08/20/22 Rx tablet,extended release 24 hr warfarin 6 mg tablet 6 mg PO [id number] 06/14/21 08/20/22 History Culturelle 2 cap PO DAILY 11/21/21 08/20/22 History multivitamin (Daily-Nori tablet) 1 tab PO DAILY 11/21/21 08/20/22 History spironolactone 25 mg tablet 12.5 mg PO QAM 11/21/21 08/20/22 History insulin glargine 100 unit/mL (3 5 unit (0.05 mL) SC DAILY #10 mL 11/23/21 08/20/22 Rx mL) subcutaneous pen (Lantus Solostar U-100 Insulin) magnesium oxide 400 mg PO HS 08/20/22 08/20/22 History riboflavin (vitamin B2) 400 mg 400 mg PO HS 08/20/22 08/20/22 History tablet warfarin 3 mg tablet 3 mg PO WK 08/20/22 08/20/22 History Patient History Medical History Acute blood loss anemia Acute confusion Acute UTI (urinary tract infection) Afib Anemia Aortic root dilatation 4.4 cm on echo 01/2019 Aortic root normal size on 02/2020 ECHO Asthma Atrial fibrillation Bifascicular block CAD (coronary artery disease) "1995 - PTCA and stenting of RCA 07/2011 - atherectomy and stenting RCA 12/2011- AZALIA to the mid LAD 2016-Cobra stent to mid LAD 2017-AZALIA to ostial diagonal Calculus of distal left ureter Chest pain Chronic heart failure with preserved ejection fraction (HFpEF) Closed fracture of left hip February 2020trochanteric nail placed by Ortho Congestive heart failure Depression DM type 2 (diabetes mellitus, type 2) DVT prophylaxis Dyslipidemia Encephalopathy, metabolic GERD (gastroesophageal reflux disease) Hypertension Hypotension Hypothyroidism Hypovolemic shock HOMERO (iron deficiency anemia) Macular degeneration MDS (myelodysplastic syndrome) Mild aortic stenosis Per 02/19/20 ECHO- ASHLEY 1.84 cm; AV max velocity 2.491 m/s; AV mean PG 13.6 mmHg Mitral stenosis Moderate per 02/2020 ECHO Pacemaker Sinus node dysfunction VRE (vancomycin resistant enterococcus) culture positive Surgical History History of angioplasty History of arthroscopy of knee History of arthroscopy of shoulder History of cholecystectomy History of gastric bypass History of incisional hernia repair History of partial hysterectomy History of tonsillectomy Family History Father Colorectal cancer Sister Lung cancer Diabetes Brother Diabetes Mother Diabetes Social History Smoking Status: Never smoker Second Hand Exposure: No; Do You Dip or Chew Tobacco: No; Hx Alcohol Use: Yes Alcohol type: beer and wine Hx Substance Use: No Preferred Language: Croatian Communication Ability: Effective Visual Impairment: No Limitations Hearing Ability: Normal 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 Beliefs That Will Affect Care: None marital status: / Current Living Situation: Personal Care Facility Current Living Situation Comment: [facility] current occupational status: retired How many Children do You have: 3 Other Information That Helps Us Care for You: No Feels Safe at Home: Yes Safety Concerns: Feels Safe At This Time Assistive Devices: Cane, Denture - Upper, Denture - Lower, Glasses, Hearing Aid - Bilateral, Hospital Bed and Walker Review of Systems Review of Systems: All systems reviewed & are unremarkable except as noted in HPI & below Physical Exam Constitutional: WD/WN, vitals as above + frail appearing, well groomed, cooperative and comfortable Eyes: PERRL, conjunctivae normal, anicteric sclerae ENMT: external ear and nose normal, oropharynx normal Respiratory: normal respiratory effort, lungs clear to auscultation Cardiovascular: RRR, no murmur, no edema Gastrointestinal (Abdomen): normal bowel sounds, soft, nontender, no hepatosplenomegaly Skin: no rashes, warm and dry no jaundice Psychiatric: Oriented mostly to self only. Lymphatic: no lymphedema Results & Data Vital Signs (Past 12 Hours) Vital Signs Temp Pulse Pulse Resp BP BP Pulse Ox 08/21/22 00:53 82 08/21/22 07:50 36.6 C 94 H 18 111/64 95 08/21/22 01:09 08/21/22 03:42 36.6 C 86 18 110/60 93 08/21/22 00:28 36.6 C 86 20 109/65 95 08/21/22 01:09 36.6 C 86 20 109/65 95 08/20/22 23:50 85 17 112/66 97 08/20/22 22:55 82 22 128/63 96 O2 Del Method 08/21/22 00:53 08/21/22 07:50 Room Air 08/21/22 01:09 Room Air 08/21/22 03:42 Room Air 08/21/22 00:28 Room Air 08/21/22 01:09 Room Air 08/20/22 23:50 Room Air 08/20/22 22:55 Room Air
--- NOTE | 2022-08-21 10:08 | Orthopedic Consultation ---
Date of Service August 21, 2022 Assessment & Plan (1) Closed pelvic fracture: (2) Closed sacral fracture: Plan 81-year-old female with osteoporotic fractures of the inferior and superior pubic rami and concomitant zone 2 sacral fracture. Relatively stable pattern in the setting of a geriatric osteoporotic pelvis and low energy mechanism. -Nonsurgical management with pain control and PT/OT -May be weightbearing and hip range of motion as tolerated but expect need for max assist and significant pain for 2-3 weeks. -Pain management per the primary team. -She did have relative VTE prophylaxis for up to 6 weeks or until returns to former ambulatory status. She could follow-up in orthopedics if she is not making significant progress by 6 weeks, sooner with any worsening pain or other issue. History of Present Illness Reason for Consultation: Pelvic fracture Requesting Physician: . Attending Physician: Robby Beatty MD 81-year-old female with multiple chronic medical comorbidities and who is a minimal ambulator at the [facility] brought to the ER because of a fall. Her son was present in the room. She said pain was manageable when she is lying in bed. She has not yet tried to getting out of bed. No prior history of pelvic fracture. Denies any numbness or tingling to bilateral lower extremities. Denies any bowel or bladder issues since the fall Allergies Allergy/AdvReac Type Severity Reaction Status Date / Time adhesive Allergy Unknown ADHESIVE Verified 02/20/22 09:19 TAPE Home Medications Medication Instructions Recorded Confirmed Type citalopram 40 mg tablet 40 mg PO QAM #30 tabs 10/29/20 08/20/22 Rx clopidogrel 75 mg tablet 75 mg PO QAM #30 tabs 10/29/20 08/20/22 Rx famotidine 20 mg tablet 20 mg PO QAM #30 tabs 10/29/20 08/20/22 Rx ferrous sulfate 325 mg (65 mg 325 mg PO BID #60 tabs 10/29/20 08/20/22 Rx iron) tablet,delayed release furosemide 20 mg tablet 20 mg PO QAM #30 tabs 10/29/20 08/20/22 Rx levothyroxine 50 mcg tablet 50 mcg PO DAILYBB #30 tabs 10/29/20 08/20/22 Rx (Synthroid) methenamine hippurate 1 gram tablet 1 g PO HS #30 tabs 10/29/20 08/20/22 Rx metoprolol succinate 25 mg 12.5 mg PO DAILY #30 tabs 10/29/20 08/20/22 Rx tablet,extended release 24 hr warfarin 6 mg tablet 6 mg PO [id number] 06/14/21 08/20/22 History Culturelle 2 cap PO DAILY 11/21/21 08/20/22 History multivitamin (Daily-Nori tablet) 1 tab PO DAILY 11/21/21 08/20/22 History spironolactone 25 mg tablet 12.5 mg PO QAM 11/21/21 08/20/22 History insulin glargine 100 unit/mL (3 5 unit (0.05 mL) SC DAILY #10 mL 11/23/21 08/20/22 Rx mL) subcutaneous pen (Lantus Solostar U-100 Insulin) magnesium oxide 400 mg PO HS 08/20/22 08/20/22 History riboflavin (vitamin B2) 400 mg 400 mg PO HS 08/20/22 08/20/22 History tablet warfarin 3 mg tablet 3 mg PO WK 08/20/22 08/20/22 History Past Med/Surg History Medical History Acute blood loss anemia Acute confusion Acute UTI (urinary tract infection) Afib Anemia Aortic root dilatation 4.4 cm on echo 01/2019 Aortic root normal size on 02/2020 ECHO Asthma Atrial fibrillation Bifascicular block CAD (coronary artery disease) "1995 - PTCA and stenting of RCA 07/2011 - atherectomy and stenting RCA 12/2011- AZALIA to the mid LAD 2016-Cobra stent to mid LAD 2017-AZALIA to ostial diagonal Calculus of distal left ureter Chest pain Chronic heart failure with preserved ejection fraction (HFpEF) Closed fracture of left hip February 2020trochanteric nail placed by Ortho Congestive heart failure Depression DM type 2 (diabetes mellitus, type 2) DVT prophylaxis Dyslipidemia Encephalopathy, metabolic GERD (gastroesophageal reflux disease) Hypertension Hypotension Hypothyroidism Hypovolemic shock HOMERO (iron deficiency anemia) Macular degeneration MDS (myelodysplastic syndrome) Mild aortic stenosis Per 02/19/20 ECHO- ASHLEY 1.84 cm; AV max velocity 2.491 m/s; AV mean PG 13.6 mmHg Mitral stenosis Moderate per 02/2020 ECHO Pacemaker Sinus node dysfunction VRE (vancomycin resistant enterococcus) culture positive Surgical History History of angioplasty History of arthroscopy of knee History of arthroscopy of shoulder History of cholecystectomy History of gastric bypass History of incisional hernia repair History of partial hysterectomy History of tonsillectomy Family History Father Colorectal cancer Sister Lung cancer Diabetes Brother Diabetes Mother Diabetes Other KATHY (acute kidney injury) Acute blood loss anemia Social History Smoking Status: Never smoker Second Hand Exposure: No; Do You Dip or Chew Tobacco: No; Hx Alcohol Use: Yes Alcohol type: beer and wine Hx Substance Use: No Preferred Language: Citizen [place] Communication Ability: Effective Visual Impairment: No Limitations 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 Physical Exam Pelvis: Stable to compression. BLE: Tolerates logroll lying supine in the bed well. Can perform a straight leg raise bilaterally. Nontender along the thigh and leg. DNVI Constitutional WD/WN, vitals as above Respiratory normal respiratory effort; no respiratory distress Cardiovascular Extremities: normal capillary refill; no edema Chest (Breasts) Chest: normal inspection of chest Skin no rashes, warm and dry Psychiatric Orientation: alert, oriented to person and oriented to place Apperance: appeared stated age Eye Contact: good eye contact Results & Data Results & Data Laboratory Results . Diagnostic Findings H & H 08/20/22 08/21/22 Range/Units 18:23 05:54 Hgb 10.0 L 7.9 L (12.0-16.0) g/dl Hct 29.1 L 23.6 L (37.0-47.0) % Coagulation 08/20/22 08/21/22 Range/Units 18:23 05:54 INR > 9.5 H* 1.5 H (0.9-1.1) Radiographs of the pelvis and CT abdominal and pelvis demonstrate fractures of the left superior and inferior pubic rami with mild displacement and impaction. There is a minimally displaced concomitant sacral fracture, as expected. Mild degree of hemorrhage about it as expected. PG Care Time/CCT Total # of Minutes Spent Total Time Spent with Patient: Total time spent is greater than 50% in coordination of care (as documented) at patient's floor/unit and/or counseling patient: Coding Level of Care Code 87017 IN/OBS CONSULT LVL 4,60M Diagnoses Closed pelvic fracture S32.9XXA Closed sacral fracture S32.10XA
--- NOTE | 2022-08-21 12:46 | Hospitalist Progress Note ---
Date of Service August 21, 2022 Assessment & Plan (1) Closed pelvic fracture: (2) Closed sacral fracture: (3) UTI (urinary tract infection): Plan: Patient is an 81-year-old female who is wheelchair bound at [facility] who tried to stand up and fell. She was found to have pelvic fractures and also urinary tract infection. Pelvic x-ray reviewed; acute left pubic ring fractures CT abdomen and pelvis reviewed; has a small to moderate presacral blood and small amount of extraperitoneal blood. Also found to have displaced fracture of left sacral ala. Also, nondisplaced fracture of S2 vertebral body. Urinalysis reviewed; consistent with UTI. Urine culture gram-negative bacilli Orthopedic consulted; recommend none surgical management for the fractures. PT OT ordered Pain control with Tylenol scheduled and oxycodone as needed. Continue on ceftriaxone for now. We will follow-up on final culture sensitivity. (4) Elevated INR: (5) Acute blood loss anemia: Plan: Found to have supratherapeutic INR greater than 9.5. Status post 10 mg of IV vitamin K in the ED INR decreased to 1.5 CT abdomen and pelvis as above Labs reviewed; hemoglobin dropped from 10-7.9. We will hold off on Coumadin for now. Hold Plavix Will resume after hemoglobin is stable (6) KATHY (acute kidney injury): Plan: Likely prerenal due to blood loss Creatinine found to be elevated to 1.6. Down trended with IV hydration Avoid nephrotoxic agents (7) Esophagitis: Plan: CT abdomen and pelvis shows possible esophagitis. GI consulted; recommend Protonix twice daily No endoscopy for now. [employer] evaluation done; diet ordered as per recommendation Plan Other conditions; History of atrial fibrillation: Rate controlled with metoprolol succinate. Holding Coumadin as above. History of chronic diastolic congestive heart failure: Continue metoprolol succinate. Holding Lasix for now. History of coronary artery disease, status post stent:Holding Plavix today. Resume when hemoglobin is stable. Hypothyroidism: On Synthroid. Diabetes: Continue home Lantus. Placed on insulin sliding scale. Will follow blood sugars. Depression: Continue citalopram. Sick sinus syndrome: Status post permanent pacemaker. Ascending thoracic aorta aneurysm. Needs followup. Mild elevation of troponin. Mostly demand ischemia. EF of 65 to 70% with severely dilated left atrium. Deep venous thrombosis prophylaxis:SCDs for now. I called her son Demar; left voice message. Awaiting callback. Time spent evaluating patient, direct bedside care, chart review, placing orders, interpretation of diagnostic studies, discussion with consultants, patient, and family members, as well as other required patient management activities is 60 minutes Please note the above document was generated using voice recognition software. It may contain grammatical, syntax or spelling errors. Any formal questions or concerns about the content, text or information contained within the body of this dictation should be directly addressed to the provider for clarification Admission and Anticipated Discharge Date Admission Date: August 20, 2022 Subjective Patient seen and examined at bedside. She is comfortably lying on the bed; not in distress. Reports pain on movement of left hip on movement. Review of Systems Review of Systems: All systems reviewed & are unremarkable except as noted in Subjective Physical Exam Physical Exam: Constitutional: Awake, oriented to self. Able to follow simple commands. Neck: trachea midline, no thyromegaly normal visual inspection Respiratory: normal respiratory effort, lungs clear to auscultation, no wheeze, rales, rhonchi. Normal insp/exp effort, no accessory muscle use Cardiovascular: Irregular, systolic murmur, no edema Vessels: no JVD or carotid bruit Chest: normal inspection of chest Abdomen: normal bowel sounds, soft, nontender, no hepatosplenomegaly Musculoskeletal: Pain on movement of left hip. Skin: no rashes, warm and dry normal turgor Neurologic: Grossly intact. Results & Data Results & Data Vital Signs (Past 12 Hours) Vital Signs Temp Pulse Pulse Resp BP Pulse Ox O2 Del Method 08/21/22 11:38 36.5 C 87 20 97/60 L 97 Room Air 08/21/22 10:25 96 H 08/21/22 00:53 82 08/21/22 07:50 36.6 C 94 H 18 111/64 95 Room Air 08/21/22 01:09 Room Air 08/21/22 03:42 36.6 C 86 18 110/60 93 Room Air 08/21/22 01:09 36.6 C 86 20 109/65 95 Room Air Laboratory Results Laboratory Results WBC 6.76 K/ul (4.8-10.8) 08/21/22 05:54 RBC 2.54 M/uL (4.20-5.40) L 08/21/22 05:54 Hgb 7.9 g/dl (12.0-16.0) L 08/21/22 05:54 Hct 23.6 % (37.0-47.0) L 08/21/22 05:54 MCV 92.9 fL (80.0-100.0) 08/21/22 05:54 MCH 31.1 pg (25.0-34.0) 08/21/22 05:54 MCHC 33.5 g/dL (32.0-36.0) 08/21/22 05:54 RDW Std Deviation 43.3 fL (36.4-46.3) 08/21/22 05:54 RDW Coeff of Gaston 13.0 % (11.5-14.5) 08/21/22 05:54 Plt Count 134 K/uL (130-400) 08/21/22 05:54 MPV 11.2 fL (9.4-12.4) 08/21/22 05:54 Immature Gran % (Auto) 0.3 % 08/21/22 05:54 Neut % (Auto) 86.5 % 08/21/22 05:54 Lymph % (Auto) 7.2 % 08/21/22 05:54 Terry % (Auto) 5.5 % 08/21/22 05:54 Eos % (Auto) 0.1 % 08/21/22 05:54 Baso % (Auto) 0.4 % 08/21/22 05:54 Neut # (Auto) 5.84 K/uL (1.40-6.50) 08/21/22 05:54 Lymph # (Auto) 0.49 K/uL (1.2-3.4) L 08/21/22 05:54 Terry # (Auto) 0.37 K/uL (0.11-0.59) 08/21/22 05:54 Eos # (Auto) 0.01 K/uL (0-0.50) 08/21/22 05:54 Baso # (Auto) 0.03 K/uL (0-0.2) 08/21/22 05:54 Immature Gran # (Auto) 0.02 K/uL (0.01-0.20) 08/21/22 05:54 Polychromasia 1+ 08/21/22 05:54 Ovalocytes 1+ 08/21/22 05:54 PT 15.8 Seconds (9.0-12.0) H 08/21/22 05:54 INR 1.5 (0.9-1.1) H 08/21/22 05:54 APTT 49.8 Seconds (21.0-31.0) H* 08/20/22 18:23 PTT Ratio 1.8 08/20/22 18:23 Sodium 138 mmol/L (136-145) 08/21/22 05:54 Potassium 3.5 mmol/L (3.5-5.1) 08/21/22 05:54 Chloride 106 mmol/L (98-107) 08/21/22 05:54 Carbon Dioxide 25 mmol/L (21-32) 08/21/22 05:54 Anion Gap 7 (3-11) 08/21/22 05:54 BUN 31 mg/dl (6-23) H 08/21/22 05:54 Creatinine 1.20 mg/dl (0.6-1.2) D 08/21/22 05:54 Est Cr Clr Drug Dosing 32.0 ml/min 08/21/22 05:54 Est GFR ( Amer) 48.4 ml/min 08/21/22 05:54 Est GFR (Non-Af Amer) 41.8 ml/min 08/21/22 05:54 BUN/Creatinine Ratio 25.8 (10-20) H 08/21/22 05:54 Glucose 166 mg/dl (70-99(Fasting)) H 08/21/22 05:54 POC Glucose 166 mg/dl (70-99) H 08/21/22 11:48 Estimat Average Glucose 160 mg/dl 08/21/22 05:54 Hemoglobin A1c 7.2 % (4.5-5.6) H 08/21/22 05:54 Calcium 8.4 mg/dl (8.6-10.3) L 08/21/22 05:54 Magnesium 1.9 mg/dl (1.7-2.4) 08/21/22 05:54 Total Bilirubin 0.8 mg/dl (0.2-1.0) 08/20/22 18:23 AST 35 U/L (13-39) 08/20/22 18:23 ALT 22 U/L (7-52) 08/20/22 18:23 Alkaline Phosphatase 82 U/L (34-104) 08/20/22 18:23 Troponin I High Sens 34.8 pg/ml (0-14) H 08/21/22 05:54 Total Protein 6.8 gm/dl (6.0-8.3) 08/20/22 18:23 Albumin 3.8 gm/dl (3.4-5.0) 08/20/22 18:23 Globulin 3.0 gm/dl (2.5-4.0) 08/20/22 18:23 Albumin/Globulin Ratio 1.3 (0.9-2) 08/20/22 18:23 Urine Color Yellow 08/20/22 21:40 Urine Appearance Clear (Clear) 08/20/22 21:40 Urine pH 5.0 (4.5-7.5) 08/20/22 21:40 Ur Specific [place] 1.035 (1.000-1.030) H 08/20/22 21:40 Urine Protein Negative (Negative) 08/20/22 21:40 Urine Glucose (UA) Negative (Negative) 08/20/22 21:40 Urine Ketones Trace (Negative) H 08/20/22 21:40 Urine Blood 2+ (Negative) H 08/20/22 21:40 Urine Nitrite Negative (Negative) 08/20/22 21:40 Urine Bilirubin Negative (Negative) 08/20/22 21:40 Urine Urobilinogen Negative (Negative) 08/20/22 21:40 Ur Leukocyte Esterase Negative (Negative) 08/20/22 21:40 Urine WBC (Auto) 1-5 /hpf (0-5) 08/20/22 21:40 Urine RBC (Auto) 0-4 /hpf (0-4) 08/20/22 21:40 U Hyaline Cast (Auto) 1-5 /lpf (0-5) 08/20/22 21:40 U Epithel Cells (Auto) >30 /lpf (0-5) H 08/20/22 21:40 Urine Bacteria (Auto) 4+ (Negative) H 08/20/22 21:40 SARS-CoV-2, RNA, NAAT NEGATIVE (NEGATIVE) 08/20/22 22:55 Impressions Chest X-Ray 08/20/22 18:13 SINGLE VIEW CHEST CLINICAL HISTORY: Atypical chest pain. FINDINGS: An AP, portable, semierect chest radiograph is compared to study dated 06/30/2021. A 2-lead cardiac pacemaker is unchanged in position. The heart is enlarged noting atherosclerotic calcification of the thoracic aorta. The pulmonary vasculature is noncongested. Chronic interstitial thickening similar to previous. There is mild bibasilar scarring/atelectasis. The lungs and pleural spaces are otherwise clear. No pneumothorax is seen. The skeletal structures are osteopenic. The bony thorax is grossly intact. Have an postsurgical change is noted in the shoulders. IMPRESSION: 1. Cardiomegaly and cardiac pacemaker without radiographic evidence of congestive failure. 2. There is no airspace consolidation or large pleural effusion identified. ACT 112: Negative or not required by law. Electronically signed by: Luis Fernando Murdock M.D. 08/20/2022 11:[address] 08/20/22 18:58 Exam(s): CT C SPINE EXAM: CT Cervical Spine Without Intravenous Contrast CLINICAL HISTORY: Reason for exam: fall. TECHNIQUE: Axial computed tomography images of the cervical spine without intravenous contrast. CTDI is 24.53 mGy and DLP is 457.11 mGy-cm. Automated exposure control was utilized for the study. A dose lowering technique was utilized adhering to the principles of ALARA. COMPARISON: CT C-spine on 02/22/2019 FINDINGS: Bones: Ossification in the nuchal ligament is likely related to remote trauma. No acute fracture or bony lesion. Disc spaces: Degenerative changes of the spine. Minimal anterolisthesis of C3 on C4 and C7 on T1. Minimal retrolisthesis of C5 and C6. Soft tissues: Normal. Other: Atherosclerotic changes of the vasculature. Hypodense nodule in the left thyroid lobe which could be further evaluated with ultrasound if clinically indicated. IMPRESSION: No acute traumatic abnormality. Electronically signed by: Tha Russell M.D. 08/20/22 19:[address] 08/20/22 18:58 Exam(s): CT HEAD Without Contrast EXAM: CT Head Without Intravenous Contrast CLINICAL HISTORY: Reason for exam: fall. TECHNIQUE: Axial computed tomography images of the head/brain without intravenous contrast. CTDI is 35.65 mGy and DLP is 624.41 mGy-cm. Automated exposure control was utilized for the study. A dose lowering technique was utilized adhering to the principles of ALARA. COMPARISON: CT head on 11/21/2021 FINDINGS: Brain: No acute infarct or hemorrhage identified. No extra-axial fluid collection. No mass effect or midline shift. Scattered areas of hypoattenuation in the supratentorial white matter likely represent chronic small vessel ischemic changes. Ventricles and sulci: Prominence of the ventricles and sulci is likely secondary to cerebral volume loss. Bones: Hyperostosis frontalis interna. No bony lesion or acute fracture. Subcutaneous tissues: Normal. Sinuses: Normal. No air-fluid levels or mucosal thickening. Mastoid air cells: Normal. Orbits: Bilateral lens implants. Other: Atherosclerotic calcifications in the intracranial vasculature. IMPRESSION: 1. No acute intracranial abnormality. 2. Chronic small vessel ischemic changes and cerebral volume loss. Electronically signed by: Tha Russell M.D. 08/20/22 19:39 PM Pelvis X-Ray 08/20/22 19:00 SINGLE VIEW PELVIS CLINICAL HISTORY: Fall. Hip pain. FINDINGS: 2 AP supine pelvic radiographs are compared to study dated 02/18/2020. Correlation is made with pelvic CT scans dated 06/30/2021 and 08/20/2022. The skeletal structures are osteopenic. There is chronic posttraumatic deformity of the left proximal femur with intertrochanteric and intramedullary nails in place. There are acute left superior and inferior pubic ring fractures. No additional acute fracture is seen involving the hips or bony pelvis. Mild to moderate arthritic change and joint space narrowing seen in the hips. There is degenerative sclerosis of the sacroiliac joints. The overlying soft tissues are within normal limits. Heterotopic ossification is again seen medial to the right proximal femur. Tiny phleboliths are noted in the pelvis. Lumbosacral spondylosis is partially imaged. IMPRESSION: 1. Acute left pubic ring fractures. 2. No additional acute fracture is seen involving the hips or pelvis by x-ray. 3. A left sacral alar fracture seen on today's CT scan is not visualized by x- ray. Electronically signed by: Luis Fernando Murdock M.D. 08/20/2022 10:46 PM Abdomen/Pelvis CT 08/20/22 20:08 Exam(s): CT ABDOMEN + PELVIS With Contrast IV Amt: 90ml OPTIRAY 320 EXAM: CT Abdomen and Pelvis With Intravenous Contrast CLINICAL HISTORY: Reason for exam: fall pelvic fx don inr. TECHNIQUE: Axial computed tomography images of the abdomen and pelvis with intravenous contrast. CTDI is 23.73 mGy and DLP is 1780.52 mGy-cm. Automated exposure control was utilized for the study. A dose lowering technique was utilized adhering to the principles of ALARA. CONTRAST: Patient received 90ml OPTIRAY 320 of IV contrast COMPARISON: CT abdomen/pelvis on 06/30/2021 FINDINGS: Lung bases: Unremarkable. No mass. No consolidation. ABDOMEN: Liver: Unremarkable. No mass. Gallbladder and bile ducts: Prior cholecystectomy. Possible postcholecystectomy ductal ectasia, slightly increased compared to prior exam. Further evaluation could be performed with ERCP or MRCP if clinically indicated. Pancreas: Unremarkable. No mass. No ductal dilation. Spleen: Unremarkable. No splenomegaly. Adrenals: Unremarkable. No mass. Kidneys and ureters: Unremarkable. No solid mass. No hydronephrosis. Stomach and bowel: Postsurgical changes of the stomach. Evaluation of the stomach is limited by under distention. Diverticulosis without evidence of diverticulitis. No small bowel ejection. PELVIS: Appendix: Normal appendix. Bladder: Mild prominence of the bladder wall is nonspecific. Please correlate with urinalysis if concerned for cystitis. Reproductive: Prior hysterectomy. Subperitoneal space: Small to moderate presacral blood. Small amount of extraperitoneal blood in the pelvis. ABDOMEN and PELVIS: Intraperitoneal space: Unremarkable. No free air. No significant fluid collection. Bones/joints: Mildly displaced fractures of the left superior and inferior pubic rami. Mildly displaced fracture of the left sacral ala. Nondisplaced fracture of the S2 vertebral body. Degenerative changes of the spine. Intramedullary misael and screw fixation of the left femur. Old proximal left femur fracture deformity. Dystrophic calcifications along the proximal femurs or in the distal right iliopsoas muscle. No dislocation. Soft tissues: Unremarkable. Vasculature: Extensive vascular calcifications. No aortic aneurysm or dissection. Lymph nodes: Unremarkable. No enlarged lymph nodes. IMPRESSION: 1. Small to moderate presacral blood. Small amount of extraperitoneal blood in the pelvis. 2. Mildly displaced fractures of the left superior and inferior pubic rami. 3. Mildly displaced fracture of the left sacral ala. Nondisplaced fracture of the S2 vertebral body. 4. Mild prominence of the bladder wall is nonspecific. Please correlate with urinalysis if concerned for cystitis. Electronically signed by: Tha Russell M.D. 08/20/22 21:[address] 08/20/22 20:08 Exam(s): CT CHEST With Contrast IV Amt: 90ml OPTIRAY 320 EXAM: CT Chest With Intravenous Contrast CLINICAL HISTORY: Reason for exam: fall pelvic fx. TECHNIQUE: Axial computed tomography images of the chest with intravenous contrast. CTDI is 18.58 mGy and DLP is 646.53 mGy-cm. Automated exposure control was utilized for the study. A dose lowering technique was utilized adhering to the principles of ALARA. CONTRAST: Patient received 90ml OPTIRAY 320 of IV contrast COMPARISON: CT chest on 10/24/2020 FINDINGS: Lungs: Unremarkable. No mass. No consolidation. Pleural space: Unremarkable. No pneumothorax. No significant effusion. Heart: Prominent coronary artery, aortic valve, and mitral annular calcifications. Mild cardiomegaly. Left-sided pacemaker. No significant pericardial effusion. Mediastinum: Esophagus is distended with fluid and ingested material. Wall thickening of the esophagus may represent esophagitis. Bones/joints: Degenerative changes of the spine. Ankylosing spondylosis changes. No acute fracture. No dislocation. Soft tissues: Calcifications along the posterior paraspinal muscles. Vasculature: Atherosclerotic changes of the vasculature. Ectasia of the ascending thoracic aorta, measuring approximately 4.3 cm in diameter. No aortic dissection. Lymph nodes: Unremarkable. No enlarged lymph nodes. IMPRESSION: 1. Esophagus is distended with fluid and ingested material. Wall thickening of the esophagus may represent esophagitis. 2. Slightly increased ectasia of the ascending thoracic aorta measuring 4.3 cm. 3. No acute traumatic abnormality. Electronically signed by: Tha Russell M.D. 08/20/22 21:11 PM
[2022-08-21] MEDS ORDERED: NON-FORMULARY MEDICATION (Riboflavin (Vitamin B2) 400 mg Tablet) PO SCH (21:00)
[2022-08-21] MEDS: MAGNESIUM OXIDE 400 MG TAB PO SCH (21:25)
[2022-08-21] MEDS: ONDANSETRON INJ 2 MG/ML 2 ML VIAL IV PRN (21:35)
[2022-08-21] MEDS ORDERED: MoRPHine SULFATE 4 MG/ML 1 ML CARP\\VIAL IV STA (21:52)
[2022-08-21] MEDS ORDERED: OPTIRAY 320 100ml IV ONE (22:16)
--- NOTE | 2022-08-21 23:04 | CT Scan Report ---
Exam(s): CT ABDOMEN + PELVIS With Contrast IV Amt: 90 ML OPTIRAY 320 EXAM: CT Abdomen and Pelvis With Intravenous Contrast CLINICAL HISTORY: Reason for exam: distended and tender abdomen. hematoma?. TECHNIQUE: Axial computed tomography images of the abdomen and pelvis with intravenous contrast. CTDI is 24.8 mGy and DLP is 1118.34 mGy-cm. Automated exposure control was utilized for the study. A dose lowering technique was utilized adhering to the principles of ALARA. CONTRAST: Patient received 90 ML OPTIRAY 320 of IV contrast COMPARISON: 6 09/2022. FINDINGS: Lung bases: Mild bilateral lower lobe atelectasis. Pleural space: Mild bilateral pleural effusions. Heart: Mild cardiomegaly with pacemaker leads in place. Mediastinum: Postoperative changes of the stomach with mild hiatal hernia versus dilatation of the esophagus. Fluid within the esophagus suggestive of reflux. ABDOMEN: Liver: Unremarkable. No mass. Gallbladder and bile ducts: Nonvisualized gallbladder suggestive of previous cholecystectomy. Distention of the biliary system with common bile duct measuring up to 9.8 mm at the pancreatic head. Pancreas: Diffuse atrophy of the pancreas. No ductal dilation. Spleen: Unremarkable. No splenomegaly. Adrenals: Unremarkable. No mass. Kidneys and ureters: Right lower renal pole simple cyst measuring 1.4 cm. No hydronephrosis. Stomach and bowel: Unremarkable. No obstruction. No mucosal thickening. PELVIS: Appendix: No findings to suggest acute appendicitis. Bladder: The urinary bladder is decompressed Via Chaudhry catheter. Reproductive: Unremarkable as visualized. Subperitoneal space: There is presacral fluid with high density suggestive of hemorrhagic component with hematoma. There is trace amount of fluid of high density within the pelvis, possibly hematoma. ABDOMEN and PELVIS: Intraperitoneal space: Unremarkable. No free air. No significant fluid collection. Bones/joints: There is a fracture involving the left inferior pubic ramus. Fracture of the superior pubic ramus near the pubic symphysis. Postoperative changes of the proximal left femur. Subtle cortical step- off through the S2 vertebral body extending to the sacral wing, cannot exclude a fracture. No dislocation. Soft tissues: Unremarkable. Vasculature: Atherosclerotic disease of aorta with no aneurysm or dissection. Lymph nodes: Unremarkable. No enlarged lymph nodes. IMPRESSION: 1. Fracture of the left superior and inferior pubic rami as described. Possible fracture involving the S2 vertebral body and possible sacral wing. 2. Prevertebral high density fluid with trace similar fluid within the pelvis, likely hematoma/hemorrhagic from trauma. 3. Right lower renal pole simple cyst measuring 1.4 cm, likely benign. No further imaging recommended for follow-up. Pancreatic scarring with status post cholecystectomy. Nonspecific biliary distention. Otherwise unremarkable abdominal viscera with no evidence of visceral injury. 4. Questionable hiatal hernia versus distal esophageal reflux with esophageal distention. Postoperative changes of the stomach. Clinical correlation recommended. Electronically signed by: Tamie Geller MD 08/21/22 23:03 PM
[2022-08-22] MEDS: cefTRIAXone SODIUM 2,000 MG in DEXTROSE 5% 50 ML IV SCH (03:23)
[2022-08-22] MEDS: LEVOTHYROXINE SODIUM 50 MCG TABLET PO SCH (06:24)
[2022-08-22] MEDS: oxyCODONE HCL IR 5 MG TAB (IMMEDIATE RELEASE) PO PRN (08:02)
[2022-08-22] MEDS: POLYETHYLENE (MIRALAX) 17 GM PACK PO PRN (08:02)
[2022-08-22] MEDS: FERROUS SULFATE 325 MG TAB PO SCH ×2 (08:03→20:29)
[2022-08-22] MEDS: MULTIVITAMIN TAB PO SCH (08:03)
[2022-08-22] MEDS: CITALOPRAM 40 MG TAB PO SCH (08:03)
[2022-08-22] MEDS: SPIRONOLACTONE 12.5 MG TAB PO SCH (08:03)
[2022-08-22] MEDS: ADVANCED PROBIOTIC 1250 MG CAPSULE PO SCH (08:03)
[2022-08-22] MEDS: FUROSEMIDE 20 MG TAB PO SCH (08:04)
[2022-08-22] MEDS: METOPROLOL SUCC 25MG EXT REL TAB PO SCH (08:04)
[2022-08-22] MEDS: INSULIN ASPART PER UNIT CHARGE SC SCH ×4 (08:05→20:35)
[2022-08-22] MEDS: LANTUS PER UNIT CHARGE SC SCH (08:05)
[2022-08-22] MEDS: PANTOprazole 40 MG in SYRINGE 0 ML IV SCH (08:10)
[2022-08-22 09:21] LABS: Basophils # (auto) 0.06 K/uL (0-0.2); Basophils % (auto) 1.1 %; Eosinophils # (auto) 0.08 K/uL (0-0.50); Eosinophils % (auto) 1.5 %; Hematocrit (blood only) 26.5 % (37.0-47.0); Hemoglobin 8.5 g/dl (12.0-16.0); Immature Granulocytes # (auto) 0.03 K/uL (0.01-0.20); Immature Granulocytes % (auto) 0.6 %; Lymphocytes # (auto) 0.42 K/uL (1.2-3.4); Lymphocytes % (auto) 7.9 %; Mean Corpuscular Hemoglobin 30.7 pg (25.0-34.0); Mean Corpuscular Hgb Conc 32.1 g/dL (32.0-36.0); Mean Corpuscular Volume 95.7 fL (80.0-100.0); Mean Platelet Volume 11.2 fL (9.4-12.4); Monocytes # (auto) 0.37 K/uL (0.11-0.59); Neutrophils # (auto) 4.35 K/uL (1.40-6.50); Neutrophils % (auto) 81.9 %; Platelet Count 162 K/uL (130-400); RDW Coefficient of Variation 13.1 % (11.5-14.5); RDW Standard Deviation 45.6 fL (36.4-46.3); Red Blood Count 2.77 M/uL (4.20-5.40); White Blood Count 5.31 K/ul (4.8-10.8)
[2022-08-22 09:39] LABS: Albumin Globulin Ratio 1.2 (0.9-2); Albumin Level 3.1 gm/dl (3.4-5.0); BUN Creatinine Ratio 20.9 (10-20); Bilirubin,Total 0.5 mg/dl (0.2-1.0); Calcium 8.6 mg/dl (8.6-10.3); Creatinine Clr Calc Pharmacy 36.4 ml/min; Est GFR (African American) 53.8 ml/min; Est GFR (Non-African American) 46.4 ml/min; Globulin 2.5 gm/dl (2.5-4.0); Potassium 3.5 mmol/L (3.5-5.1); Total Protein 5.6 gm/dl (6.0-8.3)
[2022-08-22 09:54] LABS: Prothrombin Time 11.1 Seconds (9.0-12.0)
[2022-08-22] MEDS: ONDANSETRON INJ 2 MG/ML 2 ML VIAL IV PRN (10:34)
[2022-08-22] MEDS: ACETAMINOPHEN 325 MG TAB PO SCH ×2 (10:35→17:17)
[2022-08-22] MEDS: ERTAPENEM SODIUM 1,000 MG in SYRINGE 0 ML IV SCH (10:35)
--- NOTE | 2022-08-22 14:50 | Hospitalist Progress Note ---
Date of Service August 22, 2022 Assessment & Plan (1) Closed pelvic fracture: (2) Closed sacral fracture: (3) UTI (urinary tract infection): Plan: Patient is an 81-year-old female who is wheelchair bound at [facility] who tried to stand up and fell. She was found to have pelvic fractures and also urinary tract infection. Pelvic x-ray reviewed; acute left pubic ring fractures CT abdomen and pelvis reviewed; has a small to moderate presacral blood and small amount of extraperitoneal blood. Also found to have displaced fracture of left sacral ala. Also, nondisplaced fracture of S2 vertebral body. Urinalysis reviewed; consistent with UTI. Urine culture shows ESBL E. coli. Orthopedic consulted; recommend none surgical management for the fractures. PT OT eval Pain control with Tylenol scheduled and oxycodone as needed. Antibiotics changed to ertapenem. (4) Elevated INR: (5) Acute blood loss anemia: Plan: Found to have supratherapeutic INR greater than 9.5. Status post 10 mg of IV vitamin K in the ED INR decreased to 1 CT abdomen and pelvis as above Labs reviewed; hemoglobin dropped from 10-8 Started on Lovenox subcu for DVT prophylaxis. Monitor CBC while on Lovenox. We will hold off on full dose anticoagulation for now. (6) KATHY (acute kidney injury): Plan: Likely prerenal due to blood loss Creatinine found to be elevated to 1.6. Down trended with IV hydration Avoid nephrotoxic agents (7) Esophagitis: Plan: CT abdomen and pelvis shows possible esophagitis. GI consulted; recommend Protonix twice daily No endoscopy for now. [employer] evaluation done; diet ordered as per recommendation Plan Other conditions; History of atrial fibrillation: Rate controlled with metoprolol succinate. Holding Coumadin as above. Started on Lovenox subcu History of chronic diastolic congestive heart failure: Continue metoprolol succinate. Holding Lasix for now. History of coronary artery disease, status post stent:Resume Plavix. Hypothyroidism: On Synthroid. Diabetes: Continue home Lantus. Placed on insulin sliding scale. Will follow blood sugars. Depression: Continue citalopram. Sick sinus syndrome: Status post permanent pacemaker. Ascending thoracic aorta aneurysm. Needs followup. Mild elevation of troponin. Mostly demand ischemia. EF of 65 to 70% with severely dilated left atrium. Deep venous thrombosis prophylaxis: Lovenox Time spent evaluating patient, direct bedside care, chart review, placing orders, interpretation of diagnostic studies, discussion with consultants, patient, and family members, as well as other required patient management activities is 60 minutes Please note the above document was generated using voice recognition software. It may contain grammatical, syntax or spelling errors. Any formal questions or concerns about the content, text or information contained within the body of this dictation should be directly addressed to the provider for clarification Admission and Anticipated Discharge Date Admission Date: August 20, 2022 Subjective Patient seen and examined at bedside. She reports pain in her lower back. Afebrile, saturating well on room air. Review of Systems Review of Systems: All systems reviewed & are unremarkable except as noted in Subjective Physical Exam Physical Exam: Constitutional: Awake, oriented to self. Able to follow simple commands. Neck: trachea midline, no thyromegaly normal visual inspection Respiratory: normal respiratory effort, lungs clear to auscultation, no wheeze, rales, rhonchi. Normal insp/exp effort, no accessory muscle use Cardiovascular: Irregular, systolic murmur, no edema Vessels: no JVD or carotid bruit Chest: normal inspection of chest Abdomen: normal bowel sounds, soft, nontender, no hepatosplenomegaly Musculoskeletal: Pain on movement of left hip. Skin: no rashes, warm and dry normal turgor Neurologic: Grossly intact. Results & Data Results & Data Vital Signs (Past 12 Hours) Vital Signs Temp Pulse Resp BP BP Pulse Ox O2 Del Method 08/22/22 12:02 36.4 C L 80 18 108/66 95 Room Air 08/22/22 08:44 36.7 C 81 18 108/68 94 Room Air 08/22/22 03:26 36.6 C 86 20 120/70 97 Room Air Laboratory Results Laboratory Results WBC 5.31 K/ul (4.8-10.8) 08/22/22 08:45 RBC 2.77 M/uL (4.20-5.40) L 08/22/22 08:45 Hgb 8.5 g/dl (12.0-16.0) L 08/22/22 08:45 Hct 26.5 % (37.0-47.0) L 08/22/22 08:45 MCV 95.7 fL (80.0-100.0) 08/22/22 08:45 MCH 30.7 pg (25.0-34.0) 08/22/22 08:45 MCHC 32.1 g/dL (32.0-36.0) 08/22/22 08:45 RDW Std Deviation 45.6 fL (36.4-46.3) 08/22/22 08:45 RDW Coeff of [place] 13.1 % (11.5-14.5) 08/22/22 08:45 Plt Count 162 K/uL (130-400) 08/22/22 08:45 MPV 11.2 fL (9.4-12.4) 08/22/22 08:45 Immature Gran % (Auto) 0.6 % 08/22/22 08:45 Neut % (Auto) 81.9 % 08/22/22 08:45 Lymph % (Auto) 7.9 % 08/22/22 08:45 [place] % (Auto) 7.0 % 08/22/22 08:45 Eos % (Auto) 1.5 % 08/22/22 08:45 Baso % (Auto) 1.1 % 08/22/22 08:45 Neut # (Auto) 4.35 K/uL (1.40-6.50) 08/22/22 08:45 Lymph # (Auto) 0.42 K/uL (1.2-3.4) L 08/22/22 08:45 [place] # (Auto) 0.37 K/uL (0.11-0.59) 08/22/22 08:45 Eos # (Auto) 0.08 K/uL (0-0.50) 08/22/22 08:45 Baso # (Auto) 0.06 K/uL (0-0.2) 08/22/22 08:45 Immature Gran # (Auto) 0.03 K/uL (0.01-0.20) 08/22/22 08:45 Polychromasia 1+ 08/21/22 05:54 Ovalocytes 1+ 08/21/22 05:54 PT 11.1 Seconds (9.0-12.0) 08/22/22 08:45 INR 1.0 (0.9-1.1) 08/22/22 08:45 APTT 49.8 Seconds (21.0-31.0) H* 08/20/22 18:23 PTT Ratio 1.8 08/20/22 18:23 Sodium 141 mmol/L (136-145) 08/22/22 08:45 Potassium 3.5 mmol/L (3.5-5.1) 08/22/22 08:45 Chloride 109 mmol/L (98-107) H 08/22/22 08:45 Carbon Dioxide 25 mmol/L (21-32) 08/22/22 08:45 Anion Gap 7 (3-11) 08/22/22 08:45 BUN 23 mg/dl (6-23) 08/22/22 08:45 Creatinine 1.10 mg/dl (0.6-1.2) 08/22/22 08:45 Est Cr Clr Drug Dosing 36.4 ml/min 08/22/22 08:45 Est GFR ( Amer) 53.8 ml/min 08/22/22 08:45 Est GFR (Non-Af Amer) 46.4 ml/min 08/22/22 08:45 BUN/Creatinine Ratio 20.9 (10-20) H 08/22/22 08:45 Glucose 109 mg/dl (70-99(Fasting)) H 08/22/22 08:45 POC Glucose 187 mg/dl (70-99) H 08/22/22 11:56 Estimat Average Glucose 160 mg/dl 08/21/22 05:54 Hemoglobin A1c 7.2 % (4.5-5.6) H 08/21/22 05:54 Calcium 8.6 mg/dl (8.6-10.3) 08/22/22 08:45 Magnesium 1.9 mg/dl (1.7-2.4) 08/21/22 05:54 Total Bilirubin 0.5 mg/dl (0.2-1.0) 08/22/22 08:45 AST 23 U/L (13-39) 08/22/22 08:45 ALT 14 U/L (7-52) 08/22/22 08:45 Alkaline Phosphatase 63 U/L (34-104) 08/22/22 08:45 Troponin I High Sens 37.4 pg/ml (0-14) H 08/21/22 11:17 Total Protein 5.6 gm/dl (6.0-8.3) L 08/22/22 08:45 Albumin 3.1 gm/dl (3.4-5.0) L 08/22/22 08:45 Globulin 2.5 gm/dl (2.5-4.0) 08/22/22 08:45 Albumin/Globulin Ratio 1.2 (0.9-2) 08/22/22 08:45 Urine Color Yellow 08/20/22 21:40 Urine Appearance Clear (Clear) 08/20/22 21:40 Urine pH 5.0 (4.5-7.5) 08/20/22 21:40 Ur Specific [place] 1.035 (1.000-1.030) H 08/20/22 21:40 Urine Protein Negative (Negative) 08/20/22 21:40 Urine Glucose (UA) Negative (Negative) 08/20/22 21:40 Urine Ketones Trace (Negative) H 08/20/22 21:40 Urine Blood 2+ (Negative) H 08/20/22 21:40 Urine Nitrite Negative (Negative) 08/20/22 21:40 Urine Bilirubin Negative (Negative) 08/20/22 21:40 Urine Urobilinogen Negative (Negative) 08/20/22 21:40 Ur Leukocyte Esterase Negative (Negative) 08/20/22 21:40 Urine WBC (Auto) 1-5 /hpf (0-5) 08/20/22 21:40 Urine RBC (Auto) 0-4 /hpf (0-4) 08/20/22 21:40 U Hyaline Cast (Auto) 1-5 /lpf (0-5) 08/20/22 21:40 U Epithel Cells (Auto) >30 /lpf (0-5) H 08/20/22 21:40 Urine Bacteria (Auto) 4+ (Negative) H 08/20/22 21:40 SARS-CoV-2, RNA, NAAT NEGATIVE (NEGATIVE) 08/20/22 22:55 Impressions Chest X-Ray 08/20/22 18:13 SINGLE VIEW CHEST CLINICAL HISTORY: Atypical chest pain. FINDINGS: An AP, portable, semierect chest radiograph is compared to study dated 06/30/2021. A 2-lead cardiac pacemaker is unchanged in position. The heart is enlarged noting atherosclerotic calcification of the thoracic aorta. The pulmonary vasculature is noncongested. Chronic interstitial thickening similar to previous. There is mild bibasilar scarring/atelectasis. The lungs and pleural spaces are otherwise clear. No pneumothorax is seen. The skeletal structures are osteopenic. The bony thorax is grossly intact. Have an postsurgical change is noted in the shoulders. IMPRESSION: 1. Cardiomegaly and cardiac pacemaker without radiographic evidence of congestive failure. 2. There is no airspace consolidation or large pleural effusion identified. ACT 112: Negative or not required by law. Electronically signed by: Luis Fernando Murdock M.D. 08/20/2022 11:[address] 08/20/22 18:58 Exam(s): CT C SPINE EXAM: CT Cervical Spine Without Intravenous Contrast CLINICAL HISTORY: Reason for exam: fall. TECHNIQUE: Axial computed tomography images of the cervical spine without intravenous contrast. CTDI is 24.53 mGy and DLP is 457.11 mGy-cm. Automated exposure control was utilized for the study. A dose lowering technique was utilized adhering to the principles of ALARA. COMPARISON: CT C-spine on 02/22/2019 FINDINGS: Bones: Ossification in the nuchal ligament is likely related to remote trauma. No acute fracture or bony lesion. Disc spaces: Degenerative changes of the spine. Minimal anterolisthesis of C3 on C4 and C7 on T1. Minimal retrolisthesis of C5 and C6. Soft tissues: Normal. Other: Atherosclerotic changes of the vasculature. Hypodense nodule in the left thyroid lobe which could be further evaluated with ultrasound if clinically indicated. IMPRESSION: No acute traumatic abnormality. Electronically signed by: Tha Russell M.D. 08/20/22 19:[address] 08/20/22 18:58 Exam(s): CT HEAD Without Contrast EXAM: CT Head Without Intravenous Contrast CLINICAL HISTORY: Reason for exam: fall. TECHNIQUE: Axial computed tomography images of the head/brain without intravenous contrast. CTDI is 35.65 mGy and DLP is 624.41 mGy-cm. Automated exposure control was utilized for the study. A dose lowering technique was utilized adhering to the principles of ALARA. COMPARISON: CT head on 11/21/2021 FINDINGS: Brain: No acute infarct or hemorrhage identified. No extra-axial fluid collection. No mass effect or midline shift. Scattered areas of hypoattenuation in the supratentorial white matter likely represent chronic small vessel ischemic changes. Ventricles and sulci: Prominence of the ventricles and sulci is likely secondary to cerebral volume loss. Bones: Hyperostosis frontalis interna. No bony lesion or acute fracture. Subcutaneous tissues: Normal. Sinuses: Normal. No air-fluid levels or mucosal thickening. Mastoid air cells: Normal. Orbits: Bilateral lens implants. Other: Atherosclerotic calcifications in the intracranial vasculature. IMPRESSION: 1. No acute intracranial abnormality. 2. Chronic small vessel ischemic changes and cerebral volume loss. Electronically signed by: Tha Russell M.D. 08/20/22 19:39 PM Pelvis X-Ray 08/20/22 19:00 SINGLE VIEW PELVIS CLINICAL HISTORY: Fall. Hip pain. FINDINGS: 2 AP supine pelvic radiographs are compared to study dated 02/18/2020. Correlation is made with pelvic CT scans dated 06/30/2021 and 08/20/2022. The skeletal structures are osteopenic. There is chronic posttraumatic deformity of the left proximal femur with intertrochanteric and intramedullary nails in place. There are acute left superior and inferior pubic ring fractures. No additional acute fracture is seen involving the hips or bony pelvis. Mild to moderate arthritic change and joint space narrowing seen in the hips. There is degenerative sclerosis of the sacroiliac joints. The overlying soft tissues are within normal limits. Heterotopic ossification is again seen medial to the right proximal femur. Tiny phleboliths are noted in the pelvis. Lumbosacral spondylosis is partially imaged. IMPRESSION: 1. Acute left pubic ring fractures. 2. No additional acute fracture is seen involving the hips or pelvis by x-ray. 3. A left sacral alar fracture seen on today's CT scan is not visualized by x- ray. Electronically signed by: Luis Fernando Murdock M.D. 08/20/2022 10:[address] 08/20/22 20:08 Exam(s): CT CHEST With Contrast IV Amt: 90ml OPTIRAY 320 EXAM: CT Chest With Intravenous Contrast CLINICAL HISTORY: Reason for exam: fall pelvic fx. TECHNIQUE: Axial computed tomography images of the chest with intravenous contrast. CTDI is 18.58 mGy and DLP is 646.53 mGy-cm. Automated exposure control was utilized for the study. A dose lowering technique was utilized adhering to the principles of ALARA. CONTRAST: Patient received 90ml OPTIRAY 320 of IV contrast COMPARISON: CT chest on 10/24/2020 FINDINGS: Lungs: Unremarkable. No mass. No consolidation. Pleural space: Unremarkable. No pneumothorax. No significant effusion. Heart: Prominent coronary artery, aortic valve, and mitral annular calcifications. Mild cardiomegaly. Left-sided pacemaker. No significant pericardial effusion. Mediastinum: Esophagus is distended with fluid and ingested material. Wall thickening of the esophagus may represent esophagitis. Bones/joints: Degenerative changes of the spine. Ankylosing spondylosis changes. No acute fracture. No dislocation. Soft tissues: Calcifications along the posterior paraspinal muscles. Vasculature: Atherosclerotic changes of the vasculature. Ectasia of the ascending thoracic aorta, measuring approximately 4.3 cm in diameter. No aortic dissection. Lymph nodes: Unremarkable. No enlarged lymph nodes. IMPRESSION: 1. Esophagus is distended with fluid and ingested material. Wall thickening of the esophagus may represent esophagitis. 2. Slightly increased ectasia of the ascending thoracic aorta measuring 4.3 cm. 3. No acute traumatic abnormality. Electronically signed by: Tha Russell M.D. 08/20/22 21:11 PM Abdomen/Pelvis CT 08/21/22 21:50 Exam(s): CT ABDOMEN + PELVIS With Contrast IV Amt: 90 ML OPTIRAY 320 EXAM: CT Abdomen and Pelvis With Intravenous Contrast CLINICAL HISTORY: Reason for exam: distended and tender abdomen. hematoma?. TECHNIQUE: Axial computed tomography images of the abdomen and pelvis with intravenous contrast. CTDI is 24.8 mGy and DLP is 1118.34 mGy-cm. Automated exposure control was utilized for the study. A dose lowering technique was utilized adhering to the principles of ALARA. CONTRAST: Patient received 90 ML OPTIRAY 320 of IV contrast COMPARISON: 6 09/2022. FINDINGS: Lung bases: Mild bilateral lower lobe atelectasis. Pleural space: Mild bilateral pleural effusions. Heart: Mild cardiomegaly with pacemaker leads in place. Mediastinum: Postoperative changes of the stomach with mild hiatal hernia versus dilatation of the esophagus. Fluid within the esophagus suggestive of reflux. ABDOMEN: Liver: Unremarkable. No mass. Gallbladder and bile ducts: Nonvisualized gallbladder suggestive of previous cholecystectomy. Distention of the biliary system with common bile duct measuring up to 9.8 mm at the pancreatic head. Pancreas: Diffuse atrophy of the pancreas. No ductal dilation. Spleen: Unremarkable. No splenomegaly. Adrenals: Unremarkable. No mass. Kidneys and ureters: Right lower renal pole simple cyst measuring 1.4 cm. No hydronephrosis. Stomach and bowel: Unremarkable. No obstruction. No mucosal thickening. PELVIS: Appendix: No findings to suggest acute appendicitis. Bladder: The urinary bladder is decompressed Via Chaudhry catheter. Reproductive: Unremarkable as visualized. Subperitoneal space: There is presacral fluid with high density suggestive of hemorrhagic component with hematoma. There is trace amount of fluid of high density within the pelvis, possibly hematoma. ABDOMEN and PELVIS: Intraperitoneal space: Unremarkable. No free air. No significant fluid collection. Bones/joints: There is a fracture involving the left inferior pubic ramus. Fracture of the superior pubic ramus near the pubic symphysis. Postoperative changes of the proximal left femur. Subtle cortical step- off through the S2 vertebral body extending to the sacral wing, cannot exclude a fracture. No dislocation. Soft tissues: Unremarkable. Vasculature: Atherosclerotic disease of aorta with no aneurysm or dissection. Lymph nodes: Unremarkable. No enlarged lymph nodes. IMPRESSION: 1. Fracture of the left superior and inferior pubic rami as described. Possible fracture involving the S2 vertebral body and possible sacral wing. 2. Prevertebral high density fluid with trace similar fluid within the pelvis, likely hematoma/hemorrhagic from trauma. 3. Right lower renal pole simple cyst measuring 1.4 cm, likely benign. No further imaging recommended for follow-up. Pancreatic scarring with status post cholecystectomy. Nonspecific biliary distention. Otherwise unremarkable abdominal viscera with no evidence of visceral injury. 4. Questionable hiatal hernia versus distal esophageal reflux with esophageal distention. Postoperative changes of the stomach. Clinical correlation recommended. Electronically signed by: Tamie Geller MD 08/21/22 23:03 PM
[2022-08-22] MEDS: ENOXAPARIN INJ 40 MG/0.4 ML SYR SQ SCH (15:42)
[2022-08-22] MEDS: MAGNESIUM OXIDE 400 MG TAB PO SCH (20:29)
[2022-08-22] MEDS: PANTOprazole 40 MG TAB PO SCH (20:29)
[2022-08-23] MEDS: ACETAMINOPHEN 325 MG TAB PO SCH ×5 (00:17→17:29)
[2022-08-23] MEDS: LEVOTHYROXINE SODIUM 50 MCG TABLET PO SCH (05:54)
--- NOTE | 2022-08-23 06:19 | Electrocardiogram Report ---
Test Reason : Blood Pressure : / mmHG Vent. Rate : 102 BPM Atrial Rate : 000 BPM P-R Int : 000 ms QRS Dur : 128 ms QT Int : 344 ms P-R-T Axes : 000 -70 270 degrees QTc Int : 448 ms Atrial fibrillation with rapid ventricular response Left axis deviation Right bundle branch block T wave abnormality, consider inferolateral ischemia Abnormal ECG When compared with ECG of 30-JUN-2021 19:47, Atrial fibrillation has replaced Atrial flutter Confirmed by Levar Villalobos ([id number]) on 08/23/2022 6:19:03 AM Referred By: REFERRED SELF Confirmed By:Levar Villalobos
[2022-08-23 06:38] LABS: Albumin Globulin Ratio 1.2 (0.9-2); BUN Creatinine Ratio 21.9 (10-20); Bilirubin,Total 0.5 mg/dl (0.2-1.0); Calcium 8.6 mg/dl (8.6-10.3); Creatinine Clr Calc Pharmacy 38.3 ml/min; Est GFR (African American) 56.9 ml/min; Est GFR (Non-African American) 49.1 ml/min; Globulin 2.5 gm/dl (2.5-4.0); Potassium 3.8 mmol/L (3.5-5.1); Total Protein 5.5 gm/dl (6.0-8.3)
--- NOTE | 2022-08-23 06:42 | Electrocardiogram Report ---
Test Reason : Blood Pressure : / mmHG Vent. Rate : 088 BPM Atrial Rate : 122 BPM P-R Int : 000 ms QRS Dur : 150 ms QT Int : 404 ms P-R-T Axes : 000 -76 -87 degrees QTc Int : 488 ms Atrial fibrillation with premature ventricular or aberrantly conducted complexes Left axis deviation Right bundle branch block T wave abnormality, consider lateral ischemia Abnormal ECG When compared with ECG of 20-AUG-2022 18:16, T wave inversion less evident in Inferior leads T wave inversion less evident in Lateral leads Confirmed by Levar Villalobos ([id number]) on 08/23/2022 6:41:46 AM Referred By: REFERRED SELF Confirmed By:Levar Villalobos
[2022-08-23 06:50] LABS: Prothrombin Time 11.4 Seconds (9.0-12.0)
[2022-08-23 06:59] LABS: Basophils # (auto) 0.05 K/uL (0-0.2); Basophils % (auto) 1.1 %; Eosinophils % (auto) 4.5 %; Hemoglobin 9.2 g/dl (12.0-16.0); Immature Granulocytes # (auto) 0.02 K/uL (0.01-0.20); Immature Granulocytes % (auto) 0.4 %; Lymphocytes # (auto) 0.66 K/uL (1.2-3.4); Lymphocytes % (auto) 14.8 %; Mean Corpuscular Hemoglobin 31.6 pg (25.0-34.0); Mean Corpuscular Hgb Conc 32.9 g/dL (32.0-36.0); Mean Corpuscular Volume 96.2 fL (80.0-100.0); Mean Platelet Volume 11.1 fL (9.4-12.4); Monocytes # (auto) 0.33 K/uL (0.11-0.59); Monocytes % (auto) 7.4 %; Neutrophils # (auto) 3.19 K/uL (1.40-6.50); Neutrophils % (auto) 71.8 %; Platelet Count 180 K/uL (130-400); RDW Standard Deviation 45.1 fL (36.4-46.3); Red Blood Count 2.91 M/uL (4.20-5.40); White Blood Count 4.45 K/ul (4.8-10.8)
[2022-08-23] MEDS: INSULIN ASPART PER UNIT CHARGE SC SCH ×4 (08:19→20:46)
[2022-08-23] MEDS: ERTAPENEM SODIUM 1,000 MG in SYRINGE 0 ML IV SCH (08:56)
[2022-08-23] MEDS: CITALOPRAM 40 MG TAB PO SCH (08:57)
[2022-08-23] MEDS: FERROUS SULFATE 325 MG TAB PO SCH ×2 (08:57→20:47)
[2022-08-23] MEDS: ADVANCED PROBIOTIC 1250 MG CAPSULE PO SCH (08:57)
[2022-08-23] MEDS: SPIRONOLACTONE 12.5 MG TAB PO SCH (08:57)
[2022-08-23] MEDS: FUROSEMIDE 20 MG TAB PO SCH (08:57)
[2022-08-23] MEDS: PANTOprazole 40 MG TAB PO SCH ×2 (08:57→20:47)
[2022-08-23] MEDS: METOPROLOL SUCC 25MG EXT REL TAB PO SCH (08:57)
[2022-08-23] MEDS: ENOXAPARIN INJ 40 MG/0.4 ML SYR SQ SCH (08:58)
[2022-08-23] MEDS: CLOPIDOGREL BISULFATE 75 MG TAB PO SCH (08:58)
[2022-08-23] MEDS: MULTIVITAMIN TAB PO SCH (08:58)
[2022-08-23] MEDS: LANTUS PER UNIT CHARGE SC SCH (09:05)
--- NOTE | 2022-08-23 12:40 | Hospitalist Progress Note ---
Date of Service August 23, 2022 Assessment & Plan (1) Closed pelvic fracture: (2) Closed sacral fracture: (3) UTI (urinary tract infection): Plan: Patient is an 81-year-old female who is wheelchair bound at [facility] who tried to stand up and fell. She was found to have pelvic fractures and also urinary tract infection. Pelvic x-ray reviewed; acute left pubic ring fractures CT abdomen and pelvis reviewed; has a small to moderate presacral blood and small amount of extraperitoneal blood. Also found to have displaced fracture of left sacral ala. Also, nondisplaced fracture of S2 vertebral body. Urinalysis reviewed; consistent with UTI. Urine culture shows ESBL E. coli; possibly colonized given her past urine cultures. Orthopedic consulted; recommend none surgical management for the fractures. PT OT eval Pain control with Tylenol scheduled and oxycodone as needed. DC antibiotic and observe for now. (4) Elevated INR: (5) Acute blood loss anemia: Plan: Found to have supratherapeutic INR greater than 9.5. Status post 10 mg of IV vitamin K in the ED INR decreased to 1 CT abdomen and pelvis as above Labs reviewed; hemoglobin dropped from 10-8 Started on Lovenox subcu for DVT prophylaxis. Monitor CBC while on Lovenox. We will hold off on full dose anticoagulation for now. Discussed with her son regarding anticoagulation and risks of falls. As per the discussion, we will hold off on initiating full dose anticoagulation for now. Full dose anticoagulation can be restarted in the rehab if patient continues to progress well with bridging over to Coumadin. (6) KATHY (acute kidney injury): Plan: Likely prerenal due to blood loss Creatinine found to be elevated to 1.6. Down trended with IV hydration Avoid nephrotoxic agents (7) Esophagitis: Plan: CT abdomen and pelvis shows possible esophagitis. GI consulted; recommend Protonix twice daily No endoscopy for now. 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 Holding Coumadin as above. Started on Lovenox subcu History of chronic diastolic congestive heart failure: Continue metoprolol succinate. Holding Lasix for now. History of coronary artery disease, status post stent:Resume Plavix. Hypothyroidism: On Synthroid. Diabetes: Continue home Lantus. Placed on insulin sliding scale. Will follow blood sugars. Depression: Continue citalopram. Sick sinus syndrome: Status post permanent pacemaker. Ascending thoracic aorta aneurysm. Needs followup. Mild elevation of troponin. Mostly demand ischemia. EF of 65 to 70% with severely dilated left atrium. Deep venous thrombosis prophylaxis: Kiki Updated her son regarding the treatment plan. Answered questions/queries. Time spent evaluating patient, direct bedside care, chart review, placing orders, interpretation of diagnostic studies, discussion with consultants, patient, and family members, as well as other required patient management activities is 60 minutes Please note the above document was generated using voice recognition software. It may contain grammatical, syntax or spelling errors. Any formal questions or concerns about the content, text or information contained within the body of this dictation should be directly addressed to the provider for clarification Admission and Anticipated Discharge Date Admission Date: August 20, 2022 Subjective Patient seen and examined at bedside. She is comfortably lying in the bed; not in any distress. She reports that pain is well controlled. Review of Systems Review of Systems: All systems reviewed & are unremarkable except as noted in Subjective Physical Exam Physical Exam: Constitutional: Awake, oriented to self. Able to follow simple commands. Neck: trachea midline, no thyromegaly normal visual inspection Respiratory: normal respiratory effort, lungs clear to auscultation, no wheeze, rales, rhonchi. Normal insp/exp effort, no accessory muscle use Cardiovascular: Irregular, systolic murmur, no edema Vessels: no JVD or carotid bruit Chest: normal inspection of chest Abdomen: normal bowel sounds, soft, nontender, no hepatosplenomegaly Musculoskeletal: Pain on movement of left hip. Skin: no rashes, warm and dry normal turgor Neurologic: Grossly intact. Results & Data Results & Data Vital Signs (Past 12 Hours) Vital Signs Temp Pulse Pulse Resp BP Pulse Ox O2 Del Method 08/23/22 12:08 36.3 C L 84 18 112/76 97 Room Air 08/23/22 09:00 Room Air 08/23/22 07:24 82 08/23/22 03:26 36.3 C L 81 16 131/73 96 Room Air Laboratory Results Laboratory Results WBC 4.45 K/ul (4.8-10.8) L 08/23/22 05:52 RBC 2.91 M/uL (4.20-5.40) L 08/23/22 05:52 Hgb 9.2 g/dl (12.0-16.0) L 08/23/22 05:52 Hct 28.0 % (37.0-47.0) L 08/23/22 05:52 MCV 96.2 fL (80.0-100.0) 08/23/22 05:52 MCH 31.6 pg (25.0-34.0) 08/23/22 05:52 MCHC 32.9 g/dL (32.0-36.0) 08/23/22 05:52 RDW Std Deviation 45.1 fL (36.4-46.3) 08/23/22 05:52 RDW Coeff of Gaston 13.0 % (11.5-14.5) 08/23/22 05:52 Plt Count 180 K/uL (130-400) 08/23/22 05:52 MPV 11.1 fL (9.4-12.4) 08/23/22 05:52 Immature Gran % (Auto) 0.4 % 08/23/22 05:52 Neut % (Auto) 71.8 % 08/23/22 05:52 Lymph % (Auto) 14.8 % 08/23/22 05:52 Baca % (Auto) 7.4 % 08/23/22 05:52 Eos % (Auto) 4.5 % 08/23/22 05:52 Baso % (Auto) 1.1 % 08/23/22 05:52 Neut # (Auto) 3.19 K/uL (1.40-6.50) 08/23/22 05:52 Lymph # (Auto) 0.66 K/uL (1.2-3.4) L 08/23/22 05:52 Baca # (Auto) 0.33 K/uL (0.11-0.59) 08/23/22 05:52 Eos # (Auto) 0.20 K/uL (0-0.50) 08/23/22 05:52 Baso # (Auto) 0.05 K/uL (0-0.2) 08/23/22 05:52 Immature Gran # (Auto) 0.02 K/uL (0.01-0.20) 08/23/22 05:52 Polychromasia 1+ 08/21/22 05:54 Ovalocytes 1+ 08/21/22 05:54 PT 11.4 Seconds (9.0-12.0) 08/23/22 05:52 INR 1.0 (0.9-1.1) 08/23/22 05:52 APTT 49.8 Seconds (21.0-31.0) H* 08/20/22 18:23 PTT Ratio 1.8 08/20/22 18:23 Sodium 142 mmol/L (136-145) 08/23/22 05:52 Potassium 3.8 mmol/L (3.5-5.1) 08/23/22 05:52 Chloride 109 mmol/L (98-107) H 08/23/22 05:52 Carbon Dioxide 26 mmol/L (21-32) 08/23/22 05:52 Anion Gap 7 (3-11) 08/23/22 05:52 BUN 23 mg/dl (6-23) 08/23/22 05:52 Creatinine 1.05 mg/dl (0.6-1.2) 08/23/22 05:52 Est Cr Clr Drug Dosing 38.3 ml/min 08/23/22 05:52 Est GFR ( Amer) 56.9 ml/min 08/23/22 05:52 Est GFR (Non-Af Amer) 49.1 ml/min 08/23/22 05:52 BUN/Creatinine Ratio 21.9 (10-20) H 08/23/22 05:52 Glucose 85 mg/dl (70-99(Fasting)) 08/23/22 05:52 POC Glucose 112 mg/dl (70-99) H 08/23/22 11:55 Estimat Average Glucose 160 mg/dl 08/21/22 05:54 Hemoglobin A1c 7.2 % (4.5-5.6) H 08/21/22 05:54 Calcium 8.6 mg/dl (8.6-10.3) 08/23/22 05:52 Magnesium 1.9 mg/dl (1.7-2.4) 08/21/22 05:54 Total Bilirubin 0.5 mg/dl (0.2-1.0) 08/23/22 05:52 AST 19 U/L (13-39) 08/23/22 05:52 ALT 13 U/L (7-52) 08/23/22 05:52 Alkaline Phosphatase 62 U/L (34-104) 08/23/22 05:52 Troponin I High Sens 37.4 pg/ml (0-14) H 08/21/22 11:17 Total Protein 5.5 gm/dl (6.0-8.3) L 08/23/22 05:52 Albumin 3.0 gm/dl (3.4-5.0) L 08/23/22 05:52 Globulin 2.5 gm/dl (2.5-4.0) 08/23/22 05:52 Albumin/Globulin Ratio 1.2 (0.9-2) 08/23/22 05:52 Urine Color Yellow 08/20/22 21:40 Urine Appearance Clear (Clear) 08/20/22 21:40 Urine pH 5.0 (4.5-7.5) 08/20/22 21:40 Ur Specific Alexander 1.035 (1.000-1.030) H 08/20/22 21:40 Urine Protein Negative (Negative) 08/20/22 21:40 Urine Glucose (UA) Negative (Negative) 08/20/22 21:40 Urine Ketones Trace (Negative) H 08/20/22 21:40 Urine Blood 2+ (Negative) H 08/20/22 21:40 Urine Nitrite Negative (Negative) 08/20/22 21:40 Urine Bilirubin Negative (Negative) 08/20/22 21:40 Urine Urobilinogen Negative (Negative) 08/20/22 21:40 Ur Leukocyte Esterase Negative (Negative) 08/20/22 21:40 Urine WBC (Auto) 1-5 /hpf (0-5) 08/20/22 21:40 Urine RBC (Auto) 0-4 /hpf (0-4) 08/20/22 21:40 U Hyaline Cast (Auto) 1-5 /lpf (0-5) 08/20/22 21:40 U Epithel Cells (Auto) >30 /lpf (0-5) H 08/20/22 21:40 Urine Bacteria (Auto) 4+ (Negative) H 08/20/22 21:40 SARS-CoV-2, RNA, NAAT NEGATIVE (NEGATIVE) 08/20/22 22:55 Impressions Chest X-Ray 08/20/22 18:13 SINGLE VIEW CHEST CLINICAL HISTORY: Atypical chest pain. FINDINGS: An AP, portable, semierect chest radiograph is compared to study dated 06/30/2021. A 2-lead cardiac pacemaker is unchanged in position. The heart is enlarged noting atherosclerotic calcification of the thoracic aorta. The pulmonary vasculature is noncongested. Chronic interstitial thickening similar to previous. There is mild bibasilar scarring/atelectasis. The lungs and pleural spaces are otherwise clear. No pneumothorax is seen. The skeletal structures are osteopenic. The bony thorax is grossly intact. Have an postsurgical change is noted in the shoulders. IMPRESSION: 1. Cardiomegaly and cardiac pacemaker without radiographic evidence of congestive failure. 2. There is no airspace consolidation or large pleural effusion identified. ACT 112: Negative or not required by law. Electronically signed by: Luis Fernando Murdock M.D. 08/20/2022 11:[address] 08/20/22 18:58 Exam(s): CT C SPINE EXAM: CT Cervical Spine Without Intravenous Contrast CLINICAL HISTORY: Reason for exam: fall. TECHNIQUE: Axial computed tomography images of the cervical spine without intravenous contrast. CTDI is 24.53 mGy and DLP is 457.11 mGy-cm. Automated exposure control was utilized for the study. A dose lowering technique was utilized adhering to the principles of ALARA. COMPARISON: CT C-spine on 02/22/2019 FINDINGS: Bones: Ossification in the nuchal ligament is likely related to remote trauma. No acute fracture or bony lesion. Disc spaces: Degenerative changes of the spine. Minimal anterolisthesis of C3 on C4 and C7 on T1. Minimal retrolisthesis of C5 and C6. Soft tissues: Normal. Other: Atherosclerotic changes of the vasculature. Hypodense nodule in the left thyroid lobe which could be further evaluated with ultrasound if clinically indicated. IMPRESSION: No acute traumatic abnormality. Electronically signed by: Tha Russell M.D. 08/20/22 19:[address] 08/20/22 18:58 Exam(s): CT HEAD Without Contrast EXAM: CT Head Without Intravenous Contrast CLINICAL HISTORY: Reason for exam: fall. TECHNIQUE: Axial computed tomography images of the head/brain without intravenous contrast. CTDI is 35.65 mGy and DLP is 624.41 mGy-cm. Automated exposure control was utilized for the study. A dose lowering technique was utilized adhering to the principles of ALARA. COMPARISON: CT head on 11/21/2021 FINDINGS: Brain: No acute infarct or hemorrhage identified. No extra-axial fluid collection. No mass effect or midline shift. Scattered areas of hypoattenuation in the supratentorial white matter likely represent chronic small vessel ischemic changes. Ventricles and sulci: Prominence of the ventricles and sulci is likely secondary to cerebral volume loss. Bones: Hyperostosis frontalis interna. No bony lesion or acute fracture. Subcutaneous tissues: Normal. Sinuses: Normal. No air-fluid levels or mucosal thickening. Mastoid air cells: Normal. Orbits: Bilateral lens implants. Other: Atherosclerotic calcifications in the intracranial vasculature. IMPRESSION: 1. No acute intracranial abnormality. 2. Chronic small vessel ischemic changes and cerebral volume loss. Electronically signed by: Tha Russell M.D. 08/20/22 19:39 PM Pelvis X-Ray 08/20/22 19:00 SINGLE VIEW PELVIS CLINICAL HISTORY: Fall. Hip pain. FINDINGS: 2 AP supine pelvic radiographs are compared to study dated 02/18/2020. Correlation is made with pelvic CT scans dated 06/30/2021 and 08/20/2022. The skeletal structures are osteopenic. There is chronic posttraumatic deformity of the left proximal femur with intertrochanteric and intramedullary nails in place. There are acute left superior and inferior pubic ring fractures. No additional acute fracture is seen involving the hips or bony pelvis. Mild to moderate arthritic change and joint space narrowing seen in the hips. There is degenerative sclerosis of the sacroiliac joints. The overlying soft tissues are within normal limits. Heterotopic ossification is again seen medial to the right proximal femur. Tiny phleboliths are noted in the pelvis. Lumbosacral spondylosis is partially imaged. IMPRESSION: 1. Acute left pubic ring fractures. 2. No additional acute fracture is seen involving the hips or pelvis by x-ray. 3. A left sacral alar fracture seen on today's CT scan is not visualized by x- ray. Electronically signed by: Luis Fernando Murdock M.D. 08/20/2022 10:[address] 08/20/22 20:08 Exam(s): CT CHEST With Contrast IV Amt: 90ml OPTIRAY 320 EXAM: CT Chest With Intravenous Contrast CLINICAL HISTORY: Reason for exam: fall pelvic fx. TECHNIQUE: Axial computed tomography images of the chest with intravenous contrast. CTDI is 18.58 mGy and DLP is 646.53 mGy-cm. Automated exposure control was utilized for the study. A dose lowering technique was utilized adhering to the principles of ALARA. CONTRAST: Patient received 90ml OPTIRAY 320 of IV contrast COMPARISON: CT chest on 10/24/2020 FINDINGS: Lungs: Unremarkable. No mass. No consolidation. Pleural space: Unremarkable. No pneumothorax. No significant effusion. Heart: Prominent coronary artery, aortic valve, and mitral annular calcifications. Mild cardiomegaly. Left-sided pacemaker. No significant pericardial effusion. Mediastinum: Esophagus is distended with fluid and ingested material. Wall thickening of the esophagus may represent esophagitis. Bones/joints: Degenerative changes of the spine. Ankylosing spondylosis changes. No acute fracture. No dislocation. Soft tissues: Calcifications along the posterior paraspinal muscles. Vasculature: Atherosclerotic changes of the vasculature. Ectasia of the ascending thoracic aorta, measuring approximately 4.3 cm in diameter. No aortic dissection. Lymph nodes: Unremarkable. No enlarged lymph nodes. IMPRESSION: 1. Esophagus is distended with fluid and ingested material. Wall thickening of the esophagus may represent esophagitis. 2. Slightly increased ectasia of the ascending thoracic aorta measuring 4.3 cm. 3. No acute traumatic abnormality. Electronically signed by: Tha Russell M.D. 08/20/22 21:11 PM Abdomen/Pelvis CT 08/21/22 21:50 Exam(s): CT ABDOMEN + PELVIS With Contrast IV Amt: 90 ML OPTIRAY 320 EXAM: CT Abdomen and Pelvis With Intravenous Contrast CLINICAL HISTORY: Reason for exam: distended and tender abdomen. hematoma?. TECHNIQUE: Axial computed tomography images of the abdomen and pelvis with intravenous contrast. CTDI is 24.8 mGy and DLP is 1118.34 mGy-cm. Automated exposure control was utilized for the study. A dose lowering technique was utilized adhering to the principles of ALARA. CONTRAST: Patient received 90 ML OPTIRAY 320 of IV contrast COMPARISON: 6 09/2022. FINDINGS: Lung bases: Mild bilateral lower lobe atelectasis. Pleural space: Mild bilateral pleural effusions. Heart: Mild cardiomegaly with pacemaker leads in place. Mediastinum: Postoperative changes of the stomach with mild hiatal hernia versus dilatation of the esophagus. Fluid within the esophagus suggestive of reflux. ABDOMEN: Liver: Unremarkable. No mass. Gallbladder and bile ducts: Nonvisualized gallbladder suggestive of previous cholecystectomy. Distention of the biliary system with common bile duct measuring up to 9.8 mm at the pancreatic head. Pancreas: Diffuse atrophy of the pancreas. No ductal dilation. Spleen: Unremarkable. No splenomegaly. Adrenals: Unremarkable. No mass. Kidneys and ureters: Right lower renal pole simple cyst measuring 1.4 cm. No hydronephrosis. Stomach and bowel: Unremarkable. No obstruction. No mucosal thickening. PELVIS: Appendix: No findings to suggest acute appendicitis. Bladder: The urinary bladder is decompressed Via Chaudhry catheter. Reproductive: Unremarkable as visualized. Subperitoneal space: There is presacral fluid with high density suggestive of hemorrhagic component with hematoma. There is trace amount of fluid of high density within the pelvis, possibly hematoma. ABDOMEN and PELVIS: Intraperitoneal space: Unremarkable. No free air. No significant fluid collection. Bones/joints: There is a fracture involving the left inferior pubic ramus. Fracture of the superior pubic ramus near the pubic symphysis. Postoperative changes of the proximal left femur. Subtle cortical step- off through the S2 vertebral body extending to the sacral wing, cannot exclude a fracture. No dislocation. Soft tissues: Unremarkable. Vasculature: Atherosclerotic disease of aorta with no aneurysm or dissection. Lymph nodes: Unremarkable. No enlarged lymph nodes. IMPRESSION: 1. Fracture of the left superior and inferior pubic rami as described. Possible fracture involving the S2 vertebral body and possible sacral wing. 2. Prevertebral high density fluid with trace similar fluid within the pelvis, likely hematoma/hemorrhagic from trauma. 3. Right lower renal pole simple cyst measuring 1.4 cm, likely benign. No further imaging recommended for follow-up. Pancreatic scarring with status post cholecystectomy. Nonspecific biliary distention. Otherwise unremarkable abdominal viscera with no evidence of visceral injury. 4. Questionable hiatal hernia versus distal esophageal reflux with esophageal distention. Postoperative changes of the stomach. Clinical correlation recommended. Electronically signed by: Tamie Geller MD 08/21/22 23:03 PM
[2022-08-23] MEDS: MAGNESIUM OXIDE 400 MG TAB PO SCH (20:47)
[2022-08-24] MEDS: ACETAMINOPHEN 325 MG TAB PO SCH ×4 (00:02→17:28)
[2022-08-24] MEDS: LEVOTHYROXINE SODIUM 50 MCG TABLET PO SCH (05:36)
--- NOTE | 2022-08-24 06:01 | Electrocardiogram Report ---
Test Reason : Blood Pressure : / mmHG Vent. Rate : 097 BPM Atrial Rate : 084 BPM P-R Int : 000 ms QRS Dur : 144 ms QT Int : 400 ms P-R-T Axes : 000 -85 -34 degrees QTc Int : 508 ms Atrial fibrillation with premature ventricular or aberrantly conducted complexes Left axis deviation Right bundle branch block Abnormal ECG When compared with ECG of 21-AUG-2022 06:18, No significant change was found Confirmed by Levar Villalobos ([id number]) on 08/24/2022 6:00:36 AM Referred By: REFERRED SELF Confirmed By:Levar Villalobos
[2022-08-24 06:49] LABS: Basophils # (auto) 0.05 K/uL (0-0.2); Basophils % (auto) 1.3 %; Eosinophils # (auto) 0.15 K/uL (0-0.50); Hematocrit (blood only) 28.6 % (37.0-47.0); Hemoglobin 9.6 g/dl (12.0-16.0); Immature Granulocytes # (auto) 0.01 K/uL (0.01-0.20); Immature Granulocytes % (auto) 0.3 %; Lymphocytes # (auto) 0.47 K/uL (1.2-3.4); Lymphocytes % (auto) 12.6 %; Mean Corpuscular Hemoglobin 31.5 pg (25.0-34.0); Mean Corpuscular Hgb Conc 33.6 g/dL (32.0-36.0); Mean Corpuscular Volume 93.8 fL (80.0-100.0); Mean Platelet Volume 10.7 fL (9.4-12.4); Monocytes # (auto) 0.32 K/uL (0.11-0.59); Monocytes % (auto) 8.6 %; Neutrophils # (auto) 2.74 K/uL (1.40-6.50); Neutrophils % (auto) 73.2 %; Platelet Count 203 K/uL (130-400); RDW Coefficient of Variation 12.9 % (11.5-14.5); RDW Standard Deviation 43.7 fL (36.4-46.3); Red Blood Count 3.05 M/uL (4.20-5.40); White Blood Count 3.74 K/ul (4.8-10.8)
[2022-08-24 07:06] LABS: BUN Creatinine Ratio 22.5 (10-20); Calcium 8.5 mg/dl (8.6-10.3); Est GFR (African American) 58.9 ml/min; Est GFR (Non-African American) 50.8 ml/min; Potassium 3.8 mmol/L (3.5-5.1)
[2022-08-24 07:36] LABS: Prothrombin Time 11.4 Seconds (9.0-12.0)
[2022-08-24] MEDS: INSULIN ASPART PER UNIT CHARGE SC SCH ×4 (08:59→20:18)
[2022-08-24] MEDS: CLOPIDOGREL BISULFATE 75 MG TAB PO SCH (09:00)
[2022-08-24] MEDS: PANTOprazole 40 MG TAB PO SCH ×2 (09:01→20:19)
[2022-08-24] MEDS: MULTIVITAMIN TAB PO SCH (09:01)
[2022-08-24] MEDS: ADVANCED PROBIOTIC 1250 MG CAPSULE PO SCH (09:01)
[2022-08-24] MEDS: SPIRONOLACTONE 12.5 MG TAB PO SCH (09:01)
[2022-08-24] MEDS: FERROUS SULFATE 325 MG TAB PO SCH ×2 (09:01→20:18)
[2022-08-24] MEDS: METOPROLOL SUCC 25MG EXT REL TAB PO SCH (09:01)
[2022-08-24] MEDS: CITALOPRAM 40 MG TAB PO SCH (09:01)
[2022-08-24] MEDS: ENOXAPARIN INJ 40 MG/0.4 ML SYR SQ SCH (09:01)
[2022-08-24] MEDS: FUROSEMIDE 20 MG TAB PO SCH (09:01)
[2022-08-24] MEDS: LANTUS PER UNIT CHARGE SC SCH (09:03)
--- NOTE | 2022-08-24 11:17 | Hospitalist Progress Note ---
Date of Service August 24, 2022 Assessment & Plan (1) Closed pelvic fracture: (2) Closed sacral fracture: (3) UTI (urinary tract infection): Plan: Patient is an 81-year-old female who is wheelchair bound at [facility] who tried to stand up and fell. She was found to have pelvic fractures and also urinary tract infection. Pelvic x-ray reviewed; acute left pubic ring fractures CT abdomen and pelvis reviewed; has a small to moderate presacral blood and small amount of extraperitoneal blood. Also found to have displaced fracture of left sacral ala. Also, nondisplaced fracture of S2 vertebral body. Urinalysis reviewed; consistent with UTI. Urine culture shows ESBL E. coli; possibly colonized given her past urine cultures. Orthopedic consulted; recommend none surgical management for the fractures. PT OT eval Pain control with Tylenol scheduled and oxycodone as needed. No antibiotics; urine culture likely represents colonization. Monitor for fever. (4) Elevated INR: (5) Acute blood loss anemia: Plan: Found to have supratherapeutic INR greater than 9.5. Status post 10 mg of IV vitamin K in the ED INR decreased to 1 CT abdomen and pelvis as above Labs reviewed; hemoglobin dropped from 10-8 Started on Lovenox subcu for DVT prophylaxis. Monitor CBC while on Lovenox. We will hold off on full dose anticoagulation for now. Discussed with her son regarding anticoagulation and risks of falls. As per the discussion, we will hold off on initiating full dose anticoagulation for now. Full dose anticoagulation can be restarted in the rehab if patient continues to progress well with bridging over to Coumadin. (6) KATHY (acute kidney injury): Plan: Likely prerenal due to blood loss Creatinine found to be elevated to 1.6. Down trended with IV hydration Avoid nephrotoxic agents (7) Esophagitis: Plan: CT abdomen and pelvis shows possible esophagitis. GI consulted; recommend Protonix twice daily No endoscopy for now. QUILT STUFFER evaluation done; diet ordered as per recommendation Plan Other conditions; History of atrial fibrillation: Rate controlled with metoprolol succinate. Holding Coumadin as above. Started on Lovenox subcu History of chronic diastolic congestive heart failure: Continue metoprolol succinate. On Lasix History of coronary artery disease, status post stent:Resume Plavix. Hypothyroidism: On Synthroid. Diabetes: Continue home Lantus. Placed on insulin sliding scale. Will follow blood sugars. Depression: Continue citalopram. Sick sinus syndrome: Status post permanent pacemaker. Ascending thoracic aorta aneurysm. Needs followup. Mild elevation of troponin. Mostly demand ischemia. EF of 65 to 70% with severely dilated left atrium. Deep venous thrombosis prophylaxis: Lovenox Time spent evaluating patient, direct bedside care, chart review, placing orders, interpretation of diagnostic studies, discussion with consultants, patient, and family members, as well as other required patient management activities is 60 minutes Please note the above document was generated using voice recognition software. It may contain grammatical, syntax or spelling errors. Any formal questions or concerns about the content, text or information contained within the body of this dictation should be directly addressed to the provider for clarification Admission and Anticipated Discharge Date Admission Date: August 20, 2022 Subjective Patient seen and examined at bedside. She is lying in the bed comfortably; denies any distress. Afebrile, normotensive and saturating well on room air. Review of Systems Review of Systems: All systems reviewed & are unremarkable except as noted in Subjective Physical Exam Physical Exam: Constitutional: Awake, oriented to self. Able to follow simple commands. Neck: trachea midline, no thyromegaly normal visual inspection Respiratory: normal respiratory effort, lungs clear to auscultation, no wheeze, rales, rhonchi. Normal insp/exp effort, no accessory muscle use Cardiovascular: Irregular, systolic murmur, no edema Vessels: no JVD or carotid bruit Chest: normal inspection of chest Abdomen: normal bowel sounds, soft, nontender, no hepatosplenomegaly Musculoskeletal: Pain on movement of left hip. Skin: no rashes, warm and dry normal turgor Neurologic: Grossly intact. Results & Data Results & Data Vital Signs (Past 12 Hours) Vital Signs Temp Pulse Pulse Resp BP BP Pulse Ox 08/24/22 08:55 95 08/24/22 08:27 36.4 C L 77 17 118/65 91 08/24/22 07:10 82 08/24/22 04:06 36.4 C L 96 H 16 121/82 98 O2 Del Method 08/24/22 08:55 Room Air 08/24/22 08:27 Room Air 08/24/22 07:10 08/24/22 04:06 Room Air Laboratory Results Laboratory Results WBC 3.74 K/ul (4.8-10.8) L 08/24/22 06:14 RBC 3.05 M/uL (4.20-5.40) L 08/24/22 06:14 Hgb 9.6 g/dl (12.0-16.0) L 08/24/22 06:14 Hct 28.6 % (37.0-47.0) L 08/24/22 06:14 MCV 93.8 fL (80.0-100.0) 08/24/22 06:14 MCH 31.5 pg (25.0-34.0) 08/24/22 06:14 MCHC 33.6 g/dL (32.0-36.0) 08/24/22 06:14 RDW Std Deviation 43.7 fL (36.4-46.3) 08/24/22 06:14 RDW Coeff of [place] 12.9 % (11.5-14.5) 08/24/22 06:14 Plt Count 203 K/uL (130-400) 08/24/22 06:14 MPV 10.7 fL (9.4-12.4) 08/24/22 06:14 Immature Gran % (Auto) 0.3 % 08/24/22 06:14 Neut % (Auto) 73.2 % 08/24/22 06:14 Lymph % (Auto) 12.6 % 08/24/22 06:14 [place] % (Auto) 8.6 % 08/24/22 06:14 Eos % (Auto) 4.0 % 08/24/22 06:14 Baso % (Auto) 1.3 % 08/24/22 06:14 Neut # (Auto) 2.74 K/uL (1.40-6.50) 08/24/22 06:14 Lymph # (Auto) 0.47 K/uL (1.2-3.4) L 08/24/22 06:14 [place] # (Auto) 0.32 K/uL (0.11-0.59) 08/24/22 06:14 Eos # (Auto) 0.15 K/uL (0-0.50) 08/24/22 06:14 Baso # (Auto) 0.05 K/uL (0-0.2) 08/24/22 06:14 Immature Gran # (Auto) 0.01 K/uL (0.01-0.20) 08/24/22 06:14 Polychromasia 1+ 08/21/22 05:54 Ovalocytes 1+ 08/21/22 05:54 PT 11.4 Seconds (9.0-12.0) 08/24/22 06:14 INR 1.0 (0.9-1.1) 08/24/22 06:14 APTT 49.8 Seconds (21.0-31.0) H* 08/20/22 18:23 PTT Ratio 1.8 08/20/22 18:23 Sodium 143 mmol/L (136-145) 08/24/22 06:14 Potassium 3.8 mmol/L (3.5-5.1) 08/24/22 06:14 Chloride 108 mmol/L (98-107) H 08/24/22 06:14 Carbon Dioxide 28 mmol/L (21-32) 08/24/22 06:14 Anion Gap 7 (3-11) 08/24/22 06:14 BUN 23 mg/dl (6-23) 08/24/22 06:14 Creatinine 1.02 mg/dl (0.6-1.2) 08/24/22 06:14 Est Cr Clr Drug Dosing 36.0 ml/min 08/24/22 06:14 Est GFR ( Amer) 58.9 ml/min 08/24/22 06:14 Est GFR (Non-Af Amer) 50.8 ml/min 08/24/22 06:14 BUN/Creatinine Ratio 22.5 (10-20) H 08/24/22 06:14 Glucose 104 mg/dl (70-99(Fasting)) H 08/24/22 06:14 POC Glucose 127 mg/dl (70-99) H 08/24/22 07:41 Estimat Average Glucose 160 mg/dl 08/21/22 05:54 Hemoglobin A1c 7.2 % (4.5-5.6) H 08/21/22 05:54 Calcium 8.5 mg/dl (8.6-10.3) L 08/24/22 06:14 Magnesium 2.0 mg/dl (1.7-2.4) 08/24/22 06:14 Total Bilirubin 0.5 mg/dl (0.2-1.0) 08/23/22 05:52 AST 19 U/L (13-39) 08/23/22 05:52 ALT 13 U/L (7-52) 08/23/22 05:52 Alkaline Phosphatase 62 U/L (34-104) 08/23/22 05:52 Troponin I High Sens 37.4 pg/ml (0-14) H 08/21/22 11:17 Total Protein 5.5 gm/dl (6.0-8.3) L 08/23/22 05:52 Albumin 3.0 gm/dl (3.4-5.0) L 08/23/22 05:52 Globulin 2.5 gm/dl (2.5-4.0) 08/23/22 05:52 Albumin/Globulin Ratio 1.2 (0.9-2) 08/23/22 05:52 Urine Color Yellow 08/20/22 21:40 Urine Appearance Clear (Clear) 08/20/22 21:40 Urine pH 5.0 (4.5-7.5) 08/20/22 21:40 Ur Specific [place] 1.035 (1.000-1.030) H 08/20/22 21:40 Urine Protein Negative (Negative) 08/20/22 21:40 Urine Glucose (UA) Negative (Negative) 08/20/22 21:40 Urine Ketones Trace (Negative) H 08/20/22 21:40 Urine Blood 2+ (Negative) H 08/20/22 21:40 Urine Nitrite Negative (Negative) 08/20/22 21:40 Urine Bilirubin Negative (Negative) 08/20/22 21:40 Urine Urobilinogen Negative (Negative) 08/20/22 21:40 Ur Leukocyte Esterase Negative (Negative) 08/20/22 21:40 Urine WBC (Auto) 1-5 /hpf (0-5) 08/20/22 21:40 Urine RBC (Auto) 0-4 /hpf (0-4) 08/20/22 21:40 U Hyaline Cast (Auto) 1-5 /lpf (0-5) 08/20/22 21:40 U Epithel Cells (Auto) >30 /lpf (0-5) H 08/20/22 21:40 Urine Bacteria (Auto) 4+ (Negative) H 08/20/22 21:40 SARS-CoV-2, RNA, NAAT NEGATIVE (NEGATIVE) 08/20/22 22:55 Impressions Chest X-Ray 08/20/22 18:13 SINGLE VIEW CHEST CLINICAL HISTORY: Atypical chest pain. FINDINGS: An AP, portable, semierect chest radiograph is compared to study dated 06/30/2021. A 2-lead cardiac pacemaker is unchanged in position. The heart is enlarged noting atherosclerotic calcification of the thoracic aorta. The pulmonary vasculature is noncongested. Chronic interstitial thickening similar to previous. There is mild bibasilar scarring/atelectasis. The lungs and pleural spaces are otherwise clear. No pneumothorax is seen. The skeletal structures are osteopenic. The bony thorax is grossly intact. Have an postsurgical change is noted in the shoulders. IMPRESSION: 1. Cardiomegaly and cardiac pacemaker without radiographic evidence of congestive failure. 2. There is no airspace consolidation or large pleural effusion identified. ACT 112: Negative or not required by law. Electronically signed by: Luis Fernando Murdock M.D. 08/20/2022 11:[address] 08/20/22 18:58 Exam(s): CT C SPINE EXAM: CT Cervical Spine Without Intravenous Contrast CLINICAL HISTORY: Reason for exam: fall. TECHNIQUE: Axial computed tomography images of the cervical spine without intravenous contrast. CTDI is 24.53 mGy and DLP is 457.11 mGy-cm. Automated exposure control was utilized for the study. A dose lowering technique was utilized adhering to the principles of ALARA. COMPARISON: CT C-spine on 02/22/2019 FINDINGS: Bones: Ossification in the nuchal ligament is likely related to remote trauma. No acute fracture or bony lesion. Disc spaces: Degenerative changes of the spine. Minimal anterolisthesis of C3 on C4 and C7 on T1. Minimal retrolisthesis of C5 and C6. Soft tissues: Normal. Other: Atherosclerotic changes of the vasculature. Hypodense nodule in the left thyroid lobe which could be further evaluated with ultrasound if clinically indicated. IMPRESSION: No acute traumatic abnormality. Electronically signed by: Tha Russell M.D. 08/20/22 19:[address] 08/20/22 18:58 Exam(s): CT HEAD Without Contrast EXAM: CT Head Without Intravenous Contrast CLINICAL HISTORY: Reason for exam: fall. TECHNIQUE: Axial computed tomography images of the head/brain without intravenous contrast. CTDI is 35.65 mGy and DLP is 624.41 mGy-cm. Automated exposure control was utilized for the study. A dose lowering technique was utilized adhering to the principles of ALARA. COMPARISON: CT head on 11/21/2021 FINDINGS: Brain: No acute infarct or hemorrhage identified. No extra-axial fluid collection. No mass effect or midline shift. Scattered areas of hypoattenuation in the supratentorial white matter likely represent chronic small vessel ischemic changes. Ventricles and sulci: Prominence of the ventricles and sulci is likely secondary to cerebral volume loss. Bones: Hyperostosis frontalis interna. No bony lesion or acute fracture. Subcutaneous tissues: Normal. Sinuses: Normal. No air-fluid levels or mucosal thickening. Mastoid air cells: Normal. Orbits: Bilateral lens implants. Other: Atherosclerotic calcifications in the intracranial vasculature. IMPRESSION: 1. No acute intracranial abnormality. 2. Chronic small vessel ischemic changes and cerebral volume loss. Electronically signed by: Tha Russell M.D. 08/20/22 19:39 PM Pelvis X-Ray 08/20/22 19:00 SINGLE VIEW PELVIS CLINICAL HISTORY: Fall. Hip pain. FINDINGS: 2 AP supine pelvic radiographs are compared to study dated 02/18/2020. Correlation is made with pelvic CT scans dated 06/30/2021 and 08/20/2022. The skeletal structures are osteopenic. There is chronic posttraumatic deformity of the left proximal femur with intertrochanteric and intramedullary nails in place. There are acute left superior and inferior pubic ring fractures. No additional acute fracture is seen involving the hips or bony pelvis. Mild to moderate arthritic change and joint space narrowing seen in the hips. There is degenerative sclerosis of the sacroiliac joints. The overlying soft tissues are within normal limits. Heterotopic ossification is again seen medial to the right proximal femur. Tiny phleboliths are noted in the pelvis. Lumbosacral spondylosis is partially imaged. IMPRESSION: 1. Acute left pubic ring fractures. 2. No additional acute fracture is seen involving the hips or pelvis by x-ray. 3. A left sacral alar fracture seen on today's CT scan is not visualized by x- ray. Electronically signed by: Luis Fernando Murdock M.D. 08/20/2022 10:[address] 08/20/22 20:08 Exam(s): CT CHEST With Contrast IV Amt: 90ml OPTIRAY 320 EXAM: CT Chest With Intravenous Contrast CLINICAL HISTORY: Reason for exam: fall pelvic fx. TECHNIQUE: Axial computed tomography images of the chest with intravenous contrast. CTDI is 18.58 mGy and DLP is 646.53 mGy-cm. Automated exposure control was utilized for the study. A dose lowering technique was utilized adhering to the principles of ALARA. CONTRAST: Patient received 90ml OPTIRAY 320 of IV contrast COMPARISON: CT chest on 10/24/2020 FINDINGS: Lungs: Unremarkable. No mass. No consolidation. Pleural space: Unremarkable. No pneumothorax. No significant effusion. Heart: Prominent coronary artery, aortic valve, and mitral annular calcifications. Mild cardiomegaly. Left-sided pacemaker. No significant pericardial effusion. Mediastinum: Esophagus is distended with fluid and ingested material. Wall thickening of the esophagus may represent esophagitis. Bones/joints: Degenerative changes of the spine. Ankylosing spondylosis changes. No acute fracture. No dislocation. Soft tissues: Calcifications along the posterior paraspinal muscles. Vasculature: Atherosclerotic changes of the vasculature. Ectasia of the ascending thoracic aorta, measuring approximately 4.3 cm in diameter. No aortic dissection. Lymph nodes: Unremarkable. No enlarged lymph nodes. IMPRESSION: 1. Esophagus is distended with fluid and ingested material. Wall thickening of the esophagus may represent esophagitis. 2. Slightly increased ectasia of the ascending thoracic aorta measuring 4.3 cm. 3. No acute traumatic abnormality. Electronically signed by: Tha Russell M.D. 08/20/22 21:11 PM Abdomen/Pelvis CT 08/21/22 21:50 Exam(s): CT ABDOMEN + PELVIS With Contrast IV Amt: 90 ML OPTIRAY 320 EXAM: CT Abdomen and Pelvis With Intravenous Contrast CLINICAL HISTORY: Reason for exam: distended and tender abdomen. hematoma?. TECHNIQUE: Axial computed tomography images of the abdomen and pelvis with intravenous contrast. CTDI is 24.8 mGy and DLP is 1118.34 mGy-cm. Automated exposure control was utilized for the study. A dose lowering technique was utilized adhering to the principles of ALARA. CONTRAST: Patient received 90 ML OPTIRAY 320 of IV contrast COMPARISON: 09/2022. FINDINGS: Lung bases: Mild bilateral lower lobe atelectasis. Pleural space: Mild bilateral pleural effusions. Heart: Mild cardiomegaly with pacemaker leads in place. Mediastinum: Postoperative changes of the stomach with mild hiatal hernia versus dilatation of the esophagus. Fluid within the esophagus suggestive of reflux. ABDOMEN: Liver: Unremarkable. No mass. Gallbladder and bile ducts: Nonvisualized gallbladder suggestive of previous cholecystectomy. Distention of the biliary system with common bile duct measuring up to 9.8 mm at the pancreatic head. Pancreas: Diffuse atrophy of the pancreas. No ductal dilation. Spleen: Unremarkable. No splenomegaly. Adrenals: Unremarkable. No mass. Kidneys and ureters: Right lower renal pole simple cyst measuring 1.4 cm. No hydronephrosis. Stomach and bowel: Unremarkable. No obstruction. No mucosal thickening. PELVIS: Appendix: No findings to suggest acute appendicitis. Bladder: The urinary bladder is decompressed Via Chaudhry catheter. Reproductive: Unremarkable as visualized. Subperitoneal space: There is presacral fluid with high density suggestive of hemorrhagic component with hematoma. There is trace amount of fluid of high density within the pelvis, possibly hematoma. ABDOMEN and PELVIS: Intraperitoneal space: Unremarkable. No free air. No significant fluid collection. Bones/joints: There is a fracture involving the left inferior pubic ramus. Fracture of the superior pubic ramus near the pubic symphysis. Postoperative changes of the proximal left femur. Subtle cortical step- off through the S2 vertebral body extending to the sacral wing, cannot exclude a fracture. No dislocation. Soft tissues: Unremarkable. Vasculature: Atherosclerotic disease of aorta with no aneurysm or dissection. Lymph nodes: Unremarkable. No enlarged lymph nodes. IMPRESSION: 1. Fracture of the left superior and inferior pubic rami as described. Possible fracture involving the S2 vertebral body and possible sacral wing. 2. Prevertebral high density fluid with trace similar fluid within the pelvis, likely hematoma/hemorrhagic from trauma. 3. Right lower renal pole simple cyst measuring 1.4 cm, likely benign. No further imaging recommended for follow-up. Pancreatic scarring with status post cholecystectomy. Nonspecific biliary distention. Otherwise unremarkable abdominal viscera with no evidence of visceral injury. 4. Questionable hiatal hernia versus distal esophageal reflux with esophageal distention. Postoperative changes of the stomach. Clinical correlation recommended. Electronically signed by: Tamie Geller MD 08/21/22 23:03 PM
[2022-08-24] MEDS: oxyCODONE HCL IR 5 MG TAB (IMMEDIATE RELEASE) PO PRN ×2 (14:31→22:13)
[2022-08-24] MEDS: MAGNESIUM OXIDE 400 MG TAB PO SCH (20:19)
[2022-08-25] MEDS: ACETAMINOPHEN 325 MG TAB PO SCH ×4 (00:06→17:14)
[2022-08-25] MEDS: LEVOTHYROXINE SODIUM 50 MCG TABLET PO SCH (05:24)
[2022-08-25 06:58] LABS: Basophils # (auto) 0.04 K/uL (0-0.2); Basophils % (auto) 1.2 %; Eosinophils # (auto) 0.13 K/uL (0-0.50); Hematocrit (blood only) 27.1 % (37.0-47.0); Hemoglobin 8.9 g/dl (12.0-16.0); Immature Granulocytes # (auto) 0.01 K/uL (0.01-0.20); Immature Granulocytes % (auto) 0.3 %; Lymphocytes # (auto) 0.59 K/uL (1.2-3.4); Lymphocytes % (auto) 18.2 %; Mean Corpuscular Hemoglobin 30.8 pg (25.0-34.0); Mean Corpuscular Hgb Conc 32.8 g/dL (32.0-36.0); Mean Corpuscular Volume 93.8 fL (80.0-100.0); Mean Platelet Volume 10.7 fL (9.4-12.4); Monocytes # (auto) 0.32 K/uL (0.11-0.59); Monocytes % (auto) 9.9 %; Neutrophils # (auto) 2.15 K/uL (1.40-6.50); Neutrophils % (auto) 66.4 %; Platelet Count 226 K/uL (130-400); RDW Coefficient of Variation 13.1 % (11.5-14.5); RDW Standard Deviation 44.1 fL (36.4-46.3); Red Blood Count 2.89 M/uL (4.20-5.40); White Blood Count 3.24 K/ul (4.8-10.8)
[2022-08-25 07:15] LABS: BUN Creatinine Ratio 20.6 (10-20); Calcium 8.2 mg/dl (8.6-10.3); Creatinine Clr Calc Pharmacy 41.2 ml/min; Est GFR (African American) 62.6 ml/min; Magnesium 1.9 mg/dl (1.7-2.4); Potassium 3.5 mmol/L (3.5-5.1)
[2022-08-25] MEDS: INSULIN ASPART PER UNIT CHARGE SC SCH ×4 (08:24→19:57)
[2022-08-25] MEDS: PANTOprazole 40 MG TAB PO SCH ×2 (08:24→19:58)
[2022-08-25] MEDS: SPIRONOLACTONE 12.5 MG TAB PO SCH (08:24)
[2022-08-25] MEDS: FERROUS SULFATE 325 MG TAB PO SCH ×2 (08:24→19:57)
[2022-08-25] MEDS: CITALOPRAM 40 MG TAB PO SCH (08:24)
[2022-08-25] MEDS: ADVANCED PROBIOTIC 1250 MG CAPSULE PO SCH (08:24)
[2022-08-25] MEDS: MULTIVITAMIN TAB PO SCH (08:24)
[2022-08-25] MEDS: CLOPIDOGREL BISULFATE 75 MG TAB PO SCH (08:25)
[2022-08-25] MEDS: ENOXAPARIN INJ 40 MG/0.4 ML SYR SQ SCH (08:25)
[2022-08-25] MEDS: FUROSEMIDE 20 MG TAB PO SCH (08:25)
[2022-08-25] MEDS: METOPROLOL SUCC 25MG EXT REL TAB PO SCH (08:25)
[2022-08-25] MEDS: LANTUS PER UNIT CHARGE SC SCH (08:29)
[2022-08-25] MEDS: oxyCODONE HCL IR 5 MG TAB (IMMEDIATE RELEASE) PO PRN ×2 (08:31→19:28)
--- NOTE | 2022-08-25 12:21 | Hospitalist Progress Note ---
Date of Service August 25, 2022 Assessment & Plan (1) Closed pelvic fracture: (2) Closed sacral fracture: (3) UTI (urinary tract infection): Plan: Patient is an 81-year-old female who is wheelchair bound at [facility] who tried to stand up and fell. She was found to have pelvic fractures and also urinary tract infection. Pelvic x-ray reviewed; acute left pubic ring fractures CT abdomen and pelvis reviewed; has a small to moderate presacral blood and small amount of extraperitoneal blood. Also found to have displaced fracture of left sacral ala. Also, nondisplaced fracture of S2 vertebral body. Urinalysis reviewed; consistent with UTI. Urine culture shows ESBL E. coli; possibly colonized given her past urine cultures. Orthopedic consulted; recommend non-surgical management for the fractures. PT OT eval Pain control with Tylenol scheduled and oxycodone as needed. No antibiotics; urine culture likely represents colonization. Monitor for fever. (4) Elevated INR: (5) Acute blood loss anemia: Plan: Found to have supratherapeutic INR greater than 9.5. Status post 10 mg of IV vitamin K in the ED INR decreased to 1 CT abdomen and pelvis as above Labs reviewed; hemoglobin dropped from 10-8 Started on Lovenox subcu for DVT prophylaxis. Monitor CBC while on Lovenox. We will hold off on full dose anticoagulation for now. Discussed with her son(Ed) regarding anticoagulation and risks of falls. As per the discussion, we will hold off on initiating full dose anticoagulation for now. Full dose anticoagulation can be restarted in the rehab if patient continues to progress well with bridging over to Coumadin. (6) KTAHY (acute kidney injury): Plan: Likely prerenal due to blood loss Creatinine found to be elevated to 1.6. Down trended with IV hydration Avoid nephrotoxic agents (7) Esophagitis: Plan: CT abdomen and pelvis shows possible esophagitis. GI consulted; recommend Protonix twice daily No endoscopy for now. [employer]PERATIONS evaluation done; diet ordered as per recommendation Plan Other conditions; History of atrial fibrillation: Rate controlled with metoprolol succinate. Holding Coumadin as above. Started on Lovenox subcu History of chronic diastolic congestive heart failure: Continue metoprolol succinate. On Lasix History of coronary artery disease, status post stent:Resume Plavix. Hypothyroidism: On Synthroid. Diabetes: Continue home Lantus. Placed on insulin sliding scale. Will follow blood sugars. Depression: Continue citalopram. Sick sinus syndrome: Status post permanent pacemaker. Ascending thoracic aorta aneurysm. Needs followup. Mild elevation of troponin. Mostly demand ischemia. EF of 65 to 70% with severely dilated left atrium. Deep venous thrombosis prophylaxis: Lovenox Dispo; her sons want her to go to rehab. Patient medically stable for transfer. DC when rehab is available. Time spent evaluating patient, direct bedside care, chart review, placing orders, interpretation of diagnostic studies, discussion with consultants, patient, and family members, as well as other required patient management activities is 60 minutes Please note the above document was generated using voice recognition software. It may contain grammatical, syntax or spelling errors. Any formal questions or concerns about the content, text or information contained within the body of this dictation should be directly addressed to the provider for clarification Admission and Anticipated Discharge Date Admission Date: August 20, 2022 Subjective Patient seen and examined at bedside. She is comfortable lying on the bed; not in any distress. Review of Systems Review of Systems: All systems reviewed & are unremarkable except as noted in Subjective Physical Exam Physical Exam: Constitutional: Awake, oriented to self. Able to follow simple commands. Neck: trachea midline, no thyromegaly normal visual inspection Respiratory: normal respiratory effort, lungs clear to auscultation, no wheeze, rales, rhonchi. Normal insp/exp effort, no accessory muscle use Cardiovascular: Irregular, systolic murmur, no edema Vessels: no JVD or carotid bruit Chest: normal inspection of chest Abdomen: normal bowel sounds, soft, nontender, no hepatosplenomegaly Musculoskeletal: Pain on movement of left hip. Skin: no rashes, warm and dry normal turgor Neurologic: Grossly intact. Results & Data Results & Data Vital Signs (Past 12 Hours) Vital Signs Temp Pulse Pulse Resp BP Pulse Ox O2 Del Method 08/25/22 08:38 36.4 C L 89 18 121/71 100 Room Air 08/25/22 07:19 76 08/25/22 03:05 36.4 C L 72 20 117/70 98 Room Air Laboratory Results Laboratory Results WBC 3.24 K/ul (4.8-10.8) L 08/25/22 06:24 RBC 2.89 M/uL (4.20-5.40) L 08/25/22 06:24 Hgb 8.9 g/dl (12.0-16.0) L 08/25/22 06:24 Hct 27.1 % (37.0-47.0) L 08/25/22 06:24 MCV 93.8 fL (80.0-100.0) 08/25/22 06:24 MCH 30.8 pg (25.0-34.0) 08/25/22 06:24 MCHC 32.8 g/dL (32.0-36.0) 08/25/22 06:24 RDW Std Deviation 44.1 fL (36.4-46.3) 08/25/22 06:24 RDW Coeff of Gaston 13.1 % (11.5-14.5) 08/25/22 06:24 Plt Count 226 K/uL (130-400) 08/25/22 06:24 MPV 10.7 fL (9.4-12.4) 08/25/22 06:24 Immature Gran % (Auto) 0.3 % 08/25/22 06:24 Neut % (Auto) 66.4 % 08/25/22 06:24 Lymph % (Auto) 18.2 % 08/25/22 06:24 [place] % (Auto) 9.9 % 08/25/22 06:24 Eos % (Auto) 4.0 % 08/25/22 06:24 Baso % (Auto) 1.2 % 08/25/22 06:24 Neut # (Auto) 2.15 K/uL (1.40-6.50) 08/25/22 06:24 Lymph # (Auto) 0.59 K/uL (1.2-3.4) L 08/25/22 06:24 [place] # (Auto) 0.32 K/uL (0.11-0.59) 08/25/22 06:24 Eos # (Auto) 0.13 K/uL (0-0.50) 08/25/22 06:24 Baso # (Auto) 0.04 K/uL (0-0.2) 08/25/22 06:24 Immature Gran # (Auto) 0.01 K/uL (0.01-0.20) 08/25/22 06:24 Polychromasia 1+ 08/21/22 05:54 Ovalocytes 1+ 08/21/22 05:54 PT 11.4 Seconds (9.0-12.0) 08/24/22 06:14 INR 1.0 (0.9-1.1) 08/24/22 06:14 APTT 49.8 Seconds (21.0-31.0) H* 08/20/22 18:23 PTT Ratio 1.8 08/20/22 18:23 Sodium 140 mmol/L (136-145) 08/25/22 06:24 Potassium 3.5 mmol/L (3.5-5.1) 08/25/22 06:24 Chloride 106 mmol/L (98-107) 08/25/22 06:24 Carbon Dioxide 28 mmol/L (21-32) 08/25/22 06:24 Anion Gap 6 (3-11) 08/25/22 06:24 BUN 20 mg/dl (6-23) 08/25/22 06:24 Creatinine 0.97 mg/dl (0.6-1.2) 08/25/22 06:24 Est Cr Clr Drug Dosing 41.2 ml/min 08/25/22 06:24 Est GFR ( Amer) 62.6 ml/min 08/25/22 06:24 Est GFR (Non-Af Amer) 54.0 ml/min 08/25/22 06:24 BUN/Creatinine Ratio 20.6 (10-20) H 08/25/22 06:24 Glucose 82 mg/dl (70-99(Fasting)) 08/25/22 06:24 POC Glucose 159 mg/dl (70-99) H 08/25/22 11:40 Estimat Average Glucose 160 mg/dl 08/21/22 05:54 Hemoglobin A1c 7.2 % (4.5-5.6) H 08/21/22 05:54 Calcium 8.2 mg/dl (8.6-10.3) L 08/25/22 06:24 Magnesium 1.9 mg/dl (1.7-2.4) 08/25/22 06:24 Total Bilirubin 0.5 mg/dl (0.2-1.0) 08/23/22 05:52 AST 19 U/L (13-39) 08/23/22 05:52 ALT 13 U/L (7-52) 08/23/22 05:52 Alkaline Phosphatase 62 U/L (34-104) 08/23/22 05:52 Troponin I High Sens 37.4 pg/ml (0-14) H 08/21/22 11:17 Total Protein 5.5 gm/dl (6.0-8.3) L 08/23/22 05:52 Albumin 3.0 gm/dl (3.4-5.0) L 08/23/22 05:52 Globulin 2.5 gm/dl (2.5-4.0) 08/23/22 05:52 Albumin/Globulin Ratio 1.2 (0.9-2) 08/23/22 05:52 Urine Color Yellow 08/20/22 21:40 Urine Appearance Clear (Clear) 08/20/22 21:40 Urine pH 5.0 (4.5-7.5) 08/20/22 21:40 Ur Specific Gary 1.035 (1.000-1.030) H 08/20/22 21:40 Urine Protein Negative (Negative) 08/20/22 21:40 Urine Glucose (UA) Negative (Negative) 08/20/22 21:40 Urine Ketones Trace (Negative) H 08/20/22 21:40 Urine Blood 2+ (Negative) H 08/20/22 21:40 Urine Nitrite Negative (Negative) 08/20/22 21:40 Urine Bilirubin Negative (Negative) 08/20/22 21:40 Urine Urobilinogen Negative (Negative) 08/20/22 21:40 Ur Leukocyte Esterase Negative (Negative) 08/20/22 21:40 Urine WBC (Auto) 1-5 /hpf (0-5) 08/20/22 21:40 Urine RBC (Auto) 0-4 /hpf (0-4) 08/20/22 21:40 U Hyaline Cast (Auto) 1-5 /lpf (0-5) 08/20/22 21:40 U Epithel Cells (Auto) >30 /lpf (0-5) H 08/20/22 21:40 Urine Bacteria (Auto) 4+ (Negative) H 08/20/22 21:40 SARS-CoV-2, RNA, NAAT NEGATIVE (NEGATIVE) 08/20/22 22:55 Impressions Chest X-Ray 08/20/22 18:13 SINGLE VIEW CHEST CLINICAL HISTORY: Atypical chest pain. FINDINGS: An AP, portable, semierect chest radiograph is compared to study dated 06/30/2021. A 2-lead cardiac pacemaker is unchanged in position. The heart is enlarged noting atherosclerotic calcification of the thoracic aorta. The pulmonary vasculature is noncongested. Chronic interstitial thickening similar to previous. There is mild bibasilar scarring/atelectasis. The lungs and pleural spaces are otherwise clear. No pneumothorax is seen. The skeletal structures are osteopenic. The bony thorax is grossly intact. Have an postsurgical change is noted in the shoulders. IMPRESSION: 1. Cardiomegaly and cardiac pacemaker without radiographic evidence of congestive failure. 2. There is no airspace consolidation or large pleural effusion identified. ACT 112: Negative or not required by law. Electronically signed by: Luis Fernando Murdock M.D. 08/20/2022 11:[address] 08/20/22 18:58 Exam(s): CT C SPINE EXAM: CT Cervical Spine Without Intravenous Contrast CLINICAL HISTORY: Reason for exam: fall. TECHNIQUE: Axial computed tomography images of the cervical spine without intravenous contrast. CTDI is 24.53 mGy and DLP is 457.11 mGy-cm. Automated exposure control was utilized for the study. A dose lowering technique was utilized adhering to the principles of ALARA. COMPARISON: CT C-spine on 02/22/2019 FINDINGS: Bones: Ossification in the nuchal ligament is likely related to remote trauma. No acute fracture or bony lesion. Disc spaces: Degenerative changes of the spine. Minimal anterolisthesis of C3 on C4 and C7 on T1. Minimal retrolisthesis of C5 and C6. Soft tissues: Normal. Other: Atherosclerotic changes of the vasculature. Hypodense nodule in the left thyroid lobe which could be further evaluated with ultrasound if clinically indicated. IMPRESSION: No acute traumatic abnormality. Electronically signed by: Tha Russell M.D. 08/20/22 19:[address] 08/20/22 18:58 Exam(s): CT HEAD Without Contrast EXAM: CT Head Without Intravenous Contrast CLINICAL HISTORY: Reason for exam: fall. TECHNIQUE: Axial computed tomography images of the head/brain without intravenous contrast. CTDI is 35.65 mGy and DLP is 624.41 mGy-cm. Automated exposure control was utilized for the study. A dose lowering technique was utilized adhering to the principles of ALARA. COMPARISON: CT head on 11/21/2021 FINDINGS: Brain: No acute infarct or hemorrhage identified. No extra-axial fluid collection. No mass effect or midline shift. Scattered areas of hypoattenuation in the supratentorial white matter likely represent chronic small vessel ischemic changes. Ventricles and sulci: Prominence of the ventricles and sulci is likely secondary to cerebral volume loss. Bones: Hyperostosis frontalis interna. No bony lesion or acute fracture. Subcutaneous tissues: Normal. Sinuses: Normal. No air-fluid levels or mucosal thickening. Mastoid air cells: Normal. Orbits: Bilateral lens implants. Other: Atherosclerotic calcifications in the intracranial vasculature. IMPRESSION: 1. No acute intracranial abnormality. 2. Chronic small vessel ischemic changes and cerebral volume loss. Electronically signed by: Tha Russell M.D. 08/20/22 19:39 PM Pelvis X-Ray 08/20/22 19:00 SINGLE VIEW PELVIS CLINICAL HISTORY: Fall. Hip pain. FINDINGS: 2 AP supine pelvic radiographs are compared to study dated 02/18/2020. Correlation is made with pelvic CT scans dated 06/30/2021 and 08/20/2022. The skeletal structures are osteopenic. There is chronic posttraumatic deformity of the left proximal femur with intertrochanteric and intramedullary nails in place. There are acute left superior and inferior pubic ring fractures. No additional acute fracture is seen involving the hips or bony pelvis. Mild to moderate arthritic change and joint space narrowing seen in the hips. There is degenerative sclerosis of the sacroiliac joints. The overlying soft tissues are within normal limits. Heterotopic ossification is again seen medial to the right proximal femur. Tiny phleboliths are noted in the pelvis. Lumbosacral spondylosis is partially imaged. IMPRESSION: 1. Acute left pubic ring fractures. 2. No additional acute fracture is seen involving the hips or pelvis by x-ray. 3. A left sacral alar fracture seen on today's CT scan is not visualized by x- ray. Electronically signed by: Luis Fernando Murdock M.D. 08/20/2022 10:[address] 08/20/22 20:08 Exam(s): CT CHEST With Contrast IV Amt: 90ml OPTIRAY 320 EXAM: CT Chest With Intravenous Contrast CLINICAL HISTORY: Reason for exam: fall pelvic fx. TECHNIQUE: Axial computed tomography images of the chest with intravenous contrast. CTDI is 18.58 mGy and DLP is 646.53 mGy-cm. Automated exposure control was utilized for the study. A dose lowering technique was utilized adhering to the principles of ALARA. CONTRAST: Patient received 90ml OPTIRAY 320 of IV contrast COMPARISON: CT chest on 10/24/2020 FINDINGS: Lungs: Unremarkable. No mass. No consolidation. Pleural space: Unremarkable. No pneumothorax. No significant effusion. Heart: Prominent coronary artery, aortic valve, and mitral annular calcifications. Mild cardiomegaly. Left-sided pacemaker. No significant pericardial effusion. Mediastinum: Esophagus is distended with fluid and ingested material. Wall thickening of the esophagus may represent esophagitis. Bones/joints: Degenerative changes of the spine. Ankylosing spondylosis changes. No acute fracture. No dislocation. Soft tissues: Calcifications along the posterior paraspinal muscles. Vasculature: Atherosclerotic changes of the vasculature. Ectasia of the ascending thoracic aorta, measuring approximately 4.3 cm in diameter. No aortic dissection. Lymph nodes: Unremarkable. No enlarged lymph nodes. IMPRESSION: 1. Esophagus is distended with fluid and ingested material. Wall thickening of the esophagus may represent esophagitis. 2. Slightly increased ectasia of the ascending thoracic aorta measuring 4.3 cm. 3. No acute traumatic abnormality. Electronically signed by: Tha Russell M.D. 08/20/22 21:11 PM Abdomen/Pelvis CT 08/21/22 21:50 Exam(s): CT ABDOMEN + PELVIS With Contrast IV Amt: 90 ML OPTIRAY 320 EXAM: CT Abdomen and Pelvis With Intravenous Contrast CLINICAL HISTORY: Reason for exam: distended and tender abdomen. hematoma?. TECHNIQUE: Axial computed tomography images of the abdomen and pelvis with intravenous contrast. CTDI is 24.8 mGy and DLP is 1118.34 mGy-cm. Automated exposure control was utilized for the study. A dose lowering technique was utilized adhering to the principles of ALARA. CONTRAST: Patient received 90 ML OPTIRAY 320 of IV contrast COMPARISON: 09/2022. FINDINGS: Lung bases: Mild bilateral lower lobe atelectasis. Pleural space: Mild bilateral pleural effusions. Heart: Mild cardiomegaly with pacemaker leads in place. Mediastinum: Postoperative changes of the stomach with mild hiatal hernia versus dilatation of the esophagus. Fluid within the esophagus suggestive of reflux. ABDOMEN: Liver: Unremarkable. No mass. Gallbladder and bile ducts: Nonvisualized gallbladder suggestive of previous cholecystectomy. Distention of the biliary system with common bile duct measuring up to 9.8 mm at the pancreatic head. Pancreas: Diffuse atrophy of the pancreas. No ductal dilation. Spleen: Unremarkable. No splenomegaly. Adrenals: Unremarkable. No mass. Kidneys and ureters: Right lower renal pole simple cyst measuring 1.4 cm. No hydronephrosis. Stomach and bowel: Unremarkable. No obstruction. No mucosal thickening. PELVIS: Appendix: No findings to suggest acute appendicitis. Bladder: The urinary bladder is decompressed Via Chaudhry catheter. Reproductive: Unremarkable as visualized. Subperitoneal space: There is presacral fluid with high density suggestive of hemorrhagic component with hematoma. There is trace amount of fluid of high density within the pelvis, possibly hematoma. ABDOMEN and PELVIS: Intraperitoneal space: Unremarkable. No free air. No significant fluid collection. Bones/joints: There is a fracture involving the left inferior pubic ramus. Fracture of the superior pubic ramus near the pubic symphysis. Postoperative changes of the proximal left femur. Subtle cortical step- off through the S2 vertebral body extending to the sacral wing, cannot exclude a fracture. No dislocation. Soft tissues: Unremarkable. Vasculature: Atherosclerotic disease of aorta with no aneurysm or dissection. Lymph nodes: Unremarkable. No enlarged lymph nodes. IMPRESSION: 1. Fracture of the left superior and inferior pubic rami as described. Possible fracture involving the S2 vertebral body and possible sacral wing. 2. Prevertebral high density fluid with trace similar fluid within the pelvis, likely hematoma/hemorrhagic from trauma. 3. Right lower renal pole simple cyst measuring 1.4 cm, likely benign. No further imaging recommended for follow-up. Pancreatic scarring with status post cholecystectomy. Nonspecific biliary distention. Otherwise unremarkable abdominal viscera with no evidence of visceral injury. 4. Questionable hiatal hernia versus distal esophageal reflux with esophageal distention. Postoperative changes of the stomach. Clinical correlation recommended. Electronically signed by: Tamie Geller MD 08/21/22 23:03 PM
[2022-08-25] MEDS: MAGNESIUM OXIDE 400 MG TAB PO SCH (19:58)
[2022-08-26] MEDS: ACETAMINOPHEN 325 MG TAB PO SCH ×3 (00:13→12:41)
[2022-08-26] MEDS: MAGNESIUM SULFATE / D5W 1 GM/100 ML BAG IV SCH ×2 (00:13→02:17)
[2022-08-26] MEDS: LEVOTHYROXINE SODIUM 50 MCG TABLET PO SCH (06:09)
[2022-08-26 07:19] LABS: Basophils # (auto) 0.04 K/uL (0-0.2); Eosinophils # (auto) 0.09 K/uL (0-0.50); Eosinophils % (auto) 2.2 %; Hematocrit (blood only) 24.1 % (37.0-47.0); Hemoglobin 8.1 g/dl (12.0-16.0); Immature Granulocytes # (auto) 0.02 K/uL (0.01-0.20); Immature Granulocytes % (auto) 0.5 %; Lymphocytes # (auto) 0.52 K/uL (1.2-3.4); Lymphocytes % (auto) 12.5 %; Mean Corpuscular Hemoglobin 31.5 pg (25.0-34.0); Mean Corpuscular Hgb Conc 33.6 g/dL (32.0-36.0); Mean Corpuscular Volume 93.8 fL (80.0-100.0); Mean Platelet Volume 10.7 fL (9.4-12.4); Monocytes # (auto) 0.44 K/uL (0.11-0.59); Monocytes % (auto) 10.6 %; Neutrophils # (auto) 3.05 K/uL (1.40-6.50); Neutrophils % (auto) 73.2 %; Platelet Count 232 K/uL (130-400); RDW Coefficient of Variation 13.3 % (11.5-14.5); RDW Standard Deviation 44.6 fL (36.4-46.3); Red Blood Count 2.57 M/uL (4.20-5.40); White Blood Count 4.16 K/ul (4.8-10.8)
[2022-08-26 07:37] LABS: BUN Creatinine Ratio 19.6 (10-20); Calcium 8.2 mg/dl (8.6-10.3); Creatinine Clr Calc Pharmacy 39.4 ml/min; Est GFR (African American) 58.9 ml/min; Est GFR (Non-African American) 50.8 ml/min; Magnesium 2.4 mg/dl (1.7-2.4); Potassium 3.6 mmol/L (3.5-5.1)
[2022-08-26] MEDS: INSULIN ASPART PER UNIT CHARGE SC SCH ×2 (07:44→12:06)
[2022-08-26] MEDS: CLOPIDOGREL BISULFATE 75 MG TAB PO SCH (08:20)
[2022-08-26] MEDS: ENOXAPARIN INJ 40 MG/0.4 ML SYR SQ SCH (08:20)
[2022-08-26] MEDS: CITALOPRAM 40 MG TAB PO SCH (08:21)
[2022-08-26] MEDS: MULTIVITAMIN TAB PO SCH (08:21)
[2022-08-26] MEDS: SPIRONOLACTONE 12.5 MG TAB PO SCH (08:21)
[2022-08-26] MEDS: FERROUS SULFATE 325 MG TAB PO SCH (08:21)
[2022-08-26] MEDS: METOPROLOL SUCC 25MG EXT REL TAB PO SCH (08:22)
[2022-08-26] MEDS: PANTOprazole 40 MG TAB PO SCH (08:22)
[2022-08-26] MEDS: ADVANCED PROBIOTIC 1250 MG CAPSULE PO SCH (08:22)
[2022-08-26] MEDS: FUROSEMIDE 20 MG TAB PO SCH (08:22)
[2022-08-26] MEDS: oxyCODONE HCL IR 5 MG TAB (IMMEDIATE RELEASE) PO PRN (08:28)
[2022-08-26] MEDS: POLYETHYLENE (MIRALAX) 17 GM PACK PO PRN (08:28)
[2022-08-26] MEDS: LANTUS PER UNIT CHARGE SC SCH (08:28)
--- NOTE | 2022-08-26 11:08 | Hospitalist Progress Note ---
Date of Service August 26, 2022 Assessment & Plan (1) Closed pelvic fracture: (2) Closed sacral fracture: (3) UTI (urinary tract infection): Plan: Patient is an 81-year-old female who is wheelchair bound at [facility] who tried to stand up and fell. She was found to have pelvic fractures and also urinary tract infection. Pelvic x-ray reviewed; acute left pubic ring fractures CT abdomen and pelvis reviewed; has a small to moderate presacral blood and small amount of extraperitoneal blood. Also found to have displaced fracture of left sacral ala. Also, nondisplaced fracture of S2 vertebral body. Urinalysis reviewed; consistent with UTI. Urine culture shows ESBL E. coli; possibly colonized given her past urine cultures. Orthopedic consulted; recommend non-surgical management for the fractures. Continue PT OT Pain control with Tylenol scheduled and oxycodone as needed. No antibiotics; urine culture likely represents colonization. Monitor for fever. (4) Elevated INR: (5) Acute blood loss anemia: Plan: Found to have supratherapeutic INR greater than 9.5. Status post 10 mg of IV vitamin K in the ED INR decreased to 1 CT abdomen and pelvis as above Labs reviewed; hemoglobin dropped from 10-8 Started on Lovenox subcu for DVT prophylaxis. Monitor CBC while on Lovenox. We will hold off on full dose anticoagulation for now. Discussed with her son(Ed) regarding anticoagulation and risks of falls. As per the discussion, we will hold off on initiating full dose anticoagulation for now. Full dose anticoagulation can be restarted in the rehab if patient italo nues to progress well with bridging over to Coumadin. (6) KATHY (acute kidney injury): Plan: Likely prerenal due to blood loss Creatinine found to be elevated to 1.6. Down trended with IV hydration Avoid nephrotoxic agents (7) Esophagitis: Plan: CT abdomen and pelvis shows possible esophagitis. GI consulted; recommend Protonix twice daily No endoscopy for now. OFFICE TECHNICIAN evaluation done; diet ordered as per recommendation Plan Other conditions; History of atrial fibrillation: Rate controlled with metoprolol succinate. Holding Coumadin as above. Started on Lovenox subcu History of chronic diastolic congestive heart failure: Continue metoprolol succinate. On Lasix History of coronary artery disease, status post stent:Resume Plavix. Hypothyroidism: On Synthroid. Diabetes: Continue home Lantus. Placed on insulin sliding scale. Will follow blood sugars. Depression: Continue citalopram. Sick sinus syndrome: Status post permanent pacemaker. Ascending thoracic aorta aneurysm. Needs followup. Mild elevation of troponin. Mostly demand ischemia. EF of 65 to 70% with severely dilated left atrium. Deep venous thrombosis prophylaxis: Lovenox Dispo; her sons want her to go to rehab. Patient medically stable for transfer. DC when rehab is available. Time spent evaluating patient, direct bedside care, chart review, placing orders, interpretation of diagnostic studies, discussion with consultants, patient, and family members, as well as other required patient management activities is 60 minutes Please note the above document was generated using voice recognition software. It may contain grammatical, syntax or spelling errors. Any formal questions or concerns about the content, text or information contained within the body of this dictation should be directly addressed to the provider for clarification Admission and Anticipated Discharge Date Admission Date: August 20, 2022 Subjective Seen and examined at bedside. She is comfortable lying on the bed; not in distress. Afebrile and saturating well in RA. Review of Systems Review of Systems: All systems reviewed & are unremarkable except as noted in Subjective Physical Exam Physical Exam: Constitutional: Awake, oriented to self. Able to follow simple commands. Neck: trachea midline, no thyromegaly normal visual inspection Respiratory: normal respiratory effort, lungs clear to auscultation, no wheeze, rales, rhonchi. Normal insp/exp effort, no accessory muscle use Cardiovascular: Irregular, systolic murmur, no edema Vessels: no JVD or carotid bruit Chest: normal inspection of chest Abdomen: normal bowel sounds, soft, nontender, no hepatosplenomegaly Musculoskeletal: Pain on movement of left hip. Skin: no rashes, warm and dry normal turgor Neurologic: Grossly intact. Results & Data Results & Data Vital Signs (Past 12 Hours) Vital Signs Temp Pulse Pulse Resp BP BP Pulse Ox 08/26/22 08:24 36.4 C L 78 18 104/61 96 08/26/22 06:58 81 08/26/22 01:14 78 08/26/22 00:38 08/25/22 23:33 36.5 C 71 18 103/61 99 O2 Del Method 08/26/22 08:24 Room Air 08/26/22 06:58 08/26/22 01:14 08/26/22 00:38 Room Air 08/25/22 23:33 Room Air Laboratory Results Laboratory Results WBC 4.16 K/ul (4.8-10.8) L 08/26/22 06:53 RBC 2.57 M/uL (4.20-5.40) L 08/26/22 06:53 Hgb 8.1 g/dl (12.0-16.0) L 08/26/22 06:53 Hct 24.1 % (37.0-47.0) L 08/26/22 06:53 MCV 93.8 fL (80.0-100.0) 08/26/22 06:53 MCH 31.5 pg (25.0-34.0) 08/26/22 06:53 MCHC 33.6 g/dL (32.0-36.0) 08/26/22 06:53 RDW Std Deviation 44.6 fL (36.4-46.3) 08/26/22 06:53 RDW Coeff of [place] 13.3 % (11.5-14.5) 08/26/22 06:53 Plt Count 232 K/uL (130-400) 08/26/22 06:53 MPV 10.7 fL (9.4-12.4) 08/26/22 06:53 Immature Gran % (Auto) 0.5 % 08/26/22 06:53 Neut % (Auto) 73.2 % 08/26/22 06:53 Lymph % (Auto) 12.5 % 08/26/22 06:53 [place] % (Auto) 10.6 % 08/26/22 06:53 Eos % (Auto) 2.2 % 08/26/22 06:53 Baso % (Auto) 1.0 % 08/26/22 06:53 Neut # (Auto) 3.05 K/uL (1.40-6.50) 08/26/22 06:53 Lymph # (Auto) 0.52 K/uL (1.2-3.4) L 08/26/22 06:53 [place] # (Auto) 0.44 K/uL (0.11-0.59) 08/26/22 06:53 Eos # (Auto) 0.09 K/uL (0-0.50) 08/26/22 06:53 Baso # (Auto) 0.04 K/uL (0-0.2) 08/26/22 06:53 Immature Gran # (Auto) 0.02 K/uL (0.01-0.20) 08/26/22 06:53 Polychromasia 1+ 08/21/22 05:54 Ovalocytes 1+ 08/21/22 05:54 PT 11.4 Seconds (9.0-12.0) 08/24/22 06:14 INR 1.0 (0.9-1.1) 08/24/22 06:14 APTT 49.8 Seconds (21.0-31.0) H* 08/20/22 18:23 PTT Ratio 1.8 08/20/22 18:23 Sodium 139 mmol/L (136-145) 08/26/22 06:53 Potassium 3.6 mmol/L (3.5-5.1) 08/26/22 06:53 Chloride 105 mmol/L (98-107) 08/26/22 06:53 Carbon Dioxide 28 mmol/L (21-32) 08/26/22 06:53 Anion Gap 6 (3-11) 08/26/22 06:53 BUN 20 mg/dl (6-23) 08/26/22 06:53 Creatinine 1.02 mg/dl (0.6-1.2) 08/26/22 06:53 Est Cr Clr Drug Dosing 39.4 ml/min 08/26/22 06:53 Est GFR ( Amer) 58.9 ml/min 08/26/22 06:53 Est GFR (Non-Af Amer) 50.8 ml/min 08/26/22 06:53 BUN/Creatinine Ratio 19.6 (10-20) 08/26/22 06:53 Glucose 111 mg/dl (70-99(Fasting)) H 08/26/22 06:53 POC Glucose 111 mg/dl (70-99) H 08/26/22 07:41 Estimat Average Glucose 160 mg/dl 08/21/22 05:54 Hemoglobin A1c 7.2 % (4.5-5.6) H 08/21/22 05:54 Calcium 8.2 mg/dl (8.6-10.3) L 08/26/22 06:53 Magnesium 2.4 mg/dl (1.7-2.4) 08/26/22 06:53 Total Bilirubin 0.5 mg/dl (0.2-1.0) 08/23/22 05:52 AST 19 U/L (13-39) 08/23/22 05:52 ALT 13 U/L (7-52) 08/23/22 05:52 Alkaline Phosphatase 62 U/L (34-104) 08/23/22 05:52 Troponin I High Sens 37.4 pg/ml (0-14) H 08/21/22 11:17 Total Protein 5.5 gm/dl (6.0-8.3) L 08/23/22 05:52 Albumin 3.0 gm/dl (3.4-5.0) L 08/23/22 05:52 Globulin 2.5 gm/dl (2.5-4.0) 08/23/22 05:52 Albumin/Globulin Ratio 1.2 (0.9-2) 08/23/22 05:52 Urine Color Yellow 08/20/22 21:40 Urine Appearance Clear (Clear) 08/20/22 21:40 Urine pH 5.0 (4.5-7.5) 08/20/22 21:40 Ur Specific [place] 1.035 (1.000-1.030) H 08/20/22 21:40 Urine Protein Negative (Negative) 08/20/22 21:40 Urine Glucose (UA) Negative (Negative) 08/20/22 21:40 Urine Ketones Trace (Negative) H 08/20/22 21:40 Urine Blood 2+ (Negative) H 08/20/22 21:40 Urine Nitrite Negative (Negative) 08/20/22 21:40 Urine Bilirubin Negative (Negative) 08/20/22 21:40 Urine Urobilinogen Negative (Negative) 08/20/22 21:40 Ur Leukocyte Esterase Negative (Negative) 08/20/22 21:40 Urine WBC (Auto) 1-5 /hpf (0-5) 08/20/22 21:40 Urine RBC (Auto) 0-4 /hpf (0-4) 08/20/22 21:40 U Hyaline Cast (Auto) 1-5 /lpf (0-5) 08/20/22 21:40 U Epithel Cells (Auto) >30 /lpf (0-5) H 08/20/22 21:40 Urine Bacteria (Auto) 4+ (Negative) H 08/20/22 21:40 SARS-CoV-2, RNA, NAAT NEGATIVE (NEGATIVE) 08/20/22 22:55 Impressions Chest X-Ray 08/20/22 18:13 SINGLE VIEW CHEST CLINICAL HISTORY: Atypical chest pain. FINDINGS: An AP, portable, semierect chest radiograph is compared to study dated 06/30/2021. A 2-lead cardiac pacemaker is unchanged in position. The heart is enlarged noting atherosclerotic calcification of the thoracic aorta. The pulmonary vasculature is noncongested. Chronic interstitial thickening similar to previous. There is mild bibasilar scarring/atelectasis. The lungs and pleural spaces are otherwise clear. No pneumothorax is seen. The skeletal structures are osteopenic. The bony thorax is grossly intact. Have an postsurgical change is noted in the shoulders. IMPRESSION: 1. Cardiomegaly and cardiac pacemaker without radiographic evidence of congestive failure. 2. There is no airspace consolidation or large pleural effusion identified. ACT 112: Negative or not required by law. Electronically signed by: Luis Fernando Murdock M.D. 08/20/2022 11:[address] 08/20/22 18:58 Exam(s): CT C SPINE EXAM: CT Cervical Spine Without Intravenous Contrast CLINICAL HISTORY: Reason for exam: fall. TECHNIQUE: Axial computed tomography images of the cervical spine without intravenous contrast. CTDI is 24.53 mGy and DLP is 457.11 mGy-cm. Automated exposure control was utilized for the study. A dose lowering technique was utilized adhering to the principles of ALARA. COMPARISON: CT C-spine on 02/22/2019 FINDINGS: Bones: Ossification in the nuchal ligament is likely related to remote trauma. No acute fracture or bony lesion. Disc spaces: Degenerative changes of the spine. Minimal anterolisthesis of C3 on C4 and C7 on T1. Minimal retrolisthesis of C5 and C6. Soft tissues: Normal. Other: Atherosclerotic changes of the vasculature. Hypodense nodule in the left thyroid lobe which could be further evaluated with ultrasound if clinically indicated. IMPRESSION: No acute traumatic abnormality. Electronically signed by: Tha Russell M.D. 08/20/22 19:[address] 08/20/22 18:58 Exam(s): CT HEAD Without Contrast EXAM: CT Head Without Intravenous Contrast CLINICAL HISTORY: Reason for exam: fall. TECHNIQUE: Axial computed tomography images of the head/brain without intravenous contrast. CTDI is 35.65 mGy and DLP is 624.41 mGy-cm. Automated exposure control was utilized for the study. A dose lowering technique was utilized adhering to the principles of ALARA. COMPARISON: CT head on 11/21/2021 FINDINGS: Brain: No acute infarct or hemorrhage identified. No extra-axial fluid collection. No mass effect or midline shift. Scattered areas of hypoattenuation in the supratentorial white matter likely represent chronic small vessel ischemic changes. Ventricles and sulci: Prominence of the ventricles and sulci is likely secondary to cerebral volume loss. Bones: Hyperostosis frontalis interna. No bony lesion or acute fracture. Subcutaneous tissues: Normal. Sinuses: Normal. No air-fluid levels or mucosal thickening. Mastoid air cells: Normal. Orbits: Bilateral lens implants. Other: Atherosclerotic calcifications in the intracranial vasculature. IMPRESSION: 1. No acute intracranial abnormality. 2. Chronic small vessel ischemic changes and cerebral volume loss. Electronically signed by: Tha Russell M.D. 08/20/22 19:39 PM Pelvis X-Ray 08/20/22 19:00 SINGLE VIEW PELVIS CLINICAL HISTORY: Fall. Hip pain. FINDINGS: 2 AP supine pelvic radiographs are compared to study dated 02/18/2020. Correlation is made with pelvic CT scans dated 06/30/2021 and 08/20/2022. The skeletal structures are osteopenic. There is chronic posttraumatic deformity of the left proximal femur with intertrochanteric and intramedullary nails in place. There are acute left superior and inferior pubic ring fractures. No additional acute fracture is seen involving the hips or bony pelvis. Mild to moderate arthritic change and joint space narrowing seen in the hips. There is degenerative sclerosis of the sacroiliac joints. The overlying soft tissues are within normal limits. Heterotopic ossification is again seen medial to the right proximal femur. Tiny phleboliths are noted in the pelvis. Lumbosacral spondylosis is partially imaged. IMPRESSION: 1. Acute left pubic ring fractures. 2. No additional acute fracture is seen involving the hips or pelvis by x-ray. 3. A left sacral alar fracture seen on today's CT scan is not visualized by x- ray. Electronically signed by: Luis Fernando Murdock M.D. 08/20/2022 10:[address] 08/20/22 20:08 Exam(s): CT CHEST With Contrast IV Amt: 90ml OPTIRAY 320 EXAM: CT Chest With Intravenous Contrast CLINICAL HISTORY: Reason for exam: fall pelvic fx. TECHNIQUE: Axial computed tomography images of the chest with intravenous contrast. CTDI is 18.58 mGy and DLP is 646.53 mGy-cm. Automated exposure control was utilized for the study. A dose lowering technique was utilized adhering to the principles of ALARA. CONTRAST: Patient received 90ml OPTIRAY 320 of IV contrast COMPARISON: CT chest on 10/24/2020 FINDINGS: Lungs: Unremarkable. No mass. No consolidation. Pleural space: Unremarkable. No pneumothorax. No significant effusion. Heart: Prominent coronary artery, aortic valve, and mitral annular calcifications. Mild cardiomegaly. Left-sided pacemaker. No significant pericardial effusion. Mediastinum: Esophagus is distended with fluid and ingested material. Wall thickening of the esophagus may represent esophagitis. Bones/joints: Degenerative changes of the spine. Ankylosing spondylosis changes. No acute fracture. No dislocation. Soft tissues: Calcifications along the posterior paraspinal muscles. Vasculature: Atherosclerotic changes of the vasculature. Ectasia of the ascending thoracic aorta, measuring approximately 4.3 cm in diameter. No aortic dissection. Lymph nodes: Unremarkable. No enlarged lymph nodes. IMPRESSION: 1. Esophagus is distended with fluid and ingested material. Wall thickening of the esophagus may represent esophagitis. 2. Slightly increased ectasia of the ascending thoracic aorta measuring 4.3 cm. 3. No acute traumatic abnormality. Electronically signed by: Tha Russell M.D. 08/20/22 21:11 PM Abdomen/Pelvis CT 08/21/22 21:50 Exam(s): CT ABDOMEN + PELVIS With Contrast IV Amt: 90 ML OPTIRAY 320 EXAM: CT Abdomen and Pelvis With Intravenous Contrast CLINICAL HISTORY: Reason for exam: distended and tender abdomen. hematoma?. TECHNIQUE: Axial computed tomography images of the abdomen and pelvis with intravenous contrast. CTDI is 24.8 mGy and DLP is 1118.34 mGy-cm. Automated exposure control was utilized for the study. A dose lowering technique was utilized adhering to the principles of ALARA. CONTRAST: Patient received 90 ML OPTIRAY 320 of IV contrast COMPARISON: 6 09/2022. FINDINGS: Lung bases: Mild bilateral lower lobe atelectasis. Pleural space: Mild bilateral pleural effusions. Heart: Mild cardiomegaly with pacemaker leads in place. Mediastinum: Postoperative changes of the stomach with mild hiatal hernia versus dilatation of the esophagus. Fluid within the esophagus suggestive of reflux. ABDOMEN: Liver: Unremarkable. No mass. Gallbladder and bile ducts: Nonvisualized gallbladder suggestive of previous cholecystectomy. Distention of the biliary system with common bile duct measuring up to 9.8 mm at the pancreatic head. Pancreas: Diffuse atrophy of the pancreas. No ductal dilation. Spleen: Unremarkable. No splenomegaly. Adrenals: Unremarkable. No mass. Kidneys and ureters: Right lower renal pole simple cyst measuring 1.4 cm. No hydronephrosis. Stomach and bowel: Unremarkable. No obstruction. No mucosal thickening. PELVIS: Appendix: No findings to suggest acute appendicitis. Bladder: The urinary bladder is decompressed Via Chaudhry catheter. Reproductive: Unremarkable as visualized. Subperitoneal space: There is presacral fluid with high density suggestive of hemorrhagic component with hematoma. There is trace amount of fluid of high density within the pelvis, possibly hematoma. ABDOMEN and PELVIS: Intraperitoneal space: Unremarkable. No free air. No significant fluid collection. Bones/joints: There is a fracture involving the left inferior pubic ramus. Fracture of the superior pubic ramus near the pubic symphysis. Postoperative changes of the proximal left femur. Subtle cortical step- off through the S2 vertebral body extending to the sacral wing, cannot exclude a fracture. No dislocation. Soft tissues: Unremarkable. Vasculature: Atherosclerotic disease of aorta with no aneurysm or dissection. Lymph nodes: Unremarkable. No enlarged lymph nodes. IMPRESSION: 1. Fracture of the left superior and inferior pubic rami as described. Possible fracture involving the S2 vertebral body and possible sacral wing. 2. Prevertebral high density fluid with trace similar fluid within the pelvis, likely hematoma/hemorrhagic from trauma. 3. Right lower renal pole simple cyst measuring 1.4 cm, likely benign. No further imaging recommended for follow-up. Pancreatic scarring with status post cholecystectomy. Nonspecific biliary distention. Otherwise unremarkable abdominal viscera with no evidence of visceral injury. 4. Questionable hiatal hernia versus distal esophageal reflux with esophageal distention. Postoperative changes of the stomach. Clinical correlation recommended. Electronically signed by: Tamie Mischiu, MD 08/21/22 23:03 PM
--- NOTE | 2022-08-26 11:46 | Electrocardiogram Report ---
Test Reason : Blood Pressure : / mmHG Vent. Rate : 091 BPM Atrial Rate : 093 BPM P-R Int : 000 ms QRS Dur : 132 ms QT Int : 500 ms P-R-T Axes : 000 -72 -64 degrees QTc Int : 615 ms Poor data quality, interpretation may be adversely affected Atrial fibrillation Right bundle branch block Left anterior fascicular block Bifascicular block T wave abnormality, consider inferolateral ischemia Abnormal ECG When compared with ECG of 22-AUG-2022 06:36, T wave inversion more evident in Inferior leads T wave inversion now evident in Lateral leads QT has lengthened Confirmed by Jesús Waters ([id number]) on 08/26/2022 11:46:29 AM Referred By: REFERRED SELF Confirmed By:Marcus Waters
--- NOTE | 2022-08-26 14:14 | Discharge Summary ---
Date of Service August 26, 2022 Admission HPI Per Admitting Provider This is an 81-year-old female with past medical history significant for history of CAD s/p stent, chronic heart failure with preserved ejection fraction, history of persistent atrial fibrillation, on Coumadin, type 2 diabetes, hypertension, hyperlipidemia, sinus node dysfunction, status post permanent pacemaker, hypothyroidism, valvular heart disease, mild aortic stenosis and moderate mitral stenosis, history of MDS, history of iron deficiency anemia , chronic kidney disease stage III, hypothyroidism, currently lives at [facility], mostly wheelchair bound, comes with a fall. The son is in the room. The patient is alert and awake. She has pain with movement. Seems she fell yesterday and also today as per son, yesterday in the grass, seems today in the room. Son thinks she might have passed out, but he definitely does not know for sure. The patient thinks she did not pass out. She denies any dizziness or chest pain. She has some cough and she has some chronic shortness of breath. Denies any headache. Has chronic vision issues, very hard of hearing. Denies any runny nose, no sore throat, no difficulty swallowing. Denies any belly pain. Says bowels and bladder are moving okay. She was somewhat nauseous in the ER, but is okay now as per the son. As per the [facility], she just came to the room, which was mopped and patient doesn't walk but today , but she stood up with a cane and then she fell down, and brought in here and the current nursing staff does not know about fall yesterday. Otherwise, she was doing okay except she slept more than usual today. The patient is afebrile. Admission Exam Per Admitting Provider GENERAL: The patient is old, not in acute distress, somewhat hard of hearing. VITAL SIGNS: Temperature 36.8, pulse 82, respiratory rate 22, blood pressure 128/63, oxygen 96% on room air. HEENT: Pupils equal, round and reactive to light. Oral mucosa dry. NECK: No JVD, no neck masses. CARDIOVASCULAR: S1 and S2 heard. Systolic murmur heard in mitral area. Regular rate and rhythm. RESPIRATORY SYSTEM: Normal AP diameter. No accessory muscle use. No wheezing, no crackles. ABDOMEN: Soft, bowel sounds present, nontender, no distention. CENTRAL NERVOUS SYSTEM: Alert and oriented. Speech is clear. Obeys simple commands. Insight is okay. EXTREMITIES: Bilateral lower extremity edema present, right greater than left. No erythema seen. Principal Diagnosis (1) Closed pelvic fracture: (2) Closed sacral fracture: (3) UTI (urinary tract infection): Discharge Exam Constitutional: Awake, oriented to self. Able to follow simple commands. Neck: trachea midline, no thyromegaly normal visual inspection Respiratory: normal respiratory effort, lungs clear to auscultation, no wheeze, rales, rhonchi. Normal insp/exp effort, no accessory muscle use Cardiovascular: Irregular, systolic murmur, no edema Vessels: no JVD or carotid bruit Chest: normal inspection of chest Abdomen: normal bowel sounds, soft, nontender, no hepatosplenomegaly Musculoskeletal: Pain on movement of left hip. Skin: no rashes, warm and dry normal turgor Neurologic: Grossly intact. Discharge Data Allergies Allergy/AdvReac Type Severity Reaction Status Date / Time adhesive Allergy Unknown ADHESIVE Verified 02/20/22 09:19 TAPE Consultations 08/20/22 22:25 ED Decision to Admit Stat 08/21/22 08:00 Consult Gastroenterology Routine Consult Orthopedic Surgery Routine Ordered Studies 08/20/22 18:58 CT cervical spine wo con Stat CT head/brain wo con Stat 08/20/22 20:08 CT Abd and Pelvis [CT abd pelvis IV con only] Stat CT chest diagnostic w con Stat 08/21/22 21:50 CT Abd and Pelvis [CT abd pelvis IV con only] Stat Hospital Course (1) Closed pelvic fracture: (2) Closed sacral fracture: (3) UTI (urinary tract infection): Patient is an 81-year-old female who is wheelchair bound at [facility] who tried to stand up and fell. She was found to have pelvic fractures and also urinary tract infection. Pelvic x-ray reviewed; acute left pubic ring fractures CT abdomen and pelvis reviewed; has a small to moderate presacral blood and small amount of extraperitoneal blood. Also found to have displaced fracture of left sacral ala. Also, nondisplaced fracture of S2 vertebral body. Urinalysis reviewed; consistent with UTI. Urine culture shows ESBL E. coli; possibly colonized given her past urine cultures. Orthopedic consulted; recommend non-surgical management for the fractures. Continue PT OT Pain control with Tylenol scheduled and oxycodone as needed. No antibiotics; urine culture likely represents colonization. Monitor for fever. Patient discharged to subacute rehab as recommended by PT OT (4) Elevated INR: (5) Acute blood loss anemia: Found to have supratherapeutic INR greater than 9.5. Status post 10 mg of IV vitamin K in the ED INR decreased to 1 CT abdomen and pelvis as above Labs reviewed; hemoglobin dropped from 10-8 Started on Lovenox subcu for DVT prophylaxis. Monitor CBC while on Lovenox. We will hold off on full dose anticoagulation for now. At discharge, discussed with her son(Ed) regarding anticoagulation and risks of falls. As per the discussion, we will hold off on initiating full dose anticoagulation for now. Full dose anticoagulation can be restarted in the re hab if patient continues to progress well with bridging over to Coumadin. (6) KATHY (acute kidney injury): Likely prerenal due to blood loss Creatinine found to be elevated to 1.6. Down trended with IV hydration Avoid nephrotoxic agents Plan Time spent evaluating patient, direct bedside care, chart review, placing orders, interpretation of diagnostic studies, discussion with consultants, patient, and family members, as well as other required patient management activities is 60 minutes Please note the above document was generated using voice recognition software. It may contain grammatical, syntax or spelling errors. Any formal questions or concerns about the content, text or information contained within the body of this dictation should be directly addressed to the provider for clarification Total Time Total Time Spent Total Time Spent (In Minutes): 45 Discharge Plan Discharge Items Patient Disposition: Transfer [facility]irement Fac Reason For Visit: FALL, UTI Discharge Diagnosis: (1) Closed pelvic fracture: (2) Closed sacral fracture: (3) Elevated INR: (4) Acute blood loss anemia: Activity: Resume your previous activity Non-emergency contact: Primary Care Provider Call non-emergency contact if: you have any medication questions and your symptoms worsen Follow-up/Referrals: Chandra Espinosa MD [Surgeon] - Liza Dobbs DO [Outside Practitioners] - (Date & Time 08/29/2022 11:20 AM Provider Liza Dobbs DO Department [facility] - Diet: Regular Diet Texture: Easy to Chew Addtl Attending Provider Instructions: You were admitted to the hospital with a fall. You are found to have multiple fractures which are recommended to be conservatively managed by orthopedic. Continue physical therapy and Occupational Therapy at the rehab. You were found to have very high INR. You were given vitamin K for reversal. For the time being, your warfarin is stopped. You are started on Lovenox 40 mg once daily for DVT prophylaxis. Please discuss with your primary care doctor regarding long-term anticoagulation with warfarin due to the increased risks of falls and supratherapeutic INR. Pending Studies at Discharge: No Stand-Alone Forms: [facility] Skilled Items Patient informed of condition?: Yes DNR: Yes Discharge Level of Care: Skilled Communicable Disease: No Discharge Prognosis: Stable Lines: None Urinary Catheter: No Medications and DC Order Prescriptions: New acetaminophen 325 mg Tablet 650 mg PO Q6 Qty: 30 0RF enoxaparin [Lovenox] 40 mg/0.4 mL Syringe 40 mg subcut QAM Qty: 4 0RF Continued multivitamin [Daily-Nori] Tablet 1 tab PO DAILY Qty: 30 0RF citalopram 40 mg Tablet 40 mg PO QAM Qty: 30 0RF clopidogrel 75 mg Tablet 75 mg PO QAM Qty: 30 0RF spironolactone 25 mg Tablet 12.5 mg PO QAM Qty: 30 0RF Rx Instructions: 1/2 tablet dose methenamine hippurate 1 gram Tablet 1 g PO HS Qty: 30 0RF famotidine 20 mg Tablet 20 mg PO QAM Qty: 30 0RF levothyroxine [Synthroid] 50 mcg Tablet 50 mcg PO DAILYBB Qty: 30 0RF furosemide 20 mg Tablet 20 mg PO QAM Qty: 30 0RF metoprolol succinate 25 mg Tablet Extended Release 24 Hr 12.5 mg PO DAILY Qty: 30 0RF ferrous sulfate 325 mg (65 mg iron) Tablet,Delayed Release (Dr/Ec) 325 mg PO BID Qty: 60 0RF insulin glargine [Lantus Solostar U-100 Insulin] 100 unit/mL (3 mL) Insulin Pen 5 unit SC DAILY Qty: 10 0RF riboflavin (vitamin B2) 400 mg Tablet 400 mg PO HS Qty: 30 0RF magnesium oxide 400 mg magnesium Tablet 400 mg PO HS Qty: 60 0RF Discontinued warfarin 6 mg tablet 6 mg PO [id number] Rx Instructions: take in evening every day except fridays MEDICATION ON HOLD UNTIL Thursday08/22/22 FOR A TEST Culturelle 2 cap PO DAILY warfarin 3 mg Tablet 3 mg PO WK Rx Instructions: take in evening of FRIDAYS THIS MEDICATION IS ON HOLD UNTIL 08/22/22 FOR A TEST Discharge Orders: Discharge Order (Routine); Ordered 08/26/22 Ordered By: Robby Putnam/Other Patient Handouts: Managing Type 2 Diabetes Admission Data Admit Date/Time: 08/20/22 23:03 Attending Provider: Robby Beatty Admit Provider: Herminio Gil Primary Care Provider: [facility] Other Providers: Herminio Gil ; Sara Epps ; Osei Crook ; Mercedes Ivy ; Eneida George ; Daja Mulligan ; Linda Sheikh ; Woody Zepeda ; Kendell Simms ; Kavin Branham ; Anushka Noguera ; Kevan Ellis ; Carolyn Gillette ; Raquel Turner ; Roxanna Ferrari ; Velma Abbott ; Vicente Ross ; Vamsi Plummer ; Brad Gama ; Daniella Gifford ; Sarah Camarena Jr ; Chandra Espinosa ; [facility] ; [facility] Other Interventions: Discharge Summary Assessment (RN) Last Done: 08/26/22 13:17
== END 2022-08-26 16:40 | DRG 543 ==
LOC: ED 18:04 → 2N 23:03

== ENCOUNTER 2022-09-26 16:10 | Inpatient (IN) ==
--- NOTE | 2022-09-26 16:35 | ED Triage Note ---
Date of Service September 26, 2022 History of Present Illness This patient was briefly evaluated while in triage. An abbreviated physical exam was performed. This patient is a 81-year-old Female, patient at [facility], who presents to the ED with her son for evaluation of low blood pressure. Patient also had some recent lab work that was concerning for possible anemia, and was referred to the emergency department for further reevaluation. The patient denies any belly pain, chest pain or shortness of breath. Patient has not had a recent bowel movement, so she does not know if her stools have been black or tarry. The patient did have a recent fall, but the son reports that she has been able to get up to her wheelchair. Patient does complain of pain in her buttocks. Physical Exam CONSTITUTIONAL: Healthy and well nourished. Alert and oriented X 3. HEENT: No scleral icterus or conjunctival injection/pallor. NECK: Full active range of motion without discomfort. RESPIRATORY: Clear to auscultation bilaterally with no wheezing, crackles, rhonchi or stridor. CARDIOVASCULAR: Regular rate and rhythm with no murmurs, rubs or gallops. MUSCULOSKELETAL: Full range of motion of all joints without discomfort. INTEGUMENTARY: No rash or other significant dermatologic conditions noted. HEMATOLOGIC: No ecchymosis or petechiae. PSYCHIATRIC: Positive affect. NEUROLOGIC: No focal neurologic deficits noted. Initial orders for labs and / or imaging were placed and patient was placed in the waiting area until a bed is available. Please see further documentation for the full ED course.
--- NOTE | 2022-09-26 17:33 | XRay Report ---
XR chest 1V not portable CLINICAL HISTORY: weakness TECHNIQUE: Single frontal radiograph of the chest was obtained. Comparison: Comparison is made to chest radiograph 08/20/2022 FINDINGS: Dual lead pacemaker is seen. Cardiomegaly is noted. The aortic arch is calcified. The lungs are clear . No evidence of pleural effusion or pneumothorax. IMPRESSION: No acute chest disease. ACT 112: Negative or not required by law. Electronically signed by: Toñito Pappas M.D. 09/26/2022 5:32 PM
--- NOTE | 2022-09-26 17:36 | XRay Report ---
XR lumbar spine min 4V routine CLINICAL HISTORY: s/p fall TECHNIQUE: 5 views of the lumbar spine were obtained. Comparison: None available at the time of this dictation. FINDINGS: There is no evidence of an acute fracture. Degenerative changes are seen in the lumbar spine. The ali gnment is normal. Vascular calcifications are noted. IMPRESSION: Degenerative changes as above without acute fracture or subluxation. ACT 112: Negative or not required by law. Electronically signed by: oTñito Pappas M.D. 09/26/2022 5:34 PM
--- NOTE | 2022-09-26 17:45 | XRay Report ---
XR hip ELISEO 2v w pelvis CLINICAL HISTORY: s/p fall TECHNIQUE: 2 views of the bilateral hips and single frontal view of the pelvis were obtained. Comparison: None available at the time of this dictation. FINDINGS: There is no evidence of an acute fracture. Intramedullary misael is seen in the left femur with old heal ed fracture. Partial visualization of a total knee arthroplasty on the left. No soft tissue abnormali ty is seen. IMPRESSION: Degenerative changes and findings of old left femur fracture with no evidence of acute fracture. ACT 112: Negative or not required by law. Electronically signed by: Toñito Pappas M.D. 09/26/2022 5:43 PM
[2022-09-26 18:34] LABS: Alanine Aminotransferase 11 U/L (7-52); Albumin Globulin Ratio 1.1 (0.9-2); Albumin Level 3.9 gm/dl (3.4-5.0); Alkaline Phosphatase 181 U/L (34-104); Anion Gap 8 (3-11); BUN Creatinine Ratio 28.9 (10-20); Bilirubin,Total 0.6 mg/dl (0.2-1.0); Blood Urea Nitrogen 37 mg/dl (6-23); Carbon Dioxide 26 mmol/L (21-32); Chloride 105 mmol/L (98-107); Est GFR (African American) 44.8 ml/min; Est GFR (Non-African American) 38.6 ml/min; Globulin 3.4 gm/dl (2.5-4.0); Glucose 110 mg/dl (70-99(Fasting)); Sodium 139 mmol/L (136-145); Total Protein 7.3 gm/dl (6.0-8.3)
[2022-09-26 18:43] LABS: Troponin I High Sensitivity 21.3 pg/ml (0-14)
[2022-09-26] MEDS ORDERED: SODIUM CHLORIDE 0.9% 500 ML IV ONE (18:53)
--- NOTE | 2022-09-26 18:59 | Emergency Department Note ---
History of Present Illness General Chief complaint: Hypotension Stated complaint: LBP,DIZZY,LIGHT HEADED Time Seen by Provider: 09/26/22 18:33 Source: patient, family (Son who is at the bedside ), RN notes reviewed and old records reviewed (I have reviewed the med list from the residential) Mode of arrival: ambulatory Limitations: no limitations History of Present Illness This patient is a 81-year-old female was brought in by her son after she has been low blood pressure for about a week she fell about a month ago and is in a residential. She may have fallen in the last week again she complains of pain in her buttocks. She has been running low blood pressure her son thinks they have been holding her blood pressure medications but he is not sure. No fever. She hassystemic complaints with exception of pain in her buttocks/pelvic pain. She had blood work done yesterday and a hemoglobin 10.5 and a normal white count which checks on the low side. Her baseline hemoglobin before yesterday was 8.9. She may have some mild shortness of breath. No focal numbness or weakness. Home Medications Medication Instructions Recorded Confirmed Type acetaminophen 325 mg tablet 650 mg PO Q6 #30 tabs 08/22/22 Rx citalopram 40 mg tablet 40 mg PO QAM #30 tabs 08/22/22 Rx clopidogrel 75 mg tablet 75 mg PO QAM #30 tabs 08/22/22 Rx enoxaparin 40 mg/0.4 mL 40 mg (0.4 mL) subcut QAM #4 mL 08/22/22 Rx subcutaneous syringe (Lovenox) famotidine 20 mg tablet 20 mg PO QAM #30 tabs 08/22/22 Rx ferrous sulfate 325 mg (65 mg 325 mg PO BID #60 tabs 08/22/22 Rx iron) tablet,delayed release furosemide 20 mg tablet 20 mg PO QAM #30 tabs 08/22/22 Rx insulin glargine 100 unit/mL (3 5 unit (0.05 mL) SC DAILY #10 mL 08/22/22 Rx mL) subcutaneous pen (Lantus Solostar U-100 Insulin) levothyroxine 50 mcg tablet 50 mcg PO DAILYBB #30 tabs 08/22/22 Rx (Synthroid) magnesium oxide 400 mg PO HS #60 tabs 08/22/22 Rx methenamine hippurate 1 gram tablet 1 g PO HS #30 tabs 08/22/22 Rx metoprolol succinate 25 mg 12.5 mg PO DAILY #30 tabs 08/22/22 Rx tablet,extended release 24 hr multivitamin (Daily-Nori tablet) 1 tab PO DAILY #30 tabs 08/22/22 Rx riboflavin (vitamin B2) 400 mg 400 mg PO HS #30 tabs 08/22/22 Rx tablet spironolactone 25 mg tablet 12.5 mg PO QAM #30 tabs 08/22/22 Rx Allergies Allergy/AdvReac Type Severity Reaction Status Date / Time adhesive Allergy Unknown ADHESIVE Verified 02/20/22 09:19 TAPE Past Med/Surg History Medical History Acute blood loss anemia Acute confusion Acute UTI (urinary tract infection) Afib Anemia Aortic root dilatation 4.4 cm on echo 01/2019 Aortic root normal size on 02/2020 ECHO Asthma Atrial fibrillation Bifascicular block CAD (coronary artery disease) "1995 - PTCA and stenting of RCA 07/2011 - atherectomy and stenting RCA 12/2011- AZALIA to the mid LAD 2016-Cobra stent to mid LAD 2017-AZALIA to ostial diagonal Calculus of distal left ureter Chest pain Chronic heart failure with preserved ejection fraction (HFpEF) Closed fracture of left hip February 2020trochanteric nail placed by Ortho Congestive heart failure Depression DM type 2 (diabetes mellitus, type 2) DVT prophylaxis Dyslipidemia Encephalopathy, metabolic GERD (gastroesophageal reflux disease) Hypertension Hypotension Hypothyroidism Hypovolemic shock HOMERO (iron deficiency anemia) Macular degeneration MDS (myelodysplastic syndrome) Mild aortic stenosis Per 02/19/20 ECHO- AHSLEY 1.84 cm; AV max velocity 2.491 m/s; AV mean PG 13.6 mmHg Mitral stenosis Moderate per 02/2020 ECHO Pacemaker Sinus node dysfunction VRE (vancomycin resistant enterococcus) culture positive Surgical History History of angioplasty History of arthroscopy of knee History of arthroscopy of shoulder History of cholecystectomy History of gastric bypass History of incisional hernia repair History of partial hysterectomy History of tonsillectomy Family History Father Colorectal cancer Sister Lung cancer Diabetes Brother Diabetes Mother Diabetes Other KATHY (acute kidney injury) Acute blood loss anemia Social History Smoking Status: Never smoker Second Hand Exposure: No; Do You Dip or Chew Tobacco: No; Hx Alcohol Use: Yes Alcohol type: beer and wine Hx Substance Use: No Preferred Language: German Communication Ability: Effective Visual Impairment: No Limitations Hearing Ability: Normal Snack Bar Attendant Required: No Beliefs That Will Affect Care: None marital status: / Current Living Situation: Personal Care Facility Current Living Situation Comment: [facility] current occupational status: retired How many Children do You have: 3 Feels Safe at Home: Yes Assistive Devices: Cane, Denture - Upper, Denture - Lower, Glasses, Hearing Aid - Bilateral, Hospital Bed, Walker and Wheelchair Physical Exam Vital Signs Vital Signs - 24 hr 09/26/22 16:31 09/26/22 16:36 09/26/22 22:32 Temperature 36.7 C Temperature Source Temporal Artery Scan Pulse Rate 78 Pulse Rate from SpO2 Sensor Respiratory Rate 20 Respiratory Effort / Characteristics Non-Labored Spontaneous Respiratory Depth Normal Blood Pressure 94/56 L Blood Pressure [Left Arm] 94/66 L Blood Pressure Mean 68 Blood Pressure Mean [Left Arm] 75 Pulse Oximetry 99 Oxygen Delivery Method Room Air Room Air Sepsis Recent Fever Within 48 Hours No Sepsis New/Unexplained Change in Mental Status N/A Sepsis Action Taken by Nursing No Action Required 09/26/22 19:25 09/26/22 20:00 09/26/22 20:30 Temperature Temperature Source Pulse Rate 69 61 68 Pulse Rate from SpO2 Sensor 64 69 Respiratory Rate 22 17 26 H Respiratory Effort / Characteristics Respiratory Depth Blood Pressure Blood Pressure [Left Arm] Blood Pressure Mean Blood Pressure Mean [Left Arm] Pulse Oximetry 100 99 Oxygen Delivery Method Sepsis Recent Fever Within 48 Hours Sepsis New/Unexplained Change in Mental Status Sepsis Action Taken by Nursing 09/26/22 21:00 09/26/22 21:30 09/26/22 22:00 Temperature Temperature Source Pulse Rate 68 65 69 Pulse Rate from SpO2 Sensor 66 61 63 Respiratory Rate 15 23 12 Respiratory Effort / Characteristics Respiratory Depth Blood Pressure Blood Pressure [Left Arm] Blood Pressure Mean Blood Pressure Mean [Left Arm] Pulse Oximetry 100 95 99 Oxygen Delivery Method Sepsis Recent Fever Within 48 Hours Sepsis New/Unexplained Change in Mental Status Sepsis Action Taken by Nursing 09/26/22 22:30 09/26/22 23:00 09/26/22 23:30 Temperature Temperature Source Pulse Rate 69 79 75 Pulse Rate from SpO2 Sensor 70 Respiratory Rate 18 26 H 16 Respiratory Effort / Characteristics Respiratory Depth Blood Pressure 110/68 Blood Pressure [Left Arm] Blood Pressure Mean 82 Blood Pressure Mean [Left Arm] Pulse Oximetry 99 Oxygen Delivery Method Sepsis Recent Fever Within 48 Hours Sepsis New/Unexplained Change in Mental Status Sepsis Action Taken by Nursing 09/26/22 23:33 09/27/22 00:00 Temperature Temperature Source Pulse Rate 62 57 L Pulse Rate from SpO2 Sensor Respiratory Rate 14 15 Respiratory Effort / Characteristics Respiratory Depth Blood Pressure 101/67 106/53 L Blood Pressure [Left Arm] Blood Pressure Mean 78 70 Blood Pressure Mean [Left Arm] Pulse Oximetry Oxygen Delivery Method Sepsis Recent Fever Within 48 Hours Sepsis New/Unexplained Change in Mental Status Sepsis Action Taken by Nursing General: Well developed well nourished older female who appears in no acute distress, breathing comfortably on room air. Normal speech HEENT: Normal cephalic atraumatic. Pupils are equal round and reactive to light. Extraocular movements are intact. Oropharynx is pink with moist mucous membranes. No swelling of the mouth lips or tongue. Neck: Supple with a midline trachea. No meningeal signs or stiffness, no JVD or bruits. No Stridor. Chest: Clear to auscultation bilaterally. No wheezes or rhonchi. No increased work of breathing. Heart: Regular rate and rhythm without murmurs or gallops. Abdomen: Soft nontender, nondistended without rebound guarding or rigidity. Rectal: No Skin breakdown or lesions. Minimal redness. Extremities: No cyanosis clubbing or edema. No calf tenderness or assymetry Spine/Back. Non tender to palpation. No CVA tenderness Skin: Good turgor without rashes. Neurologic exam: Cranial nerves two through 12 are intact. Motor and sensation are intact and symmetrical throughout. Course Administered Medications Potassium Chloride/Sodium Chloride (Normal Saline W/20 Meq Kcl) 20 meq in 1,000 mls @ 80 mls/hr IV .[id number] ONE; Protocol Stop: 09/27/22 10:32 Last Admin: 09/26/22 23:41 Dose: 80 mls/hr Documented By: PRECIOUS Discontinued Medications Sodium Chloride (Nss) 500 mls @ 999 mls/hr IV .Q31M ONE Stop: 09/26/22 19:23 Last Infusion: 09/26/22 23:54 Dose: 0 mls/hr Documented By: Admin: 09/26/22 19:28 Dose: 999 mls/hr Documented By: ENRICO Ioversol (Optiray 320 100ml) 90 ml IV ONCE ONE Stop: 09/26/22 19:33 Last Admin: 09/26/22 19:32 Dose: 90 ml Documented By: CESARIO Lactulose (Lactulose Syrup 20 Gm/30 Ml Udc) 30 gm PO NOW STA Stop: 09/26/22 23:04 Last Admin: 09/26/22 23:41 Dose: 30 gm Documented By: PRECIOUS Polyethylene Glycol (Polyethylene (Miralax) 17 Gm Pack) 17 gm PO NOW STA Stop: 09/26/22 23:04 Last Admin: 09/26/22 23:41 Dose: 17 gm Documented By: PRECIOUS Senna/Docusate Sodium (Docusate Sodium/Senna 50/8.6mg Tab) 1 tab PO NOW STA Stop: 09/26/22 23:04 Last Admin: 09/26/22 23:41 Dose: 1 tab Documented By: PRECIOUS Medical Decision Making Differential Diagnosis Fall, anemia, hypotension, sepsis, dehydration, intra-abdominal process, electrolyte or metabolic abnormality Medical Records Attestation: I reviewed the patient's medical records. Home Medications Current Medication List: was personally reviewed by me Laboratory Data Attestation: I reviewed the patient's lab results. 09/26/22 17:45 Lab Results 09/26/22 09/26/22 09/26/22 Range/Units 17:45 19:15 19:15 WBC 3.59 L (4.8-10.8) K/ul RBC 3.31 L (4.20-5.40) M/uL Hgb 10.0 L (12.0-16.0) g/dl Hct 30.5 L (37.0-47.0) % MCV 92.1 (80.0-100.0) fL MCH 30.2 (25.0-34.0) pg MCHC 32.8 (32.0-36.0) g/dL RDW Std Deviation 48.3 H (36.4-46.3) fL RDW Coeff of Gaston 14.4 (11.5-14.5) % Plt Count 249 (130-400) K/uL MPV 10.8 (9.4-12.4) fL Immature Gran % (Auto) 0.6 % Neut % (Auto) 66.8 % Lymph % (Auto) 20.6 % Concho % (Auto) 9.2 % Eos % (Auto) 1.4 % Baso % (Auto) 1.4 % Neut # (Auto) 2.40 (1.40-6.50) K/uL Lymph # (Auto) 0.74 L (1.2-3.4) K/uL Concho # (Auto) 0.33 (0.11-0.59) K/uL Eos # (Auto) 0.05 (0-0.50) K/uL Baso # (Auto) 0.05 (0-0.2) K/uL Immature Gran # (Auto) 0.02 (0.01-0.20) K/uL PT 11.0 (9.0-12.0) Seconds INR 1.0 (0.9-1.1) APTT (21.0-31.0) Seconds PTT Ratio Sodium 139 (136-145) mmol/L Potassium TNP Chloride 105 (98-107) mmol/L Carbon Dioxide 26 (21-32) mmol/L Anion Gap 8 (3-11) BUN 37 H (6-23) mg/dl Creatinine 1.28 H (0.6-1.2) mg/dl Est Cr Clr Drug Dosing Not Reportable Est GFR ( Amer) 44.8 ml/min Est GFR (Non-Af Amer) 38.6 ml/min BUN/Creatinine Ratio 28.9 H (10-20) Glucose 110 H (70-99(Fasting)) mg/dl Lactate (0.4-2.0) mmol/L Calcium 9.0 (8.6-10.3) mg/dl Magnesium (1.7-2.4) mg/dl Total Bilirubin 0.6 (0.2-1.0) mg/dl AST TNP ALT 11 (7-52) U/L Alkaline Phosphatase 181 H (34-104) U/L Troponin I High Sens 21.3 H (0-14) pg/ml Total Protein 7.3 (6.0-8.3) gm/dl Albumin 3.9 (3.4-5.0) gm/dl Globulin 3.4 (2.5-4.0) gm/dl Albumin/Globulin Ratio 1.1 (0.9-2) TSH (0.300-4.500) uIu/ml 09/26/22 09/26/22 09/26/22 Range/Units 19:15 19:15 19:15 WBC (4.8-10.8) K/ul RBC (4.20-5.40) M/uL Hgb (12.0-16.0) g/dl Hct (37.0-47.0) % MCV (80.0-100.0) fL MCH (25.0-34.0) pg MCHC (32.0-36.0) g/dL RDW Std Deviation (36.4-46.3) fL RDW Coeff of Gaston (11.5-14.5) % Plt Count (130-400) K/uL MPV (9.4-12.4) fL Immature Gran % (Auto) % Neut % (Auto) % Lymph % (Auto) % Concho % (Auto) % Eos % (Auto) % Baso % (Auto) % Neut # (Auto) (1.40-6.50) K/uL Lymph # (Auto) (1.2-3.4) K/uL [place]cho # (Auto) (0.11-0.59) K/uL Eos # (Auto) (0-0.50) K/uL Baso # (Auto) (0-0.2) K/uL Immature Gran # (Auto) (0.01-0.20) K/uL PT (9.0-12.0) Seconds INR (0.9-1.1) APTT 26.3 (21.0-31.0) Seconds PTT Ratio 0.9 Sodium (136-145) mmol/L Potassium 3.3 L Chloride (98-107) mmol/L Carbon Dioxide (21-32) mmol/L Anion Gap (3-11) BUN (6-23) mg/dl Creatinine (0.6-1.2) mg/dl Est Cr Clr Drug Dosing Est GFR ( Amer) ml/min Est GFR (Non-Af Amer) ml/min BUN/Creatinine Ratio (10-20) Glucose (70-99(Fasting)) mg/dl Lactate (0.4-2.0) mmol/L Calcium (8.6-10.3) mg/dl Magnesium (1.7-2.4) mg/dl Total Bilirubin (0.2-1.0) mg/dl AST 15 ALT (7-52) U/L Alkaline Phosphatase (34-104) U/L Troponin I High Sens (0-14) pg/ml Total Protein (6.0-8.3) gm/dl Albumin (3.4-5.0) gm/dl Globulin (2.5-4.0) gm/dl Albumin/Globulin Ratio (0.9-2) TSH 1.992 (0.300-4.500) uIu/ml 09/26/22 09/26/22 Range/Units 19:16 22:37 WBC (4.8-10.8) K/ul RBC (4.20-5.40) M/uL Hgb (12.0-16.0) g/dl Hct (37.0-47.0) % MCV (80.0-100.0) fL MCH (25.0-34.0) pg MCHC (32.0-36.0) g/dL RDW Std Deviation (36.4-46.3) fL RDW Coeff of Gaston (11.5-14.5) % Plt Count (130-400) K/uL MPV (9.4-12.4) fL Immature Gran % (Auto) % Neut % (Auto) % Lymph % (Auto) % Concho % (Auto) % Eos % (Auto) % Baso % (Auto) % Neut # (Auto) (1.40-6.50) K/uL Lymph # (Auto) (1.2-3.4) K/uL Concho # (Auto) (0.11-0.59) K/uL Eos # (Auto) (0-0.50) K/uL Baso # (Auto) (0-0.2) K/uL Immature Gran # (Auto) (0.01-0.20) K/uL PT (9.0-12.0) Seconds INR (0.9-1.1) APTT (21.0-31.0) Seconds PTT Ratio Sodium (136-145) mmol/L Potassium Chloride (98-107) mmol/L Carbon Dioxide (21-32) mmol/L Anion Gap (3-11) BUN (6-23) mg/dl Creatinine (0.6-1.2) mg/dl Est Cr Clr Drug Dosing Est GFR ( Amer) ml/min Est GFR (Non-Af Amer) ml/min BUN/Creatinine Ratio (10-20) Glucose (70-99(Fasting)) mg/dl Lactate 0.8 (0.4-2.0) mmol/L Calcium (8.6-10.3) mg/dl Magnesium 2.7 H (1.7-2.4) mg/dl Total Bilirubin (0.2-1.0) mg/dl AST ALT (7-52) U/L Alkaline Phosphatase (34-104) U/L Troponin I High Sens 21.0 H (0-14) pg/ml Total Protein (6.0-8.3) gm/dl Albumin (3.4-5.0) gm/dl Globulin (2.5-4.0) gm/dl Albumin/Globulin Ratio (0.9-2) TSH (0.300-4.500) uIu/ml Imaging Data Attestation: I personally reviewed and interpreted this imaging study as follows: My Impression: Chest x-rayno acute infiltrate, failure, pneumothorax seen Radiologist's Impression: Hip/Pelvis X-Ray 09/26/22 16:35 XR hip ELISEO 2v w pelvis CLINICAL HISTORY: s/p fall TECHNIQUE: 2 views of the bilateral hips and single frontal view of the pelvis were obtained. Comparison: None available at the time of this dictation. FINDINGS: There is no evidence of an acute fracture. Intramedullary misael is seen in the left femur with old healed fracture. Partial visualization of a total knee arthroplasty on the left. No soft tissue abnormality is seen. IMPRESSION: Degenerative changes and findings of old left femur fracture with no evidence of acute fracture. ACT 112: Negative or not required by law. Electronically signed by: Toñito Pappas M.D. 09/26/2022 5:43 PM Lumbar Spine X-Ray 09/26/22 16:35 XR lumbar spine min 4V routine CLINICAL HISTORY: s/p fall TECHNIQUE: 5 views of the lumbar spine were obtained. Comparison: None available at the time of this dictation. FINDINGS: There is no evidence of an acute fracture. Degenerative changes are seen in the lumbar spine. The alignment is normal. Vascular calcifications are noted. IMPRESSION: Degenerative changes as above without acute fracture or subluxation. ACT 112: Negative or not required by law. Electronically signed by: Toñito Pappas M.D. 09/26/2022 5:34 PM Chest X-Ray 09/26/22 16:36 XR chest 1V not portable CLINICAL HISTORY: weakness TECHNIQUE: Single frontal radiograph of the chest was obtained. Comparison: Comparison is made to chest radiograph 08/20/2022 FINDINGS: Dual lead pacemaker is seen. Cardiomegaly is noted. The aortic arch is calcified. The lungs are clear. No evidence of pleural effusion or pneumothorax. IMPRESSION: No acute chest disease. ACT 112: Negative or not required by law. Electronically signed by: Toñito Pappas M.D. 09/26/2022 5:32 PM Abdomen/Pelvis CT 09/26/22 18:53 CR Exam(s): CT ABDOMEN + PELVIS With Contrast IV Amt: 90ml EXAM: CT Abdomen and Pelvis With Intravenous Contrast CLINICAL HISTORY: Reason for exam: fall, hypotension. TECHNIQUE: Axial computed tomography images of the abdomen and pelvis with intravenous contrast. CTDI is 16.24 mGy and DLP is 808.76 mGy-cm. Automated exposure control was utilized for the study. A dose lowering technique was utilized adhering to the principles of ALARA. CONTRAST: Patient received 90ml of IV contrast COMPARISON: CT abdomen/pelvis on 08/21/2022 FINDINGS: Lung bases: Please see accompanying CT chest. ABDOMEN: Liver: Unremarkable. No mass. Gallbladder and bile ducts: Prior cholecystectomy. Probable postcholecystectomy ductal ectasia. Pancreas: Atrophy of the pancreas. No ductal dilation. Spleen: Unremarkable. No splenomegaly. Adrenals: Unremarkable. No mass. Kidneys and ureters: Small hypodensities in the kidneys are too small to definitively characterize. No hydronephrosis. Stomach and bowel: Prominence of the wall of the rectum may be secondary to under distention versus proctitis. Gastric bypass changes. Evaluation of the stomach is limited by underdistention. No bowel obstruction or inflammation. PELVIS: Appendix: Normal appendix. Bladder: Mildly distended bladder. No significant bladder wall thickening or stone. Reproductive: Prior hysterectomy. ABDOMEN and PELVIS: Intraperitoneal space: Unremarkable. No free air. No significant fluid collection. Bones/joints: Subacute appearing fractures of the left superior and inferior pubic rami. Subacute fractures of the sacrum. Intramedullary misael is fixation of the left femur. Dystrophic ossifications along the proximal femurs. Degenerative changes of the spine. No dislocation. Soft tissues: Nonspecific small gas foci along the anterior abdominal wall. Question any recent procedure versus viscous perforation. Vasculature: Extensive vascular calcifications. No abdominal aortic aneurysm. Lymph nodes: Unremarkable. No enlarged lymph nodes. IMPRESSION: 1. Prominence of the wall of the rectum may be secondary to under distention versus proctitis. 2. Subacute appearing fractures of the left superior and inferior pubic rami. Subacute fractures of the sacrum. 3. Nonspecific small gas foci along the anterior abdominal wall. Question any recent procedure versus viscous perforation. Communications: Call Doctor Pneumoperitoneum, new or unexpected Electronically signed by: Tha Russell M.D. 09/26/22 20:[address] 09/26/22 18:53 Exam(s): CT CHEST With Contrast EXAM: CT Chest With Intravenous Contrast CLINICAL HISTORY: Reason for exam: fall, hypotension. TECHNIQUE: Axial computed tomography images of the chest with intravenous contrast. CTDI is 14.81 mGy and DLP is 544.95 mGy-cm. Automated exposure control was utilized for the study. A dose lowering technique was utilized adhering to the principles of ALARA. CONTRAST: 90 cc of Optiray 320 COMPARISON: CT chest on 08/20/2022 FINDINGS: Lungs: Unremarkable. No pulmonary embolus identified. Pleural space: Unremarkable. No pneumothorax. No significant effusion. Heart: Mild cardiomegaly. Coronary artery, aortic valve, and mitral annular calcifications. Left-sided pacemaker. No significant pericardial effusion. Mediastinum: Esophagus is distended with gas and ingested material. Thyroid: Small hypodense nodules in the thyroid to be further evaluated with ultrasound if clinically indicated. Bones/joints: Degenerative changes of the spine. No acute fracture. No dislocation. Soft tissues: Unremarkable. Vasculature: Atherosclerotic changes of the aorta. Mild ectasia of the ascending thoracic aorta measuring 4.0 cm in diameter. No aortic dissection. Lymph nodes: Unremarkable. No enlarged lymph nodes. Stomach and bowel: Probable gastric bypass changes. IMPRESSION: 1. No pulmonary embolus identified. 2. Atherosclerotic changes of the aorta. Mild ectasia of the ascending thoracic aorta measuring 4.0 cm in diameter. No aortic dissection. 3. Esophagus is distended with gas and ingested material. 4. No acute pulmonary parenchymal abnormality identified. 5. No definite acute fracture. Electronically signed by: Tha Russell M.D. 09/26/22 20:15 PM ECG Data Attestation: I personally reviewed and interpreted this ECG as follows: Indication: + weakness Rate (beats per minute): 73 Rhythm: + atrial fibrillation and + other (Poor baseline) ECG Intervals/blocks: + Right Bundle branch block, + Normal QT and + Normal [place] ECG [place]: + Normal ECG ST segments: + Normal ST segments ECG Findings: + Other (Nonspecific T wave) Comparison ECG Date: from (08/25/22) Change: no significant change MDM Narrative This patient is an 81-year-old female who comes in after feeling weak for about a week. She has had low blood pressure her son said that she has frequent falls she fell and had a pelvic fracture which she is still recuperating from over a month ago I did order CAT scans to rule out any new injury or bleeding internally. Hemoglobin done yesterday was 10.5 which is actually better than her baseline. Chest x-ray was clear and does not show congestive heart failure, pneumonia, pneumothorax. She was hydrated with an IV 500 cc normal saline bolus. EKG does not show any definite acute ischemic changes blood work was obtained and she was reassessed frequently. I talked to the patient and her son at length. Her hemoglobin is stable in the 10 range. She has no white count to suggest infection and no fever. I did look at her rectal area with a female nurse funeral home makeup artist and there is no skin breakdown is mildly red there is no abscess or crepitus or lesions. CAT scan shows a tiny foci of air near the abdominal wall. The radiologist called and notified me of these findings. I discussed the case at length with our on-call surgeon who is Dr. Leslie/Salvador. She has reviewed the CAT scan does not feel this is likely acute surgical process but agrees with observing the patient in the hospital she does not feel we need to give the patient antibiotics at this point. The patient has received IV fluids and probably is somewhat dehydrated. I did consult and discussed the case at length with Dr. Alarcon who will see the patient in ER for admission and further treatment and evaluation. Continuous cardiac catheterization technologist: Orders placed in EMR for continuous cardiac monitoring. Upon my evaluation patient was noted to be in normal sinus rhythm rate of 60 Impression & Plan Hypotension, Weakness, Fall, Buttock pain Discharge Plan Visit Data Chief Complaint: Hypotension Stated Complaint: LBP,DIZZY,LIGHT HEADED ED Provider: Zuhair Ybarra Discharge Problem: Hypotension, Weakness, Fall, Buttock pain Forms Stand Alone Forms: My [facility] Prescriptions Prescriptions: No Action acetaminophen 325 mg Tablet 650 mg PO Q6 Qty: 30 0RF enoxaparin [Lovenox] 40 mg/0.4 mL Syringe 40 mg subcut QAM Qty: 4 0RF multivitamin [Daily-Nori] Tablet 1 tab PO DAILY Qty: 30 0RF citalopram 40 mg Tablet 40 mg PO QAM Qty: 30 0RF clopidogrel 75 mg Tablet 75 mg PO QAM Qty: 30 0RF spironolactone 25 mg Tablet 12.5 mg PO QAM Qty: 30 0RF Rx Instructions: 1/2 tablet dose methenamine hippurate 1 gram Tablet 1 g PO HS Qty: 30 0RF famotidine 20 mg Tablet 20 mg PO QAM Qty: 30 0RF levothyroxine [Synthroid] 50 mcg Tablet 50 mcg PO DAILYBB Qty: 30 0RF furosemide 20 mg Tablet 20 mg PO QAM Qty: 30 0RF metoprolol succinate 25 mg Tablet Extended Release 24 Hr 12.5 mg PO DAILY Qty: 30 0RF ferrous sulfate 325 mg (65 mg iron) Tablet,Delayed Release (Dr/Ec) 325 mg PO BID Qty: 60 0RF insulin glargine [Lantus Solostar U-100 Insulin] 100 unit/mL (3 mL) Insulin Pen 5 unit SC DAILY Qty: 10 0RF riboflavin (vitamin B2) 400 mg Tablet 400 mg PO HS Qty: 30 0RF magnesium oxide 400 mg magnesium Tablet 400 mg PO HS Qty: 60 0RF Referrals Referrals: Aixa Sales [Primary Care Provider] - Hypotension Qualifiers: Hypotension type: unspecified hypotension type Qualified Code(s): I95.9 - Hypotension, unspecified Fall Qualifiers: Encounter type: initial encounter Qualified Code(s): W19.XXXA - Unspecified fall, initial encounter
[2022-09-26] MEDS ORDERED: OPTIRAY 320 100ml IV ONE (19:32)
[2022-09-26 19:55] LABS: Potassium 3.3 mmol/L (3.5-5.1)
[2022-09-26 20:03] LABS: Hematocrit (blood only) 30.5 % (37.0-47.0); Mean Corpuscular Hemoglobin 30.2 pg (25.0-34.0); Mean Corpuscular Hgb Conc 32.8 g/dL (32.0-36.0); Mean Corpuscular Volume 92.1 fL (80.0-100.0); Mean Platelet Volume 10.8 fL (9.4-12.4); Platelet Count 249 K/uL (130-400); RDW Coefficient of Variation 14.4 % (11.5-14.5); RDW Standard Deviation 48.3 fL (36.4-46.3); Red Blood Count 3.31 M/uL (4.20-5.40); White Blood Count 3.59 K/ul (4.8-10.8)
--- NOTE | 2022-09-26 20:16 | CT Scan Report ---
Exam(s): CT CHEST With Contrast EXAM: CT Chest With Intravenous Contrast CLINICAL HISTORY: Reason for exam: fall, hypotension. TECHNIQUE: Axial computed tomography images of the chest with intravenous contrast. CTDI is 14.81 mGy and DLP is 544.95 mGy-cm. Automated exposure control was utilized for the study. A dose lowering technique was utilized adhering to the principles of ALARA. CONTRAST: 90 cc of Optiray 320 COMPARISON: CT chest on 08/20/2022 FINDINGS: Lungs: Unremarkable. No pulmonary embolus identified. Pleural space: Unremarkable. No pneumothorax. No significant effusion. Heart: Mild cardiomegaly. Coronary artery, aortic valve, and mitral annular calcifications. Left-sided pacemaker. No significant pericardial effusion. Mediastinum: Esophagus is distended with gas and ingested material. Thyroid: Small hypodense nodules in the thyroid to be further evaluated with ultrasound if clinically indicated. Bones/joints: Degenerative changes of the spine. No acute fracture. No dislocation. Soft tissues: Unremarkable. Vasculature: Atherosclerotic changes of the aorta. Mild ectasia of the ascending thoracic aorta measuring 4.0 cm in diameter. No aortic dissection. Lymph nodes: Unremarkable. No enlarged lymph nodes. Stomach and bowel: Probable gastric bypass changes. IMPRESSION: 1. No pulmonary embolus identified. 2. Atherosclerotic changes of the aorta. Mild ectasia of the ascending thoracic aorta measuring 4.0 cm in diameter. No aortic dissection. 3. Esophagus is distended with gas and ingested material. 4. No acute pulmonary parenchymal abnormality identified. 5. No definite acute fracture. Electronically signed by: Tha Russell M.D. 09/26/22 20:15 PM
--- NOTE | 2022-09-26 20:16 | CT Scan Report ---
Exam(s): CT ABDOMEN + PELVIS With Contrast IV Amt: 90ml EXAM: CT Abdomen and Pelvis With Intravenous Contrast CLINICAL HISTORY: Reason for exam: fall, hypotension. TECHNIQUE: Axial computed tomography images of the abdomen and pelvis with intravenous contrast. CTDI is 16.24 mGy and DLP is 808.76 mGy-cm. Automated exposure control was utilized for the study. A dose lowering technique was utilized adhering to the principles of ALARA. CONTRAST: Patient received 90ml of IV contrast COMPARISON: CT abdomen/pelvis on 08/21/2022 FINDINGS: Lung bases: Please see accompanying CT chest. ABDOMEN: Liver: Unremarkable. No mass. Gallbladder and bile ducts: Prior cholecystectomy. Probable postcholecystectomy ductal ectasia. Pancreas: Atrophy of the pancreas. No ductal dilation. Spleen: Unremarkable. No splenomegaly. Adrenals: Unremarkable. No mass. Kidneys and ureters: Small hypodensities in the kidneys are too small to definitively characterize. No hydronephrosis. Stomach and bowel: Prominence of the wall of the rectum may be secondary to under distention versus proctitis. Gastric bypass changes. Evaluation of the stomach is limited by underdistention. No bowel obstruction or inflammation. PELVIS: Appendix: Normal appendix. Bladder: Mildly distended bladder. No significant bladder wall thickening or stone. Reproductive: Prior hysterectomy. ABDOMEN and PELVIS: Intraperitoneal space: Unremarkable. No free air. No significant fluid collection. Bones/joints: Subacute appearing fractures of the left superior and inferior pubic rami. Subacute fractures of the sacrum. Intramedullary misael is fixation of the left femur. Dystrophic ossifications along the proximal femurs. Degenerative changes of the spine. No dislocation. Soft tissues: Nonspecific small gas foci along the anterior abdominal wall. Question any recent procedure versus viscous perforation. Vasculature: Extensive vascular calcifications. No abdominal aortic aneurysm. Lymph nodes: Unremarkable. No enlarged lymph nodes. IMPRESSION: 1. Prominence of the wall of the rectum may be secondary to under distention versus proctitis. 2. Subacute appearing fractures of the left superior and inferior pubic rami. Subacute fractures of the sacrum. 3. Nonspecific small gas foci along the anterior abdominal wall. Question any recent procedure versus viscous perforation. Communications: Call Doctor Pneumoperitoneum, new or unexpected Electronically signed by: Tha Russell M.D. 09/26/22 20:14 PM
[2022-09-26 20:32] LABS: Basophils # (auto) 0.05 K/uL (0-0.2); Basophils % (auto) 1.4 %; Eosinophils # (auto) 0.05 K/uL (0-0.50); Eosinophils % (auto) 1.4 %; Immature Granulocytes # (auto) 0.02 K/uL (0.01-0.20); Immature Granulocytes % (auto) 0.6 %; Lymphocytes # (auto) 0.74 K/uL (1.2-3.4); Lymphocytes % (auto) 20.6 %; Monocytes # (auto) 0.33 K/uL (0.11-0.59); Monocytes % (auto) 9.2 %; Neutrophils % (auto) 66.8 %
[2022-09-26] MEDS ORDERED: NSS + 20MEQ KCL 20 MEQ/1,000 ML BAG IV ONE (22:03)
[2022-09-26 22:27] LABS: Partial Thromboplastin Ratio 0.9; Partial Thromboplastin Time 26.3 Seconds (21.0-31.0)
[2022-09-26 22:31] LABS: Magnesium 2.7 mg/dl (1.7-2.4)
[2022-09-26] MEDS ORDERED: DOCUSATE SODIUM/SENNA 50/8.6MG TAB PO STA (23:03)
[2022-09-26] MEDS ORDERED: POLYETHYLENE (MIRALAX) 17 GM PACK PO STA (23:03)
[2022-09-26] MEDS ORDERED: LACTULOSE SYRUP 20 GM/30 ML UDC PO STA (23:03)
--- NOTE | 2022-09-26 23:04 | History & Physical Report ---
Date of Service September 26, 2022 Assessment & Plan (1) Hypotension: Plan: Symptomatic hypotension ARF hx chronic diastolic heart failure, patient on the dry side SSS sp PPM, patient currently in A-fib rate controlled, off anticoagulation secondary to fall risk hx CAD status post stent valvular heart disease (mild aortic stenosis, moderate TR, severe mitral stenosis TTE, 2022) pulmonary hypertension, DEEPAK (off CPAP since 2009 after weight loss post gastric bypass as per records) Constipation Pneumoperitoneum on CT abdomen pelvis, patient without abdominal pain complaints DM 2 insulin requiring, reasonable control as of recent outpatient hemoglobin A1c of 7.2 last August 2022 Hypothyroidism, euthyroid as of today's TSH chronic anemia, hemoglobin at baseline myelodysplastic syndrome as per records Recurrent UTIs on chronic methenamine suppression Rx PCU Baseline UA, monitor creatinine and BP response to IVF Consider midodrine if hypotension persists Pacemaker interrogation Cardiology consult Re: Hypotension, follow-up evaluation as per son request Bowel regimen General surgery consultation Re: Pneumoperitoneum on CT (Okay for patient to eat for now as per discussion with Dr. Leslie of General Surgery.) Basal insulin, ISS BG goal [id number], carb count coverage DVT prophylaxis. Heparin subcu DNR Patient son requesting updates for providers. Mr. Kevan Palomo, contact #[phone]. Text document was generated using [employer] voice recognition software. It may contain grammatical or spelling errors. Kindly contact undersigned for clarification of any documentation item in question. Plan History of Present Illness Chief Complaint: Weakness, confusion Primary Care Provider: [facility] History obtained from patient, family, and records. Medical history significant for chronic diastolic heart failure (EF 70%, TTE 2022), SSS sp PPM/PAF off anticoagulation secondary to fall risk, CAD status post stent, valvular heart disease (mild aortic stenosis, moderate TR, severe mitral stenosis TTE, 2022), hypertension, hyperlipidemia, pulmonary hypertension, DEEPAK (off CPAP since 2009 after weight loss post gastric bypass as per records), DM 2 insulin requiring, hypothyroidism, chronic anemia (baseline hemoglobin 9-10), mood disorder myelodysplastic syndrome as per records, recurrent UTIs on chronic antibiotic suppression, hx ESBL/VRE as per records. Recent confinement last month secondary to close pelvic/sacral noted to be low with hematoma secondary to fall. Supratherapeutic INR on admission. No surgical management. ESBL E. coli UTI noted during confinement. No antibiotic treatment due to suspected colonization. Patient Coumadin stopped on discharged and has not been resumed. Last week, patient started complaining of pain on her behind the family and long term providers. Possible fall as per son account. Blood pressure noted to be low at long term. Lowest SBP of 50s. Patient denies headache, chest pain, SOB, abdominal pain. Admits to constipation. Admits to some dizziness described as lightheadedness. PCP discontinued metoprolol and spironolactone. Home furosemide continued. Midodrine initiation contemplated. Outpatient cardiology follow-up plan for pacemaker check as per son. Patient noted to be weaker today and slightly more confused than usual. SBP 90s upon arrival at the ER Patient looks much better after IV fluids as per son. 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, long term resident Allergies Allergy/AdvReac Type Severity Reaction Status Date / Time adhesive Allergy Unknown ADHESIVE Verified 02/20/22 09:19 TAPE Home Medications Medication Instructions Recorded Confirmed Type acetaminophen 325 mg tablet 650 mg PO Q6 #30 tabs 08/22/22 Rx citalopram 40 mg tablet 40 mg PO QAM #30 tabs 08/22/22 Rx clopidogrel 75 mg tablet 75 mg PO QAM #30 tabs 08/22/22 Rx enoxaparin 40 mg/0.4 mL 40 mg (0.4 mL) subcut QAM #4 mL 08/22/22 Rx subcutaneous syringe (Lovenox) famotidine 20 mg tablet 20 mg PO QAM #30 tabs 08/22/22 Rx ferrous sulfate 325 mg (65 mg 325 mg PO BID #60 tabs 08/22/22 Rx iron) tablet,delayed release furosemide 20 mg tablet 20 mg PO QAM #30 tabs 08/22/22 Rx insulin glargine 100 unit/mL (3 5 unit (0.05 mL) SC DAILY #10 mL 08/22/22 Rx mL) subcutaneous pen (Lantus Solostar U-100 Insulin) levothyroxine 50 mcg tablet 50 mcg PO DAILYBB #30 tabs 08/22/22 Rx (Synthroid) magnesium oxide 400 mg PO HS #60 tabs 08/22/22 Rx methenamine hippurate 1 gram tablet 1 g PO HS #30 tabs 08/22/22 Rx multivitamin (Daily-Nori tablet) 1 tab PO DAILY #30 tabs 08/22/22 Rx riboflavin (vitamin B2) 400 mg 400 mg PO HS #30 tabs 08/22/22 Rx tablet Past Med/Surg History Medical History Acute blood loss anemia Acute confusion Acute UTI (urinary tract infection) Afib Anemia Aortic root dilatation 4.4 cm on echo 01/2019 Aortic root normal size on 02/2020 ECHO Asthma Atrial fibrillation Bifascicular block CAD (coronary artery disease) "1995 - PTCA and stenting of RCA 07/2011 - atherectomy and stenting RCA 12/2011- AZALIA to the mid LAD 2016-Cobra stent to mid LAD 2017-AZALIA to ostial diagonal Calculus of distal left ureter Chest pain Chronic heart failure with preserved ejection fraction (HFpEF) Closed fracture of left hip February 2020trochanteric nail placed by Ortho Congestive heart failure Depression DM type 2 (diabetes mellitus, type 2) DVT prophylaxis Dyslipidemia Encephalopathy, metabolic Esophagitis GERD (gastroesophageal reflux disease) Hypertension Hypotension Hypothyroidism Hypovolemic shock HOMERO (iron deficiency anemia) Macular degeneration MDS (myelodysplastic syndrome) Mild aortic stenosis Per 02/19/20 ECHO- ASHLEY 1.84 cm; AV max velocity 2.491 m/s; AV mean PG 13.6 mmHg Mitral stenosis Moderate per 02/2020 ECHO Pacemaker Sinus node dysfunction VRE (vancomycin resistant enterococcus) culture positive Surgical History History of angioplasty History of arthroscopy of knee History of arthroscopy of shoulder History of cholecystectomy History of gastric bypass History of incisional hernia repair History of partial hysterectomy History of tonsillectomy Family History Father Colorectal cancer Sister Lung cancer Diabetes Brother Diabetes Mother Diabetes Other KATHY (acute kidney injury) Acute blood loss anemia Social History Smoking Status: Never smoker Second Hand Exposure: No; Do You Dip or Chew Tobacco: No; Hx Alcohol Use: Yes Alcohol type: beer, wine and hard liquor Hx Substance Use: No Preferred Language: Citizen Of [place] Communication Ability: Effective Visual Impairment: No Limitations Hearing Ability: Normal [employer] Installer Required: No Beliefs That Will Affect Care: None marital status: / Current Living Situation: [facility] Current Living Situation Comment: [facility] current occupational status: retired How many Children do You have: 3 Other Information That Helps Us Care for You: No Feels Safe at Home: Yes Safety Concerns: Feels Safe At This Time Assistive Devices: Cane, Walker and Wheelchair Review of Systems Review of Systems: As per HPI, all other systems reviewed and negative Physical Exam Physical Exam: GENERAL: Pleasant, oriented to day, slightly hard of hearing, no respiratory distress SKIN: Pallor, warm HEENT: Pale palpebral conjunctivae, no ptosis, dry buccal mucosa NECK : Supple, no tenderness CHEST : Decreased breath sounds, no tenderness HEART : Irregular, systolic murmur over second right intercostal space ABDOMEN: Some distention, nontender EXTREMITIES : Minimal LE swelling, no LE tenderness NEUROLOGIC : Coherent, no facial asymmetry, mild hearing impairment, gait and stance not assessed Results & Data Results & Data Vital Signs (Past 12 Hours) Vital Signs Temp Pulse Resp BP BP Pulse Ox O2 Del Method 09/26/22 22:30 69 18 110/68 99 09/26/22 22:00 69 12 99 09/26/22 21:30 65 23 95 09/26/22 21:00 68 15 100 09/26/22 20:30 68 26 H 99 09/26/22 20:00 61 17 100 09/26/22 19:25 69 22 09/26/22 22:32 94/66 L 09/26/22 16:36 Room Air 09/26/22 16:31 36.7 C 78 20 94/56 L 99 Room Air Laboratory Results Laboratory Results WBC 3.59 K/ul (4.8-10.8) L 09/26/22 19:15 RBC 3.31 M/uL (4.20-5.40) L 09/26/22 19:15 Hgb 10.0 g/dl (12.0-16.0) L 09/26/22 19:15 Hct 30.5 % (37.0-47.0) L 09/26/22 19:15 MCV 92.1 fL (80.0-100.0) 09/26/22 19:15 MCH 30.2 pg (25.0-34.0) 09/26/22 19:15 MCHC 32.8 g/dL (32.0-36.0) 09/26/22 19:15 RDW Std Deviation 48.3 fL (36.4-46.3) H 09/26/22 19:15 RDW Coeff of Gaston 14.4 % (11.5-14.5) 09/26/22 19:15 Plt Count 249 K/uL (130-400) 09/26/22 19:15 MPV 10.8 fL (9.4-12.4) 09/26/22 19:15 Immature Gran % (Auto) 0.6 % 09/26/22 19:15 Neut % (Auto) 66.8 % 09/26/22 19:15 Lymph % (Auto) 20.6 % 09/26/22 19:15 Sauk % (Auto) 9.2 % 09/26/22 19:15 Eos % (Auto) 1.4 % 09/26/22 19:15 Baso % (Auto) 1.4 % 09/26/22 19:15 Neut # (Auto) 2.40 K/uL (1.40-6.50) 09/26/22 19:15 Lymph # (Auto) 0.74 K/uL (1.2-3.4) L 09/26/22 19:15 Sauk # (Auto) 0.33 K/uL (0.11-0.59) 09/26/22 19:15 Eos # (Auto) 0.05 K/uL (0-0.50) 09/26/22 19:15 Baso # (Auto) 0.05 K/uL (0-0.2) 09/26/22 19:15 Immature Gran # (Auto) 0.02 K/uL (0.01-0.20) 09/26/22 19:15 PT 11.0 Seconds (9.0-12.0) 09/26/22 19:15 INR 1.0 (0.9-1.1) 09/26/22 19:15 APTT 26.3 Seconds (21.0-31.0) 09/26/22 19:15 PTT Ratio 0.9 09/26/22 19:15 Sodium 139 mmol/L (136-145) 09/26/22 17:45 Potassium 3.3 mmol/L (3.5-5.1) L 09/26/22 19:15 Chloride 105 mmol/L (98-107) 09/26/22 17:45 Carbon Dioxide 26 mmol/L (21-32) 09/26/22 17:45 Anion Gap 8 (3-11) 09/26/22 17:45 BUN 37 mg/dl (6-23) H 09/26/22 17:45 Creatinine 1.28 mg/dl (0.6-1.2) H 09/26/22 17:45 Est Cr Clr Drug Dosing Not Reportable 09/26/22 17:45 Est GFR ( Amer) 44.8 ml/min 09/26/22 17:45 Est GFR (Non-Af Amer) 38.6 ml/min 09/26/22 17:45 BUN/Creatinine Ratio 28.9 (10-20) H 09/26/22 17:45 Glucose 110 mg/dl (70-99(Fasting)) H 09/26/22 17:45 Lactate 0.8 mmol/L (0.4-2.0) 09/26/22 22:37 Calcium 9.0 mg/dl (8.6-10.3) 09/26/22 17:45 Magnesium 2.7 mg/dl (1.7-2.4) H 09/26/22 19:16 Total Bilirubin 0.6 mg/dl (0.2-1.0) 09/26/22 17:45 AST 15 U/L (13-39) 09/26/22 19:15 ALT 11 U/L (7-52) 09/26/22 17:45 Alkaline Phosphatase 181 U/L (34-104) H 09/26/22 17:45 Troponin I High Sens 21.0 pg/ml (0-14) H 09/26/22 19:16 Total Protein 7.3 gm/dl (6.0-8.3) 09/26/22 17:45 Albumin 3.9 gm/dl (3.4-5.0) 09/26/22 17:45 Globulin 3.4 gm/dl (2.5-4.0) 09/26/22 17:45 Albumin/Globulin Ratio 1.1 (0.9-2) 09/26/22 17:45 TSH 1.992 uIu/ml (0.300-4.500) 09/26/22 19:15 Impressions Hip/Pelvis X-Ray 09/26/22 16:35 XR hip ELISEO 2v w pelvis CLINICAL HISTORY: s/p fall TECHNIQUE: 2 views of the bilateral hips and single frontal view of the pelvis were obtained. Comparison: None available at the time of this dictation. FINDINGS: There is no evidence of an acute fracture. Intramedullary misael is seen in the left femur with old healed fracture. Partial visualization of a total knee arthroplasty on the left. No soft tissue abnormality is seen. IMPRESSION: Degenerative changes and findings of old left femur fracture with no evidence of acute fracture. ACT 112: Negative or not required by law. Electronically signed by: Toñito Pappas M.D. 09/26/2022 5:43 PM Lumbar Spine X-Ray 09/26/22 16:35 XR lumbar spine min 4V routine CLINICAL HISTORY: s/p fall TECHNIQUE: 5 views of the lumbar spine were obtained. Comparison: None available at the time of this dictation. FINDINGS: There is no evidence of an acute fracture. Degenerative changes are seen in the lumbar spine. The alignment is normal. Vascular calcifications are noted. IMPRESSION: Degenerative changes as above without acute fracture or subluxation. ACT 112: Negative or not required by law. Electronically signed by: Toñito Pappas M.D. 09/26/2022 5:34 PM Chest X-Ray 09/26/22 16:36 XR chest 1V not portable CLINICAL HISTORY: weakness TECHNIQUE: Single frontal radiograph of the chest was obtained. Comparison: Comparison is made to chest radiograph 08/20/2022 FINDINGS: Dual lead pacemaker is seen. Cardiomegaly is noted. The aortic arch is calcified. The lungs are clear. No evidence of pleural effusion or pneumothorax. IMPRESSION: No acute chest disease. ACT 112: Negative or not required by law. Electronically signed by: Toñito Pappas M.D. 09/26/2022 5:32 PM Abdomen/Pelvis CT 09/26/22 18:53 CR Exam(s): CT ABDOMEN + PELVIS With Contrast IV Amt: 90ml EXAM: CT Abdomen and Pelvis With Intravenous Contrast CLINICAL HISTORY: Reason for exam: fall, hypotension. TECHNIQUE: Axial computed tomography images of the abdomen and pelvis with intravenous contrast. CTDI is 16.24 mGy and DLP is 808.76 mGy-cm. Automated exposure control was utilized for the study. A dose lowering technique was utilized adhering to the principles of ALARA. CONTRAST: Patient received 90ml of IV contrast COMPARISON: CT abdomen/pelvis on 08/21/2022 FINDINGS: Lung bases: Please see accompanying CT chest. ABDOMEN: Liver: Unremarkable. No mass. Gallbladder and bile ducts: Prior cholecystectomy. Probable postcholecystectomy ductal ectasia. Pancreas: Atrophy of the pancreas. No ductal dilation. Spleen: Unremarkable. No splenomegaly. Adrenals: Unremarkable. No mass. Kidneys and ureters: Small hypodensities in the kidneys are too small to definitively characterize. No hydronephrosis. Stomach and bowel: Prominence of the wall of the rectum may be secondary to under distention versus proctitis. Gastric bypass changes. Evaluation of the stomach is limited by underdistention. No bowel obstruction or inflammation. PELVIS: Appendix: Normal appendix. Bladder: Mildly distended bladder. No significant bladder wall thickening or stone. Reproductive: Prior hysterectomy. ABDOMEN and PELVIS: Intraperitoneal space: Unremarkable. No free air. No significant fluid collection. Bones/joints: Subacute appearing fractures of the left superior and inferior pubic rami. Subacute fractures of the sacrum. Intramedullary misael is fixation of the left femur. Dystrophic ossifications along the proximal femurs. Degenerative changes of the spine. No dislocation. Soft tissues: Nonspecific small gas foci along the anterior abdominal wall. Question any recent procedure versus viscous perforation. Vasculature: Extensive vascular calcifications. No abdominal aortic aneurysm. Lymph nodes: Unremarkable. No enlarged lymph nodes. IMPRESSION: 1. Prominence of the wall of the rectum may be secondary to under distention versus proctitis. 2. Subacute appearing fractures of the left superior and inferior pubic rami. Subacute fractures of the sacrum. 3. Nonspecific small gas foci along the anterior abdominal wall. Question any recent procedure versus viscous perforation. Communications: Call Doctor Pneumoperitoneum, new or unexpected Electronically signed by: Tha Russell M.D. 09/26/22 20:[address] 09/26/22 18:53 Exam(s): CT CHEST With Contrast EXAM: CT Chest With Intravenous Contrast CLINICAL HISTORY: Reason for exam: fall, hypotension. TECHNIQUE: Axial computed tomography images of the chest with intravenous contrast. CTDI is 14.81 mGy and DLP is 544.95 mGy-cm. Automated exposure control was utilized for the study. A dose lowering technique was utilized adhering to the principles of ALARA. CONTRAST: 90 cc of Optiray 320 COMPARISON: CT chest on 08/20/2022 FINDINGS: Lungs: Unremarkable. No pulmonary embolus identified. Pleural space: Unremarkable. No pneumothorax. No significant effusion. Heart: Mild cardiomegaly. Coronary artery, aortic valve, and mitral annular calcifications. Left-sided pacemaker. No significant pericardial effusion. Mediastinum: Esophagus is distended with gas and ingested material. Thyroid: Small hypodense nodules in the thyroid to be further evaluated with ultrasound if clinically indicated. Bones/joints: Degenerative changes of the spine. No acute fracture. No dislocation. Soft tissues: Unremarkable. Vasculature: Atherosclerotic changes of the aorta. Mild ectasia of the ascending thoracic aorta measuring 4.0 cm in diameter. No aortic dissection. Lymph nodes: Unremarkable. No enlarged lymph nodes. Stomach and bowel: Probable gastric bypass changes. IMPRESSION: 1. No pulmonary embolus identified. 2. Atherosclerotic changes of the aorta. Mild ectasia of the ascending thoracic aorta measuring 4.0 cm in diameter. No aortic dissection. 3. Esophagus is distended with gas and ingested material. 4. No acute pulmonary parenchymal abnormality identified. 5. No definite acute fracture. Electronically signed by: Tha Russell M.D. 09/26/22 20:15 PM Diagnostic Findings EKG as per my interpretation : Rate 75, A-fib, LAD, LAFB, RBBB, T wave abnormalities inferior and anterolateral leads (1) Hypotension Hypotension type: unspecified hypotension type Qualified Code(s): I95.9 - Hypotension, unspecified
[2022-09-26] MEDS ORDERED: PROMETHAZINE HCL 6.25 MG in SODIUM CHLORIDE 0.9% 50 ML IV PRN (23:09)
[2022-09-26] MEDS ORDERED: POLYETHYLENE (MIRALAX) 17 GM PACK PO PRN (23:16)
[2022-09-27] MEDS ORDERED: GLUCAGON FOR INJ 1 MG VIAL SQ PRN (02:39)
[2022-09-27] MEDS ORDERED: CARBOHYDRATES FOR HYPOGLYCEMIA PO PRN (02:39)
[2022-09-27] MEDS ORDERED: DEXTROSE 50% 50 ML SYRINGE IV PRN (02:39)
[2022-09-27] MEDS ORDERED: GLUCOSE 40% GEL 15 GM TUBE PO PRN (02:39)
[2022-09-27] MEDS ORDERED: GLUCOSE 10 TAB/TUBE PO PRN (02:39)
[2022-09-27] MEDS: INSULIN ASPART PER UNIT CHARGE SC SCH ×5 (03:31→20:28)
[2022-09-27] MEDS: HEPARIN SOD 5,000 UNIT/0.5 ML VIAL SQ SCH ×3 (05:45→21:19)
[2022-09-27 06:52] LABS: Appearance Urine Slightly Cloudy (Clear); Bilirubin Urine Negative (Negative); Blood Urine 1+ (Negative); Color Urine Yellow; Glucose Urine UA Negative (Negative); Ketones Urine Negative (Negative); Leukocyte Esterase Urine 3+ (Negative); Nitrite Urine Negative (Negative); Protein Urine 1+ (Negative); Urobilinogen Urine Negative (Negative)
[2022-09-27 07:17] LABS: Bacteria Urine 3+ (Negative); Epithelial Cell Urine >30 /lpf (0-5); WBC Urine >30 /hpf (0-5)
[2022-09-27] MEDS: DOCUSATE SODIUM/SENNA 50/8.6MG TAB PO SCH (08:00)
[2022-09-27 08:12] LABS: Basophils # (auto) 0.04 K/uL (0-0.2); Basophils % (auto) 1.3 %; Eosinophils % (auto) 3.2 %; Hematocrit (blood only) 29.3 % (37.0-47.0); Hemoglobin 9.4 g/dl (12.0-16.0); Immature Granulocytes # (auto) 0.01 K/uL (0.01-0.20); Immature Granulocytes % (auto) 0.3 %; Lymphocytes # (auto) 0.61 K/uL (1.2-3.4); Lymphocytes % (auto) 19.7 %; Mean Corpuscular Hemoglobin 30.8 pg (25.0-34.0); Mean Corpuscular Hgb Conc 32.1 g/dL (32.0-36.0); Mean Corpuscular Volume 96.1 fL (80.0-100.0); Mean Platelet Volume 10.5 fL (9.4-12.4); Monocytes # (auto) 0.25 K/uL (0.11-0.59); Monocytes % (auto) 8.1 %; Neutrophils # (auto) 2.08 K/uL (1.40-6.50); Neutrophils % (auto) 67.4 %; Platelet Count 223 K/uL (130-400); RDW Coefficient of Variation 14.6 % (11.5-14.5); RDW Standard Deviation 50.7 fL (36.4-46.3); Red Blood Count 3.05 M/uL (4.20-5.40); White Blood Count 3.09 K/ul (4.8-10.8)
[2022-09-27 08:27] LABS: BUN Creatinine Ratio 34.1 (10-20); Creatinine Clr Calc Pharmacy 41.9 ml/min; Est GFR (African American) 67.6 ml/min; Est GFR (Non-African American) 58.3 ml/min; Potassium 3.3 mmol/L (3.5-5.1)
--- NOTE | 2022-09-27 09:09 | Cardiology Consultation ---
Date of Consultation September 27, 2022 Assessment & Plan (1) Hypotension: (2) Weakness: (3) Chronic atrial fibrillation: (4) Pacemaker: (5) CAD (coronary artery disease): Plan 81-year-old female complex history as outlined but known coronary disease, valvular heart disease with mild aortic stenosis and moderate mitral stenosis, preserved LV systolic function, persistent atrial fibrillation with recent hospitalization following mechanical fall and pelvic fracture. She presents now with observed hypotension at rehab facility generalized malaise and weakness. No focal complaints other than back and pelvic discomfort. Patient with history of recurrent urinary tract infections in past urosepsis Patient notes appetite only fair. Anticoagulation discontinued during recent admission Initial laboratory studies reflect chronic anemia and mild renal insufficiency above baseline Impression: Weakness and hypotension likely multifactorial. No signs of acute cardiac decline. Given past history of urosepsis will order blood culture, patient to be evaluated for alternate source of infections Agree with holding furosemide, spironolactone and metoprolol. Gentle hydration begun Pacemaker functioning appropriate Anticoagulation has been on hold but goals should be to resume this admission given atrial fibrillation and mitral stenosis, at risk for embolic stroke Cardiology will follow History of Present Illness Reason for Consultation: Weakness, hypotension Requesting Physician: Dr. Coleman Attending Physician: José Miguel Coleman MD History of Present Illness Patient is a complex 81-year-old female with cardiac and medical issues as per outpatient records 1. Atherosclerotic coronary artery disease status post prior coronary interventions including PTCA and stenting of the right coronary artery in 1995, repeat coronary interventions in July of 2011 receiving atherectomy and stenting of the right coronary artery, and separate procedure with a drug- eluting stent to the mid left anterior descending, December 2011. Cardiac catheterization at [facility] November 20, 2016 high- grade mid left anterior descending stenosis, technically difficult procedure. S/P PCI with Cobra stent to the mid LAD stenosis with occlusion of small diseased diagonal branch) on 12/04/16 at [facility]. Status post coronary angiography and subsequent coronary intervention on 12/31, receiving a drug-eluting stent to 80% narrowing of an ostial diagonal lesion, for persistent cardiac symptoms 2. Stable class I-II angina pectoris. 3. Preserved LV systolic function with chronic diastolic dysfunction. 4. Valvular heart disease with mild aortic stenosis with mild aortic root dilatation/ mild to moderate mitral stenosis 5. Hypertension. 6. Hyperlipidemia. 7. Myelodysplastic syndrome with chronic iron deficiency anemia 9. Postprocedural sinus arrest with extended pause and subsequent dual-chamber pacemaker insertion November 21, [address] BOYCE [id number] 10. Persistent atrial fibrillation 11. Marked hypoalbuminemia 12. Status post gastric bypass surgery 2009 Patient is referred after ER admission for symptoms of weakness and hypotension. Complex history with recent hospitalization following mechanical fall with pelvic and sacral fracture in association with possible urinary tract infection. Patient denies syncope. She is a patient at [facility] currently and has been observed to have low blood pressures and lightheadedness times several days. Blood pressures recorded in the 80s systolic. Question of possible recurrent fall Currently alert and answering questions appropriately. Recognizes me by name. Denies headache or visual changes. Feels weak at times. Appetite has been only fair. Some difficulties with constipation. Still with low back and pelvic pain, rectal discomfort Denies any overt fevers or chills. No dysuria. No bleeding observed Allergies Allergy/AdvReac Type Severity Reaction Status Date / Time adhesive Allergy Unknown ADHESIVE Verified 02/20/22 09:19 TAPE Home Medications Medication Instructions Recorded Confirmed Type acetaminophen 325 mg tablet 650 mg PO Q6 #30 tabs 08/22/22 Rx citalopram 40 mg tablet 40 mg PO QAM #30 tabs 08/22/22 Rx clopidogrel 75 mg tablet 75 mg PO QAM #30 tabs 08/22/22 Rx enoxaparin 40 mg/0.4 mL 40 mg (0.4 mL) subcut QAM #4 mL 08/22/22 Rx subcutaneous syringe (Lovenox) famotidine 20 mg tablet 20 mg PO QAM #30 tabs 08/22/22 Rx ferrous sulfate 325 mg (65 mg 325 mg PO BID #60 tabs 08/22/22 Rx iron) tablet,delayed release furosemide 20 mg tablet 20 mg PO QAM #30 tabs 08/22/22 Rx insulin glargine 100 unit/mL (3 5 unit (0.05 mL) SC DAILY #10 mL 08/22/22 Rx mL) subcutaneous pen (Lantus Solostar U-100 Insulin) levothyroxine 50 mcg tablet 50 mcg PO DAILYBB #30 tabs 08/22/22 Rx (Synthroid) magnesium oxide 400 mg PO HS #60 tabs 08/22/22 Rx methenamine hippurate 1 gram tablet 1 g PO HS #30 tabs 08/22/22 Rx multivitamin (Daily-Nori tablet) 1 tab PO DAILY #30 tabs 08/22/22 Rx riboflavin (vitamin B2) 400 mg 400 mg PO HS #30 tabs 08/22/22 Rx tablet Patient History Medical History Acute blood loss anemia Acute confusion Acute UTI (urinary tract infection) Afib Anemia Aortic root dilatation 4.4 cm on echo 01/2019 Aortic root normal size on 02/2020 ECHO Asthma Atrial fibrillation Bifascicular block CAD (coronary artery disease) "1995 - PTCA and stenting of RCA 07/2011 - atherectomy and stenting RCA 12/2011- AZALIA to the mid LAD 2016-Cobra stent to mid LAD 2017-AZALIA to ostial diagonal Calculus of distal left ureter Chest pain Chronic heart failure with preserved ejection fraction (HFpEF) Closed fracture of left hip February 2020trochanteric nail placed by Ortho Congestive heart failure Depression DM type 2 (diabetes mellitus, type 2) DVT prophylaxis Dyslipidemia Encephalopathy, metabolic Esophagitis GERD (gastroesophageal reflux disease) Hypertension Hypotension Hypothyroidism Hypovolemic shock HOMERO (iron deficiency anemia) Macular degeneration MDS (myelodysplastic syndrome) Mild aortic stenosis Per 02/19/20 ECHO- ASHLEY 1.84 cm; AV max velocity 2.491 m/s; AV mean PG 13.6 mmHg Mitral stenosis Moderate per 02/2020 ECHO Pacemaker Sinus node dysfunction VRE (vancomycin resistant enterococcus) culture positive Surgical History History of angioplasty History of arthroscopy of knee History of arthroscopy of shoulder History of cholecystectomy History of gastric bypass History of incisional hernia repair History of partial hysterectomy History of tonsillectomy Family History Father Colorectal cancer Sister Lung cancer Diabetes Brother Diabetes Mother Diabetes Other KATHY (acute kidney injury) Acute blood loss anemia Social History Smoking Status: Never smoker Second Hand Exposure: No; Do You Dip or Chew Tobacco: No; Hx Alcohol Use: Yes Alcohol type: beer, wine and hard liquor Hx Substance Use: No Preferred Language: Divehi Communication Ability: Effective Visual Impairment: No Limitations Hearing Ability: Normal [employer] Required: No Beliefs That Will Affect Care: None marital status: / Current Living Situation: Skilled Nursing Current Living Situation Comment: [facility] current occupational status: retired How many Children do You have: 3 Other Information That Helps Us Care for You: No Feels Safe at Home: Yes Safety Concerns: Feels Safe At This Time Assistive Devices: Cane, Walker and Wheelchair Review of Systems Review of Systems: All systems reviewed & are unremarkable except as noted in HPI & below Physical Exam Constitutional: + obese; no acute distress Eyes: PERRL, conjunctivae normal, anicteric sclerae ENMT: external ear and nose normal, oropharynx normal Neck: trachea midline, no thyromegaly Respiratory: normal respiratory effort, lungs clear to auscultation Cardiovascular: Rate/Rhythm: + irregularly irregular Heart Sounds: + murmur (Grade 2 over 6 systolic) Vessels: no JVD Extremities: no edema Chest (Breasts): Chest: + pacemaker Gastrointestinal (Abdomen): normal bowel sounds, soft, nontender, no hepatosplenomegaly Results & Data Vital Signs (Past 12 Hours) Vital Signs Temp Pulse Pulse Resp BP BP BP 09/27/22 07:07 36.4 C L 70 17 108/58 L 09/27/22 03:10 09/27/22 03:07 36.6 C 64 18 116/63 09/27/22 02:00 63 10 L 123/64 09/27/22 02:01 09/27/22 01:30 61 19 98/65 L 09/27/22 01:00 82 22 99/63 L 09/27/22 00:30 65 17 108/54 L 09/27/22 00:00 57 L 15 106/53 L 09/26/22 23:33 62 14 101/67 09/26/22 23:30 75 16 09/26/22 23:00 79 26 H 09/26/22 22:30 69 18 110/68 09/26/22 22:00 69 12 09/26/22 21:30 65 23 09/26/22 22:32 94/66 L Pulse Ox O2 Del Method 09/27/22 07:07 100 Room Air 09/27/22 03:10 Room Air 09/27/22 03:07 99 Room Air 09/27/22 02:00 09/27/22 02:01 Room Air 09/27/22 01:30 09/27/22 01:00 09/27/22 00:30 98 09/27/22 00:00 09/26/22 23:33 09/26/22 23:30 09/26/22 23:00 09/26/22 22:30 99 09/26/22 22:00 99 09/26/22 21:30 95 09/26/22 22:32 Laboratory Results Laboratory Results - last 24 hr 09/26/22 09/26/22 09/26/22 17:45 19:15 19:15 WBC 3.59 L RBC 3.31 L Hgb 10.0 L Hct 30.5 L MCV 92.1 MCH 30.2 MCHC 32.8 RDW Std Deviation 48.3 H RDW Coeff of [place] 14.4 Plt Count 249 MPV 10.8 Immature Gran % (Auto) 0.6 Neut % (Auto) 66.8 Lymph % (Auto) 20.6 Gibson % (Auto) 9.2 Eos % (Auto) 1.4 Baso % (Auto) 1.4 Neut # (Auto) 2.40 Lymph # (Auto) 0.74 L Gibson # (Auto) 0.33 Eos # (Auto) 0.05 Baso # (Auto) 0.05 Immature Gran # (Auto) 0.02 PT 11.0 INR 1.0 APTT PTT Ratio Sodium 139 Potassium TNP Chloride 105 Carbon Dioxide 26 Anion Gap 8 BUN 37 H Creatinine 1.28 H Est Cr Clr Drug Dosing Not Reportable Est GFR ( Amer) 44.8 Est GFR (Non-Af Amer) 38.6 BUN/Creatinine Ratio 28.9 H Glucose 110 H POC Glucose Lactate Calcium 9.0 Magnesium Total Bilirubin 0.6 AST TNP ALT 11 Alkaline Phosphatase 181 H Troponin I High Sens 21.3 H Total Protein 7.3 Albumin 3.9 Globulin 3.4 Albumin/Globulin Ratio 1.1 TSH Urine Color Urine Appearance Urine pH Ur Specific [place] Urine Protein Urine Glucose (UA) Urine Ketones Urine Blood Urine Nitrite Urine Bilirubin Urine Urobilinogen Ur Leukocyte Esterase Urine RBC Urine WBC Ur Epithelial Cells Urine Bacteria Nasal Screen MRSA (PCR) SARS-CoV-2, RNA, NAAT 09/26/22 09/26/22 09/26/22 19:15 19:15 19:15 WBC RBC Hgb Hct MCV MCH MCHC RDW Std Deviation RDW Coeff of [place] Plt Count MPV Immature Gran % (Auto) Neut % (Auto) Lymph % (Auto) Gibson % (Auto) Eos % (Auto) Baso % (Auto) Neut # (Auto) Lymph # (Auto) Gibson # (Auto) Eos # (Auto) Baso # (Auto) Immature Gran # (Auto) PT INR APTT 26.3 PTT Ratio 0.9 Sodium Potassium 3.3 L Chloride Carbon Dioxide Anion Gap BUN Creatinine Est Cr Clr Drug Dosing Est GFR ( Amer) Est GFR (Non-Af Amer) BUN/Creatinine Ratio Glucose POC Glucose Lactate Calcium Magnesium Total Bilirubin AST 15 ALT Alkaline Phosphatase Troponin I High Sens Total Protein Albumin Globulin Albumin/Globulin Ratio TSH 1.992 Urine Color Urine Appearance Urine pH Ur Specific [place] Urine Protein Urine Glucose (UA) Urine Ketones Urine Blood Urine Nitrite Urine Bilirubin Urine Urobilinogen Ur Leukocyte Esterase Urine RBC Urine WBC Ur Epithelial Cells Urine Bacteria Nasal Screen MRSA (PCR) SARS-CoV-2, RNA, NAAT 09/26/22 09/26/22 09/27/22 19:16 22:37 00:30 WBC RBC Hgb Hct MCV MCH MCHC RDW Std Deviation RDW Coeff of [place] Plt Count MPV Immature Gran % (Auto) Neut % (Auto) Lymph % (Auto) Gibson % (Auto) Eos % (Auto) Baso % (Auto) Neut # (Auto) Lymph # (Auto) Gibson # (Auto) Eos # (Auto) Baso # (Auto) Immature Gran # (Auto) PT INR APTT PTT Ratio Sodium Potassium Chloride Carbon Dioxide Anion Gap BUN Creatinine Est Cr Clr Drug Dosing Est GFR ( Amer) Est GFR (Non-Af Amer) BUN/Creatinine Ratio Glucose POC Glucose Lactate 0.8 Calcium Magnesium 2.7 H Total Bilirubin AST ALT Alkaline Phosphatase Troponin I High Sens 21.0 H Total Protein Albumin Globulin Albumin/Globulin Ratio TSH Urine Color Urine Appearance Urine pH Ur Specific [place] Urine Protein Urine Glucose (UA) Urine Ketones Urine Blood Urine Nitrite Urine Bilirubin Urine Urobilinogen Ur Leukocyte Esterase Urine RBC Urine WBC Ur Epithelial Cells Urine Bacteria Nasal Screen MRSA (PCR) SARS-CoV-2, RNA, NAAT NEGATIVE 09/27/22 09/27/22 09/27/22 02:56 03:25 05:50 WBC RBC Hgb Hct MCV MCH MCHC RDW Std Deviation RDW Coeff of [place] Plt Count MPV Immature Gran % (Auto) Neut % (Auto) Lymph % (Auto) Gibson % (Auto) Eos % (Auto) Baso % (Auto) Neut # (Auto) Lymph # (Auto) Gibson # (Auto) Eos # (Auto) Baso # (Auto) Immature Gran # (Auto) PT INR APTT PTT Ratio Sodium Potassium Chloride Carbon Dioxide Anion Gap BUN Creatinine Est Cr Clr Drug Dosing Est GFR ( Amer) Est GFR (Non-Af Amer) BUN/Creatinine Ratio Glucose POC Glucose 80 Lactate Calcium Magnesium Total Bilirubin AST ALT Alkaline Phosphatase Troponin I High Sens Total Protein Albumin Globulin Albumin/Globulin Ratio TSH Urine Color Yellow Urine Appearance Slightly Cloudy Urine pH 6.0 Ur Specific [place] 1.010 Urine Protein 1+ H Urine Glucose (UA) Negative Urine Ketones Negative Urine Blood 1+ H Urine Nitrite Negative Urine Bilirubin Negative Urine Urobilinogen Negative Ur Leukocyte Esterase 3+ H Urine RBC 5-10 H Urine WBC >30 H Ur Epithelial Cells >30 H Urine Bacteria 3+ H Nasal Screen MRSA (PCR) Negative SARS-CoV-2, RNA, NAAT 09/27/22 09/27/22 09/27/22 07:06 07:36 07:36 WBC 3.09 L RBC 3.05 L Hgb 9.4 L Hct 29.3 L MCV 96.1 MCH 30.8 MCHC 32.1 RDW Std Deviation 50.7 H RDW Coeff of [place] 14.6 H Plt Count 223 MPV 10.5 Immature Gran % (Auto) 0.3 Neut % (Auto) 67.4 Lymph % (Auto) 19.7 Gibson % (Auto) 8.1 Eos % (Auto) 3.2 Baso % (Auto) 1.3 Neut # (Auto) 2.08 Lymph # (Auto) 0.61 L Gibson # (Auto) 0.25 Eos # (Auto) 0.10 Baso # (Auto) 0.04 Immature Gran # (Auto) 0.01 PT INR APTT PTT Ratio Sodium 141 Potassium 3.3 L Chloride 110 H Carbon Dioxide 25 Anion Gap 6 BUN 31 H Creatinine 0.91 D Est Cr Clr Drug Dosing 41.9 Est GFR ( Amer) 67.6 Est GFR (Non-Af Amer) 58.3 BUN/Creatinine Ratio 34.1 H Glucose 71 POC Glucose 73 Lactate Calcium 8.0 L Magnesium Total Bilirubin AST ALT Alkaline Phosphatase Troponin I High Sens Total Protein Albumin Globulin Albumin/Globulin Ratio TSH Urine Color Urine Appearance Urine pH Ur Specific [place] Urine Protein Urine Glucose (UA) Urine Ketones Urine Blood Urine Nitrite Urine Bilirubin Urine Urobilinogen Ur Leukocyte Esterase Urine RBC Urine WBC Ur Epithelial Cells Urine Bacteria Nasal Screen MRSA (PCR) SARS-CoV-2, RNA, NAAT 09/27/22 11:12 WBC RBC Hgb Hct MCV MCH MCHC RDW Std Deviation RDW Coeff of [place] Plt Count MPV Immature Gran % (Auto) Neut % (Auto) Lymph % (Auto) Gibson % (Auto) Eos % (Auto) Baso % (Auto) Neut # (Auto) Lymph # (Auto) Gibson # (Auto) Eos # (Auto) Baso # (Auto) Immature Gran # (Auto) PT INR APTT PTT Ratio Sodium Potassium Chloride Carbon Dioxide Anion Gap BUN Creatinine Est Cr Clr Drug Dosing Est GFR ( Amer) Est GFR (Non-Af Amer) BUN/Creatinine Ratio Glucose POC Glucose 144 H Lactate Calcium Magnesium Total Bilirubin AST ALT Alkaline Phosphatase Troponin I High Sens Total Protein Albumin Globulin Albumin/Globulin Ratio TSH Urine Color Urine Appearance Urine pH Ur Specific [place] Urine Protein Urine Glucose (UA) Urine Ketones Urine Blood Urine Nitrite Urine Bilirubin Urine Urobilinogen Ur Leukocyte Esterase Urine RBC Urine WBC Ur Epithelial Cells Urine Bacteria Nasal Screen MRSA (PCR) SARS-CoV-2, RNA, NAAT Diagnostic Findings Pacemaker interrogation 09/11/2022 Normal device function with greater than 2 years battery life Persistent atrial fibrillation with 56% RV pacing (1) Hypotension Hypotension type: unspecified hypotension type Qualified Code(s): I95.9 - Hypotension, unspecified (5) CAD (coronary artery disease) Coronary Disease-Associated Artery/Lesion type: [place] artery [place] vs. transplanted heart: [place] heart Associated angina: without angina Qualified Code(s): I25.10 - Atherosclerotic heart disease of [place] coronary artery without angina pectoris
[2022-09-27] MEDS ORDERED: POTASSIUM CHLORIDE CRTAB 20 MEQ TABCR PO ONE (09:48)
[2022-09-27] MEDS: CLOPIDOGREL BISULFATE 75 MG TAB PO SCH (12:05)
[2022-09-27] MEDS: CITALOPRAM 40 MG TAB PO SCH (12:05)
[2022-09-27] MEDS: FAMOTIDINE 20 MG TAB PO SCH (12:05)
--- NOTE | 2022-09-27 12:15 | Surgery Consultation ---
This patient was seen with the surgical PA this am. I agree with this plan. Date of Consultation September 27, 2022 Assessment & Plan (1) Buttock pain: Likely due to recent fall. (2) Fall: Right ankle pain and swelling- will defer to Primary Team for possible right ankle imaging. (3) Hypotension: Per primary team. (4) Constipation: Bowel regimen started by primary team. (5) Abnormal CT scan: 81-year-old female recently admitted to [facility] due to symptomatic hypotension. Ct scan of abdomen was abnormal and showed nonspecific small gas foci along the anterior abdominal wall. Patient's abdominal exam is benign- no indication for surgical intervention at this time. Continue current bowel regimen to help with constipation. General Surgery will continue to follow. Patient seen and examined with Dr. Acevedo. History of Present Illness Reason for Consultation: Abnormal CT scan of abdomen Attending Physician: José Miguel Coleman MD History of Present Illness Ms. Palomo is an 81-year-old female who presented to [facility] for evaluation of low blood pressure and possibly anemia after recent outpatient bloodwork. She resides at [facility]. General Surgery was asked to evaluate patient due to abnormal CT scan of the abdomen that was obtained while in the ED. CT scan showed: 1. Prominence of the wall of the rectum may be secondary to under distention versus proctitis. 2. Subacute appearing fractures of the left superior and inferior pubic rami. Subacute fractures of the sacrum. 3. Nonspecific small gas foci along the anterior abdominal wall. Question any recent procedure versus viscous perforation. Per ED records, patient may have had a fall within the last week at facility. Ms. Palomo states a history of constipation. Reporting that her last bowel movement may have been a week ago. She denies abdominal pain. She has a history of multiple abdominal surgeries- h/o gastric bypass, incisional hernia repair, cholecystectomy, partial hysterectomy. Currently, she denies any nausea or vomiting. Patient was started on bowel regimen per primary team. Allergies Allergy/AdvReac Type Severity Reaction Status Date / Time adhesive Allergy Unknown ADHESIVE Verified 02/20/22 09:19 TAPE Home Medications Medication Instructions Recorded Confirmed Type acetaminophen 325 mg tablet 650 mg PO Q6 #30 tabs 08/22/22 Rx citalopram 40 mg tablet 40 mg PO QAM #30 tabs 08/22/22 Rx clopidogrel 75 mg tablet 75 mg PO QAM #30 tabs 08/22/22 Rx enoxaparin 40 mg/0.4 mL 40 mg (0.4 mL) subcut QAM #4 mL 08/22/22 Rx subcutaneous syringe (Lovenox) famotidine 20 mg tablet 20 mg PO QAM #30 tabs 08/22/22 Rx ferrous sulfate 325 mg (65 mg 325 mg PO BID #60 tabs 08/22/22 Rx iron) tablet,delayed release furosemide 20 mg tablet 20 mg PO QAM #30 tabs 08/22/22 Rx insulin glargine 100 unit/mL (3 5 unit (0.05 mL) SC DAILY #10 mL 08/22/22 Rx mL) subcutaneous pen (Lantus Solostar U-100 Insulin) levothyroxine 50 mcg tablet 50 mcg PO DAILYBB #30 tabs 08/22/22 Rx (Synthroid) magnesium oxide 400 mg PO HS #60 tabs 08/22/22 Rx methenamine hippurate 1 gram tablet 1 g PO HS #30 tabs 08/22/22 Rx multivitamin (Daily-Nori tablet) 1 tab PO DAILY #30 tabs 08/22/22 Rx riboflavin (vitamin B2) 400 mg 400 mg PO HS #30 tabs 08/22/22 Rx tablet Patient History Medical History Acute blood loss anemia Acute confusion Acute UTI (urinary tract infection) Afib Anemia Aortic root dilatation 4.4 cm on echo 01/2019 Aortic root normal size on 02/2020 ECHO Asthma Atrial fibrillation Bifascicular block CAD (coronary artery disease) "1995 - PTCA and stenting of RCA 07/2011 - atherectomy and stenting RCA 12/2011- AZALIA to the mid LAD 2016-Cobra stent to mid LAD 2017-AZALIA to ostial diagonal Calculus of distal left ureter Chest pain Chronic heart failure with preserved ejection fraction (HFpEF) Closed fracture of left hip February 2020trochanteric nail placed by Ortho Congestive heart failure Depression DM type 2 (diabetes mellitus, type 2) DVT prophylaxis Dyslipidemia Encephalopathy, metabolic Esophagitis GERD (gastroesophageal reflux disease) Hypertension Hypotension Hypothyroidism Hypovolemic shock HOMERO (iron deficiency anemia) Macular degeneration MDS (myelodysplastic syndrome) Mild aortic stenosis Per 02/19/20 ECHO- ASHLEY 1.84 cm; AV max velocity 2.491 m/s; AV mean PG 13.6 mmHg Mitral stenosis Moderate per 02/2020 ECHO Pacemaker Sinus node dysfunction VRE (vancomycin resistant enterococcus) culture positive Surgical History History of angioplasty History of arthroscopy of knee History of arthroscopy of shoulder History of cholecystectomy History of gastric bypass History of incisional hernia repair History of partial hysterectomy History of tonsillectomy Family History Father Colorectal cancer Sister Lung cancer Diabetes Brother Diabetes Mother Diabetes Other KATHY (acute kidney injury) Acute blood loss anemia Social History Smoking Status: Never smoker Second Hand Exposure: No; Do You Dip or Chew Tobacco: No; Hx Alcohol Use: Yes Alcohol type: beer, wine and hard liquor Hx Substance Use: No Preferred Language: Lithuanian Communication Ability: Effective Visual Impairment: No Limitations Hearing Ability: Normal [employer] Required: No Beliefs That Will Affect Care: None marital status: / Current Living Situation: [facility] Current Living Situation Comment: [facility] current occupational status: retired How many Children do You have: 3 Other Information That Helps Us Care for You: No Feels Safe at Home: Yes Safety Concerns: Feels Safe At This Time Assistive Devices: Cane, Walker and Wheelchair Review of Systems Constitutional: no fever and no chills Respiratory: no cough, no chest congestion, no dyspnea and no dyspnea on exe rtion Gastrointestinal: no abdominal pain, no nausea and no vomiting Musculoskeletal: + back pain, + joint pain and + swelling (right ankle) Physical Exam Constitutional: WD/WN, vitals as above Respiratory: normal respiratory effort; no respiratory distress and no labored breathing Gastrointestinal (Abdomen): normal bowel sounds, soft, nontender, no hepatosplenomegaly Musculoskeletal: Right ankle is painful with palpation, edematous. Results & Data Vital Signs (Past 12 Hours) Vital Signs Temp Pulse Pulse Resp BP BP BP 09/27/22 08:00 78 09/27/22 11:14 36.8 C 69 18 98/56 L 09/27/22 07:07 36.4 C L 70 17 108/58 L 09/27/22 03:10 09/27/22 03:07 36.6 C 64 18 116/63 09/27/22 02:00 63 10 L 123/64 09/27/22 02:01 09/27/22 01:30 61 19 98/65 L 09/27/22 01:00 82 22 99/63 L 09/27/22 00:30 65 17 108/54 L Pulse Ox O2 Del Method 09/27/22 08:00 09/27/22 11:14 98 Room Air 09/27/22 07:07 100 Room Air 09/27/22 03:10 Room Air 09/27/22 03:07 99 Room Air 09/27/22 02:00 09/27/22 02:01 Room Air 09/27/22 01:30 09/27/22 01:00 09/27/22 00:30 98 PG Care Time/CCT Total # of Minutes Spent Total Time Spent with Patient: Total time spent is greater than 50% in coordination of care (as documented) at patient's floor/unit and/or counseling patient: Coding Level of Care Code 07558 INT INP/OBS CARE 2/55MIN Diagnoses Buttock pain M79.18 Fall W19.XXXA Encounter type: initial encounter Hypotension I95.9 Hypotension type: unspecified hypotension type Constipation K59.[address] scan R93.89 (2) Fall Encounter type: initial encounter Qualified Code(s): W19.XXXA - Unspecified fall, initial encounter (3) Hypotension Hypotension type: unspecified hypotension type Qualified Code(s): I95.9 - Hypotension, unspecified
--- NOTE | 2022-09-27 12:43 | XRay Report ---
XR ankle RT min 3V routine CLINICAL HISTORY: Right ankle pain/swelling, fall COMPARISON STUDY: None. FINDINGS: Soft tissue swelling within the right ankle. There are extensive vascular calcifications no claudia. The bones are osteopenic. 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 No acute fracture or dislocation within the right ankle. Fusion of the subtalar joint with 2 metallic rodrigo. There is a large plantar heel spur. Questionable lucency at the head of the right fifth metatarsal on image 1 is not confirmed on additional views and may be due to overlying artifact. IMPRESSION: 1. No acute fracture or dislocation within the right ankle. 2. Soft tissue swelling within the right ankle. 3. Questionable lucency at the head of the right fifth metatarsal on image 1 is not confirmed on osvaldo tional views and may be due to overlying artifact. Clinical correlation recommended to assess for can n at this location. ACT 112: Negative or not required by law. Electronically signed by: Carmine Adan M.D. 09/27/2022 12:40 PM
[2022-09-27] MEDS: ACETAMINOPHEN W/CODEINE #3 1 TAB PO PRN (13:14)
--- NOTE | 2022-09-27 14:08 | Electrocardiogram Report ---
Test Reason : Blood Pressure : / mmHG Vent. Rate : 073 BPM Atrial Rate : 000 BPM P-R Int : 000 ms QRS Dur : 136 ms QT Int : 450 ms P-R-T Axes : 000 -68 -63 degrees QTc Int : 495 ms Atrial fibrillation with occasional ventricular-paced complexes Left axis deviation Right bundle branch block T wave abnormality, consider inferolateral ischemia Abnormal ECG When compared with ECG of 25-AUG-2022 23:38, Electronic ventricular pacemaker has replaced Atrial fibrillation Confirmed by Nick Prieto ([id number]) on 09/27/2022 2:07:59 PM Referred By: REFERRED SELF Confirmed By:Nick Prieto
--- NOTE | 2022-09-27 15:36 | Hospitalist Progress Note ---
Date of Service September 27, 2022 Assessment & Plan (1) Hypotension: Plan: Hypotension likely multifactorial Rule out sepsis Possible UTI ?Colonization Dehydration Abnormal CT scan:Likely constipation, Less likely perforated bowel --CT ABD:Prominence of the wall of the rectum may be secondary to under distention versus proctitis. Subacute appearing fractures of the left superior and inferior pubic rami. Subacute fractures of the sacrum. Nonspecific small gas foci along the anterior abdominal wall. Question any recent procedure versus viscous perforation. --Lactic acid 0.8 -- Blood, urine culture pending Empirically started on ertapenem given history of ESBL E. coli BP better with IV fluids Hold diuretics Appreciate Surgery Input Continue bowel regimen for constipation Acute kidney injury on CKD III Diuretics held Monitor renal function Avoid nephrotoxic agents as able Subacute pelvic fracture Subacute sacral fracture Right Ankle pain Secondary to fall Diagnosed in August 2022 --Pelvic X ray:Degenerative changes and findings of old left femur fracture with no evidence of acute fracture. --Lumbar Spine:Degenerative changes as above without acute fracture or subluxation. --CT:Subacute appearing fractures of the left superior and inferior pubic rami. Subacute fractures of the sacrum. --R ankle X ray:No acute fracture or dislocation within the right ankle. Soft tissue swelling within the right ankle. Questionable lucency at the head of the right fifth metatarsal on image 1 is not confirmed on additional views and may be due to overlying artifact. Clinical correlation recommended to assess for pain at this location. Fall precautions PT OT Pain control as needed Hypokalemia Replete electrolytes as needed Abdominal aortic aneurysm --CT:Atherosclerotic changes of the aorta. Mild ectasia of the ascending thoracic aorta measuring 4.0 cm in diameter. No aortic dissection. Follow-up as outpatient H/O Chronic diastolic heart failure SSS S/P PPM H/O CAD S/P stent Valvular heart disease (mild aortic stenosis, moderate TR, severe mitral stenosis TTE, 2022) Pulmonary hypertension Pacemaker functioning appropriately per cardiology Continue to hold diuretics for now Monitor Volume status Continue Plavix Persistent atrial fibrillation Off anticoagulation secondary to fall risk Previously on metoprolol succinate 12.5 mg daily Rate controlled Resume metoprolol as able DM II Last HbA1c 7.2 Continue insulin Monitor BGs Hypothyroidism Continue levothyroxine Chronic anemia Myelodysplastic syndrome Monitor CBC DEEPAK off CPAP since 2009 after weight loss post gastric bypass as per records DVT Px: Heparin SQ Code Status DNR/DNI Plan Admission and Anticipated Discharge Date Admission Date: September 26, 2022 Subjective Patient is seen and examined at bedside States having generalized body ache Also reports chronic dyspnea Admits to have some abdominal discomfort and right ankle pain Also reports lower back pain Denies any chest pain, dizziness, nausea, vomiting Review of Systems Review of Systems: All systems reviewed & are unremarkable except as noted in Subjective Physical Exam Physical Exam: Physical Exam: Vitals signs as noted above General Appearance:Elderly, frail, no apparent distress Head: normocephalic, Atraumatic Eyes: normal inspection, EOMI Neck: supple, Trachea midline Respiratory/Chest: Normal breath sounds, CTA, No accessory muscle use Cardiovascular:Irregularly Irregular, + murmur, +Pacer Abdomen/GI:Soft, Non tender, Bowel sounds present 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 Extremities/Musculoskeletal:normal inspection, 1+ B/L LE edema, R ankle tender Neurologic/Psych:AAOX3, grossly no focal neurological deficits Skin: normal color, warm Results & Data Results & Data Vital Signs (Past 12 Hours) Vital Signs Temp Pulse Pulse Resp BP Pulse Ox O2 Del Method 09/27/22 15:13 36.8 C 70 19 116/65 96 Room Air 09/27/22 08:00 78 09/27/22 11:14 36.8 C 69 18 98/56 L 98 Room Air 09/27/22 07:07 36.4 C L 70 17 108/58 L 100 Room Air Laboratory Results Short CBC 09/26/22 09/27/22 Range/Units 19:15 07:36 WBC 3.59 L 3.09 L (4.8-10.8) K/ul Hgb 10.0 L 9.4 L (12.0-16.0) g/dl Hct 30.5 L 29.3 L (37.0-47.0) % Plt Count 249 223 (130-400) K/uL BMP 09/26/22 09/26/22 09/27/22 17:45 19:15 07:36 Sodium 139 141 Potassium TNP 3.3 L 3.3 L Chloride 105 110 H Carbon Dioxide 26 25 BUN 37 H 31 H Creatinine 1.28 H 0.91 D Glucose 110 H 71 Calcium 9.0 8.0 L Liver Function 09/26/22 09/26/22 Range/Units 17:45 19:15 Total Bilirubin 0.6 (0.2-1.0) mg/dl AST TNP 15 ALT 11 (7-52) U/L Alkaline Phosphatase 181 H (34-104) U/L Albumin 3.9 (3.4-5.0) gm/dl Urine 09/27/22 Range/Units 05:50 Urine Color Yellow Urine Appearance Slightly Cloudy (Clear) Urine pH 6.0 (4.5-7.5) Ur Specific [place] 1.010 (1.000-1.030) Urine Protein 1+ H (Negative) Urine Glucose (UA) Negative (Negative) (1) Hypotension Hypotension type: unspecified hypotension type Qualified Code(s): I95.9 - Hypotension, unspecified
[2022-09-27] MEDS: ERTAPENEM SODIUM 1,000 MG in SYRINGE 0 ML IV SCH (17:53)
[2022-09-27] MEDS: FERROUS SULFATE 325 MG TAB PO SCH (17:53)
[2022-09-27] MEDS: METHENAMINE HIPPURATE 1 GM TAB PO SCH (21:19)
[2022-09-28] MEDS: LEVOTHYROXINE SODIUM 50 MCG TABLET PO SCH (05:18)
[2022-09-28] MEDS: HEPARIN SOD 5,000 UNIT/0.5 ML VIAL SQ SCH ×3 (05:18→21:17)
[2022-09-28 06:34] LABS: BUN Creatinine Ratio 24.1 (10-20); Calcium 8.4 mg/dl (8.6-10.3); Creatinine Clr Calc Pharmacy 43.8 ml/min; Est GFR (African American) 71.4 ml/min; Est GFR (Non-African American) 61.6 ml/min; Magnesium 2.3 mg/dl (1.7-2.4); Potassium 4.1 mmol/L (3.5-5.1)
[2022-09-28] MEDS: FAMOTIDINE 20 MG TAB PO SCH (08:06)
[2022-09-28] MEDS: CITALOPRAM 40 MG TAB PO SCH (08:06)
[2022-09-28] MEDS: MULTIVITAMIN TAB PO SCH (08:06)
[2022-09-28] MEDS: FERROUS SULFATE 325 MG TAB PO SCH ×2 (08:06→16:44)
[2022-09-28] MEDS: CLOPIDOGREL BISULFATE 75 MG TAB PO SCH (08:06)
[2022-09-28] MEDS: INSULIN ASPART PER UNIT CHARGE SC SCH ×4 (08:07→20:22)
[2022-09-28] MEDS: DOCUSATE SODIUM/SENNA 50/8.6MG TAB PO SCH (08:09)
[2022-09-28] MEDS: ACETAMINOPHEN 325 MG TAB PO PRN (08:09)
[2022-09-28] MEDS: ACETAMINOPHEN W/CODEINE #3 1 TAB PO PRN (11:30)
--- NOTE | 2022-09-28 11:38 | Surgery Progress Note ---
I saw and examined this patient with the surgical PA, I agree with this plan. Date of Service September 28, 2022 Assessment & Plan (1) Constipation: Plan: Patient reports that she is feeling better today. She continues to deny abdominal pain, nausea or vomiting. She reports that she is passing gas and moving her bowels. Recommend that she still continue bowel regimen while in- house and would recommend daily stool softener when discharged. General Surgery will sign off at this time. Patient seen and examined with Dr. Acevedo. Admission and Anticipated Discharge Date Admission Date: September 26, 2022 Subjective patient is resting in bed- she reports that she feels better than yesterday. She does admit to passing gas and having a bowel movement. She continues to tolerate a regular diet. She denies any new concerns or complaints overnight. Review of Systems Constitutional: no fever and no chills Respiratory: no cough, no chest congestion, no dyspnea and no dyspnea on exertion Gastrointestinal: no abdominal pain, no nausea and no vomiting Musculoskeletal: + back pain, + joint pain and + swelling (right ankle) Physical Exam Constitutional: WD/WN, vitals as above Respiratory: normal respiratory effort; no respiratory distress and no labored breathing Gastrointestinal (Abdomen): normal bowel sounds, soft, nontender, no hepatosplenomegaly Musculoskeletal: Right ankle is painful with palpation, edematous. Results & Data Vital Signs (Past 12 Hours) Vital Signs Temp Pulse Pulse Resp BP Pulse Ox O2 Del Method 09/28/22 11:29 36.5 C 77 20 105/66 97 Room Air 09/28/22 07:00 71 09/28/22 07:25 36.5 C 68 19 106/59 L 97 Room Air 09/28/22 00:00 73 09/28/22 04:00 36.9 C 67 16 115/66 98 Room Air PG Care Time/CCT Total # of Minutes Spent Total Time Spent with Patient: Total time spent is greater than 50% in coordination of care (as documented) at patient's floor/unit and/or counseling patient: Coding Level of Care Code 85502 SUB INP/OBS CARE 04/09MIN Diagnoses Constipation K59.00
--- NOTE | 2022-09-28 12:36 | CT Scan Report ---
CT head/brain wo con CLINICAL HISTORY: headache, blurred vision Technique: Contiguous axial CT images of the head were acquired from the base of the skull to the mara [place] without intravenous contrast administration. Images were viewed in brain, subdural and bone [facility]. Automated dose lowering techniques and/or adjustment according to patient size were utilized for this exam. Comparison: Comparison is made to CT head 10/03/2019 Findings: Areas of decreased attenuation are present in the periventricular and subcortical white matter bilate rally consistent with small vessel ischemic disease. Generalized cerebral atrophy with commensurate e nlargement of the ventricles, sulci, and cisterns is also present. There is no acute intracranial hem orrhage or evidence of acute territorial infarction. No shift of the midline structures, mass effect, or extra-axial abnormalities are shown. Atherosclerotic calcifications are present in the intracran ial segments of the internal carotid arteries. Imaged portions of the paranasal sinuses and mastoid air cells are clear. The orbits appear normal. There are no acute fractures of the calvaria or scalp swelling. Impression: No acute intracranial hemorrhage, no evidence of acute territorial infarction or other acute intracra nial disease process. ACT 112: Negative or not required by law. Electronically signed by: Toñito Pappas M.D. 09/28/2022 12:34 PM
--- NOTE | 2022-09-28 12:42 | Cardiology Progress Note ---
Date of Service September 28, 2022 Assessment & Plan (1) Hypotension: (2) Weakness: (3) Chronic atrial fibrillation: (4) Pacemaker: (5) CAD (coronary artery disease): Plan 81-year-old female complex history as outlined but known coronary disease, valvular heart disease with mild aortic stenosis and moderate mitral stenosis, preserved LV systolic function, persistent atrial fibrillation with recent hospitalization following mechanical fall and pelvic fracture. She presents now with observed hypotension at rehab facility generalized malaise and weakness. No focal complaints other than back and pelvic discomfort. Patient with history of recurrent urinary tract infections in past urosepsis Patient notes appetite only fair. Anticoagulation discontinued during recent admission Initial laboratory studies reflect chronic anemia and mild renal insufficiency above baseline Impression: Weakness and hypotension likely multifactorial. No signs of acute cardiac decline. Given past history of urosepsis will order blood culture, patient to be evaluated for alternate source of infections Agree with holding furosemide, spironolactone and metoprolol. Gentle hydration begun Pacemaker functioning appropriate Anticoagulation has been on hold Cardiology will follow 09/28/2022 No acute cardiac concerns. Blood pressure improved on holding diuretics without signs of volume overload as well as holding low-dose metoprolol succinate. We will continue to do so no arrhythmias on telemetry Admission and Anticipated Discharge Date Admission Date: September 26, 2022 Subjective Patient seen and examined, chart, medications, telemetry reviewed No acute complaints this morning other than low back pain No dizziness or lightheadedness Mild disorientation on initial examination Telemetry without arrhythmias or tachycardia Review of Systems Review of Systems: All systems reviewed & are unremarkable except as noted in Subjective Physical Exam Constitutional: + obese; no acute distress Eyes: PERRL, conjunctivae normal, anicteric sclerae ENMT: external ear and nose normal, oropharynx normal Neck: trachea midline, no thyromegaly Respiratory: normal respiratory effort, lungs clear to auscultation Cardiovascular: Rate/Rhythm: + irregularly irregular Heart Sounds: + murmur (Grade 2 over 6 systolic) Vessels: no JVD Extremities: no edema Chest (Breasts): Chest: + pacemaker Gastrointestinal (Abdomen): normal bowel sounds, soft, nontender, no hepatosplenomegaly Results & Data Vital Signs (Past 12 Hours) Vital Signs Temp Pulse Pulse Resp BP Pulse Ox O2 Del Method 09/28/22 11:29 36.5 C 77 20 105/66 97 Room Air 09/28/22 07:00 71 09/28/22 07:25 36.5 C 68 19 106/59 L 97 Room Air 09/28/22 04:00 36.9 C 67 16 115/66 98 Room Air Laboratory Results Laboratory Results - last 24 hr 09/27/22 09/27/22 09/28/22 16:18 20:07 05:44 Sodium 142 Potassium 4.1 D Chloride 112 H Carbon Dioxide 24 Anion Gap 6 BUN 21 Creatinine 0.87 Est Cr Clr Drug Dosing 43.8 Est GFR ( Amer) 71.4 Est GFR (Non-Af Amer) 61.6 BUN/Creatinine Ratio 24.1 H Glucose 74 POC Glucose 84 99 Calcium 8.4 L Magnesium 2.3 09/28/22 09/28/22 07:23 11:28 Sodium Potassium Chloride Carbon Dioxide Anion Gap BUN Creatinine Est Cr Clr Drug Dosing Est GFR ( Amer) Est GFR (Non-Af Amer) BUN/Creatinine Ratio Glucose POC Glucose 87 103 H Calcium Magnesium (1) Hypotension Hypotension type: unspecified hypotension type Qualified Code(s): I95.9 - Hypotension, unspecified (5) CAD (coronary artery disease) Coronary Disease-Associated Artery/Lesion type: [place] artery [place] vs. transplanted heart: [place] heart Associated angina: without angina Qualified Code(s): I25.10 - Atherosclerotic heart disease of [place] coronary artery without angina pectoris
[2022-09-28] MEDS: oxyCODONE/ACETAMINOPHEN 5mg/325mg TAB PO PRN ×2 (13:20→21:16)
[2022-09-28] MEDS: ERTAPENEM SODIUM 1,000 MG in SYRINGE 0 ML IV SCH (14:38)
--- NOTE | 2022-09-28 17:31 | Hospitalist Progress Note ---
Date of Service September 28, 2022 Assessment & Plan (1) Hypotension: Plan: Hypotension likely multifactorial Rule out sepsis Possible UTI ?Colonization Dehydration Abnormal CT scan:Likely constipation, Less likely perforated bowel --CT ABD:Prominence of the wall of the rectum may be secondary to under distention versus proctitis. Subacute appearing fractures of the left superior and inferior pubic rami. Subacute fractures of the sacrum. Nonspecific small gas foci along the anterior abdominal wall. Question any recent procedure versus viscous perforation. --Lactic acid 0.8 -- Blood Culture:Negative to date --urine culture: Not contributory Empirically started on ertapenem given history of ESBL E. coli Hold diuretics for now Appreciate Surgery Input Continue bowel regimen for constipation BP better Will repeat Urine Culture Acute kidney injury on CKD III Diuretics held Monitor renal function Avoid nephrotoxic agents as able Creatinine levels improved Subacute pelvic fracture Subacute sacral fracture Right Ankle pain Secondary to fall Diagnosed in August 2022 --Pelvic X ray:Degenerative changes and findings of old left femur fracture with no evidence of acute fracture. --Lumbar Spine:Degenerative changes as above without acute fracture or subluxation. --CT:Subacute appearing fractures of the left superior and inferior pubic rami. Subacute fractures of the sacrum. --R ankle X ray:No acute fracture or dislocation within the right ankle. Soft tissue swelling within the right ankle. Questionable lucency at the head of the right fifth metatarsal on image 1 is not confirmed on additional views and may be due to overlying artifact. Clinical correlation recommended to assess for pain at this location. Fall precautions continue PT OT Pain control as needed Headache Transient blurry vision --CT head:No acute intracranial hemorrhage, no evidence of acute territorial infarction or other acute intracranial disease process. Will consider MRI if needed Hypokalemia Replete electrolytes as needed Abdominal aortic aneurysm --CT:Atherosclerotic changes of the aorta. Mild ectasia of the ascending thoracic aorta measuring 4.0 cm in diameter. No aortic dissection. Follow-up as outpatient H/O Chronic diastolic heart failure SSS S/P PPM H/O CAD S/P stent Valvular heart disease (mild aortic stenosis, moderate TR, severe mitral stenosis TTE, 2022) Pulmonary hypertension Pacemaker functioning appropriately per cardiology Continue to hold diuretics for now Monitor Volume status Continue Plavix Persistent atrial fibrillation Off anticoagulation secondary to fall risk Previously on metoprolol succinate 12.5 mg daily Rate controlled Resume metoprolol as able DM II Last HbA1c 7.2 Continue insulin Monitor BGs Hypothyroidism Continue levothyroxine Chronic anemia Myelodysplastic syndrome Monitor CBC DEEPAK off CPAP since 2009 after weight loss post gastric bypass as per records DVT Px: Heparin SQ Code Status DNR/DNI Plan Admission and Anticipated Discharge Date Admission Date: September 26, 2022 Subjective Patient is seen and examined at bedside States having headache with associated transient blurry vision Constipation resolved Also reports lower back pain Denies any chest pain, dizziness, nausea, vomiting Review of Systems Review of Systems: All systems reviewed & are unremarkable except as noted in Subjective Physical Exam Physical Exam: Physical Exam: Vitals signs as noted above General Appearance:Elderly, frail, no apparent distress Head: normocephalic, Atraumatic Eyes: normal inspection, EOMI Neck: supple, Trachea midline Respiratory/Chest: Normal breath sounds, CTA, No accessory muscle use Cardiovascular:Irregularly Irregular, + murmur, +Pacer Abdomen/GI:Soft, Non tender, Bowel sounds present Back: Lower backer up Extremities/Musculoskeletal:normal inspection, 1+ B/L LE edema, R ankle tender Neurologic/Psych:AAOX3, grossly no focal neurological deficits Skin: normal color, warm Results & Data Results & Data Vital Signs (Past 12 Hours) Vital Signs Temp Pulse Pulse Resp BP Pulse Ox O2 Del Method 09/28/22 15:20 36.7 C 65 19 131/74 100 Room Air 09/28/22 15:08 68 09/28/22 11:29 36.5 C 77 20 105/66 97 Room Air 09/28/22 07:00 71 09/28/22 07:25 36.5 C 68 19 106/59 L 97 Room Air Laboratory Results [facility] 09/28/22 05:44 Sodium 142 Potassium 4.1 D Chloride 112 H Carbon Dioxide 24 BUN 21 Creatinine 0.87 Glucose 74 Calcium 8.4 L (1) Hypotension Hypotension type: unspecified hypotension type Qualified Code(s): I95.9 - Hypotension, unspecified
[2022-09-28] MEDS: METHENAMINE HIPPURATE 1 GM TAB PO SCH (19:37)
[2022-09-28] MEDS: MELATONIN 3 MG TAB PO PRN (21:16)
[2022-09-29] MEDS: LEVOTHYROXINE SODIUM 50 MCG TABLET PO SCH (05:31)
[2022-09-29] MEDS: HEPARIN SOD 5,000 UNIT/0.5 ML VIAL SQ SCH ×3 (05:31→20:29)
[2022-09-29 07:25] LABS: Hematocrit (blood only) 30.5 % (37.0-47.0); Hemoglobin 9.7 g/dl (12.0-16.0)
[2022-09-29 07:42] LABS: BUN Creatinine Ratio 18.3 (10-20); Calcium 8.3 mg/dl (8.6-10.3); Creatinine Clr Calc Pharmacy 40.4 ml/min; Est GFR (African American) 65.9 ml/min; Est GFR (Non-African American) 56.8 ml/min; Potassium 4.2 mmol/L (3.5-5.1)
[2022-09-29] MEDS: INSULIN ASPART PER UNIT CHARGE SC SCH ×4 (08:10→20:22)
[2022-09-29] MEDS: FERROUS SULFATE 325 MG TAB PO SCH ×2 (08:17→16:53)
[2022-09-29] MEDS: MULTIVITAMIN TAB PO SCH (08:18)
[2022-09-29] MEDS: CLOPIDOGREL BISULFATE 75 MG TAB PO SCH (08:18)
[2022-09-29] MEDS: CITALOPRAM 40 MG TAB PO SCH (08:18)
[2022-09-29] MEDS: FAMOTIDINE 20 MG TAB PO SCH (08:18)
[2022-09-29] MEDS: DOCUSATE SODIUM/SENNA 50/8.6MG TAB PO SCH (08:31)
--- NOTE | 2022-09-29 12:33 | Cardiology Progress Note ---
Date of Service September 29, 2022 Assessment & Plan (1) Hypotension: (2) Weakness: (3) Chronic atrial fibrillation: (4) Pacemaker: (5) CAD (coronary artery disease): Plan 81-year-old female complex history as outlined but known coronary disease, valvular heart disease with mild aortic stenosis and moderate mitral stenosis, preserved LV systolic function, persistent atrial fibrillation with recent hospitalization following mechanical fall and pelvic fracture. She presents now with observed hypotension at rehab facility generalized malaise and weakness. No focal complaints other than back and pelvic discomfort. Patient with history of recurrent urinary tract infections in past urosepsis Patient notes appetite only fair. Anticoagulation discontinued during recent admission Initial laboratory studies reflect chronic anemia and mild renal insufficiency above baseline Impression: Weakness and hypotension likely multifactorial. No signs of acute cardiac decline. Given past history of urosepsis will order blood culture, patient to be evaluated for alternate source of infections Agree with holding furosemide, spironolactone and metoprolol. Gentle hydration begun Pacemaker functioning appropriate Anticoagulation has been on hold Cardiology will follow 09/28/2022 No acute cardiac concerns. Blood pressure improved on holding diuretics without signs of volume overload as well as holding low-dose metoprolol succinate. We will continue to do so no arrhythmias on telemetry 09/29/2022. No acute cardiac issues. Blood pressure on low end of normal but on no antihypertensive therapies. Continue to hold diuretics and metoprolol succinate. Encourage oral intake Admission and Anticipated Discharge Date Admission Date: September 26, 2022 Subjective Patient seen and examined, chart, medications and telemetry reviewed. Patient somewhat vague today but denies any complaints feels back and pelvic pain much improved. No dizziness or lightheadedness. Appetite only fair Physical Exam Constitutional: + obese; no acute distress Eyes: PERRL, conjunctivae normal, anicteric sclerae ENMT: external ear and nose normal, oropharynx normal Neck: trachea midline, no thyromegaly Respiratory: normal respiratory effort, lungs clear to auscultation Cardiovascular: Rate/Rhythm: + irregularly irregular Heart Sounds: + murmur (Grade 2 over 6 systolic) Vessels: no JVD Extremities: no edema Chest (Breasts): Chest: + pacemaker Gastrointestinal (Abdomen): normal bowel sounds, soft, nontender, no hepatosplenomegaly Results & Data Vital Signs (Past 12 Hours) Vital Signs Temp Pulse Pulse Pulse Resp BP BP 09/29/22 11:31 36.4 C L 68 14 96/61 L 09/29/22 09:39 67 09/29/22 07:10 36.4 C L 69 16 101/65 09/29/22 03:15 36.3 C L 73 16 114/56 L Pulse Ox O2 Del Method 09/29/22 11:31 97 Room Air 09/29/22 09:39 09/29/22 07:10 98 Room Air 09/29/22 03:15 99 Room Air Laboratory Results Laboratory Results - last 24 hr 09/28/22 09/28/22 09/29/22 16:04 19:57 06:00 Hgb Hct Sodium 141 Potassium 4.2 Chloride 111 H Carbon Dioxide 26 Anion Gap 4 BUN 17 Creatinine 0.93 Est Cr Clr Drug Dosing 40.4 Est GFR ( Amer) 65.9 Est GFR (Non-Af Amer) 56.8 BUN/Creatinine Ratio 18.3 Glucose 75 POC Glucose 88 114 H Calcium 8.3 L 09/29/22 09/29/22 09/29/22 06:00 06:58 11:04 Hgb 9.7 L Hct 30.5 L Sodium Potassium Chloride Carbon Dioxide Anion Gap BUN Creatinine Est Cr Clr Drug Dosing Est GFR ( Amer) Est GFR (Non-Af Amer) BUN/Creatinine Ratio Glucose POC Glucose 93 94 Calcium (1) Hypotension Hypotension type: unspecified hypotension type Qualified Code(s): I95.9 - Hypotension, unspecified (5) CAD (coronary artery disease) Coronary Disease-Associated Artery/Lesion type: [place] artery [place] vs. transplanted heart: [place] heart Associated angina: without angina Qualified Code(s): I25.10 - Atherosclerotic heart disease of [place] coronary artery without angina pectoris
[2022-09-29] MEDS: ACETAMINOPHEN W/CODEINE #3 1 TAB PO PRN (14:32)
--- NOTE | 2022-09-29 16:00 | Hospitalist Progress Note ---
Date of Service September 29, 2022 Assessment & Plan (1) Hypotension: Plan: Hypotension likely multifactorial Rule out sepsis Possible UTI ?Colonization Dehydration Abnormal CT scan:Likely constipation, Less likely perforated bowel --CT ABD:Prominence of the wall of the rectum may be secondary to under distention versus proctitis. Subacute appearing fractures of the left superior and inferior pubic rami. Subacute fractures of the sacrum. Nonspecific small gas foci along the anterior abdominal wall. Question any recent procedure versus viscous perforation. --Lactic acid 0.8 -- Blood Culture:Negative to date --urine culture: Not contributory Empirically started on ertapenem given history of ESBL E. coli Hold diuretics for now Appreciate Surgery Input Continue bowel regimen for constipation Blood pressure stable Repeat Urine Culture: Preliminary negative Plan to discharge to rehab facility as able Acute kidney injury on CKD III Diuretics held Monitor renal function Avoid nephrotoxic agents as able Creatinine levels normalized Subacute pelvic fracture Subacute sacral fracture Right Ankle pain Secondary to fall Diagnosed in August 2022 --Pelvic X ray:Degenerative changes and findings of old left femur fracture with no evidence of acute fracture. --Lumbar Spine:Degenerative changes as above without acute fracture or subluxation. --CT:Subacute appearing fractures of the left superior and inferior pubic rami. Subacute fractures of the sacrum. --R ankle X ray:No acute fracture or dislocation within the right ankle. Soft tissue swelling within the right ankle. Questionable lucency at the head of the right fifth metatarsal on image 1 is not confirmed on additional views and may be due to overlying artifact. Clinical correlation recommended to assess for pain at this location. Fall precautions continue PT OT Pain control as needed Headache Chronic blurry vision as per patient --CT head:No acute intracranial hemorrhage, no evidence of acute territorial infarction or other acute intracranial disease process. Follows with jewel bearing facer as outpatient Hypokalemia Replete electrolytes as needed Abdominal aortic aneurysm --CT:Atherosclerotic changes of the aorta. Mild ectasia of the ascending thoracic aorta measuring 4.0 cm in diameter. No aortic dissection. Follow-up as outpatient H/O Chronic diastolic heart failure SSS S/P PPM H/O CAD S/P stent Valvular heart disease (mild aortic stenosis, moderate TR, severe mitral stenosis TTE, 2022) Pulmonary hypertension Pacemaker functioning appropriately per cardiology Continue to hold diuretics for now Monitor Volume status Continue Plavix Persistent atrial fibrillation Off anticoagulation secondary to fall risk Previously on metoprolol succinate 12.5 mg daily Rate controlled Resume metoprolol if BP tolerates DM II Last HbA1c 7.2 Continue insulin Monitor BGs Hypothyroidism Continue levothyroxine Chronic anemia Myelodysplastic syndrome Monitor CBC DEEPAK off CPAP since 2009 after weight loss post gastric bypass as per records DVT Px: Heparin SQ Code Status DNR/DNI Disposition SNF as able Plan Admission and Anticipated Discharge Date Admission Date: September 26, 2022 Subjective Patient is seen and examined at bedside Sitting in chair during my encounter States blurry vision is chronic and has been following with jewel bearing facer as outpatient No new complaints Reports intermittent lower back pain--worse with activity Denies any chest pain, dizziness, nausea, vomiting Review of Systems Review of Systems: All systems reviewed & are unremarkable except as noted in Subjective Physical Exam Physical Exam: Physical Exam: Vitals signs as noted above General Appearance:Elderly, frail, no apparent distress Head: normocephalic, Atraumatic Eyes: normal inspection, EOMI Neck: supple, Trachea midline Respiratory/Chest: Normal breath sounds, CTA, No accessory muscle use Cardiovascular:Irregularly Irregular, + murmur, +Pacer Abdomen/GI:Soft, Non tender, Bowel sounds present 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 Extremities/Musculoskeletal:normal inspection, 1+ B/L LE edema, R ankle tender Neurologic/Psych:AAOX3, grossly no focal neurological deficits Skin: normal color, warm Results & Data Results & Data Vital Signs (Past 12 Hours) Vital Signs Temp Pulse Pulse Resp BP BP Pulse Ox 09/29/22 15:00 36.5 C 83 16 118/76 100 09/29/22 11:31 36.4 C L 68 14 96/61 L 97 09/29/22 09:39 67 09/29/22 07:10 36.4 C L 69 16 101/65 98 O2 Del Method 09/29/22 15:00 Room Air 09/29/22 11:31 Room Air 09/29/22 09:39 09/29/22 07:10 Room Air Laboratory Results Short CBC 09/29/22 Range/Units 06:00 Hgb 9.7 L (12.0-16.0) g/dl Hct 30.5 L (37.0-47.0) % BMP 09/29/22 06:00 Sodium 141 Potassium 4.2 Chloride 111 H Carbon Dioxide 26 BUN 17 Creatinine 0.93 Glucose 75 Calcium 8.3 L (1) Hypotension Hypotension type: unspecified hypotension type Qualified Code(s): I95.9 - Hypotension, unspecified
[2022-09-29] MEDS: ERTAPENEM SODIUM 1,000 MG in SYRINGE 0 ML IV SCH (16:50)
[2022-09-29] MEDS: MELATONIN 3 MG TAB PO PRN (20:28)
[2022-09-29] MEDS: METHENAMINE HIPPURATE 1 GM TAB PO SCH (20:28)
--- NOTE | 2022-09-30 03:21 | Communication Note ---
Date of Service: September 30, 2022 Made aware by RN of SBP 80s. Patient sleeping. AP Hypotension Recurrent issue despite holding patient's BP and diuretic medications Initiate midodrine
[2022-09-30] MEDS: MIDODRINE HCL 2.5 MG TAB PO SCH ×4 (03:33→17:13)
[2022-09-30 04:38] LABS: Basophils # (auto) 0.05 K/uL (0-0.2); Basophils % (auto) 1.7 %; Eosinophils # (auto) 0.07 K/uL (0-0.50); Eosinophils % (auto) 2.3 %; Hematocrit (blood only) 28.9 % (37.0-47.0); Hemoglobin 9.5 g/dl (12.0-16.0); Immature Granulocytes # (auto) 0.02 K/uL (0.01-0.20); Immature Granulocytes % (auto) 0.7 %; Lymphocytes # (auto) 0.83 K/uL (1.2-3.4); Lymphocytes % (auto) 27.4 %; Mean Corpuscular Hgb Conc 32.9 g/dL (32.0-36.0); Mean Corpuscular Volume 94.4 fL (80.0-100.0); Mean Platelet Volume 10.5 fL (9.4-12.4); Monocytes # (auto) 0.29 K/uL (0.11-0.59); Monocytes % (auto) 9.6 %; Neutrophils # (auto) 1.77 K/uL (1.40-6.50); Neutrophils % (auto) 58.3 %; Platelet Count 215 K/uL (130-400); RDW Coefficient of Variation 14.3 % (11.5-14.5); RDW Standard Deviation 48.8 fL (36.4-46.3); Red Blood Count 3.06 M/uL (4.20-5.40); White Blood Count 3.03 K/ul (4.8-10.8)
[2022-09-30 04:44] LABS: Calcium 8.3 mg/dl (8.6-10.3); Magnesium 2.1 mg/dl (1.7-2.4); Potassium 4.2 mmol/L (3.5-5.1)
[2022-09-30 04:50] LABS: BUN Creatinine Ratio 18.1 (10-20); Creatinine Clr Calc Pharmacy 45.3 ml/min; Est GFR (African American) 75.6 ml/min; Est GFR (Non-African American) 65.2 ml/min
[2022-09-30] MEDS: HEPARIN SOD 5,000 UNIT/0.5 ML VIAL SQ SCH ×3 (05:20→22:09)
[2022-09-30] MEDS: LEVOTHYROXINE SODIUM 50 MCG TABLET PO SCH (05:20)
[2022-09-30] MEDS: INSULIN ASPART PER UNIT CHARGE SC SCH ×4 (07:56→20:33)
[2022-09-30] MEDS: FAMOTIDINE 20 MG TAB PO SCH (08:07)
[2022-09-30] MEDS: MULTIVITAMIN TAB PO SCH (08:07)
[2022-09-30] MEDS: CLOPIDOGREL BISULFATE 75 MG TAB PO SCH (08:07)
[2022-09-30] MEDS: FERROUS SULFATE 325 MG TAB PO SCH ×2 (08:07→17:13)
[2022-09-30] MEDS: CITALOPRAM 40 MG TAB PO SCH (08:07)
[2022-09-30] MEDS: DOCUSATE SODIUM/SENNA 50/8.6MG TAB PO SCH (08:22)
[2022-09-30] MEDS: ERTAPENEM SODIUM 1,000 MG in SYRINGE 0 ML IV SCH (16:38)
--- NOTE | 2022-09-30 16:42 | Hospitalist Progress Note ---
Date of Service September 30, 2022 Assessment & Plan (1) Hypotension: Plan: Hypotension likely multifactorial Ruled out sepsis Possible UTI ?ColonizationH/O ESBL E coli Dehydration Abnormal CT scan:Likely constipation, Less likely perforated bowel --CT ABD:Prominence of the wall of the rectum may be secondary to under distention versus proctitis. Subacute appearing fractures of the left superior and inferior pubic rami. Subacute fractures of the sacrum. Nonspecific small gas foci along the anterior abdominal wall. Question any recent procedure versus viscous perforation. --Lactic acid 0.8 -- Blood Culture:Negative to date --urine culture: Not contributory --Repeat Urine Culture: Negative Empirically received 3 day course of ertapenem Hold diuretics for now Appreciate Surgery Input Continue bowel regimen for constipation BP remains low, poor oral intake Started on Midodrine, encourage to increase oral fluid intake Acute kidney injury on CKD III Diuretics held Monitor renal function Avoid nephrotoxic agents as able Creatinine levels normalized Subacute pelvic fracture Subacute sacral fracture Right Ankle pain Secondary to fall Diagnosed in August 2022 --Pelvic X ray:Degenerative changes and findings of old left femur fracture with no evidence of acute fracture. --Lumbar Spine:Degenerative changes as above without acute fracture or subluxation. --CT:Subacute appearing fractures of the left superior and inferior pubic rami. Subacute fractures of the sacrum. --R ankle X ray:No acute fracture or dislocation within the right ankle. Soft tissue swelling within the right ankle. Questionable lucency at the head of the right fifth metatarsal on image 1 is not confirmed on additional views and may be due to overlying artifact. Clinical correlation recommended to assess for pain at this location. Fall precautions continue PT OT Pain control as needed Headache Chronic blurry vision as per patient --CT head:No acute intracranial hemorrhage, no evidence of acute territorial infarction or other acute intracranial disease process. 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 Mild ectasia of the ascending thoracic aorta measuring 4.0 cm in diameter. No aortic dissection. Follow-up as outpatient H/O Chronic diastolic heart failure SSS S/P PPM H/O CAD S/P stent Valvular heart disease (mild aortic stenosis, moderate TR, severe mitral stenosis TTE, 2022) Pulmonary hypertension Pacemaker functioning appropriately per cardiology Continue to hold diuretics for now Monitor Volume status Continue Plavix Persistent atrial fibrillation Off anticoagulation secondary to fall risk Previously on metoprolol succinate 12.5 mg daily Rate controlled Resume metoprolol if BP tolerates DM II Last HbA1c 7.2 Continue insulin Monitor BGs Hypothyroidism Continue levothyroxine Chronic anemia Myelodysplastic syndrome Monitor CBC DEEPAK off CPAP since 2009 after weight loss post gastric bypass as per records DVT Px: Heparin SQ Code Status DNR/DNI Disposition Case management to help with discharge planning Plan Admission and Anticipated Discharge Date Admission Date: September 26, 2022 Subjective Patient is seen and examined at bedside States feeling tired and reports generalized pain BP remains low Reports intermittent lower back/pelvic pain Denies any chest pain, dizziness, nausea, vomiting Review of Systems Review of Systems: All systems reviewed & are unremarkable except as noted in Subjective Physical Exam Physical Exam: Physical Exam: Vitals signs as noted above General Appearance:Elderly, frail, no apparent distress Head: normocephalic, Atraumatic Eyes: normal inspection, EOMI Neck: supple, Trachea midline Respiratory/Chest: Normal breath sounds, CTA, No accessory muscle use Cardiovascular:Irregularly Irregular, + murmur, +Pacer Abdomen/GI:Soft, Non tender, Bowel sounds present 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0) % Plt Count 215 (130-400) K/uL [facility] 09/30/22 04:10 Sodium 140 Potassium 4.2 Chloride 111 H Carbon Dioxide 24 BUN 15 Creatinine 0.83 Glucose 81 Calcium 8.3 L (1) Hypotension Hypotension type: unspecified hypotension type Qualified Code(s): I95.9 - Hypotension, unspecified
[2022-09-30] MEDS: METHENAMINE HIPPURATE 1 GM TAB PO SCH (22:09)
[2022-10-01] MEDS: HEPARIN SOD 5,000 UNIT/0.5 ML VIAL SQ SCH ×2 (06:14→13:50)
[2022-10-01] MEDS: LEVOTHYROXINE SODIUM 50 MCG TABLET PO SCH (06:14)
[2022-10-01] MEDS: INSULIN ASPART PER UNIT CHARGE SC SCH ×2 (08:31→11:56)
[2022-10-01] MEDS: FERROUS SULFATE 325 MG TAB PO SCH (08:33)
[2022-10-01] MEDS: CITALOPRAM 40 MG TAB PO SCH (08:33)
[2022-10-01] MEDS: CLOPIDOGREL BISULFATE 75 MG TAB PO SCH (08:33)
[2022-10-01] MEDS: MIDODRINE HCL 2.5 MG TAB PO SCH ×2 (08:33→11:58)
[2022-10-01] MEDS: MULTIVITAMIN TAB PO SCH (08:33)
[2022-10-01] MEDS: FAMOTIDINE 20 MG TAB PO SCH (08:34)
[2022-10-01] MEDS: ACETAMINOPHEN 325 MG TAB PO PRN (08:36)
[2022-10-01] MEDS: DOCUSATE SODIUM/SENNA 50/8.6MG TAB PO SCH (08:50)
--- NOTE | 2022-10-01 13:08 | Hospitalist Progress Note ---
Date of Service October 01, 2022 Assessment & Plan (1) Hypotension: Plan: Hypotension likely multifactorial Ruled out sepsis Possible UTI ?ColonizationH/O ESBL E coli Dehydration Abnormal CT scan:Likely constipation, Less likely perforated bowel --CT ABD:Prominence of the wall of the rectum may be secondary to under distention versus proctitis. Subacute appearing fractures of the left superior and inferior pubic rami. Subacute fractures of the sacrum. Nonspecific small gas foci along the anterior abdominal wall. Question any recent procedure versus viscous perforation. --Lactic acid 0.8 -- Blood Culture:Negative to date --urine culture: Not contributory --Repeat Urine Culture: Negative Empirically received 3 day course of ertapenem Hold diuretics for now Appreciate Surgery Input Continue bowel regimen for constipation Started on Midodrine BP stable Plan to discharge to personal care facility today Acute kidney injury on CKD III Diuretics held Monitor renal function Avoid nephrotoxic agents as able Creatinine levels normalized Subacute pelvic fracture Subacute sacral fracture Right Ankle pain Secondary to fall Diagnosed in August 2022 --Pelvic X ray:Degenerative changes and findings of old left femur fracture with no evidence of acute fracture. --Lumbar Spine:Degenerative changes as above without acute fracture or subluxation. --CT:Subacute appearing fractures of the left superior and inferior pubic rami. Subacute fractures of the sacrum. --R ankle X ray:No acute fracture or dislocation within the right ankle. Soft tissue swelling within the right ankle. Questionable lucency at the head of the right fifth metatarsal on image 1 is not confirmed on additional views and may be due to overlying artifact. Clinical correlation recommended to assess for pain at this location. Fall precautions continue PT OT: Recommends SNF Pain control as needed Headache Chronic blurry vision as per patient --CT head:No acute intracranial hemorrhage, no evidence of acute territorial infarction or other acute intracranial disease process. Follows with head host/hostess as outpatient Resolved Hypokalemia Replete electrolytes as needed Abdominal aortic aneurysm --CT:Atherosclerotic changes of the aorta. Mild ectasia of the ascending thoracic aorta measuring 4.0 cm in diameter. No aortic dissection. Follow-up as outpatient H/O Chronic diastolic heart failure SSS S/P PPM H/O CAD S/P stent Valvular heart disease (mild aortic stenosis, moderate TR, severe mitral stenosis TTE, 2022) Pulmonary hypertension Pacemaker functioning appropriately per cardiology Continue to hold diuretics while hospitalized Monitor Volume status Continue Plavix Persistent atrial fibrillation Off anticoagulation secondary to fall risk Previously on metoprolol succinate 12.5 mg daily Rate controlled Resume metoprolol if BP tolerates DM II Last HbA1c 7.2 Continue insulin Monitor BGs Hypothyroidism Continue levothyroxine Chronic anemia Myelodysplastic syndrome Monitor CBC DEEPAK off CPAP since 2009 after weight loss post gastric bypass as per records DVT Px: Heparin SQ Code Status DNR/DNI Disposition Refused by Insurance for SNF Plan to discharge back to personal care facility today Plan Admission and Anticipated Discharge Date Admission Date: September 26, 2022 Subjective Patient is seen and examined at bedside States her sacral, pelvic pain much improved Reports minimal sore throat this morning No other complaints Lying in bed comfortably during my encounter Denies any chest pain, dizziness, nausea, vomiting Plan to discharge to personal care facility today Review of Systems Review of Systems: All systems reviewed & are unremarkable except as noted in Subjective Physical Exam Physical Exam: Physical Exam: Vitals signs as noted above General Appearance:Elderly, frail, no apparent distress Head: normocephalic, Atraumatic Eyes: normal inspection, EOMI Neck: supple, Trachea midline Respiratory/Chest: Normal breath sounds, CTA, No accessory muscle use Cardiovascular:Irregularly Irregular, + murmur, +Pacer Abdomen/GI:Soft, Non tender, Bowel sounds present 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 Extremities/Musculoskeletal:normal inspection, 1+ B/L LE edema, R ankle tender Neurologic/Psych:AAOX3, grossly no focal neurological deficits Skin: normal color, warm Results & Data Results & Data Vital Signs (Past 12 Hours) Vital Signs Temp Pulse Pulse Pulse Resp BP Pulse Ox 10/01/22 11:55 36.5 C 65 16 122/69 98 10/01/22 08:16 74 10/01/22 07:26 36.8 C 71 16 133/69 96 10/01/22 02:27 36.6 C 71 18 126/72 98 O2 Del Method 10/01/22 11:55 Room Air 10/01/22 08:16 10/01/22 07:26 Room Air 10/01/22 02:27 Room Air (1) Hypotension Hypotension type: unspecified hypotension type Qualified Code(s): I95.9 - Hypotension, unspecified
--- NOTE | 2022-10-01 13:28 | Discharge Summary ---
Date of Service October 01, 2022 Admission HPI Per Admitting Provider History obtained from patient, family, and records. Medical history significant for chronic diastolic heart failure (EF 70%, TTE 2022), SSS sp PPM/PAF off anticoagulation secondary to fall risk, CAD status post stent, valvular heart disease (mild aortic stenosis, moderate TR, severe mitral stenosis TTE, 2022), hypertension, hyperlipidemia, pulmonary hypertension, DEEPAK (off CPAP since 2009 after weight loss post gastric bypass as per records), DM 2 insulin requiring, hypothyroidism, chronic anemia (baseline hemoglobin 9-10), mood disorder myelodysplastic syndrome as per records, recurrent UTIs on chronic antibiotic suppression, hx ESBL/VRE as per records. Recent confinement last month secondary to close pelvic/sacral noted to be low with hematoma secondary to fall. Supratherapeutic INR on admission. No surgical management. ESBL E. coli UTI noted during confinement. No antibiotic treatment due to suspected colonization. Patient Coumadin stopped on discharged and has not been resumed. Last week, patient started complaining of pain on her behind the family and [facility] providers. Possible fall as per son account. Blood pressure noted to be low at [facility]. Lowest SBP of 50s. Patient denies headache, chest pain, SOB, abdominal pain. Admits to constipation. Admits to some dizziness described as lightheadedness. PCP discontinued metoprolol and spironolactone. Home furosemide continued. Midodrine initiation contemplated. Outpatient cardiology follow-up plan for pacemaker check as per son. Patient noted to be weaker today and slightly more confused than usual. SBP 90s upon arrival at the ER Patient looks much better after IV fluids as per son. Admission Exam Per Admitting Provider GENERAL: Pleasant, oriented to day, slightly hard of hearing, no respiratory distress SKIN: Pallor, warm HEENT: Pale palpebral conjunctivae, no ptosis, dry buccal mucosa NECK : Supple, no tenderness CHEST : Decreased breath sounds, no tenderness HEART : Irregular, systolic murmur over second right intercostal space ABDOMEN: Some distention, nontender EXTREMITIES : Minimal LE swelling, no LE tenderness NEUROLOGIC : Coherent, no facial asymmetry, mild hearing impairment, gait and stance not assessed Principal Diagnosis Hypotension Acute kidney injury Subacute pelvic fracture Subacute sacral fracture Discharge Data Allergies Allergy/AdvReac Type Severity Reaction Status Date / Time adhesive Allergy Unknown ADHESIVE Verified 02/20/22 09:19 TAPE Consultations 09/26/22 21:38 ED Decision to Admit Stat 09/26/22 23:08 Consult Cardiology Routine 09/26/22 23:16 Consult General Surgery Routine Procedures Performed Laboratory Results WBC 3.03 K/ul (4.8-10.8) L 09/30/22 04:10 RBC 3.06 M/uL (4.20-5.40) L 09/30/22 04:10 Hgb 9.5 g/dl (12.0-16.0) L 09/30/22 04:10 Hct 28.9 % (37.0-47.0) L 09/30/22 04:10 MCV 94.4 fL (80.0-100.0) 09/30/22 04:10 MCH 31.0 pg (25.0-34.0) 09/30/22 04:10 MCHC 32.9 g/dL (32.0-36.0) 09/30/22 04:10 RDW Std Deviation 48.8 fL (36.4-46.3) H 09/30/22 04:10 RDW Coeff of [place] 14.3 % (11.5-14.5) 09/30/22 04:10 Plt Count 215 K/uL (130-400) 09/30/22 04:10 MPV 10.5 fL (9.4-12.4) 09/30/22 04:10 Immature Gran % (Auto) 0.7 % 09/30/22 04:10 Neut % (Auto) 58.3 % 09/30/22 04:10 Lymph % (Auto) 27.4 % 09/30/22 04:10 [place] % (Auto) 9.6 % 09/30/22 04:10 Eos % (Auto) 2.3 % 09/30/22 04:10 Baso % (Auto) 1.7 % 09/30/22 04:10 Neut # (Auto) 1.77 K/uL (1.40-6.50) 09/30/22 04:10 Lymph # (Auto) 0.83 K/uL (1.2-3.4) L 09/30/22 04:10 [place] # (Auto) 0.29 K/uL (0.11-0.59) 09/30/22 04:10 Eos # (Auto) 0.07 K/uL (0-0.50) 09/30/22 04:10 Baso # (Auto) 0.05 K/uL (0-0.2) 09/30/22 04:10 Immature Gran # (Auto) 0.02 K/uL (0.01-0.20) 09/30/22 04:10 PT 11.0 Seconds (9.0-12.0) 09/26/22 19:15 INR 1.0 (0.9-1.1) 09/26/22 19:15 APTT 26.3 Seconds (21.0-31.0) 09/26/22 19:15 PTT Ratio 0.9 09/26/22 19:15 Sodium 140 mmol/L (136-145) 09/30/22 04:10 Potassium 4.2 mmol/L (3.5-5.1) 09/30/22 04:10 Chloride 111 mmol/L (98-107) H 09/30/22 04:10 Carbon Dioxide 24 mmol/L (21-32) 09/30/22 04:10 Anion Gap 5 (3-11) 09/30/22 04:10 BUN 15 mg/dl (6-23) 09/30/22 04:10 Creatinine 0.83 mg/dl (0.6-1.2) 09/30/22 04:10 Est Cr Clr Drug Dosing 45.3 ml/min 09/30/22 04:10 Est GFR ( Amer) 75.6 ml/min 09/30/22 04:10 Est GFR (Non-Af Amer) 65.2 ml/min 09/30/22 04:10 BUN/Creatinine Ratio 18.1 (10-20) 09/30/22 04:10 Glucose 81 mg/dl (70-99(Fasting)) 09/30/22 04:10 POC Glucose 105 mg/dl (70-99) H 10/01/22 11:23 Lactate 0.6 mmol/L (0.4-2.0) 09/30/22 04:20 Calcium 8.3 mg/dl (8.6-10.3) L 09/30/22 04:10 Magnesium 2.1 mg/dl (1.7-2.4) 09/30/22 04:10 Total Bilirubin 0.6 mg/dl (0.2-1.0) 09/26/22 17:45 AST 15 U/L (13-39) 09/26/22 19:15 ALT 11 U/L (7-52) 09/26/22 17:45 Alkaline Phosphatase 181 U/L (34-104) H 09/26/22 17:45 Troponin I High Sens 21.0 pg/ml (0-14) H 09/26/22 19:16 Total Protein 7.3 gm/dl (6.0-8.3) 09/26/22 17:45 Albumin 3.9 gm/dl (3.4-5.0) 09/26/22 17:45 Globulin 3.4 gm/dl (2.5-4.0) 09/26/22 17:45 Albumin/Globulin Ratio 1.1 (0.9-2) 09/26/22 17:45 TSH 1.992 uIu/ml (0.300-4.500) 09/26/22 19:15 Urine Color Yellow 09/27/22 05:50 Urine Appearance Slightly Cloudy (Clear) 09/27/22 05:50 Urine pH 6.0 (4.5-7.5) 09/27/22 05:50 Ur Specific [place] 1.010 (1.000-1.030) 09/27/22 05:50 Urine Protein 1+ (Negative) H 09/27/22 05:50 Urine Glucose (UA) Negative (Negative) 09/27/22 05:50 Urine Ketones Negative (Negative) 09/27/22 05:50 Urine Blood 1+ (Negative) H 09/27/22 05:50 Urine Nitrite Negative (Negative) 09/27/22 05:50 Urine Bilirubin Negative (Negative) 09/27/22 05:50 Urine Urobilinogen Negative (Negative) 09/27/22 05:50 Ur Leukocyte Esterase 3+ (Negative) H 09/27/22 05:50 Urine RBC 5-10 /hpf (0-4) H 09/27/22 05:50 Urine WBC >30 /hpf (0-5) H 09/27/22 05:50 Ur Epithelial Cells >30 /lpf (0-5) H 09/27/22 05:50 Urine Bacteria 3+ (Negative) H 09/27/22 05:50 Nasal Screen MRSA (PCR) Negative (Negative) 09/27/22 03:25 Stool Occult Bld Scrn Negative (Negative) 09/30/22 19:10 SARS-CoV-2, RNA, NAAT NEGATIVE (NEGATIVE) 09/27/22 00:30 Impressions Hip/Pelvis X-Ray 09/26/22 16:35 XR hip ELISEO 2v w pelvis CLINICAL HISTORY: s/p fall TECHNIQUE: 2 views of the bilateral hips and single frontal view of the pelvis were obtained. Comparison: None available at the time of this dictation. FINDINGS: There is no evidence of an acute fracture. Intramedullary misael is seen in the left femur with old healed fracture. Partial visualization of a total knee arthroplasty on the left. No soft tissue abnormality is seen. IMPRESSION: Degenerative changes and findings of old left femur fracture with no evidence of acute fracture. ACT 112: Negative or not required by law. Electronically signed by: Toñito Pappas M.D. 09/26/2022 5:43 PM Lumbar Spine X-Ray 09/26/22 16:35 XR lumbar spine min 4V routine CLINICAL HISTORY: s/p fall TECHNIQUE: 5 views of the lumbar spine were obtained. Comparison: None available at the time of this dictation. FINDINGS: There is no evidence of an acute fracture. Degenerative changes are seen in the lumbar spine. The alignment is normal. Vascular calcifications are noted. IMPRESSION: Degenerative changes as above without acute fracture or subluxation. ACT 112: Negative or not required by law. Electronically signed by: Toñito Pappas M.D. 09/26/2022 5:34 PM Chest X-Ray 09/26/22 16:36 XR chest 1V not portable CLINICAL HISTORY: weakness TECHNIQUE: Single frontal radiograph of the chest was obtained. Comparison: Comparison is made to chest radiograph 08/20/2022 FINDINGS: Dual lead pacemaker is seen. Cardiomegaly is noted. The aortic arch is calcified. The lungs are clear. No evidence of pleural effusion or pneumothorax. IMPRESSION: No acute chest disease. ACT 112: Negative or not required by law. Electronically signed by: Toñito Pappas M.D. 09/26/2022 5:32 PM Abdomen/Pelvis CT 09/26/22 18:53 CR Exam(s): CT ABDOMEN + PELVIS With Contrast IV Amt: 90ml EXAM: CT Abdomen and Pelvis With Intravenous Contrast CLINICAL HISTORY: Reason for exam: fall, hypotension. TECHNIQUE: Axial computed tomography images of the abdomen and pelvis with intravenous contrast. CTDI is 16.24 mGy and DLP is 808.76 mGy-cm. Automated exposure control was utilized for the study. A dose lowering technique was utilized adhering to the principles of ALARA. CONTRAST: Patient received 90ml of IV contrast COMPARISON: CT abdomen/pelvis on 08/21/2022 FINDINGS: Lung bases: Please see accompanying CT chest. ABDOMEN: Liver: Unremarkable. No mass. Gallbladder and bile ducts: Prior cholecystectomy. Probable postcholecystectomy ductal ectasia. Pancreas: Atrophy of the pancreas. No ductal dilation. Spleen: Unremarkable. No splenomegaly. Adrenals: Unremarkable. No mass. Kidneys and ureters: Small hypodensities in the kidneys are too small to definitively characterize. No hydronephrosis. Stomach and bowel: Prominence of the wall of the rectum may be secondary to under distention versus proctitis. Gastric bypass changes. Evaluation of the stomach is limited by underdistention. No bowel obstruction or inflammation. PELVIS: Appendix: Normal appendix. Bladder: Mildly distended bladder. No significant bladder wall thickening or stone. Reproductive: Prior hysterectomy. ABDOMEN and PELVIS: Intraperitoneal space: Unremarkable. No free air. No significant fluid collection. Bones/joints: Subacute appearing fractures of the left superior and inferior pubic rami. Subacute fractures of the sacrum. Intramedullary misael is fixation of the left femur. Dystrophic ossifications along the proximal femurs. Degenerative changes of the spine. No dislocation. Soft tissues: Nonspecific small gas foci along the anterior abdominal wall. Question any recent procedure versus viscous perforation. Vasculature: Extensive vascular calcifications. No abdominal aortic aneurysm. Lymph nodes: Unremarkable. No enlarged lymph nodes. IMPRESSION: 1. Prominence of the wall of the rectum may be secondary to under distention versus proctitis. 2. Subacute appearing fractures of the left superior and inferior pubic rami. Subacute fractures of the sacrum. 3. Nonspecific small gas foci along the anterior abdominal wall. Question any recent procedure versus viscous perforation. Communications: Call Doctor Pneumoperitoneum, new or unexpected Electronically signed by: Tha Russell M.D. 09/26/22 20:[address] 09/26/22 18:53 Exam(s): CT CHEST With Contrast EXAM: CT Chest With Intravenous Contrast CLINICAL HISTORY: Reason for exam: fall, hypotension. TECHNIQUE: Axial computed tomography images of the chest with intravenous contrast. CTDI is 14.81 mGy and DLP is 544.95 mGy-cm. Automated exposure control was utilized for the study. A dose lowering technique was utilized adhering to the principles of ALARA. CONTRAST: 90 cc of Optiray 320 COMPARISON: CT chest on 08/20/2022 FINDINGS: Lungs: Unremarkable. No pulmonary embolus identified. Pleural space: Unremarkable. No pneumothorax. No significant effusion. Heart: Mild cardiomegaly. Coronary artery, aortic valve, and mitral annular calcifications. Left-sided pacemaker. No significant pericardial effusion. Mediastinum: Esophagus is distended with gas and ingested material. Thyroid: Small hypodense nodules in the thyroid to be further evaluated with ultrasound if clinically indicated. Bones/joints: Degenerative changes of the spine. No acute fracture. No dislocation. Soft tissues: Unremarkable. Vasculature: Atherosclerotic changes of the aorta. Mild ectasia of the ascending thoracic aorta measuring 4.0 cm in diameter. No aortic dissection. Lymph nodes: Unremarkable. No enlarged lymph nodes. Stomach and bowel: Probable gastric bypass changes. IMPRESSION: 1. No pulmonary embolus identified. 2. Atherosclerotic changes of the aorta. Mild ectasia of the ascending thoracic aorta measuring 4.0 cm in diameter. No aortic dissection. 3. Esophagus is distended with gas and ingested material. 4. No acute pulmonary parenchymal abnormality identified. 5. No definite acute fracture. Electronically signed by: Tha Russell M.D. 09/26/22 20:15 PM Ankle X-Ray 09/27/22 11:01 XR ankle RT min 3V routine CLINICAL HISTORY: Right ankle pain/swelling, fall COMPARISON STUDY: None. FINDINGS: Soft tissue swelling within the right ankle. There are extensive vascular calcifications noted. The bones are osteopenic. 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 No acute fracture or dislocation within the right ankle. Fusion of the subtalar joint with 2 metallic rodrigo. There is a large plantar heel spur. Questionable lucency at the head of the right fifth metatarsal on image 1 is not confirmed on additional views and may be due to overlying artifact. IMPRESSION: 1. No acute fracture or dislocation within the right ankle. 2. Soft tissue swelling within the right ankle. 3. Questionable lucency at the head of the right fifth metatarsal on image 1 is not confirmed on additional views and may be due to overlying artifact. Clinical correlation recommended to assess for pain at this location. ACT 112: Negative or not required by law. Electronically signed by: Carmine Adan M.D. 09/27/2022 12:[address] 09/28/22 11:31 CT head/brain wo con CLINICAL HISTORY: headache, blurred vision Technique: Contiguous axial CT images of the head were acquired from the base of the skull to the vertex without intravenous contrast administration. Images were viewed in brain, subdural and bone windows. Automated dose lowering techniques and/or adjustment according to patient size were utilized for this exam. Comparison: Comparison is made to CT head 10/03/2019 Findings: Areas of decreased attenuation are present in the periventricular and subcortical white matter bilaterally consistent with small vessel ischemic disease. Generalized cerebral atrophy with commensurate enlargement of the ventricles, sulci, and cisterns is also present. There is no acute intracranial hemorrhage or evidence of acute territorial infarction. No shift of the midline structures, mass effect, or extra-axial abnormalities are shown. Atherosclerotic calcifications are present in the intracranial segments of the internal carotid arteries. Imaged portions of the paranasal sinuses and mastoid air cells are clear. The orbits appear normal. There are no acute fractures of the calvaria or scalp swelling. Impression: No acute intracranial hemorrhage, no evidence of acute territorial infarction or other acute intracranial disease process. ACT 112: Negative or not required by law. Electronically signed by: Toñito Pappas M.D. 09/28/2022 12:34 PM Ordered Studies 09/26/22 18:53 CT Abd and Pelvis [CT abd pelvis IV con only] Stat CT chest diagnostic w con Stat 09/28/22 11:31 CT head/brain wo con Urgent Hospital Course (1) Hypotension: Hypotension likely multifactorial Ruled out sepsis Possible UTI ?ColonizationH/O ESBL E coli Dehydration Abnormal CT scan:Likely constipation, Less likely perforated bowel --CT ABD:Prominence of the wall of the rectum may be secondary to under distention versus proctitis. Subacute appearing fractures of the left superior and inferior pubic rami. Subacute fractures of the sacrum. Nonspecific small gas foci along the anterior abdominal wall. Question any recent procedure versus viscous perforation. --Lactic acid 0.8 -- Blood Culture:Negative to date --urine culture: Not contributory --Repeat Urine Culture: Negative Empirically received 3 day course of ertapenem Hold diuretics for now Appreciate Surgery Input Continue bowel regimen for constipation Started on Midodrine BP stable Plan to discharge to personal care facility today Acute kidney injury on CKD III Diuretics held Monitor renal function Avoid nephrotoxic agents as able Creatinine levels normalized Subacute pelvic fracture Subacute sacral fracture Right Ankle pain Secondary to fall Diagnosed in August 2022 --Pelvic X ray:Degenerative changes and findings of old left femur fracture with no evidence of acute fracture. --Lumbar Spine:Degenerative changes as above without acute fracture or subluxation. --CT:Subacute appearing fractures of the left superior and inferior pubic rami. Subacute fractures of the sacrum. --R ankle X ray:No acute fracture or dislocation within the right ankle. Soft tissue swelling within the right ankle. Questionable lucency at the head of the right fifth metatarsal on image 1 is not confirmed on additional views and may be due to overlying artifact. Clinical correlation recommended to assess for pain at this location. Fall precautions continue PT OT: Recommends SNF Pain control as needed Headache Chronic blurry vision as per patient --CT head:No acute intracranial hemorrhage, no evidence of acute territorial infarction or other acute intracranial disease process. Follows with barber instructor as outpatient Resolved Hypokalemia Replete electrolytes as needed Abdominal aortic aneurysm --CT:Atherosclerotic changes of the aorta. Mild ectasia of the ascending thoracic aorta measuring 4.0 cm in diameter. No aortic dissection. Follow-up as outpatient H/O Chronic diastolic heart failure SSS S/P PPM H/O CAD S/P stent Valvular heart disease (mild aortic stenosis, moderate TR, severe mitral stenosis TTE, 2022) Pulmonary hypertension Pacemaker functioning appropriately per cardiology Continue to hold diuretics while hospitalized Monitor Volume status Continue Plavix Persistent atrial fibrillation Off anticoagulation secondary to fall risk Previously on metoprolol succinate 12.5 mg daily Rate controlled Resume metoprolol if BP tolerates DM II Last HbA1c 7.2 Continue insulin Monitor BGs Hypothyroidism Continue levothyroxine Chronic anemia Myelodysplastic syndrome Monitor CBC DEEPAK off CPAP since 2009 after weight loss post gastric bypass as per records DVT Px: Heparin SQ Code Status DNR/DNI Disposition Refused by Insurance for SNF Plan to discharge back to personal care facility today Plan Total Time Total Time Spent Total Time Spent (In Minutes): 56 minutes Discharge Plan Discharge Items Patient Disposition: Personal [facility] Reason For Visit: ARF, HYPOTENSION Discharge Diagnosis: Hypotension Acute kidney injury Subacute pelvic fracture Subacute sacral fracture Activity: Per Instructions section Exercise/Sports: Wait until after follow-up appointment Non-emergency contact: Primary Care Provider Call non-emergency contact if: you have any medication questions Follow-up/Referrals: Aixa Sales [Primary Care Provider] - Diet: Carb Consistent or DM2 and Heart Healthy Addtl Attending Provider Instructions: Follow-up with your primary care physician in 1 week as advised --- Your final blood culture results are pending at the time of discharge. Follow-up with your physician for results. ---Your furosemide is held during your hospital stay due to low blood pressure. Discuss with your physician for further instructions as to when to restart your furosemide. --- Consider starting Metoprolol succinate 12.5 mg daily for atrial fibrillation if your blood pressure tolerates. Seek immediate medical attention if your symptoms reoccur or worsen Please take all medications as instructed on discharge list below. Please call if you have any questions or problems. You can reach a [facility] hospitalist on duty at [facility] 24 hours a day by calling [phone] Pending Studies at Discharge: Yes Studies:: Blood Cultures Stand-Alone Forms: My [facility] [place], Smoking Cessation Skilled Items Patient informed of condition?: Yes DNR: Yes Discharge Level of Care: Other Communicable Disease: No Discharge Prognosis: Stable Lines: None Urinary Catheter: No Medications and DC Order Prescriptions: New midodrine 2.5 mg Tablet 2.5 mg PO TID@0800,1200,1700 Qty: 90 0RF Continued acetaminophen 325 mg Tablet 650 mg PO Q6 Qty: 30 0RF enoxaparin [Lovenox] 40 mg/0.4 mL Syringe 40 mg subcut QAM Qty: 4 0RF multivitamin [Daily-Nori] Tablet 1 tab PO DAILY Qty: 30 0RF citalopram 40 mg Tablet 40 mg PO QAM Qty: 30 0RF clopidogrel 75 mg Tablet 75 mg PO QAM Qty: 30 0RF methenamine hippurate 1 gram Tablet 1 g PO HS Qty: 30 0RF famotidine 20 mg Tablet 20 mg PO QAM Qty: 30 0RF levothyroxine [Synthroid] 50 mcg Tablet 50 mcg PO DAILYBB Qty: 30 0RF ferrous sulfate 325 mg (65 mg iron) Tablet,Delayed Release (Dr/Ec) 325 mg PO BID Qty: 60 0RF insulin glargine [Lantus Solostar U-100 Insulin] 100 unit/mL (3 mL) Insulin Pen 5 unit SC DAILY Qty: 10 0RF riboflavin (vitamin B2) 400 mg Tablet 400 mg PO HS Qty: 30 0RF magnesium oxide 400 mg magnesium Tablet 400 mg PO HS Qty: 60 0RF Held furosemide 20 mg Tablet 20 mg PO QAM Qty: 30 0RF Hold Instructions: Until follow up with PCP Discharge Orders: Discharge Order (Routine); Ordered 10/01/22 Ordered By: José Miguel Coleman Admission Data Admit Date/Time: 09/26/22 23:06 Attending Provider: José Miguel Coleman Admit Provider: Alexey De La Rosa Primary Care Provider: Aixa Sales [facility] Other Providers: Daniella Cates ; Monty Thomas ; Ramon Arevalo ; Luis Pichardo ; Mich Gomez ; Felix Caraballo ; Gamaliel Matthews ; Uzma Carrasco ; Summer Calles ; Daniella Sloan ; Valentino eKyes ; Brianna Garcia ; Alexey De La Rosa ; Bridget Acevedo ; [facility]
== END 2022-10-01 16:51 | disposition home or self-care (01) | DRG 315 ==
LOC: ED 16:10 → 2S 23:06